=== PATIENT | male | born 1960 | race Caucasian/White ===

== ENCOUNTER 2016-11-22 14:15 | Inpatient (IN) | payer SELFPAY ==
[2016-11-22] VITALS (12 sets, daily range): BP systolic 107–148; BP diastolic 59–78; PULSE 86–105; RESP 18; TEMP 97.5–100.8; O2SAT 98–100
[~2016-11-22] VITALS: Ht 182.9 cm; Wt 70.5 kg
[~2016-11-22 14:15] MED LIST: ALBU8I INH; CEPH500C3 PO; LORTA5 PO; METO50 PO; ST J81CH PO
--- NOTE | 2016-11-22 15:13 | PD ---
HPI Chief Complaint: Respiratory Symptoms Time Seen by Provider: 15:13 Travel History International Travel<30 days: No Contact w/Intl Traveler<30days: No Traveled to known affect area: No History of Present Illness HPI 55 YO M with PMH of CAD, CKD presents to the ED for evaluation of 4 week history of increasing weakness and dyspnea on exertion. Patient endorses history of fevers at the beginning of the illness that have since resolved. He endorses low appetite and multiple episodes of watery diarrhea daily. He endorses mild, frontal headache 4 days which is similar to previous headaches. He denies dizziness, vision changes, abdominal pain, nausea, vomiting, dysuria , hematochezia, melena. 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 He denies recent antibiotic use. PFSH Past Medical History Anxiety: Yes Depression: No Cancer: No Cardiovascular Problems: Yes Chest Pain: Yes Endocrine: No Gastrointestinal Disorders: Yes Genitourinary: No Immune Disorder: No Musculoskeletal: No Neurologic: No Psychiatric: No Reproductive: No Respiratory: Yes Immunizations Current: No Past Surgical History AICD: No Cardiac Surgery: Yes (THREE VESSEL BYPASS) Joint Replacement: No Pacemaker: No Social History Alcohol Use: No Tobacco Use: No (MAY 17, 2013) Substance Use: No Allergies-Medications (Allergen,Severity, Reaction): Coded Allergies: No Known Allergies (Unverified , 09/26/13) Reported Meds & Prescriptions Reported Meds & Active Scripts Active Reported B Complex (B-Complex Vitamins) 1 Cap 1 Cap PO DAILY Folic Acid 400 Mcg Tab 400 Mcg PO DAILY Review of Systems Except as stated in HPI: all other systems reviewed are Neg Physical Exam Narrative GENERAL: Chronically ill-appearing white male in no acute distress. SKIN: Focused skin assessment warm/dry. HEAD: Normocephalic. EYES: No scleral icterus. No injection or drainage. NECK: Supple, trachea midline. No JVD or lymphadenopathy. CARDIOVASCULAR: Regular rate and rhythm without murmurs, gallops, or rubs. RESPIRATORY: Breath sounds clear and equal bilaterally. No accessory muscle use. GASTROINTESTINAL: Abdomen soft, non-tender, nondistended. Active bowel sounds. RECTAL EXAM: No masses or tenderness, stool is brown. Guaiac positive. MUSCULOSKELETAL: No cyanosis, or edema. BACK: Nontender without obvious deformity. No CVA tenderness. Data Data Last Documented VS Vital Signs Date Time Temp Pulse Resp B/P Pulse Ox O2 Delivery O2 Flow Rate FiO2 11/22/16 15:48 100.8 92 18 148/76 100 Nasal Cannula 2 Orders Complete Blood Count With Diff (11/22/16 14:47) Comprehensive Metabolic Panel (11/22/16 14:47) B-Type Natriuretic Peptide (11/22/16 14:47) Act Partial Throm Time (Ptt) (11/22/16 14:47) Prothrombin Time / Inr (Pt) (11/22/16 14:47) Magnesium (Mg) (11/22/16 14:47) Ckmb (Isoenzyme) Profile (11/22/16 14:47) Troponin I (11/22/16 14:47) Urinalysis - C+S If Indicated (11/22/16 14:47) Blood Culture (11/22/16 14:47) Iv Access Insert/Monitor (11/22/16 14:47) Electrocardiogram (11/22/16 14:47) Ecg Monitoring (11/22/16 14:47) Oximetry (11/22/16 14:47) Chest, Single Ap (11/22/16 14:47) Sodium Chloride 0.9% Flush (Ns Flush) (11/22/16 15:00) Enteric Path (Stool) (11/22/16 14:47) Sodium Chlor 0.9% 1000 Ml Inj (Ns 1000 M (11/22/16 15:30) Urine Culture (11/22/16 15:00) Type And Screen (11/22/16 16:11) Red Blood Cells (Rbc) (11/22/16 16:11) Blood Product Administration .UPON TRANSFUSION (11/22/16 16:11) Sodium Chlor 0.9% 250 Ml Inj (Ns 250 Ml (11/22/16 16:15) Pantoprazole Inj (Protonix Inj) (11/22/16 16:15) Pantoprazole Inj (Protonix Inj) (11/22/16 16:15) Lactic Acid Sepsis Protocol (11/22/16 16:15) Ceftriaxone Inj (Rocephin Inj) (11/22/16 16:15) Azithromycin Inj (Zithromax Inj) (11/22/16 16:15) Acetaminophen (Tylenol) (11/22/16 16:30) CKMB (11/22/16 15:10) CKMB% (11/22/16 15:10) Sodium Chlor 0.9% 1000 Ml Inj (Ns 1000 M (11/22/16 16:27) Sodium Chlor 0.9% 1000 Ml Inj (Ns 1000 M (11/22/16 16:27) Sodium Chlor 0.9% 1000 Ml Inj (Ns 1000 M (11/22/16 16:27) Urinary Catheter Management MIKE.Q8H (11/22/16 16:36) Consult Nephrology (11/22/16 ) Consult Gastroenterology (11/22/16 ) Sodium Bicarbonate 8.4% Inj (Sodium Bica (11/22/16 16:45) Admit Order (Ed Use Only) (11/22/16 17:02) Comprehensive Metabolic Panel (11/22/16 17:03) Complement C3 (11/22/16 17:03) Complement C4 (11/22/16 17:03) Parathyroid Hormone Intact (11/22/16 17:03) Phosphorus (Po4) (11/22/16 17:03) Sodium, Random Urine (11/22/16 17:03) Urine For Eosinophils (11/22/16 17:03) Creatinine, Random Urine (11/22/16 17:03) Us Kidney/Renal/Bladder (11/22/16 ) Labs Laboratory Tests Test 11/22/16 11/22/16 15:00 15:10 Urine Color YELLOW Urine Turbidity HAZY Urine pH 6.0 Urine Specific [place] 1.015 Urine Protein 300 mg/dL Urine Glucose (UA) 300 mg/dL Urine Ketones 10 mg/dL Urine Occult Blood MOD Urine Nitrite NEG Urine Bilirubin NEG Urine Urobilinogen LESS THAN 2.0 MG/DL Urine Leukocyte Esterase NEG Urine RBC 1 /hpf Urine WBC 9 /hpf Urine Squamous Epithelial 1 /hpf Cells Urine Amorphous Sediment MOD Microscopic Urinalysis Comment CULTURE INDICATED White Blood Count 19.2 TH/MM3 Red Blood Count 1.85 MIL/MM3 Hemoglobin 6.1 GM/DL Hematocrit 18.4 % Mean Corpuscular Volume 99.4 FL Mean Corpuscular Hemoglobin 32.7 PG Mean Corpuscular Hemoglobin 32.9 % Concent Red Cell Distribution Width 13.4 % Platelet Count 317 TH/MM3 Mean Platelet Volume 8.7 FL Neutrophils (%) (Auto) 92.7 % Lymphocytes (%) (Auto) 3.0 % Monocytes (%) (Auto) 4.0 % Eosinophils (%) (Auto) 0.0 % Basophils (%) (Auto) 0.3 % Neutrophils # (Auto) 17.8 TH/MM3 Lymphocytes # (Auto) 0.6 TH/MM3 Monocytes # (Auto) 0.8 TH/MM3 Eosinophils # (Auto) 0.0 TH/MM3 Basophils # (Auto) 0.1 TH/MM3 CBC Comment AUTO DIFF Differential Comment AUTO DIFF CONFIRMED Prothrombin Time 11.9 SEC Prothromb Time International 1.1 RATIO Ratio Activated Partial 33.4 SEC Thromboplast Time Sodium Level 137 MEQ/L Potassium Level 3.2 MEQ/L Chloride Level 102 MEQ/L Carbon Dioxide Level 13.0 MEQ/L Anion Gap 22 MEQ/L Blood Urea Nitrogen 100 MG/DL Creatinine 16.71 MG/DL Estimat Glomerular Filtration 3 ML/MIN Rate Random Glucose 103 MG/DL Calcium Level 8.0 MG/DL Magnesium Level 2.1 MG/DL Total Bilirubin 0.3 MG/DL Aspartate Amino Transf 23 U/L (AST/SGOT) Alanine Aminotransferase 26 U/L (ALT/SGPT) Alkaline Phosphatase 89 U/L Total Creatine Kinase 157 U/L Creatine Kinase MB 2.4 NG/ML Troponin I 0.03 NG/ML Total Protein 6.6 GM/DL Albumin 1.5 GM/DL MDM Medical Decision Making Medical Screen Exam Complete: Yes Emergency Medical Condition: Yes Differential Diagnosis Metabolic derangement versus infectious diarrhea versus pneumonia versus anemia versus other Narrative Course 55-year-old male with PMH of COPD presents to the ED for evaluation of 4 week history of increased weakness, shortness of breath. Patient endorses multiple episodes of watery stool daily. He endorses exposure to C. 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 No recent antibiotic use. Denies melena, hematochezia. He's never had a colonoscopy. Vitals reviewed. Patient is febrile, tachycardic on presentation. Skull exam reveals a dusky, chronically ill-appearing white male in no acute distress. Chest CTAB. Abdomen soft and nontender. No lower extremity edema. Rectal exam guaiac positive. IV was established. Patient was administered 1 L normal saline, Protonix bolus and Protonix drip initiated. Blood cultures drawn. WBC: 19.2 with left shift. Hemoglobin 6.1. Hematocrit 18.4. INR 1.1. CMP: BUN 100, creatinine 16.71. Lactate: pending UA: 9 WBCs, culture pending. EKG: Rate 93, sinus rhythm. HI interval 154, QRS 98, QTC 426. Normal axis. No acute ST changes. Reviewed by Dr. Archer. Cardiac enzymes: Negative 1 CXR: Dense airspace process RIGHT lung, highly suspicious for pneumonia. 2 units packed red blood cells ordered and will be administered in the ED. Sepsis fluid protocol initiated. IV ceftriaxone and Zithromax , PO Tylenol administered. The patient meets severe sepsis criteria due to PNA, GI bleed, SEJAL. I spoke with Dr. Dallas, nephrology, who recommended Herbert insertion and will consult on the patient. GI consult placed. Will admit the patient to the medicine service. Please see medicine and nephro notes for disposition. HemaPrompt Point of Care Internal Pos. & Neg. Controls: Passed Fecal Specimen Occult Blood: Positive Sepsis Criteria SIRS Criteria (2 or more): Heart rate over 90, WBC > 67710, < 4000 or > 10% bands Sepsis Criteria (SIRS+source): Infect source susp/known Severe Sepsis (+one): Acute Oliguria/Renal Failure Zoe Heard Nov 22, 2016 15:13
[2016-11-22] MEDS ORDERED: SODIUM CHLOR 0.9% 1000 ML INJ 1,000 ML IV ONE ×3 (15:30→16:27)
[2016-11-22] MEDS ORDERED: FOLI400T PO (15:45)
[2016-11-22] MEDS ORDERED: VITACAP7 PO (15:45)
[2016-11-22 15:58] LABS: AUTOMATED NEUTROPHIL # 17.8 TH/MM3 (1.8-7.7); BASOPHIL # 0.1 TH/MM3 (0-0.2); BASOPHIL % 0.3 % (0.0-2.0); LYMPHOCYTE # 0.6 TH/MM3 (1.0-4.8); MEAN CELL VOLUME 99.4 FL (80.0-100.0); MEAN CORPUSCULAR HEMOGLOBIN 32.7 PG (27.0-34.0); MEAN CORPUSCULAR HGB CONC 32.9 % (32.0-36.0); NEUT % 92.7 % (16.0-70.0); PLATELET COUNT 317 TH/MM3 (150-450); RED BLOOD COUNT 1.85 MIL/MM3 (4.50-5.90); RED CELL DISTRIBUTION WIDTH 13.4 % (11.6-17.2); WHITE BLOOD COUNT 19.2 TH/MM3 (4.0-11.0)
[2016-11-22 16:05] LABS: BLOOD, URINE MOD (NEG); GLUCOSE,URINE 300 mg/dL (NEG); KETONE, URINE 10 mg/dL (NEG); NITRITE,URINE NEG (NEG); SQUAMOUS EPITHELIAL CELL URINE 1 /hpf (0-5); URINE COLOR YELLOW (YELLW/STRAW)
--- NOTE | 2016-11-22 16:05 | RADRPT ---
EXAM DATE/TIME: 11/22/2016 15:09 [facility] COMPARISON: CHEST SINGLE AP, August 04, 2013, 16:54. INDICATIONS : Chest pain and shortness of breath. MEDICAL HISTORY : Chronic obstructive pulmonary disease. Myocardial infarction. Hypertension. Flail chest. SURGICAL HISTORY : Triple bypass. ENCOUNTER: Initial ACUITY: 1 month PAIN SCORE: 9/10 LOCATION: Bilateral chest FINDINGS: There is dense airspace consolidation in right mid and upper lung extending to the pleural surfaces l aterally not present previously. Background of extensive COPD is seen. There is evidence for prior me tyra sternotomy. Heart and mediastinum are unremarkable for technique. CONCLUSION: Dense airspace process right lung highly suspicious for pneumonia. Obdulia Garcia MD on November 22, 2016 at 16:03 Board Certified Radiologist. This report was verified electronically.
[2016-11-22 16:06] LABS: COMMENT (UR) CULTURE INDICATED; CULTURE IF INDICATED CULTURE INDICATED
[2016-11-22 16:09] LABS: APTT (PATIENT) 33.4 SEC (24.3-30.1); HEMO FLAGS AUTO DIFF; INTERNATIONAL NORMALIZED RATIO 1.1 RATIO; PROTHROMBIN TIME - PATIENT 11.9 SEC (9.8-11.6)
[2016-11-22 16:11] LABS: HEMATOCRIT 18.4 % (39.0-51.0)
[2016-11-22 16:13] LABS: ANION GAP 22 MEQ/L (5-15); AST (GOT) 23 U/L (15-37); BLOOD UREA NITROGEN 100 MG/DL (7-18); CHLORIDE 102 MEQ/L (98-107); GLOMERULAR FILTRATION RATE 3 ML/MIN (>89); MAGNESIUM 2.1 MG/DL (1.5-2.5); POTASSIUM 3.2 MEQ/L (3.5-5.1); SODIUM (NA) 137 MEQ/L (136-145)
[2016-11-22] MEDS ORDERED: PANTOPRAZOLE INJ 80 MG in SODIUM CHLORIDE 0.9% INJ 35 ML IV ONE (16:15)
[2016-11-22] MEDS ORDERED: cefTRIAXone INJ 2,000 MG in SODIUM CHLORIDE 0.9% INJ 100 ML IV STA (16:15)
[2016-11-22] MEDS ORDERED: SODIUM CHLOR 0.9% 250 ML INJ 250 ML IV ONE ×2 (16:15→18:15)
[2016-11-22] MEDS ORDERED: AZITHROMYCIN INJ 500 MG in SODIUM CHLOR 0.9% 250 ML INJ 250 ML IV STA (16:15)
[2016-11-22 16:16] LABS: ALKALINE PHOSPHATASE 89 U/L (45-117); ALT (GPT) 26 U/L (12-78); CREATINE KINASE 157 U/L (39-308); TOTAL BILIRUBIN ADULT 0.3 MG/DL (0.2-1.0)
[2016-11-22] MEDS ORDERED: SODIUM CHLOR 0.9% 1000 ML INJ 400 ML IV ONE (16:27)
[2016-11-22] MEDS ORDERED: ACETAMINOPHEN 325 MG TAB PO ONE (16:30)
[2016-11-22] MEDS ORDERED: SODIUM BICARBONATE 8.4% INJ 50 MEQ/50 ML SYR IV PUSH ONE (16:45)
[2016-11-22 16:46] LABS: CKMB 2.4 NG/ML (0.5-3.6)
[2016-11-22 17:01] LABS: SCAN/DIFF AUTO DIFF CONFIRMED
[2016-11-22] MEDS: PANTOPRAZOLE INJ 80 MG in SODIUM CHLORIDE 0.9% INJ 100 ML IV SCH (17:13)
--- NOTE | 2016-11-22 17:18 | PD ---
Physical Exam Narrative GENERAL: Well-nourished, well-developed patient. Pale SKIN: Warm and dry. HEAD: Normocephalic EYES: No injection or drainage. ENT: No nasal drainage noted. NECK: Supple, trachea midline. CARDIOVASCULAR: Regular rate and rhythm RESPIRATORY: No increased effort. No accessory muscle use. NEUROLOGICAL: Awake and alert. Moves all extremities. Normal speech. Data Data Last Documented VS Vital Signs Date Time Temp Pulse Resp B/P Pulse Ox O2 Delivery O2 Flow Rate FiO2 11/22/16 15:48 100.8 92 18 148/76 100 Nasal Cannula 2 Orders Complete Blood Count With Diff (11/22/16 14:47) Comprehensive Metabolic Panel (11/22/16 14:47) B-Type Natriuretic Peptide (11/22/16 14:47) Act Partial Throm Time (Ptt) (11/22/16 14:47) Prothrombin Time / Inr (Pt) (11/22/16 14:47) Magnesium (Mg) (11/22/16 14:47) Ckmb (Isoenzyme) Profile (11/22/16 14:47) Troponin I (11/22/16 14:47) Urinalysis - C+S If Indicated (11/22/16 14:47) Blood Culture (11/22/16 14:47) Iv Access Insert/Monitor (11/22/16 14:47) Electrocardiogram (11/22/16 14:47) Ecg Monitoring (11/22/16 14:47) Oximetry (11/22/16 14:47) Chest, Single Ap (11/22/16 14:47) Sodium Chloride 0.9% Flush (Ns Flush) (11/22/16 15:00) Enteric Path (Stool) (11/22/16 14:47) Sodium Chlor 0.9% 1000 Ml Inj (Ns 1000 M (11/22/16 15:30) Urine Culture (11/22/16 15:00) Type And Screen (11/22/16 16:11) Red Blood Cells (Rbc) (11/22/16 16:11) Blood Product Administration .UPON TRANSFUSION (11/22/16 16:11) Sodium Chlor 0.9% 250 Ml Inj (Ns 250 Ml (11/22/16 16:15) Pantoprazole Inj (Protonix Inj) (11/22/16 16:15) Pantoprazole Inj (Protonix Inj) (11/22/16 16:15) Lactic Acid Sepsis Protocol (11/22/16 16:15) Ceftriaxone Inj (Rocephin Inj) (11/22/16 16:15) Azithromycin Inj (Zithromax Inj) (11/22/16 16:15) Acetaminophen (Tylenol) (11/22/16 16:30) CKMB (11/22/16 15:10) CKMB% (11/22/16 15:10) Sodium Chlor 0.9% 1000 Ml Inj (Ns 1000 M (11/22/16 16:27) Sodium Chlor 0.9% 1000 Ml Inj (Ns 1000 M (11/22/16 16:27) Sodium Chlor 0.9% 1000 Ml Inj (Ns 1000 M (11/22/16 16:27) Urinary Catheter Management MIKE.Q8H (11/22/16 16:36) Consult Nephrology (11/22/16 ) Consult Gastroenterology (11/22/16 ) Sodium Bicarbonate 8.4% Inj (Sodium Bica (11/22/16 16:45) Admit Order (Ed Use Only) (11/22/16 17:02) Comprehensive Metabolic Panel (11/22/16 17:03) Complement C3 (11/22/16 17:03) Complement C4 (11/22/16 17:03) Parathyroid Hormone Intact (11/22/16 17:03) Phosphorus (Po4) (11/22/16 17:03) Sodium, Random Urine (11/22/16 17:03) Urine For Eosinophils (11/22/16 17:03) Creatinine, Random Urine (11/22/16 17:03) Us Kidney/Renal/Bladder (11/22/16 ) Labs Laboratory Tests Test 11/22/16 11/22/16 11/22/16 15:00 15:10 16:50 Urine Color YELLOW Urine Turbidity HAZY Urine pH 6.0 Urine Specific [place] 1.015 Urine Protein 300 mg/dL Urine Glucose (UA) 300 mg/dL Urine Ketones 10 mg/dL Urine Occult Blood MOD Urine Nitrite NEG Urine Bilirubin NEG Urine Urobilinogen LESS THAN 2.0 MG/DL Urine Leukocyte Esterase NEG Urine RBC 1 /hpf Urine WBC 9 /hpf Urine Squamous Epithelial 1 /hpf Cells Urine Amorphous Sediment MOD Microscopic Urinalysis Comment CULTURE INDICATED White Blood Count 19.2 TH/MM3 Red Blood Count 1.85 MIL/MM3 Hemoglobin 6.1 GM/DL Hematocrit 18.4 % Mean Corpuscular Volume 99.4 FL Mean Corpuscular Hemoglobin 32.7 PG Mean Corpuscular Hemoglobin 32.9 % Concent Red Cell Distribution Width 13.4 % Platelet Count 317 TH/MM3 Mean Platelet Volume 8.7 FL Neutrophils (%) (Auto) 92.7 % Lymphocytes (%) (Auto) 3.0 % Monocytes (%) (Auto) 4.0 % Eosinophils (%) (Auto) 0.0 % Basophils (%) (Auto) 0.3 % Neutrophils # (Auto) 17.8 TH/MM3 Lymphocytes # (Auto) 0.6 TH/MM3 Monocytes # (Auto) 0.8 TH/MM3 Eosinophils # (Auto) 0.0 TH/MM3 Basophils # (Auto) 0.1 TH/MM3 CBC Comment AUTO DIFF Differential Comment AUTO DIFF CONFIRMED Prothrombin Time 11.9 SEC Prothromb Time International 1.1 RATIO Ratio Activated Partial 33.4 SEC Thromboplast Time Sodium Level 137 MEQ/L Potassium Level 3.2 MEQ/L Chloride Level 102 MEQ/L Carbon Dioxide Level 13.0 MEQ/L Anion Gap 22 MEQ/L Blood Urea Nitrogen 100 MG/DL Creatinine 16.71 MG/DL Estimat Glomerular Filtration 3 ML/MIN Rate Random Glucose 103 MG/DL Calcium Level 8.0 MG/DL Magnesium Level 2.1 MG/DL Total Bilirubin 0.3 MG/DL Aspartate Amino Transf 23 U/L (AST/SGOT) Alanine Aminotransferase 26 U/L (ALT/SGPT) Alkaline Phosphatase 89 U/L Total Creatine Kinase 157 U/L Creatine Kinase MB 2.4 NG/ML Troponin I 0.03 NG/ML Total Protein 6.6 GM/DL Albumin 1.5 GM/DL Lactic Acid Level 1.2 mmol/L [facility] Supervised Visit with ROYA: Yes Interpretation(s) CBC & BMP Diagram 11/22/16 15:10 Last 24 hours Impressions Chest X-Ray 11/22/16 [id number] Signed Impressions: Service Date/Time: Tuesday, November 22, 2016 15:09 - CONCLUSION: Dense airspace process right lung highly suspicious for pneumonia. Obdulia Gacria MD Narrative Course I, Dr. archer, have reviewed the advance practice practitioner's documentation and am in agreement, met with the patient face to face, made the diagnosis, and the medical decision making was done by me. *My assessment and Findings: 55 y/o male presents with weakness and diarrhea with ill feeling this been progressive over the past couple of weeks. Workup reveals leukocytosis, critical anemia, acute renal failure, hypokalemia, chest x -ray with beginning of pneumonia. He was given antibiotics, IV fluids, packed red blood cells and he will be admitted to the hospital with nephrology consultation Critical Care Narrative Aggregate critical care time was 35 minutes. Time to perform other separately billable procedures was not included in the critical care time. My time did not include minutes spent treating any other patients simultaneously or on activities that did not directly contribute to the patient's treatment. The services I provided to this patient were to treat and/or prevent clinically significant deterioration that could result in: Shock, I provided critical care services requiring my management, as noted below: Chart data review, documentation time, medication orders and management, vital sign assessments/reviewing monitor data, ordering and reviewing lab tests, ordering and interpreting/reviewing x-rays and diagnostic studies, care of the patient and discussion of the patient with the admitting physicians. Sepsis Criteria SIRS Criteria (2 or more): Heart rate over 90, WBC > 05080, < 4000 or > 10% bands Sepsis Criteria (SIRS+source): Infect source susp/known Severe Sepsis (+one): Acute Oliguria/Renal Failure Criteria Outcome: Meets severe sepsis criteria Diagnosis Primary Impression: Sepsis Qualified Code: A41.9 - Sepsis, due to unspecified organism Additional Impressions: Pneumonia Qualified Code: J18.9 - Pneumonia of right lung due to infectious organism, unspecified part of lung Acute renal failure Qualified Code: N17.9 - Acute renal failure, unspecified acute renal failure type Hypokalemia Anemia Qualified Code: D64.9 - Anemia, unspecified type GI bleed Qualified Code: K92.2 - Gastrointestinal hemorrhage, unspecified gastrointestinal hemorrhage type Admitting Information Admitting Physician Requests: Admit Cayla Archer MD Nov 22, 2016 17:18
[2016-11-22] MEDS ORDERED: SODIUM BICARBONATE 8.4% INJ 50 MEQ/50 ML SYR ONE (17:23)
--- NOTE | 2016-11-22 17:48 | RADRPT ---
EXAM DATE/TIME: 11/22/2016 17:14 [facility] COMPARISON: US KIDNEY/RENAL/BLADDER, May 18, 2013, 9:00. INDICATIONS : Increased BUN/ Creatnine. MEDICAL HISTORY : Myocardial infarction. Hypertension. COPD. Osteoporosis. Anxiety. SURGICAL HISTORY : Three vessel bypass. ENCOUNTER: Initial ACUITY: 1 day PAIN SCORE: 0/10 LOCATION: Bilateral flank MEASUREMENTS: RIGHT KIDNEY: 11.8 x 4.9 x 5.2 cm LEFT KIDNEY: 11.3 x 5.3 x 5.1 cm FINDINGS: There is no hydronephrosis in the left kidney, however the right kidney demonstrates mild pelvocaliec tasis. No definite solid mass is identified. No definite stone is identified for technique. The tameka dder is grossly intact for technique and not being completely distended during the exam. CONCLUSION: Mild pelvocaliectasis right kidney not present previously. Obdulia Garcia MD on November 22, 2016 at 17:44 Board Certified Radiologist. This report was verified electronically.
[2016-11-22] MEDS ORDERED: SODIUM CHLOR 0.9% 1000 ML INJ 1,000 ML IV SCH (17:49)
--- NOTE | 2016-11-22 17:49 | HHI.HP ---
[facility] Service [facility] Primary Care Physician No Primary Care Physician Admission Diagnosis acute renal failure, anemia, sepsis Diagnoses: (1) Sepsis Diagnosis: Principal (2) Acute renal failure Diagnosis: Principal (3) Pneumonia Diagnosis: Principal (4) Coronary artery disease Diagnosis: Secondary (5) Anemia Diagnosis: Secondary (6) Hematochezia Diagnosis: Principal (7) Hypokalemia Diagnosis: Secondary Chief Complaint: Fevers, dyspnea and fatigue Travel History International Travel<30 Days: No Contact w/Intl Traveler <30 Da: No Traveled to Known Affected Are: No Sepsis Criteria SIRS Criteria (2 or more): Heart rate over 90, WBC > 96387, < 4000 or > 10% bands Sepsis Criteria (SIRS+source): Infect source susp/known Severe Sepsis (+one): Organ Dysfunction, Acute Oliguria/Renal Failure Criteria Outcome: Meets sepsis criteria History of Present Illness Mr. Fonseca is a 55-year-old male patient with a known medical history of CAD, CKD, COPD and history of CABG who presented to the ED with complaints of increasing dyspnea, generalized weakness, fevers and frequent diaphoresis x 2 weeks. Patient states he noticed the fevers and worsening dyspnea begin 2 weeks ago with increasing congestion, associated cough and presence of clear colored phlegm. Denies seeing a PCP on the outpatient basis or any recent antibiotic use. Denies taking anything to relieve his fevers. Does state he has lost over 10-15 pounds within the last 3 weeks due to poor appetite and intake. Denies any associated nausea or vomiting. Patient states that he has also has complaints of diarrhea x 3 weeks. Admits to presence of hemorrhoids with noticeable associated bright, red colored blood in stool x 1 week. Denies any melena. Patient has been taking care of a family member for the past couple weeks with known, active c difficile infection. Denies any recent headache, lightheadedness, or dysuria. It should be noted that patient was here in 2013 with cardiac arrest and underwent a CABG by Dr. Edwards. Does not have a PCP. Denies any previous EGD or colonoscopy. Patient has not seen a physician in an extended period of time probably since his discharge Review of Systems Constitutional: COMPLAINS OF: Diaphoretic episodes, Fever, Chills, Change in appetite, Night Sweats Endocrine: DENIES: Polydipsia, Polyuria, Polyphagia Eyes: DENIES: Eye pain, Vision loss Ears, nose, mouth, throat: DENIES: Throat pain, Ear Pain, Sinus Pain Respiratory: COMPLAINS OF: Cough, Sputum production, Shortness of breath, DENIES: Snoring, Hemoptysis Cardiovascular: COMPLAINS OF: Dyspnea on Exertion, DENIES: Chest pain, Lower Extremity Edema Gastrointestinal: COMPLAINS OF: Bloody stools, Diarrhea, DENIES: Black stools , Nausea Genitourinary: DENIES: Urinary frequency Psychiatric: DENIES: Anxiety Except as stated in HPI: all other systems reviewed are Neg Past Family Social History Past Medical History Anxiety CAD with CABG 2013 COPD Tobacco history Past Surgical History CABG 2013 Reported Medications Active Reported B Complex (B-Complex Vitamins) 1 Cap 1 Cap PO DAILY Folic Acid 400 Mcg Tab 400 Mcg PO DAILY Allergies: Coded Allergies: No Known Allergies (Unverified , 09/26/13) Active Ordered Medications Current Medications Medications (Trade) Dose Ordered Sig/Edwin Route Start Time Stop Time Status Last Admin Sodium Chloride 2 ml 2 ml UNSCH PRN IVF 11/22/16 15:00 Sodium Chloride 250 ml @ 15 mls/hr ONCE ONCE IV 11/22/16 16:15 11/23/16 08:54 Pantoprazole Sodium 80 mg/ Sodium Chloride 100 ml @ 10 mls/hr Q10H IV 11/22/16 16:15 11/22/16 17:13 Sodium Chloride 1,000 ml @ 1,000 mls/hr Q1H ONCE IV 11/22/16 16:27 11/22/16 17:26 (NS 1000 ml Inj) 1,000 ml @ 1,000 mls/hr Q1H ONCE IV 11/22/16 16:27 11/22/16 17:26 Family History Paternal family medical history significant for cardiovascular disease all related to tobacco use. Social History Patient denies any current tobacco use, states he quit in 2013. Denies any alcohol use. Denies any illicit drug use. Physical Exam Vital Signs Vital Signs Date Time Temp Pulse Resp B/P Pulse Ox O2 Delivery O2 Flow Rate FiO2 11/22/16 17:15 98 18 148/76 100 Nasal Cannula 2 11/22/16 15:48 100.8 92 18 148/76 100 Nasal Cannula 2 11/22/16 15:38 98 18 100 Room Air 11/22/16 15:35 18 100 Nasal Cannula 2 11/22/16 14:18 97.6 105 18 128/78 100 Room Air Physical Exam GENERAL: Well-developed, cachexic male patient in apparent discomfort, abdominal breathing. On supplemental O2. SKIN: No rashes. Cool and dry. Pale in color. HEAD: Atraumatic. Normocephalic. Pupils equal round and reactive. Extraocular motions intact. No scleral icterus. No injection or drainage. Nose without bleeding. Airway patent. Tongue is midline NECK: Trachea midline. No JVD. Supple. CARDIOVASCULAR: Tachycardic. No murmurs, gallops, or rubs. S1 and S2 present, no S3 or S4. No thrill RESPIRATORY: Diminished breath sounds throughout, equal bilaterally. No wheezes , rales, or rhonchi. GASTROINTESTINAL: Abdomen soft, non-tender, nondistended. No guarding. Olm[place] catheter in place MUSCULOSKELETAL: Extremities without clubbing, cyanosis, or edema. No joint tenderness, effusion, or edema noted. NEUROLOGICAL: Awake and alert. Cranial nerves II through XII intact. Motor and sensory grossly within normal limits. Five out of 5 muscle strength in all muscle groups. Normal speech. Insight and judgment is poor Mood and behaviors appropriate Laboratory Laboratory Tests Test 11/22/16 11/22/16 15:00 15:10 Urine Color YELLOW Urine Turbidity HAZY Urine pH 6.0 Urine Specific [place]arrass 1.015 Urine Protein 300 Urine Glucose (UA) 300 Urine Ketones 10 Urine Occult Blood MOD Urine Nitrite NEG Urine Bilirubin NEG Urine Urobilinogen LESS THAN 2.0 Urine Leukocyte Esterase NEG Urine RBC 1 Urine WBC 9 Urine Squamous Epithelial 1 Cells Urine Amorphous Sediment MOD Microscopic Urinalysis Comment CULTURE INDICATED White Blood Count 19.2 Red Blood Count 1.85 Hemoglobin 6.1 Hematocrit 18.4 Mean Corpuscular Volume 99.4 Mean Corpuscular Hemoglobin 32.7 Mean Corpuscular Hemoglobin 32.9 Concent Red Cell Distribution Width 13.4 Platelet Count 317 Mean Platelet Volume 8.7 Neutrophils (%) (Auto) 92.7 Lymphocytes (%) (Auto) 3.0 Monocytes (%) (Auto) 4.0 Eosinophils (%) (Auto) 0.0 Basophils (%) (Auto) 0.3 Neutrophils # (Auto) 17.8 Lymphocytes # (Auto) 0.6 Monocytes # (Auto) 0.8 Eosinophils # (Auto) 0.0 Basophils # (Auto) 0.1 CBC Comment AUTO DIFF Differential Comment AUTO DIFF CONFIRMED Prothrombin Time 11.9 Prothromb Time International 1.1 Ratio Activated Partial 33.4 Thromboplast Time Sodium Level 137 Potassium Level 3.2 Chloride Level 102 Carbon Dioxide Level 13.0 Anion Gap 22 Blood Urea Nitrogen 100 Creatinine 16.71 Estimat Glomerular Filtration 3 Rate Random Glucose 103 Calcium Level 8.0 Magnesium Level 2.1 Total Bilirubin 0.3 Aspartate Amino Transf 23 (AST/SGOT) Alanine Aminotransferase 26 (ALT/SGPT) Alkaline Phosphatase 89 Total Creatine Kinase 157 Creatine Kinase MB 2.4 Troponin I 0.03 Total Protein 6.6 Albumin 1.5 Date/Time Procedure Status Source Growth 11/22/16 15:20 Aerobic Blood Culture Received Blood Peripheral Pending 11/22/16 15:20 Anaerobic Blood Culture Received Blood Peripheral Pending 11/22/16 15:00 Urine Culture Received Urine Clean Catch Pending Result Diagram: 11/22/16 1510 11/22/16 1510 Imaging Last Impressions Chest X-Ray 11/22/16 1447 Signed Impressions: Service Date/Time: Tuesday, November 22, 2016 15:09 - CONCLUSION: Dense airspace process right lung highly suspicious for pneumonia. Obdulia Garcia MD Septic Shock Reassessment Lungs: Diminished Skin: Cold Peripheral Pulses: Bounding Right Radial Bounding Left Radial Capillary Refill: Brisk Assessment and Plan Problem List: (1) Sepsis ICD Code: A41.9 Status: Acute (2) Acute renal failure ICD Code: N17.9 Status: Acute (3) GI bleed ICD Code: K92.2 Status: Acute (4) Pneumonia ICD Code: J18.9 Status: Acute (5) Anemia ICD Code: D64.9 Status: Acute (6) Hematochezia ICD Code: K92.1 Status: Acute (7) Hypokalemia ICD Code: E87.6 Status: Acute Assessment and Plan Mr. Fonseca is a 55-year-old male patient with a known medical history of CAD, CKD, COPD and history of CABG who presented to the ED with complaints of increasing dyspnea, weakness, fevers and frequent diaphoresis. Fever 100.8, WBC 19.1, bandemia 92.7, hbg 6.1/hct 18.4, k 3.2, creatinine 16.7, lactic acid 1.2 , c02 13, UA WBC 9. Sepsis suspect secondary to right multilobular pneumonia vs UTI (leukocytosis 19.2, bandemia 92.7, fever 100.8, tachycardia) - Will place in ICU for closer monitoring. - WBC upon presentation 19.2. Febrile 100.8. Lactic acid 1.2. - CXR reviewed showing suspicion for right lung pneumonia. - Blood cultures pending. Follow. UA showing increase in WBCs. Culture pending, await growth, follow. - Status post 4 L NS bolus in ED. - Azithromycin and Ceftriaxone IV x 1 given in ED. - Start on Zosyn 2.25 mg IV q8hr and Vanco 1 g x 1, consult pharmacy to dose. Acute kidney failure suspect secondary to severe dehydration vs UTI - Creatinine on presentation 16.7. Nephrology consulted, appreciate input. - Carbon dioxide 13. Will start bicarb drip 125 ml/hr. Hydrate. - OLMSTEAD CATHETER placed. Close I & O monitoring. - US kidney/renal/bladder ordered and reviewed showing mild pelvocaliectasis right kidney. Hypokalemia suspect secondary to diarrhea: K 3.2 on presentation. Will replace. Normochromic, normocytic anemia suspect secondary to acute blood loss/ hematochezia Diarrhea - Hemoglobin 6.1/[id number] on presentation. Guaiac positive. - Transfuse total of 3 unit PRBC. Trend H&H. Follow. - Place on Protonix drip. - Consult GI, appreciate input. - C. difficile specimen and stool studies ordered suspicion for infection. Follow. Chronic obstructive pulmonary disease - Continue scheduled and PRN duonebs. - Supplemental O2 to keep sats >88%. -Abnormal chest x-ray Hypoalbuminemia suspect secondary to poor PO intake Severe emancipation - States a 15 pound weight loss in the past 3 weeks. - Will order CRP, sed rate, PSA, CEA, and JULIANN to determine presence of any malignancy. Follow. DVT Prophylaxis: SCDs/TEDs. Hold chemical prophylaxis for now due to possibly GI bleed with anemia. The exam, history, and the medical decision-making described in the above note were completed with the assistance of the mid-level provider. I reviewed and agree with the findings presented. I attest that I had a [id number] encounter with the patient on the same day, and personally performed and documented my assessment and findings in the medical record. Code Status Full code Discussed Condition With Patient seen and examined with nurse practitioner as well as emergency room physician and ER physician discussed with all Physician Certification 2 Midnight Certification Type: Admission for Inpatient Services Order for Inpatient Services The services are ordered in accordance with Medicare regulations or non- Medicare payer requirements, as applicable. In the case of services not specified as inpatient-only, they are appropriately provided as inpatient services in accordance with the 2-midnight benchmark. Estimated LOS (days): 4 4 days is the estimated time the patient will need to remain in the hospital, assuming treatment plan goals are met and no additional complications. Post-Hospital Plan: Home Problem Qualifiers (1) Sepsis: Qualified Code: A41.9 - Sepsis, due to unspecified organism (2) Acute renal failure: Qualified Code: N17.9 - Acute renal failure, unspecified acute renal failure type (3) Pneumonia: Qualified Code: J18.9 - Pneumonia of right lung due to infectious organism, unspecified part of lung (4) Anemia: Qualified Code: D64.9 - Anemia, unspecified type (5) GI bleed: Qualified Code: K92.2 - Gastrointestinal hemorrhage, unspecified gastrointestinal hemorrhage type Rafia Logan Nov 22, 2016 17:49 Orlin Lee DO Nov 22, 2016 19:05
[2016-11-22] MEDS ORDERED: MAGNESIUM HYDROXIDE SUSP 30 ML CUP PO PRN (18:00)
[2016-11-22] MEDS ORDERED: ACETAMINOPHEN 325 MG TAB PO PRN (18:00)
[2016-11-22] MEDS ORDERED: ONDANSETRON HCL 4 MG/2 ML VIAL IVP PRN (18:00)
[2016-11-22] MEDS ORDERED: POTASSIUM CHLORIDE 25 MEQ EFFERVESCENT TAB PO ONE (18:15)
[2016-11-22] MEDS ORDERED: Vancomycin Consult Pharmacy 1 EA OTHER SCH (18:30)
[2016-11-22 18:49] LABS: BLOOD GAS BASE EXCESS -15.3 mmol/L (-2-2); BLOOD GAS CARBOXYHEMOGLOBIN 1.1 % (0-4); BLOOD GAS HCO3 10 mmol/L (22-26); BLOOD GAS METHEMOGLOBIN 0.8 % (0-2); BLOOD GAS O2 HGB SATURATION 94 % (90-100); BLOOD GAS OXYGEN CONTENT 10.2 Vol % (12.0-20.0); BLOOD GAS PCO2 22 mmHg (38-42); BLOOD GAS PO2 97 mmHG (61-120); BLOOD GAS TOTAL HGB 7.6 G/DL (12.0-16.0); TEMP CORR TO 98.6
[2016-11-22 18:50] LABS: CRITICAL VALUE YES; LITER FLOW 2 L/M; OXYGEN DEVICE NASAL CANNULA
[2016-11-22 18:51] LABS: DRAW SITE RT RADIAL; NUMBER OF ARTERIAL PUNCTURES 1; STAT YES; ULNAR PULSE PRESENT
[2016-11-22] MEDS ORDERED: SODIUM BICARBONATE 8.4% INJ 50 MEQ in SODIUM CHLOR 0.9% 1000 ML INJ 1,000 ML IV SCH (19:00)
[2016-11-22] MEDS ORDERED: VANCOMYCIN INJ 1,000 MG in SODIUM CHLOR 0.9% 250 ML INJ 250 ML IV ONE (19:00)
[2016-11-22] MEDS: PIPERACIL-TAZO 2.25 GM PREMIX 50 ML IV SCH (20:25)
[2016-11-22] MEDS: DOCUSATE SODIUM 50 MG/SENNA 8.6 MG TAB PO SCH (21:00)
[2016-11-22] MEDS: RESP: ALBUTEROL 2.5 MG/IPRATROPIUM 0.5 MG NEB (SCH) NEB (21:02)
--- NOTE | 2016-11-22 21:15 | MB ---
cc: SHARRI RANDLE MD DATE OF CONSULTATION 11/22/16 REASON FOR CONSULTATION Acute renal failure management. HISTORY OF PRESENT ILLNESS This is a 55-year-old male with a history of CAD as well as chronic kidney disease, chronic obstructive pulmonary disease and previous coronary artery bypass graft. The patient was previously here at [facility] in 2013 when he had a cardiac arrest and coronary artery bypass graft. At that time, his creatinine ranged between 1.8 to 3.7. He was discharged with a creatinine of 2.0 in July of 2013. After that, he reports he has not followed up with any physicians. The patient apparently has been feeling weak at home for several weeks with fever and diaphoresis as well as diarrhea. He apparently has had bright red blood per rectum for one week as well. The patient apparently has had ongoing diarrhea and came to the ER for evaluation. Here the patient was found to have significant anemia with hemoglobin of six. He was found to have significant volume depletion and presented here with a creatinine of 16. At the time of presentation, his blood pressure is actually stable at 128/78. The patient was aggressively started on IV fluids. Imaging here also revealed findings of a questionable pneumonia and the patient has potentially a UTI per the urinalysis as well. He was started on antibiotics with Zosyn as well as vancomycin and has been receiving IV fluids here. He has significant acidosis with a bicarbonate level of 13 and bicarbonate was ordered with IV fluids. His potassium was slightly low at 3.2 and he was given 25 mEq of potassium. At this time, the patient has not had any further bleeding episodes here. However, he is being monitored in the ER and is being planned for transfer to the ICU. He is actually resting in bed comfortably and reports feeling somewhat better since his admission here and nephrology was consulted for further evaluation. REVIEW OF SYSTEMS The patient reports having fevers and chills at home for several weeks with malaise and poor p.o. intake and absolutely minimal fluid intake. He has also had ongoing diarrhea with bright right red blood per rectum. He denies any chest pains or shortness of breath otherwise, no dizziness. However, he has been fatigued. Review of systems otherwise negative. The patient does also report having a 10-15 pound weight loss. PAST MEDICAL HISTORY 1. Anxiety, 2. CAD with coronary artery bypass graft in 2013 3. COPD, 4. Tobacco history 5. Apparent baseline creatinine was near 2 in 2013 PAST SURGICAL HISTORY Coronary artery bypass graft in 2013 MEDICATIONS At home, 1. Vitamins. 2. Folic acid The patient has not followed up with any physicians. ALLERGIES No known allergies. FAMILY HISTORY History of cardiovascular disease, all related to tobacco use. SOCIAL HISTORY No current tobacco use, quit smoking 2013. No alcohol use. No drug use. The patient lives at home with his brother. PHYSICAL EXAMINATION VITAL SIGNS: At time of evaluation, temperature 99, T-max was 100.8, pulse 90, respiratory rate 18, blood pressure 128/76, pulse ox 98% on 2 liters nasal cannula. GENERAL: Awake, alert, oriented, HEENT/NECK: Pale conjunctivae. Neck soft supple. CARDIAC: Regular rate and rhythm. PULMONARY: Lungs clear to auscultation. Decreased breath sounds at bases. ABDOMEN: Soft, mild tenderness. EXTREMITIES: No edema. LABORATORY FINDINGS Sodium 137, potassium 3.2, chloride 102, bicarb 13, BUN 100, creatinine 16.7, glucose of 103, calcium 8.0, magnesium 2.1, albumin 1.5, CK 157, troponin 0.03. White count 19.2, hemoglobin 6.1, hematocrit 18.4, platelet count 317. Urinalysis with recent 300 protein, 300 glucose, 10 ketones, moderate blood, nine WBCs, one epithelial, urine creatinine 94.6. Urine sodium 22. ASSESSMENT/PLAN 1. Acute kidney injury. The patient's last creatinine level of 2.0 in July of 2013. He has not followed up with any physician since that time. He presented here with significant renal failure with a creatinine of 16.7. At this point, I suspect much of his renal injury may be due to volume depletion with an element of potential ATN. He had a renal ultrasound with 11.3 and 11.8 cm kidneys with a relatively normal echogenicity. The ultrasound did show some mild right-sided pelvic calcium, however, no obstructive stones noted. Given the size of his kidneys, I suspect he may have actually relatively normal renal function, however, it is difficult to ascertain without any recent lab work. His FENa was 2.7 which is consistent with possible ATN. However, he is making some urine output at this time. His presentation is with severe volume depletion with poor p.o. intake. At this point, continue with aggressive IV fluids. We will give IV fluids with bicarbonate at 150 cc/hour. The patient is making some urine output at this time. Volume status is otherwise stable and there is no signs of any volume overload. He is actually quite dry and emaciated. We will check serologies as well and repeat a UA. 300 protein were reported on the initial urinalysis. If this is consistently high on a repeat urinalysis, we will further assess protein to creatinine ratio. The patient's CK and troponins and cardiac indices are otherwise normal. Continue with aggressive fluid repletion and monitor for improvement. This is likely volume depletion in the setting of diarrhea with poor p.o. intake with possible development of ATN. 2. Acidosis. Bicarbonate level of 13. Significant acidosis consistent with GI losses from diarrhea as well as renal failure. At this point, continue with D5W with 150 mEq of sodium bicarbonate at 150 cc/hour. Continue to monitor for any improvement. His blood pressure is otherwise stable. 3. Hypokalemia. The patient had potassium 3.2. This is likely due to poor p.o. intake. This was repleted with 25 mEq of potassium. Continue to monitor closely given renal failure. Should he have increase in urine output, he may need further potassium supplementation. However, continue to closely monitor at this time. 4. Sepsis. Patient with low grade fever with apparent pneumonia per chest x-ray and questionable UTI. He has been started on Zosyn as well as vancomycin per the primary team. Caution with vancomycin given renal failure. He was given one dose. Continue to follow closely and follow speciation of blood cultures. 5. GI bleed. The patient presented with history of bright red blood per rectum. He has a hemoglobin of six. Continue to follow up with GI and Protonix drip has been started. The patient has also had recent C. Diff contacts at home as well. Stool cultures are pending at this time. 5. Anemia. The patient has a hemoglobin of six. Transfusion has been ordered. Continue supportive care. Continue with aggressive IV fluids. MD CHARLA Nesbitt/ /8:37 PM /8:49 PM GUN[facility]AR
[2016-11-22] MEDS ORDERED: RESP: ALBUTEROL 2.5 MG/IPRATROPIUM 0.5 MG NEB (SCH) NEB (22:00)
[2016-11-22 22:59] LABS: C. DIFF EPI 027 PRESUMPTIVE NEGATIVE (NEGATIVE)
[2016-11-22] MEDS: SODIUM BICARBONATE 8.4% INJ 150 MEQ in DEXTROSE 5% IN WATE 1000ML INJ 1,000 ML IV SCH ×2 (23:09)
[2016-11-23] VITALS (9 sets, daily range): BP systolic 121–145; BP diastolic 65–82; PULSE 89–100; RESP 16–20; TEMP 97.8–98.2; O2SAT 91–100
[2016-11-23] MEDS: PANTOPRAZOLE INJ 80 MG in SODIUM CHLORIDE 0.9% INJ 100 ML IV SCH ×3 (02:20→21:35)
[2016-11-23] MEDS: PIPERACIL-TAZO 2.25 GM PREMIX 50 ML IV SCH ×2 (04:20→12:30)
[2016-11-23] MEDS: SODIUM BICARBONATE 8.4% INJ 150 MEQ in DEXTROSE 5% IN WATE 1000ML INJ 1,000 ML IV SCH ×6 (05:41→21:29)
[2016-11-23 05:48] LABS: AUTOMATED NEUTROPHIL # 15.6 TH/MM3 (1.8-7.7); BASOPHIL # 0.1 TH/MM3 (0-0.2); BASOPHIL % 0.3 % (0.0-2.0); EOSINOPHIL # 0.1 TH/MM3 (0-0.4); EOSINOPHIL % 0.4 % (0.0-4.0); HEMATOCRIT 23.2 % (39.0-51.0); LYMPH % 2.9 % (9.0-44.0); LYMPHOCYTE # 0.5 TH/MM3 (1.0-4.8); MEAN CORPUSCULAR HEMOGLOBIN 32.5 PG (27.0-34.0); MEAN CORPUSCULAR HGB CONC 34.6 % (32.0-36.0); MONO % 3.5 % (0.0-8.0); NEUT % 92.9 % (16.0-70.0); PLATELET COUNT 298 TH/MM3 (150-450); RED BLOOD COUNT 2.47 MIL/MM3 (4.50-5.90); WHITE BLOOD COUNT 16.9 TH/MM3 (4.0-11.0)
[2016-11-23 05:56] LABS: HEMO FLAGS AUTO DIFF
[2016-11-23 06:44] LABS: ALKALINE PHOSPHATASE 79 U/L (45-117); ALT (GPT) 20 U/L (12-78); ANION GAP 20 MEQ/L (5-15); AST (GOT) 22 U/L (15-37); BICARBONATE 12.4 MEQ/L (21.0-32.0); CALCIUM-PROTEIN CORRECTED 8.1 MG/DL (8.5-10.1); CHLORIDE 110 MEQ/L (98-107); GLOMERULAR FILTRATION RATE 3 ML/MIN (>89); MAGNESIUM 1.9 MG/DL (1.5-2.5); POTASSIUM 3.3 MEQ/L (3.5-5.1); SODIUM (NA) 142 MEQ/L (136-145); TOTAL BILIRUBIN ADULT 0.4 MG/DL (0.2-1.0); TOTAL PROTEIN SPE 5.8 GM/DL (6.0-7.6)
[2016-11-23 06:57] LABS: PLATELET ESTIMATE SMEAR NORMAL (NORMAL); PLATELET MORPHOLOGY NORMAL (NORMAL); SCAN/DIFF AUTO DIFF CONFIRMED
[2016-11-23 07:06] LABS: BLOOD UREA NITROGEN 101 MG/DL (7-18)
[2016-11-23] MEDS ORDERED: POTASSIUM CHLORIDE 10 MEQ CONTROLLED RELEASE TAB PO ONE (07:45)
[2016-11-23] MEDS: RESP: ALBUTEROL 2.5 MG/IPRATROPIUM 0.5 MG NEB (SCH) NEB ×4 (08:00→21:39)
[2016-11-23] MEDS: DOCUSATE SODIUM 50 MG/SENNA 8.6 MG TAB PO SCH ×2 (08:50→21:29)
[2016-11-23 12:47] LABS: HEMOGLOBIN A1a 0.9 %; HEMOGLOBIN A1b 1.1 %; HEMOGLOBIN F 1.1 %; HEMOGLOBIN LA1C 2.2 %; HEMOGLOBIN P3 5.9 %
[2016-11-23 12:48] LABS: HEMOGLOBIN Ao 83.9 %
--- NOTE | 2016-11-23 15:03 | HHI.PR ---
Subjective Remarks Follow-up for acute renal failure and possible GI bleed Patient denies any GI bleed. He is asking if he can drink fluid. He does not understand why cannot eat. Patient stated he is very thirsty. He stated that when he drinks he has good urine output. Otherwise he denies any pain but stated that he just feels awful all over. Has no other acute events. Dealt with patient's nurse. Objective Vitals Vital Signs Date Time Temp Pulse Resp B/P (MAP) Pulse Ox O2 Delivery O2 Flow Rate FiO2 11/23/16 04:00 98.0 89 20 145/82 (103) 100 11/23/16 01:50 97.9 94 18 126/75 (92) 97 11/23/16 00:00 97.9 93 20 135/79 (97) 98 11/22/16 23:08 97.5 86 18 107/59 (75) 99 11/22/16 22:50 97.5 87 18 139/69 (92) 98 11/22/16 22:00 Nasal Cannula 2.00 11/22/16 22:00 97.5 87 18 139/69 (92) 98 11/22/16 21:52 97.9 87 18 139/69 (92) 98 11/22/16 21:28 98.6 86 18 132/72 (92) 98 Nasal Cannula 2 11/22/16 21:04 99 Nasal Cannula 2.00 11/22/16 20:15 98.8 92 18 135/76 (95) 99 Nasal Cannula 2 11/22/16 20:00 99.0 90 18 128/76 (93) 98 Nasal Cannula 2 11/22/16 17:15 98 18 148/76 (100) 100 Nasal Cannula 2 11/22/16 15:48 100.8 92 18 148/76 (100) 100 Nasal Cannula 2 11/22/16 15:38 98 18 100 Room Air 11/22/16 15:35 18 100 Nasal Cannula 2 I/O 11/22/16 11/22/16 11/22/16 11/23/16 11/23/16 11/23/16 07:00 15:00 23:00 07:00 15:00 23:00 Output Total 425 ml Balance -425 ml Output Urine Total 425 ml # Bowel Movements 0 Result Diagram: 11/23/16 0508 11/23/16 0508 Objective Remarks GENERAL: in NAD but is very dry. SKIN: Warm and dry. HEAD: Normocephalic. EYES: No scleral icterus. No injection or drainage. NECK: Supple, trachea midline. No JVD or lymphadenopathy. CARDIOVASCULAR: Regular rate and rhythm without murmurs, gallops, or rubs. RESPIRATORY: Breath sounds equal bilaterally. No accessory muscle use. GASTROINTESTINAL: Abdomen soft, non-tender, nondistended. MUSCULOSKELETAL: No cyanosis, or edema. BACK: Nontender without obvious deformity. No CVA tenderness. Medications and IVs Current Medications Sodium Chloride (NS Flush) 2 ml UNSCH PRN IVF FLUSH AFTER USING IV ACCESS; Start 11/22/16 at 15:00 Sodium Chloride 1,000 ml @ 999 mls/hr BOLUS ONCE IV Last administered on 11/22 15:35; Start 11/22/16 at 15:30; Stop 11/22/16 at 16:30; Status DC Sodium Chloride 250 ml @ 15 mls/hr ONCE ONCE IV Last administered on 20:00; Start 11/22/16 at 16:15; Stop 11/23/16 at 08:54; Status DC Pantoprazole Sodium 80 mg/ Sodium Chloride 35 ml @ 420 mls/hr ONCE ONCE IV Last administered on 11/22/16 17:13; Start 11/22/16 at 16:15; Stop 11/22/16 at 16:19; Status DC Pantoprazole Sodium 80 mg/ Sodium Chloride 100 ml @ 10 mls/hr Q10H IV Last administered on 11/23/16 12:30; Start 11/22/16 at 16:15 Ceftriaxone Sodium 2000 mg/ Sodium Chloride 100 ml @ 200 mls/hr ONCE STAT IV Last administered on 11/22/16 17:14; Start 11/22/16 at 16:15; Stop 11/22/16 at 16:44; Status DC Azithromycin 500 mg/Sodium Chloride 250 ml @ 250 mls/hr ONCE STAT IV Last administered on 11/22/16 17:14; Start 11/22/16 at 16:15; Stop 11/22/16 at 17:14 ; Status DC Acetaminophen (Tylenol) 650 mg ONCE ONCE PO Last administered on 11/22/16 17: 34; Start 11/22/16 at 16:30; Stop 11/22/16 at 16:31; Status DC Sodium Chloride 1,000 ml @ 1,000 mls/hr Q1H ONCE IV Last administered on 17:35; Start 11/22/16 at 16:27; Stop 11/22/16 at 17:26; Status DC Sodium Chloride 1,000 ml @ 1,000 mls/hr Q1H ONCE IV Last administered on 17:35; Start 11/22/16 at 16:27; Stop 11/22/16 at 17:26; Status DC Sodium Chloride 400 ml @ 1,000 mls/hr Q24M ONCE IV Last administered on 17:34; Start 11/22/16 at 16:27; Stop 11/22/16 at 16:50; Status DC Sodium Bicarbonate (Sodium Bicarbonate 8.4% Inj) 50 meq ONCE ONCE IV PUSH Last administered on 11/22/16 17:34; Start 11/22/16 at 16:45; Stop 11/22/16 at 16:46; Status DC Sodium Bicarbonate (Sodium Bicarbonate 8.4% Inj) 50 meq STK-MED ONCE .ROUTE ; Start 11/22/16 at 17:23; Stop 11/22/16 at 17:24; Status DC Sodium Chloride 1,000 ml @ 125 mls/hr Q8H IV ; Start 11/22/16 at 17:49; Stop at 18:00; Status DC Acetaminophen (Tylenol) 650 mg Q4H PRN PO TEMP > 100.4; Start 11/22/16 at 18:00 Ondansetron HCl (Zofran Inj) 4 mg Q6H PRN IVP NAUSEA OR VOMITING; Start at 18:00 Senna/Docusate Sodium (Tiara-Colace) 1 tab BID PO Last administered on 08:50; Start 11/22/16 at 21:00 Magnesium Hydroxide (Milk Of Magnesia Liq) 30 ml Q12H PRN PO MILD - MODERATE CONSTIPATION; Start 11/22/16 at 18:00 Sodium Bicarbonate 50 meq/Sodium Chloride 1,050 ml @ 125 mls/hr Q8H24M IV Last administered on 11/22/16 20:08; Start 11/22/16 at 19:00; Stop 11/22/16 at 20:50; Status DC Potassium Bicarb/ Potassium Chloride (K-Lyte Cl Eff) 25 meq ONCE ONCE PO Last administered on 11/22/16 19:50; Start 11/22/16 at 18:15; Stop 11/22/16 at 18:16; Status DC Albuterol/ Ipratropium (Duoneb Neb) 1 ampule Q6HR NEB NEB ; Start 11/22/16 at 22:00; Stop 11/22/16 at 22:14; Status DC Albuterol/ Ipratropium (Duoneb Neb) 1 ampule Q4HR WHILE AWAKE NEB NEB Last administered on 11/22/16 21:02; Start 11/22/16 at 20:00 Sodium Chloride 250 ml @ 15 mls/hr ONCE ONCE IV Last administered on 23:10; Start 11/22/16 at 18:15; Stop 11/23/16 at 10:54; Status DC Piperacillin Sod/ Tazobactam Sod 50 ml @ 100 mls/hr Q8H IV Last administered on 11/23/16 12:30; Start 11/22/16 at 20:00 Vancomycin HCl 1000 mg/Sodium Chloride 250 ml @ 250 mls/hr ONCE ONCE IV Last administered on 11/22/16 20:59; Start 11/22/16 at 19:00; Stop 11/22/16 at 19:59 ; Status DC Pharmacy Profile Note 0 ml @ 0 mls/hr UNSCH OTHER ; Start 11/22/16 at 18:30 Sodium Bicarbonate 150 meq/Dextrose 1,150 ml @ 125 mls/hr Q9H12M IV Last administered on 11/23/16 05:41; Start 11/22/16 at 21:00 Potassium Chloride (KCl) 10 meq ONCE ONCE PO Last administered on 11/23/16 08 :50; Start 11/23/16 at 07:45; Stop 11/23/16 at 07:47; Status DC A/P Problem List: (1) Sepsis ICD Code: A41.9 - Sepsis, unspecified organism Status: Acute (2) Acute renal failure ICD Code: N17.9 - Acute kidney failure, unspecified Status: Acute (3) Pneumonia ICD Code: J18.9 - Pneumonia, unspecified organism Status: Acute (4) Coronary artery disease ICD Code: I25.10 - Coronary artery disease Status: Acute (5) Anemia ICD Code: D64.9 - Anemia Status: Acute (6) Hematochezia ICD Code: K92.1 - Melena Status: Acute (7) Hypokalemia ICD Code: E87.6 - Hypokalemia Status: Acute Assessment and Plan Mr. Fonseca is a 55-year-old male patient with a known medical history of CAD, CKD, COPD and history of CABG who presented to the ED with complaints of increasing dyspnea, weakness, fevers and frequent diaphoresis. Fever 100.8, WBC 19.1, bandemia 92.7, hbg 6.1/hct 18.4, k 3.2, creatinine 16.7, lactic acid 1.2 , c02 13, UA WBC 9. Sepsis suspect secondary to right multilobular pneumonia (leukocytosis 19.2, bandemia 92.7, fever 100.8, tachycardia) - WBC upon presentation 19.2 and improving. Febrile 100.8. Lactic acid 1.2. - CXR reviewed showing suspicion for right lung pneumonia. Urine culture so far negative. - Blood cultures negative 1 day. -Patient does have acute renal failure and was put on Zosyn and vancomycin. I would be very cautious with both medication due to patient's acute renal failure. We will discontinue Zosyn and start cefepime. -If cultures continue to be negative tomorrow and he continues to improve clinically I would discontinue vancomycin. Acute kidney failure suspect secondary to severe dehydration - Creatinine on presentation 16.7 and is now 14.79. Nephrology consulted, appreciate input. - Carbon dioxide 13. Will start bicarb drip 125 ml/hr. Hydrate. - OLMSTEAD CATHETER placed. Close I & O monitoring. - US kidney/renal/bladder ordered and reviewed showing mild pelvocaliectasis right kidney. Hypokalemia suspect secondary to diarrhea: -Continue to replace as needed. Normochromic, normocytic anemia suspect secondary to acute blood loss/ hematochezia Diarrhea - Hemoglobin 6.1/[id number] on presentation. Guaiac positive. - Transfuse total of 3 unit PRBC and posttransfusion hemoglobin is 8.0 no signs of GI bleed. An. -Patients on Protonix. -GI consulted pending consult report. GI restarted patient on diet. Chronic obstructive pulmonary disease - Continue scheduled and PRN duonebs. - Supplemental O2 to keep sats >88%. -Abnormal chest x-ray Hypoalbuminemia suspect secondary to poor PO intake Severe emancipation - States a 15 pound weight loss in the past 3 weeks. - Tumor markers were ordered reviewed. DVT Prophylaxis: SCDs/TEDs. Hold chemical prophylaxis for now due to possibly GI bleed with anemia. Problem Qualifiers (1) Sepsis: (2) Acute renal failure: (3) Pneumonia: (4) Anemia: Kami Duckworth MD Nov 23, 2016 15:03
--- NOTE | 2016-11-23 15:27 | PD.CONS ---
HPI History of Present Illness Patient was seen at 1024, this is late entry due to down time This is a 55 year old year-old male patient with a known medical history of CAD , CKD, COPD and history of CABG who presented to the ED with complaints of rectal bleeding, increasing dyspnea, generalized weakness, fevers and frequent diaphoresis x 2 weeks. Work up revealed hgb of 6. Acute renal insufficiency, pneumonia and UTI. GI have been consulted for further evaluation of rectal bleeding and the diarrhea. Patient reports rectal bleeding for over a year span , but due to financial issues and lack of insurance, he never followed up on that. Reports spells of sporadic bleeding almost monthly for a week duration at a time, then can have normal BMs for few days, then the cycle repeats. Reports copious amount of bleeding that fills the toilet, he showed me photos on his phone. He reports hx of hemorrhoids, but worsening in severity lately ( a fist full). States the diarrhea, started few days ago. He reports frequent nocturnal urination so he decreased fluid intake to avoid getting up at night so much, then he realized he was dehydrated, so he started adequate hydration during the day time, this fixed the urination problems but resulted in worsening diarrhea. Patient has been taking care of a family member with known, active c difficile infection. However, stools came back (-) for C-diff. States he has lost over 10 -15 pounds within the last 3 weeks due to poor appetite and PO intake. Denies any associated nausea or vomiting or abd pain. Denies GERD, or melena. Patient states he noticed fevers and worsening dyspnea begin 2 weeks ago with increasing congestion, associated cough and presence of clear colored phlegm. Denies any previous EGD or colonoscopy. Denies NSAIDs or blood thinners. He has been taking iron supplement for presumptive anemia due to blood loss as well as potassium supplement , he was self diagnosing and tries to control symptoms at home. (Bonifacio Ibanez) PFSH Past Medical History Anxiety CAD with CABG 2013 COPD Tobacco history Past Surgical History CABG 2013 (Bonifacio Ibanez) Coded Allergies: No Known Allergies (Unverified , 09/26/13) Medications Current Medications Medications (Trade) Dose Ordered Sig/Edwin Route Start Time Stop Time Status Last Admin (NS Flush) 2 ml UNSCH PRN IVF 8/19/17 15:00 Pantoprazole Sodium 80 mg/ Sodium Chloride 100 ml @ 10 mls/hr Q10H IV 11/22/16 16:15 11/23/16 12:30 (Tylenol) 650 mg Q4H PRN PO 11/22/16 18:00 (Zofran Inj) 4 mg Q6H PRN IVP 11/22/16 18:00 (Tiara-Colace) 1 tab BID PO 11/22/16 21:00 11/23/16 08:50 (Milk Of Magnesia Liq) 30 ml Q12H PRN PO 11/22/16 18:00 (Duoneb Neb) 1 ampule Q4HR WHILE AWAKE NEB NEB 11/22/16 20:00 11/22/16 21:02 Piperacillin Sod/ Tazobactam Sod 50 ml @ 100 mls/hr Q8H IV 11/22/16 20:00 11/23/16 12:30 Pharmacy Profile Note 0 ml @ 0 mls/hr UNSCH OTHER 11/22/16 18:30 Sodium Bicarbonate 150 meq/Dextrose 1,150 ml @ 125 mls/hr Q9H12M IV 11/22/16 21:00 11/23/16 05:41 Family History Paternal family medical history significant for cardiovascular disease all related to tobacco use. Denies family hx of colon cancer Social History Patient denies any current tobacco use, states he quit in 2013. Denies any alcohol use. Denies any illicit drug use. (Bonifacio Ibanez) Review of Systems Constitutional: COMPLAINS OF: Fatigue, Fever, Weight loss, Chills, Change in appetite, Night Sweats Endocrine: COMPLAINS OF: Polyuria Eyes: DENIES: Double Vision Ears, nose, mouth, throat: DENIES: Hoarseness Respiratory: COMPLAINS OF: Cough, Sputum production, Shortness of breath Cardiovascular: DENIES: Lower Extremity Edema Gastrointestinal: COMPLAINS OF: Bloody stools, Diarrhea, Anorexia, DENIES: Abdominal pain, Black stools, Constipation, Nausea, Vomiting, Difficulty Swallowing, Odynophagia, Swelling of Abdomen, Heartburn, Hematemesis Genitourinary: DENIES: Hematuria Musculoskeletal: DENIES: Back pain Integumentary: DENIES: Jaundice Hematologic/lymphatic: DENIES: Bruising Immunologic/allergic: DENIES: Eczema Neurologic: DENIES: Abnormal gait Psychiatric: DENIES: Anxiety (Bonifacio Ibanez) GI Exam Vitals I&O Vital Signs Date Time Temp Pulse Resp B/P (MAP) Pulse Ox O2 Delivery O2 Flow Rate FiO2 11/23/16 04:00 98.0 89 20 145/82 (103) 100 11/23/16 01:50 97.9 94 18 126/75 (92) 97 11/23/16 00:00 97.9 93 20 135/79 (97) 98 11/22/16 23:08 97.5 86 18 107/59 (75) 99 11/22/16 22:50 97.5 87 18 139/69 (92) 98 11/22/16 22:00 Nasal Cannula 2.00 11/22/16 22:00 97.5 87 18 139/69 (92) 98 11/22/16 21:52 97.9 87 18 139/69 (92) 98 11/22/16 21:28 98.6 86 18 132/72 (92) 98 Nasal Cannula 2 11/22/16 21:04 99 Nasal Cannula 2.00 11/22/16 20:15 98.8 92 18 135/76 (95) 99 Nasal Cannula 2 11/22/16 20:00 99.0 90 18 128/76 (93) 98 Nasal Cannula 2 11/22/16 17:15 98 18 148/76 (100) 100 Nasal Cannula 2 11/22/16 15:48 100.8 92 18 148/76 (100) 100 Nasal Cannula 2 11/22/16 15:38 98 18 100 Room Air 11/22/16 15:35 18 100 Nasal Cannula 2 I/O 11/22/16 11/22/16 11/22/16 11/23/16 11/23/16 11/23/16 07:00 15:00 23:00 07:00 15:00 23:00 Output Total 425 ml Balance -425 ml Output Urine Total 425 ml # Bowel Movements 0 Imaging Last Impressions Chest X-Ray 11/22/16 1447 Signed Impressions: Service Date/Time: Tuesday, November 22, 2016 15:09 - CONCLUSION: Dense airspace process right lung highly suspicious for pneumonia. Obdulia Garcia MD Renal Ultrasound 11/22/16 0000 Signed Impressions: Service Date/Time: Tuesday, November 22, 2016 17:14 - CONCLUSION: Mild pelvocaliectasis right kidney not present previously. Obdulia Garcia MD Laboratory Test 11/22/16 15:00 11/22/16 15:10 11/22/16 16:50 11/22/16 18:37 Urine Color YELLOW Urine Turbidity HAZY Urine pH 6.0 Urine Specific Hurley 1.015 Urine Protein 300 mg/dL Urine Glucose (UA) 300 mg/dL Urine Ketones 10 mg/dL Urine Occult Blood MOD Urine Nitrite NEG Urine Bilirubin NEG Urine Urobilinogen LESS THAN 2.0 MG/DL Urine Leukocyte Esterase NEG Urine RBC 1 /hpf Urine WBC 9 /hpf Urine Squamous Epithelial Cells 1 /hpf Urine Amorphous Sediment MOD Microscopic Urinalysis Comment CULTURE INDICATED Urine Eosinophils NONE SEEN /HPF Urine Random Creatinine 94.6 MG/DL Urine Random Sodium 22 MEQ/L White Blood Count 19.2 TH/MM3 Red Blood Count 1.85 MIL/MM3 Hemoglobin 6.1 GM/DL Hematocrit 18.4 % Mean Corpuscular Volume 99.4 FL Mean Corpuscular Hemoglobin 32.7 PG Mean Corpuscular Hemoglobin Concent 32.9 % Red Cell Distribution Width 13.4 % Platelet Count 317 TH/MM3 Mean Platelet Volume 8.7 FL Neutrophils (%) (Auto) 92.7 % Lymphocytes (%) (Auto) 3.0 % Monocytes (%) (Auto) 4.0 % Eosinophils (%) (Auto) 0.0 % Basophils (%) (Auto) 0.3 % Neutrophils # (Auto) 17.8 TH/MM3 Lymphocytes # (Auto) 0.6 TH/MM3 Monocytes # (Auto) 0.8 TH/MM3 Eosinophils # (Auto) 0.0 TH/MM3 Basophils # (Auto) 0.1 TH/MM3 CBC Comment AUTO DIFF Differential Comment AUTO DIFF CONFIRMED Erythrocyte Sedimentation Rate GREATER THAN 140 mm/hr Prothrombin Time 11.9 SEC Prothromb Time International Ratio 1.1 RATIO Activated Partial Thromboplast Time 33.4 SEC Blood Urea Nitrogen 100 MG/DL Creatinine 16.71 MG/DL Random Glucose 103 MG/DL Total Protein 6.6 GM/DL Albumin 1.5 GM/DL Calcium Level 8.0 MG/DL Magnesium Level 2.1 MG/DL Alkaline Phosphatase 89 U/L Aspartate Amino Transf (AST/SGOT) 23 U/L Alanine Aminotransferase (ALT/SGPT) 26 U/L Total Bilirubin 0.3 MG/DL Sodium Level 137 MEQ/L Potassium Level 3.2 MEQ/L Chloride Level 102 MEQ/L Carbon Dioxide Level 13.0 MEQ/L Anion Gap 22 MEQ/L Estimat Glomerular Filtration Rate 3 ML/MIN Phosphorus Level 10.9 MG/DL Total Creatine Kinase 157 U/L Creatine Kinase MB 2.4 NG/ML Troponin I 0.03 NG/ML C-Reactive Protein 39.00 MG/DL B-Type Natriuretic Peptide 213 PG/ML Thyroid Stimulating Hormone 3rd Gen 1.870 uIU/ML Complement C3 153 MG/DL Complement C4 29 MG/DL Lactic Acid Level 1.2 mmol/L Blood Gas Puncture Site RT RADIAL Blood Gas Patient Temperature 98.6 Blood Gas HCO3 10 mmol/L Blood Gas Base Excess -15.3 mmol/L Blood Gas Oxygen Saturation 94 % Arterial Blood pH 7.29 Arterial Blood Partial Pressure CO2 22 mmHg Arterial Blood Partial Pressure O2 97 mmHG Arterial Blood Oxygen Content 10.2 Vol % Arterial Blood Carboxyhemoglobin 1.1 % Arterial Blood Methemoglobin 0.8 % Blood Gas Hemoglobin 7.6 G/DL Oxygen Delivery Device NASAL CANNULA Blood Gas Liter Flow 2 L/M Test 11/22/16 20:15 11/22/16 20:30 11/23/16 05:08 Carcinoembryonic Antigen 1.5 NG/ML Prostate Specific Antigen 3.30 NG/ML Parathyroid Hormone (Intact) 398.6 PG/ML Stool C. difficile Toxin (PCR) NEGATIVE Stl C. difficile Toxin Epiderm 027 PRESUMPTIVE NEGATIVE White Blood Count 16.9 TH/MM3 Red Blood Count 2.47 MIL/MM3 Hemoglobin 8.0 GM/DL Hematocrit 23.2 % Mean Corpuscular Volume 94.0 FL Mean Corpuscular Hemoglobin 32.5 PG Mean Corpuscular Hemoglobin Concent 34.6 % Red Cell Distribution Width 15.0 % Platelet Count 298 TH/MM3 Mean Platelet Volume 8.7 FL Neutrophils (%) (Auto) 92.9 % Lymphocytes (%) (Auto) 2.9 % Monocytes (%) (Auto) 3.5 % Eosinophils (%) (Auto) 0.4 % Basophils (%) (Auto) 0.3 % Neutrophils # (Auto) 15.6 TH/MM3 Lymphocytes # (Auto) 0.5 TH/MM3 Monocytes # (Auto) 0.6 TH/MM3 Eosinophils # (Auto) 0.1 TH/MM3 Basophils # (Auto) 0.1 TH/MM3 CBC Comment AUTO DIFF Differential Comment AUTO DIFF CONFIRMED Platelet Estimate NORMAL Platelet Morphology Comment NORMAL Red Cell Morphology Comment NORMAL Blood Urea Nitrogen 101 MG/DL Creatinine 14.79 MG/DL Random Glucose 92 MG/DL Total Protein 5.8 GM/DL Albumin 1.2 GM/DL Calcium Level 7.4 MG/DL Phosphorus Level 10.7 MG/DL Magnesium Level 1.9 MG/DL Alkaline Phosphatase 79 U/L Aspartate Amino Transf (AST/SGOT) 22 U/L Alanine Aminotransferase (ALT/SGPT) 20 U/L Total Bilirubin 0.4 MG/DL Sodium Level 142 MEQ/L Potassium Level 3.3 MEQ/L Chloride Level 110 MEQ/L Carbon Dioxide Level 12.4 MEQ/L Anion Gap 20 MEQ/L Estimat Glomerular Filtration Rate 3 ML/MIN Hemoglobin A1c 5.8 % Protein Corrected Calcium 8.1 MG/DL Free Thyroxine 0.90 NG/DL Thyroid Stimulating Hormone 3rd Gen 2.130 uIU/ML Date/Time Source Procedure Growth Status 11/22/16 15:20 Blood Peripheral Aerobic Blood Culture - Preliminary NO GROWTH IN 1 DAY Resulted 11/22/16 15:20 Blood Peripheral Anaerobic Blood Culture - Preliminary NO GROWTH IN 1 DAY Resulted 11/22/16 20:30 Stool Stool Cryptosporidium Exam Pending Resulted 11/22/16 20:30 Stool Stool Stool Pus (MANOLO) - Final FEW WBC'S Resulted 11/22/16 20:30 Stool Stool Giardia Antigen (MANOLO) Pending Resulted 11/22/16 15:00 Urine Clean Catch Urine Culture - Preliminary NO GROWTH IN 24 HOURS. Resulted Physical Examination HEENT: normocephalic; atraumatic; no jaundice. NECK: Neck is supple, no JVD, no lymphadenopathy. CHEST: Expiratory wheezes CARDIAC: Regular rate and rhythm with no murmur gallop or rubs. ABDOMEN: Soft, nondistended, nontender; no hepatosplenomegaly; bowel sounds are present in all four quadrants. EXTREMITIES: No clubbing, cyanosis, or edema. SKIN: Normal; no rash; no jaundice. WAX PATTERN ASSEMBLER: No focal deficits; alert and oriented times three. (Bonifacio Ibanez) Assessment and Plan Plan - Anemia ( hgb of 6 on admission)/ rectal bleeding for over a year secondary to hemorrhoids per patient - States copious amounts of blood filling the toilet monthly for a week duration at a time, showed me photos at his phone Hgb currently is 8 s/p 2 units of blood, hemodynamically stable, CEA 1.5. Never had EGD/colonoscopy before - Hemorrhoids- progressively getting worse in severity " a fist full" - Loose stools- He has been taking care of family member with active C-diff, however stools are Negative for C-diff, stools cx pending - Acute renal insufficiency- Nephrology on the case, likely secondary to hypovolemia - UTI- urine cx pending - Pneumonia/sepsis/dyspnea- on X-ray, abx, O2 NC - Leukocytosis- WBC 16.9, this is trending down, afebrile, , ESR > 140, blood cx pending - Weight loss- 10-15 ibs in the last 3 weeks due to poor appetite and Po intake - Hypokalemia- Secondary to above, replaced by attending - Hx of CABG, COPD per attending Plan: - Heart healthy diet - Patient will need EGD/colonoscopy once respiratory status improved and medically stable - Cont. ppi - Monitor hh - Transfuse as needed - Await stool cx - Consider CRS consult pending results above - Supportive care - Patient seen and examined by Dr. Burch and myself and this note is written on his behalf. (Bonifacio Ibanez) Physician Comments Seen and examined with Bonifacio, plan as above, will follow up with you. (Marii Burch MD) Bonifacio Ibanez Nov 23, 2016 15:27 Marii Burch MD Nov 23, 2016 16:19
--- NOTE | 2016-11-23 15:59 | EKG ---
Date Performed: 11/22/2016 Time Performed: 15:34:43 PTAGE: 55 years EKG: Sinus rhythm Compared to previous tracing, the T wave changes have improved NORMAL ECG PREVIOUS TRACING : 08/04/2013 16.25 DOCTOR: Dru Ceja Interpretating Date/Time 11/23/2016 15:58:44
[2016-11-23] MEDS: CEFEPIME INJ 1,000 MG in SODIUM CHLORIDE 0.9% INJ 100 ML IV SCH (17:05)
--- NOTE | 2016-11-23 17:43 | HHI.NPPN ---
Subjective Additional Remarks Feels thirsty, tired Objective Data Data Vital Signs Date Time Temp Pulse Resp B/P (MAP) Pulse Ox O2 Delivery O2 Flow Rate FiO2 11/23/16 12:00 98.0 92 18 124/73 (90) 96 11/23/16 08:00 98.2 100 20 121/67 (85) 93 11/23/16 07:15 94 Nasal Cannula 2.00 11/23/16 04:00 98.0 89 20 145/82 (103) 100 11/23/16 01:50 97.9 94 18 126/75 (92) 97 11/23/16 00:00 97.9 93 20 135/79 (97) 98 11/22/16 23:08 97.5 86 18 107/59 (75) 99 11/22/16 22:50 97.5 87 18 139/69 (92) 98 11/22/16 22:00 Nasal Cannula 2.00 11/22/16 22:00 97.5 87 18 139/69 (92) 98 11/22/16 21:52 97.9 87 18 139/69 (92) 98 11/22/16 21:28 98.6 86 18 132/72 (92) 98 Nasal Cannula 2 11/22/16 21:04 99 Nasal Cannula 2.00 11/22/16 20:15 98.8 92 18 135/76 (95) 99 Nasal Cannula 2 11/22/16 20:00 99.0 90 18 128/76 (93) 98 Nasal Cannula 2 -: 11/23/16 0508 11/23/16 0508 Microbiology 11/22/16 Cryptosporidium Exam, Resulted Pending 11/22/16 Stool Pus (MANOLO) - Final, Resulted FEW WBC'S 11/22/16 Giardia Antigen (MANOLO), Resulted Pending 11/22/16 - Final, Complete NO ENTERIC PATHOGENS DETECTED BY PCR... Physical Exam General Appearance: Malnourished Eyes Eye Exam: Pupils Equal Throat Throat Exam: Oral Mucosa [place] & Moist Neck Neck Exam: Neck Supple Pulmonary Resp Exam: Decreased Bases Cardiology CV Exam: Regular, Normal Sinus Rhythm Gastrointestinal/Abdomen GI Exam: Soft, Non-Tender, Bowel Sounds Present Integumentary Skin Exam: Dry, Intact Extremeties Extremities Exam: No Edema Neurologic Neuro Exam: Alert, Awake, Oriented, Speech Clear Psychiatric Psych Exam: Appropriate Responses Assessment/Plan Problem List: (1) Acute renal failure ICD Codes: N17.9 - Acute kidney failure, unspecified Status: Acute Plan: Previous creatinine level of 2.0 in July of 2013. Creatinine 16 ->14 overnight on IVFs. SEJAL due to volume depletion due to diarrhea and poor PO intake, with possible ATN Making some urine with bergman. Continue D5W + 150 meq NaHCO3 at 100cc/hour. Renal ultrasound with 11.3 and 11.8 cm kidneys with a relatively normal echogenicity. The ultrasound did show some mild right-sided pelvic calcium, however, no obstructive stones noted. Given the size of his kidneys, I suspect he may have actually relatively normal renal function, however, it is difficult to ascertain without any recent lab work. His FENa was 2.7 which is consistent with possible ATN. However, he is making some urine output at this time. Serologies pending. Initial UA with 300 protein, blood. Will recheck urine studies. No need for dialysis at this point, continue to monitor renal function and UOP. (2) Acidosis ICD Codes: E87.2 - Acidosis Status: Acute Plan: Significant acidosis consistent with GI losses from diarrhea as well as renal failure. At this point, continue with D5W with 150 mEq of sodium bicarbonate at 100 cc/hour. Lactic acid wnl . (3) Hypokalemia ICD Codes: E87.6 - Hypokalemia Status: Acute Plan: due to poor po intake, diarrhea. Given replacement this morning. Continue to monitor (4) GI bleed ICD Codes: K92.2 - Gastrointestinal hemorrhage, unspecified Status: Acute Plan: Seen with GI, history of hemorroids with initial history of bright red blood per rectum. Transfused yesterday, continue to follow with GI. Plan for eventual EGD/ Colonoscopy. (5) Sepsis ICD Codes: A41.9 - Sepsis, unspecified organism Status: Acute Plan: Apparent pneumonia per chest x-ray and questionable UTI. Currently on Cefepime, given Vancomycin x 1. Caution with vancomycin levels. Continue to follow closely and follow speciation of blood cultures. Problem Qualifiers (1) Acute renal failure: (2) GI bleed: (3) Sepsis: Andrea Dallas MD Nov 23, 2016 17:43
[2016-11-24] VITALS (15 sets, daily range): BP systolic 106–150; BP diastolic 62–79; PULSE 87–115; RESP 16–27; TEMP 97.5–100.2; O2SAT 92–96
[2016-11-24] MEDS: RESP: ALBUTEROL 2.5 MG/IPRATROPIUM 0.5 MG NEB (SCH) NEB ×4 (08:00→19:58)
[2016-11-24 08:59] LABS: BICARBONATE 18.7 MEQ/L (21.0-32.0); CALCIUM-PROTEIN CORRECTED 7.7 MG/DL (8.5-10.1); TOTAL BILIRUBIN ADULT 0.3 MG/DL (0.2-1.0)
[2016-11-24 09:06] LABS: POTASSIUM 2.5 MEQ/L (3.5-5.1)
[2016-11-24] MEDS: SODIUM BICARBONATE 8.4% INJ 150 MEQ in DEXTROSE 5% IN WATE 1000ML INJ 1,000 ML IV SCH ×4 (09:19→18:33)
[2016-11-24] MEDS: PANTOPRAZOLE INJ 80 MG in SODIUM CHLORIDE 0.9% INJ 100 ML IV SCH ×2 (09:20→18:32)
[2016-11-24] MEDS: CEFEPIME INJ 1,000 MG in SODIUM CHLORIDE 0.9% INJ 100 ML IV SCH (09:20)
[2016-11-24] MEDS: DOCUSATE SODIUM 50 MG/SENNA 8.6 MG TAB PO SCH ×3 (09:20→20:54)
[2016-11-24] MEDS ORDERED: POTASSIUM CHLORIDE 10 MEQ CONTROLLED RELEASE TAB PO ONE (10:30)
[2016-11-24 10:35] LABS: AUTOMATED NEUTROPHIL # 12.9 TH/MM3 (1.8-7.7); BASOPHIL # 0.1 TH/MM3 (0-0.2); BASOPHIL % 0.8 % (0.0-2.0); EOSINOPHIL # 0.3 TH/MM3 (0-0.4); EOSINOPHIL % 1.8 % (0.0-4.0); HEMATOCRIT 21.1 % (39.0-51.0); HEMO FLAGS AUTO DIFF; LYMPH % 5.1 % (9.0-44.0); LYMPHOCYTE # 0.7 TH/MM3 (1.0-4.8); MEAN CORPUSCULAR HEMOGLOBIN 31.1 PG (27.0-34.0); MEAN CORPUSCULAR HGB CONC 33.5 % (32.0-36.0); MONO % 3.2 % (0.0-8.0); NEUT % 89.1 % (16.0-70.0); PLATELET COUNT 278 TH/MM3 (150-450); RED BLOOD COUNT 2.25 MIL/MM3 (4.50-5.90); RED CELL DISTRIBUTION WIDTH 15.1 % (11.6-17.2); WHITE BLOOD COUNT 14.4 TH/MM3 (4.0-11.0)
[2016-11-24 11:15] LABS: BANDS 21 % (0-6); NEUTROPHIL # MANUAL DIFF 13.2 TH/MM3 (1.8-7.7); OVALOCYTES 1+ (NORMAL); POLYS (SEG NEUTROPHILS) 71 % (16-70); WBC DIFF SAMPLE 100
[2016-11-24 11:16] LABS: PLATELET ESTIMATE SMEAR NORMAL (NORMAL); PLATELET MORPHOLOGY CLUMPED (NORMAL); SCAN/DIFF FINAL DIFF MANUAL
--- NOTE | 2016-11-24 13:12 | HHI.PR ---
Subjective Remarks Follow-up GI bleed/acute on chronic kidney disease/anemia 11/24/16-patient seen and examined, complains of low back pain as well as insomnia 3 days. Hemoglobin 7.1 but denies any hemoptysis or hematemesis. Objective Vitals Vital Signs Date Time Temp Pulse Resp B/P (MAP) Pulse Ox O2 Delivery O2 Flow Rate FiO2 11/24/16 11:45 98.2 100 18 114/67 (83) 96 11/24/16 09:34 92 Nasal Cannula 3.00 11/24/16 09:31 94 Nasal Cannula 3.00 11/24/16 09:31 88 11/24/16 08:00 97.5 87 18 127/71 (89) 94 11/24/16 04:00 Nasal Cannula 2.00 11/24/16 04:00 97.8 89 16 106/62 (77) 96 11/24/16 00:00 Nasal Cannula 2.00 11/24/16 00:00 98.2 105 18 119/68 (85) 93 11/23/16 21:42 91 Nasal Cannula 2.00 11/23/16 20:26 95 11/23/16 20:00 Nasal Cannula 2.00 11/23/16 20:00 97.9 96 16 135/65 (88) 97 11/23/16 16:00 97.8 93 18 127/73 (91) 97 I/O 11/23/16 11/23/16 11/23/16 11/24/16 11/24/16 11/24/16 07:00 15:00 23:00 07:00 15:00 23:00 Intake Total 2333 ml 2022 ml Output Total 425 ml 700 ml 325 ml Balance -425 ml 1633 ml 1697 ml Intake Oral 360 ml 480 ml IV Total 1973 ml 1542 ml Output Urine Total 425 ml 700 ml 325 ml # Bowel Movements 0 0 1 Result Diagram: 11/24/16 0650 11/24/16 0650 Imaging Last Impressions Chest X-Ray 11/22/16 1447 Signed Impressions: Service Date/Time: Tuesday, November 22, 2016 15:09 - CONCLUSION: Dense airspace process right lung highly suspicious for pneumonia. Obdulia Garcia MD Renal Ultrasound 11/22/16 0000 Signed Impressions: Service Date/Time: Tuesday, November 22, 2016 17:14 - CONCLUSION: Mild pelvocaliectasis right kidney not present previously. Obdulia Garcia MD Objective Remarks GENERAL: NAD SKIN: Warm and dry. HEAD: Normocephalic. EYES: No scleral icterus. No injection or drainage. NECK: Supple, trachea midline. No JVD or lymphadenopathy. CARDIOVASCULAR: Regular rate and rhythm without murmurs, gallops, or rubs. RESPIRATORY: Breath sounds equal bilaterally. No accessory muscle use. GASTROINTESTINAL: Abdomen soft, non-tender, nondistended. MUSCULOSKELETAL: No cyanosis, or edema. BACK: Nontender without obvious deformity. No CVA tenderness. A/P Problem List: (1) Sepsis ICD Code: A41.9 - Sepsis, unspecified organism Status: Acute (2) Acute renal failure ICD Code: N17.9 - Acute kidney failure, unspecified Status: Acute (3) Pneumonia ICD Code: J18.9 - Pneumonia, unspecified organism Status: Acute (4) Coronary artery disease ICD Code: I25.10 - Coronary artery disease Status: Acute (5) Anemia ICD Code: D64.9 - Anemia Status: Acute (6) Hematochezia ICD Code: K92.1 - Melena Status: Acute (7) Hypokalemia ICD Code: E87.6 - Hypokalemia Status: Acute Assessment and Plan 55-year-old man with Sepsis suspect secondary to right multilobular pneumonia (leukocytosis 19.2, bandemia 92.7, fever 100.8, tachycardia) - CXR reviewed showing suspicion for right lung pneumonia. Urine culture so far negative. -Currently on cefepime pending culture report Acute kidney failure suspect secondary to severe dehydration -Management per nephrology - kidney/renal/bladder ordered and reviewed showing mild pelvocaliectasis right kidney. Hypokalemia -Based electrolyte and monitor Normochromic, normocytic anemia suspect secondary to acute blood loss/ hematochezia Diarrhea - Hemoglobin 6.1/Mmjjesxaqm80.4 on presentation. Guaiac positive. -Will transfuse 1 unit packed red blood cell today 11/24/16 40 total of 4 since admission -Continue with PPI drip and appreciate input from GI Chronic obstructive pulmonary disease - Continue scheduled and PRN duonebs. - Supplemental O2 to keep sats >88%. -Abnormal chest x-ray Hypoalbuminemia suspect secondary to poor PO intake Severe emancipation - Tumor markers were ordered reviewed. DVT Prophylaxis: SCDs/TEDs. Hold chemical prophylaxis for now due to possibly GI bleed with anemia. Problem Qualifiers (1) Sepsis: (2) Acute renal failure: (3) Pneumonia: (4) Anemia: Broderick Barajas MD Nov 24, 2016 13:12
[2016-11-24] MEDS ORDERED: ONDANSETRON HCL 4 MG/2 ML VIAL IV PRN (13:15)
[2016-11-24] MEDS ORDERED: SODIUM CHLOR 0.9% 250 ML INJ 250 ML IV ONE (13:15)
[2016-11-24] MEDS ORDERED: ALUMINUM/MAGNESIUM/SIMETH 30 ML CUP PO PRN (13:15)
[2016-11-24] MEDS: POTASSIUM CHLOR 20 MEQ PREMIX 100 ML IV SCH ×2 (13:25→15:52)
[2016-11-24] MEDS ORDERED: VANCOMYCIN 500 MG/NS 100 ML IV ONE ×2 (14:00)
--- NOTE | 2016-11-24 17:19 | HHI.NPPN ---
Subjective Renal Failure: Acute Interval History Renal funciton is worse today. He is hypokalemic at 2.5 today. (Milla Pack) Review of Systems General Constitutional: Fatigue (Milla Pack) Objective Data Data Vital Signs Date Time Temp Pulse Resp B/P (MAP) Pulse Ox O2 Delivery O2 Flow Rate FiO2 11/24/16 16:00 100.2 107 24 125/79 (94) 94 11/24/16 15:41 98.9 104 27 124/71 (88) 92 11/24/16 15:11 100.2 100 24 125/79 (94) 92 11/24/16 11:45 98.2 100 18 114/67 (83) 96 11/24/16 09:34 92 Nasal Cannula 3.00 11/24/16 09:31 94 Nasal Cannula 3.00 11/24/16 09:31 88 11/24/16 08:00 97.5 87 18 127/71 (89) 94 11/24/16 04:00 Nasal Cannula 2.00 11/24/16 04:00 97.8 89 16 106/62 (77) 96 11/24/16 00:00 Nasal Cannula 2.00 11/24/16 00:00 98.2 105 18 119/68 (85) 93 11/23/16 21:42 91 Nasal Cannula 2.00 11/23/16 20:26 95 11/23/16 20:00 Nasal Cannula 2.00 11/23/16 20:00 97.9 96 16 135/65 (88) 97 (Milla Pack) -: 11/24/16 0650 11/24/16 0650 Imaging Last Impressions Chest X-Ray 11/22/16 1447 Signed Impressions: Service Date/Time: Tuesday, November 22, 2016 15:09 - CONCLUSION: Dense airspace process right lung highly suspicious for pneumonia. Obdulia Garcia MD Renal Ultrasound 11/22/16 0000 Signed Impressions: Service Date/Time: Tuesday, November 22, 2016 17:14 - CONCLUSION: Mild pelvocaliectasis right kidney not present previously. Obdulia Garcia MD Tubes & Lines: Bergman Drip Comment bicarb gtt (D5W with 150 mEq ) @ 125 cc/hr (Milla Pack) Physical Exam General Appearance: Well Developed, No Acute Distress, Comfortable, Malnourished (Milla Pack) Eyes Eye Exam: Pupils Equal (Milla Pack) Throat Throat Exam: Oral Mucosa [place] & Moist (Milla PackP) Neck Neck Exam: Neck Supple (Milla Pack) Pulmonary Resp Exam: Decreased Bases (Milla Pack) Cardiology CV Exam: Regular, Normal Sinus Rhythm, Good Perfusion (Milla Pack) Gastrointestinal/Abdomen GI Exam: Soft, Non-Tender, Bowel Sounds Present (Milla Pack) Musculoskeletal MS Exam: Normal Tone, Good Strength (Milla Pack) Integumentary Skin Exam: Dry, Intact (Milla Pack) Extremeties Extremities Exam: No Edema, Pedal Pulses Palpable (Milla Pack) Neurologic Neuro Exam: Alert, Awake, Oriented, Speech Clear (Milla Pack) Psychiatric Psych Exam: Appropriate Responses (Milla Pack) Assessment/Plan Discussed Condition With: Patient Assessment Summary: SEJAL/Acute Renal Failure Electrolyte Assessment: Hyperkalemia, Hypocalcemia, Metabolic Acidosis Problem List: (1) Acute renal failure ICD Codes: N17.9 - Acute kidney failure, unspecified Status: Acute Plan: Baseline creatinine of 2.0 from July of 2013. SEJAL was thought to be due to intravascular volume depletion, however renal function did not improve with IVFs may have progressed to ATN complement levels are not low, JIGNA negative; serum electrophoresis is in process he may require dialysis support soon; we discussed dialysis with the patient, he would like to wait as long as possible at this time he is non oliguric, has bergman on bicarb gtt for acidosis correction, continue he has hyperphosphatemia, start Renvela and monitor response repeat labs in am he has 300 glucose on his UA without hyperglycemia; this may indicate a proximal renal tubule disorder; repeat UA (2) Acidosis ICD Codes: E87.2 - Acidosis Status: Acute Plan: Significant acidosis consistent with GI losses from diarrhea as well as renal failure. he is on bicarb drip, D5W with 150 @ 100cc/hr monitor (3) Hypokalemia ICD Codes: E87.6 - Hypokalemia Status: Acute Plan: severe, due to poor oral intake with diarrhea. IV and po replacement ordered, follow up lab work (4) GI bleed ICD Codes: K92.2 - Gastrointestinal hemorrhage, unspecified Status: Acute Plan: GI following, needs EGD/colonoscopy this admission transfusion ordered, follow Hb GI following on protonix gtt (5) Sepsis ICD Codes: A41.9 - Sepsis, unspecified organism Status: Acute Plan: febrile with leukocytosis, Apparent pneumonia per chest x-ray questionable UTI. On Cefepime, given Vancomycin x 1 (now stopped) cultures have been negative so far (Milla Pack) Plan patient was seen and examined. Renal function is worse. Unclear why he had glucosuria in the presence of normal blood sugar. May need dialysis during this admission. Remains hypokalemic. Replace. May have proximal tubular dysfunction? (Jim Zuluaga MD) Problem Qualifiers (1) Acute renal failure: (2) GI bleed: (3) Sepsis: Milla Pack Nov 24, 2016 17:19 Jim Zuluaga MD Nov 25, 2016 11:32
--- NOTE | 2016-11-24 17:20 | HHI.GIFU ---
Subjective Remarks Pt resting in bed. Says he has occasional spot of blood with BM but it is much improved, as is his rectal pain (Roxy Hawley FILTER OPERATOR) Objective Vitals I&O Vital Signs Date Time Temp Pulse Resp B/P (MAP) Pulse Ox O2 Delivery O2 Flow Rate FiO2 11/24/16 16:00 100.2 107 24 125/79 (94) 94 11/24/16 15:41 98.9 104 27 124/71 (88) 92 11/24/16 15:11 100.2 100 24 125/79 (94) 92 11/24/16 11:45 98.2 100 18 114/67 (83) 96 11/24/16 09:34 92 Nasal Cannula 3.00 11/24/16 09:31 94 Nasal Cannula 3.00 11/24/16 09:31 88 11/24/16 08:00 97.5 87 18 127/71 (89) 94 11/24/16 04:00 Nasal Cannula 2.00 11/24/16 04:00 97.8 89 16 106/62 (77) 96 11/24/16 00:00 Nasal Cannula 2.00 11/24/16 00:00 98.2 105 18 119/68 (85) 93 11/23/16 21:42 91 Nasal Cannula 2.00 11/23/16 20:26 95 11/23/16 20:00 Nasal Cannula 2.00 11/23/16 20:00 97.9 96 16 135/65 (88) 97 I/O 11/23/16 11/23/16 11/23/16 11/24/16 11/24/16 11/24/16 07:00 15:00 23:00 07:00 15:00 23:00 Intake Total 2333 ml 2022 ml Output Total 425 ml 700 ml 325 ml Balance -425 ml 1633 ml 1697 ml Intake Oral 360 ml 480 ml IV Total 1973 ml 1542 ml Output Urine Total 425 ml 700 ml 325 ml # Bowel Movements 0 0 1 Laboratory Laboratory Tests Test 11/24/16 06:50 White Blood Count 14.4 Red Blood Count 2.25 Hemoglobin 7.1 Hematocrit 21.1 Mean Corpuscular Volume 93.0 Mean Corpuscular Hemoglobin 31.1 Mean Corpuscular Hemoglobin Concent 33.5 Red Cell Distribution Width 15.1 Platelet Count 278 Mean Platelet Volume 8.3 Neutrophils (%) (Auto) 89.1 Lymphocytes (%) (Auto) 5.1 Monocytes (%) (Auto) 3.2 Eosinophils (%) (Auto) 1.8 Basophils (%) (Auto) 0.8 Neutrophils # (Auto) 12.9 Lymphocytes # (Auto) 0.7 Monocytes # (Auto) 0.5 Eosinophils # (Auto) 0.3 Basophils # (Auto) 0.1 CBC Comment AUTO DIFF Differential Total Cells Counted 100 Neutrophils % (Manual) 71 Band Neutrophils % 21 Lymphocytes % 5 Monocytes % 3 Neutrophils # (Manual) 13.2 Differential Comment FINAL DIFF MANUAL Platelet Estimate NORMAL Platelet Morphology Comment CLUMPED Ovalocytes 1+ Blood Urea Nitrogen 102 Creatinine 14.83 Random Glucose 112 Total Protein 5.2 Albumin 1.0 Calcium Level 6.7 Alkaline Phosphatase 69 Aspartate Amino Transf (AST/SGOT) 21 Alanine Aminotransferase (ALT/SGPT) 19 Total Bilirubin 0.3 Sodium Level 139 Potassium Level 2.5 Chloride Level 102 Carbon Dioxide Level 18.7 Anion Gap 18 Estimat Glomerular Filtration Rate 3 Protein Corrected Calcium 7.7 Random Vancomycin Level 12.7 Date/Time Source Procedure Growth Status 11/22/16 15:20 Blood Peripheral Aerobic Blood Culture - Preliminary NO GROWTH IN 2 DAYS Resulted 11/22/16 15:20 Blood Peripheral Anaerobic Blood Culture - Preliminary NO GROWTH IN 2 DAYS Resulted 11/22/16 20:30 Stool Stool Cryptosporidium Exam - Final NEGATIVE - NO CRYPTOSPORIDIUM ANTIGEN... Complete 11/22/16 20:30 Stool Stool Stool Pus (MANOLO) - Final FEW WBC'S Complete 11/22/16 20:30 Stool Stool Giardia Antigen (MANOLO) - Final NEGATIVE - NO GIARDIA ANTIGEN DETECTE... Complete 11/22/16 15:00 Urine Clean Catch Urine Culture - Final NO GROWTH IN 48 HOURS. Complete Imaging Last Impressions Chest X-Ray 11/22/16 1447 Signed Impressions: Service Date/Time: Tuesday, November 22, 2016 15:09 - CONCLUSION: Dense airspace process right lung highly suspicious for pneumonia. Obdulia Garcia MD Renal Ultrasound 11/22/16 0000 Signed Impressions: Service Date/Time: Tuesday, November 22, 2016 17:14 - CONCLUSION: Mild pelvocaliectasis right kidney not present previously. Obdulia Garcia MD Physical Exam HEENT: PERRL; normocephalic; atraumatic; no jaundice. CHEST: CTA. SOB to conversation. 3L NC CARDIAC: tachy ABDOMEN: Soft, nondistended, nontender; no hepatosplenomegaly; bowel sounds are present in all four quadrants. EXTREMITIES: No clubbing, cyanosis, or edema. SKIN: Normal; no rash; no jaundice. 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 (Roxy Hawley) Assessment and Plan Plan - Anemia ( hgb of 6 on admission)/ rectal bleeding for over a year secondary to hemorrhoids per patient - States copious amounts of blood filling the toilet monthly for a week duration at a time, showed me photos at his phone Hgb currently is 8 s/p 2 units of blood, hemodynamically stable, CEA 1.5. Never had EGD/colonoscopy before - Hemorrhoids- progressively getting worse in severity " a fist full" some improvement in pain and bleeding today - Loose stools- He has been taking care of family member with active C-diff, however stools are Negative for C-diff, stools neg - Acute renal insufficiency- Nephrology on the case, likely secondary to dehydration, - UTI- urine cx no growth 48h - Pneumonia/sepsis/dyspnea- multilobular PNA , abx, O2 NC - Leukocytosis- trending down, afebrile, , ESR > 140, blood cx no growth 2d - Weight loss- 10-15 ibs in the last 3 weeks due to poor appetite and Po intake - Hypokalemia- Secondary to above, replaced by attending - Hx of CABG, COPD per attending Plan: - Heart healthy diet - Patient will need EGD/colonoscopy once respiratory status improved and medically stable - Cont. ppi - Monitor hh - Transfuse as needed - Consider CRS consult pending results above - Supportive care - Patient seen and examined by Dr. Burch and myself and this note is written on his behalf. (Roxy Hawley) Physician Comments Seen and examined, plan as above, will follow up with you. (Marii Burch MD) Roxy Hawley Nov 24, 2016 17:20 Marii Burch MD Nov 24, 2016 18:47
[2016-11-25] VITALS (10 sets, daily range): BP systolic 127–162; BP diastolic 66–78; PULSE 96–113; RESP 16–24; TEMP 97.6–101; O2SAT 92–96
[2016-11-25] MEDS: TEMAZEPAM 15 MG CAP PO PRN (00:03)
[2016-11-25] MEDS: ACETAMINOPHEN 325 MG TAB PO PRN (01:20)
[2016-11-25] MEDS: SODIUM BICARBONATE 8.4% INJ 150 MEQ in DEXTROSE 5% IN WATE 1000ML INJ 1,000 ML IV SCH ×4 (02:51→15:30)
[2016-11-25] MEDS: PANTOPRAZOLE INJ 80 MG in SODIUM CHLORIDE 0.9% INJ 100 ML IV SCH ×2 (03:37→15:30)
[2016-11-25 06:38] LABS: AUTOMATED NEUTROPHIL # 14.1 TH/MM3 (1.8-7.7); EOSINOPHIL # 0.1 TH/MM3 (0-0.4); EOSINOPHIL % 0.9 % (0.0-4.0); HEMATOCRIT 24.7 % (39.0-51.0); HEMO FLAGS DIFF FINAL; LYMPH % 3.8 % (9.0-44.0); LYMPHOCYTE # 0.6 TH/MM3 (1.0-4.8); MEAN CELL VOLUME 90.7 FL (80.0-100.0); MEAN CORPUSCULAR HEMOGLOBIN 31.2 PG (27.0-34.0); MEAN CORPUSCULAR HGB CONC 34.4 % (32.0-36.0); MONO % 2.8 % (0.0-8.0); NEUT % 92.5 % (16.0-70.0); PLATELET COUNT 229 TH/MM3 (150-450); RED BLOOD COUNT 2.72 MIL/MM3 (4.50-5.90); WHITE BLOOD COUNT 15.3 TH/MM3 (4.0-11.0)
[2016-11-25 07:29] LABS: POTASSIUM 2.8 MEQ/L (3.5-5.1)
[2016-11-25 07:43] LABS: CALCIUM-PROTEIN CORRECTED 7.6 MG/DL (8.5-10.1)
[2016-11-25] MEDS: RESP: ALBUTEROL 2.5 MG/IPRATROPIUM 0.5 MG NEB (SCH) NEB ×4 (09:07→19:32)
[2016-11-25] MEDS: SEVELAMER CARBONATE 800 MG TAB PO SCH ×3 (09:12→18:32)
[2016-11-25] MEDS: DOCUSATE SODIUM 50 MG/SENNA 8.6 MG TAB PO SCH ×2 (09:13→21:00)
[2016-11-25] MEDS: CEFEPIME INJ 1,000 MG in SODIUM CHLORIDE 0.9% INJ 100 ML IV SCH (09:13)
[2016-11-25] MEDS ORDERED: POTASSIUM CHLORIDE 10 MEQ CONTROLLED RELEASE TAB PO ONE ×3 (09:30→19:00)
[2016-11-25] MEDS ORDERED: VANCOMYCIN 1,000 MG/NS 250 ML IV ONE ×2 (10:00)
--- NOTE | 2016-11-25 10:30 | HHI.PR ---
Subjective Remarks Follow-up GI bleed/acute on chronic kidney disease/anemia 11/24/16-patient seen and examined, complains of low back pain as well as insomnia 3 days. Hemoglobin 7.1 but denies any hemoptysis or hematemesis. 11/25/16-patient seen and examined, 3 L nasal cannula with some shortness of breath. Responded to 2 units blood transfusion yesterday. He was somnolent this a.m. and states he feels groggy Objective Vitals Vital Signs Date Time Temp Pulse Resp B/P (MAP) Pulse Ox O2 Delivery O2 Flow Rate FiO2 11/25/16 09:11 92 Nasal Cannula 3.00 11/25/16 08:00 98.6 96 20 146/78 (100) 94 11/25/16 04:00 Nasal Cannula 3.00 11/25/16 04:00 97.6 98 24 135/76 (95) 93 11/25/16 00:00 101.0 109 20 127/71 (89) 92 11/24/16 23:49 Nasal Cannula 3.00 11/24/16 22:43 98.2 101 20 150/74 (99) 94 11/24/16 20:56 98.3 113 21 150/76 (100) 11/24/16 20:37 98.2 115 20 143/73 (96) 92 11/24/16 20:06 104 11/24/16 20:00 98.3 104 24 150/75 (100) 94 11/24/16 20:00 Nasal Cannula 3.00 11/24/16 19:59 93 Nasal Cannula 4.00 11/24/16 16:00 100.2 107 24 125/79 (94) 94 11/24/16 15:41 98.9 104 27 124/71 (88) 92 11/24/16 15:11 100.2 100 24 125/79 (94) 92 11/24/16 11:45 98.2 100 18 114/67 (83) 96 I/O 11/24/16 11/24/16 11/24/16 11/25/16 11/25/16 11/25/16 07:00 15:00 23:00 07:00 15:00 23:00 Intake Total 2022 ml 2242 ml 2000 ml Output Total 325 ml 1000 ml 1300 ml Balance 1697 ml 1242 ml 700 ml Intake Oral 480 ml 480 ml IV Total 1542 ml 1762 ml 1750 ml Packed Cells 250 ml Output Urine Total 325 ml 1000 ml 1300 ml # Bowel Movements 1 0 2 Result Diagram: 11/25/1645711/25/16457 Objective Remarks GENERAL: NAD SKIN: Warm and dry. HEAD: Normocephalic. EYES: No scleral icterus. No injection or drainage. NECK: Supple, trachea midline. No JVD or lymphadenopathy. CARDIOVASCULAR: Regular rate and rhythm without murmurs, gallops, or rubs. RESPIRATORY: Breath sounds equal bilaterally. No accessory muscle use. GASTROINTESTINAL: Abdomen soft, non-tender, nondistended. MUSCULOSKELETAL: No cyanosis, or edema. BACK: Nontender without obvious deformity. No CVA tenderness. A/P Problem List: (1) Sepsis ICD Code: A41.9 - Sepsis, unspecified organism Status: Acute (2) Acute renal failure ICD Code: N17.9 - Acute kidney failure, unspecified Status: Acute (3) Pneumonia ICD Code: J18.9 - Pneumonia, unspecified organism Status: Acute (4) Coronary artery disease ICD Code: I25.10 - Coronary artery disease Status: Acute (5) Anemia ICD Code: D64.9 - Anemia Status: Acute (6) Hematochezia ICD Code: K92.1 - Melena Status: Acute (7) Hypokalemia ICD Code: E87.6 - Hypokalemia Status: Acute Assessment and Plan 55-year-old man with Sepsis suspect secondary to right multilobular pneumonia - CXR reviewed showing suspicion for right lung pneumonia. Urine culture so far negative. -Currently on cefepime pending culture report Acute kidney failure suspect secondary to severe dehydration -Management per nephrology - kidney/renal/bladder ordered and reviewed showing mild pelvocaliectasis right kidney. Hypokalemia -Management per nephrology Normochromic, normocytic anemia suspect secondary to acute blood loss/ hematochezia Diarrhea -Transfused total of 5 RBCs since admission -Continue with PPI drip and appreciate input from GI Chronic obstructive pulmonary disease - Continue scheduled and PRN duonebs. - Supplemental O2 to keep sats >88%. -Abnormal chest x-ray Hypoalbuminemia suspect secondary to poor PO intake Severe emancipation - Tumor markers were ordered and reviewed. DVT Prophylaxis: SCDs/TEDs. Hold chemical prophylaxis for now due to possibly GI bleed with anemia. Problem Qualifiers (1) Sepsis: (2) Acute renal failure: (3) Pneumonia: (4) Anemia: Broderick Barajas MD Nov 25, 2016 10:30
[2016-11-25] MEDS: CHOLECALCIFEROL (VIT D3) 1000 UNIT TAB PO SCH (11:57)
[2016-11-25 12:30] LABS: BACTERIA, URINE OCC /hpf; BLOOD, URINE SMALL (NEG); GLUCOSE,URINE 150 mg/dL (NEG); KETONE, URINE 10 mg/dL (NEG); MUCUS URINE FEW /lpf (OCC); NITRITE,URINE NEG (NEG); SQUAMOUS EPITHELIAL CELL URINE <1 /hpf (0-5); URINE COLOR LIGHT-YELLOW (YELLW/STRAW)
[2016-11-25 12:31] LABS: COMMENT (UR) CATH-CULTURE IND; CULTURE IF INDICATED CATH CULTURE IND
[2016-11-25] MEDS: POTASSIUM CHLOR 20 MEQ PREMIX 100 ML IV SCH ×2 (15:29→18:32)
--- NOTE | 2016-11-25 16:57 | HHI.NPPN ---
Subjective Renal Failure: Acute Interval History Renal function only slightly better. He is reporting fatigue. Adequate urine output. Hypokalemia persists. (Milla Pack) Review of Systems General Constitutional: Fatigue (Milla Pack) Objective Data Data 11/25/16 11/26/16 18:59 06:59 Intake Total 100 ml Balance 100 ml IV Total 100 ml Vital Signs Date Time Temp Pulse Resp B/P (MAP) Pulse Ox O2 Delivery O2 Flow Rate FiO2 11/25/16 16:26 94 Nasal Cannula 3.00 11/25/16 16:00 99.2 108 20 127/66 (86) 94 11/25/16 12:00 98.1 107 20 141/77 (98) 96 11/25/16 09:21 Nasal Cannula 3.00 11/25/16 09:11 92 Nasal Cannula 3.00 11/25/16 08:00 98.6 96 20 146/78 (100) 94 11/25/16 04:00 Nasal Cannula 3.00 11/25/16 04:00 97.6 98 24 135/76 (95) 93 11/25/16 00:00 101.0 109 20 127/71 (89) 92 11/24/16 23:49 Nasal Cannula 3.00 11/24/16 22:43 98.2 101 20 150/74 (99) 94 11/24/16 20:56 98.3 113 21 150/76 (100) 11/24/16 20:37 98.2 115 20 143/73 (96) 92 11/24/16 20:06 104 11/24/16 20:00 98.3 104 24 150/75 (100) 94 11/24/16 20:00 Nasal Cannula 3.00 11/24/16 19:59 93 Nasal Cannula 4.00 (Milla Pack) -: 11/25/16 0458 11/25/16 0458 Microbiology 11/25/16 Urine Culture, Received Pending Tubes & Lines: Bergman Drip Comment bicarb gtt (D5W with 150 mEq ) @ 75 cc/hr (Milla Pack) Physical Exam General Appearance: Well Developed, Well Nourished, No Acute Distress, Comfortable (Milla Pack) Eyes Eye Exam: Pupils Equal (Milla Pack [employer] INS[employer]ANCE BILLER) Throat Throat Exam: Oral Mucosa [place] & Moist (Milla Pack. [employer] INSURANCE BILLER) Neck Neck Exam: Neck Supple (Milla Pack [employer]ANCE BILLER) Pulmonary Resp Exam: Decreased Bases (Milla Pack. [employer] INS[employer]ANCE BILLER) Cardiology CV Exam: Regular, Normal Sinus Rhythm, Good Perfusion (Milla Pack B. [employer] INS[employer]ANCE BILLER) Gastrointestinal/Abdomen GI Exam: Soft, Non-Tender, Bowel Sounds Present (Milla Pack [employer] BILLER) Musculoskeletal MS Exam: Normal Tone, Good Strength (Milla Pack. [employer]ANCE BILLER) Integumentary Skin Exam: Dry, Intact (Milla Pack [employer] BILLER) Extremeties Extremities Exam: No Edema, Pedal Pulses Palpable (Milla Pack. [employer] INS[employer]ANCE BILLER) Neurologic Neuro Exam: Alert, Awake, Oriented, Speech Clear (Milla Pack. [employer] INS[employer]ANCE BILLER) Psychiatric Psych Exam: Appropriate Responses (Milla Pack) Assessment/Plan Discussed Condition With: Patient Assessment Summary: SEJAL/Acute Renal Failure Electrolyte Assessment: Hypocalcemia, Hypokalemia, Metabolic Acidosis Problem List: (1) Acute renal failure ICD Codes: N17.9 - Acute kidney failure, unspecified Status: Acute Plan: Baseline creatinine of 2.0 from July of 2013. SEJAL was thought to be due to intravascular volume depletion, but may have progressed to ATN serum electrophoresis is in process he is non oliguric with a bergman bicarb gtt has been stopped he has hyperphosphatemia, increase Renvela to 1600 mg with meals and monitor response replace potassium as below obtain daily labs he may require dialysis support this admission; we again discussed dialysis with the patient, he would like to wait as long as possible he has glucosuria without hyperglycemia or history of diabetes; this may indicate a proximal renal tubule disorder (2) Acidosis ICD Codes: E87.2 - Acidosis Status: Acute Plan: consistent with GI losses from diarrhea as well as renal failure. improving stop bicarb drip (3) Hypokalemia ICD Codes: E87.6 - Hypokalemia Status: Acute Plan: severe, persistent ordered IV and PO replacement follow labs (4) GI bleed ICD Codes: K92.2 - Gastrointestinal hemorrhage, unspecified Status: Acute Plan: Hb improved GI following, needs EGD/colonoscopy this admission on protonix gtt (5) Sepsis ICD Codes: A41.9 - Sepsis, unspecified organism Status: Acute Plan: febrile with leukocytosis, Apparent pneumonia per chest x-ray questionable UTI. Urine culture is in process On Cefepime, off Vancomycin follow clinically (6) Hypocalcemia ICD Codes: E83.51 - Hypocalcemia Plan: due to vitamin D deficiency, replacement ordered (Milla Pack) Plan patient was seen and examined. Renal function is about the same. May need dialysis. He continues to have hypokalemia, acidosis, and glucosuria in spite of normal blood glucose. Fanconi's syndrome? May need dialysis. (Jim Zuluaga MD) Problem Qualifiers (1) Acute renal failure: (2) GI bleed: (3) Sepsis: Milla Pack Nov 25, 2016 16:57 Jim Zuluaga MD Nov 25, 2016 22:13
[2016-11-25] MEDS ORDERED: CALCIUM CHLORIDE INJ 1 GM in DEXTROSE 5% IN WATER 100ML INJ 100 ML IV ONE ×2 (18:00)
[2016-11-25] MEDS ORDERED: POTASSIUM CHLOR 20 MEQ PREMIX 100 ML IV ONE (18:18)
[2016-11-25 22:49] LABS: HEMOGLOBIN A1a 2.7 %; HEMOGLOBIN A1b 1.3 %; HEMOGLOBIN Ao 80.2 %; HEMOGLOBIN P3 7.4 %
[2016-11-26] VITALS (9 sets, daily range): BP systolic 140–159; BP diastolic 77–86; PULSE 100–110; RESP 20–26; TEMP 97.2–99.4; O2SAT 92–94
[2016-11-26] MEDS: TEMAZEPAM 15 MG CAP PO PRN (02:38)
[2016-11-26] MEDS: PANTOPRAZOLE INJ 80 MG in SODIUM CHLORIDE 0.9% INJ 100 ML IV SCH ×3 (02:39→20:15)
[2016-11-26] MEDS: RESP: ALBUTEROL 2.5 MG/IPRATROPIUM 0.5 MG NEB (SCH) NEB ×4 (08:19→19:36)
[2016-11-26] MEDS ORDERED: POTASSIUM CHLORIDE 20 MEQ CONTROLLED RELEASE TAB PO ONE (09:30)
[2016-11-26] MEDS: DOCUSATE SODIUM 50 MG/SENNA 8.6 MG TAB PO SCH ×2 (09:35→18:34)
[2016-11-26] MEDS: CHOLECALCIFEROL (VIT D3) 1000 UNIT TAB PO SCH (09:35)
[2016-11-26] MEDS: CEFEPIME INJ 1,000 MG in SODIUM CHLORIDE 0.9% INJ 100 ML IV SCH (09:36)
[2016-11-26] MEDS: SEVELAMER CARBONATE 800 MG TAB PO SCH ×3 (09:44→18:09)
--- NOTE | 2016-11-26 09:56 | HHI.PR ---
Subjective Remarks Follow-up GI bleed/acute on chronic kidney disease/anemia 11/24/16-patient seen and examined, complains of low back pain as well as insomnia 3 days. Hemoglobin 7.1 but denies any hemoptysis or hematemesis. 11/25/16-patient seen and examined, 3 L nasal cannula with some shortness of breath. Responded to 2 units blood transfusion yesterday. He was somnolent this a.m. and states he feels groggy 11/26/16-patient seen and examined, much more alert and oriented today still with some shortness of breath however denies any chest pain. No GI bleed. Patient with some rash Objective Vitals Vital Signs Date Time Temp Pulse Resp B/P (MAP) Pulse Ox O2 Delivery O2 Flow Rate FiO2 11/26/16 08:22 94 Nasal Cannula 3.00 11/26/16 08:00 97.7 100 20 159/86 (110) 94 11/26/16 05:10 97.2 109 20 147/85 (105) 93 11/26/16 04:26 Nasal Cannula 3.00 Humidified 11/26/16 00:00 Nasal Cannula 3.00 11/25/16 23:12 99.0 109 20 162/77 (105) 95 11/25/16 20:24 110 11/25/16 20:07 98.4 113 16 151/74 (99) 92 11/25/16 20:00 Nasal Cannula 3.00 11/25/16 16:26 94 Nasal Cannula 3.00 11/25/16 16:00 99.2 108 20 127/66 (86) 94 11/25/16 12:00 98.1 107 20 141/77 (98) 96 I/O 11/25/16 11/25/16 11/25/16 11/26/16 11/26/16 11/26/16 07:00 15:00 23:00 07:00 15:00 23:00 Intake Total 2000 ml 100 ml 2533 ml 868 ml Output Total 1300 ml 1350 ml 900 ml Balance 700 ml 100 ml 1183 ml -32 ml Intake Oral 480 ml 720 ml IV Total 1750 ml 100 ml 2053 ml 148 ml Packed Cells 250 ml Output Urine Total 1300 ml 1350 ml 900 ml # Bowel Movements 2 2 3 Result Diagram: 11/25/1645711/25/16457 Objective Remarks GENERAL: NAD SKIN: Warm and dry.Rash to his abdomen HEAD: Normocephalic. EYES: No scleral icterus. No injection or drainage. NECK: Supple, trachea midline. No JVD or lymphadenopathy. CARDIOVASCULAR: Regular rate and rhythm without murmurs, gallops, or rubs. RESPIRATORY: Breath sounds equal bilaterally. No accessory muscle use. GASTROINTESTINAL: Abdomen soft, non-tender, nondistended. MUSCULOSKELETAL: No cyanosis, or edema. BACK: Nontender without obvious deformity. No CVA tenderness. A/P Problem List: (1) Sepsis ICD Code: A41.9 - Sepsis, unspecified organism Status: Acute (2) Acute renal failure ICD Code: N17.9 - Acute kidney failure, unspecified Status: Acute (3) Pneumonia ICD Code: J18.9 - Pneumonia, unspecified organism Status: Acute (4) Coronary artery disease ICD Code: I25.10 - Coronary artery disease Status: Acute (5) Anemia ICD Code: D64.9 - Anemia Status: Acute (6) Hematochezia ICD Code: K92.1 - Melena Status: Acute (7) Hypokalemia ICD Code: E87.6 - Hypokalemia Status: Acute Assessment and Plan 55-year-old man with Sepsis suspect secondary to right multilobular pneumonia - CXR reviewed showing suspicion for right lung pneumonia. Urine culture so far negative. -Currently on cefepime Acute kidney failure suspect secondary to severe dehydration -Management per nephrology - US kidney/renal/bladder ordered and reviewed showing mild pelvocaliectasis right kidney. Hypokalemia -Management per nephrology Normochromic, normocytic anemia suspect secondary to acute blood loss/ hematochezia Diarrhea -Transfused total of 5 RBCs since admission -Continue with PPI drip and appreciate input from GI Chronic obstructive pulmonary disease - Continue scheduled and PRN duonebs. - Supplemental O2 to keep sats >88%. - Check chest CT 11/26/16 Skin rash reaction to medication? Benadryl PO x 1 now Hypoalbuminemia suspect secondary to poor PO intake Severe emancipation - Tumor markers were ordered and reviewed. DVT Prophylaxis: SCDs/TEDs. Hold chemical prophylaxis for now due to possibly GI bleed with anemia. Problem Qualifiers (1) Sepsis: (2) Acute renal failure: (3) Pneumonia: (4) Anemia: Broderick Barajas MD Nov 26, 2016 09:56
[2016-11-26] MEDS ORDERED: diphenhydrAMINE HCL 25 MG CAP PO ONE (10:00)
[2016-11-26 12:58] LABS: BICARBONATE 19.5 MEQ/L (21.0-32.0)
--- NOTE | 2016-11-26 13:45 | HHI.NPPN ---
Subjective Renal Failure: Acute Interval History Renal function is slightly better. Remains hypokalemic. Non oliguric. (Milla Pack) Review of Systems General Constitutional: Fatigue (Milla Pack) Objective Data Data Vital Signs Date Time Temp Pulse Resp B/P (MAP) Pulse Ox O2 Delivery O2 Flow Rate FiO2 11/26/16 08:22 94 Nasal Cannula 3.00 11/26/16 08:00 97.7 100 20 159/86 (110) 94 11/26/16 05:10 97.2 109 20 147/85 (105) 93 11/26/16 04:26 Nasal Cannula 3.00 Humidified 11/26/16 00:00 Nasal Cannula 3.00 11/25/16 23:12 99.0 109 20 162/77 (105) 95 11/25/16 20:24 110 11/25/16 20:07 98.4 113 16 151/74 (99) 92 11/25/16 20:00 Nasal Cannula 3.00 11/25/16 16:26 94 Nasal Cannula 3.00 11/25/16 16:00 99.2 108 20 127/66 (86) 94 (Milla Pack) -: 11/25/16 0458 11/26/16 1130 Imaging Last Impressions Chest X-Ray 11/22/16 1447 Signed Impressions: Service Date/Time: Tuesday, November 22, 2016 15:09 - CONCLUSION: Dense airspace process right lung highly suspicious for pneumonia. Obdulia Garcia MD Renal Ultrasound 11/22/16 0000 Signed Impressions: Service Date/Time: Tuesday, November 22, 2016 17:14 - CONCLUSION: Mild pelvocaliectasis right kidney not present previously. Obdulia Garcia MD Tubes & Lines: Bergman (Milla Pack) Physical Exam General Appearance: Well Developed, Well Nourished, No Acute Distress, Comfortable (Milla Pack) Eyes Eye Exam: Pupils Equal (Milla Pack) Throat Throat Exam: Oral Mucosa [place] & Moist (Milla Pack) Neck Neck Exam: Neck Supple (Milla Pack) Pulmonary Resp Exam: Clear Bilaterally, Breath Sounds Equal, Decreased Bases (Milla Pack) Cardiology CV Exam: Regular, Normal Sinus Rhythm, Good Perfusion (Milla Pack) Gastrointestinal/Abdomen GI Exam: Soft, Non-Tender, Bowel Sounds Present (Milla Pack) Musculoskeletal MS Exam: Normal Tone, Good Strength (Milla Pack) Integumentary Skin Exam: Dry, Intact (Milla Pack) Extremeties Extremities Exam: No Edema, Pedal Pulses Palpable (Milla Pack) Neurologic Neuro Exam: Alert, Awake, Oriented, Speech Clear (Milla Pack) Psychiatric Psych Exam: Appropriate Responses (Milla Pack) Assessment/Plan Discussed Condition With: Patient Assessment Summary: SEJAL/Acute Renal Failure Electrolyte Assessment: Hypocalcemia, Hypokalemia, Metabolic Acidosis Problem List: (1) Acute renal failure ICD Codes: N17.9 - Acute kidney failure, unspecified Status: Acute Plan: Baseline creatinine of 2.0 from July of 2013. SEJAL was thought to be due to intravascular volume depletion, but may have progressed to ATN serum electrophoresis is in process he is non oliguric with a bergman off IVF renal function improving slowly he has hyperphosphatemia, continue Renvela at 1600 mg with meals and monitor response hypokalemic, see below obtain daily labs he may require dialysis support this admission; we again discussed dialysis with the patient, he would like to wait as long as possible he has glucosuria without hyperglycemia or history of diabetes; this may indicate a proximal renal tubule disorder (Fanconi's syndrome?) (2) Acidosis ICD Codes: E87.2 - Acidosis Status: Acute Plan: consistent with GI losses from diarrhea as well as renal failure. improving, monitor (3) Hypokalemia ICD Codes: E87.6 - Hypokalemia Status: Acute Plan: imrpoved slighlty he may have a proximal tubule disorder ordered IV and PO replacement follow labs 24 hour urine for potassium and protein has been ordered (4) GI bleed ICD Codes: K92.2 - Gastrointestinal hemorrhage, unspecified Status: Acute Plan: Hb improved GI following, needs EGD/colonoscopy this admission on protonix gtt (5) Sepsis ICD Codes: A41.9 - Sepsis, unspecified organism Status: Acute Plan: febrile with leukocytosis, Apparent pneumonia per chest x-ray CT chest ordered questionable UTI. Urine culture is in process On Cefepime, follow clinically (6) Hypocalcemia ICD Codes: E83.51 - Hypocalcemia Plan: with a vitamin D deficiency, worsened by hyperphosphatemia replacement ordered monitor (Milla Pack) Problem List: (1) Acute renal failure ICD Codes: N17.9 - Acute kidney failure, unspecified Status: Acute Plan: Baseline creatinine of 2.0 from July of 2013. SEJAL was thought to be due to intravascular volume depletion, but may have progressed to ATN serum electrophoresis is in process he is non oliguric with a bergman off IVF renal function improving slowly he has hyperphosphatemia, continue Renvela at 1600 mg with meals and monitor response hypokalemic, see below obtain daily labs he may require dialysis support this admission; we again discussed dialysis with the patient, he would like to wait as long as possible he has glucosuria without hyperglycemia or history of diabetes; this may indicate a proximal renal tubule disorder (Fanconi's syndrome?) (2) Acidosis ICD Codes: E87.2 - Acidosis Status: Acute Plan: consistent with GI losses from diarrhea as well as renal failure. improving, monitor (3) Hypokalemia ICD Codes: E87.6 - Hypokalemia Status: Acute Plan: imrpoved slighlty he may have a proximal tubule disorder ordered IV and PO replacement follow labs 24 hour urine for potassium and protein has been ordered (4) GI bleed ICD Codes: K92.2 - Gastrointestinal hemorrhage, unspecified Status: Acute Plan: Hb improved GI following, needs EGD/colonoscopy this admission on protonix gtt (5) Sepsis ICD Codes: A41.9 - Sepsis, unspecified organism Status: Acute Plan: febrile with leukocytosis, Apparent pneumonia per chest x-ray CT chest ordered questionable UTI. Urine culture is in process On Cefepime, follow clinically (6) Hypocalcemia ICD Codes: E83.51 - Hypocalcemia Plan: with a vitamin D deficiency, worsened by hyperphosphatemia replacement ordered monitor Plan patient was seen and examined. We will obtain 24 hour urine collection for potassium and protein. Etiology renal failure not entirely clear. ATN is certainly a possibility. Serologies ordered. I have ordered hepatitis profile and HIV testing. May require dialysis during this admission. (Jim Zuluaga MD) Problem Qualifiers (1) Acute renal failure: (2) GI bleed: (3) Sepsis: Milla Pack Nov 26, 2016 13:45 Jim Zuluaga MD Nov 26, 2016 20:25
--- NOTE | 2016-11-26 14:41 | RADRPT ---
EXAM DATE/TIME: 11/26/2016 13:54 [facility] COMPARISON: CT THORAX W/O CONTRAST, May 25, 2013, 10:00. INDICATIONS : Severe shortness of breath . RADIATION DOSE: 5.38 CTDIvol (mGy) MEDICAL HISTORY : Chronic obstructive pulmonary disease. Hypertension. SURGICAL HISTORY : Carotid stent. Three vessle bypass ENCOUNTER: Initial ACUITY: 1 day PAIN SCALE: 0/10 LOCATION: Bilateral chest TECHNIQUE: Volumetric scanning of the chest was performed. Using automated exposure control and adjustment of t he mA and/or kV according to patient size, radiation dose was kept as low as reasonably achievable to obtain optimal diagnostic quality images. DICOM format image data is available electronically for r eview and comparison. Follow-up recommendations for detected pulmonary nodules are based at a minimum on nodule size and pa tient risk factors according to Fleischner Society Guidelines. FINDINGS: PA identified with a one point centimeter precarinal, 1.2 cm subcarinal node, right hilar adenopathy and right paratracheal adenopathy up to 1.8 cm. There is dense consolidation involving the right uppe r lobe with air bronchogram formation seen as well as extensive air lucencies felt to represent a com bination of cavitation as well as severe emphysematous changes. There is also patchy consolidation in the right lower lobe and a large right effusion. A small left effusion is present with left basilar atelectasis and severe emphysema. There is atherosclerotic calcification of the aorta. Cholelithiasis is suspected. The patient has had previous CABG and median sternotomy wires are noted. CONCLUSION: 1. Dense consolidative right upper lobe pneumonia on a background of severe emphysema with cavitary f oci within the consolidated areas. 2. There is patchy right middle and lower lobe pneumonia as well. 3. Bilateral effusions right greater than left. 4. Associated mediastinal adenopathy. Vasu Barrientos MD on November 26, 2016 at 14:30 Board Certified Radiologist. This report was verified electronically.
--- NOTE | 2016-11-26 16:26 | HHI.GIFU ---
Subjective Remarks Resting in bed. Labored breathing even with speaking. Does not believe he has had any rectal bleeding today. He does have diarrhea- 5 loose stools. No n/v. (April Melgar) Objective Vitals I&O Vital Signs Date Time Temp Pulse Resp B/P (MAP) Pulse Ox O2 Delivery O2 Flow Rate FiO2 11/26/16 12:00 97.9 104 20 141/82 (101) 93 11/26/16 08:22 94 Nasal Cannula 3.00 11/26/16 08:00 97.7 100 20 159/86 (110) 94 11/26/16 05:10 97.2 109 20 147/85 (105) 93 11/26/16 04:26 Nasal Cannula 3.00 Humidified 11/26/16 00:00 Nasal Cannula 3.00 11/25/16 23:12 99.0 109 20 162/77 (105) 95 11/25/16 20:24 110 11/25/16 20:07 98.4 113 16 151/74 (99) 92 11/25/16 20:00 Nasal Cannula 3.00 11/25/16 16:26 94 Nasal Cannula 3.00 I/O 11/25/16 11/25/16 11/25/16 11/26/16 11/26/16 11/26/16 07:00 15:00 23:00 07:00 15:00 23:00 Intake Total 2000 ml 100 ml 2533 ml 868 ml Output Total 1300 ml 1350 ml 900 ml Balance 700 ml 100 ml 1183 ml -32 ml Intake Oral 480 ml 720 ml IV Total 1750 ml 100 ml 2053 ml 148 ml Packed Cells 250 ml Output Urine Total 1300 ml 1350 ml 900 ml # Bowel Movements 2 2 3 Laboratory Laboratory Tests Test 11/26/16 05:54 11/26/16 08:55 11/26/16 11:30 Random Vancomycin Level 27.9 Urine Eosinophils NONE SEEN Urine Random Creatinine 38 Urine Random Total Protein 289 Urine Random Sodium 69 Urine Protein/Creatinine Ratio 7.61 Blood Urea Nitrogen 92 Creatinine 13.46 Random Glucose 121 Albumin 1.0 Calcium Level 7.6 Phosphorus Level 8.7 Sodium Level 142 Potassium Level 3.0 Chloride Level 107 Carbon Dioxide Level 19.5 Anion Gap 16 Estimat Glomerular Filtration Rate 4 Date/Time Source Procedure Growth Status 11/22/16 15:20 Blood Peripheral Aerobic Blood Culture - Preliminary NO GROWTH IN 4 DAYS Resulted 11/22/16 15:20 Blood Peripheral Anaerobic Blood Culture - Preliminary NO GROWTH IN 4 DAYS Resulted 11/22/16 20:30 Stool Stool Cryptosporidium Exam - Final NEGATIVE - NO CRYPTOSPORIDIUM ANTIGEN... Complete 11/22/16 20:30 Stool Stool Stool Pus (MANOLO) - Final FEW WBC'S Complete 11/22/16 20:30 Stool Stool Giardia Antigen (MANOLO) - Final NEGATIVE - NO GIARDIA ANTIGEN DETECTE... Complete 11/25/16 12:00 Urine Catheterized Urine Urine Culture - Preliminary NO GROWTH IN 24 HOURS. Resulted Imaging Last Impressions Chest CT 11/26/16 0000 Signed Impressions: Service Date/Time: Saturday, November 26, 2016 13:54 - CONCLUSION: 1. Dense consolidative right upper lobe pneumonia on a background of severe emphysema with cavitary foci within the consolidated areas. 2. There is patchy right middle and lower lobe pneumonia as well. 3. Bilateral effusions right greater than left. 4. Associated mediastinal adenopathy. Vasu Barrientos MD Chest X-Ray 11/22/16 1447 Signed Impressions: Service Date/Time: Tuesday, November 22, 2016 15:09 - CONCLUSION: Dense airspace process right lung highly suspicious for pneumonia. Obdulia Garcia MD Renal Ultrasound 11/22/16 0000 Signed Impressions: Service Date/Time: Tuesday, November 22, 2016 17:14 - CONCLUSION: Mild pelvocaliectasis right kidney not present previously. Obdulia Garcia MD Physical Exam HEENT: Normocephalic; atraumatic; no jaundice. CHEST: Diminished throughout, SOB to conversation. 3L NC CARDIAC: Regular, tachycardia ABDOMEN: Soft, nondistended, nontender; no hepatosplenomegaly; bowel sounds are present in all four quadrants. EXTREMITIES: No clubbing, cyanosis, or edema. SKIN: Normal; no rash; no jaundice. 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 (April Melgar) Assessment and Plan Plan ASSESSMENT: - Anemia ( hgb of 6 on admission) with rectal bleeding for over a year secondary to hemorrhoids per patient - States copious amounts of blood filling the toilet monthly for a week duration at a time. S/P 4 units of PRBC. HH 8.5/24.7. Would benefit from EGD/Colonoscopy, but patient is still having significant sob/labored breathing even with speaking. Not a candidate for procedure at this time. - Hemorrhoids. Add hydrocortisone suppositories - Diarrhea. CDiff negative. No enteric pathogens, negative for cryptosporidium , negative for giardia. Few wbc. D/W patient trial of imodium- does not want to take. Is open to trying probiotics. - ARF with electrolytes. Creat 13.46. Renal following, discussing dialysis with patient- he is wanting to wait as long as possible to give his kidneys a chance to recover. Defer to renal. - Resp. Insufficiency with multilobular PNA/severe emphysema, per pulmonary - Leukocytosis- trending down, afebrile, , ESR > 140, blood cx no growth 2d - Weight loss- 10-15 ibs in the last 3 weeks due to poor appetite and Po intake - Hypokalemia- Secondary to above, replaced by attending - Hx of CABG, COPD per attending Plan: - Heart healthy diet - Cont. PPI - Hydrocortisone suppositories - Trial of probiotics - Monitor hh - Transfuse as needed - EGD/Colonoscopy once respiratory status optimized unless there is significant active bleeding. - Patient seen and examined by Dr. Burch and myself and this note is written on his behalf. (April Melgar) Physician Comments As above, still not fit for endoscopic evaluation. Will follow up with you periodically. (Marii Burch MD) April Melgar Nov 26, 2016 16:26 Marii Burch MD Nov 26, 2016 22:14
[2016-11-26] MEDS: LACTOBACILLUS ACIDOPHILUS TAB PO SCH (20:37)
[2016-11-26 21:27] LABS: ALBUMIN SPE 1.73 GM/DL (3.50-5.00); ALPHA 1 GLOBULIN 0.72 GM/DL (0.11-0.29); ALPHA 2 GLOBULIN 1.71 GM/DL (0.22-1.00); BETA GLOBULINS (SPE) 0.95 GM/DL (0.53-1.03)
[2016-11-27] VITALS (7 sets, daily range): BP systolic 121–157; BP diastolic 65–93; PULSE 98–108; RESP 18–24; TEMP 97.7–98.1; O2SAT 91–94
[2016-11-27] MEDS: PANTOPRAZOLE INJ 80 MG in SODIUM CHLORIDE 0.9% INJ 100 ML IV SCH ×2 (04:44→13:28)
[2016-11-27] MEDS: RESP: ALBUTEROL 2.5 MG/IPRATROPIUM 0.5 MG NEB (SCH) NEB ×4 (05:50→19:55)
[2016-11-27 08:37] LABS: BASOPHIL # 0.1 TH/MM3 (0-0.2); BASOPHIL % 0.7 % (0.0-2.0); EOSINOPHIL # 0.3 TH/MM3 (0-0.4); EOSINOPHIL % 2.7 % (0.0-4.0); HEMATOCRIT 24.1 % (39.0-51.0); HEMO FLAGS DIFF FINAL; LYMPH % 4.8 % (9.0-44.0); LYMPHOCYTE # 0.6 TH/MM3 (1.0-4.8); MEAN CELL VOLUME 92.1 FL (80.0-100.0); MEAN CORPUSCULAR HEMOGLOBIN 31.3 PG (27.0-34.0); MEAN CORPUSCULAR HGB CONC 33.9 % (32.0-36.0); MONO % 3.7 % (0.0-8.0); NEUT % 88.1 % (16.0-70.0); PLATELET COUNT 185 TH/MM3 (150-450); RED BLOOD COUNT 2.61 MIL/MM3 (4.50-5.90); RED CELL DISTRIBUTION WIDTH 17.5 % (11.6-17.2); WHITE BLOOD COUNT 12.5 TH/MM3 (4.0-11.0)
[2016-11-27 08:55] LABS: BICARBONATE 19.8 MEQ/L (21.0-32.0)
[2016-11-27] MEDS: DOCUSATE SODIUM 50 MG/SENNA 8.6 MG TAB PO SCH ×2 (09:00→20:10)
[2016-11-27] MEDS: LACTOBACILLUS ACIDOPHILUS TAB PO SCH ×2 (09:16→20:10)
[2016-11-27] MEDS: SEVELAMER CARBONATE 800 MG TAB PO SCH ×3 (09:16→17:00)
[2016-11-27] MEDS: CHOLECALCIFEROL (VIT D3) 1000 UNIT TAB PO SCH (09:16)
[2016-11-27] MEDS: CEFEPIME INJ 1,000 MG in SODIUM CHLORIDE 0.9% INJ 100 ML IV SCH (09:17)
[2016-11-27 09:20] LABS: POTASSIUM 2.9 MEQ/L (3.5-5.1)
[2016-11-27] MEDS: HYDROCORTISONE ACETATE 25 MG SUPP RECTAL SCH (09:21)
--- NOTE | 2016-11-27 11:17 | HHI.PR ---
Subjective Remarks Follow-up GI bleed/acute on chronic kidney disease/anemia 11/24/16-patient seen and examined, complains of low back pain as well as insomnia 3 days. Hemoglobin 7.1 but denies any hemoptysis or hematemesis. 11/25/16-patient seen and examined, 3 L nasal cannula with some shortness of breath. Responded to 2 units blood transfusion yesterday. He was somnolent this a.m. and states he feels groggy 11/26/16-patient seen and examined, much more alert and oriented today still with some shortness of breath however denies any chest pain. No GI bleed. Patient with some rash 11/27/16-patient seen and examined, positive for shortness of breath and currently satting 91% on 2 L nasal cannula however accessory muscle. Objective Vitals Vital Signs Date Time Temp Pulse Resp B/P (MAP) Pulse Ox O2 Delivery O2 Flow Rate FiO2 11/27/16 08:00 97.9 98 24 121/65 (83) 92 11/27/16 04:38 97.9 107 22 145/84 (104) 93 11/26/16 23:53 98.3 106 23 145/77 (99) 93 11/26/16 20:00 110 11/26/16 20:00 Room Air 11/26/16 19:44 99.4 107 22 157/84 (108) 93 11/26/16 19:37 92 Nasal Cannula 2.00 11/26/16 16:00 97.6 106 26 140/80 (100) 93 11/26/16 12:00 97.9 104 20 141/82 (101) 93 I/O 11/26/16 11/26/16 11/26/16 11/27/16 11/27/16 11/27/16 06:59 14:59 22:59 06:59 14:59 22:59 Intake Total 868 ml 2400 ml 925 ml 100 ml Output Total 900 ml 3400 ml 1100 ml Balance -32 ml -1000 ml -175 ml 100 ml Intake Oral 720 ml 2400 ml 700 ml IV Total 148 ml 225 ml 100 ml Output Urine Total 900 ml 3400 ml 1100 ml # Bowel Movements 3 6 0 Result Diagram: 11/27/16 0707 11/27/16 0707 Imaging Last Impressions Chest CT 11/26/16 0000 Signed Impressions: Service Date/Time: Saturday, November 26, 2016 13:54 - CONCLUSION: 1. Dense consolidative right upper lobe pneumonia on a background of severe emphysema with cavitary foci within the consolidated areas. 2. There is patchy right middle and lower lobe pneumonia as well. 3. Bilateral effusions right greater than left. 4. Associated mediastinal adenopathy. Vasu Barrientos MD Chest X-Ray 11/22/16 1447 Signed Impressions: Service Date/Time: Tuesday, November 22, 2016 15:09 - CONCLUSION: Dense airspace process right lung highly suspicious for pneumonia. Obdulia Garcia MD Renal Ultrasound 11/22/16 0000 Signed Impressions: Service Date/Time: Tuesday, November 22, 2016 17:14 - CONCLUSION: Mild pelvocaliectasis right kidney not present previously. Obdulia Garcia MD Objective Remarks GENERAL: NAD SKIN: Warm and dry.Rash to his abdomen HEAD: Normocephalic. EYES: No scleral icterus. No injection or drainage. NECK: Supple, trachea midline. No JVD or lymphadenopathy. CARDIOVASCULAR: Regular rate and rhythm without murmurs, gallops, or rubs. RESPIRATORY: Breath sounds equal bilaterally. No accessory muscle use. GASTROINTESTINAL: Abdomen soft, non-tender, nondistended. MUSCULOSKELETAL: No cyanosis, or edema. BACK: Nontender without obvious deformity. No CVA tenderness. A/P Problem List: (1) Sepsis ICD Code: A41.9 - Sepsis, unspecified organism Status: Acute (2) Acute renal failure ICD Code: N17.9 - Acute kidney failure, unspecified Status: Acute (3) Pneumonia ICD Code: J18.9 - Pneumonia, unspecified organism Status: Acute (4) Coronary artery disease ICD Code: I25.10 - Coronary artery disease Status: Acute (5) Anemia ICD Code: D64.9 - Anemia Status: Acute (6) Hematochezia ICD Code: K92.1 - Melena Status: Acute (7) Hypokalemia ICD Code: E87.6 - Hypokalemia Status: Acute Assessment and Plan 55-year-old man with Sepsis suspect secondary to right multilobular pneumonia - Repeat CT chest noted and review by me -Change cefepime to 1 g every 12 hours -Consult pulmonary medicine 11/27/16 Acute kidney failure suspect secondary to severe dehydration -Management per nephrology - US kidney/renal/bladder ordered and reviewed showing mild pelvocaliectasis right kidney. Hypokalemia -Management per nephrology Normochromic, normocytic anemia suspect secondary to acute blood loss/ hematochezia Diarrhea -Transfused total of 5 RBCs since admission -Continue with PPI drip and appreciate input from GI Chronic obstructive pulmonary disease - Continue scheduled and PRN duonebs. - Supplemental O2 to keep sats >88%. - chest CT noted and review by me - Consult pulmonary medicine 11/27/16 Skin rash reaction to medication? Benadryl PO x 1 now Hypoalbuminemia suspect secondary to poor PO intake Severe emancipation - Tumor markers were ordered and reviewed. DVT Prophylaxis: SCDs/TEDs. Hold chemical prophylaxis for now due to possibly GI bleed with anemia. Problem Qualifiers (1) Sepsis: (2) Acute renal failure: (3) Pneumonia: (4) Anemia: Broderick Barajas MD Nov 27, 2016 11:17
[2016-11-27 14:32] LABS: HEPATITIS B SURFACE ANTIBODY 91.9 mIU/mL
[2016-11-27 16:55] LABS: URINE TOTAL PROTEIN TIMED 297.4 MG/DL
[2016-11-27 16:56] LABS: POTASSIUM 24 HOUR URINE 86 MEQ/24HR (40-80); POTASSIUM TIMED URINE 28 MEQ/L
--- NOTE | 2016-11-27 20:23 | HHI.NPPN ---
Subjective Renal Failure: Acute Additional Remarks Patient is alert, no nausea or vomiting, no SOB. Review of Systems General Constitutional: Fatigue Objective Data Data 11/27/16 11/28/16 19:00 07:00 Intake Total 1029 ml Output Total 675 ml Balance 354 ml Intake Oral 720 ml IV Total 309 ml Output Urine Total 675 ml # Bowel Movements 1 Vital Signs Date Time Temp Pulse Resp B/P (MAP) Pulse Ox O2 Delivery O2 Flow Rate FiO2 11/27/16 20:00 97.9 100 22 157/93 (114) 94 11/27/16 19:57 92 Nasal Cannula 2.00 11/27/16 16:00 97.7 99 18 141/78 (99) 91 11/27/16 12:00 98.1 98 20 126/77 (93) 92 11/27/16 08:30 108 11/27/16 08:30 Nasal Cannula 3.00 Humidified 11/27/16 08:00 97.9 98 24 121/65 (83) 92 11/27/16 04:38 97.9 107 22 145/84 (104) 93 11/26/16 23:53 98.3 106 23 145/77 (99) 93 -: 11/27/16 0707 11/27/16 0707 Tubes & Lines: [place] Physical Exam General Appearance: Well Developed, Well Nourished, No Acute Distress, Comfortable Eyes Eye Exam: Pupils Equal Throat Throat Exam: Oral Mucosa [place] & Moist Neck Neck Exam: Neck Supple Pulmonary Resp Exam: Clear Bilaterally, Breath Sounds Equal, Decreased Bases Cardiology CV Exam: Regular, Normal Sinus Rhythm, Good Perfusion Gastrointestinal/Abdomen GI Exam: Soft, Non-Tender, Bowel Sounds Present Musculoskeletal MS Exam: Normal Tone, Good Strength Integumentary Skin Exam: Dry, Intact Extremeties Extremities Exam: Trace Edema Neurologic Neuro Exam: Alert, Awake, Oriented, Speech Clear Psychiatric Psych Exam: Appropriate Responses Assessment/Plan Discussed Condition With: Patient Assessment Summary: SEJAL/Acute Renal Failure Electrolyte Assessment: Hypocalcemia, Hypokalemia, Metabolic Acidosis Problem List: (1) Acute renal failure ICD Codes: N17.9 - Acute kidney failure, unspecified Status: Acute Plan: Baseline creatinine of 2.0 from July of 2013. SEJAL was thought to be due to intravascular volume depletion, but may have progressed to ATN serum electrophoresis is in process he is non oliguric with a bergman off IVF renal function improving slowly he has hyperphosphatemia, continue Renvela at 1600 mg with meals and monitor response hypokalemic he has glucosuria without hyperglycemia or history of diabetes; this may indicate a proximal renal tubule disorder (Fanconi's syndrome?). I did discuss with the patient about possible HD. He agreed, will get PermCath in AM. (2) Acidosis ICD Codes: E87.2 - Acidosis Status: Acute Plan: consistent with GI losses from diarrhea as well as renal failure. improving, monitor (3) Hypokalemia ICD Codes: E87.6 - Hypokalemia Status: Acute Plan: imrpoved slighlty he may have a proximal tubule disorder ordered IV and PO replacement follow labs 24 hour urine for potassium and protein has been ordered (4) GI bleed ICD Codes: K92.2 - Gastrointestinal hemorrhage, unspecified Status: Acute Plan: Hb improved GI following, needs EGD/colonoscopy this admission on protonix gtt (5) Sepsis ICD Codes: A41.9 - Sepsis, unspecified organism Status: Acute Plan: febrile with leukocytosis, Apparent pneumonia per chest x-ray CT chest ordered questionable UTI. Urine culture is in process On Cefepime, follow clinically (6) Hypocalcemia ICD Codes: E83.51 - Hypocalcemia Plan: with a vitamin D deficiency, worsened by hyperphosphatemia replacement ordered monitor Plan patient was seen and examined. We will obtain 24 hour urine collection for potassium and protein. Etiology renal failure not entirely clear. ATN is certainly a possibility. Serologies ordered. I have ordered hepatitis profile and HIV testing. May require dialysis during this admission. Problem Qualifiers (1) Acute renal failure: (2) GI bleed: (3) Sepsis: Ely Coyne MD Nov 27, 2016 20:23
[2016-11-28] VITALS (13 sets, daily range): BP systolic 140–165; BP diastolic 80–97; PULSE 98–106; RESP 18–22; TEMP 97.7–98.8; O2SAT 90–95
[2016-11-28] MEDS: PANTOPRAZOLE INJ 80 MG in SODIUM CHLORIDE 0.9% INJ 100 ML IV SCH ×3 (00:25→22:32)
[2016-11-28] MEDS: RESP: ALBUTEROL 2.5 MG/IPRATROPIUM 0.5 MG NEB (SCH) NEB ×4 (04:06→19:51)
[2016-11-28 08:37] LABS: AUTOMATED NEUTROPHIL # 10.1 TH/MM3 (1.8-7.7); BASOPHIL % 0.4 % (0.0-2.0); EOSINOPHIL # 0.3 TH/MM3 (0-0.4); EOSINOPHIL % 2.6 % (0.0-4.0); HEMATOCRIT 24.1 % (39.0-51.0); LYMPH % 6.6 % (9.0-44.0); LYMPHOCYTE # 0.8 TH/MM3 (1.0-4.8); MEAN CELL VOLUME 92.8 FL (80.0-100.0); MEAN CORPUSCULAR HEMOGLOBIN 30.8 PG (27.0-34.0); MEAN CORPUSCULAR HGB CONC 33.3 % (32.0-36.0); MONO % 4.2 % (0.0-8.0); NEUT % 86.2 % (16.0-70.0); PLATELET COUNT 169 TH/MM3 (150-450); RED CELL DISTRIBUTION WIDTH 17.4 % (11.6-17.2); WHITE BLOOD COUNT 11.7 TH/MM3 (4.0-11.0)
[2016-11-28 08:51] LABS: HEMO FLAGS AUTO DIFF
[2016-11-28 08:54] LABS: BICARBONATE 19.1 MEQ/L (21.0-32.0); TOTAL BILIRUBIN ADULT 0.3 MG/DL (0.2-1.0)
[2016-11-28] MEDS: DOCUSATE SODIUM 50 MG/SENNA 8.6 MG TAB PO SCH ×2 (09:00→20:29)
[2016-11-28 09:07] LABS: POTASSIUM 2.7 MEQ/L (3.5-5.1)
[2016-11-28] MEDS ORDERED: VANCOMYCIN INJ 1,000 MG in SODIUM CHLOR 0.9% 250 ML INJ 250 ML IV SCH (09:45)
[2016-11-28] MEDS: CHOLECALCIFEROL (VIT D3) 1000 UNIT TAB PO SCH (09:45)
[2016-11-28] MEDS: CEFEPIME INJ 1,000 MG in SODIUM CHLORIDE 0.9% INJ 100 ML IV SCH (09:45)
[2016-11-28] MEDS: SEVELAMER CARBONATE 800 MG TAB PO SCH ×3 (09:45→17:00)
[2016-11-28] MEDS: HYDROCORTISONE ACETATE 25 MG SUPP RECTAL SCH (09:45)
[2016-11-28] MEDS ORDERED: ceFAZolin 2 GM PREMIX 50 ML IV SCH (09:45)
[2016-11-28] MEDS: LACTOBACILLUS ACIDOPHILUS TAB PO SCH ×2 (09:45→20:29)
[2016-11-28 10:03] LABS: PLATELET ESTIMATE SMEAR NORMAL (NORMAL); PLATELET MORPHOLOGY NORMAL (NORMAL); SCAN/DIFF AUTO DIFF CONFIRMED
--- NOTE | 2016-11-28 11:15 | HHI.PR ---
Subjective Remarks Follow-up GI bleed/acute on chronic kidney disease/anemia 11/24/16-patient seen and examined, complains of low back pain as well as insomnia 3 days. Hemoglobin 7.1 but denies any hemoptysis or hematemesis. 11/25/16-patient seen and examined, 3 L nasal cannula with some shortness of breath. Responded to 2 units blood transfusion yesterday. He was somnolent this a.m. and states he feels groggy 11/26/16-patient seen and examined, much more alert and oriented today still with some shortness of breath however denies any chest pain. No GI bleed. Patient with some rash 11/27/16-patient seen and examined, positive for shortness of breath and currently satting 91% on 2 L nasal cannula however accessory muscle. 11/28/16-patient seen and examined, and instrument stable and denies any GI bleed. Positive for shortness of breath and currently on 3 L nasal cannula Objective Vitals Vital Signs Date Time Temp Pulse Resp B/P (MAP) Pulse Ox O2 Delivery O2 Flow Rate FiO2 11/28/16 08:37 92 Nasal Cannula 2.00 11/28/16 08:30 Nasal Cannula 3.50 Humidified 11/28/16 08:30 105 11/28/16 08:00 98.8 98 19 153/81 (105) 90 11/28/16 04:11 92 Nasal Cannula 2.00 11/28/16 04:00 98.6 103 22 155/84 (107) 92 11/28/16 04:00 Nasal Cannula 3.00 11/28/16 00:00 98.7 101 20 141/80 (100) 91 11/28/16 00:00 Nasal Cannula 3.00 11/27/16 20:00 107 11/27/16 20:00 97.9 100 22 157/93 (114) 94 11/27/16 20:00 Nasal Cannula 3.00 11/27/16 19:57 92 Nasal Cannula 2.00 11/27/16 16:00 97.7 99 18 141/78 (99) 91 11/27/16 12:00 98.1 98 20 126/77 (93) 92 I/O 11/27/16 11/27/16 11/27/16 11/28/16 11/28/16 11/28/16 07:00 15:00 23:00 07:00 15:00 23:00 Intake Total 925 ml 920 ml 109 ml 642 ml Output Total 1100 ml 675 ml 1350 ml Balance -175 ml 245 ml 109 ml -708 ml Intake Oral 700 ml 720 ml 520 ml IV Total 225 ml 200 ml 109 ml 122 ml Output Urine Total 1100 ml 675 ml 1350 ml # Bowel Movements 0 1 0 Result Diagram: 11/28/1671411/28/16714 Objective Remarks GENERAL: NAD SKIN: Warm and dry.Rash to his abdomen HEAD: Normocephalic. EYES: No scleral icterus. No injection or drainage. NECK: Supple, trachea midline. No JVD or lymphadenopathy. CARDIOVASCULAR: Regular rate and rhythm without murmurs, gallops, or rubs. RESPIRATORY: Breath sounds equal bilaterally. No accessory muscle use. GASTROINTESTINAL: Abdomen soft, non-tender, nondistended. MUSCULOSKELETAL: No cyanosis, or edema. BACK: Nontender without obvious deformity. No CVA tenderness. A/P Problem List: (1) Sepsis ICD Code: A41.9 - Sepsis, unspecified organism Status: Acute (2) Acute renal failure ICD Code: N17.9 - Acute kidney failure, unspecified Status: Acute (3) Pneumonia ICD Code: J18.9 - Pneumonia, unspecified organism Status: Acute (4) Coronary artery disease ICD Code: I25.10 - Coronary artery disease Status: Acute (5) Anemia ICD Code: D64.9 - Anemia Status: Acute (6) Hematochezia ICD Code: K92.1 - Melena Status: Acute (7) Hypokalemia ICD Code: E87.6 - Hypokalemia Status: Acute Assessment and Plan 55-year-old man with Sepsis suspect secondary to right multilobular pneumonia - Repeat CT chest noted and review by ks -Continue cefepime 1 g every 12 hours - pulmonary medicine consultation pending Acute kidney failure suspect secondary to severe dehydration -Management per nephrology - kidney/renal/bladder ordered and reviewed showing mild pelvocaliectasis right kidney. Hypokalemia -Management per nephrology Normochromic, normocytic anemia suspect secondary to acute blood loss/ hematochezia Diarrhea -Transfused total of 5 RBCs since admission -Continue with PPI drip and appreciate input from GI Chronic obstructive pulmonary disease - Continue scheduled and PRN duonebs. - Supplemental O2 to keep sats >88%. - chest CT noted and review by me - pulmonary medicine consultation pending Skin rash Resolved Hypoalbuminemia suspect secondary to poor PO intake Severe emancipation - Tumor markers were ordered and reviewed. DVT Prophylaxis: SCDs/TEDs. Hold chemical prophylaxis for now due to possibly GI bleed with anemia. Problem Qualifiers (1) Sepsis: (2) Acute renal failure: (3) Pneumonia: (4) Anemia: Broderick Barajas MD Nov 28, 2016 11:15
[2016-11-28] MEDS ORDERED: VANCOMYCIN 1,000 MG/NS 250 ML IV ONE ×2 (12:00)
[2016-11-28] MEDS ORDERED: MIDAZOLAM HCL 2 MG/2 ML VIAL ONE (15:25)
[2016-11-28] MEDS ORDERED: fentaNYL CITRATE 250 MCG/5 ML AMP ONE (15:25)
[2016-11-28] MEDS ORDERED: SODIUM CHLOR 0.9% 1000 ML INJ 1,000 ML IV PRN (15:28)
[2016-11-28] MEDS ORDERED: MANNITOL 12.5 GM/50 ML VIAL IV PRN (15:30)
[2016-11-28] MEDS ORDERED: ACETAMINOPHEN 325 MG TAB PO PRN (15:30)
[2016-11-28] MEDS ORDERED: HEPARIN SODIUM - IV 10,000 UNITS/10 ML VIAL IVF PRN (15:30)
[2016-11-28] MEDS ORDERED: NITROGLYCERIN 0.4 MG SL 25 TABS/BTL SL PRN (15:30)
[2016-11-28] MEDS ORDERED: GELATIN 12 MM/7 MM FOAM TOP PRN (15:30)
[2016-11-28] MEDS ORDERED: ONDANSETRON HCL 4 MG/2 ML VIAL IV PRN (15:30)
[2016-11-28] MEDS ORDERED: diphenhydrAMINE HCL 25 MG CAP PO PRN (15:30)
[2016-11-28] MEDS ORDERED: cloNIDine HCL 0.1 MG TAB PO PRN (15:30)
[2016-11-28 15:55] LABS: MYELOPEROXIDASE LESS THAN 1.0 AI (<1.0); PROTEINASE-3 LESS THAN 1.0 AI (<1.0)
[2016-11-28] MEDS ORDERED: LIDOCAINE 1%/EPINEPHrine 1:200,000 PF SOLN 30 ML VIAL ONE (15:57)
--- NOTE | 2016-11-28 16:59 | RADRPT ---
EXAM DATE/TIME: 11/28/2016 15:57 [facility] COMPARISON: No previous studies available for comparison. INDICATIONS : Patient presents with chronic kidney disease in need of dialysis catheter placement. MEDICAL HISTORY : Anxiety CAD with CABG 2013 COPD Tobacco history SURGICAL HISTORY : CABG 2013 ENCOUNTER: Initial ACUITY: 4-6 days PAIN SCORE: 5/10 LOCATION: RUQ FLUORO TIME: 0.5 minutes IMAGE SERIES: 0 SEDATION TIME: 30 minutes ACCESS: Right internal jugular vein SEDATION: 1.) 1.5 mg midazolam (Versed) IV 2.) 75 mcg fentanyl (Sublimaze) IV Prophylactic antibiotics were administered with appropriate pre-procedure timing. Vancomycin within 2 hours of procedure, Ancef (or alternative) within 1 hour of procedure. DEVICE: 1. 15 Belgian dual lumen 23 cm Condon II Plus catheter PROCEDURE : 1. Ultrasound-guided venipuncture. 2. PermaCath placement. 3. Conscious sedation with continuous EKG and oximetry monitoring. The risks, benefits and alternatives to the procedure were explained and verbal and written consent w as obtained. The site was prepped in sterile fashion. Full sterile technique was used, including ca p, mask, sterile gloves and gown and a large sterile sheet. Hand hygiene and 2% chlorhexidine and/or betadine/alcohol prep was utilized per protocol for cutaneous antisepsis. The skin and subcutaneous tissues were infiltrated with local anesthetic solution. Sterile gel and sterile probe cover were u tilized for ultrasound guidance. With ultrasound and fluoroscopic guidance a dermatotomy was created over the prescribed vein. A micr opuncture set was used to access the targeted vein and serial dilatation was performed to accept the prescribed length catheter. A subcutaneous tunnel was created in a retrograde fashion the catheter w as pulled through the tunnel. The catheter was flushed and assembled and locked with heparin. The c atheter was sutured in place. Conscious sedation was performed with the prescribed dosages and duration as above in the presence of an independent trained radiology nurse to assist in the monitoring of the patient. EKG and oximetry remained stable throughout the procedure. The patient tolerated the procedure well and there were n o complications. The patient was sent to post anesthesia recovery in stable condition. CONCLUSION: Uncomplicated PermaCath placement as above. Mustapha Vela Jr., MD on November 28, 2016 at 16:58 Board Certified Radiologist. This report was verified electronically.
--- NOTE | 2016-11-28 18:13 | PD.RAD ---
Post Procedure Progress Note Pre Procedure Diagnosis: (1) Chronic kidney disease Post Procedure Diagnosis: (1) Chronic kidney disease Procedure Date: Nov 28, 2016 Supervising Radiologist: Mustapha Vela JR Proceduralist/Assist: Tj Munoz, RT(R), Chalino Saba RT(R) Anesthesia: Conscious Sedation Plan of Activity Patient to Unit: ROPU Patient Condition: Good See PACS Report for procedural detail/treatment Central Venous Access Device Procedure 1 Right Internal Jugular Hemodialysis Catheter Tunneled Placement dual lumen Arabic: 15 Findings: Permcath in good position and functions well. OK to use. Plan Remove sutures in 2-3 weeks Jr. Dane,Mustapha Moeller MD Nov 28, 2016 18:13
[2016-11-28] MEDS ORDERED: HEPARIN SODIUM - IV 2,000 UNITS/2 ML VIAL IV FLUSH PRN (18:15)
[2016-11-28] MEDS ORDERED: SODIUM CHLORIDE 0.9% FLUSH 10 ML FLUSH IVF PRN (18:15)
--- NOTE | 2016-11-28 19:35 | HHI.NPPN ---
Subjective Renal Failure: Acute Additional Remarks Patient is alert, no nausea or vomiting, no SOB, clinically same. Review of Systems General Constitutional: Fatigue Objective Data Data 11/28/16 11/29/16 19:00 07:00 Intake Total 564 ml Output Total 800 ml Balance -236 ml Intake Oral 120 ml IV Total 444 ml Output Urine Total 800 ml # Bowel Movements 0 Vital Signs Date Time Temp Pulse Resp B/P (MAP) Pulse Ox O2 Delivery O2 Flow Rate FiO2 11/28/16 17:55 101 18 147/83 (104) 93 11/28/16 17:25 103 18 140/93 (109) 95 11/28/16 16:55 106 18 154/93 (113) 95 11/28/16 16:40 98.3 103 18 141/88 (105) 95 11/28/16 12:00 98.0 100 18 155/84 (107) 93 11/28/16 08:37 92 Nasal Cannula 2.00 11/28/16 08:30 Nasal Cannula 3.50 Humidified 11/28/16 08:30 105 11/28/16 08:00 98.8 98 19 153/81 (105) 90 11/28/16 04:11 92 Nasal Cannula 2.00 11/28/16 04:00 98.6 103 22 155/84 (107) 92 11/28/16 04:00 Nasal Cannula 3.00 11/28/16 00:00 98.7 101 20 141/80 (100) 91 11/28/16 00:00 Nasal Cannula 3.00 11/27/16 20:00 107 11/27/16 20:00 97.9 100 22 157/93 (114) 94 11/27/16 20:00 Nasal Cannula 3.00 11/27/16 19:57 92 Nasal Cannula 2.00 -: 11/28/16 0715 11/28/16 0715 Microbiology 11/28/16 Acid Fast Stain, Received Pending 11/28/16 Mycobacterial Culture, Received Pending 11/28/16 Gram Stain, Received Pending 11/28/16 Sputum Culture, Received Pending Tubes & Lines: [place] Physical Exam General Appearance: Well Developed, Well Nourished, No Acute Distress, Comfortable Eyes Eye Exam: Pupils Equal Throat Throat Exam: Oral Mucosa [place] & Moist Neck Neck Exam: Neck Supple Pulmonary Resp Exam: Clear Bilaterally, Breath Sounds Equal, Decreased Bases Cardiology CV Exam: Regular, Normal Sinus Rhythm, Good Perfusion Gastrointestinal/Abdomen GI Exam: Soft, Non-Tender, Bowel Sounds Present Musculoskeletal MS Exam: Normal Tone, Good Strength Integumentary Skin Exam: Dry, Intact Extremeties Extremities Exam: Trace Edema Neurologic Neuro Exam: Alert, Awake, Oriented, Speech Clear Psychiatric Psych Exam: Appropriate Responses Assessment/Plan Discussed Condition With: Patient Assessment Summary: SEJAL/Acute Renal Failure Electrolyte Assessment: Hypocalcemia, Hypokalemia, Metabolic Acidosis Problem List: (1) Acute renal failure ICD Codes: N17.9 - Acute kidney failure, unspecified Status: Acute Plan: Baseline creatinine of 2.0 from July of 2013. SEJAL was thought to be due to intravascular volume depletion, but may have progressed to ATN serum electrophoresis is in process he is non oliguric with a bergman off IVF renal function improving slowly he has hyperphosphatemia, continue Renvela at 1600 mg with meals and monitor response hypokalemic he has glucosuria without hyperglycemia or history of diabetes; this may indicate a proximal renal tubule disorder (Fanconi's syndrome?). I did discuss with the patient about possible HD. To get PermCath and start HD. Will need Kidney Biopsy next week. (2) Acidosis ICD Codes: E87.2 - Acidosis Status: Acute Plan: consistent with GI losses from diarrhea as well as renal failure. improving, monitor (3) Hypokalemia ICD Codes: E87.6 - Hypokalemia Status: Acute Plan: imrpoved slighlty he may have a proximal tubule disorder ordered IV and PO replacement follow labs 24 hour urine for potassium and protein has been ordered (4) GI bleed ICD Codes: K92.2 - Gastrointestinal hemorrhage, unspecified Status: Acute Plan: Hb improved GI following, needs EGD/colonoscopy this admission on protonix gtt (5) Sepsis ICD Codes: A41.9 - Sepsis, unspecified organism Status: Acute Plan: febrile with leukocytosis, Apparent pneumonia per chest x-ray CT chest ordered questionable UTI. Urine culture is in process On Cefepime, follow clinically (6) Hypocalcemia ICD Codes: E83.51 - Hypocalcemia Plan: with a vitamin D deficiency, worsened by hyperphosphatemia replacement ordered monitor Plan patient was seen and examined. We will obtain 24 hour urine collection for potassium and protein. Etiology renal failure not entirely clear. ATN is certainly a possibility. Serologies ordered. I have ordered hepatitis profile and HIV testing. May require dialysis during this admission. Problem Qualifiers (1) Acute renal failure: (2) GI bleed: (3) Sepsis: Ely Coyne MD Nov 28, 2016 19:35
[2016-11-28] MEDS: AZITHROMYCIN INJ 500 MG in SODIUM CHLOR 0.9% 250 ML INJ 250 ML IV SCH (20:29)
--- NOTE | 2016-11-28 21:11 | MB ---
cc: MAE BECKER DATE OF CONSULTATION: 11/28/2016. REASON FOR CONSULTATION: Pneumonia and respiratory distress. HISTORY OF PRESENT ILLNESS: This is a 55-year-old white male with a history of chronic kidney disease and COPD. He has also had previous coronary artery disease with coronary artery bypass grafting. The patient has been having some low grade fevers, weakness, cough, and also had loose stools and rectal bleeding and thus was seen in the emergency room for possible pneumonia. Chest x-ray and a CT scan of the chest were done and the chest x-ray showed a right lung infiltrate. A CT chest showed a dense right upper lobe infiltrate with cavitation as well as infiltrates in the right lower lung. The patient had a low hemoglobin of 6 and his renal functions were markedly abnormal with a creatinine of 16. He was then admitted and started on oxygen via nasal cannula at 2 to 3 liters and has been placed on IV antibiotics including cefepime and also received IV fluids. The CBC also showed an elevated white count. The patient has no hemoptysis. He has lost weight up 10 pounds in the past three weeks. He denies nausea or vomiting. PAST MEDICAL HISTORY: Past history includes: 1. Coronary artery bypass grafting in 2013. 2. History of COPD with emphysema. 3. History of chronic kidney disease. 4. Anxiety disorder. HABITS: The patient smoked one pack per day for over thirty years and apparently quit more than two years ago. No significant alcohol use. ALLERGIES: NO DRUG ALLERGIES LISTED. FAMILY HISTORY: Noncontributory. There is a there is a history of heart disease. REVIEW OF SYSTEMS: The patient has lost weight. He has dizziness and postnasal drip, cough with expectoration, epigastric distress and GI bleed. He has no urinary symptoms. Denies leg or calf pain. He has no skin rash and anxiety. PHYSICAL EXAMINATION: GENERAL: This is a middle-aged averagely built white male who is alert and in no acute distress. VITAL SIGNS: Blood pressure is 130/70, pulse is 90, respirations 24, temperature 99.5. HEAD, EYES, EARS, NOSE, THROAT: Head normocephalic. The pupils are reactive. Tongue is dry. Throat is injected. Nasal mucosa is clear. NECK: The neck is supple. No bruits. No thyroid enlargement. No lymphadenopathy. CHEST: Equal movements. There are scattered coarse wheezes in the upper lung june with crackles in the right mid and lower chest. HEART: Heart sounds are regular. S1 and S2. No murmur. ABDOMEN: Abdomen is soft and protuberant. No masses or tenderness. EXTREMITIES: Varicosities. No edema. No calf tenderness. NEUROLOGIC: Reflexes are normal. No focal deficits. SKIN: Dry and cool. IMPRESSION: 1. Extensive right lung pneumonia with hypoxemia. 2. Chronic kidney disease with acute renal failure. 3. COPD with emphysema and chronic bronchitis. 4. History of coronary artery bypass grafting. PLAN: 1. The patient will be maintained on oxygen at 3 liters. 2. We will continue the cefepime 2 grams IV daily and also Zithromax added at 500 milligrams daily IV for atypicals. 3. Nebulized DuoNeb solution added four times a day. 4. The patient will be dialyzed per the nephrology service. 5. Solu-Medrol 40 milligrams twice a day will be added. 6. Sputum will be sent for gram stain, culture, AFB stain and culture. 7. Pulmonary functions done at the bedside. 8. If the infiltrate does not significantly clear, a bronchoscopy will be scheduled early next week. Thank you Dr. Barajas for this consultation. MD MARJORIE Estrada/ARI /6:50 PM /8:58 PM
[2016-11-29] VITALS (10 sets, daily range): BP systolic 139–151; BP diastolic 72–87; PULSE 82–108; RESP 20–22; TEMP 97.5–99.2; O2SAT 90–93
[2016-11-29] MEDS: RESP: ALBUTEROL 2.5 MG/IPRATROPIUM 0.5 MG NEB (SCH) NEB ×4 (03:51→22:00)
--- NOTE | 2016-11-29 06:12 | RADRPT ---
EXAM DATE/TIME: 11/29/2016 04:50 [facility] COMPARISON: CHEST SINGLE AP, November 22, 2016, 15:09. INDICATIONS : Pneumonia MEDICAL HISTORY : Chronic obstructive pulmonary disease. Myocardial infarction. Hypertension. SURGICAL HISTORY : Triple bypass ENCOUNTER: Subsequent ACUITY: 1 week PAIN SCORE: 0/10 LOCATION: Bilateral chest FINDINGS: A single view of the chest demonstrates significant infiltrate within the right upper lobe. There is more consolidative infiltrate today than on the . Its remaining presumably bleb disease in the ri ght upper lobe. There is persistent interstitial lung disease in the left apex. Right-sided dual-lum en catheter is unchanged. The cardiomediastinal contours are unremarkable. Osseous structures are i ntact. CONCLUSION: Significant infiltrate throughout the right upper lobe and increased than on the . Andre Montemayor MD on November 29, 2016 at 6:09 Board Certified Radiologist. This report was verified electronically.
[2016-11-29] MEDS: SEVELAMER CARBONATE 800 MG TAB PO SCH ×2 (08:00→11:51)
[2016-11-29] MEDS: PANTOPRAZOLE INJ 80 MG in SODIUM CHLORIDE 0.9% INJ 100 ML IV SCH (08:15)
--- NOTE | 2016-11-29 09:42 | HHI.NPPN ---
Subjective Renal Failure: Acute Additional Remarks Patient is alert, no nausea or vomiting, no SOB. Review of Systems General Constitutional: Fatigue Objective Data Data Vital Signs Date Time Temp Pulse Resp B/P (MAP) Pulse Ox O2 Delivery O2 Flow Rate FiO2 11/29/16 08:00 98.1 100 20 151/82 (105) 91 11/29/16 04:00 98.0 108 22 146/72 (96) 93 11/29/16 00:00 98.9 104 22 151/87 (108) 93 11/28/16 20:00 102 11/28/16 20:00 97.7 103 22 165/97 (119) 92 11/28/16 20:00 Nasal Cannula 4.00 11/28/16 19:51 93 Nasal Cannula 4.00 11/28/16 17:55 101 18 147/83 (104) 93 11/28/16 17:25 103 18 140/93 (109) 95 11/28/16 16:55 106 18 154/93 (113) 95 11/28/16 16:40 98.3 103 18 141/88 (105) 95 11/28/16 12:00 98.0 100 18 155/84 (107) 93 -: 11/28/16 0715 11/28/16 0715 Microbiology 11/28/16 Acid Fast Stain, Received Pending 11/28/16 Mycobacterial Culture, Received Pending 11/28/16 Gram Stain - Final, Resulted 11/28/16 Sputum Culture, Resulted Pending Tubes & Lines: Herbert Physical Exam General Appearance: Well Developed, Well Nourished, No Acute Distress, Comfortable Eyes Eye Exam: Pupils Equal Throat Throat Exam: Oral Mucosa [place] & Moist Neck Neck Exam: Neck Supple Pulmonary Resp Exam: Clear Bilaterally, Breath Sounds Equal, Decreased Bases Cardiology CV Exam: Regular, Normal Sinus Rhythm, Good Perfusion Gastrointestinal/Abdomen GI Exam: Soft, Non-Tender, Bowel Sounds Present Musculoskeletal MS Exam: Normal Tone, Good Strength Integumentary Skin Exam: Dry, Intact Extremeties Extremities Exam: Trace Edema Neurologic Neuro Exam: Alert, Awake, Oriented, Speech Clear Psychiatric Psych Exam: Appropriate Responses Assessment/Plan Discussed Condition With: Patient Assessment Summary: SEJAL/Acute Renal Failure Electrolyte Assessment: Hypocalcemia, Hypokalemia, Metabolic Acidosis Problem List: (1) Acute renal failure ICD Codes: N17.9 - Acute kidney failure, unspecified Status: Acute Plan: Baseline creatinine of 2.0 from July of 2013. SEJAL was thought to be due to intravascular volume depletion, but may have progressed to ATN serum electrophoresis neg he is seen during dialysis UF 4 L 4K tolerating it well (2) Acidosis ICD Codes: E87.2 - Acidosis Status: Acute Plan: consistent with GI losses from diarrhea as well as renal failure. improving, monitor (3) GI bleed ICD Codes: K92.2 - Gastrointestinal hemorrhage, unspecified Status: Acute Plan: Hb improved GI following, needs EGD/colonoscopy this admission on protonix gtt (4) Sepsis ICD Codes: A41.9 - Sepsis, unspecified organism Status: Acute Plan: febrile with leukocytosis, Apparent pneumonia per chest x-ray CT chest ordered questionable UTI. Urine culture is in process On Cefepime, follow clinically (5) Hypocalcemia ICD Codes: E83.51 - Hypocalcemia Plan: with a vitamin D deficiency, worsened by hyperphosphatemia replacement ordered monitor Problem Qualifiers (1) Acute renal failure: (2) GI bleed: (3) Sepsis: Cecilio Driver MD Nov 29, 2016 09:42
[2016-11-29] MEDS: SODIUM CHLOR 0.9% 1000 ML INJ 1,000 ML OTHER PRN (09:51)
[2016-11-29] MEDS: GENTAMICIN SULFATE (DIALYSIS USE ONLY) 20 MG/2 ML VIAL IV PRN (09:54)
[2016-11-29] MEDS: HEPARIN SODIUM - IV 10,000 UNITS/10 ML VIAL PRN (09:57)
[2016-11-29] MEDS: HYDROCORTISONE ACETATE 25 MG SUPP RECTAL SCH (11:52)
[2016-11-29] MEDS: DOCUSATE SODIUM 50 MG/SENNA 8.6 MG TAB PO SCH ×2 (11:52→21:00)
[2016-11-29] MEDS: LACTOBACILLUS ACIDOPHILUS TAB PO SCH ×2 (11:52→22:37)
[2016-11-29] MEDS: CHOLECALCIFEROL (VIT D3) 1000 UNIT TAB PO SCH (11:52)
[2016-11-29] MEDS: CEFEPIME INJ 1,000 MG in SODIUM CHLORIDE 0.9% INJ 100 ML IV SCH (11:53)
--- NOTE | 2016-11-29 12:34 | HHI.PR ---
Subjective Remarks Follow-up GI bleed/acute on chronic kidney disease/anemia 11/24/16-patient seen and examined, complains of low back pain as well as insomnia 3 days. Hemoglobin 7.1 but denies any hemoptysis or hematemesis. 11/25/16-patient seen and examined, 3 L nasal cannula with some shortness of breath. Responded to 2 units blood transfusion yesterday. He was somnolent this a.m. and states he feels groggy 11/26/16-patient seen and examined, much more alert and oriented today still with some shortness of breath however denies any chest pain. No GI bleed. Patient with some rash 11/27/16-patient seen and examined, positive for shortness of breath and currently satting 91% on 2 L nasal cannula however accessory muscle. 11/28/16-patient seen and examined, and instrument stable and denies any GI bleed. Positive for shortness of breath and currently on 3 L nasal cannula 11/29/16-patient seen and examined; he had first time HD today Objective Vitals Vital Signs Date Time Temp Pulse Resp B/P (MAP) Pulse Ox O2 Delivery O2 Flow Rate FiO2 11/29/16 12:00 97.5 106 22 139/74 (95) 90 11/29/16 08:00 98.1 100 20 151/82 (105) 91 11/29/16 04:00 98.0 108 22 146/72 (96) 93 11/29/16 00:00 98.9 104 22 151/87 (108) 93 11/28/16 20:00 102 11/28/16 20:00 97.7 103 22 165/97 (119) 92 11/28/16 20:00 Nasal Cannula 4.00 11/28/16 19:51 93 Nasal Cannula 4.00 11/28/16 17:55 101 18 147/83 (104) 93 11/28/16 17:25 103 18 140/93 (109) 95 11/28/16 16:55 106 18 154/93 (113) 95 11/28/16 16:40 98.3 103 18 141/88 (105) 95 I/O 11/28/16 11/28/16 11/28/16 11/29/16 11/29/16 11/29/16 07:00 15:00 23:00 07:00 15:00 23:00 Intake Total 642 ml 470 ml 94 ml 240 ml Output Total 1350 ml 800 ml 1300 ml 3200 ml Balance -708 ml -330 ml 94 ml -1060 ml -3200 ml Intake Oral 520 ml 120 ml 240 ml IV Total 122 ml 350 ml 94 ml Output Urine Total 1350 ml 800 ml 1300 ml Hemodialysis 3200 ml # Bowel Movements 0 0 Result Diagram: 11/28/1671411/28/16714 Objective Remarks GENERAL: NAD SKIN: Warm and dry.Rash to his abdomen HEAD: Normocephalic. EYES: No scleral icterus. No injection or drainage. NECK: Supple, trachea midline. No JVD or lymphadenopathy. CARDIOVASCULAR: Regular rate and rhythm without murmurs, gallops, or rubs. RESPIRATORY: Breath sounds equal bilaterally. No accessory muscle use. GASTROINTESTINAL: Abdomen soft, non-tender, nondistended. MUSCULOSKELETAL: No cyanosis, or edema. BACK: Nontender without obvious deformity. No CVA tenderness. A/P Problem List: (1) Sepsis ICD Code: A41.9 - Sepsis, unspecified organism Status: Acute (2) Acute renal failure ICD Code: N17.9 - Acute kidney failure, unspecified Status: Acute (3) Pneumonia ICD Code: J18.9 - Pneumonia, unspecified organism Status: Acute (4) Coronary artery disease ICD Code: I25.10 - Coronary artery disease Status: Acute (5) Anemia ICD Code: D64.9 - Anemia Status: Acute (6) Hematochezia ICD Code: K92.1 - Melena Status: Acute (7) Hypokalemia ICD Code: E87.6 - Hypokalemia Status: Acute Assessment and Plan 55-year-old man with Sepsis suspect secondary to right multilobular pneumonia -Continue cefepime 1 g every 12 hours - pulmonary medicine consultation appreciated Acute kidney failure ATN? -Management per nephrology - US kidney/renal/bladder ordered and reviewed showing mild pelvocaliectasis right kidney. He had HD today 11/29/16 Hypokalemia -Management per nephrology Normochromic, normocytic anemia suspect secondary to acute blood loss/ hematochezia Diarrhea -Transfused total of 5 RBCs since admission -Continue with PPI drip and appreciate input from GI Chronic obstructive pulmonary disease - Continue scheduled and PRN duonebs. - Supplemental O2 to keep sats >88%. - chest CT noted and review by me - pulmonary medicine consultation appreciated Skin rash Resolved Hypoalbuminemia suspect secondary to poor PO intake Severe emancipation - Tumor markers were ordered and reviewed. DVT Prophylaxis: SCDs/TEDs. Hold chemical prophylaxis for now due to possibly GI bleed with anemia. Problem Qualifiers (1) Sepsis: (2) Acute renal failure: (3) Pneumonia: (4) Anemia: Broderick Barajas MD Nov 29, 2016 12:34
[2016-11-29 13:54] LABS: BLOOD GAS BASE EXCESS 0.6 mmol/L (-2-2); BLOOD GAS CARBOXYHEMOGLOBIN 1.9 % (0-4); BLOOD GAS HCO3 24 mmol/L (22-26); BLOOD GAS METHEMOGLOBIN 0.8 % (0-2); BLOOD GAS O2 HGB SATURATION 90 % (90-100); BLOOD GAS OXYGEN CONTENT 13.8 Vol % (12.0-20.0); BLOOD GAS PCO2 34 mmHg (38-42); BLOOD GAS PO2 66 mmHg (61-120); BLOOD GAS TOTAL HGB 10.9 G/DL (12.0-16.0); CRITICAL VALUE NO; DRAW SITE RT RADIAL; LITER FLOW 4 L/M; NUMBER OF ARTERIAL PUNCTURES 1; OXYGEN DEVICE NASAL CANNULA; STAT YES; TEMP CORR TO 98.6; ULNAR PULSE PRESENT
[2016-11-29] MEDS: AZITHROMYCIN INJ 500 MG in SODIUM CHLOR 0.9% 250 ML INJ 250 ML IV SCH (22:38)
[2016-11-30] VITALS (10 sets, daily range): BP systolic 122–146; BP diastolic 70–83; PULSE 89–108; RESP 20; TEMP 97.6–98.9; O2SAT 92–95
[2016-11-30] MEDS: ACETAMINOPHEN 325 MG TAB PO PRN (00:15)
[2016-11-30] MEDS ORDERED: ACETAMINOPHEN/HYDROcodone 325 MG/5 MG TAB PO ONE (00:45)
--- NOTE | 2016-11-30 03:03 | RADRPT ---
EXAM DATE/TIME: 11/30/2016 01:39 [facility] COMPARISON: No previous studies available for comparison. INDICATIONS : Bilateral arm swelling. MEDICAL HISTORY : Hypertension. Chronic obstructive pulmonary disease. Myocardial infarction. Asthma. Renal failure. Urinary tract infection. Prostate problems. Diarrhea. Ulcer. Osteoporosis. SURGICAL HISTORY : Cardiac bypass. Bone marrow harvest. ENCOUNTER: Initial ACUITY: 4 - 6 days PAIN SCORE: 6/10 LOCATION: Bilateral arms. FINDINGS: RIGHT UPPER EXTREMITY: There is spontaneous flow documented in the brachial, basilic, cephalic, axillary, and subclavian vei ns. The vessels are compressible and augmentation response is documented. No filling defects are se en. The flow is phasic with respiration. Direction of flow in the jugular vein is caudal. LEFT UPPER EXTREMITY: There is spontaneous flow documented in the brachial, basilic, axillary, and subclavian veins. There is a small amount of thrombus in the left cephalic vein The vessels are compressible and augmentati on response is documented. No filling defects are seen. The flow is phasic with respiration. Direc tion of flow in the jugular vein is caudal. CONCLUSION: Unremarkable study except for a small amount of thrombus in the left cephalic vein. Andre Montemayor MD on November 30, 2016 at 3:01 Board Certified Radiologist. This report was verified electronically.
[2016-11-30] MEDS: RESP: ALBUTEROL 2.5 MG/IPRATROPIUM 0.5 MG NEB (SCH) NEB ×4 (03:45→20:01)
[2016-11-30] MEDS: SEVELAMER CARBONATE 800 MG TAB PO SCH ×4 (08:00→18:39)
--- NOTE | 2016-11-30 09:57 | HHI.PR ---
Subjective Remarks Follow-up GI bleed/acute on chronic kidney disease/anemia 11/24/16-patient seen and examined, complains of low back pain as well as insomnia 3 days. Hemoglobin 7.1 but denies any hemoptysis or hematemesis. 11/25/16-patient seen and examined, 3 L nasal cannula with some shortness of breath. Responded to 2 units blood transfusion yesterday. He was somnolent this a.m. and states he feels groggy 11/26/16-patient seen and examined, much more alert and oriented today still with some shortness of breath however denies any chest pain. No GI bleed. Patient with some rash 11/27/16-patient seen and examined, positive for shortness of breath and currently satting 91% on 2 L nasal cannula however accessory muscle. 11/28/16-patient seen and examined, and instrument stable and denies any GI bleed. Positive for shortness of breath and currently on 3 L nasal cannula 11/29/16-patient seen and examined; he had first time HD today 11/30/16-patient seen and examined, complains of itching otherwise stable. Denies any significant shortness of breath Objective Vitals Vital Signs Date Time Temp Pulse Resp B/P (MAP) Pulse Ox O2 Delivery O2 Flow Rate FiO2 11/30/16 08:07 93 Nasal Cannula 4.00 11/30/16 08:00 97.6 95 20 146/83 (104) 93 11/30/16 04:00 97.8 90 20 140/76 (97) 93 11/30/16 00:00 97.8 102 20 134/72 (92) 92 11/30/16 00:00 Nasal Cannula 4.00 11/29/16 22:02 92 Nasal Cannula 4.00 11/29/16 20:00 97.9 82 20 143/79 (100) 92 11/29/16 20:00 Nasal Cannula 4.00 11/29/16 19:55 107 11/29/16 16:00 99.2 99 20 143/76 (98) 92 11/29/16 15:50 90 Nasal Cannula 3.00 11/29/16 12:00 97.5 106 22 139/74 (95) 90 I/O 11/29/16 11/29/16 11/29/16 11/30/16 11/30/16 8/27/17 07:00 15:00 23:00 07:00 15:00 23:00 Intake Total 240 ml 100 ml 720 ml 490 ml Output Total 1300 ml 3200 ml 900 ml 776 ml Balance -1060 ml -3100 ml -180 ml -286 ml Intake Oral 240 ml 720 ml 240 ml IV Total 100 ml 250 ml Output Urine Total 1300 ml 900 ml 775 ml Stool Total 1 ml Hemodialysis 3200 ml # Voids 3 # Bowel Movements 1 Result Diagram: 11/28/1671411/28/16714 Objective Remarks GENERAL: NAD SKIN: Warm and dry.Rash to his abdomen HEAD: Normocephalic. EYES: No scleral icterus. No injection or drainage. NECK: Supple, trachea midline. No JVD or lymphadenopathy. CARDIOVASCULAR: Regular rate and rhythm without murmurs, gallops, or rubs. RESPIRATORY: Breath sounds equal bilaterally. No accessory muscle use. GASTROINTESTINAL: Abdomen soft, non-tender, nondistended. MUSCULOSKELETAL: No cyanosis, or edema. BACK: Nontender without obvious deformity. No CVA tenderness. A/P Problem List: (1) Sepsis ICD Code: A41.9 - Sepsis, unspecified organism Status: Acute (2) Acute renal failure ICD Code: N17.9 - Acute kidney failure, unspecified Status: Acute (3) Pneumonia ICD Code: J18.9 - Pneumonia, unspecified organism Status: Acute (4) Coronary artery disease ICD Code: I25.10 - Coronary artery disease Status: Acute (5) Anemia ICD Code: D64.9 - Anemia Status: Acute (6) Hematochezia ICD Code: K92.1 - Melena Status: Acute (7) Hypokalemia ICD Code: E87.6 - Hypokalemia Status: Acute Assessment and Plan 55-year-old man with Sepsis suspect secondary to right multilobular pneumonia -Continue cefepime 1 g every 12 hours - pulmonary medicine consultation appreciated Acute kidney failure ATN? -Management per nephrology - US kidney/renal/bladder ordered and reviewed showing mild pelvocaliectasis right kidney. He had HD 11/29/16 Hypokalemia -Management per nephrology Normochromic, normocytic anemia suspect secondary to acute blood loss/ hematochezia Diarrhea -Transfused total of 5 RBCs since admission -Continue with PPI drip and appreciate input from GI Chronic obstructive pulmonary disease - Continue scheduled and PRN duonebs. - Supplemental O2 to keep sats >88%. - chest CT noted and review by me - pulmonary medicine consultation appreciated Skin rash and itching Benadryl when necessary Hypoalbuminemia suspect secondary to poor PO intake Severe emancipation - Tumor markers were ordered and reviewed. DVT Prophylaxis: SCDs/TEDs. Hold chemical prophylaxis for now due to possibly GI bleed with anemia. Problem Qualifiers (1) Sepsis: (2) Acute renal failure: (3) Pneumonia: (4) Anemia: Broderick Barajas MD Nov 30, 2016 09:57
[2016-11-30] MEDS ORDERED: VANCOMYCIN 1,000 MG/NS 250 ML IV ONE ×2 (12:00)
[2016-11-30] MEDS: ALBUMIN HUMAN 25% 25 GM/100 ML BAGP IV PRN (12:01)
--- NOTE | 2016-11-30 12:01 | HHI.NPPN ---
Subjective Renal Failure: Acute Additional Remarks Patient is alert, no nausea or vomiting, no SOB. Review of Systems General Constitutional: Fatigue Objective Data Data Vital Signs Date Time Temp Pulse Resp B/P (MAP) Pulse Ox O2 Delivery O2 Flow Rate FiO2 11/30/16 08:07 93 Nasal Cannula 4.00 11/30/16 08:00 97.6 95 20 146/83 (104) 93 11/30/16 04:00 97.8 90 20 140/76 (97) 93 11/30/16 00:00 97.8 102 20 134/72 (92) 92 11/30/16 00:00 Nasal Cannula 4.00 11/29/16 22:02 92 Nasal Cannula 4.00 11/29/16 20:00 97.9 82 20 143/79 (100) 92 11/29/16 20:00 Nasal Cannula 4.00 11/29/16 19:55 107 11/29/16 16:00 99.2 99 20 143/76 (98) 92 11/29/16 15:50 90 Nasal Cannula 3.00 -: 11/28/16 0715 11/30/16 0840 Tubes & Lines: Herbert Physical Exam General Appearance: Well Developed, Well Nourished, No Acute Distress, Comfortable Eyes Eye Exam: Pupils Equal Throat Throat Exam: Oral Mucosa [place] & Moist Neck Neck Exam: Neck Supple Pulmonary Resp Exam: Clear Bilaterally, Breath Sounds Equal, Decreased Bases Cardiology CV Exam: Regular, Normal Sinus Rhythm, Good Perfusion Gastrointestinal/Abdomen GI Exam: Soft, Non-Tender, Bowel Sounds Present Musculoskeletal MS Exam: Normal Tone, Good Strength Integumentary Skin Exam: Dry, Intact Extremeties Extremities Exam: Trace Edema Neurologic Neuro Exam: Alert, Awake, Oriented, Speech Clear Psychiatric Psych Exam: Appropriate Responses Assessment/Plan Discussed Condition With: Patient Assessment Summary: SEJAL/Acute Renal Failure Electrolyte Assessment: Hypocalcemia, Hypokalemia, Metabolic Acidosis Problem List: (1) Acute renal failure ICD Codes: N17.9 - Acute kidney failure, unspecified Status: Acute Plan: Baseline creatinine of 2.0 from July of 2013. SEJAL was thought to be due to intravascular volume depletion, but may have progressed to ATN serum electrophoresis neg he is seen during dialysis UF 3 L 2K tolerating it well follows with Dr. Zuluaga (2) Acidosis ICD Codes: E87.2 - Acidosis Status: Acute Plan: consistent with GI losses from diarrhea as well as renal failure. improving, monitor (3) GI bleed ICD Codes: K92.2 - Gastrointestinal hemorrhage, unspecified Status: Acute Plan: Hb improved GI following, needs EGD/colonoscopy this admission on protonix gtt (4) Sepsis ICD Codes: A41.9 - Sepsis, unspecified organism Status: Acute Plan: febrile with leukocytosis, Apparent pneumonia per chest x-ray CT chest ordered questionable UTI. Urine culture is in process On Cefepime, follow clinically (5) Hypocalcemia ICD Codes: E83.51 - Hypocalcemia Plan: with a vitamin D deficiency, worsened by hyperphosphatemia replacement ordered monitor Problem Qualifiers (1) Acute renal failure: (2) GI bleed: (3) Sepsis: Cecilio Driver MD Nov 30, 2016 12:01
[2016-11-30] MEDS: SODIUM CHLORIDE 0.9% FLUSH 10 ML FLUSH IV FLUSH PRN (12:02)
[2016-11-30] MEDS: GENTAMICIN SULFATE (DIALYSIS USE ONLY) 20 MG/2 ML VIAL IV PRN (12:02)
[2016-11-30] MEDS: SODIUM CHLOR 0.9% 1000 ML INJ 1,000 ML OTHER PRN (12:02)
[2016-11-30] MEDS: EPOETIN ALFA 10,000 UNITS/ML VIAL IV PRN (12:03)
[2016-11-30] MEDS: HEPARIN SODIUM - IV 10,000 UNITS/10 ML VIAL PRN (12:03)
[2016-11-30] MEDS: CEFEPIME INJ 1,000 MG in SODIUM CHLORIDE 0.9% INJ 100 ML IV SCH (13:58)
[2016-11-30] MEDS: CHOLECALCIFEROL (VIT D3) 1000 UNIT TAB PO SCH (13:59)
[2016-11-30] MEDS: DOCUSATE SODIUM 50 MG/SENNA 8.6 MG TAB PO SCH ×2 (13:59→21:00)
[2016-11-30] MEDS: LACTOBACILLUS ACIDOPHILUS TAB PO SCH ×2 (13:59→21:36)
[2016-11-30] MEDS: HYDROCORTISONE ACETATE 25 MG SUPP RECTAL SCH (13:59)
[2016-11-30] MEDS: AZITHROMYCIN INJ 500 MG in SODIUM CHLOR 0.9% 250 ML INJ 250 ML IV SCH (21:37)
[2016-12-01] VITALS (9 sets, daily range): BP systolic 129–138; BP diastolic 61–78; PULSE 94–104; RESP 18–20; TEMP 97.3–99; O2SAT 93–96
[2016-12-01] MEDS: diphenhydrAMINE HCL 25 MG CAP PO PRN (00:26)
[2016-12-01] MEDS: RESP: ALBUTEROL 2.5 MG/IPRATROPIUM 0.5 MG NEB (SCH) NEB (04:18)
[2016-12-01 06:19] LABS: AUTOMATED NEUTROPHIL # 7.2 TH/MM3 (1.8-7.7); BASOPHIL # 0.1 TH/MM3 (0-0.2); BASOPHIL % 0.6 % (0.0-2.0); EOSINOPHIL # 0.4 TH/MM3 (0-0.4); HEMATOCRIT 24.6 % (39.0-51.0); HEMO FLAGS DIFF FINAL; LYMPH % 16.2 % (9.0-44.0); LYMPHOCYTE # 1.5 TH/MM3 (1.0-4.8); MEAN CELL VOLUME 92.8 FL (80.0-100.0); MEAN CORPUSCULAR HGB CONC 34.5 % (32.0-36.0); MONO % 4.3 % (0.0-8.0); NEUT % 74.9 % (16.0-70.0); PLATELET COUNT 103 TH/MM3 (150-450); RED BLOOD COUNT 2.65 MIL/MM3 (4.50-5.90); RED CELL DISTRIBUTION WIDTH 17.4 % (11.6-17.2); WHITE BLOOD COUNT 9.6 TH/MM3 (4.0-11.0)
[2016-12-01 08:06] LABS: BICARBONATE 27.3 MEQ/L (21.0-32.0)
[2016-12-01 08:12] LABS: POTASSIUM 2.4 MEQ/L (3.5-5.1)
[2016-12-01] MEDS ORDERED: POTASSIUM CHLORIDE 20 MEQ CONTROLLED RELEASE TAB PO ONE ×2 (08:30→13:00)
[2016-12-01] MEDS: HYDROCORTISONE ACETATE 25 MG SUPP RECTAL SCH ×2 (09:00→10:11)
[2016-12-01] MEDS: DOCUSATE SODIUM 50 MG/SENNA 8.6 MG TAB PO SCH ×3 (09:00→21:00)
[2016-12-01] MEDS: CHOLECALCIFEROL (VIT D3) 1000 UNIT TAB PO SCH (10:10)
[2016-12-01] MEDS: LACTOBACILLUS ACIDOPHILUS TAB PO SCH ×2 (10:10→21:23)
[2016-12-01] MEDS: CEFEPIME INJ 1,000 MG in SODIUM CHLORIDE 0.9% INJ 100 ML IV SCH (10:11)
[2016-12-01] MEDS ORDERED: POTASSIUM CHLOR 20 MEQ PREMIX 100 ML IV SCH (11:00)
--- NOTE | 2016-12-01 11:08 | HHI.PR ---
Subjective Remarks Follow-up GI bleed/acute on chronic kidney disease/anemia 11/24/16-patient seen and examined, complains of low back pain as well as insomnia 3 days. Hemoglobin 7.1 but denies any hemoptysis or hematemesis. 11/25/16-patient seen and examined, 3 L nasal cannula with some shortness of breath. Responded to 2 units blood transfusion yesterday. He was somnolent this a.m. and states he feels groggy 11/26/16-patient seen and examined, much more alert and oriented today still with some shortness of breath however denies any chest pain. No GI bleed. Patient with some rash 11/27/16-patient seen and examined, positive for shortness of breath and currently satting 91% on 2 L nasal cannula however accessory muscle. 11/28/16-patient seen and examined, and instrument stable and denies any GI bleed. Positive for shortness of breath and currently on 3 L nasal cannula 11/29/16-patient seen and examined; he had first time HD today 11/30/16-patient seen and examined, complains of itching otherwise stable. Denies any significant shortness of breath 12/01/16-patient seen and examined, improving renal indices. Patient denies any significant shortness of breath today. Denies any itching. Afebrile. Potassium 2.4 Objective Vitals Vital Signs Date Time Temp Pulse Resp B/P (MAP) Pulse Ox O2 Delivery O2 Flow Rate FiO2 12/01/16 10:26 93 Nasal Cannula 3.00 12/01/16 04:00 98.9 94 20 137/73 (94) 93 12/01/16 00:00 99.0 96 20 129/70 (89) 94 11/30/16 20:02 95 Nasal Cannula 3.00 11/30/16 20:00 Nasal Cannula 3.00 11/30/16 20:00 98.9 107 20 133/73 (93) 94 11/30/16 19:57 106 11/30/16 16:00 98.4 104 20 138/70 (92) 92 11/30/16 13:20 98.7 108 20 122/73 (89) 95 I/O 11/30/16 11/30/16 11/30/16 12/01/16 12/01/16 12/01/16 07:00 15:00 23:00 07:00 15:00 23:00 Intake Total 490 ml 100 ml 1260 ml 325 ml Output Total 776 ml 3000 ml 350 ml 700 ml Balance -286 ml -2900 ml 910 ml -375 ml Intake Oral 240 ml 760 ml 290 ml IV Total 250 ml 100 ml 500 ml 35 ml Output Urine Total 775 ml 350 ml 700 ml Stool Total 1 ml Hemodialysis 3000 ml # Voids 3 # Bowel Movements 0 Result Diagram: 12/01/1651012/01/16510 Objective Remarks GENERAL: NAD SKIN: Warm and dry.Rash to his abdomen HEAD: Normocephalic. EYES: No scleral icterus. No injection or drainage. NECK: Supple, trachea midline. No JVD or lymphadenopathy. CARDIOVASCULAR: Regular rate and rhythm without murmurs, gallops, or rubs. RESPIRATORY: Breath sounds equal bilaterally. No accessory muscle use. GASTROINTESTINAL: Abdomen soft, non-tender, nondistended. MUSCULOSKELETAL: No cyanosis, or edema. BACK: Nontender without obvious deformity. No CVA tenderness. A/P Problem List: (1) Sepsis ICD Code: A41.9 - Sepsis, unspecified organism Status: Acute (2) Acute renal failure ICD Code: N17.9 - Acute kidney failure, unspecified Status: Acute (3) Pneumonia ICD Code: J18.9 - Pneumonia, unspecified organism Status: Acute (4) Coronary artery disease ICD Code: I25.10 - Coronary artery disease Status: Acute (5) Anemia ICD Code: D64.9 - Anemia Status: Acute (6) Hematochezia ICD Code: K92.1 - Melena Status: Acute (7) Hypokalemia ICD Code: E87.6 - Hypokalemia Status: Acute Assessment and Plan 55-year-old man with Sepsis suspect secondary to right multilobular pneumonia-resolved -Continue cefepime 1 g every 12 hours Leukocytosis Resolved Acute kidney failure ATN? -Renal indices improving -Management per nephrology - US kidney/renal/bladder ordered and reviewed showing mild pelvocaliectasis right kidney. He had HD 11/29/16 Hypokalemia -Management per nephrology Normochromic, normocytic anemia suspect secondary to acute blood loss/ hematochezia -Transfused total of 5 RBCs since admission, H&H stable -Discontinue PPI drip and start Protonix 40 mg twice a day ; appreciate input from GI Chronic obstructive pulmonary disease - Continue scheduled and PRN duonebs. - Supplemental O2 to keep sats >88%. - pulmonary medicine consultation appreciated Skin rash and itching Improving with Benadryl when necessary Hypoalbuminemia suspect secondary to poor PO intake Severe emancipation - Tumor markers were ordered and reviewed. DVT Prophylaxis: SCDs/TEDs. Hold chemical prophylaxis for now due to possibly GI bleed with anemia. Problem Qualifiers (1) Sepsis: (2) Acute renal failure: (3) Pneumonia: (4) Anemia: Broderick Barajas MD Dec 01, 2016 11:08
--- NOTE | 2016-12-01 11:47 | HHI.NPPN ---
Subjective Renal Failure: Acute Interval History He had dialysis Thursday and Thursday. He is making good amount of urine. (Milla Pack) Review of Systems General Constitutional: Fatigue (Milla Pack) Objective Data Data 12/01/16 12/02/16 19:00 07:00 Intake Total 48.3 ml Balance 48.3 ml IV Total 48.3 ml Vital Signs Date Time Temp Pulse Resp B/P (MAP) Pulse Ox O2 Delivery O2 Flow Rate FiO2 12/01/16 10:26 93 Nasal Cannula 3.00 12/01/16 04:00 98.9 94 20 137/73 (94) 93 12/01/16 00:00 99.0 96 20 129/70 (89) 94 11/30/16 20:02 95 Nasal Cannula 3.00 11/30/16 20:00 Nasal Cannula 3.00 11/30/16 20:00 98.9 107 20 133/73 (93) 94 11/30/16 19:57 106 11/30/16 16:00 98.4 104 20 138/70 (92) 92 11/30/16 13:20 98.7 108 20 122/73 (89) 95 (Milla Pack) -: 12/01/16 0511 12/01/16 0511 Imaging Last Impressions Upper Extremity Ultrasound 11/30/16 0000 Signed Impressions: Service Date/Time: Wednesday, November 30, 2016 01:39 - CONCLUSION: Unremarkable study except for a small amount of thrombus in the left cephalic vein. Andre Montemayor MD Chest X-Ray 11/29/16 0600 Signed Impressions: Service Date/Time: Tuesday, November 29, 2016 04:50 - CONCLUSION: Significant infiltrate throughout the right upper lobe and increased than on the . Andre Montemayor MD Catheter Placement X-Ray 11/28/16 0000 Signed Impressions: Service Date/Time: Monday, November 28, 2016 15:57 - CONCLUSION: Uncomplicated PermaCath placement as above. Mustapha Vela Jr., MD Chest CT 11/26/16 0000 Signed Impressions: Service Date/Time: Saturday, November 26, 2016 13:54 - CONCLUSION: 1. Dense consolidative right upper lobe pneumonia on a background of severe emphysema with cavitary foci within the consolidated areas. 2. There is patchy right middle and lower lobe pneumonia as well. 3. Bilateral effusions right greater than left. 4. Associated mediastinal adenopathy. Vasu Barrientos MD Renal Ultrasound 11/22/16 0000 Signed Impressions: Service Date/Time: Tuesday, November 22, 2016 17:14 - CONCLUSION: Mild pelvocaliectasis right kidney not present previously. Obdulia Garcia MD Tubes & Lines: Perma-Cath, Herbert (Sirena,Milla B. HUMAN RESOURCES COMMUNICATIONS MANAGER) Physical Exam General Appearance: Well Developed, Well Nourished, No Acute Distress, Comfortable (Sirena,Milla B. HUMAN RESOURCES COMMUNICATIONS MANAGER) Eyes Eye Exam: Pupils Equal, Pupils Reactive (Sirena,Milla B. HUMAN RESOURCES COMMUNICATIONS MANAGER) Throat Throat Exam: Oral Mucosa Anchor & Moist (Sirena,Milla B. HUMAN RESOURCES COMMUNICATIONS MANAGER) Neck Neck Exam: Neck Supple (Sirena,Milla B. HUMAN RESOURCES COMMUNICATIONS MANAGER) Pulmonary Resp Exam: Clear Bilaterally, Breath Sounds Equal, Decreased Bases (Sirena,Milla B. HUMAN RESOURCES COMMUNICATIONS MANAGER) Cardiology CV Exam: Regular, Normal Sinus Rhythm, Good Perfusion (Sirena,Milla B. HUMAN RESOURCES COMMUNICATIONS MANAGER) Gastrointestinal/Abdomen GI Exam: Soft, Non-Tender, Bowel Sounds Present (Sirena,Milla B. HUMAN RESOURCES COMMUNICATIONS MANAGER) Musculoskeletal MS Exam: Joints Intact, Normal Tone, Good Strength (Sirena,Milla B. HUMAN RESOURCES COMMUNICATIONS MANAGER) Integumentary Skin Exam: Clear, Warm, Dry, Intact (Sirena,Milla B. HUMAN RESOURCES COMMUNICATIONS MANAGER) Extremeties Extremities Exam: No Edema, Pedal Pulses Palpable (Sirena,Milla B. HUMAN RESOURCES COMMUNICATIONS MANAGER) Neurologic Neuro Exam: Alert, Awake, Oriented, Speech Clear (Sirena,Milla B. HUMAN RESOURCES COMMUNICATIONS MANAGER) Psychiatric Psych Exam: Appropriate Responses (Sirena,Milla B. HUMAN RESOURCES COMMUNICATIONS MANAGER) Assessment/Plan Discussed Condition With: Patient Assessment Summary: SEJAL/Acute Renal Failure Electrolyte Assessment: Hypocalcemia, Hypokalemia, Metabolic Acidosis Problem List: (1) Acute renal failure ICD Codes: N17.9 - Acute kidney failure, unspecified Status: Acute Plan: Baseline creatinine of 2.0 from July of 2013. etiology of SEJAL is not clear he required hemodialysis Thursday/Thursday continue HD as needed TTS he would benefit from renal biopsy for unexplained heavy proteinuria, we discussed the risks/benefits and he agrees (order placed for tomorrow AM) repeat labs in am HD if needed not on IVF (2) Acidosis ICD Codes: E87.2 - Acidosis Status: Acute Plan: corrected, monitor (3) GI bleed ICD Codes: K92.2 - Gastrointestinal hemorrhage, unspecified Status: Acute Plan: Hb improved GI following, needs EGD/colonoscopy this admission off protonix gtt (4) Sepsis ICD Codes: A41.9 - Sepsis, unspecified organism Status: Acute Plan: being treated for pneumonia On Cefepime, follow clinically (5) Hypocalcemia ICD Codes: E83.51 - Hypocalcemia Plan: with a vitamin D deficiency, improving monitor (Milla Pack) Plan patient was seen and examined. Long discussion with the patient. He will have renal biopsy. Dialysis as needed. Monitor labs and urine output. (Jim Zuluaga MD) Problem Qualifiers (1) Acute renal failure: (2) GI bleed: (3) Sepsis: Milla Pack Dec 01, 2016 11:47 Jim Zuluaga MD Dec 02, 2016 10:11
[2016-12-01] MEDS: SEVELAMER CARBONATE 800 MG TAB PO SCH ×2 (13:39→17:30)
--- NOTE | 2016-12-01 17:28 | HHI.GIFU ---
Subjective Remarks Pt resting in bed. OT at bedside. Says he feels better, less SOB. He is still having scant bright red blood with BM on wipe, is noticing it more now that he is having more BM. (Roxy Hawley) Objective Vitals I&O Vital Signs Date Time Temp Pulse Resp B/P (MAP) Pulse Ox O2 Delivery O2 Flow Rate FiO2 12/01/16 12:00 98.3 99 20 129/61 (83) 93 12/01/16 10:26 93 Nasal Cannula 3.00 12/01/16 08:00 3.00 12/01/16 08:00 94 12/01/16 08:00 98.8 97 20 137/70 (92) 94 12/01/16 04:00 98.9 94 20 137/73 (94) 93 12/01/16 00:00 99.0 96 20 129/70 (89) 94 11/30/16 20:02 95 Nasal Cannula 3.00 11/30/16 20:00 Nasal Cannula 3.00 11/30/16 20:00 98.9 107 20 133/73 (93) 94 11/30/16 19:57 106 I/O 11/30/16 11/30/16 11/30/16 12/01/16 12/01/16 12/01/16 07:00 15:00 23:00 07:00 15:00 23:00 Intake Total 490 ml 100 ml 1260 ml 325 ml 48.3 ml Output Total 776 ml 3000 ml 350 ml 700 ml Balance -286 ml -2900 ml 910 ml -375 ml 48.3 ml Intake Oral 240 ml 760 ml 290 ml IV Total 250 ml 100 ml 500 ml 35 ml 48.3 ml Output Urine Total 775 ml 350 ml 700 ml Stool Total 1 ml Hemodialysis 3000 ml # Voids 3 # Bowel Movements 0 Laboratory Laboratory Tests Test 12/01/16 05:11 White Blood Count 9.6 Red Blood Count 2.65 Hemoglobin 8.5 Hematocrit 24.6 Mean Corpuscular Volume 92.8 Mean Corpuscular Hemoglobin 32.0 Mean Corpuscular Hemoglobin Concent 34.5 Red Cell Distribution Width 17.4 Platelet Count 103 Mean Platelet Volume 10.0 Neutrophils (%) (Auto) 74.9 Lymphocytes (%) (Auto) 16.2 Monocytes (%) (Auto) 4.3 Eosinophils (%) (Auto) 4.0 Basophils (%) (Auto) 0.6 Neutrophils # (Auto) 7.2 Lymphocytes # (Auto) 1.5 Monocytes # (Auto) 0.4 Eosinophils # (Auto) 0.4 Basophils # (Auto) 0.1 CBC Comment DIFF FINAL Differential Comment Blood Urea Nitrogen 36 Creatinine 6.16 Random Glucose 128 Calcium Level 7.5 Phosphorus Level 4.6 Sodium Level 143 Potassium Level 2.4 Chloride Level 106 Carbon Dioxide Level 27.3 Anion Gap 10 Estimat Glomerular Filtration Rate 10 Date/Time Source Procedure Growth Status 11/22/16 15:20 Blood Peripheral Aerobic Blood Culture - Final NO GROWTH IN 5 DAYS Complete 11/22/16 15:20 Blood Peripheral Anaerobic Blood Culture - Final NO GROWTH IN 5 DAYS Complete 11/22/16 20:30 Stool Stool Cryptosporidium Exam - Final NEGATIVE - NO CRYPTOSPORIDIUM ANTIGEN... Complete 11/22/16 20:30 Stool Stool Stool Pus (MANOLO) - Final FEW WBC'S Complete 11/22/16 20:30 Stool Stool Giardia Antigen (MANOLO) - Final NEGATIVE - NO GIARDIA ANTIGEN DETECTE... Complete 11/28/16 18:00 Sputum Expectorated Sputum Acid Fast Stain - Final NO ACID FAST BACILLI SEEN Resulted 11/28/16 18:00 Sputum Expectorated Sputum Mycobacterial Culture Pending Resulted 11/25/16 12:00 Urine Catheterized Urine Urine Culture - Final NO GROWTH IN 48 HOURS. Complete Physical Exam HEENT: Normocephalic; atraumatic; no jaundice. CHEST: Diminished throughout, 3L NC CARDIAC: Regular, tachycardia ABDOMEN: Soft, nondistended, nontender; no hepatosplenomegaly; bowel sounds are present in all four quadrants. EXTREMITIES: No clubbing, cyanosis, or edema. SKIN: Normal; no rash; no jaundice. PERSONAL TRAINER: No focal deficits; alert and oriented times three. (Roxy Hawley [facility]) Assessment and Plan Plan ASSESSMENT: - Anemia ( hgb of 6 on admission) with rectal bleeding for over a year secondary to hemorrhoids per patient - States copious amounts of blood filling the toilet monthly for a week duration at a time. S/P 4 units of PRBC. HH stable Would benefit from EGD/Colonoscopy, tentatively this week now that respiratory status seems to have improved, will away pulmonary consult. - Hemorrhoids. Add hydrocortisone suppositories - Diarrhea. CDiff negative. No enteric pathogens, negative for cryptosporidium , negative for giardia. Few wbc. D/W patient trial of imodium- does not want to take. Is open to trying probiotics. - ARF with electrolytes. improving. Renal following,started HD Defer to renal. biopsy tomorrow. - Resp. Insufficiency with multilobular PNA/severe emphysema, per pulmonary - Leukocytosis- trending down, afebrile, , ESR > 140, blood cx no growth 2d - Weight loss- 10-15 ibs in the last 3 weeks due to poor appetite and Po intake - Hypokalemia- Secondary to above, replaced by attending - Hx of CABG, COPD per attending Plan: - Heart healthy diet - Cont. PPI - Hydrocortisone suppositories - Monitor hh - Transfuse as needed - EGD/Colonoscopy possibly this week - await pulmonary medicine consult - Patient seen and examined by Dr. Burch and myself and this note is written on his behalf. (Roxy Hawley) Physician Comments Plan as above, will follow up with you periodically pending medical clearance for endoscopic evaluation. (Marii Burch MD) Roxy Hawley Dec 01, 2016 17:28 Marii Burch MD Dec 01, 2016 22:05
--- NOTE | 2016-12-01 18:08 | HHI.PR ---
Subjective Remarks Alert and breathing easier. No fever.Will have dialysis Sputum is clear. CXR still shows a Large right infiltrate Objective Vital Signs Date Time Temp Pulse Resp B/P (MAP) Pulse Ox O2 Delivery O2 Flow Rate FiO2 12/01/16 16:00 97.7 103 20 138/78 (98) 96 12/01/16 12:00 98.3 99 20 129/61 (83) 93 12/01/16 10:26 93 Nasal Cannula 3.00 12/01/16 08:00 3.00 12/01/16 08:00 94 12/01/16 08:00 98.8 97 20 137/70 (92) 94 12/01/16 04:00 98.9 94 20 137/73 (94) 93 12/01/16 00:00 99.0 96 20 129/70 (89) 94 11/30/16 20:02 95 Nasal Cannula 3.00 11/30/16 20:00 Nasal Cannula 3.00 11/30/16 20:00 98.9 107 20 133/73 (93) 94 11/30/16 19:57 106 I/O 11/30/16 11/30/16 11/30/16 12/01/16 12/01/16 12/01/16 06:59 14:59 22:59 06:59 14:59 22:59 Intake Total 490 ml 1360 ml 325 ml 1008.3 ml Output Total 776 ml 3000 ml 350 ml 700 ml 525 ml Balance -286 ml -3000 ml 1010 ml -375 ml 483.3 ml Intake Oral 240 ml 760 ml 290 ml 960 ml IV Total 250 ml 600 ml 35 ml 48.3 ml Output Urine Total 775 ml 350 ml 700 ml 525 ml Stool Total 1 ml Hemodialysis 3000 ml # Voids 3 # Bowel Movements 0 1 Result Diagram: 12/01/16 0511 12/01/16 0511 Objective Remarks GENERAL: This is a middle-aged averagely built white male who is alert and in no acute distress. HEAD, EYES, EARS, NOSE, THROAT: Head normocephalic. The pupils are reactive. Tongue is dry. Throat is injected. Nasal mucosa is clear. NECK: The neck is supple. No bruits. No thyroid enlargement. No lymphadenopathy. CHEST: Equal movements. There are scattered coarse wheezes in the upper lung june with crackles in the right mid and lower chest. HEART: Heart sounds are regular. S1 and S2. No murmur. ABDOMEN: Abdomen is soft and protuberant. No masses or tenderness. EXTREMITIES: Varicosities. mild edema. No calf tenderness. NEUROLOGIC: Reflexes are normal. No focal deficits. SKIN: Dry and cool. Assessment and Plan Assessment and Plan IMPRESSION: 1. Extensive right lung pneumonia with hypoxemia. 2. Chronic kidney disease with acute renal failure. 3. COPD with emphysema and chronic bronchitis. 4. History of coronary artery bypass grafting. Plan : 1. Dialysis as planned. 2. O2 at 3L. 3. Will continue antibiotics as ordered. 4. CXR ,CBC in am. 5. Will need Bronchoscopy after kidney biopsy 6. PFT when stable. Alison Wilson MD Dec 01, 2016 18:08
[2016-12-01] MEDS: RESP: ALBUTEROL 2.5 MG/IPRATROPIUM 0.5 MG NEB (PRN) NEB (20:00)
[2016-12-01] MEDS: PANTOPRAZOLE SOD 40 MG DELAYED RELEASE TAB PO SCH (21:23)
[2016-12-01] MEDS: AZITHROMYCIN INJ 500 MG in SODIUM CHLOR 0.9% 250 ML INJ 250 ML IV SCH (21:24)
[2016-12-02] VITALS (15 sets, daily range): BP systolic 116–153; BP diastolic 58–88; PULSE 90–107; RESP 16–22; TEMP 97.7–99; O2SAT 91–97
[2016-12-02] MEDS: CEFEPIME INJ 1,000 MG in SODIUM CHLORIDE 0.9% INJ 100 ML IV SCH (07:45)
[2016-12-02] MEDS: SEVELAMER CARBONATE 800 MG TAB PO SCH ×3 (08:00→18:29)
[2016-12-02] MEDS ORDERED: MIDAZOLAM HCL 2 MG/2 ML VIAL ONE ×2 (08:22→08:43)
[2016-12-02] MEDS ORDERED: LIDOCAINE HCL 1% 30 ML VIAL ONE (08:22)
[2016-12-02] MEDS ORDERED: THROMBIN (TOPICAL) 5,000 UNIT VIAL ONE (08:51)
[2016-12-02] MEDS: DOCUSATE SODIUM 50 MG/SENNA 8.6 MG TAB PO SCH ×3 (09:00→20:26)
[2016-12-02] MEDS: HYDROCORTISONE ACETATE 25 MG SUPP RECTAL SCH (09:00)
--- NOTE | 2016-12-02 09:21 | PD.RAD ---
Post CT Procedure Prog Note Pre Procedure Diagnosis: (1) Acute renal failure (2) Chronic kidney disease Post Procedure Diagnosis: (1) Acute renal failure (2) Chronic kidney disease Procedure Date: Dec 02, 2016 Supervising Radiologist: Mustapha Vela JR Anesthesia: Conscious Sedation Plan of Activity Patient to Unit: ROPU Patient Condition: Good See PACS Report for procedural detail/treatment Biopsy Imaging Guidance: CT Side: Right Biopsy Procedure: Kidney Specimen: Core Biopsy Findings: Successful right renal biopsy for function. Gelfoam and thrombin utilized. No bleeding on post CT Jr. Vela Thomas Justin MD Dec 02, 2016 09:21
--- NOTE | 2016-12-02 10:32 | RADRPT ---
EXAM DATE/TIME: 12/02/2016 08:33 [facility] COMPARISON: No previous studies available for comparison. INDICATIONS : Right renal biopsy-ARF SEDATION TIME: 20 minutes BIOPSY SITE: Right kidney MEDICATION(S): 1.) 2.5 mg midazolam (Versed) IV 2.) 125 mcg fentanyl (Sublimaze) IV DEVICE(S): 1.) 15 gauge Temno core biopsy needle 2.) 18 gauge BioPince MEDICAL HISTORY : Renal failure. SURGICAL HISTORY : None. ENCOUNTER: Initial ACUITY: 1 day PAIN SCORE: 0/10 LOCATION: Right flank A total of three core specimen(s) were obtained and sent to the laboratory for pathologic evaluation. PROCEDURE: 1. CT guided renal biopsy. 2. Conscious sedation with continuous EKG and oximetry monitoring. 3. EKG and oximetry remained stable throughout the procedure. Prior to the procedure informed consent was obtained. Any appropriate prior imaging studies were rev iewed. Using automated exposure control and adjustment of the mA and/or kV according to patient size, radiat ion dose was kept as low as reasonably achievable to obtain optimal diagnostic quality images. DICOM format image data is available electronically for review and comparison. The site was prepped in a sterile fashion. Full sterile technique was used, including cap, mask, pamela rile gloves and gown and a large sterile sheet. Hand hygiene and 2% chlorhexidine and/or betadine/al cohol prep was utilized per protocol for cutaneous antisepsis. The skin and subcutaneous tissues wer e infiltrated with local anesthetic solution. With CT guidance the previously identified target was localized. Biopsy was performed using the presc ribed needle as above. Gelfoam and thrombin was utilized. Adequate hemostasis was obtained with compr ession at the puncture site. Follow-up CT scan reveals no hemorrhage. The patient tolerated the procedure well and there were no complications. The patient was returned to the Radiology Outpatient Unit in stable condition. Incidental note is made of layering gallstones within the gallbladder. CONCLUSION: Uncomplicated CT guided biopsy of the right kidney for function. Mustapha Vela Jr., MD on December 02, 2016 at 10:26 Board Certified Radiologist. This report was verified electronically.
[2016-12-02 10:45] LABS: AUTOMATED NEUTROPHIL # 7.5 TH/MM3 (1.8-7.7); BASOPHIL # 0.1 TH/MM3 (0-0.2); EOSINOPHIL # 0.5 TH/MM3 (0-0.4); EOSINOPHIL % 4.8 % (0.0-4.0); HEMATOCRIT 24.2 % (39.0-51.0); HEMO FLAGS DIFF FINAL; LYMPHOCYTE # 1.2 TH/MM3 (1.0-4.8); MEAN CELL VOLUME 96.6 FL (80.0-100.0); MEAN CORPUSCULAR HEMOGLOBIN 31.8 PG (27.0-34.0); MEAN CORPUSCULAR HGB CONC 32.9 % (32.0-36.0); MONO % 5.7 % (0.0-8.0); NEUT % 76.5 % (16.0-70.0); PLATELET COUNT 104 TH/MM3 (150-450); RED CELL DISTRIBUTION WIDTH 17.5 % (11.6-17.2); WHITE BLOOD COUNT 9.9 TH/MM3 (4.0-11.0)
[2016-12-02 11:54] LABS: AUTOMATED NEUTROPHIL # 6.8 TH/MM3 (1.8-7.7); BASOPHIL # 0.1 TH/MM3 (0-0.2); BASOPHIL % 0.6 % (0.0-2.0); EOSINOPHIL # 0.4 TH/MM3 (0-0.4); EOSINOPHIL % 4.2 % (0.0-4.0); HEMO FLAGS DIFF FINAL; LYMPH % 13.5 % (9.0-44.0); LYMPHOCYTE # 1.2 TH/MM3 (1.0-4.8); MEAN CELL VOLUME 93.9 FL (80.0-100.0); MEAN CORPUSCULAR HEMOGLOBIN 30.5 PG (27.0-34.0); MEAN CORPUSCULAR HGB CONC 32.5 % (32.0-36.0); MONO % 4.3 % (0.0-8.0); NEUT % 77.4 % (16.0-70.0); PLATELET COUNT 112 TH/MM3 (150-450); RED BLOOD COUNT 2.55 MIL/MM3 (4.50-5.90); RED CELL DISTRIBUTION WIDTH 17.4 % (11.6-17.2); WHITE BLOOD COUNT 8.8 TH/MM3 (4.0-11.0)
[2016-12-02] MEDS: PANTOPRAZOLE SOD 40 MG DELAYED RELEASE TAB PO SCH ×2 (12:54→20:25)
[2016-12-02] MEDS: CHOLECALCIFEROL (VIT D3) 1000 UNIT TAB PO SCH (12:54)
[2016-12-02] MEDS: LACTOBACILLUS ACIDOPHILUS TAB PO SCH ×2 (12:54→20:25)
--- NOTE | 2016-12-02 13:43 | HHI.PR ---
Subjective Remarks Follow-up GI bleed/acute on chronic kidney disease/anemia 11/24/16-patient seen and examined, complains of low back pain as well as insomnia 3 days. Hemoglobin 7.1 but denies any hemoptysis or hematemesis. 11/25/16-patient seen and examined, 3 L nasal cannula with some shortness of breath. Responded to 2 units blood transfusion yesterday. He was somnolent this a.m. and states he feels groggy 11/26/16-patient seen and examined, much more alert and oriented today still with some shortness of breath however denies any chest pain. No GI bleed. Patient with some rash 11/27/16-patient seen and examined, positive for shortness of breath and currently satting 91% on 2 L nasal cannula however accessory muscle. 11/28/16-patient seen and examined, and instrument stable and denies any GI bleed. Positive for shortness of breath and currently on 3 L nasal cannula 11/29/16-patient seen and examined; he had first time HD today 11/30/16-patient seen and examined, complains of itching otherwise stable. Denies any significant shortness of breath 12/01/16-patient seen and examined, improving renal indices. Patient denies any significant shortness of breath today. Denies any itching. Afebrile. Potassium 2.4 12/02/16-patient seen and examined, had kidney biopsy today. No other issues unstable. Objective Vitals Vital Signs Date Time Temp Pulse Resp B/P (MAP) Pulse Ox O2 Delivery O2 Flow Rate FiO2 12/02/16 12:00 98.6 99 18 146/80 (102) 96 12/02/16 11:40 103 16 139/88 (105) 97 12/02/16 11:10 100 18 140/79 (99) 94 12/02/16 10:40 103 18 142/81 (101) 91 12/02/16 10:10 90 18 138/83 (101) 95 12/02/16 09:40 97 18 117/79 (92) 91 12/02/16 09:25 97.8 95 16 135/77 (96) 91 12/02/16 08:00 Nasal Cannula 3.00 12/02/16 08:00 100 12/02/16 07:58 98.3 99 18 153/74 (100) 97 12/02/16 04:00 97.7 97 18 147/68 (94) 94 12/02/16 04:00 Nasal Cannula 3.00 Humidified 12/02/16 00:00 99.0 101 16 133/64 (87) 92 12/02/16 00:00 Nasal Cannula 3.00 Humidified 12/01/16 21:25 Nasal Cannula 3.00 Humidified 12/01/16 20:12 104 12/01/16 20:03 96 Nasal Cannula 3.00 12/01/16 20:00 97.3 101 18 138/74 (95) 96 12/01/16 16:00 3.00 12/01/16 16:00 97.7 103 20 138/78 (98) 96 I/O 12/01/16 12/01/16 12/01/16 12/02/16 12/02/16 12/02/16 07:00 15:00 23:00 07:00 15:00 23:00 Intake Total 325 ml 1108.3 ml 250 ml 600 ml Output Total 700 ml 525 ml 1000 ml Balance -375 ml 583.3 ml 250 ml -400 ml Intake Oral 290 ml 960 ml 600 ml IV Total 35 ml 148.3 ml 250 ml Output Urine Total 700 ml 525 ml 1000 ml # Bowel Movements 1 0 Result Diagram: 12/02/16 1140 12/01/16 0511 Objective Remarks GENERAL: NAD SKIN: Warm and dry.Rash to his abdomen HEAD: Normocephalic. EYES: No scleral icterus. No injection or drainage. NECK: Supple, trachea midline. No JVD or lymphadenopathy. CARDIOVASCULAR: Regular rate and rhythm without murmurs, gallops, or rubs. RESPIRATORY: Breath sounds equal bilaterally. No accessory muscle use. GASTROINTESTINAL: Abdomen soft, non-tender, nondistended. MUSCULOSKELETAL: No cyanosis, or edema. BACK: Nontender without obvious deformity. No CVA tenderness. A/P Problem List: (1) Sepsis ICD Code: A41.9 - Sepsis, unspecified organism Status: Acute (2) Acute renal failure ICD Code: N17.9 - Acute kidney failure, unspecified Status: Acute (3) Pneumonia ICD Code: J18.9 - Pneumonia, unspecified organism Status: Acute (4) Coronary artery disease ICD Code: I25.10 - Coronary artery disease Status: Acute (5) Anemia ICD Code: D64.9 - Anemia Status: Acute (6) Hematochezia ICD Code: K92.1 - Melena Status: Acute (7) Hypokalemia ICD Code: E87.6 - Hypokalemia Status: Acute Assessment and Plan 55-year-old man with Sepsis suspect secondary to right multilobular pneumonia-resolved -Continue cefepime 1 g every 12 hours Leukocytosis Resolved Acute kidney failure ATN? -Renal indices improving -Management per nephrology - US kidney/renal/bladder ordered and reviewed showing mild pelvocaliectasis right kidney. -Status post right kidney biopsy today 12/02/16 pending report Hypokalemia -Management per nephrology Normochromic, normocytic anemia suspect secondary to acute blood loss/ hematochezia -Transfused total of 5 RBCs since admission, H&H stable -Continue Protonix 40 mg twice a day ; appreciate input from GI Chronic obstructive pulmonary disease - Continue scheduled and PRN duonebs. - Supplemental O2 to keep sats >88%. - pulmonary medicine consultation appreciated Skin rash and itching Improved with Benadryl when necessary Hypoalbuminemia suspect secondary to poor PO intake Severe emancipation - Tumor markers were ordered and reviewed. DVT Prophylaxis: SCDs/TEDs. Problem Qualifiers (1) Sepsis: (2) Acute renal failure: (3) Pneumonia: (4) Anemia: Broderick Barajas MD Dec 02, 2016 13:43
[2016-12-02 15:04] LABS: BICARBONATE 21.7 MEQ/L (21.0-32.0); POTASSIUM 3.3 MEQ/L (3.5-5.1)
--- NOTE | 2016-12-02 17:35 | HHI.PR ---
Subjective Remarks Alert and breathing easier. No fever.Will have dialysis. went for a kidney biopsy Sputum is clear. CXR shows a Large right lung infiltrate Objective Vital Signs Date Time Temp Pulse Resp B/P (MAP) Pulse Ox O2 Delivery O2 Flow Rate FiO2 12/02/16 17:30 97 Nasal Cannula 3.00 12/02/16 16:00 98.4 100 18 142/80 (100) 97 12/02/16 12:00 98.6 99 18 146/80 (102) 96 12/02/16 11:40 103 16 139/88 (105) 97 12/02/16 11:10 100 18 140/79 (99) 94 12/02/16 10:40 103 18 142/81 (101) 91 12/02/16 10:10 90 18 138/83 (101) 95 12/02/16 09:40 97 18 117/79 (92) 91 12/02/16 09:25 97.8 95 16 135/77 (96) 91 12/02/16 08:00 Nasal Cannula 3.00 12/02/16 08:00 100 12/02/16 07:58 98.3 99 18 153/74 (100) 97 12/02/16 04:00 97.7 97 18 147/68 (94) 94 12/02/16 04:00 Nasal Cannula 3.00 Humidified 12/02/16 00:00 99.0 101 16 133/64 (87) 92 12/02/16 00:00 Nasal Cannula 3.00 Humidified 12/01/16 21:25 Nasal Cannula 3.00 Humidified 12/01/16 20:12 104 12/01/16 20:03 96 Nasal Cannula 3.00 12/01/16 20:00 97.3 101 18 138/74 (95) 96 I/O 12/01/16 12/01/16 12/01/16 12/02/16 12/02/16 12/02/16 07:00 15:00 23:00 07:00 15:00 23:00 Intake Total 325 ml 1108.3 ml 250 ml 600 ml Output Total 700 ml 525 ml 1000 ml Balance -375 ml 583.3 ml 250 ml -400 ml Intake Oral 290 ml 960 ml 600 ml IV Total 35 ml 148.3 ml 250 ml Output Urine Total 700 ml 525 ml 1000 ml # Bowel Movements 1 0 Result Diagram: 12/02/16 1140 12/02/16 1320 Objective Remarks GENERAL: This is a middle-aged averagely built white male who is alert and in no acute distress. HEAD, EYES, EARS, NOSE, THROAT: Head normocephalic. The pupils are reactive. Tongue is dry. Throat is clear. Nasal mucosa is clear. NECK: The neck is supple. No bruits. No thyroid enlargement. No lymphadenopathy. CHEST: Equal movements. There are scattered coarse wheezes in the upper lung june with crackles in the Right lower chest. HEART: Heart sounds are regular. S1 and S2. No murmur. ABDOMEN: Abdomen is soft and protuberant. No masses or tenderness. EXTREMITIES: Varicosities. mild edema. No calf tenderness. NEUROLOGIC: Reflexes are normal. No focal deficits. SKIN: Dry and cool. Assessment and Plan Assessment and Plan IMPRESSION: 1. Extensive right lung pneumonia with hypoxemia. 2. Chronic kidney disease with acute renal failure. 3. COPD with emphysema and chronic bronchitis. 4. History of coronary artery bypass grafting. Plan : 1. IS q3h at bedside 2. O2 at 2L. 3. Will continue antibiotics as ordered. 4. CXR ,CBC in am. 5. Will need Bronchoscopy if Chest Xray does not clear. 6. PFT when stable. Alison Wilson MD Dec 02, 2016 17:35
[2016-12-02] MEDS ORDERED: POTASSIUM CHLORIDE 10 MEQ CONTROLLED RELEASE TAB PO ONE (18:15)
[2016-12-02] MEDS: AZITHROMYCIN INJ 500 MG in SODIUM CHLOR 0.9% 250 ML INJ 250 ML IV SCH (20:26)
[2016-12-03] VITALS (8 sets, daily range): BP systolic 119–151; BP diastolic 66–80; PULSE 102–110; RESP 19–21; TEMP 97.2–98.9; O2SAT 92–97
[2016-12-03] MEDS: TEMAZEPAM 15 MG CAP PO PRN (01:55)
--- NOTE | 2016-12-03 07:11 | RADRPT ---
EXAM DATE/TIME: 12/03/2016 06:18 [facility] COMPARISON: CHEST SINGLE AP, November 29, 2016, 4:50. INDICATIONS : Pneumonia. Short of breath. Chest discomfort. MEDICAL HISTORY : Chronic obstructive pulmonary disease. Hypertension SURGICAL HISTORY : Carotid stent. CABG. ENCOUNTER: Subsequent ACUITY: 1 week PAIN SCORE: 2/10 LOCATION: Bilateral chest FINDINGS: There is a dialysis catheter from a right subclavian approach. Sternotomy wires are present. Left floyd g is clear. Abnormal consolidation and cavitary changes in the right upper lobe and patchy consolidat ion right mid lung again seen. CONCLUSION: Stable appearance of the chest. Vasu Barrientos MD on December 03, 2016 at 7:08 Board Certified Radiologist. This report was verified electronically.
[2016-12-03 09:16] LABS: BICARBONATE 22.3 MEQ/L (21.0-32.0)
[2016-12-03] MEDS: SEVELAMER CARBONATE 800 MG TAB PO SCH ×2 (09:35→17:18)
[2016-12-03] MEDS: CEFEPIME INJ 1,000 MG in SODIUM CHLORIDE 0.9% INJ 100 ML IV SCH (09:35)
[2016-12-03] MEDS: CHOLECALCIFEROL (VIT D3) 1000 UNIT TAB PO SCH (09:36)
[2016-12-03] MEDS: DOCUSATE SODIUM 50 MG/SENNA 8.6 MG TAB PO SCH ×2 (09:36→20:38)
[2016-12-03] MEDS: PANTOPRAZOLE SOD 40 MG DELAYED RELEASE TAB PO SCH ×2 (09:36→20:39)
[2016-12-03] MEDS: LACTOBACILLUS ACIDOPHILUS TAB PO SCH ×2 (09:36→20:37)
[2016-12-03] MEDS: HYDROCORTISONE ACETATE 25 MG SUPP RECTAL SCH (09:36)
--- NOTE | 2016-12-03 10:15 | HHI.PR ---
Subjective Remarks Follow-up GI bleed/acute on chronic kidney disease/anemia 11/24/16-patient seen and examined, complains of low back pain as well as insomnia 3 days. Hemoglobin 7.1 but denies any hemoptysis or hematemesis. 11/25/16-patient seen and examined, 3 L nasal cannula with some shortness of breath. Responded to 2 units blood transfusion yesterday. He was somnolent this a.m. and states he feels groggy 11/26/16-patient seen and examined, much more alert and oriented today still with some shortness of breath however denies any chest pain. No GI bleed. Patient with some rash 11/27/16-patient seen and examined, positive for shortness of breath and currently satting 91% on 2 L nasal cannula however accessory muscle. 11/28/16-patient seen and examined, and instrument stable and denies any GI bleed. Positive for shortness of breath and currently on 3 L nasal cannula 11/29/16-patient seen and examined; he had first time HD today 11/30/16-patient seen and examined, complains of itching otherwise stable. Denies any significant shortness of breath 12/01/16-patient seen and examined, improving renal indices. Patient denies any significant shortness of breath today. Denies any itching. Afebrile. Potassium 2.4 12/02/16-patient seen and examined, had kidney biopsy today. No other issues unstable. 12/03/16-patient seen and examined; still with some black stools; breathing better Objective Vitals Vital Signs Date Time Temp Pulse Resp B/P (MAP) Pulse Ox O2 Delivery O2 Flow Rate FiO2 12/03/16 08:12 98.9 103 20 144/79 (100) 97 12/03/16 04:00 Nasal Cannula 3.00 Humidified 12/03/16 04:00 97.2 107 19 128/66 (86) 95 12/03/16 00:00 Nasal Cannula 3.00 Humidified 12/03/16 00:00 98.2 102 19 151/80 (103) 96 12/02/16 20:25 Nasal Cannula 3.00 Humidified 12/02/16 20:23 107 12/02/16 20:00 98.0 107 22 116/58 (77) 94 12/02/16 17:30 97 Nasal Cannula 3.00 12/02/16 16:00 98.4 100 18 142/80 (100) 97 12/02/16 16:00 3.00 12/02/16 12:00 98.6 99 18 146/80 (102) 96 12/02/16 12:00 3.00 12/02/16 11:40 103 16 139/88 (105) 97 12/02/16 11:10 100 18 140/79 (99) 94 12/02/16 10:40 103 18 142/81 (101) 91 I/O 12/02/16 12/02/16 12/02/16 12/03/16 12/03/16 12/03/16 07:00 15:00 23:00 07:00 15:00 23:00 Intake Total 600 ml 730 ml 480 ml Output Total 1000 ml 1200 ml 850 ml Balance -400 ml -470 ml -370 ml Intake Oral 600 ml 480 ml 480 ml IV Total 250 ml Output Urine Total 1000 ml 1200 ml 850 ml # Bowel Movements 0 1 0 Result Diagram: 12/02/16 1140 12/03/16 0747 Objective Remarks GENERAL: NAD SKIN: Warm and dry.Rash to his abdomen HEAD: Normocephalic. EYES: No scleral icterus. No injection or drainage. NECK: Supple, trachea midline. No JVD or lymphadenopathy. CARDIOVASCULAR: Regular rate and rhythm without murmurs, gallops, or rubs. RESPIRATORY: Breath sounds equal bilaterally. No accessory muscle use. GASTROINTESTINAL: Abdomen soft, non-tender, nondistended. MUSCULOSKELETAL: No cyanosis, or edema. BACK: Nontender without obvious deformity. No CVA tenderness. A/P Problem List: (1) Sepsis ICD Code: A41.9 - Sepsis, unspecified organism Status: Acute (2) Acute renal failure ICD Code: N17.9 - Acute kidney failure, unspecified Status: Acute (3) Pneumonia ICD Code: J18.9 - Pneumonia, unspecified organism Status: Acute (4) Coronary artery disease ICD Code: I25.10 - Coronary artery disease Status: Acute (5) Anemia ICD Code: D64.9 - Anemia Status: Acute (6) Hematochezia ICD Code: K92.1 - Melena Status: Acute (7) Hypokalemia ICD Code: E87.6 - Hypokalemia Status: Acute Assessment and Plan 55-year-old man with Sepsis suspect secondary to right multilobular pneumonia-resolved -Continue cefepime 1 g every 12 hours Leukocytosis Resolved Acute kidney failure ATN? -Renal indices improving -Management per nephrology - US kidney/renal/bladder ordered and reviewed showing mild pelvocaliectasis right kidney. -Status post right kidney biopsy 12/02/16 pending report -Possible HD today Hypokalemia -Management per nephrology Normochromic, normocytic anemia suspect secondary to acute blood loss/ hematochezia -Transfused total of 5 RBCs since admission, and transfuse for HgB<7.0 -Continue Protonix 40 mg twice a day ; appreciate input from GI -Plan for EGD/Colonoscopy possible this week Chronic obstructive pulmonary disease - Continue scheduled and PRN duonebs. - Supplemental O2 to keep sats >88%. - pulmonary medicine consultation appreciated Skin rash and itching Improved with Benadryl when necessary Hypoalbuminemia suspect secondary to poor PO intake Severe emancipation - Tumor markers were ordered and reviewed. DVT Prophylaxis: SCDs/TEDs. Problem Qualifiers (1) Sepsis: (2) Acute renal failure: (3) Pneumonia: (4) Anemia: Broderick Barajas MD Dec 03, 2016 10:15
--- NOTE | 2016-12-03 12:01 | HHI.NPPN ---
Subjective Renal Failure: Acute Interval History Tolerated biopsy well. Creatinine is higher today. Good urine output. (Milla Pack) Review of Systems General Constitutional: Fatigue (Milla Pack) Objective Data Data Vital Signs Date Time Temp Pulse Resp B/P (MAP) Pulse Ox O2 Delivery O2 Flow Rate FiO2 12/03/16 11:09 Nasal Cannula 3.00 Humidified 12/03/16 08:12 98.9 103 20 144/79 (100) 97 12/03/16 04:00 Nasal Cannula 3.00 Humidified 12/03/16 04:00 97.2 107 19 128/66 (86) 95 12/03/16 00:00 Nasal Cannula 3.00 Humidified 12/03/16 00:00 98.2 102 19 151/80 (103) 96 12/02/16 20:25 Nasal Cannula 3.00 Humidified 12/02/16 20:23 107 12/02/16 20:00 98.0 107 22 116/58 (77) 94 12/02/16 17:30 97 Nasal Cannula 3.00 12/02/16 16:00 98.4 100 18 142/80 (100) 97 12/02/16 16:00 3.00 12/02/16 12:00 98.6 99 18 146/80 (102) 96 12/02/16 12:00 3.00 (Milla Pack) -: 12/02/16 1140 12/03/16 0747 Imaging Last 72 hours Impressions Chest X-Ray 12/03/16 0600 Signed Impressions: Service Date/Time: Saturday, December 03, 2016 06:18 - CONCLUSION: Stable appearance of the chest. Vasu Barrientos MD Renal Biopsy CT 12/02/16 1350 Signed Impressions: Service Date/Time: Friday, December 02, 2016 08:33 - CONCLUSION: Uncomplicated CT guided biopsy of the right kidney for function. Mustapha Vela Jr., MD Tubes & Lines: Perma-Cath, Herbert (Milla Pack) Physical Exam General Appearance: Well Developed, Well Nourished, No Acute Distress, Comfortable (Milla Pack) Eyes Eye Exam: Pupils Equal, Pupils Reactive (Milla Pack) Throat Throat Exam: Oral Mucosa Sherman & Moist (Milla Pack) Neck Neck Exam: Neck Supple (Milla Pack) Pulmonary Resp Exam: Clear Bilaterally, Breath Sounds Equal, Decreased Bases (Milla Pack SUBMERSIBLE PILOT) Cardiology CV Exam: Regular, Normal Sinus Rhythm, Good Perfusion (Milla PackP) Gastrointestinal/Abdomen GI Exam: Soft, Non-Tender, Bowel Sounds Present (Milla Pack) Musculoskeletal MS Exam: Joints Intact, Normal Tone, Good Strength (Milla Pack) Integumentary Skin Exam: Clear, Warm, Dry, Intact (Milla Pack) Extremeties Extremities Exam: No Edema, Pedal Pulses Palpable (Milla Pack) Neurologic Neuro Exam: Alert, Awake, Oriented, Speech Clear (Milla Pack) Psychiatric Psych Exam: Appropriate Responses (Milla Pack) Assessment/Plan Discussed Condition With: Patient Assessment Summary: SEJAL/Acute Renal Failure Electrolyte Assessment: Hypocalcemia, Hypokalemia, Metabolic Acidosis Problem List: (1) Acute renal failure ICD Codes: N17.9 - Acute kidney failure, unspecified Status: Acute Plan: Baseline creatinine of 2.0 from July of 2013. etiology of SEJAL is not clear, awaiting biopsy report from 12/02 HD started 11/30, 12/01 we will dialyze today on a 4K monitor potassium level has heavy proteinuria, and persistent hypokalemia; possibly has proximal RTA repeat labs in am, also follow hemoglobin s/p biopsy not on IVF no dietary protein restriction (2) Acidosis ICD Codes: E87.2 - Acidosis Status: Acute Plan: corrected, monitor (3) GI bleed ICD Codes: K92.2 - Gastrointestinal hemorrhage, unspecified Status: Acute Plan: Hb improved GI following, needs EGD/colonoscopy this admission off protonix gtt (4) Sepsis ICD Codes: A41.9 - Sepsis, unspecified organism Status: Acute Plan: being treated for pneumonia On Cefepime, follow clinically (5) Hypocalcemia ICD Codes: E83.51 - Hypocalcemia Plan: with a vitamin D deficiency, improving with vitamin D supplementation continue to treat hyperphosphatemia, renvela dosage increased monitor (Milla Pack) Plan patient was seen and examined. Agree with above assessment and plan. Dialysis today on 4K. I did get preliminary report of the biopsy: patient has advanced renal disease. 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 Given the fact that he is Hepatitis C positive , it is possible that it is Hepatitis C related. Patient has significant global glomerulosclerosis, tubular atrophy and interstitial fibrosis. Most likely he is going to require nursing home dialysis. (Jim Zuluaga MD) Problem Qualifiers (1) Acute renal failure: (2) GI bleed: (3) Sepsis: Milla Pack Dec 03, 2016 12:01 Jim Zuluaga MD Dec 03, 2016 17:28
[2016-12-03] MEDS ORDERED: POTASSIUM CHLORIDE 10 MEQ CONTROLLED RELEASE TAB PO ONE (12:15)
--- NOTE | 2016-12-03 16:31 | HHI.GIFU ---
Subjective Remarks Pt resting in bed, tired from HD. he seems SOB to conversation again but said that happens after dialysis. still with scant red blood on wipe after BM. (Roxy Hawley) Objective Vitals I&O Vital Signs Date Time Temp Pulse Resp B/P (MAP) Pulse Ox O2 Delivery O2 Flow Rate FiO2 12/03/16 12:03 98.0 109 20 133/70 (91) 95 12/03/16 11:09 Nasal Cannula 3.00 Humidified 12/03/16 08:12 98.9 103 20 144/79 (100) 97 12/03/16 04:00 Nasal Cannula 3.00 Humidified 12/03/16 04:00 97.2 107 19 128/66 (86) 95 12/03/16 00:00 Nasal Cannula 3.00 Humidified 12/03/16 00:00 98.2 102 19 151/80 (103) 96 12/02/16 20:25 Nasal Cannula 3.00 Humidified 12/02/16 20:23 107 12/02/16 20:00 98.0 107 22 116/58 (77) 94 12/02/16 17:30 97 Nasal Cannula 3.00 I/O 12/02/16 12/02/16 12/02/16 12/03/16 12/03/16 12/03/16 06:59 14:59 22:59 06:59 14:59 22:59 Intake Total 600 ml 730 ml 480 ml Output Total 1000 ml 1200 ml 850 ml 1000 ml Balance -400 ml -470 ml -370 ml -1000 ml Intake Oral 600 ml 480 ml 480 ml IV Total 250 ml Output Urine Total 1000 ml 1200 ml 850 ml Hemodialysis 1000 ml # Bowel Movements 0 1 0 Laboratory Laboratory Tests Test 12/03/16 07:47 Blood Urea Nitrogen 47 Creatinine 7.00 Random Glucose 89 Calcium Level 7.7 Phosphorus Level 6.5 Sodium Level 142 Potassium Level 3.0 Chloride Level 107 Carbon Dioxide Level 22.3 Anion Gap 13 Estimat Glomerular Filtration Rate 8 Date/Time Source Procedure Growth Status 11/22/16 15:20 Blood Peripheral Aerobic Blood Culture - Final NO GROWTH IN 5 DAYS Complete 11/22/16 15:20 Blood Peripheral Anaerobic Blood Culture - Final NO GROWTH IN 5 DAYS Complete 11/22/16 20:30 Stool Stool Cryptosporidium Exam - Final NEGATIVE - NO CRYPTOSPORIDIUM ANTIGEN... Complete 11/22/16 20:30 Stool Stool Stool Pus (MANOLO) - Final FEW WBC'S Complete 11/22/16 20:30 Stool Stool Giardia Antigen (MANOLO) - Final NEGATIVE - NO GIARDIA ANTIGEN DETECTE... Complete 11/28/16 18:00 Sputum Expectorated Sputum Acid Fast Stain - Final NO ACID FAST BACILLI SEEN Resulted 11/28/16 18:00 Sputum Expectorated Sputum Mycobacterial Culture Pending Resulted 11/25/16 12:00 Urine Catheterized Urine Urine Culture - Final NO GROWTH IN 48 HOURS. Complete Imaging Last Impressions Chest X-Ray 12/03/16 0600 Signed Impressions: Service Date/Time: Saturday, December 03, 2016 06:18 - CONCLUSION: Stable appearance of the chest. Vasu Barrientos MD Renal Biopsy CT 12/02/16 1350 Signed Impressions: Service Date/Time: Friday, December 02, 2016 08:33 - CONCLUSION: Uncomplicated CT guided biopsy of the right kidney for function. Mustapha Vela Jr., MD Upper Extremity Ultrasound 11/30/16 0000 Signed Impressions: Service Date/Time: Wednesday, November 30, 2016 01:39 - CONCLUSION: Unremarkable study except for a small amount of thrombus in the left cephalic vein. Andre Montemayor MD Catheter Placement X-Ray 11/28/16 0000 Signed Impressions: Service Date/Time: Monday, November 28, 2016 15:57 - CONCLUSION: Uncomplicated PermaCath placement as above. Mustapha Vela Jr., MD Chest CT 11/26/16 0000 Signed Impressions: Service Date/Time: Saturday, November 26, 2016 13:54 - CONCLUSION: 1. Dense consolidative right upper lobe pneumonia on a background of severe emphysema with cavitary foci within the consolidated areas. 2. There is patchy right middle and lower lobe pneumonia as well. 3. Bilateral effusions right greater than left. 4. Associated mediastinal adenopathy. Vasu Barrientos MD Renal Ultrasound 11/22/16 0000 Signed Impressions: Service Date/Time: Tuesday, November 22, 2016 17:14 - CONCLUSION: Mild pelvocaliectasis right kidney not present previously. Obdulia Garcia MD Physical Exam HEENT: Normocephalic; atraumatic; no jaundice. CHEST: Diminished throughout, 3L NC SOB to conversation at this time CARDIAC: Regular, tachycardia ABDOMEN: Soft, nondistended, nontender; no hepatosplenomegaly; bowel sounds are present in all four quadrants. EXTREMITIES: No clubbing, cyanosis, or edema. SKIN: Normal; no rash; no jaundice. SCAFFOLD ERECTOR: No focal deficits; alert and oriented times three. (Roxy Hawley) Assessment and Plan Plan ASSESSMENT: - Anemia ( hgb of 6 on admission) with rectal bleeding for over a year secondary to hemorrhoids per patient - States copious amounts of blood filling the toilet monthly for a week duration at a time. S/P 4 units of PRBC. HH stable Would benefit from EGD/Colonoscopy when medically cleared - Hemorrhoids. Add hydrocortisone suppositories - Diarrhea. CDiff negative. No enteric pathogens, negative for cryptosporidium , negative for giardia. Few wbc. D/W patient trial of imodium- does not want to take. Is open to trying probiotics. - ARF with electrolytes. improving. Renal following,started HD Defer to renal. biopsy tomorrow. - Resp. Insufficiency with multilobular PNA/severe emphysema, per pulmonary - Leukocytosis- trending down, afebrile, , ESR > 140, blood cx no growth 2d - Weight loss- 10-15 ibs in the last 3 weeks due to poor appetite and Po intake - Hypokalemia- Secondary to above, replaced by attending - Hx of CABG, COPD per attending Plan: - Heart healthy diet - Cont. PPI - Hydrocortisone suppositories - Monitor hh - Transfuse as needed - EGD/Colonoscopy TBD, after medically cleared for endoscopy - await pulmonary medicine w/u - Patient seen and examined by Dr. Burch and myself and this note is written on his behalf. (Roxy Hawley) Physician Comments Plan as above, will follow up with you periodically,will need endoscopic evaluation once stable. (Marii Burch MD) Roxy Hawley Dec 03, 2016 16:31 Marii Burch MD Dec 03, 2016 22:47
--- NOTE | 2016-12-03 18:31 | HHI.PR ---
Subjective Remarks Alert and feels tired . No fever.Had dialysis. went for a kidney biopsy and Path pending Sputum is clear. CXR is stable with Right Pneumonia Objective Vital Signs Date Time Temp Pulse Resp B/P (MAP) Pulse Ox O2 Delivery O2 Flow Rate FiO2 12/03/16 16:35 97.6 107 21 119/73 (88) 94 12/03/16 12:03 98.0 109 20 133/70 (91) 95 12/03/16 11:09 Nasal Cannula 3.00 Humidified 12/03/16 08:12 98.9 103 20 144/79 (100) 97 12/03/16 04:00 Nasal Cannula 3.00 Humidified 12/03/16 04:00 97.2 107 19 128/66 (86) 95 12/03/16 00:00 Nasal Cannula 3.00 Humidified 12/03/16 00:00 98.2 102 19 151/80 (103) 96 12/02/16 20:25 Nasal Cannula 3.00 Humidified 12/02/16 20:23 107 12/02/16 20:00 98.0 107 22 116/58 (77) 94 I/O 12/02/16 12/02/16 12/02/16 12/03/16 12/03/16 12/03/16 07:00 15:00 23:00 07:00 15:00 23:00 Intake Total 600 ml 730 ml 480 ml 360 ml Output Total 1000 ml 1200 ml 850 ml 1300 ml Balance -400 ml -470 ml -370 ml -940 ml Intake Oral 600 ml 480 ml 480 ml 360 ml IV Total 250 ml Output Urine Total 1000 ml 1200 ml 850 ml 300 ml Hemodialysis 1000 ml # Bowel Movements 0 1 0 Result Diagram: 12/02/16 1140 12/03/16 0747 Objective Remarks GENERAL: This is a middle-aged averagely built white male who is alert and in no acute distress. HEAD, EYES, EARS, NOSE, THROAT: Head normocephalic. The pupils are reactive. Tongue is dry. Throat is clear. Nasal mucosa is clear. NECK: The neck is supple. No bruits. No thyroid enlargement. No lymphadenopathy. CHEST: Equal movements. There are scattered coarse wheezes in the upper lung june with Occ crackles in the Right lower chest. HEART: Heart sounds are regular. S1 and S2. No murmur. ABDOMEN: Abdomen is soft and protuberant. No masses or tenderness. EXTREMITIES: Varicosities.No edema. No calf tenderness. NEUROLOGIC: Reflexes are normal. No focal deficits. SKIN: Dry and cool. Assessment and Plan Assessment and Plan IMPRESSION: 1. Extensive right lung pneumonia with hypoxemia. 2. Chronic kidney disease with acute renal failure. 3. COPD with emphysema and chronic bronchitis. 4. History of coronary artery bypass grafting. Plan : 1. IS q3h at bedside 2. O2 at 2L. 3. Will continue antibiotics as ordered. 4. BMP,CBC in am. 5. Will need Bronchoscopy if Chest X ray does not clear. 6. Dialysis as planned. 7. Add Solumedrol 40 mg bid for 2 days Alison Wilson MD Dec 03, 2016 18:31
[2016-12-03] MEDS ORDERED: methylPREDNISolone SOD SUCC 40 MG/1 ML VIAL IV SCH (18:45)
[2016-12-03] MEDS: SODIUM CHLORIDE 0.9% FLUSH 10 ML FLUSH IV FLUSH PRN (20:37)
[2016-12-03] MEDS: AZITHROMYCIN INJ 500 MG in SODIUM CHLOR 0.9% 250 ML INJ 250 ML IV SCH (20:38)
[2016-12-03] MEDS: methylPREDNISolone SOD SUCC 40 MG/1 ML VIAL IV SCH (20:46)
[2016-12-04] VITALS (9 sets, daily range): BP systolic 109–160; BP diastolic 63–87; PULSE 86–98; RESP 16–20; TEMP 97.2–97.8; O2SAT 88–97
[2016-12-04] MEDS: TEMAZEPAM 15 MG CAP PO PRN ×2 (01:11→23:42)
[2016-12-04 08:04] LABS: AUTOMATED NEUTROPHIL # 7.4 TH/MM3 (1.8-7.7); BASOPHIL # 0.1 TH/MM3 (0-0.2); BASOPHIL % 0.6 % (0.0-2.0); HEMATOCRIT 23.5 % (39.0-51.0); HEMO FLAGS DIFF FINAL; LYMPH % 12.6 % (9.0-44.0); LYMPHOCYTE # 1.1 TH/MM3 (1.0-4.8); MEAN CELL VOLUME 93.1 FL (80.0-100.0); MEAN CORPUSCULAR HGB CONC 33.4 % (32.0-36.0); MONO % 3.3 % (0.0-8.0); NEUT % 83.5 % (16.0-70.0); PLATELET COUNT 117 TH/MM3 (150-450); RED BLOOD COUNT 2.53 MIL/MM3 (4.50-5.90); RED CELL DISTRIBUTION WIDTH 16.8 % (11.6-17.2); WHITE BLOOD COUNT 8.9 TH/MM3 (4.0-11.0)
[2016-12-04 08:40] LABS: BICARBONATE 27.7 MEQ/L (21.0-32.0); POTASSIUM 3.5 MEQ/L (3.5-5.1)
[2016-12-04] MEDS: HYDROCORTISONE ACETATE 25 MG SUPP RECTAL SCH (09:00)
[2016-12-04] MEDS: DOCUSATE SODIUM 50 MG/SENNA 8.6 MG TAB PO SCH ×2 (09:00→21:00)
[2016-12-04] MEDS: methylPREDNISolone SOD SUCC 40 MG/1 ML VIAL IV SCH (09:48)
[2016-12-04] MEDS: LACTOBACILLUS ACIDOPHILUS TAB PO SCH ×2 (09:48→21:41)
[2016-12-04] MEDS: SEVELAMER CARBONATE 800 MG TAB PO SCH ×3 (09:48→17:31)
[2016-12-04] MEDS: CEFEPIME INJ 1,000 MG in SODIUM CHLORIDE 0.9% INJ 100 ML IV SCH (09:49)
[2016-12-04] MEDS: POTASSIUM CHLORIDE 20 MEQ CONTROLLED RELEASE TAB PO SCH (09:49)
[2016-12-04] MEDS: CHOLECALCIFEROL (VIT D3) 1000 UNIT TAB PO SCH (09:50)
[2016-12-04] MEDS: PANTOPRAZOLE SOD 40 MG DELAYED RELEASE TAB PO SCH ×2 (09:50→21:41)
--- NOTE | 2016-12-04 12:23 | HHI.PR ---
Subjective Remarks Follow-up GI bleed/acute on chronic kidney disease/anemia 11/24/16-patient seen and examined, complains of low back pain as well as insomnia 3 days. Hemoglobin 7.1 but denies any hemoptysis or hematemesis. 11/25/16-patient seen and examined, 3 L nasal cannula with some shortness of breath. Responded to 2 units blood transfusion yesterday. He was somnolent this a.m. and states he feels groggy 11/26/16-patient seen and examined, much more alert and oriented today still with some shortness of breath however denies any chest pain. No GI bleed. Patient with some rash 11/27/16-patient seen and examined, positive for shortness of breath and currently satting 91% on 2 L nasal cannula however accessory muscle. 11/28/16-patient seen and examined, and instrument stable and denies any GI bleed. Positive for shortness of breath and currently on 3 L nasal cannula 11/29/16-patient seen and examined; he had first time HD today 11/30/16-patient seen and examined, complains of itching otherwise stable. Denies any significant shortness of breath 12/01/16-patient seen and examined, improving renal indices. Patient denies any significant shortness of breath today. Denies any itching. Afebrile. Potassium 2.4 12/02/16-patient seen and examined, had kidney biopsy today. No other issues unstable. 12/03/16-patient seen and examined; still with some black stools; breathing better 12/04/16-patient seen and examined, patient stated he is feeling much better and breathing better Objective Vitals Vital Signs Date Time Temp Pulse Resp B/P (MAP) Pulse Ox O2 Delivery O2 Flow Rate FiO2 12/04/16 07:15 Nasal Cannula 3.00 Humidified 12/04/16 04:00 Nasal Cannula 3.00 Humidified 12/04/16 04:00 97.8 86 20 109/66 (80) 94 12/04/16 00:00 97.6 94 20 112/63 (79) 96 12/04/16 00:00 Humidified 3.00 12/03/16 20:00 98.1 105 20 120/67 (84) 93 12/03/16 20:00 Nasal Cannula 3.00 12/03/16 19:39 92 Nasal Cannula 3.00 12/03/16 16:35 97.6 107 21 119/73 (37) 94 I/O 12/03/16 12/03/16 12/03/16 12/04/16 12/04/16 12/04/16 07:00 15:00 23:00 07:00 15:00 23:00 Intake Total 480 ml 610 ml Output Total 850 ml 1300 ml Balance -370 ml -690 ml Intake Oral 480 ml 360 ml IV Total 250 ml Output Urine Total 850 ml 300 ml Hemodialysis 1000 ml # Bowel Movements 0 Result Diagram: 12/04/16 0711 12/04/16 0711 Imaging Last Impressions Chest X-Ray 12/03/16 0600 Signed Impressions: Service Date/Time: Saturday, December 03, 2016 06:18 - CONCLUSION: Stable appearance of the chest. Vasu Barrientos MD Renal Biopsy CT 12/02/16 1350 Signed Impressions: Service Date/Time: Friday, December 02, 2016 08:33 - CONCLUSION: Uncomplicated CT guided biopsy of the right kidney for function. Mustapha Vela Jr., MD Upper Extremity Ultrasound 11/30/16 0000 Signed Impressions: Service Date/Time: Wednesday, November 30, 2016 01:39 - CONCLUSION: Unremarkable study except for a small amount of thrombus in the left cephalic vein. Andre Montemayor MD Catheter Placement X-Ray 11/28/16 0000 Signed Impressions: Service Date/Time: Monday, November 28, 2016 15:57 - CONCLUSION: Uncomplicated PermaCath placement as above. Mustapha Vela Jr., MD Chest CT 11/26/16 0000 Signed Impressions: Service Date/Time: Saturday, November 26, 2016 13:54 - CONCLUSION: 1. Dense consolidative right upper lobe pneumonia on a background of severe emphysema with cavitary foci within the consolidated areas. 2. There is patchy right middle and lower lobe pneumonia as well. 3. Bilateral effusions right greater than left. 4. Associated mediastinal adenopathy. Vasu Barrientos MD Renal Ultrasound 11/22/16 0000 Signed Impressions: Service Date/Time: Tuesday, November 22, 2016 17:14 - CONCLUSION: Mild pelvocaliectasis right kidney not present previously. Obdulia Garcia MD Objective Remarks GENERAL: NAD SKIN: Warm and dry.Rash to his abdomen HEAD: Normocephalic. EYES: No scleral icterus. No injection or drainage. NECK: Supple, trachea midline. No JVD or lymphadenopathy. CARDIOVASCULAR: Regular rate and rhythm without murmurs, gallops, or rubs. RESPIRATORY: Breath sounds equal bilaterally. No accessory muscle use. GASTROINTESTINAL: Abdomen soft, non-tender, nondistended. MUSCULOSKELETAL: No cyanosis, or edema. BACK: Nontender without obvious deformity. No CVA tenderness. A/P Problem List: (1) Sepsis ICD Code: A41.9 - Sepsis, unspecified organism Status: Acute (2) Acute renal failure ICD Code: N17.9 - Acute kidney failure, unspecified Status: Acute (3) Pneumonia ICD Code: J18.9 - Pneumonia, unspecified organism Status: Acute (4) Coronary artery disease ICD Code: I25.10 - Coronary artery disease Status: Acute (5) Anemia ICD Code: D64.9 - Anemia Status: Acute (6) Hematochezia ICD Code: K92.1 - Melena Status: Acute (7) Hypokalemia ICD Code: E87.6 - Hypokalemia Status: Acute Assessment and Plan 55-year-old man with Sepsis suspect secondary to right multilobular pneumonia-resolved -Continue cefepime 1 g every 12 hours Leukocytosis Resolved Acute kidney failure ATN? -Renal indices improving -Management per nephrology - US kidney/renal/bladder ordered and reviewed showing mild pelvocaliectasis right kidney. -Status post right kidney biopsy 12/02/16 pending report Hypokalemia -Management per nephrology -Resolved Normochromic, normocytic anemia suspect secondary to acute blood loss/ hematochezia -Transfused total of 5 RBCs since admission, and transfuse for HgB<7.0 -Continue Protonix 40 mg twice a day ; appreciate input from GI -Plan for EGD/Colonoscopy possible next few days Chronic obstructive pulmonary disease - Continue scheduled and PRN duonebs. - Supplemental O2 to keep sats >88%. - pulmonary medicine consultation appreciated Skin rash and itching Resolved with Benadryl when necessary Hypoalbuminemia suspect secondary to poor PO intake Severe emancipation - Tumor markers were ordered and reviewed. DVT Prophylaxis: SCDs/TEDs. Problem Qualifiers (1) Sepsis: (2) Acute renal failure: (3) Pneumonia: (4) Anemia: Broderick Barajas MD Dec 04, 2016 12:23
--- NOTE | 2016-12-04 13:05 | PD.VS.CON ---
History of Present Illness Chief Complaint: ESRD, need for HD access Consult Requested by: Nephrology History of Present Illness 55 yo male with likely acute on chronic renal failure, of unclear etiology. Never on HD before but has had HD this hospitalization x 3. He notes that he has severe CAD and suffered NV in 2013 with a prolonged hospitalization and was ultimately d/c after several months with a creatinine of 2. He was at home and worked at a [employer] in [id number] Until 5-6 weeks ago, he had exertional SOB associated with a diagnosis of COPD but didn't wear oxygen. He denied CP and was able to perform ADLs and lived at home with his . He then started developing SOB, global weakness and fatigue. He was admitted several days ago, started on HD, is getting treated for pneumonia, and is being investigated for hematoschezia. He is RIGHT handed. No prior access attempts and currently has a tunneled R IJ line. Past/Family/Social History Past Medical History CAD w/ CABG ?PAD with claudication COPD - doesn't wear oxygen CRI Past Surgical History CABG (2013) Social History former smoker Family History No renal troubles +CAD Home Medications Reported Medications B-Complex Vitamins (B Complex) 1 Cap, 1 CAP PO DAILY for Nutritional Supplement , #30 CAP 0 Refills 11/22/16 Folic Acid (Folic Acid) 400 Mcg Tab, 400 MCG PO DAILY for Nutritional Supplement , TAB 0 Refills 11/22/16 Coded Allergies: No Known Allergies (Unverified , 09/26/13) Review of Systems Constitutional: COMPLAINS OF: Fatigue, Chills Respiratory: COMPLAINS OF: Shortness of breath Cardiovascular: COMPLAINS OF: Dyspnea on Exertion Gastrointestinal: COMPLAINS OF: Bloody stools Physical Exam Vitals/I&O Date Time Temp Pulse Resp B/P (MAP) Pulse Ox O2 Delivery O2 Flow Rate FiO2 12/04/16 07:15 Nasal Cannula 3.00 Humidified 12/04/16 04:00 Nasal Cannula 3.00 Humidified 12/04/16 04:00 97.8 86 20 109/66 (80) 94 12/04/16 00:00 97.6 94 20 112/63 (79) 96 12/04/16 00:00 Humidified 3.00 12/03/16 20:00 98.1 105 20 120/67 (84) 93 12/03/16 20:00 Nasal Cannula 3.00 12/03/16 19:39 92 Nasal Cannula 3.00 12/03/16 16:35 97.6 107 21 119/73 (88) 94 Neuro: resting, no distress HEENT: anicteric sclera; EOMI Neck: EJ distension but no JVD Heart: reg rate Lungs: nonlabored breathing Vascular: palpable UE pulses, no edema UE Laboratory Tests Test 12/04/16 07:11 White Blood Count 8.9 Red Blood Count 2.53 Hemoglobin 7.8 Hematocrit 23.5 Mean Corpuscular Volume 93.1 Mean Corpuscular Hemoglobin 31.0 Mean Corpuscular Hemoglobin Concent 33.4 Red Cell Distribution Width 16.8 Platelet Count 117 Mean Platelet Volume 10.3 Neutrophils (%) (Auto) 83.5 Lymphocytes (%) (Auto) 12.6 Monocytes (%) (Auto) 3.3 Eosinophils (%) (Auto) 0.0 Basophils (%) (Auto) 0.6 Neutrophils # (Auto) 7.4 Lymphocytes # (Auto) 1.1 Monocytes # (Auto) 0.3 Eosinophils # (Auto) 0.0 Basophils # (Auto) 0.1 CBC Comment DIFF FINAL Differential Comment Blood Urea Nitrogen 39 Creatinine 5.06 Random Glucose 138 Calcium Level 8.2 Sodium Level 142 Potassium Level 3.5 Chloride Level 105 Carbon Dioxide Level 27.7 Anion Gap 9 Estimat Glomerular Filtration Rate 12 Date/Time Source Procedure Growth Status 11/22/16 15:20 Blood Peripheral Aerobic Blood Culture - Final NO GROWTH IN 5 DAYS Complete 11/22/16 15:20 Blood Peripheral Anaerobic Blood Culture - Final NO GROWTH IN 5 DAYS Complete 11/22/16 20:30 Stool Stool Cryptosporidium Exam - Final NEGATIVE - NO CRYPTOSPORIDIUM ANTIGEN... Complete 11/22/16 20:30 Stool Stool Stool Pus (MANOLO) - Final FEW WBC'S Complete 11/22/16 20:30 Stool Stool Giardia Antigen (MANOLO) - Final NEGATIVE - NO GIARDIA ANTIGEN DETECTE... Complete 11/28/16 18:00 Sputum Expectorated Sputum Acid Fast Stain - Final NO ACID FAST BACILLI SEEN Resulted 11/28/16 18:00 Sputum Expectorated Sputum Mycobacterial Culture Pending Resulted 11/25/16 12:00 Urine Catheterized Urine Urine Culture - Final NO GROWTH IN 48 HOURS. Complete Last 48 hours Impressions Chest X-Ray 12/03/16 0600 Signed Impressions: Service Date/Time: Saturday, December 03, 2016 06:18 - CONCLUSION: Stable appearance of the chest. Vasu Barrientos MD Renal Biopsy CT 12/02/16 1350 Signed Impressions: Service Date/Time: Friday, December 02, 2016 08:33 - CONCLUSION: Uncomplicated CT guided biopsy of the right kidney for function. Mustapha Vela Jr., MD Assessment and Plan Plan new onset ESRD, likely chronic. 1. UE vein mapping - ordered; Will determine side based on vein mapping 2. Discussed at some length the nature of AVF creation with the patient and although he does not want to be on HD, he seems to understand the process. 3. Await biopsy results and defer to nephrology re: permanence of HD needs 4. Await GI decision about need for GI work up for bleeding. 5. If above issues settle out, will be happy to perform AVF creation while inpatient. Will follow closely. Thank you for the consult. Clarence Pyle MD FACS [employer] logistics coordinator [facility] - [facility] V[facility] at [facility] [phone] Clarence Pyle MD Dec 04, 2016 13:05
--- NOTE | 2016-12-04 14:49 | HHI.NPPN ---
Subjective General Problems: Anemia Renal Failure: Acute Interval History Dialyzed yesterday. He states he feels better. Appetite has improved. Potassium has corrected. (Milla Pack) Review of Systems General Constitutional: Fatigue (Milla Pack) Objective Data Data Vital Signs Date Time Temp Pulse Resp B/P (MAP) Pulse Ox O2 Delivery O2 Flow Rate FiO2 12/04/16 07:15 Nasal Cannula 3.00 Humidified 12/04/16 04:00 Nasal Cannula 3.00 Humidified 12/04/16 04:00 97.8 86 20 109/66 (80) 94 12/04/16 00:00 97.6 94 20 112/63 (79) 96 12/04/16 00:00 Humidified 3.00 12/03/16 20:00 98.1 105 20 120/67 (84) 93 12/03/16 20:00 Nasal Cannula 3.00 12/03/16 19:39 92 Nasal Cannula 3.00 12/03/16 16:35 97.6 107 21 119/73 (88) 94 (Milla Pack) -: 12/04/16 0711 12/04/16 0711 Imaging Last Impressions Chest X-Ray 12/03/16 0600 Signed Impressions: Service Date/Time: Saturday, December 03, 2016 06:18 - CONCLUSION: Stable appearance of the chest. Vasu Barrientos MD Renal Biopsy CT 12/02/16 1350 Signed Impressions: Service Date/Time: Friday, December 02, 2016 08:33 - CONCLUSION: Uncomplicated CT guided biopsy of the right kidney for function. Mustapha Vela Jr., MD Upper Extremity Ultrasound 11/30/16 0000 Signed Impressions: Service Date/Time: Wednesday, November 30, 2016 01:39 - CONCLUSION: Unremarkable study except for a small amount of thrombus in the left cephalic vein. Andre Montemayor MD Catheter Placement X-Ray 11/28/16 0000 Signed Impressions: Service Date/Time: Monday, November 28, 2016 15:57 - CONCLUSION: Uncomplicated PermaCath placement as above. Mustapha Vela Jr., MD Chest CT 11/26/16 0000 Signed Impressions: Service Date/Time: Saturday, November 26, 2016 13:54 - CONCLUSION: 1. Dense consolidative right upper lobe pneumonia on a background of severe emphysema with cavitary foci within the consolidated areas. 2. There is patchy right middle and lower lobe pneumonia as well. 3. Bilateral effusions right greater than left. 4. Associated mediastinal adenopathy. Vasu Barrientos MD Renal Ultrasound 11/22/16 0000 Signed Impressions: Service Date/Time: Thursday, November 22, 2016 17:14 - CONCLUSION: Mild pelvocaliectasis right kidney not present previously. Obdulia Garcia MD Tubes & Lines: Perma-Cath, Herbert (Sirena,Milla B. CSR TECHNICIAN) Physical Exam General Appearance: Well Developed, Well Nourished, No Acute Distress, Comfortable (Sirena,Milla B. CSR TECHNICIAN) Eyes Eye Exam: Pupils Equal, Pupils Reactive (Sirena,Milla B. CSR TECHNICIAN) Throat Throat Exam: Oral Mucosa Mulford & Moist (Sirena,Milla B. CSR TECHNICIAN) Neck Neck Exam: Neck Supple (Sirena,Milla B. CSR TECHNICIAN) Pulmonary Resp Exam: Clear Bilaterally, Breath Sounds Equal, Decreased Bases (Sirena,Milla B. CSR TECHNICIAN) Cardiology CV Exam: Regular, Normal Sinus Rhythm, Good Perfusion (Sirena,Milla B. CSR TECHNICIAN) Gastrointestinal/Abdomen GI Exam: Soft, Non-Tender, Bowel Sounds Present (Sirena,Milla B. CSR TECHNICIAN) Musculoskeletal MS Exam: Joints Intact, Normal Tone, Good Strength (Sirena,Milla B. CSR TECHNICIAN) Integumentary Skin Exam: Clear, Warm, Dry, Intact (Sirena,Milla B. CSR TECHNICIAN) Extremeties Extremities Exam: No Edema, Pedal Pulses Palpable (Sirena,Milla B. CSR TECHNICIAN) Neurologic Neuro Exam: Alert, Awake, Oriented, Speech Clear (Sirena,Milla B. CSR TECHNICIAN) Psychiatric Psych Exam: Appropriate Responses (Sirena,Milla B. CSR TECHNICIAN) Assessment/Plan Discussed Condition With: Patient Assessment Summary: SEJAL/Acute Renal Failure, Anemia of CKD Electrolyte Assessment: Hypocalcemia, Hypokalemia, Metabolic Acidosis Problem List: (1) Acute renal failure ICD Codes: N17.9 - Acute kidney failure, unspecified Status: Acute Plan: Baseline creatinine of 2.0 from July of 2013. S/P renal biopsy: preliminary report showing this is not an acute process; he has scarring and features of MPGN. Given the fact that he is Hepatitis C positive, it is possible that it is Hepatitis C related. Patient has significant global glomerulosclerosis, tubular atrophy and interstitial fibrosis. 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, D/W patient in the meantime vascular has been consulted for AVF placement; vein mapping has been ordered we will have case management begin to apply for medicaid, most likely will need to undergo the transitional HD program In the meantime continue HD MWF, due tomorrow repeat labs daily monitor potassium, it is now in normal range not on IVF no dietary protein restriction (2) Acidosis ICD Codes: E87.2 - Acidosis Status: Acute Plan: corrected, monitor (3) GI bleed ICD Codes: K92.2 - Gastrointestinal hemorrhage, unspecified Status: Acute Plan: Hb improved GI following, needs EGD/colonoscopy this admission off protonix gtt (4) Sepsis ICD Codes: A41.9 - Sepsis, unspecified organism Status: Acute Plan: being treated for pneumonia On Cefepime, follow clinically (5) Hypocalcemia ICD Codes: E83.51 - Hypocalcemia Plan: with a vitamin D deficiency, improving with vitamin D supplementation continue to treat hyperphosphatemia, renvela dosage increased monitor check PTH as he may have secondary hyperparathyroidism (6) Anemia ICD Codes: D64.9 - Anemia Status: Acute Plan: continue epogen with dialysis iron profile ordered transfuse if necessary (Milla Pack) Plan patient was seen and examined. Renal biopsy findings were discussed. There is significant amount of chronicity. It is quite possible that he has reached ESRD. 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 (Jim Zuluaga MD) Problem Qualifiers (1) Acute renal failure: (2) GI bleed: (3) Sepsis: (4) Anemia: Milla Pack Dec 04, 2016 14:49 Jim Zuluaga MD Dec 04, 2016 16:24
[2016-12-04] MEDS ORDERED: DEXT 5%-NACL 0.45% 1000 ML INJ 1,000 ML IV SCH (17:40)
[2016-12-04] MEDS ORDERED: RESP: ALBUTEROL CONC 2.5 MG/0.5 ML NEB NEB SCH (17:45)
--- NOTE | 2016-12-04 17:52 | HHI.PR ---
Subjective Remarks Alert and breathing better.No fever.For dialysis in am. went for a kidney biopsy and Path pending CXR is stable with a dense Right Pneumonia. No fever. Objective Vital Signs Date Time Temp Pulse Resp B/P (MAP) Pulse Ox O2 Delivery O2 Flow Rate FiO2 12/04/16 16:00 97.3 98 16 142/87 (105) 95 12/04/16 12:00 97.2 93 16 144/77 (99) 88 12/04/16 08:00 97.4 93 18 150/86 (107) 92 12/04/16 07:15 Nasal Cannula 3.00 Humidified 12/04/16 04:00 Nasal Cannula 3.00 Humidified 12/04/16 04:00 97.8 86 20 109/66 (80) 94 12/04/16 00:00 97.6 94 20 112/63 (79) 96 12/04/16 00:00 Humidified 3.00 12/03/16 20:00 98.1 105 20 120/67 (84) 93 12/03/16 20:00 Nasal Cannula 3.00 12/03/16 19:39 92 Nasal Cannula 3.00 I/O 12/03/16 12/03/16 12/03/16 12/04/16 12/04/16 12/04/16 07:00 15:00 23:00 07:00 15:00 23:00 Intake Total 480 ml 610 ml Output Total 850 ml 1300 ml Balance -370 ml -690 ml Intake Oral 480 ml 360 ml IV Total 250 ml Output Urine Total 850 ml 300 ml Hemodialysis 1000 ml # Bowel Movements 0 Result Diagram: 12/04/16 0711 12/04/16 0711 Objective Remarks GENERAL: This is a middle-aged averagely built white male who is alert and in no acute distress. HEAD, EYES, EARS, NOSE, THROAT: Head normocephalic. The pupils are reactive. Tongue is dry. Throat is clear. Nasal mucosa is clear. NECK: The neck is supple. No bruits. No thyroid enlargement. No lymphadenopathy. CHEST: Equal movements. There are scattered coarse wheezes in the upper lung june with Occ crackles in the Right chest. HEART: Heart sounds are regular. S1 and S2. No murmur. ABDOMEN: Abdomen is soft and protuberant. No masses or tenderness. EXTREMITIES: Varicosities.No edema. No calf tenderness. NEUROLOGIC: Reflexes are normal. No focal deficits. SKIN: Dry and cool. Assessment and Plan Assessment and Plan IMPRESSION: 1. Extensive right lung pneumonia with hypoxemia. 2. Chronic kidney disease with acute renal failure. 3. COPD with emphysema and chronic bronchitis. 4. History of coronary artery bypass grafting. Plan : 1. IS q3h at bedside 2. O2 at 2L. 3. Will D/C Zithromax 4. BMP,CBC in am. 5. Will schedule Bronchoscopy in am.Procedure and risks Including Bleeding and Pneumothorax , Resp failure were discussed 6. Dialysis as planned. 7. Coag Profile and CBC in am Alison Wilson MD Dec 04, 2016 17:52
[2016-12-04 19:38] LABS: AUTOMATED NEUTROPHIL # 9.6 TH/MM3 (1.8-7.7); BASOPHIL % 0.2 % (0.0-2.0); EOSINOPHIL % 0.1 % (0.0-4.0); HEMATOCRIT 24.5 % (39.0-51.0); HEMO FLAGS DIFF FINAL; LYMPH % 14.5 % (9.0-44.0); LYMPHOCYTE # 1.7 TH/MM3 (1.0-4.8); MEAN CELL VOLUME 93.3 FL (80.0-100.0); MEAN CORPUSCULAR HEMOGLOBIN 30.7 PG (27.0-34.0); MEAN CORPUSCULAR HGB CONC 32.9 % (32.0-36.0); NEUT % 82.2 % (16.0-70.0); PLATELET COUNT 141 TH/MM3 (150-450); RED BLOOD COUNT 2.63 MIL/MM3 (4.50-5.90); RED CELL DISTRIBUTION WIDTH 16.9 % (11.6-17.2); WHITE BLOOD COUNT 11.6 TH/MM3 (4.0-11.0)
[2016-12-04 19:43] LABS: PROTHROMBIN TIME - PATIENT 11.3 SEC (9.8-11.6)
--- NOTE | 2016-12-04 20:26 | RADRPT ---
EXAM DATE/TIME: 12/04/2016 18:26 [facility] COMPARISON: No previous studies available for comparison. INDICATIONS : Arterio-venous fistula placement evaluation. MEDICAL HISTORY : Myocardial infarction. Hypertension. Osteoporosis. Neck pain. Dizziness. Chest pain. COPD. Asthma. Dy spnea. Ulcer. Renal failure. Urinary tract infection. Polyuria. SURGICAL HISTORY : Three vessel bypass. Bone marrow harvest. ENCOUNTER: Initial ACUITY: 2 weeks PAIN SCORE: 0/10 LOCATION: Bilateral arms. CEPHALIC: ORIGIN: Right Non-visualized Left Thrombosed MID-ARM: Right Non-visualized Left Thrombosed ELBOW: Right Non-visualized Left Thrombosed FOREARM: Right 1 mm Left Thrombosed WRIST: Right Thrombosed Left Thrombosed BASILIC: ORIGIN: Right 4 mm Left 4 mm MID-ARM: Right 4 mm Left 4 mm ELBOW: Right 4 mm Left 4 mm ARTERIES: BRACHIAL: Right 5 mm Left 5 mm ULNAR: Right 2 mm Left 2 mm RADIAL: Right 2 mm Left 1 mm VEINS: RADIAL: Right 1 mm Left 1 mm ULNAR: Right 1 mm Left 1 mm FINDINGS: The venous system of the upper extremities are patent by color Doppler imaging. Measurements of the arm veins (in mm) are listed above. There is thrombus of the entire left cephalic vein. There is thrombus of the right cephalic vein at the wrist. The right cephalic vein is small in the forearm and not visualized at the elbow or in the upper arm. CONCLUSION: Venous mapping as delineated above. The cephalic veins are abnormal bilaterally. Caio Villalpando MD on December 04, 2016 at 20:22 Board Certified Radiologist. This report was verified electronically.
[2016-12-05] VITALS: BP 155/72; PULSE 90; RESP 20; TEMP 97.8; O2SAT 97
[2016-12-05 04:00] VITALS: BP 138/75; PULSE 77; RESP 20; TEMP 97.4; O2SAT 94
[2016-12-05 08:00] VITALS: BP 144/88; PULSE 91; RESP 20; TEMP 97.6; O2SAT 95
[2016-12-05] MEDS: DOCUSATE SODIUM 50 MG/SENNA 8.6 MG TAB PO SCH (08:24)
[2016-12-05] MEDS: POTASSIUM CHLORIDE 20 MEQ CONTROLLED RELEASE TAB PO SCH (08:24)
[2016-12-05] MEDS: CHOLECALCIFEROL (VIT D3) 1000 UNIT TAB PO SCH (08:24)
[2016-12-05] MEDS: CEFEPIME INJ 1,000 MG in SODIUM CHLORIDE 0.9% INJ 100 ML IV SCH (08:24)
[2016-12-05] MEDS: PANTOPRAZOLE SOD 40 MG DELAYED RELEASE TAB PO SCH ×2 (08:24→21:16)
[2016-12-05] MEDS: SEVELAMER CARBONATE 800 MG TAB PO SCH ×3 (08:24→21:16)
[2016-12-05] MEDS: LACTOBACILLUS ACIDOPHILUS TAB PO SCH ×2 (08:24→21:16)
[2016-12-05] MEDS: HYDROCORTISONE ACETATE 25 MG SUPP RECTAL SCH (08:25)
--- NOTE | 2016-12-05 09:48 | HHI.PR ---
Subjective Remarks Follow-up GI bleed/acute on chronic kidney disease/anemia 11/24/16-patient seen and examined, complains of low back pain as well as insomnia 3 days. Hemoglobin 7.1 but denies any hemoptysis or hematemesis. 11/25/16-patient seen and examined, 3 L nasal cannula with some shortness of breath. Responded to 2 units blood transfusion yesterday. He was somnolent this a.m. and states he feels groggy 11/26/16-patient seen and examined, much more alert and oriented today still with some shortness of breath however denies any chest pain. No GI bleed. Patient with some rash 11/27/16-patient seen and examined, positive for shortness of breath and currently satting 91% on 2 L nasal cannula however accessory muscle. 11/28/16-patient seen and examined, and instrument stable and denies any GI bleed. Positive for shortness of breath and currently on 3 L nasal cannula 11/29/16-patient seen and examined; he had first time HD today 11/30/16-patient seen and examined, complains of itching otherwise stable. Denies any significant shortness of breath 12/01/16-patient seen and examined, improving renal indices. Patient denies any significant shortness of breath today. Denies any itching. Afebrile. Potassium 2.4 12/02/16-patient seen and examined, had kidney biopsy today. No other issues unstable. 12/03/16-patient seen and examined; still with some black stools; breathing better 12/04/16-patient seen and examined, patient stated he is feeling much better and breathing better 12/05/16-patient seen and examined, currently nothing by mouth pending bronchoscopy today. 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 Otherwise stable Objective Vitals Vital Signs Date Time Temp Pulse Resp B/P (MAP) Pulse Ox O2 Delivery O2 Flow Rate FiO2 12/05/16 07:53 Nasal Cannula 3.00 Humidified 12/05/16 04:00 97.4 77 20 138/75 (96) 94 12/05/16 00:00 97.8 90 20 155/72 (99) 97 12/04/16 22:09 97 Nasal Cannula 3.00 12/04/16 20:09 Nasal Cannula Humidified 12/04/16 20:05 97 12/04/16 20:00 97.5 97 20 160/78 (105) 97 12/04/16 18:19 95 Nasal Cannula 3.00 12/04/16 16:00 97.3 98 16 142/87 (105) 95 12/04/16 12:00 97.2 93 16 144/77 (99) 88 I/O 12/04/16 12/04/16 12/04/16 12/05/16 12/05/16 12/05/16 07:00 15:00 23:00 07:00 15:00 23:00 Intake Total 600 ml Output Total 465 ml 625 ml Balance 135 ml -625 ml Intake Oral 600 ml Output Urine Total 465 ml 625 ml # Voids 1 # Bowel Movements 1 Result Diagram: 12/04/16 1905 12/04/16 0711 Imaging Last Impressions Upper Extremity Ultrasound 12/04/16 0000 Signed Impressions: Service Date/Time: November 18:26 - CONCLUSION: Venous mapping as delineated above. The cephalic veins are abnormal bilaterally. Caio Villalpando MD Chest X-Ray 12/03/16 0600 Signed Impressions: Service Date/Time: Saturday, December 03, 2016 06:18 - CONCLUSION: Stable appearance of the chest. Vasu Barrientos MD Renal Biopsy CT 12/02/16 1350 Signed Impressions: Service Date/Time: Friday, December 02, 2016 08:33 - CONCLUSION: Uncomplicated CT guided biopsy of the right kidney for function. Mustapha Vela Jr., MD Catheter Placement X-Ray 11/28/16 0000 Signed Impressions: Service Date/Time: Monday, November 28, 2016 15:57 - CONCLUSION: Uncomplicated PermaCath placement as above. Mustapha Vela Jr., MD Chest CT 11/26/16 0000 Signed Impressions: Service Date/Time: Saturday, November 26, 2016 13:54 - CONCLUSION: 1. Dense consolidative right upper lobe pneumonia on a background of severe emphysema with cavitary foci within the consolidated areas. 2. There is patchy right middle and lower lobe pneumonia as well. 3. Bilateral effusions right greater than left. 4. Associated mediastinal adenopathy. Vasu Barrientos MD Renal Ultrasound 11/22/16 0000 Signed Impressions: Service Date/Time: Tuesday, November 22, 2016 17:14 - CONCLUSION: Mild pelvocaliectasis right kidney not present previously. Obdulia Garcia MD Objective Remarks GENERAL: NAD SKIN: Warm and dry.Rash to his abdomen HEAD: Normocephalic. EYES: No scleral icterus. No injection or drainage. NECK: Supple, trachea midline. No JVD or lymphadenopathy. CARDIOVASCULAR: Regular rate and rhythm without murmurs, gallops, or rubs. RESPIRATORY: Breath sounds equal bilaterally. No accessory muscle use. GASTROINTESTINAL: Abdomen soft, non-tender, nondistended. MUSCULOSKELETAL: No cyanosis, or edema. BACK: Nontender without obvious deformity. No CVA tenderness. A/P Problem List: (1) Sepsis ICD Code: A41.9 - Sepsis, unspecified organism Status: Acute (2) Acute renal failure ICD Code: N17.9 - Acute kidney failure, unspecified Status: Acute (3) Pneumonia ICD Code: J18.9 - Pneumonia, unspecified organism Status: Acute (4) Coronary artery disease ICD Code: I25.10 - Coronary artery disease Status: Acute (5) Anemia ICD Code: D64.9 - Anemia Status: Acute (6) Hematochezia ICD Code: K92.1 - Melena Status: Acute (7) Hypokalemia ICD Code: E87.6 - Hypokalemia Status: Acute Assessment and Plan 55-year-old man with Sepsis suspect secondary to right multilobular pneumonia-resolved -Continue cefepime 1 g every 12 hours (end date 12/06/16) Acute kidney failure ATN? -Renal indices improving -Management per nephrology - US kidney/renal/bladder ordered and reviewed showing mild pelvocaliectasis right kidney. -Status post right kidney biopsy 12/02/16 with report of finding membranoproliferative glomerulonephritis -Hemodialysis per nephrology Hypokalemia -Management per nephrology -Resolved Normochromic, normocytic anemia suspect secondary to acute blood loss/ hematochezia -Transfused total of 5 RBCs since admission, and transfuse for HgB<7.0 -Continue Protonix 40 mg twice a day ; appreciate input from GI -Plan for EGD/Colonoscopy possible next next week when medically stable Chronic obstructive pulmonary disease respiratory failure - Continue scheduled and PRN duonebs. - Supplemental O2 to keep sats >88%. - pulmonary medicine consultation appreciated -Plan for bronchoscopy 12/05/16 today Skin rash and itching Resolved with Benadryl when necessary Hypoalbuminemia suspect secondary to poor PO intake Severe emancipation - Tumor markers were ordered and reviewed. DVT Prophylaxis: SCDs/TEDs. Discharge Planning Discharge home when medically stable and cleared by nephrology, GI, pulmonary medicine Problem Qualifiers (1) Sepsis: (2) Acute renal failure: (3) Pneumonia: (4) Anemia: Broderick Barajas MD Dec 05, 2016 09:48
[2016-12-05] MEDS ORDERED: LIDOCAINE HCL 4% PF 5 ML AMP ONE ×2 (10:48→11:06)
[2016-12-05] MEDS ORDERED: LIDOCAINE VISCOUS 2% SOLN 15 ML UDC ONE (10:48)
[2016-12-05] MEDS ORDERED: LIDOCAINE HCL 2% 50 ML VIAL ONE (10:48)
[2016-12-05] MEDS ORDERED: EPINEPHrine HCL (1:1000) 1 MG/ML VIAL ONE (10:48)
[2016-12-05 11:04] LABS: ANION GAP 15 MEQ/L (5-15); BICARBONATE 24.6 MEQ/L (21.0-32.0); BLOOD UREA NITROGEN 55 MG/DL (7-18); CHLORIDE 104 MEQ/L (98-107); GLOMERULAR FILTRATION RATE 10 ML/MIN (>89); SODIUM (NA) 144 MEQ/L (136-145); TRANSFERRIN IRON PROFILE 101 MG/DL (200-360)
[2016-12-05] MEDS ORDERED: FAMOTIDINE 20 MG/2 ML VIAL ONE (11:12)
[2016-12-05] MEDS ORDERED: DO NOT ADM ANY ANTICOAGULANT DRUGS PRN (11:55)
[2016-12-05] MEDS ORDERED: *RESP: ALBUTEROL 2.5 MG/3 ML NEB (PRN) PERIprocedural Use ONLY NEB ONE (11:59)
[2016-12-05] MEDS ORDERED: RESP: ALBUTEROL 2.5 MG/3 ML NEB (PRN) NEB (12:00)
--- NOTE | 2016-12-05 12:43 | RADRPT ---
EXAM DATE/TIME: 12/05/2016 11:54 [facility] COMPARISON: CHEST SINGLE AP, December 03, 2016, 6:18. INDICATIONS : Patient short of brath post bronchoscopy. MEDICAL HISTORY : renal failure SURGICAL HISTORY : None. ENCOUNTER: Initial ACUITY: 2 weeks PAIN SCORE: 2/10 LOCATION: Bilateral upper chest FINDINGS: \Decreasing consolidation is right upper lobe with dialysis catheter in good position. Left lung is clear. Sternal wires are noted. CONCLUSION: Persistent is unchanged as are upper lobe without pneumothorax following bronchoscopy.. Orlin Willingham MD FACR on December 05, 2016 at 12:40 Board Certified Radiologist. This report was verified electronically.
--- NOTE | 2016-12-05 14:40 | HHI.NPPN ---
Subjective General Problems: Anemia Renal Failure: Acute Interval History He had bronchoscopy today, tolerated well. Due for HD today. (Milla Pack) Review of Systems General Constitutional: Fatigue (Milla Pack) Objective Data Data 12/05/16 12/06/16 18:59 06:59 Intake Total 1000 ml Output Total 0 ml Balance 1000 ml IV Total 150 ml Other 850 ml Estimated Blood Loss 0 ml Vital Signs Date Time Temp Pulse Resp B/P (MAP) Pulse Ox O2 Delivery O2 Flow Rate FiO2 12/05/16 12:45 97.7 96 22 114/63 (80) 94 Nasal Cannula 4 12/05/16 12:30 97 23 112/63 (79) 94 Nasal Cannula 4 12/05/16 12:15 105 23 95/57 (70) 94 Nasal Cannula 4 12/05/16 12:00 104 23 105/66 (79) 92 Nasal Cannula 4 12/05/16 11:55 97.6 102 20 99/57 (71) 90 Nasal Cannula 4 12/05/16 08:00 97.6 91 20 144/88 (106) 95 12/05/16 07:53 Nasal Cannula 3.00 Humidified 12/05/16 04:00 97.4 77 20 138/75 (96) 94 12/05/16 00:00 97.8 90 20 155/72 (99) 97 12/04/16 22:09 97 Nasal Cannula 3.00 12/04/16 20:09 Nasal Cannula Humidified 12/04/16 20:05 97 12/04/16 20:00 97.5 97 20 160/78 (105) 97 12/04/16 18:19 95 Nasal Cannula 3.00 12/04/16 16:00 97.3 98 16 142/87 (105) 95 (Milla Pack) -: 12/04/16 1905 12/05/16 0659 Microbiology 12/05/16 Fungal Smear, Received Pending 12/05/16 Fungal Culture, Received Pending 12/05/16 Acid Fast Stain, Received Pending 12/05/16 Mycobacterial Culture, Received Pending 12/05/16 Gram Stain, Received Pending 12/05/16 Bronchial Culture, Received Pending 12/05/16 Fungal Smear - Final, Resulted 12/05/16 Fungal Culture, Resulted Pending 12/05/16 Acid Fast Stain, Received Pending 12/05/16 Mycobacterial Culture, Received Pending 12/05/16 Bronchial Aspirate Culture, Received Pending Imaging Last 72 hours Impressions Chest X-Ray 12/05/16 0000 Signed Impressions: Service Date/Time: Monday, December 05, 2016 11:54 - CONCLUSION: Persistent is unchanged as are upper lobe without pneumothorax following bronchoscopy.. Orlin Willingham MD FACR Upper Extremity Ultrasound 12/04/16 0000 Signed Impressions: Service Date/Time: November 18:26 - CONCLUSION: Venous mapping as delineated above. The cephalic veins are abnormal bilaterally. Caio Villalpando MD Chest X-Ray 12/03/16 0600 Signed Impressions: Service Date/Time: Saturday, December 03, 2016 06:18 - CONCLUSION: Stable appearance of the chest. Vasu Barrientos MD Tubes & Lines: Perma-Cath, Herbert (Milla Pack B. MANAGER [employer]) Physical Exam General Appearance: Well Developed, Well Nourished, No Acute Distress, Comfortable (Milla Pack B. MANAGER [employer]) Eyes Eye Exam: Pupils Equal, Pupils Reactive (Milla Pack B. MANAGER [employer]) Throat Throat Exam: Oral Mucosa [place] [facility] [employer] (Milla Pack B. MANAGER [employer]) Neck Neck Exam: Neck Supple (SirenaMilla B. MANAGER [employer]DR[employer]) Pulmonary Resp Exam: Clear Bilaterally, Breath Sounds Equal, Decreased Bases (Philip Packon B. MANAGER [employer]DR[employer]) Cardiology CV Exam: Regular, Normal Sinus Rhythm, Good Perfusion (Milla Pack B. MANAGER [employer]) Gastrointestinal/Abdomen GI Exam: Soft, Non-Tender, Bowel Sounds Present (Milla Pack B. MANAGER [employer]) Musculoskeletal MS Exam: Joints Intact, Normal Tone, Good Strength (Milla Pack B. MANAGER [employer]) Integumentary Skin Exam: Clear, Warm, Dry, Intact (Milla Pack B. MANAGER [employer]) Extremeties Extremities Exam: No Edema, Pedal Pulses Palpable (Milla Pack B. MANAGER [employer]) Neurologic Neuro Exam: Alert, Awake, Oriented, Speech Clear (Milla Pack B. MANAGER [employer]DR[employer]) Psychiatric Psych Exam: Appropriate Responses (Sirena,Milla B. MANAGER [employer]) Assessment/Plan Discussed Condition With: Patient Assessment Summary: SEJAL/Acute Renal Failure, Anemia of CKD Electrolyte Assessment: Hypocalcemia, Hypokalemia, Metabolic Acidosis Problem List: (1) Acute renal failure ICD Codes: N17.9 - Acute kidney failure, unspecified Status: Acute Plan: Baseline creatinine of 2.0 from July of 2013. S/P renal biopsy: preliminary report showing this is not an acute process; he has scarring and features of MPGN. Given the fact that he is Hepatitis C positive, it is possible that it is Hepatitis C related. Patient has significant global glomerulosclerosis, tubular atrophy and interstitial fibrosis. 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, the patient is aware vascular has evaluated for AVF placement; vein mapping done; may be this admission In the meantime continue HD MWF, he is due today repeat labs daily hypokalemic today, will dialyze on 4K bath not on IVF no dietary protein restriction case management has begin to apply for medicaid, most likely will need to undergo the transitional HD program (2) Acidosis ICD Codes: E87.2 - Acidosis Status: Acute Plan: corrected, monitor (3) GI bleed ICD Codes: K92.2 - Gastrointestinal hemorrhage, unspecified Status: Acute Plan: Hb improved GI following, needs EGD/colonoscopy this admission; he is medically stable for procedure off protonix gtt (4) Sepsis ICD Codes: A41.9 - Sepsis, unspecified organism Status: Acute Plan: being treated for pneumonia On Cefepime, follow clinically (5) Hypocalcemia ICD Codes: E83.51 - Hypocalcemia Plan: with a vitamin D deficiency, on oral vitamin D also secondary hyperparathyroidism, calcitriol started continue to treat hyperphosphatemia, renvela dosage increased (6) Anemia ICD Codes: D64.9 - Anemia Status: Acute Plan: continue epogen with dialysis no evidence of iron deficiency transfuse if necessary (Milla Pack) Plan patient was seen and examined. Dialysis today on 4K. Bronchoscopy is planned. Needs prison dialysis most likely. Recommend AVF placement during this admission. (Jim Zuluaga MD) Problem Qualifiers (1) Acute renal failure: (2) GI bleed: (3) Sepsis: (4) Anemia: Milla Pack Dec 05, 2016 14:40 Jim Zuluaga MD Dec 05, 2016 15:40
[2016-12-05] MEDS: CALCITRIOL 0.25 MCG CAP PO SCH (15:41)
[2016-12-05] MEDS: EPOETIN ALFA 10,000 UNITS/ML VIAL IV PRN ×2 (17:43→19:08)
[2016-12-05] MEDS: HEPARIN SODIUM - IV 10,000 UNITS/10 ML VIAL PRN (17:44)
[2016-12-05] MEDS: GENTAMICIN SULFATE (DIALYSIS USE ONLY) 20 MG/2 ML VIAL IV PRN (17:45)
[2016-12-05 20:00] VITALS: BP 90/57; PULSE 106; RESP 20; TEMP 97.1; O2SAT 99
--- NOTE | 2016-12-05 20:00 | HHI.GIFU ---
Subjective Remarks Pt just returned from dialysis. He had bronchoscopy today in the morning. Waiting for results. His Hb is stable. No abdominal pain. Objective Vitals I&O Vital Signs Date Time Temp Pulse Resp B/P (MAP) Pulse Ox O2 Delivery O2 Flow Rate FiO2 12/05/16 17:54 Nasal Cannula 3.00 12/05/16 12:45 97.7 96 22 114/63 (80) 94 Nasal Cannula 4 12/05/16 12:30 97 23 112/63 (79) 94 Nasal Cannula 4 12/05/16 12:15 105 23 95/57 (70) 94 Nasal Cannula 4 12/05/16 12:00 104 23 105/66 (79) 92 Nasal Cannula 4 12/05/16 11:55 97.6 102 20 99/57 (71) 90 Nasal Cannula 4 12/05/16 08:00 97.6 91 20 144/88 (106) 95 12/05/16 07:53 Nasal Cannula 3.00 Humidified 12/05/16 04:00 97.4 77 20 138/75 (96) 94 12/05/16 00:00 97.8 90 20 155/72 (99) 97 12/04/16 22:09 97 Nasal Cannula 3.00 12/04/16 20:09 Nasal Cannula Humidified 12/04/16 20:05 97 12/04/16 20:00 97.5 97 20 160/78 (105) 97 I/O 12/04/16 12/04/16 12/04/16 12/05/16 12/05/16 12/05/16 06:59 14:59 22:59 06:59 14:59 22:59 Intake Total 600 ml 1000 ml Output Total 465 ml 625 ml 0 ml 3300 ml Balance 135 ml -625 ml 1000 ml -3300 ml Intake Oral 600 ml IV Total 150 ml Other 850 ml Output Urine Total 465 ml 625 ml 300 ml Hemodialysis 3000 ml Estimated Blood Loss 0 ml # Voids 1 1 # Bowel Movements 1 Laboratory Laboratory Tests Test 12/05/16 06:59 Blood Urea Nitrogen 55 Creatinine 6.19 Random Glucose 73 Albumin 1.6 Calcium Level 8.1 Phosphorus Level 8.4 Sodium Level 144 Potassium Level 3.0 Chloride Level 104 Carbon Dioxide Level 24.6 Anion Gap 15 Estimat Glomerular Filtration Rate 10 Iron Level 86 Total Iron Binding Capacity 141 Percent Iron Saturation 60.8 Date/Time Source Procedure Growth Status 11/22/16 15:20 Blood Peripheral Aerobic Blood Culture - Final NO GROWTH IN 5 DAYS Complete 11/22/16 15:20 Blood Peripheral Anaerobic Blood Culture - Final NO GROWTH IN 5 DAYS Complete 11/22/16 20:30 Stool Stool Cryptosporidium Exam - Final NEGATIVE - NO CRYPTOSPORIDIUM ANTIGEN... Complete 11/22/16 20:30 Stool Stool Stool Pus (MANOLO) - Final FEW WBC'S Complete 11/22/16 20:30 Stool Stool Giardia Antigen (MANOLO) - Final NEGATIVE - NO GIARDIA ANTIGEN DETECTE... Complete 12/05/16 11:41 Bronchial Washings Right Upper Lobe Fungal Smear Pending Received 12/05/16 11:41 Bronchial Washings Right Upper Lobe Fungal Culture Pending Received 11/25/16 12:00 Urine Catheterized Urine Urine Culture - Final NO GROWTH IN 48 HOURS. Complete Physical Exam HEENT: Normocephalic; atraumatic; no jaundice. CHEST: Diminished throughout, 3L NC SOB to conversation at this time CARDIAC: Regular, tachycardia ABDOMEN: Soft, nondistended, nontender; no hepatosplenomegaly; bowel sounds are present in all four quadrants. EXTREMITIES: No clubbing, cyanosis, or edema. SKIN: Normal; no rash; no jaundice. CLERK: No focal deficits; alert and oriented times three. Assessment and Plan Plan ASSESSMENT: - Anemia ( hgb of 6 on admission) with rectal bleeding for over a year secondary to hemorrhoids per patient - States copious amounts of blood filling the toilet monthly for a week duration at a time. S/P 4 units of PRBC. HH stable Would benefit from EGD/Colonoscopy when medically cleared - Hemorrhoids. Add hydrocortisone suppositories - Diarrhea. CDiff negative. No enteric pathogens, negative for cryptosporidium , negative for giardia. Few wbc. D/W patient trial of imodium- does not want to take. Is open to trying probiotics. - ARF with electrolytes. improving. Renal following,started HD Defer to renal. biopsy tomorrow. - Resp. Insufficiency with multilobular PNA/severe emphysema, per pulmonary - Leukocytosis- trending down, afebrile, , ESR > 140, blood cx no growth 2d - Weight loss- 10-15 ibs in the last 3 weeks due to poor appetite and Po intake - Hypokalemia- Secondary to above, replaced by attending - Hx of CABG, COPD per attending Plan: - Heart healthy diet - Cont. PPI - Hydrocortisone suppositories - Monitor hh - Transfuse as needed - EGD/Colonoscopy TBD, after medically cleared for endoscopy - await results of bronchoscopy - Pt is willing to have EGD/colonoscopy when appropriate. Abhay Craft MD Dec 05, 2016 20:00
[2016-12-05 20:58] VITALS: PULSE 106
[2016-12-05 23:45] VITALS: BP 98/63; PULSE 102
[2016-12-05] MEDS: TEMAZEPAM 15 MG CAP PO PRN (23:46)
[2016-12-06] VITALS (9 sets, daily range): BP systolic 93–125; BP diastolic 56–87; PULSE 98–107; RESP 18–20; TEMP 97.6–98.4; O2SAT 96–100
[2016-12-06 08:07] LABS: AUTOMATED NEUTROPHIL # 5.5 TH/MM3 (1.8-7.7); BASOPHIL # 0.1 TH/MM3 (0-0.2); BASOPHIL % 0.9 % (0.0-2.0); EOSINOPHIL # 0.4 TH/MM3 (0-0.4); EOSINOPHIL % 4.7 % (0.0-4.0); HEMO FLAGS DIFF FINAL; LYMPH % 24.3 % (9.0-44.0); LYMPHOCYTE # 2.1 TH/MM3 (1.0-4.8); MEAN CELL VOLUME 92.5 FL (80.0-100.0); MEAN CORPUSCULAR HEMOGLOBIN 30.7 PG (27.0-34.0); MEAN CORPUSCULAR HGB CONC 33.2 % (32.0-36.0); MONO % 7.4 % (0.0-8.0); NEUT % 62.7 % (16.0-70.0); PLATELET COUNT 150 TH/MM3 (150-450); RED BLOOD COUNT 2.49 MIL/MM3 (4.50-5.90); RED CELL DISTRIBUTION WIDTH 16.4 % (11.6-17.2); WHITE BLOOD COUNT 8.7 TH/MM3 (4.0-11.0)
[2016-12-06] MEDS: SEVELAMER CARBONATE 800 MG TAB PO SCH ×3 (08:42→17:01)
[2016-12-06] MEDS: CHOLECALCIFEROL (VIT D3) 1000 UNIT TAB PO SCH (08:42)
[2016-12-06] MEDS: PANTOPRAZOLE SOD 40 MG DELAYED RELEASE TAB PO SCH ×2 (08:42→21:17)
[2016-12-06] MEDS: CEFEPIME INJ 1,000 MG in SODIUM CHLORIDE 0.9% INJ 100 ML IV SCH (08:42)
[2016-12-06] MEDS: POTASSIUM CHLORIDE 20 MEQ CONTROLLED RELEASE TAB PO SCH (08:42)
[2016-12-06] MEDS: LACTOBACILLUS ACIDOPHILUS TAB PO SCH ×2 (08:42→21:17)
[2016-12-06] MEDS: HYDROCORTISONE ACETATE 25 MG SUPP RECTAL SCH (08:43)
[2016-12-06] MEDS: CALCITRIOL 0.25 MCG CAP PO SCH (08:43)
[2016-12-06 08:50] LABS: BICARBONATE 29.4 MEQ/L (21.0-32.0); POTASSIUM 3.3 MEQ/L (3.5-5.1)
--- NOTE | 2016-12-06 09:27 | PD.VS.PN ---
Subjective Subjective/Hospital Course Pt with new onset HD and needs permanent access HD settling in to [facility] routine Mapping suggested adequate L basilic vein RIGHT handed Objective Vitals/I&O Date Time Temp Pulse Resp B/P (MAP) Pulse Ox O2 Delivery O2 Flow Rate FiO2 12/06/16 08:00 97.6 107 19 93/56 (68) 97 12/06/16 04:00 97.6 100 20 125/87 (100) 100 12/06/16 04:00 Nasal Cannula 3.00 Humidified 12/06/16 00:21 98.4 100 20 95/63 (74) 96 12/06/16 00:00 Nasal Cannula 3.00 Humidified 12/05/16 23:45 102 98/63 (75) 12/05/16 20:58 106 12/05/16 20:00 97.1 106 20 90/57 (68) 99 12/05/16 20:00 Nasal Cannula 3.00 Humidified 12/05/16 17:54 Nasal Cannula 3.00 12/05/16 12:45 97.7 96 22 114/63 (80) 94 Nasal Cannula 4 12/05/16 12:30 97 23 112/63 (79) 94 Nasal Cannula 4 12/05/16 12:15 105 23 95/57 (70) 94 Nasal Cannula 4 12/05/16 12:00 104 23 105/66 (79) 92 Nasal Cannula 4 12/05/16 11:55 97.6 102 20 99/57 (71) 90 Nasal Cannula 4 12/06/16 12/06/16 12/06/16 07:00 15:00 23:00 Intake Total 600 ml Output Total 225 ml Balance 375 ml Physical Exam L UE without incisions palpable brachial and radial pulses No edema Laboratory Laboratory Tests Test 12/06/16 07:12 White Blood Count 8.7 Red Blood Count 2.49 Hemoglobin 7.7 Hematocrit 23.0 Mean Corpuscular Volume 92.5 Mean Corpuscular Hemoglobin 30.7 Mean Corpuscular Hemoglobin Concent 33.2 Red Cell Distribution Width 16.4 Platelet Count 150 Mean Platelet Volume 9.3 Neutrophils (%) (Auto) 62.7 Lymphocytes (%) (Auto) 24.3 Monocytes (%) (Auto) 7.4 Eosinophils (%) (Auto) 4.7 Basophils (%) (Auto) 0.9 Neutrophils # (Auto) 5.5 Lymphocytes # (Auto) 2.1 Monocytes # (Auto) 0.6 Eosinophils # (Auto) 0.4 Basophils # (Auto) 0.1 CBC Comment DIFF FINAL Differential Comment Blood Urea Nitrogen 37 Creatinine 4.82 Random Glucose 82 Calcium Level 7.6 Sodium Level 141 Potassium Level 3.3 Chloride Level 103 Carbon Dioxide Level 29.4 Anion Gap 9 Estimat Glomerular Filtration Rate 13 Date/Time Source Procedure Growth Status 11/22/16 15:20 Blood Peripheral Aerobic Blood Culture - Final NO GROWTH IN 5 DAYS Complete 11/22/16 15:20 Blood Peripheral Anaerobic Blood Culture - Final NO GROWTH IN 5 DAYS Complete 11/22/16 20:30 Stool Stool Cryptosporidium Exam - Final NEGATIVE - NO CRYPTOSPORIDIUM ANTIGEN... Complete 11/22/16 20:30 Stool Stool Stool Pus (MANOLO) - Final FEW WBC'S Complete 11/22/16 20:30 Stool Stool Giardia Antigen (MANOLO) - Final NEGATIVE - NO GIARDIA ANTIGEN DETECTE... Complete 12/05/16 11:41 Bronchial Washings Right Upper Lobe Fungal Smear Pending Received 12/05/16 11:41 Bronchial Washings Right Upper Lobe Fungal Culture Pending Received 11/25/16 12:00 Urine Catheterized Urine Urine Culture - Final NO GROWTH IN 48 HOURS. Complete Imaging Last 48 hours Impressions Chest X-Ray 12/05/16 0000 Signed Impressions: Service Date/Time: Monday, December 05, 2016 11:54 - CONCLUSION: Persistent is unchanged as are upper lobe without pneumothorax following bronchoscopy.. Orlin Willingham MD FACR Assessment and Plan Plan new onset ESRD, likely chronic. 1. plan for L UE AVF: brachiobasilic configuration. Tentatively on for Wed after HD (please HD first shift) 2. LEFT ARM precautions. Clarence Pyle MD Dec 06, 2016 09:27
--- NOTE | 2016-12-06 11:12 | HHI.PR ---
Subjective Remarks Patient seen and examined this morning. His vitals are stable he's afebrile. Continues to be tachycardic. He feels lightheaded. States he feels his Hb is low. States he has been feeling this way for the past 3 days. Reports he had to end his HD early. Reports saw educational program assistant earlier, but did not tell him how he was feeling. Objective Vital Signs Date Time Temp Pulse Resp B/P (MAP) Pulse Ox O2 Delivery O2 Flow Rate FiO2 12/06/16 09:35 96 3.00 12/06/16 09:34 Nasal Cannula 3.00 Humidified 12/06/16 08:00 97.6 107 19 93/56 (68) 97 12/06/16 04:00 97.6 100 20 125/87 (100) 100 12/06/16 04:00 Nasal Cannula 3.00 Humidified 12/06/16 00:21 98.4 100 20 95/63 (74) 96 12/06/16 00:00 Nasal Cannula 3.00 Humidified 12/05/16 23:45 102 98/63 (75) 12/05/16 20:58 106 12/05/16 20:00 97.1 106 20 90/57 (68) 99 12/05/16 20:00 Nasal Cannula 3.00 Humidified 12/05/16 17:54 Nasal Cannula 3.00 12/05/16 12:45 97.7 96 22 114/63 (80) 94 Nasal Cannula 4 12/05/16 12:30 97 23 112/63 (79) 94 Nasal Cannula 4 12/05/16 12:15 105 23 95/57 (70) 94 Nasal Cannula 4 12/05/16 12:00 104 23 105/66 (79) 92 Nasal Cannula 4 12/05/16 11:55 97.6 102 20 99/57 (71) 90 Nasal Cannula 4 I/O 12/05/16 12/05/16 12/05/16 12/06/16 12/06/16 12/06/16 07:00 15:00 23:00 07:00 15:00 23:00 Intake Total 1000 ml 600 ml Output Total 625 ml 0 ml 3300 ml 225 ml Balance -625 ml 1000 ml -3300 ml 375 ml Intake Oral 600 ml IV Total 150 ml Other 850 ml Output Urine Total 625 ml 300 ml 225 ml Hemodialysis 3000 ml Estimated Blood Loss 0 ml # Voids 1 1 2 # Bowel Movements 1 Result Diagram: 12/06/16 0712 12/06/16 0712 Imaging Last Impressions Chest X-Ray 12/05/16 0000 Signed Impressions: Service Date/Time: Monday, December 05, 2016 11:54 - CONCLUSION: Persistent is unchanged as are upper lobe without pneumothorax following bronchoscopy.. Orlin Willingham MD FACR Upper Extremity Ultrasound 12/04/16 0000 Signed Impressions: Service Date/Time: November 18:26 - CONCLUSION: Venous mapping as delineated above. The cephalic veins are abnormal bilaterally. Caio Villalpando MD Renal Biopsy CT 12/02/16 1350 Signed Impressions: Service Date/Time: Friday, December 02, 2016 08:33 - CONCLUSION: Uncomplicated CT guided biopsy of the right kidney for function. Mustapha Vela Jr., MD Catheter Placement X-Ray 11/28/16 0000 Signed Impressions: Service Date/Time: Monday, November 28, 2016 15:57 - CONCLUSION: Uncomplicated PermaCath placement as above. Mustapha Vela Jr., MD Chest CT 11/26/16 0000 Signed Impressions: Service Date/Time: Saturday, November 26, 2016 13:54 - CONCLUSION: 1. Dense consolidative right upper lobe pneumonia on a background of severe emphysema with cavitary foci within the consolidated areas. 2. There is patchy right middle and lower lobe pneumonia as well. 3. Bilateral effusions right greater than left. 4. Associated mediastinal adenopathy. Vasu Barrientos MD Renal Ultrasound 11/22/16 0000 Signed Impressions: Service Date/Time: Tuesday, November 22, 2016 17:14 - CONCLUSION: Mild pelvocaliectasis right kidney not present previously. Obdulia Garcia MD Objective Remarks GENERAL: tired appearing, laying in bed SKIN: Warm and dry. Rash on abdomen. HEAD: Normocephalic. EYES: No scleral icterus. No injection or drainage. NECK: Supple, trachea midline. No JVD or lymphadenopathy. CARDIOVASCULAR: Regular rate and tachycardic rhythm without murmurs, gallops, or rubs. RESPIRATORY: Breath sounds equal bilaterally. No accessory muscle use. GASTROINTESTINAL: Abdomen soft, non-tender, nondistended. MUSCULOSKELETAL: No cyanosis, or edema. BACK: Nontender without obvious deformity. No CVA tenderness. A/P Problem List: (1) Chronic kidney disease ICD Code: N18.9 - Chronic kidney disease Status: Acute (2) GI bleed ICD Code: K92.2 - Gastrointestinal hemorrhage, unspecified Status: Acute (3) Pneumonia ICD Code: J18.9 - Pneumonia, unspecified organism Status: Acute (4) Sepsis ICD Code: A41.9 - Sepsis, unspecified organism Status: Acute Discharge Planning 55-year-old man with Sepsis on admission suspect secondary to right multilobular pneumonia-resolved -Completed cefepime 1 g every 12 hours on 12/06/16 ESRD - Per nephrology will need skilled nursing dialysis, AV fistula recommend - Vascular Surgery consulted: plan for L UE AVF Wed after HD - US kidney/renal/bladder ordered and reviewed showing mild pelvocaliectasis right kidney. 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 Coyne, may give 250 cc bolus NS and watch for response. If needed may give an additional bolus, total fluids not to exceed 500cc. Hypokalemia -Management per nephrology Normochromic, normocytic anemia suspect secondary to acute blood loss/ hematochezia -Transfused total of 4 RBCs since admission, and transfuse for HgB<7.0, currently stable -Continue Protonix 40 mg twice a day ; appreciate input from GI -Plan for EGD/Colonoscopy possible next next week when medically stable Chronic obstructive pulmonary disease respiratory failure - Continue scheduled and PRN duonebs. - Supplemental O2 to keep sats >88%. - pulmonary medicine consultation appreciated -S/P bronchoscopy 12/05/16 Skin rash and itching Resolved with Benadryl when necessary Hypoalbuminemia suspect secondary to poor PO intake Severe emancipation - Tumor markers were ordered and reviewed. DVT Prophylaxis: SCDs/TEDs. Attending Attestation D/C pending clearance by neuro and GI, further workup is still underway. Problem Qualifiers (1) GI bleed: (2) Pneumonia: (3) Sepsis: Elva Dawson MD Dec 06, 2016 11:12
--- NOTE | 2016-12-06 11:49 | HHI.GIFU ---
Subjective Remarks Patient is resting in bed still with shortness of breath, feeling weak today, he is still with rectal bleeding on the wipe, but denies any copious amount of blood. Denies abd pain, nausea or vomiting Objective Vitals I&O Vital Signs Date Time Temp Pulse Resp B/P (MAP) Pulse Ox O2 Delivery O2 Flow Rate FiO2 12/06/16 09:35 96 3.00 12/06/16 09:34 Nasal Cannula 3.00 Humidified 12/06/16 08:00 97.6 107 19 93/56 (68) 97 12/06/16 04:00 97.6 100 20 125/87 (100) 100 12/06/16 04:00 Nasal Cannula 3.00 Humidified 12/06/16 00:21 98.4 100 20 95/63 (74) 96 12/06/16 00:00 Nasal Cannula 3.00 Humidified 12/05/16 23:45 102 98/63 (75) 12/05/16 20:58 106 12/05/16 20:00 97.1 106 20 90/57 (68) 99 12/05/16 20:00 Nasal Cannula 3.00 Humidified 12/05/16 17:54 Nasal Cannula 3.00 12/05/16 12:45 97.7 96 22 114/63 (80) 94 Nasal Cannula 4 12/05/16 12:30 97 23 112/63 (79) 94 Nasal Cannula 4 12/05/16 12:15 105 23 95/57 (70) 94 Nasal Cannula 4 12/05/16 12:00 104 23 105/66 (79) 92 Nasal Cannula 4 12/05/16 11:55 97.6 102 20 99/57 (71) 90 Nasal Cannula 4 I/O 12/05/16 12/05/16 12/05/16 12/06/16 12/06/16 12/06/16 07:00 15:00 23:00 07:00 15:00 23:00 Intake Total 1000 ml 600 ml Output Total 625 ml 0 ml 3300 ml 225 ml Balance -625 ml 1000 ml -3300 ml 375 ml Intake Oral 600 ml IV Total 150 ml Other 850 ml Output Urine Total 625 ml 300 ml 225 ml Hemodialysis 3000 ml Estimated Blood Loss 0 ml # Voids 1 1 2 # Bowel Movements 1 Laboratory Laboratory Tests Test 12/06/16 07:12 White Blood Count 8.7 Red Blood Count 2.49 Hemoglobin 7.7 Hematocrit 23.0 Mean Corpuscular Volume 92.5 Mean Corpuscular Hemoglobin 30.7 Mean Corpuscular Hemoglobin Concent 33.2 Red Cell Distribution Width 16.4 Platelet Count 150 Mean Platelet Volume 9.3 Neutrophils (%) (Auto) 62.7 Lymphocytes (%) (Auto) 24.3 Monocytes (%) (Auto) 7.4 Eosinophils (%) (Auto) 4.7 Basophils (%) (Auto) 0.9 Neutrophils # (Auto) 5.5 Lymphocytes # (Auto) 2.1 Monocytes # (Auto) 0.6 Eosinophils # (Auto) 0.4 Basophils # (Auto) 0.1 CBC Comment DIFF FINAL Differential Comment Blood Urea Nitrogen 37 Creatinine 4.82 Random Glucose 82 Calcium Level 7.6 Sodium Level 141 Potassium Level 3.3 Chloride Level 103 Carbon Dioxide Level 29.4 Anion Gap 9 Estimat Glomerular Filtration Rate 13 Date/Time Source Procedure Growth Status 11/22/16 15:20 Blood Peripheral Aerobic Blood Culture - Final NO GROWTH IN 5 DAYS Complete 11/22/16 15:20 Blood Peripheral Anaerobic Blood Culture - Final NO GROWTH IN 5 DAYS Complete 11/22/16 20:30 Stool Stool Cryptosporidium Exam - Final NEGATIVE - NO CRYPTOSPORIDIUM ANTIGEN... Complete 11/22/16 20:30 Stool Stool Stool Pus (MANOLO) - Final FEW WBC'S Complete 11/22/16 20:30 Stool Stool Giardia Antigen (MANOLO) - Final NEGATIVE - NO GIARDIA ANTIGEN DETECTE... Complete 12/05/16 11:41 Bronchial Washings Right Upper Lobe Fungal Smear Pending Received 12/05/16 11:41 Bronchial Washings Right Upper Lobe Fungal Culture Pending Received 11/25/16 12:00 Urine Catheterized Urine Urine Culture - Final NO GROWTH IN 48 HOURS. Complete Imaging Last Impressions Chest X-Ray 12/05/16 0000 Signed Impressions: Service Date/Time: Monday, December 05, 2016 11:54 - CONCLUSION: Persistent is unchanged as are upper lobe without pneumothorax following bronchoscopy.. Orlin Willingham MD FACR Upper Extremity Ultrasound 12/04/16 0000 Signed Impressions: Service Date/Time: November 18:26 - CONCLUSION: Venous mapping as delineated above. The cephalic veins are abnormal bilaterally. Caio Villalpando MD Renal Biopsy CT 12/02/16 1350 Signed Impressions: Service Date/Time: Friday, December 02, 2016 08:33 - CONCLUSION: Uncomplicated CT guided biopsy of the right kidney for function. Mustapha Vela Jr., MD Catheter Placement X-Ray 11/28/16 0000 Signed Impressions: Service Date/Time: Monday, November 28, 2016 15:57 - CONCLUSION: Uncomplicated PermaCath placement as above. Mustapha Vela Jr., MD Chest CT 11/26/16 0000 Signed Impressions: Service Date/Time: Saturday, November 26, 2016 13:54 - CONCLUSION: 1. Dense consolidative right upper lobe pneumonia on a background of severe emphysema with cavitary foci within the consolidated areas. 2. There is patchy right middle and lower lobe pneumonia as well. 3. Bilateral effusions right greater than left. 4. Associated mediastinal adenopathy. Vaus Barrientos MD Renal Ultrasound 11/22/16 0000 Signed Impressions: Service Date/Time: Tuesday, November 22, 2016 17:14 - CONCLUSION: Mild pelvocaliectasis right kidney not present previously. Obdulia Garcia MD Physical Exam HEENT: Normocephalic; atraumatic; no jaundice. CHEST: Diminished throughout, 3L NC SOB to conversation at this time CARDIAC: Regular, tachycardia ABDOMEN: Soft, nondistended, nontender; no hepatosplenomegaly; bowel sounds are present in all four quadrants. EXTREMITIES: No clubbing, cyanosis, or edema. SKIN: Normal; no rash; no jaundice. CONFERENCE INTERPRETER: No focal deficits; alert and oriented times three. Assessment and Plan Plan ASSESSMENT: - Anemia ( hgb of 6 on admission) with rectal bleeding for over a year secondary to hemorrhoids per patient - States copious amounts of blood filling the toilet monthly for a week duration at a time. S/P 4 units of PRBC. HH stable Would benefit from EGD/Colonoscopy when medically cleared - Hemorrhoids. hydrocortisone suppositories - Diarrhea. CDiff negative. No enteric pathogens, negative for cryptosporidium , negative for giardia. Few wbc. probiotics, doesn't want Imodium - ARF Renal following, HD - Resp. Insufficiency with multilobular PNA/severe emphysema, per pulmonary S/P Bronchoscopy (12/05/16) - Leukocytosis- trending down, afebrile, , ESR > 140, blood cx no growth 2d - Weight loss- 10-15 ibs in the last 3 weeks due to poor appetite and Po intake - Hypokalemia- Secondary to above, replaced by attending - Hx of CABG, COPD per attending Plan: - Heart healthy diet - Cont. PPI - Monitor hh - Transfuse as needed - EGD/Colonoscopy TBD, after medically cleared for endoscopy - await results of bronchoscopy - Pt is willing to have EGD/colonoscopy when appropriate. Bonifacio Ibanez Dec 06, 2016 11:49
--- NOTE | 2016-12-06 11:53 | HHI.NPPN ---
Subjective General Problems: Anemia Renal Failure: Acute Additional Remarks Patient is alert, feeling better, no nausea, no SOB. Review of Systems General Constitutional: Fatigue Objective Data Data Vital Signs Date Time Temp Pulse Resp B/P (MAP) Pulse Ox O2 Delivery O2 Flow Rate FiO2 12/06/16 09:35 96 3.00 12/06/16 09:34 Nasal Cannula 3.00 Humidified 12/06/16 08:00 97.6 107 19 93/56 (68) 97 12/06/16 04:00 97.6 100 20 125/87 (100) 100 12/06/16 04:00 Nasal Cannula 3.00 Humidified 12/06/16 00:21 98.4 100 20 95/63 (74) 96 12/06/16 00:00 Nasal Cannula 3.00 Humidified 12/05/16 23:45 102 98/63 (75) 12/05/16 20:58 106 12/05/16 20:00 97.1 106 20 90/57 (68) 99 12/05/16 20:00 Nasal Cannula 3.00 Humidified 12/05/16 17:54 Nasal Cannula 3.00 12/05/16 12:45 97.7 96 22 114/63 (80) 94 Nasal Cannula 4 12/05/16 12:30 97 23 112/63 (79) 94 Nasal Cannula 4 12/05/16 12:15 105 23 95/57 (70) 94 Nasal Cannula 4 12/05/16 12:00 104 23 105/66 (79) 92 Nasal Cannula 4 12/05/16 11:55 97.6 102 20 99/57 (71) 90 Nasal Cannula 4 -: 12/06/16 0712 12/06/16 0712 Tubes & Lines: Perma-Cath, Bergman Physical Exam General Appearance: Well Developed, Well Nourished, No Acute Distress, Comfortable Eyes Eye Exam: Pupils Equal, Pupils Reactive Throat Throat Exam: Oral Mucosa [place] & Moist Neck Neck Exam: Neck Supple Pulmonary Resp Exam: Clear Bilaterally, Breath Sounds Equal, Decreased Bases Cardiology CV Exam: Regular, Normal Sinus Rhythm, Good Perfusion Gastrointestinal/Abdomen GI Exam: Soft, Non-Tender, Bowel Sounds Present Musculoskeletal MS Exam: Joints Intact, Normal Tone, Good Strength Integumentary Skin Exam: Clear, Warm, Dry, Intact Extremeties Extremities Exam: No Edema, Pedal Pulses Palpable Neurologic Neuro Exam: Alert, Awake, Oriented, Speech Clear Psychiatric Psych Exam: Appropriate Responses Assessment/Plan Discussed Condition With: Patient Assessment Summary: SEJAL/Acute Renal Failure, Anemia of CKD Electrolyte Assessment: Hypocalcemia, Hypokalemia, Metabolic Acidosis Problem List: (1) Acute renal failure ICD Codes: N17.9 - Acute kidney failure, unspecified Status: Acute Plan: Baseline creatinine of 2.0 from July of 2013. SEJAL was thought to be due to intravascular volume depletion, but may have progressed to ATN serum electrophoresis is in process he is non oliguric with a bergman off IVF renal function improving slowly he has hyperphosphatemia, continue Renvela at 1600 mg with meals and monitor response hypokalemic he has glucosuria without hyperglycemia or history of diabetes; this may indicate a proximal renal tubule disorder (Fanconi's syndrome?). On HD now, renal Biopsy noted. (2) Acidosis ICD Codes: E87.2 - Acidosis Status: Acute Plan: consistent with GI losses from diarrhea as well as renal failure. improving, monitor (3) Hypokalemia ICD Codes: E87.6 - Hypokalemia Status: Acute Plan: imrpoved slighlty he may have a proximal tubule disorder ordered IV and PO replacement follow labs 24 hour urine for potassium and protein has been ordered (4) GI bleed ICD Codes: K92.2 - Gastrointestinal hemorrhage, unspecified Status: Acute Plan: Hb improved GI following, needs EGD/colonoscopy this admission on protonix gtt (5) Sepsis ICD Codes: A41.9 - Sepsis, unspecified organism Status: Acute Plan: febrile with leukocytosis, Apparent pneumonia per chest x-ray CT chest ordered questionable UTI. Urine culture is in process On Cefepime, follow clinically (6) Hypocalcemia ICD Codes: E83.51 - Hypocalcemia Plan: with a vitamin D deficiency, worsened by hyperphosphatemia replacement ordered monitor Problem Qualifiers (1) Acute renal failure: (2) GI bleed: (3) Sepsis: Ely Coyne MD Dec 06, 2016 11:53
[2016-12-06] MEDS ORDERED: SODIUM CHLOR 0.9% 250 ML INJ 250 ML IV ONE (12:30)
--- NOTE | 2016-12-06 20:06 | HHI.PR ---
Subjective Remarks States that he is breathing better.No fever.. went for a kidney biopsy and Path pending CXR: improved Right Pneumonia.O2 at 2 L Objective Vital Signs Date Time Temp Pulse Resp B/P (MAP) Pulse Ox O2 Delivery O2 Flow Rate FiO2 12/06/16 16:00 98.0 98 19 111/74 (86) 97 12/06/16 12:00 98.4 107 19 109/65 (80) 96 12/06/16 09:35 96 3.00 12/06/16 09:34 Nasal Cannula 3.00 Humidified 12/06/16 08:10 105 12/06/16 08:00 97.6 107 19 93/56 (68) 97 12/06/16 04:00 97.6 100 20 125/87 (100) 100 12/06/16 04:00 Nasal Cannula 3.00 Humidified 12/06/16 00:21 98.4 100 20 95/63 (74) 96 12/06/16 00:00 Nasal Cannula 3.00 Humidified 12/05/16 23:45 102 98/63 (75) 12/05/16 20:58 106 I/O 12/05/16 12/05/16 12/05/16 12/06/16 12/06/16 12/06/16 07:00 15:00 23:00 07:00 15:00 23:00 Intake Total 1000 ml 600 ml 480 ml Output Total 625 ml 0 ml 3300 ml 225 ml Balance -625 ml 1000 ml -3300 ml 375 ml 480 ml Intake Oral 600 ml 480 ml IV Total 150 ml Other 850 ml Output Urine Total 625 ml 300 ml 225 ml Hemodialysis 3000 ml Estimated Blood Loss 0 ml # Voids 1 1 2 3 # Bowel Movements 1 1 Result Diagram: 12/06/1612 12/06/16 0712 Objective Remarks GENERAL: This is a middle-aged averagely built white male who is alert and in no acute distress. HEAD, EYES, EARS, NOSE, THROAT: Head normocephalic. The pupils are reactive. Tongue is moist. Throat is clear. Nasal mucosa is clear. NECK: The neck is supple. No bruits. No thyroid enlargement. No lymphadenopathy. CHEST: Equal movements. There are scattered coarse wheezes in the upper lung june with Occ crackles , Right chest. HEART: Heart sounds are regular. S1 and S2. No murmur. ABDOMEN: Abdomen is soft and protuberant. No masses or tenderness. EXTREMITIES: Varicosities.No edema. No calf tenderness. NEUROLOGIC: Reflexes are normal. No focal deficits. SKIN: Dry and cool. Assessment and Plan Assessment and Plan IMPRESSION: 1. Extensive right lung pneumonia with hypoxemia. 2. Chronic kidney disease with acute renal failure. 3. COPD with emphysema and chronic bronchitis. 4. History of coronary artery bypass grafting. Plan : 1. IS q3h at bedside 2. O2 at 2L.and wean 3. CXR on Thursday 4. BMP,CBC in am. 5. Solumedrol 20 mg bid and taper 6. Dialysis as planned. Alison Wilson MD Dec 06, 2016 20:06
[2016-12-06] MEDS: methylPREDNISolone SOD SUCC 40 MG/1 ML VIAL IV SCH (21:17)
[2016-12-06] MEDS: SODIUM CHLORIDE 0.9% FLUSH 10 ML FLUSH IV FLUSH PRN (21:18)
[2016-12-07] VITALS (10 sets, daily range): BP systolic 123–131; BP diastolic 73–86; PULSE 92–104; RESP 16–20; TEMP 97.6–98.5; O2SAT 85–96
[2016-12-07] MEDS: SEVELAMER CARBONATE 800 MG TAB PO SCH ×3 (08:33→17:18)
[2016-12-07] MEDS: CHOLECALCIFEROL (VIT D3) 1000 UNIT TAB PO SCH (08:33)
[2016-12-07] MEDS: PANTOPRAZOLE SOD 40 MG DELAYED RELEASE TAB PO SCH ×2 (08:34→21:41)
[2016-12-07] MEDS: LACTOBACILLUS ACIDOPHILUS TAB PO SCH ×2 (08:34→21:41)
[2016-12-07] MEDS: POTASSIUM CHLORIDE 20 MEQ CONTROLLED RELEASE TAB PO SCH (08:34)
[2016-12-07] MEDS: CALCITRIOL 0.25 MCG CAP PO SCH (08:34)
[2016-12-07] MEDS: methylPREDNISolone SOD SUCC 40 MG/1 ML VIAL IV SCH ×2 (08:35→21:41)
[2016-12-07] MEDS: HYDROCORTISONE ACETATE 25 MG SUPP RECTAL SCH (08:35)
[2016-12-07 10:08] LABS: BICARBONATE 25.2 MEQ/L (21.0-32.0); POTASSIUM 3.8 MEQ/L (3.5-5.1)
--- NOTE | 2016-12-07 12:25 | MP ---
cc: MAE WILSON DATE OF SURGERY: 12/05/2016 OPERATION: Fiberoptic bronchoscopy with brushings, washings and lavage. PREOPERATIVE DIAGNOSIS: Persistent right lung infiltrate. POSTOPERATIVE DIAGNOSIS: Persistent right lung infiltrate. ANESTHESIA: General with intubation. SURGEON: Dr. Raquel Wilson. PROCEDURE AND FINDINGS: The patient was intubated under general anesthesia following which the Olympus IT-180 bronchoscope was used to visualize the bronchi. The scope was advanced via the endotracheal tube into the trachea. The trachea and alec were normal. The scope was then advanced to the right main stem and right upper lobe segmental bronchi. These bronchi demonstrated few moderate endobronchitis, mucosal edema and mucosal ridging with slight narrowing of the bronchus. Thick secretions were noted which was suctioned out. Saline washings were done. Brushings were done for micro and cytology. The scope was also advanced into the right middle lobe segmental bronchi. This demonstrated mild endobronchitis with mucoid secretions but no endobronchial lesions were seen. Saline washings were done. Next the right lower lobe segmental bronchi were visualized which demonstrated mild endobronchitis with mucosal edema and mucoid secretions. These were suctioned out. No endobronchial lesions were seen. Saline washings were done. Next the scope was advanced into the left mainstem and left upper lobe segmental bronchi. These bronchi demonstrated mild endobronchitis with mucoid secretions. These were suctioned out. No endobronchial lesions seen. Next the left lower lobe segmental bronchi were visualized. These bronchi demonstrated mucoid secretions with no endobronchial lesions. Saline washings were done and the procedure was then terminated. The patient tolerated the procedure well. MD MARJORIE Estrada/RUFINO /11:48 AM /12:15 PM
--- NOTE | 2016-12-07 12:33 | HHI.PR ---
Subjective Remarks Patient seen and examined this morning. His vitals are stable he's afebrile. Continues to be tachycardic. BP stable. Saturating well on 1 L. States he doesn't need oxygen. Denies any blood in stool, but repors at home was having large amount of blood in stool. Is upset about the renal diet he is being served and not getting condiments with his food. Objective Vital Signs Date Time Temp Pulse Resp B/P (MAP) Pulse Ox O2 Delivery O2 Flow Rate FiO2 12/07/16 08:06 98.0 92 18 128/79 (95) 93 12/07/16 08:00 93 Room Air 12/07/16 07:58 92 12/07/16 07:34 93 Nasal Cannula 1.00 12/07/16 04:00 98.2 97 16 128/86 (100) 96 12/07/16 00:00 Nasal Cannula 1.00 12/07/16 00:00 97.6 104 16 131/73 (92) 92 12/06/16 20:01 101 12/06/16 20:00 Nasal Cannula 2.00 12/06/16 20:00 98.4 99 18 107/74 (85) 97 12/06/16 16:00 98.0 98 19 111/74 (86) 97 I/O 12/06/16 12/06/16 12/06/16 12/07/16 12/07/16 12/07/16 07:00 15:00 23:00 07:00 15:00 23:00 Intake Total 600 ml 480 ml 480 ml Output Total 225 ml 600 ml 325 ml Balance 375 ml 480 ml -120 ml -325 ml Intake Oral 600 ml 480 ml 480 ml Output Urine Total 225 ml 600 ml 325 ml # Voids 2 3 # Bowel Movements 1 1 0 Result Diagram: 12/06/16 0712 12/07/16 0820 Imaging Last Impressions Chest X-Ray 12/05/16 0000 Signed Impressions: Service Date/Time: Monday, December 05, 2016 11:54 - CONCLUSION: Persistent is unchanged as are upper lobe without pneumothorax following bronchoscopy.. Orlin Willingham MD FACR Upper Extremity Ultrasound 12/04/16 0000 Signed Impressions: Service Date/Time: November 18:26 - CONCLUSION: Venous mapping as delineated above. The cephalic veins are abnormal bilaterally. Caio Villalpando MD Renal Biopsy CT 12/02/16 1350 Signed Impressions: Service Date/Time: Friday, December 02, 2016 08:33 - CONCLUSION: Uncomplicated CT guided biopsy of the right kidney for function. Mustapha Vela Jr., MD Catheter Placement X-Ray 11/28/16 0000 Signed Impressions: Service Date/Time: Monday, November 28, 2016 15:57 - CONCLUSION: Uncomplicated PermaCath placement as above. Mustapha Vela Jr., MD Chest CT 11/26/16 0000 Signed Impressions: Service Date/Time: Saturday, November 26, 2016 13:54 - CONCLUSION: 1. Dense consolidative right upper lobe pneumonia on a background of severe emphysema with cavitary foci within the consolidated areas. 2. There is patchy right middle and lower lobe pneumonia as well. 3. Bilateral effusions right greater than left. 4. Associated mediastinal adenopathy. Vasu Barrientos MD Renal Ultrasound 11/22/16 0000 Signed Impressions: Service Date/Time: Tuesday, November 22, 2016 17:14 - CONCLUSION: Mild pelvocaliectasis right kidney not present previously. Obdulia Garcia MD Objective Remarks GENERAL:well appearing, sitting up in bed, nad SKIN: Warm and dry. Rash on abdomen. HEAD: Normocephalic. EYES: No scleral icterus. No injection or drainage. NECK: Supple, trachea midline. No JVD or lymphadenopathy. CARDIOVASCULAR: Regular rate and tachycardic rhythm without murmurs, gallops, or rubs. RESPIRATORY: Breath sounds equal bilaterally. No accessory muscle use. GASTROINTESTINAL: Abdomen soft, non-tender, nondistended. MUSCULOSKELETAL: No cyanosis, or edema. BACK: Nontender without obvious deformity. No CVA tenderness. A/P Problem List: (1) Chronic kidney disease ICD Code: N18.9 - Chronic kidney disease Status: Acute (2) GI bleed ICD Code: K92.2 - Gastrointestinal hemorrhage, unspecified Status: Acute (3) Pneumonia ICD Code: J18.9 - Pneumonia, unspecified organism Status: Acute (4) Sepsis ICD Code: A41.9 - Sepsis, unspecified organism Status: Acute Discharge Planning 55-year-old man with Sepsis on admission suspect secondary to right multilobular pneumonia-resolved -Completed cefepime 1 g every 12 hours on 12/06/16 ESRD - Per nephrology will need ferry terminal supervisor dialysis, AV fistula recommend - Vascular Surgery consulted: plan for L UE AVF Wed after HD - US kidney/renal/bladder ordered and reviewed showing mild pelvocaliectasis right kidney. 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 - Supplemental O2 to keep sats >88%. - pulmonary medicine following: CXR on thursday, solumedrol 40 mg BID -S/P bronchoscopy 12/05/16, biopsy pending Hypoalbuminemia suspect secondary to poor PO intake Severe emancipation - Tumor markers were ordered and reviewed. DVT Prophylaxis: SCDs/TEDs. Problem Qualifiers (1) GI bleed: (2) Pneumonia: (3) Sepsis: Elva Dawson MD Dec 07, 2016 12:33
--- NOTE | 2016-12-07 12:46 | HHI.NPPN ---
Subjective General Problems: Anemia Renal Failure: Acute Additional Remarks Patient is alert, no SOB, eating better. Review of Systems General Constitutional: Fatigue Objective Data Data 12/07/16 12/08/16 19:00 07:00 Output Total 325 ml Balance -325 ml Output Urine Total 325 ml Vital Signs Date Time Temp Pulse Resp B/P (MAP) Pulse Ox O2 Delivery O2 Flow Rate FiO2 12/07/16 12:29 98.4 99 20 123/80 (94) 85 12/07/16 08:06 98.0 92 18 128/79 (95) 93 12/07/16 08:00 93 Room Air 12/07/16 07:58 92 12/07/16 07:34 93 Nasal Cannula 1.00 12/07/16 04:00 98.2 97 16 128/86 (100) 96 12/07/16 00:00 Nasal Cannula 1.00 12/07/16 00:00 97.6 104 16 131/73 (92) 92 12/06/16 20:01 101 12/06/16 20:00 Nasal Cannula 2.00 12/06/16 20:00 98.4 99 18 107/74 (85) 97 12/06/16 16:00 98.0 98 19 111/74 (86) 97 -: 12/06/16 0712 12/07/16 0820 Tubes & Lines: Perma-Cath, Bergman Physical Exam General Appearance: Well Developed, Well Nourished, No Acute Distress, Comfortable Eyes Eye Exam: Pupils Equal, Pupils Reactive Throat Throat Exam: Oral Mucosa [place] & Moist Neck Neck Exam: Neck Supple Pulmonary Resp Exam: Clear Bilaterally, Breath Sounds Equal, Decreased Bases Cardiology CV Exam: Regular, Normal Sinus Rhythm, Good Perfusion Gastrointestinal/Abdomen GI Exam: Soft, Non-Tender, Bowel Sounds Present Musculoskeletal MS Exam: Joints Intact, Normal Tone, Good Strength Integumentary Skin Exam: Clear, Warm, Dry, Intact Extremeties Extremities Exam: No Edema, Pedal Pulses Palpable Neurologic Neuro Exam: Alert, Awake, Oriented, Speech Clear Psychiatric Psych Exam: Appropriate Responses Assessment/Plan Discussed Condition With: Patient Assessment Summary: SEJAL/Acute Renal Failure, Anemia of CKD Electrolyte Assessment: Hypocalcemia, Hypokalemia, Metabolic Acidosis Problem List: (1) Acute renal failure ICD Codes: N17.9 - Acute kidney failure, unspecified Status: Acute Plan: Baseline creatinine of 2.0 from July of 2013. SEJAL was thought to be due to intravascular volume depletion, but may have progressed to ATN serum electrophoresis is in process he is non oliguric with a bergman off IVF renal function improving slowly he has hyperphosphatemia, continue Renvela at 1600 mg with meals and monitor response hypokalemic he has glucosuria without hyperglycemia or history of diabetes; this may indicate a proximal renal tubule disorder (Fanconi's syndrome?). renal Biopsy noted, HD was done yesterday. (2) Acidosis ICD Codes: E87.2 - Acidosis Status: Acute Plan: consistent with GI losses from diarrhea as well as renal failure. improving, monitor (3) Hypokalemia ICD Codes: E87.6 - Hypokalemia Status: Acute Plan: imrpoved slighlty he may have a proximal tubule disorder ordered IV and PO replacement follow labs 24 hour urine for potassium and protein has been ordered (4) GI bleed ICD Codes: K92.2 - Gastrointestinal hemorrhage, unspecified Status: Acute Plan: Hb improved GI following, needs EGD/colonoscopy this admission on protonix gtt (5) Sepsis ICD Codes: A41.9 - Sepsis, unspecified organism Status: Acute Plan: febrile with leukocytosis, Apparent pneumonia per chest x-ray CT chest ordered questionable UTI. Urine culture is in process On Cefepime, follow clinically (6) Hypocalcemia ICD Codes: E83.51 - Hypocalcemia Plan: with a vitamin D deficiency, worsened by hyperphosphatemia replacement ordered monitor Problem Qualifiers (1) Acute renal failure: (2) GI bleed: (3) Sepsis: Ely Coyne MD Dec 07, 2016 12:46
--- NOTE | 2016-12-07 13:45 | HHI.GIFU ---
Subjective Remarks Resting in bed. Reports his breathing is improving. Denies shortness of breath. He states he does not feel like he needs oxygen supplementation, but when he is on room air his O2 sats are at 89%. Currently he is on 2L O2 with O2 sats at 91- 92%. Reports he continues to have rectal bleeding on wipe, which he last noted yesterday. Has not had BM today. Denies abdominal pain. No N/V. Tolerating diet. Objective Vitals I&O Vital Signs Date Time Temp Pulse Resp B/P (MAP) Pulse Ox O2 Delivery O2 Flow Rate FiO2 12/07/16 12:53 92 Nasal Cannula 1.00 12/07/16 12:29 98.4 99 20 123/80 (94) 85 12/07/16 08:06 98.0 92 18 128/79 (95) 93 12/07/16 08:00 93 Room Air 12/07/16 07:58 92 12/07/16 07:34 93 Nasal Cannula 1.00 12/07/16 04:00 98.2 97 16 128/86 (100) 96 12/07/16 00:00 Nasal Cannula 1.00 12/07/16 00:00 97.6 104 16 131/73 (92) 92 12/06/16 20:01 101 12/06/16 20:00 Nasal Cannula 2.00 12/06/16 20:00 98.4 99 18 107/74 (85) 97 12/06/16 16:00 98.0 98 19 111/74 (86) 97 I/O 12/06/16 12/06/16 12/06/16 12/07/16 12/07/16 12/07/16 07:00 15:00 23:00 07:00 15:00 23:00 Intake Total 600 ml 480 ml 480 ml Output Total 225 ml 600 ml 325 ml Balance 375 ml 480 ml -120 ml -325 ml Intake Oral 600 ml 480 ml 480 ml Output Urine Total 225 ml 600 ml 325 ml # Voids 2 3 # Bowel Movements 1 1 0 Laboratory Laboratory Tests Test 12/07/16 08:20 Blood Urea Nitrogen 51 Creatinine 6.57 Random Glucose 93 Calcium Level 7.9 Sodium Level 140 Potassium Level 3.8 Chloride Level 104 Carbon Dioxide Level 25.2 Anion Gap 11 Estimat Glomerular Filtration Rate 9 Date/Time Source Procedure Growth Status 11/22/16 15:20 Blood Peripheral Aerobic Blood Culture - Final NO GROWTH IN 5 DAYS Complete 11/22/16 15:20 Blood Peripheral Anaerobic Blood Culture - Final NO GROWTH IN 5 DAYS Complete 11/22/16 20:30 Stool Stool Cryptosporidium Exam - Final NEGATIVE - NO CRYPTOSPORIDIUM ANTIGEN... Complete 11/22/16 20:30 Stool Stool Stool Pus (MANOLO) - Final FEW WBC'S Complete 11/22/16 20:30 Stool Stool Giardia Antigen (MANOLO) - Final NEGATIVE - NO GIARDIA ANTIGEN DETECTE... Complete 12/05/16 11:41 Bronchial Washings Right Upper Lobe Fungal Smear Pending Received 12/05/16 11:41 Bronchial Washings Right Upper Lobe Fungal Culture Pending Received 11/25/16 12:00 Urine Catheterized Urine Urine Culture - Final NO GROWTH IN 48 HOURS. Complete Imaging Last Impressions Chest X-Ray 12/05/16 0000 Signed Impressions: Service Date/Time: Monday, December 05, 2016 11:54 - CONCLUSION: Persistent is unchanged as are upper lobe without pneumothorax following bronchoscopy.. Orlin Willingham MD FACR Upper Extremity Ultrasound 12/04/16 0000 Signed Impressions: Service Date/Time: November 18:26 - CONCLUSION: Venous mapping as delineated above. The cephalic veins are abnormal bilaterally. Caio Villalpando MD Renal Biopsy CT 12/02/16 1350 Signed Impressions: Service Date/Time: Friday, December 02, 2016 08:33 - CONCLUSION: Uncomplicated CT guided biopsy of the right kidney for function. Mustapha Vela Jr., MD Catheter Placement X-Ray 11/28/16 0000 Signed Impressions: Service Date/Time: Monday, November 28, 2016 15:57 - CONCLUSION: Uncomplicated PermaCath placement as above. Mustapha Vela Jr., MD Chest CT 11/26/16 0000 Signed Impressions: Service Date/Time: Saturday, November 26, 2016 13:54 - CONCLUSION: 1. Dense consolidative right upper lobe pneumonia on a background of severe emphysema with cavitary foci within the consolidated areas. 2. There is patchy right middle and lower lobe pneumonia as well. 3. Bilateral effusions right greater than left. 4. Associated mediastinal adenopathy. Vasu Barrientos MD Renal Ultrasound 11/22/16 0000 Signed Impressions: Service Date/Time: Tuesday, November 22, 2016 17:14 - CONCLUSION: Mild pelvocaliectasis right kidney not present previously. Obdulia Garcia MD Physical Exam HEENT: Normocephalic; atraumatic; no jaundice. CHEST: Diminished throughout, 1L NC. CARDIAC: Regular, tachycardic rhythm ABDOMEN: Soft, nondistended, nontender; no hepatosplenomegaly; bowel sounds are present in all four quadrants. EXTREMITIES: No clubbing, cyanosis, or edema. SKIN: Normal; no rash; no jaundice. CAFE ASSOCIATE: No focal deficits; alert and oriented x 3 Assessment and Plan Plan ASSESSMENT: - Anemia ( hgb of 6 on admission) with rectal bleeding for over a year secondary to hemorrhoids per patient - States copious amounts of blood filling the toilet monthly for a week duration at a time. S/P 4 units of PRBC. HH stable Would benefit from EGD/Colonoscopy when medically cleared - Hemorrhoids. hydrocortisone suppositories - Diarrhea. CDiff negative. No enteric pathogens, negative for cryptosporidium , negative for giardia. Few wbc. probiotics, doesn't want Imodium - ARF Renal following, HD - Resp. Insufficiency with multilobular PNA/severe emphysema, per pulmonary S/P Bronchoscopy (12/05/16) - Leukocytosis- trending down, afebrile, , ESR > 140, blood cx no growth 2d - Weight loss- 10-15 ibs in the last 3 weeks due to poor appetite and Po intake - Hypokalemia- Secondary to above, replaced by attending - Hx of CABG, COPD per attending 12/07/16--HH 7.7 (12/06). Patient reports he did note blood on wipe with BM yesterday. He has not had BM today. Tolerating diet. Breathing appears to be improving. Has CXR scheduled for Thursday. PLAN: - Heart healthy diet - Cont. PPI - Monitor HH, transfuse as necessary - EGD/Colonoscopy TBD, after medically cleared for endoscopy - Await results of bronchoscopy - Patient is willing to have EGD/colonoscopy when appropriate - Supportive care - Further recommendations to follow based on results of above Patient seen and examined by Dr. Craft and myself and this note is written on his behalf. Tamia Castellanos Dec 07, 2016 13:45
--- NOTE | 2016-12-07 15:18 | HHI.PR ---
Subjective Remarks States that he is breathing better.No fever. Less cough and no fever. went for a kidney biopsy and Path pending CXR is better..O2 at 2 L Objective Vital Signs Date Time Temp Pulse Resp B/P (MAP) Pulse Ox O2 Delivery O2 Flow Rate FiO2 12/07/16 12:53 92 Nasal Cannula 1.00 12/07/16 12:29 98.4 99 20 123/80 (94) 85 12/07/16 08:06 98.0 92 18 128/79 (95) 93 12/07/16 08:00 93 Room Air 12/07/16 07:58 92 12/07/16 07:34 93 Nasal Cannula 1.00 12/07/16 04:00 98.2 97 16 128/86 (100) 96 12/07/16 00:00 Nasal Cannula 1.00 12/07/16 00:00 97.6 104 16 131/73 (92) 92 12/06/16 20:01 101 12/06/16 20:00 Nasal Cannula 2.00 12/06/16 20:00 98.4 99 18 107/74 (85) 97 12/06/16 16:00 98.0 98 19 111/74 (86) 97 I/O 12/06/16 12/06/16 12/06/16 12/07/16 12/07/16 12/07/16 07:00 15:00 23:00 07:00 15:00 23:00 Intake Total 600 ml 480 ml 480 ml Output Total 225 ml 600 ml 700 ml Balance 375 ml 480 ml -120 ml -700 ml Intake Oral 600 ml 480 ml 480 ml Output Urine Total 225 ml 600 ml 700 ml # Voids 2 3 # Bowel Movements 1 1 0 Result Diagram: 12/06/16 0712 12/07/16 0820 Objective Remarks GENERAL: This is a middle-aged averagely built white male who is alert and in no acute distress. HEAD, EYES, EARS, NOSE, THROAT: Head normocephalic. The pupils are reactive. Tongue is moist. Throat is clear. Nasal mucosa is clear. NECK: The neck is supple. No bruits. No thyroid enlargement. No lymphadenopathy. CHEST: Equal movements. There are Occ crackles in the Right chest. HEART: Heart sounds are regular. S1 and S2. No murmur. ABDOMEN: Abdomen is soft and protuberant. No masses or tenderness. EXTREMITIES: Varicosities.No edema. No calf tenderness. NEUROLOGIC: Reflexes are normal. No focal deficits. SKIN: Dry and cool. Assessment and Plan Assessment and Plan IMPRESSION: 1. Extensive right lung pneumonia with hypoxemia. 2. Chronic kidney disease with acute renal failure. 3. COPD with emphysema and chronic bronchitis. 4. History of coronary artery bypass grafting. Plan : 1. IS q3h at bedside 2. O2 at 2L.and wean to RA 3. CXR on Thursday 4. BMP,CBC in am. 5. Solumedrol 20 mg bid X 2 days 6. Dialysis as planned. Alison Wilsno MD Dec 07, 2016 15:18
[2016-12-07] MEDS: SODIUM CHLORIDE 0.9% FLUSH 10 ML FLUSH IV FLUSH PRN (21:42)
[2016-12-08] VITALS (8 sets, daily range): BP systolic 119–141; BP diastolic 72–90; PULSE 91–114; RESP 18–20; TEMP 97.6–98.4; O2SAT 90–96
[2016-12-08] MEDS: HYDROCORTISONE ACETATE 25 MG SUPP RECTAL SCH (09:00)
[2016-12-08] MEDS: SEVELAMER CARBONATE 800 MG TAB PO SCH ×3 (09:05→21:19)
[2016-12-08 09:37] LABS: BASOPHIL # 0.1 TH/MM3 (0-0.2); BASOPHIL % 0.6 % (0.0-2.0); EOSINOPHIL # 0.1 TH/MM3 (0-0.4); EOSINOPHIL % 0.5 % (0.0-4.0); HEMATOCRIT 23.9 % (39.0-51.0); HEMO FLAGS DIFF FINAL; LYMPH % 23.2 % (9.0-44.0); LYMPHOCYTE # 2.6 TH/MM3 (1.0-4.8); MEAN CELL VOLUME 93.2 FL (80.0-100.0); MEAN CORPUSCULAR HEMOGLOBIN 30.3 PG (27.0-34.0); MEAN CORPUSCULAR HGB CONC 32.6 % (32.0-36.0); NEUT % 70.7 % (16.0-70.0); PLATELET COUNT 175 TH/MM3 (150-450); RED BLOOD COUNT 2.56 MIL/MM3 (4.50-5.90); RED CELL DISTRIBUTION WIDTH 16.2 % (11.6-17.2); WHITE BLOOD COUNT 11.3 TH/MM3 (4.0-11.0)
--- NOTE | 2016-12-08 09:38 | HHI.PR ---
Subjective Remarks Patient seen and examined this morning. His vitals are stable he's afebrile. Continues to be tachycardic. BP stable. Saturating well on 1 L. States breathing is fine. Dialysis this afternoon. BM yesterday and today, denies bright red blood but unable to tell if dark stools. Objective Vital Signs Date Time Temp Pulse Resp B/P (MAP) Pulse Ox O2 Delivery O2 Flow Rate FiO2 12/08/16 08:00 97.7 100 18 139/90 (106) 90 12/08/16 04:00 98.1 91 18 141/89 (106) 93 12/08/16 04:00 Nasal Cannula 1.00 12/08/16 00:00 98.2 103 20 136/90 (105) 92 12/08/16 00:00 98.2 103 20 136/90 (105) 92 12/07/16 23:59 Nasal Cannula 1.00 Humidified 12/07/16 20:04 Nasal Cannula 1.00 12/07/16 20:01 99 12/07/16 20:00 98.2 96 20 131/76 (94) 92 12/07/16 20:00 98.2 96 20 131/76 (94) 92 12/07/16 17:54 92 Nasal Cannula 1.00 12/07/16 16:34 98.5 95 18 123/80 (94) 95 12/07/16 12:53 92 Nasal Cannula 1.00 12/07/16 12:29 98.4 99 20 123/80 (94) 85 I/O 12/07/16 12/07/16 12/07/16 12/08/16 12/08/16 12/08/16 07:00 15:00 23:00 07:00 15:00 23:00 Intake Total 480 ml 800 ml 240 ml Output Total 600 ml 700 ml 500 ml Balance -120 ml -700 ml 300 ml 240 ml Intake Oral 480 ml 800 ml 240 ml Output Urine Total 600 ml 700 ml 500 ml # Voids 2 # Bowel Movements 0 0 2 Result Diagram: 12/06/16 0712 12/07/16 0820 Imaging Last Impressions Chest X-Ray 12/05/16 0000 Signed Impressions: Service Date/Time: Monday, December 05, 2016 11:54 - CONCLUSION: Persistent is unchanged as are upper lobe without pneumothorax following bronchoscopy.. Orlin Willingham MD FACR Upper Extremity Ultrasound 12/04/16 0000 Signed Impressions: Service Date/Time: November 18:26 - CONCLUSION: Venous mapping as delineated above. The cephalic veins are abnormal bilaterally. Caio Villalpando MD Renal Biopsy CT 12/02/16 1350 Signed Impressions: Service Date/Time: Friday, December 02, 2016 08:33 - CONCLUSION: Uncomplicated CT guided biopsy of the right kidney for function. Mustapha Vela Jr., MD Catheter Placement X-Ray 11/28/16 0000 Signed Impressions: Service Date/Time: Monday, November 28, 2016 15:57 - CONCLUSION: Uncomplicated PermaCath placement as above. Mustapha Vela Jr., MD Chest CT 11/26/16 0000 Signed Impressions: Service Date/Time: Saturday, November 26, 2016 13:54 - CONCLUSION: 1. Dense consolidative right upper lobe pneumonia on a background of severe emphysema with cavitary foci within the consolidated areas. 2. There is patchy right middle and lower lobe pneumonia as well. 3. Bilateral effusions right greater than left. 4. Associated mediastinal adenopathy. Vasu Barrientos MD Renal Ultrasound 11/22/16 0000 Signed Impressions: Service Date/Time: Tuesday, November 22, 2016 17:14 - CONCLUSION: Mild pelvocaliectasis right kidney not present previously. Obdulia Garcia MD Objective Remarks GENERAL:well appearing, sitting up in bed, nad SKIN: Warm and dry. Rash on abdomen. HEAD: Normocephalic. EYES: No scleral icterus. No injection or drainage. NECK: Supple, trachea midline. No JVD or lymphadenopathy. CARDIOVASCULAR: Regular rate and tachycardic rhythm without murmurs, gallops, or rubs. RESPIRATORY: Breath sounds equal bilaterally. No accessory muscle use. GASTROINTESTINAL: Abdomen soft, non-tender, nondistended. MUSCULOSKELETAL: No cyanosis, or edema. BACK: Nontender without obvious deformity. No CVA tenderness. A/P Problem List: (1) Chronic kidney disease ICD Code: N18.9 - Chronic kidney disease Status: Acute (2) GI bleed ICD Code: K92.2 - Gastrointestinal hemorrhage, unspecified Status: Acute (3) Pneumonia ICD Code: J18.9 - Pneumonia, unspecified organism Status: Acute (4) Sepsis ICD Code: A41.9 - Sepsis, unspecified organism Status: Acute Assessment and Plan 55-year-old man with Sepsis on admission suspect secondary to right multilobular pneumonia-resolved -Completed cefepime 1 g every 12 hours on 12/06/16 ESRD - Per nephrology will need usp dialysis(MWF), AV fistula recommend - Vascular Surgery consulted: plan for L UE AVF Wed after HD - US kidney/renal/bladder ordered and reviewed showing mild pelvocaliectasis right kidney. 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 - Supplemental O2 to keep sats >88%. - pulmonary medicine following: solumedrol 20 mg BID x 2 days (12/07-12/09), CXR for 12/08 ordered and pending -S/P bronchoscopy 12/05/16, biopsy pending Hypoalbuminemia suspect secondary to poor PO intake Severe emancipation - Tumor markers were ordered and reviewed. DVT Prophylaxis: SCDs/TEDs. Discharge Planning In summary this is a 55-year-old male patient who presented to [facility] meeting sepsis criteria, source right multilobular pneumonia. He completed a course of cefepime. Patient's creatinine on admission was significantly elevated. An ultrasound of the kidney renal bladder showed mild pelvocaliectasis of the right kidney. He underwent a kidney biopsy which showed findings of membranoproliferative glomerulonephritis. The patient was started on dialysis. It was recommended that the patient would need long-term dialysis and AV fistula needed to be placed. Vascular surgery was consulted, the plan is for the patient to have left upper extremity AV fistula this coming Thursday after hemodialysis. On admission patient was also noted to have significant hematochezia and blood in his stool. The patient received a total of 4 units of packed red blood cells. Due to his unstable clinical condition and plan was for the patient to stabilize and then an EGD colonoscopy be performed. This is anticipated for sometime this week. GI is following. The patient also has significant lung disease and experienced respiratory failure. The patient underwent a bronchoscopy, the biopsies are pending. He is being followed by pulmonology as well. No current discharge plan in place. Problem Qualifiers (1) GI bleed: (2) Pneumonia: (3) Sepsis: Elva Dawson MD Dec 08, 2016 09:38
[2016-12-08 09:47] LABS: BICARBONATE 22.3 MEQ/L (21.0-32.0); POTASSIUM 3.6 MEQ/L (3.5-5.1)
--- NOTE | 2016-12-08 09:56 | RADRPT ---
EXAM DATE/TIME: 12/08/2016 09:27 [facility] COMPARISON: CHEST SINGLE AP, December 05, 2016, 11:54. INDICATIONS : Shortness of breath, chest pain, cough, congestion. MEDICAL HISTORY : Hypertension. Chronic obstructive pulmonary disease. SURGICAL HISTORY : CABG. Perm Cath. ENCOUNTER: Subsequent ACUITY: 3 weeks PAIN SCORE: 6/10 LOCATION: Right lower chest FINDINGS: There is persistent abnormal consolidative opacity in the right upper lobe with streaky right basilar opacity seen. A Vas-Cath is again seen on the right. Sternotomy wires and CABG markers are noted. Hy perinflation is noted on the left with bullous emphysematous changes present. CONCLUSION: No significant change has occurred. Vsau Barrientos MD on December 08, 2016 at 9:54 Board Certified Radiologist. This report was verified electronically.
[2016-12-08] MEDS: LACTOBACILLUS ACIDOPHILUS TAB PO SCH ×2 (10:29→21:20)
[2016-12-08] MEDS: PANTOPRAZOLE SOD 40 MG DELAYED RELEASE TAB PO SCH ×2 (10:30→21:18)
[2016-12-08] MEDS: POTASSIUM CHLORIDE 20 MEQ CONTROLLED RELEASE TAB PO SCH (10:30)
[2016-12-08] MEDS: methylPREDNISolone SOD SUCC 40 MG/1 ML VIAL IV SCH ×2 (10:30→21:20)
[2016-12-08] MEDS: CHOLECALCIFEROL (VIT D3) 1000 UNIT TAB PO SCH (10:30)
--- NOTE | 2016-12-08 11:50 | HHI.NPPN ---
Subjective General Problems: Anemia Renal Failure: Acute Interval History Feels better. Good appetite. In better spirits. Review of Systems General Constitutional: Fatigue Respiratory Lungs: Cough, Sputum Objective Data Data Vital Signs Date Time Temp Pulse Resp B/P (MAP) Pulse Ox O2 Delivery O2 Flow Rate FiO2 12/08/16 11:25 95 Nasal Cannula 1.00 12/08/16 08:00 95 12/08/16 08:00 97.7 100 18 139/90 (106) 90 12/08/16 04:00 98.1 91 18 141/89 (106) 93 12/08/16 04:00 Nasal Cannula 1.00 12/08/16 00:00 98.2 103 20 136/90 (105) 92 12/08/16 00:00 98.2 103 20 136/90 (105) 92 12/07/16 23:59 Nasal Cannula 1.00 Humidified 12/07/16 20:04 Nasal Cannula 1.00 12/07/16 20:01 99 12/07/16 20:00 98.2 96 20 131/76 (94) 92 12/07/16 20:00 98.2 96 20 131/76 (94) 92 12/07/16 17:54 92 Nasal Cannula 1.00 12/07/16 16:34 98.5 95 18 123/80 (94) 95 12/07/16 12:53 92 Nasal Cannula 1.00 12/07/16 12:29 98.4 99 20 123/80 (94) 85 -: 12/08/16 0805 12/08/16 0805 Tubes & Lines: Perma-Cath, Herbert Physical Exam General Appearance: Well Developed, Well Nourished, No Acute Distress, Comfortable Eyes Eye Exam: Pupils Equal, Pupils Reactive Throat Throat Exam: Oral Mucosa [place] & Moist Neck Neck Exam: Neck Supple Pulmonary Resp Exam: Clear Bilaterally, Breath Sounds Equal, Decreased Bases Cardiology CV Exam: Regular, Normal Sinus Rhythm, Good Perfusion Gastrointestinal/Abdomen GI Exam: Soft, Non-Tender, Bowel Sounds Present Musculoskeletal MS Exam: Joints Intact, Normal Tone, Good Strength Integumentary Skin Exam: Clear, Warm, Dry, Intact Extremeties Extremities Exam: No Edema, Pedal Pulses Palpable Neurologic Neuro Exam: Alert, Awake, Oriented, Speech Clear Psychiatric Psych Exam: Appropriate Responses Assessment/Plan Discussed Condition With: Patient Assessment Summary: SEJAL/Acute Renal Failure, Anemia of CKD Electrolyte Assessment: Hypocalcemia, Hypokalemia, Metabolic Acidosis Problem List: (1) Chronic kidney disease, stage 5 ICD Codes: N18.5 - Chronic kidney disease, stage 5 Plan: patient likely has reached ESRD. Continue dialysis support. Vascular surgery has been consulted for AVF placement, hopefully this week. Monitor urine output and renal function. Renal biopsy revealed severe interstitial fibrosis, tubular atrophy and findings suggestive MPGN, with significant global glomerular sclerosis. (2) Acidosis ICD Codes: E87.2 - Acidosis Status: Acute Plan: Improved. (3) Hypokalemia ICD Codes: E87.6 - Hypokalemia Status: Acute Plan: imrpoved slighlty he may have a proximal tubule disorder ordered IV and PO replacement follow labs 24 hour urine for potassium and protein has been ordered (4) GI bleed ICD Codes: K92.2 - Gastrointestinal hemorrhage, unspecified Status: Acute Plan: Hb improved GI following, needs EGD/colonoscopy this admission on protonix gtt (5) Hypocalcemia ICD Codes: E83.51 - Hypocalcemia Plan: Treat hyperphosphatemia, on Sevelamer. PTH around 130, slightly lower than the range desired for stage V CkD, no need for Calcitriol. (6) Pneumonia ICD Codes: J18.9 - Pneumonia, unspecified organism Status: Acute Plan: seen by pulmonary. Underwent bronchoscopy. All the antibiotics appear to have been stopped. Problem Qualifiers (1) GI bleed: (2) Pneumonia: Jim Zuluaga MD Dec 08, 2016 11:50
--- NOTE | 2016-12-08 13:52 | HHI.GIFU ---
Subjective Remarks Lying in bed. Reports his breathing is good today. O2 sats continue to be at 87- 89% on room air. Currently he is on 1L O2 with O2 sats at 95%. Denies abdominal pain. Had BM today, denies bright red blood. Objective Vitals I&O Vital Signs Date Time Temp Pulse Resp B/P (MAP) Pulse Ox O2 Delivery O2 Flow Rate FiO2 12/08/16 12:00 97.6 93 18 124/72 (89) 96 12/08/16 11:25 95 Nasal Cannula 1.00 12/08/16 08:00 95 12/08/16 08:00 97.7 100 18 139/90 (106) 90 12/08/16 04:00 98.1 91 18 141/89 (106) 93 12/08/16 04:00 Nasal Cannula 1.00 12/08/16 00:00 98.2 103 20 136/90 (105) 92 12/08/16 00:00 98.2 103 20 136/90 (105) 92 12/07/16 23:59 Nasal Cannula 1.00 Humidified 12/07/16 20:04 Nasal Cannula 1.00 12/07/16 20:01 99 12/07/16 20:00 98.2 96 20 131/76 (94) 92 12/07/16 20:00 98.2 96 20 131/76 (94) 92 12/07/16 17:54 92 Nasal Cannula 1.00 12/07/16 16:34 98.5 95 18 123/80 (94) 95 I/O 12/07/16 12/07/16 12/07/16 12/08/16 12/08/16 12/08/16 06:59 14:59 22:59 06:59 14:59 22:59 Intake Total 480 ml 800 ml 240 ml Output Total 600 ml 700 ml 500 ml Balance -120 ml -700 ml 300 ml 240 ml Intake Oral 480 ml 800 ml 240 ml Output Urine Total 600 ml 700 ml 500 ml # Voids 2 # Bowel Movements 0 0 2 Laboratory Laboratory Tests Test 12/08/16 08:05 White Blood Count 11.3 Red Blood Count 2.56 Hemoglobin 7.8 Hematocrit 23.9 Mean Corpuscular Volume 93.2 Mean Corpuscular Hemoglobin 30.3 Mean Corpuscular Hemoglobin Concent 32.6 Red Cell Distribution Width 16.2 Platelet Count 175 Mean Platelet Volume 9.3 Neutrophils (%) (Auto) 70.7 Lymphocytes (%) (Auto) 23.2 Monocytes (%) (Auto) 5.0 Eosinophils (%) (Auto) 0.5 Basophils (%) (Auto) 0.6 Neutrophils # (Auto) 8.0 Lymphocytes # (Auto) 2.6 Monocytes # (Auto) 0.6 Eosinophils # (Auto) 0.1 Basophils # (Auto) 0.1 CBC Comment DIFF FINAL Differential Comment Blood Urea Nitrogen 64 Creatinine 6.77 Random Glucose 81 Calcium Level 8.5 Sodium Level 139 Potassium Level 3.6 Chloride Level 103 Carbon Dioxide Level 22.3 Anion Gap 14 Estimat Glomerular Filtration Rate 9 Date/Time Source Procedure Growth Status 11/22/16 15:20 Blood Peripheral Aerobic Blood Culture - Final NO GROWTH IN 5 DAYS Complete 11/22/16 15:20 Blood Peripheral Anaerobic Blood Culture - Final NO GROWTH IN 5 DAYS Complete 11/22/16 20:30 Stool Stool Cryptosporidium Exam - Final NEGATIVE - NO CRYPTOSPORIDIUM ANTIGEN... Complete 11/22/16 20:30 Stool Stool Stool Pus (MANOLO) - Final FEW WBC'S Complete 11/22/16 20:30 Stool Stool Giardia Antigen (MANOLO) - Final NEGATIVE - NO GIARDIA ANTIGEN DETECTE... Complete 12/05/16 11:41 Bronchial Washings Right Upper Lobe Fungal Smear - Final NO FUNGAL ELEMENTS SEEN. Resulted 12/05/16 11:41 Bronchial Washings Right Upper Lobe Fungal Culture Pending Resulted 11/25/16 12:00 Urine Catheterized Urine Urine Culture - Final NO GROWTH IN 48 HOURS. Complete Imaging Last Impressions Chest X-Ray 12/08/16 0000 Signed Impressions: Service Date/Time: Thursday, December 08, 2016 09:27 - CONCLUSION: No significant change has occurred. Vasu Barrientos MD Upper Extremity Ultrasound 12/04/16 0000 Signed Impressions: Service Date/Time: November 18:26 - CONCLUSION: Venous mapping as delineated above. The cephalic veins are abnormal bilaterally. Caio Villalpando MD Renal Biopsy CT 12/02/16 1350 Signed Impressions: Service Date/Time: Friday, December 02, 2016 08:33 - CONCLUSION: Uncomplicated CT guided biopsy of the right kidney for function. Mustapha Vela Jr., MD Catheter Placement X-Ray 11/28/16 0000 Signed Impressions: Service Date/Time: Monday, November 28, 2016 15:57 - CONCLUSION: Uncomplicated PermaCath placement as above. Mustapha Vela Jr., MD Chest CT 11/26/16 0000 Signed Impressions: Service Date/Time: Saturday, November 26, 2016 13:54 - CONCLUSION: 1. Dense consolidative right upper lobe pneumonia on a background of severe emphysema with cavitary foci within the consolidated areas. 2. There is patchy right middle and lower lobe pneumonia as well. 3. Bilateral effusions right greater than left. 4. Associated mediastinal adenopathy. Vasu Barrientos MD Renal Ultrasound 11/22/16 0000 Signed Impressions: Service Date/Time: Tuesday, November 22, 2016 17:14 - CONCLUSION: Mild pelvocaliectasis right kidney not present previously. Obdulia Garcia MD Physical Exam HEENT: Normocephalic. CHEST: Diminished throughout, 1L NC. CARDIAC: Regular, tachycardic rhythm ABDOMEN: Soft, nondistended, nontender; no hepatosplenomegaly; bowel sounds are present. EXTREMITIES: No clubbing, cyanosis, or edema. SKIN: Normal; no rash; no jaundice. APPLICATION SUPPORT ANALYST: No focal deficits; alert and oriented x 3 Assessment and Plan Plan ASSESSMENT: - Anemia ( hgb of 6 on admission) with rectal bleeding for over a year secondary to hemorrhoids per patient - States copious amounts of blood filling the toilet monthly for a week duration at a time. S/P 4 units of PRBC. HH stable Would benefit from EGD/Colonoscopy when medically cleared - Hemorrhoids. hydrocortisone suppositories - Diarrhea. CDiff negative. No enteric pathogens, negative for cryptosporidium , negative for giardia. Few wbc. probiotics, doesn't want Imodium - ARF Renal following, HD - Resp. Insufficiency with multilobular PNA/severe emphysema, per pulmonary S/P Bronchoscopy (12/05/16) - Leukocytosis- trending down, afebrile, , ESR > 140, blood cx no growth 2d - Weight loss- 10-15 ibs in the last 3 weeks due to poor appetite and Po intake - Hypokalemia- Secondary to above, replaced by attending - Hx of CABG, COPD per attending 12/07/16--HH 7.7 (12/06). Patient reports he did note blood on wipe with BM yesterday. He has not had BM today. Tolerating diet. Breathing appears to be improving. Has CXR scheduled for Thursday. 12/08/16--HH 7.8/23.9 today. Had BM, no bright red blood noted today. Unable to keep O2 sats normal on room air. On 1L NC with O2 sats at 95%. CXR today showed no significant change. PLAN: - Heart healthy diet - Cont. PPI - Monitor HH, transfuse as necessary - EGD/Colonoscopy TBD, after medically cleared for endoscopy - Await results of bronchoscopy - Patient is willing to have EGD/colonoscopy when appropriate - Supportive care - Further recommendations to follow based on results of above Patient seen and examined by Dr. Craft and myself and this note is written on his behalf. Tamia Castellanos Dec 08, 2016 13:52
--- NOTE | 2016-12-08 16:36 | HHI.PR ---
Subjective Remarks States that he is breathing better.on Dialysis today CXR: improved Right Pneumonia. O2 at 2 L Objective Vital Signs Date Time Temp Pulse Resp B/P (MAP) Pulse Ox O2 Delivery O2 Flow Rate FiO2 12/08/16 12:00 97.6 93 18 124/72 (89) 96 12/08/16 11:25 95 Nasal Cannula 1.00 12/08/16 08:00 95 12/08/16 08:00 97.7 100 18 139/90 (106) 90 12/08/16 07:15 Nasal Cannula 1.00 12/08/16 04:00 98.1 91 18 141/89 (106) 93 12/08/16 04:00 Nasal Cannula 1.00 12/08/16 00:00 98.2 103 20 136/90 (105) 92 12/08/16 00:00 98.2 103 20 136/90 (105) 92 12/07/16 23:59 Nasal Cannula 1.00 Humidified 12/07/16 20:04 Nasal Cannula 1.00 12/07/16 20:01 99 12/07/16 20:00 98.2 96 20 131/76 (94) 92 12/07/16 20:00 98.2 96 20 131/76 (94) 92 12/07/16 17:54 92 Nasal Cannula 1.00 I/O 12/07/16 12/07/16 12/07/16 12/08/16 12/08/16 12/08/16 07:00 15:00 23:00 07:00 15:00 23:00 Intake Total 480 ml 800 ml 240 ml Output Total 600 ml 700 ml 500 ml Balance -120 ml -700 ml 300 ml 240 ml Intake Oral 480 ml 800 ml 240 ml Output Urine Total 600 ml 700 ml 500 ml # Voids 2 # Bowel Movements 0 0 2 Result Diagram: 12/08/1680412/08/16804 Objective Remarks GENERAL: This is a middle-aged averagely built white male who is alert and in no acute distress. HEAD, EYES, EARS, NOSE, THROAT: Head normocephalic. The pupils are reactive. Tongue is moist. Throat is clear. Nasal mucosa is clear. NECK: The neck is supple. No bruits. No thyroid enlargement. No lymphadenopathy. CHEST: Equal movements. There are Occ wheezes in the Right chest. HEART: Heart sounds are regular. S1 and S2. No murmur. ABDOMEN: Abdomen is soft and protuberant. No masses or tenderness. EXTREMITIES: .No edema. No calf tenderness. NEUROLOGIC: Reflexes are normal. No focal deficits. SKIN: Dry and cool. Assessment and Plan Assessment and Plan IMPRESSION: 1. Extensive right lung pneumonia with hypoxemia. 2. Chronic kidney disease with acute renal failure. 3. COPD with emphysema and chronic bronchitis. 4. History of coronary artery bypass grafting. Plan : 1. IS q3h at bedside 2. O2 at 1 L.and wean 3. Nebs qid , duoneb 4. BMP,CBC in am. 5. D/C Solumedrol and add Prednisone 10 mg bid 6. Dialysis as planned. Alison Wilson MD Dec 08, 2016 16:36
[2016-12-08] MEDS: EPOETIN ALFA 10,000 UNITS/ML VIAL IV PRN (17:13)
[2016-12-08] MEDS: HEPARIN SODIUM - IV 10,000 UNITS/10 ML VIAL PRN (17:13)
[2016-12-08] MEDS: GENTAMICIN SULFATE (DIALYSIS USE ONLY) 20 MG/2 ML VIAL IV PRN (17:13)
[2016-12-08] MEDS: SODIUM CHLORIDE 0.9% FLUSH 10 ML FLUSH IV FLUSH PRN (21:19)
[2016-12-09] VITALS (9 sets, daily range): BP systolic 103–116; BP diastolic 73–95; PULSE 97–102; RESP 16–20; TEMP 97.5–98.9; O2SAT 90–97
[2016-12-09] MEDS: HYDROCORTISONE ACETATE 25 MG SUPP RECTAL SCH (09:00)
[2016-12-09 09:13] LABS: BASOPHIL # 0.1 TH/MM3 (0-0.2); BASOPHIL % 0.6 % (0.0-2.0); EOSINOPHIL # 0.1 TH/MM3 (0-0.4); EOSINOPHIL % 0.4 % (0.0-4.0); HEMATOCRIT 26.4 % (39.0-51.0); LYMPH % 22.9 % (9.0-44.0); MEAN CELL VOLUME 93.9 FL (80.0-100.0); MEAN CORPUSCULAR HEMOGLOBIN 30.4 PG (27.0-34.0); MEAN CORPUSCULAR HGB CONC 32.3 % (32.0-36.0); MONO % 7.5 % (0.0-8.0); NEUT % 68.6 % (16.0-70.0); PLATELET COUNT 188 TH/MM3 (150-450); RED BLOOD COUNT 2.82 MIL/MM3 (4.50-5.90); RED CELL DISTRIBUTION WIDTH 16.3 % (11.6-17.2); WHITE BLOOD COUNT 13.1 TH/MM3 (4.0-11.0)
[2016-12-09 09:15] LABS: HEMO FLAGS AUTO DIFF
[2016-12-09] MEDS: SEVELAMER CARBONATE 800 MG TAB PO SCH ×3 (09:25→17:55)
[2016-12-09] MEDS: POTASSIUM CHLORIDE 20 MEQ CONTROLLED RELEASE TAB PO SCH (09:25)
[2016-12-09] MEDS: CHOLECALCIFEROL (VIT D3) 1000 UNIT TAB PO SCH (09:25)
[2016-12-09] MEDS: LACTOBACILLUS ACIDOPHILUS TAB PO SCH ×2 (09:25→20:20)
[2016-12-09] MEDS: methylPREDNISolone SOD SUCC 40 MG/1 ML VIAL IV SCH (09:26)
[2016-12-09] MEDS: PANTOPRAZOLE SOD 40 MG DELAYED RELEASE TAB PO SCH ×2 (09:26→20:20)
--- NOTE | 2016-12-09 09:44 | HHI.NPPN ---
Subjective General Problems: Anemia Renal Failure: Acute Interval History underwent dialysis yesterday. He is clinically stable. Discussed with case monitor regarding discharge process. Review of Systems General Constitutional: Fatigue Respiratory Lungs: Cough, Sputum Objective Data Data Vital Signs Date Time Temp Pulse Resp B/P (MAP) Pulse Ox O2 Delivery O2 Flow Rate FiO2 12/09/16 08:00 98.9 97 18 115/74 (88) 97 12/09/16 04:01 98.8 100 20 111/80 (90) 97 12/09/16 04:00 98.8 100 20 111/80 (90) 97 12/09/16 04:00 Nasal Cannula 1.00 12/09/16 00:00 Room Air 12/09/16 00:00 98.7 102 20 103/95 (98) 94 12/08/16 19:57 Nasal Cannula 1.00 Humidified 12/08/16 19:56 98.4 94 18 119/76 (90) 95 12/08/16 19:56 114 12/08/16 19:47 94 Nasal Cannula 1.00 12/08/16 18:30 98.2 97 18 121/75 (90) 95 12/08/16 12:00 97.6 93 18 124/72 (89) 96 12/08/16 11:25 95 Nasal Cannula 1.00 -: 12/09/16 0700 12/08/16 0805 Tubes & Lines: Perma-Cath, Herbert Physical Exam General Appearance: Well Developed, Well Nourished, No Acute Distress, Comfortable Eyes Eye Exam: Pupils Equal, Pupils Reactive Throat Throat Exam: Oral Mucosa [place] & Moist Neck Neck Exam: Neck Supple Pulmonary Resp Exam: Clear Bilaterally, Breath Sounds Equal, Decreased Bases Cardiology CV Exam: Regular, Normal Sinus Rhythm, Good Perfusion Gastrointestinal/Abdomen GI Exam: Soft, Non-Tender, Bowel Sounds Present Musculoskeletal MS Exam: Joints Intact, Normal Tone, Good Strength Integumentary Skin Exam: Clear, Warm, Dry, Intact Extremeties Extremities Exam: No Edema, Pedal Pulses Palpable Neurologic Neuro Exam: Alert, Awake, Oriented, Speech Clear Psychiatric Psych Exam: Appropriate Responses Assessment/Plan Discussed Condition With: Patient Assessment Summary: SEJAL/Acute Renal Failure, Anemia of CKD Electrolyte Assessment: Hypocalcemia, Hypokalemia, Metabolic Acidosis Problem List: (1) Chronic kidney disease, stage 5 ICD Codes: N18.5 - Chronic kidney disease, stage 5 Plan: patient likely has reached ESRD. Continue dialysis support. Vascular surgery has been consulted for AVF placement, hopefully this week. Monitor urine output and renal function. Renal biopsy revealed severe interstitial fibrosis, tubular atrophy and findings suggestive MPGN, with significant global glomerular sclerosis. (2) Acidosis ICD Codes: E87.2 - Acidosis Status: Acute Plan: Improved. (3) Hypokalemia ICD Codes: E87.6 - Hypokalemia Status: Acute Plan: imrpoved slighlty he may have a proximal tubule disorder ordered IV and PO replacement follow labs 24 hour urine for potassium and protein has been ordered (4) GI bleed ICD Codes: K92.2 - Gastrointestinal hemorrhage, unspecified Status: Acute Plan: Hb improved GI following, endoscopy is planned. On Protonix. (5) Hypocalcemia ICD Codes: E83.51 - Hypocalcemia Plan: Treat hyperphosphatemia, on Sevelamer. PTH around 130, slightly lower than the range desired for stage V CkD, no need for Calcitriol. (6) Pneumonia ICD Codes: J18.9 - Pneumonia, unspecified organism Status: Acute Plan: seen by pulmonary. Underwent bronchoscopy. All the antibiotics appear to have been stopped. Problem Qualifiers (1) GI bleed: (2) Pneumonia: Jim Zuluaga MD Dec 09, 2016 09:44
[2016-12-09 09:47] LABS: BANDS 5 % (0-6); NEUTROPHIL # MANUAL DIFF 10.5 TH/MM3 (1.8-7.7); POLYS (SEG NEUTROPHILS) 75 % (16-70); WBC DIFF SAMPLE 100
[2016-12-09 09:48] LABS: OVALOCYTES 1+ (NORMAL); PLATELET ESTIMATE SMEAR NORMAL (NORMAL); PLATELET MORPHOLOGY NORMAL (NORMAL); SCAN/DIFF FINAL DIFF MANUAL
[2016-12-09 10:19] LABS: BICARBONATE 27.8 MEQ/L (21.0-32.0); POTASSIUM 3.6 MEQ/L (3.5-5.1)
--- NOTE | 2016-12-09 10:47 | PD.VS.PN ---
Subjective Subjective/Hospital Course Pt in bed w/o complaints Objective Vitals/I&O Date Time Temp Pulse Resp B/P (MAP) Pulse Ox O2 Delivery O2 Flow Rate FiO2 12/09/16 08:00 98.9 97 18 115/74 (88) 97 12/09/16 04:01 98.8 100 20 111/80 (90) 97 12/09/16 04:00 98.8 100 20 111/80 (90) 97 12/09/16 04:00 Nasal Cannula 1.00 12/09/16 00:00 Room Air 12/09/16 00:00 98.7 102 20 103/95 (98) 94 12/08/16 19:57 Nasal Cannula 1.00 Humidified 12/08/16 19:56 98.4 94 18 119/76 (90) 95 12/08/16 19:56 114 12/08/16 19:47 94 Nasal Cannula 1.00 12/08/16 18:30 98.2 97 18 121/75 (90) 95 12/08/16 12:00 97.6 93 18 124/72 (89) 96 12/08/16 11:25 95 Nasal Cannula 1.00 12/09/16 12/09/16 12/09/16 07:00 15:00 23:00 Intake Total 360 ml Output Total 650 ml Balance -290 ml Physical Exam GENERAL: A&OX3, NAD,GCS15 SKIN: Warm and dry Pt with equal antenna installer strength Pt denies hand pain/weakness L/R radial pulses palpable Laboratory Laboratory Tests Test 12/09/16 07:00 White Blood Count 13.1 Red Blood Count 2.82 Hemoglobin 8.6 Hematocrit 26.4 Mean Corpuscular Volume 93.9 Mean Corpuscular Hemoglobin 30.4 Mean Corpuscular Hemoglobin Concent 32.3 Red Cell Distribution Width 16.3 Platelet Count 188 Mean Platelet Volume 9.1 Neutrophils (%) (Auto) 68.6 Lymphocytes (%) (Auto) 22.9 Monocytes (%) (Auto) 7.5 Eosinophils (%) (Auto) 0.4 Basophils (%) (Auto) 0.6 Neutrophils # (Auto) 9.0 Lymphocytes # (Auto) 3.0 Monocytes # (Auto) 1.0 Eosinophils # (Auto) 0.1 Basophils # (Auto) 0.1 CBC Comment AUTO DIFF Differential Total Cells Counted 100 Neutrophils % (Manual) 75 Band Neutrophils % 5 Lymphocytes % 13 Monocytes % 7 Neutrophils # (Manual) 10.5 Differential Comment FINAL DIFF MANUAL Platelet Estimate NORMAL Platelet Morphology Comment NORMAL Ovalocytes 1+ Blood Urea Nitrogen 45 Creatinine 5.24 Random Glucose 73 Calcium Level 7.9 Sodium Level 139 Potassium Level 3.6 Chloride Level 100 Carbon Dioxide Level 27.8 Anion Gap 11 Estimat Glomerular Filtration Rate 12 Date/Time Source Procedure Growth Status 11/22/16 15:20 Blood Peripheral Aerobic Blood Culture - Final NO GROWTH IN 5 DAYS Complete 11/22/16 15:20 Blood Peripheral Anaerobic Blood Culture - Final NO GROWTH IN 5 DAYS Complete 11/22/16 20:30 Stool Stool Cryptosporidium Exam - Final NEGATIVE - NO CRYPTOSPORIDIUM ANTIGEN... Complete 11/22/16 20:30 Stool Stool Stool Pus (MANOLO) - Final FEW WBC'S Complete 11/22/16 20:30 Stool Stool Giardia Antigen (MANOLO) - Final NEGATIVE - NO GIARDIA ANTIGEN DETECTE... Complete 12/05/16 11:41 Bronchial Washings Right Upper Lobe Fungal Smear - Final NO FUNGAL ELEMENTS SEEN. Resulted 12/05/16 11:41 Bronchial Washings Right Upper Lobe Fungal Culture Pending Resulted 11/25/16 12:00 Urine Catheterized Urine Urine Culture - Final NO GROWTH IN 48 HOURS. Complete Imaging Last 48 hours Impressions Chest X-Ray 12/08/16 0000 Signed Impressions: Service Date/Time: Thursday, December 08, 2016 09:27 - CONCLUSION: No significant change has occurred. Vasu Barrientos MD Assessment and Plan Assessment: (1) Chronic kidney disease, stage 5 (2) Chronic kidney disease Status: Acute Plan ESRD Pt w/ new onset HD and needs permanent access HD -MWF routine Plan Pt scheduled for a L UE AVF (brachiobasilic) for tomorrow after HD Continue LEFT ARM precautions Consent signed and placed in the chart NPO after midnight Lissette MORA [facility] [phone] Lissette Fernando Dec 09, 2016 10:47
--- NOTE | 2016-12-09 12:29 | HHI.PR ---
Subjective Remarks Follow up for ESRD. Patient is doing well. No acute concerns. AV fistula tomorrow. Objective Vitals Vital Signs Date Time Temp Pulse Resp B/P (MAP) Pulse Ox O2 Delivery O2 Flow Rate FiO2 12/09/16 12:00 98.5 98 18 113/73 (86) 90 12/09/16 08:00 98.9 97 18 115/74 (88) 97 12/09/16 07:15 Nasal Cannula 1.00 12/09/16 04:01 98.8 100 20 111/80 (90) 97 12/09/16 04:00 98.8 100 20 111/80 (90) 97 12/09/16 04:00 Nasal Cannula 1.00 12/09/16 00:00 Room Air 12/09/16 00:00 98.7 102 20 103/95 (98) 94 12/08/16 19:57 Nasal Cannula 1.00 Humidified 12/08/16 19:56 98.4 94 18 119/76 (90) 95 12/08/16 19:56 114 12/08/16 19:47 94 Nasal Cannula 1.00 12/08/16 18:30 98.2 97 18 121/75 (90) 95 I/O 12/08/16 12/08/16 12/08/16 12/09/16 12/09/16 12/09/16 07:00 15:00 23:00 07:00 15:00 23:00 Intake Total 240 ml 240 ml 360 ml Output Total 3700 ml 650 ml Balance 240 ml -3460 ml -290 ml Intake Oral 240 ml 240 ml 360 ml Output Urine Total 700 ml 650 ml Hemodialysis 3000 ml # Voids 2 1 # Bowel Movements 2 0 Result Diagram: 12/09/16 0700 12/09/16 0700 Imaging Last Impressions Chest X-Ray 12/08/16 0000 Signed Impressions: Service Date/Time: Thursday, December 08, 2016 09:27 - CONCLUSION: No significant change has occurred. Vasu Barrientos MD Upper Extremity Ultrasound 12/04/16 0000 Signed Impressions: Service Date/Time: November 18:26 - CONCLUSION: Venous mapping as delineated above. The cephalic veins are abnormal bilaterally. Caio Villalpando MD Renal Biopsy CT 12/02/16 1350 Signed Impressions: Service Date/Time: Friday, December 02, 2016 08:33 - CONCLUSION: Uncomplicated CT guided biopsy of the right kidney for function. Mustapha Vela Jr., MD Catheter Placement X-Ray 11/28/16 0000 Signed Impressions: Service Date/Time: Monday, November 28, 2016 15:57 - CONCLUSION: Uncomplicated PermaCath placement as above. Mustapha Vela Jr., MD Chest CT 11/26/16 0000 Signed Impressions: Service Date/Time: Saturday, November 26, 2016 13:54 - CONCLUSION: 1. Dense consolidative right upper lobe pneumonia on a background of severe emphysema with cavitary foci within the consolidated areas. 2. There is patchy right middle and lower lobe pneumonia as well. 3. Bilateral effusions right greater than left. 4. Associated mediastinal adenopathy. Vasu Barrientos MD Renal Ultrasound 11/22/16 0000 Signed Impressions: Service Date/Time: Tuesday, November 22, 2016 17:14 - CONCLUSION: Mild pelvocaliectasis right kidney not present previously. Obdulia Garcia MD Objective Remarks GENERAL: AOX3, NAD. SKIN: Warm and dry. HEAD: Normocephalic. EYES: No scleral icterus. No injection or drainage. NECK: Supple, trachea midline. No JVD or lymphadenopathy. CARDIOVASCULAR: Regular rate and rhythm without murmurs, gallops, or rubs. RESPIRATORY: Breath sounds equal bilaterally. No accessory muscle use. GASTROINTESTINAL: Abdomen soft, non-tender, nondistended. MUSCULOSKELETAL: No cyanosis, or edema. BACK: Nontender without obvious deformity. No CVA tenderness. Procedures 11/28/2016 Right Internal Jugular Hemodialysis Catheter Tunneled Placement dual lumen 12/02/2016 Successful right renal biopsy for function. Gelfoam and thrombin utilized. No bleeding on post CT A/P Problem List: (1) Sepsis ICD Code: A41.9 - Sepsis, unspecified organism Status: Acute (2) Acute renal failure ICD Code: N17.9 - Acute kidney failure, unspecified Status: Acute (3) Pneumonia ICD Code: J18.9 - Pneumonia, unspecified organism Status: Acute (4) Coronary artery disease ICD Code: I25.10 - Coronary artery disease Status: Acute (5) Anemia ICD Code: D64.9 - Anemia Status: Acute (6) Hematochezia ICD Code: K92.1 - Melena Status: Acute (7) Hypokalemia ICD Code: E87.6 - Hypokalemia Status: Acute Assessment and Plan 55-year-old man with Sepsis on admission suspect secondary to right multilobular pneumonia-resolved -Completed cefepime 1 g every 12 hours on 12/06/16 ESRD - Per nephrology will need fpc dialysis(MWF), AV fistula on 12/10/2016. - Vascular Surgery consulted: plan for L UE AVF Wed (12/10/2016) after HD - US kidney/renal/bladder ordered and reviewed showing mild pelvocaliectasis right kidney. 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 - Supplemental O2 to keep sats >88%. - pulmonary medicine following: solumedrol 20 mg BID x 2 days (12/07-12/09), CXR for 12/08 ordered and pending -S/P bronchoscopy 12/05/16, biopsy pending DVT Prophylaxis: SCDs/TEDs. Problem Qualifiers (1) Sepsis: (2) Acute renal failure: (3) Pneumonia: (4) Anemia: Hever Xavier DO Dec 09, 2016 12:29
--- NOTE | 2016-12-09 19:22 | HHI.PR ---
Subjective Remarks Feeling better.Was on Dialysis today CXR: improved Right Pneumonia. On O2 at 2 L Objective Vital Signs Date Time Temp Pulse Resp B/P (MAP) Pulse Ox O2 Delivery O2 Flow Rate FiO2 12/09/16 16:00 98.4 100 18 116/74 (88) 96 12/09/16 13:40 96 Nasal Cannula 1.00 12/09/16 12:00 98.5 98 18 113/73 (86) 90 12/09/16 08:00 100 12/09/16 08:00 98.9 97 18 115/74 (88) 97 12/09/16 07:15 Nasal Cannula 1.00 12/09/16 04:01 98.8 100 20 111/80 (90) 97 12/09/16 04:00 98.8 100 20 111/80 (90) 97 12/09/16 04:00 Nasal Cannula 1.00 12/09/16 00:00 Room Air 12/09/16 00:00 98.7 102 20 103/95 (98) 94 12/08/16 19:57 Nasal Cannula 1.00 Humidified 12/08/16 19:56 98.4 94 18 119/76 (90) 95 12/08/16 19:56 114 12/08/16 19:47 94 Nasal Cannula 1.00 I/O 12/08/16 12/08/16 12/08/16 12/09/16 12/09/16 12/09/16 07:00 15:00 23:00 07:00 15:00 23:00 Intake Total 240 ml 240 ml 360 ml 720 ml Output Total 3700 ml 650 ml 400 ml Balance 240 ml -3460 ml -290 ml 320 ml Intake Oral 240 ml 240 ml 360 ml 720 ml Output Urine Total 700 ml 650 ml 400 ml Hemodialysis 3000 ml # Voids 2 1 # Bowel Movements 2 0 1 Result Diagram: 12/09/16 0700 12/09/16 0700 Objective Remarks GENERAL: This is a middle-aged averagely built white male who is alert and in no acute distress. HEAD, EYES, EARS, NOSE, THROAT: Head normocephalic. The pupils are reactive. Tongue is moist. Throat is clear. Nasal mucosa is clear. NECK: The neck is supple. No bruits. No thyroid enlargement. No lymphadenopathy. CHEST: Equal movements. Clear lungs HEART: Heart sounds are regular. S1 and S2. No murmur. ABDOMEN: Abdomen is soft and protuberant. No masses or tenderness. EXTREMITIES: No edema. No calf tenderness. NEUROLOGIC: Reflexes are normal. No focal deficits. SKIN: Dry and cool. Assessment and Plan Assessment and Plan IMPRESSION: 1. Extensive right lung pneumonia with hypoxemia. 2. Chronic kidney disease with acute renal failure. 3. COPD with emphysema and chronic bronchitis. 4. History of coronary artery bypass grafting. Plan : 1. IS q3h at bedside 2. O2 at 1 L.and wean 3. Nebs qid , duoneb 4. BMP,CBC in am. 5. Prednisone 10 mg bid 6. Dialysis as planned. 7. PT and OT. Alison Wilson MD Dec 09, 2016 19:22
[2016-12-09] MEDS: predniSONE 10 MG TAB PO SCH (20:20)
[2016-12-10] VITALS (8 sets, daily range): BP systolic 90–128; BP diastolic 54–85; PULSE 95–116; RESP 12–24; TEMP 98.2–100.3; O2SAT 94–96
[2016-12-10] MEDS ORDERED: SODIUM CHLORID 0.9% 500 ML IV PRN (05:00)
[2016-12-10] MEDS ORDERED: METOPROLOL TARTRATE 25 MG TAB PO PRN (05:00)
[2016-12-10] MEDS ORDERED: LACTATED RINGER'S 1000 ML IV PRN (05:00)
[2016-12-10] MEDS ORDERED: INSULIN HUMAN REGULAR 1,000 UNITS/10 ML VIAL SQ PRN (05:00)
[2016-12-10] MEDS ORDERED: CHLORHEXIDINE GLUCONATE 2 % 1 PACK (2 CLOTHS) TOPICAL PRN (05:00)
[2016-12-10] MEDS ORDERED: POVIDONE IODINE 5% (ANTISEPSIS KIT) 4 APPLICATIONS EACH NARE PRN (05:00)
[2016-12-10] MEDS: SEVELAMER CARBONATE 800 MG TAB PO SCH ×3 (08:00→17:00)
[2016-12-10] MEDS: HYDROCORTISONE ACETATE 25 MG SUPP RECTAL SCH (09:00)
[2016-12-10] MEDS: HEPARIN SODIUM - IV 10,000 UNITS/10 ML VIAL PRN (10:23)
[2016-12-10] MEDS: EPOETIN ALFA 10,000 UNITS/ML VIAL IV PRN (10:23)
[2016-12-10] MEDS: GENTAMICIN SULFATE (DIALYSIS USE ONLY) 20 MG/2 ML VIAL IV PRN (10:24)
[2016-12-10] MEDS: PANTOPRAZOLE SOD 40 MG DELAYED RELEASE TAB PO SCH ×2 (12:13→20:38)
[2016-12-10] MEDS: LACTOBACILLUS ACIDOPHILUS TAB PO SCH ×2 (12:13→20:39)
[2016-12-10] MEDS: predniSONE 10 MG TAB PO SCH ×2 (12:13→20:38)
[2016-12-10] MEDS: POTASSIUM CHLORIDE 20 MEQ CONTROLLED RELEASE TAB PO SCH (12:13)
[2016-12-10] MEDS: CHOLECALCIFEROL (VIT D3) 1000 UNIT TAB PO SCH (12:14)
[2016-12-10] MEDS ORDERED: VANCOMYCIN HCL 1000 MG VIAL ONE (13:32)
[2016-12-10] MEDS ORDERED: SODIUM CHLOR 0.9% 250 ML INJ 250 ML ONE (13:32)
[2016-12-10] MEDS ORDERED: BUPIVACAINE/EPINEPHRINE 0.5% PF 30 ML VIAL ONE (13:32)
[2016-12-10] MEDS ORDERED: HEPARIN-NS/PF INJ 500 ML ONE (13:39)
[2016-12-10] MEDS ORDERED: HEPARIN SODIUM - IV 10,000 UNITS/10 ML VIAL ONE (13:53)
--- NOTE | 2016-12-10 14:23 | HHI.PR ---
Immediate Post Op Note Procedure Date: Dec 10, 2016 Pre Op Diagnosis: ESRD, need for HD access Post Op Diagnosis: ESRD, need for HD access Surgeon: Clarence Pyle General Manager Road Production(s): Heather Wren Procedure: L brachiobasilic AVF (1st stage) Findings: small vein, good artery Additional Information: palpable radial pulse after case Complications: none apparent Specimen(s) removed: none Estimated blood loss: 20mL Anesthesia: General Drains: None Fluids: 650mL IVF Patient to: PACU Date/Time of Procedure: SEE SURGICAL CARE RECORD Clarence Pyle MD Dec 10, 2016 14:23
[2016-12-10] MEDS ORDERED: DO NOT ADM ANY ANTICOAGULANT DRUGS PRN (14:30)
[2016-12-10] MEDS ORDERED: SODIUM CHLORID 0.9% 500 ML INJ 500 ML IV ONE ×2 (16:30→16:45)
--- NOTE | 2016-12-10 19:56 | HHI.PR ---
Subjective Remarks Feeling better.Had AV fistula done today. No chest pain. CXR: improved Right Pneumonia. On O2 at 2 L Objective Vital Signs Date Time Temp Pulse Resp B/P (MAP) Pulse Ox O2 Delivery O2 Flow Rate FiO2 12/10/16 17:30 96 Nasal Cannula 1.00 12/10/16 16:15 105 16 90/56 (67) 96 Nasal Cannula 2 12/10/16 16:00 98.8 107 16 96/62 (73) 96 Nasal Cannula 2 12/10/16 16:00 99.5 116 24 90/54 (66) 95 12/10/16 15:45 103 15 88/58 (68) 96 Nasal Cannula 2 12/10/16 15:30 105 15 85/57 (66) 96 Nasal Cannula 2 12/10/16 15:15 104 15 77/52 (60) 95 Nasal Cannula 2 12/10/16 15:00 105 15 83/51 (62) 95 Nasal Cannula 2 12/10/16 14:45 98.4 107 16 83/48 (60) 98 Nasal Cannula 3 12/10/16 12:00 98.3 116 22 96/55 (69) 94 12/10/16 09:00 95 12/10/16 08:00 Nasal Cannula 1.00 12/10/16 08:00 98.5 99 24 111/74 (86) 94 12/10/16 04:00 98.3 100 12 128/85 (99) 95 12/10/16 00:00 98.2 96 12 116/78 (91) 94 12/09/16 20:27 101 12/09/16 20:24 Nasal Cannula 1.00 12/09/16 20:00 97.5 99 16 95 I/O 12/09/16 12/09/16 12/09/16 12/10/16 12/10/16 12/10/16 06:59 14:59 22:59 06:59 14:59 22:59 Intake Total 360 ml 720 ml 240 ml 650 ml 1180 ml Output Total 650 ml 400 ml 1320 ml Balance -290 ml 320 ml 240 ml -670 ml 1180 ml Intake Oral 360 ml 720 ml 240 ml 680 ml IV Total 500 ml Other 650 ml Output Urine Total 650 ml 400 ml Hemodialysis 1300 ml Estimated Blood Loss 20 ml # Voids 2 1 # Bowel Movements 0 1 0 Result Diagram: 12/09/16 0712/09/16 07 Objective Remarks GENERAL: This is a middle-aged averagely built white male who is alert and in no acute distress. HEAD, EYES, EARS, NOSE, THROAT: Head normocephalic. The pupils are reactive. Tongue is moist. Throat is clear. Nasal mucosa is clear. NECK: The neck is supple. No bruits. No thyroid enlargement. No lymphadenopathy. CHEST: Equal movements. Occ wheeze upper chest. HEART: Heart sounds are regular. S1 and S2. No murmur. ABDOMEN: Abdomen is soft and protuberant. No masses or tenderness. EXTREMITIES: No edema. No calf tenderness. NEUROLOGIC: Reflexes are normal. No focal deficits. SKIN: Dry and cool. Assessment and Plan Assessment and Plan IMPRESSION: 1. Extensive right lung pneumonia with hypoxemia. 2. Chronic kidney disease with acute renal failure. 3. COPD with emphysema and chronic bronchitis. 4. History of coronary artery bypass grafting. Plan : 1. IS q3h at bedside 2. O2 at 1 L.and wean 3. Nebs qid , duoneb 4. BMP,CXR CBC in am. 5.Cont Prednisone 10 mg bid 6. Dialysis as planned. 7. PT and OT. Alison Wilson MD Dec 10, 2016 19:56
--- NOTE | 2016-12-10 22:01 | HHI.PR ---
Addendum to Inpatient Note Additional Information I attempted to see patient twice. He was in surgery. Discussed with RN. Patient apparently had transient hypotension but resolved after fluid bolus. Will see patient on 12/11/2016. Hever Xavier DO Dec 10, 2016 22:01
[2016-12-11] VITALS (10 sets, daily range): BP systolic 96–119; BP diastolic 60–71; PULSE 92–121; RESP 16–20; TEMP 98–100; O2SAT 92–96
[2016-12-11] MEDS: ACETAMINOPHEN 325 MG TAB PO PRN (00:37)
[2016-12-11] MEDS: PANTOPRAZOLE SOD 40 MG DELAYED RELEASE TAB PO SCH ×2 (08:51→21:53)
[2016-12-11] MEDS: predniSONE 10 MG TAB PO SCH (08:51)
[2016-12-11] MEDS: HYDROCORTISONE ACETATE 25 MG SUPP RECTAL SCH (08:51)
[2016-12-11] MEDS: LACTOBACILLUS ACIDOPHILUS TAB PO SCH ×2 (08:51→21:53)
[2016-12-11] MEDS: CHOLECALCIFEROL (VIT D3) 1000 UNIT TAB PO SCH (08:51)
[2016-12-11] MEDS: SEVELAMER CARBONATE 800 MG TAB PO SCH ×3 (08:51→16:40)
[2016-12-11] MEDS: POTASSIUM CHLORIDE 20 MEQ CONTROLLED RELEASE TAB PO SCH (08:51)
--- NOTE | 2016-12-11 09:08 | HHI.NPPN ---
Subjective General Problems: Anemia Renal Failure: Acute Interval History Had AVF placed yesterday, I am unable to hear a bruit over it. Communicated with Dr. Pyle. Review of Systems General Constitutional: Fatigue Respiratory Lungs: Cough, Sputum Objective Data Data Vital Signs Date Time Temp Pulse Resp B/P (MAP) Pulse Ox O2 Delivery O2 Flow Rate FiO2 12/11/16 08:06 98.3 96 18 96/60 (72) 93 12/11/16 04:36 100 12/11/16 04:00 98.0 92 18 106/63 (77) 95 12/11/16 02:10 99.6 12/11/16 00:40 100.0 121 16 102/60 (74) 92 12/10/16 20:41 Nasal Cannula 1.00 12/10/16 20:00 100.3 114 18 100/62 (75) 94 12/10/16 17:30 96 Nasal Cannula 1.00 12/10/16 16:15 105 16 90/56 (67) 96 Nasal Cannula 2 12/10/16 16:00 98.8 107 16 96/62 (73) 96 Nasal Cannula 2 12/10/16 16:00 99.5 116 24 90/54 (66) 95 12/10/16 15:45 103 15 88/58 (68) 96 Nasal Cannula 2 12/10/16 15:30 105 15 85/57 (66) 96 Nasal Cannula 2 12/10/16 15:15 104 15 77/52 (60) 95 Nasal Cannula 2 12/10/16 15:00 105 15 83/51 (62) 95 Nasal Cannula 2 12/10/16 14:45 98.4 107 16 83/48 (60) 98 Nasal Cannula 3 12/10/16 12:00 98.3 116 22 96/55 (69) 94 -: 12/09/16 0700 12/09/16 0700 Tubes & Lines: Perma-Cath, Herbert Physical Exam General Appearance: Well Developed, Well Nourished, No Acute Distress, Comfortable Eyes Eye Exam: Pupils Equal, Pupils Reactive Throat Throat Exam: Oral Mucosa Valentine & Moist Neck Neck Exam: Neck Supple Pulmonary Resp Exam: Clear Bilaterally, Breath Sounds Equal, Decreased Bases Cardiology CV Exam: Regular, Normal Sinus Rhythm, Good Perfusion Gastrointestinal/Abdomen GI Exam: Soft, Non-Tender, Bowel Sounds Present Musculoskeletal MS Exam: Joints Intact, Normal Tone, Good Strength Integumentary Skin Exam: Clear, Warm, Dry, Intact Extremeties Extremities Exam: No Edema, Pedal Pulses Palpable Neurologic Neuro Exam: Alert, Awake, Oriented, Speech Clear Psychiatric Psych Exam: Appropriate Responses Assessment/Plan Discussed Condition With: Patient Assessment Summary: SEJAL/Acute Renal Failure, Anemia of CKD Electrolyte Assessment: Hypocalcemia, Hypokalemia, Metabolic Acidosis Problem List: (1) Chronic kidney disease, stage 5 ICD Codes: N18.5 - Chronic kidney disease, stage 5 Plan: patient likely has reached ESRD. Continue dialysis support. s/p AVF surgery, unfortunately may not have been successful, may need AVG. Monitor urine output and renal function. Renal biopsy revealed severe interstitial fibrosis, tubular atrophy and findings suggestive MPGN, with significant global glomerular sclerosis. (2) Acidosis ICD Codes: E87.2 - Acidosis Status: Acute Plan: Improved. (3) Hypokalemia ICD Codes: E87.6 - Hypokalemia Status: Acute Plan: imrpoved slighlty he may have a proximal tubule disorder ordered IV and PO replacement follow labs 24 hour urine for potassium and protein has been ordered (4) GI bleed ICD Codes: K92.2 - Gastrointestinal hemorrhage, unspecified Status: Acute Plan: Hb improved GI following, endoscopy is planned. On Protonix. (5) Hypocalcemia ICD Codes: E83.51 - Hypocalcemia Plan: Treat hyperphosphatemia, on Sevelamer. PTH around 130, slightly lower than the range desired for stage V CkD, no need for Calcitriol. (6) Pneumonia ICD Codes: J18.9 - Pneumonia, unspecified organism Status: Acute Plan: seen by pulmonary. Underwent bronchoscopy. All the antibiotics appear to have been stopped. Had a repeat CXR today. Problem Qualifiers (1) GI bleed: (2) Pneumonia: Jim Zuluaga MD Dec 11, 2016 09:08
--- NOTE | 2016-12-11 09:13 | MP ---
cc: BUFFY PYLE MD DATE OF SURGERY 12/10/2016 PREOPERATIVE DIAGNOSIS End-stage renal disease. Needs dialysis access. POSTOPERATIVE DIAGNOSIS End-stage renal disease. Needs dialysis access. PROCEDURE Left brachiobasilic arteriovenous fistula (first stage). ATTENDING SURGEON Buffy Pyle MD ANESTHESIA General. INDICATIONS Mr. Fonseca is a 55-year-old gentleman who has new onset dialysis dependence. He needs dialysis access as he is currently dialyzing through a catheter. Preoperative imaging suggests he had an adequate left basilic vein. DESCRIPTION OF PROCEDURE Informed consent obtained from the patient. He was taken to the operating room and placed supine on the operating room table. An appropriate time-out was taken to ensure the patient's identy, the operative site and planned procedure. 1 gram of vancomycin was initiated prior to the skin incision and will be discontinued after a single preoperative dose. Vancomycin was chosen because of the patient's end-stage renal disease and dialysis dependence. Everyone in the room agreed with the time-out and we proceeded. His left arm was prepped and draped. Incision was made over the distal aspect of the upper arm, carried down to the subcutaneous tissue with electrocautery. The basilic vein was identified and dissected free. Side branches were ligated with 3-0 silk. The brachial artery was identified on the medial aspect of the incision and dissected free for several cm. The distal aspect of the basilic vein was divided and the distal end was oversewn with 2-0 silk suture. A Miguel Angel bulldog was placed on the proximal end after it had been marked for orientation. The patient was systemically heparinized with 3000 units of IV heparin. Proximal and distal control of the brachial artery were obtained with profunda clamps and a longitudinal arteriotomy was made with an 11 blade and extended with Sandro scissors. The vein was spatulated and sewn end-to-side with running 6-0 Prolene suture. The wound was flushed and hemostatic. There is a thrill on the fistula, albeit somewhat weak and a nice Doppler palpable to the wrist. The wound was made hemostatic and infiltrated with Marcaine and closed with 2-0 Polysorb and 4-0 Monocryl. The sponge and needle counts were correct at the end of the case. I was present, scrubbed and performed the entire procedure. Buffy Pyle MD RJDanielle/SSB /4:16 PM /8:57 AM
--- NOTE | 2016-12-11 09:18 | HHI.GIFU ---
Subjective Remarks Resting in bed. States he is breathing much better. He did have a fever overnight, but states she is doing better this morning. Still having small amount of bright red blood per rectum when he wipes after bowel movements. Would like to proceed with colonoscopy. (April Melgar) Objective Vitals I&O Vital Signs Date Time Temp Pulse Resp B/P (MAP) Pulse Ox O2 Delivery O2 Flow Rate FiO2 12/11/16 08:06 98.3 96 18 96/60 (72) 93 12/11/16 04:36 100 12/11/16 04:00 98.0 92 18 106/63 (77) 95 12/11/16 02:10 99.6 12/11/16 00:40 100.0 121 16 102/60 (74) 92 12/10/16 20:41 Nasal Cannula 1.00 12/10/16 20:00 100.3 114 18 100/62 (75) 94 12/10/16 17:30 96 Nasal Cannula 1.00 12/10/16 16:15 105 16 90/56 (67) 96 Nasal Cannula 2 12/10/16 16:00 98.8 107 16 96/62 (73) 96 Nasal Cannula 2 12/10/16 16:00 99.5 116 24 90/54 (66) 95 12/10/16 15:45 103 15 88/58 (68) 96 Nasal Cannula 2 12/10/16 15:30 105 15 85/57 (66) 96 Nasal Cannula 2 12/10/16 15:15 104 15 77/52 (60) 95 Nasal Cannula 2 12/10/16 15:00 105 15 83/51 (62) 95 Nasal Cannula 2 12/10/16 14:45 98.4 107 16 83/48 (60) 98 Nasal Cannula 3 12/10/16 12:00 98.3 116 22 96/55 (69) 94 I/O 12/10/16 12/10/16 12/10/16 12/11/16 12/11/16 12/11/16 07:00 15:00 23:00 07:00 15:00 23:00 Intake Total 240 ml 650 ml 1180 ml 240 ml Output Total 1320 ml 300 ml Balance 240 ml -670 ml 1180 ml -60 ml Intake Oral 240 ml 680 ml 240 ml IV Total 500 ml Other 650 ml Output Urine Total 300 ml Hemodialysis 1300 ml Estimated Blood Loss 20 ml # Voids 2 1 # Bowel Movements 0 0 Laboratory Date/Time Source Procedure Growth Status 11/22/16 15:20 Blood Peripheral Aerobic Blood Culture - Final NO GROWTH IN 5 DAYS Complete 11/22/16 15:20 Blood Peripheral Anaerobic Blood Culture - Final NO GROWTH IN 5 DAYS Complete 11/22/16 20:30 Stool Stool Cryptosporidium Exam - Final NEGATIVE - NO CRYPTOSPORIDIUM ANTIGEN... Complete 11/22/16 20:30 Stool Stool Stool Pus (MANOLO) - Final FEW WBC'S Complete 11/22/16 20:30 Stool Stool Giardia Antigen (MANOLO) - Final NEGATIVE - NO GIARDIA ANTIGEN DETECTE... Complete 12/05/16 11:41 Bronchial Washings Right Upper Lobe Fungal Smear - Final NO FUNGAL ELEMENTS SEEN. Resulted 12/05/16 11:41 Bronchial Washings Right Upper Lobe Fungal Culture Pending Resulted 11/25/16 12:00 Urine Catheterized Urine Urine Culture - Final NO GROWTH IN 48 HOURS. Complete Imaging Last Impressions Chest X-Ray 12/08/16 0000 Signed Impressions: Service Date/Time: Thursday, December 08, 2016 09:27 - CONCLUSION: No significant change has occurred. Vasu Barrientos MD Upper Extremity Ultrasound 12/04/16 0000 Signed Impressions: Service Date/Time: November 18:26 - CONCLUSION: Venous mapping as delineated above. The cephalic veins are abnormal bilaterally. Caio Villalpando MD Renal Biopsy CT 12/02/16 1350 Signed Impressions: Service Date/Time: Friday, December 02, 2016 08:33 - CONCLUSION: Uncomplicated CT guided biopsy of the right kidney for function. Mustapha Vela Jr., MD Catheter Placement X-Ray 11/28/16 0000 Signed Impressions: Service Date/Time: Monday, November 28, 2016 15:57 - CONCLUSION: Uncomplicated PermaCath placement as above. Mustapha Vela Jr., MD Chest CT 11/26/16 0000 Signed Impressions: Service Date/Time: Saturday, November 26, 2016 13:54 - CONCLUSION: 1. Dense consolidative right upper lobe pneumonia on a background of severe emphysema with cavitary foci within the consolidated areas. 2. There is patchy right middle and lower lobe pneumonia as well. 3. Bilateral effusions right greater than left. 4. Associated mediastinal adenopathy. Vasu Barrientos MD Renal Ultrasound 11/22/16 0000 Signed Impressions: Service Date/Time: Tuesday, November 22, 2016 17:14 - CONCLUSION: Mild pelvocaliectasis right kidney not present previously. Obdulia Garcia MD Physical Exam HEENT: Normocephalic. CHEST: Diminished throughout, 1L NC. CARDIAC: Regular, tachycardic- HR 100 ABDOMEN: Soft, nondistended, nontender; no hepatosplenomegaly; bowel sounds are present. EXTREMITIES: No clubbing, cyanosis, or edema. SKIN: Normal; no rash; no jaundice. ABSTRACT WRITER: No focal deficits; alert and oriented x 3 (April Melgar) Assessment and Plan Plan ASSESSMENT: - Anemia, likely multifactorial. Rectal bleeding, ARF. S/P 4 units PRBC. HH 8.6 /26.4. PP - Rectal bleeding. Still having BRBPR, small amount, when he wipes after bowel movements. Sometimes, this is a copious amount of blood filling the toilet. Plan is for egd/colonoscopy when stable. - Hemorrhoids. hydrocortisone suppositories - Diarrhea. CDiff negative. No enteric pathogens, negative for cryptosporidium , negative for giardia. Few wbc. Probiotics. IMPROVED. - ARF Renal following, HD. S/P AV fistula placement - Resp. Insufficiency with multilobular PNA/severe emphysema, per pulmonary S/P Bronchoscopy (12/05/16) - Leukocytosis, Fever. Had low grade fever over night. WBC 13.1. Rpt CXR this am pending. - Weight loss- 10-15 ibs in the last 3 weeks due to poor appetite and Po intake - Hypokalemia- Secondary to above, replaced by attending - Hx of CABG, COPD per attending PLAN: - ? EGD/Colonoscopy in am if medically cleared- Pt's breathing is much improved and he would like to proceed, as he is still having rectal bleeding. If possible, it would be better to do this as inpatient prior to discharge if medically stable, as he has severe emphysema and is a high risk for anesthesia. Will d/w Dr. Xavier - Heart healthy diet - Cont. PPI - Cont. Hydrocortisone supp. - Monitor HH - Transfuse as necessary - Supportive care - Further recommendations to follow based on results of above - Patient seen and examined by Dr. Garcia and myself and this note is written on his behalf. (April Melgar) Plan Patient was seen and examined, agree with the above notes, patient feel that he is still 2 weeks to have the procedure done and he was told by Dr. Shankar to wait until there is more optimize of his respiratory status, we will wait until we have clearance from pulmonary to proceed with the colonoscopy and endoscopy meanwhile we'll continue current supportive care (Duncan Garcia MD) April Melgar Dec 11, 2016 09:18 Duncan Garcia MD Dec 11, 2016 21:54
--- NOTE | 2016-12-11 10:06 | RADRPT ---
EXAM DATE/TIME: 12/11/2016 07:56 [facility] COMPARISON: CHEST SINGLE AP, December 05, 2016, 11:54. CHEST PA & LAT, December 08, 2016, 9:27. INDICATIONS : Pneumonia. Fever last night. MEDICAL HISTORY : Myocardial infarction. Hypertension. Osteoporosis. Neck pain. Dizziness. Chest pain. COPD. Asthma. Dy spnea. Ulcer. Renal failure. Urinary tract infection. Polyuria SURGICAL HISTORY : Three vessel bypass. Bone marrow harvest. ENCOUNTER: Initial ACUITY: 1 month PAIN SCORE: 0/10 LOCATION: chest FINDINGS: Extensive consolidation involving the right upper lung field is again noted and unchanged. A right i nternal jugular tunnel dialysis catheter has its tips in the superior vena cava and right atrium and is unchanged. Underlying emphysematous changes are noted bilaterally. No pulmonary edema is noted. The heart is stable. Median sternotomy wires are noted status post cardiac surgery. CONCLUSION: 1. Persistent extensive consolidation involving the right upper lung field. 2. Underlying emphysematous changes bilaterally. Clarence Santos MD on December 11, 2016 at 9:50 Board Certified Radiologist. This report was verified electronically.
--- NOTE | 2016-12-11 11:17 | HHI.PR ---
Subjective Remarks Follow up for ESRD, Anemia, COPD. Patient is currently doing well. He underwent AV fistula placement on 12/10/2016. He was hypotensive yesterday. Currently patient is doing well. We discussed about possible EGD/colonoscopy tomorrow. However patient does not feel he can undergo EGD colonoscopy at this point. Objective Vitals Vital Signs Date Time Temp Pulse Resp B/P (MAP) Pulse Ox O2 Delivery O2 Flow Rate FiO2 12/11/16 09:46 94 Nasal Cannula 1.50 12/11/16 08:06 98.3 96 18 96/60 (72) 93 12/11/16 04:36 100 12/11/16 04:00 98.0 92 18 106/63 (77) 95 12/11/16 02:10 99.6 12/11/16 00:40 100.0 121 16 102/60 (74) 92 12/10/16 20:41 Nasal Cannula 1.00 12/10/16 20:00 100.3 114 18 100/62 (75) 94 12/10/16 17:30 96 Nasal Cannula 1.00 12/10/16 16:15 105 16 90/56 (67) 96 Nasal Cannula 2 12/10/16 16:00 98.8 107 16 96/62 (73) 96 Nasal Cannula 2 12/10/16 16:00 99.5 116 24 90/54 (66) 95 12/10/16 15:45 103 15 88/58 (68) 96 Nasal Cannula 2 12/10/16 15:30 105 15 85/57 (66) 96 Nasal Cannula 2 12/10/16 15:15 104 15 77/52 (60) 95 Nasal Cannula 2 12/10/16 15:00 105 15 83/51 (62) 95 Nasal Cannula 2 12/10/16 14:45 98.4 107 16 83/48 (60) 98 Nasal Cannula 3 12/10/16 12:00 98.3 116 22 96/55 (69) 94 I/O 12/10/16 12/10/16 12/10/16 12/11/16 12/11/16 12/11/16 06:59 14:59 22:59 06:59 14:59 22:59 Intake Total 240 ml 650 ml 1180 ml 240 ml Output Total 1320 ml 300 ml Balance 240 ml -670 ml 1180 ml -60 ml Intake Oral 240 ml 680 ml 240 ml IV Total 500 ml Other 650 ml Output Urine Total 300 ml Hemodialysis 1300 ml Estimated Blood Loss 20 ml # Voids 2 1 # Bowel Movements 0 0 Result Diagram: 12/09/16 0700 12/09/16 0700 Imaging Last Impressions Chest X-Ray 12/08/16 0000 Signed Impressions: Service Date/Time: Thursday, December 08, 2016 09:27 - CONCLUSION: No significant change has occurred. Vasu Barrientos MD Upper Extremity Ultrasound 12/04/16 0000 Signed Impressions: Service Date/Time: November 18:26 - CONCLUSION: Venous mapping as delineated above. The cephalic veins are abnormal bilaterally. Caio Villalpando MD Renal Biopsy CT 12/02/16 1350 Signed Impressions: Service Date/Time: Friday, December 02, 2016 08:33 - CONCLUSION: Uncomplicated CT guided biopsy of the right kidney for function. Mustapha Vela Jr., MD Catheter Placement X-Ray 11/28/16 0000 Signed Impressions: Service Date/Time: Monday, November 28, 2016 15:57 - CONCLUSION: Uncomplicated PermaCath placement as above. Mustapha Vela Jr., MD Chest CT 11/26/16 0000 Signed Impressions: Service Date/Time: Saturday, November 26, 2016 13:54 - CONCLUSION: 1. Dense consolidative right upper lobe pneumonia on a background of severe emphysema with cavitary foci within the consolidated areas. 2. There is patchy right middle and lower lobe pneumonia as well. 3. Bilateral effusions right greater than left. 4. Associated mediastinal adenopathy. Vasu Barrientos MD Renal Ultrasound 11/22/16 0000 Signed Impressions: Service Date/Time: Tuesday, November 22, 2016 17:14 - CONCLUSION: Mild pelvocaliectasis right kidney not present previously. Obdulia Garcia MD Objective Remarks GENERAL: AOX3, NAD. SKIN: Warm and dry. HEAD: Normocephalic. EYES: No scleral icterus. No injection or drainage. NECK: Supple, trachea midline. No JVD or lymphadenopathy. CARDIOVASCULAR: Regular rate and rhythm without murmurs, gallops, or rubs. RESPIRATORY: Breath sounds equal bilaterally. No accessory muscle use. GASTROINTESTINAL: Abdomen soft, non-tender, nondistended. MUSCULOSKELETAL: No cyanosis, or edema. BACK: Nontender without obvious deformity. No CVA tenderness. Procedures 11/28/2016 Right Internal Jugular Hemodialysis Catheter Tunneled Placement dual lumen 12/02/2016 Successful right renal biopsy for function. Gelfoam and thrombin utilized. No bleeding on post CT A/P Problem List: (1) Sepsis ICD Code: A41.9 - Sepsis, unspecified organism Status: Acute (2) Acute renal failure ICD Code: N17.9 - Acute kidney failure, unspecified Status: Acute (3) Pneumonia ICD Code: J18.9 - Pneumonia, unspecified organism Status: Acute (4) Coronary artery disease ICD Code: I25.10 - Coronary artery disease Status: Acute (5) Anemia ICD Code: D64.9 - Anemia Status: Acute (6) Hematochezia ICD Code: K92.1 - Melena Status: Acute (7) Hypokalemia ICD Code: E87.6 - Hypokalemia Status: Acute Assessment and Plan 55-year-old man with Sepsis on admission suspect secondary to right multilobular pneumonia-resolved -Completed cefepime 1 g every 12 hours on 12/06/16 ESRD - Per nephrology will need [facility] dialysis(MWF), - Patient underwent AV fistula surgery on 12/10/2016. However, patient may need AV graft. - US kidney/renal/bladder ordered and reviewed showing mild pelvocaliectasis right kidney. 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 Chronic obstructive pulmonary disease respiratory failure - Continue scheduled and PRN duonebs. - Supplemental O2 to keep sats >88%. - pulmonary medicine following: solumedrol 20 mg BID x 2 days (12/07-12/09), CXR for 12/08 ordered and pending -S/P bronchoscopy 12/05/16 - cytology pathology report shows no malignancy. DVT Prophylaxis: SCDs/TEDs. Problem Qualifiers (1) Sepsis: (2) Acute renal failure: (3) Pneumonia: (4) Anemia: Hever Xavier DO Dec 11, 2016 11:17
--- NOTE | 2016-12-11 12:48 | PD.VS.PN ---
Subjective POD #: 1 Procedure(s): L brachiobasilic AVF (1st stage) Subjective/Hospital Course Pt c/o fever last night Pt c/o mild discomfort to his L UE (incision) Incision I/C/D (Lissette Fernando) Objective Vitals/I&O Date Time Temp Pulse Resp B/P (MAP) Pulse Ox O2 Delivery O2 Flow Rate FiO2 12/11/16 12:23 98.2 109 19 103/65 (78) 96 12/11/16 09:46 94 Nasal Cannula 1.50 12/11/16 08:06 98.3 96 18 96/60 (72) 93 12/11/16 04:36 100 12/11/16 04:00 98.0 92 18 106/63 (77) 95 12/11/16 02:10 99.6 12/11/16 00:40 100.0 121 16 102/60 (74) 92 12/10/16 20:41 Nasal Cannula 1.00 12/10/16 20:00 100.3 114 18 100/62 (75) 94 12/10/16 17:30 96 Nasal Cannula 1.00 12/10/16 16:15 105 16 90/56 (67) 96 Nasal Cannula 2 12/10/16 16:00 98.8 107 16 96/62 (73) 96 Nasal Cannula 2 12/10/16 16:00 99.5 116 24 90/54 (66) 95 12/10/16 15:45 103 15 88/58 (68) 96 Nasal Cannula 2 12/10/16 15:30 105 15 85/57 (66) 96 Nasal Cannula 2 12/10/16 15:15 104 15 77/52 (60) 95 Nasal Cannula 2 12/10/16 15:00 105 15 83/51 (62) 95 Nasal Cannula 2 12/10/16 14:45 98.4 107 16 83/48 (60) 98 Nasal Cannula 3 12/11/16 12/11/16 12/11/16 07:00 15:00 23:00 Intake Total 240 ml Output Total 300 ml Balance -60 ml Exam: GENERAL: A&OX3,NAD,GCS15 SKIN: Warm and Dry/ Incision to L UE I/C/D Upper extremities warm w/ motor intact Pt denies hand pain/numbness Bilateral Radial pulses palpable Non palpable thrill near AVF noted Laboratory Date/Time Source Procedure Growth Status 11/22/16 15:20 Blood Peripheral Aerobic Blood Culture - Final NO GROWTH IN 5 DAYS Complete 11/22/16 15:20 Blood Peripheral Anaerobic Blood Culture - Final NO GROWTH IN 5 DAYS Complete 11/22/16 20:30 Stool Stool Cryptosporidium Exam - Final NEGATIVE - NO CRYPTOSPORIDIUM ANTIGEN... Complete 11/22/16 20:30 Stool Stool Stool Pus (MANOLO) - Final FEW WBC'S Complete 11/22/16 20:30 Stool Stool Giardia Antigen (MANOLO) - Final NEGATIVE - NO GIARDIA ANTIGEN DETECTE... Complete 12/05/16 11:41 Bronchial Washings Right Upper Lobe Fungal Smear - Final NO FUNGAL ELEMENTS SEEN. Resulted 12/05/16 11:41 Bronchial Washings Right Upper Lobe Fungal Culture Pending Resulted 11/25/16 12:00 Urine Catheterized Urine Urine Culture - Final NO GROWTH IN 48 HOURS. Complete (Lissette Fernando) Assessment and Plan Assessment: (1) Chronic kidney disease, stage 5 (2) Chronic kidney disease Status: Acute Plan ESRD Pt w/ new onset HD and needs permanent access HD -MWF routine Pt S/P L brachiobasilic AVF (1st stage)- POD 1 Plan Pt w/ non palpable thrill near L UE AVF Will have patient f/u in 3 weeks (out patient) to allow for maturation of access Will obtain an out patient AVF duplex in 3W- pending results will determine next plan of action Discussed with patient Arranged out patient follow up Lissette [facility]OR[facility] [phone] Discharge Planning Pt clear for d/c from a vascular standpoint Arranged for OP F/U (Lissette Fernando) Plan Small vein - may require prosthetic access ultimately but will wait until infectious issues resolved. Can f/u as outpatient. (Clarence Pyle MD) Lissette Fernando Dec 11, 2016 12:48 Clarence Pyle MD Dec 11, 2016 13:00
--- NOTE | 2016-12-11 18:27 | HHI.PR ---
Subjective Remarks Feeling better.Had AV fistula done . No chest pain. CXR: improved Right Pneumonia. On O2 at 1 L . Seems stable Objective Vital Signs Date Time Temp Pulse Resp B/P (MAP) Pulse Ox O2 Delivery O2 Flow Rate FiO2 12/11/16 17:44 93 Nasal Cannula 1.50 12/11/16 16:28 98.6 117 19 119/71 (87) 93 12/11/16 12:23 98.2 109 19 103/65 (78) 96 12/11/16 09:46 94 Nasal Cannula 1.50 12/11/16 08:06 98.3 96 18 96/60 (72) 93 12/11/16 08:00 Nasal Cannula 1.00 12/11/16 04:36 100 12/11/16 04:00 98.0 92 18 106/63 (77) 95 12/11/16 02:10 99.6 12/11/16 00:40 100.0 121 16 102/60 (74) 92 12/10/16 20:41 Nasal Cannula 1.00 12/10/16 20:00 100.3 114 18 100/62 (75) 94 I/O 12/10/16 12/10/16 12/10/16 12/11/16 12/11/16 12/11/16 07:00 15:00 23:00 07:00 15:00 23:00 Intake Total 240 ml 650 ml 1180 ml 240 ml Output Total 1320 ml 300 ml Balance 240 ml -670 ml 1180 ml -60 ml Intake Oral 240 ml 680 ml 240 ml IV Total 500 ml Other 650 ml Output Urine Total 300 ml Hemodialysis 1300 ml Estimated Blood Loss 20 ml # Voids 2 1 # Bowel Movements 0 0 Result Diagram: 12/09/16 0712/09/16 07 Objective Remarks GENERAL: This is a middle-aged averagely built white male who is alert and in no acute distress. HEAD, EYES, EARS, NOSE, THROAT: Head normocephalic. The pupils are reactive. Tongue is moist. Throat is clear. Nasal mucosa is clear. NECK: The neck is supple. No bruits. No thyroid enlargement. No lymphadenopathy. CHEST: Equal movements. Occ crackles lower chest. HEART: Heart sounds are regular. S1 and S2. No murmur. ABDOMEN: Abdomen is soft and protuberant. No masses or tenderness. EXTREMITIES: No edema. No calf tenderness. NEUROLOGIC: Reflexes are normal. No focal deficits. SKIN: Dry and cool. Assessment and Plan Assessment and Plan IMPRESSION: 1. Extensive right lung pneumonia with hypoxemia. 2. Chronic kidney disease with acute renal failure. 3. COPD with emphysema and chronic bronchitis. 4. History of coronary artery bypass grafting. Plan : 1. IS q3h at bedside 2. O2 at 1 L.and wean to RA 3. Nebs qid , duoneb 4. BMP,CXR CBC in am. 5.Cont Prednisone 10 mg daily 6. Dialysis as planned. 7. PT and OT. Alison Wilson MD Dec 11, 2016 18:27
[2016-12-12] VITALS (8 sets, daily range): BP systolic 98–122; BP diastolic 61–77; PULSE 79–107; RESP 16–20; TEMP 98–99; O2SAT 94–100
[2016-12-12] MEDS: HYDROCORTISONE ACETATE 25 MG SUPP RECTAL SCH (09:00)
--- NOTE | 2016-12-12 09:28 | HHI.NPPN ---
Subjective General Problems: Anemia Renal Failure: Acute Interval History Seen during dialysis. No new concerns. He has vascular follow up appointment for AVF revision vs AV graft placement. (Milla Pack) Review of Systems General Constitutional: Fatigue (Milla Pack) Respiratory Lungs: Cough, Sputum (Milla Pack) Objective Data Data Vital Signs Date Time Temp Pulse Resp B/P (MAP) Pulse Ox O2 Delivery O2 Flow Rate FiO2 12/12/16 04:00 98.7 106 20 122/77 (92) 94 12/12/16 00:00 98.2 107 20 102/67 (79) 95 12/11/16 20:00 98.4 109 20 110/61 (77) 93 12/11/16 20:00 116 12/11/16 19:00 Nasal Cannula 1.50 12/11/16 17:44 93 Nasal Cannula 1.50 12/11/16 16:28 98.6 117 19 119/71 (87) 93 12/11/16 12:23 98.2 109 19 103/65 (78) 96 12/11/16 09:46 94 Nasal Cannula 1.50 (Milla Pack) -: 12/09/16 0700 12/09/16 0700 Imaging Last 72 hours Impressions Chest X-Ray 12/11/16 0600 Signed Impressions: Service Date/Time: December 07:56 - CONCLUSION: 1. Persistent extensive consolidation involving the right upper lung field. 2. Underlying emphysematous changes bilaterally. Clarence Santos MD Tubes & Lines: Perma-Cath, Herbert (Milla Pack) Physical Exam General Appearance: Well Developed, Well Nourished, No Acute Distress, Comfortable (Milla Pack) Eyes Eye Exam: Pupils Equal, Pupils Reactive (Milla Pack) Throat Throat Exam: Oral Mucosa [place] & Moist (Milla Pack) Neck Neck Exam: Neck Supple (Milla Pack) Pulmonary Resp Exam: Clear Bilaterally, Breath Sounds Equal, No Distress, Decreased Bases (Milla Pack) Cardiology CV Exam: Regular, Normal Sinus Rhythm, Good Perfusion (Milla Pack) Gastrointestinal/Abdomen GI Exam: Soft, Non-Tender, Bowel Sounds Present (Milla Pack) Musculoskeletal MS Exam: Joints Intact, Normal Gait, Normal Tone, Good Strength (Milla PackP) Integumentary Skin Exam: Clear, Warm, Dry, Intact (Milla PackP) Extremeties Extremities Exam: No Edema, Pedal Pulses Palpable (Milla Pack SAWMILLING OPERATOR) Neurologic Neuro Exam: Alert, Awake, Oriented, Speech Clear, Moving All Extremities (Milla PackP) Psychiatric Psych Exam: Appropriate Responses (Milla Pack) Assessment/Plan Discussed Condition With: Patient Assessment Summary: SEJAL/Acute Renal Failure, Anemia of CKD Electrolyte Assessment: Hypocalcemia, Hypokalemia, Metabolic Acidosis Problem List: (1) Chronic kidney disease, stage 5 ICD Codes: N18.5 - Chronic kidney disease, stage 5 Plan: patient likely has reached ESRD. Renal biopsy revealed severe interstitial fibrosis, tubular atrophy and findings suggestive MPGN, with significant global glomerular sclerosis. Continue dialysis support MWF Seen during dialysis today on a 3K, 300 BFR, goal 1500 ml s/p AVF surgery, no palpable thrill; vascular aware; he has appointment on 01/02 to discuss possible AVG placement monitor renal function, replace electrolytes as needed he is currently non oliguric plan is for him to enter transitional HD program at [place]. When he is approved he can be discharged, may take several weeks. Will keep in touch with case management regarding insurance (medicaid) status. (2) Hypokalemia ICD Codes: E87.6 - Hypokalemia Status: Acute Plan: potassium has corrected he may have a proximal tubule disorder follow labs, he requires frequent replacement 24 hour urine for potassium shows he has renal wasting (3) GI bleed ICD Codes: K92.2 - Gastrointestinal hemorrhage, unspecified Status: Acute Plan: Hb improved GI following, endoscopy is planned, possibly next week On Protonix. (4) Hypocalcemia ICD Codes: E83.51 - Hypocalcemia Plan: Continue to reat hyperphosphatemia, on Sevelamer. PTH around 130, less than the range desired for stage V CKD, Calcitriol was stopped (5) Pneumonia ICD Codes: J18.9 - Pneumonia, unspecified organism Status: Acute Plan: seen by pulmonary. Underwent bronchoscopy. he is off antibiotics at this time (6) Anemia ICD Codes: D64.9 - Anemia Status: Acute Plan: continue epogen with dialysis no evidence of iron deficiency transfuse if necessary (7) Acidosis ICD Codes: E87.2 - Acidosis Status: Acute Plan: corrected, monitor (Milla Pack) Plan patient was seen and examined. Agree with above assessment and plan. (Jim Zuluaga MD) Problem Qualifiers (1) GI bleed: (2) Pneumonia: (3) Anemia: Milla Pack Dec 12, 2016 09:28 Jim Zuluaga MD Dec 12, 2016 13:54
[2016-12-12] MEDS: SODIUM CHLOR 0.9% 1000 ML INJ 1,000 ML OTHER PRN (12:00)
[2016-12-12] MEDS: SEVELAMER CARBONATE 800 MG TAB PO SCH ×3 (12:00→18:43)
[2016-12-12] MEDS: HEPARIN SODIUM - IV 10,000 UNITS/10 ML VIAL PRN (12:00)
[2016-12-12] MEDS: GENTAMICIN SULFATE (DIALYSIS USE ONLY) 20 MG/2 ML VIAL IV PRN (12:00)
[2016-12-12] MEDS: POTASSIUM CHLORIDE 20 MEQ CONTROLLED RELEASE TAB PO SCH (13:24)
[2016-12-12] MEDS: CHOLECALCIFEROL (VIT D3) 1000 UNIT TAB PO SCH (13:24)
[2016-12-12] MEDS: predniSONE 10 MG TAB PO SCH (13:24)
[2016-12-12] MEDS: PANTOPRAZOLE SOD 40 MG DELAYED RELEASE TAB PO SCH ×2 (13:24→22:41)
[2016-12-12] MEDS: LACTOBACILLUS ACIDOPHILUS TAB PO SCH ×2 (13:24→22:41)
--- NOTE | 2016-12-12 15:06 | HHI.PR ---
Subjective Remarks Feeling better.Had AV fistula done . Has a cough and copious secretions. CXR: improved Right Pneumonia. On O2 at 1 L . Seems stable Objective Vital Signs Date Time Temp Pulse Resp B/P (MAP) Pulse Ox O2 Delivery O2 Flow Rate FiO2 12/12/16 13:43 99.0 103 17 99/65 (76) 98 12/12/16 09:26 98.1 97 18 116/71 (86) 96 12/12/16 04:00 98.7 106 20 122/77 (92) 94 12/12/16 00:00 98.2 107 20 102/67 (79) 95 12/11/16 20:00 98.4 109 20 110/61 (77) 93 12/11/16 20:00 116 12/11/16 19:00 Nasal Cannula 1.50 12/11/16 17:44 93 Nasal Cannula 1.50 12/11/16 16:28 98.6 117 19 119/71 (87) 93 I/O 12/11/16 12/11/16 12/11/16 12/12/16 12/12/16 12/12/16 07:00 15:00 23:00 07:00 15:00 23:00 Intake Total 240 ml 720 ml Output Total 300 ml 350 ml 375 ml 2600 ml Balance -60 ml 370 ml -375 ml -2600 ml Intake Oral 240 ml 720 ml Output Urine Total 300 ml 350 ml 375 ml 600 ml Hemodialysis 2000 ml # Voids 2 # Bowel Movements 0 0 Result Diagram: 12/09/16 0700 12/09/16 0700 Objective Remarks GENERAL: This is a middle-aged averagely built white male who is alert and in no acute distress. HEAD, EYES, EARS, NOSE, THROAT: Head normocephalic. The pupils are reactive. Tongue is moist. Throat is clear. Nasal mucosa is clear. NECK: The neck is supple. No bruits. No thyroid enlargement. No lymphadenopathy. CHEST: Equal movements. Occ crackles lower chest.Wheeze scattered. HEART: Heart sounds are regular. S1 and S2. No murmur. ABDOMEN: Abdomen is soft and protuberant. No masses or tenderness. EXTREMITIES: No edema. No calf tenderness. NEUROLOGIC: Reflexes are normal. No focal deficits. SKIN: Dry and cool. Assessment and Plan Assessment and Plan IMPRESSION: 1. Extensive right lung pneumonia with hypoxemia. 2. Chronic kidney disease with acute renal failure. 3. COPD with emphysema and chronic bronchitis. 4. History of coronary artery bypass grafting. Plan : 1. IS q3h at bedside 2. O2 at 1 L.and wean to RA 3. Nebs qid , duoneb 4. BMP, CBC in am. 5. Prednisone 10 mg daily 6. Dialysis as planned. 7. PT and OT. Alison Wilson MD Dec 12, 2016 15:06
[2016-12-12 19:22] LABS: BICARBONATE 30.3 MEQ/L (21.0-32.0); POTASSIUM 3.9 MEQ/L (3.5-5.1)
--- NOTE | 2016-12-12 20:04 | HHI.PR ---
Subjective Remarks Follow up for ESRD, Anemia, COPD. Patient is feeling much better today. He tolerated dialysis well today. Denies any acute concerns. No fever, chills. Objective Vitals Vital Signs Date Time Temp Pulse Resp B/P (MAP) Pulse Ox O2 Delivery O2 Flow Rate FiO2 12/12/16 17:41 97 Nasal Cannula 2.00 12/12/16 16:16 98.6 79 16 98/61 (73) 97 12/12/16 13:43 99.0 103 17 99/65 (76) 98 12/12/16 13:24 95 Nasal Cannula 2.00 12/12/16 09:26 98.1 97 18 116/71 (86) 96 12/12/16 09:00 Nasal Cannula 2.00 12/12/16 04:00 98.7 106 20 122/77 (92) 94 12/12/16 00:00 98.2 107 20 102/67 (79) 95 I/O 12/11/16 12/11/16 12/11/16 12/12/16 12/12/16 12/12/16 07:00 15:00 23:00 07:00 15:00 23:00 Intake Total 240 ml 720 ml Output Total 300 ml 350 ml 375 ml 2600 ml 250 ml Balance -60 ml 370 ml -375 ml -2600 ml -250 ml Intake Oral 240 ml 720 ml Output Urine Total 300 ml 350 ml 375 ml 600 ml 250 ml Hemodialysis 2000 ml # Voids 2 # Bowel Movements 0 0 1 Result Diagram: 12/09/16 0700 12/12/16 1836 Objective Remarks GENERAL: AOX3, NAD. SKIN: Warm and dry. HEAD: Normocephalic. EYES: No scleral icterus. No injection or drainage. NECK: Supple, trachea midline. No JVD or lymphadenopathy. CARDIOVASCULAR: Regular rate and rhythm without murmurs, gallops, or rubs. RESPIRATORY: Breath sounds equal bilaterally. No accessory muscle use. GASTROINTESTINAL: Abdomen soft, non-tender, nondistended. MUSCULOSKELETAL: No cyanosis, or edema. BACK: Nontender without obvious deformity. No CVA tenderness. Procedures 11/28/2016 Right Internal Jugular Hemodialysis Catheter Tunneled Placement dual lumen 12/02/2016 Successful right renal biopsy for function. Gelfoam and thrombin utilized. No bleeding on post CT A/P Problem List: (1) Sepsis ICD Code: A41.9 - Sepsis, unspecified organism Status: Acute (2) Acute renal failure ICD Code: N17.9 - Acute kidney failure, unspecified Status: Acute (3) Pneumonia ICD Code: J18.9 - Pneumonia, unspecified organism Status: Acute (4) Coronary artery disease ICD Code: I25.10 - Coronary artery disease Status: Acute (5) Anemia ICD Code: D64.9 - Anemia Status: Acute (6) Hematochezia ICD Code: K92.1 - Melena Status: Acute (7) Hypokalemia ICD Code: E87.6 - Hypokalemia Status: Acute Assessment and Plan 55-year-old man with Sepsis on admission suspect secondary to right multilobular pneumonia-resolved -Completed cefepime 1 g every 12 hours on 12/06/16 ESRD - Per nephrology will need penitentiary dialysis(MWF), - Patient underwent AV fistula surgery on 12/10/2016. However, patient may need AV graft. - US kidney/renal/bladder ordered and reviewed showing mild pelvocaliectasis right kidney. 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 Insurance arrangement may takes weeks. Hypokalemia -resolved Normochromic, normocytic anemia suspect secondary to acute blood loss/ hematochezia -Transfused total of 4 RBCs since admission, and transfuse for HgB<7.0, currently stable -Continue Protonix 40 mg twice a day ; appreciate input from GI -Plan for EGD/Colonoscopy possible next week when medically stable May be 03/2017. Chronic obstructive pulmonary disease respiratory failure - Continue scheduled and PRN duonebs. - Supplemental O2 to keep sats >88%. - pulmonary medicine following: solumedrol 20 mg BID x 2 days (12/07-12/09), CXR for 12/08 ordered and pending -S/P bronchoscopy 12/05/16 - cytology pathology report shows no malignancy. DVT Prophylaxis: SCDs/TEDs. Problem Qualifiers (1) Sepsis: (2) Acute renal failure: (3) Pneumonia: (4) Anemia: Hever Xavier DO Dec 12, 2016 20:04
--- NOTE | 2016-12-12 22:14 | HHI.GIFU ---
Objective Vitals I&O Vital Signs Date Time Temp Pulse Resp B/P (MAP) Pulse Ox O2 Delivery O2 Flow Rate FiO2 12/12/16 17:41 97 Nasal Cannula 2.00 12/12/16 16:16 98.6 79 16 98/61 (73) 97 12/12/16 13:43 99.0 103 17 99/65 (76) 98 12/12/16 13:24 95 Nasal Cannula 2.00 12/12/16 09:26 98.1 97 18 116/71 (86) 96 12/12/16 09:00 Nasal Cannula 2.00 12/12/16 04:00 98.7 106 20 122/77 (92) 94 12/12/16 00:00 98.2 107 20 102/67 (79) 95 I/O 12/11/16 12/11/16 12/11/16 12/12/16 12/12/16 12/12/16 07:00 15:00 23:00 07:00 15:00 23:00 Intake Total 240 ml 720 ml Output Total 300 ml 350 ml 375 ml 2600 ml 250 ml Balance -60 ml 370 ml -375 ml -2600 ml -250 ml Intake Oral 240 ml 720 ml Output Urine Total 300 ml 350 ml 375 ml 600 ml 250 ml Hemodialysis 2000 ml # Voids 2 # Bowel Movements 0 0 1 Laboratory Laboratory Tests Test 12/12/16 18:36 Blood Urea Nitrogen 31 Creatinine 4.09 Random Glucose 114 Albumin 1.8 Calcium Level 7.8 Phosphorus Level 5.0 Sodium Level 136 Potassium Level 3.9 Chloride Level 97 Carbon Dioxide Level 30.3 Anion Gap 9 Estimat Glomerular Filtration Rate 15 Date/Time Source Procedure Growth Status 11/22/16 15:20 Blood Peripheral Aerobic Blood Culture - Final NO GROWTH IN 5 DAYS Complete 11/22/16 15:20 Blood Peripheral Anaerobic Blood Culture - Final NO GROWTH IN 5 DAYS Complete 11/22/16 20:30 Stool Stool Cryptosporidium Exam - Final NEGATIVE - NO CRYPTOSPORIDIUM ANTIGEN... Complete 11/22/16 20:30 Stool Stool Stool Pus (MANOLO) - Final FEW WBC'S Complete 11/22/16 20:30 Stool Stool Giardia Antigen (MANOLO) - Final NEGATIVE - NO GIARDIA ANTIGEN DETECTE... Complete 12/05/16 11:41 Bronchial Washings Right Upper Lobe Fungal Smear - Final NO FUNGAL ELEMENTS SEEN. Resulted 12/05/16 11:41 Bronchial Washings Right Upper Lobe Fungal Culture - Preliminary NO GROWTH IN 1 WEEK Resulted 11/25/16 12:00 Urine Catheterized Urine Urine Culture - Final NO GROWTH IN 48 HOURS. Complete Physical Exam HEENT: Normocephalic. CHEST: Diminished throughout, 1L NC. CARDIAC: Regular, tachycardic- HR 100 ABDOMEN: Soft, nondistended, nontender; no hepatosplenomegaly; bowel sounds are present. EXTREMITIES: No clubbing, cyanosis, or edema. SKIN: Normal; no rash; no jaundice. 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
[2016-12-13] VITALS (8 sets, daily range): BP systolic 94–123; BP diastolic 61–80; PULSE 88–98; RESP 18–20; TEMP 97.3–98.4; O2SAT 92–96
[2016-12-13] MEDS: HYDROCORTISONE ACETATE 25 MG SUPP RECTAL SCH (09:00)
[2016-12-13] MEDS: predniSONE 10 MG TAB PO SCH (09:37)
[2016-12-13] MEDS: SEVELAMER CARBONATE 800 MG TAB PO SCH ×3 (09:37→16:55)
[2016-12-13] MEDS: CHOLECALCIFEROL (VIT D3) 1000 UNIT TAB PO SCH (09:37)
[2016-12-13] MEDS: LACTOBACILLUS ACIDOPHILUS TAB PO SCH ×2 (09:37→21:54)
[2016-12-13] MEDS: PANTOPRAZOLE SOD 40 MG DELAYED RELEASE TAB PO SCH ×2 (09:38→21:54)
[2016-12-13] MEDS: POTASSIUM CHLORIDE 20 MEQ CONTROLLED RELEASE TAB PO SCH (09:38)
--- NOTE | 2016-12-13 13:22 | HHI.NPPN ---
Subjective General Problems: Anemia Renal Failure: Acute Review of Systems General Constitutional: Fatigue Respiratory Lungs: Cough, Sputum Objective Data Data Vital Signs Date Time Temp Pulse Resp B/P (MAP) Pulse Ox O2 Delivery O2 Flow Rate FiO2 12/13/16 08:00 Nasal Cannula 1.50 12/13/16 04:00 98.0 88 20 116/72 (87) 92 12/13/16 00:00 98.2 90 18 94/61 (72) 95 12/12/16 20:00 98.0 95 20 113/72 (86) 100 12/12/16 20:00 98 12/12/16 19:00 Nasal Cannula 1.00 12/12/16 17:41 97 Nasal Cannula 2.00 12/12/16 16:16 98.6 79 16 98/61 (73) 97 12/12/16 13:43 99.0 103 17 99/65 (76) 98 12/12/16 13:24 95 Nasal Cannula 2.00 -: 12/09/16 0700 12/12/16 1836 Tubes & Lines: Perma-Cath, Herbert Physical Exam General Appearance: Well Developed, Well Nourished, No Acute Distress, Comfortable Eyes Eye Exam: Pupils Equal, Pupils Reactive Throat Throat Exam: Oral Mucosa [place] & Moist Neck Neck Exam: Neck Supple Pulmonary Resp Exam: Clear Bilaterally, Breath Sounds Equal, No Distress, Decreased Bases Cardiology CV Exam: Regular, Normal Sinus Rhythm, Good Perfusion Gastrointestinal/Abdomen GI Exam: Soft, Non-Tender, Bowel Sounds Present Musculoskeletal MS Exam: Joints Intact, Normal Gait, Normal Tone, Good Strength Integumentary Skin Exam: Clear, Warm, Dry, Intact Extremeties Extremities Exam: No Edema, Pedal Pulses Palpable Neurologic Neuro Exam: Alert, Awake, Oriented, Speech Clear, Moving All Extremities Psychiatric Psych Exam: Appropriate Responses Assessment/Plan Discussed Condition With: Patient Assessment Summary: SEJAL/Acute Renal Failure, Anemia of CKD Electrolyte Assessment: Hypocalcemia, Hypokalemia, Metabolic Acidosis Problem List: (1) Chronic kidney disease, stage 5 ICD Codes: N18.5 - Chronic kidney disease, stage 5 Plan: patient likely has reached ESRD. Renal biopsy revealed severe interstitial fibrosis, tubular atrophy and findings suggestive MPGN, with significant global glomerular sclerosis. Continue dialysis support MWF next dialysis Thursday s/p AVF surgery, no palpable thrill; vascular aware; he has appointment on 01/02 to discuss possible AVG placement monitor renal function, replace electrolytes as needed he is currently non oliguric plan is for him to enter transitional HD program at [place]. When he is approved he can be discharged, may take several weeks. Will keep in touch with case management regarding insurance (medicaid) status. (2) Hypokalemia ICD Codes: E87.6 - Hypokalemia Status: Acute Plan: potassium has corrected he may have a proximal tubule disorder follow labs, he requires frequent replacement 24 hour urine for potassium shows he has renal wasting (3) GI bleed ICD Codes: K92.2 - Gastrointestinal hemorrhage, unspecified Status: Acute Plan: Hb improved GI following, endoscopy is planned, possibly next week On Protonix. (4) Hypocalcemia ICD Codes: E83.51 - Hypocalcemia Plan: Continue to reat hyperphosphatemia, on Sevelamer. PTH around 130, less than the range desired for stage V CKD, Calcitriol was stopped (5) Pneumonia ICD Codes: J18.9 - Pneumonia, unspecified organism Status: Acute Plan: seen by pulmonary. Underwent bronchoscopy. he is off antibiotics at this time (6) Anemia ICD Codes: D64.9 - Anemia Status: Acute Plan: continue epogen with dialysis no evidence of iron deficiency transfuse if necessary (7) Acidosis ICD Codes: E87.2 - Acidosis Status: Acute Plan: corrected, monitor Problem Qualifiers (1) GI bleed: (2) Pneumonia: (3) Anemia: Cecilio Driver MD Dec 13, 2016 13:22
--- NOTE | 2016-12-13 15:09 | HHI.PR ---
Subjective Remarks Follow up for ESRD, Anemia, COPD. patient is doing much better today. Denies any chest pain, shortness of breath, fever or chills. He does request when necessary breathing treatments. He also requests regular diet. Objective Vitals Vital Signs Date Time Temp Pulse Resp B/P (MAP) Pulse Ox O2 Delivery O2 Flow Rate FiO2 12/13/16 12:00 Nasal Cannula 1.50 12/13/16 09:00 88 12/13/16 08:00 Nasal Cannula 1.50 12/13/16 08:00 98.2 97 20 123/80 (94) 94 12/13/16 04:00 98.0 88 20 116/72 (87) 92 12/13/16 00:00 98.2 90 18 94/61 (72) 95 12/12/16 20:00 98.0 95 20 113/72 (86) 100 12/12/16 20:00 98 12/12/16 19:00 Nasal Cannula 1.00 12/12/16 17:41 97 Nasal Cannula 2.00 12/12/16 16:16 98.6 79 16 98/61 (73) 97 I/O 12/12/16 12/12/16 12/12/16 12/13/16 12/13/16 12/13/16 07:00 15:00 23:00 07:00 15:00 23:00 Intake Total 600 ml Output Total 375 ml 2600 ml 250 ml Balance -375 ml -2600 ml -250 ml 600 ml Intake Oral 600 ml Output Urine Total 375 ml 600 ml 250 ml Hemodialysis 2000 ml # Voids 2 # Bowel Movements 1 1 Result Diagram: 12/09/16 0700 12/12/16 1836 Imaging Last Impressions Chest X-Ray 12/11/16 0600 Signed Impressions: Service Date/Time: December 07:56 - CONCLUSION: 1. Persistent extensive consolidation involving the right upper lung field. 2. Underlying emphysematous changes bilaterally. Clarence Santos MD Upper Extremity Ultrasound 12/04/16 0000 Signed Impressions: Service Date/Time: November 18:26 - CONCLUSION: Venous mapping as delineated above. The cephalic veins are abnormal bilaterally. Caio Villalpando MD Renal Biopsy CT 12/02/16 1350 Signed Impressions: Service Date/Time: Friday, December 02, 2016 08:33 - CONCLUSION: Uncomplicated CT guided biopsy of the right kidney for function. Mustapha Vela Jr., MD Catheter Placement X-Ray 11/28/16 0000 Signed Impressions: Service Date/Time: Monday, November 28, 2016 15:57 - CONCLUSION: Uncomplicated PermaCath placement as above. Mustapha Vela Jr., MD Chest CT 11/26/16 0000 Signed Impressions: Service Date/Time: Saturday, November 26, 2016 13:54 - CONCLUSION: 1. Dense consolidative right upper lobe pneumonia on a background of severe emphysema with cavitary foci within the consolidated areas. 2. There is patchy right middle and lower lobe pneumonia as well. 3. Bilateral effusions right greater than left. 4. Associated mediastinal adenopathy. Vasu Barrientos MD Renal Ultrasound 11/22/16 0000 Signed Impressions: Service Date/Time: Tuesday, November 22, 2016 17:14 - CONCLUSION: Mild pelvocaliectasis right kidney not present previously. Obdulia Garcia MD Objective Remarks GENERAL: AOX3, NAD. SKIN: Warm and dry. HEAD: Normocephalic. EYES: No scleral icterus. No injection or drainage. NECK: Supple, trachea midline. No JVD or lymphadenopathy. CARDIOVASCULAR: Regular rate and rhythm without murmurs, gallops, or rubs. RESPIRATORY: Breath sounds equal bilaterally. No accessory muscle use. GASTROINTESTINAL: Abdomen soft, non-tender, nondistended. MUSCULOSKELETAL: No cyanosis, or edema. BACK: Nontender without obvious deformity. No CVA tenderness. Procedures 11/28/2016 Right Internal Jugular Hemodialysis Catheter Tunneled Placement dual lumen 12/02/2016 Successful right renal biopsy for function. Gelfoam and thrombin utilized. No bleeding on post CT A/P Problem List: (1) Sepsis ICD Code: A41.9 - Sepsis, unspecified organism Status: Acute (2) Acute renal failure ICD Code: N17.9 - Acute kidney failure, unspecified Status: Acute (3) Pneumonia ICD Code: J18.9 - Pneumonia, unspecified organism Status: Acute (4) Coronary artery disease ICD Code: I25.10 - Coronary artery disease Status: Acute (5) Anemia ICD Code: D64.9 - Anemia Status: Acute (6) Hematochezia ICD Code: K92.1 - Melena Status: Acute (7) Hypokalemia ICD Code: E87.6 - Hypokalemia Status: Acute Assessment and Plan 55-year-old man with Sepsis on admission suspect secondary to right multilobular pneumonia-resolved -Completed cefepime 1 g every 12 hours on 12/06/16 ESRD - Per nephrology will need senior care dialysis(MWF), - Patient underwent AV fistula surgery on 12/10/2016. However, patient may need AV graft. - US kidney/renal/bladder ordered and reviewed showing mild pelvocaliectasis right kidney. 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 Insurance arrangement may takes weeks. Hypokalemia -resolved Normochromic, normocytic anemia suspect secondary to acute blood loss/ hematochezia -Transfused total of 4 RBCs since admission, and transfuse for HgB<7.0, currently stable -Continue Protonix 40 mg twice a day ; appreciate input from GI -Plan for EGD/Colonoscopy possible next week when medically stable May be 03/2017. Chronic obstructive pulmonary disease respiratory failure - Continue scheduled and PRN duonebs. - Supplemental O2 to keep sats >88%. - pulmonary medicine following: solumedrol 20 mg BID x 2 days (12/07-12/09), CXR for 12/08 ordered and pending -S/P bronchoscopy 12/05/16 - cytology pathology report shows no malignancy. - Change diet to regular. Patient is advised to choose low salt diet. - DuoNeb breathing treatments already in place, PRN. DVT Prophylaxis: SCDs/TEDs. Problem Qualifiers (1) Sepsis: (2) Acute renal failure: (3) Pneumonia: (4) Anemia: Hever Xavier DO Dec 13, 2016 15:09
[2016-12-14] VITALS (8 sets, daily range): BP systolic 106–130; BP diastolic 59–85; PULSE 78–98; RESP 16–20; TEMP 97.7–98.1; O2SAT 93–99
--- NOTE | 2016-12-14 08:15 | HHI.PR ---
Subjective Remarks Follow up for ESRD, Anemia, COPD. patient is currently doing well. Denies any chest pain, shortness of breath, fever or chills. He is currently on 2 L of oxygen via nasal cannula. Without oxygen his oxygen saturation drops down to 87 %. Objective Vitals Vital Signs Date Time Temp Pulse Resp B/P (MAP) Pulse Ox O2 Delivery O2 Flow Rate FiO2 12/14/16 04:00 98.1 94 20 119/68 (85) 96 12/14/16 00:00 98.1 98 20 128/85 (99) 97 12/13/16 20:00 Room Air 12/13/16 20:00 98.4 88 20 119/80 (93) 92 12/13/16 20:00 96 12/13/16 16:00 97.3 93 20 120/75 (90) 96 12/13/16 14:00 96 Nasal Cannula 2.00 12/13/16 12:00 98.2 98 20 120/78 (92) 96 12/13/16 12:00 Nasal Cannula 1.50 12/13/16 09:00 88 I/O 12/13/16 12/13/16 12/13/16 12/14/16 12/14/16 12/14/16 07:00 15:00 23:00 07:00 15:00 23:00 Intake Total 600 ml 720 ml Output Total 1200 ml Balance 600 ml -480 ml Intake Oral 600 ml 720 ml Output Urine Total 1200 ml # Voids 2 # Bowel Movements 1 1 Result Diagram: 12/12/16 1836 Imaging Last Impressions Chest X-Ray 12/11/16 0600 Signed Impressions: Service Date/Time: December 07:56 - CONCLUSION: 1. Persistent extensive consolidation involving the right upper lung field. 2. Underlying emphysematous changes bilaterally. Clarence Santos MD Upper Extremity Ultrasound 12/04/16 0000 Signed Impressions: Service Date/Time: November 18:26 - CONCLUSION: Venous mapping as delineated above. The cephalic veins are abnormal bilaterally. Caio Villalpando MD Renal Biopsy CT 12/02/16 1350 Signed Impressions: Service Date/Time: Friday, December 02, 2016 08:33 - CONCLUSION: Uncomplicated CT guided biopsy of the right kidney for function. Mustapha Vela Jr., MD Catheter Placement X-Ray 11/28/16 0000 Signed Impressions: Service Date/Time: Monday, November 28, 2016 15:57 - CONCLUSION: Uncomplicated PermaCath placement as above. Mustapha Vela Jr., MD Chest CT 11/26/16 0000 Signed Impressions: Service Date/Time: Saturday, November 26, 2016 13:54 - CONCLUSION: 1. Dense consolidative right upper lobe pneumonia on a background of severe emphysema with cavitary foci within the consolidated areas. 2. There is patchy right middle and lower lobe pneumonia as well. 3. Bilateral effusions right greater than left. 4. Associated mediastinal adenopathy. Vasu Barrientos MD Renal Ultrasound 11/22/16 0000 Signed Impressions: Service Date/Time: Tuesday, November 22, 2016 17:14 - CONCLUSION: Mild pelvocaliectasis right kidney not present previously. Obdulia Garcia MD Objective Remarks GENERAL: AOX3, NAD. SKIN: Warm and dry. HEAD: Normocephalic. EYES: No scleral icterus. No injection or drainage. NECK: Supple, trachea midline. No JVD or lymphadenopathy. CARDIOVASCULAR: Regular rate and rhythm without murmurs, gallops, or rubs. RESPIRATORY: Breath sounds equal bilaterally. No accessory muscle use. GASTROINTESTINAL: Abdomen soft, non-tender, nondistended. MUSCULOSKELETAL: No cyanosis, or edema. BACK: Nontender without obvious deformity. No CVA tenderness. Procedures 11/28/2016 Right Internal Jugular Hemodialysis Catheter Tunneled Placement dual lumen 12/02/2016 Successful right renal biopsy for function. Gelfoam and thrombin utilized. No bleeding on post CT A/P Problem List: (1) Sepsis ICD Code: A41.9 - Sepsis, unspecified organism Status: Acute (2) Acute renal failure ICD Code: N17.9 - Acute kidney failure, unspecified Status: Acute (3) Pneumonia ICD Code: J18.9 - Pneumonia, unspecified organism Status: Acute (4) Coronary artery disease ICD Code: I25.10 - Coronary artery disease Status: Acute (5) Anemia ICD Code: D64.9 - Anemia Status: Acute (6) Hematochezia ICD Code: K92.1 - Melena Status: Acute (7) Hypokalemia ICD Code: E87.6 - Hypokalemia Status: Acute Assessment and Plan 55-year-old man with Sepsis on admission suspect secondary to right multilobular pneumonia-resolved -Completed cefepime 1 g every 12 hours on 12/06/16 ESRD - Per nephrology will need retirement dialysis(MWF), - Patient underwent AV fistula surgery on 12/10/2016. However, patient may need AV graft. - US kidney/renal/bladder ordered and reviewed showing mild pelvocaliectasis right kidney. 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 Insurance arrangement may takes weeks. Hypokalemia -resolved. K+ 3.9 on 12/12/2016. Normochromic, normocytic anemia suspect secondary to acute blood loss/ hematochezia -Transfused total of 4 RBCs since admission, and transfuse for HgB<7.0, currently stable 8.6 on 12/09/2016. -Continue Protonix 40 mg twice a day ; appreciate input from GI -Plan for EGD/Colonoscopy possible next week when medically stable May be 03/2017. Chronic obstructive pulmonary disease respiratory failure - Continue scheduled and PRN duonebs. - Benzoate PRN for cough. - Supplemental O2 to keep sats >88%. - pulmonary medicine following: solumedrol 20 mg BID x 2 days (12/07-12/09), CXR for 12/08 ordered and pending -S/P bronchoscopy 12/05/16 - cytology pathology report shows no malignancy. Full code. DVT Prophylaxis: SCDs/TEDs., Ambulation. Problem Qualifiers (1) Sepsis: (2) Acute renal failure: (3) Pneumonia: (4) Anemia: Hever Xavier DO Dec 14, 2016 08:15
[2016-12-14] MEDS: HYDROCORTISONE ACETATE 25 MG SUPP RECTAL SCH (09:00)
[2016-12-14] MEDS: POTASSIUM CHLORIDE 20 MEQ CONTROLLED RELEASE TAB PO SCH (09:00)
[2016-12-14] MEDS ORDERED: BENZONATATE 100 MG CAP PO PRN (09:30)
[2016-12-14] MEDS: SEVELAMER CARBONATE 800 MG TAB PO SCH ×3 (09:40→16:55)
[2016-12-14] MEDS: CHOLECALCIFEROL (VIT D3) 1000 UNIT TAB PO SCH (09:40)
[2016-12-14] MEDS: LACTOBACILLUS ACIDOPHILUS TAB PO SCH ×2 (09:40→20:31)
[2016-12-14] MEDS: PANTOPRAZOLE SOD 40 MG DELAYED RELEASE TAB PO SCH ×2 (09:40→20:31)
[2016-12-14] MEDS: predniSONE 10 MG TAB PO SCH (09:40)
[2016-12-15] VITALS (9 sets, daily range): BP systolic 104–133; BP diastolic 64–84; PULSE 92–116; RESP 16–20; TEMP 98.3–98.9; O2SAT 92–98
[2016-12-15] MEDS: diphenhydrAMINE HCL 25 MG CAP PO PRN (02:51)
[2016-12-15] MEDS: SEVELAMER CARBONATE 800 MG TAB PO SCH ×3 (08:00→17:00)
[2016-12-15] MEDS: HYDROCORTISONE ACETATE 25 MG SUPP RECTAL SCH (08:54)
[2016-12-15] MEDS: HEPARIN SODIUM - IV 10,000 UNITS/10 ML VIAL PRN (10:59)
[2016-12-15] MEDS: GENTAMICIN SULFATE (DIALYSIS USE ONLY) 20 MG/2 ML VIAL IV PRN (11:00)
[2016-12-15] MEDS: EPOETIN ALFA 10,000 UNITS/ML VIAL IV PRN (11:00)
[2016-12-15] MEDS: predniSONE 10 MG TAB PO SCH (11:40)
[2016-12-15] MEDS: CHOLECALCIFEROL (VIT D3) 1000 UNIT TAB PO SCH (11:40)
[2016-12-15] MEDS: LACTOBACILLUS ACIDOPHILUS TAB PO SCH ×2 (11:40→20:31)
[2016-12-15] MEDS: POTASSIUM CHLORIDE 20 MEQ CONTROLLED RELEASE TAB PO SCH (11:40)
[2016-12-15] MEDS: PANTOPRAZOLE SOD 40 MG DELAYED RELEASE TAB PO SCH ×2 (11:40→20:31)
--- NOTE | 2016-12-15 13:47 | HHI.PR ---
Subjective Remarks Follow up for ESRD, Anemia, COPD. Patient is doing well. Complains of persistent cough. No fever, chills. Objective Vitals Vital Signs Date Time Temp Pulse Resp B/P (MAP) Pulse Ox O2 Delivery O2 Flow Rate FiO2 12/15/16 13:15 93 Nasal Cannula 2.00 12/15/16 08:00 Nasal Cannula 1.50 12/15/16 04:00 98.3 94 20 133/68 (89) 93 12/15/16 00:49 98.7 92 20 122/76 (91) 96 12/14/16 20:31 97.9 90 18 106/59 (75) 99 12/14/16 20:30 Nasal Cannula 1.50 12/14/16 20:09 Nasal Cannula 2.00 12/14/16 20:00 92 12/14/16 17:26 Nasal Cannula 2.00 12/14/16 16:00 Nasal Cannula 1.50 12/14/16 16:00 97.7 95 16 112/73 (86) 93 I/O 12/14/16 12/14/16 12/14/16 12/15/16 12/15/16 12/15/16 06:59 14:59 22:59 06:59 14:59 22:59 Intake Total 720 ml Output Total 200 ml 1100 ml 2000 ml Balance 520 ml -1100 ml -2000 ml Intake Oral 720 ml Output Urine Total 200 ml 1100 ml Hemodialysis 2000 ml # Bowel Movements 0 Result Diagram: 12/12/161835 Objective Remarks GENERAL: AOX3, NAD. SKIN: Warm and dry. HEAD: Normocephalic. EYES: No scleral icterus. No injection or drainage. NECK: Supple, trachea midline. No JVD or lymphadenopathy. CARDIOVASCULAR: Regular rate and rhythm without murmurs, gallops, or rubs. RESPIRATORY: Breath sounds equal bilaterally. No accessory muscle use. GASTROINTESTINAL: Abdomen soft, non-tender, nondistended. MUSCULOSKELETAL: No cyanosis, or edema. BACK: Nontender without obvious deformity. No CVA tenderness. Procedures 11/28/2016 Right Internal Jugular Hemodialysis Catheter Tunneled Placement dual lumen 12/02/2016 Successful right renal biopsy for function. Gelfoam and thrombin utilized. No bleeding on post CT A/P Problem List: (1) Sepsis ICD Code: A41.9 - Sepsis, unspecified organism Status: Acute (2) Acute renal failure ICD Code: N17.9 - Acute kidney failure, unspecified Status: Acute (3) Pneumonia ICD Code: J18.9 - Pneumonia, unspecified organism Status: Acute (4) Coronary artery disease ICD Code: I25.10 - Coronary artery disease Status: Acute (5) Anemia ICD Code: D64.9 - Anemia Status: Acute (6) Hematochezia ICD Code: K92.1 - Melena Status: Acute (7) Hypokalemia ICD Code: E87.6 - Hypokalemia Status: Acute Assessment and Plan 55-year-old man with Sepsis on admission suspect secondary to right multilobular pneumonia-resolved -Completed cefepime 1 g every 12 hours on 12/06/16 ESRD - Per nephrology will need alf dialysis(MWF), - Patient underwent AV fistula surgery on 12/10/2016. However, patient may need AV graft. - US kidney/renal/bladder ordered and reviewed showing mild pelvocaliectasis right kidney. 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 Insurance arrangement may takes weeks. Hypokalemia -resolved. K+ 3.9 on 12/12/2016. Normochromic, normocytic anemia suspect secondary to acute blood loss/ hematochezia -Transfused total of 4 RBCs since admission, and transfuse for HgB<7.0, currently stable 8.6 on 12/09/2016. -Continue Protonix 40 mg twice a day ; appreciate input from GI -Plan for EGD/Colonoscopy possible next week when medically stable May be 03/2017. Chronic obstructive pulmonary disease respiratory failure - Continue scheduled and PRN duonebs. - Benzoate PRN for cough. - Supplemental O2 to keep sats >88%. - pulmonary medicine following: solumedrol 20 mg BID x 2 days (12/07-12/09), CXR for 12/08 ordered and pending -S/P bronchoscopy 12/05/16 - cytology pathology report shows no malignancy. - Will start Robitussin AC for cough. D/C Benzoate. Full code. DVT Prophylaxis: SCDs/TEDs., Ambulation. Problem Qualifiers (1) Sepsis: (2) Acute renal failure: (3) Pneumonia: (4) Anemia: Ahmed,Shahabuddin DO Dec 15, 2016 1:47 pm
--- NOTE | 2016-12-15 15:16 | HHI.NPPN ---
Subjective General Problems: Anemia Renal Failure: Acute Interval History possible EGD/colonscopy tomorrow. Had dialysis today, with removal of 2 liters. Review of Systems General Constitutional: Fatigue Respiratory Lungs: Cough, Sputum Objective Data Data 12/15/16 12/16/16 19:00 07:00 Output Total 2000 ml Balance -2000 ml Hemodialysis 2000 ml Vital Signs Date Time Temp Pulse Resp B/P (MAP) Pulse Ox O2 Delivery O2 Flow Rate FiO2 12/15/16 13:15 93 Nasal Cannula 2.00 12/15/16 12:00 98.9 113 16 104/64 (77) 98 12/15/16 08:00 98.4 105 16 130/84 (99) 92 12/15/16 08:00 Nasal Cannula 1.50 12/15/16 04:00 98.3 94 20 133/68 (89) 93 12/15/16 00:49 98.7 92 20 122/76 (91) 96 12/14/16 20:31 97.9 90 18 106/59 (75) 99 12/14/16 20:30 Nasal Cannula 1.50 12/14/16 20:09 Nasal Cannula 2.00 12/14/16 20:00 92 12/14/16 17:26 Nasal Cannula 2.00 12/14/16 16:00 Nasal Cannula 1.50 12/14/16 16:00 97.7 95 16 112/73 (86) 93 -: 12/12/16 1836 Tubes & Lines: Perma-Cath, Herbert Physical Exam General Appearance: Well Developed, Well Nourished, No Acute Distress, Comfortable Eyes Eye Exam: Pupils Equal, Pupils Reactive Throat Throat Exam: Oral Mucosa Stephen & Moist Neck Neck Exam: Neck Supple Pulmonary Resp Exam: Clear Bilaterally, Breath Sounds Equal, No Distress, Decreased Bases Cardiology CV Exam: Regular, Normal Sinus Rhythm, Good Perfusion Gastrointestinal/Abdomen GI Exam: Soft, Non-Tender, Bowel Sounds Present Musculoskeletal MS Exam: Joints Intact, Normal Gait, Normal Tone, Good Strength Integumentary Skin Exam: Clear, Warm, Dry, Intact Extremeties Extremities Exam: No Edema, Pedal Pulses Palpable Neurologic Neuro Exam: Alert, Awake, Oriented, Speech Clear, Moving All Extremities Psychiatric Psych Exam: Appropriate Responses Assessment/Plan Discussed Condition With: Patient Assessment Summary: SEJAL/Acute Renal Failure, Anemia of CKD Electrolyte Assessment: Hypocalcemia, Hypokalemia, Metabolic Acidosis Problem List: (1) Chronic kidney disease, stage 5 ICD Codes: N18.5 - Chronic kidney disease, stage 5 Plan: patient likely has reached ESRD. Renal biopsy revealed severe interstitial fibrosis, tubular atrophy and findings suggestive MPGN, with significant global glomerular sclerosis. Continue dialysis support MWF next dialysis Thursday s/p AVF surgery, no palpable thrill; vascular aware; he has appointment on 01/02 to discuss possible AVG placement monitor renal function, replace electrolytes as needed he is currently non oliguric plan is for him to enter transitional HD program at [facility]. When he is approved he can be discharged, may take several weeks. Will keep in touch with case management regarding insurance (medicaid) status. (2) Hypokalemia ICD Codes: E87.6 - Hypokalemia Status: Acute Plan: potassium has corrected he may have a proximal tubule disorder follow labs, he requires frequent replacement 24 hour urine for potassium shows he has renal wasting (3) GI bleed ICD Codes: K92.2 - Gastrointestinal hemorrhage, unspecified Status: Acute Plan: Hb improved GI following, endoscopy is planned, possibly next week On Protonix. (4) Hypocalcemia ICD Codes: E83.51 - Hypocalcemia Plan: Continue to reat hyperphosphatemia, on Sevelamer. PTH around 130, less than the range desired for stage V CKD, Calcitriol was stopped (5) Pneumonia ICD Codes: J18.9 - Pneumonia, unspecified organism Status: Acute Plan: seen by pulmonary. Underwent bronchoscopy. he is off antibiotics at this time (6) Anemia ICD Codes: D64.9 - Anemia Status: Acute Plan: continue epogen with dialysis no evidence of iron deficiency transfuse if necessary (7) Acidosis ICD Codes: E87.2 - Acidosis Status: Acute Plan: corrected, monitor Problem Qualifiers (1) GI bleed: (2) Pneumonia: (3) Anemia: Jim Zuluaga MD Dec 15, 2016 15:16
--- NOTE | 2016-12-15 16:06 | HHI.PR ---
Subjective Remarks Feeling poorly . Had Dialysis.. Has a cough and brings up copious secretions. On O2 at 1 L . Seems stable Will Go for EGD and colonoscopy Objective Vital Signs Date Time Temp Pulse Resp B/P (MAP) Pulse Ox O2 Delivery O2 Flow Rate FiO2 12/15/16 13:15 93 Nasal Cannula 2.00 12/15/16 12:00 Nasal Cannula 1.50 12/15/16 12:00 98.9 113 16 104/64 (77) 98 12/15/16 09:00 116 12/15/16 08:00 98.4 105 16 130/84 (99) 92 12/15/16 08:00 Nasal Cannula 1.50 12/15/16 04:00 98.3 94 20 133/68 (89) 93 12/15/16 00:49 98.7 92 20 122/76 (91) 96 12/14/16 20:31 97.9 90 18 106/59 (75) 99 12/14/16 20:30 Nasal Cannula 1.50 12/14/16 20:09 Nasal Cannula 2.00 12/14/16 20:00 92 12/14/16 17:26 Nasal Cannula 2.00 I/O 12/14/16 12/14/16 12/14/16 12/15/16 12/15/16 12/15/16 07:00 15:00 23:00 07:00 15:00 23:00 Intake Total 720 ml Output Total 200 ml 1100 ml 2000 ml Balance 520 ml -1100 ml -2000 ml Intake Oral 720 ml Output Urine Total 200 ml 1100 ml Hemodialysis 2000 ml # Bowel Movements 0 Result Diagram: 12/12/16 6859 Objective Remarks GENERAL: This is a middle-aged averagely built white male who is alert and in no acute distress. HEAD, EYES, EARS, NOSE, THROAT: Head normocephalic. The pupils are reactive. Tongue is moist. Throat is clear. Nasal mucosa is clear. NECK: The neck is supple. No bruits. No thyroid enlargement. No lymphadenopathy. CHEST: Equal movements. Occ crackles right chest. Wheeze scattered. HEART: Heart sounds are regular. S1 and S2. No murmur. ABDOMEN: Abdomen is soft and protuberant. No masses or tenderness. EXTREMITIES: No edema. No calf tenderness. NEUROLOGIC: Reflexes are normal. No focal deficits. SKIN: Dry and cool. Assessment and Plan Assessment and Plan IMPRESSION: 1. Extensive right lung pneumonia with hypoxemia. 2. Chronic kidney disease with acute renal failure. 3. COPD with emphysema and chronic bronchitis. 4. History of coronary artery bypass grafting. Plan : 1. Get CXR in am 2. O2 at 1 L.and wean to RA 3. Nebs qid , duoneb 4. EGD/ Colonoscopy 5. Prednisone 10 mg daily 6. Dialysis as planned. 7. PT and OT. 8. Home soon Alison Wilson MD Dec 15, 2016 16:06
[2016-12-15] MEDS: guaiFENesin/CODEINE SYRUP 200 MG/20 MG/10 ML CUP PO PRN (22:52)
[2016-12-16] VITALS (7 sets, daily range): BP systolic 94–114; BP diastolic 56–73; PULSE 96–109; RESP 16–20; TEMP 97.9–99.8; O2SAT 93–97
--- NOTE | 2016-12-16 06:41 | RADRPT ---
EXAM DATE/TIME: 12/16/2016 05:48 [facility] COMPARISON: CHEST SINGLE AP, December 05, 2016, 11:54. INDICATIONS : Short of breath. MEDICAL HISTORY : Myocardial infarction. Hypertension. Osteoporosis. Neck pain. Dizziness. Chest pain. COPD. Asthma. Dy spnea. Ulcer. Renal failure. SURGICAL HISTORY : Three vessel bypass. Bone marrow harvest. ENCOUNTER: Subsequent ACUITY: 2 weeks PAIN SCORE: 0/10 LOCATION: Bilateral chest FINDINGS: A single view of the chest demonstrates dense cavitary pneumonia upper right hemithorax with pleural thickening. Previous sternotomy. Underlying emphysema. No new consolidation on the left. CONCLUSION: 1. Stable appearance of dense cavitary pneumonia on the right with pleural thickening and fluid. Righ t central line unchanged with tip in right atrium. Rios Lai MD on December 16, 2016 at 6:38 Board Certified Radiologist. This report was verified electronically.
--- NOTE | 2016-12-16 08:40 | HHI.GIFU ---
Subjective Remarks Resting in bed. Breathing better. No n/v. No abdominal pain. Tolerating diet. Continues to have small amount of BRBPR with bowel movements- last yesterday- small amount. (April Melgar) Objective Vitals I&O Vital Signs Date Time Temp Pulse Resp B/P (MAP) Pulse Ox O2 Delivery O2 Flow Rate FiO2 12/16/16 08:00 98.9 102 18 102/68 (79) 94 12/16/16 04:00 98.1 106 18 96/60 (72) 95 12/16/16 00:00 98.8 100 18 94/58 (70) 95 12/15/16 20:30 Nasal Cannula 2.00 12/15/16 20:03 Nasal Cannula 2.00 12/15/16 20:01 112 12/15/16 20:00 98.4 102 20 106/66 (79) 96 12/15/16 16:00 98.8 103 16 107/68 (81) 95 12/15/16 16:00 Nasal Cannula 2.00 12/15/16 13:15 93 Nasal Cannula 2.00 12/15/16 12:00 Nasal Cannula 1.50 12/15/16 12:00 98.9 113 16 104/64 (77) 98 12/15/16 09:00 116 I/O 12/15/16 12/15/16 12/15/16 12/16/16 12/16/16 12/16/16 07:00 15:00 23:00 07:00 15:00 23:00 Output Total 1100 ml 2000 ml 700 ml Balance -1100 ml -2000 ml -700 ml Output Urine Total 1100 ml 700 ml Hemodialysis 2000 ml Laboratory Date/Time Source Procedure Growth Status 11/22/16 15:20 Blood Peripheral Aerobic Blood Culture - Final NO GROWTH IN 5 DAYS Complete 11/22/16 15:20 Blood Peripheral Anaerobic Blood Culture - Final NO GROWTH IN 5 DAYS Complete 11/22/16 20:30 Stool Stool Cryptosporidium Exam - Final NEGATIVE - NO CRYPTOSPORIDIUM ANTIGEN... Complete 11/22/16 20:30 Stool Stool Stool Pus (MANOLO) - Final FEW WBC'S Complete 11/22/16 20:30 Stool Stool Giardia Antigen (MANOLO) - Final NEGATIVE - NO GIARDIA ANTIGEN DETECTE... Complete 12/05/16 11:41 Bronchial Washings Right Upper Lobe Fungal Smear - Final NO FUNGAL ELEMENTS SEEN. Resulted 12/05/16 11:41 Bronchial Washings Right Upper Lobe Fungal Culture - Preliminary NO GROWTH IN 1 WEEK Resulted 11/25/16 12:00 Urine Catheterized Urine Urine Culture - Final NO GROWTH IN 48 HOURS. Complete Imaging Last Impressions Chest X-Ray 12/16/16 0600 Signed Impressions: Service Date/Time: Friday, December 16, 2016 05:48 - CONCLUSION: 1. Stable appearance of dense cavitary pneumonia on the right with pleural thickening and fluid. Right central line unchanged with tip in right atrium. Rios Lai MD Upper Extremity Ultrasound 12/04/16 0000 Signed Impressions: Service Date/Time: November 18:26 - CONCLUSION: Venous mapping as delineated above. The cephalic veins are abnormal bilaterally. Caio Villalpando MD Renal Biopsy CT 12/02/16 1350 Signed Impressions: Service Date/Time: Friday, December 02, 2016 08:33 - CONCLUSION: Uncomplicated CT guided biopsy of the right kidney for function. Mustapha Vela Jr., MD Catheter Placement X-Ray 11/28/16 0000 Signed Impressions: Service Date/Time: Monday, November 28, 2016 15:57 - CONCLUSION: Uncomplicated PermaCath placement as above. Mustapha Vela Jr., MD Chest CT 11/26/16 0000 Signed Impressions: Service Date/Time: Saturday, November 26, 2016 13:54 - CONCLUSION: 1. Dense consolidative right upper lobe pneumonia on a background of severe emphysema with cavitary foci within the consolidated areas. 2. There is patchy right middle and lower lobe pneumonia as well. 3. Bilateral effusions right greater than left. 4. Associated mediastinal adenopathy. Vasu Barrientos MD Renal Ultrasound 11/22/16 0000 Signed Impressions: Service Date/Time: Tuesday, November 22, 2016 17:14 - CONCLUSION: Mild pelvocaliectasis right kidney not present previously. Obdulia Garcia MD Physical Exam HEENT: Normocephalic. CHEST: Diminished throughout, 1L NC. CARDIAC: Regular, tachycardic- HR 100 ABDOMEN: Soft, nondistended, nontender; no hepatosplenomegaly; bowel sounds are present. EXTREMITIES: No clubbing, cyanosis, or edema. SKIN: Normal; no rash; no jaundice. STEAM CRANE OPERATOR: No focal deficits; alert and oriented x 3 (April Melgar) Assessment and Plan Plan ASSESSMENT: - Anemia, likely multifactorial. Rectal bleeding, ARF. S/P 4 units PRBC. HH 8.6 /26.4 on 12/09. Today's CBC pending. Cleared by pulmonology for egd/colonoscopy. Timing d/w attending (HD tomorrow), okay to proceed with procedure tomorrow. Will prep and schedule for egd/colonoscopy in am. - Rectal bleeding. Still having BRBPR, small amount, when he wipes after bowel movements. Sometimes, this is a copious amount of blood filling the toilet. EGD/Colonoscopy in am. Rpt. CBC pending. - Hemorrhoids. hydrocortisone suppositories - Diarrhea. CDiff negative. No enteric pathogens, negative for cryptosporidium , negative for giardia. Few wbc. Probiotics. IMPROVED. - ARF Renal following, HD. S/P AV fistula placement - Resp. Insufficiency with multilobular PNA/severe emphysema, per pulmonary S/P Bronchoscopy (12/05/16). Improved. - Leukocytosis, Fever. Afebrile. - Weight loss- 10-15 ibs in the last 3 weeks due to poor appetite and Po intake - Hypokalemia- Secondary to above, replaced by attending - Hx of CABG, COPD per attending PLAN: - EGD/Colonoscopy in am (D/W Dr. Xavier) - Clear liquids - NPO after MN - Golytely prep - Cont. PPI - Cont. Hydrocortisone supp. - Monitor HH - Transfuse as necessary - CBC, BMP in am - Supportive care - Further recommendations to follow based on results of above - Patient seen and examined by Dr. Worthington and myself and this note is written on her behalf. (April Melgar) Physician Comments agree with above (Thi Worthington MD) April Melgar Dec 16, 2016 08:40 Thi Worthington MD Dec 16, 2016 20:30
[2016-12-16] MEDS: HYDROCORTISONE ACETATE 25 MG SUPP RECTAL SCH (09:00)
[2016-12-16] MEDS: PANTOPRAZOLE SOD 40 MG DELAYED RELEASE TAB PO SCH ×2 (09:12→21:11)
[2016-12-16] MEDS: SEVELAMER CARBONATE 800 MG TAB PO SCH ×3 (09:12→16:53)
[2016-12-16] MEDS: predniSONE 5 MG TAB PO SCH (09:12)
[2016-12-16] MEDS: LACTOBACILLUS ACIDOPHILUS TAB PO SCH ×2 (09:12→21:11)
[2016-12-16] MEDS: POTASSIUM CHLORIDE 20 MEQ CONTROLLED RELEASE TAB PO SCH (09:12)
[2016-12-16] MEDS: CHOLECALCIFEROL (VIT D3) 1000 UNIT TAB PO SCH (09:12)
--- NOTE | 2016-12-16 11:01 | HHI.NPPN ---
Subjective General Problems: Anemia Renal Failure: Acute Interval History Actively coughing, some shortness of breath. Dialyzed yesterday. (Milla Pack) Review of Systems General Constitutional: Fatigue (Milla Pack) Respiratory Lungs: Cough, Sputum (Milla Pack) Objective Data Data Vital Signs Date Time Temp Pulse Resp B/P (MAP) Pulse Ox O2 Delivery O2 Flow Rate FiO2 12/16/16 09:07 95 Nasal Cannula 2.00 12/16/16 08:00 98.9 102 18 102/68 (79) 94 12/16/16 08:00 101 12/16/16 08:00 Nasal Cannula 2.00 12/16/16 07:15 Nasal Cannula 2.00 12/16/16 04:00 98.1 106 18 96/60 (72) 95 12/16/16 00:00 98.8 100 18 94/58 (70) 95 12/15/16 20:30 Nasal Cannula 2.00 12/15/16 20:03 Nasal Cannula 2.00 12/15/16 20:01 112 12/15/16 20:00 98.4 102 20 106/66 (79) 96 12/15/16 16:00 98.8 103 16 107/68 (81) 95 12/15/16 16:00 Nasal Cannula 2.00 12/15/16 13:15 93 Nasal Cannula 2.00 12/15/16 12:00 Nasal Cannula 1.50 12/15/16 12:00 98.9 113 16 104/64 (77) 98 (Milla Pack) -: 12/12/16 1836 Imaging Last Impressions Chest X-Ray 12/16/16 0600 Signed Impressions: Service Date/Time: Friday, December 16, 2016 05:48 - CONCLUSION: 1. Stable appearance of dense cavitary pneumonia on the right with pleural thickening and fluid. Right central line unchanged with tip in right atrium. Rios Lai MD Upper Extremity Ultrasound 12/04/16 0000 Signed Impressions: Service Date/Time: November 18:26 - CONCLUSION: Venous mapping as delineated above. The cephalic veins are abnormal bilaterally. Caio Villalpando MD Renal Biopsy CT 12/02/16 1350 Signed Impressions: Service Date/Time: Friday, December 02, 2016 08:33 - CONCLUSION: Uncomplicated CT guided biopsy of the right kidney for function. Mustapha Vela Jr., MD Catheter Placement X-Ray 11/28/16 0000 Signed Impressions: Service Date/Time: Monday, November 28, 2016 15:57 - CONCLUSION: Uncomplicated PermaCath placement as above. Mustapha Vela Jr., MD Chest CT 11/26/16 0000 Signed Impressions: Service Date/Time: Saturday, November 26, 2016 13:54 - CONCLUSION: 1. Dense consolidative right upper lobe pneumonia on a background of severe emphysema with cavitary foci within the consolidated areas. 2. There is patchy right middle and lower lobe pneumonia as well. 3. Bilateral effusions right greater than left. 4. Associated mediastinal adenopathy. Vasu Barrientos MD Renal Ultrasound 11/22/16 0000 Signed Impressions: Service Date/Time: Tuesday, November 22, 2016 17:14 - CONCLUSION: Mild pelvocaliectasis right kidney not present previously. Obdulia Garcia MD Tubes & Lines: Perma-Cath, Herbert (Sirena,Milla B. ELEMENTARY SCHOOL SOCIAL WORKER) Physical Exam General Appearance: Well Developed, Well Nourished, No Acute Distress, Comfortable (Sirena,Milla B. ELEMENTARY SCHOOL SOCIAL WORKER) Eyes Eye Exam: Pupils Equal, Pupils Reactive (Sirena,Milla B. ELEMENTARY SCHOOL SOCIAL WORKER) Throat Throat Exam: Oral Mucosa [place] & Moist (Sirena,Milla B. ELEMENTARY SCHOOL SOCIAL WORKER) Neck Neck Exam: Neck Supple (Sirena,Milla B. ELEMENTARY SCHOOL SOCIAL WORKER) Pulmonary Resp Exam: Clear Bilaterally, Breath Sounds Equal, No Distress, Crackles, Decreased Bases Resp Remarks crackles mostly on right upper lung field (Sirena,Milla B. ELEMENTARY SCHOOL SOCIAL WORKER) Cardiology CV Exam: Regular, Normal Sinus Rhythm, Good Perfusion (Sirena,Milla B. ELEMENTARY SCHOOL SOCIAL WORKER) Gastrointestinal/Abdomen GI Exam: Soft, Non-Tender, Bowel Sounds Present (Sirena,Milla B. ELEMENTARY SCHOOL SOCIAL WORKER) Musculoskeletal MS Exam: Joints Intact, Normal Gait, Normal Tone, Good Strength (Sirena,Milla B. ELEMENTARY SCHOOL SOCIAL WORKER) Integumentary Skin Exam: Clear, Warm, Dry, Intact (Sirena,Milla B. ELEMENTARY SCHOOL SOCIAL WORKER) Extremeties Extremities Exam: No Edema, Pedal Pulses Palpable (Sirena,Milla B. ELEMENTARY SCHOOL SOCIAL WORKER) Neurologic Neuro Exam: Alert, Awake, Oriented, Speech Clear, Moving All Extremities (Milla Pack) Psychiatric Psych Exam: Appropriate Responses (Milla Pack) Assessment/Plan Discussed Condition With: Patient Assessment Summary: SEJAL/Acute Renal Failure, Anemia of CKD Electrolyte Assessment: Hypocalcemia, Hypokalemia, Metabolic Acidosis Problem List: (1) Chronic kidney disease, stage 5 ICD Codes: N18.5 - Chronic kidney disease, stage 5 Plan: Patient likely has reached ESRD. Renal biopsy results reviewed. Continue dialysis support MWF. 2L UF yesterday. s/p AVF surgery, no palpable thrill; vascular aware; he has appointment on 01/02 to discuss possible AVG placement monitor renal function, replace electrolytes as needed he is currently non oliguric The plan is for him to enter transitional HD program at [place]. When he is approved he can be discharged, may take several weeks. Will keep in touch with case management regarding insurance (medicaid) status. (2) Hypokalemia ICD Codes: E87.6 - Hypokalemia Status: Acute Plan: Potassium has corrected,he may have a proximal tubule disorder Follow labs, he requires frequent replacement 24 hour urine for potassium shows he has renal wasting (3) GI bleed ICD Codes: K92.2 - Gastrointestinal hemorrhage, unspecified Status: Acute Plan: Hb improved GI following, EGD/colonoscopy planned this week. The patient would like to begin GI prep tomorrow evening, with procedure Thurs AM. On Protonix. (4) Hypocalcemia ICD Codes: E83.51 - Hypocalcemia Plan: Continue to reat hyperphosphatemia, on Sevelamer with meals. PTH around 130, less than the range desired for stage V CKD, Calcitriol was stopped (5) Pneumonia ICD Codes: J18.9 - Pneumonia, unspecified organism Status: Acute Plan: Pulmonary following, s/p bronchoscopy. No malignancies identified. He is not on antibiotics at this time (6) Anemia ICD Codes: D64.9 - Anemia Status: Acute Plan: continue epogen with dialysis no evidence of iron deficiency transfuse if necessary (7) Acidosis ICD Codes: E87.2 - Acidosis Status: Acute Plan: corrected, monitor (Milla Pack) Plan patient was seen and examined. Agree with above assessment and plan. (Jim Zuluaga MD) Problem Qualifiers (1) GI bleed: (2) Pneumonia: (3) Anemia: Milla Pack Dec 16, 2016 11:01 Jim Zuluaga MD Dec 17, 2016 09:17
[2016-12-16 11:18] LABS: AUTOMATED NEUTROPHIL # 11.9 TH/MM3 (1.8-7.7); BASOPHIL # 0.1 TH/MM3 (0-0.2); BASOPHIL % 0.7 % (0.0-2.0); EOSINOPHIL # 0.1 TH/MM3 (0-0.4); HEMATOCRIT 21.6 % (39.0-51.0); HEMO FLAGS DIFF FINAL; LYMPH % 9.5 % (9.0-44.0); LYMPHOCYTE # 1.3 TH/MM3 (1.0-4.8); MEAN CORPUSCULAR HEMOGLOBIN 30.5 PG (27.0-34.0); MEAN CORPUSCULAR HGB CONC 32.8 % (32.0-36.0); MONO % 5.5 % (0.0-8.0); NEUT % 83.3 % (16.0-70.0); PLATELET COUNT 149 TH/MM3 (150-450); RED BLOOD COUNT 2.32 MIL/MM3 (4.50-5.90); RED CELL DISTRIBUTION WIDTH 16.8 % (11.6-17.2); WHITE BLOOD COUNT 14.3 TH/MM3 (4.0-11.0)
[2016-12-16 11:42] LABS: BICARBONATE 27.7 MEQ/L (21.0-32.0); POTASSIUM 3.5 MEQ/L (3.5-5.1)
--- NOTE | 2016-12-16 12:50 | HHI.PR ---
Subjective Remarks Follow up for ESRD, Anemia, COPD. patient is currently doing well. He does complain of persistent cough. No fever or chills. Objective Vitals Vital Signs Date Time Temp Pulse Resp B/P (MAP) Pulse Ox O2 Delivery O2 Flow Rate FiO2 12/16/16 09:07 95 Nasal Cannula 2.00 12/16/16 08:00 98.9 102 18 102/68 (79) 94 12/16/16 08:00 101 12/16/16 08:00 Nasal Cannula 2.00 12/16/16 07:15 Nasal Cannula 2.00 12/16/16 04:00 98.1 106 18 96/60 (72) 95 12/16/16 00:00 98.8 100 18 94/58 (70) 95 12/15/16 20:30 Nasal Cannula 2.00 12/15/16 20:03 Nasal Cannula 2.00 12/15/16 20:01 112 12/15/16 20:00 98.4 102 20 106/66 (79) 96 12/15/16 16:00 98.8 103 16 107/68 (81) 95 12/15/16 16:00 Nasal Cannula 2.00 12/15/16 13:15 93 Nasal Cannula 2.00 I/O 12/15/16 12/15/16 12/15/16 12/16/16 12/16/16 12/16/16 07:00 15:00 23:00 07:00 15:00 23:00 Output Total 1100 ml 2000 ml 700 ml Balance -1100 ml -2000 ml -700 ml Output Urine Total 1100 ml 700 ml Hemodialysis 2000 ml Result Diagram: 12/16/16 1050 12/16/16 1050 Imaging Last Impressions Chest X-Ray 12/16/16 0600 Signed Impressions: Service Date/Time: Friday, December 16, 2016 05:48 - CONCLUSION: 1. Stable appearance of dense cavitary pneumonia on the right with pleural thickening and fluid. Right central line unchanged with tip in right atrium. Rios Lai MD Upper Extremity Ultrasound 12/04/16 0000 Signed Impressions: Service Date/Time: November 18:26 - CONCLUSION: Venous mapping as delineated above. The cephalic veins are abnormal bilaterally. Caio Villalpando MD Renal Biopsy CT 12/02/16 1350 Signed Impressions: Service Date/Time: Friday, December 02, 2016 08:33 - CONCLUSION: Uncomplicated CT guided biopsy of the right kidney for function. Mustapha Vela Jr., MD Catheter Placement X-Ray 11/28/16 0000 Signed Impressions: Service Date/Time: Monday, November 28, 2016 15:57 - CONCLUSION: Uncomplicated PermaCath placement as above. Mustapha Vela Jr., MD Chest CT 11/26/16 0000 Signed Impressions: Service Date/Time: Saturday, November 26, 2016 13:54 - CONCLUSION: 1. Dense consolidative right upper lobe pneumonia on a background of severe emphysema with cavitary foci within the consolidated areas. 2. There is patchy right middle and lower lobe pneumonia as well. 3. Bilateral effusions right greater than left. 4. Associated mediastinal adenopathy. Vasu Barrientos MD Renal Ultrasound 11/22/16 0000 Signed Impressions: Service Date/Time: Tuesday, November 22, 2016 17:14 - CONCLUSION: Mild pelvocaliectasis right kidney not present previously. Obdulia Garcia MD Objective Remarks GENERAL: AOX3, NAD. SKIN: Warm and dry. HEAD: Normocephalic. EYES: No scleral icterus. No injection or drainage. NECK: Supple, trachea midline. No JVD or lymphadenopathy. CARDIOVASCULAR: Regular rate and rhythm without murmurs, gallops, or rubs. RESPIRATORY: Breath sounds equal bilaterally. No accessory muscle use. GASTROINTESTINAL: Abdomen soft, non-tender, nondistended. MUSCULOSKELETAL: No cyanosis, or edema. BACK: Nontender without obvious deformity. No CVA tenderness. Procedures 11/28/2016 Right Internal Jugular Hemodialysis Catheter Tunneled Placement dual lumen 12/02/2016 Successful right renal biopsy for function. Gelfoam and thrombin utilized. No bleeding on post CT A/P Problem List: (1) Sepsis ICD Code: A41.9 - Sepsis, unspecified organism Status: Acute (2) Acute renal failure ICD Code: N17.9 - Acute kidney failure, unspecified Status: Acute (3) Pneumonia ICD Code: J18.9 - Pneumonia, unspecified organism Status: Acute (4) Coronary artery disease ICD Code: I25.10 - Coronary artery disease Status: Acute (5) Anemia ICD Code: D64.9 - Anemia Status: Acute (6) Hematochezia ICD Code: K92.1 - Melena Status: Acute (7) Hypokalemia ICD Code: E87.6 - Hypokalemia Status: Acute Assessment and Plan 55-year-old man with Sepsis on admission suspect secondary to right multilobular pneumonia-resolved Dense cavitary pneumonia of the right lung -Pulmonary following. -Completed cefepime 1 g every 12 hours on 12/06/16 ESRD - Per nephrology will need searchlight operator dialysis(MWF), - Patient underwent AV fistula surgery on 12/10/2016. However, patient may need AV graft. - US kidney/renal/bladder ordered and reviewed showing mild pelvocaliectasis right kidney. 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 Insurance arrangement may takes weeks. Hypokalemia -resolved. K+ 3.9 on 12/12/2016. Normochromic, normocytic anemia suspect secondary to acute blood loss/ hematochezia -Transfused total of 4 RBCs since admission, and transfuse for HgB<7.0, currently stable 8.6 on 12/09/2016. -Continue Protonix 40 mg twice a day ; appreciate input from GI -Plan for EGD/Colonoscopy on 12/18/2016. Chronic obstructive pulmonary disease respiratory failure - Continue scheduled and PRN duonebs. - Benzoate PRN for cough. - Supplemental O2 to keep sats >88%. - pulmonary medicine following: solumedrol 20 mg BID x 2 days (12/07-12/09), CXR for 12/08 ordered and pending -S/P bronchoscopy 12/05/16 - cytology pathology report shows no malignancy. - Will start Robitussin AC for cough. D/C Benzoate. Full code. DVT Prophylaxis: SCDs/TEDs., Ambulation. Discussed with GI. Problem Qualifiers (1) Sepsis: (2) Acute renal failure: (3) Pneumonia: (4) Anemia: Hever Xavier DO Dec 16, 2016 12:50
[2016-12-16] MEDS ORDERED: PEG (High)/E-LYTE SOLN 4000 ML BTL PO ONE (16:00)
--- NOTE | 2016-12-16 17:06 | HHI.PR ---
Subjective Remarks Feeling tired. Had Dialysis.. Has a cough and brings up copious secretions. On O2 at 1 L . Seems stable Will Go for EGD and colonoscopy Objective Vital Signs Date Time Temp Pulse Resp B/P (MAP) Pulse Ox O2 Delivery O2 Flow Rate FiO2 12/16/16 16:57 Nasal Cannula 2.00 12/16/16 16:00 97.9 103 20 104/70 (81) 93 12/16/16 12:00 Nasal Cannula 2.00 12/16/16 12:00 99.8 109 18 100/56 (71) 94 12/16/16 09:07 95 Nasal Cannula 2.00 12/16/16 08:00 98.9 102 18 102/68 (79) 94 12/16/16 08:00 101 12/16/16 08:00 Nasal Cannula 2.00 12/16/16 07:15 Nasal Cannula 2.00 12/16/16 04:00 98.1 106 18 96/60 (72) 95 12/16/16 00:00 98.8 100 18 94/58 (70) 95 12/15/16 20:30 Nasal Cannula 2.00 12/15/16 20:03 Nasal Cannula 2.00 12/15/16 20:01 112 12/15/16 20:00 98.4 102 20 106/66 (79) 96 I/O 12/15/16 12/15/16 12/15/16 12/16/16 12/16/16 12/16/16 07:00 15:00 23:00 07:00 15:00 23:00 Output Total 1100 ml 2000 ml 700 ml Balance -1100 ml -2000 ml -700 ml Output Urine Total 1100 ml 700 ml Hemodialysis 2000 ml Result Diagram: 12/16/16 1050 12/16/16 1050 Objective Remarks GENERAL: This is a middle-aged averagely built white male who is alert and in no acute distress. HEAD, EYES, EARS, NOSE, THROAT: Head normocephalic. The pupils are reactive. Tongue is moist. Throat is clear. Nasal mucosa is clear. NECK: The neck is supple. No bruits. No thyroid enlargement. No lymphadenopathy. CHEST: Equal movements. Occ crackles right chest. Occ Wheeze scattered. HEART: Heart sounds are regular. S1 and S2. No murmur. ABDOMEN: Abdomen is soft and protuberant. No masses or tenderness. EXTREMITIES: No edema. No calf tenderness. NEUROLOGIC: Reflexes are normal. No focal deficits. SKIN: Dry and cool. Assessment and Plan Assessment and Plan IMPRESSION: 1. Extensive right lung pneumonia with hypoxemia. 2. Chronic kidney disease with acute renal failure. 3. COPD with emphysema and chronic bronchitis. 4. History of coronary artery bypass grafting. Plan : 1. Get CT chest W/O Contrast 2. O2 at 1 L.a 3. Nebs qid , duoneb 4. EGD/ Colonoscopy 5. Prednisone 10 mg daily 6. Dialysis as planned. 7. Will add PO levaquin. 8. May need Vats lung biopsy if infiltrate is persistent Alison Wilson MD Dec 16, 2016 17:06
[2016-12-16] MEDS ORDERED: LEVOFLOXACIN 500 MG TAB PO SCH (18:00)
[2016-12-16] MEDS: SODIUM CHLORIDE 0.9% FLUSH 10 ML FLUSH IV FLUSH PRN (21:11)
[2016-12-17] VITALS: BP 101/65; PULSE 115; RESP 16; TEMP 98.2; O2SAT 92
[2016-12-17 04:00] VITALS: BP 106/74; PULSE 104; RESP 18; TEMP 100; O2SAT 94
[2016-12-17 08:00] VITALS: BP 107/65; PULSE 97; RESP 16; TEMP 98.4; O2SAT 96
[2016-12-17] MEDS: SEVELAMER CARBONATE 800 MG TAB PO SCH ×3 (08:00→17:00)
[2016-12-17] MEDS: HYDROCORTISONE ACETATE 25 MG SUPP RECTAL SCH (09:00)
[2016-12-17] MEDS: ALBUMIN HUMAN 25% 25 GM/100 ML BAGP IV PRN ×2 (09:02→09:03)
[2016-12-17 10:11] LABS: AUTOMATED NEUTROPHIL # 11.2 TH/MM3 (1.8-7.7); BASOPHIL # 0.1 TH/MM3 (0-0.2); BASOPHIL % 0.5 % (0.0-2.0); EOSINOPHIL # 0.2 TH/MM3 (0-0.4); EOSINOPHIL % 1.7 % (0.0-4.0); HEMATOCRIT 21.6 % (39.0-51.0); HEMO FLAGS DIFF FINAL; LYMPH % 12.1 % (9.0-44.0); LYMPHOCYTE # 1.7 TH/MM3 (1.0-4.8); MEAN CELL VOLUME 93.7 FL (80.0-100.0); MEAN CORPUSCULAR HEMOGLOBIN 30.8 PG (27.0-34.0); MEAN CORPUSCULAR HGB CONC 32.9 % (32.0-36.0); MONO % 4.6 % (0.0-8.0); NEUT % 81.1 % (16.0-70.0); PLATELET COUNT 165 TH/MM3 (150-450); RED BLOOD COUNT 2.31 MIL/MM3 (4.50-5.90); WHITE BLOOD COUNT 13.8 TH/MM3 (4.0-11.0)
[2016-12-17 10:37] LABS: BICARBONATE 24.5 MEQ/L (21.0-32.0); POTASSIUM 3.7 MEQ/L (3.5-5.1)
[2016-12-17] MEDS: EPOETIN ALFA 10,000 UNITS/ML VIAL IV PRN (11:29)
[2016-12-17] MEDS: GENTAMICIN SULFATE (DIALYSIS USE ONLY) 20 MG/2 ML VIAL IV PRN (11:30)
[2016-12-17] MEDS: HEPARIN SODIUM - IV 10,000 UNITS/10 ML VIAL PRN (11:30)
--- NOTE | 2016-12-17 11:33 | HHI.NPPN ---
Subjective General Problems: Anemia Renal Failure: Acute Interval History Seen during dialysis. To start GI prep this evening for EGD/colonoscopy in the AM tomorrow. No issues reported. (Milla Pack) Review of Systems General Constitutional: Fatigue (Milla Pack) Respiratory Lungs: Cough, Sputum (Milla Pack) Objective Data Data Vital Signs Date Time Temp Pulse Resp B/P (MAP) Pulse Ox O2 Delivery O2 Flow Rate FiO2 12/17/16 08:00 98.4 97 16 107/65 (79) 96 12/17/16 04:00 Nasal Cannula 2.00 12/17/16 04:00 100.0 104 18 106/74 (85) 94 12/17/16 00:00 98.2 115 16 101/65 (77) 92 12/17/16 00:00 Nasal Cannula 2.00 12/16/16 20:00 Nasal Cannula 2.00 12/16/16 20:00 98.4 102 16 114/73 (87) 97 12/16/16 20:00 96 12/16/16 16:57 Nasal Cannula 2.00 12/16/16 16:00 97.9 103 20 104/70 (81) 93 12/16/16 12:00 Nasal Cannula 2.00 12/16/16 12:00 99.8 109 18 100/56 (71) 94 (Milla Pack) -: 12/17/16 0831 12/17/16 0831 Imaging Last 72 hours Impressions Chest X-Ray 12/16/16 0600 Signed Impressions: Service Date/Time: Friday, December 16, 2016 05:48 - CONCLUSION: 1. Stable appearance of dense cavitary pneumonia on the right with pleural thickening and fluid. Right central line unchanged with tip in right atrium. Rios Lai MD Tubes & Lines: Perma-Cath, Herbert (Milla Pack) Physical Exam General Appearance: Well Developed, Well Nourished, No Acute Distress, Comfortable (Milla Pack) Eyes Eye Exam: Pupils Equal, Pupils Reactive (Milla Pack) Throat Throat Exam: Oral Mucosa [place] & Moist (Milla Pack) Neck Neck Exam: Neck Supple (Milla Pack) Pulmonary Resp Exam: Clear Bilaterally, Breath Sounds Equal, No Distress, Crackles, Decreased Bases Resp Remarks crackles mostly on right upper lung field (Milla Pack) Cardiology CV Exam: Regular, Normal Sinus Rhythm, Good Perfusion (Milla Pack) Gastrointestinal/Abdomen GI Exam: Soft, Non-Tender, Bowel Sounds Present (Milla Pack) Musculoskeletal MS Exam: Joints Intact, Normal Gait, Normal Tone, Good Strength (Milla Pack) Integumentary Skin Exam: Clear, Warm, Dry, Intact (Milla Pack) Extremeties Extremities Exam: No Edema, Pedal Pulses Palpable (Milla Pack) Neurologic Neuro Exam: Alert, Awake, Oriented, Speech Clear, Moving All Extremities (Milla Pack) Psychiatric Psych Exam: Appropriate Responses (Milla Pack) Assessment/Plan Discussed Condition With: Patient Assessment Summary: SEJAL/Acute Renal Failure, Anemia of CKD Electrolyte Assessment: Hypocalcemia, Hypokalemia, Metabolic Acidosis Problem List: (1) Chronic kidney disease, stage 5 ICD Codes: N18.5 - Chronic kidney disease, stage 5 Plan: Patient likely has reached ESRD. Renal biopsy results reviewed. Seen during dialysis today on a 2K, 350 BFR, goal 2L Continue dialysis support MWF. He is non oliguric. s/p AVF surgery, no palpable thrill; vascular aware; he has appointment on 01/02 to discuss possible AVG placement monitor renal function, replace electrolytes as needed he is currently non oliguric The plan is for him to enter transitional HD program at [place]. When he is approved he can be discharged, may take several weeks. Will keep in touch with case management regarding insurance (medicaid) status. (2) Hypokalemia ICD Codes: E87.6 - Hypokalemia Status: Acute Plan: Potassium has corrected,he may have a proximal tubule disorder Follow labs, he requires frequent replacement 24 hour urine for potassium shows he has renal wasting (3) GI bleed ICD Codes: K92.2 - Gastrointestinal hemorrhage, unspecified Status: Acute Plan: Hb improved; reporting continued episodes of bloody BMs GI following, EGD/colonoscopy planned tomorrow. He does have a hx of hemorrhoids On Protonix. (4) Hypocalcemia ICD Codes: E83.51 - Hypocalcemia Plan: Continue to reat hyperphosphatemia, on Sevelamer with meals. PTH around 130, less than the range desired for stage V CKD, Calcitriol was stopped (5) Pneumonia ICD Codes: J18.9 - Pneumonia, unspecified organism Status: Acute Plan: Pulmonary following, s/p bronchoscopy. CT chest recommended No malignancies identified. On Levaquin, prednisone, and Robitussin (6) Anemia ICD Codes: D64.9 - Anemia Status: Acute Plan: continue epogen with dialysis, dosage increased no evidence of iron deficiency transfuse if necessary (7) Acidosis ICD Codes: E87.2 - Acidosis Status: Acute Plan: corrected, monitor (Milla Pack) Plan patient was seen and examined. Agree with above assessment and plan. He needs nutritional support once colonoscopy and EGD are performed. (Jim Zuluaga MD) Problem Qualifiers (1) GI bleed: (2) Pneumonia: (3) Anemia: Milla Pack Dec 17, 2016 11:32 Jim Zuluaga MD Dec 17, 2016 18:48
[2016-12-17 12:00] VITALS: BP 96/56; PULSE 111; RESP 20; TEMP 98.3; O2SAT 95
[2016-12-17] MEDS: PANTOPRAZOLE SOD 40 MG DELAYED RELEASE TAB PO SCH ×2 (12:48→20:57)
[2016-12-17] MEDS: LACTOBACILLUS ACIDOPHILUS TAB PO SCH ×2 (12:48→23:13)
[2016-12-17] MEDS: predniSONE 5 MG TAB PO SCH (12:48)
[2016-12-17] MEDS: POTASSIUM CHLORIDE 20 MEQ CONTROLLED RELEASE TAB PO SCH (12:48)
[2016-12-17] MEDS: CHOLECALCIFEROL (VIT D3) 1000 UNIT TAB PO SCH (12:48)
--- NOTE | 2016-12-17 15:53 | HHI.PR ---
Subjective Remarks Follow up for ESRD, Anemia, COPD. Patient is doing well. No chest pain, shortness of breath, fever or chills. He continues to have cough. Tolerated dialysis well today. His is scheduled for EGD colonoscopy tomorrow. Objective Vitals Vital Signs Date Time Temp Pulse Resp B/P (MAP) Pulse Ox O2 Delivery O2 Flow Rate FiO2 12/17/16 13:01 Nasal Cannula 2.00 12/17/16 12:00 98.3 111 20 96/56 (69) 95 12/17/16 08:00 98.4 97 16 107/65 (79) 96 12/17/16 08:00 Nasal Cannula 2.00 12/17/16 04:00 Nasal Cannula 2.00 12/17/16 04:00 100.0 104 18 106/74 (85) 94 12/17/16 00:00 98.2 115 16 101/65 (77) 92 12/17/16 00:00 Nasal Cannula 2.00 12/16/16 20:00 Nasal Cannula 2.00 12/16/16 20:00 98.4 102 16 114/73 (87) 97 12/16/16 20:00 96 12/16/16 16:57 Nasal Cannula 2.00 12/16/16 16:00 97.9 103 20 104/70 (81) 93 I/O 12/16/16 12/16/16 12/16/16 12/17/16 12/17/16 12/17/16 07:00 15:00 23:00 07:00 15:00 23:00 Intake Total 480 ml Output Total 700 ml 950 ml 300 ml 1500 ml Balance -700 ml -470 ml -300 ml -1500 ml Intake Oral 480 ml Output Urine Total 700 ml 950 ml 300 ml Hemodialysis 1500 ml # Bowel Movements 0 Result Diagram: 12/17/1683012/17/1631 Objective Remarks GENERAL: AOX3, NAD. SKIN: Warm and dry. HEAD: Normocephalic. EYES: No scleral icterus. No injection or drainage. NECK: Supple, trachea midline. No JVD or lymphadenopathy. CARDIOVASCULAR: Regular rate and rhythm without murmurs, gallops, or rubs. RESPIRATORY: Breath sounds equal bilaterally. No accessory muscle use. GASTROINTESTINAL: Abdomen soft, non-tender, nondistended. MUSCULOSKELETAL: No cyanosis, or edema. BACK: Nontender without obvious deformity. No CVA tenderness. Procedures 11/28/2016 Right Internal Jugular Hemodialysis Catheter Tunneled Placement dual lumen 12/02/2016 Successful right renal biopsy for function. Gelfoam and thrombin utilized. No bleeding on post CT A/P Problem List: (1) Sepsis ICD Code: A41.9 - Sepsis, unspecified organism Status: Acute (2) Acute renal failure ICD Code: N17.9 - Acute kidney failure, unspecified Status: Acute (3) Pneumonia ICD Code: J18.9 - Pneumonia, unspecified organism Status: Acute (4) Coronary artery disease ICD Code: I25.10 - Coronary artery disease Status: Acute (5) Anemia ICD Code: D64.9 - Anemia Status: Acute (6) Hematochezia ICD Code: K92.1 - Melena Status: Acute (7) Hypokalemia ICD Code: E87.6 - Hypokalemia Status: Acute Assessment and Plan 55-year-old man with Sepsis on admission suspect secondary to right multilobular pneumonia-resolved Dense cavitary pneumonia of the right lung -Pulmonary following. 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 However, patient may need AV graft. - US kidney/renal/bladder ordered and reviewed showing mild pelvocaliectasis right kidney. 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 Insurance arrangement may takes weeks. Hypokalemia -resolved. K+ 3.9 on 12/12/2016. Normochromic, normocytic anemia suspect secondary to acute blood loss/ hematochezia -Transfused total of 4 RBCs since admission, and transfuse for HgB<7.0, currently stable 8.6 on 12/09/2016. -Continue Protonix 40 mg twice a day ; appreciate input from GI -Plan for EGD/Colonoscopy on 12/18/2016. Chronic obstructive pulmonary disease respiratory failure - Continue scheduled and PRN duonebs. - Benzoate PRN for cough. - Supplemental O2 to keep sats >88%. - pulmonary medicine following: solumedrol 20 mg BID x 2 days (12/07-12/09), CXR for 12/08 ordered and pending -S/P bronchoscopy 12/05/16 - cytology pathology report shows no malignancy. - Will start Robitussin AC for cough. D/C Benzoate. - Chronic cough - Continue Robitussin before meals. If patient desires we can try Tessalon Perles. Full code. DVT Prophylaxis: SCDs/TEDs., Ambulation. Discharge plan : Patient cannot be discharged home without outpatient dialysis arrangements. Problem Qualifiers (1) Sepsis: (2) Acute renal failure: (3) Pneumonia: (4) Anemia: Hever Xavier DO Dec 17, 2016 3:53 pm
[2016-12-17 16:00] VITALS: BP 105/63; PULSE 101; RESP 20; TEMP 100; O2SAT 95
[2016-12-17] MEDS ORDERED: PEG (High)/E-LYTE SOLN 4000 ML BTL PO ONE (16:00)
--- NOTE | 2016-12-17 16:45 | HHI.GIFU ---
Subjective Remarks Pt resting in bed, no new complaints. EGD/colonoscopy tomorrow, was today but pt requested to wait b/c he had dialysis today. (Roxy Hawley) Objective Vitals I&O Vital Signs Date Time Temp Pulse Resp B/P (MAP) Pulse Ox O2 Delivery O2 Flow Rate FiO2 12/17/16 13:01 Nasal Cannula 2.00 12/17/16 12:00 98.3 111 20 96/56 (69) 95 12/17/16 08:00 98.4 97 16 107/65 (79) 96 12/17/16 08:00 Nasal Cannula 2.00 12/17/16 04:00 Nasal Cannula 2.00 12/17/16 04:00 100.0 104 18 106/74 (85) 94 12/17/16 00:00 98.2 115 16 101/65 (77) 92 12/17/16 00:00 Nasal Cannula 2.00 12/16/16 20:00 Nasal Cannula 2.00 12/16/16 20:00 98.4 102 16 114/73 (87) 97 12/16/16 20:00 96 12/16/16 16:57 Nasal Cannula 2.00 I/O 12/16/16 12/16/16 12/16/16 12/17/16 12/17/16 12/17/16 07:00 15:00 23:00 07:00 15:00 23:00 Intake Total 480 ml Output Total 700 ml 950 ml 300 ml 1500 ml Balance -700 ml -470 ml -300 ml -1500 ml Intake Oral 480 ml Output Urine Total 700 ml 950 ml 300 ml Hemodialysis 1500 ml # Bowel Movements 0 Laboratory Laboratory Tests Test 12/17/16 08:31 White Blood Count 13.8 Red Blood Count 2.31 Hemoglobin 7.1 Hematocrit 21.6 Mean Corpuscular Volume 93.7 Mean Corpuscular Hemoglobin 30.8 Mean Corpuscular Hemoglobin Concent 32.9 Red Cell Distribution Width 17.0 Platelet Count 165 Mean Platelet Volume 8.9 Neutrophils (%) (Auto) 81.1 Lymphocytes (%) (Auto) 12.1 Monocytes (%) (Auto) 4.6 Eosinophils (%) (Auto) 1.7 Basophils (%) (Auto) 0.5 Neutrophils # (Auto) 11.2 Lymphocytes # (Auto) 1.7 Monocytes # (Auto) 0.6 Eosinophils # (Auto) 0.2 Basophils # (Auto) 0.1 CBC Comment DIFF FINAL Differential Comment Blood Urea Nitrogen 51 Creatinine 5.88 Random Glucose 82 Calcium Level 8.0 Sodium Level 138 Potassium Level 3.7 Chloride Level 100 Carbon Dioxide Level 24.5 Anion Gap 14 Estimat Glomerular Filtration Rate 10 Date/Time Source Procedure Growth Status 11/22/16 15:20 Blood Peripheral Aerobic Blood Culture - Final NO GROWTH IN 5 DAYS Complete 11/22/16 15:20 Blood Peripheral Anaerobic Blood Culture - Final NO GROWTH IN 5 DAYS Complete 11/22/16 20:30 Stool Stool Cryptosporidium Exam - Final NEGATIVE - NO CRYPTOSPORIDIUM ANTIGEN... Complete 11/22/16 20:30 Stool Stool Stool Pus (MANOLO) - Final FEW WBC'S Complete 11/22/16 20:30 Stool Stool Giardia Antigen (MANOLO) - Final NEGATIVE - NO GIARDIA ANTIGEN DETECTE... Complete 12/05/16 11:41 Bronchial Washings Right Upper Lobe Fungal Smear - Final NO FUNGAL ELEMENTS SEEN. Resulted 12/05/16 11:41 Bronchial Washings Right Upper Lobe Fungal Culture - Preliminary NO GROWTH IN 1 WEEK Resulted 11/25/16 12:00 Urine Catheterized Urine Urine Culture - Final NO GROWTH IN 48 HOURS. Complete Physical Exam HEENT: Normocephalic. CHEST: Diminished throughout, 1L NC. CARDIAC: RRR ABDOMEN: Soft, nondistended, nontender; no hepatosplenomegaly; bowel sounds are present. EXTREMITIES: No clubbing, cyanosis, or edema. SKIN: Normal; no rash; no jaundice. ONLINE CONTENT EDITOR: No focal deficits; alert and oriented x 3 (Roxy Hawley [facility]) Assessment and Plan Plan ASSESSMENT: - Anemia, likely multifactorial. Rectal bleeding, ARF. S/P 4 units PRBC.Hgb 7.1 today, gradual decrease. Cleared by pulmonology for egd/colonoscopy. EGD colonoscopy tomorrow; postponed from today per pt request d/t HD - Rectal bleeding. Still having BRBPR, small amount, when he wipes after bowel movements. Sometimes, this is a copious amount of blood filling the toilet. EGD/Colonoscopy in am. - Hemorrhoids. hydrocortisone suppositories - Diarrhea. CDiff negative. No enteric pathogens, negative for cryptosporidium , negative for giardia. Few wbc. Probiotics. IMPROVED. - ARF Renal following, HD. S/P AV fistula placement - Resp. Insufficiency with multilobular PNA/severe emphysema, per pulmonary S/P Bronchoscopy (12/05/16). Improved. - Leukocytosis, Fever. Afebrile. - Weight loss- 10-15 ibs in the last 3 weeks due to poor appetite and Po intake - Hypokalemia- Secondary to above, replaced by attending - Hx of CABG, COPD per attending PLAN: - EGD/Colonoscopy in am - Clear liquids - NPO after MN - Golytely prep - Cont. PPI - Cont. Hydrocortisone supp. - Monitor HH - Transfuse as necessary - CBC, BMP in am - Supportive care - Further recommendations to follow based on results of above - Patient seen and examined by Dr. Worthington and myself and this note is written on her behalf. (Roxy Hawley) Roxy Hawley Dec 17, 2016 16:45 Thi Worthington MD Dec 17, 2016 17:57
--- NOTE | 2016-12-17 17:15 | HHI.PR ---
Subjective Remarks Feeling tired. Had Dialysis.. Has a cough and brings up copious secretions. On O2 at 1 L . Seems stable. CXR shows a dense Right lung infiltrate Will Go for EGD and colonoscopy Objective Vital Signs Date Time Temp Pulse Resp B/P (MAP) Pulse Ox O2 Delivery O2 Flow Rate FiO2 12/17/16 13:01 Nasal Cannula 2.00 12/17/16 12:00 98.3 111 20 96/56 (69) 95 12/17/16 08:00 98.4 97 16 107/65 (79) 96 12/17/16 08:00 Nasal Cannula 2.00 12/17/16 04:00 Nasal Cannula 2.00 12/17/16 04:00 100.0 104 18 106/74 (85) 94 12/17/16 00:00 98.2 115 16 101/65 (77) 92 12/17/16 00:00 Nasal Cannula 2.00 12/16/16 20:00 Nasal Cannula 2.00 12/16/16 20:00 98.4 102 16 114/73 (87) 97 12/16/16 20:00 96 I/O 12/16/16 12/16/16 12/16/16 12/17/16 12/17/16 12/17/16 07:00 15:00 23:00 07:00 15:00 23:00 Intake Total 480 ml Output Total 700 ml 950 ml 300 ml 1500 ml Balance -700 ml -470 ml -300 ml -1500 ml Intake Oral 480 ml Output Urine Total 700 ml 950 ml 300 ml Hemodialysis 1500 ml # Bowel Movements 0 Result Diagram: 12/17/1683012/17/1631 Objective Remarks GENERAL: This is a middle-aged averagely built white male who is alert and in no acute distress. HEAD, EYES, EARS, NOSE, THROAT: Head normocephalic. The pupils are reactive. Tongue is moist. Throat is clear. Nasal mucosa is clear. NECK: The neck is supple. No bruits. No thyroid enlargement. No lymphadenopathy. CHEST: Equal movements. Occ crackles right chest. HEART: Heart sounds are regular. S1 and S2. No murmur. ABDOMEN: Abdomen is soft and protuberant. No masses or tenderness. EXTREMITIES: No edema. No calf tenderness. NEUROLOGIC: Reflexes are normal. No focal deficits. SKIN: Dry and cool. Assessment and Plan Assessment and Plan IMPRESSION: 1. Extensive right lung pneumonia with hypoxemia. 2. Chronic kidney disease with acute renal failure. 3. COPD with emphysema and chronic bronchitis. 4. History of coronary artery bypass grafting. Plan : 1. Get Thoracic surgical consult for Vats Lung biopsy 2. O2 at 1 L. 3. Nebs qid , duoneb 4. EGD/ Colonoscopy 5. Prednisone 10 mg daily 6. Dialysis as planned. 7. Cont PO levaquin. Alison Wilson MD Dec 17, 2016 17:15
--- NOTE | 2016-12-17 18:19 | RADRPT ---
EXAM DATE/TIME: 12/17/2016 17:51 [place] COMPARISON: CT THORAX W/O CONTRAST, November 26, 2016, 13:54. INDICATIONS : Evaluate infiltrate, sepsis. RADIATION DOSE: 7.59 CTDIvol (mGy) MEDICAL HISTORY : Hypertension. Chronic obstructive pulmonary disease. Cardiovascular disease renal failure SURGICAL HISTORY : CABG ENCOUNTER: Subsequent ACUITY: 2 weeks PAIN SCALE: 0/10 LOCATION: Right chest TECHNIQUE: Volumetric scanning of the chest was performed. Using automated exposure control and adjustment of t he mA and/or kV according to patient size, radiation dose was kept as low as reasonably achievable to obtain optimal diagnostic quality images. DICOM format image data is available electronically for r eview and comparison. Follow-up recommendations for detected pulmonary nodules are based at a minimum on nodule size and pa tient risk factors according to Fleischner Society Guidelines. FINDINGS: Densely consolidated right upper lobe with air-filled cystic spaces and volume loss again noted. Ther e is an approximately 2.2 cm soft tissue density within one of the cystic spaces near the apex, serie s 2 image 20. This may be some debris. Fungus ball would also be in the differential. Non-consolidati ve infiltrate again seen are the right middle and lower lobes. Previously seen right pleural effusion is smaller, now trace. Emphysema and mild basilar interstitial prominence again seen on the left. Previously seen tiny left pleural effusion has resolved. Subcarinal lymph node measuring about 21 mm in greater short axis dimension again noted and not signi ficantly changed. Normal heart size. Coronary artery calcification again noted. Patient has had previous median sternot luis. CONCLUSION: 1. Dense consolidation persists in the right upper lobe with air bronchograms and air filled cystic s paces. Debris versus possible fungus ball in one of the cystic spaces at the apex which is new. Multi -organism pneumonia suspected. 2. Non-consolidative patchy infiltrate of the right middle and lower lobes not significantly changed. 3. Decreased pleural effusion on the right, now trace. Completely resolved pleural effusion on the le ft. 4. Previous median sternotomy. Caio Wray MD on December 17, 2016 at 18:11 Board Certified Radiologist. This report was verified electronically.
[2016-12-17 20:00] VITALS: BP 99/65; PULSE 93; PULSE 97; RESP 18; TEMP 97.9; O2SAT 95
[2016-12-17] MEDS: SODIUM CHLORIDE 0.9% FLUSH 10 ML FLUSH IV FLUSH PRN (20:58)
[2016-12-18] VITALS (8 sets, daily range): BP systolic 105–130; BP diastolic 59–81; PULSE 86–97; RESP 16–20; TEMP 97.3–99; O2SAT 92–98
[2016-12-18] MEDS ORDERED: LACTATED RINGER'S 1000 ML IV PRN (04:00)
[2016-12-18] MEDS ORDERED: POVIDONE IODINE 5% (ANTISEPSIS KIT) 4 APPLICATIONS EACH NARE PRN (04:00)
[2016-12-18] MEDS ORDERED: SODIUM CHLORID 0.9% 500 ML IV PRN (04:00)
[2016-12-18] MEDS ORDERED: METOPROLOL TARTRATE 25 MG TAB PO PRN (04:00)
[2016-12-18] MEDS ORDERED: CHLORHEXIDINE GLUCONATE 2 % 1 PACK (2 CLOTHS) TOPICAL PRN (04:00)
[2016-12-18] MEDS ORDERED: INSULIN HUMAN REGULAR 1,000 UNITS/10 ML VIAL SQ PRN (04:00)
[2016-12-18] MEDS: SEVELAMER CARBONATE 800 MG TAB PO SCH ×3 (08:00→17:36)
[2016-12-18] MEDS: HYDROCORTISONE ACETATE 25 MG SUPP RECTAL SCH ×2 (09:00→20:07)
[2016-12-18] MEDS ORDERED: PROPOFOL 200 MG/20 ML AMP IV PUSH ONE (12:03)
[2016-12-18] MEDS ORDERED: DO NOT ADM ANY ANTICOAGULANT DRUGS PRN ×2 (12:08)
--- NOTE | 2016-12-18 12:11 | GIPROC ---
[facility] [address] [facility]. [facility], [address] COLONOSCOPY PROCEDURE REPORT EXAM DATE: 12/18/2016 PATIENT NAME: Broderick Fonseca MR #: [id number] BIRTHDATE: 1960 ENDOSCOPIST: Thi Worthington MD ORDER #: [id number] POLYMER TESTER: Meghann Lo and Yoko Benítez STATUS: inpatient INDICATIONS: The patient is a 55 yr old male here for a colonoscopy due to rectal bleeding PROCEDURE PERFORMED: Colonoscopy with biopsy MEDICATIONS: None and Per Anesthesia. PREP QUALITY: good PREP TYPE:GoLytely ESTIMATED BLOOD LOSS: None CONSENT: The patient understands the risks and benefits of the procedure and understands that these risks include, but are not limited to: sedation, allergic reaction, infection, perforation and/or bleeding. Alternative means of evaluation and treatment include, among others: physical exam, x-rays, and/or surgical intervention. The patient elects to proceed with this endoscopic procedure. medical equipment was checked for proper function. Hand hygiene and appropriate measures for infection prevention was taken. After the risks, benefits and alternatives of the procedure were thoroughly explained, Informed consent was verified, confirmed and timeout was successfully executed by the treatment team. A digital exam revealed external hemorrhoids The Pentax EC-[id number] endoscope was introduced through the anus and advanced to the cecum, which was identified by both the appendix and ileocecal valve. The instrument was then slowly withdrawn as the colon was fully examined. COLON FINDINGS: Diverticulosis sigmoid internal hemorrhoids grade 2. Diminutive polyp ascending colon-5 mm-cold biopsy. Retroflexed views revealed internal hemorrhoids and Retroflexed views revealed medium internal hemorrhoids The scope was then completely withdrawn from the patient and the procedure terminated. PROCEDURE WITHDRAWAL TIME:6minutes ADVERSE EVENTS: There were no complications. IMPRESSIONS: 1. Diverticulosis sigmoid internal hemorrhoids grade 2 2. Retroflexed views revealed internal hemorrhoids 3. Retroflexed views revealed medium internal hemorrhoids 4. Revealed external hemorrhoids RECOMMENDATIONS: 1. Await biopsy results. Biopsy results will not be ready for 7-10 days. If you don't hear from us in two weeks, call our office for results. 2. Benefiber 2 tsp daily 3. High fiber diet 4. Probiotics from any [facility] or health food store RECALL: Colonoscopy, pending biopsy results Thi Worthington MD eSigned: Thi Worthington MD 12/18/2016 12:11 PM cc:
--- NOTE | 2016-12-18 12:13 | GIPROC ---
[facility] [address] [facility]. [facility], [address] EGD PROCEDURE REPORT EXAM DATE: 12/18/2016 PATIENT NAME: Broderick Fonseca MR #: [id number] BIRTHDATE: 1960 ATTENDING: Thi Worthington MD ORDER #: [id number] FIELD ACCOUNT DIRECTOR: Meghann Lo and Yoko Benítez STATUS: inpatient INDICATIONS: The patient is a 55 yr old male here for an EGD due to anemia , gi bleeding PROCEDURE PERFORMED: EGD w/ biopsy MEDICATIONS: None and Per Anesthesia. TOPICAL ANESTHETIC: none CONSENT: The patient understands the risks and benefits of the procedure and understands that these risks include, but are not limited to: sedation, allergic reaction, infection, perforation and/or bleeding. Alternative means of evaluation and treatment include, among others: physical exam, x-rays, and/or surgical intervention. The patient elects to proceed with this endoscopic procedure. medical equipment was checked for proper function. Hand hygiene and appropriate measures for infection prevention was taken. After the risks, benefits and alternatives of the procedure were thoroughly explained, Informed consent was verified, confirmed and timeout was successfully executed by the treatment team. The patient was anesthetized with topical anesthesia and the EC-[id number] (Pedi C) endoscope was introduced through the mouth and advanced to the second portion of the duodenum. Retroflexed views revealed a hiatal hernia The gastroscope was then slowly withdrawn and removed. Gastritis antrum-biopsy esophagitis dital esophagus -biopsy normal duodenum-biopsy. ADVERSE EVENTS: There were no complications. IMPRESSIONS: 1. Gastritis antrum-biopsy esophagitis dital esophagus -biopsy normal duodenum-biopsy 2. Retroflexed views revealed a hiatal hernia RECOMMENDATIONS: 1. Anti-reflux regimen 2. Continue PPI 3. Avoid NSAIDS PATIENT CONDITION: stable DISPOSITION: Inpatient REPEAT EXAM: EGD pending biopsy results Thi Worthington MD eSigned: Thi Worthington MD 12/18/2016 12:13 PM cc: PATIENT NAME: Broderick Fonseca MR#: [id number]
--- NOTE | 2016-12-18 12:34 | HHI.PR ---
Subjective Remarks For EGD today. Had Dialysis.. Has a cough and brings up copious secretions. On O2 at [address] chest shows a Cavity with a poss Fungus Ball. Bronchial wash so far Negative Objective Vital Signs Date Time Temp Pulse Resp B/P (MAP) Pulse Ox O2 Delivery O2 Flow Rate FiO2 12/18/16 08:06 95 Nasal Cannula 2.00 12/18/16 08:00 Nasal Cannula 2.00 12/18/16 08:00 99.0 91 18 112/59 (76) 94 12/18/16 04:00 98.1 97 20 111/67 (82) 98 12/18/16 00:00 97.9 88 18 105/63 (77) 92 12/18/16 00:00 Nasal Cannula 2.00 12/17/16 22:37 Nasal Cannula 2.00 12/17/16 20:00 93 12/17/16 20:00 97.9 97 18 99/65 (76) 95 12/17/16 20:00 Nasal Cannula 2.00 12/17/16 17:21 Room Air 12/17/16 16:00 100.0 101 20 105/63 (77) 95 12/17/16 13:01 Nasal Cannula 2.00 I/O 12/17/16 12/17/16 12/17/16 12/18/16 12/18/16 12/18/16 07:00 15:00 23:00 07:00 15:00 23:00 Intake Total 0 ml 500 ml Output Total 300 ml 1500 ml 550 ml Balance -300 ml -1500 ml -550 ml 500 ml Intake Oral 0 ml Other 500 ml Output Urine Total 300 ml 550 ml Hemodialysis 1500 ml # Bowel Movements 6 Result Diagram: 12/17/1631 12/17/16 0831 Objective Remarks GENERAL: This is a middle-aged averagely built white male who is alert and in no acute distress. HEAD, EYES, EARS, NOSE, THROAT: Head normocephalic. The pupils are reactive. Tongue is moist. Throat is clear. Nasal mucosa is clear. NECK: The neck is supple. No bruits. No thyroid enlargement. No lymphadenopathy. CHEST: Equal movements. Occ crackles right chest. Wheeze heard HEART: Heart sounds are regular. S1 and S2. No murmur. ABDOMEN: Abdomen is soft and protuberant. No masses or tenderness. EXTREMITIES: No edema. No calf tenderness. NEUROLOGIC: Reflexes are normal. No focal deficits. SKIN: Dry and cool. Assessment and Plan Assessment and Plan IMPRESSION: 1. Extensive right lung pneumonia with Cavitation and Poss Fungal Infection 2. Chronic kidney disease with acute renal failure. 3. COPD with emphysema and chronic bronchitis. 4. History of coronary artery bypass grafting. Plan : 1. Get Thoracic surgical consult for Vats Lung biopsy 2. O2 at 1 L. 3. Nebs qid , duoneb 4. ID consult for Eval of Fungal Infection 5. Prednisone 5 mg daily 6. Dialysis as planned. 7. D/C areli. Alison Wilson MD Dec 18, 2016 12:34
[2016-12-18] MEDS: PANTOPRAZOLE SOD 40 MG DELAYED RELEASE TAB PO SCH ×2 (13:47→20:06)
[2016-12-18] MEDS: predniSONE 5 MG TAB PO SCH (13:48)
[2016-12-18] MEDS: POTASSIUM CHLORIDE 20 MEQ CONTROLLED RELEASE TAB PO SCH (13:48)
[2016-12-18] MEDS: LACTOBACILLUS ACIDOPHILUS TAB PO SCH ×2 (13:48→20:06)
[2016-12-18] MEDS: CHOLECALCIFEROL (VIT D3) 1000 UNIT TAB PO SCH (13:48)
--- NOTE | 2016-12-18 19:32 | PD.ID.CON ---
History of Present Illness Service ID Consult Requested By Dr Leonides Roth Reason for Consult ? pulmonatry aspegrgillosis Primary Care Physician No Primary Care Physician Diagnoses: History of Present Illness Chart reviewed 55 yo male with 6 weeks of fever, SOB, worsening cough On presentation pt was found to have ARF on CKD His renal biopsy revealed severe interstitial fibrosis, tubular atrophy and findings suggestive MPGN, with significant global glomerular sclerosis. He was start on dialysis support MWF AVF attenmpted, but failed, he has Permacath Reports worsning expectoration with increasing phlegm produciton On presentation he was found tro have dense RUL PNA on CT His expectoration sputuma and BAL were unreveealing Though he feels better he endorses worsening sputum production His repeat CT from yday showed again dense consolidation persists in the right upper lobe with air bronchograms and air filled cystic spaces. Debris versus possible fungus ball in one of the cystic spaces at the apex which is new. Multi-organism pneumonia suspected. CT surgery consulted for bx Review of Systems Except as stated in HPI: all other systems reviewed are Neg Past Family Social History Allergies: Coded Allergies: No Known Allergies (Unverified , 09/26/13) Past Medical History CAD with CABG 2013 COPD Tobacco history Recently diagnosed with HEp C ARF in 2013 Past Surgical History CABG 2014 x 3 vessels Active Ordered Medications Medications where reviewed in EMR Antibiotics Include: none Family History Paternal family medical history significant for cardiovascular disease all related to tobacco use. Social History Patient denies any current tobacco use, quit in 2013. Denies any alcohol use. Denies any illicit drug us Physical Exam Vital Signs Vital Signs Date Time Temp Pulse Resp B/P (MAP) Pulse Ox O2 Delivery O2 Flow Rate FiO2 12/18/16 17:38 Nasal Cannula 2.00 12/18/16 16:00 97.9 86 16 130/72 (91) 98 12/18/16 13:53 Nasal Cannula 2.00 12/18/16 13:00 80 13 91/54 (66) 100 Nasal Cannula 2 12/18/16 12:45 83 18 103/65 (78) 98 Nasal Cannula 2 12/18/16 12:30 93 22 106/62 (77) 93 Nasal Cannula 2 12/18/16 12:15 79 12 78/49 (59) 99 Nasal Cannula 2 12/18/16 12:10 97.5 87 12 71/41 (51) 98 Nasal Cannula 2 12/18/16 08:06 95 Nasal Cannula 2.00 12/18/16 08:05 89 12/18/16 08:05 96 12/18/16 08:00 Nasal Cannula 2.00 12/18/16 08:00 99.0 91 18 112/59 (76) 94 12/18/16 04:00 98.1 97 20 111/67 (82) 98 12/18/16 00:00 97.9 88 18 105/63 (77) 92 12/18/16 00:00 Nasal Cannula 2.00 12/17/16 22:37 Nasal Cannula 2.00 12/17/16 20:00 93 12/17/16 20:00 97.9 97 18 99/65 (76) 95 12/17/16 20:00 Nasal Cannula 2.00 Physical Exam CONSTITUTIONAL/GENERAL: This is an adequately nourished patient, in no apparent distress. TUBES/LINES/DRAINS: Permcath in place R IJ - OK SKIN: No jaundice, rashes, or lesions. Ecchymoses on upper extremities. No wounds seen anteriorly. Skin temperature appropriate. Not diaphoretic. HEAD: Atraumatic. Normocephalic. EYES: Pupils equal and round and reactive. Extraocular motions intact. No scleral icterus. No injection or drainage. Fundi not examined. ENT: Hearing grossly normal. Nose without bleeding or purulent drainage. Throat without visible erythema, exudates, masses, or lesions. NECK: Trachea midline. Supple, nontender. No palpable thyroid enlargement or nodularity. CARDIOVASCULAR: Regular rate and rhythm without murmurs, gallops, or rubs. No JVD. Peripheral pulses symmetric. RESPIRATORY/CHEST: Symmetric, unlabored respirations. Clear to auscultation. Breath sounds equal bilaterally. No wheezes, rales, or rhonchi. GASTROINTESTINAL: Abdomen soft, non-tender, nondistended. No hepato-splenomegaly , or palpable masses. No guarding. Bowel sounds present. GENITOURINARY: Without palpable bladder distension MUSCULOSKELETAL: Extremities without clubbing, cyanosis, or edema. No joint tenderness or effusion noted. No calf tenderness. No mottling or clubbing. LYMPHATICS: No palpable cervical or supraclavicular adenopathy. NEUROLOGICAL: Awake and alert. Motor and sensory grossly within normal limits. Follows commands. Clear speech Moves all extremities. PSYCHIATRIC: No obvious anxiety/depression. no apparent hallucinations or other psychotic thought process. Laboratory Date/Time Source Procedure Growth Status 11/22/16 15:20 Blood Peripheral Aerobic Blood Culture - Final NO GROWTH IN 5 DAYS Complete 11/22/16 15:20 Blood Peripheral Anaerobic Blood Culture - Final NO GROWTH IN 5 DAYS Complete 11/22/16 20:30 Stool Stool Cryptosporidium Exam - Final NEGATIVE - NO CRYPTOSPORIDIUM ANTIGEN... Complete 11/22/16 20:30 Stool Stool Stool Pus (MANOLO) - Final FEW WBC'S Complete 11/22/16 20:30 Stool Stool Giardia Antigen (MANOLO) - Final NEGATIVE - NO GIARDIA ANTIGEN DETECTE... Complete 12/05/16 11:41 Bronchial Washings Right Upper Lobe Fungal Smear - Final NO FUNGAL ELEMENTS SEEN. Resulted 12/05/16 11:41 Bronchial Washings Right Upper Lobe Fungal Culture - Preliminary NO GROWTH IN 1 WEEK Resulted 11/25/16 12:00 Urine Catheterized Urine Urine Culture - Final NO GROWTH IN 48 HOURS. Complete Result Diagram: 12/17/1631 12/17/16 0831 Imaging Last Impressions Chest CT 12/17/16 1715 Signed Impressions: Service Date/Time: Saturday, December 17, 2016 17:51 - CONCLUSION: 1. Dense consolidation persists in the right upper lobe with air bronchograms and air filled cystic spaces. Debris versus possible fungus ball in one of the cystic spaces at the apex which is new. Multi-organism pneumonia suspected. 2. Non-consolidative patchy infiltrate of the right middle and lower lobes not significantly changed. 3. Decreased pleural effusion on the right, now trace. Completely resolved pleural effusion on the left. 4. Previous median sternotomy. Caio Wray MD Chest X-Ray 12/16/16 0600 Signed Impressions: Service Date/Time: Friday, December 16, 2016 05:48 - CONCLUSION: 1. Stable appearance of dense cavitary pneumonia on the right with pleural thickening and fluid. Right central line unchanged with tip in right atrium. Rios Lai MD Upper Extremity Ultrasound 12/04/16 0000 Signed Impressions: Service Date/Time: November 18:26 - CONCLUSION: Venous mapping as delineated above. The cephalic veins are abnormal bilaterally. Caio Villalpando MD Renal Biopsy CT 12/02/16 1350 Signed Impressions: Service Date/Time: Friday, December 02, 2016 08:33 - CONCLUSION: Uncomplicated CT guided biopsy of the right kidney for function. Mustapha Vela Jr., MD Catheter Placement X-Ray 11/28/16 0000 Signed Impressions: Service Date/Time: Monday, November 28, 2016 15:57 - CONCLUSION: Uncomplicated PermaCath placement as above. Mustapha Vela Jr., MD Renal Ultrasound 11/22/16 0000 Signed Impressions: Service Date/Time: Tuesday, November 22, 2016 17:14 - CONCLUSION: Mild pelvocaliectasis right kidney not present previously. Obdulia Garcia MD Assessment and Plan Assessment and Plan Unresolving culture negative cavitary PNA, RUL with probable fungus ball Aspergiall suspected radiographically, however Aspergilla is usually readily growing in the sputum. Im unable to to establish microbiological diagnosis with out positive culture or path in this case ESRD HEp C Pt is clincially stable and afebrile Rec's: agree with open lung bx plan further rec's per path and surgical cultures result no abx at this point Discussed Condition With Dr Ira Fontanez,Paz Hansen MD Dec 18, 2016 19:32
[2016-12-19] VITALS (8 sets, daily range): BP systolic 114–130; BP diastolic 61–77; PULSE 85–100; RESP 18–20; TEMP 97.6–98.3; O2SAT 97–100
[2016-12-19] MEDS: SEVELAMER CARBONATE 800 MG TAB PO SCH ×3 (08:00→16:57)
--- NOTE | 2016-12-19 08:02 | HHI.PR ---
Addendum to Inpatient Note Additional Information Late entry for 12/18/2016. Patient was in procedure. Chart reviewed. Will see patient on 12/19/2016. Hever Xavier DO Dec 19, 2016 08:02
[2016-12-19] MEDS: ALBUMIN HUMAN 25% 25 GM/100 ML BAGP IV PRN (08:36)
[2016-12-19] MEDS: HYDROCORTISONE ACETATE 25 MG SUPP RECTAL SCH ×3 (09:00→20:43)
--- NOTE | 2016-12-19 09:00 | HHI.NPPN ---
Subjective General Problems: Anemia Renal Failure: Acute Interval History Tolerated EGD yesterday. To have open lung biopsy in upcoming days. No new complaints. (Milla Pack) Review of Systems General Constitutional: Fatigue (Milla Pack) Respiratory Lungs: Cough, Sputum (Milla Pack) Objective Data Data Vital Signs Date Time Temp Pulse Resp B/P (MAP) Pulse Ox O2 Delivery O2 Flow Rate FiO2 12/19/16 04:00 98.0 85 20 130/67 (88) 99 12/19/16 00:00 98.3 88 20 126/77 (93) 97 12/18/16 20:56 98 Nasal Cannula 2.00 12/18/16 20:00 97.3 90 20 113/81 (92) 97 12/18/16 20:00 Nasal Cannula 2.00 12/18/16 20:00 89 12/18/16 17:38 Nasal Cannula 2.00 12/18/16 16:00 97.9 86 16 130/72 (91) 98 12/18/16 13:53 Nasal Cannula 2.00 12/18/16 13:00 80 13 91/54 (66) 100 Nasal Cannula 2 12/18/16 12:45 83 18 103/65 (78) 98 Nasal Cannula 2 12/18/16 12:30 93 22 106/62 (77) 93 Nasal Cannula 2 12/18/16 12:15 79 12 78/49 (59) 99 Nasal Cannula 2 12/18/16 12:10 97.5 87 12 71/41 (51) 98 Nasal Cannula 2 (Milla Pack) -: 12/17/16 0831 12/17/16 0831 Imaging Last [address] 12/17/16 9085 Signed Impressions: Service Date/Time: Saturday, December 17, 2016 17:51 - CONCLUSION: 1. Dense consolidation persists in the right upper lobe with air bronchograms and air filled cystic spaces. Debris versus possible fungus ball in one of the cystic spaces at the apex which is new. Multi-organism pneumonia suspected. 2. Non-consolidative patchy infiltrate of the right middle and lower lobes not significantly changed. 3. Decreased pleural effusion on the right, now trace. Completely resolved pleural effusion on the left. 4. Previous median sternotomy. Caio Wray MD Tubes & Lines: Perma-Cath, Herbert (Milla Pack) Physical Exam General Appearance: Well Developed, Well Nourished, No Acute Distress, Comfortable (Milla PackP) Eyes Eye Exam: Pupils Equal, Pupils Reactive (Milla Pack [employer]EMAKING [employer]PERVISOR) Throat Throat Exam: Oral Mucosa Raymond & Moist (Milla Pack [employer]EMAK[employer] SUPERVIS[employer]) Neck Neck Exam: Neck Supple (Milla Pack [employer]EMAK[employer] SUPERVISOR) Pulmonary Resp Exam: Clear Bilaterally, Breath Sounds Equal, No Distress, Crackles, Decreased Bases Resp Remarks crackles mostly on right upper lung field (Milla PackP) Cardiology CV Exam: Regular, Normal Sinus Rhythm, Good Perfusion (Milla Pack [employer]EMAKING SUPERVISOR) Gastrointestinal/Abdomen GI Exam: Soft, Non-Tender, Bowel Sounds Present (Milla Pack) Musculoskeletal MS Exam: Joints Intact, Normal Gait, Normal Tone, Good Strength (Milla Pack) Integumentary Skin Exam: Clear, Warm, Dry, Intact (Milla Pack) Extremeties Extremities Exam: No Edema, Pedal Pulses Palpable (Milla Pack) Neurologic Neuro Exam: Alert, Awake, Oriented, Speech Clear, Moving All Extremities (Milla Pack [employer]EMAKING SUPERVISOR) Psychiatric Psych Exam: Appropriate Responses (Milla Pack) Assessment/Plan Discussed Condition With: Patient Assessment Summary: SEJAL/Acute Renal Failure, Anemia of CKD Electrolyte Assessment: Hypocalcemia, Hypokalemia, Metabolic Acidosis Problem List: (1) Chronic kidney disease, stage 5 ICD Codes: N18.5 - Chronic kidney disease, stage 5 Plan: Patient likely has reached ESRD. Renal biopsy results reviewed. Seen during dialysis today on a 3K, 350 BFR, ogal 1700 mo Continue dialysis support MWF. He is non oliguric. s/p AVF surgery, no palpable thrill; vascular aware; he has appointment on 01/02 to discuss possible AVG placement; May need to see him inpatient if he is not discharged by then. monitor renal function, replace electrolytes as needed he is currently non oliguric Start nutritional support with meals; on high protein diet The plan is for him to enter transitional HD program at [place]. When he is approved he can be discharged, may take several weeks. Will keep in touch with case management regarding insurance (medicaid) status. (2) Hypokalemia ICD Codes: E87.6 - Hypokalemia Status: Acute Plan: Potassium has corrected,he may have a proximal tubule disorder Follow labs, he requires frequent replacement 24 hour urine for potassium shows he has renal wasting On daily oral KCL replacement (3) GI bleed ICD Codes: K92.2 - Gastrointestinal hemorrhage, unspecified Status: Acute Plan: Hb improved; reporting continued episodes of bloody BMs GI following, s/p EGD/colonoscopy yesterday; results showing esophagitis He does have a hx of hemorrhoids On Protonix. (4) Hypocalcemia ICD Codes: E83.51 - Hypocalcemia Plan: Continue to reat hyperphosphatemia, on Sevelamer with meals. PTH around 130, less than the range desired for stage V CKD, Calcitriol was stopped (5) Pneumonia ICD Codes: J18.9 - Pneumonia, unspecified organism Status: Acute Plan: Pulmonary following, s/p bronchoscopy. CT chest taken No malignancies identified. On prednisone, and Robitussin; Antibiotics were stopped Concern for aspergillus fungal ball in right lung, will need VATS biopsy ID has evaluated (6) Anemia ICD Codes: D64.9 - Anemia Status: Acute Plan: continue epogen with dialysis, dosage increased no evidence of iron deficiency transfuse if necessary (7) Acidosis ICD Codes: E87.2 - Acidosis Status: Acute Plan: corrected, monitor (Milla Pack) Plan patient was seen and examined. Agree with above assessment and plan. (Jim Zuluaga MD) Problem Qualifiers (1) GI bleed: (2) Pneumonia: (3) Anemia: Milla Pack Dec 19, 2016 09:00 Jim Zuluaga MD Dec 19, 2016 13:53
[2016-12-19 09:11] LABS: AUTOMATED NEUTROPHIL # 4.1 TH/MM3 (1.8-7.7); BASOPHIL % 0.7 % (0.0-2.0); EOSINOPHIL # 0.2 TH/MM3 (0-0.4); EOSINOPHIL % 2.5 % (0.0-4.0); LYMPHOCYTE # 1.9 TH/MM3 (1.0-4.8); MEAN CELL VOLUME 93.7 FL (80.0-100.0); MEAN CORPUSCULAR HEMOGLOBIN 30.9 PG (27.0-34.0); MEAN CORPUSCULAR HGB CONC 32.9 % (32.0-36.0); MONO % 5.2 % (0.0-8.0); NEUT % 62.6 % (16.0-70.0); PLATELET COUNT 169 TH/MM3 (150-450); RED BLOOD COUNT 2.19 MIL/MM3 (4.50-5.90); RED CELL DISTRIBUTION WIDTH 17.1 % (11.6-17.2); WHITE BLOOD COUNT 6.6 TH/MM3 (4.0-11.0)
[2016-12-19 09:40] LABS: BICARBONATE 27.5 MEQ/L (21.0-32.0); POTASSIUM 3.4 MEQ/L (3.5-5.1)
[2016-12-19 09:54] LABS: HEMO FLAGS DIFF FINAL
[2016-12-19 09:55] LABS: HEMATOCRIT 20.5 % (39.0-51.0)
[2016-12-19] MEDS ORDERED: SODIUM CHLOR 0.9% 250 ML INJ 250 ML IV ONE (10:00)
[2016-12-19] MEDS ORDERED: ACETAMINOPHEN 325 MG TAB PO PRN (10:00)
[2016-12-19] MEDS ORDERED: diphenhydrAMINE HCL 25 MG CAP PO PRN (10:00)
[2016-12-19] MEDS: HEPARIN SODIUM - IV 10,000 UNITS/10 ML VIAL PRN (10:47)
[2016-12-19] MEDS: EPOETIN ALFA 10,000 UNITS/ML VIAL IV PRN (10:47)
[2016-12-19] MEDS: GENTAMICIN SULFATE (DIALYSIS USE ONLY) 20 MG/2 ML VIAL IV PRN (10:47)
--- NOTE | 2016-12-19 11:27 | PD.CAR.PN ---
CVT Progress Note Subjective/Hospital Course: We have been asked to see this patient for possible lung biopsy. Unfortunately , he has been in procedures both yesterday and today which precluded me from discussing surgical planning. Objective: Vital Signs Date Time Temp Pulse Resp B/P (MAP) Pulse Ox O2 Delivery O2 Flow Rate FiO2 12/19/16 08:10 Nasal Cannula 2.00 12/19/16 08:10 92 12/19/16 08:10 92 12/19/16 04:00 98.0 85 20 130/67 (88) 99 12/19/16 00:00 98.3 88 20 126/77 (93) 97 12/18/16 20:56 98 Nasal Cannula 2.00 12/18/16 20:00 97.3 90 20 113/81 (92) 97 12/18/16 20:00 Nasal Cannula 2.00 12/18/16 20:00 89 12/18/16 17:38 Nasal Cannula 2.00 12/18/16 16:00 97.9 86 16 130/72 (91) 98 12/18/16 13:53 Nasal Cannula 2.00 12/18/16 13:00 80 13 91/54 (66) 100 Nasal Cannula 2 12/18/16 12:45 83 18 103/65 (78) 98 Nasal Cannula 2 12/18/16 12:30 93 22 106/62 (77) 93 Nasal Cannula 2 12/18/16 12:15 79 12 78/49 (59) 99 Nasal Cannula 2 12/18/16 12:10 97.5 87 12 71/41 (51) 98 Nasal Cannula 2 Labs: Laboratory Tests Test 12/19/16 07:55 White Blood Count 6.6 TH/MM3 (4.0-11.0) Red Blood Count 2.19 MIL/MM3 (4.50-5.90) Hemoglobin 6.8 GM/DL (13.0-17.0) Hematocrit 20.5 % (39.0-51.0) Mean Corpuscular Volume 93.7 FL (80.0-100.0) Mean Corpuscular Hemoglobin 30.9 PG (27.0-34.0) Mean Corpuscular Hemoglobin Concent 32.9 % (32.0-36.0) Red Cell Distribution Width 17.1 % (11.6-17.2) Platelet Count 169 TH/MM3 (150-450) Mean Platelet Volume 8.7 FL (7.0-11.0) Neutrophils (%) (Auto) 62.6 % (16.0-70.0) Lymphocytes (%) (Auto) 29.0 % (9.0-44.0) Monocytes (%) (Auto) 5.2 % (0.0-8.0) Eosinophils (%) (Auto) 2.5 % (0.0-4.0) Basophils (%) (Auto) 0.7 % (0.0-2.0) Neutrophils # (Auto) 4.1 TH/MM3 (1.8-7.7) Lymphocytes # (Auto) 1.9 TH/MM3 (1.0-4.8) Monocytes # (Auto) 0.3 TH/MM3 (0-0.9) Eosinophils # (Auto) 0.2 TH/MM3 (0-0.4) Basophils # (Auto) 0.0 TH/MM3 (0-0.2) CBC Comment DIFF FINAL Differential Comment Blood Urea Nitrogen 35 MG/DL (7-18) Creatinine 5.72 MG/DL (0.60-1.30) Random Glucose 83 MG/DL (74-106) Albumin 1.8 GM/DL (3.4-5.0) Calcium Level 8.7 MG/DL (8.5-10.1) Phosphorus Level 7.0 MG/DL (2.5-4.9) Sodium Level 139 MEQ/L (136-145) Potassium Level 3.4 MEQ/L (3.5-5.1) Chloride Level 101 MEQ/L (98-107) Carbon Dioxide Level 27.5 MEQ/L (21.0-32.0) Anion Gap 11 MEQ/L (5-15) Estimat Glomerular Filtration Rate 10 ML/MIN (>89) Result Diagram: 12/19/16 0755 12/19/16 0755 Plan: I juan josé complete his consult and surgical planning when the patient is available. Carmelita Roth MD Dec 19, 2016 11:27
[2016-12-19] MEDS: LACTOBACILLUS ACIDOPHILUS TAB PO SCH ×2 (13:05→20:42)
[2016-12-19] MEDS: CHOLECALCIFEROL (VIT D3) 1000 UNIT TAB PO SCH (13:06)
[2016-12-19] MEDS: PANTOPRAZOLE SOD 40 MG DELAYED RELEASE TAB PO SCH ×2 (13:06→20:42)
[2016-12-19] MEDS: POTASSIUM CHLORIDE 20 MEQ CONTROLLED RELEASE TAB PO SCH (13:06)
[2016-12-19] MEDS: predniSONE 5 MG TAB PO SCH (13:06)
--- NOTE | 2016-12-19 15:48 | HHI.PR ---
Subjective Remarks Follow up for ESRD, Anemia, COPD. patient is currently doing well. Denies any chest pain, fever or chills. He is currently on supplemental oxygen via nasal cannula. Objective Vitals Vital Signs Date Time Temp Pulse Resp B/P (MAP) Pulse Ox O2 Delivery O2 Flow Rate FiO2 12/19/16 14:26 98.0 87 18 114/61 100 12/19/16 14:10 98.3 85 18 115/74 99 12/19/16 08:10 Nasal Cannula 2.00 12/19/16 08:10 92 12/19/16 08:10 92 12/19/16 04:00 98.0 85 20 130/67 (88) 99 12/19/16 00:00 98.3 88 20 126/77 (93) 97 12/18/16 20:56 98 Nasal Cannula 2.00 12/18/16 20:00 97.3 90 20 113/81 (92) 97 12/18/16 20:00 Nasal Cannula 2.00 12/18/16 20:00 89 12/18/16 17:38 Nasal Cannula 2.00 12/18/16 16:00 97.9 86 16 130/72 (91) 98 I/O 12/18/16 12/18/16 12/18/16 12/19/16 12/19/16 12/19/16 07:00 15:00 23:00 07:00 15:00 23:00 Intake Total 0 ml 1360 ml 600 ml 260 ml Output Total 550 ml 675 ml 1850 ml Balance -550 ml 1360 ml -75 ml -1590 ml Intake Oral 0 ml 360 ml 600 ml IV Total 500 ml Blood Product IV Normal Saline Flush 260 ml Other 500 ml Output Urine Total 550 ml 675 ml 450 ml Hemodialysis 1400 ml # Voids 1 # Bowel Movements 6 0 Result Diagram: 12/19/16 0755 12/19/16 0755 Imaging Last Impressions Chest CT 12/17/16 1715 Signed Impressions: Service Date/Time: Saturday, December 17, 2016 17:51 - CONCLUSION: 1. Dense consolidation persists in the right upper lobe with air bronchograms and air filled cystic spaces. Debris versus possible fungus ball in one of the cystic spaces at the apex which is new. Multi-organism pneumonia suspected. 2. Non-consolidative patchy infiltrate of the right middle and lower lobes not significantly changed. 3. Decreased pleural effusion on the right, now trace. Completely resolved pleural effusion on the left. 4. Previous median sternotomy. Caio Wray MD Chest X-Ray 12/16/16 0600 Signed Impressions: Service Date/Time: Friday, December 16, 2016 05:48 - CONCLUSION: 1. Stable appearance of dense cavitary pneumonia on the right with pleural thickening and fluid. Right central line unchanged with tip in right atrium. Rios Lai MD Upper Extremity Ultrasound 12/04/16 0000 Signed Impressions: Service Date/Time: November 18:26 - CONCLUSION: Venous mapping as delineated above. The cephalic veins are abnormal bilaterally. Caio Villalpando MD Renal Biopsy CT 12/02/16 1350 Signed Impressions: Service Date/Time: Friday, December 02, 2016 08:33 - CONCLUSION: Uncomplicated CT guided biopsy of the right kidney for function. Mustapha Vela Jr., MD Catheter Placement X-Ray 11/28/16 0000 Signed Impressions: Service Date/Time: Monday, November 28, 2016 15:57 - CONCLUSION: Uncomplicated PermaCath placement as above. Mustapha Vela Jr., MD Renal Ultrasound 11/22/16 0000 Signed Impressions: Service Date/Time: Tuesday, November 22, 2016 17:14 - CONCLUSION: Mild pelvocaliectasis right kidney not present previously. Obdulia Garcia MD Objective Remarks GENERAL: AOX3, NAD. SKIN: Warm and dry. HEAD: Normocephalic. EYES: No scleral icterus. No injection or drainage. NECK: Supple, trachea midline. No JVD or lymphadenopathy. CARDIOVASCULAR: Regular rate and rhythm without murmurs, gallops, or rubs. RESPIRATORY: Moderate air entry, diminished sound on the right side. No accessory muscle use. GASTROINTESTINAL: Abdomen soft, non-tender, nondistended. MUSCULOSKELETAL: No cyanosis, or edema. BACK: Nontender without obvious deformity. No CVA tenderness. Procedures 11/28/2016 Right Internal Jugular Hemodialysis Catheter Tunneled Placement dual lumen 12/02/2016 Successful right renal biopsy for function. Gelfoam and thrombin utilized. No bleeding on post CT A/P Problem List: (1) Sepsis ICD Code: A41.9 - Sepsis, unspecified organism Status: Acute (2) Acute renal failure ICD Code: N17.9 - Acute kidney failure, unspecified Status: Acute (3) Pneumonia ICD Code: J18.9 - Pneumonia, unspecified organism Status: Acute (4) Coronary artery disease ICD Code: I25.10 - Coronary artery disease Status: Acute (5) Anemia ICD Code: D64.9 - Anemia Status: Acute (6) Hematochezia ICD Code: K92.1 - Melena Status: Acute (7) Hypokalemia ICD Code: E87.6 - Hypokalemia Status: Acute Assessment and Plan Mr. Fonseca is a 55-year-old male patient with a known medical history of CAD, CKD, COPD and history of CABG who presented to the ED with complaints of increasing dyspnea, generalized weakness, fevers and frequent diaphoresis x 2 weeks. Sepsis on admission suspect secondary to right multilobular pneumonia-resolved Dense cavitary pneumonia of the right lung -Pulmonary following. -Completed cefepime 1 g every 12 hours on 12/06/16 - CT Surgery and ID consulted. Patient will likely need bx. - Further tx based on biopsy results. ESRD - Per nephrology will need residential dialysis(MWF), - Patient underwent AV fistula surgery on 12/10/2016. However, patient may need AV graft. - US kidney/renal/bladder ordered and reviewed showing mild pelvocaliectasis right kidney. 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 Insurance arrangement may takes weeks. Hypokalemia -resolved. K+ 3.9 on 12/12/2016. Normochromic, normocytic anemia suspect secondary to acute blood loss/ hematochezia -Transfused total of 4 RBCs since admission, and transfuse for HgB<7.0, currently stable 8.6 on 12/09/2016. -Continue Protonix 40 mg twice a day ; appreciate input from GI -EGD/Colonoscopy on 12/18/2016 - No major findings, no bleeding source. - Hgb was 6.8 today, we will transfuse 1 unit of PRBCs. Chronic obstructive pulmonary disease respiratory failure Probable multi-organism pneumonia - Continue scheduled and PRN duonebs. - Benzoate PRN for cough. - Supplemental O2 to keep sats >88%. - pulmonary medicine following: solumedrol 20 mg BID x 2 days (12/07-12/09), CXR for 12/08 ordered and pending -S/P bronchoscopy 12/05/16 - cytology pathology report shows no malignancy. - CT chest on 12/17/2016, images reviewed by me shows diffuse dense consolidations. Radiologist also raise the possibly due to fungal ball. - CT surgery consulted. Patient will require a bx. ID consulted - no abx started, probably will wait until bx is done. - Chronic cough - Continue Robitussin before meals. If patient desires we can try Tessalon Perles. Full code. DVT Prophylaxis: SCDs/TEDs., Ambulation. Discharge plan : Patient cannot be discharged home without outpatient dialysis arrangements. Problem Qualifiers (1) Sepsis: (2) Acute renal failure: (3) Pneumonia: (4) Anemia: Hever Xavier DO Dec 19, 2016 3:48 pm
--- NOTE | 2016-12-19 18:57 | HHI.PR ---
Subjective Remarks Had Dialysis.. Has cough and brings up copious secretions. On O2 at [address] chest shows a Cavity with a poss Fungus Ball. Bronchial wash so far Negative. No fever. Objective Vital Signs Date Time Temp Pulse Resp B/P (MAP) Pulse Ox O2 Delivery O2 Flow Rate FiO2 12/19/16 14:26 98.0 87 18 114/61 100 12/19/16 14:10 98.3 85 18 115/74 99 12/19/16 08:10 Nasal Cannula 2.00 12/19/16 08:10 92 12/19/16 08:10 92 12/19/16 04:00 98.0 85 20 130/67 (88) 99 12/19/16 00:00 98.3 88 20 126/77 (93) 97 12/18/16 20:56 98 Nasal Cannula 2.00 12/18/16 20:00 97.3 90 20 113/81 (92) 97 12/18/16 20:00 Nasal Cannula 2.00 12/18/16 20:00 89 I/O 12/18/16 12/18/16 12/18/16 12/19/16 12/19/16 12/19/16 07:00 15:00 23:00 07:00 15:00 23:00 Intake Total 0 ml 1360 ml 600 ml 260 ml 800 ml Output Total 550 ml 675 ml 1850 ml Balance -550 ml 1360 ml -75 ml -1590 ml 800 ml Intake Oral 0 ml 360 ml 600 ml IV Total 500 ml Packed Cells 400 ml Blood Product IV Normal Saline Flush 260 ml 400 ml Other 500 ml Output Urine Total 550 ml 675 ml 450 ml Hemodialysis 1400 ml # Voids 1 # Bowel Movements 6 0 Result Diagram: 12/19/16 0755 12/19/16 0755 Objective Remarks GENERAL: This is a middle-aged averagely built white male who is alert and in no acute distress. HEAD, EYES, EARS, NOSE, THROAT: Head normocephalic. The pupils are reactive. Tongue is moist. Throat is clear. Nasal mucosa is clear. NECK: The neck is supple. No bruits. No thyroid enlargement. No lymphadenopathy. CHEST: Equal movements. Occ crackles right chest. Wheeze heard HEART: Heart sounds are regular. S1 and S2. No murmur. ABDOMEN: Abdomen is soft and protuberant. No masses or tenderness. EXTREMITIES: No edema. No calf tenderness. NEUROLOGIC: Reflexes are normal. No focal deficits. SKIN: Dry and cool. Assessment and Plan Assessment and Plan IMPRESSION: 1. Extensive right lung pneumonia with Cavitation and Poss Fungal Infection 2. Chronic kidney disease with acute renal failure. 3. COPD with emphysema and chronic bronchitis. 4. History of coronary artery bypass grafting. Plan : 1. Thoracic surgical consult for Vats Lung biopsy 2. O2 at 1 L. 3. Nebs qid , duoneb 4. ID consult for Eval of Fungal Infection 5. Prednisone 5 mg daily 6. Dialysis as planned. 7. CXR on Thursday. Alison Wilson MD Dec 19, 2016 18:57
[2016-12-20] VITALS (7 sets, daily range): BP systolic 99–139; BP diastolic 63–85; PULSE 80–105; RESP 16–20; TEMP 97.8–98.5; O2SAT 93–98
[2016-12-20] MEDS: HYDROCORTISONE ACETATE 25 MG SUPP RECTAL SCH ×3 (09:00→20:33)
[2016-12-20] MEDS: SEVELAMER CARBONATE 800 MG TAB PO SCH ×3 (09:01→17:31)
[2016-12-20] MEDS: SODIUM CHLORIDE 0.9% FLUSH 10 ML FLUSH IV FLUSH PRN (09:01)
[2016-12-20] MEDS: PANTOPRAZOLE SOD 40 MG DELAYED RELEASE TAB PO SCH ×2 (09:01→20:33)
[2016-12-20] MEDS: LACTOBACILLUS ACIDOPHILUS TAB PO SCH ×2 (09:01→20:33)
[2016-12-20] MEDS: predniSONE 5 MG TAB PO SCH (09:01)
[2016-12-20] MEDS: POTASSIUM CHLORIDE 20 MEQ CONTROLLED RELEASE TAB PO SCH (09:01)
[2016-12-20] MEDS: CHOLECALCIFEROL (VIT D3) 1000 UNIT TAB PO SCH (09:01)
--- NOTE | 2016-12-20 10:05 | HHI.NPPN ---
Subjective General Problems: Anemia Renal Failure: Acute Interval History All the notes were reviewed. Possible fungal ball in the lung cavity. ID and CTS consulted. Review of Systems General Constitutional: Fatigue Respiratory Lungs: Cough, Sputum Objective Data Data Vital Signs Date Time Temp Pulse Resp B/P (MAP) Pulse Ox O2 Delivery O2 Flow Rate FiO2 12/20/16 08:54 Nasal Cannula 2.00 12/20/16 04:00 97.8 80 16 123/79 (94) 98 12/20/16 00:00 98.5 87 18 139/85 (103) 98 12/19/16 20:00 99 12/19/16 20:00 98.3 100 18 115/71 (86) 99 12/19/16 20:00 Nasal Cannula 2.00 12/19/16 16:00 97.6 97 20 116/74 (88) 100 12/19/16 14:26 98.0 87 18 114/61 100 12/19/16 14:10 98.3 85 18 115/74 99 12/19/16 12:00 97.7 92 20 121/76 (91) 99 -: 12/19/16 0755 12/19/16 0755 Tubes & Lines: Perma-Cath, Herbert Physical Exam General Appearance: Well Developed, Well Nourished, No Acute Distress, Comfortable Eyes Eye Exam: Pupils Equal, Pupils Reactive Throat Throat Exam: Oral Mucosa [place] & Moist Neck Neck Exam: Neck Supple Pulmonary Resp Exam: Clear Bilaterally, Breath Sounds Equal, No Distress, Crackles, Decreased Bases Cardiology CV Exam: Regular, Normal Sinus Rhythm, Good Perfusion Gastrointestinal/Abdomen GI Exam: Soft, Non-Tender, Bowel Sounds Present Musculoskeletal MS Exam: Joints Intact, Normal Gait, Normal Tone, Good Strength Integumentary Skin Exam: Clear, Warm, Dry, Intact Extremeties Extremities Exam: No Edema, Pedal Pulses Palpable Neurologic Neuro Exam: Alert, Awake, Oriented, Speech Clear, Moving All Extremities Psychiatric Psych Exam: Appropriate Responses Assessment/Plan Discussed Condition With: Patient Assessment Summary: SEJAL/Acute Renal Failure, Anemia of CKD Electrolyte Assessment: Hypocalcemia, Hypokalemia, Metabolic Acidosis Problem List: (1) Chronic kidney disease, stage 5 ICD Codes: N18.5 - Chronic kidney disease, stage 5 Plan: Patient likely has reached ESRD. Continue dialysis support MWF. He is non oliguric. s/p AVF surgery, no palpable thrill; vascular aware; he has appointment on 01/02 to discuss possible AVG placement; May need to see him inpatient if he is not discharged by then. monitor renal function, replace electrolytes as needed he is currently non oliguric Start nutritional support with meals; on high protein diet The plan is for him to enter transitional HD program at [facility]. When he is approved he can be discharged, may take several weeks. Will keep in touch with case management regarding insurance (medicaid) status. (2) Hypokalemia ICD Codes: E87.6 - Hypokalemia Status: Acute Plan: He may have a proximal tubule disorder Follow labs, he requires frequent replacement 24 hour urine for potassium shows he has renal wasting On daily oral KCL replacement (3) GI bleed ICD Codes: K92.2 - Gastrointestinal hemorrhage, unspecified Status: Acute Plan: Received blood transfusion. Epogen with dialysis. (4) Hypocalcemia ICD Codes: E83.51 - Hypocalcemia Plan: Continue to reat hyperphosphatemia, on Sevelamer with meals. PTH around 130, less than the range desired for stage V CKD, Calcitriol was stopped (5) Pneumonia ICD Codes: J18.9 - Pneumonia, unspecified organism Status: Acute Plan: Pulmonary following, s/p bronchoscopy. CT chest taken No malignancies identified. On prednisone, and Robitussin; Antibiotics were stopped Concern for aspergillus fungal ball in right lung, VATS and lung biopsy being considered. ID note reviewed. (6) Anemia ICD Codes: D64.9 - Anemia Status: Acute Plan: continue epogen with dialysis, dosage increased no evidence of iron deficiency transfuse if necessary (7) Acidosis ICD Codes: E87.2 - Acidosis Status: Acute Plan: corrected, monitor Problem Qualifiers (1) GI bleed: (2) Pneumonia: (3) Anemia: Jim Zuluaga MD Dec 20, 2016 10:05
[2016-12-20 10:32] LABS: HEMATOCRIT 25.3 % (39.0-51.0)
--- NOTE | 2016-12-20 11:05 | HHI.PR ---
Subjective Remarks Follow up for ESRD, Anemia, COPD. Patient is doing well. However, he requests regular diet. Later I discussed with Dr. Zuluaga (Nephrology) who agrees with regular diet. Objective Vitals Vital Signs Date Time Temp Pulse Resp B/P (MAP) Pulse Ox O2 Delivery O2 Flow Rate FiO2 12/20/16 08:54 Nasal Cannula 2.00 12/20/16 08:00 97.9 99 20 121/63 (82) 98 12/20/16 04:00 97.8 80 16 123/79 (94) 98 12/20/16 00:00 98.5 87 18 139/85 (103) 98 12/19/16 20:00 99 12/19/16 20:00 98.3 100 18 115/71 (86) 99 12/19/16 20:00 Nasal Cannula 2.00 12/19/16 16:00 97.6 97 20 116/74 (88) 100 12/19/16 14:26 98.0 87 18 114/61 100 12/19/16 14:10 98.3 85 18 115/74 99 12/19/16 12:00 97.7 92 20 121/76 (91) 99 I/O 12/19/16 12/19/16 12/19/16 12/20/16 12/20/16 12/20/16 07:00 15:00 23:00 07:00 15:00 23:00 Intake Total 600 ml 260 ml 1410 ml 120 ml Output Total 675 ml 1850 ml 675 ml 400 ml Balance -75 ml -1590 ml 735 ml -280 ml Intake Oral 600 ml 360 ml 120 ml IV Total 250 ml Packed Cells 400 ml Blood Product IV Normal Saline Flush 260 ml 400 ml Output Urine Total 675 ml 450 ml 675 ml 400 ml Hemodialysis 1400 ml # Bowel Movements 0 Result Diagram: 12/20/16 0832 12/19/16 0755 Objective Remarks GENERAL: AOX3, NAD. SKIN: Warm and dry. HEAD: Normocephalic. EYES: No scleral icterus. No injection or drainage. NECK: Supple, trachea midline. No JVD or lymphadenopathy. CARDIOVASCULAR: Regular rate and rhythm without murmurs, gallops, or rubs. RESPIRATORY: Moderate air entry, diminished sound on the right side. No accessory muscle use. GASTROINTESTINAL: Abdomen soft, non-tender, nondistended. MUSCULOSKELETAL: No cyanosis, or edema. BACK: Nontender without obvious deformity. No CVA tenderness. Procedures 11/28/2016 Right Internal Jugular Hemodialysis Catheter Tunneled Placement dual lumen 12/02/2016 Successful right renal biopsy for function. Gelfoam and thrombin utilized. No bleeding on post CT A/P Problem List: (1) Sepsis ICD Code: A41.9 - Sepsis, unspecified organism Status: Acute (2) Acute renal failure ICD Code: N17.9 - Acute kidney failure, unspecified Status: Acute (3) Pneumonia ICD Code: J18.9 - Pneumonia, unspecified organism Status: Acute (4) Coronary artery disease ICD Code: I25.10 - Coronary artery disease Status: Acute (5) Anemia ICD Code: D64.9 - Anemia Status: Acute (6) Hematochezia ICD Code: K92.1 - Melena Status: Acute (7) Hypokalemia ICD Code: E87.6 - Hypokalemia Status: Acute Assessment and Plan Mr. Fonseca is a 55-year-old male patient with a known medical history of CAD, CKD, COPD and history of CABG who presented to the ED with complaints of increasing dyspnea, generalized weakness, fevers and frequent diaphoresis x 2 weeks. Sepsis on admission suspect secondary to right multilobular pneumonia-resolved Dense cavitary pneumonia of the right lung - Pulmonary following. - Completed cefepime 1 g every 12 hours on 12/06/16 - Cardiothoracic Surgery and ID consulted. Patient will likely need bx. - Further tx based on biopsy results. ESRD - Per nephrology will need [employer] operator dialysis(MWF), - Patient underwent AV fistula surgery on 12/10/2016. However, patient may need AV graft. - US kidney/renal/bladder ordered and reviewed showing mild pelvocaliectasis right kidney. 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 Insurance arrangement may takes weeks. - Will change diet to regular. Hypokalemia -resolved. K+ 3.9 on 12/12/2016. Normochromic, normocytic anemia suspect secondary to acute blood loss/ hematochezia -Transfused total of 4 RBCs since admission, and transfuse for HgB<7.0, currently stable 8.6 on 12/09/2016. -Continue Protonix 40 mg twice a day ; appreciate input from GI -EGD/Colonoscopy on 12/18/2016 - No major findings, no bleeding source. - Hgb was 6.8 today, we will transfuse 1 unit of PRBCs. Chronic obstructive pulmonary disease respiratory failure Probable multi-organism pneumonia - Continue scheduled and PRN duonebs. - Benzoate PRN for cough. - Supplemental O2 to keep sats >88%. - pulmonary medicine following: solumedrol 20 mg BID x 2 days (12/07-12/09), CXR for 12/08 ordered and pending -S/P bronchoscopy 12/05/16 - cytology pathology report shows no malignancy. - CT chest on 12/17/2016, images reviewed by me shows diffuse dense consolidations. Radiologist also raise the possibly due to fungal ball. - CT surgery consulted. Patient will require a bx. ID consulted - no abx started, probably will wait until bx is done. - Chronic cough - Continue Robitussin before meals. If patient desires we can try Tessalon Perlbernden. Full code. DVT Prophylaxis: SCDs/TEDs., Ambulation. Discharge plan : Patient cannot be discharged home without outpatient dialysis arrangements. Problem Qualifiers (1) Sepsis: (2) Acute renal failure: (3) Pneumonia: (4) Anemia: Hever Xavier DO Dec 20, 2016 11:05
--- NOTE | 2016-12-20 12:00 | HHI.GIFU ---
Subjective Remarks Resting in bed. No obvious blood loss. No n/v. No abdominal pain. (April Melgar) Objective Vitals I&O Vital Signs Date Time Temp Pulse Resp B/P (MAP) Pulse Ox O2 Delivery O2 Flow Rate FiO2 12/20/16 11:35 92 12/20/16 08:54 Nasal Cannula 2.00 12/20/16 08:00 97.9 99 20 121/63 (82) 98 12/20/16 04:00 97.8 80 16 123/79 (94) 98 12/20/16 00:00 98.5 87 18 139/85 (103) 98 12/19/16 20:00 99 12/19/16 20:00 98.3 100 18 115/71 (86) 99 12/19/16 20:00 Nasal Cannula 2.00 12/19/16 16:00 97.6 97 20 116/74 (88) 100 12/19/16 14:26 98.0 87 18 114/61 100 12/19/16 14:10 98.3 85 18 115/74 99 12/19/16 12:00 97.7 92 20 121/76 (91) 99 I/O 12/19/16 12/19/16 12/19/16 12/20/16 12/20/16 12/20/16 07:00 15:00 23:00 07:00 15:00 23:00 Intake Total 600 ml 260 ml 1410 ml 120 ml Output Total 675 ml 1850 ml 675 ml 400 ml Balance -75 ml -1590 ml 735 ml -280 ml Intake Oral 600 ml 360 ml 120 ml IV Total 250 ml Packed Cells 400 ml Blood Product IV Normal Saline Flush 260 ml 400 ml Output Urine Total 675 ml 450 ml 675 ml 400 ml Hemodialysis 1400 ml # Bowel Movements 0 Laboratory Laboratory Tests Test 12/20/16 08:32 Hemoglobin 8.3 Hematocrit 25.3 Date/Time Source Procedure Growth Status 11/22/16 15:20 Blood Peripheral Aerobic Blood Culture - Final NO GROWTH IN 5 DAYS Complete 11/22/16 15:20 Blood Peripheral Anaerobic Blood Culture - Final NO GROWTH IN 5 DAYS Complete 11/22/16 20:30 Stool Stool Cryptosporidium Exam - Final NEGATIVE - NO CRYPTOSPORIDIUM ANTIGEN... Complete 11/22/16 20:30 Stool Stool Stool Pus (MANOLO) - Final FEW WBC'S Complete 11/22/16 20:30 Stool Stool Giardia Antigen (MANOLO) - Final NEGATIVE - NO GIARDIA ANTIGEN DETECTE... Complete 12/05/16 11:41 Bronchial Washings Right Upper Lobe Fungal Smear - Final NO FUNGAL ELEMENTS SEEN. Resulted 12/05/16 11:41 Bronchial Washings Right Upper Lobe Fungal Culture - Preliminary NO GROWTH IN 2 WEEKS Resulted 11/25/16 12:00 Urine Catheterized Urine Urine Culture - Final NO GROWTH IN 48 HOURS. Complete Imaging Last Impressions Chest CT 12/17/16 1715 Signed Impressions: Service Date/Time: Saturday, December 17, 2016 17:51 - CONCLUSION: 1. Dense consolidation persists in the right upper lobe with air bronchograms and air filled cystic spaces. Debris versus possible fungus ball in one of the cystic spaces at the apex which is new. Multi-organism pneumonia suspected. 2. Non-consolidative patchy infiltrate of the right middle and lower lobes not significantly changed. 3. Decreased pleural effusion on the right, now trace. Completely resolved pleural effusion on the left. 4. Previous median sternotomy. Caio Wray MD Chest X-Ray 12/16/16 0600 Signed Impressions: Service Date/Time: Friday, December 16, 2016 05:48 - CONCLUSION: 1. Stable appearance of dense cavitary pneumonia on the right with pleural thickening and fluid. Right central line unchanged with tip in right atrium. Rios Lai MD Upper Extremity Ultrasound 12/04/16 0000 Signed Impressions: Service Date/Time: November 18:26 - CONCLUSION: Venous mapping as delineated above. The cephalic veins are abnormal bilaterally. Caio Villlapando MD Renal Biopsy CT 12/02/16 1350 Signed Impressions: Service Date/Time: Friday, December 02, 2016 08:33 - CONCLUSION: Uncomplicated CT guided biopsy of the right kidney for function. Mustapha Vela Jr., MD Catheter Placement X-Ray 11/28/16 0000 Signed Impressions: Service Date/Time: Monday, November 28, 2016 15:57 - CONCLUSION: Uncomplicated PermaCath placement as above. Mustapha Vela Jr., MD Renal Ultrasound 11/22/16 0000 Signed Impressions: Service Date/Time: Tuesday, November 22, 2016 17:14 - CONCLUSION: Mild pelvocaliectasis right kidney not present previously. Obdulia Garcia MD Physical Exam HEENT: Normocephalic. CHEST: Diminished throughout, respirations even/unlabored CARDIAC: RRR ABDOMEN: Soft, nondistended, nontender; no hepatosplenomegaly; bowel sounds are present. EXTREMITIES: No clubbing, cyanosis, or edema. SKIN: Normal; no rash; no jaundice. GUIDE CRUISE: No focal deficits; alert and oriented x 3 (April Melgar TUBE WINDER) Assessment and Plan Plan ASSESSMENT: - Anemia, likely multifactorial. Rectal bleeding, ARF. S/P EGD/Colonoscopy ()---> 1. Gastritis antrum-biopsy esophagitis dital esophagus -biopsy normal duodenum-biopsy 2. Retroflexed views revealed a hiatal hernia 1. Diverticulosis sigmoid internal hemorrhoids grade 2 2. Retroflexed views revealed internal hemorrhoids 3. Retroflexed views revealed medium internal hemorrhoids 4. Revealed external hemorrhoids. Ascending colon polyp. Pathology with duodenal mucosa without significant histopathologic abnormality negative for duodenitis, villus atrophy and parasitic infestation, gastric antral mucosal biopsy with mild chronic non-specific gastritis negative for intestinal metasplasia and dysplasia, deandre stain negative for helicobacter, esophageal mucosal biopsy with mild chronic non-specific gastritis negative for intestinal metaplasia and dysplasia, deandre stain negative for helicobacter, esophageal mucosal biopsy with mild acute non- specific esophagitis (viral inclusions are not observed, fungi are not seen with routine stains), colonic mucosal biopsies with adenomatous polyp. HH dropped from 7.1/21.6---> 6.8/20.5 in two days. S/P 5 units of PRBC total. HH 8.3/25.3. No active bleeding. PPI. - Gastritis, esophagitis. HH. PPI - Rectal bleeding. Still having BRBPR, small amount, when he wipes after bowel movements. Sometimes, this is a copious amount of blood filling the toilet. Likely related to hemorrhoidal. Improved - Hemorrhoids. hydrocortisone suppositories, Tucks - Diarrhea. Resolved. CDiff negative. No enteric pathogens, negative for cryptosporidium, negative for giardia. Few wbc. Probiotics. IMPROVED. - ARF Renal following, HD. S/P AV fistula placement - Resp. Insufficiency with multilobular PNA/severe emphysema, per pulmonary S/P Bronchoscopy (12/05/16). Lung bx next week. Improved. - Leukocytosis, Fever. Improved. - Weight loss- 10-15 lbs in the last 3 weeks due to poor appetite and Po intake EGD/Colonoscopy as above. - Hypokalemia- Secondary to above, replaced by attending - Hx of CABG, COPD per attending PLAN: - High fiber diet - Benefiber 2 tsp daily - Cont. PPI - Cont. Hydrocortisone supp. - Monitor HH - Transfuse as necessary - HH dropped from 7.1 to 6.8 but this was over 2 days and he is not having any obvious bleeding. - If anemia persists or worsens, consider Capsule endoscopy as outpatient - GI will sign off, please reconsult as needed - Patient seen and examined by Dr. Schneider and myself and this note is written on his behalf. (April Melgar) Physician Comments Seen and examined with ABBY, no active bleeding reported today. Monitor labs, if further bleeding consider sbft vs. pill cam. DIscussed with pt. Will sign off. Thank you (Johann Schneider MD) April Melgar Dec 20, 2016 12:00 Johann Schneider MD Dec 20, 2016 12:53
[2016-12-21] VITALS (8 sets, daily range): BP systolic 111–126; BP diastolic 63–83; PULSE 84–103; RESP 16–18; TEMP 97.4–98.5; O2SAT 94–100
[2016-12-21] MEDS: LACTOBACILLUS ACIDOPHILUS TAB PO SCH ×2 (08:50→20:55)
[2016-12-21] MEDS: POTASSIUM CHLORIDE 20 MEQ CONTROLLED RELEASE TAB PO SCH (08:50)
[2016-12-21] MEDS: SEVELAMER CARBONATE 800 MG TAB PO SCH ×3 (08:50→17:00)
[2016-12-21] MEDS: PANTOPRAZOLE SOD 40 MG DELAYED RELEASE TAB PO SCH ×2 (08:51→20:55)
[2016-12-21] MEDS: CHOLECALCIFEROL (VIT D3) 1000 UNIT TAB PO SCH (08:51)
[2016-12-21] MEDS: HYDROCORTISONE ACETATE 25 MG SUPP RECTAL SCH ×3 (08:51→20:55)
[2016-12-21] MEDS: SODIUM CHLORIDE 0.9% FLUSH 10 ML FLUSH IVF PRN (08:51)
--- NOTE | 2016-12-21 13:40 | HHI.PR ---
Subjective Remarks Follow up for ESRD, Anemia, COPD. Patient is currently doing well. Denies any chest pain, shortness of breath, fever or chills. Objective Vitals Vital Signs Date Time Temp Pulse Resp B/P (MAP) Pulse Ox O2 Delivery O2 Flow Rate FiO2 12/21/16 12:00 97.4 103 17 126/83 (97) 95 12/21/16 11:25 84 12/21/16 09:52 95 Nasal Cannula 2.00 12/21/16 08:52 Nasal Cannula 2.00 12/21/16 08:00 98.0 85 17 122/76 (91) 96 12/21/16 04:00 98.2 84 16 119/63 (81) 100 12/21/16 00:00 Nasal Cannula 2.00 12/21/16 00:00 98.0 89 18 119/78 (92) 94 12/20/16 20:00 Nasal Cannula 2.00 12/20/16 20:00 98.0 105 18 108/70 (83) 93 12/20/16 20:00 Nasal Cannula 2.00 12/20/16 20:00 100 12/20/16 15:43 97.9 100 20 99/68 (78) 96 I/O 12/20/16 12/20/16 12/20/16 12/21/16 12/21/16 12/21/16 07:00 15:00 23:00 07:00 15:00 23:00 Intake Total 120 ml 1060 ml Output Total 400 ml 300 ml 650 ml Balance -280 ml 760 ml -650 ml Intake Oral 120 ml 1060 ml Output Urine Total 400 ml 300 ml 650 ml # Voids 1 # Bowel Movements 1 Result Diagram: 12/20/16 0832 12/19/16 0755 Imaging Last Impressions Chest CT 12/17/16 9615 Signed Impressions: Service Date/Time: Saturday, December 17, 2016 17:51 - CONCLUSION: 1. Dense consolidation persists in the right upper lobe with air bronchograms and air filled cystic spaces. Debris versus possible fungus ball in one of the cystic spaces at the apex which is new. Multi-organism pneumonia suspected. 2. Non-consolidative patchy infiltrate of the right middle and lower lobes not significantly changed. 3. Decreased pleural effusion on the right, now trace. Completely resolved pleural effusion on the left. 4. Previous median sternotomy. Caio Wray MD Chest X-Ray 12/16/16 0600 Signed Impressions: Service Date/Time: Friday, December 16, 2016 05:48 - CONCLUSION: 1. Stable appearance of dense cavitary pneumonia on the right with pleural thickening and fluid. Right central line unchanged with tip in right atrium. Rios Lai MD Upper Extremity Ultrasound 12/04/16 0000 Signed Impressions: Service Date/Time: November 18:26 - CONCLUSION: Venous mapping as delineated above. The cephalic veins are abnormal bilaterally. Caio Villalpando MD Renal Biopsy CT 12/02/16 1350 Signed Impressions: Service Date/Time: Friday, December 02, 2016 08:33 - CONCLUSION: Uncomplicated CT guided biopsy of the right kidney for function. Mustapha Vela Jr., MD Catheter Placement X-Ray 11/28/16 0000 Signed Impressions: Service Date/Time: Monday, November 28, 2016 15:57 - CONCLUSION: Uncomplicated PermaCath placement as above. Mustapha Vela Jr., MD Renal Ultrasound 11/22/16 0000 Signed Impressions: Service Date/Time: Tuesday, November 22, 2016 17:14 - CONCLUSION: Mild pelvocaliectasis right kidney not present previously. Obdulia Garcia MD Objective Remarks GENERAL: AOX3, NAD. SKIN: Warm and dry. HEAD: Normocephalic. EYES: No scleral icterus. No injection or drainage. NECK: Supple, trachea midline. No JVD or lymphadenopathy. CARDIOVASCULAR: Regular rate and rhythm without murmurs, gallops, or rubs. RESPIRATORY: Moderate air entry, diminished sound on the right side. No accessory muscle use. GASTROINTESTINAL: Abdomen soft, non-tender, nondistended. MUSCULOSKELETAL: No cyanosis, or edema. BACK: Nontender without obvious deformity. No CVA tenderness. Procedures 11/28/2016 Right Internal Jugular Hemodialysis Catheter Tunneled Placement dual lumen 12/02/2016 Successful right renal biopsy for function. Gelfoam and thrombin utilized. No bleeding on post CT A/P Problem List: (1) Sepsis ICD Code: A41.9 - Sepsis, unspecified organism Status: Acute (2) Acute renal failure ICD Code: N17.9 - Acute kidney failure, unspecified Status: Acute (3) Pneumonia ICD Code: J18.9 - Pneumonia, unspecified organism Status: Acute (4) Coronary artery disease ICD Code: I25.10 - Coronary artery disease Status: Acute (5) Anemia ICD Code: D64.9 - Anemia Status: Acute (6) Hematochezia ICD Code: K92.1 - Melena Status: Acute (7) Hypokalemia ICD Code: E87.6 - Hypokalemia Status: Acute Assessment and Plan Mr. Fonseca is a 55-year-old male patient with a known medical history of CAD, CKD, COPD and history of CABG who presented to the ED with complaints of increasing dyspnea, generalized weakness, fevers and frequent diaphoresis x 2 weeks. Sepsis on admission suspect secondary to right multilobular pneumonia-resolved Dense cavitary pneumonia of the right lung - Pulmonary following. - Completed cefepime 1 g every 12 hours on 12/06/16 - Cardiothoracic Surgery and ID consulted. Patient will likely need bx. - Further tx based on biopsy results. ESRD - Per nephrology will need terminal operator dialysis(MWF), - Patient underwent AV fistula surgery on 12/10/2016. However, patient may need AV graft. - US kidney/renal/bladder ordered and reviewed showing mild pelvocaliectasis right kidney. 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 Insurance arrangement may takes weeks. - Will change diet to regular. Hypokalemia -resolved. K+ 3.9 on 12/12/2016. Normochromic, normocytic anemia suspect secondary to acute blood loss/ hematochezia -Transfused total of 4 RBCs since admission, and transfuse for HgB<7.0, currently stable 8.6 on 12/09/2016. -Continue Protonix 40 mg twice a day ; appreciate input from GI -EGD/Colonoscopy on 12/18/2016 - No major findings, no bleeding source. - Hgb was 6.8 today, we will transfuse 1 unit of PRBCs. Chronic obstructive pulmonary disease respiratory failure Probable multi-organism pneumonia - Continue scheduled and PRN duonebs. - Benzoate PRN for cough. - Supplemental O2 to keep sats >88%. - pulmonary medicine following: solumedrol 20 mg BID x 2 days (12/07-12/09), CXR for 12/08 ordered and pending -S/P bronchoscopy 12/05/16 - cytology pathology report shows no malignancy. - CT chest on 12/17/2016, images reviewed by me shows diffuse dense consolidations. Radiologist also raise the possibly due to fungal ball. - CT surgery consulted. Patient will require a bx. ID consulted - no abx started, probably will wait until bx is done. - Will discuss with Dr. Roth or CT surgery [employer] tomorrow 12/22/2016. - Chronic cough - Continue Robitussin before meals. If patient desires we can try Tessalon Perles. Full code. DVT Prophylaxis: SCDs/TEDs., Ambulation. Discharge plan : Patient cannot be discharged home without outpatient dialysis arrangements. Problem Qualifiers (1) Sepsis: (2) Acute renal failure: (3) Pneumonia: (4) Anemia: Hever Xavier DO Dec 21, 2016 1:40 pm
[2016-12-21] MEDS: guaiFENesin/CODEINE SYRUP 200 MG/20 MG/10 ML CUP PO PRN (21:01)
[2016-12-22] VITALS: BP 117/61; PULSE 99; RESP 18; TEMP 99.4; O2SAT 92
[2016-12-22 04:00] VITALS: BP 118/90; PULSE 99; RESP 18; TEMP 98.7; O2SAT 97
[2016-12-22 08:05] VITALS: BP 120/74; PULSE 85; RESP 16; TEMP 98.5; O2SAT 97
[2016-12-22] MEDS: SEVELAMER CARBONATE 800 MG TAB PO SCH ×4 (08:10→21:09)
[2016-12-22] MEDS: PANTOPRAZOLE SOD 40 MG DELAYED RELEASE TAB PO SCH ×2 (08:10→21:15)
[2016-12-22] MEDS: CHOLECALCIFEROL (VIT D3) 1000 UNIT TAB PO SCH (08:10)
[2016-12-22] MEDS: POTASSIUM CHLORIDE 20 MEQ CONTROLLED RELEASE TAB PO SCH (08:12)
[2016-12-22] MEDS: LACTOBACILLUS ACIDOPHILUS TAB PO SCH ×2 (08:12→21:14)
[2016-12-22] MEDS: HYDROCORTISONE ACETATE 25 MG SUPP RECTAL SCH ×3 (08:13→21:00)
[2016-12-22 08:19] VITALS: PULSE 87
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
--- NOTE | 2016-12-22 12:08 | HHI.NPPN ---
Subjective General Problems: Anemia Renal Failure: Acute Interval History patient was seen and examined during dialysis. He is comfortable. Lung biopsy is planned, presumably tomorrow. He has excellent urine output. Review of Systems General Constitutional: Fatigue Respiratory Lungs: Cough, Sputum Objective Data Data Vital Signs Date Time Temp Pulse Resp B/P (MAP) Pulse Ox O2 Delivery O2 Flow Rate FiO2 12/22/16 08:19 87 12/22/16 04:00 98.7 99 18 118/90 (99) 97 12/22/16 00:00 99.4 99 18 117/61 (79) 92 12/22/16 00:00 Room Air 12/21/16 20:00 98.3 94 18 111/67 (82) 98 12/21/16 20:00 99 12/21/16 20:00 Nasal Cannula 2.00 12/21/16 16:00 98.5 90 17 122/80 (94) 99 12/21/16 12:00 97.4 103 17 126/83 (97) 95 -: 12/20/16 0832 12/19/16 0755 Tubes & Lines: Perma-Cath, Herbert Physical Exam General Appearance: Well Developed, Well Nourished, No Acute Distress, Comfortable Eyes Eye Exam: Pupils Equal, Pupils Reactive Throat Throat Exam: Oral Mucosa [place] & Moist Neck Neck Exam: Neck Supple Pulmonary Resp Exam: Clear Bilaterally, Breath Sounds Equal, No Distress, Crackles, Decreased Bases Cardiology CV Exam: Regular, Normal Sinus Rhythm, Good Perfusion Gastrointestinal/Abdomen GI Exam: Soft, Non-Tender, Bowel Sounds Present Musculoskeletal MS Exam: Joints Intact, Normal Gait, Normal Tone, Good Strength Integumentary Skin Exam: Clear, Warm, Dry, Intact Extremeties Extremities Exam: No Edema, Pedal Pulses Palpable Neurologic Neuro Exam: Alert, Awake, Oriented, Speech Clear, Moving All Extremities Psychiatric Psych Exam: Appropriate Responses Assessment/Plan Discussed Condition With: Patient Assessment Summary: SEJAL/Acute Renal Failure, Anemia of CKD Electrolyte Assessment: Hypocalcemia, Hypokalemia, Metabolic Acidosis Problem List: (1) Chronic kidney disease, stage 5 ICD Codes: N18.5 - Chronic kidney disease, stage 5 Plan: Patient likely has reached ESRD. Continue dialysis support MWF. He is non oliguric. s/p AVF surgery, no palpable thrill; vascular aware; he has appointment on 01/02 to discuss possible AVG placement; May need to see him inpatient if he is not discharged by then. monitor renal function, replace electrolytes as needed he is currently non oliguric Start nutritional support with meals; on high protein diet The plan is for him to enter transitional HD program at [place]. When he is approved he can be discharged, may take several weeks. Will keep in touch with case management regarding insurance (medicaid) status. (2) Hypokalemia ICD Codes: E87.6 - Hypokalemia Status: Acute Plan: He may have a proximal tubule disorder Follow labs, he requires frequent replacement 24 hour urine for potassium shows he has renal wasting On daily oral KCL replacement (3) GI bleed ICD Codes: K92.2 - Gastrointestinal hemorrhage, unspecified Status: Acute Plan: Received blood transfusion. Epogen with dialysis. (4) Hypocalcemia ICD Codes: E83.51 - Hypocalcemia Plan: Continue to reat hyperphosphatemia, on Sevelamer with meals. PTH around 130, less than the range desired for stage V CKD, Calcitriol was stopped (5) Pneumonia ICD Codes: J18.9 - Pneumonia, unspecified organism Status: Acute Plan: Pulmonary following, s/p bronchoscopy. CT chest taken No malignancies identified. On prednisone, and Robitussin; Antibiotics were stopped Concern for aspergillus fungal ball in right lung, VATS and lung biopsy being considered. ID note reviewed. (6) Anemia ICD Codes: D64.9 - Anemia Status: Acute Plan: continue epogen with dialysis, dosage increased no evidence of iron deficiency transfuse if necessary (7) Acidosis ICD Codes: E87.2 - Acidosis Status: Acute Plan: corrected, monitor Problem Qualifiers (1) GI bleed: (2) Pneumonia: (3) Anemia: Jim Zuluaga MD Dec 22, 2016 11:27
[2016-12-22] MEDS: HEPARIN SODIUM - IV 10,000 UNITS/10 ML VIAL PRN (12:15)
--- NOTE | 2016-12-22 13:02 | HHI.PR ---
Subjective Remarks Had Dialysis.. Has cough and some phlegm On O2 at [address] chest shows a Cavity with a poss Fungus Ball. Bronchial wash so far Negative. For lung Biopsy in am Objective Vital Signs Date Time Temp Pulse Resp B/P (MAP) Pulse Ox O2 Delivery O2 Flow Rate FiO2 12/22/16 08:19 87 12/22/16 08:17 97 Nasal Cannula 2.00 12/22/16 04:00 98.7 99 18 118/90 (99) 97 12/22/16 00:00 99.4 99 18 117/61 (79) 92 12/22/16 00:00 Room Air 12/21/16 20:00 98.3 94 18 111/67 (82) 98 12/21/16 20:00 99 12/21/16 20:00 Nasal Cannula 2.00 12/21/16 16:00 98.5 90 17 122/80 (94) 99 I/O 12/21/16 12/21/16 12/21/16 12/22/16 12/22/16 12/22/16 07:00 15:00 23:00 07:00 15:00 23:00 Intake Total 1600 ml Output Total 650 ml 1125 ml 1800 ml Balance -650 ml 475 ml -1800 ml Intake Oral 1600 ml Output Urine Total 650 ml 1125 ml 1800 ml # Bowel Movements 0 Result Diagram: 12/20/16 0832 12/19/16 0755 Objective Remarks GENERAL: This is a middle-aged averagely built white male who is alert and in no acute distress. HEAD, EYES, EARS, NOSE, THROAT: Head normocephalic. The pupils are reactive. Tongue is moist. Throat is clear. Nasal mucosa is clear. NECK: The neck is supple. No bruits. No thyroid enlargement. No lymphadenopathy. CHEST: Equal movements. Occ crackles right chest. HEART: Heart sounds are regular. S1 and S2. No murmur. ABDOMEN: Abdomen is soft and protuberant. No masses or tenderness. EXTREMITIES: No edema. No calf tenderness. NEUROLOGIC: Reflexes are normal. No focal deficits. SKIN: Dry and cool. Assessment and Plan Assessment and Plan IMPRESSION: 1. Extensive right lung pneumonia with Cavitation and Poss Fungal Infection 2. Chronic kidney disease with acute renal failure. 3. COPD with emphysema and chronic bronchitis. 4. History of coronary artery bypass grafting. Plan : 1. Thoracic surgery for Vats Lung biopsy in am 2. O2 at 1 L. 3. Nebs qid , duoneb 4. ID consult for Eval of Fungal Infection 5. Prednisone 5 mg daily 6. Dialysis as planned today 7. CXR in am Alison Wilson MD Dec 22, 2016 13:02
[2016-12-22] MEDS: EPOETIN ALFA 10,000 UNITS/ML VIAL IV PRN (13:21)
[2016-12-22] MEDS: EPOETIN ALFA 4,000 UNITS/ML VIAL IV PRN (13:21)
[2016-12-22] MEDS: GENTAMICIN SULFATE (DIALYSIS USE ONLY) 20 MG/2 ML VIAL IV PRN (13:21)
--- NOTE | 2016-12-22 15:06 | HHI.PR ---
Subjective Remarks Follow up for ESRD, Anemia, COPD. Patient underwent dialysis today. Doing well. No acute concerns. No fever, chills. CT guided bx of the right lung tomorrow. Objective Vitals Vital Signs Date Time Temp Pulse Resp B/P (MAP) Pulse Ox O2 Delivery O2 Flow Rate FiO2 12/22/16 08:19 87 12/22/16 08:17 97 Nasal Cannula 2.00 12/22/16 08:05 98.5 85 16 120/74 (89) 97 12/22/16 04:00 98.7 99 18 118/90 (99) 97 12/22/16 00:00 99.4 99 18 117/61 (79) 92 12/22/16 00:00 Room Air 12/21/16 20:00 98.3 94 18 111/67 (82) 98 12/21/16 20:00 99 12/21/16 20:00 Nasal Cannula 2.00 12/21/16 16:00 98.5 90 17 122/80 (94) 99 I/O 12/21/16 12/21/16 12/21/16 12/22/16 12/22/16 12/22/16 07:00 15:00 23:00 07:00 15:00 23:00 Intake Total 1600 ml Output Total 650 ml 1125 ml 1800 ml 1250 ml Balance -650 ml 475 ml -1800 ml -1250 ml Intake Oral 1600 ml Output Urine Total 650 ml 1125 ml 1800 ml 450 ml Hemodialysis 800 ml # Bowel Movements 0 Result Diagram: 12/20/16 0832 12/19/16 0755 Imaging Last Impressions Chest CT 12/17/16 1715 Signed Impressions: Service Date/Time: Saturday, December 17, 2016 17:51 - CONCLUSION: 1. Dense consolidation persists in the right upper lobe with air bronchograms and air filled cystic spaces. Debris versus possible fungus ball in one of the cystic spaces at the apex which is new. Multi-organism pneumonia suspected. 2. Non-consolidative patchy infiltrate of the right middle and lower lobes not significantly changed. 3. Decreased pleural effusion on the right, now trace. Completely resolved pleural effusion on the left. 4. Previous median sternotomy. Caio Wray MD Chest X-Ray 12/16/16 0600 Signed Impressions: Service Date/Time: Friday, December 16, 2016 05:48 - CONCLUSION: 1. Stable appearance of dense cavitary pneumonia on the right with pleural thickening and fluid. Right central line unchanged with tip in right atrium. Rios Lai MD Upper Extremity Ultrasound 12/04/16 0000 Signed Impressions: Service Date/Time: November 18:26 - CONCLUSION: Venous mapping as delineated above. The cephalic veins are abnormal bilaterally. Caio Villalpando MD Renal Biopsy CT 12/02/16 1350 Signed Impressions: Service Date/Time: Friday, December 02, 2016 08:33 - CONCLUSION: Uncomplicated CT guided biopsy of the right kidney for function. Mustapha Vela Jr., MD Catheter Placement X-Ray 11/28/16 0000 Signed Impressions: Service Date/Time: Monday, November 28, 2016 15:57 - CONCLUSION: Uncomplicated PermaCath placement as above. Mustapha Vela Jr., MD Renal Ultrasound 11/22/16 0000 Signed Impressions: Service Date/Time: Tuesday, November 22, 2016 17:14 - CONCLUSION: Mild pelvocaliectasis right kidney not present previously. Obdulia Garcia MD Objective Remarks GENERAL: AOX3, NAD. SKIN: Warm and dry. HEAD: Normocephalic. EYES: No scleral icterus. No injection or drainage. NECK: Supple, trachea midline. No JVD or lymphadenopathy. CARDIOVASCULAR: Regular rate and rhythm without murmurs, gallops, or rubs. RESPIRATORY: Moderate air entry, diminished sound on the right side. No accessory muscle use. GASTROINTESTINAL: Abdomen soft, non-tender, nondistended. MUSCULOSKELETAL: No cyanosis, or edema. BACK: Nontender without obvious deformity. No CVA tenderness. Procedures 11/28/2016 Right Internal Jugular Hemodialysis Catheter Tunneled Placement dual lumen 12/02/2016 Successful right renal biopsy for function. Gelfoam and thrombin utilized. No bleeding on post CT A/P Problem List: (1) Sepsis ICD Code: A41.9 - Sepsis, unspecified organism Status: Acute (2) Acute renal failure ICD Code: N17.9 - Acute kidney failure, unspecified Status: Acute (3) Pneumonia ICD Code: J18.9 - Pneumonia, unspecified organism Status: Acute (4) Coronary artery disease ICD Code: I25.10 - Coronary artery disease Status: Acute (5) Anemia ICD Code: D64.9 - Anemia Status: Acute (6) Hematochezia ICD Code: K92.1 - Melena Status: Acute (7) Hypokalemia ICD Code: E87.6 - Hypokalemia Status: Acute Assessment and Plan Mr. Fonseca is a 55-year-old male patient with a known medical history of CAD, CKD, COPD and history of CABG who presented to the ED with complaints of increasing dyspnea, generalized weakness, fevers and frequent diaphoresis x 2 weeks. Sepsis on admission suspect secondary to right multilobular pneumonia-resolved Dense cavitary pneumonia of the right lung - Pulmonary following. - Completed cefepime 1 g every 12 hours on 12/06/16 - Cardiothoracic Surgery and ID consulted. Patient will likely need bx. - Further tx based on biopsy results. ESRD - [facility] nephrology [facility]), - Patient underwent AV fistula surgery on 12/10/2016. However, patient may need AV graft. - US kidney/renal/bladder ordered and reviewed showing mild pelvocaliectasis right kidney. 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 Insurance arrangement may takes weeks. - Will change diet to regular. Hypokalemia -resolved. K+ 3.9 on 12/12/2016. Normochromic, normocytic anemia suspect secondary to acute blood loss/ hematochezia -Transfused total of 4 RBCs since admission, and transfuse for HgB<7.0, currently stable 8.6 on 12/09/2016. -Continue Protonix 40 mg twice a day ; appreciate input from GI -EGD/Colonoscopy on 12/18/2016 - No major findings, no bleeding source. - Hgb was 6.8 today, we will transfuse 1 unit of PRBCs. Chronic obstructive pulmonary disease respiratory failure Probable multi-organism pneumonia - Continue scheduled and PRN duonebs. - Benzoate PRN for cough. - Supplemental O2 to keep sats >88%. - pulmonary medicine following: solumedrol 20 mg BID x 2 days (12/07-12/09), CXR for 12/08 ordered and pending -S/P bronchoscopy 12/05/16 - cytology pathology report shows no malignancy. - CT chest on 12/17/2016, images reviewed by me shows diffuse dense consolidations. Radiologist also raise the possibly due to fungal ball. - Cardiothoracic surgery evaluated patient, recommended CT guided biopsy scheduled for 12/23/2016. - Chronic cough - Continue Robitussin before meals. If patient desires we can try Tessalon Perles. Full code. DVT Prophylaxis: SCDs/TEDs., Ambulation. Discharge plan : Patient cannot be discharged home without outpatient dialysis arrangements. Problem Qualifiers (1) Sepsis: (2) Acute renal failure: (3) Pneumonia: (4) Anemia: Hever Xavier DO Dec 22, 2016 3:06 pm
[2016-12-22 15:36] LABS: AUTOMATED NEUTROPHIL # 6.6 TH/MM3 (1.8-7.7); BASOPHIL # 0.1 TH/MM3 (0-0.2); BASOPHIL % 0.7 % (0.0-2.0); EOSINOPHIL # 0.1 TH/MM3 (0-0.4); EOSINOPHIL % 1.7 % (0.0-4.0); HEMATOCRIT 23.5 % (39.0-51.0); HEMO FLAGS DIFF FINAL; LYMPH % 12.1 % (9.0-44.0); MEAN CELL VOLUME 93.4 FL (80.0-100.0); MEAN CORPUSCULAR HEMOGLOBIN 31.3 PG (27.0-34.0); MEAN CORPUSCULAR HGB CONC 33.5 % (32.0-36.0); MONO % 4.5 % (0.0-8.0); PLATELET COUNT 153 TH/MM3 (150-450); RED BLOOD COUNT 2.51 MIL/MM3 (4.50-5.90); RED CELL DISTRIBUTION WIDTH 16.6 % (11.6-17.2); WHITE BLOOD COUNT 8.2 TH/MM3 (4.0-11.0)
[2016-12-22 15:50] LABS: APTT (PATIENT) 25.2 SEC (24.3-30.1); PROTHROMBIN TIME - PATIENT 10.7 SEC (9.8-11.6)
[2016-12-22 16:05] VITALS: BP 122/72; PULSE 99; RESP 16; TEMP 98.8; O2SAT 97
[2016-12-22 20:00] VITALS: BP 110/78; PULSE 90; PULSE 97; RESP 18; TEMP 98; O2SAT 98
[2016-12-23] VITALS (13 sets, daily range): BP systolic 98–129; BP diastolic 63–79; PULSE 88–110; RESP 16–20; TEMP 97.8–99.7; O2SAT 95–98
[2016-12-23] MEDS: TEMAZEPAM 15 MG CAP PO PRN (00:09)
[2016-12-23] MEDS: POTASSIUM CHLORIDE 20 MEQ CONTROLLED RELEASE TAB PO SCH (09:00)
[2016-12-23] MEDS: HYDROCORTISONE ACETATE 25 MG SUPP RECTAL SCH ×3 (09:00→20:48)
[2016-12-23] MEDS ORDERED: BENZOCAINE-MENTHOL (SUGAR FREE) 15 MG-3.6 MG LOZENGE BUCCAL PRN (09:00)
[2016-12-23] MEDS ORDERED: MIDAZOLAM HCL 5 MG/5 ML VIAL IV ONE (09:35)
--- NOTE | 2016-12-23 10:16 | PD.RAD ---
Post CT Procedure Prog Note Pre Procedure Diagnosis: (1) Aspergillosis Post Procedure Diagnosis: Procedure Date: Dec 23, 2016 Supervising Radiologist: Broderick Ndiaye Proceduralist/Assist: Keerthi Clemente Plan of Activity Patient to Unit: [facility] Patient Condition: Good See PACS Report for procedural detail/treatment Broderick Ndiaye MD Dec 23, 2016 10:16
--- NOTE | 2016-12-23 11:52 | RADRPT ---
EXAM DATE/TIME: 12/23/2016 11:27 [facility] COMPARISON: CHEST SINGLE AP, December 16, 2016, 5:48. INDICATIONS : Post right lung biopsy. MEDICAL HISTORY : Myocardial infarction. Hypertension. Osteoporosis. Neck pain. Dizziness. SURGICAL HISTORY : Three vessel bypass. Bone marrow harvest. ENCOUNTER: Initial ACUITY: 1 day PAIN SCORE: 0/10 LOCATION: Bilateral chest FINDINGS: A single frontal expiratory view of the chest was performed. Stable dense consolidation in the right upper lung with findings of cavitation/bronchiectasis in the apex. No pneumothorax. Interstitial prom inence in the right base. Left lung is clear. Right IJ perm catheter catheters stable in position wit h the tip projecting of the central venous system. Median sternotomy wires and side plates are intact . CONCLUSION: 1. No pneumothorax post biopsy. 2. Stable airspace disease in the right upper lung with cavitation/bronchiectasis in the apex. Vernon Sanchez MD on December 23, 2016 at 11:48 Board Certified Radiologist. This report was verified electronically.
[2016-12-23] MEDS: SEVELAMER CARBONATE 800 MG TAB PO SCH (13:19)
[2016-12-23] MEDS: PANTOPRAZOLE SOD 40 MG DELAYED RELEASE TAB PO SCH ×2 (13:19→20:49)
[2016-12-23] MEDS: CHOLECALCIFEROL (VIT D3) 1000 UNIT TAB PO SCH (13:19)
[2016-12-23] MEDS: LACTOBACILLUS ACIDOPHILUS TAB PO SCH ×2 (13:19→20:49)
--- NOTE | 2016-12-23 14:06 | HHI.PR ---
Subjective Remarks Follow up for ESRD, Anemia, COPD. Patient underwent dialysis yesterday and reported no ill effects. Pt laying in gurney awaiting transport for lung biopsy. Pt denied anxiety or apprehension regarding biopsy. Cough continues with occasional "pain from coughing so much." Pt stated he has a productive cough not feeling ill at present time. Pt reported Robitussin with codeine is effective as cough suppressant, does not want to use Tessalon Perles. No acute concerns. No fever, chills, NVD, abdominal/chest pain, dysuria. Per RN (Denise) no acute issues noted overnight or since start of shift. Objective Vitals Vital Signs Date Time Temp Pulse Resp B/P (MAP) Pulse Ox O2 Delivery O2 Flow Rate FiO2 12/23/16 11:40 93 18 105/72 (83) 97 12/23/16 11:37 98 Nasal Cannula 2.00 12/23/16 11:10 90 18 105/72 (83) 97 12/23/16 10:40 88 18 98/67 (77) 98 12/23/16 10:25 97.8 89 16 105/79 (88) 96 12/23/16 08:00 98.3 103 20 98 12/23/16 04:53 98.3 90 18 122/77 (92) 98 12/23/16 00:05 Nasal Cannula 2.00 12/23/16 00:05 99.1 99 18 106/68 (81) 95 12/22/16 20:12 Nasal Cannula 2.00 12/22/16 20:00 98.0 97 18 110/78 (89) 98 12/22/16 20:00 90 12/22/16 16:05 98.8 99 16 122/72 (89) 97 12/22/16 16:00 97 Nasal Cannula 2.00 12/22/16 16:00 97 Nasal Cannula 2.00 I/O 12/22/16 12/22/16 12/22/16 12/23/16 12/23/16 12/23/16 07:00 15:00 23:00 07:00 15:00 23:00 Intake Total 420 ml 240 ml Output Total 1800 ml 1250 ml 1000 ml 600 ml Balance -1800 ml -1250 ml -580 ml -360 ml Intake Oral 420 ml 240 ml Output Urine Total 1800 ml 450 ml 1000 ml 600 ml Hemodialysis 800 ml # Bowel Movements 0 0 Result Diagram: 12/22/16 1511 12/19/16 0755 Imaging Last Impressions Chest X-Ray 12/23/16 1100 Signed Impressions: Service Date/Time: Friday, December 23, 2016 11:27 - CONCLUSION: 1. No pneumothorax post biopsy. 2. Stable airspace disease in the right upper lung with cavitation/bronchiectasis in the apex. Vernon Sanchez MD Chest CT 12/17/16 1715 Signed Impressions: Service Date/Time: Saturday, December 17, 2016 17:51 - CONCLUSION: 1. Dense consolidation persists in the right upper lobe with air bronchograms and air filled cystic spaces. Debris versus possible fungus ball in one of the cystic spaces at the apex which is new. Multi-organism pneumonia suspected. 2. Non-consolidative patchy infiltrate of the right middle and lower lobes not significantly changed. 3. Decreased pleural effusion on the right, now trace. Completely resolved pleural effusion on the left. 4. Previous median sternotomy. Caio Wray MD Upper Extremity Ultrasound 12/04/16 0000 Signed Impressions: Service Date/Time: November 18:26 - CONCLUSION: Venous mapping as delineated above. The cephalic veins are abnormal bilaterally. Caio Villalpando MD Renal Biopsy CT 12/02/16 1350 Signed Impressions: Service Date/Time: Friday, December 02, 2016 08:33 - CONCLUSION: Uncomplicated CT guided biopsy of the right kidney for function. Mustapha Vela Jr., MD Catheter Placement X-Ray 11/28/16 0000 Signed Impressions: Service Date/Time: Monday, November 28, 2016 15:57 - CONCLUSION: Uncomplicated PermaCath placement as above. Mustapha Vela Jr., MD Renal Ultrasound 11/22/16 0000 Signed Impressions: Service Date/Time: Tuesday, November 22, 2016 17:14 - CONCLUSION: Mild pelvocaliectasis right kidney not present previously. Obdulia Garcia MD Objective Remarks GENERAL: Pt encountered laying in [facility] awaiting transport to CT guided lung biopsy. NAD. SKIN: Warm and dry. HEAD: Normocephalic. EYES: No scleral icterus. No injection or drainage. NECK: Supple, trachea midline. No lymphadenopathy. CARDIOVASCULAR: Regular rate and rhythm without murmurs, gallops, or rubs. RESPIRATORY: Diminished breath sounds noted on right. No accessory muscle use. GASTROINTESTINAL: Abdomen soft, non-tender, nondistended. MUSCULOSKELETAL: No cyanosis, or edema. PSYCHIATRIC: Mood and affect normal, insight and judgment appropriate. Pt was pleasant and cooperative. Procedures 11/28/2016 Right Internal Jugular Hemodialysis Catheter Tunneled Placement dual lumen 12/02/2016 Successful right renal biopsy for function. Gelfoam and thrombin utilized. No bleeding on post CT Medications and IVs Current Medications Medications (Trade) Dose Ordered Sig/Edwin Route Start Time Stop Time Status Last Admin (NS Flush) 2 ml UNSCH PRN IVF 11/22/16 15:00 12/21/16 08:51 (Milk Of Magnesia Liq) 30 ml Q12H PRN PO 11/22/16 18:00 (Tylenol) 650 mg Q4H PRN PO 11/24/16 13:15 12/11/16 00:37 (Zofran Inj) 4 mg Q6H PRN IV 11/24/16 13:15 (Mag-Al Plus Susp Liq) 30 ml Q6H PRN PO 11/24/16 13:15 (Restoril) 15 mg HS PRN PO 11/24/16 13:15 12/23/16 00:09 (Vitamin D3) 2,000 units DAILY PO 11/25/16 09:15 12/23/16 13:19 (Lactinex) 1 tab Q12HR PO 11/26/16 21:00 12/23/16 13:19 (Hemorrhoidal Hc Supp) 25 mg DAILY RECTAL 11/27/16 09:00 12/12/16 09:00 Sodium Chloride 1,000 ml @ 0 mls/hr Q0M PRN OTHER 11/28/16 15:28 12/12/16 12:00 (Heparin Inj) 8,000 units UNSCH PRN IVF 11/28/16 15:30 Future Hold Sodium Chloride 1,000 ml @ 200 mls/hr Q5H PRN IV 11/28/16 15:28 Sodium Chloride 1,000 ml @ 0 mls/hr Q0M PRN OTHER 11/28/16 15:28 11/30/16 12:02 (Mannitol Inj) 12.5 gm UNSCH PRN IV 11/28/16 15:30 (Albumin 25% Inj) 25 gm UNSCH PRN IV 11/28/16 15:30 12/19/16 08:36 (NS Flush) 5 ml UNSCH PRN IV FLUSH 11/28/16 15:30 12/20/16 09:01 (Heparin Inj) UNSCH PRN .XX 11/28/16 15:30 12/22/16 12:15 (Gentamicin (Dialysis) Inj) 20 mg UNSCH PRN IV 11/28/16 15:30 12/22/16 13:21 (Zofran Inj) 4 mg UNSCH PRN IV 11/28/16 15:30 (Tylenol) 650 mg UNSCH PRN PO 11/28/16 15:30 12/19/16 13:06 (Benadryl) 25 mg UNSCH PRN PO 11/28/16 15:30 12/19/16 13:06 (Nitrostat Sl) 0.4 mg UNSCH PRN SL 11/28/16 15:30 (Catapres) 0.1 mg UNSCH PRN PO 11/28/16 15:30 (Gelfoam 12 Mm/7 Mm Top) 1 foam UNSCH PRN TOP 11/28/16 15:30 (NS Flush) UNSCH PRN IVF 11/28/16 18:15 (Heparin Inj) UNSCH PRN IV FLUSH 11/28/16 18:15 Future Hold (Duoneb Neb) 1 ampule Q4HR NEB PRN NEB 11/29/16 12:30 12/01/16 20:00 (Benadryl) 25 mg Q8H PRN PO 11/30/16 10:00 12/15/16 02:51 (Protonix) 40 mg Q12HR PO 12/01/16 21:00 12/23/16 13:19 (Renvela) 1,600 mg TIDAC PO 12/03/16 17:00 12/23/16 13:19 (KCl) 20 meq DAILY PO 12/04/16 09:00 12/23/16 09:00 (Robitussin Ac 200-20 Mg/10 ml Liq) 10 ml Q6H PRN PO 12/15/16 14:00 12/21/16 21:01 (Epogen Inj) 10,000 units UNSCH PRN IV 12/17/16 09:30 12/22/16 13:21 (Epogen Inj) 4,000 units UNSCH PRN IV 12/17/16 09:45 12/22/16 13:21 (Hemorrhoidal Hc Supp) 25 mg BID RECTAL 12/18/16 21:00 (Tylenol) 650 mg Q4H PRN PO 12/19/16 10:00 (Benadryl) 25 mg Q4H PRN PO 12/19/16 10:00 (Cepacol Extra Elenita (Sugar Free)) 1 lozenge Q2HR PRN BUCCAL 12/23/16 09:00 Urinary Catheter: No A/P Problem List: (1) Sepsis ICD Code: A41.9 - Sepsis, unspecified organism Status: Acute (2) Acute renal failure ICD Code: N17.9 - Acute kidney failure, unspecified Status: Acute (3) Pneumonia ICD Code: J18.9 - Pneumonia, unspecified organism Status: Acute (4) Coronary artery disease ICD Code: I25.10 - Coronary artery disease Status: Acute (5) Anemia ICD Code: D64.9 - Anemia Status: Acute (6) Hematochezia ICD Code: K92.1 - Melena Status: Acute (7) Hypokalemia ICD Code: E87.6 - Hypokalemia Status: Acute Assessment and Plan Mr. Fonseca is a 55-year-old male patient with a known medical history of CAD, CKD, COPD and history of CABG who presented to the ED with complaints of increasing dyspnea, generalized weakness, fevers and frequent diaphoresis x 2 weeks. Dense cavitary pneumonia of the right lung: Lung biopsy completed on 12/23/16. Awaiting report. Aspergillus titers pending. ESRD: Dialysis planned for . Chronic cough: Continue Robitussin with codeine. Will not order Tessalon Perles. Anemia: Hgb and Hct decrease noted. Am labs ordered. Transfuse if Hgb less than 7. Sepsis on admission suspect secondary to right multilobular pneumonia-resolved Dense cavitary pneumonia of the right lung - Pulmonary following. - Completed cefepime 1 g every 12 hours on 12/06/16 - Cardiothoracic Surgery and ID consulted. Patient will likely need bx. - Further tx based on biopsy results. ESRD - Per nephrology will need alf dialysis(MWF), - Patient underwent AV fistula surgery on 12/10/2016. However, patient may need AV graft. - US kidney/renal/bladder ordered and reviewed showing mild pelvocaliectasis right kidney. 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 Insurance arrangement may takes weeks. - Will change diet to regular. Hypokalemia -resolved. K+ 3.9 on 12/12/2016. Normochromic, normocytic anemia suspect secondary to acute blood loss/ hematochezia -Transfused total of 4 RBCs since admission, and transfuse for HgB<7.0, currently stable 8.6 on 12/09/2016. -Continue Protonix 40 mg twice a day ; appreciate input from GI -EGD/Colonoscopy on 12/18/2016 - No major findings, no bleeding source. - Hgb was 6.8 today, we will transfuse 1 unit of PRBCs. Chronic obstructive pulmonary disease respiratory failure Probable multi-organism pneumonia - Continue scheduled and PRN duonebs. - Benzoate PRN for cough. - Supplemental O2 to keep sats >88%. - pulmonary medicine following: solumedrol 20 mg BID x 2 days (12/07-12/09), CXR for 12/08 ordered and pending -S/P bronchoscopy 12/05/16 - cytology pathology report shows no malignancy. - CT chest on 12/17/2016, images reviewed by me shows diffuse dense consolidations. Radiologist also raise the possibly due to fungal ball. - Cardiothoracic surgery evaluated patient, recommended CT guided biopsy scheduled for 12/23/2016. - Chronic cough - Continue Robitussin before meals. If patient desires we can try Tessalon Perles. Full code. DVT Prophylaxis: SCDs/TEDs., Ambulation. Case discussed with Pt, RN, and Dr. Xavier. Discharge Planning Discharge plan : Patient cannot be discharged home without outpatient dialysis arrangements. Problem Qualifiers (1) Sepsis: (2) Acute renal failure: Qualified Codes: N17.8 - Other acute kidney failure (3) Pneumonia: Qualified Codes: J18.1 - Lobar pneumonia, unspecified organism (4) Coronary artery disease: Qualified Codes: I25.119 - Atherosclerotic heart disease of [place] coronary artery with unspecified angina pectoris (5) Anemia: Qualified Codes: N18.5 - Chronic kidney disease, stage 5; D63.1 - Anemia in chronic kidney disease Chavo Mcdaniel Jr. Dec 23, 2016 14:06
--- NOTE | 2016-12-23 15:10 | RADRPT ---
EXAM DATE/TIME: 12/23/2016 09:37 [facility] COMPARISON: No previous studies available for comparison. INDICATIONS : Right lung mass/infiltrate. SEDATION TIME: 30 minutes BIOPSY SITE: Right MEDICATION(S): 1.) 3 mg midazolam (Versed) IV 2.) 100 mcg fentanyl (Sublimaze) IV DEVICE(S): 1.) 20 gauge Temno core biopsy needle MEDICAL HISTORY : Cardiovascular disease. Hypertension. Renal failure, chronic. SURGICAL HISTORY : None. ENCOUNTER: Initial ACUITY: 1 day PAIN SCORE: 0/10 LOCATION: Right chest A total of two core specimen(s) were obtained and sent to the laboratory for pathologic evaluation. PROCEDURE: 1. CT guided lung biopsy. 2. Conscious sedation with continuous EKG and oximetry monitoring. 3. EKG and oximetry remained stable throughout the procedure. Prior to the procedure informed consent was obtained. Any appropriate prior imaging studies were rev iewed. Using automated exposure control and adjustment of the mA and/or kV according to patient size, radiation dose was kept as low as reasonably achievable to obtain optimal diagnostic quality images. DICOM format image data is available electronically for review and comparison. The site was prepped in a sterile fashion. Full sterile technique was used, including cap, mask, pamela rile gloves and gown and a large sterile sheet. Hand hygiene and 2% chlorhexidine and/or betadine/al cohol prep was utilized per protocol for cutaneous antisepsis. The skin and subcutaneous tissues wer e infiltrated with local anesthetic solution. With CT guidance the previously identified target was localized. Biopsy was performed using the presc ribed needle as above. Adequate hemostasis was obtained with compression at the puncture site. Follow-up CT scan reveals no pneumothorax. Conscious sedation was performed with the prescribed dosages and duration as above in the presence of an independent trained radiology nurse to assist in the monitoring of the patient. EKG and oximetry remained stable throughout the procedure. The patient tolerated the procedure well and there were no complications. The patient was sent to Radiology Outpatient Unit in stable condition. CONCLUSION: Uncomplicated CT guided biopsy/aspiration. Broderick Ndiaye MD on December 23, 2016 at 15:08 Board Certified Radiologist. This report was verified electronically.
--- NOTE | 2016-12-23 16:23 | HHI.NPPN ---
Subjective General Problems: Anemia Renal Failure: Acute Interval History patient underwent lung biopsy today. Discussed with Dr. Wilson. No evidence of TB. Possible Aspergillus. ID on the case. Had dialysis yesterday. Review of Systems General Constitutional: Fatigue Respiratory Lungs: Cough, Sputum Objective Data Data Vital Signs Date Time Temp Pulse Resp B/P (MAP) Pulse Ox O2 Delivery O2 Flow Rate FiO2 12/23/16 13:00 Nasal Cannula 2.00 12/23/16 12:00 97.9 89 20 129/63 (85) 98 12/23/16 11:40 93 18 105/72 (83) 97 12/23/16 11:37 98 Nasal Cannula 2.00 12/23/16 11:10 90 18 105/72 (83) 97 12/23/16 10:40 88 18 98/67 (77) 98 12/23/16 10:25 97.8 89 16 105/79 (88) 96 12/23/16 08:00 96 12/23/16 08:00 98.3 103 20 98 12/23/16 04:53 98.3 90 18 122/77 (92) 98 12/23/16 00:05 Nasal Cannula 2.00 12/23/16 00:05 99.1 99 18 106/68 (81) 95 12/22/16 20:12 Nasal Cannula 2.00 12/22/16 20:00 98.0 97 18 110/78 (89) 98 12/22/16 20:00 90 -: 12/22/16 1511 12/19/16 0755 Microbiology 12/23/16 Fungal Smear, Received Pending 12/23/16 Fungal Culture, Received Pending 12/23/16 Acid Fast Stain, Received Pending 12/23/16 Mycobacterial Culture, Received Pending 12/23/16 Gram Stain, Received Pending 12/23/16 Wound Culture, Received Pending Tubes & Lines: Perma-Cath, Herbert Physical Exam General Appearance: Well Developed, Well Nourished, No Acute Distress, Comfortable Eyes Eye Exam: Pupils Equal, Pupils Reactive Throat Throat Exam: Oral Mucosa [place] & Moist Neck Neck Exam: Neck Supple Pulmonary Resp Exam: Clear Bilaterally, Breath Sounds Equal, No Distress, Crackles, Decreased Bases Cardiology CV Exam: Regular, Normal Sinus Rhythm, Good Perfusion Gastrointestinal/Abdomen GI Exam: Soft, Non-Tender, Bowel Sounds Present Musculoskeletal MS Exam: Joints Intact, Normal Gait, Normal Tone, Good Strength Integumentary Skin Exam: Clear, Warm, Dry, Intact Extremeties Extremities Exam: No Edema, Pedal Pulses Palpable Neurologic Neuro Exam: Alert, Awake, Oriented, Speech Clear, Moving All Extremities Psychiatric Psych Exam: Appropriate Responses Assessment/Plan Discussed Condition With: Patient Assessment Summary: SEJAL/Acute Renal Failure, Anemia of CKD Electrolyte Assessment: Hypocalcemia, Hypokalemia, Metabolic Acidosis Problem List: (1) Chronic kidney disease, stage 5 ICD Codes: N18.5 - Chronic kidney disease, stage 5 Plan: Patient likely has reached ESRD. Continue dialysis support MWF. He is non oliguric. He has appointment on 01/02 to discuss possible AVG placement; May need to see him inpatient if he is not discharged by then. monitor renal function, replace electrolytes as needed he is currently non oliguric Start nutritional support with meals; on high protein diet The plan is for him to enter transitional HD program at [place]. When he is approved he can be discharged, may take several weeks. Will keep in touch with case management regarding insurance (medicaid) status. (2) Hypokalemia ICD Codes: E87.6 - Hypokalemia Status: Acute Plan: He may have a proximal tubule disorder Follow labs, he requires frequent replacement 24 hour urine for potassium shows he has renal wasting On daily oral KCL replacement (3) GI bleed ICD Codes: K92.2 - Gastrointestinal hemorrhage, unspecified Status: Acute Plan: Received blood transfusion. Epogen with dialysis. (4) Hypocalcemia ICD Codes: E83.51 - Hypocalcemia Plan: Continue to reat hyperphosphatemia, on Sevelamer with meals. PTH around 130, less than the range desired for stage V CKD, Calcitriol was stopped (5) Pneumonia ICD Codes: J18.9 - Pneumonia, unspecified organism Status: Acute Plan: Pulmonary following, s/p bronchoscopy. CT chest taken No malignancies identified. On prednisone, and Robitussin; Antibiotics were stopped Concern for aspergillus fungal ball in right lung, VATS and lung biopsy being considered. ID note reviewed. (6) Anemia ICD Codes: D64.9 - Anemia Status: Acute Plan: continue epogen with dialysis, dosage increased no evidence of iron deficiency transfuse if necessary (7) Acidosis ICD Codes: E87.2 - Acidosis Status: Acute Plan: corrected, monitor Problem Qualifiers (1) GI bleed: (2) Pneumonia: Qualified Codes: J18.1 - Lobar pneumonia, unspecified organism (3) Anemia: Qualified Codes: N18.5 - Chronic kidney disease, stage 5; D63.1 - Anemia in chronic kidney disease Jim Zuluaga MD Dec 23, 2016 16:23
--- NOTE | 2016-12-23 16:57 | HHI.IDPN ---
Subjective Subjective Remarks doing well afebrile SP needle aspiration bx today co some intermittent hemoptysis Antibiotics no ne Allergies: Coded Allergies: No Known Allergies (Unverified , 09/26/13) Objective . Vital Signs Date Time Temp Pulse Resp B/P (MAP) Pulse Ox O2 Delivery O2 Flow Rate FiO2 12/23/16 13:00 Nasal Cannula 2.00 12/23/16 12:00 97.9 89 20 129/63 (85) 98 12/23/16 11:40 93 18 105/72 (83) 97 12/23/16 11:37 98 Nasal Cannula 2.00 12/23/16 11:10 90 18 105/72 (83) 97 12/23/16 10:40 88 18 98/67 (77) 98 12/23/16 10:25 97.8 89 16 105/79 (88) 96 12/23/16 08:00 96 12/23/16 08:00 98.3 103 20 98 12/23/16 04:53 98.3 90 18 122/77 (92) 98 12/23/16 00:05 Nasal Cannula 2.00 12/23/16 00:05 99.1 99 18 106/68 (81) 95 12/22/16 20:12 Nasal Cannula 2.00 12/22/16 20:00 98.0 97 18 110/78 (89) 98 12/22/16 20:00 90 . Laboratory Tests Test 12/22/16 15:11 White Blood Count 8.2 TH/MM3 Red Blood Count 2.51 MIL/MM3 Hemoglobin 7.9 GM/DL Hematocrit 23.5 % Mean Corpuscular Volume 93.4 FL Mean Corpuscular Hemoglobin 31.3 PG Mean Corpuscular Hemoglobin Concent 33.5 % Red Cell Distribution Width 16.6 % Platelet Count 153 TH/MM3 Mean Platelet Volume 8.6 FL Neutrophils (%) (Auto) 81.0 % Lymphocytes (%) (Auto) 12.1 % Monocytes (%) (Auto) 4.5 % Eosinophils (%) (Auto) 1.7 % Basophils (%) (Auto) 0.7 % Neutrophils # (Auto) 6.6 TH/MM3 Lymphocytes # (Auto) 1.0 TH/MM3 Monocytes # (Auto) 0.4 TH/MM3 Eosinophils # (Auto) 0.1 TH/MM3 Basophils # (Auto) 0.1 TH/MM3 CBC Comment DIFF FINAL Differential Comment Microbiology Date/Time Source Procedure Growth Status 12/23/16 09:20 Wound Lung Fungal Smear Pending Received 12/23/16 09:20 Wound Lung Fungal Culture Pending Received 12/23/16 09:20 Wound Lung Acid Fast Stain Pending Received 12/23/16 09:20 Wound Lung Mycobacterial Culture Pending Received 12/23/16 09:20 Wound Lung Gram Stain Pending Received 12/23/16 09:20 Wound Lung Wound Culture Pending Received Imaging Last Impressions Chest X-Ray 12/23/16 1100 Signed Impressions: Service Date/Time: Friday, December 23, 2016 11:27 - CONCLUSION: 1. No pneumothorax post biopsy. 2. Stable airspace disease in the right upper lung with cavitation/bronchiectasis in the apex. Vernon Sanchez MD Lung Biopsy CT 12/23/16 0000 Signed Impressions: Service Date/Time: Friday, December 23, 2016 09:37 - CONCLUSION: Uncomplicated CT guided biopsy/aspiration. Broderick Ndiaye MD Chest CT 12/17/16 1715 Signed Impressions: Service Date/Time: Saturday, December 17, 2016 17:51 - CONCLUSION: 1. Dense consolidation persists in the right upper lobe with air bronchograms and air filled cystic spaces. Debris versus possible fungus ball in one of the cystic spaces at the apex which is new. Multi-organism pneumonia suspected. 2. Non-consolidative patchy infiltrate of the right middle and lower lobes not significantly changed. 3. Decreased pleural effusion on the right, now trace. Completely resolved pleural effusion on the left. 4. Previous median sternotomy. Caio Wray MD Upper Extremity Ultrasound 12/04/16 0000 Signed Impressions: Service Date/Time: November 18:26 - CONCLUSION: Venous mapping as delineated above. The cephalic veins are abnormal bilaterally. Caio Villalpando MD Renal Biopsy CT 12/02/16 1350 Signed Impressions: Service Date/Time: Friday, December 02, 2016 08:33 - CONCLUSION: Uncomplicated CT guided biopsy of the right kidney for function. Mustapha Vela Jr., MD Catheter Placement X-Ray 11/28/16 0000 Signed Impressions: Service Date/Time: Monday, November 28, 2016 15:57 - CONCLUSION: Uncomplicated PermaCath placement as above. Mustapha Vela Jr., MD Renal Ultrasound 11/22/16 0000 Signed Impressions: Service Date/Time: Tuesday, November 22, 2016 17:14 - CONCLUSION: Mild pelvocaliectasis right kidney not present previously. Obdulia Garcia MD Physical Exam CONSTITUTIONAL/GENERAL: This is an adequately nourished patient, in no apparent distress. SKIN: No jaundice, rashes, or lesions. . RESPIRATORY/CHEST: unlabored respirations. NEUROLOGICAL: Awake and alert. Clear speech Moves all extremities. PSYCHIATRIC: No obvious anxiety/depression. no apparent hallucinations or other psychotic thought process. Assessment & Plan Remarks Unresolving culture negative cavitary PNA, RUL with probable fungus ball sp fine needle aspration Aspergiall suspected radiographically, however Aspergilla is usually readily growing in the sputum. Im unable to to establish microbiological diagnosis with out positive culture or path in this case ESRD HEp C Pt is clincially asymptomatic afebrile Rec's: fu clx from bx further rec's per cultures result no abx at this point Paz Fontanez MD Dec 23, 2016 16:57
[2016-12-23] MEDS ORDERED: SEVELAMER CARBONATE 800 MG TAB PO ONE (18:00)
--- NOTE | 2016-12-23 19:21 | HHI.PR ---
Subjective Remarks Went for a CT guided biopsy of the RUL lesion. Has cough and wheezing .Mild hemoptysis CT chest shows a Cavity with a poss Fungus Ball. Bronchial wash so far Negative. Objective Vital Signs Date Time Temp Pulse Resp B/P (MAP) Pulse Ox O2 Delivery O2 Flow Rate FiO2 12/23/16 17:35 98 Nasal Cannula 2.00 12/23/16 16:00 98.3 106 20 116/78 (91) 95 12/23/16 13:00 Nasal Cannula 2.00 12/23/16 12:00 97.9 89 20 129/63 (85) 98 12/23/16 11:40 93 18 105/72 (83) 97 12/23/16 11:37 98 Nasal Cannula 2.00 12/23/16 11:10 90 18 105/72 (83) 97 12/23/16 10:40 88 18 98/67 (77) 98 12/23/16 10:25 97.8 89 16 105/79 (88) 96 12/23/16 08:00 96 12/23/16 08:00 98.3 103 20 98 12/23/16 04:53 98.3 90 18 122/77 (92) 98 12/23/16 00:05 Nasal Cannula 2.00 12/23/16 00:05 99.1 99 18 106/68 (81) 95 12/22/16 20:12 Nasal Cannula 2.00 12/22/16 20:00 98.0 97 18 110/78 (89) 98 12/22/16 20:00 90 I/O 12/22/16 12/22/16 12/22/16 12/23/16 12/23/16 12/23/16 07:00 15:00 23:00 07:00 15:00 23:00 Intake Total 420 ml 240 ml 480 ml Output Total 1800 ml 1250 ml 1000 ml 600 ml 825 ml Balance -1800 ml -1250 ml -580 ml -360 ml -345 ml Intake Oral 420 ml 240 ml 480 ml Output Urine Total 1800 ml 450 ml 1000 ml 600 ml 825 ml Hemodialysis 800 ml # Bowel Movements 0 0 1 Result Diagram: 12/22/16 9101 12/19/16 9893 Objective Remarks GENERAL: This is a middle-aged averagely built white male who is alert and in no acute distress. HEAD, EYES, EARS, NOSE, THROAT: Head normocephalic. The pupils are reactive. Tongue is moist. Throat is clear. Nasal mucosa is clear. NECK: The neck is supple. No bruits. No thyroid enlargement. No lymphadenopathy. CHEST: Equal movements. Occ wheeze heard HEART: Heart sounds are regular. S1 and S2. No murmur. ABDOMEN: Abdomen is soft and protuberant. No masses or tenderness. EXTREMITIES: No edema. No calf tenderness. NEUROLOGIC: Reflexes are normal. No focal deficits. SKIN: Dry and cool. Assessment and Plan Assessment and Plan IMPRESSION: 1. Extensive right lung pneumonia with Cavitation and Poss Fungal Infection 2. Chronic kidney disease with acute renal failure. 3. COPD with emphysema and chronic bronchitis. 4. History of coronary artery bypass grafting. Plan : 1. Await path reports from Needle biopsy 2. O2 at 2 L. 3. Nebs qid , duoneb 4. CBC,BMP in am 5. IS at bedside q3h. 6. Dialysis as planned today 7. CXR in am Alison Wilson MD Dec 23, 2016 19:21
[2016-12-24] VITALS (12 sets, daily range): BP systolic 112–131; BP diastolic 70–77; PULSE 86–107; RESP 18–20; TEMP 98–99.1; O2SAT 94–98
[2016-12-24] MEDS: SEVELAMER CARBONATE 800 MG TAB PO SCH ×3 (08:00→18:23)
[2016-12-24] MEDS: ALBUMIN HUMAN 25% 25 GM/100 ML BAGP IV PRN (08:52)
[2016-12-24] MEDS: GENTAMICIN SULFATE (DIALYSIS USE ONLY) 20 MG/2 ML VIAL IV PRN (08:52)
[2016-12-24] MEDS: HEPARIN SODIUM - IV 10,000 UNITS/10 ML VIAL PRN (08:53)
[2016-12-24] MEDS: HYDROCORTISONE ACETATE 25 MG SUPP RECTAL SCH ×3 (09:00→21:00)
--- NOTE | 2016-12-24 09:08 | HHI.NPPN ---
Subjective General Problems: Anemia Renal Failure: Acute Interval History Seen during dialysis this morning. Still reporting some hemoptysis post lung biopsy. (Milla Pack) Review of Systems General Constitutional: Fatigue (Milla Pack) Respiratory Lungs: Cough, Sputum Respiratory Remarks slightly hemoptysis (Milla Pack) Objective Data Data Vital Signs Date Time Temp Pulse Resp B/P (MAP) Pulse Ox O2 Delivery O2 Flow Rate FiO2 12/24/16 08:59 98 2.00 12/24/16 04:00 98.6 106 18 126/72 (90) 94 12/24/16 00:00 Nasal Cannula 2.00 12/24/16 00:00 99.1 107 18 115/72 (86) 97 12/23/16 20:51 Room Air 12/23/16 20:16 110 12/23/16 20:00 99.7 109 17 124/64 (84) 98 12/23/16 17:35 98 Nasal Cannula 2.00 12/23/16 16:00 98.3 106 20 116/78 (91) 95 12/23/16 13:00 Nasal Cannula 2.00 12/23/16 12:00 97.9 89 20 129/63 (85) 98 12/23/16 11:40 93 18 105/72 (83) 97 12/23/16 11:37 98 Nasal Cannula 2.00 12/23/16 11:10 90 18 105/72 (83) 97 12/23/16 10:40 88 18 98/67 (77) 98 12/23/16 10:25 97.8 89 16 105/79 (88) 96 (Milla Pack) -: 12/22/16 1511 Microbiology 12/23/16 Fungal Smear, Received Pending 12/23/16 Fungal Culture, Received Pending 12/23/16 Acid Fast Stain, Received Pending 12/23/16 Mycobacterial Culture, Received Pending 12/23/16 Gram Stain, Received Pending 12/23/16 Wound Culture, Received Pending Tubes & Lines: Perma-Cath (Milla Pack) Physical Exam General Appearance: Well Developed, Well Nourished, No Acute Distress, Comfortable (Sirena,Milla B. [employer]) Eyes Eye Exam: Pupils Equal, Pupils Reactive (Milla Pack [employer]) Throat Throat Exam: Oral Mucosa [place] & Moist (Milla Pack [employer]) Neck Neck Exam: Neck Supple (Milla Pack [employer]) Pulmonary Resp Exam: Clear Bilaterally, Breath Sounds Equal, No Distress, Crackles, Decreased Bases Resp Remarks crackles mostly on right upper lung field (Milla Pack [employer]) Cardiology CV Exam: Regular, Normal Sinus Rhythm, Good Perfusion (Milla Pack [employer]) Gastrointestinal/Abdomen GI Exam: Soft, Non-Tender, Bowel Sounds Present (Milla Pack [employer]) Musculoskeletal MS Exam: Joints Intact, Normal Gait, Normal Tone, Good Strength (Milla PackP) Integumentary Skin Exam: Clear, Warm, Dry, Intact (Milla Pack [employer]) Extremeties Extremities Exam: No Edema, Pedal Pulses Palpable (Milla Pack [employer]) Neurologic Neuro Exam: Alert, Awake, Oriented, Speech Clear, Moving All Extremities (Milla Pack [employer]) Psychiatric Psych Exam: Appropriate Responses (Milla Pack) Assessment/Plan Discussed Condition With: Patient Assessment Summary: SEJAL/Acute Renal Failure, Anemia of CKD Electrolyte Assessment: Hypocalcemia, Hypokalemia, Metabolic Acidosis Problem List: (1) Chronic kidney disease, stage 5 ICD Codes: N18.5 - Chronic kidney disease, stage 5 Plan: Patient likely has reached ESRD. Continue dialysis support MWF. He is non oliguric. Seen during dialysis today on a 4K, 350 BFR, with a goal of 1800 ml UF. He has appointment on 01/02 to discuss possible AVG placement; May need to see him inpatient if he is not discharged by then. replace electrolytes as needed Start nutritional support with meals; on high protein diet The plan is for him to enter transitional HD program at [place]. When he is approved he can be discharged, may take several weeks. Will keep in touch with case management regarding insurance (medicaid) status. (2) Hypokalemia ICD Codes: E87.6 - Hypokalemia Status: Acute Plan: He may have a proximal tubule disorder Follow labs, he requires daily replacement in addition to high K bath with HD 24 hour urine for potassium shows he has renal wasting (3) GI bleed ICD Codes: K92.2 - Gastrointestinal hemorrhage, unspecified Status: Acute Plan: Received blood transfusion. GI has signed off; s/p EGD/colonoscopy may need capsule endoscopy outpatient (4) Hypocalcemia ICD Codes: E83.51 - Hypocalcemia Plan: Continue to reat hyperphosphatemia, on Sevelamer with meals. PTH around 130, less than the range desired for stage V CKD, Calcitriol was stopped (5) Pneumonia ICD Codes: J18.9 - Pneumonia, unspecified organism Status: Acute Plan: Pulmonary following, s/p bronchoscopy. CT chest taken No malignancies identified. On prednisone, and Robitussin; Off antibiotics Concern for aspergillus fungal ball in right lung, s/p lung biopsy , results not available Continue supportive care (6) Anemia ICD Codes: D64.9 - Anemia Status: Acute Plan: Transfuse as needed, Most recent 12/19 Continue high dose of Epogen with dialysis. (7) Acidosis ICD Codes: E87.2 - Acidosis Status: Acute Plan: corrected, monitor (Milla Pack) Plan patient was seen and examined. Seen during dialysis. Repeat his labs. Needs nutritional support. (Jim Zuluaga MD) Problem Qualifiers (1) GI bleed: (2) Pneumonia: Qualified Codes: J18.1 - Lobar pneumonia, unspecified organism (3) Anemia: Qualified Codes: N18.5 - Chronic kidney disease, stage 5; D63.1 - Anemia in chronic kidney disease Milla Pack Dec 24, 2016 09:08 Jim Zuluaga MD Dec 24, 2016 09:19
[2016-12-24 09:31] LABS: BASOPHIL # 0.1 TH/MM3 (0-0.2); BASOPHIL % 1.1 % (0.0-2.0); EOSINOPHIL # 0.3 TH/MM3 (0-0.4); EOSINOPHIL % 4.2 % (0.0-4.0); HEMATOCRIT 21.1 % (39.0-51.0); HEMO FLAGS DIFF FINAL; LYMPH % 23.8 % (9.0-44.0); LYMPHOCYTE # 1.9 TH/MM3 (1.0-4.8); MEAN CELL VOLUME 94.4 FL (80.0-100.0); MEAN CORPUSCULAR HEMOGLOBIN 31.3 PG (27.0-34.0); MEAN CORPUSCULAR HGB CONC 33.2 % (32.0-36.0); MONO % 6.6 % (0.0-8.0); NEUT % 64.3 % (16.0-70.0); PLATELET COUNT 159 TH/MM3 (150-450); RED BLOOD COUNT 2.24 MIL/MM3 (4.50-5.90); RED CELL DISTRIBUTION WIDTH 16.8 % (11.6-17.2); WHITE BLOOD COUNT 7.8 TH/MM3 (4.0-11.0)
[2016-12-24 09:55] LABS: BICARBONATE 29.7 MEQ/L (21.0-32.0)
[2016-12-24] MEDS: PANTOPRAZOLE SOD 40 MG DELAYED RELEASE TAB PO SCH ×2 (12:22→22:15)
[2016-12-24] MEDS: LACTOBACILLUS ACIDOPHILUS TAB PO SCH ×2 (12:22→22:15)
[2016-12-24] MEDS: POTASSIUM CHLORIDE 20 MEQ CONTROLLED RELEASE TAB PO SCH (12:22)
[2016-12-24] MEDS: CHOLECALCIFEROL (VIT D3) 1000 UNIT TAB PO SCH (12:22)
--- NOTE | 2016-12-24 15:17 | HHI.PR ---
Subjective Remarks Follow up for ESRD, Anemia, COPD. Patient underwent dialysis this morning and reported no ill effects except he felt "tired." Pt reported "coughing up blood" as a result of his biopsy. He stated this was "normal" and "expected". Pt reported back pain at site where biopsy needed was introduced. Cough continues and is less productive and more of a "dry cough". No acute concerns. No fever, chills, NVD, abdominal/chest pain, dysuria. Per RN (Melanie) no acute issues noted overnight or since start of shift. Objective Vitals Vital Signs Date Time Temp Pulse Resp B/P (MAP) Pulse Ox O2 Delivery O2 Flow Rate FiO2 12/24/16 12:00 98.2 92 18 127/70 (89) 95 12/24/16 08:59 98 2.00 12/24/16 08:00 86 12/24/16 08:00 Room Air 12/24/16 04:00 98.6 106 18 126/72 (90) 94 12/24/16 00:00 Nasal Cannula 2.00 12/24/16 00:00 99.1 107 18 115/72 (86) 97 12/23/16 20:51 Room Air 12/23/16 20:16 110 12/23/16 20:00 99.7 109 17 124/64 (84) 98 12/23/16 17:35 98 Nasal Cannula 2.00 12/23/16 16:00 98.3 106 20 116/78 (91) 95 I/O 12/23/16 12/23/16 12/23/16 12/24/16 12/24/16 12/24/16 07:00 15:00 23:00 07:00 15:00 23:00 Intake Total 240 ml 960 ml 480 ml Output Total 600 ml 825 ml 800 ml 1500 ml Balance -360 ml 135 ml -320 ml -1500 ml Intake Oral 240 ml 960 ml 480 ml Output Urine Total 600 ml 825 ml 800 ml Hemodialysis 1500 ml # Bowel Movements 0 1 Result Diagram: 12/24/16 0700 12/24/16 0700 Objective Remarks GENERAL: Pt encountered laying a bed. NAD. SKIN: Warm and dry. Small bandage noted on his back approximately T-7. HEAD: Normocephalic. EYES: No scleral icterus. No injection or drainage. NECK: Supple, trachea midline. No lymphadenopathy. CARDIOVASCULAR: Regular rate and rhythm without murmurs, gallops, or rubs. RESPIRATORY: Diminished breath sounds noted on right. No accessory muscle use. GASTROINTESTINAL: Abdomen soft, non-tender, nondistended. MUSCULOSKELETAL: No cyanosis, or edema. PSYCHIATRIC: Mood and affect normal, insight and judgment appropriate. Pt was pleasant and cooperative. Procedures 11/28/2016 Right Internal Jugular Hemodialysis Catheter Tunneled Placement dual lumen 12/02/2016 Successful right renal biopsy for function. Gelfoam and thrombin utilized. No bleeding on post CT Lung Biopsy 12/23/16. Dialysis 12/24/16. Medications and IVs Current Medications Medications (Trade) Dose Ordered Sig/Edwin Route Start Time Stop Time Status Last Admin (NS Flush) 2 ml UNSCH PRN IVF 11/22/16 15:00 12/21/16 08:51 (Milk Of Magnesia Liq) 30 ml Q12H PRN PO 11/22/16 18:00 (Tylenol) 650 mg Q4H PRN PO 11/24/16 13:15 12/11/16 00:37 (Zofran Inj) 4 mg Q6H PRN IV 11/24/16 13:15 (Mag-Al Plus Susp Liq) 30 ml Q6H PRN PO 11/24/16 13:15 (Restoril) 15 mg HS PRN PO 11/24/16 13:15 12/23/16 00:09 (Vitamin D3) 2,000 units DAILY PO 11/25/16 09:15 12/24/16 12:22 (Lactinex) 1 tab Q12HR PO 11/26/16 21:00 12/24/16 12:22 (Hemorrhoidal Hc Supp) 25 mg DAILY RECTAL 11/27/16 09:00 12/12/16 09:00 Sodium Chloride 1,000 ml @ 0 mls/hr Q0M PRN OTHER 11/28/16 15:28 12/12/16 12:00 (Heparin Inj) 8,000 units UNSCH PRN IVF 11/28/16 15:30 Future Hold Sodium Chloride 1,000 ml @ 200 mls/hr Q5H PRN IV 11/28/16 15:28 Sodium Chloride 1,000 ml @ 0 mls/hr Q0M PRN OTHER 11/28/16 15:28 11/30/16 12:02 (Mannitol Inj) 12.5 gm UNSCH PRN IV 11/28/16 15:30 (Albumin 25% Inj) 25 gm UNSCH PRN IV 11/28/16 15:30 12/24/16 08:52 (NS Flush) 5 ml UNSCH PRN IV FLUSH 11/28/16 15:30 12/20/16 09:01 (Heparin Inj) UNSCH PRN .XX 11/28/16 15:30 12/24/16 08:53 (Gentamicin (Dialysis) Inj) 20 mg UNSCH PRN IV 11/28/16 15:30 12/24/16 08:52 (Zofran Inj) 4 mg UNSCH PRN IV 11/28/16 15:30 (Tylenol) 650 mg UNSCH PRN PO 11/28/16 15:30 12/19/16 13:06 (Benadryl) 25 mg UNSCH PRN PO 11/28/16 15:30 12/19/16 13:06 (Nitrostat Sl) 0.4 mg UNSCH PRN SL 11/28/16 15:30 (Catapres) 0.1 mg UNSCH PRN PO 11/28/16 15:30 (Gelfoam 12 Mm/7 Mm Top) 1 foam UNSCH PRN TOP 11/28/16 15:30 (NS Flush) UNSCH PRN IVF 11/28/16 18:15 (Heparin Inj) UNSCH PRN IV FLUSH 11/28/16 18:15 Future Hold (Duoneb Neb) 1 ampule Q4HR NEB PRN NEB 11/29/16 12:30 12/01/16 20:00 (Benadryl) 25 mg Q8H PRN PO 11/30/16 10:00 12/15/16 02:51 (Protonix) 40 mg Q12HR PO 12/01/16 21:00 12/24/16 12:22 (Renvela) 1,600 mg TIDAC PO 12/03/16 17:00 12/24/16 13:39 (KCl) 20 meq DAILY PO 12/04/16 09:00 12/24/16 12:22 (Robitussin Ac 200-20 Mg/10 ml Liq) 10 ml Q6H PRN PO 12/15/16 14:00 12/21/16 21:01 (Epogen Inj) 10,000 units UNSCH PRN IV 12/17/16 09:30 12/22/16 13:21 (Epogen Inj) 4,000 units UNSCH PRN IV 12/17/16 09:45 12/22/16 13:21 (Hemorrhoidal Hc Supp) 25 mg BID RECTAL 12/18/16 21:00 (Tylenol) 650 mg Q4H PRN PO 12/19/16 10:00 (Benadryl) 25 mg Q4H PRN PO 12/19/16 10:00 (Cepacol Extra Elenita (Sugar Free)) 1 lozenge Q2HR PRN BUCCAL 12/23/16 09:00 Urinary Catheter: No A/P Problem List: (1) Sepsis ICD Code: A41.9 - Sepsis, unspecified organism Status: Acute (2) Acute renal failure ICD Code: N17.9 - Acute kidney failure, unspecified Status: Acute (3) Pneumonia ICD Code: J18.9 - Pneumonia, unspecified organism Status: Acute (4) Coronary artery disease ICD Code: I25.10 - Coronary artery disease Status: Acute (5) Anemia ICD Code: D64.9 - Anemia Status: Acute (6) Hematochezia ICD Code: K92.1 - Melena Status: Acute (7) Hypokalemia ICD Code: E87.6 - Hypokalemia Status: Acute Assessment and Plan Mr. Fonseca is a 55-year-old male patient with a known medical history of CAD, CKD, COPD and history of CABG who presented to the ED with complaints of increasing dyspnea, generalized weakness, fevers and frequent diaphoresis x 2 weeks. Dense cavitary pneumonia of the right lung: Lung biopsy completed on 12/23/16. Awaiting report. Aspergillus titers pending. ESRD: Dialysis 12/24/16. Chronic cough: Continues. Anemia: Hgb and Hct decrease noted. Hgb 7.0. Repeat H&H ordered. Transfuse if Hgb 7 or less.AM labs Sepsis on admission suspect secondary to right multilobular pneumonia-resolved Dense cavitary pneumonia of the right lung - Pulmonary following. - Completed cefepime 1 g every 12 hours on 12/06/16 - Cardiothoracic Surgery and ID consulted. Patient will likely need bx. - Further tx based on biopsy results. ESRD - Per nephrology will need extermination inspector dialysis(MWF), - Patient underwent AV fistula surgery on 12/10/2016. However, patient may need AV graft. - US kidney/renal/bladder ordered and reviewed showing mild pelvocaliectasis right kidney. 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 Insurance arrangement may takes weeks. - Will change diet to regular. Hypokalemia -resolved. K+ 3.9 on 12/12/2016. Normochromic, normocytic anemia suspect secondary to acute blood loss/ hematochezia -Transfused total of 4 RBCs since admission, and transfuse for HgB<7.0, currently stable 8.6 on 12/09/2016. -Continue Protonix 40 mg twice a day ; appreciate input from GI -EGD/Colonoscopy on 12/18/2016 - No major findings, no bleeding source. - Hgb was 6.8 today, we will transfuse 1 unit of PRBCs. -Hgn 7.0 on 12/24, repeat H&H. Transfuse is 7.0 or less. Am labs. Chronic obstructive pulmonary disease respiratory failure Probable multi-organism pneumonia - Continue scheduled and PRN duonebs. - Benzoate PRN for cough. - Supplemental O2 to keep sats >88%. - pulmonary medicine following: solumedrol 20 mg BID x 2 days (12/07-12/09), CXR for 12/08 ordered and pending -S/P bronchoscopy 12/05/16 - cytology pathology report shows no malignancy. - CT chest on 12/17/2016, images reviewed by me shows diffuse dense consolidations. Radiologist also raise the possibly due to fungal ball. - Cardiothoracic surgery evaluated patient, recommended CT guided biopsy scheduled for 12/23/2016. -Results pending. - Chronic cough - Continue Robitussin before meals. Full code. DVT Prophylaxis: SCDs/TEDs., Ambulation. Case discussed with Pt, RN, and Dr. Xavier. Discharge Planning Discharge plan : Patient cannot be discharged home without outpatient dialysis arrangements. Problem Qualifiers (1) Sepsis: (2) Acute renal failure: Qualified Codes: N17.8 - Other acute kidney failure (3) Pneumonia: Qualified Codes: J18.1 - Lobar pneumonia, unspecified organism (4) Coronary artery disease: Qualified Codes: I25.119 - Atherosclerotic heart disease of [place] coronary artery with unspecified angina pectoris (5) Anemia: Qualified Codes: N18.5 - Chronic kidney disease, stage 5; D63.1 - Anemia in chronic kidney disease Chavo Mcdaniel Jr. Dec 24, 2016 15:17
[2016-12-24 17:40] LABS: REVIEW FLAG FINAL
--- NOTE | 2016-12-24 18:36 | HHI.PR ---
Subjective Remarks Went for a CT guided biopsy of the RUL lesion. Has cough and wheezing .Mild hemoptysis CT chest shows a RUL Cavity with a poss Fungus Ball. Objective Vital Signs Date Time Temp Pulse Resp B/P (MAP) Pulse Ox O2 Delivery O2 Flow Rate FiO2 12/24/16 17:33 95 Nasal Cannula 2.00 12/24/16 16:30 98.3 103 18 112/74 (87) 95 12/24/16 16:00 98.3 106 18 117/73 (88) 96 12/24/16 12:00 98.2 92 18 127/70 (89) 95 12/24/16 08:59 98 2.00 12/24/16 08:00 86 12/24/16 08:00 Room Air 12/24/16 04:00 98.6 106 18 126/72 (90) 94 12/24/16 00:00 Nasal Cannula 2.00 12/24/16 00:00 99.1 107 18 115/72 (86) 97 12/23/16 20:51 Room Air 12/23/16 20:16 110 12/23/16 20:00 99.7 109 17 124/64 (84) 98 I/O 12/23/16 12/23/16 12/23/16 12/24/16 12/24/16 12/24/16 07:00 15:00 23:00 07:00 15:00 23:00 Intake Total 240 ml 960 ml 480 ml 960 ml Output Total 600 ml 825 ml 800 ml 1500 ml 1200 ml Balance -360 ml 135 ml -320 ml -1500 ml -240 ml Intake Oral 240 ml 960 ml 480 ml 960 ml Output Urine Total 600 ml 825 ml 800 ml 1200 ml Hemodialysis 1500 ml # Bowel Movements 0 1 1 Result Diagram: 12/24/16 1700 12/24/16 0700 Objective Remarks GENERAL: This is a middle-aged averagely built white male who is alert and in no acute distress. HEAD, EYES, EARS, NOSE, THROAT: Head normocephalic. The pupils are reactive. Tongue is moist. Throat is clear. NECK: The neck is supple. No bruits. No thyroid enlargement. No lymphadenopathy. CHEST: Equal movements. Occ wheeze heard over Right chest. HEART: Heart sounds are regular. S1 and S2. No murmur. ABDOMEN: Abdomen is soft and protuberant. No masses or tenderness. EXTREMITIES: No edema. No calf tenderness. NEUROLOGIC: Reflexes are normal. No focal deficits. SKIN: Dry and cool. Assessment and Plan Assessment and Plan IMPRESSION: 1. Extensive right lung pneumonia with Cavitation and Poss Fungal Infection 2. Chronic kidney disease with acute renal failure. 3. COPD with emphysema and chronic bronchitis. 4. History of coronary artery bypass grafting. Plan : 1. Await path reports from Needle biopsy 2. O2 at 2 L. 3. Nebs qid , duoneb 4. CBC,BMP in am 5. IS at bedside q3h. 6. Dialysis as planned Alison Wilson MD Dec 24, 2016 18:36
[2016-12-24] MEDS ORDERED: SODIUM CHLOR 0.9% 250 ML INJ 250 ML IV ONE (19:15)
[2016-12-24] MEDS ORDERED: ACETAMINOPHEN 325 MG TAB PO PRN (19:15)
[2016-12-24] MEDS ORDERED: diphenhydrAMINE HCL 25 MG CAP PO PRN (19:15)
[2016-12-24] MEDS: SODIUM CHLORIDE 0.9% FLUSH 10 ML FLUSH IVF PRN (20:55)
[2016-12-24] MEDS: TEMAZEPAM 15 MG CAP PO PRN (23:09)
[2016-12-25] VITALS (8 sets, daily range): BP systolic 117–150; BP diastolic 61–91; PULSE 87–102; RESP 18–20; TEMP 98–98.6; O2SAT 95–99
[2016-12-25 08:40] LABS: HEMATOCRIT 25.4 % (39.0-51.0); MEAN CORPUSCULAR HGB CONC 31.9 % (32.0-36.0); PLATELET COUNT 176 TH/MM3 (150-450); RED CELL DISTRIBUTION WIDTH 16.6 % (11.6-17.2); REVIEW FLAG FINAL
[2016-12-25] MEDS: HYDROCORTISONE ACETATE 25 MG SUPP RECTAL SCH ×3 (09:00→21:00)
[2016-12-25] MEDS: CHOLECALCIFEROL (VIT D3) 1000 UNIT TAB PO SCH (09:23)
[2016-12-25] MEDS: PANTOPRAZOLE SOD 40 MG DELAYED RELEASE TAB PO SCH ×2 (09:23→21:38)
[2016-12-25] MEDS: LACTOBACILLUS ACIDOPHILUS TAB PO SCH ×2 (09:23→21:38)
[2016-12-25] MEDS: SEVELAMER CARBONATE 800 MG TAB PO SCH ×3 (09:23→18:30)
[2016-12-25] MEDS: POTASSIUM CHLORIDE 20 MEQ CONTROLLED RELEASE TAB PO SCH (09:23)
[2016-12-25 09:31] LABS: BICARBONATE 31.3 MEQ/L (21.0-32.0)
--- NOTE | 2016-12-25 13:53 | HHI.NPPN ---
Subjective General Problems: Anemia Renal Failure: Acute Interval History He received blood transfusion yesterday. Still with hemoptysis. Dialyzed yesterday. (Milla Pack) Review of Systems General Constitutional: Fatigue (Milla Pack) Respiratory Lungs: Cough, Sputum Respiratory Remarks slightly hemoptysis (Milla Pack) Objective Data Data Vital Signs Date Time Temp Pulse Resp B/P (MAP) Pulse Ox O2 Delivery O2 Flow Rate FiO2 12/25/16 09:45 96 Nasal Cannula 2.00 12/25/16 08:00 87 12/25/16 08:00 98.3 98 18 117/78 (91) 99 12/25/16 08:00 Room Air 12/25/16 04:00 98.0 88 20 141/72 (95) 97 12/25/16 00:03 128/61 12/25/16 00:01 98.6 101 20 12/24/16 23:42 98.0 100 20 131/77 (95) 95 12/24/16 23:35 98.0 100 20 131/77 95 12/24/16 21:00 105 12/24/16 21:00 Room Air 12/24/16 19:55 98.8 100 18 113/74 (87) 94 12/24/16 17:33 95 Nasal Cannula 2.00 12/24/16 16:30 98.3 103 18 112/74 (87) 95 12/24/16 16:00 98.3 106 18 117/73 (88) 96 (Milla Pack) -: 12/25/16 0531 12/25/16 0531 Imaging Last 72 hours Impressions Chest X-Ray 12/23/16 1100 Signed Impressions: Service Date/Time: Friday, December 23, 2016 11:27 - CONCLUSION: 1. No pneumothorax post biopsy. 2. Stable airspace disease in the right upper lung with cavitation/bronchiectasis in the apex. Vernon Sanchez MD Lung Biopsy CT 12/23/16 0000 Signed Impressions: Service Date/Time: Friday, December 23, 2016 09:37 - CONCLUSION: Uncomplicated CT guided biopsy/aspiration. Broderick Ndiaye MD Tubes & Lines: Perma-Cath (Milla Pack) Physical Exam General Appearance: Well Developed, Well Nourished, No Acute Distress, Comfortable (Milla Pack) Eyes Eye Exam: Pupils Equal, Pupils Reactive (Milla Pack) Throat Throat Exam: Oral Mucosa [place] & Moist (Milla Pack) Neck Neck Exam: Neck Supple (Milla Pack) Pulmonary Resp Exam: Clear Bilaterally, Breath Sounds Equal, No Distress, Crackles, Decreased Bases Resp Remarks crackles mostly on right upper lung field (Milla Pack) Cardiology CV Exam: Regular, Normal Sinus Rhythm, Good Perfusion (Milla Pack) Gastrointestinal/Abdomen GI Exam: Soft, Non-Tender, Bowel Sounds Present (Milla Pack) Musculoskeletal MS Exam: Joints Intact, Normal Gait, Normal Tone, Good Strength (Milla Pack) Integumentary Skin Exam: Clear, Warm, Dry, Intact (Milla Pack) Extremeties Extremities Exam: No Edema, Pedal Pulses Palpable (Milla Pack) Neurologic Neuro Exam: Alert, Awake, Oriented, Speech Clear, Moving All Extremities (Milla Pack) Psychiatric Psych Exam: Appropriate Responses (Milla Pack) Assessment/Plan Discussed Condition With: Patient Assessment Summary: SEJAL/Acute Renal Failure, Anemia of CKD Electrolyte Assessment: Hypocalcemia, Hypokalemia, Metabolic Acidosis Problem List: (1) Chronic kidney disease, stage 5 ICD Codes: N18.5 - Chronic kidney disease, stage 5 Plan: Patient likely has reached ESRD. Although he is non oliguric. Continue dialysis support MWF. 1500 ml UF yesterday. He has appointment on 01/02 to discuss possible AVG placement; May need to see him inpatient if he is not discharged by then. replace electrolytes as needed Start nutritional support with meals; on high protein diet The plan is for him to enter transitional HD program at [place]. When he is approved he can be discharged, may take several weeks. Will keep in touch with case management regarding insurance; now he is being applied for medicare. (2) Hypokalemia ICD Codes: E87.6 - Hypokalemia Status: Acute Plan: He may have a proximal tubule disorder Follow labs, he requires daily replacement in addition to high K bath with HD 24 hour urine for potassium shows he has renal wasting (3) GI bleed ICD Codes: K92.2 - Gastrointestinal hemorrhage, unspecified Status: Acute Plan: GI has signed off; s/p EGD/colonoscopy may need capsule endoscopy outpatient (4) Hypocalcemia ICD Codes: E83.51 - Hypocalcemia Plan: Continue to reat hyperphosphatemia, on Sevelamer with meals. PTH around 130, less than the range desired for stage V CKD, Calcitriol was stopped (5) Pneumonia ICD Codes: J18.9 - Pneumonia, unspecified organism Status: Acute Plan: Pulmonary following, s/p bronchoscopy. CT chest taken No malignancies identified. On prednisone, and Robitussin Concern for aspergillus fungal ball in right lung, s/p lung biopsy , results not available Continue supportive care (6) Anemia ICD Codes: D64.9 - Anemia Status: Acute Plan: Transfuse as needed, Most recent 12/24 Continue high dose of Epogen with dialysis. (7) Acidosis ICD Codes: E87.2 - Acidosis Status: Acute Plan: corrected, monitor (Milla Pack) Plan patient was seen and examined. Agree with above assessment and plan. Monitor urine output and renal function as well as electrolytes. (Jim Zuluaga MD) Problem Qualifiers (1) GI bleed: (2) Pneumonia: Qualified Codes: J18.1 - Lobar pneumonia, unspecified organism (3) Anemia: Qualified Codes: N18.5 - Chronic kidney disease, stage 5; D63.1 - Anemia in chronic kidney disease Milla Pack Dec 25, 2016 13:53 Jim Zuluaga MD Dec 26, 2016 14:44
--- NOTE | 2016-12-25 16:21 | HHI.PR ---
Subjective Remarks Follow up for ESRD, Anemia, COPD. Pt reported feeling better since receiving blood transfusion over night. Pt reported continuing to "cough up blood" as a result of his biopsy. He reported production is lessening. Pt reported back pain at site where biopsy needed was introduced continues. "Dry cough" continues and patient voiced concern that "crud in my lungs is staying in there". Pt stated he felt "they are going to take my lung". No acute concerns. No fever, chills, NVD, abdominal/chest pain, dysuria. Per RN (Melanie) no acute issues noted overnight or since start of shift. Objective Vitals Vital Signs Date Time Temp Pulse Resp B/P (MAP) Pulse Ox O2 Delivery O2 Flow Rate FiO2 12/25/16 09:45 96 Nasal Cannula 2.00 12/25/16 08:00 87 12/25/16 08:00 98.3 98 18 117/78 (91) 99 12/25/16 08:00 Room Air 12/25/16 04:00 98.0 88 20 141/72 (95) 97 12/25/16 00:03 128/61 12/25/16 00:01 98.6 101 20 12/24/16 23:42 98.0 100 20 131/77 (95) 95 12/24/16 23:35 98.0 100 20 131/77 95 12/24/16 21:00 105 12/24/16 21:00 Room Air 12/24/16 19:55 98.8 100 18 113/74 (87) 94 12/24/16 17:33 95 Nasal Cannula 2.00 12/24/16 16:30 98.3 103 18 112/74 (87) 95 I/O 12/24/16 12/24/16 12/24/16 12/25/16 12/25/16 12/25/16 07:00 15:00 23:00 07:00 15:00 23:00 Intake Total 480 ml 960 ml 890 ml Output Total 800 ml 1500 ml 1200 ml 450 ml Balance -320 ml -1500 ml -240 ml 440 ml Intake Oral 480 ml 960 ml 480 ml Packed Cells 400 ml Blood Product IV Normal Saline Flush 10 ml Output Urine Total 800 ml 1200 ml 450 ml Hemodialysis 1500 ml # Bowel Movements 1 0 Result Diagram: 12/25/1631 9/21/17 0531 Imaging Last Impressions Chest X-Ray 12/23/16 1100 Signed Impressions: Service Date/Time: Friday, December 23, 2016 11:27 - CONCLUSION: 1. No pneumothorax post biopsy. 2. Stable airspace disease in the right upper lung with cavitation/bronchiectasis in the apex. Vernon Sanchez MD Lung Biopsy CT 12/23/16 0000 Signed Impressions: Service Date/Time: Friday, December 23, 2016 09:37 - CONCLUSION: Uncomplicated CT guided biopsy/aspiration. Broderick Ndiaye MD Chest CT 12/17/16 1715 Signed Impressions: Service Date/Time: Saturday, December 17, 2016 17:51 - CONCLUSION: 1. Dense consolidation persists in the right upper lobe with air bronchograms and air filled cystic spaces. Debris versus possible fungus ball in one of the cystic spaces at the apex which is new. Multi-organism pneumonia suspected. 2. Non-consolidative patchy infiltrate of the right middle and lower lobes not significantly changed. 3. Decreased pleural effusion on the right, now trace. Completely resolved pleural effusion on the left. 4. Previous median sternotomy. Caio Wray MD Upper Extremity Ultrasound 12/04/16 0000 Signed Impressions: Service Date/Time: November 18:26 - CONCLUSION: Venous mapping as delineated above. The cephalic veins are abnormal bilaterally. Caio Villalpando MD Renal Biopsy CT 12/02/16 1350 Signed Impressions: Service Date/Time: Friday, December 02, 2016 08:33 - CONCLUSION: Uncomplicated CT guided biopsy of the right kidney for function. Mustapha Vela Jr., MD Catheter Placement X-Ray 11/28/16 0000 Signed Impressions: Service Date/Time: Monday, November 28, 2016 15:57 - CONCLUSION: Uncomplicated PermaCath placement as above. Mustapha Vela Jr., MD Renal Ultrasound 11/22/16 0000 Signed Impressions: Service Date/Time: Tuesday, November 22, 2016 17:14 - CONCLUSION: Mild pelvocaliectasis right kidney not present previously. Obdulia Garcia MD Objective Remarks GENERAL: Pt encountered laying a bed, sleeping, easily awakened. NAD. SKIN: Warm and dry. HEAD: Normocephalic. EYES: No scleral icterus. No injection or drainage. NECK: Supple, trachea midline. No lymphadenopathy. CARDIOVASCULAR: Regular rate and rhythm without murmurs, gallops, or rubs. RESPIRATORY: Diminished breath sounds noted on right. No accessory muscle use. GASTROINTESTINAL: Abdomen soft, non-tender, nondistended. MUSCULOSKELETAL: No cyanosis, or edema. PSYCHIATRIC: Mood and affect normal, insight and judgment appropriate. Pt was pleasant and cooperative. Procedures 11/28/2016 Right Internal Jugular Hemodialysis Catheter Tunneled Placement dual lumen 12/02/2016 Successful right renal biopsy for function. Gelfoam and thrombin utilized. No bleeding on post CT Lung Biopsy 12/23/16. Dialysis 12/24/16. Medications and IVs Current Medications Medications (Trade) Dose Ordered Sig/[place] Route Start Time Stop Time Status Last Admin (NS Flush) 2 ml UNSCH PRN IVF 11/22/16 15:00 12/24/16 20:55 (Milk Of Magnesia Liq) 30 ml Q12H PRN PO 11/22/16 18:00 (Tylenol) 650 mg Q4H PRN PO 11/24/16 13:15 12/11/16 00:37 (Zofran Inj) 4 mg Q6H PRN IV 11/24/16 13:15 (Mag-Al Plus Susp Liq) 30 ml Q6H PRN PO 11/24/16 13:15 (Restoril) 15 mg HS PRN PO 11/24/16 13:15 12/24/16 23:09 (Vitamin D3) 2,000 units DAILY PO 11/25/16 09:15 12/25/16 09:23 (Lactinex) 1 tab Q12HR PO 11/26/16 21:00 12/25/16 09:23 (Hemorrhoidal Hc Supp) 25 mg DAILY RECTAL 11/27/16 09:00 12/12/16 09:00 Sodium Chloride 1,000 ml @ 0 mls/hr Q0M PRN OTHER 11/28/16 15:28 12/12/16 12:00 (Heparin Inj) 8,000 units UNSCH PRN IVF 11/28/16 15:30 Future Hold Sodium Chloride 1,000 ml @ 200 mls/hr Q5H PRN IV 11/28/16 15:28 Sodium Chloride 1,000 ml @ 0 mls/hr Q0M PRN OTHER 11/28/16 15:28 11/30/16 12:02 (Mannitol Inj) 12.5 gm UNSCH PRN IV 11/28/16 15:30 (Albumin 25% Inj) 25 gm UNSCH PRN IV 11/28/16 15:30 12/24/16 08:52 (NS Flush) 5 ml UNSCH PRN IV FLUSH 11/28/16 15:30 12/20/16 09:01 (Heparin Inj) UNSCH PRN .XX 11/28/16 15:30 12/24/16 08:53 (Gentamicin (Dialysis) Inj) 20 mg UNSCH PRN IV 11/28/16 15:30 12/24/16 08:52 (Zofran Inj) 4 mg UNSCH PRN IV 11/28/16 15:30 (Tylenol) 650 mg UNSCH PRN PO 11/28/16 15:30 12/19/16 13:06 (Benadryl) 25 mg UNSCH PRN PO 11/28/16 15:30 12/19/16 13:06 (Nitrostat Sl) 0.4 mg UNSCH PRN SL 11/28/16 15:30 (Catapres) 0.1 mg UNSCH PRN PO 11/28/16 15:30 (Gelfoam 12 Mm/7 Mm Top) 1 foam UNSCH PRN TOP 11/28/16 15:30 (NS Flush) UNSCH PRN IVF 11/28/16 18:15 (Heparin Inj) UNSCH PRN IV FLUSH 11/28/16 18:15 Future Hold (Duoneb Neb) 1 ampule Q4HR NEB PRN NEB 11/29/16 12:30 12/01/16 20:00 (Benadryl) 25 mg Q8H PRN PO 11/30/16 10:00 12/15/16 02:51 (Protonix) 40 mg Q12HR PO 12/01/16 21:00 12/25/16 09:23 (Renvela) 1,600 mg TIDAC PO 12/03/16 17:00 12/25/16 12:37 (KCl) 20 meq DAILY PO 12/04/16 09:00 12/25/16 09:23 (Robitussin Ac 200-20 Mg/10 ml Liq) 10 ml Q6H PRN PO 12/15/16 14:00 12/21/16 21:01 (Epogen Inj) 10,000 units UNSCH PRN IV 12/17/16 09:30 12/22/16 13:21 (Epogen Inj) 4,000 units UNSCH PRN IV 12/17/16 09:45 12/22/16 13:21 (Hemorrhoidal Hc Supp) 25 mg BID RECTAL 12/18/16 21:00 (Cepacol Extra [place]en[place] (Sugar Free)) 1 lozenge Q2HR PRN BUCCAL 12/23/16 09:00 (Tylenol) 650 mg Q4H PRN PO 12/24/16 19:15 12/25/16 19:14 (Benadryl) 25 mg Q4H PRN PO 12/24/16 19:15 12/25/16 19:14 12/24/16 23:27 ([place] 5-325 Mg) 1 tab Q4H PRN PO 12/25/16 09:15 Urinary Catheter: No A/P Problem List: (1) Sepsis ICD Code: A41.9 - Sepsis, unspecified organism Status: Acute (2) Acute renal failure ICD Code: N17.9 - Acute kidney failure, unspecified Status: Acute (3) Pneumonia ICD Code: J18.9 - Pneumonia, unspecified organism Status: Acute (4) Coronary artery disease ICD Code: I25.10 - Coronary artery disease Status: Acute (5) Anemia ICD Code: D64.9 - Anemia Status: Acute (6) Hematochezia ICD Code: K92.1 - Melena Status: Acute (7) Hypokalemia ICD Code: E87.6 - Hypokalemia Status: Acute Assessment and Plan Mr. Fonseca is a 55-year-old male patient with a known medical history of CAD, CKD, COPD and history of CABG who presented to the ED with complaints of increasing dyspnea, generalized weakness, fevers and frequent diaphoresis x 2 weeks. Dense cavitary pneumonia of the right lung: Lung biopsy completed on 12/23/16. Awaiting report. Aspergillus titers continue to be pending. ESRD: Dialysis 12/26. Chronic cough: Continues. Anemia: 1 unit of blood transfused over night. Hgb 8.1. Labs AM (12/26/16). Back pain: Lortab 5/325 q 4 hrs as needed pain 1-10. Evaluate in am. Sepsis on admission suspect secondary to right multilobular pneumonia-resolved Dense cavitary pneumonia of the right lung - Pulmonary following. - Completed cefepime 1 g every 12 hours on 12/06/16 - Cardiothoracic Surgery and ID consulted. Patient will likely need bx. - Further tx based on biopsy results. ESRD - Per nephrology will need [facility](MWF), - Patient underwent AV fistula surgery on 12/10/2016. However, patient may need AV graft. - US kidney/renal/bladder ordered and reviewed showing mild pelvocaliectasis right kidney. 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 Insurance arrangement may takes weeks. - Will change diet to regular. Hypokalemia -resolved. K+ 3.9 on 12/12/2016. Normochromic, normocytic anemia suspect secondary to acute blood loss/ hematochezia -Transfused total of 4 RBCs since admission, and transfuse for HgB<7.0, currently stable 8.6 on 12/09/2016. -Continue Protonix 40 mg twice a day ; appreciate input from GI -EGD/Colonoscopy on 12/18/2016 - No major findings, no bleeding source. - Hgb was 6.8 today, we will transfuse 1 unit of PRBCs. -Hgn 7.0 on 12/24, repeat H&H. Transfuse is 7.0 or less. Am labs. Chronic obstructive pulmonary disease respiratory failure Probable multi-organism pneumonia - Continue scheduled and PRN duonebs. - Benzoate PRN for cough. - Supplemental O2 to keep sats >88%. - pulmonary medicine following: solumedrol 20 mg BID x 2 days (12/07-12/09), CXR for 12/08 ordered and pending -S/P bronchoscopy 12/05/16 - cytology pathology report shows no malignancy. - CT chest on 12/17/2016, images reviewed by me shows diffuse dense consolidations. Radiologist also raise the possibly due to fungal ball. - Cardiothoracic surgery evaluated patient, recommended CT guided biopsy scheduled for 12/23/2016. -Results pending. - Chronic cough - Continue Robitussin before meals. Full code. DVT Prophylaxis: SCDs/TEDs., Ambulation. Case discussed with Pt, RN (at bedside), and Dr. Xavier. Discharge Planning Discharge plan : Patient cannot be discharged home without outpatient dialysis arrangements. Problem Qualifiers (1) Sepsis: (2) Acute renal failure: Qualified Codes: N17.8 - Other acute kidney failure (3) Pneumonia: Qualified Codes: J18.1 - Lobar pneumonia, unspecified organism (4) Coronary artery disease: Qualified Codes: I25.119 - Atherosclerotic heart disease of [place] coronary artery with unspecified angina pectoris (5) Anemia: Qualified Codes: N18.5 - Chronic kidney disease, stage 5; D63.1 - Anemia in chronic kidney disease Chavo Mcdaniel Jr. Dec 25, 2016 16:21
--- NOTE | 2016-12-25 19:07 | HHI.PR ---
Subjective Remarks Went for a CT guided biopsy of the RUL lesion. Has cough and no wheezing .Mild hemoptysis CT chest shows a RUL Cavity with a poss Fungus Ball. Biopsy of RUL lesion was Negative for Fungus ,AFB or malignancy. Showed Fibrotic Lung. Objective Vital Signs Date Time Temp Pulse Resp B/P (MAP) Pulse Ox O2 Delivery O2 Flow Rate FiO2 12/25/16 17:31 96 Nasal Cannula 2.00 12/25/16 16:00 98.5 93 18 119/70 (86) 96 12/25/16 09:45 96 Nasal Cannula 2.00 12/25/16 08:00 87 12/25/16 08:00 98.3 98 18 117/78 (91) 99 12/25/16 08:00 Room Air 12/25/16 04:00 98.0 88 20 141/72 (95) 97 12/25/16 00:03 128/61 12/25/16 00:01 98.6 101 20 12/24/16 23:42 98.0 100 20 131/77 (95) 95 12/24/16 23:35 98.0 100 20 131/77 95 12/24/16 21:00 105 12/24/16 21:00 Room Air 12/24/16 19:55 98.8 100 18 113/74 (87) 94 I/O 12/24/16 12/24/16 12/24/16 12/25/16 12/25/16 12/25/16 07:00 15:00 23:00 07:00 15:00 23:00 Intake Total 480 ml 960 ml 890 ml 960 ml Output Total 800 ml 1500 ml 1200 ml 450 ml 1400 ml Balance -320 ml -1500 ml -240 ml 440 ml -440 ml Intake Oral 480 ml 960 ml 480 ml 960 ml Packed Cells 400 ml Blood Product IV Normal Saline Flush 10 ml Output Urine Total 800 ml 1200 ml 450 ml 1400 ml Hemodialysis 1500 ml # Bowel Movements 1 0 0 Result Diagram: 12/25/1653012/25/16530 Objective Remarks GENERAL: This is a middle-aged averagely built white male who is alert and in no acute distress. HEAD, EYES, EARS, NOSE, THROAT: Head normocephalic. The pupils are reactive. Tongue is moist. Throat is clear. NECK: The neck is supple. No bruits. No thyroid enlargement. No lymphadenopathy. CHEST: Equal movements. Occ wheeze heard over Right chest. HEART: Heart sounds are regular. S1 and S2. No murmur. ABDOMEN: Abdomen is soft and protuberant. No masses or tenderness. EXTREMITIES: No edema. No calf tenderness. NEUROLOGIC: Reflexes are normal. No focal deficits. SKIN: Warm. Assessment and Plan Assessment and Plan IMPRESSION: 1. Extensive right lung pneumonia with Cavitation and Poss Fungal Infection 2. Chronic kidney disease with acute renal failure. 3. COPD with emphysema and chronic bronchitis. 4. History of coronary artery bypass grafting. Plan : 1. Chest X ray in am 2. O2 at 2 L. 3. Nebs qid , duoneb 4. Await Culture results from CT guided biopsy 5. IS at bedside q3h. 6. Dialysis as planned Alison Wilson MD Dec 25, 2016 19:07
[2016-12-25] MEDS: RESP: ALBUTEROL 2.5 MG/IPRATROPIUM 0.5 MG NEB (PRN) NEB (21:03)
[2016-12-25] MEDS: ACETAMINOPHEN/HYDROcodone 325 MG/5 MG TAB PO PRN (21:39)
[2016-12-26] VITALS (7 sets, daily range): BP systolic 106–132; BP diastolic 58–82; PULSE 85–100; RESP 16–20; TEMP 98–98.6; O2SAT 90–97
[2016-12-26] MEDS: SEVELAMER CARBONATE 800 MG TAB PO SCH ×3 (08:00→18:15)
--- NOTE | 2016-12-26 08:01 | RADRPT ---
EXAM DATE/TIME: 12/26/2016 06:47 [facility] COMPARISON: CHEST SINGLE AP, December 16, 2016, 5:48. INDICATIONS : Short of breath, productive cough, evaluate infiltrate MEDICAL HISTORY : Myocardial infarction. Hypertension. Osteoporosis. Neck pain. Dizziness. Chest pain. COPD. Asthma. Dy spnea. Ulcer. Renal failure. Urinary tract infection. Polyuria. SURGICAL HISTORY : Three vessel bypass. Bone marrow harvest. ENCOUNTER: Subsequent ACUITY: 2 days PAIN SCORE: 0/10 LOCATION: Bilateral chest FINDINGS: A single view of the chest demonstrates persistent cavitary consolidation right upper lobe. Right-boom ed vascular catheter unchanged. Left lung clear. Previous median sternotomy. Osseous structures are intact. CONCLUSION: Unchanged cavitary consolidation right upper lobe. Broderick Ndiaye MD on December 26, 2016 at 7:56 Board Certified Radiologist. This report was verified electronically.
[2016-12-26] MEDS: HYDROCORTISONE ACETATE 25 MG SUPP RECTAL SCH ×3 (09:00→21:00)
[2016-12-26] MEDS: GENTAMICIN SULFATE (DIALYSIS USE ONLY) 20 MG/2 ML VIAL IV PRN (11:40)
[2016-12-26] MEDS: HEPARIN SODIUM - IV 10,000 UNITS/10 ML VIAL PRN (11:40)
[2016-12-26] MEDS: SODIUM CHLOR 0.9% 1000 ML INJ 1,000 ML OTHER PRN (11:40)
[2016-12-26] MEDS: ACETAMINOPHEN/HYDROcodone 325 MG/5 MG TAB PO PRN (13:13)
[2016-12-26] MEDS: LACTOBACILLUS ACIDOPHILUS TAB PO SCH ×2 (13:13→22:20)
[2016-12-26] MEDS: POTASSIUM CHLORIDE 20 MEQ CONTROLLED RELEASE TAB PO SCH (13:14)
[2016-12-26] MEDS: CHOLECALCIFEROL (VIT D3) 1000 UNIT TAB PO SCH (13:14)
[2016-12-26] MEDS: PANTOPRAZOLE SOD 40 MG DELAYED RELEASE TAB PO SCH ×2 (13:14→22:20)
[2016-12-26] MEDS ORDERED: ceFAZolin 2 GM PREMIX 50 ML IV SCH (13:45)
[2016-12-26] MEDS ORDERED: CHLORHEXIDINE GLUCONATE 4% SOLN 120 ML BTL TOPICAL SCH (13:45)
[2016-12-26] MEDS ORDERED: CEFAZOLIN INJ 500 MG in SODIUM CHLORIDE 0.9% IRR BTL 500 ML IRRIGATION SCH (14:00)
--- NOTE | 2016-12-26 14:54 | HHI.PR ---
Subjective Remarks Follow up for ESRD, Anemia, COPD. Pt went to dialysis this morning and reported significant back pain "from laying in one position for so long (4 hours). Pt reported being "hot down there" when he usuall "needs to be bundled in blankets." Pt noted feeling nauseated from the pain. He said he was using oxygen (2 l by nasal cannula) to help control nausea. Pt reported continuing to "cough up blood" as a result of his biopsy. He reported production is "just a teensy amount this morning." back pain reported last night successfully treated with Crane. He also requested one this afternoon related to back pain that developed while in dialysis. Pt stated pulmonary physician has seen him and "told me I don't have aspergillus ". No acute concerns reported except as noted above. No fever, chills, NVD, abdominal/chest pain, dysuria. Per RN (Zabrina) no acute issues noted overnight or since start of shift. Objective Vitals Vital Signs Date Time Temp Pulse Resp B/P (MAP) Pulse Ox O2 Delivery O2 Flow Rate FiO2 12/26/16 08:05 92 Nasal Cannula 2.00 12/26/16 08:01 98.5 94 18 132/82 (99) 90 12/26/16 04:00 Room Air 12/26/16 04:00 98.2 93 20 109/58 (75) 96 12/26/16 00:00 98.1 90 20 131/79 (96) 97 12/26/16 00:00 Room Air 12/25/16 20:00 101 12/25/16 20:00 98.3 102 20 150/91 (110) 95 12/25/16 20:00 Room Air 12/25/16 17:31 96 Nasal Cannula 2.00 12/25/16 16:00 98.5 93 18 119/70 (86) 96 I/O 12/25/16 12/25/16 12/25/16 12/26/16 12/26/16 12/26/16 06:59 14:59 22:59 06:59 14:59 22:59 Intake Total 890 ml 1210 ml 240 ml Output Total 450 ml 1400 ml 600 ml 1500 ml Balance 440 ml -190 ml -360 ml -1500 ml Intake Oral 480 ml 960 ml 240 ml IV Total 250 ml Packed Cells 400 ml Blood Product IV Normal Saline Flush 10 ml Output Urine Total 450 ml 1400 ml 600 ml Hemodialysis 1500 ml # Bowel Movements 0 0 Result Diagram: 12/25/1653012/25/16530 Imaging Current Medications Medications (Trade) Dose Ordered Sig/Edwin Route Start Time Stop Time Status Last Admin (NS Flush) 2 ml UNSCH PRN IVF 11/22/16 15:00 12/24/16 20:55 (Milk Of Magnesia Liq) 30 ml Q12H PRN PO 11/22/16 18:00 (Tylenol) 650 mg Q4H PRN PO 11/24/16 13:15 12/11/16 00:37 (Zofran Inj) 4 mg Q6H PRN IV 11/24/16 13:15 (Mag-Al Plus Susp Liq) 30 ml Q6H PRN PO 11/24/16 13:15 (Restoril) 15 mg HS PRN PO 11/24/16 13:15 12/24/16 23:09 (Vitamin D3) 2,000 units DAILY PO 11/25/16 09:15 12/26/16 13:14 (Lactinex) 1 tab Q12HR PO 11/26/16 21:00 12/26/16 13:13 (Hemorrhoidal Hc Supp) 25 mg DAILY RECTAL 11/27/16 09:00 12/12/16 09:00 Sodium Chloride 1,000 ml @ 0 mls/hr Q0M PRN OTHER 11/28/16 15:28 12/26/16 11:40 (Heparin Inj) 8,000 units UNSCH PRN IVF 11/28/16 15:30 Future Hold Sodium Chloride 1,000 ml @ 200 mls/hr Q5H PRN IV 11/28/16 15:28 Sodium Chloride 1,000 ml @ 0 mls/hr Q0M PRN OTHER 11/28/16 15:28 11/30/16 12:02 (Mannitol Inj) 12.5 gm UNSCH PRN IV 11/28/16 15:30 (Albumin 25% Inj) 25 gm UNSCH PRN IV 11/28/16 15:30 12/24/16 08:52 (NS Flush) 5 ml UNSCH PRN IV FLUSH 11/28/16 15:30 12/20/16 09:01 (Heparin Inj) UNSCH PRN .XX 11/28/16 15:30 12/26/16 11:40 (Gentamicin (Dialysis) Inj) 20 mg UNSCH PRN IV 11/28/16 15:30 12/26/16 11:40 (Zofran Inj) 4 mg UNSCH PRN IV 11/28/16 15:30 (Tylenol) 650 mg UNSCH PRN PO 11/28/16 15:30 12/19/16 13:06 (Benadryl) 25 mg UNSCH PRN PO 11/28/16 15:30 12/19/16 13:06 (Nitrostat Sl) 0.4 mg UNSCH PRN SL 11/28/16 15:30 (Catapres) 0.1 mg UNSCH PRN PO 11/28/16 15:30 (Gelfoam 12 Mm/7 Mm Top) 1 foam UNSCH PRN TOP 11/28/16 15:30 (NS Flush) UNSCH PRN IVF 11/28/16 18:15 (Heparin Inj) UNSCH PRN IV FLUSH 11/28/16 18:15 Future Hold (Duoneb Neb) 1 ampule Q4HR NEB PRN NEB 11/29/16 12:30 12/25/16 21:03 (Benadryl) 25 mg Q8H PRN PO 11/30/16 10:00 12/15/16 02:51 (Protonix) 40 mg Q12HR PO 12/01/16 21:00 12/26/16 13:14 (Renvela) 1,600 mg TIDAC PO 12/03/16 17:00 12/26/16 13:14 (KCl) 20 meq DAILY PO 12/04/16 09:00 12/26/16 13:14 (Robitussin Ac 200-20 Mg/10 ml Liq) 10 ml Q6H PRN PO 12/15/16 14:00 12/21/16 21:01 (Epogen Inj) 10,000 units UNSCH PRN IV 12/17/16 09:30 12/22/16 13:21 (Epogen Inj) 4,000 units UNSCH PRN IV 12/17/16 09:45 12/22/16 13:21 (Hemorrhoidal Hc Supp) 25 mg BID RECTAL 12/18/16 21:00 (Cepacol Extra Elenita (Sugar Free)) 1 lozenge Q2HR PRN BUCCAL 12/23/16 09:00 (Crane 5-325 Mg) 1 tab Q4H PRN PO 12/25/16 09:15 12/26/16 13:13 Cefazolin Sodium 500 mg/Sodium Chloride 505 ml @ 0 mls/hr MACHINE PACKER IRRIGATION 12/26/16 14:00 01/02/17 13:59 Cefazolin Sodium/ Dextrose 50 ml @ 150 mls/hr MACHINE PACKER IV 12/26/16 13:45 01/02/17 13:44 (Hibiclens 4% Top Soln) 1 applic MACHINE PACKER TOPICAL 12/26/16 13:45 01/02/17 13:44 Objective Remarks GENERAL: Pt encountered laying a bed, visiting with friend. smiling. NAD. SKIN: Warm and dry. Port noted in upper right chest. HEAD: Normocephalic. EYES: No scleral icterus. No injection or drainage. NECK: Supple, trachea midline. No lymphadenopathy. CARDIOVASCULAR: Regular rate and rhythm without murmurs, gallops, or rubs. RESPIRATORY: Diminished breath sounds noted on right. No accessory muscle use. GASTROINTESTINAL: Abdomen soft, non-tender, nondistended. MUSCULOSKELETAL: No cyanosis, or edema. PSYCHIATRIC: Mood and affect normal, insight and judgment appropriate. Pt was pleasant and cooperative. Procedures 11/28/2016 Right Internal Jugular Hemodialysis Catheter Tunneled Placement dual lumen 12/02/2016 Successful right renal biopsy for function. Gelfoam and thrombin utilized. No bleeding on post CT Lung Biopsy 12/23/16. Dialysis 12/24/16. Medications and IVs Current Medications Medications (Trade) Dose Ordered Sig/Edwin Route Start Time Stop Time Status Last Admin (NS Flush) 2 ml UNSCH PRN IVF 11/22/16 15:00 12/24/16 20:55 (Milk Of Magnesia Liq) 30 ml Q12H PRN PO 11/22/16 18:00 (Tylenol) 650 mg Q4H PRN PO 11/24/16 13:15 12/11/16 00:37 (Zofran Inj) 4 mg Q6H PRN IV 11/24/16 13:15 (Mag-Al Plus Susp Liq) 30 ml Q6H PRN PO 11/24/16 13:15 (Restoril) 15 mg HS PRN PO 11/24/16 13:15 12/24/16 23:09 (Vitamin D3) 2,000 units DAILY PO 11/25/16 09:15 12/26/16 13:14 (Lactinex) 1 tab Q12HR PO 11/26/16 21:00 12/26/16 13:13 (Hemorrhoidal Hc Supp) 25 mg DAILY RECTAL 11/27/16 09:00 12/12/16 09:00 Sodium Chloride 1,000 ml @ 0 mls/hr Q0M PRN OTHER 11/28/16 15:28 12/26/16 11:40 (Heparin Inj) 8,000 units UNSCH PRN IVF 11/28/16 15:30 Future Hold Sodium Chloride 1,000 ml @ 200 mls/hr Q5H PRN IV 11/28/16 15:28 Sodium Chloride 1,000 ml @ 0 mls/hr Q0M PRN OTHER 11/28/16 15:28 11/30/16 12:02 (Mannitol Inj) 12.5 gm UNSCH PRN IV 11/28/16 15:30 (Albumin 25% Inj) 25 gm UNSCH PRN IV 11/28/16 15:30 12/24/16 08:52 (NS Flush) 5 ml UNSCH PRN IV FLUSH 11/28/16 15:30 12/20/16 09:01 (Heparin Inj) UNSCH PRN .XX 11/28/16 15:30 12/26/16 11:40 (Gentamicin (Dialysis) Inj) 20 mg UNSCH PRN IV 11/28/16 15:30 12/26/16 11:40 (Zofran Inj) 4 mg UNSCH PRN IV 11/28/16 15:30 (Tylenol) 650 mg UNSCH PRN PO 11/28/16 15:30 12/19/16 13:06 (Benadryl) 25 mg UNSCH PRN PO 11/28/16 15:30 12/19/16 13:06 (Nitrostat Sl) 0.4 mg UNSCH PRN SL 11/28/16 15:30 (Catapres) 0.1 mg UNSCH PRN PO 11/28/16 15:30 (Gelfoam 12 Mm/7 Mm Top) 1 foam UNSCH PRN TOP 11/28/16 15:30 (NS Flush) UNSCH PRN IVF 11/28/16 18:15 (Heparin Inj) UNSCH PRN IV FLUSH 11/28/16 18:15 Future Hold (Duoneb Neb) 1 ampule Q4HR NEB PRN NEB 11/29/16 12:30 12/25/16 21:03 (Benadryl) 25 mg Q8H PRN PO 11/30/16 10:00 12/15/16 02:51 (Protonix) 40 mg Q12HR PO 12/01/16 21:00 12/26/16 13:14 (Renvela) 1,600 mg TIDAC PO 12/03/16 17:00 12/26/16 13:14 (KCl) 20 meq DAILY PO 12/04/16 09:00 12/26/16 13:14 (Robitussin Ac 200-20 Mg/10 ml Liq) 10 ml Q6H PRN PO 12/15/16 14:00 12/21/16 21:01 (Epogen Inj) 10,000 units UNSCH PRN IV 12/17/16 09:30 12/22/16 13:21 (Epogen Inj) 4,000 units UNSCH PRN IV 12/17/16 09:45 12/22/16 13:21 (Hemorrhoidal Hc Supp) 25 mg BID RECTAL 12/18/16 21:00 (Cepacol Extra Elenita (Sugar Free)) 1 lozenge Q2HR PRN BUCCAL 12/23/16 09:00 (Crane 5-325 Mg) 1 tab Q4H PRN PO 12/25/16 09:15 12/26/16 13:13 Cefazolin Sodium 500 mg/Sodium Chloride 505 ml @ 0 mls/hr MACHINE PACKER IRRIGATION 12/26/16 14:00 01/02/17 13:59 Cefazolin Sodium/ Dextrose 50 ml @ 150 mls/hr MACHINE PACKER IV 12/26/16 13:45 01/02/17 13:44 (Hibiclens 4% Top Soln) 1 applic MACHINE PACKER TOPICAL 12/26/16 13:45 01/02/17 13:44 Urinary Catheter: No A/P Problem List: (1) Sepsis ICD Code: A41.9 - Sepsis, unspecified organism Status: Acute (2) Acute renal failure ICD Code: N17.9 - Acute kidney failure, unspecified Status: Acute (3) Pneumonia ICD Code: J18.9 - Pneumonia, unspecified organism Status: Acute (4) Coronary artery disease ICD Code: I25.10 - Coronary artery disease Status: Acute (5) Anemia ICD Code: D64.9 - Anemia Status: Acute (6) Hematochezia ICD Code: K92.1 - Melena Status: Acute (7) Hypokalemia ICD Code: E87.6 - Hypokalemia Status: Acute Assessment and Plan Mr. Fonseca is a 55-year-old male patient with a known medical history of CAD, CKD, COPD and history of CABG who presented to the ED with complaints of increasing dyspnea, generalized weakness, fevers and frequent diaphoresis x 2 weeks. Dense cavitary pneumonia of the right lung: Lung biopsy completed on 12/23/16. Negative Aspergillus titers. Chest x-ray of 12/26/16 no significant change. ESRD : Dialysis 12/26/16. Chronic cough: Continues. Anemia: Check labs in AM (). Back pain: Lortab 5/325 q 6 hrs as needed pain 1-10. Hypokalemia: 4.0 for past two checks. Sepsis on admission suspect secondary to right multilobular pneumonia-resolved Dense cavitary pneumonia of the right lung - Pulmonary following. - Completed cefepime 1 g every 12 hours on 12/06/16 - Cardiothoracic Surgery and ID consulted. Patient will likely need bx. - Further tx based on biopsy results. -Negative Aspergillus titers/ ESRD - Per nephrology will need senior architect/design manager dialysis(MWF), - Patient underwent AV fistula surgery on 12/10/2016. However, patient may need AV graft. - US kidney/renal/bladder ordered and reviewed showing mild pelvocaliectasis right kidney. 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 Insurance arrangement may takes weeks. - Will change diet to regular. Hypokalemia -resolved. K+ 3.9 on 12/12/2016. Normochromic, normocytic anemia suspect secondary to acute blood loss/ hematochezia -Transfused total of 4 RBCs since admission, and transfuse for HgB<7.0, currently stable 8.6 on 12/09/2016. -Continue Protonix 40 mg twice a day ; appreciate input from GI -EGD/Colonoscopy on 12/18/2016 - No major findings, no bleeding source. - Hgb was 6.8 today, we will transfuse 1 unit of PRBCs. -Hgn 7.0 on 12/24, repeat H&H. Transfuse is 7.0 or less. Am labs. Chronic obstructive pulmonary disease respiratory failure Probable multi-organism pneumonia - Continue scheduled and PRN duonebs. - Benzoate PRN for cough. - Supplemental O2 to keep sats >88%. - pulmonary medicine following: solumedrol 20 mg BID x 2 days (12/07-12/09), CXR for 12/08 ordered and pending -S/P bronchoscopy 12/05/16 - cytology pathology report shows no malignancy. - CT chest on 12/17/2016, images reviewed by me shows diffuse dense consolidations. Radiologist also raise the possibly due to fungal ball. - Cardiothoracic surgery evaluated patient, recommended CT guided biopsy scheduled for 12/23/2016. -Results pending. -Negative for Aspergillus. - Chronic cough - Continue Robitussin before meals. Full code. DVT Prophylaxis: SCDs/TEDs., Ambulation. Case discussed with Pt, RN, and Dr. Xavier. Discharge Planning Discharge plan : Patient cannot be discharged home without outpatient dialysis arrangements. Problem Qualifiers (1) Sepsis: (2) Acute renal failure: Qualified Codes: N17.8 - Other acute kidney failure (3) Pneumonia: Qualified Codes: J18.1 - Lobar pneumonia, unspecified organism (4) Coronary artery disease: Qualified Codes: I25.119 - Atherosclerotic heart disease of [place] coronary artery with unspecified angina pectoris (5) Anemia: Qualified Codes: N18.5 - Chronic kidney disease, stage 5; D63.1 - Anemia in chronic kidney disease Chavo Mcdaniel Jr. Dec 26, 2016 14:54
--- NOTE | 2016-12-26 15:00 | HHI.PR ---
Addendum to Inpatient Note Additional Information no e/o fungal infx on path and clx will sign off dw Claire Grullon Alexandra A. MD Dec 26, 2016 15:00
--- NOTE | 2016-12-26 15:49 | HHI.NPPN ---
Subjective General Problems: Anemia Renal Failure: Acute Interval History Dialyzed today. The biopsy report resulted. (Milla Pack) Review of Systems General Constitutional: Fatigue (Milla Pack) Respiratory Lungs: Cough, Sputum Respiratory Remarks slightly hemoptysis (Milla Pack) Objective Data Data 12/26/16 12/27/16 19:00 07:00 Output Total 1500 ml Balance -1500 ml Hemodialysis 1500 ml Vital Signs Date Time Temp Pulse Resp B/P (MAP) Pulse Ox O2 Delivery O2 Flow Rate FiO2 12/26/16 08:05 92 Nasal Cannula 2.00 12/26/16 08:01 98.5 94 18 132/82 (99) 90 12/26/16 04:00 Room Air 12/26/16 04:00 98.2 93 20 109/58 (75) 96 12/26/16 00:00 98.1 90 20 131/79 (96) 97 12/26/16 00:00 Room Air 12/25/16 20:00 101 12/25/16 20:00 98.3 102 20 150/91 (110) 95 12/25/16 20:00 Room Air 12/25/16 17:31 96 Nasal Cannula 2.00 12/25/16 16:00 98.5 93 18 119/70 (86) 96 (Milla Pack) -: 12/25/16 0531 12/25/16 0531 Tubes & Lines: Perma-Cath (Milla Pack) Physical Exam General Appearance: Well Developed, Well Nourished, No Acute Distress, Comfortable (Milla Pack) Eyes Eye Exam: Pupils Equal, Pupils Reactive (Milla Pack) Throat Throat Exam: Oral Mucosa [place] & Moist (Milla Pack) Neck Neck Exam: Neck Supple (Milla Pack) Pulmonary Resp Exam: Clear Bilaterally, Breath Sounds Equal, No Distress, Crackles, Decreased Bases Resp Remarks crackles mostly on right upper lung field (Milla Pack) Cardiology CV Exam: Regular, Normal Sinus Rhythm, Good Perfusion (Milla Pack) Gastrointestinal/Abdomen GI Exam: Soft, Non-Tender, Bowel Sounds Present (Milla Pack) Musculoskeletal MS Exam: Joints Intact, Normal Gait, Normal Tone, Good Strength (Milla Pack) Integumentary Skin Exam: Clear, Warm, Dry, Intact (Milla Pack) Extremeties Extremities Exam: No Edema, Pedal Pulses Palpable (Milla Pack) Neurologic Neuro Exam: Alert, Awake, Oriented, Speech Clear, Moving All Extremities (Milla Pack) Psychiatric Psych Exam: Appropriate Responses (Milla Pack) Assessment/Plan Discussed Condition With: Patient Assessment Summary: SEJAL/Acute Renal Failure, Anemia of CKD Electrolyte Assessment: Hypocalcemia, Hypokalemia, Metabolic Acidosis Problem List: (1) Chronic kidney disease, stage 5 ICD Codes: N18.5 - Chronic kidney disease, stage 5 Plan: Patient likely has reached ESRD. Although he is non oliguric. Continue dialysis support MWF. 1.5L UF today. He has appointment on 01/02 to discuss possible AVG placement; May need to see him inpatient if he is not discharged by then. replace electrolytes as needed Continue nutritional support with meals; on high protein diet The plan is for him to enter transitional HD program at [facility]. When he is approved he can be discharged, may take several weeks. Will keep in touch with case management regarding insurance; now he is being applied for medicare. (2) Hypokalemia ICD Codes: E87.6 - Hypokalemia Status: Acute Plan: He may have a proximal tubule disorder Follow labs, he requires daily replacement in addition to high K bath with HD 24 hour urine for potassium shows he has renal wasting (3) GI bleed ICD Codes: K92.2 - Gastrointestinal hemorrhage, unspecified Status: Acute Plan: GI has signed off; s/p EGD/colonoscopy may need capsule endoscopy outpatient (4) Hypocalcemia ICD Codes: E83.51 - Hypocalcemia Plan: Continue to reat hyperphosphatemia, on Sevelamer with meals. PTH around 130, less than the range desired for stage V CKD, Calcitriol was stopped (5) Pneumonia ICD Codes: J18.9 - Pneumonia, unspecified organism Status: Acute Plan: Pulmonary following, s/p bronchoscopy. CT chest taken No malignancies identified. On prednisone, and Robitussin Biopsy negative for pulmonary aspergillus fungal ball in right lung Continue supportive care (6) Anemia ICD Codes: D64.9 - Anemia Status: Acute Plan: Transfuse as needed, Most recent 12/24 Continue high dose of Epogen with dialysis. (7) Acidosis ICD Codes: E87.2 - Acidosis Status: Acute Plan: corrected, monitor (Milla Pack) Plan patient was seen and examined. Agree with above assessment and plan. (Jim Zuluaga MD) Problem Qualifiers (1) GI bleed: (2) Pneumonia: Qualified Codes: J18.1 - Lobar pneumonia, unspecified organism (3) Anemia: Qualified Codes: N18.5 - Chronic kidney disease, stage 5; D63.1 - Anemia in chronic kidney disease Milla Pack Dec 26, 2016 15:49 Jim Zuluaga MD Dec 28, 2016 15:35
--- NOTE | 2016-12-26 16:06 | PD.CAR.PN ---
CVT Progress Note Subjective/Hospital Course: ct guided lung bx / no fungal elements Dr Claire Lott requesting re-eval for possible thoractomy discussed with pt right thoracotomy for pulmonary resection Dr Roth will dissucc further with pt on Thursday tentatively scheduled for case Objective: Vital Signs Date Time Temp Pulse Resp B/P (MAP) Pulse Ox O2 Delivery O2 Flow Rate FiO2 12/26/16 08:05 92 Nasal Cannula 2.00 12/26/16 08:01 98.5 94 18 132/82 (99) 90 12/26/16 04:00 Room Air 12/26/16 04:00 98.2 93 20 109/58 (75) 96 12/26/16 00:00 98.1 90 20 131/79 (96) 97 12/26/16 00:00 Room Air 12/25/16 20:00 101 12/25/16 20:00 98.3 102 20 150/91 (110) 95 12/25/16 20:00 Room Air 12/25/16 17:31 96 Nasal Cannula 2.00 Result Diagram: 12/25/16 0531 12/25/16 0531 Marly Heart Dec 26, 2016 16:06
--- NOTE | 2016-12-26 17:59 | HHI.PR ---
Subjective Remarks Went for a CT guided biopsy of the RUL lesion. Has cough and .Mild hemoptysis.No fever . Rpt CXR shows chronic RUL cavitary disease. CT chest shows a RUL Cavity with a poss Fungus Ball. Biopsy of RUL lesion was Negative for Fungus ,AFB or malignancy. Showed Fibrotic Lung. Objective Vital Signs Date Time Temp Pulse Resp B/P (MAP) Pulse Ox O2 Delivery O2 Flow Rate FiO2 12/26/16 16:38 Room Air 12/26/16 16:01 98.0 85 18 106/66 (79) 90 12/26/16 08:05 92 Nasal Cannula 2.00 12/26/16 08:01 98.5 94 18 132/82 (99) 90 12/26/16 04:00 Room Air 12/26/16 04:00 98.2 93 20 109/58 (75) 96 12/26/16 00:00 98.1 90 20 131/79 (96) 97 12/26/16 00:00 Room Air 12/25/16 20:00 101 12/25/16 20:00 98.3 102 20 150/91 (110) 95 12/25/16 20:00 Room Air I/O 12/25/16 12/25/16 12/25/16 12/26/16 12/26/16 12/26/16 07:00 15:00 23:00 07:00 15:00 23:00 Intake Total 890 ml 1210 ml 240 ml Output Total 450 ml 1400 ml 600 ml 1500 ml Balance 440 ml -190 ml -360 ml -1500 ml Intake Oral 480 ml 960 ml 240 ml IV Total 250 ml Packed Cells 400 ml Blood Product IV Normal Saline Flush 10 ml Output Urine Total 450 ml 1400 ml 600 ml Hemodialysis 1500 ml # Bowel Movements 0 0 Result Diagram: 12/25/1653012/25/1631 Objective Remarks GENERAL: This is a middle-aged averagely built white male who is alert and in no acute distress. HEAD, EYES, EARS, NOSE, THROAT: Head normocephalic. The pupils are reactive. Tongue is moist. Throat is clear. NECK: The neck is supple. No bruits. No thyroid enlargement. No lymphadenopathy. CHEST: Equal movements. Occ wheeze heard over Right chest.Occ Crackles. HEART: Heart sounds are regular. S1 and S2. No murmur. ABDOMEN: Abdomen is soft and protuberant. No masses or tenderness. EXTREMITIES: No edema. No calf tenderness. NEUROLOGIC: Reflexes are normal. No focal deficits. SKIN: Warm. Assessment and Plan Assessment and Plan IMPRESSION: 1. Extensive right lung pneumonia with Cavitation and Poss Fungal Infection 2. Chronic kidney disease with acute renal failure. 3. COPD with emphysema and chronic bronchitis. 4. History of coronary artery bypass grafting. Plan : 1. D/W Thoracic surgery about Vats Thoracotomy and RUL resection 2. Cont O2 at 2 L. 3. Nebs qid , duoneb 4. Await Culture results from CT guided biopsy 5. IS at bedside q3h. 6. Dialysis as planned 7. CBC,Coags on Thursday Alison Wilson MD Dec 26, 2016 17:59
[2016-12-27] VITALS (9 sets, daily range): BP systolic 96–134; BP diastolic 63–78; PULSE 81–100; RESP 16–20; TEMP 98–98.7; O2SAT 92–98
[2016-12-27 08:06] LABS: HEMATOCRIT 28.1 % (39.0-51.0); MEAN CELL VOLUME 93.5 FL (80.0-100.0); MEAN CORPUSCULAR HEMOGLOBIN 30.2 PG (27.0-34.0); MEAN CORPUSCULAR HGB CONC 32.3 % (32.0-36.0); PLATELET COUNT 186 TH/MM3 (150-450); RED CELL DISTRIBUTION WIDTH 16.5 % (11.6-17.2); REVIEW FLAG FINAL; WHITE BLOOD COUNT 6.1 TH/MM3 (4.0-11.0)
[2016-12-27 08:17] LABS: POTASSIUM 4.1 MEQ/L (3.5-5.1)
[2016-12-27] MEDS: CHOLECALCIFEROL (VIT D3) 1000 UNIT TAB PO SCH (08:25)
[2016-12-27] MEDS: POTASSIUM CHLORIDE 20 MEQ CONTROLLED RELEASE TAB PO SCH (08:25)
[2016-12-27] MEDS: PANTOPRAZOLE SOD 40 MG DELAYED RELEASE TAB PO SCH ×2 (08:25→20:16)
[2016-12-27] MEDS: HYDROCORTISONE ACETATE 25 MG SUPP RECTAL SCH ×3 (08:25→20:17)
[2016-12-27] MEDS: SEVELAMER CARBONATE 800 MG TAB PO SCH ×3 (08:25→16:53)
[2016-12-27] MEDS: LACTOBACILLUS ACIDOPHILUS TAB PO SCH ×2 (08:25→20:17)
--- NOTE | 2016-12-27 13:28 | HHI.PR ---
Subjective Remarks Follow up for ESRD, Anemia, COPD. Patient reported taking one [place] last evening for back pain; medication reported to be helpful. Patient reported having "coughing spells" this morning and was using nasal cannula to "get my wind back". Patient reported little to no "coughing up blood since yesterday. Patient stated that he will undergo partial lobectomy (apex) of his right lung on Thursday. Patient stated that he is continuing to "urinate copious amounts" and has been doing so since admission. No acute concerns reported except as noted above. No fever, chills, NVD, abdominal/chest pain, dysuria. Pt denied fever, cough, nausea, vomiting, diarrhea, abdominal/chest pain Per RN (Zabrina) no acute issues noted overnight or since start of shift. Objective Vitals Vital Signs Date Time Temp Pulse Resp B/P (MAP) Pulse Ox O2 Delivery O2 Flow Rate FiO2 12/27/16 09:34 Room Air 12/27/16 09:10 92 21 12/27/16 08:00 98.1 99 16 96/74 (81) 95 12/27/16 04:00 98.3 95 18 118/78 (91) 98 12/27/16 00:00 Room Air 12/27/16 00:00 98.7 98 16 113/69 (84) 97 12/26/16 20:00 85 12/26/16 20:00 98.6 100 16 106/74 (85) 95 12/26/16 20:00 Room Air 12/26/16 16:38 Room Air 12/26/16 16:01 98.0 85 18 106/66 (79) 90 I/O 12/26/16 12/26/16 12/26/16 12/27/16 12/27/16 12/27/16 07:00 15:00 23:00 07:00 15:00 23:00 Intake Total 240 ml 360 ml 480 ml Output Total 600 ml 1500 ml 500 ml Balance -360 ml -1500 ml -140 ml 480 ml Intake Oral 240 ml 360 ml 480 ml Output Urine Total 600 ml 500 ml Hemodialysis 1500 ml # Voids 2 # Bowel Movements 0 1 Result Diagram: 12/27/16 0535 12/27/16 0535 Imaging Last Impressions Chest X-Ray 12/26/16 06 Signed Impressions: Service Date/Time: Monday, December 26, 2016 06:47 - CONCLUSION: Unchanged cavitary consolidation right upper lobe. Broderick Ndiaye MD Lung Biopsy CT 12/23/16 0000 Signed Impressions: Service Date/Time: Friday, December 23, 2016 09:37 - CONCLUSION: Uncomplicated CT guided biopsy/aspiration. Broderick Ndiaye MD Chest CT 12/17/16 1715 Signed Impressions: Service Date/Time: Saturday, December 17, 2016 17:51 - CONCLUSION: 1. Dense consolidation persists in the right upper lobe with air bronchograms and air filled cystic spaces. Debris versus possible fungus ball in one of the cystic spaces at the apex which is new. Multi-organism pneumonia suspected. 2. Non-consolidative patchy infiltrate of the right middle and lower lobes not significantly changed. 3. Decreased pleural effusion on the right, now trace. Completely resolved pleural effusion on the left. 4. Previous median sternotomy. Caio Wray MD Upper Extremity Ultrasound 12/04/16 0000 Signed Impressions: Service Date/Time: November 18:26 - CONCLUSION: Venous mapping as delineated above. The cephalic veins are abnormal bilaterally. Caio Villalpando MD Renal Biopsy CT 12/02/16 1350 Signed Impressions: Service Date/Time: Friday, December 02, 2016 08:33 - CONCLUSION: Uncomplicated CT guided biopsy of the right kidney for function. Mustapha Vela Jr., MD Catheter Placement X-Ray 11/28/16 0000 Signed Impressions: Service Date/Time: Monday, November 28, 2016 15:57 - CONCLUSION: Uncomplicated PermaCath placement as above. Mustapha Vela Jr., MD Renal Ultrasound 11/22/16 0000 Signed Impressions: Service Date/Time: Tuesday, November 22, 2016 17:14 - CONCLUSION: Mild pelvocaliectasis right kidney not present previously. Obdulia Garcia MD Objective Remarks GENERAL: Pt encountered laying a bed, smiling. NAD. SKIN: Warm and dry. Port noted in upper right chest. HEAD: Normocephalic. EYES: No scleral icterus. No injection or drainage. NECK: Supple, trachea midline. No lymphadenopathy. CARDIOVASCULAR: Regular rate and rhythm without murmurs, gallops, or rubs. RESPIRATORY: Diminished breath sounds noted on right. No accessory muscle use. GASTROINTESTINAL: Abdomen soft, non-tender, nondistended. MUSCULOSKELETAL: No cyanosis, or edema. PSYCHIATRIC: Mood and affect normal, insight and judgment appropriate. Pt was pleasant and cooperative. Procedures 11/28/2016 Right Internal Jugular Hemodialysis Catheter Tunneled Placement dual lumen 12/02/2016 Successful right renal biopsy for function. Gelfoam and thrombin utilized. No bleeding on post CT Lung Biopsy 12/23/16. Dialysis 12/24/16. Medications and IVs Current Medications Medications (Trade) Dose Ordered Sig/Edwin Route Start Time Stop Time Status Last Admin (NS Flush) 2 ml UNSCH PRN IVF 11/22/16 15:00 12/24/16 20:55 (Milk Of Magnesia Liq) 30 ml Q12H PRN PO 11/22/16 18:00 (Tylenol) 650 mg Q4H PRN PO 11/24/16 13:15 12/11/16 00:37 (Zofran Inj) 4 mg Q6H PRN IV 11/24/16 13:15 (Mag-Al Plus Susp Liq) 30 ml Q6H PRN PO 11/24/16 13:15 (Restoril) 15 mg HS PRN PO 11/24/16 13:15 12/24/16 23:09 (Vitamin D3) 2,000 units DAILY PO 11/25/16 09:15 12/27/16 08:25 (Lactinex) 1 tab Q12HR PO 11/26/16 21:00 12/27/16 08:25 (Hemorrhoidal Hc Supp) 25 mg DAILY RECTAL 11/27/16 09:00 12/12/16 09:00 Sodium Chloride 1,000 ml @ 0 mls/hr Q0M PRN OTHER 11/28/16 15:28 12/26/16 11:40 (Heparin Inj) 8,000 units UNSCH PRN IVF 11/28/16 15:30 Future Hold Sodium Chloride 1,000 ml @ 200 mls/hr Q5H PRN IV 11/28/16 15:28 Sodium Chloride 1,000 ml @ 0 mls/hr Q0M PRN OTHER 11/28/16 15:28 11/30/16 12:02 (Mannitol Inj) 12.5 gm UNSCH PRN IV 11/28/16 15:30 (Albumin 25% Inj) 25 gm UNSCH PRN IV 11/28/16 15:30 12/24/16 08:52 (NS Flush) 5 ml UNSCH PRN IV FLUSH 11/28/16 15:30 12/20/16 09:01 (Heparin Inj) UNSCH PRN .XX 11/28/16 15:30 12/26/16 11:40 (Gentamicin (Dialysis) Inj) 20 mg UNSCH PRN IV 11/28/16 15:30 12/26/16 11:40 (Zofran Inj) 4 mg UNSCH PRN IV 11/28/16 15:30 (Tylenol) 650 mg UNSCH PRN PO 11/28/16 15:30 12/19/16 13:06 (Benadryl) 25 mg UNSCH PRN PO 11/28/16 15:30 12/19/16 13:06 (Nitrostat Sl) 0.4 mg UNSCH PRN SL 11/28/16 15:30 (Catapres) 0.1 mg UNSCH PRN PO 11/28/16 15:30 (Gelfoam 12 Mm/7 Mm Top) 1 foam UNSCH PRN TOP 11/28/16 15:30 (NS Flush) UNSCH PRN IVF 11/28/16 18:15 (Heparin Inj) UNSCH PRN IV FLUSH 11/28/16 18:15 Future Hold (Duoneb Neb) 1 ampule Q4HR NEB PRN NEB 11/29/16 12:30 12/25/16 21:03 (Benadryl) 25 mg Q8H PRN PO 11/30/16 10:00 12/15/16 02:51 (Protonix) 40 mg Q12HR PO 12/01/16 21:00 12/27/16 08:25 (Renvela) 1,600 mg TIDAC PO 12/03/16 17:00 12/27/16 12:42 (KCl) 20 meq DAILY PO 12/04/16 09:00 12/27/16 08:25 (Robitussin Ac 200-20 Mg/10 ml Liq) 10 ml Q6H PRN PO 12/15/16 14:00 12/21/16 21:01 (Epogen Inj) 10,000 units UNSCH PRN IV 12/17/16 09:30 12/22/16 13:21 (Epogen Inj) 4,000 units UNSCH PRN IV 12/17/16 09:45 12/22/16 13:21 (Hemorrhoidal Hc Supp) 25 mg BID RECTAL 12/18/16 21:00 (Cepacol Extra Elenita (Sugar Free)) 1 lozenge Q2HR PRN BUCCAL 12/23/16 09:00 ([place] 5-325 Mg) 1 tab Q4H PRN PO 12/25/16 09:15 12/26/16 13:13 Cefazolin Sodium 500 mg/Sodium Chloride 505 ml @ 0 mls/hr [employer] IRR[employer]ATION 12/26/16 14:00 01/02/17 13:59 Cefazolin Sodium/ Dextrose 50 ml @ 150 mls/hr [employer]OR IV 12/26/16 13:45 01/02/17 13:44 (Hibiclens 4% Top Soln) 1 applic [employer] DRILLING [employer]OR TOPICAL 12/26/16 13:45 01/02/17 13:44 Urinary Catheter: No A/P Problem List: (1) Sepsis ICD Code: A41.9 - Sepsis, unspecified organism Status: Acute (2) Acute renal failure ICD Code: N17.9 - Acute kidney failure, unspecified Status: Acute (3) Pneumonia ICD Code: J18.9 - Pneumonia, unspecified organism Status: Acute (4) Coronary artery disease ICD Code: I25.10 - Coronary artery disease Status: Acute (5) Anemia ICD Code: D64.9 - Anemia Status: Acute (6) Hematochezia ICD Code: K92.1 - Melena Status: Acute (7) Hypokalemia ICD Code: E87.6 - Hypokalemia Status: Acute Assessment and Plan Mr. Fonseca is a 55-year-old male patient with a known medical history of CAD, CKD, COPD and history of CABG who presented to the ED with complaints of increasing dyspnea, generalized weakness, fevers and frequent diaphoresis x 2 weeks. Dense cavitary pneumonia of the right lung: Patient undergo partial right lobectomy on 12/30/16. ESRD: Dialysis 12/29/16. Chronic cough: Continues. Hemoptysis from lung biopsy resolved Anemia: Anemia evidencing mild improvement. Back pain: Lortab 5/325 q 6 hrs as needed pain 1-10. Add ice pack. Consider baclofen if renal function improves. Hypokalemia: 4.1 on . Resolved. Sepsis on admission suspect secondary to right multilobular pneumonia-resolved Dense cavitary pneumonia of the right lung - Pulmonary following. - Completed cefepime 1 g every 12 hours on 12/06/16 - Cardiothoracic Surgery and ID consulted. Patient will likely need bx. - Further tx based on biopsy results. -Negative Aspergillus titers/ ESRD - Per nephrology will need skilled nursing dialysis(MWF), - Patient underwent AV fistula surgery on 12/10/2016. However, patient may need AV graft. - US kidney/renal/bladder ordered and reviewed showing mild pelvocaliectasis right kidney. 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 Insurance arrangement may takes weeks. - Will change diet to regular. Hypokalemia -resolved. K+ 3.9 on 12/12/2016. Normochromic, normocytic anemia suspect secondary to acute blood loss/ hematochezia -Transfused total of 4 RBCs since admission, and transfuse for HgB<7.0, currently stable 8.6 on 12/09/2016. -Continue Protonix 40 mg twice a day ; appreciate input from GI -EGD/Colonoscopy on 12/18/2016 - No major findings, no bleeding source. - Hgb was 6.8 today, we will transfuse 1 unit of PRBCs. -Hgn 7.0 on 12/24, repeat H&H. Transfuse is 7.0 or less. Am labs. Chronic obstructive pulmonary disease respiratory failure Probable multi-organism pneumonia - Continue scheduled and PRN duonebs. - Benzoate PRN for cough. - Supplemental O2 to keep sats >88%. - pulmonary medicine following: solumedrol 20 mg BID x 2 days (12/07-12/09), CXR for 12/08 ordered and pending -S/P bronchoscopy 12/05/16 - cytology pathology report shows no malignancy. - CT chest on 12/17/2016, images reviewed by me shows diffuse dense consolidations. Radiologist also raise the possibly due to fungal ball. - Cardiothoracic surgery evaluated patient, recommended CT guided biopsy scheduled for 12/23/2016. -Results pending. -Negative for Aspergillus. - Chronic cough - Continue Robitussin before meals. Full code. DVT Prophylaxis: SCDs/TEDs., Ambulation. Case discussed with Pt, RN, and Dr. Xavier. Discharge Planning Discharge plan : Patient cannot be discharged home without outpatient dialysis arrangements. Problem Qualifiers (1) Sepsis: (2) Acute renal failure: Qualified Codes: N17.8 - Other acute kidney failure (3) Pneumonia: Qualified Codes: J18.1 - Lobar pneumonia, unspecified organism (4) Coronary artery disease: Qualified Codes: I25.119 - Atherosclerotic heart disease of [place] coronary artery with unspecified angina pectoris (5) Anemia: Qualified Codes: N18.5 - Chronic kidney disease, stage 5; D63.1 - Anemia in chronic kidney disease Chavo Mcdaniel Jr. ESTEFANY Dec 27, 2016 13:28
[2016-12-27] MEDS: ACETAMINOPHEN/HYDROcodone 325 MG/5 MG TAB PO PRN ×2 (14:50→23:30)
--- NOTE | 2016-12-27 16:39 | HHI.NPPN ---
Subjective General Problems: Anemia Renal Failure: Acute Additional Remarks Patient is alert, no SOB, no nausea, eating well. Review of Systems General Constitutional: Fatigue Respiratory Lungs: Cough, Sputum Respiratory Remarks slightly hemoptysis Objective Data Data Vital Signs Date Time Temp Pulse Resp B/P (MAP) Pulse Ox O2 Delivery O2 Flow Rate FiO2 12/27/16 12:00 98.1 100 16 103/68 (80) 94 12/27/16 09:34 Room Air 12/27/16 09:10 92 21 12/27/16 08:00 98.1 99 16 96/74 (81) 95 12/27/16 04:00 98.3 95 18 118/78 (91) 98 12/27/16 00:00 Room Air 12/27/16 00:00 98.7 98 16 113/69 (84) 97 12/26/16 20:00 85 12/26/16 20:00 98.6 100 16 106/74 (85) 95 12/26/16 20:00 Room Air -: 12/27/16 0535 12/27/16 0535 Tubes & Lines: Perma-Cath Physical Exam General Appearance: No Acute Distress, Comfortable Eyes Eye Exam: Pupils Equal, Pupils Reactive Throat Throat Exam: Oral Mucosa [place] & Moist Neck Neck Exam: Neck Supple Pulmonary Resp Exam: Breath Sounds Equal, No Distress, Rhonchi, Decreased Bases Cardiology CV Exam: Regular, Normal Sinus Rhythm, Good Perfusion Gastrointestinal/Abdomen GI Exam: Soft, Non-Tender, Bowel Sounds Present Musculoskeletal MS Exam: Joints Intact, Normal Gait, Normal Tone, Good Strength Integumentary Skin Exam: Clear, Warm, Dry, Intact Extremeties Extremities Exam: Trace Edema Neurologic Neuro Exam: Alert, Awake, Oriented Psychiatric Psych Exam: Appropriate Responses Assessment/Plan Discussed Condition With: Patient Assessment Summary: SEJAL/Acute Renal Failure, Anemia of CKD Electrolyte Assessment: Hypocalcemia, Hypokalemia, Metabolic Acidosis Problem List: (1) Chronic kidney disease, stage 5 ICD Codes: N18.5 - Chronic kidney disease, stage 5 Plan: Patient likely has reached ESRD. Although he is non oliguric. Continue dialysis support MWF. He has appointment on 01/02 to discuss possible AVG placement; May need to see him inpatient if he is not discharged by then. replace electrolytes as needed Continue nutritional support with meals; on high protein diet The plan is for him to enter transitional HD program at [facility]. When he is approved he can be discharged, may take several weeks. Will keep in touch with case management regarding insurance; now he is being applied for medicare. HD to continue MWF. (2) Hypokalemia ICD Codes: E87.6 - Hypokalemia Status: Acute Plan: He may have a proximal tubule disorder Follow labs, he requires daily replacement in addition to high K bath with HD 24 hour urine for potassium shows he has renal wasting (3) GI bleed ICD Codes: K92.2 - Gastrointestinal hemorrhage, unspecified Status: Acute Plan: GI has signed off; s/p EGD/colonoscopy may need capsule endoscopy outpatient (4) Hypocalcemia ICD Codes: E83.51 - Hypocalcemia Plan: Continue to reat hyperphosphatemia, on Sevelamer with meals. PTH around 130, less than the range desired for stage V CKD, Calcitriol was stopped (5) Pneumonia ICD Codes: J18.9 - Pneumonia, unspecified organism Status: Acute Plan: Pulmonary following, s/p bronchoscopy. CT chest taken No malignancies identified. On prednisone, and Robitussin Biopsy negative for pulmonary aspergillus fungal ball in right lung Continue supportive care (6) Anemia ICD Codes: D64.9 - Anemia Status: Acute Plan: Transfuse as needed, Most recent 12/24 Continue high dose of Epogen with dialysis. (7) Acidosis ICD Codes: E87.2 - Acidosis Status: Acute Plan: corrected, monitor Problem Qualifiers (1) GI bleed: (2) Pneumonia: Qualified Codes: J18.1 - Lobar pneumonia, unspecified organism (3) Anemia: Qualified Codes: N18.5 - Chronic kidney disease, stage 5; D63.1 - Anemia in chronic kidney disease Ely Coyne MD Dec 27, 2016 16:39
[2016-12-27] MEDS: TEMAZEPAM 15 MG CAP PO PRN (23:30)
[2016-12-28] VITALS (9 sets, daily range): BP systolic 103–142; BP diastolic 66–85; PULSE 88–103; RESP 20; TEMP 97.8–98.2; O2SAT 91–97
[2016-12-28] MEDS: HYDROCORTISONE ACETATE 25 MG SUPP RECTAL SCH ×3 (09:00→21:00)
[2016-12-28] MEDS: CHOLECALCIFEROL (VIT D3) 1000 UNIT TAB PO SCH (09:47)
[2016-12-28] MEDS: POTASSIUM CHLORIDE 20 MEQ CONTROLLED RELEASE TAB PO SCH (09:47)
[2016-12-28] MEDS: LACTOBACILLUS ACIDOPHILUS TAB PO SCH ×2 (09:47→21:19)
[2016-12-28] MEDS: PANTOPRAZOLE SOD 40 MG DELAYED RELEASE TAB PO SCH ×2 (09:47→21:19)
[2016-12-28] MEDS: SEVELAMER CARBONATE 800 MG TAB PO SCH ×3 (09:48→17:00)
--- NOTE | 2016-12-28 13:38 | HHI.NPPN ---
Subjective General Problems: Anemia Renal Failure: Acute Additional Remarks Patient is alert, no SOB, no nausea, feeling well. Review of Systems General Constitutional: Fatigue Respiratory Lungs: Cough, Sputum Respiratory Remarks slightly hemoptysis Objective Data Data 12/28/16 12/29/16 19:00 07:00 Output Total 800 ml Balance -800 ml Output Urine Total 800 ml Vital Signs Date Time Temp Pulse Resp B/P (MAP) Pulse Ox O2 Delivery O2 Flow Rate FiO2 12/28/16 11:37 88 12/28/16 08:00 98.2 91 20 113/68 (83) 91 12/28/16 07:52 92 21 12/28/16 04:00 98.2 90 20 103/66 (78) 97 12/28/16 00:00 Nasal Cannula 2.00 12/28/16 00:00 98.2 95 20 120/84 (96) 95 12/27/16 20:00 Room Air 12/27/16 20:00 98.0 91 20 134/76 (95) 98 12/27/16 20:00 90 12/27/16 16:00 98.4 95 16 103/63 (76) 93 -: 12/27/16 0535 12/27/16 0535 Tubes & Lines: Perma-Cath Physical Exam General Appearance: No Acute Distress, Comfortable Eyes Eye Exam: Pupils Equal, Pupils Reactive Throat Throat Exam: Oral Mucosa [place] & Moist Neck Neck Exam: Neck Supple Pulmonary Resp Exam: Breath Sounds Equal, No Distress, Rhonchi, Decreased Bases Cardiology CV Exam: Regular, Normal Sinus Rhythm, Good Perfusion Gastrointestinal/Abdomen GI Exam: Soft, Non-Tender, Bowel Sounds Present Musculoskeletal MS Exam: Joints Intact, Normal Gait, Normal Tone, Good Strength Integumentary Skin Exam: Clear, Warm, Dry, Intact Extremeties Extremities Exam: Trace Edema Neurologic Neuro Exam: Alert, Awake, Oriented Psychiatric Psych Exam: Appropriate Responses Assessment/Plan Discussed Condition With: Patient Assessment Summary: SEJAL/Acute Renal Failure, Anemia of CKD Electrolyte Assessment: Hypocalcemia, Hypokalemia, Metabolic Acidosis Problem List: (1) Chronic kidney disease, stage 5 ICD Codes: N18.5 - Chronic kidney disease, stage 5 Plan: Patient likely has reached ESRD. Although he is non oliguric. Continue dialysis support MWF. He has appointment on 01/02 to discuss possible AVG placement; May need to see him inpatient if he is not discharged by then. replace electrolytes as needed Continue nutritional support with meals; on high protein diet The plan is for him to enter transitional HD program at [facility]. When he is approved he can be discharged, may take several weeks. Will keep in touch with case management regarding insurance; now he is being applied for medicare. HD to continue MWF. HD will be in AM, Dr. Zuluaga will follow from AM. (2) Hypokalemia ICD Codes: E87.6 - Hypokalemia Status: Acute Plan: He may have a proximal tubule disorder Follow labs, he requires daily replacement in addition to high K bath with HD 24 hour urine for potassium shows he has renal wasting (3) GI bleed ICD Codes: K92.2 - Gastrointestinal hemorrhage, unspecified Status: Acute Plan: GI has signed off; s/p EGD/colonoscopy may need capsule endoscopy outpatient (4) Hypocalcemia ICD Codes: E83.51 - Hypocalcemia Plan: Continue to reat hyperphosphatemia, on Sevelamer with meals. PTH around 130, less than the range desired for stage V CKD, Calcitriol was stopped (5) Pneumonia ICD Codes: J18.9 - Pneumonia, unspecified organism Status: Acute Plan: Pulmonary following, s/p bronchoscopy. CT chest taken No malignancies identified. On prednisone, and Robitussin Biopsy negative for pulmonary aspergillus fungal ball in right lung Continue supportive care (6) Anemia ICD Codes: D64.9 - Anemia Status: Acute Plan: Transfuse as needed, Most recent 12/24 Continue high dose of Epogen with dialysis. (7) Acidosis ICD Codes: E87.2 - Acidosis Status: Acute Plan: corrected, monitor Problem Qualifiers (1) GI bleed: (2) Pneumonia: Qualified Codes: J18.1 - Lobar pneumonia, unspecified organism (3) Anemia: Qualified Codes: N18.5 - Chronic kidney disease, stage 5; D63.1 - Anemia in chronic kidney disease Ely Coyne MD Dec 28, 2016 13:37
--- NOTE | 2016-12-28 15:22 | HHI.PR ---
Subjective Remarks Follow up for ESRD, Anemia, COPD. Patient reported taking one Biddle last evening for back pain; medication reported to be helpful. Patient reported having less"coughing spells" as compared to yesterday. Patient noted that when he is hydrated has a much more productive cough. As he becomes "dryer" his cough becomes dryer and more painful. Hemoptysis was denied today. Patient stated "my nipples are swollen and hurt". No acute concerns reported except as noted above. Pt denied fever, chills, cough, nausea, vomiting, diarrhea, dysuria, abdominal/ chest pain and shortness of breath. Per RN (Kim) no acute issues noted overnight or since start of shift. Objective Vitals Vital Signs Date Time Temp Pulse Resp B/P (MAP) Pulse Ox O2 Delivery O2 Flow Rate FiO2 12/28/16 11:37 88 12/28/16 08:00 98.2 91 20 113/68 (83) 91 12/28/16 07:52 92 21 12/28/16 04:00 98.2 90 20 103/66 (78) 97 12/28/16 00:00 Nasal Cannula 2.00 12/28/16 00:00 98.2 95 20 120/84 (96) 95 12/27/16 20:00 Room Air 12/27/16 20:00 98.0 91 20 134/76 (95) 98 12/27/16 20:00 90 12/27/16 16:00 98.4 95 16 103/63 (76) 93 I/O 12/27/16 12/27/16 12/27/16 12/28/16 12/28/16 12/28/16 07:00 15:00 23:00 07:00 15:00 23:00 Intake Total 480 ml 720 ml 3400 ml Output Total 250 ml 500 ml 800 ml Balance 480 ml 470 ml 2900 ml -800 ml Intake Oral 480 ml 720 ml 3400 ml Output Urine Total 250 ml 500 ml 800 ml # Voids 2 3 # Bowel Movements 1 1 0 Result Diagram: 12/27/16 0535 12/27/16 0535 Imaging Last Impressions Chest X-Ray 12/26/16 0600 Signed Impressions: Service Date/Time: Monday, December 26, 2016 06:47 - CONCLUSION: Unchanged cavitary consolidation right upper lobe. Broderick Ndiaye MD Lung Biopsy CT 12/23/16 0000 Signed Impressions: Service Date/Time: Friday, December 23, 2016 09:37 - CONCLUSION: Uncomplicated CT guided biopsy/aspiration. Broderick Ndiaye MD Chest CT 12/17/16 1715 Signed Impressions: Service Date/Time: Saturday, December 17, 2016 17:51 - CONCLUSION: 1. Dense consolidation persists in the right upper lobe with air bronchograms and air filled cystic spaces. Debris versus possible fungus ball in one of the cystic spaces at the apex which is new. Multi-organism pneumonia suspected. 2. Non-consolidative patchy infiltrate of the right middle and lower lobes not significantly changed. 3. Decreased pleural effusion on the right, now trace. Completely resolved pleural effusion on the left. 4. Previous median sternotomy. Caio Wray MD Upper Extremity Ultrasound 12/04/16 0000 Signed Impressions: Service Date/Time: November 18:26 - CONCLUSION: Venous mapping as delineated above. The cephalic veins are abnormal bilaterally. Caio Villalpando MD Renal Biopsy CT 12/02/16 1350 Signed Impressions: Service Date/Time: Friday, December 02, 2016 08:33 - CONCLUSION: Uncomplicated CT guided biopsy of the right kidney for function. Mustapha Vela Jr., MD Catheter Placement X-Ray 11/28/16 0000 Signed Impressions: Service Date/Time: Monday, November 28, 2016 15:57 - CONCLUSION: Uncomplicated PermaCath placement as above. Mustapha Vela Jr., MD Renal Ultrasound 11/22/16 0000 Signed Impressions: Service Date/Time: Tuesday, November 22, 2016 17:14 - CONCLUSION: Mild pelvocaliectasis right kidney not present previously. Obdulia Garcia MD Objective Remarks GENERAL: Pt encountered laying a bed, smiling. NAD. SKIN: Warm and dry. Port noted in upper right chest. Nipples noted to be erect without swelling/edema or erythema. HEAD: Normocephalic. EYES: No scleral icterus. No injection or drainage. NECK: Supple, trachea midline. No lymphadenopathy. CARDIOVASCULAR: Regular rate and rhythm without murmurs, gallops, or rubs. RESPIRATORY: Diminished breath sounds noted on right. No accessory muscle use. GASTROINTESTINAL: Abdomen soft, non-tender, nondistended. MUSCULOSKELETAL: No cyanosis, or edema. PSYCHIATRIC: Mood and affect normal, insight and judgment appropriate. Pt was pleasant and cooperative. Procedures 11/28/2016 Right Internal Jugular Hemodialysis Catheter Tunneled Placement dual lumen 12/02/2016 Successful right renal biopsy for function. Gelfoam and thrombin utilized. No bleeding on post CT Lung Biopsy 12/23/16. Dialysis 12/24/16. Medications and IVs Current Medications Medications (Trade) Dose Ordered Sig/Edwin Route Start Time Stop Time Status Last Admin (NS Flush) 2 ml UNSCH PRN IVF 11/22/16 15:00 12/24/16 20:55 (Milk Of Magnesia Liq) 30 ml Q12H PRN PO 11/22/16 18:00 (Tylenol) 650 mg Q4H PRN PO 11/24/16 13:15 12/11/16 00:37 (Zofran Inj) 4 mg Q6H PRN IV 11/24/16 13:15 (Mag-Al Plus Susp Liq) 30 ml Q6H PRN PO 11/24/16 13:15 (Restoril) 15 mg HS PRN PO 11/24/16 13:15 12/27/16 23:30 (Vitamin D3) 2,000 units DAILY PO 11/25/16 09:15 12/28/16 09:47 (Lactinex) 1 tab Q12HR PO 11/26/16 21:00 12/28/16 09:47 (Hemorrhoidal Hc Supp) 25 mg DAILY RECTAL 11/27/16 09:00 12/28/16 09:47 Sodium Chloride 1,000 ml @ 0 mls/hr Q0M PRN OTHER 11/28/16 15:28 12/26/16 11:40 (Heparin Inj) 8,000 units UNSCH PRN IVF 11/28/16 15:30 Future Hold Sodium Chloride 1,000 ml @ 200 mls/hr Q5H PRN IV 11/28/16 15:28 Sodium Chloride 1,000 ml @ 0 mls/hr Q0M PRN OTHER 11/28/16 15:28 11/30/16 12:02 (Mannitol Inj) 12.5 gm UNSCH PRN IV 11/28/16 15:30 (Albumin 25% Inj) 25 gm UNSCH PRN IV 11/28/16 15:30 12/24/16 08:52 (NS Flush) 5 ml UNSCH PRN IV FLUSH 11/28/16 15:30 12/20/16 09:01 (Heparin Inj) UNSCH PRN .XX 11/28/16 15:30 12/26/16 11:40 (Gentamicin (Dialysis) Inj) 20 mg UNSCH PRN IV 11/28/16 15:30 12/26/16 11:40 (Zofran Inj) 4 mg UNSCH PRN IV 11/28/16 15:30 (Tylenol) 650 mg UNSCH PRN PO 11/28/16 15:30 12/19/16 13:06 (Benadryl) 25 mg UNSCH PRN PO 11/28/16 15:30 12/19/16 13:06 (Nitrostat Sl) 0.4 mg UNSCH PRN SL 11/28/16 15:30 (Catapres) 0.1 mg UNSCH PRN PO 11/28/16 15:30 (Gelfoam 12 Mm/7 Mm Top) 1 foam UNSCH PRN TOP 11/28/16 15:30 (NS Flush) UNSCH PRN IVF 11/28/16 18:15 (Heparin Inj) UNSCH PRN IV FLUSH 11/28/16 18:15 Future Hold (Duoneb Neb) 1 ampule Q4HR NEB PRN NEB 11/29/16 12:30 12/25/16 21:03 (Benadryl) 25 mg Q8H PRN PO 11/30/16 10:00 12/15/16 02:51 (Protonix) 40 mg Q12HR PO 12/01/16 21:00 12/28/16 09:47 (Renvela) 1,600 mg TIDAC PO 12/03/16 17:00 12/28/16 12:17 (KCl) 20 meq DAILY PO 12/04/16 09:00 12/28/16 09:47 (Robitussin Ac 200-20 Mg/10 ml Liq) 10 ml Q6H PRN PO 12/15/16 14:00 12/21/16 21:01 (Epogen Inj) 10,000 units UNSCH PRN IV 12/17/16 09:30 12/22/16 13:21 (Epogen Inj) 4,000 units UNSCH PRN IV 12/17/16 09:45 12/22/16 13:21 (Hemorrhoidal Hc Supp) 25 mg BID RECTAL 12/18/16 21:00 (Cepacol Extra Elenita (Sugar Free)) 1 lozenge Q2HR PRN BUCCAL 12/23/16 09:00 (Biddle 5-325 Mg) 1 tab Q4H PRN PO 12/25/16 09:15 12/27/16 23:30 Cefazolin Sodium 500 mg/Sodium Chloride 505 ml @ 0 mls/hr BRANCH RENTAL MANAGER IRRIGATION 12/26/16 14:00 01/02/17 13:59 Cefazolin Sodium/ Dextrose 50 ml @ 150 mls/hr BRANCH RENTAL MANAGER IV 12/26/16 13:45 01/02/17 13:44 (Hibiclens 4% Top Soln) 1 applic BRANCH RENTAL MANAGER TOPICAL 12/26/16 13:45 01/02/17 13:44 Urinary Catheter: No A/P Problem List: (1) Sepsis ICD Code: A41.9 - Sepsis, unspecified organism Status: Acute (2) Acute renal failure ICD Code: N17.9 - Acute kidney failure, unspecified Status: Acute (3) Pneumonia ICD Code: J18.9 - Pneumonia, unspecified organism Status: Acute (4) Coronary artery disease ICD Code: I25.10 - Coronary artery disease Status: Acute (5) Anemia ICD Code: D64.9 - Anemia Status: Acute (6) Hematochezia ICD Code: K92.1 - Melena Status: Acute (7) Hypokalemia ICD Code: E87.6 - Hypokalemia Status: Acute Assessment and Plan Mr. Fonseca is a 55-year-old male patient with a known medical history of CAD, CKD, COPD and history of CABG who presented to the ED with complaints of increasing dyspnea, generalized weakness, fevers and frequent diaphoresis x 2 weeks. Dense cavitary pneumonia of the right lung: Patient undergo partial right lobectomy on 12/30/16. Labs ordered for a.m. Patient to be nothing by mouth after midnight Thursday. ESRD: Dialysis 12/29/16. Chronic cough: Continues; lessened today. Hemoptysis from lung biopsy resolved Anemia: Anemia evidencing mild improvement. Back pain: Lortab 5/325 q 6 hrs as needed pain 1- 10. Add ice pack. Sepsis on admission suspect secondary to right multilobular pneumonia-resolved Dense cavitary pneumonia of the right lung - Pulmonary following. - Completed cefepime 1 g every 12 hours on 12/06/16 - Cardiothoracic Surgery and ID consulted. Patient will likely need bx. - Further tx based on biopsy results. -Negative Aspergillus titers/ ESRD - Per nephrology will need technician terminal and repeater dialysis(MWF), - Patient underwent AV fistula surgery on 12/10/2016. However, patient may need AV graft. - US kidney/renal/bladder ordered and reviewed showing mild pelvocaliectasis right kidney. 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 Insurance arrangement may takes weeks. - Will change diet to regular. Hypokalemia -resolved. K+ 3.9 on 12/12/2016. Normochromic, normocytic anemia suspect secondary to acute blood loss/ hematochezia -Transfused total of 4 RBCs since admission, and transfuse for HgB<7.0, currently stable 8.6 on 12/09/2016. -Continue Protonix 40 mg twice a day ; appreciate input from GI -EGD/Colonoscopy on 12/18/2016 - No major findings, no bleeding source. - Hgb was 6.8 today, we will transfuse 1 unit of PRBCs. -Hgb 7.0 on 12/24, repeat H&H. Transfuse is 7.0 or less. Am labs. Chronic obstructive pulmonary disease respiratory failure Probable multi-organism pneumonia - Continue scheduled and PRN duonebs. - Benzoate PRN for cough. - Supplemental O2 to keep sats >88%. - pulmonary medicine following: solumedrol 20 mg BID x 2 days (12/07-12/09), CXR for 12/08 ordered and pending -S/P bronchoscopy 12/05/16 - cytology pathology report shows no malignancy. - CT chest on 12/17/2016, images reviewed by me shows diffuse dense consolidations. Radiologist also raise the possibly due to fungal ball. - Cardiothoracic surgery evaluated patient, recommended CT guided biopsy scheduled for 12/23/2016. -Results pending. -Negative for Aspergillus. - Chronic cough - Continue Robitussin before meals. Full code. DVT Prophylaxis: SCDs/TEDs., Ambulation. Case discussed with Pt, RN, and Dr. Xavier. Discharge Planning Discharge plan : Patient cannot be discharged home without outpatient dialysis arrangements. Problem Qualifiers (1) Sepsis: (2) Acute renal failure: Qualified Codes: N17.8 - Other acute kidney failure (3) Pneumonia: Qualified Codes: J18.1 - Lobar pneumonia, unspecified organism (4) Coronary artery disease: Qualified Codes: I25.119 - Atherosclerotic heart disease of [place] coronary artery with unspecified angina pectoris (5) Anemia: Qualified Codes: N18.5 - Chronic kidney disease, stage 5; D63.1 - Anemia in chronic kidney disease Chavo Mcdaniel Jr. Dec 28, 2016 15:22
[2016-12-28] MEDS: ACETAMINOPHEN/HYDROcodone 325 MG/5 MG TAB PO PRN (21:19)
[2016-12-28 21:48] LABS: TRANSFERRIN IRON PROFILE 129 MG/DL (200-360)
[2016-12-28] MEDS: TEMAZEPAM 15 MG CAP PO PRN (23:30)
[2016-12-29] VITALS (7 sets, daily range): BP systolic 110–139; BP diastolic 65–86; PULSE 94–104; RESP 20–21; TEMP 97.7–98.1; O2SAT 94–98
[2016-12-29] MEDS: ACETAMINOPHEN/HYDROcodone 325 MG/5 MG TAB PO PRN ×3 (06:28→23:33)
[2016-12-29 07:26] LABS: AUTOMATED NEUTROPHIL # 4.2 TH/MM3 (1.8-7.7); BASOPHIL # 0.1 TH/MM3 (0-0.2); BASOPHIL % 0.8 % (0.0-2.0); EOSINOPHIL # 0.5 TH/MM3 (0-0.4); EOSINOPHIL % 6.3 % (0.0-4.0); HEMATOCRIT 24.4 % (39.0-51.0); HEMO FLAGS DIFF FINAL; LYMPH % 25.6 % (9.0-44.0); LYMPHOCYTE # 1.8 TH/MM3 (1.0-4.8); MEAN CELL VOLUME 93.2 FL (80.0-100.0); MEAN CORPUSCULAR HEMOGLOBIN 30.8 PG (27.0-34.0); MONO % 8.4 % (0.0-8.0); NEUT % 58.9 % (16.0-70.0); PLATELET COUNT 191 TH/MM3 (150-450); RED BLOOD COUNT 2.62 MIL/MM3 (4.50-5.90); RED CELL DISTRIBUTION WIDTH 16.4 % (11.6-17.2); WHITE BLOOD COUNT 7.2 TH/MM3 (4.0-11.0)
[2016-12-29 07:54] LABS: ALKALINE PHOSPHATASE 65 U/L (45-117); ALT (GPT) 12 U/L (12-78); ANION GAP 8 MEQ/L (5-15); AST (GOT) 8 U/L (15-37); BICARBONATE 28.2 MEQ/L (21.0-32.0); BLOOD UREA NITROGEN 63 MG/DL (7-18); CHLORIDE 103 MEQ/L (98-107); GLOMERULAR FILTRATION RATE 8 ML/MIN (>89); POTASSIUM 4.5 MEQ/L (3.5-5.1); SODIUM (NA) 139 MEQ/L (136-145); TOTAL BILIRUBIN ADULT 0.3 MG/DL (0.2-1.0)
[2016-12-29] MEDS: HYDROCORTISONE ACETATE 25 MG SUPP RECTAL SCH ×3 (09:00→20:30)
[2016-12-29] MEDS: POTASSIUM CHLORIDE 20 MEQ CONTROLLED RELEASE TAB PO SCH (10:20)
[2016-12-29] MEDS: SEVELAMER CARBONATE 800 MG TAB PO SCH ×3 (10:20→17:44)
[2016-12-29] MEDS: CHOLECALCIFEROL (VIT D3) 1000 UNIT TAB PO SCH (10:20)
[2016-12-29] MEDS: LACTOBACILLUS ACIDOPHILUS TAB PO SCH ×2 (10:20→20:35)
[2016-12-29] MEDS: PANTOPRAZOLE SOD 40 MG DELAYED RELEASE TAB PO SCH ×2 (10:20→20:30)
--- NOTE | 2016-12-29 10:25 | HHI.NPPN ---
Subjective General Problems: Anemia Renal Failure: Acute Interval History No acute overnight events. To have thoracotomy with pulmonary resection tomorrow AM. (Milla Pack) Review of Systems General Constitutional: Fatigue (Milla Pack) Respiratory Lungs: Cough, Sputum Respiratory Remarks slightly hemoptysis (Milla Pack) Objective Data Data Vital Signs Date Time Temp Pulse Resp B/P (MAP) Pulse Ox O2 Delivery O2 Flow Rate FiO2 12/29/16 08:00 97.7 94 20 129/86 (100) 94 12/29/16 04:58 Room Air 12/29/16 04:00 98.1 97 20 121/65 (83) 94 12/29/16 00:20 Room Air 12/29/16 00:00 97.8 95 20 139/86 (103) 96 12/28/16 21:58 97 Nasal Cannula 2.00 12/28/16 20:00 97.8 98 20 132/85 (101) 94 12/28/16 20:00 102 12/28/16 20:00 Room Air 12/28/16 16:00 98.1 103 20 142/84 (103) 92 12/28/16 12:00 98.0 97 20 118/76 (90) 91 12/28/16 11:37 88 (Milla Pack) -: 12/29/16 0607 12/29/16 0607 Imaging Last Impressions Chest X-Ray 12/26/16 0600 Signed Impressions: Service Date/Time: Monday, December 26, 2016 06:47 - CONCLUSION: Unchanged cavitary consolidation right upper lobe. Broderick Ndiaey MD Lung Biopsy CT 12/23/16 0000 Signed Impressions: Service Date/Time: Friday, December 23, 2016 09:37 - CONCLUSION: Uncomplicated CT guided biopsy/aspiration. Broderick Ndiaye MD Chest CT 12/17/16 1715 Signed Impressions: Service Date/Time: Saturday, December 17, 2016 17:51 - CONCLUSION: 1. Dense consolidation persists in the right upper lobe with air bronchograms and air filled cystic spaces. Debris versus possible fungus ball in one of the cystic spaces at the apex which is new. Multi-organism pneumonia suspected. 2. Non-consolidative patchy infiltrate of the right middle and lower lobes not significantly changed. 3. Decreased pleural effusion on the right, now trace. Completely resolved pleural effusion on the left. 4. Previous median sternotomy. Caio Wray MD Upper Extremity Ultrasound 12/04/16 0000 Signed Impressions: Service Date/Time: November 18:26 - CONCLUSION: Venous mapping as delineated above. The cephalic veins are abnormal bilaterally. Caio Villalpando MD Renal Biopsy CT 12/02/16 1350 Signed Impressions: Service Date/Time: Friday, December 02, 2016 08:33 - CONCLUSION: Uncomplicated CT guided biopsy of the right kidney for function. Mustapha Vela Jr., MD Catheter Placement X-Ray 11/28/16 0000 Signed Impressions: Service Date/Time: Monday, November 28, 2016 15:57 - CONCLUSION: Uncomplicated PermaCath placement as above. Mustapha Vela Jr., MD Renal Ultrasound 11/22/16 0000 Signed Impressions: Service Date/Time: Tuesday, November 22, 2016 17:14 - CONCLUSION: Mild pelvocaliectasis right kidney not present previously. Obdulia Garcia MD Tubes & Lines: Perma-Cath (SirenaMilla B. INWARD TOLL OPERATOR) Physical Exam General Appearance: No Acute Distress, Comfortable (SirenaMilla B. INWARD TOLL OPERATOR) Eyes Eye Exam: Pupils Equal, Pupils Reactive (Sirena,Milla B. INWARD TOLL OPERATOR) Throat Throat Exam: Oral Mucosa [place] & Moist (Sirena,Milla B. INWARD TOLL OPERATOR) Neck Neck Exam: Neck Supple (Sirena,Milla B. INWARD TOLL OPERATOR) Pulmonary Resp Exam: Breath Sounds Equal, No Distress, Rhonchi, Decreased Bases Resp Remarks crackles mostly on right upper lung field (Sirena,Milla B. INWARD TOLL OPERATOR) Cardiology CV Exam: Regular, Normal Sinus Rhythm, Good Perfusion (Sirena,Milla B. INWARD TOLL OPERATOR) Gastrointestinal/Abdomen GI Exam: Soft, Non-Tender, Bowel Sounds Present, Positive Bowel Movement (Sirena,Milla B. INWARD TOLL OPERATOR) Musculoskeletal MS Exam: Joints Intact, Normal Gait, Normal Tone, Good Strength (Sirena,Milla B. INWARD TOLL OPERATOR) Integumentary Skin Exam: Clear, Warm, Dry, Intact (Sirena,Milla B. INWARD TOLL OPERATOR) Extremeties Extremities Exam: No Edema, Pedal Pulses Palpable (Milla Pack) Neurologic Neuro Exam: Alert, Awake, Oriented, Speech Clear, Moving All Extremities (Milla Pack) Psychiatric Psych Exam: Appropriate Responses (Milla Pack) Assessment/Plan Discussed Condition With: Patient Assessment Summary: SEJAL/Acute Renal Failure, Anemia of CKD Electrolyte Assessment: Hypocalcemia, Hypokalemia, Metabolic Acidosis Problem List: (1) Chronic kidney disease, stage 5 ICD Codes: N18.5 - Chronic kidney disease, stage 5 Plan: Patient likely has reached ESRD. s/p renal biopsy this admission. Of note he is non oliguric. Continue dialysis support MWF. He is due today. He has appointment on 01/02 to discuss possible AVG placement; May need to see him inpatient if he is not discharged by then. replace electrolytes as needed Continue nutritional support with meals; on high protein diet The plan is for him to enter transitional HD program at [place]. When he is approved he can be discharged, may take several weeks. Will keep in touch with case management regarding insurance; now he is being applied for medicare. (2) Hypokalemia ICD Codes: E87.6 - Hypokalemia Status: Acute Plan: He may have a proximal tubule disorder Follow labs, he requires daily replacement in addition to high K bath with HD 24 hour urine for potassium shows he has renal wasting (3) GI bleed ICD Codes: K92.2 - Gastrointestinal hemorrhage, unspecified Status: Acute Plan: GI has signed off; s/p EGD/colonoscopy may need capsule endoscopy outpatient (4) Pneumonia ICD Codes: J18.9 - Pneumonia, unspecified organism Status: Acute Plan: Pulmonary following, s/p bronchoscopy. CT chest and biopsy were taken No malignancies identified. Biopsy negative for pulmonary aspergillus fungal ball in right lung On prednisone, and Robitussin To have right thoracotomy tomorrow morning. Continue supportive care (5) Hypocalcemia ICD Codes: E83.51 - Hypocalcemia Plan: Continue to reat hyperphosphatemia, on Sevelamer with meals. (6) Anemia ICD Codes: D64.9 - Anemia Status: Acute Plan: Transfuse as needed, Most recent 12/24 Continue high dose of Epogen with dialysis. (7) Acidosis ICD Codes: E87.2 - Acidosis Status: Acute Plan: corrected, monitor (Milla Pack) Plan patient was seen and examined. Agree with above assessment and plan. Thoracotomy is planned. Stop potassium supplement. (Jim Zuluaga MD) Problem Qualifiers (1) GI bleed: (2) Pneumonia: Qualified Codes: J18.1 - Lobar pneumonia, unspecified organism (3) Anemia: Qualified Codes: N18.5 - Chronic kidney disease, stage 5; D63.1 - Anemia in chronic kidney disease Milla Pack Dec 29, 2016 10:24 Jim Zuluaga MD Dec 29, 2016 11:22
[2016-12-29] MEDS ORDERED: DOCUSATE SODIUM 50 MG/SENNA 8.6 MG TAB PO PRN (12:00)
[2016-12-29] MEDS: ASCORBIC ACID 500 MG TAB PO SCH ×2 (12:17→17:44)
[2016-12-29] MEDS: FERROUS SULFATE 325 MG (65 MG ELEMENTAL IRON) TAB PO SCH ×2 (12:17→17:44)
--- NOTE | 2016-12-29 13:19 | HHI.PR ---
Subjective Remarks Follow up for ESRD, Anemia, COPD. Patient reported again taking one Dell last evening for back pain. Pt stated he is to undergo partial lung resection tomorrow. Pt noted he was "anxious" as well as "expectant to get a sample of my lung so they can test it and find out what's going on with me." Occasional hemoptysis was today. Pt stated he had "bad coughing spell last night." Pt using cough drops and Robitussin to control his cough. Pt requested resumption of PRN stool softener. No acute concerns reported except as noted above. Pt denied fever, chills, cough, nausea, vomiting, diarrhea, dysuria, abdominal/ chest pain and shortness of breath. Per RN (Irwin) no acute issues noted overnight or since start of shift. Objective Vitals Vital Signs Date Time Temp Pulse Resp B/P (MAP) Pulse Ox O2 Delivery O2 Flow Rate FiO2 12/29/16 08:00 97.7 94 20 129/86 (100) 94 12/29/16 04:58 Room Air 12/29/16 04:00 98.1 97 20 121/65 (83) 94 12/29/16 00:20 Room Air 12/29/16 00:00 97.8 95 20 139/86 (103) 96 12/28/16 21:58 97 Nasal Cannula 2.00 12/28/16 20:00 97.8 98 20 132/85 (101) 94 12/28/16 20:00 102 12/28/16 20:00 Room Air 12/28/16 16:00 98.1 103 20 142/84 (103) 92 I/O 12/28/16 12/28/16 12/28/16 12/29/16 12/29/16 12/29/16 07:00 15:00 23:00 07:00 15:00 23:00 Intake Total 3400 ml 1320 ml 320 ml Output Total 500 ml 800 ml 550 ml 1000 ml Balance 2900 ml -800 ml 770 ml -680 ml Intake Oral 3400 ml 1320 ml 320 ml Output Urine Total 500 ml 800 ml 550 ml 1000 ml # Bowel Movements 0 0 Result Diagram: 12/29/1660612/29/16606 Objective Remarks GENERAL: Pt encountered laying a bed, smiling. NAD. SKIN: Warm and dry. Port noted in upper right chest. HEAD: Normocephalic. EYES: No scleral icterus. No injection or drainage. NECK: Supple, trachea midline. No lymphadenopathy. CARDIOVASCULAR: Regular rate and rhythm without murmurs, gallops, or rubs. RESPIRATORY: Diminished breath sounds noted on right. No accessory muscle use. GASTROINTESTINAL: Abdomen soft, non-tender, nondistended. MUSCULOSKELETAL: No cyanosis, or edema. PSYCHIATRIC: Mood and affect normal, insight and judgment appropriate. Pt was pleasant and cooperative. Procedures 11/28/2016 Right Internal Jugular Hemodialysis Catheter Tunneled Placement dual lumen 12/02/2016 Successful right renal biopsy for function. Gelfoam and thrombin utilized. No bleeding on post CT Lung Biopsy 12/23/16. Dialysis 12/24/16. Medications and IVs Current Medications Medications (Trade) Dose Ordered Sig/Edwin Route Start Time Stop Time Status Last Admin (NS Flush) 2 ml UNSCH PRN IVF 11/22/16 15:00 12/24/16 20:55 (Milk Of Magnesia Liq) 30 ml Q12H PRN PO 11/22/16 18:00 (Tylenol) 650 mg Q4H PRN PO 11/24/16 13:15 12/11/16 00:37 (Zofran Inj) 4 mg Q6H PRN IV 11/24/16 13:15 (Mag-Al Plus Susp Liq) 30 ml Q6H PRN PO 11/24/16 13:15 (Restoril) 15 mg HS PRN PO 11/24/16 13:15 12/28/16 23:30 (Vitamin D3) 2,000 units DAILY PO 11/25/16 09:15 12/29/16 10:20 (Lactinex) 1 tab Q12HR PO 11/26/16 21:00 12/29/16 10:20 (Hemorrhoidal Hc Supp) 25 mg DAILY RECTAL 11/27/16 09:00 12/28/16 09:47 Sodium Chloride 1,000 ml @ 0 mls/hr Q0M PRN OTHER 11/28/16 15:28 12/26/16 11:40 (Heparin Inj) 8,000 units UNSCH PRN IVF 11/28/16 15:30 Future Hold Sodium Chloride 1,000 ml @ 200 mls/hr Q5H PRN IV 11/28/16 15:28 Sodium Chloride 1,000 ml @ 0 mls/hr Q0M PRN OTHER 11/28/16 15:28 11/30/16 12:02 (Mannitol Inj) 12.5 gm UNSCH PRN IV 11/28/16 15:30 (Albumin 25% Inj) 25 gm UNSCH PRN IV 11/28/16 15:30 12/24/16 08:52 (NS Flush) 5 ml UNSCH PRN IV FLUSH 11/28/16 15:30 12/20/16 09:01 (Heparin Inj) UNSCH PRN .XX 11/28/16 15:30 12/26/16 11:40 (Gentamicin (Dialysis) Inj) 20 mg UNSCH PRN IV 11/28/16 15:30 12/26/16 11:40 (Zofran Inj) 4 mg UNSCH PRN IV 11/28/16 15:30 (Tylenol) 650 mg UNSCH PRN PO 11/28/16 15:30 12/19/16 13:06 (Benadryl) 25 mg UNSCH PRN PO 11/28/16 15:30 12/19/16 13:06 (Nitrostat Sl) 0.4 mg UNSCH PRN SL 11/28/16 15:30 (Catapres) 0.1 mg UNSCH PRN PO 11/28/16 15:30 (Gelfoam 12 Mm/7 Mm Top) 1 foam UNSCH PRN TOP 11/28/16 15:30 (NS Flush) UNSCH PRN IVF 11/28/16 18:15 (Heparin Inj) UNSCH PRN IV FLUSH 11/28/16 18:15 Future Hold (Duoneb Neb) 1 ampule Q4HR NEB PRN NEB 11/29/16 12:30 12/25/16 21:03 (Benadryl) 25 mg Q8H PRN PO 11/30/16 10:00 12/15/16 02:51 (Protonix) 40 mg Q12HR PO 12/01/16 21:00 12/29/16 10:20 (Renvela) 1,600 mg TIDAC PO 12/03/16 17:00 12/29/16 10:20 (Robitussin Ac 200-20 Mg/10 ml Liq) 10 ml Q6H PRN PO 12/15/16 14:00 12/21/16 21:01 (Epogen Inj) 10,000 units UNSCH PRN IV 12/17/16 09:30 12/22/16 13:21 (Epogen Inj) 4,000 units UNSCH PRN IV 12/17/16 09:45 12/22/16 13:21 (Hemorrhoidal Hc Supp) 25 mg BID RECTAL 12/18/16 21:00 (Cepacol Extra Elenita (Sugar Free)) 1 lozenge Q2HR PRN BUCCAL 12/23/16 09:00 (Dell 5-325 Mg) 1 tab Q4H PRN PO 12/25/16 09:15 12/29/16 06:28 Cefazolin Sodium 500 mg/Sodium Chloride 505 ml @ 0 mls/hr [employer] IRRIGATION 12/26/16 14:00 01/02/17 13:59 Cefazolin Sodium/ Dextrose 50 ml @ 150 mls/hr [employer]RIAL [employer]ATIONS OFFICER IV 12/26/16 13:45 01/02/17 13:44 (Hibiclens 4% Top Soln) 1 applic [employer]RIAL [employer]ATIONS OFFICER TOPICAL 12/26/16 13:45 01/02/17 13:44 (Ferrous Sulfate) 325 mg BID@12,17 PO 12/29/16 12:00 12/29/16 12:17 (Vitamin C) 500 mg BID@1200,1700 PO 12/29/16 12:00 12/29/16 12:17 (Tiara-Colace) 1 tab DAILY PRN PO 12/29/16 12:00 12/29/16 12:17 Urinary Catheter: No A/P Problem List: (1) Sepsis ICD Code: A41.9 - Sepsis, unspecified organism Status: Acute (2) Acute renal failure ICD Code: N17.9 - Acute kidney failure, unspecified Status: Acute (3) Pneumonia ICD Code: J18.9 - Pneumonia, unspecified organism Status: Acute (4) Coronary artery disease ICD Code: I25.10 - Coronary artery disease Status: Acute (5) Anemia ICD Code: D64.9 - Anemia Status: Acute (6) Hematochezia ICD Code: K92.1 - Melena Status: Acute (7) Hypokalemia ICD Code: E87.6 - Hypokalemia Status: Acute Assessment and Plan Mr. Fonseca is a 55-year-old male patient with a known medical history of CAD, CKD, COPD and history of CABG who presented to the ED with complaints of increasing dyspnea, generalized weakness, fevers and frequent diaphoresis x 2 weeks. Dense cavitary pneumonia of the right lung: Patient undergo partial right lobectomy on 12/30/16. Labs ordered for a.m. Patient to be nothing by mouth after midnight Thursday. ESRD: Dialysis afternoon of 12/29/16. Chronic cough: Continues; reported to have worsened overnight. Robitussin and cough drops ordered. Slight resumption of hemoptysis. Anemia: Iron deficit anemia noted. Initiated treatment of ferrous sulfate and vitamin c. Back pain: Lortab 5/325 q 6 hrs as needed pain 1-10. Sepsis on admission suspect secondary to right multilobular pneumonia-resolved Dense cavitary pneumonia of the right lung - Pulmonary following. - Completed cefepime 1 g every 12 hours on 12/06/16 - Cardiothoracic Surgery and ID consulted. Patient will likely need bx. - Further tx based on biopsy results. -Negative Aspergillus titers. ESRD - Per nephrology will need salvage determiner dialysis(MWF), - Patient underwent AV fistula surgery on 12/10/2016. However, patient may need AV graft. - US kidney/renal/bladder ordered and reviewed showing mild pelvocaliectasis right kidney. 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 Insurance arrangement may takes weeks. - Will change diet to regular. Hypokalemia -resolved. K+ 3.9 on 12/12/2016. Normochromic, normocytic anemia suspect secondary to acute blood loss/ hematochezia -Transfused total of 4 RBCs since admission, and transfuse for HgB<7.0, currently stable 8.6 on 12/09/2016. -Continue Protonix 40 mg twice a day ; appreciate input from GI -EGD/Colonoscopy on 12/18/2016 - No major findings, no bleeding source. - Hgb was 6.8 today, we will transfuse 1 unit of PRBCs. -Hgb 7.0 on 12/24, repeat H&H. Transfuse is 7.0 or less. Am labs. Chronic obstructive pulmonary disease respiratory failure Probable multi-organism pneumonia - Continue scheduled and PRN duonebs. - Benzoate PRN for cough. - Supplemental O2 to keep sats >88%. - pulmonary medicine following: solumedrol 20 mg BID x 2 days (12/07-12/09), CXR for 12/08 ordered and pending -S/P bronchoscopy 12/05/16 - cytology pathology report shows no malignancy. - CT chest on 12/17/2016, images reviewed by me shows diffuse dense consolidations. Radiologist also raise the possibly due to fungal ball. - Cardiothoracic surgery evaluated patient, recommended CT guided biopsy scheduled for 12/23/2016. -Results pending. -Negative for Aspergillus. - Chronic cough - Continue Robitussin before meals. Full code. DVT Prophylaxis: SCDs/TEDs., Ambulation. Case discussed with Pt, RN, and Dr. Xavier. Discharge Planning Discharge plan : Patient cannot be discharged home without outpatient dialysis arrangements. Problem Qualifiers (1) Sepsis: (2) Acute renal failure: Qualified Codes: N17.8 - Other acute kidney failure (3) Pneumonia: Qualified Codes: J18.1 - Lobar pneumonia, unspecified organism (4) Coronary artery disease: Qualified Codes: I25.119 - Atherosclerotic heart disease of [place] coronary artery with unspecified angina pectoris (5) Anemia: Qualified Codes: N18.5 - Chronic kidney disease, stage 5; D63.1 - Anemia in chronic kidney disease Chavo Mcdaniel Jr. Dec 29, 2016 13:19
--- NOTE | 2016-12-29 13:21 | PD.CAR.PN ---
CVT Progress Note Subjective/Hospital Course: ct guided lung bx / no fungal elements Dr Claire Lott requesting re-eval for possible thoractomy discussed with pt right thoracotomy for pulmonary resection Dr Roth will discuss further with pt on Thursday tentatively scheduled for case 12/29 Dr Roth discussed surgery / risks / procedure with pt / he ia agreeable to proceed for surgery in am Objective: GENERAL: on room air SKIN: Warm and dry. HEAD: Normocephalic. EYES: No scleral icterus. No injection or drainage. NECK: Supple, trachea midline. No JVD or lymphadenopathy. CARDIOVASCULAR: Regular rate and rhythm without murmurs, gallops, or rubs. RESPIRATORY: Breath sounds equal bilaterally. No accessory muscle use. diminished right upper lobe GASTROINTESTINAL: Abdomen soft, non-tender, nondistended. MUSCULOSKELETAL: No cyanosis, or edema. BACK: Nontender without obvious deformity. No CVA tenderness. Vital Signs Date Time Temp Pulse Resp B/P (MAP) Pulse Ox O2 Delivery O2 Flow Rate FiO2 12/29/16 08:00 97.7 94 20 129/86 (100) 94 12/29/16 04:58 Room Air 12/29/16 04:00 98.1 97 20 121/65 (83) 94 12/29/16 00:20 Room Air 12/29/16 00:00 97.8 95 20 139/86 (103) 96 12/28/16 21:58 97 Nasal Cannula 2.00 12/28/16 20:00 97.8 98 20 132/85 (101) 94 12/28/16 20:00 102 12/28/16 20:00 Room Air 12/28/16 16:00 98.1 103 20 142/84 (103) 92 Labs: Laboratory Tests Test 12/29/16 06:07 White Blood Count 7.2 TH/MM3 (4.0-11.0) Red Blood Count 2.62 MIL/MM3 (4.50-5.90) Hemoglobin 8.1 GM/DL (13.0-17.0) Hematocrit 24.4 % (39.0-51.0) Mean Corpuscular Volume 93.2 FL (80.0-100.0) Mean Corpuscular Hemoglobin 30.8 PG (27.0-34.0) Mean Corpuscular Hemoglobin Concent 33.0 % (32.0-36.0) Red Cell Distribution Width 16.4 % (11.6-17.2) Platelet Count 191 TH/MM3 (150-450) Mean Platelet Volume 8.5 FL (7.0-11.0) Neutrophils (%) (Auto) 58.9 % (16.0-70.0) Lymphocytes (%) (Auto) 25.6 % (9.0-44.0) Monocytes (%) (Auto) 8.4 % (0.0-8.0) Eosinophils (%) (Auto) 6.3 % (0.0-4.0) Basophils (%) (Auto) 0.8 % (0.0-2.0) Neutrophils # (Auto) 4.2 TH/MM3 (1.8-7.7) Lymphocytes # (Auto) 1.8 TH/MM3 (1.0-4.8) Monocytes # (Auto) 0.6 TH/MM3 (0-0.9) Eosinophils # (Auto) 0.5 TH/MM3 (0-0.4) Basophils # (Auto) 0.1 TH/MM3 (0-0.2) CBC Comment DIFF FINAL Differential Comment Blood Urea Nitrogen 63 MG/DL (7-18) Creatinine 7.04 MG/DL (0.60-1.30) Random Glucose 81 MG/DL (74-106) Total Protein 7.0 GM/DL (6.4-8.2) Albumin 2.4 GM/DL (3.4-5.0) Calcium Level 9.0 MG/DL (8.5-10.1) Alkaline Phosphatase 65 U/L (45-117) Aspartate Amino Transf (AST/SGOT) 8 U/L (15-37) Alanine Aminotransferase (ALT/SGPT) 12 U/L (12-78) Total Bilirubin 0.3 MG/DL (0.2-1.0) Sodium Level 139 MEQ/L (136-145) Potassium Level 4.5 MEQ/L (3.5-5.1) Chloride Level 103 MEQ/L (98-107) Carbon Dioxide Level 28.2 MEQ/L (21.0-32.0) Anion Gap 8 MEQ/L (5-15) Estimat Glomerular Filtration Rate 8 ML/MIN (>89) Result Diagram: 12/29/1660612/29/16606 Telemetry: NSR (1) Pulmonary infiltrate in right lung on chest x-ray Plan: for right thoracotomy / pulmonary resection in am (2) Pneumonia Problem Qualifiers (1) Pneumonia: Qualified Codes: J18.1 - Lobar pneumonia, unspecified organism Marly Heart Dec 29, 2016 13:21
[2016-12-29] MEDS: HEPARIN SODIUM - IV 10,000 UNITS/10 ML VIAL PRN (16:10)
[2016-12-29] MEDS: GENTAMICIN SULFATE (DIALYSIS USE ONLY) 20 MG/2 ML VIAL IV PRN (16:10)
[2016-12-29] MEDS: EPOETIN ALFA 4,000 UNITS/ML VIAL IV PRN (16:10)
[2016-12-29] MEDS: SODIUM CHLOR 0.9% 1000 ML INJ 1,000 ML OTHER PRN (16:10)
[2016-12-29] MEDS: EPOETIN ALFA 10,000 UNITS/ML VIAL IV PRN (16:10)
--- NOTE | 2016-12-29 19:44 | HHI.PR ---
Subjective Remarks Went for a CT guided biopsy of the RUL lesion. Has cough and no hemoptysis.No fever . Rpt CXR shows chronic RUL cavitary disease. CT chest shows a RUL Cavity with a poss Fungus Ball. Biopsy of RUL lesion was Negative for Fungus ,AFB or malignancy. Showed Fibrotic Lung. Objective Vital Signs Date Time Temp Pulse Resp B/P (MAP) Pulse Ox O2 Delivery O2 Flow Rate FiO2 12/29/16 18:06 Room Air 12/29/16 16:00 97.7 99 20 110/81 (91) 94 12/29/16 13:00 Room Air 12/29/16 12:00 97.9 98 20 125/79 (94) 98 12/29/16 09:00 Room Air 12/29/16 08:24 97 12/29/16 08:00 97.7 94 20 129/86 (100) 94 12/29/16 04:58 Room Air 12/29/16 04:00 98.1 97 20 121/65 (83) 94 12/29/16 00:20 Room Air 12/29/16 00:00 97.8 95 20 139/86 (103) 96 12/28/16 21:58 97 Nasal Cannula 2.00 12/28/16 20:00 97.8 98 20 132/85 (101) 94 12/28/16 20:00 102 12/28/16 20:00 Room Air I/O 12/28/16 12/28/16 12/28/16 12/29/16 12/29/16 12/29/16 07:00 15:00 23:00 07:00 15:00 23:00 Intake Total 3400 ml 1320 ml 320 ml 480 ml Output Total 500 ml 800 ml 550 ml 1000 ml 2050 ml Balance 2900 ml -800 ml 770 ml -680 ml -1570 ml Intake Oral 3400 ml 1320 ml 320 ml 480 ml Output Urine Total 500 ml 800 ml 550 ml 1000 ml 550 ml Hemodialysis 1500 ml # Bowel Movements 0 0 0 Result Diagram: 12/29/1660612/29/16606 Objective Remarks GENERAL: This is a middle-aged averagely built white male who is alert and in no acute distress. HEAD, EYES, EARS, NOSE, THROAT: Head normocephalic. The pupils are reactive. Throat is clear. NECK: The neck is supple. No bruits. No thyroid enlargement. No lymphadenopathy. CHEST: Equal movements. Occ wheeze heard over Right chest and Occ Crackles. HEART: Heart sounds are regular. S1 and S2. No murmur. ABDOMEN: Abdomen is soft and protuberant. No masses or tenderness. EXTREMITIES: No edema. No calf tenderness. NEUROLOGIC: Reflexes are normal. No focal deficits. SKIN: Warm. Assessment and Plan Assessment and Plan IMPRESSION: 1. Extensive right lung pneumonia with Cavitation and Poss Fungal Infection 2. Chronic kidney disease with acute renal failure. 3. COPD with emphysema and chronic bronchitis. 4. History of coronary artery bypass grafting. Plan : 1. D/W Thoracic surgery about Vats Thoracotomy and RUL resection 2. Cont O2 at 2 L. 3. Nebs qid , duoneb 4. Labs in am 5. IS at bedside q3h. 6. Dialysis as planned Alison Wilson MD Dec 29, 2016 19:44
[2016-12-29] MEDS: TEMAZEPAM 15 MG CAP PO PRN (23:33)
[2016-12-30] VITALS (11 sets, daily range): BP systolic 100–122; BP diastolic 52–74; PULSE 71–110; RESP 17–20; TEMP 97.8–98.8; O2SAT 94–98
[2016-12-30] MEDS: SEVELAMER CARBONATE 800 MG TAB PO SCH ×3 (08:00→20:41)
[2016-12-30] MEDS ORDERED: ESMOLOL HCL 100 MG/10 ML VIAL IV ONE (08:20)
[2016-12-30] MEDS ORDERED: PHENYLEPH/NS 1000 MCG/10 ML SYR IV ONE (08:20)
[2016-12-30] MEDS ORDERED: ROCURONIUM INJ 50 MG/5 ML SYRINGE IV PUSH ONE (08:20)
[2016-12-30] MEDS ORDERED: PHENYLEPHRINE HCL 10 MG/ML VIAL IV ONE (08:20)
[2016-12-30] MEDS ORDERED: ONDANSETRON HCL 4 MG/2 ML VIAL IV PUSH ONE (08:20)
[2016-12-30] MEDS ORDERED: SODIUM CHLOR 0.9% 1000 ML INJ 1,000 ML IV ONE (08:20)
[2016-12-30] MEDS ORDERED: PROPOFOL 200 MG/20 ML AMP IV ONE (08:20)
[2016-12-30] MEDS ORDERED: LIDOCAINE HCL 1% PF 5 ML AMPULE OTHER ONE (08:20)
[2016-12-30] MEDS ORDERED: SODIUM CHLORID 0.9% 500 ML INJ 1,000 ML IV ONE (08:20)
[2016-12-30] MEDS ORDERED: METOPROLOL TARTRATE 5 MG/5 ML VIAL IV PUSH ONE (08:20)
[2016-12-30] MEDS ORDERED: DEXAMETHASONE SOD PHOS 4 MG/ML VIAL IV ONE (08:20)
[2016-12-30] MEDS: PANTOPRAZOLE SOD 40 MG DELAYED RELEASE TAB PO SCH ×2 (09:00→20:27)
[2016-12-30] MEDS: LACTOBACILLUS ACIDOPHILUS TAB PO SCH ×2 (09:00→20:27)
[2016-12-30] MEDS: HYDROCORTISONE ACETATE 25 MG SUPP RECTAL SCH ×2 (09:00→20:30)
[2016-12-30] MEDS: CHOLECALCIFEROL (VIT D3) 1000 UNIT TAB PO SCH (09:00)
[2016-12-30] MEDS ORDERED: POVIDONE IODINE 5% (ANTISEPSIS KIT) 4 APPLICATIONS EACH NARE PRN (09:15)
[2016-12-30] MEDS ORDERED: SODIUM CHLORID 0.9% 500 ML IV PRN (09:15)
[2016-12-30] MEDS ORDERED: INSULIN HUMAN REGULAR 1,000 UNITS/10 ML VIAL SQ PRN (09:15)
[2016-12-30] MEDS ORDERED: LACTATED RINGER'S 1000 ML IV PRN (09:15)
[2016-12-30] MEDS ORDERED: CHLORHEXIDINE GLUCONATE 2 % 1 PACK (2 CLOTHS) TOPICAL PRN (09:15)
[2016-12-30] MEDS ORDERED: METOPROLOL TARTRATE 25 MG TAB PO PRN (09:15)
--- NOTE | 2016-12-30 10:14 | HHI.NPPN ---
Subjective General Problems: Anemia Renal Failure: Acute Interval History Dialyzed yesterday. Awaiting surgery this AM. (Milla Pack) Review of Systems General Constitutional: Fatigue (Milla Pack) Respiratory Lungs: Cough, Sputum Respiratory Remarks slightly hemoptysis (Milla Pcak) Objective Data Data Vital Signs Date Time Temp Pulse Resp B/P (MAP) Pulse Ox O2 Delivery O2 Flow Rate FiO2 12/30/16 08:00 98.1 71 18 115/74 (88) 94 12/30/16 04:00 98.0 98 17 112/66 (81) 98 12/30/16 00:00 98.2 96 19 122/74 (90) 96 12/29/16 20:00 Nasal Cannula 2.00 12/29/16 20:00 103 12/29/16 20:00 98.0 104 21 116/69 (85) 98 12/29/16 18:06 Room Air 12/29/16 16:00 97.7 99 20 110/81 (91) 94 12/29/16 13:00 Room Air 12/29/16 12:00 97.9 98 20 125/79 (94) 98 (Milla Pack) -: 12/29/16 0607 12/29/16 0607 Tubes & Lines: Perma-Cath (Milla Pack) Physical Exam General Appearance: No Acute Distress, Comfortable (Milla Pack) Eyes Eye Exam: Pupils Equal, Pupils Reactive (Milla Pack) Throat Throat Exam: Oral Mucosa [place] & Moist (Milla Pack) Neck Neck Exam: Neck Supple (Milla Pack) Pulmonary Resp Exam: Breath Sounds Equal, No Distress, Rhonchi, Decreased Bases Resp Remarks crackles mostly on right upper lung field (Milla Pack) Cardiology CV Exam: Regular, Normal Sinus Rhythm, Good Perfusion (Milla Pack) Gastrointestinal/Abdomen GI Exam: Soft, Non-Tender, Bowel Sounds Present, Positive Bowel Movement (Milla Pack) Musculoskeletal MS Exam: Joints Intact, Normal Gait, Normal Tone, Good Strength (Milla Pack) Integumentary Skin Exam: Clear, Warm, Dry, Intact (Milla Pack) Extremeties Extremities Exam: No Edema, Pedal Pulses Palpable (Milla Pack) Neurologic Neuro Exam: Alert, Awake, Oriented, Speech Clear, Moving All Extremities (Milla Pack) Psychiatric Psych Exam: Appropriate Responses (Milla Pack) Assessment/Plan Discussed Condition With: Patient Assessment Summary: SEJAL/Acute Renal Failure, Anemia of CKD Electrolyte Assessment: Hypocalcemia, Hypokalemia, Metabolic Acidosis Problem List: (1) Chronic kidney disease, stage 5 ICD Codes: N18.5 - Chronic kidney disease, stage 5 Plan: Patient likely has reached ESRD. s/p renal biopsy this admission. Of note he is non oliguric. Continue dialysis support MWF. He had 1500 ml UF yesterday. He has appointment on 01/02 to discuss possible AVG placement; we will have vascular reconsult this week to discuss. replace electrolytes as needed Continue nutritional support with meals; on high protein diet The plan is for him to enter transitional HD program at [place]. When he is approved he can be discharged, may take several weeks. Will keep in touch with case management regarding insurance; now he is being applied for medicare. (2) Hypokalemia ICD Codes: E87.6 - Hypokalemia Status: Acute Plan: He may have a proximal tubule disorder Follow labs, he is off daily replacement 24 hour urine for potassium shows he has renal wasting (3) GI bleed ICD Codes: K92.2 - Gastrointestinal hemorrhage, unspecified Status: Acute Plan: GI has signed off; s/p EGD/colonoscopy may need capsule endoscopy outpatient (4) Pneumonia ICD Codes: J18.9 - Pneumonia, unspecified organism Status: Acute Plan: Pulmonary following, s/p bronchoscopy. CT chest and biopsy were taken No malignancies identified. Biopsy negative for pulmonary aspergillus fungal ball in right lung On prednisone, and Robitussin To have right thoracotomy today Continue supportive care (5) Hypocalcemia ICD Codes: E83.51 - Hypocalcemia Plan: Continue to reat hyperphosphatemia, on Sevelamer with meals. (6) Anemia ICD Codes: D64.9 - Anemia Status: Acute Plan: Transfuse as needed, Most recent 12/24 Continue high dose of Epogen with dialysis. (7) Acidosis ICD Codes: E87.2 - Acidosis Status: Acute Plan: corrected, monitor (Milla Pack) Plan patient was seen and examined. Thoracotomy today. Agree with above assessment and plan. (Jim Zuluaga MD) Problem Qualifiers (1) GI bleed: (2) Pneumonia: Qualified Codes: J18.1 - Lobar pneumonia, unspecified organism (3) Anemia: Qualified Codes: N18.5 - Chronic kidney disease, stage 5; D63.1 - Anemia in chronic kidney disease Milla Pack Dec 30, 2016 10:14 Jim Zuluaga MD Dec 30, 2016 10:42
--- NOTE | 2016-12-30 11:08 | HHI.PR ---
Subjective Remarks Follow-up on patient with ESRD, anemia, COPD, cavitary PNA. patient seen and examined. Patient scheduled for partial lobectomy later today. Patient denies any complaints at present. He denies any fever or chills. Denies any chest pain or shortness of breath. Denies any nausea, vomiting or abdominal pain. Objective Vitals Vital Signs Date Time Temp Pulse Resp B/P (MAP) Pulse Ox O2 Delivery O2 Flow Rate FiO2 12/30/16 08:00 98.1 71 18 115/74 (88) 94 12/30/16 04:00 98.0 98 17 112/66 (81) 98 12/30/16 00:00 98.2 96 19 122/74 (90) 96 12/29/16 20:00 Nasal Cannula 2.00 12/29/16 20:00 103 12/29/16 20:00 98.0 104 21 116/69 (85) 98 12/29/16 18:06 Room Air 12/29/16 16:00 97.7 99 20 110/81 (91) 94 12/29/16 13:00 Room Air 12/29/16 12:00 97.9 98 20 125/79 (94) 98 I/O 12/29/16 12/29/16 12/29/16 12/30/16 12/30/16 12/30/16 07:00 15:00 23:00 07:00 15:00 23:00 Intake Total 320 ml 480 ml 680 ml Output Total 1000 ml 2050 ml 600 ml Balance -680 ml -1570 ml 80 ml Intake Oral 320 ml 480 ml 680 ml Output Urine Total 1000 ml 550 ml 600 ml Hemodialysis 1500 ml # Bowel Movements 0 100 Result Diagram: 12/29/16 0607 12/29/16 0607 Imaging Last Impressions Chest X-Ray 12/26/16 0600 Signed Impressions: Service Date/Time: Monday, December 26, 2016 06:47 - CONCLUSION: Unchanged cavitary consolidation right upper lobe. Broderick Ndiaye MD Lung Biopsy CT 12/23/16 0000 Signed Impressions: Service Date/Time: Friday, December 23, 2016 09:37 - CONCLUSION: Uncomplicated CT guided biopsy/aspiration. Broderick Ndiaye MD Chest CT 12/17/16 1715 Signed Impressions: Service Date/Time: Saturday, December 17, 2016 17:51 - CONCLUSION: 1. Dense consolidation persists in the right upper lobe with air bronchograms and air filled cystic spaces. Debris versus possible fungus ball in one of the cystic spaces at the apex which is new. Multi-organism pneumonia suspected. 2. Non-consolidative patchy infiltrate of the right middle and lower lobes not significantly changed. 3. Decreased pleural effusion on the right, now trace. Completely resolved pleural effusion on the left. 4. Previous median sternotomy. Caio Wray MD Upper Extremity Ultrasound 12/04/16 0000 Signed Impressions: Service Date/Time: November 18:26 - CONCLUSION: Venous mapping as delineated above. The cephalic veins are abnormal bilaterally. Caio Villalpando MD Renal Biopsy CT 12/02/16 1350 Signed Impressions: Service Date/Time: Friday, December 02, 2016 08:33 - CONCLUSION: Uncomplicated CT guided biopsy of the right kidney for function. Mustapha Vela Jr., MD Catheter Placement X-Ray 11/28/16 0000 Signed Impressions: Service Date/Time: Monday, November 28, 2016 15:57 - CONCLUSION: Uncomplicated PermaCath placement as above. Mustapha Vela Jr., MD Renal Ultrasound 11/22/16 0000 Signed Impressions: Service Date/Time: Tuesday, November 22, 2016 17:14 - CONCLUSION: Mild pelvocaliectasis right kidney not present previously. Obdulia Garcia MD Objective Remarks GENERAL: Well-nourished, well-developed patient in NAD. Lying in hospital bed. Awake and alert. SKIN: Warm and dry. HEAD: Normocephalic. Atraumatic. EYES: EOMI. No scleral icterus. No injection or drainage. ENT: No nasal bleeding or discharge. Mucous membranes pink and moist. NECK: Supple. Trachea midline. CARDIOVASCULAR: Regular rate and rhythm. S1, S2 noted. No murmur appreciated. RESPIRATORY: No accessory muscle use. Clear to auscultation. Breath sounds equal bilaterally. GASTROINTESTINAL: Abdomen soft, non-tender, nondistended. Normoactive bowel sounds x4. MUSCULOSKELETAL: No obvious deformities. Extremities without clubbing, cyanosis , or edema. NEUROLOGICAL: Awake and alert. Able to move all extremities. Normal speech. PSYCHIATRIC: Appropriate mood and affect; insight and judgment normal. Procedures 11/28/2016 Right Internal Jugular Hemodialysis Catheter Tunneled Placement dual lumen 12/02/2016 Successful right renal biopsy for function. Gelfoam and thrombin utilized. No bleeding on post CT Lung Biopsy 12/23/16. Dialysis 12/24/16. Medications and IVs Current Medications Medications (Trade) Dose Ordered Sig/Edwin Route Start Time Stop Time Status Last Admin (NS Flush) 2 ml UNSCH PRN IVF 11/22/16 15:00 12/24/16 20:55 (Milk Of Magnesia Liq) 30 ml Q12H PRN PO 11/22/16 18:00 (Tylenol) 650 mg Q4H PRN PO 11/24/16 13:15 12/11/16 00:37 (Zofran Inj) 4 mg Q6H PRN IV 11/24/16 13:15 (Mag-Al Plus Susp Liq) 30 ml Q6H PRN PO 11/24/16 13:15 (Restoril) 15 mg HS PRN PO 11/24/16 13:15 12/29/16 23:33 (Vitamin D3) 2,000 units DAILY PO 11/25/16 09:15 12/29/16 10:20 (Lactinex) 1 tab Q12HR PO 11/26/16 21:00 12/29/16 20:35 (Hemorrhoidal Hc Supp) 25 mg DAILY RECTAL 11/27/16 09:00 12/28/16 09:47 Sodium Chloride 1,000 ml @ 0 mls/hr Q0M PRN OTHER 11/28/16 15:28 12/29/16 16:10 (Heparin Inj) 8,000 units UNSCH PRN IVF 11/28/16 15:30 Future Hold Sodium Chloride 1,000 ml @ 200 mls/hr Q5H PRN IV 11/28/16 15:28 Sodium Chloride 1,000 ml @ 0 mls/hr Q0M PRN OTHER 11/28/16 15:28 11/30/16 12:02 (Mannitol Inj) 12.5 gm UNSCH PRN IV 11/28/16 15:30 (Albumin 25% Inj) 25 gm UNSCH PRN IV 11/28/16 15:30 12/24/16 08:52 (NS Flush) 5 ml UNSCH PRN IV FLUSH 11/28/16 15:30 12/20/16 09:01 (Heparin Inj) UNSCH PRN .XX 11/28/16 15:30 12/29/16 16:10 (Gentamicin (Dialysis) Inj) 20 mg UNSCH PRN IV 11/28/16 15:30 12/29/16 16:10 (Zofran Inj) 4 mg UNSCH PRN IV 11/28/16 15:30 (Tylenol) 650 mg UNSCH PRN PO 11/28/16 15:30 12/19/16 13:06 (Benadryl) 25 mg UNSCH PRN PO 11/28/16 15:30 12/19/16 13:06 (Nitrostat Sl) 0.4 mg UNSCH PRN SL 11/28/16 15:30 (Catapres) 0.1 mg UNSCH PRN PO 11/28/16 15:30 (Gelfoam 12 Mm/7 Mm Top) 1 foam UNSCH PRN TOP 11/28/16 15:30 (NS Flush) UNSCH PRN IVF 11/28/16 18:15 (Heparin Inj) UNSCH PRN IV FLUSH 11/28/16 18:15 Future Hold (Duoneb Neb) 1 ampule Q4HR NEB PRN NEB 11/29/16 12:30 12/25/16 21:03 (Benadryl) 25 mg Q8H PRN PO 11/30/16 10:00 12/15/16 02:51 (Protonix) 40 mg Q12HR PO 12/01/16 21:00 12/29/16 20:30 (Renvela) 1,600 mg TIDAC PO 12/03/16 17:00 12/29/16 17:44 (Robitussin Ac 200-20 Mg/10 ml Liq) 10 ml Q6H PRN PO 12/15/16 14:00 12/21/16 21:01 (Epogen Inj) 10,000 units UNSCH PRN IV 12/17/16 09:30 12/29/16 16:10 (Epogen Inj) 4,000 units UNSCH PRN IV 12/17/16 09:45 12/29/16 16:10 (Hemorrhoidal Hc Supp) 25 mg BID RECTAL 12/18/16 21:00 (Cepacol Extra Elenita (Sugar Free)) 1 lozenge Q2HR PRN BUCCAL 12/23/16 09:00 (Bradley 5-325 Mg) 1 tab Q4H PRN PO 12/25/16 09:15 12/29/16 23:33 Cefazolin Sodium 500 mg/Sodium Chloride 505 ml @ 0 mls/hr MORTGAGE LOAN ORIGINATOR IRRIGATION 12/26/16 14:00 01/02/17 13:59 Cefazolin Sodium/ Dextrose 50 ml @ 150 mls/hr MORTGAGE LOAN ORIGINATOR IV 12/26/16 13:45 01/02/17 13:44 (Hibiclens 4% Top Soln) 1 applic MORTGAGE LOAN ORIGINATOR TOPICAL 12/26/16 13:45 01/02/17 13:44 (Ferrous Sulfate) 325 mg BID@12,17 PO 12/29/16 12:00 12/29/16 17:44 (Vitamin C) 500 mg BID@1200,1700 PO 12/29/16 12:00 12/29/16 17:44 (Tiara-Colace) 1 tab DAILY PRN PO 12/29/16 12:00 12/29/16 12:17 Lactated Ringer's 1,000 ml @ 30 mls/hr Q24H PRN IV 12/30/16 09:15 01/02/17 09:14 Sodium Chloride 500 ml @ 30 mls/hr [id number] PRN IV 12/30/16 09:15 01/02/17 09:14 (Lopressor) 25 mg MORTGAGE LOAN ORIGINATOR PRN PO 12/30/16 09:15 01/02/17 09:14 (Betadine 5% Antisepsis Kit) 1 applic MORTGAGE LOAN ORIGINATOR PRN EACH NARE 12/30/16 09:15 01/02/17 09:14 (Chlorhexidine 2% Cloth) 3 pack MORTGAGE LOAN ORIGINATOR PRN TOPICAL 12/30/16 09:15 01/02/17 09:14 (NovoLIN R INJ) See Protocol Table ... MORTGAGE LOAN ORIGINATOR PRN SQ 12/30/16 09:15 01/02/17 09:14 A/P Problem List: (1) Sepsis ICD Code: A41.9 - Sepsis, unspecified organism Status: Acute (2) Acute renal failure ICD Code: N17.9 - Acute kidney failure, unspecified Status: Acute (3) Pneumonia ICD Code: J18.9 - Pneumonia, unspecified organism Status: Acute (4) Coronary artery disease ICD Code: I25.10 - Coronary artery disease Status: Acute (5) Anemia ICD Code: D64.9 - Anemia Status: Acute (6) Hematochezia ICD Code: K92.1 - Melena Status: Acute (7) Hypokalemia ICD Code: E87.6 - Hypokalemia Status: Acute Assessment and Plan Mr. Fonseca is a 55-year-old male patient with a known medical history of CAD s/ p CABG and CKD who presented to the ED with complaints of increasing dyspnea, generalized weakness, fevers and frequent diaphoresis x 2 weeks. Sepsis on admission suspect secondary to right multilobular pneumonia-resolved Dense cavitary pneumonia of the right lung - Pulmonary following - Completed cefepime 1 g every 12 hours on 12/06/16 - Cardiothoracic Surgery and ID consulted. - Negative Aspergillus titers. Chronic obstructive pulmonary disease Respiratory failure Extensive right lung pneumonia with cavitation - CT chest 11/26 dense consolidative right upper lobe pneumonia with severe emphysema with cavitary foci within the consolidated areas, patchy right middle and lower lobe pneumonia - Pulmonary following - RUL BAL 12/05 negative for malignant cells - CT guided bx 12/23 negative for fungus, AFB or malignancy. Substantial fibrosis noted. - Sputum culture negative. Bronchial cultures negative. Negative Aspergillus titers. - Patient for VATS thoracotomy and right upper lobe resection today - Continue scheduled and PRN duonebs. - Continue Robitussin Ac prn cough - Supplemental O2 to keep sats >88%. ESRD - Per nephrology will need moth exterminator dialysis (MWF) - dialyzed yesterday - Patient underwent AV fistula surgery on 12/10/2016. However, patient may need AV graft. - US kidney/renal/bladder ordered and reviewed showing mild pelvocaliectasis right kidney. 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 May need capsule endoscopy as outpt. GI has signed off. - Hgb 7.0 on 12/24, repeat H&H. Transfuse is 7.0 or less. - Epogen per Nephrology - monitor CBC Full code. DVT Prophylaxis: SCDs/TEDs., Ambulation. Case discussed with patient and Dr. Xavier. Problem Qualifiers (1) Sepsis: (2) Acute renal failure: Qualified Codes: N17.8 - Other acute kidney failure (3) Pneumonia: Qualified Codes: J18.1 - Lobar pneumonia, unspecified organism (4) Coronary artery disease: Qualified Codes: I25.119 - Atherosclerotic heart disease of curyung coronary artery with unspecified angina pectoris (5) Anemia: Qualified Codes: N18.5 - Chronic kidney disease, stage 5; D63.1 - Anemia in chronic kidney disease Barb Madrigal Dec 30, 2016 11:08
[2016-12-30] MEDS: FERROUS SULFATE 325 MG (65 MG ELEMENTAL IRON) TAB PO SCH ×2 (12:00→20:41)
[2016-12-30] MEDS: ASCORBIC ACID 500 MG TAB PO SCH ×2 (12:00→20:41)
--- NOTE | 2016-12-30 12:44 | HHI.PR ---
Subjective Remarks Went for a CT guided biopsy of the RUL lesion. .No fever . Rpt CXR shows chronic RUL cavitary disease. CT chest shows a RUL Cavity with a poss Fungus Ball. Biopsy of RUL lesion was Negative for Fungus ,AFB or malignancy. Showed Fibrotic Lung. Will go for thoracotomy and resection Objective Vital Signs Date Time Temp Pulse Resp B/P (MAP) Pulse Ox O2 Delivery O2 Flow Rate FiO2 12/30/16 11:47 98.8 95 18 100/60 (73) 98 12/30/16 08:00 94 Nasal Cannula 2.00 21 12/30/16 08:00 93 12/30/16 08:00 98.1 71 18 115/74 (88) 94 12/30/16 04:00 98.0 98 17 112/66 (81) 98 12/30/16 00:00 98.2 96 19 122/74 (90) 96 12/29/16 20:00 Nasal Cannula 2.00 12/29/16 20:00 103 12/29/16 20:00 98.0 104 21 116/69 (85) 98 12/29/16 18:06 Room Air 12/29/16 16:00 97.7 99 20 110/81 (91) 94 12/29/16 13:00 Room Air I/O 12/29/16 12/29/16 12/29/16 12/30/16 12/30/16 12/30/16 07:00 15:00 23:00 07:00 15:00 23:00 Intake Total 320 ml 480 ml 680 ml Output Total 1000 ml 2050 ml 600 ml 100 ml Balance -680 ml -1570 ml 80 ml -100 ml Intake Oral 320 ml 480 ml 680 ml Output Urine Total 1000 ml 550 ml 600 ml 100 ml Hemodialysis 1500 ml # Bowel Movements 0 100 Result Diagram: 12/29/16 0607 12/29/16 0607 Objective Remarks GENERAL: This is a middle-aged averagely built white male who is alert and in no acute distress. HEAD, EYES, EARS, NOSE, THROAT: Head normocephalic. The pupils are reactive. Throat is clear. NECK: The neck is supple. No bruits. No thyroid enlargement. No lymphadenopathy. CHEST: Equal movements. Occ wheeze heard over Right chest and Crackles. HEART: Heart sounds are regular. S1 and S2. No murmur. ABDOMEN: Abdomen is soft and protuberant. No masses or tenderness. EXTREMITIES: No edema. No calf tenderness. NEUROLOGIC: Reflexes are normal. No focal deficits. SKIN: Warm. Assessment and Plan Assessment and Plan IMPRESSION: 1. Extensive right lung pneumonia with Cavitation and Poss Fungal Infection 2. Chronic kidney disease with acute renal failure. 3. COPD with emphysema and chronic bronchitis. 4. History of coronary artery bypass grafting. Plan : 1.Thoracic surgery for Vats Thoracotomy and Biopsy 2. Cont O2 at 2 L. 3. Nebs qid , duoneb 4. Chest Xray in am 5. IS at bedside q3h. 6. Dialysis as planned 7. Symbicort 160/4.5 mcg , 2 puffs bid Alison Wilson MD Dec 30, 2016 12:44
[2016-12-30] MEDS ORDERED: FAMOTIDINE 20 MG/2 ML VIAL ONE (12:47)
[2016-12-30] MEDS ORDERED: MIDAZOLAM HCL 2 MG/2 ML VIAL ONE (12:47)
[2016-12-30] MEDS ORDERED: BUPIVACAINE HCL PF 0.5% 30 ML VIAL ONE ×2 (13:35→14:03)
[2016-12-30] MEDS ORDERED: SUGAMMADEX SODIUM 200 MG/2 ML VIAL IV PUSH ONE ×2 (14:55)
[2016-12-30] MEDS ORDERED: HYDROmorphone HCL PF 2 MG/ML VIAL ONE (14:55)
[2016-12-30] MEDS ORDERED: NALOXONE HCL 0.4 MG/ML AMP IV PUSH PRN (16:45)
[2016-12-30] MEDS ORDERED: ACETAMINOPHEN 325 MG TAB PO PRN (16:45)
[2016-12-30] MEDS ORDERED: Post-op Orders (for Pharmacy) MISC OTHER ONE (16:45)
[2016-12-30] MEDS ORDERED: KETOROLAC TROMETHAMINE 30 MG/ML (IVP) VIAL IV PUSH SCH (16:45)
[2016-12-30] MEDS ORDERED: ONDANSETRON HCL 4 MG/2 ML VIAL IV PUSH PRN (16:45)
[2016-12-30] MEDS ORDERED: MAGNESIUM HYDROXIDE SUSP 30 ML CUP PO PRN (16:45)
--- NOTE | 2016-12-30 16:52 | PD.OP ---
cc: Alison Wilson MD; Carmelita Roth MD Operative Report Date of Surgery: Dec 30, 2016 Preoperative Diagnosis: (1) Pulmonary infiltrate in right lung on chest x-ray (2) COPD (chronic obstructive pulmonary disease) Postoperative Diagnosis: same Procedure: Right thoracotomy with VATS assist, lysis of adhesions, decortication, pleural biopsies and cultures, right upper lobe biopsies and cultures Anesthesia: Dr. Antunez Surgeon: Carmelita Roth Machine Tank Operator(s): PETE Malave Operation and Findings: After adequate general anesthesia the patient was placed in the left lateral decubitus position and the right chest was prepped and draped in usual manner. Initially, an anterior camera port incision was placed at ~7th intercostal space as adhesions were anticipated related to the patients right upper lobe consolidation. A small lateral thoracotomy incision was performed under direct vision and electrocautery was used to obtain hemostasis and carry the dissection down through the latissimus dorsi. The serratus anterior was retracted anteriorly and the 5th intercostal space was entered under direct vision and selective single lung ventilation. Dense adhesions and a localized pleural reaction was found involving the entire right upper lobe and minor fissure. Adhesions were lysed from both a second small port incision laterally as well as through the thoracotomy incision. Mobilization of adhesions was associated with fairly heavy raw surface bleeding. The parietal pleura was approximately 4 mm thick. A limited decortication of the anterior and lateral right upper lobe was performed. A pleural biopsy was obtained and submitted for cultures as well as pathology. A retractor was placed after shingling the 5th rib posteriorly. Exploration of the right hemithorax was significant for dense consolidation of the right upper lobe with no visible signs of ventilation. Right upper lobe resection was considered, but not technically feasible due to the dense consolidation, inflammation, and frozen hilum associated. Therefore, 3 right upper lobe biopsies were performed and each submitted for culture and pathologic examination. Hemostasis was controlled with cautery and surgicel. A 32F chest tube was then placed through the camera port anteriorly and secured with 0 silk suture. An On Q pump was placed for postoperative analgesia. The lung was ventilated and a right middle lobe air leak was controlled with closure using a 4-0 Prolene suture. The wound was closed in layers approximately in the ribs initially with a 2. Vicryl figure-of- eight suture. The latissimus dorsi was reapproximated using a running 0 Vicryl suture. The subcutaneous tissues approximated running 2-0 Vicryl suture and the skin was approximated using running 4-0 Monocryl subcuticular stitch. All sponges history counts were correct at the close the procedure and the patient was transferred to the PACU for recovery purposes. Carmelita Roth MD Dec 30, 2016 16:52
[2016-12-30] MEDS ORDERED: DO NOT ADM ANY ANTICOAGULANT DRUGS PRN (17:20)
[2016-12-30 17:30] LABS: BLOOD GAS CARBOXYHEMOGLOBIN 3.1 % (0-4); BLOOD GAS HCO3 23 mmol/L (22-26); BLOOD GAS METHEMOGLOBIN 1.3 % (0-2); BLOOD GAS O2 HGB SATURATION 95 % (90-100); BLOOD GAS OXYGEN CONTENT 11.5 Vol % (12.0-20.0); BLOOD GAS PCO2 47 mmHg (38-42); BLOOD GAS PO2 146 mmHg (61-120); BLOOD GAS TOTAL HGB 8.4 G/DL (12.0-16.0); CRITICAL VALUE NO; DRAW SITE ART LINE; LITER FLOW 5 L/M; OXYGEN DEVICE SM; STAT YES; TEMP CORR TO 98.6
[2016-12-30 17:35] LABS: AUTOMATED NEUTROPHIL # 7.7 TH/MM3 (1.8-7.7); BASOPHIL # 0.1 TH/MM3 (0-0.2); BASOPHIL % 0.7 % (0.0-2.0); EOSINOPHIL % 0.4 % (0.0-4.0); HEMATOCRIT 25.3 % (39.0-51.0); HEMO FLAGS DIFF FINAL; LYMPHOCYTE # 0.6 TH/MM3 (1.0-4.8); MEAN CELL VOLUME 93.4 FL (80.0-100.0); MEAN CORPUSCULAR HEMOGLOBIN 31.1 PG (27.0-34.0); MEAN CORPUSCULAR HGB CONC 33.3 % (32.0-36.0); MONO % 2.3 % (0.0-8.0); NEUT % 89.6 % (16.0-70.0); PLATELET COUNT 199 TH/MM3 (150-450); RED BLOOD COUNT 2.71 MIL/MM3 (4.50-5.90); RED CELL DISTRIBUTION WIDTH 15.8 % (11.6-17.2); WHITE BLOOD COUNT 8.6 TH/MM3 (4.0-11.0)
--- NOTE | 2016-12-30 17:44 | RADRPT ---
EXAM DATE/TIME: 12/30/2016 17:17 [facility] COMPARISON: CHEST SINGLE AP, December 26, 2016, 6:47. INDICATIONS : Post Thoracotomy. MEDICAL HISTORY : Hypertension. Chronic obstructive pulmonary disease. Cardiovascular disease renal failure SURGICAL HISTORY : CABG. ENCOUNTER: Subsequent ACUITY: 3 weeks PAIN SCORE: 8/10 LOCATION: Bilateral chest FINDINGS: Dialysis catheter and right-sided chest tube identified. Subcutaneous emphysema along the right hemit horax noted with dense consolidative opacity in the right mid to upper lungs. I do not see a large pn eumothorax on the right tiny right basilar pneumothorax is suspected. Left lung is clear. CONCLUSION: Post thoracotomy changes on the right are noted with a tiny right basilar pneumothorax suspected at t he right lateral costophrenic angle. Vasu Barrientos MD on December 30, 2016 at 17:41 Board Certified Radiologist. This report was verified electronically.
[2016-12-30] MEDS ORDERED: *morphine SULFATE 8 MG/ML PERIprocedure ONLY ONE (18:00)
[2016-12-30] MEDS ORDERED: *RESP: ALBUTEROL 2.5 MG/3 ML NEB (PRN) PERIprocedural Use ONLY NEB ONE (18:22)
[2016-12-30] MEDS: SODIUM CHLOR 0.9% 1000 ML INJ 1,000 ML IV SCH (19:00)
[2016-12-30] MEDS: SODIUM CHLORIDE 0.9% FLUSH 5 ML FLUSH IV FLUSH SCH (20:27)
[2016-12-30] MEDS: MORPHINE SULFATE 30 MG/30 ML PCA IV SCH (20:28)
[2016-12-30] MEDS ORDERED: BUDESONIDE-FORMOTEROL 160/4.5 MCG INHALER INH SCH (21:00)
[2016-12-30] MEDS ORDERED: DOCUSATE CALCIUM 240 MG CAP PO SCH (21:00)
[2016-12-30] MEDS: PCA - TOTAL MG MORPHINE DELIVERED PER SHIFT SCH (22:00)
[2016-12-31] VITALS (23 sets, daily range): BP systolic 107–121; BP diastolic 56–70; PULSE 97–121; RESP 18–20; TEMP 98–98.9; O2SAT 92–95
[2016-12-31] MEDS: MORPHINE SULFATE 30 MG/30 ML PCA IV SCH ×2 (05:40→14:39)
[2016-12-31] MEDS: PCA - TOTAL MG MORPHINE DELIVERED PER SHIFT SCH ×3 (05:41→21:26)
--- NOTE | 2016-12-31 05:43 | RADRPT ---
EXAM DATE/TIME: 12/31/2016 05:21 [facility] COMPARISON: CHEST SINGLE AP, December 30, 2016, 17:17. INDICATIONS : Post thoracotomy. MEDICAL HISTORY : Hypertension. Chronic obstructive pulmonary disease. Cardiovascular disease. Renal failure. SURGICAL HISTORY : CABG. ENCOUNTER: Subsequent ACUITY: 3 weeks PAIN SCORE: 8/10 LOCATION: Right chest FINDINGS: A single view of the chest demonstrates right chest tube with a small right pneumothorax and loculate d in the upper right hemithorax. Also dense consolidation in the upper right lung persists. Left lung remains clear. Postop CABG. Increase in air in right chest wall. A dual-lumen right central line tip in right atrium. CONCLUSION: 1. Increase in air in right chest wall with small right pneumothorax visible presumably related to an air leak. Right chest tube remains in place. Dense consolidation in right lung relatively stable. Rios Lai MD on December 31, 2016 at 5:40 Board Certified Radiologist. This report was verified electronically.
[2016-12-31 06:04] LABS: AUTOMATED NEUTROPHIL # 5.7 TH/MM3 (1.8-7.7); BASOPHIL % 0.6 % (0.0-2.0); EOSINOPHIL % 0.2 % (0.0-4.0); HEMATOCRIT 24.6 % (39.0-51.0); HEMO FLAGS DIFF FINAL; LYMPH % 21.5 % (9.0-44.0); LYMPHOCYTE # 1.8 TH/MM3 (1.0-4.8); MEAN CELL VOLUME 93.2 FL (80.0-100.0); MEAN CORPUSCULAR HEMOGLOBIN 31.1 PG (27.0-34.0); MEAN CORPUSCULAR HGB CONC 33.3 % (32.0-36.0); MONO % 10.4 % (0.0-8.0); NEUT % 67.3 % (16.0-70.0); PLATELET COUNT 203 TH/MM3 (150-450); RED BLOOD COUNT 2.64 MIL/MM3 (4.50-5.90); RED CELL DISTRIBUTION WIDTH 16.1 % (11.6-17.2); WHITE BLOOD COUNT 8.5 TH/MM3 (4.0-11.0)
[2016-12-31 06:34] LABS: BICARBONATE 24.9 MEQ/L (21.0-32.0); POTASSIUM 5.9 MEQ/L (3.5-5.1)
[2016-12-31] MEDS ORDERED: DEXTROSE 50% IN WATER 50 ML VIAL(D50) IV PUSH ONE (07:00)
[2016-12-31] MEDS ORDERED: CALCIUM GLUCONATE 10% 1 GM/10 ML VIAL IV PUSH ONE (07:00)
[2016-12-31] MEDS ORDERED: SODIUM POLYSTYRENE SULFONATE SUSP 15 GM/60 ML CUP PO ONE (07:00)
[2016-12-31] MEDS ORDERED: INSULIN HUMAN REGULAR 1,000 UNITS/10 ML VIAL IV PUSH ONE (07:00)
[2016-12-31] MEDS ORDERED: CALCIUM GLUCONATE INJ 1 GM in DEXTROSE 5% IN WATER 100ML INJ 100 ML IV ONE ×2 (07:15)
[2016-12-31] MEDS ORDERED: DEXTROSE 50% IN WATER 50 ML SYRINGE IV PUSH ONE (08:00)
[2016-12-31] MEDS: SEVELAMER CARBONATE 800 MG TAB PO SCH ×4 (08:00→19:46)
[2016-12-31] MEDS: SODIUM CHLORIDE 0.9% FLUSH 5 ML FLUSH IV FLUSH SCH ×2 (09:00→20:08)
[2016-12-31] MEDS: HYDROCORTISONE ACETATE 25 MG SUPP RECTAL SCH ×3 (09:00→20:03)
[2016-12-31] MEDS: RESP: BUDESONIDE 0.5 MG/2 ML NEB NEB SCH ×2 (09:06→19:15)
[2016-12-31] MEDS: CHOLECALCIFEROL (VIT D3) 1000 UNIT TAB PO SCH (09:06)
[2016-12-31] MEDS: LACTOBACILLUS ACIDOPHILUS TAB PO SCH ×2 (09:06→20:08)
--- NOTE | 2016-12-31 09:45 | HHI.NPPN ---
Subjective General Problems: Anemia Renal Failure: Acute Interval History Seen in preparation for dialysis. He had right thoracotomy yesterday. Chest tube is in place. Has been NPO. He is hyperkalemic, weak. Had blood transfusion yesterday. (Milla Pack) Review of Systems General Constitutional: Fatigue (Milla Pack) Respiratory Lungs: Cough, Sputum Respiratory Remarks slightly hemoptysis (Milla Pack) Musculoskeletal MS: Pain/Stiffness (Milla Pack) Objective Data Data Vital Signs Date Time Temp Pulse Resp B/P (MAP) Pulse Ox O2 Delivery O2 Flow Rate FiO2 12/31/16 09:10 92 Nasal Cannula 4.00 12/31/16 06:00 105 12/31/16 05:41 18 12/31/16 05:40 18 12/31/16 05:00 108 12/31/16 04:00 107 12/31/16 03:23 94 Nasal Cannula 4.00 12/31/16 03:23 98.1 107 20 120/59 (79) 94 12/31/16 03:00 101 12/31/16 02:00 101 12/31/16 01:00 103 12/31/16 00:00 97 12/30/16 23:36 101 18 119/54 (75) 97 12/30/16 23:36 97 Nasal Cannula 4.00 12/30/16 23:00 98 12/30/16 22:00 96 12/30/16 22:00 18 12/30/16 21:00 100 12/30/16 20:45 96 Room Air 12/30/16 20:45 96 21 12/30/16 20:45 97.8 96 20 108/52 (70) 96 Arterial Line 12/30/16 20:28 20 12/30/16 20:00 96 12/30/16 19:00 90 12/30/16 18:30 97.6 92 23 94/50 (65) 99 Nasal Cannula 3 12/30/16 18:15 94 18 95/47 (63) 97 Nasal Cannula 3 12/30/16 18:00 96 16 99/65 (76) 97 Nasal Cannula 3 94/51 (65) 12/30/16 17:45 93 22 96/60 (72) 97 Nasal Cannula 3 104/57 (73) 12/30/16 17:40 Nasal Cannula 3 12/30/16 17:30 96 32 96/63 (74) 96 Simple Mask 5 98/55 (69) 12/30/16 17:15 100 30 118/64 (82) 99 Simple Mask 5 12/30/16 17:14 97.2 101 30 117/74 (88) 100 Simple Mask 5 12/30/16 11:47 98.8 95 18 100/60 (73) 98 (Milla PackP) -: 12/31/16 0519 12/31/16 0519 Microbiology 12/30/16 Fungal Smear, Received Pending 12/30/16 Fungal Culture, Received Pending 12/30/16 Acid Fast Stain, Received Pending 12/30/16 Mycobacterial Culture, Received Pending 12/30/16 Gram Stain, Received Pending 12/30/16 Wound Culture, Received Pending 12/30/16 Fungal Smear, Received Pending 12/30/16 Fungal Culture, Received Pending 12/30/16 Acid Fast Stain, Received Pending 12/30/16 Mycobacterial Culture, Received Pending 12/30/16 Gram Stain, Received Pending 12/30/16 Wound Culture, Received Pending Imaging Last Impressions Chest X-Ray 12/31/16 0500 Signed Impressions: Service Date/Time: Saturday, December 31, 2016 05:21 - CONCLUSION: 1. Increase in air in right chest wall with small right pneumothorax visible presumably related to an air leak. Right chest tube remains in place. Dense consolidation in right lung relatively stable. Rios Lai MD Lung Biopsy CT 12/23/16 0000 Signed Impressions: Service Date/Time: Friday, December 23, 2016 09:37 - CONCLUSION: Uncomplicated CT guided biopsy/aspiration. Broderick Ndiaye MD Chest CT 12/17/16 1715 Signed Impressions: Service Date/Time: Saturday, December 17, 2016 17:51 - CONCLUSION: 1. Dense consolidation persists in the right upper lobe with air bronchograms and air filled cystic spaces. Debris versus possible fungus ball in one of the cystic spaces at the apex which is new. Multi-organism pneumonia suspected. 2. Non-consolidative patchy infiltrate of the right middle and lower lobes not significantly changed. 3. Decreased pleural effusion on the right, now trace. Completely resolved pleural effusion on the left. 4. Previous median sternotomy. Caio Wray MD Upper Extremity Ultrasound 12/04/16 0000 Signed Impressions: Service Date/Time: November 18:26 - CONCLUSION: Venous mapping as delineated above. The cephalic veins are abnormal bilaterally. Caio Villalpando MD Renal Biopsy CT 12/02/16 1350 Signed Impressions: Service Date/Time: Friday, December 02, 2016 08:33 - CONCLUSION: Uncomplicated CT guided biopsy of the right kidney for function. Mustapha Vela Jr., MD Catheter Placement X-Ray 11/28/16 0000 Signed Impressions: Service Date/Time: Monday, November 28, 2016 15:57 - CONCLUSION: Uncomplicated PermaCath placement as above. Mustapha Vela Jr., MD Renal Ultrasound 11/22/16 0000 Signed Impressions: Service Date/Time: Tuesday, November 22, 2016 17:14 - CONCLUSION: Mild pelvocaliectasis right kidney not present previously. Obdulia Garcia MD Tubes & Lines: Perma-Cath Tubes & Lines Comment chest tube right. (SirenaMilla B. STAFF THERAPIST) Physical Exam General Appearance: No Acute Distress, Comfortable, Pale (SirenaMilla B. STAFF THERAPIST) Eyes Eye Exam: Pupils Equal, Pupils Reactive (SirenaMilla B. STAFF THERAPIST) Throat Throat Exam: Oral Mucosa [place] & Moist (SirenaMilla B. STAFF THERAPIST) Neck Neck Exam: Neck Supple (SirenaMilla B. STAFF THERAPIST) Pulmonary Resp Exam: No Distress, Crackles, Rhonchi, Decreased Bases Resp Remarks right side crackles; chest tube right (SirenaMilla B. STAFF THERAPIST) Cardiology CV Exam: Regular, Normal Sinus Rhythm, Good Perfusion (SirenaMilla B. STAFF THERAPIST) Gastrointestinal/Abdomen GI Exam: Soft, Non-Tender, Bowel Sounds Present, Positive Bowel Movement (SirenaMilla B. STAFF THERAPIST) Musculoskeletal MS Exam: Joints Intact, Normal Gait, Normal Tone, Good Strength (Philip Packon B. STAFF THERAPIST) Integumentary Skin Exam: Clear, Warm, Dry, Intact (SirenaMilla B. STAFF THERAPIST) Extremeties Extremities Exam: No Edema, Pedal Pulses Palpable (Milla Pack) Neurologic Neuro Exam: Alert, Awake, Oriented, Speech Clear, Moving All Extremities (Milla Pack) Psychiatric Psych Exam: Appropriate Responses (Milla Pack) Assessment/Plan Discussed Condition With: Patient Assessment Summary: SEJAL/Acute Renal Failure, Anemia of CKD Electrolyte Assessment: Hyperkalemia, Metabolic Acidosis Problem List: (1) Chronic kidney disease, stage 5 ICD Codes: N18.5 - Chronic kidney disease, stage 5 Plan: Patient likely has reached ESRD. s/p renal biopsy this admission. Of note he is non oliguric. Continue dialysis support MWF. Seen today during dialysis; dialyze on a 1K, 350 BFR; goal 500 ml He had appointment on 01/02 to discuss possible AVG placement outpatient; we will have vascular reconsult next week to discuss. replace electrolytes if needed Continue nutritional support with meals; on high protein diet The plan is for him to enter transitional HD program at [facility]. When he is approved he can be discharged, may take several weeks. Will keep in touch with case management regarding insurance; now he is being applied for medicare. (2) Hypokalemia ICD Codes: E87.6 - Hypokalemia Status: Acute Plan: He may have a proximal tubule disorder Follow labs, he is off daily replacement 24 hour urine for potassium shows he has renal wasting Of note he is hyperkalemic today (3) GI bleed ICD Codes: K92.2 - Gastrointestinal hemorrhage, unspecified Status: Acute Plan: GI has signed off; s/p EGD/colonoscopy may need capsule endoscopy outpatient (4) Pneumonia ICD Codes: J18.9 - Pneumonia, unspecified organism Status: Acute Plan: Pulmonary and CTS surgery are following, s/p bronchoscopy. No malignancies identified. Biopsy negative for pulmonary aspergillus fungal ball in right lung On prednisone, and Robitussin s/p right thoracotomy 12/30 with chest tube placement Continue supportive care (5) Hypocalcemia ICD Codes: E83.51 - Hypocalcemia Plan: Continue to reat hyperphosphatemia, on Sevelamer with meals. (6) Anemia ICD Codes: D64.9 - Anemia Status: Acute Plan: Transfuse as needed, Most recent 12/30 Continue high dose of Epogen with dialysis. (7) Acidosis ICD Codes: E87.2 - Acidosis Status: Acute Plan: corrected, monitor (Milla Pack) Plan patient was seen and examined during dialysis. Agree with above assessment and plan. He is s/p thoracotomy, lysis of adhesions, and decortication. Had biopsy of lung lesion. (Jim Zuluaga MD) Problem Qualifiers (1) GI bleed: (2) Pneumonia: Qualified Codes: J18.1 - Lobar pneumonia, unspecified organism (3) Anemia: Qualified Codes: N18.5 - Chronic kidney disease, stage 5; D63.1 - Anemia in chronic kidney disease Milla Pack Dec 31, 2016 09:45 Jim Zuluaga MD Dec 31, 2016 10:54
[2016-12-31] MEDS: EPOETIN ALFA 4,000 UNITS/ML VIAL IV PRN (10:41)
[2016-12-31] MEDS: EPOETIN ALFA 10,000 UNITS/ML VIAL IV PRN (10:41)
[2016-12-31] MEDS: HEPARIN SODIUM - IV 10,000 UNITS/10 ML VIAL PRN (10:42)
[2016-12-31] MEDS: GENTAMICIN SULFATE (DIALYSIS USE ONLY) 20 MG/2 ML VIAL IV PRN (10:42)
--- NOTE | 2016-12-31 11:57 | PD.CAR.PN ---
CVT Progress Note Subjective/Hospital Course: ct guided lung bx / no fungal elements Dr Claire Lott requesting re-eval for possible thoractomy discussed with pt right thoracotomy for pulmonary resection Dr Roth will discuss further with pt on Thursday tentatively scheduled for case 12/29 Dr Roth discussed surgery / risks / procedure with pt / he ia agreeable to proceed for surgery in am 12/30 Right thoracotomy with VATS assist, lysis of adhesions, decortication, pleural biopsies and cultures, right upper lobe biopsies and cultures Right upper lobe resection was considered, but not technically feasible due to the dense consolidation, inflammation, and frozen hilum associated. 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, GRAPHIC COORDINATOR dosing increase with breakthrough fentanly IV will need PT/ OOB ambulate pulm toileting path cultures pending 12/31 path and cultures pending Objective: GENERAL: A&O x 3 SKIN: Warm and dry. dressing D&I right postero lateral chest wall HEAD: Normocephalic. EYES: No scleral icterus. No injection or drainage. NECK: Supple, trachea midline. No JVD or lymphadenopathy. CARDIOVASCULAR: Regular rate and rhythm without murmurs, gallops, or rubs. RESPIRATORY: Breath sounds equal bilaterally. No accessory muscle use. chest tube to pleuravac/ wall suction , +1 air leak / drained 180cc sero sang drainage GASTROINTESTINAL: Abdomen soft, non-tender, nondistended. MUSCULOSKELETAL: No cyanosis, or edema. BACK: Nontender without obvious deformity. No CVA tenderness. Vital Signs Date Time Temp Pulse Resp B/P (MAP) Pulse Ox O2 Delivery O2 Flow Rate FiO2 12/31/16 09:10 92 Nasal Cannula 4.00 12/31/16 08:00 98.3 109 20 116/58 (77) 92 12/31/16 08:00 92 Nasal Cannula 4.00 12/31/16 06:00 105 12/31/16 05:41 18 12/31/16 05:40 18 12/31/16 05:00 108 12/31/16 04:00 107 12/31/16 03:23 94 Nasal Cannula 4.00 12/31/16 03:23 98.1 107 20 120/59 (79) 94 12/31/16 03:00 101 12/31/16 02:00 101 12/31/16 01:00 103 12/31/16 00:00 97 12/30/16 23:36 101 18 119/54 (75) 97 12/30/16 23:36 97 Nasal Cannula 4.00 12/30/16 23:00 98 12/30/16 22:00 96 12/30/16 22:00 18 12/30/16 21:00 100 12/30/16 20:45 96 Room Air 12/30/16 20:45 96 21 12/30/16 20:45 97.8 96 20 108/52 (70) 96 Arterial Line 12/30/16 20:28 20 12/30/16 20:00 96 12/30/16 19:00 90 12/30/16 18:30 97.6 92 23 94/50 (65) 99 Nasal Cannula 3 12/30/16 18:15 94 18 95/47 (63) 97 Nasal Cannula 3 12/30/16 18:00 96 16 99/65 (76) 97 Nasal Cannula 3 94/51 (65) 12/30/16 17:45 93 22 96/60 (72) 97 Nasal Cannula 3 104/57 (73) 12/30/16 17:40 Nasal Cannula 3 12/30/16 17:30 96 32 96/63 (74) 96 Simple Mask 5 98/55 (69) 12/30/16 17:15 100 30 118/64 (82) 99 Simple Mask 5 12/30/16 17:14 97.2 101 30 117/74 (88) 100 Simple Mask 5 Labs: Laboratory Tests Test 12/31/16 05:19 White Blood Count 8.5 TH/MM3 (4.0-11.0) Red Blood Count 2.64 MIL/MM3 (4.50-5.90) Hemoglobin 8.2 GM/DL (13.0-17.0) Hematocrit 24.6 % (39.0-51.0) Mean Corpuscular Volume 93.2 FL (80.0-100.0) Mean Corpuscular Hemoglobin 31.1 PG (27.0-34.0) Mean Corpuscular Hemoglobin Concent 33.3 % (32.0-36.0) Red Cell Distribution Width 16.1 % (11.6-17.2) Platelet Count 203 TH/MM3 (150-450) Mean Platelet Volume 8.5 FL (7.0-11.0) Neutrophils (%) (Auto) 67.3 % (16.0-70.0) Lymphocytes (%) (Auto) 21.5 % (9.0-44.0) Monocytes (%) (Auto) 10.4 % (0.0-8.0) Eosinophils (%) (Auto) 0.2 % (0.0-4.0) Basophils (%) (Auto) 0.6 % (0.0-2.0) Neutrophils # (Auto) 5.7 TH/MM3 (1.8-7.7) Lymphocytes # (Auto) 1.8 TH/MM3 (1.0-4.8) Monocytes # (Auto) 0.9 TH/MM3 (0-0.9) Eosinophils # (Auto) 0.0 TH/MM3 (0-0.4) Basophils # (Auto) 0.0 TH/MM3 (0-0.2) CBC Comment DIFF FINAL Differential Comment Blood Urea Nitrogen 58 MG/DL (7-18) Creatinine 6.58 MG/DL (0.60-1.30) Random Glucose 104 MG/DL (74-106) Calcium Level 8.2 MG/DL (8.5-10.1) Sodium Level 137 MEQ/L (136-145) Potassium Level 5.9 MEQ/L (3.5-5.1) Chloride Level 104 MEQ/L (98-107) Carbon Dioxide Level 24.9 MEQ/L (21.0-32.0) Anion Gap 8 MEQ/L (5-15) Estimat Glomerular Filtration Rate 9 ML/MIN (>89) Result Diagram: 12/31/1651812/31/16518 Telemetry: NSR (1) Pulmonary infiltrate in right lung on chest x-ray Plan: pulm toileting nebs, ezpap OOB ambulate consult PT pain control path cultures pending (2) Pneumonia Plan: post ABX/ ID signed off Problem Qualifiers (1) Pneumonia: Qualified Codes: J18.1 - Lobar pneumonia, unspecified organism Marly Heart Dec 31, 2016 11:57
[2016-12-31] MEDS: ASCORBIC ACID 500 MG TAB PO SCH ×2 (12:00→16:16)
[2016-12-31] MEDS: FERROUS SULFATE 325 MG (65 MG ELEMENTAL IRON) TAB PO SCH ×2 (12:00→16:16)
--- NOTE | 2016-12-31 14:28 | HHI.PR ---
Subjective Remarks patient feels short of breath c/o severe chest pain on right chest where chest tube is denies fevers/chills c/o of some cough denies diarrhea Objective Vitals Vital Signs Date Time Temp Pulse Resp B/P (MAP) Pulse Ox O2 Delivery O2 Flow Rate FiO2 12/31/16 14:00 113 20 111/56 (74) 92 12/31/16 09:10 92 Nasal Cannula 4.00 12/31/16 08:00 98.3 109 20 116/58 (77) 92 12/31/16 08:00 92 Nasal Cannula 4.00 12/31/16 06:00 105 12/31/16 05:41 18 12/31/16 05:40 18 12/31/16 05:00 108 12/31/16 04:00 107 12/31/16 03:23 94 Nasal Cannula 4.00 12/31/16 03:23 98.1 107 20 120/59 (79) 94 12/31/16 03:00 101 12/31/16 02:00 101 12/31/16 01:00 103 12/31/16 00:00 97 12/30/16 23:36 101 18 119/54 (75) 97 12/30/16 23:36 97 Nasal Cannula 4.00 12/30/16 23:00 98 12/30/16 22:00 96 12/30/16 22:00 18 12/30/16 21:00 100 12/30/16 20:45 96 Room Air 12/30/16 20:45 96 21 12/30/16 20:45 97.8 96 20 108/52 (70) 96 Arterial Line 12/30/16 20:28 20 12/30/16 20:00 96 12/30/16 19:00 90 12/30/16 18:30 97.6 92 23 94/50 (65) 99 Nasal Cannula 3 12/30/16 18:15 94 18 95/47 (63) 97 Nasal Cannula 3 12/30/16 18:00 96 16 99/65 (76) 97 Nasal Cannula 3 94/51 (65) 12/30/16 17:45 93 22 96/60 (72) 97 Nasal Cannula 3 104/57 (73) 12/30/16 17:40 Nasal Cannula 3 12/30/16 17:30 96 32 96/63 (74) 96 Simple Mask 5 98/55 (69) 12/30/16 17:15 100 30 118/64 (82) 99 Simple Mask 5 12/30/16 17:14 97.2 101 30 117/74 (88) 100 Simple Mask 5 I/O 12/30/16 12/30/16 12/30/16 12/31/16 12/31/16 12/31/16 07:00 15:00 23:00 07:00 15:00 23:00 Intake Total 680 ml 1700 ml 791 ml 102 ml Output Total 600 ml 100 ml 1250 ml 280 ml 600 ml Balance 80 ml -100 ml 450 ml 511 ml -498 ml Intake Oral 680 ml 0 ml 480 ml IV Total 0 ml 311 ml 102 ml Packed Cells 300 ml Other 1400 ml Output Urine Total 600 ml 100 ml 50 ml 100 ml Chest Tube Drainage Total 300 ml 180 ml Hemodialysis 600 ml Estimated Blood Loss 900 ml # Voids 0 # Bowel Movements 100 0 Result Diagram: 12/31/1651812/31/16518 Objective Remarks GENERAL: Awake and alert, thin, well-developed patient in moderate distress due to pain. SKIN: Warm and dry. HEAD: Normocephalic. Atraumatic. EYES: EOMI. No scleral icterus. No injection or drainage. ENT: No nasal bleeding or discharge. Mucous membranes pink and moist. NECK: Supple. Trachea midline. CARDIOVASCULAR: Regular rate and rhythm. S1, S2 noted. No murmur appreciated. RESPIRATORY: Decreased breath sounds on the left lung field with expiratory wheezing, expiratory wheezing on right lung field with some rhonchi, no crackles auscultated. GASTROINTESTINAL: Abdomen soft, non-tender, nondistended. Normoactive bowel sounds x4. MUSCULOSKELETAL: No obvious deformities. Extremities without clubbing, cyanosis , or edema. NEUROLOGICAL: Awake and alert. Able to move all extremities. Normal speech. PSYCHIATRIC: Appropriate mood and affect; insight and judgment normal. Procedures 11/28/2016 Right Internal Jugular Hemodialysis Catheter Tunneled Placement dual lumen 12/02/2016 Successful right renal biopsy for function. Gelfoam and thrombin utilized. No bleeding on post CT Lung Biopsy 12/23/16. Dialysis 12/24/16. Urinary Catheter: No Vascular Central Line Catheter: No A/P Problem List: (1) Sepsis ICD Code: A41.9 - Sepsis, unspecified organism Status: Resolved (2) Acute renal failure ICD Code: N17.9 - Acute kidney failure, unspecified Status: Acute (3) Pneumonia ICD Code: J18.9 - Pneumonia, unspecified organism Status: Acute (4) Coronary artery disease ICD Code: I25.10 - Coronary artery disease Status: Chronic (5) Anemia ICD Code: D64.9 - Anemia Status: Chronic (6) Hematochezia ICD Code: K92.1 - Melena Status: Resolved (7) Hypokalemia ICD Code: E87.6 - Hypokalemia Status: Resolved (8) Chronic kidney disease, stage 5 ICD Code: N18.5 - Chronic kidney disease, stage 5 Status: Chronic (9) AVF (arteriovenous fistula) ICD Code: I77.0 - Arteriovenous fistula, acquired Assessment and Plan Mr. Fonseca is a 55-year-old male patient with a known medical history of CAD s/ p CABG and CKD who presented to the ED with complaints of increasing dyspnea, generalized weakness, fevers and frequent diaphoresis x 2 weeks. Sepsis on admission suspect secondary to right multilobular pneumonia-resolved Dense cavitary pneumonia of the right lung - Pulmonary consulted and following. - Completed cefepime 1 g every 12 hours on 12/06/16 - Cardiothoracic Surgery and ID consulted. - Negative Aspergillus titers. Chronic obstructive pulmonary disease Respiratory failure Extensive right lung pneumonia with cavitation - CT chest 11/26 dense consolidative right upper lobe pneumonia with severe emphysema with cavitary foci within the consolidated areas, patchy right middle and lower lobe pneumonia - Pulmonary following - RUL BAL 12/05 negative for malignant cells - CT guided bx 12/23 negative for fungus, AFB or malignancy. Substantial fibrosis noted. - Sputum culture negative. Bronchial cultures negative. Negative Aspergillus titers. - Continue scheduled and PRN duonebs. - Continue Robitussin Ac prn cough - Supplemental O2 to keep sats >88%. - 12/31 Patient sp right thoracotomy, lysis of adhesions, decortication, pleural biopsy on 12/30. Patient with uncontrolled pain. Continue pain control with morphine OCCUPATIONAL NURSE pump and fentanyl 25 g IV push for breakthrough pain as prescribed by cardiac thoracic surgery. ESRD - Per nephrology will need usp dialysis (MWF). - Patient underwent AV fistula surgery on 12/10/2016. However, patient may need AV graft. - US kidney/renal/bladder ordered and reviewed showing mild pelvocaliectasis right kidney. 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 May need capsule endoscopy as outpt. GI has signed off. - Hgb 7.0 on 12/24, repeat H&H. Transfuse is 7.0 or less. - Epogen per Nephrology - 12/31 hemoglobin stable at 8.2 Hyperkalemia - 12/31 sp IV insulin + D50 and Kayexalate. Repeat BMP. COPD Exacerbation - Patient has BL wheezing on exam. Will start the patient on IV Solumedrol and oral Levaquin. Continue Duoneb inhaler treatments. Full code. DVT Prophylaxis: SCDs/TEDs., Ambulation. discussed with RN. Discharge Planning Patient still has chest tube, COPD exacerbation and uncontrolled pain. Problem Qualifiers (1) Sepsis: (2) Acute renal failure: Qualified Codes: N17.8 - Other acute kidney failure (3) Pneumonia: Qualified Codes: J18.1 - Lobar pneumonia, unspecified organism (4) Coronary artery disease: Qualified Codes: I25.119 - Atherosclerotic heart disease of [place] coronary artery with unspecified angina pectoris (5) Anemia: Qualified Codes: N18.5 - Chronic kidney disease, stage 5; D63.1 - Anemia in chronic kidney disease Juanjo Rush MD Dec 31, 2016 14:28
[2016-12-31] MEDS: POLYETHYLENE GLYCOL 17 GM PKG PO SCH (14:30)
[2016-12-31] MEDS: DOCUSATE SODIUM 100 MG CAP PO SCH ×2 (14:30→20:08)
[2016-12-31] MEDS: ACETAMINOPHEN/HYDROcodone 325 MG/5 MG TAB PO PRN (14:30)
[2016-12-31] MEDS: RESP: ALBUTEROL 2.5 MG/IPRATROPIUM 0.5 MG NEB (PRN) NEB (15:54)
[2016-12-31] MEDS ORDERED: LEVOFLOXACIN 500 MG TAB PO SCH (16:00)
[2016-12-31] MEDS: methylPREDNISolone SOD SUCC 40 MG/1 ML VIAL IV PUSH SCH ×2 (16:16→21:25)
[2016-12-31 17:20] LABS: BICARBONATE 29.6 MEQ/L (21.0-32.0); POTASSIUM 4.2 MEQ/L (3.5-5.1)
--- NOTE | 2016-12-31 18:24 | HHI.PR ---
Subjective Remarks Went for a Right Thoracotomy and right Upper lobe biopsies and Decortication..No fever . C/O pain along chest wall. CT chest shows a RUL Cavity with a poss Fungus Ball. Objective Vital Signs Date Time Temp Pulse Resp B/P (MAP) Pulse Ox O2 Delivery O2 Flow Rate FiO2 12/31/16 18:02 121 12/31/16 17:00 120 12/31/16 16:25 98.0 111 20 107/59 (75) 92 12/31/16 16:25 92 Nasal Cannula 4.00 12/31/16 16:00 108 12/31/16 15:54 95 Nasal Cannula 4.00 12/31/16 15:00 115 12/31/16 14:39 16 12/31/16 14:33 18 12/31/16 14:00 114 12/31/16 14:00 113 20 111/56 (74) 92 12/31/16 09:10 92 Nasal Cannula 4.00 12/31/16 08:00 98.3 109 20 116/58 (77) 92 12/31/16 08:00 92 Nasal Cannula 4.00 12/31/16 06:00 105 12/31/16 05:41 18 12/31/16 05:40 18 12/31/16 05:00 108 12/31/16 04:00 107 12/31/16 03:23 94 Nasal Cannula 4.00 12/31/16 03:23 98.1 107 20 120/59 (79) 94 12/31/16 03:00 101 12/31/16 02:00 101 12/31/16 01:00 103 12/31/16 00:00 97 12/30/16 23:36 101 18 119/54 (75) 97 12/30/16 23:36 97 Nasal Cannula 4.00 12/30/16 23:00 98 12/30/16 22:00 96 12/30/16 22:00 18 12/30/16 21:00 100 12/30/16 20:45 96 Room Air 12/30/16 20:45 96 21 12/30/16 20:45 97.8 96 20 108/52 (70) 96 Arterial Line 12/30/16 20:28 20 12/30/16 20:00 96 12/30/16 19:00 90 12/30/16 18:30 97.6 92 23 94/50 (03) 99 Nasal Cannula 3 I/O 12/30/16 12/30/16 12/30/16 12/31/16 12/31/16 12/31/16 07:00 15:00 23:00 07:00 15:00 23:00 Intake Total 680 ml 1700 ml 791 ml 102 ml Output Total 600 ml 100 ml 1250 ml 280 ml 600 ml Balance 80 ml -100 ml 450 ml 511 ml -498 ml Intake Oral 680 ml 0 ml 480 ml IV Total 0 ml 311 ml 102 ml Packed Cells 300 ml Other 1400 ml Output Urine Total 600 ml 100 ml 50 ml 100 ml Chest Tube Drainage Total 300 ml 180 ml Hemodialysis 600 ml Estimated Blood Loss 900 ml # Voids 0 # Bowel Movements 100 0 Result Diagram: 12/31/16 0519 12/31/16 1635 Objective Remarks GENERAL: This is a middle-aged averagely built white male who is alert and in some distress . HEAD, EYES, EARS, NOSE, THROAT: Head normocephalic. The pupils are reactive. Throat is clear. NECK: The neck is supple. No bruits. No thyroid enlargement. No lymphadenopathy. CHEST: Equal movements. Coarse wheeze heard over Right chest and Crackles. HEART: Heart sounds are regular. S1 and S2. No murmur. ABDOMEN: Abdomen is soft and protuberant. No masses or tenderness. EXTREMITIES: No edema. No calf tenderness. NEUROLOGIC: Reflexes are normal. No focal deficits. SKIN: Warm. Assessment and Plan Assessment and Plan IMPRESSION: 1. Extensive right lung pneumonia with Cavitation and Poss Fungal Infection 2. Chronic kidney disease with acute renal failure. 3. COPD with emphysema and chronic bronchitis. 4. History of coronary artery bypass grafting. 5. Right thoracotomy and Biopsy and decortication Plan : 1.Chest Xray, CBC,BMP in am 2. Cont O2 at 4 L. 3. Nebs qid , duoneb 4. ASSISTED LIVING COORDINATOR for pain control 5. IS at bedside q3h. 6. Dialysis as planned 7. Symbicort 160/4.5 mcg , 2 puffs bid Alison Wilson MD Dec 31, 2016 18:24
[2016-12-31] MEDS: PANTOPRAZOLE SOD 40 MG DELAYED RELEASE TAB PO SCH (20:08)
[2016-12-31] MEDS ORDERED: LACTOBACILLUS ACIDOPHILUS TAB PO SCH (21:00)
[2016-12-31] MEDS: SODIUM CHLOR 0.9% 1000 ML INJ 1,000 ML IV SCH (21:25)
[2016-12-31] MEDS: TEMAZEPAM 15 MG CAP PO PRN (23:22)
[2016-12-31] MEDS: diphenhydrAMINE HCL 25 MG CAP PO PRN (23:23)
[2017-01-01] VITALS (28 sets, daily range): BP systolic 107–134; BP diastolic 67–83; PULSE 84–114; RESP 18–20; TEMP 97.5–99.2; O2SAT 91–97
[2017-01-01] MEDS: MORPHINE SULFATE 30 MG/30 ML PCA IV SCH ×2 (00:25→06:16)
[2017-01-01] MEDS: PCA - TOTAL MG MORPHINE DELIVERED PER SHIFT SCH ×3 (05:53→21:06)
[2017-01-01] MEDS: methylPREDNISolone SOD SUCC 40 MG/1 ML VIAL IV PUSH SCH ×2 (05:53→14:02)
[2017-01-01] MEDS: RESP: BUDESONIDE 0.5 MG/2 ML NEB NEB SCH ×2 (07:35→20:10)
[2017-01-01] MEDS: POLYETHYLENE GLYCOL 17 GM PKG PO SCH (09:00)
[2017-01-01] MEDS: SODIUM CHLORIDE 0.9% FLUSH 5 ML FLUSH IV FLUSH SCH ×2 (09:00→21:00)
[2017-01-01] MEDS: HYDROCORTISONE ACETATE 25 MG SUPP RECTAL SCH ×3 (09:00→21:00)
[2017-01-01] MEDS: DOCUSATE SODIUM 100 MG CAP PO SCH ×2 (09:08→21:00)
[2017-01-01] MEDS: SEVELAMER CARBONATE 800 MG TAB PO SCH ×3 (09:08→17:28)
[2017-01-01] MEDS: LACTOBACILLUS ACIDOPHILUS TAB PO SCH ×2 (09:09→21:05)
[2017-01-01] MEDS: CHOLECALCIFEROL (VIT D3) 1000 UNIT TAB PO SCH (09:09)
--- NOTE | 2017-01-01 10:19 | RADRPT ---
EXAM DATE/TIME: 01/01/2017 09:19 [facility] COMPARISON: CHEST SINGLE AP, December 31, 2016, 5:21. INDICATIONS : Chest tube r/o pneumothorax, short of breath. MEDICAL HISTORY : Hypertension. Chronic obstructive pulmonary disease. Cardiovascular disease. renal failure SURGICAL HISTORY : CABG. chest tube ENCOUNTER: Initial ACUITY: 1 month PAIN SCORE: 2/10 LOCATION: Bilateral chest FINDINGS: Single AP view of the chest. Right-sided dual-lumen subclavian central venous catheter remains in marci ce. Prominent right mid to upper lung zone opacity unchanged. Right-sided pneumothorax is again seen at lung base with no significant interval change. Subcutaneous emphysema also again seen on the right . Left lung is clear. CONCLUSION: No significant interval change with persistent basilar right pneumothorax. Right-sided chest tube rem ains in place. Prominent right lung opacity again seen. Juvencio Lo MD on January 01, 2017 at 10:16 Board Certified Radiologist. This report was verified electronically.
[2017-01-01] MEDS: FERROUS SULFATE 325 MG (65 MG ELEMENTAL IRON) TAB PO SCH ×2 (12:18→17:28)
[2017-01-01] MEDS: ASCORBIC ACID 500 MG TAB PO SCH ×2 (12:18→17:27)
--- NOTE | 2017-01-01 13:00 | HHI.NPPN ---
Subjective General Problems: Anemia Renal Failure: Acute Interval History Sitting up in a chair. Feels better today. However lung sounds very course on right, became hypoxic earlier. (Milla Pack) Review of Systems General Constitutional: Fatigue (Milla Pack) Respiratory Lungs: Cough, Sputum Respiratory Remarks slightly hemoptysis (Milla Pack) Musculoskeletal MS: Pain/Stiffness (Milla Pack) Objective Data Data Vital Signs Date Time Temp Pulse Resp B/P (MAP) Pulse Ox O2 Delivery O2 Flow Rate FiO2 01/01/17 12:02 114 01/01/17 11:00 95 Nasal Cannula 5.00 Humidified 01/01/17 11:00 97.7 99 19 113/73 (86) 95 01/01/17 11:00 90 01/01/17 10:00 98 01/01/17 09:00 110 01/01/17 08:00 114 01/01/17 07:39 95 Simple Mask 6.00 01/01/17 07:15 108 01/01/17 07:15 91 Nasal Cannula 5.00 Humidified 01/01/17 07:15 99.2 103 20 111/75 (87) 91 01/01/17 06:16 97 Simple Mask 6.00 01/01/17 06:16 18 01/01/17 06:00 96 Simple Mask 9.00 01/01/17 06:00 106 01/01/17 05:53 18 01/01/17 05:51 89 Nasal Cannula 6.00 01/01/17 05:50 70 Room Air 01/01/17 05:00 104 01/01/17 04:00 98 01/01/17 03:45 98.0 99 18 107/67 (80) 93 01/01/17 03:45 93 Nasal Cannula 5.00 01/01/17 03:00 101 01/01/17 02:00 104 01/01/17 01:00 104 01/01/17 00:25 16 01/01/17 00:00 105 12/31/16 23:15 93 Nasal Cannula 5.00 12/31/16 23:00 88 Nasal Cannula 4.00 12/31/16 23:00 103 12/31/16 23:00 98.4 104 18 117/70 (86) 93 12/31/16 22:00 104 12/31/16 21:26 18 12/31/16 21:00 104 12/31/16 20:00 110 12/31/16 19:45 93 Nasal Cannula 4.00 12/31/16 19:45 98.9 110 18 121/56 (77) 93 12/31/16 19:00 114 12/31/16 18:02 121 12/31/16 17:00 120 12/31/16 16:25 98.0 111 20 107/59 (75) 92 12/31/16 16:25 92 Nasal Cannula 4.00 12/31/16 16:00 108 12/31/16 15:54 95 Nasal Cannula 4.00 12/31/16 15:00 115 12/31/16 14:39 16 12/31/16 14:33 18 12/31/16 14:00 114 12/31/16 14:00 113 20 111/56 (74) 92 (Milla Pack) -: 12/31/16 0519 12/31/16 1635 Imaging Last Impressions Chest X-Ray 01/01/17 0000 Signed Impressions: Service Date/Time: December 09:19 - CONCLUSION: No significant interval change with persistent basilar right pneumothorax. Right-sided chest tube remains in place. Prominent right lung opacity again seen. Juvencio Lo MD Lung Biopsy CT 12/23/16 0000 Signed Impressions: Service Date/Time: Friday, December 23, 2016 09:37 - CONCLUSION: Uncomplicated CT guided biopsy/aspiration. Broderick Ndiaye MD Chest CT 12/17/16 1715 Signed Impressions: Service Date/Time: Saturday, December 17, 2016 17:51 - CONCLUSION: 1. Dense consolidation persists in the right upper lobe with air bronchograms and air filled cystic spaces. Debris versus possible fungus ball in one of the cystic spaces at the apex which is new. Multi-organism pneumonia suspected. 2. Non-consolidative patchy infiltrate of the right middle and lower lobes not significantly changed. 3. Decreased pleural effusion on the right, now trace. Completely resolved pleural effusion on the left. 4. Previous median sternotomy. Caio Wray MD Upper Extremity Ultrasound 12/04/16 0000 Signed Impressions: Service Date/Time: November 18:26 - CONCLUSION: Venous mapping as delineated above. The cephalic veins are abnormal bilaterally. Caio Villalpando MD Renal Biopsy CT 12/02/16 1350 Signed Impressions: Service Date/Time: Friday, December 02, 2016 08:33 - CONCLUSION: Uncomplicated CT guided biopsy of the right kidney for function. Mustapha Vela Jr., MD Catheter Placement X-Ray 11/28/16 0000 Signed Impressions: Service Date/Time: Monday, November 28, 2016 15:57 - CONCLUSION: Uncomplicated PermaCath placement as above. Mustapha Vela Jr., MD Renal Ultrasound 11/22/16 0000 Signed Impressions: Service Date/Time: Tuesday, November 22, 2016 17:14 - CONCLUSION: Mild pelvocaliectasis right kidney not present previously. Obdulia Garcia MD Tubes & Lines: Perma-Cath Tubes & Lines Comment chest tube right. (Milla Pack B. ABBY) Physical Exam General Appearance: No Acute Distress, Comfortable (Milla Pack. CONSULTING SALES MANAGER) Eyes Eye Exam: Pupils Equal, Pupils Reactive (Milla Pack B. CONSULTING SALES MANAGER) Throat Throat Exam: Oral Mucosa [place] & Moist (Milla Pack B. CONSULTING SALES MANAGER) Neck Neck Exam: Neck Supple (Milla Pack B. CONSULTING SALES MANAGER) Pulmonary Resp Exam: No Distress, Crackles, Rhonchi, Decreased Bases Resp Remarks course right side lung sounds; chest tube right (Milla Pack B. CONSULTING SALES MANAGER) Cardiology CV Exam: Regular, Normal Sinus Rhythm, Good Perfusion (Milla Pack B. CONSULTING SALES MANAGER) Gastrointestinal/Abdomen GI Exam: Soft, Non-Tender, Bowel Sounds Present, Positive Bowel Movement (Milla Pack B. CONSULTING SALES MANAGER) Musculoskeletal MS Exam: Joints Intact, Normal Gait, Normal Tone, Good Strength (Milla Pack B. CONSULTING SALES MANAGER) Integumentary Skin Exam: Clear, Warm, Dry, Intact (Milla Pack B. CONSULTING SALES MANAGER) Extremeties Extremities Exam: No Edema, Pedal Pulses Palpable (Milla Pack B. CONSULTING SALES MANAGER) Neurologic Neuro Exam: Alert, Awake, Oriented, Speech Clear, Moving All Extremities (Milla Pack B. CONSULTING SALES MANAGER) Psychiatric Psych Exam: Appropriate Responses (Milla Pack) Assessment/Plan Discussed Condition With: Patient Assessment Summary: SEJAL/Acute Renal Failure, Anemia of CKD Electrolyte Assessment: Hyperkalemia, Metabolic Acidosis Problem List: (1) Chronic kidney disease, stage 5 ICD Codes: N18.5 - Chronic kidney disease, stage 5 Status: Chronic Plan: Patient likely has reached ESRD. s/p renal biopsy this admission. Of note he is non oliguric. Continue dialysis support MWF. 600 ml UF yesterday He had appointment on 01/02 to discuss possible AVG placement outpatient; we will have vascular reconsult next week to discuss. replace electrolytes if needed Continue nutritional support with meals; on high protein diet Stop IVF, he is tolerating oral fluids and becomes short of breath The plan is for him to enter transitional HD program at [place]. When he is approved he can be discharged, may take several weeks. Will keep in touch with case management regarding insurance; now he is being applied for medicare. (2) Hypokalemia ICD Codes: E87.6 - Hypokalemia Status: Resolved Plan: corrected; thought to have a proximal tubule disorder Follow labs, he is off daily replacement 24 hour urine for potassium shows he has renal wasting (3) GI bleed ICD Codes: K92.2 - Gastrointestinal hemorrhage, unspecified Status: Acute Plan: GI has signed off; s/p EGD/colonoscopy may need capsule endoscopy outpatient (4) Pneumonia ICD Codes: J18.9 - Pneumonia, unspecified organism Status: Acute Plan: Pulmonary and CTS surgery are following, s/p bronchoscopy. No malignancies identified. Biopsy negative for pulmonary aspergillus fungal ball in right lung s/p right thoracotomy 12/30 with chest tube placement Continue supportive care (5) Hypocalcemia ICD Codes: E83.51 - Hypocalcemia Plan: Continue to reat hyperphosphatemia, on Sevelamer with meals. (6) Anemia ICD Codes: D64.9 - Anemia Status: Chronic Plan: Transfuse as needed, Most recent 12/30 Continue high dose of Epogen with dialysis. (7) Acidosis ICD Codes: E87.2 - Acidosis Status: Acute Plan: corrected, monitor (Milla Pack) Plan patient was seen and examined. Agree with above assessment and plan. (Jim Zuluaga MD) Problem Qualifiers (1) GI bleed: (2) Pneumonia: Qualified Codes: J18.1 - Lobar pneumonia, unspecified organism (3) Anemia: Qualified Codes: N18.5 - Chronic kidney disease, stage 5; D63.1 - Anemia in chronic kidney disease Milla Pack Jan 01, 2017 13:00 Jim Zuluaga MD Jan 01, 2017 16:47
--- NOTE | 2017-01-01 14:43 | PD.CAR.PN ---
CVT Progress Note Subjective/Hospital Course: ct guided lung bx / no fungal elements Dr Claire Lott requesting re-eval for possible thoractomy discussed with pt right thoracotomy for pulmonary resection Dr Roth will discuss further with pt on Thursday tentatively scheduled for case 12/29 Dr Roth discussed surgery / risks / procedure with pt / he ia agreeable to proceed for surgery in am 12/30 Right thoracotomy with VATS assist, lysis of adhesions, decortication, pleural biopsies and cultures, right upper lobe biopsies and cultures Right upper lobe resection was considered, but not technically feasible due to the dense consolidation, inflammation, and frozen hilum associated. 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, REGISTERED NURSE MATERNAL CHILD dosing increase with breakthrough fentanly IV will need PT/ OOB ambulate pulm toileting path cultures pending 12/31 path and cultures pending 01/01 path pending no growth in cultures to date pain control improved, has ONQ pump and morphine REGISTERED NURSE MATERNAL CHILD on GI motility meds ambulate/ OOB + 1 air leak in chest tube Objective: GENERAL: SKIN: Warm and dry. incision intact and well approximated to right postero lateral chest wall HEAD: Normocephalic. EYES: No scleral icterus. No injection or drainage. NECK: Supple, trachea midline. No JVD or lymphadenopathy. CARDIOVASCULAR: Regular rate and rhythm without murmurs, gallops, or rubs. RESPIRATORY: Breath sounds equal bilaterally. No accessory muscle use. diminished in bases, chest tube to wall suction +1 air leak drained 150cc/ 12 hrs GASTROINTESTINAL: Abdomen soft, non-tender, nondistended. MUSCULOSKELETAL: No cyanosis, or edema. BACK: Nontender without obvious deformity. No CVA tenderness. Vital Signs Date Time Temp Pulse Resp B/P (MAP) Pulse Ox O2 Delivery O2 Flow Rate FiO2 01/01/17 14:00 103 01/01/17 14:00 20 01/01/17 13:00 88 01/01/17 12:02 114 01/01/17 11:00 95 Nasal Cannula 5.00 Humidified 01/01/17 11:00 97.7 99 19 113/73 (86) 95 01/01/17 11:00 90 01/01/17 10:00 98 01/01/17 09:00 110 01/01/17 08:00 114 01/01/17 07:39 95 Simple Mask 6.00 01/01/17 07:15 108 01/01/17 07:15 91 Nasal Cannula 5.00 Humidified 01/01/17 07:15 99.2 103 20 111/75 (87) 91 01/01/17 06:16 97 Simple Mask 6.00 01/01/17 06:16 18 01/01/17 06:00 96 Simple Mask 9.00 01/01/17 06:00 106 01/01/17 05:53 18 01/01/17 05:51 89 Nasal Cannula 6.00 01/01/17 05:50 70 Room Air 01/01/17 05:00 104 01/01/17 04:00 98 01/01/17 03:45 98.0 99 18 107/67 (80) 93 01/01/17 03:45 93 Nasal Cannula 5.00 01/01/17 03:00 101 01/01/17 02:00 104 01/01/17 01:00 104 01/01/17 00:25 16 01/01/17 00:00 105 12/31/16 23:15 93 Nasal Cannula 5.00 12/31/16 23:00 88 Nasal Cannula 4.00 12/31/16 23:00 103 12/31/16 23:00 98.4 104 18 117/70 (86) 93 12/31/16 22:00 104 12/31/16 21:26 18 12/31/16 21:00 104 12/31/16 20:00 110 12/31/16 19:45 93 Nasal Cannula 4.00 12/31/16 19:45 98.9 110 18 121/56 (77) 93 12/31/16 19:00 114 12/31/16 18:02 121 12/31/16 17:00 120 12/31/16 16:25 98.0 111 20 107/59 (75) 92 12/31/16 16:25 92 Nasal Cannula 4.00 12/31/16 16:00 108 12/31/16 15:54 95 Nasal Cannula 4.00 12/31/16 15:00 115 12/31/16 14:39 16 Result Diagram: 12/31/16 0519 12/31/16 1635 (1) Pulmonary infiltrate in right lung on chest x-ray Plan: pulm toileting nebs, ezpap OOB ambulate consult PT pain control cultures neg to date path pending (2) Pneumonia Plan: post ABX/ ID signed off Problem Qualifiers (1) Pneumonia: Qualified Codes: J18.1 - Lobar pneumonia, unspecified organism Marly Heart Jan 01, 2017 14:43
--- NOTE | 2017-01-01 15:23 | HHI.PR ---
Subjective Remarks No acute events reported per nursing overnight. Patient himself says he is breathing better since the steroids were started Objective Vital Signs Date Time Temp Pulse Resp B/P (MAP) Pulse Ox O2 Delivery O2 Flow Rate FiO2 01/01/17 14:00 103 01/01/17 14:00 20 01/01/17 13:00 88 01/01/17 12:02 114 01/01/17 11:00 95 Nasal Cannula 5.00 Humidified 01/01/17 11:00 97.7 99 19 113/73 (86) 95 01/01/17 11:00 90 01/01/17 10:00 98 01/01/17 09:00 110 01/01/17 08:00 114 01/01/17 07:39 95 Simple Mask 6.00 01/01/17 07:15 108 01/01/17 07:15 91 Nasal Cannula 5.00 Humidified 01/01/17 07:15 99.2 103 20 111/75 (87) 91 01/01/17 06:16 97 Simple Mask 6.00 01/01/17 06:16 18 01/01/17 06:00 96 Simple Mask 9.00 01/01/17 06:00 106 01/01/17 05:53 18 01/01/17 05:51 89 Nasal Cannula 6.00 01/01/17 05:50 70 Room Air 01/01/17 05:00 104 01/01/17 04:00 98 01/01/17 03:45 98.0 99 18 107/67 (80) 93 01/01/17 03:45 93 Nasal Cannula 5.00 01/01/17 03:00 101 01/01/17 02:00 104 01/01/17 01:00 104 01/01/17 00:25 16 01/01/17 00:00 105 12/31/16 23:15 93 Nasal Cannula 5.00 12/31/16 23:00 88 Nasal Cannula 4.00 12/31/16 23:00 103 12/31/16 23:00 98.4 104 18 117/70 (86) 93 12/31/16 22:00 104 12/31/16 21:26 18 12/31/16 21:00 104 12/31/16 20:00 110 12/31/16 19:45 93 Nasal Cannula 4.00 12/31/16 19:45 98.9 110 18 121/56 (77) 93 12/31/16 19:00 114 12/31/16 18:02 121 12/31/16 17:00 120 12/31/16 16:25 98.0 111 20 107/59 (75) 92 12/31/16 16:25 92 Nasal Cannula 4.00 12/31/16 16:00 108 12/31/16 15:54 95 Nasal Cannula 4.00 I/O 12/31/16 12/31/16 12/31/16 01/01/17 01/01/17 01/01/17 07:00 15:00 23:00 07:00 15:00 23:00 Intake Total 791 ml 102 ml 1836 ml 789 ml Output Total 280 ml 600 ml 647 ml 350 ml Balance 511 ml -498 ml 1189 ml 439 ml Intake Oral 480 ml 1060 ml 480 ml IV Total 311 ml 102 ml 776 ml 309 ml Output Urine Total 100 ml 388 ml 200 ml Chest Tube Drainage Total 180 ml 259 ml 150 ml Hemodialysis 600 ml # Bowel Movements 0 0 0 Result Diagram: 12/31/16 0519 12/31/16 1635 Objective Remarks Chest tube in place over right chest wall, draining well Unlabored breathing Has very junky breath sounds on the right, scattered rhonchi on the left On nasal cannula, no cyanosis no clubbing A/P Assessment and Plan Mr. Fonseca is a 55-year-old male patient with a known medical history of CAD s/ p CABG and CKD who presented to the ED with complaints of increasing dyspnea, generalized weakness, fevers and frequent diaphoresis x 2 weeks. Dense cavitary pneumonia of the right lung - Pulmonary following. - Completed cefepime 1 g every 12 hours on 12/06/16 - Cardiothoracic Surgery and ID consulted. - Negative Aspergillus titers. Chronic obstructive pulmonary disease Extensive right lung pneumonia with cavitation - CT chest 11/26 dense consolidative right upper lobe pneumonia with severe emphysema with cavitary foci within the consolidated areas, patchy right middle and lower lobe pneumonia - Pulmonary following - RUL BAL 12/05 negative for malignant cells - CT guided bx 12/23 negative for fungus, AFB or malignancy. Substantial fibrosis noted. - Sputum culture negative. Bronchial cultures negative. Negative Aspergillus titers. - 12/31 Patient sp right thoracotomy, lysis of adhesions, decortication, pleural biopsy on 12/30. Patient with uncontrolled pain. Continue pain control with morphine SENIOR WAREHOUSE CLERK pump and fentanyl 25 g IV push for breakthrough pain as prescribed by cardiac thoracic surgery. ESRD - Per nephrology will need aquatics lifeguard dialysis (MWF). - Patient underwent AV fistula surgery on 12/10/2016. However, patient may need AV graft. - US kidney/renal/bladder ordered and reviewed showing mild pelvocaliectasis right kidney. 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 - Epogen per Nephrology - 12/31 hemoglobin stable at 8.2 Hyperkalemia - 12/31 sp IV insulin + D50 and Kayexalate. Repeat BMP. COPD Exacerbation - IV Solumedrol and oral Levaquin. Continue Duoneb inhaler treatments. Full code. DVT Prophylaxis: SCDs/TEDs., Ambulation. Joselito Nava MD Jan 01, 2017 15:23
[2017-01-01] MEDS: PANTOPRAZOLE SOD 40 MG DELAYED RELEASE TAB PO SCH (21:05)
[2017-01-02] VITALS (28 sets, daily range): BP systolic 130–151; BP diastolic 77–91; PULSE 84–106; RESP 18–21; TEMP 97.8–98.5; O2SAT 92–98
[2017-01-02] MEDS: methylPREDNISolone SOD SUCC 40 MG/1 ML VIAL IV PUSH SCH ×2 (01:41→05:52)
[2017-01-02] MEDS: PCA - TOTAL MG MORPHINE DELIVERED PER SHIFT SCH ×2 (05:53→16:57)
[2017-01-02] MEDS: RESP: BUDESONIDE 0.5 MG/2 ML NEB NEB SCH ×2 (07:49→20:22)
[2017-01-02] MEDS: SEVELAMER CARBONATE 800 MG TAB PO SCH ×3 (08:00→18:39)
[2017-01-02] MEDS: SODIUM CHLORIDE 0.9% FLUSH 5 ML FLUSH IV FLUSH SCH ×2 (09:00→23:23)
[2017-01-02] MEDS: HYDROCORTISONE ACETATE 25 MG SUPP RECTAL SCH ×3 (09:00→21:00)
[2017-01-02] MEDS: GENTAMICIN SULFATE (DIALYSIS USE ONLY) 20 MG/2 ML VIAL IV PRN (10:35)
[2017-01-02] MEDS: EPOETIN ALFA 10,000 UNITS/ML VIAL IV PRN (10:35)
--- NOTE | 2017-01-02 12:44 | RADRPT ---
EXAM DATE/TIME: 01/02/2017 12:15 [facility] COMPARISON: CHEST SINGLE AP, January 01, 2017, 9:19. INDICATIONS : Follow up pneumothorax. MEDICAL HISTORY : Hypertension. Chronic obstructive pulmonary disease. Cardiovascular disease. Renal failure. SURGICAL HISTORY : CABG. Chest tube ENCOUNTER: Initial ACUITY: 1 month PAIN SCORE: 6/10 LOCATION: Bilateral chest FINDINGS: Consolidation is present in the right lung with right chest tube present. Dialysis catheter is in go od position. Minimal pneumothorax persists. Increasing right subcutaneous emphysema is present. Le ft lung is clear. CONCLUSION: Pneumothorax is stable. There is increasing subcutaneous emphysema. Dense consolidative changes in the right lung. Orlin Willingham MD FACR on January 02, 2017 at 12:39 Board Certified Radiologist. This report was verified electronically.
--- NOTE | 2017-01-02 12:46 | HHI.PR ---
Subjective Remarks Went for a Right Thoracotomy and right Upper lobe biopsies and Decortication.Has a leak from chest tube. C/O pain along chest wall. CT chest shows a RUL Cavity with a poss Fungus Ball.Has some subcutaneous emphysema Objective Vital Signs Date Time Temp Pulse Resp B/P (MAP) Pulse Ox O2 Delivery O2 Flow Rate FiO2 01/02/17 08:10 97.9 95 21 151/81 (104) 94 01/02/17 08:10 95 01/02/17 08:10 94 Nasal Cannula 5.00 Humidified 01/02/17 07:53 98 Nasal Cannula 5.00 01/02/17 06:47 98.4 95 18 137/85 (102) 95 01/02/17 06:00 90 01/02/17 05:53 16 01/02/17 05:00 95 01/02/17 04:00 90 01/02/17 03:24 94 Nasal Cannula 4.00 Humidified 01/02/17 03:00 97 01/02/17 02:00 86 01/02/17 01:00 106 01/02/17 00:30 98.1 93 19 139/89 (106) 96 01/02/17 00:00 86 01/01/17 23:00 97 01/01/17 23:00 91 Nasal Cannula 4.00 Humidified 01/01/17 22:00 98 01/01/17 21:06 16 01/01/17 21:00 98 01/01/17 20:30 91 Nasal Cannula 4.00 Humidified 01/01/17 20:30 97.5 105 19 134/83 (100) 91 01/01/17 20:10 97 Nasal Cannula 4.00 01/01/17 20:00 96 01/01/17 19:00 101 01/01/17 18:00 107 01/01/17 17:00 84 01/01/17 16:00 110 01/01/17 15:00 92 Nasal Cannula 4.00 Humidified 01/01/17 15:00 98.0 105 19 111/67 (82) 92 01/01/17 15:00 113 01/01/17 14:00 103 01/01/17 14:00 20 01/01/17 13:00 88 I/O 01/01/17 01/01/17 01/01/17 01/02/17 01/02/17 01/02/17 07:00 15:00 23:00 07:00 15:00 23:00 Intake Total 789 ml 1650 ml 720 ml Output Total 350 ml 790 ml 890 ml 1800 ml Balance 439 ml 860 ml -170 ml -1800 ml Intake Oral 480 ml 960 ml 720 ml IV Total 309 ml 690 ml Output Urine Total 200 ml 600 ml 700 ml Chest Tube Drainage Total 150 ml 190 ml 190 ml Hemodialysis 1800 ml # Bowel Movements 0 0 Result Diagram: 12/31/16 0519 12/31/16 1635 Objective Remarks GENERAL: This is a middle-aged averagely built white male who is alert and in some distress . HEAD, EYES, EARS, NOSE, THROAT: Head normocephalic. The pupils are reactive. Throat is clear. NECK: The neck is supple. No bruits. No thyroid enlargement. No lymphadenopathy. CHEST: Equal movements. Coarse wheeze heard over Right chest and occ Crackles. HEART: Heart sounds are regular. S1 and S2. No murmur. ABDOMEN: Abdomen is soft and protuberant. No masses or tenderness. EXTREMITIES: No edema. No calf tenderness. NEUROLOGIC: Reflexes are normal. No focal deficits. SKIN: Warm. Assessment and Plan Assessment and Plan IMPRESSION: 1. Extensive right lung pneumonia with Cavitation and Poss Fungal Infection 2. Chronic kidney disease with acute renal failure. 3. COPD with emphysema and chronic bronchitis. 4. History of coronary artery bypass grafting. 5. Right thoracotomy and Biopsy and decortication Plan : 1.Chest X ray, CBC,BMP in am 2. Cont O2 at 5 L. 3. Nebs qid , duoneb 4.Chest tube to wall suction. 5. IS at bedside q3h. 6. Dialysis as planned 7. Symbicort 160/4.5 mcg , 2 puffs bid Alison Wilson MD Jan 02, 2017 12:46
--- NOTE | 2017-01-02 13:07 | HHI.PR ---
Subjective Remarks RN reports. 6 beat V. tach noted last night. No changes in symptoms, patient says that his shortness of breath is about the same as yesterday, he says that he is desaturating more today. No echo in chart. In dialysis currently. Denies any chest pain or nausea/vomiting. Objective Vital Signs Date Time Temp Pulse Resp B/P (MAP) Pulse Ox O2 Delivery O2 Flow Rate FiO2 01/02/17 08:10 97.9 95 21 151/81 (104) 94 01/02/17 08:10 95 01/02/17 08:10 94 Nasal Cannula 5.00 Humidified 01/02/17 07:53 98 Nasal Cannula 5.00 01/02/17 06:47 98.4 95 18 137/85 (102) 95 01/02/17 06:00 90 01/02/17 05:53 16 01/02/17 05:00 95 01/02/17 04:00 90 01/02/17 03:24 94 Nasal Cannula 4.00 Humidified 01/02/17 03:00 97 01/02/17 02:00 86 01/02/17 01:00 106 01/02/17 00:30 98.1 93 19 139/89 (106) 96 01/02/17 00:00 86 01/01/17 23:00 97 01/01/17 23:00 91 Nasal Cannula 4.00 Humidified 01/01/17 22:00 98 01/01/17 21:06 16 01/01/17 21:00 98 01/01/17 20:30 91 Nasal Cannula 4.00 Humidified 01/01/17 20:30 97.5 105 19 134/83 (100) 91 01/01/17 20:10 97 Nasal Cannula 4.00 01/01/17 20:00 96 01/01/17 19:00 101 01/01/17 18:00 107 01/01/17 17:00 84 01/01/17 16:00 110 01/01/17 15:00 92 Nasal Cannula 4.00 Humidified 01/01/17 15:00 98.0 105 19 111/67 (82) 92 01/01/17 15:00 113 01/01/17 14:00 103 01/01/17 14:00 20 I/O 01/01/17 01/01/17 01/01/17 01/02/1717 9/29/17 07:00 15:00 23:00 07:00 15:00 23:00 Intake Total 789 ml 1650 ml 720 ml Output Total 350 ml 790 ml 890 ml 1800 ml Balance 439 ml 860 ml -170 ml -1800 ml Intake Oral 480 ml 960 ml 720 ml IV Total 309 ml 690 ml Output Urine Total 200 ml 600 ml 700 ml Chest Tube Drainage Total 150 ml 190 ml 190 ml Hemodialysis 1800 ml # Bowel Movements 0 0 Result Diagram: 12/31/16 0519 12/31/16 1635 Objective Remarks Chest tube in place over right chest wall, draining well mildly labored breathing today, wheezing heard diffusely On nasal cannula, no cyanosis no clubbing A/P Assessment and Plan Mr. Fonseca is a 55-year-old male patient with a known medical history of CAD s/ p CABG and CKD who presented to the ED with complaints of increasing dyspnea, generalized weakness, fevers and frequent diaphoresis x 2 weeks. Extensive right lung pneumonia with cavitation - CT chest 11/26 dense consolidative right upper lobe pneumonia with severe emphysema with cavitary foci within the consolidated areas, patchy right middle and lower lobe pneumonia - Pulmonary following, completed cefepime regimen. - RUL BAL 12/05 negative for malignant cells - CT guided bx 12/23 negative for fungus, AFB or malignancy. Substantial fibrosis noted. - Sputum culture negative. Bronchial cultures negative. Negative Aspergillus titers. - 12/31 Patient sp right thoracotomy, lysis of adhesions, decortication, pleural biopsy on 12/30. Patient with uncontrolled pain. Continue pain control with morphine MEDICAL MICROBIOLOGIST pump and fentanyl 25 g IV push for breakthrough pain as prescribed by cardiac thoracic surgery. Nonsustained asymptomatic Vtach - awaiting STAT BMP and Mg, ordering echo. stable rhythm currently. May need ischemic workup if labs are negative and arrhythmia recurs and/or if echo is abnormal. COPD Exacerbation - will increase steroid dose to 125 mg every 8 hours, we will discontinue Levaquin and restarted only pro-calcitonin is elevated (pro-calcitonin has been ordered as well). Patient has had significant antibiotic course recently and does not need anymore antibiotics unless absolutely necessary. Hyperkalemia - resolved ESRD - Per nephrology will need care home dialysis (MWF). - Patient underwent AV fistula surgery on 12/10/2016. However, patient may need AV graft. - US kidney/renal/bladder ordered and reviewed showing mild pelvocaliectasis right kidney. 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 - Epogen per Nephrology - 12/31 hemoglobin stable at 8.2 Full code. DVT Prophylaxis: SCDs/TEDs., Ambulation. Joselito Nava MD Jan 02, 2017 13:07
--- NOTE | 2017-01-02 13:50 | HHI.NPPN ---
Subjective General Problems: Anemia Renal Failure: Acute Interval History Dialzyed earlier today. He is very fatigued. Some shortness of breath. Chest tube persists. (Milla Pack) Review of Systems General Constitutional: Fatigue (Milla Pack) Respiratory Lungs: Cough, Sputum Respiratory Remarks slightly hemoptysis (Milla Pack) Musculoskeletal MS: Pain/Stiffness (Milla Pack) Objective Data Data 01/02/17 01/03/17 19:00 07:00 Output Total 1800 ml Balance -1800 ml Hemodialysis 1800 ml Vital Signs Date Time Temp Pulse Resp B/P (MAP) Pulse Ox O2 Delivery O2 Flow Rate FiO2 01/02/17 08:10 97.9 95 21 151/81 (104) 94 01/02/17 08:10 95 01/02/17 08:10 94 Nasal Cannula 5.00 Humidified 01/02/17 07:53 98 Nasal Cannula 5.00 01/02/17 06:47 98.4 95 18 137/85 (102) 95 01/02/17 06:00 90 01/02/17 05:53 16 01/02/17 05:00 95 01/02/17 04:00 90 01/02/17 03:24 94 Nasal Cannula 4.00 Humidified 01/02/17 03:00 97 01/02/17 02:00 86 01/02/17 01:00 106 01/02/17 00:30 98.1 93 19 139/89 (106) 96 01/02/17 00:00 86 01/01/17 23:00 97 01/01/17 23:00 91 Nasal Cannula 4.00 Humidified 01/01/17 22:00 98 01/01/17 21:06 16 01/01/17 21:00 98 01/01/17 20:30 91 Nasal Cannula 4.00 Humidified 01/01/17 20:30 97.5 105 19 134/83 (100) 91 01/01/17 20:10 97 Nasal Cannula 4.00 01/01/17 20:00 96 01/01/17 19:00 101 01/01/17 18:00 107 01/01/17 17:00 84 01/01/17 16:00 110 01/01/17 15:00 92 Nasal Cannula 4.00 Humidified 01/01/17 15:00 98.0 105 19 111/67 (82) 92 01/01/17 15:00 113 01/01/17 14:00 103 01/01/17 14:00 20 (Milla Pack) -: 12/31/16 0519 12/31/16 1635 Imaging Last 72 hours Impressions Chest X-Ray 01/01/17 0000 Signed Impressions: Service Date/Time: December 09:19 - CONCLUSION: No significant interval change with persistent basilar right pneumothorax. Right-sided chest tube remains in place. Prominent right lung opacity again seen. Juvencio Lo MD Chest X-Ray 12/31/16 0500 Signed Impressions: Service Date/Time: Saturday, December 31, 2016 05:21 - CONCLUSION: 1. Increase in air in right chest wall with small right pneumothorax visible presumably related to an air leak. Right chest tube remains in place. Dense consolidation in right lung relatively stable. Rios Lai MD Tubes & Lines: Perma-Cath Tubes & Lines Comment chest tube right. (Milla Pack) Physical Exam General Appearance: No Acute Distress, Comfortable (Milla Pack) Eyes Eye Exam: Pupils Equal, Pupils Reactive (Milla Pack) Throat Throat Exam: Oral Mucosa Hutchins & Moist (Milla Pakc) Neck Neck Exam: Neck Supple (Milla Pack) Pulmonary Resp Exam: No Distress, Crackles, Rhonchi, Decreased Bases Resp Remarks course right side lung sounds; chest tube right (Milla Pack) Cardiology CV Exam: Regular, Normal Sinus Rhythm, Good Perfusion (Milla Pack) Gastrointestinal/Abdomen GI Exam: Soft, Non-Tender, Bowel Sounds Present, Positive Bowel Movement (Milla Pack) Musculoskeletal MS Exam: Joints Intact, Normal Gait, Normal Tone, Good Strength (Milla Pack) Integumentary Skin Exam: Clear, Warm, Dry, Intact (Milla Pack) Extremeties Extremities Exam: No Edema, Pedal Pulses Palpable (Milla Pack) Neurologic Neuro Exam: Alert, Awake, Oriented, Speech Clear, Moving All Extremities (Milla Pack) Psychiatric Psych Exam: Appropriate Responses (Milla Pack) Assessment/Plan Discussed Condition With: Patient Assessment Summary: SEJAL/Acute Renal Failure, Anemia of CKD Electrolyte Assessment: Hyperkalemia, Metabolic Acidosis Problem List: (1) Chronic kidney disease, stage 5 ICD Codes: N18.5 - Chronic kidney disease, stage 5 Status: Chronic Plan: Patient likely has reached ESRD. s/p renal biopsy this admission. Of note he is non oliguric. Continue dialysis support MWF. He had 1800 ml UF today Stop IVF, tolerating oral fluids replace electrolytes if needed Continue nutritional support with meals; on high protein diet He had appointment on 01/02 to discuss possible AVG placement outpatient; we will have vascular reconsult next week to discuss. The plan is for him to enter transitional HD program at [place]. When he is approved he can be discharged, may take several weeks. Will keep in touch with case management regarding insurance; now he is being applied for medicare. (2) Hypokalemia ICD Codes: E87.6 - Hypokalemia Status: Resolved Plan: corrected; thought to have a proximal tubule disorder Follow labs, he is off daily replacement 24 hour urine for potassium shows he has renal wasting (3) Pneumonia ICD Codes: J18.9 - Pneumonia, unspecified organism Status: Acute Plan: Pulmonary and CTS surgery are following, s/p bronchoscopy. No malignancies identified. Biopsy negative for pulmonary aspergillus fungal ball in right lung s/p right thoracotomy 12/30 with chest tube placement Continue supportive care (4) Hypocalcemia ICD Codes: E83.51 - Hypocalcemia Plan: Continue to reat hyperphosphatemia, on Sevelamer with meals. (5) Anemia ICD Codes: D64.9 - Anemia Status: Chronic Plan: Transfuse as needed, Most recent 12/30 Continue high dose of Epogen with dialysis. (6) Acidosis ICD Codes: E87.2 - Acidosis Status: Acute Plan: corrected, monitor (7) GI bleed ICD Codes: K92.2 - Gastrointestinal hemorrhage, unspecified Status: Acute Plan: GI has signed off; s/p EGD/colonoscopy may need capsule endoscopy outpatient (Milla Pack) Problem List: (1) Chronic kidney disease, stage 5 ICD Codes: N18.5 - Chronic kidney disease, stage 5 Status: Chronic Plan: Patient likely has reached ESRD. s/p renal biopsy this admission. Of note he is non oliguric. Continue dialysis support MWF. He had 1800 ml UF today Stop IVF, tolerating oral fluids replace electrolytes if needed Continue nutritional support with meals; on high protein diet He had appointment on 01/02 to discuss possible AVG placement outpatient; we will have vascular reconsult next week to discuss. The plan is for him to enter transitional HD program at [place]. When he is approved he can be discharged, may take several weeks. Will keep in touch with case management regarding insurance; now he is being applied for medicare. (2) Hypokalemia ICD Codes: E87.6 - Hypokalemia Status: Resolved Plan: corrected; thought to have a proximal tubule disorder Follow labs, he is off daily replacement 24 hour urine for potassium shows he has renal wasting (3) Pneumonia ICD Codes: J18.9 - Pneumonia, unspecified organism Status: Acute Plan: Pulmonary and CTS surgery are following, s/p bronchoscopy. No malignancies identified. Biopsy negative for pulmonary aspergillus fungal ball in right lung s/p right thoracotomy 12/30 with chest tube placement Continue supportive care (4) Hypocalcemia ICD Codes: E83.51 - Hypocalcemia Plan: Continue to reat hyperphosphatemia, on Sevelamer with meals. (5) Anemia ICD Codes: D64.9 - Anemia Status: Chronic Plan: Transfuse as needed, Most recent 12/30 Continue high dose of Epogen with dialysis. (6) Acidosis ICD Codes: E87.2 - Acidosis Status: Acute Plan: corrected, monitor (7) GI bleed ICD Codes: K92.2 - Gastrointestinal hemorrhage, unspecified Status: Acute Plan: GI has signed off; s/p EGD/colonoscopy may need capsule endoscopy outpatient Plan patient was seen and examined. Agree with above assessment and plan. (Jim Zuluaga MD) Problem Qualifiers (1) Pneumonia: Qualified Codes: J18.1 - Lobar pneumonia, unspecified organism (2) Anemia: Qualified Codes: N18.5 - Chronic kidney disease, stage 5; D63.1 - Anemia in chronic kidney disease (3) GI bleed: Milla Pack PAN OPERATOR Jan 02, 2017 13:50 Jim Zuluaga MD Jan 02, 2017 14:38
[2017-01-02] MEDS: ASCORBIC ACID 500 MG TAB PO SCH ×2 (14:22→18:39)
[2017-01-02] MEDS: CHOLECALCIFEROL (VIT D3) 1000 UNIT TAB PO SCH (14:22)
[2017-01-02] MEDS: methylPREDNISolone SOD SUCC 125 MG/2 ML VIAL IV PUSH SCH ×2 (14:22→23:22)
[2017-01-02] MEDS: FERROUS SULFATE 325 MG (65 MG ELEMENTAL IRON) TAB PO SCH ×2 (14:23→18:39)
[2017-01-02] MEDS: POLYETHYLENE GLYCOL 17 GM PKG PO SCH (14:23)
[2017-01-02] MEDS: DOCUSATE SODIUM 100 MG CAP PO SCH ×2 (14:23→23:22)
[2017-01-02] MEDS: LACTOBACILLUS ACIDOPHILUS TAB PO SCH ×2 (14:23→23:22)
--- NOTE | 2017-01-02 14:55 | PD.CAR.PN ---
CVT Progress Note Subjective/Hospital Course: ct guided lung bx / no fungal elements Dr Claire Lott requesting re-eval for possible thoractomy discussed with pt right thoracotomy for pulmonary resection Dr Roth will discuss further with pt on Thursday tentatively scheduled for case 12/29 Dr Roth discussed surgery / risks / procedure with pt / he ia agreeable to proceed for surgery in am 12/30 Right thoracotomy with VATS assist, lysis of adhesions, decortication, pleural biopsies and cultures, right upper lobe biopsies and cultures Right upper lobe resection was considered, but not technically feasible due to the dense consolidation, inflammation, and frozen hilum associated. 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 right anterior chest tube in place +4 air leak HEAD: Normocephalic. EYES: No scleral icterus. No injection or drainage. NECK: Supple, trachea midline. No JVD or lymphadenopathy. CARDIOVASCULAR: Regular rate and rhythm without murmurs, gallops, or rubs. RESPIRATORY: Breath sounds equal bilaterally. No accessory muscle use. subq emphysema right chest / chest tube to wall suction 20cm GASTROINTESTINAL: Abdomen soft, non-tender, nondistended. MUSCULOSKELETAL: No cyanosis, or edema. BACK: Nontender without obvious deformity. No CVA tenderness. Vital Signs Date Time Temp Pulse Resp B/P (MAP) Pulse Ox O2 Delivery O2 Flow Rate FiO2 01/02/17 08:10 97.9 95 21 151/81 (104) 94 01/02/17 08:10 95 01/02/17 08:10 94 Nasal Cannula 5.00 Humidified 01/02/17 07:53 98 Nasal Cannula 5.00 01/02/17 06:47 98.4 95 18 137/85 (102) 95 01/02/17 06:00 90 01/02/17 05:53 16 01/02/17 05:00 95 01/02/17 04:00 90 01/02/17 03:24 94 Nasal Cannula 4.00 Humidified 01/02/17 03:00 97 01/02/17 02:00 86 01/02/17 01:00 106 01/02/17 00:30 98.1 93 19 139/89 (106) 96 01/02/17 00:00 86 01/01/17 23:00 97 01/01/17 23:00 91 Nasal Cannula 4.00 Humidified 01/01/17 22:00 98 01/01/17 21:06 16 01/01/17 21:00 98 01/01/17 20:30 91 Nasal Cannula 4.00 Humidified 01/01/17 20:30 97.5 105 19 134/83 (100) 91 01/01/17 20:10 97 Nasal Cannula 4.00 01/01/17 20:00 96 01/01/17 19:00 101 01/01/17 18:00 107 01/01/17 17:00 84 01/01/17 16:00 110 01/01/17 15:00 92 Nasal Cannula 4.00 Humidified 01/01/17 15:00 98.0 105 19 111/67 (82) 92 01/01/17 15:00 113 Result Diagram: 12/31/16 0519 12/31/16 1635 (1) Pulmonary infiltrate in right lung on chest x-ray Plan: pulm toileting nebs, ezpap OOB ambulate consult PT pain control cultures neg to date path pending f/u cxr in am keep chest tube to wall suction (2) Pneumonia Plan: post ABX/ ID signed off Problem Qualifiers (1) Pneumonia: Qualified Codes: J18.1 - Lobar pneumonia, unspecified organism Marly Heart Jan 02, 2017 14:55
[2017-01-02 15:46] LABS: BICARBONATE 31.8 MEQ/L (21.0-32.0); MAGNESIUM 2.1 MG/DL (1.5-2.5); POTASSIUM 3.6 MEQ/L (3.5-5.1)
[2017-01-02] MEDS: MORPHINE SULFATE 30 MG/30 ML PCA IV SCH (17:47)
--- NOTE | 2017-01-02 18:38 | ECHRPT ---
Indication: VTACH CONCLUSIONS Normal left ventricular size. Wall thickness is measured at the upper limits of normal. The left ventricular systolic function is normal with an estimated ejection fraction in the range of 60-65%. No definite wall motion abnormalities. Trace mitral valve regurgitation. Mild mitral annular calcification. BP: 151 / 81 HR: Rhythm: Sinus MEASUREMENTS (Male / Female) Normal Values Technical Quality:Very technically difficult study 2D ECHO LV Diastolic Diameter PLAX 5.7 cm 4.2 - 5.9 / 3.9 - 5.3 cm LV Systolic Diameter PLAX 4.5 cm IVS Diastolic Thickness 0.9 cm 0.6 - 1.0 / 0.6 - 0.9 cm LVPW Diastolic Thickness 0.9 cm 0.6 - 1.0 / 0.6 - 0.9 cm LV Relative Wall Thickness 0.3 LVOT Diameter 2.2 cm Aortic Root Diameter 3.3 cm LA Systolic Diameter LX 2.9 cm 3.0 - 4.0 / 2.7 - 3.8 cm M-MODE LV Diastolic Diameter MM 6.1 cm 4.2 - 5.9 / 3.9 - 5.3 cm LV Systolic Diameter MM 4.4 cm LV Ejection Fraction MM Teich 54.8 % IVS Diastolic Thickness MM 1.1 cm 0.6 - 1.0 / 0.6 - 0.9 cm LVPW Diastolic Thickness MM 1.1 cm 0.6 - 1.0 / 0.6 - 0.9 cm LV Relative Wall Thickness MM 0.4 0.24 - 0.42 / 0.22 - 0.42 LV Mass Index MM 151.1 g/m 49 - 115 / 43 - 95 g/m FINDINGS LEFT VENTRICLE Normal left ventricular size. Wall thickness is measured at the upper limits of normal. The left ventricular systolic function is normal with an estimated ejection fraction in the range of 60-65%. No definite wall motion abnormalities. RIGHT VENTRICLE Normal right ventricular size and systolic function. LEFT ATRIUM The left atrial size is normal. RIGHT ATRIUM The right atrial size is normal. ATRIAL SEPTUM Normal atrial septal thickness without atrial level shunting by limited color doppler interrogation. AORTA The aortic root and proximal ascending aorta are normal in size on limited imaging. MITRAL VALVE Trace mitral valve regurgitation. Mild mitral annular calcification. AORTIC VALVE Trileaflet aortic valve. No aortic valve stenosis or regurgitation. TRICUSPID VALVE Structurally normal tricuspid valve. No tricuspid valve stenosis or regurgitation. PULMONARY VALVE The pulmonary valve is not well visualized. VESSELS The inferior vena cava is normal in size. PERICARDIUM No pericardial effusion. Yusuf Doshi MD (Electronically Signed) Final Date:02 January 2017 18:37
[2017-01-02] MEDS: PANTOPRAZOLE SOD 40 MG DELAYED RELEASE TAB PO SCH (23:22)
[2017-01-03] VITALS (26 sets, daily range): BP systolic 119–158; BP diastolic 72–93; PULSE 82–104; RESP 18–22; TEMP 97.2–98.9; O2SAT 93–98
[2017-01-03] MEDS: methylPREDNISolone SOD SUCC 125 MG/2 ML VIAL IV PUSH SCH ×3 (04:25→21:41)
[2017-01-03] MEDS: PCA - TOTAL MG MORPHINE DELIVERED PER SHIFT SCH ×2 (04:26→14:00)
--- NOTE | 2017-01-03 06:19 | RADRPT ---
EXAM DATE/TIME: 01/03/2017 05:06 [facility] COMPARISON: CHEST SINGLE AP, January 02, 2017, 12:15. INDICATIONS : Evaluate pneumothorax and right side chest tube MEDICAL HISTORY : Hypertension. Chronic obstructive pulmonary disease. Cardiovascular disease. Renal failure SURGICAL HISTORY : CABG. Right chest tube ENCOUNTER: Subsequent ACUITY: 1 month PAIN SCORE: 7/10 LOCATION: Bilateral chest FINDINGS: A single view of the chest demonstrates right chest tube present with a predominately right basilar p neumothorax that appears slightly increased in size from January 02. Extensive consolidation and ca vitation in the upper right lung. Subcutaneous air in the right chest wall. Minimal left basilar dens ity is stable.. CONCLUSION: 1. Right chest tube with slight increase in size of right basilar pneumothorax since January 02. Rios Lai MD on January 03, 2017 at 6:15 Board Certified Radiologist. This report was verified electronically.
[2017-01-03] MEDS: RESP: BUDESONIDE 0.5 MG/2 ML NEB NEB SCH ×2 (08:44→21:16)
[2017-01-03] MEDS: SODIUM CHLORIDE 0.9% FLUSH 5 ML FLUSH IV FLUSH SCH ×2 (09:00→21:00)
[2017-01-03] MEDS: HYDROCORTISONE ACETATE 25 MG SUPP RECTAL SCH ×3 (09:00→21:00)
[2017-01-03] MEDS: POLYETHYLENE GLYCOL 17 GM PKG PO SCH (09:00)
[2017-01-03] MEDS: SODIUM CHLORIDE 0.9% FLUSH 10 ML FLUSH IV FLUSH PRN ×2 (09:07→21:41)
[2017-01-03] MEDS: LACTOBACILLUS ACIDOPHILUS TAB PO SCH ×2 (09:08→21:41)
[2017-01-03] MEDS: DOCUSATE SODIUM 100 MG CAP PO SCH ×2 (09:08→21:00)
[2017-01-03] MEDS: SEVELAMER CARBONATE 800 MG TAB PO SCH ×3 (09:08→17:11)
[2017-01-03] MEDS: CHOLECALCIFEROL (VIT D3) 1000 UNIT TAB PO SCH (09:08)
--- NOTE | 2017-01-03 09:45 | PD.CAR.PN ---
CVT Progress Note Subjective/Hospital Course: ct guided lung bx / no fungal elements Dr Claire Lott requesting re-eval for possible thoractomy discussed with pt right thoracotomy for pulmonary resection Dr Roth will discuss further with pt on Thursday tentatively scheduled for case 12/29 Dr Roth discussed surgery / risks / procedure with pt / he ia agreeable to proceed for surgery in am 12/30 Right thoracotomy with VATS assist, lysis of adhesions, decortication, pleural biopsies and cultures, right upper lobe biopsies and cultures Right upper lobe resection was considered, but not technically feasible due to the dense consolidation, inflammation, and frozen hilum associated. 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 Denies dyspnea and comfortable Objective: Vital Signs Date Time Temp Pulse Resp B/P (MAP) Pulse Ox O2 Delivery O2 Flow Rate FiO2 01/03/17 09:21 96 Nasal Cannula 4.50 01/03/17 07:00 97 Nasal Cannula 4.00 Humidified 01/03/17 05:39 98.9 104 18 133/87 (102) 95 01/03/17 04:26 18 01/03/17 04:00 104 01/03/17 03:29 98 Nasal Cannula 3.00 Humidified 01/03/17 03:00 95 01/03/17 02:00 92 01/03/17 01:00 88 01/03/17 00:00 102 01/03/17 00:00 98 Nasal Cannula 3.00 Humidified 01/02/17 23:00 98.5 95 18 131/81 (98) 93 01/02/17 23:00 100 01/02/17 22:00 94 01/02/17 21:00 92 01/02/17 20:23 92 Nasal Cannula 5.00 01/02/17 20:00 92 01/02/17 20:00 95 Nasal Cannula 3.00 Humidified 01/02/17 20:00 98.5 95 18 132/84 (100) 93 01/02/17 19:00 91 01/02/17 18:00 84 01/02/17 17:52 18 01/02/17 17:47 16 01/02/17 17:00 86 01/02/17 16:57 20 01/02/17 16:00 92 01/02/17 15:00 97.8 96 20 131/91 (104) 94 01/02/17 15:00 96 01/02/17 15:00 94 Nasal Cannula 5.00 Humidified 01/02/17 14:00 106 01/02/17 13:00 84 01/02/17 12:15 93 Nasal Cannula 5.00 Humidified 01/02/17 12:09 97.9 94 20 130/77 (94) 93 01/02/17 12:00 92 01/02/17 11:00 84 01/02/17 10:00 92 Result Diagram: 12/31/16 0519 01/02/17 1501 Imaging: Last 24 hours Impressions Chest X-Ray 01/02/17 1200 Signed Impressions: Service Date/Time: Monday, January 02, 2017 12:15 - CONCLUSION: Pneumothorax is stable. There is increasing subcutaneous emphysema. Dense consolidative changes in the right lung. Orlin Willingham MD FACR Cardiovascular: RRR Pulmonary: Decreased BS on right with audible air leak GI/: NABS Incision: dry and intact CT: ~150/24hrs, large air leak Plan: Increase chest tube suction to 40. I discussed this air leak issue with him and potential bronchoscopy or return to the OR if this air leak does not improve PATH still pending. Micro no growth CXR in AM (1) Pulmonary infiltrate in right lung on chest x-ray Plan: pulm toileting nebs, ezpap OOB ambulate consult PT pain control cultures neg to date path pending f/u cxr in am keep chest tube to wall suction (2) Pneumonia Plan: post ABX/ ID signed off Problem Qualifiers (1) Pneumonia: Qualified Codes: J18.1 - Lobar pneumonia, unspecified organism Carmelita Roth MD Jan 03, 2017 09:45
[2017-01-03] MEDS: FERROUS SULFATE 325 MG (65 MG ELEMENTAL IRON) TAB PO SCH ×2 (12:40→17:11)
[2017-01-03] MEDS: ASCORBIC ACID 500 MG TAB PO SCH ×2 (12:40→17:11)
--- NOTE | 2017-01-03 13:08 | HHI.PR ---
Subjective Remarks RN denies any further vtach episodes last night. B She does report however patient has become far more crepitus today over his right thorax and including his right arm and forearm. Cardiothoracic surgery is aware, suction has been increased. Pt says his SOB is unchanged. Denies any chest pain Objective Vital Signs Date Time Temp Pulse Resp B/P (MAP) Pulse Ox O2 Delivery O2 Flow Rate FiO2 01/03/17 12:00 89 01/03/17 11:00 98 01/03/17 11:00 98 Nasal Cannula 4.00 Humidified 01/03/17 11:00 97.2 95 20 119/72 (88) 98 01/03/17 10:00 100 01/03/17 09:21 96 Nasal Cannula 4.50 01/03/17 09:00 86 01/03/17 08:00 98 01/03/17 07:00 97 Nasal Cannula 4.00 Humidified 01/03/17 07:00 103 01/03/17 07:00 97.3 96 20 140/78 (98) 97 01/03/17 05:39 98.9 104 18 133/87 (102) 95 01/03/17 04:26 18 01/03/17 04:00 104 01/03/17 03:29 98 Nasal Cannula 3.00 Humidified 01/03/17 03:00 95 01/03/17 02:00 92 01/03/17 01:00 88 01/03/17 00:00 102 01/03/17 00:00 98 Nasal Cannula 3.00 Humidified 01/02/17 23:00 98.5 95 18 131/81 (98) 93 01/02/17 23:00 100 01/02/17 22:00 94 01/02/17 21:00 92 01/02/17 20:23 92 Nasal Cannula 5.00 01/02/17 20:00 92 01/02/17 20:00 95 Nasal Cannula 3.00 Humidified 01/02/17 20:00 98.5 95 18 132/84 (100) 93 01/02/17 19:00 91 01/02/17 18:00 84 01/02/17 17:52 18 01/02/17 17:47 16 01/02/17 17:00 86 01/02/17 16:57 20 01/02/17 16:00 92 01/02/17 15:00 97.8 96 20 131/91 (104) 94 01/02/17 15:00 96 01/02/17 15:00 94 Nasal Cannula 5.00 Humidified 01/02/17 14:00 106 I/O 01/02/17 01/02/17 01/02/17 01/03/17 01/03/17 01/03/17 07:00 15:00 23:00 07:00 15:00 23:00 Intake Total 720 ml 856 ml 470 ml Output Total 890 ml 1800 ml 700 ml 760 ml Balance -170 ml -1800 ml 156 ml -290 ml Intake Oral 720 ml 840 ml 470 ml IV Total 16 ml Output Urine Total 700 ml 700 ml 600 ml Chest Tube Drainage Total 190 ml 160 ml Hemodialysis 1800 ml # Bowel Movements 0 0 0 Result Diagram: 12/31/16 0519 01/02/17 1501 Objective Remarks Chest tube in place over right chest wall, draining well unlabored breathing today, no wheezing today, obvious crepitus over left hemithorax, shoulder and forearm On nasal cannula, no cyanosis no clubbing A/P Assessment and Plan Mr. Fonseca is a 55-year-old male patient with a known medical history of CAD s/ p CABG and CKD who presented to the ED with complaints of increasing dyspnea, generalized weakness, fevers and frequent diaphoresis x 2 weeks. Hypoxia - 2/2 pneumonia w/ cavitation + chest wall leak + COPD, see tx below Extensive right lung pneumonia with cavitation - CT chest 11/26 dense consolidative right upper lobe pneumonia with severe emphysema with cavitary foci within the consolidated areas, patchy right middle and lower lobe pneumonia - Pulmonary following, completed cefepime regimen. - RUL BAL 12/05 negative for malignant cells - CT guided bx 12/23 negative for fungus, AFB or malignancy. Substantial fibrosis noted. - Sputum culture negative. Bronchial cultures negative. Negative Aspergillus titers. - 12/31 Patient sp right thoracotomy, lysis of adhesions, decortication, pleural biopsy on 12/30. Patient with uncontrolled pain. Continue pain control with morphine DIRECTOR OF ACQUISITIONS pump and fentanyl 25 g IV push for breakthrough pain as prescribed by cardiac thoracic surgery. Nonsustained asymptomatic Vtach - No recurrence, electroltes and Mg wnl. Stable rhythm currently. EF 60-65 %. COPD Exacerbation - will decrease steroids since no wheezing today Hyperkalemia - resolved ESRD - Per nephrology will need long term care phlebotomist dialysis (MWF). - Patient underwent AV fistula surgery on 12/10/2016. However, patient may need AV graft. - US kidney/renal/bladder ordered and reviewed showing mild pelvocaliectasis right kidney. 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 - Epogen per Nephrology - 12/31 hemoglobin stable at 8.2 Full code. DVT Prophylaxis: SCDs/TEDs., Ambulation. Joselito Nava MD Jan 03, 2017 13:08
--- NOTE | 2017-01-03 14:28 | HHI.NPPN ---
Subjective General Problems: Anemia Renal Failure: Acute Additional Remarks No acute complaints today Review of Systems General Constitutional: Fatigue Respiratory Lungs: Cough, Sputum Respiratory Remarks slightly hemoptysis Musculoskeletal MS: Pain/Stiffness Objective Data Data Vital Signs Date Time Temp Pulse Resp B/P (MAP) Pulse Ox O2 Delivery O2 Flow Rate FiO2 01/03/17 14:00 20 01/03/17 14:00 102 01/03/17 13:00 95 01/03/17 12:00 89 01/03/17 11:00 98 01/03/17 11:00 98 Nasal Cannula 4.00 Humidified 01/03/17 11:00 97.2 95 20 119/72 (88) 98 01/03/17 10:00 100 01/03/17 09:21 96 Nasal Cannula 4.50 01/03/17 09:00 86 01/03/17 08:00 98 01/03/17 07:00 97 Nasal Cannula 4.00 Humidified 01/03/17 07:00 103 01/03/17 07:00 97.3 96 20 140/78 (98) 97 01/03/17 05:39 98.9 104 18 133/87 (102) 95 01/03/17 04:26 18 01/03/17 04:00 104 01/03/17 03:29 98 Nasal Cannula 3.00 Humidified 01/03/17 03:00 95 01/03/17 02:00 92 01/03/17 01:00 88 01/03/17 00:00 102 01/03/17 00:00 98 Nasal Cannula 3.00 Humidified 01/02/17 23:00 98.5 95 18 131/81 (98) 93 01/02/17 23:00 100 01/02/17 22:00 94 01/02/17 21:00 92 01/02/17 20:23 92 Nasal Cannula 5.00 01/02/17 20:00 92 01/02/17 20:00 95 Nasal Cannula 3.00 Humidified 01/02/17 20:00 98.5 95 18 132/84 (100) 93 01/02/17 19:00 91 01/02/17 18:00 84 01/02/17 17:52 18 01/02/17 17:47 16 01/02/17 17:00 86 01/02/17 16:57 20 9/29/17 16:00 92 01/02/17 15:00 97.8 96 20 131/91 (104) 94 01/02/17 15:00 96 01/02/17 15:00 94 Nasal Cannula 5.00 Humidified -: 12/31/16 0519 01/02/17 1501 Tubes & Lines: Perma-Cath Tubes & Lines Comment chest tube right. Physical Exam General Appearance: No Acute Distress, Comfortable Eyes Eye Exam: Pupils Equal, Pupils Reactive Throat Throat Exam: Oral Mucosa Chemult & Moist Neck Neck Exam: Neck Supple Pulmonary Resp Exam: No Distress, Crackles, Rhonchi, Decreased Bases Cardiology CV Exam: Regular, Normal Sinus Rhythm, Good Perfusion Gastrointestinal/Abdomen GI Exam: Soft, Non-Tender, Bowel Sounds Present, Positive Bowel Movement Musculoskeletal MS Exam: Joints Intact, Normal Gait, Normal Tone, Good Strength Integumentary Skin Exam: Clear, Warm, Dry, Intact Extremeties Extremities Exam: No Edema, Pedal Pulses Palpable Neurologic Neuro Exam: Alert, Awake, Oriented, Speech Clear, Moving All Extremities Psychiatric Psych Exam: Appropriate Responses Assessment/Plan Discussed Condition With: Patient Assessment Summary: SEJAL/Acute Renal Failure, Anemia of CKD Electrolyte Assessment: Hyperkalemia, Metabolic Acidosis Problem List: (1) Chronic kidney disease, stage 5 ICD Codes: N18.5 - Chronic kidney disease, stage 5 Status: Chronic Plan: Patient likely has reached ESRD. s/p renal biopsy this admission. Of note he is non oliguric. Continue dialysis support MWF. HD last done Thursday, next HD Thursday. Continue nutritional support with meals; on high protein diet Follow up with Dr. Pyle for AV access - planned outpatient evaluation. The plan is for him to enter transitional HD program at [place]. When he is approved he can be discharged, may take several weeks. Will keep in touch with case management regarding insurance; now he is being applied for medicare. (2) Hypokalemia ICD Codes: E87.6 - Hypokalemia Status: Resolved Plan: corrected; thought to have a proximal tubule disorder Follow labs, he is off daily replacement 24 hour urine for potassium shows he has renal wasting (3) Pneumonia ICD Codes: J18.9 - Pneumonia, unspecified organism Status: Acute Plan: Pulmonary and CTS surgery are following, s/p bronchoscopy. No malignancies identified. Biopsy negative for pulmonary aspergillus fungal ball in right lung s/p right thoracotomy 12/30 with chest tube placement Continue supportive care (4) Hypocalcemia ICD Codes: E83.51 - Hypocalcemia Plan: Continue to treat hyperphosphatemia, on Sevelamer with meals. (5) Anemia ICD Codes: D64.9 - Anemia Status: Chronic Plan: Transfuse as needed, Most recent 12/30 Continue high dose of Epogen with dialysis. (6) Acidosis ICD Codes: E87.2 - Acidosis Status: Acute Plan: corrected, monitor (7) GI bleed ICD Codes: K92.2 - Gastrointestinal hemorrhage, unspecified Status: Acute Plan: GI has signed off; s/p EGD/colonoscopy may need capsule endoscopy outpatient Plan Problem Qualifiers (1) Pneumonia: Qualified Codes: J18.1 - Lobar pneumonia, unspecified organism (2) Anemia: Qualified Codes: N18.5 - Chronic kidney disease, stage 5; D63.1 - Anemia in chronic kidney disease (3) GI bleed: Andrea Dallas MD Jan 03, 2017 14:28
--- NOTE | 2017-01-03 20:11 | HHI.PR ---
Subjective Remarks Went for a Right Thoracotomy and right Upper lobe biopsies and Decortication.Has a leak from chest tube.Less pain Has some subcutaneous emphysema. No fever Objective Vital Signs Date Time Temp Pulse Resp B/P (MAP) Pulse Ox O2 Delivery O2 Flow Rate FiO2 01/03/17 18:03 94 01/03/17 17:00 92 01/03/17 16:04 89 01/03/17 15:00 95 01/03/17 15:00 98.7 92 20 137/86 (103) 93 01/03/17 15:00 93 Nasal Cannula 4.00 Humidified 01/03/17 14:00 20 01/03/17 14:00 102 01/03/17 13:00 95 01/03/17 12:00 89 01/03/17 11:00 98 01/03/17 11:00 98 Nasal Cannula 4.00 Humidified 01/03/17 11:00 97.2 95 20 119/72 (88) 98 01/03/17 10:00 100 01/03/17 09:21 96 Nasal Cannula 4.50 01/03/17 09:00 86 01/03/17 08:00 98 01/03/17 07:00 97 Nasal Cannula 4.00 Humidified 01/03/17 07:00 103 01/03/17 07:00 97.3 96 20 140/78 (98) 97 01/03/17 05:39 98.9 104 18 133/87 (102) 95 01/03/17 04:26 18 01/03/17 04:00 104 01/03/17 03:29 98 Nasal Cannula 3.00 Humidified 01/03/17 03:00 95 01/03/17 02:00 92 01/03/17 01:00 88 01/03/17 00:00 102 01/03/17 00:00 98 Nasal Cannula 3.00 Humidified 01/02/17 23:00 98.5 95 18 131/81 (98) 93 01/02/17 23:00 100 01/02/17 22:00 94 01/02/17 21:00 92 01/02/17 20:23 92 Nasal Cannula 5.00 I/O 01/02/17 01/02/17 01/02/17 01/03/17 01/03/17 01/03/17 07:00 15:00 23:00 07:00 15:00 23:00 Intake Total 720 ml 856 ml 470 ml 1185 ml Output Total 890 ml 1800 ml 700 ml 760 ml 470 ml Balance -170 ml -1800 ml 156 ml -290 ml 715 ml Intake Oral 720 ml 840 ml 470 ml 960 ml IV Total 16 ml 225 ml Output Urine Total 700 ml 700 ml 600 ml 350 ml Chest Tube Drainage Total 190 ml 160 ml 120 ml Hemodialysis 1800 ml # Bowel Movements 0 0 0 1 Result Diagram: 12/31/16 0519 01/02/17 1501 Objective Remarks GENERAL: This is a middle-aged averagely built white male who is alert and in some distress . HEAD, EYES, EARS, NOSE, THROAT: Head normocephalic. The pupils are reactive. Throat is clear. NECK: The neck is supple. No bruits. No thyroid enlargement. No lymphadenopathy.Subcutaneous emphysema of chest wall on right and over neck CHEST: Equal movements. Occ wheeze heard over Right chest and occ Crackles. HEART: Heart sounds are regular. S1 and S2. No murmur. ABDOMEN: Abdomen is soft and protuberant. No masses or tenderness. EXTREMITIES: No edema. No calf tenderness. NEUROLOGIC: Reflexes are normal. No focal deficits. SKIN: Warm. Assessment and Plan Assessment and Plan IMPRESSION: 1. Extensive right lung pneumonia with hypoxemia. 2. Chronic kidney disease with acute renal failure. 3. COPD with emphysema and chronic bronchitis. 4. History of coronary artery bypass grafting. Plan : 1. Chest tube to wall suction 2. O2 3 L. N/C 3. Nebs qid , duoneb 4. IS at bedside qid. 5. Pain control. Alison Wilson MD Jan 03, 2017 20:11
[2017-01-03] MEDS: MORPHINE SULFATE 30 MG/30 ML PCA IV SCH (21:34)
[2017-01-03] MEDS: PANTOPRAZOLE SOD 40 MG DELAYED RELEASE TAB PO SCH (21:41)
[2017-01-04] VITALS (26 sets, daily range): BP systolic 118–167; BP diastolic 77–106; PULSE 70–101; RESP 20–22; TEMP 97.7–98; O2SAT 92–98
[2017-01-04 04:25] LABS: AUTOMATED NEUTROPHIL # 9.8 TH/MM3 (1.8-7.7); BASOPHIL % 0.1 % (0.0-2.0); HEMATOCRIT 23.9 % (39.0-51.0); HEMO FLAGS DIFF FINAL; LYMPH % 9.9 % (9.0-44.0); LYMPHOCYTE # 1.1 TH/MM3 (1.0-4.8); MEAN CELL VOLUME 93.3 FL (80.0-100.0); MEAN CORPUSCULAR HEMOGLOBIN 30.6 PG (27.0-34.0); MEAN CORPUSCULAR HGB CONC 32.8 % (32.0-36.0); MONO % 3.8 % (0.0-8.0); NEUT % 86.2 % (16.0-70.0); PLATELET COUNT 267 TH/MM3 (150-450); RED BLOOD COUNT 2.56 MIL/MM3 (4.50-5.90); RED CELL DISTRIBUTION WIDTH 15.9 % (11.6-17.2); WHITE BLOOD COUNT 11.4 TH/MM3 (4.0-11.0)
[2017-01-04 04:50] LABS: BICARBONATE 25.9 MEQ/L (21.0-32.0); POTASSIUM 4.1 MEQ/L (3.5-5.1)
--- NOTE | 2017-01-04 05:58 | RADRPT ---
EXAM DATE/TIME: 01/04/2017 05:16 [facility] COMPARISON: CHEST SINGLE AP, January 03, 2017, 5:06. INDICATIONS : Shortness of breath, possible pulmonary disease. MEDICAL HISTORY : Hypertension. Chronic obstructive pulmonary disease. Cardiovascular disease. Renal failure SURGICAL HISTORY : CABG. ENCOUNTER: Subsequent ACUITY: 1 month PAIN SCORE: 0/10 LOCATION: Bilateral chest FINDINGS: A single view of the chest demonstrates a right-sided chest tube with predominantly right basilar pne umothorax similar to prior study. Extensive airspace disease and cavitation upper right hemithorax re latively stable. Airleak in right chest wall relatively stable. There is new subcutaneous air on the left side since prior exam. No new left lung infiltrate. Previous median sternotomy and CABG. CONCLUSION: 1. Right chest tube with relatively stable right pneumothorax predominantly at the right lung base wi th consolidation and cavitation also stable. Air leak on the right with some new subcutaneous air in the left chest wall since January 03. Rios Lai MD on January 04, 2017 at 5:54 Board Certified Radiologist. This report was verified electronically.
[2017-01-04] MEDS: PCA - TOTAL MG MORPHINE DELIVERED PER SHIFT SCH ×3 (06:00→22:00)
[2017-01-04] MEDS: methylPREDNISolone SOD SUCC 125 MG/2 ML VIAL IV PUSH SCH ×2 (06:07→20:54)
[2017-01-04] MEDS: HYDROCORTISONE ACETATE 25 MG SUPP RECTAL SCH ×3 (09:00→21:00)
[2017-01-04] MEDS: POLYETHYLENE GLYCOL 17 GM PKG PO SCH (09:00)
[2017-01-04] MEDS: SODIUM CHLORIDE 0.9% FLUSH 5 ML FLUSH IV FLUSH SCH ×2 (09:00→21:00)
[2017-01-04] MEDS: LACTOBACILLUS ACIDOPHILUS TAB PO SCH ×2 (09:09→20:54)
[2017-01-04] MEDS: CHOLECALCIFEROL (VIT D3) 1000 UNIT TAB PO SCH (09:09)
[2017-01-04] MEDS: SEVELAMER CARBONATE 800 MG TAB PO SCH ×3 (09:10→17:05)
[2017-01-04] MEDS: DOCUSATE SODIUM 100 MG CAP PO SCH ×2 (09:10→20:54)
--- NOTE | 2017-01-04 10:10 | PD.CAR.PN ---
CVT Progress Note CVT: POD #: 5 Subjective/Hospital Course: ct guided lung bx / no fungal elements Dr Claire Lott requesting re-eval for possible thoractomy discussed with pt right thoracotomy for pulmonary resection Dr Roth will discuss further with pt on Thursday tentatively scheduled for 2nd case 12/29 Dr Roth discussed surgery / risks / procedure with pt / he ia agreeable to proceed for surgery in am 12/30 Right thoracotomy with VATS assist, lysis of adhesions, decortication, pleural biopsies and cultures, right upper lobe biopsies and cultures Right upper lobe resection was considered, but not technically feasible due to the dense consolidation, inflammation, and frozen hilum associated. 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 Denies dyspnea and comfortable 01/04/17 Persistent large air leak. No complaints otherwise Objective: Vital Signs Date Time Temp Pulse Resp B/P (MAP) Pulse Ox O2 Delivery O2 Flow Rate FiO2 01/04/17 09:00 78 01/04/17 08:00 90 01/04/17 07:00 70 01/04/17 07:00 98 Nasal Cannula 3.00 Humidified 01/04/17 07:00 97.9 71 20 167/106 (126) 98 01/04/17 06:00 74 01/04/17 06:00 4 01/04/17 05:00 72 01/04/17 04:00 70 01/04/17 04:00 97.9 92 20 118/77 (91) 92 01/04/17 04:00 96 Nasal Cannula 4.00 Humidified 01/04/17 03:00 70 01/04/17 02:00 82 01/04/17 01:00 84 01/04/17 00:00 84 01/04/17 00:00 96 Nasal Cannula 4.00 Humidified 01/03/17 23:58 98.0 83 20 150/91 (110) 95 01/03/17 23:00 82 01/03/17 22:00 82 01/03/17 21:34 20 01/03/17 21:17 95 Nasal Cannula 4.50 01/03/17 21:00 92 01/03/17 20:00 96 Nasal Cannula 4.00 Humidified 01/03/17 20:00 88 01/03/17 20:00 98.2 91 22 158/93 (114) 96 01/03/17 19:00 98 01/03/17 18:03 94 01/03/17 17:00 92 01/03/17 16:04 89 01/03/17 15:00 95 01/03/17 15:00 98.7 92 20 137/86 (103) 93 01/03/17 15:00 93 Nasal Cannula 4.00 Humidified 01/03/17 14:00 20 01/03/17 14:00 102 01/03/17 13:00 95 01/03/17 12:00 89 01/03/17 11:00 98 01/03/17 11:00 98 Nasal Cannula 4.00 Humidified 01/03/17 11:00 97.2 95 20 119/72 (88) 98 Labs: Laboratory Tests Test 01/04/17 04:06 White Blood Count 11.4 TH/MM3 (4.0-11.0) Red Blood Count 2.56 MIL/MM3 (4.50-5.90) Hemoglobin 7.8 GM/DL (13.0-17.0) Hematocrit 23.9 % (39.0-51.0) Mean Corpuscular Volume 93.3 FL (80.0-100.0) Mean Corpuscular Hemoglobin 30.6 PG (27.0-34.0) Mean Corpuscular Hemoglobin Concent 32.8 % (32.0-36.0) Red Cell Distribution Width 15.9 % (11.6-17.2) Platelet Count 267 TH/MM3 (150-450) Mean Platelet Volume 8.0 FL (7.0-11.0) Neutrophils (%) (Auto) 86.2 % (16.0-70.0) Lymphocytes (%) (Auto) 9.9 % (9.0-44.0) Monocytes (%) (Auto) 3.8 % (0.0-8.0) Eosinophils (%) (Auto) 0.0 % (0.0-4.0) Basophils (%) (Auto) 0.1 % (0.0-2.0) Neutrophils # (Auto) 9.8 TH/MM3 (1.8-7.7) Lymphocytes # (Auto) 1.1 TH/MM3 (1.0-4.8) Monocytes # (Auto) 0.4 TH/MM3 (0-0.9) Eosinophils # (Auto) 0.0 TH/MM3 (0-0.4) Basophils # (Auto) 0.0 TH/MM3 (0-0.2) CBC Comment DIFF FINAL Differential Comment Blood Urea Nitrogen 58 MG/DL (7-18) Creatinine 4.68 MG/DL (0.60-1.30) Random Glucose 121 MG/DL (74-106) Calcium Level 8.6 MG/DL (8.5-10.1) Phosphorus Level 4.2 MG/DL (2.5-4.9) Sodium Level 138 MEQ/L (136-145) Potassium Level 4.1 MEQ/L (3.5-5.1) Chloride Level 101 MEQ/L (98-107) Carbon Dioxide Level 25.9 MEQ/L (21.0-32.0) Anion Gap 11 MEQ/L (5-15) Estimat Glomerular Filtration Rate 13 ML/MIN (>89) Result Diagram: 01/04/1740501/04/17405 Cardiovascular: RRR Telemetry: NSR Pulmonary: Decreased BS on right with audible leak GI/: NABS Incision: dry and intact CT: 120ml/24 hrs, large air leak Plan: PATH pending Large BPF - I doubt this will resolve with conservative management. PATH should be back tomorrow and he has dialysis. Plan to re-explore Thursday if there is no improvement. I discussed this with the patient and he agrees with plan. (1) Pulmonary infiltrate in right lung on chest x-ray Plan: pulm toileting nebs, ezpap OOB ambulate consult PT pain control cultures neg to date path pending f/u cxr in am keep chest tube to wall suction (2) Pneumonia Plan: post ABX/ ID signed off Problem Qualifiers (1) Pneumonia: Qualified Codes: J18.1 - Lobar pneumonia, unspecified organism Carmelita Roth MD Jan 04, 2017 10:10
[2017-01-04] MEDS: ASCORBIC ACID 500 MG TAB PO SCH ×2 (12:15→17:05)
[2017-01-04] MEDS: FERROUS SULFATE 325 MG (65 MG ELEMENTAL IRON) TAB PO SCH ×2 (12:15→17:05)
[2017-01-04] MEDS: RESP: BUDESONIDE 0.5 MG/2 ML NEB NEB SCH ×2 (12:46→20:51)
--- NOTE | 2017-01-04 13:50 | HHI.PR ---
Subjective Remarks RN denies any setbacks since last night. Patient himself says that he has had significant difficulty with shortness of breath, still largely unchanged, but did note that he had conversive dyspnea just speaking to a relative over the phone Objective Vital Signs Date Time Temp Pulse Resp B/P (MAP) Pulse Ox O2 Delivery O2 Flow Rate FiO2 01/04/17 12:47 92 Nasal Cannula 3.00 01/04/17 12:00 88 01/04/17 11:00 94 Nasal Cannula 3.00 Humidified 01/04/17 11:00 90 01/04/17 11:00 97.7 81 22 136/80 (98) 94 01/04/17 10:00 76 01/04/17 09:00 78 01/04/17 08:00 90 01/04/17 07:00 70 01/04/17 07:00 98 Nasal Cannula 3.00 Humidified 01/04/17 07:00 97.9 71 20 167/106 (126) 98 01/04/17 06:00 74 01/04/17 06:00 4 01/04/17 05:00 72 01/04/17 04:00 70 01/04/17 04:00 97.9 92 20 118/77 (91) 92 01/04/17 04:00 96 Nasal Cannula 4.00 Humidified 01/04/17 03:00 70 01/04/17 02:00 82 01/04/17 01:00 84 01/04/17 00:00 84 01/04/17 00:00 96 Nasal Cannula 4.00 Humidified 01/03/17 23:58 98.0 83 20 150/91 (110) 95 01/03/17 23:00 82 01/03/17 22:00 82 01/03/17 21:34 20 01/03/17 21:17 95 Nasal Cannula 4.50 01/03/17 21:00 92 01/03/17 20:00 96 Nasal Cannula 4.00 Humidified 01/03/17 20:00 88 01/03/17 20:00 98.2 91 22 158/93 (114) 96 01/03/17 19:00 98 01/03/17 18:03 94 01/03/17 17:00 92 01/03/17 16:04 89 01/03/17 15:00 95 01/03/17 15:00 98.7 92 20 137/86 (103) 93 01/03/17 15:00 93 Nasal Cannula 4.00 Humidified 01/03/17 14:00 20 01/03/17 14:00 102 I/O 01/03/17 01/03/17 01/03/17 01/04/17 01/04/17 01/04/17 07:00 15:00 23:00 07:00 15:00 23:00 Intake Total 470 ml 1185 ml Output Total 760 ml 470 ml Balance -290 ml 715 ml Intake Oral 470 ml 960 ml IV Total 225 ml Output Urine Total 600 ml 350 ml Chest Tube Drainage Total 160 ml 120 ml # Bowel Movements 0 1 Result Diagram: 01/04/17 0406 01/04/17 0406 Imaging Last Impressions Chest X-Ray 01/03/17 0600 Signed Impressions: Service Date/Time: Tuesday, January 03, 2017 05:06 - CONCLUSION: 1. Right chest tube with slight increase in size of right basilar pneumothorax since January 02. Rios Lai MD Lung Biopsy CT 12/23/16 0000 Signed Impressions: Service Date/Time: Friday, December 23, 2016 09:37 - CONCLUSION: Uncomplicated CT guided biopsy/aspiration. Broderick Ndiaye MD Chest CT 12/17/16 1715 Signed Impressions: Service Date/Time: Saturday, December 17, 2016 17:51 - CONCLUSION: 1. Dense consolidation persists in the right upper lobe with air bronchograms and air filled cystic spaces. Debris versus possible fungus ball in one of the cystic spaces at the apex which is new. Multi-organism pneumonia suspected. 2. Non-consolidative patchy infiltrate of the right middle and lower lobes not significantly changed. 3. Decreased pleural effusion on the right, now trace. Completely resolved pleural effusion on the left. 4. Previous median sternotomy. Caio Wray MD Upper Extremity Ultrasound 12/04/16 0000 Signed Impressions: Service Date/Time: November 18:26 - CONCLUSION: Venous mapping as delineated above. The cephalic veins are abnormal bilaterally. Caio Villalpando MD Renal Biopsy CT 12/02/16 1350 Signed Impressions: Service Date/Time: Friday, December 02, 2016 08:33 - CONCLUSION: Uncomplicated CT guided biopsy of the right kidney for function. Mustapha Vela Jr., MD Catheter Placement X-Ray 11/28/16 0000 Signed Impressions: Service Date/Time: Monday, November 28, 2016 15:57 - CONCLUSION: Uncomplicated PermaCath placement as above. Mustapha Vela Jr., MD Renal Ultrasound 11/22/16 0000 Signed Impressions: Service Date/Time: Tuesday, November 22, 2016 17:14 - CONCLUSION: Mild pelvocaliectasis right kidney not present previously. Obdulia Garcia MD Objective Remarks Chest tube in place over right chest wall, draining well unlabored breathing today, no wheezing, obvious crepitus over right hemithorax, shoulder and forearm On nasal cannula, no cyanosis no clubbing A/P Assessment and Plan Mr. Fonseca is a 55-year-old male patient with a known medical history of CAD s/ p CABG and CKD who presented to the ED with complaints of increasing dyspnea, generalized weakness, fevers and frequent diaphoresis x 2 weeks. Hypoxia - pneumothorax, chest wall leak , see tx below Extensive right lung pneumonia with cavitation - CT chest 11/26 dense consolidative right upper lobe pneumonia with severe emphysema with cavitary foci within the consolidated areas, patchy right middle and lower lobe pneumonia - Pulmonary following, completed cefepime regimen. - RUL BAL 12/05 negative for malignant cells - CT guided bx 12/23 negative for fungus, AFB or malignancy. Substantial fibrosis noted. - Sputum culture negative. Bronchial cultures negative. Negative Aspergillus titers. - 12/31 Patient sp right thoracotomy, lysis of adhesions, decortication, pleural biopsy on 12/30. Patient with uncontrolled pain. Continue pain control with morphine PUNCH [employer]ISH[employer] pump and fentanyl 25 g IV push for breakthrough pain as prescribed by cardiac thoracic surgery. Anticipate OR intervention again per CTS in 2 days. Nonsustained asymptomatic Vtach - No recurrence, electroltes and Mg wnl. Stable rhythm currently. EF 60-65 %. COPD Exacerbation - steroids, transition to orals tomorrow Hyperkalemia - resolved ESRD - Per nephrology will need custodial dialysis (MWF). - Patient underwent AV fistula surgery on 12/10/2016. However, patient may need AV graft. - US kidney/renal/bladder ordered and reviewed showing mild pelvocaliectasis right kidney. - per path, membranoproliferative glomerulonephritis - CM and nephrology are working together to arrange outpatient dialysis - plan is for him to enter transitional HD program at [place] Normochromic, normocytic anemia suspect secondary to acute blood loss/ hematochezia - Transfused total of 6 PRBCs since admission, and transfuse for HgB<7.0 - Continue Protonix 40 mg twice a day - EGD/Colonoscopy on 12/18/2016 - neg. - Epogen per Nephrology - 12/31 hemoglobin stable at 8.2 Full code. DVT Prophylaxis: SCDs/TEDs., Ambulation. Joselito Nava MD Jan 04, 2017 13:50
--- NOTE | 2017-01-04 16:32 | HHI.NPPN ---
Subjective General Problems: Anemia Renal Failure: Acute Additional Remarks No acute complaints today, some ongoing dyspnea Review of Systems General Constitutional: Fatigue Respiratory Lungs: Cough, Sputum Respiratory Remarks slightly hemoptysis Musculoskeletal MS: Pain/Stiffness Objective Data Data Vital Signs Date Time Temp Pulse Resp B/P (MAP) Pulse Ox O2 Delivery O2 Flow Rate FiO2 01/04/17 16:00 78 01/04/17 15:00 95 Nasal Cannula 3.00 Humidified 01/04/17 15:00 97.9 84 20 127/77 (94) 95 01/04/17 15:00 81 01/04/17 14:00 79 01/04/17 14:00 20 01/04/17 13:00 83 01/04/17 12:47 92 Nasal Cannula 3.00 01/04/17 12:00 88 01/04/17 11:00 94 Nasal Cannula 3.00 Humidified 01/04/17 11:00 90 01/04/17 11:00 97.7 81 22 136/80 (98) 94 01/04/17 10:00 76 01/04/17 09:00 78 01/04/17 08:00 90 01/04/17 07:00 70 01/04/17 07:00 98 Nasal Cannula 3.00 Humidified 01/04/17 07:00 97.9 71 20 167/106 (126) 98 01/04/17 06:00 74 01/04/17 06:00 4 01/04/17 05:00 72 01/04/17 04:00 70 01/04/17 04:00 97.9 92 20 118/77 (91) 92 01/04/17 04:00 96 Nasal Cannula 4.00 Humidified 01/04/17 03:00 70 01/04/17 02:00 82 01/04/17 01:00 84 01/04/17 00:00 84 01/04/17 00:00 96 Nasal Cannula 4.00 Humidified 01/03/17 23:58 98.0 83 20 150/91 (110) 95 01/03/17 23:00 82 01/03/17 22:00 82 01/03/17 21:34 20 01/03/17 21:17 95 Nasal Cannula 4.50 01/03/17 21:00 92 01/03/17 20:00 96 Nasal Cannula 4.00 Humidified 01/03/17 20:00 88 01/03/17 20:00 98.2 91 22 158/93 (114) 96 01/03/17 19:00 98 01/03/17 18:03 94 01/03/17 17:00 92 -: 01/04/17 0406 01/04/17 0406 Tubes & Lines: Perma-Cath Tubes & Lines Comment chest tube right. Physical Exam General Appearance: No Acute Distress, Comfortable Eyes Eye Exam: Pupils Equal, Pupils Reactive Throat Throat Exam: Oral Mucosa [place] & Moist Neck Neck Exam: Neck Supple Pulmonary Resp Exam: No Distress, Crackles, Rhonchi, Decreased Bases Cardiology CV Exam: Regular, Normal Sinus Rhythm, Good Perfusion Gastrointestinal/Abdomen GI Exam: Soft, Non-Tender, Bowel Sounds Present, Positive Bowel Movement Musculoskeletal MS Exam: Joints Intact, Normal Gait, Normal Tone, Good Strength Integumentary Skin Exam: Clear, Warm, Dry, Intact Extremeties Extremities Exam: No Edema, Pedal Pulses Palpable Neurologic Neuro Exam: Alert, Awake, Oriented, Speech Clear, Moving All Extremities Psychiatric Psych Exam: Appropriate Responses Assessment/Plan Discussed Condition With: Patient Assessment Summary: SEJAL/Acute Renal Failure, Anemia of CKD Electrolyte Assessment: Hyperkalemia, Metabolic Acidosis Problem List: (1) Chronic kidney disease, stage 5 ICD Codes: N18.5 - Chronic kidney disease, stage 5 Status: Chronic Plan: Patient likely has reached ESRD. s/p renal biopsy this admission. Of note he is non oliguric. Continue dialysis support MWF. HD last done Thursday, next HD Thursday. Continue nutritional support with meals; on high protein diet Follow up with Dr. Pyle for AV access - planned outpatient evaluation. The plan is for him to enter transitional HD program at [place]. When he is approved he can be discharged, may take several weeks. Will keep in touch with case management regarding insurance; now he is being applied for medicare. (2) Hypokalemia ICD Codes: E87.6 - Hypokalemia Status: Resolved Plan: corrected; thought to have a proximal tubule disorder Follow labs, he is off daily replacement 24 hour urine for potassium shows he has renal wasting (3) Pneumonia ICD Codes: J18.9 - Pneumonia, unspecified organism Status: Acute Plan: Pulmonary and CTS surgery are following, s/p bronchoscopy. No malignancies identified. Biopsy negative for pulmonary aspergillus fungal ball in right lung s/p right thoracotomy 12/30 with chest tube placement Continue supportive care (4) Hypocalcemia ICD Codes: E83.51 - Hypocalcemia Plan: Continue to treat hyperphosphatemia, on Sevelamer with meals. (5) Anemia ICD Codes: D64.9 - Anemia Status: Chronic Plan: Transfuse as needed, Most recent 12/30 Continue high dose of Epogen with dialysis. Hgb 8.2-> 7.8 today (6) Acidosis ICD Codes: E87.2 - Acidosis Status: Acute Plan: corrected, monitor (7) GI bleed ICD Codes: K92.2 - Gastrointestinal hemorrhage, unspecified Status: Acute Plan: GI has signed off; s/p EGD/colonoscopy may need capsule endoscopy outpatient Plan Problem Qualifiers (1) Pneumonia: Qualified Codes: J18.1 - Lobar pneumonia, unspecified organism (2) Anemia: Qualified Codes: N18.5 - Chronic kidney disease, stage 5; D63.1 - Anemia in chronic kidney disease (3) GI bleed: Andrea Dallas MD Jan 04, 2017 16:32
--- NOTE | 2017-01-04 17:18 | HHI.PR ---
Subjective Remarks Went for a Right Thoracotomy and right Upper lobe biopsies and Decortication.Has a leak from chest tube. No SOB at Rest Has some subcutaneous emphysema. No fever Objective Vital Signs Date Time Temp Pulse Resp B/P (MAP) Pulse Ox O2 Delivery O2 Flow Rate FiO2 01/04/17 16:00 78 01/04/17 15:00 95 Nasal Cannula 3.00 Humidified 01/04/17 15:00 97.9 84 20 127/77 (94) 95 01/04/17 15:00 81 01/04/17 14:00 79 01/04/17 14:00 20 01/04/17 13:00 83 01/04/17 12:47 92 Nasal Cannula 3.00 01/04/17 12:00 88 01/04/17 11:00 94 Nasal Cannula 3.00 Humidified 01/04/17 11:00 90 01/04/17 11:00 97.7 81 22 136/80 (98) 94 01/04/17 10:00 76 01/04/17 09:00 78 01/04/17 08:00 90 01/04/17 07:00 70 01/04/17 07:00 98 Nasal Cannula 3.00 Humidified 01/04/17 07:00 97.9 71 20 167/106 (126) 98 01/04/17 06:00 74 01/04/17 06:00 4 01/04/17 05:00 72 01/04/17 04:00 70 01/04/17 04:00 97.9 92 20 118/77 (91) 92 01/04/17 04:00 96 Nasal Cannula 4.00 Humidified 01/04/17 03:00 70 01/04/17 02:00 82 01/04/17 01:00 84 01/04/17 00:00 84 01/04/17 00:00 96 Nasal Cannula 4.00 Humidified 01/03/17 23:58 98.0 83 20 150/91 (110) 95 01/03/17 23:00 82 01/03/17 22:00 82 01/03/17 21:34 20 01/03/17 21:17 95 Nasal Cannula 4.50 01/03/17 21:00 92 01/03/17 20:00 96 Nasal Cannula 4.00 Humidified 01/03/17 20:00 88 01/03/17 20:00 98.2 91 22 158/93 (114) 96 01/03/17 19:00 98 01/03/17 18:03 94 I/O 01/03/17 01/03/17 01/03/17 01/04/17 01/04/17 01/04/17 07:00 15:00 23:00 07:00 15:00 23:00 Intake Total 470 ml 1185 ml Output Total 760 ml 470 ml Balance -290 ml 715 ml Intake Oral 470 ml 960 ml IV Total 225 ml Output Urine Total 600 ml 350 ml Chest Tube Drainage Total 160 ml 120 ml # Bowel Movements 0 1 Result Diagram: 01/04/1740501/04/17405 Objective Remarks GENERAL: This is a middle-aged averagely built white male who is alert and in no distress . HEAD, EYES, EARS, NOSE, THROAT: Head normocephalic. The pupils are reactive. Throat is clear. NECK: The neck is supple. No bruits. No thyroid enlargement. No lymphadenopathy.Subcutaneous emphysema of chest wall on right and over neck CHEST: Equal movements. Occ wheeze heard over Right chest and no Crackles. HEART: Heart sounds are regular. S1 and S2. No murmur. ABDOMEN: Abdomen is soft and nontender. No masses EXTREMITIES: No edema. No calf tenderness. NEUROLOGIC: Reflexes are normal. No focal deficits. SKIN: Warm. Assessment and Plan Assessment and Plan IMPRESSION: 1. Extensive right lung pneumonia with hypoxemia. 2. Chronic kidney disease with acute renal failure. 3. COPD with emphysema and chronic bronchitis. 4. History of coronary artery bypass grafting. Plan : 1. Chest tube to wall suction 2. O2 3 L. N/C 3. Nebs qid , duoneb 4. IS at bedside qid. 5. Possible re exploration of right chest and pleurodesis 6. CXR in am and CBC Alison Wilson MD Jan 04, 2017 17:18
[2017-01-04] MEDS: RESP: ALBUTEROL 2.5 MG/3 ML NEB (PRN) NEB (20:46)
[2017-01-04] MEDS: PANTOPRAZOLE SOD 40 MG DELAYED RELEASE TAB PO SCH (20:54)
[2017-01-05] VITALS (26 sets, daily range): BP systolic 95–149; BP diastolic 55–88; PULSE 16–112; RESP 16–20; TEMP 97.6–99.5; O2SAT 92–97
[2017-01-05] MEDS: MORPHINE SULFATE 30 MG/30 ML PCA IV SCH ×2 (00:39→18:04)
[2017-01-05] MEDS: guaiFENesin/CODEINE SYRUP 200 MG/20 MG/10 ML CUP PO PRN (02:24)
[2017-01-05] MEDS: SEVELAMER CARBONATE 800 MG TAB PO SCH ×4 (08:00→20:52)
[2017-01-05] MEDS: RESP: BUDESONIDE 0.5 MG/2 ML NEB NEB SCH ×2 (08:41→21:27)
[2017-01-05] MEDS: HYDROCORTISONE ACETATE 25 MG SUPP RECTAL SCH ×3 (09:00→20:52)
[2017-01-05] MEDS: SODIUM CHLORIDE 0.9% FLUSH 5 ML FLUSH IV FLUSH SCH ×2 (09:00→20:53)
--- NOTE | 2017-01-05 10:12 | HHI.NPPN ---
Subjective General Problems: Anemia Renal Failure: Acute Interval History He is visibly dyspneic, reporting pain. Has subcutaneous emphysema on right side. To have reexploration tomorrow with pleurodesis placement. (Milla Pack) Review of Systems General Constitutional: Fatigue (Milla Pack) Respiratory Lungs: Cough, Sputum Respiratory Remarks slightly hemoptysis (Milla Pack) Musculoskeletal MS: Pain/Stiffness (Milla Pack) Objective Data Data Vital Signs Date Time Temp Pulse Resp B/P (MAP) Pulse Ox O2 Delivery O2 Flow Rate FiO2 01/05/17 08:41 96 Nasal Cannula 2.00 01/05/17 07:00 98.1 16 16 95/55 (68) 97 01/05/17 07:00 97.6 93 18 137/88 (104) 92 01/05/17 06:00 82 01/05/17 05:34 97.8 82 20 149/84 (105) 94 01/05/17 05:00 82 01/05/17 04:00 91 01/05/17 03:33 96 Nasal Cannula 3.00 Humidified 01/05/17 03:00 92 01/05/17 02:00 90 01/05/17 01:00 105 01/05/17 00:39 20 01/05/17 00:00 98 01/05/17 00:00 91 01/05/17 00:00 97.8 98 20 140/85 (103) 94 01/04/17 23:01 91 01/04/17 23:01 96 Nasal Cannula 3.00 Humidified 01/04/17 22:00 101 01/04/17 22:00 20 01/04/17 21:00 87 01/04/17 20:46 93 Nasal Cannula 2.00 01/04/17 20:00 87 01/04/17 20:00 96 Nasal Cannula 3.00 Humidified 01/04/17 20:00 98.0 92 20 152/94 (113) 96 01/04/17 19:00 74 01/04/17 18:00 78 01/04/17 17:00 89 01/04/17 16:00 78 01/04/17 15:00 95 Nasal Cannula 3.00 Humidified 01/04/17 15:00 97.9 84 20 127/77 (94) 95 01/04/17 15:00 81 01/04/17 14:00 79 01/04/17 14:00 20 01/04/17 13:00 83 01/04/17 12:47 92 Nasal Cannula 3.00 01/04/17 12:00 88 01/04/17 11:00 94 Nasal Cannula 3.00 Humidified 01/04/17 11:00 90 01/04/17 11:00 97.7 81 22 136/80 (98) 94 (Milla Pack) -: 01/04/17 0406 01/04/17 0406 Imaging Last Impressions Chest X-Ray 01/04/17 0600 Signed Impressions: Service Date/Time: Wednesday, January 04, 2017 05:16 - CONCLUSION: 1. Right chest tube with relatively stable right pneumothorax predominantly at the right lung base with consolidation and cavitation also stable. Air leak on the right with some new subcutaneous air in the left chest wall since January 03. Rios Lai MD Lung Biopsy CT 12/23/16 0000 Signed Impressions: Service Date/Time: Friday, December 23, 2016 09:37 - CONCLUSION: Uncomplicated CT guided biopsy/aspiration. Broderick Ndiaye MD Chest CT 12/17/16 1715 Signed Impressions: Service Date/Time: Saturday, December 17, 2016 17:51 - CONCLUSION: 1. Dense consolidation persists in the right upper lobe with air bronchograms and air filled cystic spaces. Debris versus possible fungus ball in one of the cystic spaces at the apex which is new. Multi-organism pneumonia suspected. 2. Non-consolidative patchy infiltrate of the right middle and lower lobes not significantly changed. 3. Decreased pleural effusion on the right, now trace. Completely resolved pleural effusion on the left. 4. Previous median sternotomy. Caio Wray MD Upper Extremity Ultrasound 12/04/16 0000 Signed Impressions: Service Date/Time: November 18:26 - CONCLUSION: Venous mapping as delineated above. The cephalic veins are abnormal bilaterally. Caio Villalpando MD Renal Biopsy CT 12/02/16 1350 Signed Impressions: Service Date/Time: Friday, December 02, 2016 08:33 - CONCLUSION: Uncomplicated CT guided biopsy of the right kidney for function. Mustapha Vela Jr., MD Catheter Placement X-Ray 11/28/16 0000 Signed Impressions: Service Date/Time: Monday, November 28, 2016 15:57 - CONCLUSION: Uncomplicated PermaCath placement as above. Mustapha Vela Jr., MD Renal Ultrasound 11/22/16 0000 Signed Impressions: Service Date/Time: Tuesday, November 22, 2016 17:14 - CONCLUSION: Mild pelvocaliectasis right kidney not present previously. Obdulia Garcia MD Tubes & Lines: Perma-Cath Tubes & Lines Comment chest tube right. (Milla Pack B. STATISTICAL REPORTING ANALYST) Physical Exam General Appearance: No Acute Distress, Comfortable, Pale, Malnourished (Milla Pack B. STATISTICAL REPORTING ANALYST) Eyes Eye Exam: Pupils Equal, Pupils Reactive (Milla Pack B. STATISTICAL REPORTING ANALYST) Throat Throat Exam: Oral Mucosa [place] & Moist (Philip Packon B. STATISTICAL REPORTING ANALYST) Neck Neck Exam: Neck Supple (Milla Pack B. STATISTICAL REPORTING ANALYST) Pulmonary Resp Exam: No Distress, Crackles, Rhonchi, Decreased Bases Resp Remarks course right side lung sounds; chest tube right subcutaneous air right arm, right lower abdomen, upper chest wall (Philip Packon B. STATISTICAL REPORTING ANALYST) Cardiology CV Exam: Regular, Normal Sinus Rhythm, Good Perfusion (Philip Packon B. STATISTICAL REPORTING ANALYST) Gastrointestinal/Abdomen GI Exam: Soft, Non-Tender, Bowel Sounds Present, Positive Bowel Movement (Milla Pack B. STATISTICAL REPORTING ANALYST) Musculoskeletal MS Exam: Joints Intact, Normal Gait, Normal Tone, Atrophy (Milla Pack B. STATISTICAL REPORTING ANALYST) Integumentary Skin Exam: Clear, Warm, Dry, Intact (Milla Pack B. STATISTICAL REPORTING ANALYST) Extremeties Extremities Exam: No Edema, Pedal Pulses Palpable (Milla Pack B. STATISTICAL REPORTING ANALYST) Neurologic Neuro Exam: Alert, Awake, Oriented, Speech Clear, Moving All Extremities (Milla Pack B. STATISTICAL REPORTING ANALYST) Psychiatric Psych Exam: Appropriate Responses (Milla Pack BCee STATISTICAL REPORTING ANALYST) Assessment/Plan Discussed Condition With: Patient Assessment Summary: SEJAL/Acute Renal Failure, Anemia of CKD Electrolyte Assessment: Hyperkalemia, Metabolic Acidosis Problem List: (1) Chronic kidney disease, stage 5 ICD Codes: N18.5 - Chronic kidney disease, stage 5 Status: Chronic Plan: Patient likely has reached ESRD. s/p renal biopsy this admission. Of note he is non oliguric. Continue dialysis support MWF. He is due today Continue nutritional support with meals; on high protein diet Follow up with Dr. Pyle for AV access - will have him evaluate this week or next. The plan is for him to enter transitional HD program at [place]. When he is approved he can be discharged, may take several weeks. Will keep in touch with case management regarding insurance; now he is being applied for medicare. (2) Pneumonia ICD Codes: J18.9 - Pneumonia, unspecified organism Status: Acute Plan: Pulmonary and CTS surgery are following, s/p bronchoscopy. No malignancies identified. Biopsy negative for pulmonary aspergillus fungal ball in right lung s/p right thoracotomy 12/30 with chest tube placement Continue supportive care (3) Hypokalemia ICD Codes: E87.6 - Hypokalemia Status: Resolved Plan: corrected; thought to have a proximal tubule disorder Follow labs, he is off daily replacement 24 hour urine for potassium shows he has renal wasting (4) Hypocalcemia ICD Codes: E83.51 - Hypocalcemia Plan: Continue to treat hyperphosphatemia, on Sevelamer with meals. (5) Anemia ICD Codes: D64.9 - Anemia Status: Chronic Plan: Transfuse as needed, Most recent 12/30 Continue high dose of Epogen with dialysis. transfuse if needed (6) Acidosis ICD Codes: E87.2 - Acidosis Status: Acute Plan: corrected, monitor (7) GI bleed ICD Codes: K92.2 - Gastrointestinal hemorrhage, unspecified Status: Acute Plan: GI has signed off; s/p EGD/colonoscopy may need capsule endoscopy outpatient Plan (Milla Pack) Plan patient was seen and examined. Agree with above assessment and plan. (Jim Zuluaga MD) Problem Qualifiers (1) Pneumonia: Qualified Codes: J18.1 - Lobar pneumonia, unspecified organism (2) Anemia: Qualified Codes: N18.5 - Chronic kidney disease, stage 5; D63.1 - Anemia in chronic kidney disease (3) GI bleed: Milla Pack Jan 05, 2017 10:12 Jim Zuluaga MD Jan 05, 2017 21:22
[2017-01-05] MEDS: LACTOBACILLUS ACIDOPHILUS TAB PO SCH ×2 (10:16→20:50)
[2017-01-05] MEDS: DOCUSATE SODIUM 100 MG CAP PO SCH ×2 (10:16→20:50)
[2017-01-05] MEDS: CHOLECALCIFEROL (VIT D3) 1000 UNIT TAB PO SCH (10:16)
[2017-01-05] MEDS: POLYETHYLENE GLYCOL 17 GM PKG PO SCH (10:16)
[2017-01-05] MEDS: methylPREDNISolone SOD SUCC 125 MG/2 ML VIAL IV PUSH SCH ×2 (10:17→20:51)
--- NOTE | 2017-01-05 10:38 | PD.CAR.PN ---
CVT Progress Note CVT: POD #: 6 Subjective/Hospital Course: ct guided lung bx / no fungal elements Dr Claire Lott requesting re-eval for possible thoractomy discussed with pt right thoracotomy for pulmonary resection Dr Roth will discuss further with pt on Thursday tentatively scheduled for 2nd case 12/29 Dr Roth discussed surgery / risks / procedure with pt / he ia agreeable to proceed for surgery in am 12/30 Right thoracotomy with VATS assist, lysis of adhesions, decortication, pleural biopsies and cultures, right upper lobe biopsies and cultures Right upper lobe resection was considered, but not technically feasible due to the dense consolidation, inflammation, and frozen hilum associated. 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 Denies dyspnea and comfortable 01/04/17 Persistent large air leak. No complaints otherwise 01/05/17 c/o pain related to chest tube site and pleuritic irritation. air leak a little better this morning. PATH still pending from biopsies submitted at the time of surgery last week. Objective: Vital Signs Date Time Temp Pulse Resp B/P (MAP) Pulse Ox O2 Delivery O2 Flow Rate FiO2 01/05/17 08:41 96 Nasal Cannula 2.00 01/05/17 07:00 98.1 16 16 95/55 (68) 97 01/05/17 07:00 97.6 93 18 137/88 (104) 92 01/05/17 06:00 82 01/05/17 05:34 97.8 82 20 149/84 (105) 94 01/05/17 05:00 82 01/05/17 04:00 91 01/05/17 03:33 96 Nasal Cannula 3.00 Humidified 01/05/17 03:00 92 01/05/17 02:00 90 01/05/17 01:00 105 01/05/17 00:39 20 01/05/17 00:00 98 01/05/17 00:00 91 01/05/17 00:00 97.8 98 20 140/85 (103) 94 01/04/17 23:01 91 01/04/17 23:01 96 Nasal Cannula 3.00 Humidified 01/04/17 22:00 101 01/04/17 22:00 20 01/04/17 21:00 87 01/04/17 20:46 93 Nasal Cannula 2.00 01/04/17 20:00 87 01/04/17 20:00 96 Nasal Cannula 3.00 Humidified 01/04/17 20:00 98.0 92 20 152/94 (113) 96 01/04/17 19:00 74 01/04/17 18:00 78 01/04/17 17:00 89 01/04/17 16:00 78 01/04/17 15:00 95 Nasal Cannula 3.00 Humidified 01/04/17 15:00 97.9 84 20 127/77 (94) 95 01/04/17 15:00 81 01/04/17 14:00 79 01/04/17 14:00 20 01/04/17 13:00 83 01/04/17 12:47 92 Nasal Cannula 3.00 01/04/17 12:00 88 01/04/17 11:00 94 Nasal Cannula 3.00 Humidified 01/04/17 11:00 90 01/04/17 11:00 97.7 81 22 136/80 (98) 94 Result Diagram: 01/04/1740501/04/17405 Cardiovascular: RRR Telemetry: NSR Pulmonary: Decreased BS on right GI/: NABS, NT Incision: dry and intact CT: moderate air leak Plan: Modest improvement in air leak this morning and the PATH is not resulted from the time of surgery. Patient has dialysis today. Will contact Pathology for status of report and continue to monitor chest tube/air leak. I will also contact Dr. Hernandez today. CXR in AM (1) Pulmonary infiltrate in right lung on chest x-ray Plan: pulm toileting nebs, ezpap OOB ambulate consult PT pain control cultures neg to date path pending f/u cxr in am keep chest tube to wall suction (2) Pneumonia Plan: post ABX/ ID signed off Problem Qualifiers (1) Pneumonia: Qualified Codes: J18.1 - Lobar pneumonia, unspecified organism Carmelita Roth MD Jan 05, 2017 10:38
[2017-01-05] MEDS: FERROUS SULFATE 325 MG (65 MG ELEMENTAL IRON) TAB PO SCH ×2 (12:12→20:51)
[2017-01-05] MEDS: ASCORBIC ACID 500 MG TAB PO SCH ×2 (12:14→20:55)
--- NOTE | 2017-01-05 12:23 | HHI.PR ---
Subjective Remarks S/P Right Thoracotomy and right Upper lobe biopsies and Decortication. Has a leak from chest tube. No SOB at Rest . On o2 3 L. Has some subcutaneous emphysema. C/O pain in chest. 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 Objective Vital Signs Date Time Temp Pulse Resp B/P (MAP) Pulse Ox O2 Delivery O2 Flow Rate FiO2 01/05/17 12:00 90 01/05/17 11:00 96 Nasal Cannula 2.00 01/05/17 11:00 98.3 93 16 140/88 (105) 96 01/05/17 11:00 93 01/05/17 10:00 95 01/05/17 09:00 98 01/05/17 08:41 96 Nasal Cannula 2.00 01/05/17 08:00 93 01/05/17 08:00 97 Nasal Cannula 2.00 01/05/17 07:00 98.1 16 16 95/55 (68) 97 01/05/17 07:00 97.6 93 18 137/88 (104) 92 01/05/17 06:00 82 01/05/17 05:34 97.8 82 20 149/84 (105) 94 01/05/17 05:00 82 01/05/17 04:00 91 01/05/17 03:33 96 Nasal Cannula 3.00 Humidified 01/05/17 03:00 92 01/05/17 02:00 90 01/05/17 01:00 105 01/05/17 00:39 20 01/05/17 00:00 98 01/05/17 00:00 91 01/05/17 00:00 97.8 98 20 140/85 (103) 94 01/04/17 23:01 91 01/04/17 23:01 96 Nasal Cannula 3.00 Humidified 01/04/17 22:00 101 01/04/17 22:00 20 01/04/17 21:00 87 01/04/17 20:46 93 Nasal Cannula 2.00 01/04/17 20:00 87 01/04/17 20:00 96 Nasal Cannula 3.00 Humidified 01/04/17 20:00 98.0 92 20 152/94 (113) 96 01/04/17 19:00 74 01/04/17 18:00 78 01/04/17 17:00 89 01/04/17 16:00 78 01/04/17 15:00 95 Nasal Cannula 3.00 Humidified 01/04/17 15:00 97.9 84 20 127/77 (94) 95 01/04/17 15:00 81 01/04/17 14:00 79 01/04/17 14:00 20 01/04/17 13:00 83 01/04/17 12:47 92 Nasal Cannula 3.00 I/O 01/04/17 01/04/17 01/04/17 01/05/17 01/05/17 01/05/17 06:59 14:59 22:59 06:59 14:59 22:59 Intake Total 420 ml 720 ml 420 ml Output Total 1600 ml 830 ml 1410 ml Balance -1180 ml -110 ml -990 ml Intake Oral 420 ml 720 ml 420 ml Output Urine Total 1400 ml 700 ml 1200 ml Chest Tube Drainage Total 200 ml 130 ml 210 ml # Bowel Movements 0 Result Diagram: 01/04/1740501/04/17405 Objective Remarks GENERAL: This is a middle-aged averagely built white male who is alert and in no distress . HEAD, EYES, EARS, NOSE, THROAT: Head normocephalic. The pupils are reactive. Throat is clear. NECK: The neck is supple. No bruits. No thyroid enlargement. No lymphadenopathy.Subcutaneous emphysema of chest wall on right . CHEST: Equal movements. Occ wheeze heard over Right chest and Crackles. HEART: Heart sounds are regular. S1 and S2. No murmur. ABDOMEN: Abdomen is soft and nontender. No masses EXTREMITIES: No edema. No calf tenderness. NEUROLOGIC: Reflexes are normal. No focal deficits. SKIN: Warm. Assessment and Plan Assessment and Plan IMPRESSION: 1. Extensive right lung pneumonia with hypoxemia. 2. Chronic kidney disease with acute renal failure. 3. COPD with emphysema and chronic bronchitis. 4. History of coronary artery bypass grafting. Plan : 1. Chest tube to wall suction 2. O2 2 L. N/C 3. Nebs qid , duoneb 4. IS at bedside qid. 5. Possible re exploration of right chest and pleurodesis 6. Morphine 3 mg IV q3h 7. CXR in Alison Lizama MD Jan 05, 2017 12:23
[2017-01-05] MEDS: PCA - TOTAL MG MORPHINE DELIVERED PER SHIFT SCH ×2 (14:00→22:00)
--- NOTE | 2017-01-05 14:55 | HHI.PR ---
Subjective Remarks RN denies any setbacks since last night, air leak improved. Patient states that he still has difficulty with shortness of breath, still largely unchanged. Decreasing O2 requirement. Objective Vital Signs Date Time Temp Pulse Resp B/P (MAP) Pulse Ox O2 Delivery O2 Flow Rate FiO2 01/05/17 13:00 90 01/05/17 12:00 90 01/05/17 11:00 96 Nasal Cannula 2.00 01/05/17 11:00 98.3 93 16 140/88 (105) 96 01/05/17 11:00 93 01/05/17 10:00 95 01/05/17 09:00 98 01/05/17 08:41 96 Nasal Cannula 2.00 01/05/17 08:00 93 01/05/17 08:00 97 Nasal Cannula 2.00 01/05/17 07:00 98.1 16 16 95/55 (68) 97 01/05/17 07:00 97.6 93 18 137/88 (104) 92 01/05/17 06:00 82 01/05/17 05:34 97.8 82 20 149/84 (105) 94 01/05/17 05:00 82 01/05/17 04:00 91 01/05/17 03:33 96 Nasal Cannula 3.00 Humidified 01/05/17 03:00 92 01/05/17 02:00 90 01/05/17 01:00 105 01/05/17 00:39 20 01/05/17 00:00 98 01/05/17 00:00 91 01/05/17 00:00 97.8 98 20 140/85 (103) 94 01/04/17 23:01 91 01/04/17 23:01 96 Nasal Cannula 3.00 Humidified 01/04/17 22:00 101 01/04/17 22:00 20 01/04/17 21:00 87 01/04/17 20:46 93 Nasal Cannula 2.00 01/04/17 20:00 87 01/04/17 20:00 96 Nasal Cannula 3.00 Humidified 01/04/17 20:00 98.0 92 20 152/94 (113) 96 01/04/17 19:00 74 01/04/17 18:00 78 01/04/17 17:00 89 01/04/17 16:00 78 01/04/17 15:00 95 Nasal Cannula 3.00 Humidified 01/04/17 15:00 97.9 84 20 127/77 (94) 95 01/04/17 15:00 81 I/O 01/04/17 01/04/17 01/04/17 01/05/17 01/05/17 01/05/17 07:00 15:00 23:00 07:00 15:00 23:00 Intake Total 420 ml 720 ml 420 ml Output Total 1600 ml 830 ml 1410 ml Balance -1180 ml -110 ml -990 ml Intake Oral 420 ml 720 ml 420 ml Output Urine Total 1400 ml 700 ml 1200 ml Chest Tube Drainage Total 200 ml 130 ml 210 ml # Bowel Movements 0 Result Diagram: 01/04/17 0406 01/04/17405 Objective Remarks Chest tube in place over right chest wall, draining well mildly labored breathing today, no wheezing, obvious crepitus over right hemithorax, shoulder and forearm, now has crepitus over left shoulder as well ( less than right side), crepitus BS BL On nasal cannula, no cyanosis no clubbing A/P Assessment and Plan Mr. Fonseca is a 55-year-old male patient with a known medical history of CAD s/ p CABG and CKD who presented to the ED with complaints of increasing dyspnea, generalized weakness, fevers and frequent diaphoresis x 2 weeks. Hypoxia - pneumothorax, chest wall leak improving , see tx below, decreasing O2 requirement Extensive right lung pneumonia with cavitation - CT chest 11/26 dense consolidative right upper lobe pneumonia with severe emphysema with cavitary foci within the consolidated areas, patchy right middle and lower lobe pneumonia - Pulmonary following, completed cefepime regimen. - RUL BAL 12/05 negative for malignant cells - CT guided bx 12/23 negative for fungus, AFB or malignancy. Substantial fibrosis noted. - Sputum culture negative. Bronchial cultures negative. Negative Aspergillus titers. - 12/31 Patient sp right thoracotomy, lysis of adhesions, decortication, pleural biopsy on 12/30. Patient with uncontrolled pain. 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 D/w Dr. Roth, no plan for intervention jae, air leak improving. Nonsustained asymptomatic Vtach - No recurrence, electroltes and Mg wnl. Stable rhythm currently. EF 60-65 %. COPD Exacerbation - oral steroids ESRD - Per nephrology will need hrbp dialysis (MWF). - Patient underwent AV fistula surgery on 12/10/2016. However, patient may need AV graft. - US kidney/renal/bladder ordered and reviewed showing mild pelvocaliectasis right kidney. - per path, membranoproliferative glomerulonephritis - CM and nephrology are working together to arrange outpatient dialysis - plan is for him to enter transitional HD program at [place] [facility] Normochromic, normocytic anemia suspect secondary to acute blood loss/ hematochezia - Transfused total of 6 PRBCs since admission, and transfuse for HgB<7.0 - Continue Protonix 40 mg twice a day - EGD/Colonoscopy on 12/18/2016 - neg. - Epogen per Nephrology - 12/31 hemoglobin stable at 8.2 Full code.Clear for resuming lovenox per CTS. Joselito Nava MD Jan 05, 2017 14:55
[2017-01-05] MEDS: EPOETIN ALFA 4,000 UNITS/ML VIAL IV PRN (17:35)
[2017-01-05] MEDS: GENTAMICIN SULFATE (DIALYSIS USE ONLY) 20 MG/2 ML VIAL IV PRN (17:35)
[2017-01-05] MEDS: HEPARIN SODIUM - IV 10,000 UNITS/10 ML VIAL PRN (17:35)
[2017-01-05] MEDS: EPOETIN ALFA 10,000 UNITS/ML VIAL IV PRN (17:36)
[2017-01-05] MEDS: PANTOPRAZOLE SOD 40 MG DELAYED RELEASE TAB PO SCH (20:50)
[2017-01-05] MEDS: ENOXAPARIN SODIUM 30 MG/0.3 ML SYRINGE SQ SCH (20:55)
[2017-01-06] VITALS (29 sets, daily range): BP systolic 104–158; BP diastolic 67–87; PULSE 62–104; RESP 16–20; TEMP 96.7–98.1; O2SAT 94–98
--- NOTE | 2017-01-06 05:42 | RADRPT ---
EXAM DATE/TIME: 01/06/2017 04:48 [facility] COMPARISON: CHEST SINGLE AP, January 04, 2017, 5:16. INDICATIONS : Short of breath. MEDICAL HISTORY : Cardiovascular disease. Hypertension. Chronic obstructive pulmonary disease. Renal failure. SURGICAL HISTORY : CABG. ENCOUNTER: Subsequent ACUITY: 1 month PAIN SCORE: 0/10 LOCATION: Bilateral chest FINDINGS: Consolidation with volume loss again noted on the right. Right chest tube remains in place. The basil ar pneumothorax is much smaller. No infiltrate or pneumothorax on the left but left chest wall emphysema persists. CONCLUSION: Decreased right base pneumothorax, now very small. Right chest tube remains in place. Chronic consoli dation with volume loss on the right again noted. Caio Wray MD on January 06, 2017 at 5:39 Board Certified Radiologist. This report was verified electronically.
[2017-01-06] MEDS: PCA - TOTAL MG MORPHINE DELIVERED PER SHIFT SCH ×2 (06:00→14:00)
[2017-01-06] MEDS: SODIUM CHLORIDE 0.9% FLUSH 5 ML FLUSH IV FLUSH SCH ×2 (09:00→20:02)
[2017-01-06] MEDS: HYDROCORTISONE ACETATE 25 MG SUPP RECTAL SCH ×3 (09:00→20:01)
[2017-01-06] MEDS: POLYETHYLENE GLYCOL 17 GM PKG PO SCH (09:00)
--- NOTE | 2017-01-06 09:19 | HHI.NPPN ---
Subjective General Problems: Anemia Renal Failure: Acute Interval History Still reporting shortness of breath. Crepitus present, chest tube remains. Dialyzed yesterday. (Milla Pack) Review of Systems General Constitutional: Fatigue (Milla Pack) Respiratory Lungs: Cough, Sputum Respiratory Remarks slightly hemoptysis (Milla Pack) Musculoskeletal MS: Pain/Stiffness (Milla Pack) Objective Data Data Vital Signs Date Time Temp Pulse Resp B/P (MAP) Pulse Ox O2 Delivery O2 Flow Rate FiO2 01/06/17 08:00 97 01/06/17 07:00 95 Nasal Cannula 5.00 01/06/17 07:00 98 01/06/17 07:00 96.7 98 16 120/80 (93) 98 01/06/17 06:14 77 01/06/17 06:00 18 01/06/17 05:00 79 01/06/17 04:01 88 01/06/17 03:49 94 Nasal Cannula 5.00 01/06/17 03:49 98.1 99 20 109/75 (86) 94 01/06/17 03:00 87 01/06/17 02:00 90 01/06/17 01:00 96 01/06/17 00:00 104 01/05/17 23:45 98.5 104 18 110/70 (83) 94 01/05/17 23:45 94 Nasal Cannula 5.00 01/05/17 23:00 110 01/05/17 22:00 104 01/05/17 22:00 18 01/05/17 21:30 95 Nasal Cannula 5.00 01/05/17 21:00 108 01/05/17 20:30 95 Nasal Cannula 5.00 01/05/17 20:30 99.5 112 20 109/63 (78) 95 01/05/17 20:00 102 01/05/17 19:00 105 01/05/17 18:09 15 01/05/17 18:04 16 01/05/17 15:00 93 Nasal Cannula 2.00 01/05/17 15:00 97.7 100 18 131/75 (93) 93 01/05/17 15:00 100 01/05/17 14:00 16 01/05/17 14:00 90 01/05/17 13:00 90 01/05/17 12:00 90 01/05/17 11:00 96 Nasal Cannula 2.00 01/05/17 11:00 98.3 93 16 140/88 (105) 96 01/05/17 11:00 93 01/05/17 10:00 95 (Milla Pack) -: 01/04/17 0406 01/04/17 0406 Imaging Last Impressions Chest X-Ray 01/06/17 0600 Signed Impressions: Service Date/Time: Friday, January 06, 2017 04:48 - CONCLUSION: Decreased right base pneumothorax, now very small. Right chest tube remains in place. Chronic consolidation with volume loss on the right again noted. Caio Wray MD Lung Biopsy CT 12/23/16 0000 Signed Impressions: Service Date/Time: Friday, December 23, 2016 09:37 - CONCLUSION: Uncomplicated CT guided biopsy/aspiration. Broderick Ndiaye MD Chest CT 12/17/16 1715 Signed Impressions: Service Date/Time: Saturday, December 17, 2016 17:51 - CONCLUSION: 1. Dense consolidation persists in the right upper lobe with air bronchograms and air filled cystic spaces. Debris versus possible fungus ball in one of the cystic spaces at the apex which is new. Multi-organism pneumonia suspected. 2. Non-consolidative patchy infiltrate of the right middle and lower lobes not significantly changed. 3. Decreased pleural effusion on the right, now trace. Completely resolved pleural effusion on the left. 4. Previous median sternotomy. Caio Wray MD Upper Extremity Ultrasound 12/04/16 0000 Signed Impressions: Service Date/Time: November 18:26 - CONCLUSION: Venous mapping as delineated above. The cephalic veins are abnormal bilaterally. Caio Villalpando MD Renal Biopsy CT 12/02/16 1350 Signed Impressions: Service Date/Time: Friday, December 02, 2016 08:33 - CONCLUSION: Uncomplicated CT guided biopsy of the right kidney for function. Mustapha Vela Jr., MD Catheter Placement X-Ray 11/28/16 0000 Signed Impressions: Service Date/Time: Monday, November 28, 2016 15:57 - CONCLUSION: Uncomplicated PermaCath placement as above. Mustapha Vela Jr., MD Renal Ultrasound 11/22/16 0000 Signed Impressions: Service Date/Time: Tuesday, November 22, 2016 17:14 - CONCLUSION: Mild pelvocaliectasis right kidney not present previously. Obdulia Garcia MD Tubes & Lines: Perma-Cath Tubes & Lines Comment chest tube right. (Milla Pack MATRIX WORKER) Physical Exam General Appearance: No Acute Distress, Comfortable, Pale, Malnourished (Milla Pack MATRIX WORKER) Eyes Eye Exam: Pupils Equal, Pupils Reactive (Milla Pack B. MATRIX WORKER) Throat Throat Exam: Oral Mucosa Axis & Moist (Milla Pack B. MATRIX WORKER) Neck Neck Exam: Neck Supple (Milla Pack MATRIX WORKER) Pulmonary Resp Exam: No Distress, Crackles, Rhonchi, Decreased Bases Resp Remarks course right side lung sounds; chest tube right subcutaneous air right arm, right lower abdomen, upper chest wall (Milla Pack B. MATRIX WORKER) Cardiology CV Exam: Regular, Normal Sinus Rhythm, Good Perfusion (Milla Pack MATRIX WORKER) Gastrointestinal/Abdomen GI Exam: Soft, Non-Tender, Bowel Sounds Present, Positive Bowel Movement (Milla Pack B. MATRIX WORKER) Musculoskeletal MS Exam: Joints Intact, Normal Gait, Normal Tone, Atrophy (Milla Pack B. MATRIX WORKER) Integumentary Skin Exam: Clear, Warm, Dry, Intact (Milla Pack B. MATRIX WORKER) Extremeties Extremities Exam: No Edema, Pedal Pulses Palpable (Milla Pack BCee MATRIX WORKER) Neurologic Neuro Exam: Alert, Awake, Oriented, Speech Clear, Moving All Extremities (Milla Pack B. MATRIX WORKER) Psychiatric Psych Exam: Appropriate Responses (Milla PackP) Assessment/Plan Discussed Condition With: Patient Assessment Summary: SEJAL/Acute Renal Failure, Anemia of CKD Electrolyte Assessment: Metabolic Acidosis Problem List: (1) Chronic kidney disease, stage 5 ICD Codes: N18.5 - Chronic kidney disease, stage 5 Status: Chronic Plan: Patient likely has reached ESRD. s/p renal biopsy this admission. Of note he is non oliguric. Continue dialysis support MWF. 700 ml UF yesterday Continue nutritional support with meals; on high protein diet Follow up with Dr. Pyle for AV access - will have him evaluate this week or next. The plan is for him to enter transitional HD program at [place]. When he is approved he can be discharged, may take several weeks. Will keep in touch with case management regarding insurance; now he is being applied for medicare. (2) Pneumonia ICD Codes: J18.9 - Pneumonia, unspecified organism Status: Acute Plan: Pulmonary and CTS surgery are following, s/p bronchoscopy and thoracotomy with decortication Biopsy negative for pulmonary aspergillus fungal ball in right lung s/p right thoracotomy 12/30 with chest tube placement; had air leak that CTS is managing with pulmonary Continue supportive care (3) Hypokalemia ICD Codes: E87.6 - Hypokalemia Status: Resolved Plan: corrected; thought to have a proximal tubule disorder Follow labs, he is off daily replacement 24 hour urine for potassium shows he has renal wasting (4) Hypocalcemia ICD Codes: E83.51 - Hypocalcemia Plan: Continue to treat hyperphosphatemia, on Sevelamer with meals. (5) Anemia ICD Codes: D64.9 - Anemia Status: Chronic Plan: Transfuse as needed, Most recent 12/30 Continue high dose of Epogen with dialysis. transfuse if needed (6) Acidosis ICD Codes: E87.2 - Acidosis Status: Acute Plan: corrected, monitor (7) GI bleed ICD Codes: K92.2 - Gastrointestinal hemorrhage, unspecified Status: Acute Plan: GI has signed off; s/p EGD/colonoscopy may need capsule endoscopy outpatient (Milla Pack) Plan patient was seen and examined. Agree with above assessment and plan. (Jim Zuluaga MD) Problem Qualifiers (1) Pneumonia: Qualified Codes: J18.1 - Lobar pneumonia, unspecified organism (2) Anemia: Qualified Codes: N18.5 - Chronic kidney disease, stage 5; D63.1 - Anemia in chronic kidney disease (3) GI bleed: Milla Pack Jan 06, 2017 09:19 Jim Zuluaga MD Jan 06, 2017 20:47
[2017-01-06] MEDS: LACTOBACILLUS ACIDOPHILUS TAB PO SCH ×2 (09:24→20:01)
[2017-01-06] MEDS: DOCUSATE SODIUM 100 MG CAP PO SCH ×2 (09:24→20:01)
[2017-01-06] MEDS: SEVELAMER CARBONATE 800 MG TAB PO SCH ×3 (09:24→17:17)
[2017-01-06] MEDS: CHOLECALCIFEROL (VIT D3) 1000 UNIT TAB PO SCH (09:27)
[2017-01-06] MEDS: methylPREDNISolone SOD SUCC 125 MG/2 ML VIAL IV PUSH SCH (09:28)
[2017-01-06] MEDS: RESP: BUDESONIDE 0.5 MG/2 ML NEB NEB SCH ×2 (09:33→21:05)
[2017-01-06] MEDS: FERROUS SULFATE 325 MG (65 MG ELEMENTAL IRON) TAB PO SCH ×2 (13:28→17:17)
[2017-01-06] MEDS: ASCORBIC ACID 500 MG TAB PO SCH ×2 (14:00→17:19)
--- NOTE | 2017-01-06 14:43 | HHI.PR ---
Subjective Remarks RN denies any setbacks since last night, air leak steady. Pt on the other hand says he feels better today with his breathing. Objective Vital Signs Date Time Temp Pulse Resp B/P (MAP) Pulse Ox O2 Delivery O2 Flow Rate FiO2 01/06/17 14:00 93 01/06/17 13:00 89 01/06/17 12:00 94 01/06/17 11:00 95 Nasal Cannula 5.00 01/06/17 11:00 96 01/06/17 11:00 98.1 96 16 104/67 (79) 95 01/06/17 10:00 89 01/06/17 09:35 96 Nasal Cannula 5.00 01/06/17 09:00 86 01/06/17 08:00 97 01/06/17 07:00 95 Nasal Cannula 5.00 01/06/17 07:00 98 01/06/17 07:00 96.7 98 16 120/80 (93) 98 01/06/17 06:14 77 01/06/17 06:00 18 01/06/17 05:00 79 01/06/17 04:01 88 01/06/17 03:49 94 Nasal Cannula 5.00 01/06/17 03:49 98.1 99 20 109/75 (86) 94 01/06/17 03:00 87 01/06/17 02:00 90 01/06/17 01:00 96 01/06/17 00:00 104 01/05/17 23:45 98.5 104 18 110/70 (83) 94 01/05/17 23:45 94 Nasal Cannula 5.00 01/05/17 23:00 110 01/05/17 22:00 104 01/05/17 22:00 18 01/05/17 21:30 95 Nasal Cannula 5.00 01/05/17 21:00 108 01/05/17 20:30 95 Nasal Cannula 5.00 01/05/17 20:30 99.5 112 20 109/63 (78) 95 01/05/17 20:00 102 01/05/17 19:00 105 01/05/17 18:09 15 01/05/17 18:04 16 01/05/17 15:00 93 Nasal Cannula 2.00 01/05/17 15:00 97.7 100 18 131/75 (93) 93 01/05/17 15:00 100 I/O 01/05/17 01/05/17 01/05/17 01/06/17 01/06/17 01/06/17 07:00 15:00 23:00 07:00 15:00 23:00 Intake Total 420 ml 890 ml 702 ml Output Total 1410 ml 2170 ml 515 ml Balance -990 ml -1280 ml 187 ml Intake Oral 420 ml 350 ml 480 ml IV Total 540 ml 222 ml Output Urine Total 1200 ml 1350 ml 275 ml Chest Tube Drainage Total 210 ml 120 ml 240 ml Hemodialysis 700 ml # Bowel Movements 0 Result Diagram: 01/04/176 01/04/17405 Objective Remarks Chest tube in place over right chest wall, draining well mildly labored breathing today, no wheezing, unchanged crackles auscultated over bilateral lung june with right greater than left, palpable crepitus over bilateral shoulders and arms with right greater than left On nasal cannula, no cyanosis no clubbing A/P Assessment and Plan Mr. Fnoseca is a 55-year-old male patient with a known medical history of CAD s/ p CABG and CKD who presented to the ED with complaints of increasing dyspnea, generalized weakness, fevers and frequent diaphoresis x 2 weeks. Hypoxia - pneumothorax, chest wall leak improving , see tx below, decreasing O2 requirement Extensive right lung pneumonia with cavitation - CT chest 11/26 dense consolidative right upper lobe pneumonia with severe emphysema with cavitary foci within the consolidated areas, patchy right middle and lower lobe pneumonia - Pulmonary following, completed cefepime regimen. - RUL BAL 12/05 negative for malignant cells - CT guided bx 12/23 negative for fungus, AFB or malignancy. Substantial fibrosis noted. - Sputum culture negative. Bronchial cultures negative. Negative Aspergillus titers. - 12/31 Patient sp right thoracotomy, lysis of adhesions, decortication, pleural biopsy on 12/30. Patient with uncontrolled pain. Continue pain control with morphine ACCOUNTANT AUDITOR pump and fentanyl 25 g IV push for breakthrough pain as prescribed by cardiac thoracic surgery. 12/31 pleural and lung bx results pending. COPD - transitioning to oral steroids, wean accordingly ESRD - Per nephrology will need [facility] dialysis (MWF). - Patient underwent AV fistula surgery on 12/10/2016. However, patient may need AV graft. - US kidney/renal/bladder ordered and reviewed showing mild pelvocaliectasis right kidney. - per path, membranoproliferative glomerulonephritis - CM and nephrology are working together to arrange outpatient dialysis - plan is for him to enter transitional HD program at [facility] Normochromic, normocytic anemia suspect secondary to acute blood loss/ hematochezia - Transfused total of 6 PRBCs since admission, and transfuse for HgB<7.0 - Continue Protonix 40 mg twice a day - EGD/Colonoscopy on 12/18/2016 - neg. - Epogen per Nephrology - monitor hb. Full code, lovenox.. Joselito Nava MD Jan 06, 2017 14:43
[2017-01-06] MEDS ORDERED: predniSONE 50 MG TAB PO SCH (14:45)
--- NOTE | 2017-01-06 14:45 | PD.CAR.PN ---
CVT Progress Note Subjective/Hospital Course: ct guided lung bx / no fungal elements Dr Claire Lott requesting re-eval for possible thoractomy discussed with pt right thoracotomy for pulmonary resection Dr Roth will discuss further with pt on Thursday tentatively scheduled for case 12/29 Dr Roth discussed surgery / risks / procedure with pt / he ia agreeable to proceed for surgery in am 12/30 Right thoracotomy with VATS assist, lysis of adhesions, decortication, pleural biopsies and cultures, right upper lobe biopsies and cultures Right upper lobe resection was considered, but not technically feasible due to the dense consolidation, inflammation, and frozen hilum associated. 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, CLIENT FINANCE ANALYST dosing increase with breakthrough fentanly IV will need PT/ OOB ambulate pulm toileting path cultures pending 12/31 path and cultures pending 01/01 path pending no growth in cultures to date pain control improved, has ONQ pump and morphine CLIENT FINANCE ANALYST on GI motility meds ambulate/ OOB + 1 air leak in chest tube 01/02 now with +4 air leak + subq emphysema to right chest ONQ pump dc dressing removed / right chest tube site eval, no air air out of skin, reinforced with vaseline gauze no change in air leak remains on 01/03/17 Continues with impressive air leak and SQ emphysema. Denies dyspnea and comfortable 01/04/17 Persistent large air leak. No complaints otherwise 01/05/17 c/o pain related to chest tube site and pleuritic irritation. air leak a little better this morning. PATH still pending from biopsies submitted at the time of surgery last week. 01/06/17 still has extensive air leak ct to 20cm suction + sub q emphysema bilateral anterior chest wall and shoulders path pending will dc resolution analyst MS, prn norco for pain / breakthrough fentanly Objective: GENERAL: SKIN: Warm and dry. chest tube right chest wall + air leak + sub q emphysema HEAD: Normocephalic. EYES: No scleral icterus. No injection or drainage. NECK: Supple, trachea midline. No JVD or lymphadenopathy. CARDIOVASCULAR: Regular rate and rhythm without murmurs, gallops, or rubs. RESPIRATORY: Breath sounds equal bilaterally. No accessory muscle use. diminished right lung base GASTROINTESTINAL: Abdomen soft, non-tender, nondistended. MUSCULOSKELETAL: No cyanosis, or edema. BACK: Nontender without obvious deformity. No CVA tenderness. Vital Signs Date Time Temp Pulse Resp B/P (MAP) Pulse Ox O2 Delivery O2 Flow Rate FiO2 01/06/17 14:00 93 01/06/17 13:00 89 01/06/17 12:00 94 01/06/17 11:00 95 Nasal Cannula 5.00 01/06/17 11:00 96 01/06/17 11:00 98.1 96 16 104/67 (79) 95 01/06/17 10:00 89 01/06/17 09:35 96 Nasal Cannula 5.00 01/06/17 09:00 86 01/06/17 08:00 97 01/06/17 07:00 95 Nasal Cannula 5.00 01/06/17 07:00 98 01/06/17 07:00 96.7 98 16 120/80 (93) 98 01/06/17 06:14 77 01/06/17 06:00 18 01/06/17 05:00 79 01/06/17 04:01 88 01/06/17 03:49 94 Nasal Cannula 5.00 01/06/17 03:49 98.1 99 20 109/75 (86) 94 01/06/17 03:00 87 01/06/17 02:00 90 01/06/17 01:00 96 01/06/17 00:00 104 01/05/17 23:45 98.5 104 18 110/70 (83) 94 01/05/17 23:45 94 Nasal Cannula 5.00 01/05/17 23:00 110 01/05/17 22:00 104 01/05/17 22:00 18 01/05/17 21:30 95 Nasal Cannula 5.00 01/05/17 21:00 108 01/05/17 20:30 95 Nasal Cannula 5.00 01/05/17 20:30 99.5 112 20 109/63 (78) 95 01/05/17 20:00 102 01/05/17 19:00 105 01/05/17 18:09 15 01/05/17 18:04 16 01/05/17 15:00 93 Nasal Cannula 2.00 01/05/17 15:00 97.7 100 18 131/75 (93) 93 01/05/17 15:00 100 Result Diagram: 01/04/17 0406 01/04/17 0406 (1) Pulmonary infiltrate in right lung on chest x-ray Plan: pulm toileting nebs, ezpap OOB ambulate consult PT pain control / DC CLIENT FINANCE ANALYST/po norco prn cultures neg to date path pending keep chest tube to wall suction ( 20cm) (2) Pneumonia Plan: post ABX/ ID signed off Problem Qualifiers (1) Pneumonia: Qualified Codes: J18.1 - Lobar pneumonia, unspecified organism Marly Heart Jan 06, 2017 14:45
--- NOTE | 2017-01-06 18:44 | HHI.PR ---
Subjective Remarks S/P Right Thoracotomy and right Upper lobe biopsies and Decortication. Has a leak from chest tube. No SOB at Rest . On o2 3 L. Has some subcutaneous emphysema. C/O pain in chest. but better. Objective Vital Signs Date Time Temp Pulse Resp B/P (MAP) Pulse Ox O2 Delivery O2 Flow Rate FiO2 01/06/17 18:00 86 01/06/17 17:00 94 01/06/17 16:00 90 01/06/17 15:00 88 01/06/17 15:00 95 Nasal Cannula 5.00 01/06/17 15:00 97.3 88 16 128/72 (90) 95 01/06/17 14:00 93 01/06/17 13:00 89 01/06/17 12:00 94 01/06/17 11:00 95 Nasal Cannula 5.00 01/06/17 11:00 96 01/06/17 11:00 98.1 96 16 104/67 (79) 95 01/06/17 10:00 89 01/06/17 09:35 96 Nasal Cannula 5.00 01/06/17 09:00 86 01/06/17 08:00 97 01/06/17 07:00 95 Nasal Cannula 5.00 01/06/17 07:00 98 01/06/17 07:00 96.7 98 16 120/80 (93) 98 01/06/17 06:14 77 01/06/17 06:00 18 01/06/17 05:00 79 01/06/17 04:01 88 01/06/17 03:49 94 Nasal Cannula 5.00 01/06/17 03:49 98.1 99 20 109/75 (86) 94 01/06/17 03:00 87 01/06/17 02:00 90 01/06/17 01:00 96 01/06/17 00:00 104 01/05/17 23:45 98.5 104 18 110/70 (83) 94 01/05/17 23:45 94 Nasal Cannula 5.00 01/05/17 23:00 110 01/05/17 22:00 104 01/05/17 22:00 18 01/05/17 21:30 95 Nasal Cannula 5.00 01/05/17 21:00 108 01/05/17 20:30 95 Nasal Cannula 5.00 01/05/17 20:30 99.5 112 20 109/63 (78) 95 01/05/17 20:00 102 01/05/17 19:00 105 I/O 01/05/17 01/05/17 01/05/17 01/06/17 01/06/17 01/06/17 07:00 15:00 23:00 07:00 15:00 23:00 Intake Total 420 ml 890 ml 702 ml 946 ml Output Total 1410 ml 2170 ml 515 ml 940 ml Balance -990 ml -1280 ml 187 ml 6 ml Intake Oral 420 ml 350 ml 480 ml 400 ml IV Total 540 ml 222 ml 546 ml Output Urine Total 1200 ml 1350 ml 275 ml 750 ml Stool Total 0 ml Chest Tube Drainage Total 210 ml 120 ml 240 ml 190 ml Hemodialysis 700 ml # Bowel Movements 0 Result Diagram: 01/04/1740501/04/17405 Objective Remarks GENERAL: This is a middle-aged averagely built white male who is alert and in no distress . HEAD, EYES, EARS, NOSE, THROAT: Head normocephalic. The pupils are reactive. Throat is clear. NECK: The neck is supple. No bruits. No thyroid enlargement. No lymphadenopathy.Subcutaneous emphysema of chest wall on right . CHEST: Equal movements. Occ wheeze heard over Right chest and Occ Crackles. HEART: Heart sounds are regular. S1 and S2. No murmur. ABDOMEN: Abdomen is soft and nontender. No masses EXTREMITIES: No edema. No calf tenderness. NEUROLOGIC: Reflexes are normal. No focal deficits. SKIN: Warm. Assessment and Plan Assessment and Plan IMPRESSION: 1. Extensive right lung pneumonia with hypoxemia. 2. Chronic kidney disease with acute renal failure. 3. COPD with emphysema and chronic bronchitis. 4. History of coronary artery bypass grafting. Plan : 1. Chest tube to wall 20 CM suction 2. O2 2 L. N/C 3. Nebs qid , duoneb 4. IS at bedside qid. 5. CBC,BMP 6. Morphine 3 mg IV q3h 7. Prednisone 20 mg BID Alison Wilson MD Jan 06, 2017 18:44
[2017-01-06] MEDS: predniSONE 20 MG TAB PO SCH (20:01)
[2017-01-06] MEDS: PANTOPRAZOLE SOD 40 MG DELAYED RELEASE TAB PO SCH (20:01)
[2017-01-06] MEDS: ACETAMINOPHEN/HYDROcodone 325 MG/5 MG TAB PO PRN (20:01)
[2017-01-07] VITALS (23 sets, daily range): BP systolic 97–145; BP diastolic 70–93; PULSE 76–124; RESP 18–28; TEMP 97.7–98.4; O2SAT 92–98
[2017-01-07] MEDS: ACETAMINOPHEN/HYDROcodone 325 MG/5 MG TAB PO PRN ×2 (03:51→08:34)
[2017-01-07] MEDS: SEVELAMER CARBONATE 800 MG TAB PO SCH ×3 (08:00→17:00)
[2017-01-07] MEDS: RESP: BUDESONIDE 0.5 MG/2 ML NEB NEB SCH ×2 (08:46→21:18)
[2017-01-07] MEDS: DOCUSATE SODIUM 100 MG CAP PO SCH ×2 (09:00→21:31)
[2017-01-07] MEDS: predniSONE 20 MG TAB PO SCH ×2 (09:00→21:00)
[2017-01-07] MEDS: POLYETHYLENE GLYCOL 17 GM PKG PO SCH (09:00)
[2017-01-07] MEDS: ENOXAPARIN SODIUM 30 MG/0.3 ML SYRINGE SQ SCH (09:00)
[2017-01-07] MEDS: LACTOBACILLUS ACIDOPHILUS TAB PO SCH ×2 (09:00→21:31)
[2017-01-07] MEDS: SODIUM CHLORIDE 0.9% FLUSH 5 ML FLUSH IV FLUSH SCH ×2 (09:00→21:00)
[2017-01-07] MEDS: HYDROCORTISONE ACETATE 25 MG SUPP RECTAL SCH ×4 (09:00→21:32)
[2017-01-07] MEDS: CHOLECALCIFEROL (VIT D3) 1000 UNIT TAB PO SCH (09:00)
--- NOTE | 2017-01-07 09:52 | HHI.NPPN ---
Subjective General Problems: Anemia Renal Failure: Acute Interval History Seen in dialysis. His COOK SHORT ORDER was stopped. Breathing comfortably. (Milla Pack) Review of Systems General Constitutional: Fatigue (Milla Pack) Respiratory Lungs: Cough, Sputum Respiratory Remarks slightly hemoptysis (Milla Pack) Musculoskeletal MS: Pain/Stiffness (Milla Pack) Objective Data Data Vital Signs Date Time Temp Pulse Resp B/P (MAP) Pulse Ox O2 Delivery O2 Flow Rate FiO2 01/07/17 09:00 84 01/07/17 08:46 93 Nasal Cannula 3.00 01/07/17 08:00 76 01/07/17 07:00 96 Nasal Cannula 3.00 01/07/17 07:00 98.0 82 18 145/84 (104) 96 01/07/17 07:00 82 01/07/17 06:00 96 01/07/17 05:00 79 01/07/17 04:00 86 01/07/17 03:15 96 Nasal Cannula 3.00 01/07/17 03:15 97.7 95 18 137/93 (108) 96 01/07/17 03:00 87 01/07/17 02:00 90 01/07/17 01:00 90 01/07/17 00:03 101 01/06/17 23:36 97.6 87 20 158/87 (110) 96 01/06/17 23:36 96 Nasal Cannula 3.00 01/06/17 23:00 82 01/06/17 22:00 82 01/06/17 21:07 96 Nasal Cannula 5.00 01/06/17 21:00 88 01/06/17 20:33 97.6 84 18 141/83 (102) 96 01/06/17 20:33 96 Nasal Cannula 5.00 01/06/17 20:00 95 01/06/17 19:00 104 01/06/17 18:00 86 01/06/17 17:00 94 01/06/17 16:00 90 01/06/17 15:00 88 01/06/17 15:00 95 Nasal Cannula 5.00 01/06/17 15:00 97.3 88 16 128/72 (90) 95 01/06/17 14:00 93 01/06/17 13:00 89 01/06/17 12:00 94 01/06/17 11:00 95 Nasal Cannula 5.00 01/06/17 11:00 96 01/06/17 11:00 98.1 96 16 104/67 (79) 95 01/06/17 10:00 89 (Milla Pack) -: 01/04/17 0406 01/04/17 0406 Imaging Last Impressions Chest X-Ray 01/06/17 0600 Signed Impressions: Service Date/Time: Friday, January 06, 2017 04:48 - CONCLUSION: Decreased right base pneumothorax, now very small. Right chest tube remains in place. Chronic consolidation with volume loss on the right again noted. Caio Wray MD Lung Biopsy CT 12/23/16 0000 Signed Impressions: Service Date/Time: Friday, December 23, 2016 09:37 - CONCLUSION: Uncomplicated CT guided biopsy/aspiration. Broderick Ndiaye MD Chest CT 12/17/16 1715 Signed Impressions: Service Date/Time: Saturday, December 17, 2016 17:51 - CONCLUSION: 1. Dense consolidation persists in the right upper lobe with air bronchograms and air filled cystic spaces. Debris versus possible fungus ball in one of the cystic spaces at the apex which is new. Multi-organism pneumonia suspected. 2. Non-consolidative patchy infiltrate of the right middle and lower lobes not significantly changed. 3. Decreased pleural effusion on the right, now trace. Completely resolved pleural effusion on the left. 4. Previous median sternotomy. Caio Wray MD Upper Extremity Ultrasound 12/04/16 0000 Signed Impressions: Service Date/Time: November 18:26 - CONCLUSION: Venous mapping as delineated above. The cephalic veins are abnormal bilaterally. Caio Villalpando MD Renal Biopsy CT 12/02/16 1350 Signed Impressions: Service Date/Time: Friday, December 02, 2016 08:33 - CONCLUSION: Uncomplicated CT guided biopsy of the right kidney for function. Mustapha Vela Jr., MD Catheter Placement X-Ray 11/28/16 0000 Signed Impressions: Service Date/Time: Monday, November 28, 2016 15:57 - CONCLUSION: Uncomplicated PermaCath placement as above. Mustapha Vela Jr., MD Renal Ultrasound 11/22/16 0000 Signed Impressions: Service Date/Time: Tuesday, November 22, 2016 17:14 - CONCLUSION: Mild pelvocaliectasis right kidney not present previously. Obdulia Garcia MD Tubes & Lines: Perma-Cath Tubes & Lines Comment chest tube right. (Milla Pack B. CHARGE LPN) Physical Exam General Appearance: No Acute Distress, Comfortable, Pale, Malnourished (Milla Pack B. CHARGE LPN) Eyes Eye Exam: Pupils Equal, Pupils Reactive (Philip Packon B. CHARGE LPN) Throat Throat Exam: Oral Mucosa [place] & Moist (Milla Pack B. CHARGE LPN) Neck Neck Exam: Neck Supple (Milla Pack B. CHARGE LPN) Pulmonary Resp Exam: No Distress, Crackles, Rhonchi, Decreased Bases Resp Remarks course right side lung sounds; chest tube right subcutaneous air right arm, right lower abdomen, upper chest wall (Philip Packon B. CHARGE LPN) Cardiology CV Exam: Regular, Normal Sinus Rhythm, Good Perfusion (Milla Pack B. CHARGE LPN) Gastrointestinal/Abdomen GI Exam: Soft, Non-Tender, Bowel Sounds Present, Positive Bowel Movement (Milla Pack B. CHARGE LPN) Musculoskeletal MS Exam: Joints Intact, Normal Gait, Normal Tone, Atrophy (Milla Pack B. CHARGE LPN) Integumentary Skin Exam: Clear, Warm, Dry, Intact (Milla Pack B. CHARGE LPN) Extremeties Extremities Exam: No Edema, Pedal Pulses Palpable (Milla Pack B. CHARGE LPN) Neurologic Neuro Exam: Alert, Awake, Oriented, Speech Clear, Moving All Extremities (Milla Pack B. CHARGE LPN) Psychiatric Psych Exam: Appropriate Responses (Milla Pack BCee CHARGE LPN) Assessment/Plan Discussed Condition With: Patient Assessment Summary: SEJAL/Acute Renal Failure, Anemia of CKD Electrolyte Assessment: Metabolic Acidosis Problem List: (1) Chronic kidney disease, stage 5 ICD Codes: N18.5 - Chronic kidney disease, stage 5 Status: Chronic Plan: Patient likely has reached ESRD. s/p renal biopsy this admission. H does make quite a bit of urine. Continue dialysis support MWF. Seen during dialysis today on a 3K, 350 BFR, goal 1L UF Continue nutritional support with meals; on high protein diet Follow up with Dr. Pyle for AV access - will have him evaluate next week. The plan is for him to enter transitional HD program at [facility]. When he is approved he can be discharged, may take several weeks. Will keep in touch with case management regarding insurance; now he is being applied for medicare. (2) Pneumonia ICD Codes: J18.9 - Pneumonia, unspecified organism Status: Acute Plan: Pulmonary and CTS surgery are following, s/p bronchoscopy and thoracotomy with decortication Biopsy negative for pulmonary aspergillus fungal ball in right lung s/p right thoracotomy 12/30 with chest tube placement; had air leak that CTS is managing with pulmonary Continue supportive care (3) Hypokalemia ICD Codes: E87.6 - Hypokalemia Status: Resolved Plan: corrected; thought to have a proximal tubule disorder Follow labs, he is off daily replacement 24 hour urine for potassium shows he has renal wasting (4) Hypocalcemia ICD Codes: E83.51 - Hypocalcemia Plan: Continue to treat hyperphosphatemia, on Sevelamer with meals. (5) Anemia ICD Codes: D64.9 - Anemia Status: Chronic Plan: Transfuse as needed, Most recent 12/30 Continue high dose of Epogen with dialysis. Check CBC today (6) Acidosis ICD Codes: E87.2 - Acidosis Status: Acute Plan: corrected with dialysis , monitor (7) GI bleed ICD Codes: K92.2 - Gastrointestinal hemorrhage, unspecified Status: Acute Plan: GI has signed off; s/p EGD/colonoscopy may need capsule endoscopy outpatient (Milla Pack) Plan patient was seen and examined. Agree with above assessment and plan. Notes were reviewed. (Jim Zuluaga MD) Problem Qualifiers (1) Pneumonia: Qualified Codes: J18.1 - Lobar pneumonia, unspecified organism (2) Anemia: Qualified Codes: N18.5 - Chronic kidney disease, stage 5; D63.1 - Anemia in chronic kidney disease (3) GI bleed: Milla Pack Jan 07, 2017 09:52 Jim Zuluaga MD Jan 08, 2017 07:55
[2017-01-07] MEDS: EPOETIN ALFA 10,000 UNITS/ML VIAL IV PRN (10:55)
[2017-01-07] MEDS: EPOETIN ALFA 4,000 UNITS/ML VIAL IV PRN (10:56)
[2017-01-07] MEDS: HEPARIN SODIUM - IV 10,000 UNITS/10 ML VIAL PRN (10:58)
[2017-01-07] MEDS: GENTAMICIN SULFATE (DIALYSIS USE ONLY) 20 MG/2 ML VIAL IV PRN (10:58)
[2017-01-07 11:11] LABS: AUTOMATED NEUTROPHIL # 12.7 TH/MM3 (1.8-7.7); BASOPHIL % 0.2 % (0.0-2.0); EOSINOPHIL % 0.2 % (0.0-4.0); HEMATOCRIT 24.7 % (39.0-51.0); HEMO FLAGS DIFF FINAL; LYMPH % 8.9 % (9.0-44.0); LYMPHOCYTE # 1.3 TH/MM3 (1.0-4.8); MEAN CELL VOLUME 92.8 FL (80.0-100.0); MEAN CORPUSCULAR HEMOGLOBIN 30.1 PG (27.0-34.0); MEAN CORPUSCULAR HGB CONC 32.5 % (32.0-36.0); MONO % 4.7 % (0.0-8.0); PLATELET COUNT 253 TH/MM3 (150-450); RED BLOOD COUNT 2.66 MIL/MM3 (4.50-5.90); RED CELL DISTRIBUTION WIDTH 16.4 % (11.6-17.2); WHITE BLOOD COUNT 14.8 TH/MM3 (4.0-11.0)
--- NOTE | 2017-01-07 11:45 | PD.CAR.PN ---
CVT Progress Note Subjective/Hospital Course: ct guided lung bx / no fungal elements Dr Claire Lott requesting re-eval for possible thoractomy discussed with pt right thoracotomy for pulmonary resection Dr Roth will discuss further with pt on Thursday tentatively scheduled for case 12/29 Dr Roth discussed surgery / risks / procedure with pt / he ia agreeable to proceed for surgery in am 12/30 Right thoracotomy with VATS assist, lysis of adhesions, decortication, pleural biopsies and cultures, right upper lobe biopsies and cultures Right upper lobe resection was considered, but not technically feasible due to the dense consolidation, inflammation, and frozen hilum associated. 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, [employer] dosing increase with breakthrough fentanly IV will need PT/ OOB ambulate pulm toileting path cultures pending 12/31 path and cultures pending 01/01 path pending no growth in cultures to date pain control improved, has ONQ pump and morphine [employer] on GI motility meds ambulate/ OOB + 1 air leak in chest tube 01/02 now with +4 air leak + subq emphysema to right chest ONQ pump dc dressing removed / right chest tube site eval, no air air out of skin, reinforced with vaseline gauze no change in air leak remains on 01/03/17 Continues with impressive air leak and SQ emphysema. Denies dyspnea and comfortable 01/04/17 Persistent large air leak. No complaints otherwise 01/05/17 c/o pain related to chest tube site and pleuritic irritation. air leak a little better this morning. PATH still pending from biopsies submitted at the time of surgery last week. 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 EYES: No scleral icterus. No injection or drainage. NECK: Supple, trachea midline. No JVD or lymphadenopathy. CARDIOVASCULAR: Regular rate and rhythm without murmurs, gallops, or rubs. RESPIRATORY: Breath sounds equal bilaterally. No accessory muscle use. diminished on right / chest tube now to 10cm suction + air leak GASTROINTESTINAL: Abdomen soft, non-tender, nondistended. MUSCULOSKELETAL: No cyanosis, or edema. BACK: Nontender without obvious deformity. No CVA tenderness. Vital Signs Date Time Temp Pulse Resp B/P (MAP) Pulse Ox O2 Delivery O2 Flow Rate FiO2 01/07/17 09:00 84 01/07/17 08:46 93 Nasal Cannula 3.00 01/07/17 08:00 76 01/07/17 07:00 96 Nasal Cannula 3.00 01/07/17 07:00 98.0 82 18 145/84 (104) 96 01/07/17 07:00 82 01/07/17 06:00 96 01/07/17 05:00 79 01/07/17 04:00 86 01/07/17 03:15 96 Nasal Cannula 3.00 01/07/17 03:15 97.7 95 18 137/93 (108) 96 01/07/17 03:00 87 01/07/17 02:00 90 01/07/17 01:00 90 01/07/17 00:03 101 01/06/17 23:36 97.6 87 20 158/87 (110) 96 01/06/17 23:36 96 Nasal Cannula 3.00 01/06/17 23:00 82 01/06/17 22:00 82 01/06/17 21:07 96 Nasal Cannula 5.00 01/06/17 21:00 88 01/06/17 20:33 97.6 84 18 141/83 (102) 96 01/06/17 20:33 96 Nasal Cannula 5.00 01/06/17 20:00 95 01/06/17 19:00 104 01/06/17 18:00 86 01/06/17 17:00 94 01/06/17 16:00 90 01/06/17 15:00 88 01/06/17 15:00 95 Nasal Cannula 5.00 01/06/17 15:00 97.3 88 16 128/72 (90) 95 01/06/17 14:00 93 01/06/17 13:00 89 01/06/17 12:00 94 Labs: Laboratory Tests Test 01/07/17 10:25 White Blood Count 14.8 TH/MM3 (4.0-11.0) Red Blood Count 2.66 MIL/MM3 (4.50-5.90) Hemoglobin 8.0 GM/DL (13.0-17.0) Hematocrit 24.7 % (39.0-51.0) Mean Corpuscular Volume 92.8 FL (80.0-100.0) Mean Corpuscular Hemoglobin 30.1 PG (27.0-34.0) Mean Corpuscular Hemoglobin Concent 32.5 % (32.0-36.0) Red Cell Distribution Width 16.4 % (11.6-17.2) Platelet Count 253 TH/MM3 (150-450) Mean Platelet Volume 8.3 FL (7.0-11.0) Neutrophils (%) (Auto) 86.0 % (16.0-70.0) Lymphocytes (%) (Auto) 8.9 % (9.0-44.0) Monocytes (%) (Auto) 4.7 % (0.0-8.0) Eosinophils (%) (Auto) 0.2 % (0.0-4.0) Basophils (%) (Auto) 0.2 % (0.0-2.0) Neutrophils # (Auto) 12.7 TH/MM3 (1.8-7.7) Lymphocytes # (Auto) 1.3 TH/MM3 (1.0-4.8) Monocytes # (Auto) 0.7 TH/MM3 (0-0.9) Eosinophils # (Auto) 0.0 TH/MM3 (0-0.4) Basophils # (Auto) 0.0 TH/MM3 (0-0.2) CBC Comment DIFF FINAL Differential Comment Result Diagram: 01/07/17 1025 01/04/17 0406 (1) Pulmonary infiltrate in right lung on chest x-ray Plan: pulm toileting nebs, ezpap OOB ambulate consult PT pain control / DC [employer]/po norco prn cultures neg to date path pending keep chest tube to wall suction ( 10cm) (2) Pneumonia Plan: post ABX/ ID signed off Problem Qualifiers (1) Pneumonia: Qualified Codes: J18.1 - Lobar pneumonia, unspecified organism Marly Heart Jan 07, 2017 11:45
[2017-01-07] MEDS: FERROUS SULFATE 325 MG (65 MG ELEMENTAL IRON) TAB PO SCH ×2 (12:00→17:55)
[2017-01-07] MEDS: ASCORBIC ACID 500 MG TAB PO SCH ×2 (12:00→17:00)
[2017-01-07] MEDS ORDERED: MORPHINE SULFATE 8 MG/ML INJ ONE (13:02)
[2017-01-07 13:08] LABS: BLOOD GAS CARBOXYHEMOGLOBIN 1.8 % (0-4); BLOOD GAS HCO3 26 mmol/L (22-26); BLOOD GAS O2 HGB SATURATION 97 % (90-100); BLOOD GAS OXYGEN CONTENT 12.8 Vol % (12.0-20.0); BLOOD GAS PCO2 49 mmHg (38-42); BLOOD GAS PO2 204 mmHg (61-120); BLOOD GAS TOTAL HGB 9.1 G/DL (12.0-16.0); CRITICAL VALUE NO; DRAW SITE LT RADIAL; FIO2 100 %; LITER FLOW 15 L/M; NUMBER OF ARTERIAL PUNCTURES 1; STAT YES; TEMP CORR TO 98.6; ULNAR PULSE PRESENT
[2017-01-07 13:36] LABS: ALKALINE PHOSPHATASE 76 U/L (45-117); ALT (GPT) 8 U/L (12-78); ANION GAP 9 MEQ/L (5-15); AST (GOT) 9 U/L (15-37); BICARBONATE 28.7 MEQ/L (21.0-32.0); BLOOD UREA NITROGEN 19 MG/DL (7-18); CHLORIDE 98 MEQ/L (98-107); GLOMERULAR FILTRATION RATE 37 ML/MIN (>89); MAGNESIUM 1.9 MG/DL (1.5-2.5); SODIUM (NA) 136 MEQ/L (136-145); TOTAL BILIRUBIN ADULT 0.4 MG/DL (0.2-1.0)
--- NOTE | 2017-01-07 13:37 | RADRPT ---
EXAM DATE/TIME: 01/07/2017 12:59 [facility] COMPARISON: CT NEEDLE BIOPSY LUNG, RIGHT, December 23, 2016, 9:37. CT THORAX W/O CONTRAST, December 17, 2016, 17:51. CHEST SINGLE AP, January 04, 2017, 5:16. CHEST SINGLE AP, January 06, 2017, 4:48. INDICATIONS : Short of breath. MEDICAL HISTORY : Chronic obstructive pulmonary disease. Cardiovascular disease. Hypertension. SURGICAL HISTORY : CABG. ENCOUNTER: Initial ACUITY: 1 day PAIN SCORE: 10/10 LOCATION: Right chest FINDINGS: There is a stable right IJ dialysis catheter in place. There is a stable large bore right-sided chest tube in place. Interval mild enlargement of the right basilar pneumothorax in comparison to 01/06 exa m but improved in comparison to 01/04 exam. Continued extensive cavitary airspace consolidation in the right upper and mid lung zones. Stable extensive soft tissue emphysema. Left lung is clear in its vi sualized portions. Cardiomediastinal contours are stable. CONCLUSION: 1. Stable large bore right-sided chest tube with mild interval enlargement of right basilar pneumotho rax in comparison to 01/06 exam but improved in comparison to 01/04 exam. 2. Stable extensive subcutaneous emphysema. 3. Stable extensive cavitary airspace consolidation throughout the right upper and midlung zones. 1. Edenilson Villarreal MD on January 07, 2017 at 13:29 Board Certified Radiologist. This report was verified electronically.
[2017-01-07 13:40] LABS: POTASSIUM 2.9 MEQ/L (3.5-5.1)
[2017-01-07] MEDS ORDERED: MORPHINE SULFATE 8 MG/ML INJ IV PUSH ONE (13:45)
--- NOTE | 2017-01-07 17:21 | HHI.PR ---
Subjective Remarks Patient apparently had a deterioration today, alert was called sometime after the patient had his suction reduced from 30-10, had desaturations into the 80s. His suction was increased back up to 30 and is now saturating okay. Patient seems to be more short of breath today Objective Vital Signs Date Time Temp Pulse Resp B/P (MAP) Pulse Ox O2 Delivery O2 Flow Rate FiO2 01/07/17 16:41 108 01/07/17 15:45 119 01/07/17 15:31 94 Nasal Cannula 20.00 50 01/07/17 15:31 115 01/07/17 15:30 98.2 119 24 116/70 (85) 94 01/07/17 14:13 93 Nasal Cannula 20.00 50 01/07/17 14:12 124 01/07/17 14:10 98.0 124 28 102/75 (84) 92 01/07/17 14:05 98 High Flow Nasal Cannula 20.00 50 01/07/17 13:52 18 01/07/17 13:52 18 01/07/17 12:45 98 15.00 01/07/17 09:00 84 01/07/17 08:46 93 Nasal Cannula 3.00 01/07/17 08:00 76 01/07/17 07:00 96 Nasal Cannula 3.00 01/07/17 07:00 98.0 82 18 145/84 (104) 96 01/07/17 07:00 82 01/07/17 06:00 96 01/07/17 05:00 79 01/07/17 04:00 86 01/07/17 03:15 96 Nasal Cannula 3.00 01/07/17 03:15 97.7 95 18 137/93 (108) 96 01/07/17 03:00 87 01/07/17 02:00 90 01/07/17 01:00 90 01/07/17 00:03 101 01/06/17 23:36 97.6 87 20 158/87 (110) 96 01/06/17 23:36 96 Nasal Cannula 3.00 01/06/17 23:00 82 01/06/17 22:00 82 01/06/17 21:07 96 Nasal Cannula 5.00 01/06/17 21:00 88 01/06/17 20:33 97.6 84 18 141/83 (102) 96 01/06/17 20:33 96 Nasal Cannula 5.00 01/06/17 20:00 95 01/06/17 19:00 104 01/06/17 18:00 86 I/O 01/06/17 01/06/17 01/06/17 01/07/17 01/07/17 01/07/17 07:00 15:00 23:00 07:00 15:00 23:00 Intake Total 702 ml 946 ml 480 ml Output Total 515 ml 940 ml 650 ml Balance 187 ml 6 ml -170 ml Intake Oral 480 ml 400 ml 480 ml IV Total 222 ml 546 ml Output Urine Total 275 ml 750 ml 650 ml Stool Total 0 ml Chest Tube Drainage Total 240 ml 190 ml # Bowel Movements 1 Result Diagram: 01/07/17 1025 01/07/17 1300 Objective Remarks Chest tube in place over right chest wall, draining well mildly labored breathing today, no wheezing, unchanged crackles auscultated over bilateral lung june with right greater than left, palpable crepitus over bilateral shoulders and arms with right greater than left ; significant conversive dyspnea On nasal cannula, no cyanosis no clubbing A/P Assessment and Plan Mr. Fonseca is a 55-year-old male patient with a known medical history of CAD s/ p CABG and CKD who presented to the ED with complaints of increasing dyspnea, generalized weakness, fevers and frequent diaphoresis x 2 weeks. Hypoxia - worsening today likely 2/2 decreased suction pressure, worsened PTX since yesterday per CXR, improved sats with increased suction Extensive right lung pneumonia with cavitation - CT chest 11/26 dense consolidative right upper lobe pneumonia with severe emphysema with cavitary foci within the consolidated areas, patchy right middle and lower lobe pneumonia - Pulmonary following, completed cefepime regimen. - RUL BAL 12/05 negative for malignant cells - CT guided bx 12/23 negative for fungus, AFB or malignancy. Substantial fibrosis noted. - Sputum culture negative. Bronchial cultures negative. Negative Aspergillus titers. - 12/31 Patient sp right thoracotomy, lysis of adhesions, decortication, pleural biopsy on 12/30. Patient with uncontrolled pain. 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 12/31 pleural and lung bx results pending. COPD - transitioning to oral steroids, wean accordingly ESRD - Per nephrology will need intermediate project manager dialysis (MWF). - Patient underwent AV fistula surgery on 12/10/2016. However, patient may need AV graft. - US kidney/renal/bladder ordered and reviewed showing mild pelvocaliectasis right kidney. - per path, membranoproliferative glomerulonephritis - CM and nephrology are working together to arrange outpatient dialysis - plan is for him to enter transitional HD program at [facility] Normochromic, normocytic anemia suspect secondary to acute blood loss/ hematochezia - Transfused total of 6 PRBCs since admission, and transfuse for HgB<7.0 - Continue Protonix 40 mg twice a day - EGD/Colonoscopy on 12/18/2016 - neg. - Epogen per Nephrology - monitor hb. Full code, lovenox.. Joselito Nava MD Jan 07, 2017 17:21
--- NOTE | 2017-01-07 17:42 | PD.CONS ---
[facility] Service Critical Care Medicine Consult Requested By Dr. Roth Reason for Consult Worsening respiratory failure/respiratory distress Primary Care Physician No Primary Care Physician History of Present Illness 55 yo male with 6 weeks of fever, SOB, worsening cough On presentation in late November pt was found to have ARF on CKD His renal biopsy revealed severe interstitial fibrosis, tubular atrophy and findings suggestive MPGN, with significant global glomerular sclerosis. He was start on dialysis support MWF. AVF attempted, but failed, he has Permacath On presentation he was found tro have dense RUL PNA on CT His expectoration sputum and BAL were unrevealing His repeat CT showed again dense consolidation persists in the right upper lobe with air bronchograms and air filled cystic spaces. Debris versus possible fungus ball in one of the cystic spaces at the apex which is new. Multi-organism pneumonia suspected. Patient was evaluated by ID and CT surgery consulted for bx. On 12/30 patient underwent right thoracotomy with VATS, lysis of adhesions, decortication, pleural biopsy with cultures and right upper lobe biopsy with cultures under general anesthesia. He did have a chest tube placed during that procedure. He was noted to have a 1+ air leak on 01/01. Over the course of next few days his air leak has worsened. Patient was placed on -10 cm of water pressure today and subsequently underwent hemodialysis. Towards the end of hemodialysis patient developed worsening shortness of breath with O2 sats dropping to the 80s. Patient was placed on 100% nonrebreather facemask and stat chest x-ray revealed small basilar right pneumothorax with chest tube in place and chronic right sided infiltrates with loss of lung volume. Chest tube was placed to -30 cm water pressure with underwater seal and patient was subsequently rapid responded and transferred to CV ICU. Critical care consult was requested by Dr. Walton. I evaluated the patient immediately on his arrival to the ICU at that time he was on 100% nonrebreather facemask with O2 sats in the mid 90s. He appeared to have improved since increasing negative pressure on chest tube. I discussed the case with Dr. Roth at bedside. 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 He was maintaining his blood pressure and oxygen saturation at this time. He has been evaluated by pulmonary medicine and ID during this hospitalization as well. Past Family Social History Allergies: Coded Allergies: No Known Allergies (Unverified , 09/26/13) Past Medical History Anxiety CAD with CABG 2013 COPD Tobacco history Past Surgical History CABG 2013 Reported Medications Active Reported B Complex (B-Complex Vitamins) 1 Cap 1 Cap PO DAILY Folic Acid 400 Mcg Tab 400 Mcg PO DAILY Active Ordered Medications Administered Medications Medications (Trade) Dose Ordered Sig/Edwin Route PRN Reason Start Time Stop Time Status Last Admin Dose Admin Temazepam (Restoril) 15 mg HS PRN PO INSOMNIA 11/24/16 13:15 12/31/16 23:22 Cholecalciferol (Vitamin D3) 2,000 units DAILY PO 11/25/16 09:15 01/06/17 09:27 Lactobacillus Acidophilus (Lactinex) 1 tab Q12HR PO 11/26/16 21:00 01/06/17 20:01 Sodium Chloride 1,000 ml @ 0 mls/hr Q0M PRN OTHER For Prime & Rinse Back 11/28/16 15:28 12/29/16 16:10 Sodium Chloride 1,000 ml @ 0 mls/hr Q0M PRN OTHER WITH DIALYSIS 11/28/16 15:28 11/30/16 12:02 Albumin Human (Albumin 25% Inj) 25 gm UNSCH PRN IV WITH DIALYSIS 11/28/16 15:30 12/24/16 08:52 Sodium Chloride (NS Flush) 5 ml UNSCH PRN IV FLUSH WITH DIALYSIS 11/28/16 15:30 01/03/17 21:41 Heparin Sodium (Porcine) (Heparin Inj) UNSCH PRN .XX WITH DIALYSIS 11/28/16 15:30 01/07/17 10:58 Gentamicin Sulfate (Gentamicin (Dialysis) Inj) 20 mg UNSCH PRN IV WITH DIALYSIS 11/28/16 15:30 01/07/17 10:58 Acetaminophen (Tylenol) 650 mg UNSCH PRN PO for headach,temp > 101F 11/28/16 15:30 12/19/16 13:06 Diphenhydramine HCl (Benadryl) 25 mg UNSCH PRN PO for hives/itching/anaphylaxis 11/28/16 15:30 12/19/16 13:06 Albuterol/ Ipratropium (Duoneb Neb) 1 ampule Q4HR NEB PRN NEB SHORTNESS OF BREATH 11/29/16 12:30 12/31/16 15:54 Diphenhydramine HCl (Benadryl) 25 mg Q8H PRN PO itching 11/30/16 10:00 12/31/16 23:23 Sevelamer Carbonate (Renvela) 1,600 mg TIDAC PO 12/03/16 17:00 01/06/17 17:17 Guaifenesin/ Codeine Phosphate (Robitussin Ac 200-20 Mg/10 ml Liq) 10 ml Q6H PRN PO cough 12/15/16 14:00 01/05/17 02:24 Epoetin Joe (Epogen Inj) 10,000 units UNSCH PRN IV WITH DIALYSIS 12/17/16 09:30 01/07/17 10:55 Epoetin Joe (Epogen Inj) 4,000 units UNSCH PRN IV WITH DIALYSIS 12/17/16 09:45 01/07/17 10:56 Acetaminophen/ Hydrocodone Bitart ([place] 5-325 Mg) 1 tab Q4H PRN PO PAIN SCALE 1 TO 5 12/25/16 09:15 01/07/17 08:34 Ferrous Sulfate (Ferrous Sulfate) 325 mg BID@12,17 PO 12/29/16 12:00 01/06/17 17:17 Ascorbic Acid (Vitamin C) 500 mg BID@1200,1700 PO 12/29/16 12:00 01/06/17 17:19 Albuterol Sulfate (Albuterol Neb) 2.5 mg Q2HR NEB PRN NEB WHEEZING 12/30/16 16:45 01/04/17 20:46 Budesonide (Pulmicort Respule Neb) 0.5 mg BID NEB NEB 12/30/16 20:00 01/07/17 08:46 IV Flush (NS Flush) 2 ml BID IV FLUSH 12/30/16 21:00 01/07/17 09:00 Pantoprazole Sodium (Protonix) 40 mg HS PO 12/30/16 21:00 01/06/17 20:01 Docusate Sodium (Colace) 100 mg BID PO 12/31/16 10:00 01/06/17 09:24 Polyethylene Glycol (Miralax) 17 gm DAILY PO 12/31/16 10:00 01/05/17 10:16 Enoxaparin Sodium (Lovenox Inj) 30 mg EVERY OTHER DAY SQ 01/05/17 15:00 01/05/17 20:55 Fentanyl Citrate (fentaNYL INJ) 25 mcg Q4H PRN IV PUSH BREAKTHROUGH PAIN 01/06/17 14:45 01/07/17 13:00 Acetaminophen/ Hydrocodone Bitart ([place] 5-325 Mg) 2 tab Q4H PRN PO PAIN SCALE 6 TO 10 01/06/17 14:45 01/06/17 20:01 Prednisone (Deltasone) 20 mg BID PO 01/06/17 21:00 01/06/17 20:01 Family History h/o CAD/cardiac disease in family Social History Tobacco abuse Denies ETOH/drug use Review of Systems ROS Limitations: Clinical Condition Physical Exam Vital Signs Vital Signs Date Time Temp Pulse Resp B/P (MAP) Pulse Ox O2 Delivery O2 Flow Rate FiO2 01/07/17 16:41 108 01/07/17 15:45 119 01/07/17 15:31 94 Nasal Cannula 20.00 50 01/07/17 15:31 115 01/07/17 15:30 98.2 119 24 116/70 (85) 94 01/07/17 14:13 93 Nasal Cannula 20.00 50 01/07/17 14:12 124 01/07/17 14:10 98.0 124 28 102/75 (84) 92 01/07/17 14:05 98 High Flow Nasal Cannula 20.00 50 01/07/17 13:52 18 01/07/17 13:52 18 01/07/17 12:45 98 15.00 01/07/17 09:00 84 01/07/17 08:46 93 Nasal Cannula 3.00 01/07/17 08:00 76 01/07/17 07:00 96 Nasal Cannula 3.00 01/07/17 07:00 98.0 82 18 145/84 (104) 96 01/07/17 07:00 82 01/07/17 06:00 96 01/07/17 05:00 79 01/07/17 04:00 86 01/07/17 03:15 96 Nasal Cannula 3.00 01/07/17 03:15 97.7 95 18 137/93 (108) 96 01/07/17 03:00 87 01/07/17 02:00 90 01/07/17 01:00 90 01/07/17 00:03 101 01/06/17 23:36 97.6 87 20 158/87 (110) 96 01/06/17 23:36 96 Nasal Cannula 3.00 01/06/17 23:00 82 01/06/17 22:00 82 01/06/17 21:07 96 Nasal Cannula 5.00 01/06/17 21:00 88 01/06/17 20:33 97.6 84 18 141/83 (102) 96 01/06/17 20:33 96 Nasal Cannula 5.00 01/06/17 20:00 95 01/06/17 19:00 104 01/06/17 18:00 86 01/06/17 17:00 94 Physical Exam Physical Exam GENERAL: This is a well-nourished, well-developed patient laying in bed, in significant respiratory distress using accessory muscles of respiration and tachypneic. On 100% nonrebreather facemask. SKIN: No rashes, ecchymoses or lesions. Cool and dry. HEAD: Atraumatic. Normocephalic. No temporal or scalp tenderness. EYES: Pupils equal round and reactive. Pallor present Extraocular motions intact. No scleral icterus. No injection or drainage. ENT: Nose without bleeding, purulent drainage or septal hematoma. Throat without erythema, tonsillar hypertrophy or exudate. Uvula midline. Airway patent. NECK: Trachea midline. No JVD or lymphadenopathy. CARDIOVASCULAR: Regular rate and rhythm without murmurs, gallops, or rubs. Well- healed sternotomy incision. Dressing over right thoracotomy site, chest tube in place with 6+ air leak noted RESPIRATORY: Decreased BS on right. Subcutaneous emphysema over chest wall near chest tube insertion site. Rhonchi over right lung field, left lung field appears clear with no wheezing or crackles. GASTROINTESTINAL: Abdomen soft, non-tender, nondistended. No hepato-splenomegaly , or palpable masses. No guarding. MUSCULOSKELETAL: Extremities without clubbing, cyanosis, or edema. No joint tenderness, effusion, or edema noted. No calf tenderness. NEUROLOGICAL: Awake alert oriented 3, moves all 4 extremities, grossly nonfocal Laboratory Laboratory Tests Test 01/07/17 10:25 01/07/17 12:55 01/07/17 13:00 White Blood Count 14.8 TH/MM3 Red Blood Count 2.66 MIL/MM3 Hemoglobin 8.0 GM/DL Hematocrit 24.7 % Mean Corpuscular Volume 92.8 FL Mean Corpuscular Hemoglobin 30.1 PG Mean Corpuscular Hemoglobin Concent 32.5 % Red Cell Distribution Width 16.4 % Platelet Count 253 TH/MM3 Mean Platelet Volume 8.3 FL Neutrophils (%) (Auto) 86.0 % Lymphocytes (%) (Auto) 8.9 % Monocytes (%) (Auto) 4.7 % Eosinophils (%) (Auto) 0.2 % Basophils (%) (Auto) 0.2 % Neutrophils # (Auto) 12.7 TH/MM3 Lymphocytes # (Auto) 1.3 TH/MM3 Monocytes # (Auto) 0.7 TH/MM3 Eosinophils # (Auto) 0.0 TH/MM3 Basophils # (Auto) 0.0 TH/MM3 CBC Comment DIFF FINAL Differential Comment Blood Gas Puncture Site LT RADIAL Blood Gas Patient Temperature 98.6 Blood Gas HCO3 26 mmol/L Blood Gas Base Excess 1.0 mmol/L Blood Gas Oxygen Saturation 97 % Arterial Blood pH 7.35 Arterial Blood Partial Pressure CO2 49 mmHg Arterial Blood Partial Pressure O2 204 mmHg Arterial Blood Oxygen Content 12.8 Vol % Arterial Blood Carboxyhemoglobin 1.8 % Arterial Blood Methemoglobin 1.0 % Blood Gas Hemoglobin 9.1 G/DL Oxygen Delivery Device Non-Rebreathing Mask Blood Gas Liter Flow 15 L/M Blood Gas Inspired Oxygen 100 % Blood Urea Nitrogen 19 MG/DL Creatinine 1.91 MG/DL Random Glucose 155 MG/DL Total Protein 6.6 GM/DL Albumin 2.2 GM/DL Calcium Level 8.3 MG/DL Magnesium Level 1.9 MG/DL Alkaline Phosphatase 76 U/L Aspartate Amino Transf (AST/SGOT) 9 U/L Alanine Aminotransferase (ALT/SGPT) 8 U/L Total Bilirubin 0.4 MG/DL Sodium Level 136 MEQ/L Potassium Level 2.9 MEQ/L Chloride Level 98 MEQ/L Carbon Dioxide Level 28.7 MEQ/L Anion Gap 9 MEQ/L Estimat Glomerular Filtration Rate 37 ML/MIN Troponin I LESS THAN 0.02 NG/ML Result Diagram: 01/07/17 1025 01/07/17 1300 Imaging Last Impressions Chest X-Ray 01/07/17 0000 Signed Impressions: Service Date/Time: Saturday, January 07, 2017 12:59 - CONCLUSION: 1. Stable large bore right-sided chest tube with mild interval enlargement of right basilar pneumothorax in comparison to 01/06 exam but improved in comparison to 01/04 exam. 2. Stable extensive subcutaneous emphysema. 3. Stable extensive cavitary airspace consolidation throughout the right upper and midlung zones. 1. Edenilson Villarreal MD Lung Biopsy CT 12/23/16 0000 Signed Impressions: Service Date/Time: Friday, December 23, 2016 09:37 - CONCLUSION: Uncomplicated CT guided biopsy/aspiration. Broderick Ndiaye MD Chest CT 12/17/16 1715 Signed Impressions: Service Date/Time: Saturday, December 17, 2016 17:51 - CONCLUSION: 1. Dense consolidation persists in the right upper lobe with air bronchograms and air filled cystic spaces. Debris versus possible fungus ball in one of the cystic spaces at the apex which is new. Multi-organism pneumonia suspected. 2. Non-consolidative patchy infiltrate of the right middle and lower lobes not significantly changed. 3. Decreased pleural effusion on the right, now trace. Completely resolved pleural effusion on the left. 4. Previous median sternotomy. Caio Wray MD Upper Extremity Ultrasound 12/04/16 0000 Signed Impressions: Service Date/Time: November 18:26 - CONCLUSION: Venous mapping as delineated above. The cephalic veins are abnormal bilaterally. Caio Villalpando MD Renal Biopsy CT 12/02/16 1350 Signed Impressions: Service Date/Time: Friday, December 02, 2016 08:33 - CONCLUSION: Uncomplicated CT guided biopsy of the right kidney for function. Mustapha Vela Jr., MD Catheter Placement X-Ray 11/28/16 0000 Signed Impressions: Service Date/Time: Monday, November 28, 2016 15:57 - CONCLUSION: Uncomplicated PermaCath placement as above. Mustapha Vela Jr., MD Renal Ultrasound 11/22/16 0000 Signed Impressions: Service Date/Time: Tuesday, November 22, 2016 17:14 - CONCLUSION: Mild pelvocaliectasis right kidney not present previously. 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 Follow neuro status. Cardiovascular: Watch for hypotension. 2-D echo with normal LV function. Pulmonary: Continue nonrebreather facemask. Will attempt high flow nasal cannula. 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 His chest x-ray today shows small basilar pneumothorax which is actually better than his chest x-ray on 01/04. Discussed with Dr. Roth. Patient may require surgery for bronchopleural fistula if respiratory status does not improve it and let leak persists. Prednisone being tapered by Dr. Cheung. GI/liver: By mouth diet if as per status improves. Renal/: Does completed hemodialysis. Nephrology following. Strict intake output, monitor and replete electrolytes, follow BUN creatinine. ID: Has completed course of antibiotics. No evidence of fungus on pathology so far from lung biopsy. Awaiting final results per Dr. Roth. Heme: Has been transfused multiple times during this admission. Transfuse to keep hemoglobin above 7 g percent. Epogen with hemodialysis. Has not had EGD or colonoscopy due to poor respiratory status and has been evaluated by GI. Endocrine: Watch for hyperglycemia, SSI for glycemic control if needed. Prophylaxis: SCDs, Lovenox Discussed with Dr. Roth, discussed with Dr. Sellers, discussed with LAB PACK CHEMIST. Condition remains critical. If patient's respiratory status declines may require surgery for right bronchopleural fistula. Time spent on critical care excluding procedures 60 minutes. Mehrdad Mackay MD Jan 07, 2017 17:42
--- NOTE | 2017-01-07 18:09 | HHI.PR ---
Subjective Remarks S/P Right Thoracotomy and right Upper lobe biopsies and Decortication. Has a leak from chest tube. No SOB at Rest . On o2 at 100 % NRB mask..Was in distress today in dialysis . Now in ICU. Has some subcutaneous emphysema. C/O pain in chest. Objective Vital Signs Date Time Temp Pulse Resp B/P (MAP) Pulse Ox O2 Delivery O2 Flow Rate FiO2 01/07/17 16:41 108 01/07/17 15:45 119 01/07/17 15:31 94 Nasal Cannula 20.00 50 01/07/17 15:31 115 01/07/17 15:30 98.2 119 24 116/70 (85) 94 01/07/17 14:13 93 Nasal Cannula 20.00 50 01/07/17 14:12 124 01/07/17 14:10 98.0 124 28 102/75 (84) 92 01/07/17 14:05 98 High Flow Nasal Cannula 20.00 50 01/07/17 13:52 18 01/07/17 13:52 18 01/07/17 12:45 98 15.00 01/07/17 09:00 84 01/07/17 08:46 93 Nasal Cannula 3.00 01/07/17 08:00 76 01/07/17 07:00 96 Nasal Cannula 3.00 01/07/17 07:00 98.0 82 18 145/84 (104) 96 01/07/17 07:00 82 01/07/17 06:00 96 01/07/17 05:00 79 01/07/17 04:00 86 01/07/17 03:15 96 Nasal Cannula 3.00 01/07/17 03:15 97.7 95 18 137/93 (108) 96 01/07/17 03:00 87 01/07/17 02:00 90 01/07/17 01:00 90 01/07/17 00:03 101 01/06/17 23:36 97.6 87 20 158/87 (110) 96 01/06/17 23:36 96 Nasal Cannula 3.00 01/06/17 23:00 82 01/06/17 22:00 82 01/06/17 21:07 96 Nasal Cannula 5.00 01/06/17 21:00 88 01/06/17 20:33 97.6 84 18 141/83 (102) 96 01/06/17 20:33 96 Nasal Cannula 5.00 01/06/17 20:00 95 01/06/17 19:00 104 I/O 01/06/17 01/06/17 01/06/17 01/07/17 01/07/17 01/07/17 07:00 15:00 23:00 07:00 15:00 23:00 Intake Total 702 ml 946 ml 480 ml 360 ml Output Total 515 ml 940 ml 650 ml Balance 187 ml 6 ml -170 ml 360 ml Intake Oral 480 ml 400 ml 480 ml 360 ml IV Total 222 ml 546 ml Output Urine Total 275 ml 750 ml 650 ml Stool Total 0 ml Chest Tube Drainage Total 240 ml 190 ml # Bowel Movements 1 Result Diagram: 01/07/17 1025 01/07/17 1300 Objective Remarks GENERAL: This is a middle-aged averagely built white male who is alert and in no distress . HEAD, EYES, EARS, NOSE, THROAT: Head normocephalic. The pupils are reactive. Throat is clear. NECK: The neck is supple. No bruits. No thyroid enlargement. No lymphadenopathy.Subcutaneous emphysema of chest wall on right . CHEST: Equal movements. wheeze heard over Right chest and Crackles. HEART: Heart sounds are regular. S1 and S2. No murmur. ABDOMEN: Abdomen is soft and nontender. No masses EXTREMITIES: Mild edema. No calf tenderness. NEUROLOGIC: Reflexes are normal. No focal deficits. SKIN: Warm. Assessment and Plan Assessment and Plan IMPRESSION: 1. Extensive right lung pneumonia with hypoxemia. 2. Chronic kidney disease with acute renal failure. 3. COPD with emphysema and chronic bronchitis. 4. History of coronary artery bypass grafting. Plan : 1. Chest tube to wall 20 CM suction 2. O2 2 L. N/C 3. Nebs qid , duoneb 4. IS at bedside qid. 5. CBC,BMP 6. Continue Prednisone 20 mg bid and taper 7. BiPAP 12/5 cm if he desats. Alison Wilson MD Jan 07, 2017 18:09
[2017-01-07] MEDS: RESP: ALBUTEROL 2.5 MG/3 ML NEB (PRN) NEB ×2 (21:18→23:47)
[2017-01-07] MEDS: PANTOPRAZOLE SOD 40 MG DELAYED RELEASE TAB PO SCH (21:31)
[2017-01-07] MEDS: SODIUM CHLORIDE 0.9% FLUSH 10 ML FLUSH IV FLUSH PRN (21:33)
[2017-01-07] MEDS ORDERED: POTASSIUM PHOSPHATE INJ 30 MMOL in SODIUM CHLOR 0.9% 250 ML INJ 250 ML IV PRN (23:15)
[2017-01-07] MEDS ORDERED: MAGNESIUM OXIDE 400 MG TAB PO PRN (23:15)
[2017-01-07] MEDS ORDERED: POTASSIUM PHOSPHATE MONOBASIC 500 MG TAB PO PRN (23:15)
[2017-01-07] MEDS ORDERED: MAGNESIUM SULFATE INJ 4 GM in SODIUM CHLORIDE 0.9% INJ 92 ML IV PRN (23:15)
[2017-01-07] MEDS ORDERED: POTASSIUM PHOSPHATE MONOBASIC 500 MG TAB PO/TUBE PRN (23:15)
[2017-01-07] MEDS ORDERED: POTASSIUM CHLOR 20 MEQ PREMIX 100 ML IV PRN ×2 (23:15)
[2017-01-07] MEDS ORDERED: POTASSIUM CHLOR 40 MEQ PREMIX 100 ML IV PRN ×2 (23:15)
[2017-01-07] MEDS ORDERED: MAGNESIUM SULFATE INJ 2 GM in SODIUM CHLORIDE 0.9% INJ 96 ML IV PRN (23:15)
[2017-01-07] MEDS ORDERED: SODIUM PHOSPHATE INJ 30 MMOL in SODIUM CHLOR 0.9% 250 ML INJ 240 ML IV PRN (23:15)
[2017-01-07] MEDS ORDERED: POTASSIUM CHLORIDE 25 MEQ EFFERVESCENT TAB PO PRN (23:15)
[2017-01-08] VITALS (10 sets, daily range): BP systolic 94–123; BP diastolic 56–82; PULSE 83–104; RESP 20–22; TEMP 98.3–98.9; O2SAT 93–96
[2017-01-08 04:37] LABS: BICARBONATE 28.6 MEQ/L (21.0-32.0)
--- NOTE | 2017-01-08 05:29 | RADRPT ---
EXAM DATE/TIME: 01/08/2017 04:22 [place] COMPARISON: CHEST SINGLE AP, January 07, 2017, 12:59. INDICATIONS : Shortness of breath, possible pulmonary disease. MEDICAL HISTORY : Chronic obstructive pulmonary disease. Cardiovascular disease. Hypertension. SURGICAL HISTORY : CABG. ENCOUNTER: Subsequent ACUITY: 2 days PAIN SCORE: 10/10 LOCATION: Bilateral chest FINDINGS: Irregular consolidation of the right upper lobe with right-sided volume loss again noted. Right chest tube remains in place. Previously seen basilar pneumothorax is no longer appreciated. Left lung remains clear. Some left chest wall emphysema is again noted. CONCLUSION: No perceptible pneumothorax. Right chest tube remains in place. Otherwise no change right upper lobe chronic consolidation and volume loss on the right. Caio Wray MD on January 08, 2017 at 5:27 Board Certified Radiologist. This report was verified electronically.
[2017-01-08] MEDS: RESP: BUDESONIDE 0.5 MG/2 ML NEB NEB SCH ×2 (07:45→20:43)
--- NOTE | 2017-01-08 08:35 | HHI.NPPN ---
Subjective General Problems: Anemia Renal Failure: Acute Interval History patient has been transferred to CVICU because of increased shortness of breath and tachycardia after dialysis yesterday. This morning he is more stable. Looks pale. Review of Systems General Constitutional: Fatigue Respiratory Lungs: Cough, Sputum Respiratory Remarks slightly hemoptysis Musculoskeletal MS: Pain/Stiffness Objective Data Data Vital Signs Date Time Temp Pulse Resp B/P (MAP) Pulse Ox O2 Delivery O2 Flow Rate FiO2 01/08/17 07:45 95 High Flow Nasal Cannula 25.00 45 01/08/17 03:00 95 Nasal Cannula 25.00 50 Humidified 01/08/17 03:00 98.3 86 21 94/64 (74) 95 01/08/17 03:00 86 01/07/17 23:00 98.4 99 22 99/71 (80) 94 01/07/17 23:00 91 Nasal Cannula 25.00 50 Humidified 01/07/17 23:00 99 01/07/17 21:18 92 High Flow Nasal Cannula 25.00 50 01/07/17 19:00 111 01/07/17 19:00 94 Nasal Cannula 20.00 50 Humidified 01/07/17 19:00 98.2 111 24 97/72 (80) 94 01/07/17 16:41 108 01/07/17 15:45 119 01/07/17 15:31 94 Nasal Cannula 20.00 50 01/07/17 15:31 115 01/07/17 15:30 98.2 119 24 116/70 (85) 94 01/07/17 14:13 93 Nasal Cannula 20.00 50 01/07/17 14:12 124 01/07/17 14:10 98.0 124 28 102/75 (84) 92 01/07/17 14:05 98 High Flow Nasal Cannula 20.00 50 01/07/17 13:52 18 01/07/17 13:52 18 01/07/17 12:45 98 15.00 01/07/17 09:00 84 01/07/17 08:46 93 Nasal Cannula 3.00 -: 01/07/17 1025 01/08/17 0340 Tubes & Lines: Perma-Cath Tubes & Lines Comment chest tube right. Physical Exam General Appearance: No Acute Distress, Comfortable, Pale, Malnourished Eyes Eye Exam: Pupils Equal, Pupils Reactive Throat Throat Exam: Oral Mucosa [place] & Moist Neck Neck Exam: Neck Supple Pulmonary Resp Exam: No Distress, Crackles, Rhonchi, Decreased Bases Cardiology CV Exam: Regular, Normal Sinus Rhythm, Good Perfusion Gastrointestinal/Abdomen GI Exam: Soft, Non-Tender, Bowel Sounds Present, Positive Bowel Movement Musculoskeletal MS Exam: Joints Intact, Normal Gait, Normal Tone, Atrophy Integumentary Skin Exam: Clear, Warm, Dry, Intact Extremeties Extremities Exam: No Edema, Pedal Pulses Palpable Neurologic Neuro Exam: Alert, Awake, Oriented, Speech Clear, Moving All Extremities Psychiatric Psych Exam: Appropriate Responses Assessment/Plan Discussed Condition With: Patient Assessment Summary: SEJAL/Acute Renal Failure, Anemia of CKD Electrolyte Assessment: Metabolic Acidosis Problem List: (1) Chronic kidney disease, stage 5 ICD Codes: N18.5 - Chronic kidney disease, stage 5 Status: Chronic Plan: Patient likely has reached ESRD. s/p renal biopsy this admission. H does make quite a bit of urine. Continue dialysis support MWF. Continue nutritional support with meals; on high protein diet AVF created failed. Needs new permanent access. Currently unstable for surgery. (2) Pneumonia ICD Codes: J18.9 - Pneumonia, unspecified organism Status: Acute Plan: Pulmonary and CTS surgery are following, s/p bronchoscopy and thoracotomy with decortication Biopsy negative for pulmonary aspergillus fungal ball in right lung s/p right thoracotomy 12/30 with chest tube placement; had air leak that CTS is managing with pulmonary Concerns for bronchopleural fistula noted. (3) Hypokalemia ICD Codes: E87.6 - Hypokalemia Status: Resolved Plan: corrected; thought to have a proximal renal tubular disorder Follow labs, he is off daily replacement (4) Hypocalcemia ICD Codes: E83.51 - Hypocalcemia Plan: Continue to treat hyperphosphatemia, on Sevelamer with meals. (5) Anemia ICD Codes: D64.9 - Anemia Status: Chronic Plan: Transfuse as needed, Most recent 12/30 Continue high dose of Epogen with dialysis. Check CBC today (6) Acidosis ICD Codes: E87.2 - Acidosis Status: Acute Plan: corrected with dialysis , monitor (7) GI bleed ICD Codes: K92.2 - Gastrointestinal hemorrhage, unspecified Status: Acute Plan: GI has signed off; s/p EGD/colonoscopy may need capsule endoscopy outpatient Problem Qualifiers (1) Pneumonia: Qualified Codes: J18.1 - Lobar pneumonia, unspecified organism (2) Anemia: Qualified Codes: N18.5 - Chronic kidney disease, stage 5; D63.1 - Anemia in chronic kidney disease (3) GI bleed: Jim Zuluaga MD Jan 08, 2017 08:35
[2017-01-08] MEDS: predniSONE 20 MG TAB PO SCH ×2 (09:00→21:28)
[2017-01-08] MEDS: HYDROCORTISONE ACETATE 25 MG SUPP RECTAL SCH ×2 (09:00→21:00)
[2017-01-08] MEDS: SODIUM CHLORIDE 0.9% FLUSH 5 ML FLUSH IV FLUSH SCH ×2 (09:00→21:00)
[2017-01-08] MEDS: SODIUM CHLORIDE 0.9% FLUSH 10 ML FLUSH IV FLUSH PRN ×2 (09:25→21:29)
[2017-01-08] MEDS: SODIUM CHLORIDE 0.9% FLUSH 5 ML FLUSH IV FLUSH PRN (09:25)
[2017-01-08] MEDS: SEVELAMER CARBONATE 800 MG TAB PO SCH ×3 (09:25→17:14)
[2017-01-08] MEDS: LACTOBACILLUS ACIDOPHILUS TAB PO SCH ×2 (09:26→21:28)
[2017-01-08] MEDS: CHOLECALCIFEROL (VIT D3) 1000 UNIT TAB PO SCH (09:26)
[2017-01-08] MEDS: DOCUSATE SODIUM 100 MG CAP PO SCH ×2 (09:26→21:29)
[2017-01-08] MEDS: POLYETHYLENE GLYCOL 17 GM PKG PO SCH (09:27)
[2017-01-08] MEDS: ACETAMINOPHEN/HYDROcodone 325 MG/5 MG TAB PO PRN ×4 (09:27→22:14)
[2017-01-08] MEDS: ASCORBIC ACID 500 MG TAB PO SCH ×2 (12:00→17:33)
[2017-01-08] MEDS: FERROUS SULFATE 325 MG (65 MG ELEMENTAL IRON) TAB PO SCH ×2 (12:28→17:28)
--- NOTE | 2017-01-08 14:44 | EKG ---
Date Performed: 01/07/2017 Time Performed: 15:41:28 PTAGE: 56 years EKG: Sinus tachycardia Rightward axis rSr'(V1) - probable normal variant Anterior T wave changes are nonspecific Borderline ECG PREVIOUS TRACING : 01/07/2017 13.07 Since prior tracing, baseline artifact has resolved and is more clearly sinus tachycardia. DOCTOR: Stanley Rosas Interpretating Date/Time 01/08/2017 14:40:45
--- NOTE | 2017-01-08 14:44 | EKG ---
Date Performed: 01/07/2017 Time Performed: 13:07:44 PTAGE: 56 years EKG: Sinus tachycardia with PAC(s). Inferior/lateral T wave changes are nonspecific Borderline E CG NO PREVIOUS TRACING Since prior tracing, sinus rate with PACs has increased. There is hea vy baseline artifact and is likely sinus, but would repeat EKG with better baseline to exclude atrial fibrillation. DOCTOR: Stanley Rosas Interpretating Date/Time 01/08/2017 14:39:09
--- NOTE | 2017-01-08 14:49 | HHI.CCPN ---
Subjective Remarks/Hospital Course 01/07: 55 yo male with 6 weeks of fever, SOB, worsening cough On presentation in late November pt was found to have ARF on CKD His renal biopsy revealed severe interstitial fibrosis, tubular atrophy and findings suggestive MPGN, with significant global glomerular sclerosis. He was start on dialysis support MWF. AVF attempted, but failed, he has Permacath On presentation he was found tro have dense RUL PNA on CT His expectoration sputum and BAL were unrevealing His repeat CT showed again dense consolidation persists in the right upper lobe with air bronchograms and air filled cystic spaces. Debris versus possible fungus ball in one of the cystic spaces at the apex which is new. Multi-organism pneumonia suspected. Patient was evaluated by ID and CT surgery consulted for bx. On 12/30 patient underwent right thoracotomy with VATS, lysis of adhesions, decortication, pleural biopsy with cultures and right upper lobe biopsy with cultures under general anesthesia. He did have a chest tube placed during that procedure. He was noted to have a 1+ air leak on 01/01. Over the course of next few days his air leak has worsened. Patient was placed on -10 cm of water pressure today and subsequently underwent hemodialysis. Towards the end of hemodialysis patient developed worsening shortness of breath with O2 sats dropping to the 80s. Patient was placed on 100% nonrebreather facemask and stat chest x-ray revealed small basilar right pneumothorax with chest tube in place and chronic right sided infiltrates with loss of lung volume. Chest tube was placed to -30 cm water pressure with underwater seal and patient was subsequently rapid responded and transferred to CV ICU. Critical care consult was requested by Dr. Walton. I evaluated the patient immediately on his arrival to the ICU at that time he was on 100% nonrebreather facemask with O2 sats in the mid 90s. He appeared to have improved since increasing negative pressure on chest tube. I discussed the case with Dr. Roth at bedside. 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 He was maintaining his blood pressure and oxygen saturation at this time. He has been evaluated by pulmonary medicine and ID during this hospitalization as well. 01/08: Resting in bed this morning breathing appears to be better than yesterday. Remains on high flow nasal cannula this morning at the time of my evaluation however air leak from right chest tube seems to have stopped. Objective Vital Signs Date Time Temp Pulse Resp B/P (MAP) Pulse Ox O2 Delivery O2 Flow Rate FiO2 01/08/17 13:50 20 01/08/17 13:22 102 01/08/17 13:14 98.3 110/78 (89) 93 01/08/17 11:42 Nasal Cannula 20.00 45 Intake and Output 01/08/17 01/08/17 01/09/17 08:00 16:00 00:00 Intake Total 340 ml Output Total 410 ml Balance -70 ml Result Diagram: 01/07/17 1025 01/08/17 0340 Imaging Last Impressions Chest X-Ray 01/07/17 0000 Signed Impressions: Service Date/Time: Saturday, January 07, 2017 12:59 - CONCLUSION: 1. Stable large bore right-sided chest tube with mild interval enlargement of right basilar pneumothorax in comparison to 01/06 exam but improved in comparison to 01/04 exam. 2. Stable extensive subcutaneous emphysema. 3. Stable extensive cavitary airspace consolidation throughout the right upper and midlung zones. 1. Edenilson Villarreal MD Lung Biopsy CT 12/23/16 0000 Signed Impressions: Service Date/Time: Friday, December 23, 2016 09:37 - CONCLUSION: Uncomplicated CT guided biopsy/aspiration. Broderick Ndiaye MD Chest CT 12/17/16 1715 Signed Impressions: Service Date/Time: Saturday, December 17, 2016 17:51 - CONCLUSION: 1. Dense consolidation persists in the right upper lobe with air bronchograms and air filled cystic spaces. Debris versus possible fungus ball in one of the cystic spaces at the apex which is new. Multi-organism pneumonia suspected. 2. Non-consolidative patchy infiltrate of the right middle and lower lobes not significantly changed. 3. Decreased pleural effusion on the right, now trace. Completely resolved pleural effusion on the left. 4. Previous median sternotomy. Caio Wray MD Upper Extremity Ultrasound 12/04/16 0000 Signed Impressions: Service Date/Time: November 18:26 - CONCLUSION: Venous mapping as delineated above. The cephalic veins are abnormal bilaterally. Caio Villalpando MD Renal Biopsy CT 12/02/16 1350 Signed Impressions: Service Date/Time: Friday, December 02, 2016 08:33 - CONCLUSION: Uncomplicated CT guided biopsy of the right kidney for function. Mustapha Vela Jr., MD Catheter Placement X-Ray 11/28/16 0000 Signed Impressions: Service Date/Time: Monday, November 28, 2016 15:57 - CONCLUSION: Uncomplicated PermaCath placement as above. Mustapha Vela Jr., MD Renal Ultrasound 11/22/16 0000 Signed Impressions: Service Date/Time: Tuesday, November 22, 2016 17:14 - CONCLUSION: Mild pelvocaliectasis right kidney not present previously. Obdulia Garcia MD Objective Remarks Physical Exam GENERAL: This is a well-nourished, well-developed patient laying in bed, not in any acute distress on high flow nasal cannula SKIN: No rashes, ecchymoses or lesions. Cool and dry. HEAD: Atraumatic. Normocephalic. No temporal or scalp tenderness. EYES: Pupils equal round and reactive. Pallor present Extraocular motions intact. No scleral icterus. No injection or drainage. ENT: Nose without bleeding, purulent drainage or septal hematoma. Throat without erythema, tonsillar hypertrophy or exudate. Uvula midline. Airway patent. NECK: Trachea midline. No JVD or lymphadenopathy. CARDIOVASCULAR: Regular rate and rhythm without murmurs, gallops, or rubs. Well- healed sternotomy incision. Dressing over right thoracotomy site, chest tube in place with no air leak noted at the time of my evaluation RESPIRATORY: Decreased BS on right. Subcutaneous emphysema over chest wall near chest tube insertion site. Rhonchi over right lung field, left lung field appears clear with no wheezing or crackles. GASTROINTESTINAL: Abdomen soft, non-tender, nondistended. No hepato-splenomegaly , or palpable masses. No guarding. MUSCULOSKELETAL: Extremities without clubbing, cyanosis, or edema. No joint tenderness, effusion, or edema noted. No calf tenderness. NEUROLOGICAL: Awake alert oriented 3, moves all 4 extremities, grossly nonfocal Procedures 11/28/2016 Right Internal Jugular Hemodialysis Catheter Tunneled Placement dual lumen 12/02/2016 Successful right renal biopsy for function. Gelfoam and thrombin utilized. No bleeding on post CT Lung Biopsy 12/23/16. Dialysis 12/24/16. 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 Follow neuro status. Cardiovascular: Watch for hypotension. 2-D echo with normal LV function. Pulmonary: On high flow nasal cannula. His air leak seems to have stopped currently. Patient may require surgery for bronchopleural fistula if respiratory status does not improve or if he keeps having recurrent air leak. Prednisone being tapered by Dr. Cheung. GI/liver: By mouth diet if respiratory status improves. Renal/: On hemodialysis. Nephrology following. Strict intake output, monitor and replete electrolytes, follow BUN creatinine. ID: Has completed course of antibiotics. No evidence of fungus on pathology so far from lung biopsy. Awaiting final results per Dr. Roth. Heme: Has been transfused multiple times during this admission. Transfuse to keep hemoglobin above 7 g percent. Epogen with hemodialysis. Has not had EGD or colonoscopy due to poor respiratory status and has been evaluated by GI. Endocrine: Watch for hyperglycemia, SSI for glycemic control if needed. Prophylaxis: SCDs, Lovenox Discussed with Dr. Roth, discussed with Dr. Cheung, discussed with MINERAL SURVEYOR. Condition remains critical. If patient's respiratory status declines may require surgery for right bronchopleural fistula. Discuss with CTS KILN TRANSFER OPERATOR, discussed with MINERAL SURVEYOR. Mehrdad Mackay MD Jan 08, 2017 14:49
--- NOTE | 2017-01-08 17:15 | PD.CAR.PN ---
CVT Progress Note Subjective/Hospital Course: ct guided lung bx / no fungal elements Dr Claire Lott requesting re-eval for possible thoractomy discussed with pt right thoracotomy for pulmonary resection Dr Roth will discuss further with pt on Thursday tentatively scheduled for case 12/29 Dr Roth discussed surgery / risks / procedure with pt / he ia agreeable to proceed for surgery in am 12/30 Right thoracotomy with VATS assist, lysis of adhesions, decortication, pleural biopsies and cultures, right upper lobe biopsies and cultures Right upper lobe resection was considered, but not technically feasible due to the dense consolidation, inflammation, and frozen hilum associated. 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 Denies dyspnea and comfortable 01/04/17 Persistent large air leak. No complaints otherwise 01/05/17 c/o pain related to chest tube site and pleuritic irritation. air leak a little better this morning. PATH still pending from biopsies submitted at the time of surgery last week. 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 incision intact right posterior lateral chest wall HEAD: Normocephalic. EYES: No scleral icterus. No injection or drainage. NECK: Supple, trachea midline. No JVD or lymphadenopathy. CARDIOVASCULAR: Regular rate and rhythm without murmurs, gallops, or rubs. RESPIRATORY: Breath sounds equal bilaterally. No accessory muscle use. sub q emphysema improving, chest tube to 30cm suction no further air leak noted GASTROINTESTINAL: Abdomen soft, non-tender, nondistended. MUSCULOSKELETAL: No cyanosis, or edema. BACK: Nontender without obvious deformity. No CVA tenderness. Vital Signs Date Time Temp Pulse Resp B/P (MAP) Pulse Ox O2 Delivery O2 Flow Rate FiO2 01/08/17 16:00 103 01/08/17 15:03 95 Nasal Cannula 20.00 45 01/08/17 15:02 98.3 104 20 114/82 (93) 95 01/08/17 13:50 20 01/08/17 13:22 102 01/08/17 13:14 98.3 104 20 110/78 (89) 93 01/08/17 11:42 94 Nasal Cannula 20.00 45 01/08/17 07:45 95 High Flow Nasal Cannula 25.00 45 01/08/17 07:15 88 01/08/17 07:15 93 Nasal Cannula 20.00 45 01/08/17 07:15 98.9 83 20 117/56 (76) 95 01/08/17 03:00 95 Nasal Cannula 25.00 50 Humidified 01/08/17 03:00 98.3 86 21 94/64 (74) 95 01/08/17 03:00 86 01/07/17 23:00 98.4 99 22 99/71 (80) 94 01/07/17 23:00 91 Nasal Cannula 25.00 50 Humidified 01/07/17 23:00 99 01/07/17 21:18 92 High Flow Nasal Cannula 25.00 50 01/07/17 19:00 111 01/07/17 19:00 94 Nasal Cannula 20.00 50 Humidified 01/07/17 19:00 98.2 111 24 97/72 (80) 94 Result Diagram: 01/07/17 1025 01/08/17 0340 Telemetry: NSR (1) Pulmonary infiltrate in right lung on chest x-ray Plan: pulm toileting nebs, ezpap OOB ambulate consult PT pain control / DC OCCUPATIONAL HEALTH PHYSICIAN/po norco prn cultures neg to date path pending (2) Pneumonia Plan: post ABX/ ID signed off (3) Right thoracotomy with VATS assist, lysis of adhesions, decortication, pleural biopsies Plan: leave chest tube suction at 30cm wean off high flow 02 per resp pulm toileting nebs ezpap , acapella OOB as tolerated path pending Problem Qualifiers (1) Pneumonia: Qualified Codes: J18.1 - Lobar pneumonia, unspecified organism Marly Heart Jan 08, 2017 17:15
--- NOTE | 2017-01-08 18:54 | HHI.PR ---
Subjective Remarks S/P Right Thoracotomy and right Upper lobe biopsies and Decortication. Has a leak from chest tube. Has SOB at Rest . On o2 at 5 L N/C Better today and Now in ICU. Has some subcutaneous emphysema. C/O pain in chest. Objective Vital Signs Date Time Temp Pulse Resp B/P (MAP) Pulse Ox O2 Delivery O2 Flow Rate FiO2 01/08/17 18:24 20 01/08/17 16:00 103 01/08/17 15:03 95 Nasal Cannula 20.00 45 01/08/17 15:02 98.3 104 20 114/82 (93) 95 01/08/17 13:22 102 01/08/17 13:14 98.3 104 20 110/78 (89) 93 01/08/17 11:42 94 Nasal Cannula 20.00 45 01/08/17 07:45 95 High Flow Nasal Cannula 25.00 45 01/08/17 07:15 88 01/08/17 07:15 93 Nasal Cannula 20.00 45 01/08/17 07:15 98.9 83 20 117/56 (76) 95 01/08/17 03:00 95 Nasal Cannula 25.00 50 Humidified 01/08/17 03:00 98.3 86 21 94/64 (74) 95 01/08/17 03:00 86 01/07/17 23:00 98.4 99 22 99/71 (80) 94 01/07/17 23:00 91 Nasal Cannula 25.00 50 Humidified 01/07/17 23:00 99 01/07/17 21:18 92 High Flow Nasal Cannula 25.00 50 01/07/17 19:00 111 01/07/17 19:00 94 Nasal Cannula 20.00 50 Humidified 01/07/17 19:00 98.2 111 24 97/72 (80) 94 I/O 01/07/17 01/07/17 01/07/17 01/08/17 01/08/17 01/08/17 07:00 15:00 23:00 07:00 15:00 23:00 Intake Total 480 ml 360 ml 340 ml 1080 ml Output Total 650 ml 230 ml 410 ml 250 ml Balance -170 ml 130 ml -70 ml 830 ml Intake Oral 480 ml 360 ml 340 ml 840 ml Oral Supplement 240 ml Output Urine Total 650 ml 240 ml 250 ml Chest Tube Drainage Total 230 ml 170 ml # Bowel Movements 1 0 Result Diagram: 01/07/17 1025 01/08/17 0340 Objective Remarks GENERAL: This is a middle-aged averagely built white male who is alert and in mild distress . HEAD, EYES, EARS, NOSE, THROAT: Head normocephalic. The pupils are reactive. Throat is clear. NECK: The neck is supple. No bruits. No thyroid enlargement. No lymphadenopathy.Subcutaneous emphysema of chest wall on right . CHEST: Equal movements. wheeze heard over Right chest and occ Crackles. HEART: Heart sounds are regular. S1 and S2. No murmur. ABDOMEN: Abdomen is soft and nontender. No masses EXTREMITIES:No edema. No calf tenderness. NEUROLOGIC: Reflexes are normal. No focal deficits. SKIN: Warm. Assessment and Plan Assessment and Plan IMPRESSION: 1. Extensive right lung pneumonia with hypoxemia. 2. Chronic kidney disease with acute renal failure. 3. COPD with emphysema and chronic bronchitis. 4. History of coronary artery bypass grafting. Plan : 1. Chest tube to wall 20 CM suction 2. O2 2 L. N/C 3. Nebs qid , duoneb 4. IS at bedside qid. 5. CBC,CXR in am 6. Continue Prednisone 10 mg bid . 7. BiPAP 12/5 cm if he desats. Alison Wilson MD Jan 08, 2017 18:54
[2017-01-08] MEDS ORDERED: PILL SPLITTER OTHER PRN (19:15)
[2017-01-08] MEDS: PANTOPRAZOLE SOD 40 MG DELAYED RELEASE TAB PO SCH (21:29)
[2017-01-09] VITALS (10 sets, daily range): BP systolic 114–130; BP diastolic 75–82; PULSE 74–100; RESP 16–20; TEMP 97.8–98.7; O2SAT 88–98
[2017-01-09] MEDS: ACETAMINOPHEN/HYDROcodone 325 MG/5 MG TAB PO PRN ×5 (02:49→21:26)
[2017-01-09 05:57] LABS: AUTOMATED NEUTROPHIL # 13.1 TH/MM3 (1.8-7.7); BASOPHIL % 0.1 % (0.0-2.0); EOSINOPHIL # 0.1 TH/MM3 (0-0.4); EOSINOPHIL % 0.6 % (0.0-4.0); HEMATOCRIT 24.3 % (39.0-51.0); HEMO FLAGS DIFF FINAL; LYMPH % 5.4 % (9.0-44.0); LYMPHOCYTE # 0.8 TH/MM3 (1.0-4.8); MEAN CORPUSCULAR HEMOGLOBIN 30.4 PG (27.0-34.0); MEAN CORPUSCULAR HGB CONC 32.7 % (32.0-36.0); MONO % 4.8 % (0.0-8.0); NEUT % 89.1 % (16.0-70.0); PLATELET COUNT 243 TH/MM3 (150-450); RED BLOOD COUNT 2.62 MIL/MM3 (4.50-5.90); RED CELL DISTRIBUTION WIDTH 16.6 % (11.6-17.2); WHITE BLOOD COUNT 14.8 TH/MM3 (4.0-11.0)
[2017-01-09 06:17] LABS: BICARBONATE 29.8 MEQ/L (21.0-32.0); POTASSIUM 3.5 MEQ/L (3.5-5.1)
[2017-01-09] MEDS: POLYETHYLENE GLYCOL 17 GM PKG PO SCH ×2 (09:00→12:51)
[2017-01-09] MEDS: SODIUM CHLORIDE 0.9% FLUSH 5 ML FLUSH IV FLUSH SCH ×2 (09:00→21:00)
[2017-01-09] MEDS: HYDROCORTISONE ACETATE 25 MG SUPP RECTAL SCH ×3 (09:00→21:00)
[2017-01-09] MEDS: ALBUMIN HUMAN 25% 25 GM/100 ML BAGP IV PRN (09:12)
[2017-01-09] MEDS: GENTAMICIN SULFATE (DIALYSIS USE ONLY) 20 MG/2 ML VIAL IV PRN (09:13)
[2017-01-09] MEDS: HEPARIN SODIUM - IV 10,000 UNITS/10 ML VIAL PRN (09:15)
--- NOTE | 2017-01-09 09:34 | HHI.NPPN ---
Subjective General Problems: Anemia Renal Failure: Acute Interval History Seen during bedside dialysis. He feels his breathing has improved. (Milla Pack) Review of Systems General Constitutional: Fatigue (Milla Pack) Respiratory Lungs: Cough, Sputum (Milla Pack) Musculoskeletal MS: Pain/Stiffness (Milla Pack) Objective Data Data Vital Signs Date Time Temp Pulse Resp B/P (MAP) Pulse Ox O2 Delivery O2 Flow Rate FiO2 01/09/17 08:00 90 High Flow Nasal Cannula 20.00 100 01/09/17 06:45 88 High Flow Nasal Cannula 25.00 60 01/09/17 03:00 74 01/09/17 03:00 98.4 74 20 123/81 (95) 96 01/09/17 03:00 96 Nasal Cannula 20.00 45 Humidified 01/08/17 23:00 98.9 88 21 123/80 (94) 95 01/08/17 23:00 88 01/08/17 23:00 95 Nasal Cannula 20.00 45 Humidified 01/08/17 20:45 95 High Flow Nasal Cannula 20.00 45 01/08/17 19:00 98.6 94 22 111/70 (84) 96 01/08/17 19:00 94 01/08/17 19:00 96 Nasal Cannula 20.00 45 Humidified 01/08/17 18:24 20 01/08/17 16:00 103 01/08/17 15:03 95 Nasal Cannula 20.00 45 01/08/17 15:02 98.3 104 20 114/82 (93) 95 01/08/17 13:22 102 01/08/17 13:14 98.3 104 20 110/78 (89) 93 01/08/17 11:42 94 Nasal Cannula 20.00 45 (Milla Pack) -: 01/09/17 0504 01/09/17 0504 Imaging Last 72 hours Impressions Chest X-Ray 01/08/17 0600 Signed Impressions: Service Date/Time: January 04:22 - CONCLUSION: No perceptible pneumothorax. Right chest tube remains in place. Otherwise no change right upper lobe chronic consolidation and volume loss on the right. Caio Wray MD Chest X-Ray 01/07/17 0000 Signed Impressions: Service Date/Time: Saturday, January 07, 2017 12:59 - CONCLUSION: 1. Stable large bore right-sided chest tube with mild interval enlargement of right basilar pneumothorax in comparison to 01/06 exam but improved in comparison to 01/04 exam. 2. Stable extensive subcutaneous emphysema. 3. Stable extensive cavitary airspace consolidation throughout the right upper and midlung zones. 1. Edenilson Villarreal MD Tubes & Lines: Perma-Cath Tubes & Lines Comment chest tube right. (Milla Pack) Physical Exam General Appearance: No Acute Distress, Comfortable, Pale, Malnourished (Milla Pack TUBE WINDER HAND) Eyes Eye Exam: Pupils Equal, Pupils Reactive (Milla Pack TUBE WINDER HAND) Throat Throat Exam: Oral Mucosa Griffith & Moist (Milla Pack BCee TUBE WINDER HAND) Neck Neck Exam: Neck Supple (Milla PackP) Pulmonary Resp Exam: No Distress, Crackles, Rhonchi, Decreased Bases Resp Remarks course right side lung sounds; chest tube right subcutaneous air right arm, right lower abdomen, upper chest wall (Milla Pack B. TUBE WINDER HAND) Cardiology CV Exam: Regular, Normal Sinus Rhythm, Good Perfusion (Milla Pack BCee TUBE WINDER HAND) Gastrointestinal/Abdomen GI Exam: Soft, Non-Tender, Bowel Sounds Present, Positive Bowel Movement (Milla Pack BCee TUBE WINDER HAND) Musculoskeletal MS Exam: Joints Intact, Normal Gait, Normal Tone, Atrophy (Milla PackP) Integumentary Skin Exam: Clear, Warm, Dry, Intact (Milla Pack TUBE WINDER HAND) Extremeties Extremities Exam: No Edema, Pedal Pulses Palpable (Milla Pack B. TUBE WINDER HAND) Neurologic Neuro Exam: Alert, Awake, Oriented, Speech Clear, Moving All Extremities (Milla Pack TUBE WINDER HAND) Psychiatric Psych Exam: Appropriate Responses (Milla Pack) Assessment/Plan Discussed Condition With: Patient Assessment Summary: SEJAL/Acute Renal Failure, Anemia of CKD Electrolyte Assessment: Metabolic Acidosis Problem List: (1) Chronic kidney disease, stage 5 ICD Codes: N18.5 - Chronic kidney disease, stage 5 Status: Chronic Plan: Patient likely has reached ESRD. s/p renal biopsy this admission. He does make quite a bit of urine. Continue dialysis support MWF. Seen during dialysis today on a 3K, 350 BFR, goal 1L or as tolerated. Continue nutritional support with meals; on high protein diet AVF creation failed. He will need permanent HD access placed. Currently unstable for surgery. Will consult vascular when he is more stable. (2) Pneumonia ICD Codes: J18.9 - Pneumonia, unspecified organism Status: Acute Plan: Pulmonary and CTS surgery are following, s/p bronchoscopy and thoracotomy with decortication Biopsy negative for pulmonary aspergillus fungal ball in right lung s/p right thoracotomy 12/30 with chest tube placement; had air leak that CTS is managing with pulmonary Concerns for bronchopleural fistula noted. May need additional surgery. Serial chest xrays have been taken. (3) Hypokalemia ICD Codes: E87.6 - Hypokalemia Status: Resolved Plan: corrected; thought to have a proximal renal tubular disorder Follow labs, he is off daily replacement (4) Hypocalcemia ICD Codes: E83.51 - Hypocalcemia Plan: Continue to treat hyperphosphatemia, on Sevelamer with meals. (5) Anemia ICD Codes: D64.9 - Anemia Status: Chronic Plan: Transfuse as needed, Most recent 12/30 Continue high dose of Epogen with dialysis. Check CBC intermittently; goal Hb > 7 (6) Acidosis ICD Codes: E87.2 - Acidosis Status: Acute Plan: corrected with dialysis , monitor (7) GI bleed ICD Codes: K92.2 - Gastrointestinal hemorrhage, unspecified Status: Acute Plan: GI has signed off; s/p EGD/colonoscopy may need capsule endoscopy outpatient (Milla Pack) Plan patient was seen and examined. Agree with above assessment and plan. (Jim Zuluaga MD) Problem Qualifiers (1) Pneumonia: Qualified Codes: J18.1 - Lobar pneumonia, unspecified organism (2) Anemia: Qualified Codes: N18.5 - Chronic kidney disease, stage 5; D63.1 - Anemia in chronic kidney disease (3) GI bleed: Milla Pack Jan 09, 2017 09:34 Jim Zuluaga MD Jan 09, 2017 16:50
--- NOTE | 2017-01-09 09:36 | RADRPT ---
EXAM DATE/TIME: 01/09/2017 09:06 [facility] COMPARISON: CHEST SINGLE AP, January 08, 2017, 4:22. INDICATIONS : Evaluate for pneumothorax. MEDICAL HISTORY : Chronic obstructive pulmonary disease. Cardiovascular disease. Hypertension. Kidney failure. SURGICAL HISTORY : CABG. ENCOUNTER: Subsequent ACUITY: 3 weeks PAIN SCORE: 0/10 LOCATION: Bilateral chest FINDINGS: Right thoracostomy tube remains in place. Right chest dialysis catheter is stable in position. Consol idative pleural-parenchymal disease in the right perihilar region and mid to upper lung zone is basic ally stable. Left lung remains grossly clear. Cardiac contours are unchanged. Subcutaneous emphysema is again noted bilaterally. CONCLUSION: Stable chest appearance Caio Yang MD on January 09, 2017 at 9:31 Board Certified Radiologist. This report was verified electronically.
[2017-01-09] MEDS: RESP: BUDESONIDE 0.5 MG/2 ML NEB NEB SCH ×2 (11:53→21:02)
[2017-01-09] MEDS: predniSONE 20 MG TAB PO SCH ×2 (12:52→21:25)
[2017-01-09] MEDS: DOCUSATE SODIUM 100 MG CAP PO SCH ×2 (12:52→21:25)
[2017-01-09] MEDS: CHOLECALCIFEROL (VIT D3) 1000 UNIT TAB PO SCH (12:53)
[2017-01-09] MEDS: SEVELAMER CARBONATE 800 MG TAB PO SCH ×2 (12:53→17:53)
[2017-01-09] MEDS: LACTOBACILLUS ACIDOPHILUS TAB PO SCH ×2 (12:54→21:25)
[2017-01-09] MEDS: FERROUS SULFATE 325 MG (65 MG ELEMENTAL IRON) TAB PO SCH ×2 (12:54→17:53)
[2017-01-09] MEDS: SODIUM CHLORIDE 0.9% FLUSH 10 ML FLUSH IV FLUSH PRN (12:54)
[2017-01-09] MEDS: ASCORBIC ACID 500 MG TAB PO SCH ×2 (12:54→17:53)
--- NOTE | 2017-01-09 14:52 | PD.CAR.PN ---
CVT Progress Note Subjective/Hospital Course: ct guided lung bx / no fungal elements Dr Claire Lott requesting re-eval for possible thoractomy discussed with pt right thoracotomy for pulmonary resection Dr Roth will discuss further with pt on Thursday tentatively scheduled for case 12/29 Dr Roth discussed surgery / risks / procedure with pt / he ia agreeable to proceed for surgery in am 12/30 Right thoracotomy with VATS assist, lysis of adhesions, decortication, pleural biopsies and cultures, right upper lobe biopsies and cultures Right upper lobe resection was considered, but not technically feasible due to the dense consolidation, inflammation, and frozen hilum associated. 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, RADIOGRAPHER CARDIAC CATHETERIZATION dosing increase with breakthrough fentanly IV will need PT/ OOB ambulate pulm toileting path cultures pending 12/31 path and cultures pending 01/01 path pending no growth in cultures to date pain control improved, has ONQ pump and morphine RADIOGRAPHER CARDIAC CATHETERIZATION on GI motility meds ambulate/ OOB + 1 air leak in chest tube 01/02 now with +4 air leak + subq emphysema to right chest ONQ pump dc dressing removed / right chest tube site eval, no air air out of skin, reinforced with vaseline gauze no change in air leak remains on 01/03/17 Continues with impressive air leak and SQ emphysema. Denies dyspnea and comfortable 01/04/17 Persistent large air leak. No complaints otherwise 01/05/17 c/o pain related to chest tube site and pleuritic irritation. air leak a little better this morning. PATH still pending from biopsies submitted at the time of surgery last week. 01/06/17 still has extensive air leak ct to 20cm suction + sub q emphysema bilateral anterior chest wall and shoulders path pending will dc director information security MS, prn norco for pain / breakthrough fentanly 10/ persistent air leak +4 subq emphysema improving to chest still get very SOB with any exertion receiving dialysis at this time pain controlled 10/5 pt remains in CVICU was on high flow last pm 25liters no further air leak noted in chest tube chamber, less subq emphysema noted pt encouraged to ask for pain meds to improve pulm toileting chest xray, no PTX path pending , will get pt OOB to chair appreciate CCM 10/6 pt now with recurrent air leak + 4-5, remains at 30cm suction cxr noted, + subq emphysema , some consolidation right perihilar region wean high flow 02 slowly , now at 20 liters / 60% fi02 OOB to chair as tolerated pain control, s/p dialysis today Objective: GENERAL: SKIN: Warm and dry. incision intact and well approximated right postero lateral chest wall HEAD: Normocephalic. EYES: No scleral icterus. No injection or drainage. NECK: Supple, trachea midline. No JVD or lymphadenopathy. CARDIOVASCULAR: Regular rate and rhythm without murmurs, gallops, or rubs. RESPIRATORY: Breath sounds equal bilaterally. No accessory muscle use. + subq emphysema R&l chest wall both shoulders and arms / unchanged + air leak +4, 120cc drainage in 12 hrs GASTROINTESTINAL: Abdomen soft, non-tender, nondistended. MUSCULOSKELETAL: No cyanosis, or edema. BACK: Nontender without obvious deformity. No CVA tenderness. Vital Signs Date Time Temp Pulse Resp B/P (MAP) Pulse Ox O2 Delivery O2 Flow Rate FiO2 01/09/17 11:00 95 Nasal Cannula 20.00 60 Humidified 01/09/17 11:00 86 01/09/17 11:00 98.0 86 16 119/78 (92) 95 01/09/17 08:00 90 High Flow Nasal Cannula 20.00 100 01/09/17 07:00 93 Nasal Cannula 20.00 60 Humidified 01/09/17 07:00 100 01/09/17 07:00 97.8 100 18 130/78 (95) 93 01/09/17 06:45 88 High Flow Nasal Cannula 25.00 60 01/09/17 03:00 74 01/09/17 03:00 98.4 74 20 123/81 (95) 96 01/09/17 03:00 96 Nasal Cannula 20.00 45 Humidified 01/08/17 23:00 98.9 88 21 123/80 (94) 95 01/08/17 23:00 88 01/08/17 23:00 95 Nasal Cannula 20.00 45 Humidified 01/08/17 20:45 95 High Flow Nasal Cannula 20.00 45 01/08/17 19:00 98.6 94 22 111/70 (84) 96 01/08/17 19:00 94 01/08/17 19:00 96 Nasal Cannula 20.00 45 Humidified 01/08/17 18:24 20 01/08/17 16:00 103 01/08/17 15:03 95 Nasal Cannula 20.00 45 01/08/17 15:02 98.3 104 20 114/82 (93) 95 Labs: Laboratory Tests Test 01/09/17 05:04 White Blood Count 14.8 TH/MM3 (4.0-11.0) Red Blood Count 2.62 MIL/MM3 (4.50-5.90) Hemoglobin 8.0 GM/DL (13.0-17.0) Hematocrit 24.3 % (39.0-51.0) Mean Corpuscular Volume 93.0 FL (80.0-100.0) Mean Corpuscular Hemoglobin 30.4 PG (27.0-34.0) Mean Corpuscular Hemoglobin Concent 32.7 % (32.0-36.0) Red Cell Distribution Width 16.6 % (11.6-17.2) Platelet Count 243 TH/MM3 (150-450) Mean Platelet Volume 8.7 FL (7.0-11.0) Neutrophils (%) (Auto) 89.1 % (16.0-70.0) Lymphocytes (%) (Auto) 5.4 % (9.0-44.0) Monocytes (%) (Auto) 4.8 % (0.0-8.0) Eosinophils (%) (Auto) 0.6 % (0.0-4.0) Basophils (%) (Auto) 0.1 % (0.0-2.0) Neutrophils # (Auto) 13.1 TH/MM3 (1.8-7.7) Lymphocytes # (Auto) 0.8 TH/MM3 (1.0-4.8) Monocytes # (Auto) 0.7 TH/MM3 (0-0.9) Eosinophils # (Auto) 0.1 TH/MM3 (0-0.4) Basophils # (Auto) 0.0 TH/MM3 (0-0.2) CBC Comment DIFF FINAL Differential Comment Blood Urea Nitrogen 48 MG/DL (7-18) Creatinine 3.78 MG/DL (0.60-1.30) Random Glucose 120 MG/DL (74-106) Calcium Level 8.4 MG/DL (8.5-10.1) Sodium Level 137 MEQ/L (136-145) Potassium Level 3.5 MEQ/L (3.5-5.1) Chloride Level 97 MEQ/L (98-107) Carbon Dioxide Level 29.8 MEQ/L (21.0-32.0) Anion Gap 10 MEQ/L (5-15) Estimat Glomerular Filtration Rate 17 ML/MIN (>89) Result Diagram: 01/09/17 0504 01/09/17 0504 Telemetry: NSR (1) Pulmonary infiltrate in right lung on chest x-ray Plan: pulm toileting nebs, ezpap OOB ambulate consult PT pain control / DC RADIOGRAPHER CARDIAC CATHETERIZATION/po norco prn path pending keep chest tube to 30cm suction wean high flow as tolerated (2) Pneumonia Plan: post ABX/ ID signed off (3) Right thoracotomy with VATS assist, lysis of adhesions, decortication, pleural biopsies Plan: leave chest tube suction at 30cm wean off high flow 02 per resp pulm toileting nebs ezpap , acapella OOB as tolerated path pending Problem Qualifiers (1) Pneumonia: Qualified Codes: J18.1 - Lobar pneumonia, unspecified organism Marly Heart Jan 09, 2017 14:52
--- NOTE | 2017-01-09 15:02 | HHI.CCPN ---
Subjective Remarks/Hospital Course 01/07: 55 yo male with 6 weeks of fever, SOB, worsening cough On presentation in late November pt was found to have ARF on CKD His renal biopsy revealed severe interstitial fibrosis, tubular atrophy and findings suggestive MPGN, with significant global glomerular sclerosis. He was start on dialysis support MWF. AVF attempted, but failed, he has Permacath On presentation he was found tro have dense RUL PNA on CT His expectoration sputum and BAL were unrevealing His repeat CT showed again dense consolidation persists in the right upper lobe with air bronchograms and air filled cystic spaces. Debris versus possible fungus ball in one of the cystic spaces at the apex which is new. Multi-organism pneumonia suspected. Patient was evaluated by ID and CT surgery consulted for bx. On 12/30 patient underwent right thoracotomy with VATS, lysis of adhesions, decortication, pleural biopsy with cultures and right upper lobe biopsy with cultures under general anesthesia. He did have a chest tube placed during that procedure. He was noted to have a 1+ air leak on 01/01. Over the course of next few days his air leak has worsened. Patient was placed on -10 cm of water pressure today and subsequently underwent hemodialysis. Towards the end of hemodialysis patient developed worsening shortness of breath with O2 sats dropping to the 80s. Patient was placed on 100% nonrebreather facemask and stat chest x-ray revealed small basilar right pneumothorax with chest tube in place and chronic right sided infiltrates with loss of lung volume. Chest tube was placed to -30 cm water pressure with underwater seal and patient was subsequently rapid responded and transferred to CV ICU. Critical care consult was requested by Dr. Walton. I evaluated the patient immediately on his arrival to the ICU at that time he was on 100% nonrebreather facemask with O2 sats in the mid 90s. He appeared to have improved since increasing negative pressure on chest tube. I discussed the case with Dr. Roth at bedside. 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 He was maintaining his blood pressure and oxygen saturation at this time. He has been evaluated by pulmonary medicine and ID during this hospitalization as well. 01/08: Resting in bed this morning breathing appears to be better than yesterday. Remains on high flow nasal cannula this morning at the time of my evaluation however air leak from right chest tube seems to have stopped. 01/09: Resting in bed. Air leak from right chest tube resumed overnight. Remains on high flow O2 FiO2 increased from 40 to 50%, 20 L/m Objective Vital Signs Date Time Temp Pulse Resp B/P (MAP) Pulse Ox O2 Delivery O2 Flow Rate FiO2 01/09/17 11:00 95 Nasal Cannula 20.00 60 Humidified 01/09/17 11:00 86 01/09/17 11:00 98.0 16 119/78 (92) Intake and Output 01/09/17 01/09/17 01/10/17 08:00 16:00 00:00 Intake Total 300 ml Output Total 870 ml 1000 ml Balance -570 ml -1000 ml Result Diagram: 01/09/17 0504 01/09/17 0504 Imaging Last Impressions Chest X-Ray 01/07/17 0000 Signed Impressions: Service Date/Time: Saturday, January 07, 2017 12:59 - CONCLUSION: 1. Stable large bore right-sided chest tube with mild interval enlargement of right basilar pneumothorax in comparison to 01/06 exam but improved in comparison to 01/04 exam. 2. Stable extensive subcutaneous emphysema. 3. Stable extensive cavitary airspace consolidation throughout the right upper and midlung zones. 1. Edenilson Villarreal MD Lung Biopsy CT 12/23/16 0000 Signed Impressions: Service Date/Time: Friday, December 23, 2016 09:37 - CONCLUSION: Uncomplicated CT guided biopsy/aspiration. Broderick Ndiaye MD Chest CT 12/17/16 1715 Signed Impressions: Service Date/Time: Saturday, December 17, 2016 17:51 - CONCLUSION: 1. Dense consolidation persists in the right upper lobe with air bronchograms and air filled cystic spaces. Debris versus possible fungus ball in one of the cystic spaces at the apex which is new. Multi-organism pneumonia suspected. 2. Non-consolidative patchy infiltrate of the right middle and lower lobes not significantly changed. 3. Decreased pleural effusion on the right, now trace. Completely resolved pleural effusion on the left. 4. Previous median sternotomy. Caio Wray MD Upper Extremity Ultrasound 12/04/16 0000 Signed Impressions: Service Date/Time: November 18:26 - CONCLUSION: Venous mapping as delineated above. The cephalic veins are abnormal bilaterally. Caio Villalpando MD Renal Biopsy CT 12/02/16 1350 Signed Impressions: Service Date/Time: Friday, December 02, 2016 08:33 - CONCLUSION: Uncomplicated CT guided biopsy of the right kidney for function. Mustapha Vela Jr., MD Catheter Placement X-Ray 11/28/16 0000 Signed Impressions: Service Date/Time: Monday, November 28, 2016 15:57 - CONCLUSION: Uncomplicated PermaCath placement as above. Mustapha Vela Jr., MD Renal Ultrasound 11/22/16 0000 Signed Impressions: Service Date/Time: Tuesday, November 22, 2016 17:14 - CONCLUSION: Mild pelvocaliectasis right kidney not present previously. Obdulia Garcia MD Objective Remarks Physical Exam GENERAL: This is a well-nourished, well-developed patient laying in bed, not in any acute distress on high flow nasal cannula SKIN: No rashes, ecchymoses or lesions. Cool and dry. HEAD: Atraumatic. Normocephalic. No temporal or scalp tenderness. EYES: Pupils equal round and reactive. Pallor present Extraocular motions intact. No scleral icterus. No injection or drainage. ENT: Nose without bleeding, purulent drainage or septal hematoma. Throat without erythema, tonsillar hypertrophy or exudate. Uvula midline. Airway patent. NECK: Trachea midline. No JVD or lymphadenopathy. CARDIOVASCULAR: Regular rate and rhythm without murmurs, gallops, or rubs. Well- healed sternotomy incision. Dressing over right thoracotomy site, chest tube in place with +ve air leak noted at the time of my evaluation RESPIRATORY: Decreased BS on right. Subcutaneous emphysema over chest wall. Rhonchi over right lung field, left lung field appears clear with no wheezing or crackles. GASTROINTESTINAL: Abdomen soft, non-tender, nondistended. No hepato-splenomegaly , or palpable masses. No guarding. MUSCULOSKELETAL: Extremities without clubbing, cyanosis, or edema. No joint tenderness, effusion, or edema noted. No calf tenderness. NEUROLOGICAL: Awake alert oriented 3, moves all 4 extremities, grossly nonfocal Procedures 11/28/2016 Right Internal Jugular Hemodialysis Catheter Tunneled Placement dual lumen 12/02/2016 Successful right renal biopsy for function. Gelfoam and thrombin utilized. No bleeding on post CT Lung Biopsy 12/23/16. Dialysis 12/24/16. 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 Follow neuro status. Cardiovascular: Watch for hypotension. 2-D echo with normal LV function. Pulmonary: On high flow nasal cannula. Patient may require surgery for possible bronchopleural fistula if respiratory status does not improve or if he keeps having recurrent air leak. Prednisone being tapered by Dr. Cheung. GI/liver: By mouth diet if respiratory status allows. Renal/: On hemodialysis. Nephrology following. Strict intake output, monitor and replete electrolytes, follow BUN creatinine. ID: Has completed course of antibiotics. No evidence of fungus on pathology so far from lung biopsy. Awaiting final results per Dr. Roth. Heme: Has been transfused multiple times during this admission. Transfuse to keep hemoglobin above 7 g percent. Epogen with hemodialysis. Has not had EGD due to poor respiratory status and has been evaluated by GI. Colonoscopy done on 12/18 revealed diverticulosis and internal hemorrhoids with no active bleeding. Endocrine: Watch for hyperglycemia, SSI for glycemic control if needed. Prophylaxis: SCDs, Lovenox Discussed with Dr. Roth, discussed with GRAIN ELEVATOR CLERK. If patient's respiratory status declines may require surgery for right bronchopleural fistula. Mehrdad Mackay MD Jan 09, 2017 15:02
[2017-01-09] MEDS: ENOXAPARIN SODIUM 30 MG/0.3 ML SYRINGE SQ SCH (17:54)
[2017-01-09] MEDS: PANTOPRAZOLE SOD 40 MG DELAYED RELEASE TAB PO SCH (21:25)
[2017-01-10] VITALS (11 sets, daily range): BP systolic 111–125; BP diastolic 74–92; PULSE 80–98; RESP 18–20; TEMP 97.8–98.5; O2SAT 95–99
--- NOTE | 2017-01-10 05:17 | RADRPT ---
EXAM DATE/TIME: 01/10/2017 04:23 [facility] COMPARISON: CHEST SINGLE AP, January 09, 2017, 9:06. INDICATIONS : Shortness of breath, possible pulmonary disease. MEDICAL HISTORY : Chronic obstructive pulmonary disease. Cardiovascular disease. Hypertension. SURGICAL HISTORY : CABG. ENCOUNTER: Subsequent ACUITY: 4 - 6 days PAIN SCORE: 5/10 LOCATION: Bilateral chest FINDINGS: Single portable frontal view of the chest shows no interval change. Consolidation is seen throughout the right lung most pronounced within the upper lobe. A right thoracostomy tube is seen. No pneumotho rax. Subcutaneous emphysema overlies the right shoulder and chest. Left lung is clear. Heart is nette l in size. No effusions. Median sternotomy wires. Right-sided dialysis catheter. CONCLUSION: Unchanged consolidation involving the right lung. No pneumothorax. Mustapha Vela Jr., MD on January 10, 2017 at 5:15 Board Certified Radiologist. This report was verified electronically.
--- NOTE | 2017-01-10 07:31 | HHI.CCPN ---
Subjective Remarks/Hospital Course 01/07: 55 yo male with 6 weeks of fever, SOB, worsening cough On presentation in late November pt was found to have ARF on CKD His renal biopsy revealed severe interstitial fibrosis, tubular atrophy and findings suggestive MPGN, with significant global glomerular sclerosis. He was start on dialysis support MWF. AVF attempted, but failed, he has Permacath On presentation he was found tro have dense RUL PNA on CT His expectoration sputum and BAL were unrevealing His repeat CT showed again dense consolidation persists in the right upper lobe with air bronchograms and air filled cystic spaces. Debris versus possible fungus ball in one of the cystic spaces at the apex which is new. Multi-organism pneumonia suspected. Patient was evaluated by ID and CT surgery consulted for bx. On 12/30 patient underwent right thoracotomy with VATS, lysis of adhesions, decortication, pleural biopsy with cultures and right upper lobe biopsy with cultures under general anesthesia. He did have a chest tube placed during that procedure. He was noted to have a 1+ air leak on 01/01. Over the course of next few days his air leak has worsened. Patient was placed on -10 cm of water pressure today and subsequently underwent hemodialysis. Towards the end of hemodialysis patient developed worsening shortness of breath with O2 sats dropping to the 80s. Patient was placed on 100% nonrebreather facemask and stat chest x-ray revealed small basilar right pneumothorax with chest tube in place and chronic right sided infiltrates with loss of lung volume. Chest tube was placed to -30 cm water pressure with underwater seal and patient was subsequently rapid responded and transferred to CV ICU. Critical care consult was requested by Dr. Walton. I evaluated the patient immediately on his arrival to the ICU at that time he was on 100% nonrebreather facemask with O2 sats in the mid 90s. He appeared to have improved since increasing negative pressure on chest tube. I discussed the case with Dr. Roth at bedside. 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 He was maintaining his blood pressure and oxygen saturation at this time. He has been evaluated by pulmonary medicine and ID during this hospitalization as well. 01/08: Resting in bed this morning breathing appears to be better than yesterday. Remains on high flow nasal cannula this morning at the time of my evaluation however air leak from right chest tube seems to have stopped. 01/09: Resting in bed. Air leak from right chest tube resumed overnight. Remains on high flow O2 FiO2 increased from 40 to 50%, 20 L/m 01/10: 5+ air leak today. subq air persists. patient resting comfortably on 30 LPM 50% fio2 high flow NC. Objective Vital Signs Date Time Temp Pulse Resp B/P (MAP) Pulse Ox O2 Delivery O2 Flow Rate FiO2 01/10/17 03:00 98.1 88 20 123/80 (94) 98 01/10/17 03:00 Nasal Cannula 20.00 60 Intake and Output 01/10/17 01/10/17 01/11/17 08:00 16:00 00:00 Intake Total 240 ml Output Total 914 ml Balance -674 ml Result Diagram: 01/09/17 0504 01/09/17 0504 Imaging Last Impressions Chest X-Ray 01/07/17 0000 Signed Impressions: Service Date/Time: Saturday, January 07, 2017 12:59 - CONCLUSION: 1. Stable large bore right-sided chest tube with mild interval enlargement of right basilar pneumothorax in comparison to 01/06 exam but improved in comparison to 01/04 exam. 2. Stable extensive subcutaneous emphysema. 3. Stable extensive cavitary airspace consolidation throughout the right upper and midlung zones. 1. Edenilson Villarreal MD Lung Biopsy CT 12/23/16 0000 Signed Impressions: Service Date/Time: Friday, December 23, 2016 09:37 - CONCLUSION: Uncomplicated CT guided biopsy/aspiration. Broderick Ndiaye MD Chest CT 12/17/16 1715 Signed Impressions: Service Date/Time: Saturday, December 17, 2016 17:51 - CONCLUSION: 1. Dense consolidation persists in the right upper lobe with air bronchograms and air filled cystic spaces. Debris versus possible fungus ball in one of the cystic spaces at the apex which is new. Multi-organism pneumonia suspected. 2. Non-consolidative patchy infiltrate of the right middle and lower lobes not significantly changed. 3. Decreased pleural effusion on the right, now trace. Completely resolved pleural effusion on the left. 4. Previous median sternotomy. Caio Wray MD Upper Extremity Ultrasound 12/04/16 0000 Signed Impressions: Service Date/Time: November 18:26 - CONCLUSION: Venous mapping as delineated above. The cephalic veins are abnormal bilaterally. Caio Villalpando MD Renal Biopsy CT 12/02/16 1350 Signed Impressions: Service Date/Time: Friday, December 02, 2016 08:33 - CONCLUSION: Uncomplicated CT guided biopsy of the right kidney for function. Mustapha Vela Jr., MD Catheter Placement X-Ray 11/28/16 0000 Signed Impressions: Service Date/Time: Monday, November 28, 2016 15:57 - CONCLUSION: Uncomplicated PermaCath placement as above. Mustapha Vela Jr., MD Renal Ultrasound 11/22/16 0000 Signed Impressions: Service Date/Time: Tuesday, November 22, 2016 17:14 - CONCLUSION: Mild pelvocaliectasis right kidney not present previously. Obdulia Garcia MD Objective Remarks Physical Exam GENERAL: cachectic appearing middle-aged male, lying in bed, resting. on high flow nasal cannula SKIN: No rashes, ecchymoses or lesions. Cool and dry. HEAD: Atraumatic. Normocephalic. No temporal or scalp tenderness. EYES: Pupils equal round and reactive. Pallor present. No scleral icterus. No injection or drainage. ENT: Nose without bleeding, purulent drainage or septal hematoma. Airway patent. NECK: Trachea midline. No JVD CARDIOVASCULAR: Regular rate and rhythm. Well-healed sternotomy incision. Dressing over right thoracotomy site, chest tube in place with 5+ air leak RESPIRATORY: Decreased BS on right. Subcutaneous emphysema over chest wall. Rhonchi over right lung field, left lung field appears clear with no wheezing or crackles. GASTROINTESTINAL: Abdomen soft, non-tender, nondistended. No guarding. MUSCULOSKELETAL: Extremities without clubbing, cyanosis, or edema. NEUROLOGICAL: resting comfortably but arousable. no focal deficits. Procedures 11/28/2016 Right Internal Jugular Hemodialysis Catheter Tunneled Placement dual lumen 12/02/2016 Successful right renal biopsy for function. Gelfoam and thrombin utilized. No bleeding on post CT Lung Biopsy 12/23/16. Dialysis 12/24/16. 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 Follow neuro status. Cardiovascular: Watch for hypotension. 2-D echo with normal LV function. Pulmonary: On high flow nasal cannula. Patient may require surgery for possible bronchopleural fistula if respiratory status does not improve. Prednisone being tapered by Dr. Cheung. GI/liver: By mouth diet if respiratory status allows. Renal/: On hemodialysis. Nephrology following. Strict intake output, monitor and replete electrolytes, follow BUN creatinine. ID: Has completed course of antibiotics. No evidence of fungus on pathology so far from lung biopsy. Awaiting final results per Dr. Roth. Heme: Has been transfused multiple times during this admission. Transfuse to keep hemoglobin above 7 g percent. Epogen with hemodialysis. Has not had EGD due to poor respiratory status and has been evaluated by GI. Colonoscopy done on 12/18 revealed diverticulosis and internal hemorrhoids with no active bleeding. Endocrine: Watch for hyperglycemia, SSI for glycemic control if needed. Prophylaxis: SCDs, Lovenox Discussed with Dr. Roth, discussed with SPECIAL EVENT ASSISTANT. If patient's respiratory status declines may require surgery for right bronchopleural fistula. Bassam Hogan MD Jan 10, 2017 07:31
[2017-01-10] MEDS: SEVELAMER CARBONATE 800 MG TAB PO SCH ×3 (08:12→17:25)
[2017-01-10] MEDS: RESP: BUDESONIDE 0.5 MG/2 ML NEB NEB SCH ×2 (08:38→20:26)
[2017-01-10] MEDS: LACTOBACILLUS ACIDOPHILUS TAB PO SCH ×2 (08:51→22:06)
[2017-01-10] MEDS: ENOXAPARIN SODIUM 30 MG/0.3 ML SYRINGE SQ SCH (08:51)
[2017-01-10] MEDS: DOCUSATE SODIUM 100 MG CAP PO SCH ×2 (08:51→21:00)
[2017-01-10] MEDS: CHOLECALCIFEROL (VIT D3) 1000 UNIT TAB PO SCH (08:51)
[2017-01-10] MEDS: predniSONE 20 MG TAB PO SCH ×2 (08:51→22:06)
[2017-01-10] MEDS: SODIUM CHLORIDE 0.9% FLUSH 5 ML FLUSH IV FLUSH SCH ×2 (08:52→21:00)
[2017-01-10] MEDS: SODIUM CHLORIDE 0.9% FLUSH 5 ML FLUSH IV FLUSH PRN (08:52)
[2017-01-10] MEDS: SODIUM CHLORIDE 0.9% FLUSH 10 ML FLUSH IV FLUSH PRN ×2 (08:52→22:07)
[2017-01-10] MEDS: HYDROCORTISONE ACETATE 25 MG SUPP RECTAL SCH ×2 (08:53→21:00)
[2017-01-10] MEDS: POLYETHYLENE GLYCOL 17 GM PKG PO SCH (08:53)
[2017-01-10] MEDS: ACETAMINOPHEN/HYDROcodone 325 MG/5 MG TAB PO PRN ×2 (08:57→19:25)
[2017-01-10 09:30] LABS: HEMATOCRIT 27.6 % (39.0-51.0); MEAN CELL VOLUME 93.3 FL (80.0-100.0); MEAN CORPUSCULAR HGB CONC 32.2 % (32.0-36.0); PLATELET COUNT 285 TH/MM3 (150-450); RED BLOOD COUNT 2.95 MIL/MM3 (4.50-5.90); RED CELL DISTRIBUTION WIDTH 16.5 % (11.6-17.2); REVIEW FLAG FINAL; WHITE BLOOD COUNT 16.8 TH/MM3 (4.0-11.0)
[2017-01-10 10:00] LABS: BICARBONATE 29.6 MEQ/L (21.0-32.0)
--- NOTE | 2017-01-10 10:35 | HHI.NPPN ---
Subjective General Problems: Anemia Renal Failure: Acute Additional Remarks Patient is alert, no SOB, feeling better. Review of Systems General Constitutional: Fatigue Respiratory Lungs: Cough, Sputum Musculoskeletal MS: Pain/Stiffness Objective Data Data Vital Signs Date Time Temp Pulse Resp B/P (MAP) Pulse Ox O2 Delivery O2 Flow Rate FiO2 01/10/17 09:59 20 01/10/17 08:38 95 High Flow Nasal Cannula 20.00 50 01/10/17 07:50 98.1 82 18 125/92 (103) 99 01/10/17 07:46 82 01/10/17 07:44 99 Nasal Cannula 20.00 60 01/10/17 03:00 98.1 88 20 123/80 (94) 98 01/10/17 03:00 80 01/10/17 03:00 97 Nasal Cannula 20.00 60 01/09/17 23:00 80 01/09/17 23:00 97 Nasal Cannula 20.00 60 01/09/17 23:00 98.7 91 20 119/76 (90) 97 01/09/17 21:03 97 High Flow Nasal Cannula 20.00 55 01/09/17 19:00 80 01/09/17 19:00 98.6 91 20 116/75 (89) 94 01/09/17 19:00 94 Nasal Cannula 20.00 60 01/09/17 15:00 86 01/09/17 15:00 98.2 96 18 114/82 (93) 98 01/09/17 15:00 98 Nasal Cannula 20.00 60 Humidified 01/09/17 13:53 18 01/09/17 12:03 98 High Flow Nasal Cannula 20.00 55 01/09/17 11:00 95 Nasal Cannula 20.00 60 Humidified 01/09/17 11:00 86 01/09/17 11:00 98.0 86 16 119/78 (92) 95 -: 01/10/17 0825 01/10/17 0825 Tubes & Lines: Perma-Cath Tubes & Lines Comment chest tube right. Physical Exam General Appearance: No Acute Distress, Comfortable, Pale, Malnourished Eyes Eye Exam: Pupils Equal, Pupils Reactive Throat Throat Exam: Oral Mucosa Calypso & Moist Neck Neck Exam: Neck Supple Pulmonary Resp Exam: No Distress, Crackles, Rhonchi, Decreased Bases Cardiology CV Exam: Regular, Normal Sinus Rhythm, Good Perfusion Gastrointestinal/Abdomen GI Exam: Soft, Non-Tender, Bowel Sounds Present, Positive Bowel Movement Musculoskeletal MS Exam: Joints Intact, Normal Gait, Normal Tone, Atrophy Integumentary Skin Exam: Clear, Warm, Dry, Intact Extremeties Extremities Exam: No Edema Neurologic Neuro Exam: Alert, Awake, Oriented Psychiatric Psych Exam: Appropriate Responses Assessment/Plan Discussed Condition With: Patient Assessment Summary: SEJAL/Acute Renal Failure, Anemia of CKD Electrolyte Assessment: Metabolic Acidosis Problem List: (1) Chronic kidney disease, stage 5 ICD Codes: N18.5 - Chronic kidney disease, stage 5 Status: Chronic Plan: Patient likely has reached ESRD. s/p renal biopsy this admission. He does make quite a bit of urine. Continue dialysis support MWF. Continue nutritional support with meals; on high protein diet AVF creation failed. He will need permanent HD access placed. Currently unstable for surgery. Will consult vascular when he is more stable. HD will be on Thursday. (2) Pneumonia ICD Codes: J18.9 - Pneumonia, unspecified organism Status: Acute Plan: Pulmonary and CTS surgery are following, s/p bronchoscopy and thoracotomy with decortication Biopsy negative for pulmonary aspergillus fungal ball in right lung s/p right thoracotomy 12/30 with chest tube placement; had air leak that CTS is managing with pulmonary Concerns for bronchopleural fistula noted. May need additional surgery. Serial chest xrays have been taken. (3) Hypokalemia ICD Codes: E87.6 - Hypokalemia Status: Resolved Plan: corrected; thought to have a proximal renal tubular disorder Follow labs, he is off daily replacement (4) Hypocalcemia ICD Codes: E83.51 - Hypocalcemia Plan: Continue to treat hyperphosphatemia, on Sevelamer with meals. (5) Anemia ICD Codes: D64.9 - Anemia Status: Chronic Plan: Transfuse as needed, Most recent 12/30 Continue high dose of Epogen with dialysis. Check CBC intermittently; goal Hb > 7 (6) Acidosis ICD Codes: E87.2 - Acidosis Status: Acute Plan: corrected with dialysis , monitor (7) GI bleed ICD Codes: K92.2 - Gastrointestinal hemorrhage, unspecified Status: Acute Plan: GI has signed off; s/p EGD/colonoscopy may need capsule endoscopy outpatient Problem Qualifiers (1) Pneumonia: Qualified Codes: J18.1 - Lobar pneumonia, unspecified organism (2) Anemia: Qualified Codes: N18.5 - Chronic kidney disease, stage 5; D63.1 - Anemia in chronic kidney disease (3) GI bleed: Ely Coyne MD Jan 10, 2017 10:35
[2017-01-10] MEDS: FERROUS SULFATE 325 MG (65 MG ELEMENTAL IRON) TAB PO SCH ×2 (12:09→17:25)
[2017-01-10] MEDS: ASCORBIC ACID 500 MG TAB PO SCH ×2 (12:09→17:25)
--- NOTE | 2017-01-10 20:06 | HHI.PR ---
Subjective Remarks ALERT UP IN CHAIR NO DISTRESS Objective Vital Signs Date Time Temp Pulse Resp B/P (MAP) Pulse Ox O2 Delivery O2 Flow Rate FiO2 01/10/17 15:09 99 Nasal Cannula 20.00 60 01/10/17 15:08 93 01/10/17 15:07 97.8 93 20 114/78 (90) 96 01/10/17 11:09 98.2 91 20 117/79 (92) 99 01/10/17 11:08 91 01/10/17 11:07 99 Nasal Cannula 20.00 60 01/10/17 09:59 20 01/10/17 08:38 95 High Flow Nasal Cannula 20.00 50 01/10/17 07:50 98.1 82 18 125/92 (103) 99 01/10/17 07:46 82 01/10/17 07:44 99 Nasal Cannula 20.00 60 01/10/17 03:00 98.1 88 20 123/80 (94) 98 01/10/17 03:00 80 01/10/17 03:00 97 Nasal Cannula 20.00 60 01/09/17 23:00 80 01/09/17 23:00 97 Nasal Cannula 20.00 60 01/09/17 23:00 98.7 91 20 119/76 (90) 97 01/09/17 21:03 97 High Flow Nasal Cannula 20.00 55 I/O 01/09/17 01/09/17 01/09/17 01/10/17 01/10/17 01/10/17 06:59 14:59 22:59 06:59 14:59 22:59 Intake Total 300 ml 320 ml 240 ml 2000 ml Output Total 870 ml 1000 ml 440 ml 914 ml 690 ml Balance -570 ml -1000 ml -120 ml -674 ml 1310 ml Intake Oral 300 ml 320 ml 240 ml 1400 ml Oral Supplement 600 ml IV Total 0 ml 0 ml Output Urine Total 750 ml 320 ml 800 ml 560 ml Chest Tube Drainage Total 120 ml 120 ml 114 ml 130 ml Hemodialysis 1000 ml # Bowel Movements 0 0 1 Result Diagram: 01/10/1782401/10/17824 Objective Remarks GENERAL: SKIN: Warm and dry. HEAD: Atraumatic. Normocephalic. EYES: Pupils equal and round. No scleral icterus. No injection or drainage. ENT: No nasal bleeding or discharge. Mucous membranes pink and moist. NECK: Trachea midline. No JVD. CARDIOVASCULAR: Regular rate and rhythm. RESPIRATORY: No accessory muscle use. Clear to auscultation. Breath sounds equal bilaterally. GASTROINTESTINAL: Abdomen soft, non-tender, nondistended. Hepatic and splenic margins not palpable. MUSCULOSKELETAL: Extremities without clubbing, cyanosis, or edema. No obvious deformities. NEUROLOGICAL: Awake and alert. No obvious cranial nerve deficits. Motor grossly within normal limits. Five out of 5 muscle strength in the arms and legs. Normal speech. PSYCHIATRIC: Appropriate mood and affect; insight and judgment normal. Assessment and Plan Assessment and Plan PNA S/P CT PLACEMENT PLAN O2 ANTIBX REMOVE CT WHEN POSSIBLE Zoey Greer MD Jan 10, 2017 20:06
[2017-01-10] MEDS: PANTOPRAZOLE SOD 40 MG DELAYED RELEASE TAB PO SCH (22:06)
[2017-01-11] VITALS (10 sets, daily range): BP systolic 106–130; BP diastolic 73–82; PULSE 86–98; RESP 20–21; TEMP 98.2–99.2; O2SAT 95–98
[2017-01-11 06:09] LABS: HEMATOCRIT 26.7 % (39.0-51.0); MEAN CELL VOLUME 92.4 FL (80.0-100.0); MEAN CORPUSCULAR HEMOGLOBIN 29.6 PG (27.0-34.0); PLATELET COUNT 288 TH/MM3 (150-450); RED BLOOD COUNT 2.89 MIL/MM3 (4.50-5.90); RED CELL DISTRIBUTION WIDTH 16.5 % (11.6-17.2); REVIEW FLAG FINAL; WHITE BLOOD COUNT 16.6 TH/MM3 (4.0-11.0)
[2017-01-11 06:31] LABS: BICARBONATE 28.4 MEQ/L (21.0-32.0)
[2017-01-11] MEDS: SEVELAMER CARBONATE 800 MG TAB PO SCH ×3 (08:13→16:19)
[2017-01-11] MEDS: RESP: BUDESONIDE 0.5 MG/2 ML NEB NEB SCH ×2 (08:14→20:29)
[2017-01-11] MEDS: CHOLECALCIFEROL (VIT D3) 1000 UNIT TAB PO SCH (08:35)
[2017-01-11] MEDS: predniSONE 20 MG TAB PO SCH ×2 (08:35→20:47)
[2017-01-11] MEDS: SODIUM CHLORIDE 0.9% FLUSH 10 ML FLUSH IV FLUSH PRN (08:35)
[2017-01-11] MEDS: DOCUSATE SODIUM 100 MG CAP PO SCH ×2 (08:35→20:49)
[2017-01-11] MEDS: LACTOBACILLUS ACIDOPHILUS TAB PO SCH ×2 (08:35→20:47)
[2017-01-11] MEDS: HYDROCORTISONE ACETATE 25 MG SUPP RECTAL SCH ×2 (09:00→20:49)
[2017-01-11] MEDS: POLYETHYLENE GLYCOL 17 GM PKG PO SCH (09:00)
[2017-01-11] MEDS: SODIUM CHLORIDE 0.9% FLUSH 5 ML FLUSH IV FLUSH SCH ×2 (09:00→20:47)
[2017-01-11] MEDS: ENOXAPARIN SODIUM 30 MG/0.3 ML SYRINGE SQ SCH (09:00)
--- NOTE | 2017-01-11 10:52 | PD.CAR.PN ---
CVT Progress Note Subjective/Hospital Course: ct guided lung bx / no fungal elements Dr Claire Ltot requesting re-eval for possible thoractomy discussed with pt right thoracotomy for pulmonary resection Dr Roth will discuss further with pt on Thursday tentatively scheduled for case 12/29 Dr Roth discussed surgery / risks / procedure with pt / he ia agreeable to proceed for surgery in am 12/30 Right thoracotomy with VATS assist, lysis of adhesions, decortication, pleural biopsies and cultures, right upper lobe biopsies and cultures Right upper lobe resection was considered, but not technically feasible due to the dense consolidation, inflammation, and frozen hilum associated. 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, CLINICAL INFORMATICS SPECIALIST dosing increase with breakthrough fentanly IV will need PT/ OOB ambulate pulm toileting path cultures pending 12/31 path and cultures pending 01/01 path pending no growth in cultures to date pain control improved, has ONQ pump and morphine CLINICAL INFORMATICS SPECIALIST on GI motility meds ambulate/ OOB + 1 air leak in chest tube 01/02 now with +4 air leak + subq emphysema to right chest ONQ pump dc dressing removed / right chest tube site eval, no air air out of skin, reinforced with vaseline gauze no change in air leak remains on 01/03/17 Continues with impressive air leak and SQ emphysema. Denies dyspnea and comfortable 01/04/17 Persistent large air leak. No complaints otherwise 01/05/17 c/o pain related to chest tube site and pleuritic irritation. air leak a little better this morning. PATH still pending from biopsies submitted at the time of surgery last week. 01/06/17 still has extensive air leak ct to 20cm suction + sub q emphysema bilateral anterior chest wall and shoulders path pending will dc flatbed stitcher MS, prn norco for pain / breakthrough fentanly 10/ persistent air leak +4 subq emphysema improving to chest still get very SOB with any exertion receiving dialysis at this time pain controlled 10/5 pt remains in CVICU was on high flow last pm 25liters no further air leak noted in chest tube chamber, less subq emphysema noted pt encouraged to ask for pain meds to improve pulm toileting chest xray, no PTX path pending , will get pt OOB to chair appreciate CCM 10/6 pt now with recurrent air leak + 4-5, remains at 30cm suction cxr noted, + subq emphysema , some consolidation right perihilar region wean high flow 02 slowly , now at 20 liters / 60% fi02 OOB to chair as tolerated pain control, s/p dialysis today 01/11 Persistent air-leak Vitals stable Continue CT. Dr. Roth to determine further therapy Objective: Vital Signs Date Time Temp Pulse Resp B/P (MAP) Pulse Ox O2 Delivery O2 Flow Rate FiO2 01/11/17 08:15 98 High Flow Nasal Cannula 20.00 45 01/11/17 07:38 98.5 87 21 126/80 (95) 97 01/11/17 07:38 87 01/11/17 07:36 97 Nasal Cannula 20.00 50 01/11/17 03:00 98.5 87 20 106/73 (84) 97 01/11/17 03:00 97 Nasal Cannula 20.00 50 01/11/17 03:00 90 01/10/17 23:00 97 Nasal Cannula 20.00 60 01/10/17 23:00 98.5 94 20 111/74 (86) 98 01/10/17 23:00 92 01/10/17 21:46 18 01/10/17 20:27 98 High Flow Nasal Cannula 20.00 50 01/10/17 19:00 97 Nasal Cannula 20.00 60 01/10/17 19:00 93 01/10/17 19:00 98.0 98 20 112/87 (95) 98 01/10/17 15:09 99 Nasal Cannula 20.00 60 01/10/17 15:08 93 01/10/17 15:07 97.8 93 20 114/78 (90) 96 01/10/17 11:09 98.2 91 20 117/79 (92) 99 01/10/17 11:08 91 01/10/17 11:07 99 Nasal Cannula 20.00 60 Labs: Laboratory Tests Test 01/11/17 05:03 White Blood Count 16.6 TH/MM3 (4.0-11.0) Red Blood Count 2.89 MIL/MM3 (4.50-5.90) Hemoglobin 8.5 GM/DL (13.0-17.0) Hematocrit 26.7 % (39.0-51.0) Mean Corpuscular Volume 92.4 FL (80.0-100.0) Mean Corpuscular Hemoglobin 29.6 PG (27.0-34.0) Mean Corpuscular Hemoglobin Concent 32.0 % (32.0-36.0) Red Cell Distribution Width 16.5 % (11.6-17.2) Platelet Count 288 TH/MM3 (150-450) Mean Platelet Volume 8.6 FL (7.0-11.0) Blood Urea Nitrogen 49 MG/DL (7-18) Creatinine 3.88 MG/DL (0.60-1.30) Random Glucose 101 MG/DL (74-106) Calcium Level 8.8 MG/DL (8.5-10.1) Sodium Level 138 MEQ/L (136-145) Potassium Level 4.0 MEQ/L (3.5-5.1) Chloride Level 100 MEQ/L (98-107) Carbon Dioxide Level 28.4 MEQ/L (21.0-32.0) Anion Gap 10 MEQ/L (5-15) Estimat Glomerular Filtration Rate 16 ML/MIN (>89) Result Diagram: 01/11/17 0503 01/11/17 0503 (1) Pulmonary infiltrate in right lung on chest x-ray Plan: pulm toileting nebs, ezpap OOB ambulate consult PT pain control / DC CLINICAL INFORMATICS SPECIALIST/po norco prn path pending keep chest tube to 30cm suction wean high flow as tolerated (2) Pneumonia Plan: post ABX/ ID signed off (3) Right thoracotomy with VATS assist, lysis of adhesions, decortication, pleural biopsies Plan: leave chest tube suction at 30cm wean off high flow 02 per resp pulm toileting nebs ezpap , acapella OOB as tolerated path pending Problem Qualifiers (1) Pneumonia: Qualified Codes: J18.1 - Lobar pneumonia, unspecified organism Darling Chambers MD Jan 11, 2017 10:52
--- NOTE | 2017-01-11 10:54 | HHI.CCPN ---
Subjective Remarks/Hospital Course 01/07: 55 yo male with 6 weeks of fever, SOB, worsening cough On presentation in late November pt was found to have ARF on CKD His renal biopsy revealed severe interstitial fibrosis, tubular atrophy and findings suggestive MPGN, with significant global glomerular sclerosis. He was start on dialysis support MWF. AVF attempted, but failed, he has Permacath On presentation he was found tro have dense RUL PNA on CT His expectoration sputum and BAL were unrevealing His repeat CT showed again dense consolidation persists in the right upper lobe with air bronchograms and air filled cystic spaces. Debris versus possible fungus ball in one of the cystic spaces at the apex which is new. Multi-organism pneumonia suspected. Patient was evaluated by ID and CT surgery consulted for bx. On 12/30 patient underwent right thoracotomy with VATS, lysis of adhesions, decortication, pleural biopsy with cultures and right upper lobe biopsy with cultures under general anesthesia. He did have a chest tube placed during that procedure. He was noted to have a 1+ air leak on 01/01. Over the course of next few days his air leak has worsened. Patient was placed on -10 cm of water pressure today and subsequently underwent hemodialysis. Towards the end of hemodialysis patient developed worsening shortness of breath with O2 sats dropping to the 80s. Patient was placed on 100% nonrebreather facemask and stat chest x-ray revealed small basilar right pneumothorax with chest tube in place and chronic right sided infiltrates with loss of lung volume. Chest tube was placed to -30 cm water pressure with underwater seal and patient was subsequently rapid responded and transferred to CV ICU. Critical care consult was requested by Dr. Walton. I evaluated the patient immediately on his arrival to the ICU at that time he was on 100% nonrebreather facemask with O2 sats in the mid 90s. He appeared to have improved since increasing negative pressure on chest tube. I discussed the case with Dr. Roth at bedside. 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 He was maintaining his blood pressure and oxygen saturation at this time. He has been evaluated by pulmonary medicine and ID during this hospitalization as well. 01/08: Resting in bed this morning breathing appears to be better than yesterday. Remains on high flow nasal cannula this morning at the time of my evaluation however air leak from right chest tube seems to have stopped. 01/09: Resting in bed. Air leak from right chest tube resumed overnight. Remains on high flow O2 FiO2 increased from 40 to 50%, 20 L/m 01/10: 5+ air leak today. subq air persists. patient resting comfortably on 30 LPM 50% fio2 high flow NC. 01/11: no changes. 3+ air leak today. cxr without additional ptx. discussed with ct surgery yesterday, will again talk with surgery about options. down to 45% high flow NC. Objective Vital Signs Date Time Temp Pulse Resp B/P (MAP) Pulse Ox O2 Delivery O2 Flow Rate FiO2 01/11/17 08:15 98 High Flow Nasal Cannula 20.00 45 01/11/17 07:38 98.5 87 21 126/80 (95) Intake and Output 01/11/17 01/11/17 01/12/17 08:00 16:00 00:00 Intake Total 240 ml Output Total 660 ml Balance -420 ml Result Diagram: 01/11/17 0503 01/11/17 0503 Imaging Last Impressions Chest X-Ray 01/07/17 0000 Signed Impressions: Service Date/Time: Saturday, January 07, 2017 12:59 - CONCLUSION: 1. Stable large bore right-sided chest tube with mild interval enlargement of right basilar pneumothorax in comparison to 01/06 exam but improved in comparison to 01/04 exam. 2. Stable extensive subcutaneous emphysema. 3. Stable extensive cavitary airspace consolidation throughout the right upper and midlung zones. 1. Edenilson Villarreal MD Lung Biopsy CT 12/23/16 0000 Signed Impressions: Service Date/Time: Friday, December 23, 2016 09:37 - CONCLUSION: Uncomplicated CT guided biopsy/aspiration. Broderick Ndiaye MD Chest CT 12/17/16 1715 Signed Impressions: Service Date/Time: Saturday, December 17, 2016 17:51 - CONCLUSION: 1. Dense consolidation persists in the right upper lobe with air bronchograms and air filled cystic spaces. Debris versus possible fungus ball in one of the cystic spaces at the apex which is new. Multi-organism pneumonia suspected. 2. Non-consolidative patchy infiltrate of the right middle and lower lobes not significantly changed. 3. Decreased pleural effusion on the right, now trace. Completely resolved pleural effusion on the left. 4. Previous median sternotomy. Caio Wray MD Upper Extremity Ultrasound 12/04/16 0000 Signed Impressions: Service Date/Time: November 18:26 - CONCLUSION: Venous mapping as delineated above. The cephalic veins are abnormal bilaterally. Caio Villalpando MD Renal Biopsy CT 12/02/16 1350 Signed Impressions: Service Date/Time: Friday, December 02, 2016 08:33 - CONCLUSION: Uncomplicated CT guided biopsy of the right kidney for function. Mustapha Vela Jr., MD Catheter Placement X-Ray 11/28/16 0000 Signed Impressions: Service Date/Time: Monday, November 28, 2016 15:57 - CONCLUSION: Uncomplicated PermaCath placement as above. Mustapha Vela Jr., MD Renal Ultrasound 11/22/16 0000 Signed Impressions: Service Date/Time: Tuesday, November 22, 2016 17:14 - CONCLUSION: Mild pelvocaliectasis right kidney not present previously. Obdulia Garcia MD Objective Remarks Physical Exam GENERAL: cachectic appearing middle-aged male, lying in bed, resting. on high flow nasal cannula SKIN: No rashes, ecchymoses or lesions. Cool and dry. HEAD: Atraumatic. Normocephalic. No temporal or scalp tenderness. EYES: Pupils equal round and reactive. Pallor present. No scleral icterus. No injection or drainage. ENT: Nose without bleeding, purulent drainage or septal hematoma. Airway patent. NECK: Trachea midline. No JVD CARDIOVASCULAR: Regular rate and rhythm. Well-healed sternotomy incision. Dressing over right thoracotomy site, chest tube in place with 3+ air leak RESPIRATORY: Decreased BS on right. Subcutaneous emphysema over chest wall. Rhonchi over right lung field, left lung field appears clear with no wheezing or crackles. GASTROINTESTINAL: Abdomen soft, non-tender, nondistended. No guarding. MUSCULOSKELETAL: Extremities without clubbing, cyanosis, or edema. NEUROLOGICAL: resting comfortably but arousable. no focal deficits. Procedures 11/28/2016 Right Internal Jugular Hemodialysis Catheter Tunneled Placement dual lumen 12/02/2016 Successful right renal biopsy for function. Gelfoam and thrombin utilized. No bleeding on post CT Lung Biopsy 12/23/16. Dialysis 12/24/16. 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 Follow neuro status. Cardiovascular: Watch for hypotension. 2-D echo with normal LV function. Pulmonary: On high flow nasal cannula. Patient may require surgery for bronchopleural fistula if respiratory status does not improve. Prednisone being tapered by Dr. Cheung. GI/liver: By mouth diet if respiratory status allows. Renal/: On hemodialysis. Nephrology following. Strict intake output, monitor and replete electrolytes, follow BUN creatinine. ID: Has completed course of antibiotics. No evidence of fungus on pathology so far from lung biopsy. Awaiting final results per Dr. Roth. Heme: Has been transfused multiple times during this admission. Transfuse to keep hemoglobin above 7 g percent. Epogen with hemodialysis. Has not had EGD due to poor respiratory status and has been evaluated by GI. Colonoscopy done on 12/18 revealed diverticulosis and internal hemorrhoids with no active bleeding. Endocrine: Watch for hyperglycemia, SSI for glycemic control if needed. Prophylaxis: SCDs, Lovenox Discussed with Dr. Roth, discussed with [employer]. If patient's respiratory status declines may require surgery for right bronchopleural fistula. Bassam Hogan MD Jan 11, 2017 10:54
[2017-01-11] MEDS: ACETAMINOPHEN/HYDROcodone 325 MG/5 MG TAB PO PRN ×2 (12:05→20:49)
[2017-01-11] MEDS: ASCORBIC ACID 500 MG TAB PO SCH ×2 (12:05→16:19)
[2017-01-11] MEDS: FERROUS SULFATE 325 MG (65 MG ELEMENTAL IRON) TAB PO SCH ×2 (12:05→16:19)
--- NOTE | 2017-01-11 16:08 | HHI.PR ---
Subjective Remarks ALERT UP IN CHAIR NO DISTRESS CT , +LEAK Objective Vital Signs Date Time Temp Pulse Resp B/P (MAP) Pulse Ox O2 Delivery O2 Flow Rate FiO2 01/11/17 15:09 97 Nasal Cannula 30.00 45 01/11/17 15:08 86 01/11/17 15:07 98.2 86 21 130/82 (98) 97 01/11/17 13:01 21 01/11/17 11:03 98 01/11/17 11:03 97 Nasal Cannula 30.00 45 01/11/17 11:02 98.6 98 21 112/77 (89) 97 01/11/17 08:15 98 High Flow Nasal Cannula 20.00 45 01/11/17 07:38 98.5 87 21 126/80 (95) 97 01/11/17 07:38 87 01/11/17 07:36 97 Nasal Cannula 20.00 50 01/11/17 03:00 98.5 87 20 106/73 (84) 97 01/11/17 03:00 97 Nasal Cannula 20.00 50 01/11/17 03:00 90 01/10/17 23:00 97 Nasal Cannula 20.00 60 01/10/17 23:00 98.5 94 20 111/74 (86) 98 01/10/17 23:00 92 01/10/17 21:46 18 01/10/17 20:27 98 High Flow Nasal Cannula 20.00 50 01/10/17 19:00 97 Nasal Cannula 20.00 60 01/10/17 19:00 93 01/10/17 19:00 98.0 98 20 112/87 (95) 98 I/O 01/10/17 01/10/17 01/10/17 01/11/17 01/11/17 01/11/17 07:00 15:00 23:00 07:00 15:00 23:00 Intake Total 240 ml 2000 ml 240 ml Output Total 914 ml 690 ml 660 ml Balance -674 ml 1310 ml -420 ml Intake Oral 240 ml 1400 ml 240 ml Oral Supplement 600 ml IV Total 0 ml 0 ml Output Urine Total 800 ml 560 ml 500 ml Chest Tube Drainage Total 114 ml 130 ml 160 ml # Bowel Movements 0 1 0 Result Diagram: 01/11/1750201/11/17 050 Objective Remarks GENERAL: SKIN: Warm and dry. HEAD: Atraumatic. Normocephalic. EYES: Pupils equal and round. No scleral icterus. No injection or drainage. ENT: No nasal bleeding or discharge. Mucous membranes pink and moist. NECK: Trachea midline. No JVD. CARDIOVASCULAR: Regular rate and rhythm. RESPIRATORY: No accessory muscle use. Clear to auscultation. Breath sounds equal bilaterally. GASTROINTESTINAL: Abdomen soft, non-tender, nondistended. Hepatic and splenic margins not palpable. MUSCULOSKELETAL: Extremities without clubbing, cyanosis, or edema. No obvious deformities. NEUROLOGICAL: Awake and alert. No obvious cranial nerve deficits. Motor grossly within normal limits. Five out of 5 muscle strength in the arms and legs. Normal speech. PSYCHIATRIC: Appropriate mood and affect; insight and judgment normal. Assessment and Plan Assessment and Plan PNA S/P CT PLACEMENT STILL WITH LEAK PLAN O2 ANTIBX REMOVE CT WHEN POSSIBLE Zoey Greer MD Jan 11, 2017 16:08
[2017-01-11] MEDS: PANTOPRAZOLE SOD 40 MG DELAYED RELEASE TAB PO SCH (20:47)
[2017-01-12] VITALS (8 sets, daily range): BP systolic 101–133; BP diastolic 73–97; PULSE 80–101; RESP 16–20; TEMP 97.1–99; O2SAT 94–97
[2017-01-12 06:00] LABS: HEMATOCRIT 26.6 % (39.0-51.0); MEAN CELL VOLUME 93.5 FL (80.0-100.0); MEAN CORPUSCULAR HEMOGLOBIN 30.1 PG (27.0-34.0); MEAN CORPUSCULAR HGB CONC 32.2 % (32.0-36.0); PLATELET COUNT 286 TH/MM3 (150-450); RED BLOOD COUNT 2.85 MIL/MM3 (4.50-5.90); REVIEW FLAG FINAL; WHITE BLOOD COUNT 20.2 TH/MM3 (4.0-11.0)
[2017-01-12 06:27] LABS: BICARBONATE 27.1 MEQ/L (21.0-32.0); POTASSIUM 4.4 MEQ/L (3.5-5.1)
[2017-01-12] MEDS: SEVELAMER CARBONATE 800 MG TAB PO SCH ×3 (08:00→12:57)
[2017-01-12] MEDS: RESP: BUDESONIDE 0.5 MG/2 ML NEB NEB SCH ×2 (08:36→20:52)
[2017-01-12] MEDS: ALBUMIN HUMAN 25% 25 GM/100 ML BAGP IV PRN (08:39)
--- NOTE | 2017-01-12 08:39 | HHI.NPPN ---
Subjective General Problems: Anemia Renal Failure: Acute Interval History patient was seen during dialysis. He is doing well. Has chest tube. Pain is controlled. On 3K, UF goal is 2 liters, tolerating it well. Review of Systems General Constitutional: Fatigue Respiratory Lungs: Cough, Sputum Musculoskeletal MS: Pain/Stiffness Objective Data Data Vital Signs Date Time Temp Pulse Resp B/P (MAP) Pulse Ox O2 Delivery O2 Flow Rate FiO2 01/12/17 08:00 95 01/12/17 08:00 97 Nasal Cannula 30.00 45 01/12/17 08:00 97.1 95 18 133/81 (98) 97 01/12/17 03:00 99.0 83 20 121/78 (92) 94 01/12/17 03:00 80 01/12/17 03:00 94 Nasal Cannula 30.00 45 01/11/17 23:00 99.2 95 20 118/81 (93) 95 01/11/17 23:00 95 Nasal Cannula 30.00 45 01/11/17 23:00 91 01/11/17 22:53 20 01/11/17 20:31 98 Aerosol Mask 20.00 45 01/11/17 19:00 98.3 96 20 122/80 (94) 97 01/11/17 19:00 90 01/11/17 19:00 97 Nasal Cannula 30.00 45 01/11/17 15:09 97 Nasal Cannula 30.00 45 01/11/17 15:08 86 01/11/17 15:07 98.2 86 21 130/82 (98) 97 01/11/17 11:03 98 01/11/17 11:03 97 Nasal Cannula 30.00 45 01/11/17 11:02 98.6 98 21 112/77 (89) 97 -: 01/12/17 0518 01/12/17 0518 Tubes & Lines: Perma-Cath Tubes & Lines Comment chest tube right. Physical Exam General Appearance: No Acute Distress, Comfortable, Pale, Malnourished Eyes Eye Exam: Pupils Equal, Pupils Reactive Throat Throat Exam: Oral Mucosa New Home & Moist Neck Neck Exam: Neck Supple Pulmonary Resp Exam: No Distress, Crackles, Rhonchi, Decreased Bases Cardiology CV Exam: Regular, Normal Sinus Rhythm, Good Perfusion Gastrointestinal/Abdomen GI Exam: Soft, Non-Tender, Bowel Sounds Present, Positive Bowel Movement Musculoskeletal MS Exam: Joints Intact, Normal Gait, Normal Tone, Atrophy Integumentary Skin Exam: Clear, Warm, Dry, Intact Extremeties Extremities Exam: No Edema Neurologic Neuro Exam: Alert, Awake, Oriented Psychiatric Psych Exam: Appropriate Responses Assessment/Plan Discussed Condition With: Patient Assessment Summary: SEJAL/Acute Renal Failure, Anemia of CKD Electrolyte Assessment: Metabolic Acidosis Problem List: (1) Chronic kidney disease, stage 5 ICD Codes: N18.5 - Chronic kidney disease, stage 5 Status: Chronic Plan: Patient likely has reached ESRD. s/p renal biopsy this admission. He does make quite a bit of urine. Continue dialysis support MWF. Continue nutritional support with meals; on high protein diet AVF creation failed. He will need permanent HD access placed. Currently unstable for surgery. Will consult vascular when he is more stable. HD today as above. (2) Pneumonia ICD Codes: J18.9 - Pneumonia, unspecified organism Status: Acute Plan: Pulmonary and CTS surgery are following, s/p bronchoscopy and thoracotomy with decortication Biopsy negative for pulmonary aspergillus fungal ball in right lung s/p right thoracotomy 12/30 with chest tube placement; had air leak that CTS is managing with pulmonary Concerns for bronchopleural fistula noted. Serial chest xrays have been taken. (3) Hypokalemia ICD Codes: E87.6 - Hypokalemia Status: Resolved Plan: corrected; thought to have a proximal renal tubular disorder Follow labs, he is off daily replacement (4) Hypocalcemia ICD Codes: E83.51 - Hypocalcemia Plan: Continue to treat hyperphosphatemia, on Sevelamer with meals. (5) Anemia ICD Codes: D64.9 - Anemia Status: Chronic Plan: Transfuse as needed, Most recent 12/30 Continue high dose of Epogen with dialysis. Check CBC intermittently; goal Hb > 7 (6) Acidosis ICD Codes: E87.2 - Acidosis Status: Acute Plan: corrected with dialysis , monitor (7) GI bleed ICD Codes: K92.2 - Gastrointestinal hemorrhage, unspecified Status: Acute Plan: GI has signed off; s/p EGD/colonoscopy may need capsule endoscopy outpatient Problem Qualifiers (1) Pneumonia: Qualified Codes: J18.1 - Lobar pneumonia, unspecified organism (2) Anemia: Qualified Codes: N18.5 - Chronic kidney disease, stage 5; D63.1 - Anemia in chronic kidney disease (3) GI bleed: Jim Zuluaga MD Jan 12, 2017 08:39
[2017-01-12] MEDS: EPOETIN ALFA 10,000 UNITS/ML VIAL IV PRN (08:40)
[2017-01-12] MEDS: HEPARIN SODIUM - IV 10,000 UNITS/10 ML VIAL PRN (08:42)
[2017-01-12] MEDS: GENTAMICIN SULFATE (DIALYSIS USE ONLY) 20 MG/2 ML VIAL IV PRN (08:42)
[2017-01-12] MEDS: LACTOBACILLUS ACIDOPHILUS TAB PO SCH ×2 (08:59→21:37)
[2017-01-12] MEDS: CHOLECALCIFEROL (VIT D3) 1000 UNIT TAB PO SCH (08:59)
[2017-01-12] MEDS: POLYETHYLENE GLYCOL 17 GM PKG PO SCH (09:00)
[2017-01-12] MEDS: HYDROCORTISONE ACETATE 25 MG SUPP RECTAL SCH ×2 (09:00→21:00)
[2017-01-12] MEDS: ENOXAPARIN SODIUM 30 MG/0.3 ML SYRINGE SQ SCH (09:00)
[2017-01-12] MEDS: predniSONE 20 MG TAB PO SCH (09:00)
[2017-01-12] MEDS: DOCUSATE SODIUM 100 MG CAP PO SCH ×2 (09:00→21:00)
[2017-01-12] MEDS: SODIUM CHLORIDE 0.9% FLUSH 5 ML FLUSH IV FLUSH SCH ×2 (09:00→21:00)
[2017-01-12] MEDS: FERROUS SULFATE 325 MG (65 MG ELEMENTAL IRON) TAB PO SCH ×2 (12:21→17:00)
[2017-01-12] MEDS: ACETAMINOPHEN/HYDROcodone 325 MG/5 MG TAB PO PRN ×2 (12:21→21:39)
[2017-01-12] MEDS: ASCORBIC ACID 500 MG TAB PO SCH ×2 (12:57→17:00)
--- NOTE | 2017-01-12 13:14 | HHI.PR ---
Subjective Remarks S/P Right Thoracotomy and right Upper lobe biopsies and Decortication. Has a leak from chest tube. Has SOB at Rest . On o2 at 4 L N/C Better today . Has some subcutaneous emphysema. Will go to [facility] for Endo Bronchial valve placement Objective Vital Signs Date Time Temp Pulse Resp B/P (MAP) Pulse Ox O2 Delivery O2 Flow Rate FiO2 01/12/17 11:00 96 Nasal Cannula 30.00 45 01/12/17 11:00 98.4 99 16 129/97 (108) 96 01/12/17 11:00 99 01/12/17 08:37 97 High Flow Nasal Cannula 20.00 45 01/12/17 08:00 95 01/12/17 08:00 97 Nasal Cannula 30.00 45 01/12/17 08:00 97.1 95 18 133/81 (98) 97 01/12/17 03:00 99.0 83 20 121/78 (92) 94 01/12/17 03:00 80 01/12/17 03:00 94 Nasal Cannula 30.00 45 01/11/17 23:00 99.2 95 20 118/81 (93) 95 01/11/17 23:00 95 Nasal Cannula 30.00 45 01/11/17 23:00 91 01/11/17 22:53 20 01/11/17 20:31 98 Aerosol Mask 20.00 45 01/11/17 19:00 98.3 96 20 122/80 (94) 97 01/11/17 19:00 90 01/11/17 19:00 97 Nasal Cannula 30.00 45 01/11/17 15:09 97 Nasal Cannula 30.00 45 01/11/17 15:08 86 01/11/17 15:07 98.2 86 21 130/82 (98) 97 I/O 01/11/17 01/11/17 01/11/17 01/12/17 01/12/17 01/12/17 07:00 15:00 23:00 07:00 15:00 23:00 Intake Total 240 ml 1400 ml 240 ml Output Total 660 ml 700 ml 800 ml 2000 ml Balance -420 ml 700 ml -560 ml -2000 ml Intake Oral 240 ml 1000 ml 240 ml Oral Supplement 400 ml IV Total 0 ml Output Urine Total 500 ml 540 ml 650 ml Chest Tube Drainage Total 160 ml 160 ml 150 ml Hemodialysis 2000 ml # Voids 2 2 # Bowel Movements 0 0 0 Result Diagram: 01/12/1751701/12/17517 Objective Remarks GENERAL: This is a middle-aged averagely built white male who is alert and in No distress . HEAD, EYES, EARS, NOSE, THROAT: Head normocephalic. The pupils are reactive. Throat is clear. NECK: The neck is supple. No bruits. No thyroid enlargement. No lymphadenopathy.Subcutaneous emphysema of chest wall on right . CHEST: Equal movements. wheeze heard over Right chest and occ Crackles. HEART: Heart sounds are regular. S1 and S2. No murmur. ABDOMEN: Abdomen is soft and nontender. No masses EXTREMITIES:No edema. No calf tenderness. NEUROLOGIC: Reflexes are normal. No focal deficits. SKIN: Warm. Assessment and Plan Assessment and Plan IMPRESSION: 1. Extensive right lung pneumonia with hypoxemia. 2. Chronic kidney disease with acute renal failure. 3. COPD with emphysema and chronic bronchitis. 4. History of coronary artery bypass grafting. Plan : 1. Chest tube to wall 20 CM suction 2. O2 4 L. N/C 3. Nebs qid , duoneb 4. IS at bedside qid. 5. CBC,CXR in am 6. Taper Prednisone 15 mg daily. 7. Transfer to [facility] . Alison Wilson MD Jan 12, 2017 13:14
--- NOTE | 2017-01-12 13:16 | HHI.CCPN ---
Subjective Remarks/Hospital Course 01/07: 55 yo male with 6 weeks of fever, SOB, worsening cough On presentation in late November pt was found to have ARF on CKD His renal biopsy revealed severe interstitial fibrosis, tubular atrophy and findings suggestive MPGN, with significant global glomerular sclerosis. He was start on dialysis support MWF. AVF attempted, but failed, he has Permacath On presentation he was found tro have dense RUL PNA on CT His expectoration sputum and BAL were unrevealing His repeat CT showed again dense consolidation persists in the right upper lobe with air bronchograms and air filled cystic spaces. Debris versus possible fungus ball in one of the cystic spaces at the apex which is new. Multi-organism pneumonia suspected. Patient was evaluated by ID and CT surgery consulted for bx. On 12/30 patient underwent right thoracotomy with VATS, lysis of adhesions, decortication, pleural biopsy with cultures and right upper lobe biopsy with cultures under general anesthesia. He did have a chest tube placed during that procedure. He was noted to have a 1+ air leak on 01/01. Over the course of next few days his air leak has worsened. Patient was placed on -10 cm of water pressure today and subsequently underwent hemodialysis. Towards the end of hemodialysis patient developed worsening shortness of breath with O2 sats dropping to the 80s. Patient was placed on 100% nonrebreather facemask and stat chest x-ray revealed small basilar right pneumothorax with chest tube in place and chronic right sided infiltrates with loss of lung volume. Chest tube was placed to -30 cm water pressure with underwater seal and patient was subsequently rapid responded and transferred to CV ICU. Critical care consult was requested by Dr. Walton. I evaluated the patient immediately on his arrival to the ICU at that time he was on 100% nonrebreather facemask with O2 sats in the mid 90s. He appeared to have improved since increasing negative pressure on chest tube. I discussed the case with Dr. Roth at bedside. 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 He was maintaining his blood pressure and oxygen saturation at this time. He has been evaluated by pulmonary medicine and ID during this hospitalization as well. 01/08: Resting in bed this morning breathing appears to be better than yesterday. Remains on high flow nasal cannula this morning at the time of my evaluation however air leak from right chest tube seems to have stopped. 01/09: Resting in bed. Air leak from right chest tube resumed overnight. Remains on high flow O2 FiO2 increased from 40 to 50%, 20 L/m 01/10: 5+ air leak today. subq air persists. patient resting comfortably on 30 LPM 50% fio2 high flow NC. 01/11: no changes. 3+ air leak today. cxr without additional ptx. discussed with ct surgery yesterday, will again talk with surgery about options. down to 45% high flow NC. 01/12: Resting comfortably in bed. On high flow nasal cannula 45% FiO2. 1+ air leak and right chest tube noted. Objective Vital Signs Date Time Temp Pulse Resp B/P (MAP) Pulse Ox O2 Delivery O2 Flow Rate FiO2 01/12/17 11:00 96 Nasal Cannula 30.00 45 01/12/17 11:00 98.4 99 16 129/97 (108) Intake and Output 01/12/17 01/12/17 01/13/17 08:00 16:00 00:00 Intake Total 240 ml Output Total 800 ml 2000 ml Balance -560 ml -2000 ml Result Diagram: 01/12/17 0518 01/12/17 0518 Imaging Last Impressions Chest X-Ray 01/07/17 0000 Signed Impressions: Service Date/Time: Saturday, January 07, 2017 12:59 - CONCLUSION: 1. Stable large bore right-sided chest tube with mild interval enlargement of right basilar pneumothorax in comparison to 01/06 exam but improved in comparison to 01/04 exam. 2. Stable extensive subcutaneous emphysema. 3. Stable extensive cavitary airspace consolidation throughout the right upper and midlung zones. 1. Edenilson Villarreal MD Lung Biopsy CT 12/23/16 0000 Signed Impressions: Service Date/Time: Friday, December 23, 2016 09:37 - CONCLUSION: Uncomplicated CT guided biopsy/aspiration. Broderick Ndiaye MD Chest CT 12/17/16 1715 Signed Impressions: Service Date/Time: Saturday, December 17, 2016 17:51 - CONCLUSION: 1. Dense consolidation persists in the right upper lobe with air bronchograms and air filled cystic spaces. Debris versus possible fungus ball in one of the cystic spaces at the apex which is new. Multi-organism pneumonia suspected. 2. Non-consolidative patchy infiltrate of the right middle and lower lobes not significantly changed. 3. Decreased pleural effusion on the right, now trace. Completely resolved pleural effusion on the left. 4. Previous median sternotomy. Caio Wray MD Upper Extremity Ultrasound 12/04/16 0000 Signed Impressions: Service Date/Time: November 18:26 - CONCLUSION: Venous mapping as delineated above. The cephalic veins are abnormal bilaterally. Caio Villalpando MD Renal Biopsy CT 12/02/16 1350 Signed Impressions: Service Date/Time: Friday, December 02, 2016 08:33 - CONCLUSION: Uncomplicated CT guided biopsy of the right kidney for function. Mustapha Vela Jr., MD Catheter Placement X-Ray 11/28/16 0000 Signed Impressions: Service Date/Time: Monday, November 28, 2016 15:57 - CONCLUSION: Uncomplicated PermaCath placement as above. Mustapha Vela Jr., MD Renal Ultrasound 11/22/16 0000 Signed Impressions: Service Date/Time: Tuesday, November 22, 2016 17:14 - CONCLUSION: Mild pelvocaliectasis right kidney not present previously. Obdulia Garcia MD Objective Remarks Physical Exam GENERAL: cachectic appearing middle-aged male, lying in bed, resting. on high flow nasal cannula SKIN: No rashes, ecchymoses or lesions. Cool and dry. HEAD: Atraumatic. Normocephalic. No temporal or scalp tenderness. EYES: Pupils equal round and reactive. Pallor present. No scleral icterus. No injection or drainage. ENT: Nose without bleeding, purulent drainage or septal hematoma. Airway patent. NECK: Trachea midline. No JVD CARDIOVASCULAR: Regular rate and rhythm. Well-healed sternotomy incision. Dressing over right thoracotomy site, chest tube in place with 1+ air leak RESPIRATORY: Decreased BS on right. Subcutaneous emphysema over chest wall. Rhonchi over right lung field, left lung field appears clear with no wheezing or crackles. GASTROINTESTINAL: Abdomen soft, non-tender, nondistended. No guarding. MUSCULOSKELETAL: Extremities without clubbing, cyanosis, or edema. NEUROLOGICAL: resting comfortably but arousable. no focal deficits. Procedures 11/28/2016 Right Internal Jugular Hemodialysis Catheter Tunneled Placement dual lumen 12/02/2016 Successful right renal biopsy for function. Gelfoam and thrombin utilized. No bleeding on post CT Lung Biopsy 12/23/16. Dialysis 12/24/16. 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 Follow neuro status. Cardiovascular: Watch for hypotension. 2-D echo with normal LV function. Pulmonary: On high flow nasal cannula. Patient may require surgery for bronchopleural fistula if respiratory status does not improve. Prednisone being tapered by Dr. Cheung. GI/liver: By mouth diet if respiratory status allows. Renal/: On hemodialysis. Nephrology following. Strict intake output, monitor and replete electrolytes, follow BUN creatinine. ID: Has completed course of antibiotics. No evidence of fungus on pathology so far from lung biopsy. Awaiting final results per Dr. Roth. Heme: Has been transfused multiple times during this admission. Transfuse to keep hemoglobin above 7 g percent. Epogen with hemodialysis. Has not had EGD due to poor respiratory status and has been evaluated by GI. Colonoscopy done on 12/18 revealed diverticulosis and internal hemorrhoids with no active bleeding. Endocrine: Watch for hyperglycemia, SSI for glycemic control if needed. Prophylaxis: SCDs, Lovenox discussed with RECRUITER SPECIALIST. If patient's respiratory status declines may require surgery for right bronchopleural fistula. Mehrdad Mackay MD Jan 12, 2017 13:16
--- NOTE | 2017-01-12 15:13 | PD.CAR.PN ---
CVT Progress Note Subjective/Hospital Course: ct guided lung bx / no fungal elements Dr Claire Lott requesting re-eval for possible thoractomy discussed with pt right thoracotomy for pulmonary resection Dr Roth will discuss further with pt on Thursday tentatively scheduled for case 12/29 Dr Roth discussed surgery / risks / procedure with pt / he ia agreeable to proceed for surgery in am 12/30 Right thoracotomy with VATS assist, lysis of adhesions, decortication, pleural biopsies and cultures, right upper lobe biopsies and cultures Right upper lobe resection was considered, but not technically feasible due to the dense consolidation, inflammation, and frozen hilum associated. 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 Denies dyspnea and comfortable 01/04/17 Persistent large air leak. No complaints otherwise 01/05/17 c/o pain related to chest tube site and pleuritic irritation. air leak a little better this morning. PATH still pending from biopsies submitted at the time of surgery last week. 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, prn norco for pain / breakthrough fentanly 10/ persistent air leak +4 subq emphysema improving to chest still get very SOB with any exertion receiving dialysis at this time pain controlled 10/5 pt remains in CVICU was on high flow last pm 25liters no further air leak noted in chest tube chamber, less subq emphysema noted pt encouraged to ask for pain meds to improve pulm toileting chest xray, no PTX path pending , will get pt OOB to chair appreciate CCM 10/6 pt now with recurrent air leak + 4-5, remains at 30cm suction cxr noted, + subq emphysema , some consolidation right perihilar region wean high flow 02 slowly , now at 20 liters / 60% fi02 OOB to chair as tolerated pain control, s/p dialysis today 01/11 Persistent air-leak Vitals stable Continue CT. Dr. Roth to determine further therapy 01/12 was still on 45% F102, 30 liters high flow [address] Roth and Dr Mackay recommend transferring pt to tertiary center for broncho fistula closure Pulm accepting Dr Cody Lopez, Hospitalist Dr Palmer await accepting bed at this time will try to wean to 100% NRB to see if pt tolerates OOB today after dialysis Objective: GENERAL: A&O SKIN: Warm and dry. HEAD: Normocephalic. EYES: No scleral icterus. No injection or drainage. NECK: Supple, trachea midline. No JVD or lymphadenopathy. CARDIOVASCULAR: Regular rate and rhythm without murmurs, gallops, or rubs. RESPIRATORY: Breath sounds equal bilaterally. No accessory muscle use. still has 3-5+ air leak at 20cm suction , vaseline gauze dressing to chest GASTROINTESTINAL: Abdomen soft, non-tender, nondistended. MUSCULOSKELETAL: No cyanosis, or edema. BACK: Nontender without obvious deformity. No CVA tenderness. Vital Signs Date Time Temp Pulse Resp B/P (MAP) Pulse Ox O2 Delivery O2 Flow Rate FiO2 01/12/17 13:40 16 01/12/17 11:00 96 Nasal Cannula 30.00 45 01/12/17 11:00 98.4 99 16 129/97 (108) 96 01/12/17 11:00 99 01/12/17 08:37 97 High Flow Nasal Cannula 20.00 45 01/12/17 08:00 95 01/12/17 08:00 97 Nasal Cannula 30.00 45 01/12/17 08:00 97.1 95 18 133/81 (98) 97 01/12/17 03:00 99.0 83 20 121/78 (92) 94 01/12/17 03:00 80 01/12/17 03:00 94 Nasal Cannula 30.00 45 01/11/17 23:00 99.2 95 20 118/81 (93) 95 01/11/17 23:00 95 Nasal Cannula 30.00 45 01/11/17 23:00 91 01/11/17 22:53 20 01/11/17 20:31 98 Aerosol Mask 20.00 45 01/11/17 19:00 98.3 96 20 122/80 (94) 97 01/11/17 19:00 90 01/11/17 19:00 97 Nasal Cannula 30.00 45 01/11/17 15:09 97 Nasal Cannula 30.00 45 01/11/17 15:08 86 Labs: Laboratory Tests Test 01/12/17 05:18 White Blood Count 20.2 TH/MM3 (4.0-11.0) Red Blood Count 2.85 MIL/MM3 (4.50-5.90) Hemoglobin 8.6 GM/DL (13.0-17.0) Hematocrit 26.6 % (39.0-51.0) Mean Corpuscular Volume 93.5 FL (80.0-100.0) Mean Corpuscular Hemoglobin 30.1 PG (27.0-34.0) Mean Corpuscular Hemoglobin Concent 32.2 % (32.0-36.0) Red Cell Distribution Width 17.0 % (11.6-17.2) Platelet Count 286 TH/MM3 (150-450) Mean Platelet Volume 8.9 FL (7.0-11.0) Blood Urea Nitrogen 63 MG/DL (7-18) Creatinine 4.17 MG/DL (0.60-1.30) Random Glucose 112 MG/DL (74-106) Calcium Level 8.9 MG/DL (8.5-10.1) Sodium Level 138 MEQ/L (136-145) Potassium Level 4.4 MEQ/L (3.5-5.1) Chloride Level 102 MEQ/L (98-107) Carbon Dioxide Level 27.1 MEQ/L (21.0-32.0) Anion Gap 9 MEQ/L (5-15) Estimat Glomerular Filtration Rate 15 ML/MIN (>89) Result Diagram: 01/12/1751701/12/1718 Telemetry: NSR (1) Pulmonary infiltrate in right lung on chest x-ray Plan: pulm toileting nebs, ezpap OOB ambulate consult PT path pending keep chest tube to 20cm suction wean high flow as tolerated / to NRB eval to transfer to [facility] (2) Pneumonia Plan: post ABX/ ID signed off (3) Right thoracotomy with VATS assist, lysis of adhesions, decortication, pleural biopsies Plan: path organizing PNA, BOOP bronchiolitis obliterans organizing pneumonia , parenchymal fibrosis Problem Qualifiers (1) Pneumonia: Qualified Codes: J18.1 - Lobar pneumonia, unspecified organism Marly Heart Jan 12, 2017 15:13
[2017-01-12] MEDS: PANTOPRAZOLE SOD 40 MG DELAYED RELEASE TAB PO SCH (21:37)
[2017-01-13] VITALS (21 sets, daily range): BP systolic 103–110; BP diastolic 67–74; PULSE 91–114; RESP 16–20; TEMP 98–98.6; O2SAT 17–100
[2017-01-13 05:20] LABS: HEMATOCRIT 25.7 % (39.0-51.0); MEAN CELL VOLUME 91.9 FL (80.0-100.0); MEAN CORPUSCULAR HEMOGLOBIN 29.7 PG (27.0-34.0); MEAN CORPUSCULAR HGB CONC 32.3 % (32.0-36.0); PLATELET COUNT 301 TH/MM3 (150-450); RED CELL DISTRIBUTION WIDTH 16.3 % (11.6-17.2); REVIEW FLAG FINAL; WHITE BLOOD COUNT 15.4 TH/MM3 (4.0-11.0)
[2017-01-13 05:45] LABS: BICARBONATE 31.4 MEQ/L (21.0-32.0); POTASSIUM 3.8 MEQ/L (3.5-5.1)
[2017-01-13] MEDS: predniSONE 10 MG TAB PO SCH (08:36)
[2017-01-13] MEDS: LACTOBACILLUS ACIDOPHILUS TAB PO SCH ×2 (08:36→21:24)
[2017-01-13] MEDS: SODIUM CHLORIDE 0.9% FLUSH 5 ML FLUSH IV FLUSH SCH ×2 (08:37→21:00)
[2017-01-13] MEDS: CHOLECALCIFEROL (VIT D3) 1000 UNIT TAB PO SCH (08:37)
[2017-01-13] MEDS: SEVELAMER CARBONATE 800 MG TAB PO SCH ×3 (08:37→17:18)
[2017-01-13] MEDS: DOCUSATE SODIUM 100 MG CAP PO SCH ×2 (08:37→21:00)
[2017-01-13] MEDS: HYDROCORTISONE ACETATE 25 MG SUPP RECTAL SCH ×2 (08:38→21:00)
[2017-01-13] MEDS: POLYETHYLENE GLYCOL 17 GM PKG PO SCH (08:38)
[2017-01-13] MEDS: RESP: BUDESONIDE 0.5 MG/2 ML NEB NEB SCH ×2 (08:57→20:44)
[2017-01-13] MEDS: ENOXAPARIN SODIUM 30 MG/0.3 ML SYRINGE SQ SCH (09:00)
--- NOTE | 2017-01-13 10:40 | HHI.NPPN ---
Subjective General Problems: Anemia Renal Failure: Acute Interval History He is to be transferred to [facility] for bronchial fistula repair. He is on high flow O2. Tolerated dialysis yesterday. (Milla Pack) Review of Systems General Constitutional: Fatigue (Milla Pack) Respiratory Lungs: SOB, Cough, Sputum (Milla Pack) Musculoskeletal MS: Pain/Stiffness (Milla Pack) Objective Data Data Vital Signs Date Time Temp Pulse Resp B/P (MAP) Pulse Ox O2 Delivery O2 Flow Rate FiO2 01/13/17 09:00 99 Non-Rebreather 15.00 01/13/17 08:58 94 High Flow Nasal Cannula 20.00 45 01/13/17 07:00 94 01/13/17 07:00 95 Nasal Cannula 30.00 45 01/13/17 07:00 98.6 94 20 107/72 (84) 95 01/13/17 03:00 95 Nasal Cannula 30.00 45 01/13/17 03:00 91 01/13/17 03:00 98.3 91 20 110/74 (86) 95 01/12/17 23:38 18 01/12/17 23:00 98.1 101 20 101/74 (83) 97 01/12/17 23:00 97 Nasal Cannula 30.00 45 01/12/17 23:00 97 01/12/17 20:52 97 High Flow Nasal Cannula 20.00 45 01/12/17 19:00 97 Nasal Cannula 30.00 45 01/12/17 19:00 95 01/12/17 19:00 98.9 96 20 114/77 (89) 97 01/12/17 15:00 98.3 95 16 107/73 (84) 96 01/12/17 15:00 95 01/12/17 15:00 96 Nasal Cannula 30.00 45 01/12/17 11:00 96 Nasal Cannula 30.00 45 01/12/17 11:00 98.4 99 16 129/97 (108) 96 01/12/17 11:00 99 (Milla Pack) -: 01/13/17 0505 01/13/17 0505 Tubes & Lines: Perma-Cath Tubes & Lines Comment chest tube right. (Milla Pack) Physical Exam General Appearance: No Acute Distress, Comfortable, Pale, Malnourished (Milla Pack) Eyes Eye Exam: Pupils Equal, Pupils Reactive (Milla Pack) Throat Throat Exam: Oral Mucosa Marcy & Moist (Milla Pack) Neck Neck Exam: Neck Supple (Milla Pack) Pulmonary Resp Exam: No Distress, Crackles, Rhonchi, Decreased Bases Resp Remarks course right side lung sounds; chest tube right subcutaneous air right arm, right lower abdomen, upper chest wall (Milla PackP) Cardiology CV Exam: Regular, Normal Sinus Rhythm, Good Perfusion (Milla Pack) Gastrointestinal/Abdomen GI Exam: Soft, Non-Tender, Bowel Sounds Present, Positive Bowel Movement (Milla Pack) Musculoskeletal MS Exam: Joints Intact, Normal Gait, Normal Tone, Atrophy (Milla Pack) Integumentary Skin Exam: Clear, Warm, Dry, Intact (Milla Pack) Extremeties Extremities Exam: No Edema (Milla Pack) Neurologic Neuro Exam: Alert, Awake, Oriented (Milla Pack) Psychiatric Psych Exam: Appropriate Responses (Milla Pack) Assessment/Plan Discussed Condition With: Patient Assessment Summary: SEJAL/Acute Renal Failure, Anemia of CKD Electrolyte Assessment: Metabolic Acidosis Problem List: (1) Chronic kidney disease, stage 5 ICD Codes: N18.5 - Chronic kidney disease, stage 5 Status: Chronic Plan: Patient likely has reached ESRD. s/p renal biopsy this admission. He does make quite a bit of urine. Continue dialysis support MWF. 2L UF yesterday. Continue nutritional support with meals; on high protein diet AVF creation failed. He will need permanent HD access placed but too unstable at thist ie. Intermittently obtain metabolic profile (2) Pneumonia ICD Codes: J18.9 - Pneumonia, unspecified organism Status: Resolved Plan: Pulmonary and CTS surgery are following, s/p bronchoscopy and thoracotomy with decortication Biopsy negative for pulmonary aspergillus fungal ball in right lung s/p right thoracotomy 12/30 with chest tube placement; had air leak that CTS is managing with pulmonary Concerns for bronchopleural fistula noted. To be transferred to [facility] for surgery. Serial chest xrays have been taken. He is on high flow oxygen (3) Hypokalemia ICD Codes: E87.6 - Hypokalemia Status: Resolved Plan: corrected; thought to have a proximal renal tubular disorder Follow labs, he is off daily replacement (4) Hypocalcemia ICD Codes: E83.51 - Hypocalcemia Plan: Continue to treat hyperphosphatemia, on Sevelamer with meals. (5) Anemia ICD Codes: D64.9 - Anemia Status: Chronic Plan: Transfuse as needed, Most recent 12/30 Continue high dose of Epogen with dialysis. Check CBC intermittently; goal Hb > 7 (6) Acidosis ICD Codes: E87.2 - Acidosis Status: Acute Plan: corrected with dialysis , monitor (7) GI bleed ICD Codes: K92.2 - Gastrointestinal hemorrhage, unspecified Status: Acute Plan: GI has signed off; s/p EGD/colonoscopy may need capsule endoscopy outpatient (Milla Pack) Plan patient was seen and examined. Agree with above assessment and plan. He may be transferred to [facility] for management of bronchopleural fistula. (Jim Zuluaga MD) Problem Qualifiers (1) Pneumonia: Qualified Codes: J18.1 - Lobar pneumonia, unspecified organism (2) Anemia: Qualified Codes: N18.5 - Chronic kidney disease, stage 5; D63.1 - Anemia in chronic kidney disease (3) GI bleed: Milla Pack Jan 13, 2017 10:40 Jim Zuluaga MD Jan 13, 2017 17:03
--- NOTE | 2017-01-13 11:01 | HHI.CCPN ---
Subjective Remarks/Hospital Course 01/07: 55 yo male with 6 weeks of fever, SOB, worsening cough On presentation in late November pt was found to have ARF on CKD His renal biopsy revealed severe interstitial fibrosis, tubular atrophy and findings suggestive MPGN, with significant global glomerular sclerosis. He was start on dialysis support MWF. AVF attempted, but failed, he has Permacath On presentation he was found tro have dense RUL PNA on CT His expectoration sputum and BAL were unrevealing His repeat CT showed again dense consolidation persists in the right upper lobe with air bronchograms and air filled cystic spaces. Debris versus possible fungus ball in one of the cystic spaces at the apex which is new. Multi-organism pneumonia suspected. Patient was evaluated by ID and CT surgery consulted for bx. On 12/30 patient underwent right thoracotomy with VATS, lysis of adhesions, decortication, pleural biopsy with cultures and right upper lobe biopsy with cultures under general anesthesia. He did have a chest tube placed during that procedure. He was noted to have a 1+ air leak on 01/01. Over the course of next few days his air leak has worsened. Patient was placed on -10 cm of water pressure today and subsequently underwent hemodialysis. Towards the end of hemodialysis patient developed worsening shortness of breath with O2 sats dropping to the 80s. Patient was placed on 100% nonrebreather facemask and stat chest x-ray revealed small basilar right pneumothorax with chest tube in place and chronic right sided infiltrates with loss of lung volume. Chest tube was placed to -30 cm water pressure with underwater seal and patient was subsequently rapid responded and transferred to [facility] ICU. Critical care consult was requested by Dr. Walton. I evaluated the patient immediately on his arrival to the ICU at that time he was on 100% nonrebreather facemask with O2 sats in the mid 90s. He appeared to have improved since increasing negative pressure on chest tube. I discussed the case with Dr. Roth at bedside. 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 He was maintaining his blood pressure and oxygen saturation at this time. He has been evaluated by pulmonary medicine and ID during this hospitalization as well. 01/08: Resting in bed this morning breathing appears to be better than yesterday. Remains on high flow nasal cannula this morning at the time of my evaluation however air leak from right chest tube seems to have stopped. 01/09: Resting in bed. Air leak from right chest tube resumed overnight. Remains on high flow O2 FiO2 increased from 40 to 50%, 20 L/m 01/10: 5+ air leak today. subq air persists. patient resting comfortably on 30 LPM 50% fio2 high flow NC. 01/11: no changes. 3+ air leak today. cxr without additional ptx. discussed with ct surgery yesterday, will again talk with surgery about options. down to 45% high flow NC. 01/12: Resting comfortably in bed. On high flow nasal cannula 45% FiO2. 1+ air leak and right chest tube noted. 01/13: Resting comfortably in bed. Comfortable on nonrebreather facemask. Airleak persists and right chest tube. Can carry on a conversation comfortably. Objective Vital Signs Date Time Temp Pulse Resp B/P (MAP) Pulse Ox O2 Delivery O2 Flow Rate FiO2 01/13/17 09:00 99 Non-Rebreather 15.00 01/13/17 08:58 45 01/13/17 07:00 94 01/13/17 07:00 98.6 20 107/72 (84) Intake and Output 01/13/17 01/13/17 01/14/17 08:00 16:00 00:00 Intake Total 240 ml Output Total 410 ml Balance -170 ml Result Diagram: 01/13/17 0505 01/13/17 0505 Imaging Last Impressions Chest X-Ray 01/07/17 0000 Signed Impressions: Service Date/Time: Saturday, January 07, 2017 12:59 - CONCLUSION: 1. Stable large bore right-sided chest tube with mild interval enlargement of right basilar pneumothorax in comparison to 01/06 exam but improved in comparison to 01/04 exam. 2. Stable extensive subcutaneous emphysema. 3. Stable extensive cavitary airspace consolidation throughout the right upper and midlung zones. 1. Edenilson Villarreal MD Lung Biopsy CT 12/23/16 0000 Signed Impressions: Service Date/Time: Friday, December 23, 2016 09:37 - CONCLUSION: Uncomplicated CT guided biopsy/aspiration. Broderick Ndiaye MD Chest CT 12/17/16 1715 Signed Impressions: Service Date/Time: Saturday, December 17, 2016 17:51 - CONCLUSION: 1. Dense consolidation persists in the right upper lobe with air bronchograms and air filled cystic spaces. Debris versus possible fungus ball in one of the cystic spaces at the apex which is new. Multi-organism pneumonia suspected. 2. Non-consolidative patchy infiltrate of the right middle and lower lobes not significantly changed. 3. Decreased pleural effusion on the right, now trace. Completely resolved pleural effusion on the left. 4. Previous median sternotomy. Caio Wray MD Upper Extremity Ultrasound 12/04/16 0000 Signed Impressions: Service Date/Time: November 18:26 - CONCLUSION: Venous mapping as delineated above. The cephalic veins are abnormal bilaterally. Caio Villalpando MD Renal Biopsy CT 12/02/16 1350 Signed Impressions: Service Date/Time: Friday, December 02, 2016 08:33 - CONCLUSION: Uncomplicated CT guided biopsy of the right kidney for function. Mustapha Vela Jr., MD Catheter Placement X-Ray 11/28/16 0000 Signed Impressions: Service Date/Time: Monday, November 28, 2016 15:57 - CONCLUSION: Uncomplicated PermaCath placement as above. Mustapha Vela Jr., MD Renal Ultrasound 11/22/16 0000 Signed Impressions: Service Date/Time: Tuesday, November 22, 2016 17:14 - CONCLUSION: Mild pelvocaliectasis right kidney not present previously. Obdulia Garcia MD Objective Remarks Physical Exam GENERAL: cachectic appearing middle-aged male, lying in bed, resting. on nonrebreather facemask SKIN: No rashes, ecchymoses or lesions. Cool and dry. HEAD: Atraumatic. Normocephalic. No temporal or scalp tenderness. EYES: Pupils equal round and reactive. Pallor present. No scleral icterus. No injection or drainage. ENT: Nose without bleeding, purulent drainage or septal hematoma. Airway patent. NECK: Trachea midline. No JVD CARDIOVASCULAR: Regular rate and rhythm. Well-healed sternotomy incision. Dressing over right thoracotomy site, chest tube in place with 1+ air leak RESPIRATORY: Decreased BS on right. Subcutaneous emphysema over chest wall. Rhonchi over right lung field, left lung field appears clear with no wheezing or crackles. Right sided chest tube in place with positive air leak GASTROINTESTINAL: Abdomen soft, non-tender, nondistended. No guarding. MUSCULOSKELETAL: Extremities without clubbing, cyanosis, or edema. NEUROLOGICAL: resting comfortably but arousable. no focal deficits. Procedures 11/28/2016 Right Internal Jugular Hemodialysis Catheter Tunneled Placement dual lumen 12/02/2016 Successful right renal biopsy for function. Gelfoam and thrombin utilized. No bleeding on post CT Lung Biopsy 12/23/16. Dialysis 12/24/16. 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 Follow neuro status. Cardiovascular: Watch for hypotension. 2-D echo with normal LV function. Pulmonary: On high flow nasal cannula-transitioned to nonrebreather facemask. Patient may require surgery for bronchopleural fistula if respiratory status does not improve. Prednisone being tapered by Dr. Cheung. Awaiting transfer to [facility] for evaluation by interventional pulmonary for management of persistent air leak. GI/liver: By mouth diet if respiratory status allows. Renal/: On hemodialysis. Nephrology following. Strict intake output, monitor and replete electrolytes, follow BUN creatinine. ID: Has completed course of antibiotics. No evidence of fungus on pathology so far from lung biopsy. Awaiting final results per Dr. Roth. Heme: Has been transfused multiple times during this admission. Transfuse to keep hemoglobin above 7 g percent. Epogen with hemodialysis. Has not had EGD due to poor respiratory status and has been evaluated by GI. Colonoscopy done on 12/18 revealed diverticulosis and internal hemorrhoids with no active bleeding. Endocrine: Watch for hyperglycemia, SSI for glycemic control if needed. Prophylaxis: SCDs, Lovenox discussed with [employer]. If patient's respiratory status declines may require surgery for right bronchopleural fistula. Mehrdad Mackay MD Jan 13, 2017 11:01
--- NOTE | 2017-01-13 12:27 | RADRPT ---
EXAM DATE/TIME: 01/13/2017 12:12 [place] COMPARISON: CHEST SINGLE AP, January 10, 2017, 4:23. INDICATIONS : Pneumothorax. Short of breath. MEDICAL HISTORY : Chronic obstructive pulmonary disease. Cardiovascular disease. Hypertension. SURGICAL HISTORY : CABG. ENCOUNTER: Subsequent ACUITY: 4 - 6 days PAIN SCORE: 5/10 LOCATION: Right chest FINDINGS: There is a dialysis catheter in good position. There chest tube on the right. There are extensive pleural-parenchymal changes. There is subcutaneous emphysema. No definite pneumothorax is seen. The subcutaneous emphysema is decreasing when compared to previous. The left lung is clear. There is mild hyperinflation on the left. The patient is post median sternotomy. CONCLUSION: 1. Extensive pleural-parenchymal changes on the right. These are stable compared to previous. No pneu mothorax is seen. 2. Chest tube and dialysis catheter are in satisfactory position. Andrea Willingham MD on January 13, 2017 at 12:24 Board Certified Radiologist. This report was verified electronically.
[2017-01-13] MEDS: FERROUS SULFATE 325 MG (65 MG ELEMENTAL IRON) TAB PO SCH ×2 (12:38→17:18)
[2017-01-13] MEDS: ASCORBIC ACID 500 MG TAB PO SCH ×2 (12:39→17:18)
[2017-01-13] MEDS ORDERED: BUDE.5I NEB (16:26)
[2017-01-13] MEDS ORDERED: PANT40TA3 PO (16:26)
[2017-01-13] MEDS ORDERED: EPOG4000 IV (16:26)
[2017-01-13] MEDS ORDERED: IPRASOL NEB (16:26)
[2017-01-13] MEDS ORDERED: SEVEL800 PO (16:26)
[2017-01-13] MEDS ORDERED: VITA500T2 PO (16:26)
[2017-01-13] MEDS ORDERED: GENT20P IV (16:26)
[2017-01-13] MEDS ORDERED: ENOX30P SQ (16:26)
[2017-01-13] MEDS ORDERED: DOCU1CAP39 PO (16:26)
[2017-01-13] MEDS ORDERED: PRED10 PO (16:26)
[2017-01-13] MEDS ORDERED: ALBU12.5P IV (16:26)
[2017-01-13] MEDS ORDERED: HEPAR10KP (16:26)
[2017-01-13] MEDS ORDERED: BENA25CA4 PO (16:26)
[2017-01-13] MEDS ORDERED: POLY17S PO (16:26)
[2017-01-13] MEDS ORDERED: FERR325T20 PO (16:26)
[2017-01-13] MEDS ORDERED: HYDR-3516 PO (16:26)
[2017-01-13] MEDS ORDERED: VITA1000 PO (16:26)
--- NOTE | 2017-01-13 16:35 | HHI.DS ---
Discharge Summary Admission Date Nov 22, 2016 at 17:05 Discharge Date: Jan 13, 2017 Admitting Diagnosis acute renal failure, anemia, sepsis (1) Sepsis ICD Codes: A41.9 - Sepsis, unspecified organism Status: Resolved (2) Acute renal failure Diagnosis: Principal ICD Codes: N17.9 - Acute kidney failure, unspecified Status: Resolved (3) Pneumonia ICD Codes: J18.9 - Pneumonia, unspecified organism Status: Resolved (4) Coronary artery disease Diagnosis: Principal ICD Codes: I25.10 - Coronary artery disease Status: Chronic (5) Anemia Diagnosis: Principal ICD Codes: D64.9 - Anemia Status: Chronic (6) Hematochezia ICD Codes: K92.1 - Melena Status: Resolved (7) Hypokalemia ICD Codes: E87.6 - Hypokalemia Status: Resolved (8) Chronic kidney disease, stage 5 Diagnosis: Principal ICD Codes: N18.5 - Chronic kidney disease, stage 5 Status: Chronic (9) AVF (arteriovenous fistula) Diagnosis: Principal ICD Codes: I77.0 - Arteriovenous fistula, acquired Procedures Right thoracotomy with VATS assist, lysis of adhesions, decortication, pleural biopsies and cultures, right upper lobe biopsies and cultures 12/30 Brief History 01/07: 55 yo male with 6 weeks of fever, SOB, worsening cough On presentation in late November pt was found to have ARF on CKD His renal biopsy revealed severe interstitial fibrosis, tubular atrophy and findings suggestive MPGN, with significant global glomerular sclerosis. He was start on dialysis support MWF. AVF attempted, but failed, he has Permacath On presentation he was found tro have dense RUL PNA on CT His expectoration sputum and BAL were unrevealing His repeat CT showed again dense consolidation persists in the right upper lobe with air bronchograms and air filled cystic spaces. Debris versus possible fungus ball in one of the cystic spaces at the apex which is new. Multi-organism pneumonia suspected. Patient was evaluated by ID and CT surgery consulted for bx. On 12/30 patient underwent right thoracotomy with VATS, lysis of adhesions, decortication, pleural biopsy with cultures and right upper lobe biopsy with cultures under general anesthesia. He did have a chest tube placed during that procedure. He was noted to have a 1+ air leak on 01/01. Over the course of next few days his air leak has worsened. Patient was placed on -10 cm of water pressure today and subsequently underwent hemodialysis. Towards the end of hemodialysis patient developed worsening shortness of breath with O2 sats dropping to the 80s. Patient was placed on 100% nonrebreather facemask and stat chest x-ray revealed small basilar right pneumothorax with chest tube in place and chronic right sided infiltrates with loss of lung volume. Chest tube was placed to -30 cm water pressure with underwater seal and patient was subsequently rapid responded and transferred to CV ICU. Critical care consult was requested by Dr. Walton. I evaluated the patient immediately on his arrival to the ICU at that time he was on 100% nonrebreather facemask with O2 sats in the mid 90s. He appeared to have improved since increasing negative pressure on chest tube. I discussed the case with Dr. Roth at bedside. 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 He was maintaining his blood pressure and oxygen saturation at this time. He has been evaluated by pulmonary medicine and ID during this hospitalization as well. CBC/BMP: 01/13/17 0505 01/13/17 0505 Significant Findings Laboratory Tests Test 01/11/17 05:03 01/12/17 05:18 01/13/17 05:05 White Blood Count 16.6 TH/MM3 (4.0-11.0) 20.2 TH/MM3 (4.0-11.0) 15.4 TH/MM3 (4.0-11.0) Red Blood Count 2.89 MIL/MM3 (4.50-5.90) 2.85 MIL/MM3 (4.50-5.90) 2.80 MIL/MM3 (4.50-5.90) Hemoglobin 8.5 GM/DL (13.0-17.0) 8.6 GM/DL (13.0-17.0) 8.3 GM/DL (13.0-17.0) Hematocrit 26.7 % (39.0-51.0) 26.6 % (39.0-51.0) 25.7 % (39.0-51.0) Blood Urea Nitrogen 49 MG/DL (7-18) 63 MG/DL (7-18) 49 MG/DL (7-18) Creatinine 3.88 MG/DL (0.60-1.30) 4.17 MG/DL (0.60-1.30) 3.87 MG/DL (0.60-1.30) Estimat Glomerular Filtration Rate 16 ML/MIN (>89) 15 ML/MIN (>89) 16 ML/MIN (>89) Random Glucose 112 MG/DL (74-106) Chloride Level 97 MEQ/L (98-107) Imaging Last Impressions Chest X-Ray 01/13/17 0000 Signed Impressions: Service Date/Time: Friday, January 13, 2017 12:12 - CONCLUSION: 1. Extensive pleural-parenchymal changes on the right. These are stable compared to previous. No pneumothorax is seen. 2. Chest tube and dialysis catheter are in satisfactory position. Andrea Willingham MD Lung Biopsy CT 12/23/16 0000 Signed Impressions: Service Date/Time: Friday, December 23, 2016 09:37 - CONCLUSION: Uncomplicated CT guided biopsy/aspiration. Broderick Ndiaye MD Chest CT 12/17/16 1715 Signed Impressions: Service Date/Time: Saturday, December 17, 2016 17:51 - CONCLUSION: 1. Dense consolidation persists in the right upper lobe with air bronchograms and air filled cystic spaces. Debris versus possible fungus ball in one of the cystic spaces at the apex which is new. Multi-organism pneumonia suspected. 2. Non-consolidative patchy infiltrate of the right middle and lower lobes not significantly changed. 3. Decreased pleural effusion on the right, now trace. Completely resolved pleural effusion on the left. 4. Previous median sternotomy. Caio Wray MD Upper Extremity Ultrasound 12/04/16 0000 Signed Impressions: Service Date/Time: November 18:26 - CONCLUSION: Venous mapping as delineated above. The cephalic veins are abnormal bilaterally. Caio Villalpando MD Renal Biopsy CT 12/02/16 1350 Signed Impressions: Service Date/Time: Friday, December 02, 2016 08:33 - CONCLUSION: Uncomplicated CT guided biopsy of the right kidney for function. Mustapha Vela Jr., MD Catheter Placement X-Ray 11/28/16 0000 Signed Impressions: Service Date/Time: Monday, November 28, 2016 15:57 - CONCLUSION: Uncomplicated PermaCath placement as above. Mustapha Vela Jr., MD Renal Ultrasound 11/22/16 0000 Signed Impressions: Service Date/Time: Tuesday, November 22, 2016 17:14 - CONCLUSION: Mild pelvocaliectasis right kidney not present previously. Obdulia Garcia MD PE at Discharge GENERAL: SKIN: Warm and dry. dialysis cath right subclavian HEAD: Normocephalic. EYES: No scleral icterus. No injection or drainage. NECK: Supple, trachea midline. No JVD or lymphadenopathy. CARDIOVASCULAR: Regular rate and rhythm without murmurs, gallops, or rubs. RESPIRATORY: Breath sounds equal bilaterally. + sub q emphysema improving No accessory muscle use. right chest tube + 4-5 air leak GASTROINTESTINAL: Abdomen soft, non-tender, nondistended. MUSCULOSKELETAL: No cyanosis, or edema. BACK: Nontender without obvious deformity. No CVA tenderness. Hospital Course 12/29 Dr Roth discussed surgery / risks / procedure with pt / he ia agreeable to proceed for surgery in am 12/30 Right thoracotomy with VATS assist, lysis of adhesions, decortication, pleural biopsies and cultures, right upper lobe biopsies and cultures Right upper lobe resection was considered, but not technically feasible due to the dense consolidation, inflammation, and frozen hilum associated. 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 Denies dyspnea and comfortable 01/04/17 Persistent large air leak. No complaints otherwise 01/05/17 c/o pain related to chest tube site and pleuritic irritation. air leak a little better this morning. PATH still pending from biopsies submitted at the time of surgery last week. 01/06/17 still has extensive air leak ct to 20cm suction + sub q emphysema bilateral anterior chest wall and shoulders path pending will dc silver cleaner MS, prn norco for pain / breakthrough fentanly 01/07 persistent air leak +4 subq emphysema improving to chest still get very SOB with any exertion receiving dialysis at this time pain controlled 10 pt remains in CVICU was on high flow 02 last pm 25liters no further air leak noted in chest tube chamber, less subq emphysema noted pt encouraged to ask for pain meds to improve pulm toileting chest xray, no PTX path pending , will get pt OOB to chair appreciate CCM 01/09 pt now with recurrent air leak + 4-5, remains at 30cm suction cxr noted, + subq emphysema , some consolidation right perihilar region wean high flow 02 slowly , now at 20 liters / 60% fi02 OOB to chair as tolerated pain control, s/p dialysis today 01/11 Persistent air-leak Vitals stable Continue CT. Dr. Roth to determine further therapy 01/12 was still on 45% F102, 30 liters high flow [address] Roth and Dr Mackay recommend transferring pt to tertiary center for broncho fistula closure Pulm accepting Dr Cody Lopez, Hospitalist Dr Palmer await accepting bed at this time will try to wean to 100% NRB to see if pt tolerates OOB today after dialysis 01/13 now on 6 liter nasal cannula stil has +4-5 air leak subq emphysema improving await bed at [facility] in [place] Pt Condition on Discharge: Fair Discharge Disposition: Disch to Another Hospital Discharge Instructions DIET: Follow Instructions for: Heart Healthy Diet Activities you can perform: Regular-No Restrictions Activities to avoid: Strenuous Activity, Driving Additional Activity Instructio: no lifting > 8 lbs or gallon of milk Follow up Referrals: Pulmonology with Alison Wilson MD Surgical with Carmelita Roth MD Vascular Surgery @ Vascular Surgery with Clarence Pyle MD New Medications: Albumin Human Inj (Flexbumin Inj) 0.25 Gm/Ml Soln 25 GM IV UNSCH PRN for WITH DIALYSIS, #1 INJECTION Ascorbic Acid (C 500/Justine Hips) 500 Mg Tab 500 MG PO BID@1200,1700 for vitamin, #30 TAB Budesonide Neb (Pulmicort Respules) 0.5 Mg/2 Ml Neb 0.5 MG NEB BID NEB for COPD, #30 NEBULE 0 Refills Cholecalciferol (D 1000) 1,000 Unit Tab 2000 UNITS PO DAILY for vitamin, #30 TAB Diphenhydramine HCl (Benadryl Allergy) 25 Mg Cap 25 MG PO Q8H PRN for itching, #30 CAP dialysis Docusate Sodium (Dok) 100 Mg Cap 100 MG PO BID for Constipation, #60 CAP Enoxaparin Inj (Lovenox Inj) 30 Mg/0.3 Ml Syr 30 MG SQ EVERY OTHER DAY for Blood Clot Prevention, #1 INJECTION Epoetin Inj (Epogen Inj) 4,000 Unit/Ml Inj 4000 UNITS IV UNSCH PRN for WITH DIALYSIS, #1 INJECTION Ferrous Sulfate (Ferosul) 325 Mg (65 Mg Iron) Tablet 325 MG PO BID@12,17 for anemia, #60 TAB Gentamicin Inj (Gentamicin Inj) 20 Mg/2 Ml Inj 20 MG IV UNSCH PRN for WITH DIALYSIS, #1 INJECTION Heparin Inj (Heparin Inj) 10,000 Units/10 Ml Inj 0 UNITS .XX UNSCH PRN for WITH DIALYSIS, #1 INJECTION Hydrocodone-Acetaminophen (Hydrocodone-Acetaminophen) 5-325 mg Tab 1 TAB PO Q4H PRN for PAIN SCALE 1 TO 5, #10 TAB 0 Refills Ipratropium-Albuterol Neb (Duoneb) 0.5-2.5 Mg/3 Ml Neb 1 AMPULE NEB Q4HR NEB PRN for SHORTNESS OF BREATH, #1 ML Pantoprazole (Pantoprazole) 40 Mg Tab 40 MG PO HS for GERD, #30 TAB Polyethylene Glycol 3350 Powder (Polyethylene Glycol 3350 Powder) 17 Gram Pow 17 GM PO DAILY for Constipation, #30 PACK Prednisone (Prednisone) 10 Mg Tab 10 MG PO DAILY for steroid, #10 TAB Sevelamer Carbonate (Renvela) 800 Mg Tab 1600 MG PO TIDAC for renal pt , #30 TAB Continued Medications: B-Complex Vitamins (B Complex) 1 Cap 1 CAP PO DAILY for Nutritional Supplement, #30 CAP 0 Refills Folic Acid (Folic Acid) 400 Mcg Tab 400 MCG PO DAILY for Nutritional Supplement, TAB 0 Refills Marly Heart Jan 13, 2017 16:34
[2017-01-13] MEDS: PANTOPRAZOLE SOD 40 MG DELAYED RELEASE TAB PO SCH (21:24)
[2017-01-14] VITALS (26 sets, daily range): BP systolic 90–111; BP diastolic 63–78; PULSE 83–106; RESP 17–18; TEMP 97.8–98.7; O2SAT 94–100
[2017-01-14 05:27] LABS: HEMATOCRIT 24.7 % (39.0-51.0); MEAN CELL VOLUME 92.1 FL (80.0-100.0); MEAN CORPUSCULAR HEMOGLOBIN 29.9 PG (27.0-34.0); MEAN CORPUSCULAR HGB CONC 32.4 % (32.0-36.0); PLATELET COUNT 295 TH/MM3 (150-450); RED BLOOD COUNT 2.68 MIL/MM3 (4.50-5.90); RED CELL DISTRIBUTION WIDTH 16.7 % (11.6-17.2); REVIEW FLAG FINAL; WHITE BLOOD COUNT 12.8 TH/MM3 (4.0-11.0)
[2017-01-14 05:52] LABS: POTASSIUM 3.9 MEQ/L (3.5-5.1)
[2017-01-14 05:53] LABS: BICARBONATE 27.4 MEQ/L (21.0-32.0)
[2017-01-14] MEDS: DOCUSATE SODIUM 100 MG CAP PO SCH ×2 (07:24→21:00)
[2017-01-14] MEDS: SODIUM CHLORIDE 0.9% FLUSH 5 ML FLUSH IV FLUSH SCH ×2 (07:24→21:00)
[2017-01-14] MEDS: CHOLECALCIFEROL (VIT D3) 1000 UNIT TAB PO SCH (07:25)
[2017-01-14] MEDS: POLYETHYLENE GLYCOL 17 GM PKG PO SCH (07:25)
[2017-01-14] MEDS: predniSONE 10 MG TAB PO SCH (07:26)
[2017-01-14] MEDS: HYDROCORTISONE ACETATE 25 MG SUPP RECTAL SCH (07:26)
[2017-01-14] MEDS: SEVELAMER CARBONATE 800 MG TAB PO SCH ×3 (07:26→17:48)
[2017-01-14] MEDS: LACTOBACILLUS ACIDOPHILUS TAB PO SCH ×2 (07:26→21:08)
[2017-01-14] MEDS: RESP: BUDESONIDE 0.5 MG/2 ML NEB NEB SCH ×2 (07:44→19:48)
--- NOTE | 2017-01-14 10:55 | HHI.NPPN ---
Subjective General Problems: Anemia Renal Failure: Acute Interval History Seen during dialysis. Awaiting transfer to [facility]. No new issues. (Milla Pack) Review of Systems General Constitutional: Fatigue (Milla Pack) Respiratory Lungs: SOB, Cough, Sputum (Milla Pack) Musculoskeletal MS: Pain/Stiffness (Milla Pack) Objective Data Data Vital Signs Date Time Temp Pulse Resp B/P (MAP) Pulse Ox O2 Delivery O2 Flow Rate FiO2 01/14/17 10:47 100 01/14/17 09:06 95 01/14/17 08:35 97.9 94 18 111/67 (82) 94 01/14/17 08:35 83 01/14/17 08:35 94 Nasal Cannula 5.00 01/14/17 07:46 95 Nasal Cannula 5.00 01/14/17 06:30 93 01/14/17 05:12 85 01/14/17 04:28 87 01/14/17 03:44 88 01/14/17 03:44 97.8 90 17 108/78 (88) 96 01/14/17 03:44 96 Nasal Cannula 7.00 01/14/17 02:28 87 01/14/17 01:22 90 01/14/17 00:21 89 01/13/17 23:15 97 01/13/17 23:15 96 Nasal Cannula 7.00 01/13/17 23:15 98.1 101 16 110/73 (85) 96 01/13/17 22:14 99 01/13/17 21:00 97 01/13/17 20:50 100 Non-Rebreather 15.00 01/13/17 20:33 101 01/13/17 19:20 98.0 96 16 107/70 (82) 100 01/13/17 19:20 100 Nasal Cannula 7.00 01/13/17 19:20 97 01/13/17 18:00 99 01/13/17 17:00 98 01/13/17 16:00 114 01/13/17 15:32 98.2 94 20 108/68 (81) 95 01/13/17 15:07 93 Nasal Cannula 7.00 01/13/17 15:00 96 01/13/17 14:00 100 01/13/17 13:00 98 01/13/17 12:00 94 Nasal Cannula 7.00 Humidified 01/13/17 12:00 101 01/13/17 11:45 94 Nasal Cannula 7.00 01/13/17 11:32 99 Non-Rebreather 15.00 01/13/17 11:28 98.4 94 20 103/67 (79) 95 01/13/17 11:00 104 (Milla Pack) -: 01/14/17 0427 01/14/177 Imaging Last Impressions Chest X-Ray 01/13/17 0000 Signed Impressions: Service Date/Time: Friday, January 13, 2017 12:12 - CONCLUSION: 1. Extensive pleural-parenchymal changes on the right. These are stable compared to previous. No pneumothorax is seen. 2. Chest tube and dialysis catheter are in satisfactory position. Andrea Willingham MD Lung Biopsy CT 12/23/16 0000 Signed Impressions: Service Date/Time: Friday, December 23, 2016 09:37 - CONCLUSION: Uncomplicated CT guided biopsy/aspiration. Broderick Ndiaye MD Chest CT 12/17/16 1715 Signed Impressions: Service Date/Time: Saturday, December 17, 2016 17:51 - CONCLUSION: 1. Dense consolidation persists in the right upper lobe with air bronchograms and air filled cystic spaces. Debris versus possible fungus ball in one of the cystic spaces at the apex which is new. Multi-organism pneumonia suspected. 2. Non-consolidative patchy infiltrate of the right middle and lower lobes not significantly changed. 3. Decreased pleural effusion on the right, now trace. Completely resolved pleural effusion on the left. 4. Previous median sternotomy. Caio Wray MD Upper Extremity Ultrasound 12/04/16 0000 Signed Impressions: Service Date/Time: November 18:26 - CONCLUSION: Venous mapping as delineated above. The cephalic veins are abnormal bilaterally. Caio Villalpando MD Renal Biopsy CT 12/02/16 1350 Signed Impressions: Service Date/Time: Friday, December 02, 2016 08:33 - CONCLUSION: Uncomplicated CT guided biopsy of the right kidney for function. Mustapha Vela Jr., MD Catheter Placement X-Ray 11/28/16 0000 Signed Impressions: Service Date/Time: Monday, November 28, 2016 15:57 - CONCLUSION: Uncomplicated PermaCath placement as above. Mustapha Vela Jr., MD Renal Ultrasound 11/22/16 0000 Signed Impressions: Service Date/Time: Tuesday, November 22, 2016 17:14 - CONCLUSION: Mild pelvocaliectasis right kidney not present previously. Obdulai Garcia MD Tubes & Lines: Perma-Cath Tubes & Lines Comment chest tube right. (Milla Pack B. QUALITY PROCESS AUDITOR) Physical Exam General Appearance: No Acute Distress, Comfortable, Pale, Malnourished (Sirena,Milla B. QUALITY PROCESS AUDITOR) Eyes Eye Exam: Pupils Equal, Pupils Reactive (Sirena,Milla B. QUALITY PROCESS AUDITOR) Throat Throat Exam: Oral Mucosa [place] [facility] & Moist (Sirena,Milla B. QUALITY PROCESS AUDITOR) Neck Neck Exam: Neck Supple (Sirena,Milla B. QUALITY PROCESS AUDITOR) Pulmonary Resp Exam: No Distress, Crackles, Rhonchi, Decreased Bases Resp Remarks course right side lung sounds; chest tube right subcutaneous air right arm, other areas of truck and abdomen mostly resolved (SirenaMilla patel B. QUALITY PROCESS AUDITOR) Cardiology CV Exam: Regular, Normal Sinus Rhythm, Good Perfusion (Philip Packon B. QUALITY PROCESS AUDITOR) Gastrointestinal/Abdomen GI Exam: Soft, Non-Tender, Bowel Sounds Present, Positive Bowel Movement (Philip Packon B. QUALITY PROCESS AUDITOR) Musculoskeletal MS Exam: Joints Intact, Normal Gait, Normal Tone, Atrophy (SirenaMilla B. QUALITY PROCESS AUDITOR) Integumentary Skin Exam: Clear, Warm, Dry, Intact (Milla Pack B. QUALITY PROCESS AUDITOR) Extremeties Extremities Exam: No Edema (Philip Packon B. QUALITY PROCESS AUDITOR) Neurologic Neuro Exam: Alert, Awake, Oriented (Philip Packon B. QUALITY PROCESS AUDITOR) Psychiatric Psych Exam: Appropriate Responses (Milla Pack B. QUALITY PROCESS AUDITOR) Assessment/Plan Discussed Condition With: Patient Assessment Summary: SEJAL/Acute Renal Failure, Anemia of CKD Electrolyte Assessment: Metabolic Acidosis Problem List: (1) Chronic kidney disease, stage 5 ICD Codes: N18.5 - Chronic kidney disease, stage 5 Status: Chronic Plan: Patient likely has reached ESRD. s/p renal biopsy this admission. He does make quite a bit of urine. Continue dialysis support MWF. Seen during dialysis today on a 3K, 350 BFR, goal 500 ml Continue nutritional support with meals; on high protein diet AVF creation failed. He will need permanent HD access placed but too unstable currently. To be addressed at a later date. Intermittently obtain metabolic profile (2) Pneumonia ICD Codes: J18.9 - Pneumonia, unspecified organism Status: Resolved Plan: Pulmonary and CTS surgery are following, s/p bronchoscopy and thoracotomy with decortication Biopsy negative for pulmonary aspergillus fungal ball in right lung s/p right thoracotomy 12/30 with chest tube placement; had air leak that CTS is managing with pulmonary Concerns for bronchopleural fistula noted. To be transferred to [facility] for surgery. Awaiting bed placement Serial chest xrays have been taken. (3) Hypokalemia ICD Codes: E87.6 - Hypokalemia Status: Resolved Plan: corrected; thought to have a proximal renal tubular disorder Follow labs, he is off daily replacement (4) Hypocalcemia ICD Codes: E83.51 - Hypocalcemia Plan: Continue to treat hyperphosphatemia, on Sevelamer with meals. (5) Anemia ICD Codes: D64.9 - Anemia Status: Chronic Plan: Transfuse as needed, Most recent 12/30 Continue high dose of Epogen with dialysis. Check CBC intermittently; goal Hb > 7 (6) Acidosis ICD Codes: E87.2 - Acidosis Status: Acute Plan: corrected with dialysis , monitor (7) GI bleed ICD Codes: K92.2 - Gastrointestinal hemorrhage, unspecified Status: Acute Plan: GI has signed off; s/p EGD/colonoscopy may need capsule endoscopy outpatient (Milla Pack) Plan patient was seen and examined. Seen during dialysis today. He is to be transferred to [facility] for repair of bronchopleural fistula. (Jim Zuluaga MD) Problem Qualifiers (1) Pneumonia: Qualified Codes: J18.1 - Lobar pneumonia, unspecified organism (2) Anemia: Qualified Codes: N18.5 - Chronic kidney disease, stage 5; D63.1 - Anemia in chronic kidney disease (3) GI bleed: Milla Pack Jan 14, 2017 10:55 Jim Zuluaga MD Jan 14, 2017 17:42
[2017-01-14] MEDS: ASCORBIC ACID 500 MG TAB PO SCH ×2 (11:49→17:48)
[2017-01-14] MEDS: FERROUS SULFATE 325 MG (65 MG ELEMENTAL IRON) TAB PO SCH ×2 (11:49→17:48)
[2017-01-14] MEDS: ACETAMINOPHEN/HYDROcodone 325 MG/5 MG TAB PO PRN ×3 (13:33→22:39)
--- NOTE | 2017-01-14 16:05 | PD.CAR.PN ---
CVT Progress Note Subjective/Hospital Course: ct guided lung bx / no fungal elements Dr Claire Lott requesting re-eval for possible thoractomy discussed with pt right thoracotomy for pulmonary resection Dr Roth will discuss further with pt on Thursday tentatively scheduled for case 12/29 Dr Roth discussed surgery / risks / procedure with pt / he ia agreeable to proceed for surgery in am 12/30 Right thoracotomy with VATS assist, lysis of adhesions, decortication, pleural biopsies and cultures, right upper lobe biopsies and cultures Right upper lobe resection was considered, but not technically feasible due to the dense consolidation, inflammation, and frozen hilum associated. 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 Denies dyspnea and comfortable 01/04/17 Persistent large air leak. No complaints otherwise 01/05/17 c/o pain related to chest tube site and pleuritic irritation. air leak a little better this morning. PATH still pending from biopsies submitted at the time of surgery last week. 01/06/17 still has extensive air leak ct to 20cm suction + sub q emphysema bilateral anterior chest wall and shoulders path pending will dc fitter welder MS, prn norco for pain / breakthrough fentanly 10/ persistent air leak +4 subq emphysema improving to chest still get very SOB with any exertion receiving dialysis at this time pain controlled 10/5 pt remains in CVICU was on high flow last pm 25liters no further air leak noted in chest tube chamber, less subq emphysema noted pt encouraged to ask for pain meds to improve pulm toileting chest xray, no PTX path pending , will get pt OOB to chair appreciate CCM 10/6 pt now with recurrent air leak + 4-5, remains at 30cm suction cxr noted, + subq emphysema , some consolidation right perihilar region wean high flow 02 slowly , now at 20 liters / 60% fi02 OOB to chair as tolerated pain control, s/p dialysis today 01/11 Persistent air-leak Vitals stable Continue CT. Dr. Roth to determine further therapy 01/12 was still on 45% F102, 30 liters high flow [address] Roth and Dr Mackay recommend transferring pt to tertiary center for broncho fistula closure Pulm accepting Dr Cody Lopez, Hospitalist Dr Palmer await accepting bed at this time will try to wean to 100% NRB to see if pt tolerates OOB today after dialysis 01/13 discharge summary done , see dictation 01/14 still waiting on bed at [facility] still has + 5 air leak now on 4 liter nasal cannula dialysis today Objective: GENERAL: SKIN: Warm and dry. HEAD: Normocephalic. EYES: No scleral icterus. No injection or drainage. NECK: Supple, trachea midline. No JVD or lymphadenopathy. CARDIOVASCULAR: Regular rate and rhythm without murmurs, gallops, or rubs. RESPIRATORY: Breath sounds equal bilaterally. No accessory muscle use. right lateral chest tube in place + 5 air leak GASTROINTESTINAL: Abdomen soft, non-tender, nondistended. MUSCULOSKELETAL: No cyanosis, or edema. BACK: Nontender without obvious deformity. No CVA tenderness. Vital Signs Date Time Temp Pulse Resp B/P (MAP) Pulse Ox O2 Delivery O2 Flow Rate FiO2 01/14/17 16:00 104 01/14/17 15:21 104 01/14/17 15:21 97.8 103 18 90/64 (73) 95 01/14/17 15:21 95 Nasal Cannula 5.00 01/14/17 14:58 18 01/14/17 14:01 106 01/14/17 13:02 106 01/14/17 12:01 96 01/14/17 11:33 101 01/14/17 10:47 100 01/14/17 09:06 95 01/14/17 08:35 97.9 94 18 111/67 (82) 94 01/14/17 08:35 83 01/14/17 08:35 94 Nasal Cannula 5.00 01/14/17 07:46 95 Nasal Cannula 5.00 01/14/17 06:30 93 01/14/17 05:12 85 01/14/17 04:28 87 01/14/17 03:44 88 01/14/17 03:44 97.8 90 17 108/78 (88) 96 01/14/17 03:44 96 Nasal Cannula 7.00 01/14/17 02:28 87 01/14/17 01:22 90 01/14/17 00:21 89 01/13/17 23:15 97 01/13/17 23:15 96 Nasal Cannula 7.00 01/13/17 23:15 98.1 101 16 110/73 (85) 96 01/13/17 22:14 99 01/13/17 21:00 97 01/13/17 20:50 100 Non-Rebreather 15.00 01/13/17 20:33 101 01/13/17 19:20 98.0 96 16 107/70 (82) 100 01/13/17 19:20 100 Nasal Cannula 7.00 01/13/17 19:20 97 01/13/17 18:00 99 01/13/17 17:00 98 Labs: Laboratory Tests Test 01/14/17 04:27 White Blood Count 12.8 TH/MM3 (4.0-11.0) Red Blood Count 2.68 MIL/MM3 (4.50-5.90) Hemoglobin 8.0 GM/DL (13.0-17.0) Hematocrit 24.7 % (39.0-51.0) Mean Corpuscular Volume 92.1 FL (80.0-100.0) Mean Corpuscular Hemoglobin 29.9 PG (27.0-34.0) Mean Corpuscular Hemoglobin Concent 32.4 % (32.0-36.0) Red Cell Distribution Width 16.7 % (11.6-17.2) Platelet Count 295 TH/MM3 (150-450) Mean Platelet Volume 8.6 FL (7.0-11.0) Blood Urea Nitrogen 67 MG/DL (7-18) Creatinine 4.71 MG/DL (0.60-1.30) Random Glucose 89 MG/DL (74-106) Calcium Level 8.9 MG/DL (8.5-10.1) Sodium Level 134 MEQ/L (136-145) Potassium Level 3.9 MEQ/L (3.5-5.1) Chloride Level 94 MEQ/L (98-107) Carbon Dioxide Level 27.4 MEQ/L (21.0-32.0) Anion Gap 13 MEQ/L (5-15) Estimat Glomerular Filtration Rate 13 ML/MIN (>89) Phosphorus Level 5.8 MG/DL (2.5-4.9) Result Diagram: 01/14/1742601/14/17426 Telemetry: NSR (1) Pulmonary infiltrate in right lung on chest x-ray Plan: pulm toileting nebs, ezpap OOB ambulate consult PT path pending keep chest tube to 20cm suction now on 4 liters [address] [facility] Dr Lopez, pulmonary medicine , when bed available (2) Pneumonia Plan: post ABX/ ID signed off (3) Right thoracotomy with VATS assist, lysis of adhesions, decortication, pleural biopsies Plan: path organizing PNA, BOOP bronchiolitis obliterans organizing pneumonia , parenchymal fibrosis low dose steroids Problem Qualifiers (1) Pneumonia: Qualified Codes: J18.1 - Lobar pneumonia, unspecified organism Marly Heart Jan 14, 2017 16:05
--- NOTE | 2017-01-14 18:42 | HHI.PR ---
Subjective Remarks Patient denies cp/sob There is still a leak present no fevers or chills reported on 5 liters nasal canula Objective Vitals Vital Signs Date Time Temp Pulse Resp B/P (MAP) Pulse Ox O2 Delivery O2 Flow Rate FiO2 01/14/17 18:31 18 01/14/17 18:11 105 01/14/17 17:02 95 01/14/17 16:00 104 01/14/17 15:21 104 01/14/17 15:21 97.8 103 18 90/64 (73) 95 01/14/17 15:21 95 Nasal Cannula 5.00 01/14/17 14:58 18 01/14/17 14:01 106 01/14/17 13:02 106 01/14/17 12:01 96 01/14/17 11:33 101 01/14/17 10:47 100 01/14/17 09:06 95 01/14/17 08:35 97.9 94 18 111/67 (82) 94 01/14/17 08:35 83 01/14/17 08:35 94 Nasal Cannula 5.00 01/14/17 07:46 95 Nasal Cannula 5.00 01/14/17 06:30 93 01/14/17 05:12 85 01/14/17 04:28 87 01/14/17 03:44 88 01/14/17 03:44 97.8 90 17 108/78 (88) 96 01/14/17 03:44 96 Nasal Cannula 7.00 01/14/17 02:28 87 01/14/17 01:22 90 01/14/17 00:21 89 01/13/17 23:15 97 01/13/17 23:15 96 Nasal Cannula 7.00 01/13/17 23:15 98.1 101 16 110/73 (85) 96 01/13/17 22:14 99 01/13/17 21:00 97 01/13/17 20:50 100 Non-Rebreather 15.00 01/13/17 20:33 101 01/13/17 19:20 98.0 96 16 107/70 (82) 100 01/13/17 19:20 100 Nasal Cannula 7.00 01/13/17 19:20 97 I/O 01/13/17 01/13/17 01/13/17 01/14/17 01/14/17/11/17 06:59 14:59 22:59 06:59 14:59 22:59 Intake Total 240 ml 675 ml 520 ml 357 ml Output Total 410 ml 540 ml 720 ml 300 ml 705 ml Balance -170 ml 135 ml -200 ml -300 ml -348 ml Intake Oral 240 ml 675 ml 520 ml 357 ml Output Urine Total 250 ml 420 ml 550 ml 525 ml Chest Tube Drainage Total 160 ml 170 ml 180 ml Drainage Total 120 ml Hemodialysis 300 ml # Voids 1 # Bowel Movements 0 1 Result Diagram: 01/14/1742601/14/17426 Objective Remarks GENERAL: cachectic appearing middle-aged male, lying in bed, resting. on nonrebreather facemask SKIN: No rashes, ecchymoses or lesions. Cool and dry. HEAD: Atraumatic. Normocephalic. No temporal or scalp tenderness. EYES: Pupils equal round and reactive. Pallor present. No scleral icterus. No injection or drainage. ENT: Nose without bleeding, purulent drainage or septal hematoma. Airway patent. NECK: Trachea midline. No JVD CARDIOVASCULAR: Regular rate and rhythm. Well-healed sternotomy incision. Dressing over right thoracotomy site, chest tube in place with 1+ air leak RESPIRATORY: Decreased BS on right. Subcutaneous emphysema over chest wall. Rhonchi over right lung field, left lung field appears clear with no wheezing or crackles. Right sided chest tube in place with positive air leak GASTROINTESTINAL: Abdomen soft, non-tender, nondistended. No guarding. MUSCULOSKELETAL: Extremities without clubbing, cyanosis, or edema. NEUROLOGICAL: resting comfortably but arousable. no focal deficits. Procedures 11/28/2016 Right Internal Jugular Hemodialysis Catheter Tunneled Placement dual lumen 12/02/2016 Successful right renal biopsy for function. Gelfoam and thrombin utilized. No bleeding on post CT Lung Biopsy 12/23/16. Dialysis 12/24/16. Urinary Catheter: No Vascular Central Line Catheter: No A/P Problem List: (1) Sepsis ICD Code: A41.9 - Sepsis, unspecified organism Status: Resolved (2) Acute renal failure ICD Code: N17.9 - Acute kidney failure, unspecified Status: Resolved (3) Pneumonia ICD Code: J18.9 - Pneumonia, unspecified organism Status: Resolved (4) Coronary artery disease ICD Code: I25.10 - Coronary artery disease Status: Chronic (5) Anemia ICD Code: D64.9 - Anemia Status: Chronic (6) Hematochezia ICD Code: K92.1 - Melena Status: Resolved (7) Hypokalemia ICD Code: E87.6 - Hypokalemia Status: Resolved (8) Chronic kidney disease, stage 5 ICD Code: N18.5 - Chronic kidney disease, stage 5 Status: Chronic (9) AVF (arteriovenous fistula) ICD Code: I77.0 - Arteriovenous fistula, acquired Assessment and Plan Mr. Fonseca is a 55-year-old male patient with a known medical history of CAD s/ p CABG and CKD who presented to the ED with complaints of increasing dyspnea, generalized weakness, fevers and frequent diaphoresis x 2 weeks. Sepsis on admission suspect secondary to right multilobular pneumonia-resolved Dense cavitary pneumonia of the right lung - Pulmonary consulted and following. - Completed cefepime 1 g every 12 hours on 12/06/16 - Cardiothoracic Surgery and ID consulted. - Negative Aspergillus titers. Chronic obstructive pulmonary disease Acute Respiratory failure Extensive right lung pneumonia with cavitation - CT chest 11/26 dense consolidative right upper lobe pneumonia with severe emphysema with cavitary foci within the consolidated areas, patchy right middle and lower lobe pneumonia - Pulmonary following - RUL BAL 12/05 negative for malignant cells - CT guided bx 12/23 negative for fungus, AFB or malignancy. Substantial fibrosis noted. - Sputum culture negative. Bronchial cultures negative. Negative Aspergillus titers. - Continue scheduled and PRN duonebs. - Continue Robitussin Ac prn cough - Supplemental O2 to keep sats >88%. - Patient sp right thoracotomy, lysis of adhesions, decortication, pleural biopsy on 12/30. - 01/14 Patient on high flow nasal cannula. Patient was transitioned from February with a mask. 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 Pulmonary following. Awaiting transfer to [facility] for evaluation by interventional pulmonary for management of persistent air leak. 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 ESRD on Hemodyalisis - Per nephrology will need care home dialysis (MWF). - Patient underwent AV fistula surgery on 12/10/2016. However, patient may need AV graft. - US kidney/renal/bladder ordered and reviewed showing mild pelvocaliectasis right kidney. 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 Continue to monitor BUN/ creatinine, strict I's and O's and avoid nephrotoxins. Normochromic, normocytic anemia suspect secondary to acute blood loss/ hematochezia - Transfused total of 6 PRBCs since admission, and transfuse for HgB<7.0 - Continue Protonix 40 mg twice a day - EGD/Colonoscopy on 12/18/2016 - No major findings, no bleeding source. May need capsule endoscopy as outpt. GI has signed off. - Hgb 7.0 on 12/24, repeat H&H. Transfuse is 7.0 or less. - Epogen per Nephrology - 01/14 Hemoglobin stable at 8.0. Continue to monitor CBC Hyperkalemia - 12/31 sp IV insulin + D50 and Kayexalate. Repeat BMP. - Resolved. COPD Exacerbation - Sp treatment with IV steroids an po Levaquin, now on prednisone taper as per pulmonology. Full code. DVT Prophylaxis: SCDs/TEDs., Ambulation. discussed with RN. Discharge Planning Patient awaiting transfer to [facility] [place]. Problem Qualifiers (1) Sepsis: (2) Acute renal failure: Qualified Codes: N17.8 - Other acute kidney failure (3) Pneumonia: Qualified Codes: J18.1 - Lobar pneumonia, unspecified organism (4) Coronary artery disease: Qualified Codes: I25.119 - Atherosclerotic heart disease of [place] coronary artery with unspecified angina pectoris (5) Anemia: Qualified Codes: N18.5 - Chronic kidney disease, stage 5; D63.1 - Anemia in chronic kidney disease Juanjo Rush MD Jan 14, 2017 18:42
--- NOTE | 2017-01-14 19:03 | HHI.PR ---
Subjective Remarks ALERT UP IN CHAIR NO DISTRESS CT , +LEAK Objective Vital Signs Date Time Temp Pulse Resp B/P (MAP) Pulse Ox O2 Delivery O2 Flow Rate FiO2 01/14/17 18:31 18 01/14/17 18:11 105 01/14/17 17:02 95 01/14/17 16:00 104 01/14/17 15:21 104 01/14/17 15:21 97.8 103 18 90/64 (73) 95 01/14/17 15:21 95 Nasal Cannula 5.00 01/14/17 14:58 18 01/14/17 14:01 106 01/14/17 13:02 106 01/14/17 12:01 96 01/14/17 11:33 101 01/14/17 10:47 100 01/14/17 09:06 95 01/14/17 08:35 97.9 94 18 111/67 (82) 94 01/14/17 08:35 83 01/14/17 08:35 94 Nasal Cannula 5.00 01/14/17 07:46 95 Nasal Cannula 5.00 01/14/17 06:30 93 01/14/17 05:12 85 01/14/17 04:28 87 01/14/17 03:44 88 01/14/17 03:44 97.8 90 17 108/78 (88) 96 01/14/17 03:44 96 Nasal Cannula 7.00 01/14/17 02:28 87 01/14/17 01:22 90 01/14/17 00:21 89 01/13/17 23:15 97 01/13/17 23:15 96 Nasal Cannula 7.00 01/13/17 23:15 98.1 101 16 110/73 (85) 96 01/13/17 22:14 99 01/13/17 21:00 97 01/13/17 20:50 100 Non-Rebreather 15.00 01/13/17 20:33 101 01/13/17 19:20 98.0 96 16 107/70 (82) 100 01/13/17 19:20 100 Nasal Cannula 7.00 01/13/17 19:20 97 I/O 01/13/17 01/13/17 01/13/17 01/14/17 01/14/17 01/14/17 06:59 14:59 22:59 06:59 14:59 22:59 Intake Total 240 ml 675 ml 520 ml 357 ml Output Total 410 ml 540 ml 720 ml 300 ml 705 ml Balance -170 ml 135 ml -200 ml -300 ml -348 ml Intake Oral 240 ml 675 ml 520 ml 357 ml Output Urine Total 250 ml 420 ml 550 ml 525 ml Chest Tube Drainage Total 160 ml 170 ml 180 ml Drainage Total 120 ml Hemodialysis 300 ml # Voids 1 # Bowel Movements 0 1 Result Diagram: 01/14/1742601/14/17426 Procedures Right thoracotomy with VATS assist, lysis of adhesions, decortication, pleural biopsies and cultures, right upper lobe biopsies and cultures 12/30 Objective Remarks GENERAL: SKIN: Warm and dry. HEAD: Atraumatic. Normocephalic. EYES: Pupils equal and round. No scleral icterus. No injection or drainage. ENT: No nasal bleeding or discharge. Mucous membranes pink and moist. NECK: Trachea midline. No JVD. CARDIOVASCULAR: Regular rate and rhythm. RESPIRATORY: No accessory muscle use. Clear to auscultation. Breath sounds equal bilaterally. GASTROINTESTINAL: Abdomen soft, non-tender, nondistended. Hepatic and splenic margins not palpable. MUSCULOSKELETAL: Extremities without clubbing, cyanosis, or edema. No obvious deformities. NEUROLOGICAL: Awake and alert. No obvious cranial nerve deficits. Motor grossly within normal limits. Five out of 5 muscle strength in the arms and legs. Normal speech. PSYCHIATRIC: Appropriate mood and affect; insight and judgment normal. Assessment and Plan Assessment and Plan PNA S/P CT PLACEMENT STILL WITH LEAK PLAN O2 ANTIBX REMOVE CT WHEN POSSIBLE Zoey Greer MD Jan 14, 2017 19:03
[2017-01-14] MEDS: PANTOPRAZOLE SOD 40 MG DELAYED RELEASE TAB PO SCH (21:08)
[2017-01-15] VITALS (26 sets, daily range): BP systolic 92–124; BP diastolic 59–79; PULSE 16–103; RESP 16–18; TEMP 97.3–98.5; O2SAT 93–100
[2017-01-15 05:45] LABS: HEMATOCRIT 25.2 % (39.0-51.0); MEAN CELL VOLUME 92.3 FL (80.0-100.0); MEAN CORPUSCULAR HEMOGLOBIN 29.7 PG (27.0-34.0); MEAN CORPUSCULAR HGB CONC 32.1 % (32.0-36.0); PLATELET COUNT 298 TH/MM3 (150-450); RED BLOOD COUNT 2.73 MIL/MM3 (4.50-5.90); RED CELL DISTRIBUTION WIDTH 16.5 % (11.6-17.2); REVIEW FLAG FINAL; WHITE BLOOD COUNT 9.7 TH/MM3 (4.0-11.0)
[2017-01-15 06:08] LABS: BICARBONATE 31.7 MEQ/L (21.0-32.0); POTASSIUM 3.7 MEQ/L (3.5-5.1)
[2017-01-15] MEDS: SEVELAMER CARBONATE 800 MG TAB PO SCH ×3 (08:47→16:22)
[2017-01-15] MEDS: CHOLECALCIFEROL (VIT D3) 1000 UNIT TAB PO SCH (08:53)
[2017-01-15] MEDS: LACTOBACILLUS ACIDOPHILUS TAB PO SCH ×2 (08:53→20:28)
[2017-01-15] MEDS: SODIUM CHLORIDE 0.9% FLUSH 5 ML FLUSH IV FLUSH SCH ×2 (08:53→20:29)
[2017-01-15] MEDS: DOCUSATE SODIUM 100 MG CAP PO SCH ×2 (08:53→20:29)
[2017-01-15] MEDS: predniSONE 10 MG TAB PO SCH (08:53)
[2017-01-15] MEDS: ENOXAPARIN SODIUM 30 MG/0.3 ML SYRINGE SQ SCH (08:55)
[2017-01-15] MEDS: POLYETHYLENE GLYCOL 17 GM PKG PO SCH (08:58)
[2017-01-15] MEDS: ACETAMINOPHEN/HYDROcodone 325 MG/5 MG TAB PO PRN ×3 (09:01→23:15)
[2017-01-15] MEDS: RESP: BUDESONIDE 0.5 MG/2 ML NEB NEB SCH ×2 (09:35→20:16)
--- NOTE | 2017-01-15 11:54 | HHI.PR ---
Subjective Remarks Patient states breathing is stable denies chest pain denies fevers/chills no diarrhea Objective Vitals Vital Signs Date Time Temp Pulse Resp B/P (MAP) Pulse Ox O2 Delivery O2 Flow Rate FiO2 01/15/17 10:10 16 01/15/17 10:00 98 01/15/17 09:35 93 Nasal Cannula 6.00 01/15/17 09:00 90 01/15/17 07:00 97.3 16 16 110/71 (84) 01/15/17 07:00 95 Nasal Cannula 5.00 01/15/17 07:00 96 01/15/17 06:10 90 01/15/17 05:07 87 01/15/17 04:01 88 01/15/17 03:46 98.5 101 17 93/59 (70) 94 01/15/17 03:46 95 Nasal Cannula 5.00 01/15/17 03:46 85 01/15/17 02:15 83 01/15/17 01:20 84 01/15/17 00:10 90 01/14/17 23:44 98 Nasal Cannula 5.00 01/14/17 23:44 98.7 94 18 101/65 (77) 95 01/14/17 23:15 96 01/14/17 22:30 89 01/14/17 21:10 96 01/14/17 20:30 98 01/14/17 19:50 100 Nasal Cannula 5.00 01/14/17 19:50 98.6 101 18 98/63 (75) 100 01/14/17 19:50 103 01/14/17 19:48 95 Nasal Cannula 5.00 01/14/17 18:31 18 01/14/17 18:11 105 01/14/17 17:02 95 01/14/17 16:00 104 01/14/17 15:21 104 01/14/17 15:21 97.8 103 18 90/64 (73) 95 01/14/17 15:21 95 Nasal Cannula 5.00 01/14/17 14:01 106 01/14/17 13:02 106 01/14/17 12:01 96 I/O 01/14/17 01/14/17 01/14/17 01/15/17 01/15/17 01/15/17 06:59 14:59 22:59 06:59 14:59 22:59 Intake Total 520 ml 359 ml 360 ml Output Total 720 ml 300 ml 705 ml 365 ml Balance -200 ml -300 ml -346 ml -5 ml Intake Oral 520 ml 357 ml 360 ml IV Total 2 ml Output Urine Total 550 ml 525 ml 225 ml Chest Tube Drainage Total 170 ml 180 ml 140 ml Hemodialysis 300 ml Result Diagram: 01/15/17 0444 01/15/17 0444 Imaging Last 72 hours Impressions Chest X-Ray 01/13/17 0000 Signed Impressions: Service Date/Time: Friday, January 13, 2017 12:12 - CONCLUSION: 1. Extensive pleural-parenchymal changes on the right. These are stable compared to previous. No pneumothorax is seen. 2. Chest tube and dialysis catheter are in satisfactory position. Andrea Willingham MD Objective Remarks GENERAL: cachectic appearing middle-aged male, lying in bed, resting. on nonrebreather facemask SKIN: No rashes, ecchymoses or lesions. Cool and dry. HEAD: Atraumatic. Normocephalic. No temporal or scalp tenderness. EYES: Pupils equal round and reactive. Pallor present. No scleral icterus. No injection or drainage. ENT: Nose without bleeding, purulent drainage or septal hematoma. Airway patent. NECK: Trachea midline. No JVD CARDIOVASCULAR: Regular rate and rhythm. Well-healed sternotomy incision. Dressing over right thoracotomy site, chest tube in place with 1+ air leak RESPIRATORY: Decreased BS on right. Subcutaneous emphysema over chest wall. Rhonchi over right lung field, left lung field appears clear with no wheezing or crackles. Right sided chest tube in place with positive air leak GASTROINTESTINAL: Abdomen soft, non-tender, nondistended. No guarding. MUSCULOSKELETAL: Extremities without clubbing, cyanosis, or edema. NEUROLOGICAL: resting comfortably but arousable. no focal deficits. Procedures 11/28/2016 Right Internal Jugular Hemodialysis Catheter Tunneled Placement dual lumen 12/02/2016 Successful right renal biopsy for function. Gelfoam and thrombin utilized. No bleeding on post CT Lung Biopsy 12/23/16. Dialysis 12/24/16. Medications and IVs Current Medications Medications (Trade) Dose Ordered Sig/Edwin Route Start Time Stop Time Status Last Admin (Mag-Al Plus Susp Liq) 30 ml Q6H PRN PO 11/24/16 13:15 (Restoril) 15 mg HS PRN PO 11/24/16 13:15 12/31/16 23:22 (Vitamin D3) 2,000 units DAILY PO 11/25/16 09:15 01/15/17 08:53 (Lactinex) 1 tab Q12HR PO 11/26/16 21:00 01/15/17 08:53 Sodium Chloride 1,000 ml @ 0 mls/hr Q0M PRN OTHER 11/28/16 15:28 12/29/16 16:10 (Heparin Inj) 8,000 units UNSCH PRN IVF 11/28/16 15:30 Future Hold 01/12/17 08:39 Sodium Chloride 1,000 ml @ 200 mls/hr Q5H PRN IV 11/28/16 15:28 Sodium Chloride 1,000 ml @ 0 mls/hr Q0M PRN OTHER 11/28/16 15:28 11/30/16 12:02 (Mannitol Inj) 12.5 gm UNSCH PRN IV 11/28/16 15:30 (Albumin 25% Inj) 25 gm UNSCH PRN IV 11/28/16 15:30 01/12/17 08:39 (NS Flush) 5 ml UNSCH PRN IV FLUSH 11/28/16 15:30 01/11/17 08:35 (Heparin Inj) UNSCH PRN .XX 11/28/16 15:30 01/12/17 08:42 (Gentamicin (Dialysis) Inj) 20 mg UNSCH PRN IV 11/28/16 15:30 01/12/17 08:42 (Zofran Inj) 4 mg UNSCH PRN IV 11/28/16 15:30 (Tylenol) 650 mg UNSCH PRN PO 11/28/16 15:30 12/19/16 13:06 (Benadryl) 25 mg UNSCH PRN PO 11/28/16 15:30 12/19/16 13:06 (Nitrostat Sl) 0.4 mg UNSCH PRN SL 11/28/16 15:30 (Gelfoam 12 Mm/7 Mm Top) 1 foam UNSCH PRN TOP 11/28/16 15:30 (NS Flush) UNSCH PRN IVF 11/28/16 18:15 (Heparin Inj) UNSCH PRN IV FLUSH 11/28/16 18:15 Future Hold (Duoneb Neb) 1 ampule Q4HR NEB PRN NEB 11/29/16 12:30 12/31/16 15:54 (Benadryl) 25 mg Q8H PRN PO 11/30/16 10:00 12/31/16 23:23 (Renvela) 1,600 mg TIDAC PO 12/03/16 17:00 01/15/17 08:47 (Robitussin Ac 200-20 Mg/10 ml Liq) 10 ml Q6H PRN PO 12/15/16 14:00 01/05/17 02:24 (Epogen Inj) 10,000 units UNSCH PRN IV 12/17/16 09:30 01/12/17 08:40 (Epogen Inj) 4,000 units UNSCH PRN IV 12/17/16 09:45 01/07/17 10:56 (Cepacol Extra Elenita (Sugar Free)) 1 lozenge Q2HR PRN BUCCAL 12/23/16 09:00 (Alpine 5-325 Mg) 1 tab Q4H PRN PO 12/25/16 09:15 01/14/17 17:49 (Ferrous Sulfate) 325 mg BID@12,17 PO 12/29/16 12:00 01/14/17 17:48 (Vitamin C) 500 mg BID@1200,1700 PO 12/29/16 12:00 01/14/17 17:48 (Symbicort 160-4.5 Inh) 1 puff Q12HR INH 12/30/16 21:00 Future Hold (Albuterol Neb) 2.5 mg Q2HR NEB PRN NEB 12/30/16 16:45 01/07/17 23:47 (Pulmicort Respule Neb) 0.5 mg BID NEB NEB 12/30/16 20:00 01/15/17 09:35 (NS Flush) 2 ml BID IV FLUSH 12/30/16 21:00 01/15/17 08:53 (NS Flush) 2 ml UNSCH PRN IV FLUSH 12/30/16 16:45 (Protonix) 40 mg HS PO 12/30/16 21:00 01/14/17 21:08 (Zofran Inj) 4 mg Q6H PRN IV PUSH 12/30/16 16:45 (Milk Of Magnesia Liq) 30 ml DAILY PRN PO 12/30/16 16:45 (Tylenol) 650 mg Q4H PRN PO 12/30/16 16:45 (Colace) 100 mg BID PO 12/31/16 10:00 01/15/17 08:53 (Miralax) 17 gm DAILY PO 12/31/16 10:00 01/08/17 09:27 (Lovenox Inj) 30 mg EVERY OTHER DAY SQ 01/05/17 15:00 01/15/17 08:55 (fentaNYL INJ) 25 mcg Q4H PRN IV PUSH 01/06/17 14:45 01/07/17 13:00 (Alpine 5-325 Mg) 2 tab Q4H PRN PO 01/06/17 14:45 01/15/17 09:01 (Pill Splitter) 1 ea UNSCH PRN OTHER 01/08/17 19:15 (Deltasone) 10 mg DAILY PO 01/13/17 09:00 01/15/17 08:53 A/P Problem List: (1) Sepsis ICD Code: A41.9 - Sepsis, unspecified organism Status: Resolved (2) Acute renal failure ICD Code: N17.9 - Acute kidney failure, unspecified Status: Resolved (3) Pneumonia ICD Code: J18.9 - Pneumonia, unspecified organism Status: Resolved (4) Coronary artery disease ICD Code: I25.10 - Coronary artery disease Status: Chronic (5) Anemia ICD Code: D64.9 - Anemia Status: Chronic (6) Hematochezia ICD Code: K92.1 - Melena Status: Resolved (7) Hypokalemia ICD Code: E87.6 - Hypokalemia Status: Resolved (8) Chronic kidney disease, stage 5 ICD Code: N18.5 - Chronic kidney disease, stage 5 Status: Chronic (9) AVF (arteriovenous fistula) ICD Code: I77.0 - Arteriovenous fistula, acquired Assessment and Plan Mr. Fonseca is a 55-year-old male patient with a known medical history of CAD s/ p CABG and CKD who presented to the ED with complaints of increasing dyspnea, generalized weakness, fevers and frequent diaphoresis x 2 weeks. Sepsis on admission suspect secondary to right multilobular pneumonia-resolved Dense cavitary pneumonia of the right lung - Pulmonary consulted and following. - Completed cefepime 1 g every 12 hours on 12/06/16 - Cardiothoracic Surgery and ID consulted. - Negative Aspergillus titers. Chronic obstructive pulmonary disease Acute Respiratory failure Extensive right lung pneumonia with cavitation - CT chest 11/26 dense consolidative right upper lobe pneumonia with severe emphysema with cavitary foci within the consolidated areas, patchy right middle and lower lobe pneumonia - Pulmonary following - RUL BAL 12/05 negative for malignant cells - CT guided bx 12/23 negative for fungus, AFB or malignancy. Substantial fibrosis noted. - Sputum culture negative. Bronchial cultures negative. Negative Aspergillus titers. - Continue scheduled and PRN duonebs. - Continue Robitussin Ac prn cough - Supplemental O2 to keep sats >88%. - Patient sp right thoracotomy, lysis of adhesions, decortication, pleural biopsy on 12/30. - 01/15 Patient on high flow nasal cannula. Patient was transitioned from February with a mask. 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 Pulmonary following. Awaiting transfer to [facility] for evaluation by interventional pulmonary for management of persistent air leak. 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 ESRD on Hemodyalisis - Per nephrology will need half-way dialysis (MWF). - Patient underwent AV fistula surgery on 12/10/2016. However, patient may need AV graft. - US kidney/renal/bladder ordered and reviewed showing mild pelvocaliectasis right kidney. 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 Continue to monitor BUN/ creatinine, strict I's and O's and avoid nephrotoxins. Normochromic, normocytic anemia suspect secondary to acute blood loss/ hematochezia - Transfused total of 6 PRBCs since admission, and transfuse for HgB<7.0 - Continue Protonix 40 mg twice a day - EGD/Colonoscopy on 12/18/2016 - No major findings, no bleeding source. May need capsule endoscopy as outpt. GI has signed off. - Hgb 7.0 on 12/24, repeat H&H. Transfuse is 7.0 or less. - Epogen per Nephrology - 01/15 Hemoglobin stable at 8.1. Continue to monitor CBC Hyperkalemia - 12/31 sp IV insulin + D50 and Kayexalate. Repeat BMP. - Resolved. COPD Exacerbation - Sp treatment with IV steroids an po Levaquin, now on prednisone taper as per pulmonology. Full code. DVT Prophylaxis: SCDs/TEDs., Ambulation. discussed with RN. Discharge Planning Patient awaiting transfer to [facility]. Problem Qualifiers (1) Sepsis: (2) Acute renal failure: Qualified Codes: N17.8 - Other acute kidney failure (3) Pneumonia: Qualified Codes: J18.1 - Lobar pneumonia, unspecified organism (4) Coronary artery disease: Qualified Codes: I25.119 - Atherosclerotic heart disease of [place] coronary artery with unspecified angina pectoris (5) Anemia: Qualified Codes: N18.5 - Chronic kidney disease, stage 5; D63.1 - Anemia in chronic kidney disease Juanjo Rush MD Jan 15, 2017 11:54
[2017-01-15] MEDS: ASCORBIC ACID 500 MG TAB PO SCH ×2 (12:14→16:21)
[2017-01-15] MEDS: FERROUS SULFATE 325 MG (65 MG ELEMENTAL IRON) TAB PO SCH ×2 (12:14→16:21)
--- NOTE | 2017-01-15 15:26 | PD.CAR.PN ---
CVT Progress Note Subjective/Hospital Course: ct guided lung bx / no fungal elements Dr Claire Lott requesting re-eval for possible thoractomy discussed with pt right thoracotomy for pulmonary resection Dr Roth will discuss further with pt on Thursday tentatively scheduled for case 12/29 Dr Roth discussed surgery / risks / procedure with pt / he ia agreeable to proceed for surgery in am 12/30 Right thoracotomy with VATS assist, lysis of adhesions, decortication, pleural biopsies and cultures, right upper lobe biopsies and cultures Right upper lobe resection was considered, but not technically feasible due to the dense consolidation, inflammation, and frozen hilum associated. 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, [employer] dosing increase with breakthrough fentanly IV will need PT/ OOB ambulate pulm toileting path cultures pending 12/31 path and cultures pending 01/01 path pending no growth in cultures to date pain control improved, has ONQ pump and morphine [employer] on GI motility meds ambulate/ OOB + 1 air leak in chest tube 01/02 now with +4 air leak + subq emphysema to right chest ONQ pump dc dressing removed / right chest tube site eval, no air air out of skin, reinforced with vaseline gauze no change in air leak remains on 01/03/17 Continues with impressive air leak and SQ emphysema. Denies dyspnea and comfortable 01/04/17 Persistent large air leak. No complaints otherwise 01/05/17 c/o pain related to chest tube site and pleuritic irritation. air leak a little better this morning. PATH still pending from biopsies submitted at the time of surgery last week. 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, prn norco for pain / breakthrough fentanly 10/ persistent air leak +4 subq emphysema improving to chest still get very SOB with any exertion receiving dialysis at this time pain controlled 10/5 pt remains in CVICU was on high flow last pm 25liters no further air leak noted in chest tube chamber, less subq emphysema noted pt encouraged to ask for pain meds to improve pulm toileting chest xray, no PTX path pending , will get pt OOB to chair appreciate CCM 10/6 pt now with recurrent air leak + 4-5, remains at 30cm suction cxr noted, + subq emphysema , some consolidation right perihilar region wean high flow 02 slowly , now at 20 liters / 60% fi02 OOB to chair as tolerated pain control, s/p dialysis today 01/11 Persistent air-leak Vitals stable Continue CT. Dr. Roth to determine further therapy 01/12 was still on 45% F102, 30 liters high flow [address] Roth and Dr Mackay recommend transferring pt to tertiary center for broncho fistula closure Pulm accepting Dr Cody Lopez, Hospitalist Dr Palmer await accepting bed at this time will try to wean to 100% NRB to see if pt tolerates OOB today after dialysis 01/13 discharge summary done , see dictation 01/14 still waiting on bed at [facility] still has + 5 air leak now on 4 liter nasal cannula dialysis today 01/15 still waiting on bed at [facility] + 5 air leak, some chest soreness tolerating 02 at 5 liters Objective: GENERAL: SKIN: Warm and dry. HEAD: Normocephalic. EYES: No scleral icterus. No injection or drainage. NECK: Supple, trachea midline. No JVD or lymphadenopathy. CARDIOVASCULAR: Regular rate and rhythm without murmurs, gallops, or rubs. RESPIRATORY: Breath sounds equal bilaterally. No accessory muscle use. chest tube right lateral chest , + 5 air leak GASTROINTESTINAL: Abdomen soft, non-tender, nondistended. MUSCULOSKELETAL: No cyanosis, or edema. BACK: Nontender without obvious deformity. No CVA tenderness. Vital Signs Date Time Temp Pulse Resp B/P (MAP) Pulse Ox O2 Delivery O2 Flow Rate FiO2 01/15/17 15:00 100 Nasal Cannula 5.00 01/15/17 15:00 90 01/15/17 15:00 98.3 18 16 102/66 (78) 100 01/15/17 14:00 100 01/15/17 13:00 95 01/15/17 12:00 98 01/15/17 11:00 101 01/15/17 11:00 97.8 16 16 92/61 (71) 96 01/15/17 11:00 96 Nasal Cannula 5.00 01/15/17 10:10 16 01/15/17 10:00 98 01/15/17 09:35 93 Nasal Cannula 6.00 01/15/17 09:00 90 01/15/17 07:00 97.3 16 16 110/71 (84) 01/15/17 07:00 95 Nasal Cannula 5.00 01/15/17 07:00 96 01/15/17 06:10 90 01/15/17 05:07 87 01/15/17 04:01 88 01/15/17 03:46 98.5 101 17 93/59 (70) 94 01/15/17 03:46 95 Nasal Cannula 5.00 01/15/17 03:46 85 01/15/17 02:15 83 01/15/17 01:20 84 01/15/17 00:10 90 01/14/17 23:44 98 Nasal Cannula 5.00 01/14/17 23:44 98.7 94 18 101/65 (77) 95 01/14/17 23:15 96 01/14/17 22:30 89 01/14/17 21:10 96 01/14/17 20:30 98 01/14/17 19:50 100 Nasal Cannula 5.00 01/14/17 19:50 98.6 101 18 98/63 (75) 100 01/14/17 19:50 103 01/14/17 19:48 95 Nasal Cannula 5.00 01/14/17 18:31 18 01/14/17 18:11 105 01/14/17 17:02 95 01/14/17 16:00 104 Labs: Laboratory Tests Test 01/15/17 04:44 White Blood Count 9.7 TH/MM3 (4.0-11.0) Red Blood Count 2.73 MIL/MM3 (4.50-5.90) Hemoglobin 8.1 GM/DL (13.0-17.0) Hematocrit 25.2 % (39.0-51.0) Mean Corpuscular Volume 92.3 FL (80.0-100.0) Mean Corpuscular Hemoglobin 29.7 PG (27.0-34.0) Mean Corpuscular Hemoglobin Concent 32.1 % (32.0-36.0) Red Cell Distribution Width 16.5 % (11.6-17.2) Platelet Count 298 TH/MM3 (150-450) Mean Platelet Volume 8.5 FL (7.0-11.0) Blood Urea Nitrogen 41 MG/DL (7-18) Creatinine 3.80 MG/DL (0.60-1.30) Random Glucose 83 MG/DL (74-106) Calcium Level 8.9 MG/DL (8.5-10.1) Sodium Level 138 MEQ/L (136-145) Potassium Level 3.7 MEQ/L (3.5-5.1) Chloride Level 97 MEQ/L (98-107) Carbon Dioxide Level 31.7 MEQ/L (21.0-32.0) Anion Gap 9 MEQ/L (5-15) Estimat Glomerular Filtration Rate 17 ML/MIN (>89) Result Diagram: 01/15/1744301/15/17443 (1) Pulmonary infiltrate in right lung on chest x-ray Plan: pulm toileting nebs, ezpap OOB ambulate consult PT path pending keep chest tube to 20cm suction now on 4 liters 02 transfer to [facility] Dr Lopez, pulmonary medicine , when bed available (2) Pneumonia Plan: post ABX/ ID signed off (3) Right thoracotomy with VATS assist, lysis of adhesions, decortication, pleural biopsies Plan: path organizing PNA, BOOP bronchiolitis obliterans organizing pneumonia , parenchymal fibrosis low dose steroids Problem Qualifiers (1) Pneumonia: Qualified Codes: J18.1 - Lobar pneumonia, unspecified organism Marly Heart Jan 15, 2017 15:26
[2017-01-15] MEDS: PANTOPRAZOLE SOD 40 MG DELAYED RELEASE TAB PO SCH (20:28)
[2017-01-16] VITALS (26 sets, daily range): BP systolic 108–135; BP diastolic 71–80; PULSE 5–108; RESP 16–18; TEMP 98–98.6; O2SAT 94–97
[2017-01-16 04:51] LABS: HEMATOCRIT 21.7 % (39.0-51.0); MEAN CORPUSCULAR HEMOGLOBIN 30.4 PG (27.0-34.0); PLATELET COUNT 260 TH/MM3 (150-450); RED BLOOD COUNT 2.36 MIL/MM3 (4.50-5.90); RED CELL DISTRIBUTION WIDTH 16.4 % (11.6-17.2); REVIEW FLAG FINAL
[2017-01-16 05:28] LABS: BICARBONATE 30.3 MEQ/L (21.0-32.0); POTASSIUM 3.4 MEQ/L (3.5-5.1)
[2017-01-16] MEDS: SEVELAMER CARBONATE 800 MG TAB PO SCH ×3 (08:00→16:10)
[2017-01-16] MEDS: ALBUMIN HUMAN 25% 25 GM/100 ML BAGP IV PRN (08:38)
[2017-01-16] MEDS: GENTAMICIN SULFATE (DIALYSIS USE ONLY) 20 MG/2 ML VIAL IV PRN (08:39)
[2017-01-16] MEDS: CHOLECALCIFEROL (VIT D3) 1000 UNIT TAB PO SCH (09:00)
[2017-01-16] MEDS: SODIUM CHLORIDE 0.9% FLUSH 5 ML FLUSH IV FLUSH SCH ×2 (09:00→21:00)
[2017-01-16] MEDS: POLYETHYLENE GLYCOL 17 GM PKG PO SCH (09:00)
[2017-01-16] MEDS: LACTOBACILLUS ACIDOPHILUS TAB PO SCH ×2 (09:00→21:45)
[2017-01-16] MEDS: DOCUSATE SODIUM 100 MG CAP PO SCH ×2 (09:00→21:45)
--- NOTE | 2017-01-16 09:02 | HHI.NPPN ---
Subjective General Problems: Anemia Renal Failure: Acute Interval History Seen during dialysis. Hypokalemic with worsening anemia, due for blood transfusion today. No bed available at [facility] as of yet. (Milla Pack) Review of Systems General Constitutional: Fatigue (Milla Pack) Respiratory Lungs: SOB, Cough, Sputum (Milla Pack) Musculoskeletal MS: Pain/Stiffness (Milla Pack) Objective Data Data Vital Signs Date Time Temp Pulse Resp B/P (MAP) Pulse Ox O2 Delivery O2 Flow Rate FiO2 01/16/17 08:24 95 Nasal Cannula 5.00 01/16/17 08:00 87 01/16/17 07:00 96 Nasal Cannula 4.00 01/16/17 07:00 98.6 89 16 117/76 (90) 96 01/16/17 07:00 89 01/16/17 06:00 91 01/16/17 05:00 94 01/16/17 04:00 102 01/16/17 03:00 95 01/16/17 03:00 95 Nasal Cannula 4.50 01/16/17 03:00 98.3 102 18 114/73 (87) 95 01/16/17 02:00 100 01/16/17 01:00 95 01/16/17 00:00 95 01/15/17 23:05 Nasal Cannula 4.50 01/15/17 23:00 97.7 94 18 92/59 (70) 98 01/15/17 23:00 98 Nasal Cannula 5.00 01/15/17 23:00 100 01/15/17 22:00 103 01/15/17 21:00 98 01/15/17 20:25 Nasal Cannula 5.00 01/15/17 20:20 98 Nasal Cannula 6.00 01/15/17 20:20 91 18 124/79 (94) 98 01/15/17 20:00 96 01/15/17 19:00 91 01/15/17 18:00 96 01/15/17 17:00 93 01/15/17 16:00 94 01/15/17 15:00 100 Nasal Cannula 5.00 01/15/17 15:00 90 01/15/17 15:00 98.3 18 16 102/66 (78) 100 01/15/17 14:00 100 01/15/17 13:00 95 01/15/17 12:00 98 01/15/17 11:00 101 01/15/17 11:00 97.8 16 16 92/61 (71) 96 01/15/17 11:00 96 Nasal Cannula 5.00 01/15/17 10:10 16 01/15/17 10:00 98 01/15/17 09:35 93 Nasal Cannula 6.00 01/15/17 09:00 90 (Milla Pack) -: 01/16/17 0422 01/16/17 0422 Tubes & Lines: Perma-Cath Tubes & Lines Comment chest tube right. (Milla Pack) Physical Exam General Appearance: No Acute Distress, Comfortable, Pale, Malnourished (Milla Pakc) Eyes Eye Exam: Pupils Equal, Pupils Reactive (Milla Pack) Throat Throat Exam: Oral Mucosa [place] & Moist (Milla Pack) Neck Neck Exam: Neck Supple (Milla Pack) Pulmonary Resp Exam: No Distress, Crackles, Rhonchi, Decreased Bases Resp Remarks course right side lung sounds; chest tube right subcutaneous air right arm, other areas of truck and abdomen mostly resolved (Milla Pack) Cardiology CV Exam: Regular, Normal Sinus Rhythm, Good Perfusion (Milla Pack) Gastrointestinal/Abdomen GI Exam: Soft, Non-Tender, Bowel Sounds Present, Positive Bowel Movement (Milla Pack) Musculoskeletal MS Exam: Joints Intact, Normal Gait, Normal Tone, Atrophy (Milla Pack) Integumentary Skin Exam: Clear, Warm, Dry, Intact (Milla Pack) Extremeties Extremities Exam: No Edema (Milla Pack) Neurologic Neuro Exam: Alert, Awake, Oriented (Milla Pack) Psychiatric Psych Exam: Appropriate Responses (Milla Pack) Assessment/Plan Discussed Condition With: Patient Assessment Summary: SEJAL/Acute Renal Failure, Anemia of CKD Electrolyte Assessment: Metabolic Acidosis Problem List: (1) Chronic kidney disease, stage 5 ICD Codes: N18.5 - Chronic kidney disease, stage 5 Status: Chronic Plan: Patient likely has reached ESRD. s/p renal biopsy this admission. Seen during dialysis today on a 4K, 350 BFR, goal 2L Continue dialysis support MWF. He is non oliguric Continue nutritional support with meals; on high protein diet AVF creation failed. He will need permanent HD access placed but too unstable currently. To be addressed at a later date. Intermittently obtain metabolic profile (2) Pneumonia ICD Codes: J18.9 - Pneumonia, unspecified organism Status: Resolved Plan: Pulmonary and CTS surgery are following, s/p bronchoscopy and thoracotomy with decortication Biopsy negative for pulmonary aspergillus fungal ball in right lung s/p right thoracotomy 12/30 with chest tube placement; had air leak that CTS is managing with pulmonary Concerns for bronchopleural fistula, needs surgical correction; To be transferred to [facility]. Awaiting bed placement Serial chest xrays have been taken. (3) Hypokalemia ICD Codes: E87.6 - Hypokalemia Status: Resolved Plan: previously thought to have a proximal renal tubular disorder off daily replacement Adjust dialysate as needed Follow BMP (4) Hypocalcemia ICD Codes: E83.51 - Hypocalcemia Plan: Continue to treat hyperphosphatemia, on Sevelamer with meals. (5) Anemia ICD Codes: D64.9 - Anemia Status: Chronic Plan: Transfuse as needed, one unit ordered for transfusion 01/16 Continue high dose of Epogen with dialysis. Check CBC intermittently; goal Hb > 7 (6) Acidosis ICD Codes: E87.2 - Acidosis Status: Acute Plan: corrected with dialysis , monitor (7) GI bleed ICD Codes: K92.2 - Gastrointestinal hemorrhage, unspecified Status: Acute Plan: GI has signed off; s/p EGD/colonoscopy may need capsule endoscopy outpatient (Milla Pack) Plan patient was seen and examined. Agree with above assessment and plan. Apparently there is a plan to transfer him to [facility] for repair of bronchopleural fistula, but he is waiting for bed availability. (Jim Zuluaga MD) Problem Qualifiers (1) Pneumonia: Qualified Codes: J18.1 - Lobar pneumonia, unspecified organism (2) Anemia: Qualified Codes: N18.5 - Chronic kidney disease, stage 5; D63.1 - Anemia in chronic kidney disease (3) GI bleed: Milla Pack Jan 16, 2017 09:02 Jim Zuluaga MD Jan 16, 2017 16:22
[2017-01-16 10:24] LABS: MAGNESIUM 2.9 MG/DL (1.5-2.5)
[2017-01-16] MEDS ORDERED: POTASSIUM CHLORIDE 20 MEQ CONTROLLED RELEASE TAB PO ONE (10:45)
[2017-01-16] MEDS: ACETAMINOPHEN/HYDROcodone 325 MG/5 MG TAB PO PRN ×2 (11:24→16:11)
--- NOTE | 2017-01-16 11:54 | HHI.PR ---
Subjective Remarks Patient seen during hemodialysis. Next and the patient complains of right- sided neck pain and right-sided shoulder pain. Denies chest pain or shortness of breath This and still has a leak of +5 Denies cough, denies fevers or chills Objective Vitals Vital Signs Date Time Temp Pulse Resp B/P (MAP) Pulse Ox O2 Delivery O2 Flow Rate FiO2 01/16/17 08:24 95 Nasal Cannula 5.00 01/16/17 08:00 87 01/16/17 07:00 96 Nasal Cannula 4.00 01/16/17 07:00 98.6 89 16 117/76 (90) 96 01/16/17 07:00 89 01/16/17 06:00 91 01/16/17 05:00 94 01/16/17 04:00 102 01/16/17 03:00 95 01/16/17 03:00 95 Nasal Cannula 4.50 01/16/17 03:00 98.3 102 18 114/73 (87) 95 01/16/17 02:00 100 01/16/17 01:00 95 01/16/17 00:00 95 01/15/17 23:05 Nasal Cannula 4.50 01/15/17 23:00 97.7 94 18 92/59 (70) 98 01/15/17 23:00 98 Nasal Cannula 5.00 01/15/17 23:00 100 01/15/17 22:00 103 01/15/17 21:00 98 01/15/17 20:25 Nasal Cannula 5.00 01/15/17 20:20 98 Nasal Cannula 6.00 01/15/17 20:20 91 18 124/79 (94) 98 01/15/17 20:00 96 01/15/17 19:00 91 01/15/17 18:00 96 01/15/17 17:00 93 01/15/17 16:00 94 01/15/17 15:00 100 Nasal Cannula 5.00 01/15/17 15:00 90 01/15/17 15:00 98.3 18 16 102/66 (78) 100 01/15/17 14:00 100 01/15/17 13:00 95 01/15/17 12:00 98 I/O 01/15/17 01/15/17 01/15/17 01/16/17 01/16/1717 07:00 15:00 23:00 07:00 15:00 23:00 Intake Total 360 ml 550 ml 500 ml 5050 ml Output Total 365 ml 590 ml 831 ml 1300 ml Balance -5 ml -40 ml -331 ml 3750 ml Intake Oral 360 ml 550 ml 500 ml IV Total 0 ml Packed Cells 800 ml Blood Product IV Normal Saline Flush 4250 ml Output Urine Total 225 ml 500 ml 625 ml Chest Tube Drainage Total 140 ml 90 ml 206 ml Hemodialysis 1300 ml # Bowel Movements 0 0 Result Diagram: 01/16/1742101/16/17421 Objective Remarks GENERAL: cachectic appearing middle-aged male, lying in bed, resting. on nonrebreather facemask SKIN: No rashes, ecchymoses or lesions. Cool and dry. HEAD: Atraumatic. Normocephalic. No temporal or scalp tenderness. EYES: Pupils equal round and reactive. Pallor present. No scleral icterus. No injection or drainage. ENT: Nose without bleeding, purulent drainage or septal hematoma. Airway patent. NECK: Trachea midline. No JVD CARDIOVASCULAR: Regular rate and rhythm. Well-healed sternotomy incision. Dressing over right thoracotomy site, chest tube in place with 1+ air leak RESPIRATORY: Decreased BS on right. Subcutaneous emphysema over chest wall. Rhonchi over right lung field, left lung field appears clear with no wheezing or crackles. Right sided chest tube in place with positive air leak GASTROINTESTINAL: Abdomen soft, non-tender, nondistended. No guarding. MUSCULOSKELETAL: Extremities without clubbing, cyanosis, or edema. There is tenderness to palpation over the right trapezius muscle. NEUROLOGICAL: Awake alert and oriented 3. Muscle strength 5/5 in all extremities. Speech normal. Procedures 11/28/2016 Right Internal Jugular Hemodialysis Catheter Tunneled Placement dual lumen 12/02/2016 Successful right renal biopsy for function. Gelfoam and thrombin utilized. No bleeding on post CT Lung Biopsy 12/23/16. Dialysis 12/24/16. Medications and IVs Current Medications Medications (Trade) Dose Ordered Sig/Edwin Route Start Time Stop Time Status Last Admin (Mag-Al Plus Susp Liq) 30 ml Q6H PRN PO 11/24/16 13:15 (Restoril) 15 mg HS PRN PO 11/24/16 13:15 12/31/16 23:22 (Vitamin D3) 2,000 units DAILY PO 11/25/16 09:15 01/15/17 08:53 (Lactinex) 1 tab Q12HR PO 11/26/16 21:00 01/15/17 20:28 Sodium Chloride 1,000 ml @ 0 mls/hr Q0M PRN OTHER 11/28/16 15:28 12/29/16 16:10 (Heparin Inj) 8,000 units UNSCH PRN IVF 11/28/16 15:30 Future Hold 01/12/17 08:39 Sodium Chloride 1,000 ml @ 200 mls/hr Q5H PRN IV 11/28/16 15:28 Sodium Chloride 1,000 ml @ 0 mls/hr Q0M PRN OTHER 11/28/16 15:28 11/30/16 12:02 (Mannitol Inj) 12.5 gm UNSCH PRN IV 11/28/16 15:30 (Albumin 25% Inj) 25 gm UNSCH PRN IV 11/28/16 15:30 01/16/17 08:38 (NS Flush) 5 ml UNSCH PRN IV FLUSH 11/28/16 15:30 01/11/17 08:35 (Heparin Inj) UNSCH PRN .XX 11/28/16 15:30 01/12/17 08:42 (Gentamicin (Dialysis) Inj) 20 mg UNSCH PRN IV 11/28/16 15:30 01/16/17 08:39 (Zofran Inj) 4 mg UNSCH PRN IV 11/28/16 15:30 (Tylenol) 650 mg UNSCH PRN PO 11/28/16 15:30 12/19/16 13:06 (Benadryl) 25 mg UNSCH PRN PO 11/28/16 15:30 12/19/16 13:06 (Nitrostat Sl) 0.4 mg UNSCH PRN SL 11/28/16 15:30 (Gelfoam 12 Mm/7 Mm Top) 1 foam UNSCH PRN TOP 11/28/16 15:30 (NS Flush) UNSCH PRN IVF 11/28/16 18:15 (Heparin Inj) UNSCH PRN IV FLUSH 11/28/16 18:15 Future Hold (Duoneb Neb) 1 ampule Q4HR NEB PRN NEB 11/29/16 12:30 12/31/16 15:54 (Benadryl) 25 mg Q8H PRN PO 11/30/16 10:00 12/31/16 23:23 (Renvela) 1,600 mg TIDAC PO 12/03/16 17:00 01/15/17 16:22 (Robitussin Ac 200-20 Mg/10 ml Liq) 10 ml Q6H PRN PO 12/15/16 14:00 01/05/17 02:24 (Epogen Inj) 10,000 units UNSCH PRN IV 12/17/16 09:30 01/12/17 08:40 (Epogen Inj) 4,000 units UNSCH PRN IV 12/17/16 09:45 01/07/17 10:56 (Cepacol Extra Elenita (Sugar Free)) 1 lozenge Q2HR PRN BUCCAL 12/23/16 09:00 ([place] 5-325 Mg) 1 tab Q4H PRN PO 12/25/16 09:15 01/15/17 23:15 (Ferrous Sulfate) 325 mg BID@,17 PO 12/29/16 12:00 01/15/17 16:21 (Vitamin C) 500 mg BID@1200,1700 PO 12/29/16 12:00 01/15/17 16:21 (Symbicort 160-4.5 Inh) 1 puff Q12HR INH 12/30/16 21:00 Future Hold (Albuterol Neb) 2.5 mg Q2HR NEB PRN NEB 12/30/16 16:45 01/07/17 23:47 (Pulmicort Respule Neb) 0.5 mg BID NEB NEB 12/30/16 20:00 01/15/17 20:16 (NS Flush) 2 ml BID IV FLUSH 12/30/16 21:00 01/15/17 20:29 (NS Flush) 2 ml UNSCH PRN IV FLUSH 12/30/16 16:45 (Protonix) 40 mg HS PO 12/30/16 21:00 01/15/17 20:28 (Zofran Inj) 4 mg Q6H PRN IV PUSH 12/30/16 16:45 (Milk Of Magnesia Liq) 30 ml DAILY PRN PO 12/30/16 16:45 (Tylenol) 650 mg Q4H PRN PO 12/30/16 16:45 (Colace) 100 mg BID PO 12/31/16 10:00 01/15/17 08:53 (Miralax) 17 gm DAILY PO 12/31/16 10:00 01/08/17 09:27 (Lovenox Inj) 30 mg EVERY OTHER DAY SQ 01/05/17 15:00 01/15/17 08:55 (fentaNYL INJ) 25 mcg Q4H PRN IV PUSH 01/06/17 14:45 01/07/17 13:00 ([place] 5-325 Mg) 2 tab Q4H PRN PO 01/06/17 14:45 01/16/17 11:24 (Pill Splitter) 1 ea UNSCH PRN OTHER 01/08/17 19:15 (Deltasone) 10 mg DAILY PO 01/13/17 09:00 01/15/17 08:53 A/P Problem List: (1) Sepsis ICD Code: A41.9 - Sepsis, unspecified organism Status: Resolved (2) Acute renal failure ICD Code: N17.9 - Acute kidney failure, unspecified Status: Resolved (3) Pneumonia ICD Code: J18.9 - Pneumonia, unspecified organism Status: Resolved (4) Coronary artery disease ICD Code: I25.10 - Coronary artery disease Status: Chronic (5) Anemia ICD Code: D64.9 - Anemia Status: Chronic (6) Hematochezia ICD Code: K92.1 - Melena Status: Resolved (7) Hypokalemia ICD Code: E87.6 - Hypokalemia Status: Resolved (8) Chronic kidney disease, stage 5 ICD Code: N18.5 - Chronic kidney disease, stage 5 Status: Chronic (9) AVF (arteriovenous fistula) ICD Code: I77.0 - Arteriovenous fistula, acquired Status: Chronic (10) Right thoracotomy with VATS assist, lysis of adhesions, decortication, pleural biopsies Status: Acute (11) Neck pain on right side ICD Code: M54.2 - Cervicalgia Plan: Neck pain likely musculoskeletal. The patient is tender to palpation of the trapezius muscle on the right side. I will order a muscle relaxant. Continue [place] for pain control. Assessment and Plan Mr. Fonseca is a 55-year-old male patient with a known medical history of CAD s/ p CABG and CKD who presented to the ED with complaints of increasing dyspnea, generalized weakness, fevers and frequent diaphoresis x 2 weeks. Sepsis on admission suspect secondary to right multilobular pneumonia-resolved Dense cavitary pneumonia of the right lung - Pulmonary consulted and following. - Completed cefepime 1 g every 12 hours on 12/06/16 - Cardiothoracic Surgery and ID consulted. - Negative Aspergillus titers. Chronic obstructive pulmonary disease Acute Respiratory failure Extensive right lung pneumonia with cavitation - CT chest 11/26 dense consolidative right upper lobe pneumonia with severe emphysema with cavitary foci within the consolidated areas, patchy right middle and lower lobe pneumonia - Pulmonary following - RUL BAL 12/05 negative for malignant cells - CT guided bx 12/23 negative for fungus, AFB or malignancy. Substantial fibrosis noted. - Sputum culture negative. Bronchial cultures negative. Negative Aspergillus titers. - Continue scheduled and PRN duonebs. - Continue Robitussin Ac prn cough - Supplemental O2 to keep sats >88%. - Patient sp right thoracotomy, lysis of adhesions, decortication, pleural biopsy on 12/30. -Patient on high flow nasal cannula. Patient was transitioned from February with a mask. 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 Pulmonary following. Awaiting transfer to [facility] for evaluation by interventional pulmonary for management of persistent air leak. 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 ESRD on Hemodyalisis - Per nephrology will need custodial dialysis (MWF). - Patient underwent AV fistula surgery on 12/10/2016. However, patient may need AV graft. - US kidney/renal/bladder ordered and reviewed showing mild pelvocaliectasis right kidney. 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 Continue to monitor BUN/ creatinine, strict I's and O's and avoid nephrotoxins. Normochromic, normocytic anemia suspect secondary to acute blood loss/ hematochezia - Transfused total of 6 PRBCs since admission, and transfuse for HgB<7.0 - Continue Protonix 40 mg twice a day - EGD/Colonoscopy on 12/18/2016 - No major findings, no bleeding source. May need capsule endoscopy as outpt. GI has signed off. - Hgb 7.0 on 12/24, repeat H&H. Transfuse is 7.0 or less. - Epogen per Nephrology - 01/15 Hemoglobin stable at 8.1. Continue to monitor CBC - 01/16 11 dropped down to 7.2. No obvious signs of bleeding. Transfuse 1 unit of packed blood cells. Continue to monitor CBC. The case was discussed with the cardiothoracic PA. Hyperkalemia - 12/31 sp IV insulin + D50 and Kayexalate. Repeat BMP. - Resolved. COPD Exacerbation - Sp treatment with IV steroids an po Levaquin, now on prednisone taper as per pulmonology. Full code. DVT Prophylaxis: SCDs/TEDs., Ambulation. discussed with RN. Discharge Planning Patient awaiting transfer to [facility]. Problem Qualifiers (1) Sepsis: (2) Acute renal failure: Qualified Codes: N17.8 - Other acute kidney failure (3) Pneumonia: Qualified Codes: J18.1 - Lobar pneumonia, unspecified organism (4) Coronary artery disease: Qualified Codes: I25.119 - Atherosclerotic heart disease of [place] coronary artery with unspecified angina pectoris (5) Anemia: Qualified Codes: N18.5 - Chronic kidney disease, stage 5; D63.1 - Anemia in chronic kidney disease Juanjo Rush MD Jan 16, 2017 11:54
[2017-01-16] MEDS: predniSONE 10 MG TAB PO SCH (12:50)
[2017-01-16] MEDS: ASCORBIC ACID 500 MG TAB PO SCH ×2 (12:50→16:12)
[2017-01-16] MEDS: FERROUS SULFATE 325 MG (65 MG ELEMENTAL IRON) TAB PO SCH ×2 (12:50→16:11)
--- NOTE | 2017-01-16 14:13 | PD.CAR.PN ---
CVT Progress Note Subjective/Hospital Course: ct guided lung bx / no fungal elements Dr Claire Lott requesting re-eval for possible thoractomy discussed with pt right thoracotomy for pulmonary resection Dr Roth will discuss further with pt on Thursday tentatively scheduled for case 12/29 Dr Roth discussed surgery / risks / procedure with pt / he ia agreeable to proceed for surgery in am 12/30 Right thoracotomy with VATS assist, lysis of adhesions, decortication, pleural biopsies and cultures, right upper lobe biopsies and cultures Right upper lobe resection was considered, but not technically feasible due to the dense consolidation, inflammation, and frozen hilum associated. 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 Denies dyspnea and comfortable 01/04/17 Persistent large air leak. No complaints otherwise 01/05/17 c/o pain related to chest tube site and pleuritic irritation. air leak a little better this morning. PATH still pending from biopsies submitted at the time of surgery last week. 01/06/17 still has extensive air leak ct to 20cm suction + sub q emphysema bilateral anterior chest wall and shoulders path pending will dc lung splitter MS, prn norco for pain / breakthrough fentanly 10/ persistent air leak +4 subq emphysema improving to chest still get very SOB with any exertion receiving dialysis at this time pain controlled 10/5 pt remains in CVICU was on high flow last pm 25liters no further air leak noted in chest tube chamber, less subq emphysema noted pt encouraged to ask for pain meds to improve pulm toileting chest xray, no PTX path pending , will get pt OOB to chair appreciate CCM 10/6 pt now with recurrent air leak + 4-5, remains at 30cm suction cxr noted, + subq emphysema , some consolidation right perihilar region wean high flow 02 slowly , now at 20 liters / 60% fi02 OOB to chair as tolerated pain control, s/p dialysis today 01/11 Persistent air-leak Vitals stable Continue CT. Dr. Roth to determine further therapy 01/12 was still on 45% F102, 30 liters high flow [address] Roth and Dr Mackay recommend transferring pt to tertiary center for broncho fistula closure Pulm accepting Dr Cody Lopez, Hospitalist Dr Palmer await accepting bed at this time will try to wean to 100% NRB to see if pt tolerates OOB today after dialysis 01/13 discharge summary done , see dictation 01/14 still waiting on bed at [facility] UF still has + 5 air leak now on 4 liter nasal cannula dialysis today 01/15 still waiting on bed at [facility] + 5 air leak, some chest soreness tolerating 02 at 5 liters 01/16 now on 4.5liters, still with + 5 air leak c/o of right sided chest discomfort still waiting on bed at [facility] in [place] sub q emphysema improved Objective: GENERAL: SKIN: Warm and dry. incision intact right lateral chest wall / chest tube in place to wall suction HEAD: Normocephalic. EYES: No scleral icterus. No injection or drainage. NECK: Supple, trachea midline. No JVD or lymphadenopathy. CARDIOVASCULAR: Regular rate and rhythm without murmurs, gallops, or rubs. RESPIRATORY: Breath sounds equal bilaterally. No accessory muscle use. diminished right lung field GASTROINTESTINAL: Abdomen soft, non-tender, nondistended. MUSCULOSKELETAL: No cyanosis, or edema. BACK: Nontender without obvious deformity. No CVA tenderness. Vital Signs Date Time Temp Pulse Resp B/P (MAP) Pulse Ox O2 Delivery O2 Flow Rate FiO2 01/16/17 14:00 97 01/16/17 13:00 89 01/16/17 12:51 16 01/16/17 12:00 94 01/16/17 11:46 94 Nasal Cannula 4.00 01/16/17 11:46 95 01/16/17 11:46 98.5 5 16 114/71 (85) 94 01/16/17 08:24 95 Nasal Cannula 5.00 01/16/17 08:00 87 01/16/17 07:00 96 Nasal Cannula 4.00 01/16/17 07:00 98.6 89 16 117/76 (90) 96 01/16/17 07:00 89 01/16/17 06:00 91 01/16/17 05:00 94 01/16/17 04:00 102 01/16/17 03:00 95 01/16/17 03:00 95 Nasal Cannula 4.50 01/16/17 03:00 98.3 102 18 114/73 (87) 95 01/16/17 02:00 100 01/16/17 01:00 95 01/16/17 00:00 95 01/15/17 23:05 Nasal Cannula 4.50 01/15/17 23:00 97.7 94 18 92/59 (70) 98 01/15/17 23:00 98 Nasal Cannula 5.00 01/15/17 23:00 100 01/15/17 22:00 103 01/15/17 21:00 98 01/15/17 20:25 Nasal Cannula 5.00 01/15/17 20:20 98 Nasal Cannula 6.00 01/15/17 20:20 91 18 124/79 (94) 98 01/15/17 20:00 96 01/15/17 19:00 91 01/15/17 18:00 96 01/15/17 17:00 93 01/15/17 16:00 94 01/15/17 15:00 100 Nasal Cannula 5.00 01/15/17 15:00 90 01/15/17 15:00 98.3 18 16 102/66 (78) 100 Labs: Laboratory Tests Test 01/16/17 04:22 White Blood Count 10.0 TH/MM3 (4.0-11.0) Red Blood Count 2.36 MIL/MM3 (4.50-5.90) Hemoglobin 7.2 GM/DL (13.0-17.0) Hematocrit 21.7 % (39.0-51.0) Mean Corpuscular Volume 92.0 FL (80.0-100.0) Mean Corpuscular Hemoglobin 30.4 PG (27.0-34.0) Mean Corpuscular Hemoglobin Concent 33.0 % (32.0-36.0) Red Cell Distribution Width 16.4 % (11.6-17.2) Platelet Count 260 TH/MM3 (150-450) Mean Platelet Volume 8.7 FL (7.0-11.0) Blood Urea Nitrogen 65 MG/DL (7-18) Creatinine 5.09 MG/DL (0.60-1.30) Random Glucose 112 MG/DL (74-106) Calcium Level 8.5 MG/DL (8.5-10.1) Sodium Level 139 MEQ/L (136-145) Potassium Level 3.4 MEQ/L (3.5-5.1) Chloride Level 99 MEQ/L (98-107) Carbon Dioxide Level 30.3 MEQ/L (21.0-32.0) Anion Gap 10 MEQ/L (5-15) Estimat Glomerular Filtration Rate 12 ML/MIN (>89) Phosphorus Level 5.2 MG/DL (2.5-4.9) Magnesium Level 2.9 MG/DL (1.5-2.5) Result Diagram: 01/16/1742101/16/17421 (1) Pulmonary infiltrate in right lung on chest x-ray Plan: pulm toileting nebs, ezpap OOB ambulate consult PT keep chest tube to 20cm suction now on 4 liters [address] [facility] Dr Lopez, pulmonary medicine , when bed available (2) Pneumonia Plan: post ABX/ ID signed off (3) Right thoracotomy with VATS assist, lysis of adhesions, decortication, pleural biopsies Plan: path organizing PNA, BOOP bronchiolitis obliterans organizing pneumonia , parenchymal fibrosis low dose steroids Problem Qualifiers (1) Pneumonia: Qualified Codes: J18.1 - Lobar pneumonia, unspecified organism Marly Heart Jan 16, 2017 14:13
--- NOTE | 2017-01-16 17:28 | HHI.PR ---
Subjective Remarks S/P Right Thoracotomy and right Upper lobe biopsies and Decortication. Has a leak from chest tube. Has SOB at Rest . On o2 at 4 L N/C. C/O Chest pain Has some subcutaneous emphysema. Dialysis done Will go to [facility] for Endo Bronchial valve placement Objective Vital Signs Date Time Temp Pulse Resp B/P (MAP) Pulse Ox O2 Delivery O2 Flow Rate FiO2 01/16/17 17:24 17 01/16/17 17:00 88 01/16/17 16:00 90 01/16/17 15:00 98.0 108 16 118/77 (91) 95 01/16/17 15:00 95 Nasal Cannula 4.00 01/16/17 15:00 108 01/16/17 14:00 97 01/16/17 13:00 89 01/16/17 12:00 94 01/16/17 11:46 94 Nasal Cannula 4.00 01/16/17 11:46 95 01/16/17 11:46 98.5 5 16 114/71 (85) 94 01/16/17 08:24 95 Nasal Cannula 5.00 01/16/17 08:00 87 01/16/17 07:00 96 Nasal Cannula 4.00 01/16/17 07:00 98.6 89 16 117/76 (90) 96 01/16/17 07:00 89 01/16/17 06:00 91 01/16/17 05:00 94 01/16/17 04:00 102 01/16/17 03:00 95 01/16/17 03:00 95 Nasal Cannula 4.50 01/16/17 03:00 98.3 102 18 114/73 (87) 95 01/16/17 02:00 100 01/16/17 01:00 95 01/16/17 00:00 95 01/15/17 23:05 Nasal Cannula 4.50 01/15/17 23:00 97.7 94 18 92/59 (70) 98 01/15/17 23:00 98 Nasal Cannula 5.00 01/15/17 23:00 100 01/15/17 22:00 103 01/15/17 21:00 98 01/15/17 20:25 Nasal Cannula 5.00 01/15/17 20:20 98 Nasal Cannula 6.00 01/15/17 20:20 91 18 124/79 (94) 98 01/15/17 20:00 96 01/15/17 19:00 91 01/15/17 18:00 96 I/O 01/15/17 01/15/17 01/15/17 01/16/17 01/16/17 01/16/17 06:59 14:59 22:59 06:59 14:59 22:59 Intake Total 360 ml 550 ml 500 ml 5050 ml 240 ml Output Total 365 ml 590 ml 831 ml 1300 ml 570 ml Balance -5 ml -40 ml -331 ml 3750 ml -330 ml Intake Oral 360 ml 550 ml 500 ml 240 ml IV Total 0 ml 0 ml Packed Cells 800 ml Blood Product IV Normal Saline Flush 4250 ml Output Urine Total 225 ml 500 ml 625 ml 400 ml Chest Tube Drainage Total 140 ml 90 ml 206 ml 170 ml Hemodialysis 1300 ml # Bowel Movements 0 0 0 Result Diagram: 01/16/1742101/16/17421 Procedures Right thoracotomy with VATS assist, lysis of adhesions, decortication, pleural biopsies and cultures, right upper lobe biopsies and cultures 12/30 Objective Remarks GENERAL: This is a middle-aged averagely built white male who is alert and in No distress . HEAD, EYES, EARS, NOSE, THROAT: Head normocephalic. The pupils are reactive. Throat is clear. NECK: The neck is supple. No bruits. No thyroid enlargement. No lymphadenopathy.Subcutaneous emphysema of chest wall on right .Has yellow drainage from chest tube CHEST: Equal movements. wheeze heard over Right chest and occ Crackles. HEART: Heart sounds are regular. S1 and S2. No murmur. ABDOMEN: Abdomen is soft and nontender. No masses EXTREMITIES:No edema. No calf tenderness. NEUROLOGIC: Reflexes are normal. No focal deficits. SKIN: Warm. Assessment and Plan Assessment and Plan IMPRESSION: 1. Extensive right lung pneumonia with hypoxemia. 2. Chronic kidney disease with acute renal failure. 3. COPD with emphysema and chronic bronchitis. 4. History of coronary artery bypass grafting. Plan : 1. Chest tube to wall 20 CM suction 2. O2 4 L. N/C 3. Nebs qid , duoneb 4. IS at bedside qid. 5. CBC,BMP in am 6. Taper Prednisone 10 mg daily. 7. Transfer to [facility] . 8. ID to check on Antibiotics Alison Wilson MD Jan 16, 2017 17:28
[2017-01-16] MEDS: RESP: BUDESONIDE 0.5 MG/2 ML NEB NEB SCH (19:33)
[2017-01-16] MEDS: PANTOPRAZOLE SOD 40 MG DELAYED RELEASE TAB PO SCH (21:45)
[2017-01-17] VITALS (27 sets, daily range): BP systolic 114–139; BP diastolic 67–81; PULSE 77–104; RESP 17–22; TEMP 97.8–98.4; O2SAT 95–99
[2017-01-17] MEDS: ACETAMINOPHEN/HYDROcodone 325 MG/5 MG TAB PO PRN ×2 (00:08→12:02)
[2017-01-17 04:50] LABS: MEAN CELL VOLUME 91.9 FL (80.0-100.0); MEAN CORPUSCULAR HGB CONC 33.8 % (32.0-36.0); PLATELET COUNT 270 TH/MM3 (150-450); RED BLOOD COUNT 2.61 MIL/MM3 (4.50-5.90); RED CELL DISTRIBUTION WIDTH 16.1 % (11.6-17.2); REVIEW FLAG FINAL
[2017-01-17 05:24] LABS: BICARBONATE 27.3 MEQ/L (21.0-32.0); POTASSIUM 4.4 MEQ/L (3.5-5.1)
[2017-01-17] MEDS: RESP: BUDESONIDE 0.5 MG/2 ML NEB NEB SCH ×2 (07:53→19:33)
[2017-01-17] MEDS: SODIUM CHLORIDE 0.9% FLUSH 5 ML FLUSH IV FLUSH SCH ×2 (09:00→20:54)
[2017-01-17] MEDS: predniSONE 10 MG TAB PO SCH (09:01)
[2017-01-17] MEDS: SEVELAMER CARBONATE 800 MG TAB PO SCH ×3 (09:01→17:20)
[2017-01-17] MEDS: DOCUSATE SODIUM 100 MG CAP PO SCH ×2 (09:01→20:52)
[2017-01-17] MEDS: LACTOBACILLUS ACIDOPHILUS TAB PO SCH ×2 (09:01→20:53)
[2017-01-17] MEDS: CHOLECALCIFEROL (VIT D3) 1000 UNIT TAB PO SCH (09:01)
[2017-01-17] MEDS: POLYETHYLENE GLYCOL 17 GM PKG PO SCH (09:03)
[2017-01-17] MEDS: ENOXAPARIN SODIUM 30 MG/0.3 ML SYRINGE SQ SCH (09:05)
--- NOTE | 2017-01-17 11:41 | HHI.NPPN ---
Subjective General Problems: Anemia Renal Failure: Acute Additional Remarks No acute complaints Review of Systems General Constitutional: Fatigue Respiratory Lungs: SOB, Cough, Sputum Musculoskeletal MS: Pain/Stiffness Objective Data Data Vital Signs Date Time Temp Pulse Resp B/P (MAP) Pulse Ox O2 Delivery O2 Flow Rate FiO2 01/17/17 11:00 102 01/17/17 11:00 100 19 114/68 (83) 97 01/17/17 11:00 97 Nasal Cannula 5.00 Humidified 01/17/17 10:00 96 01/17/17 09:00 90 01/17/17 08:00 84 01/17/17 07:55 97 Nasal Cannula 4.00 01/17/17 07:00 98 Nasal Cannula 5.00 Humidified 01/17/17 07:00 80 01/17/17 07:00 98.0 89 20 123/78 (93) 98 01/17/17 06:00 83 01/17/17 05:00 77 01/17/17 04:00 80 01/17/17 03:30 98.4 81 18 123/78 (93) 97 01/17/17 03:30 97 Nasal Cannula 5.00 01/17/17 03:00 85 01/17/17 02:00 86 01/17/17 01:00 90 01/17/17 00:00 97 01/16/17 23:45 98.5 99 18 108/72 (84) 97 01/16/17 23:45 97 Nasal Cannula 5.00 01/16/17 23:00 101 01/16/17 22:00 104 01/16/17 21:00 102 01/16/17 20:45 96 Nasal Cannula 5.00 01/16/17 20:45 98.1 87 18 135/80 (98) 96 01/16/17 20:00 100 01/16/17 19:34 96 Nasal Cannula 5.00 01/16/17 19:00 101 01/16/17 18:00 85 01/16/17 17:24 17 01/16/17 17:00 88 01/16/17 16:00 90 01/16/17 15:00 98.0 108 16 118/77 (91) 95 01/16/17 15:00 95 Nasal Cannula 4.00 01/16/17 15:00 108 01/16/17 14:00 97 01/16/17 13:00 89 01/16/17 12:00 94 01/16/17 11:46 94 Nasal Cannula 4.00 01/16/17 11:46 95 01/16/17 11:46 98.5 5 16 114/71 85) 94 -: 01/17/17 0410 01/17/170 Tubes & Lines: Perma-Cath Tubes & Lines Comment chest tube right. Physical Exam General Appearance: No Acute Distress, Comfortable, Pale, Malnourished Eyes Eye Exam: Pupils Equal, Pupils Reactive Throat Throat Exam: Oral Mucosa [place] & Moist Neck Neck Exam: Neck Supple Pulmonary Resp Exam: No Distress, Crackles, Rhonchi, Decreased Bases Cardiology CV Exam: Regular, Normal Sinus Rhythm, Good Perfusion Gastrointestinal/Abdomen GI Exam: Soft, Non-Tender, Bowel Sounds Present, Positive Bowel Movement Musculoskeletal MS Exam: Joints Intact, Normal Gait, Normal Tone, Atrophy Integumentary Skin Exam: Clear, Warm, Dry, Intact Extremeties Extremities Exam: No Edema Neurologic Neuro Exam: Alert, Awake, Oriented Psychiatric Psych Exam: Appropriate Responses Assessment/Plan Discussed Condition With: Patient Assessment Summary: SEJAL/Acute Renal Failure, Anemia of CKD Electrolyte Assessment: Metabolic Acidosis Problem List: (1) Chronic kidney disease, stage 5 ICD Codes: N18.5 - Chronic kidney disease, stage 5 Status: Chronic Plan: Patient likely has reached ESRD. s/p renal biopsy this admission. Tolerated HD yesterday, plan next HD Thursday. Continue dialysis support MWF. He is non oliguric - 900cc UOP / 24 hours Continue nutritional support with meals; on high protein diet AVF creation failed. He will need permanent HD access placed but too unstable currently. To be addressed at a later date. Intermittently obtain metabolic profile (2) Pneumonia ICD Codes: J18.9 - Pneumonia, unspecified organism Status: Resolved Plan: Pulmonary and CTS surgery are following, s/p bronchoscopy and thoracotomy with decortication Biopsy negative for pulmonary aspergillus fungal ball in right lung s/p right thoracotomy 12/30 with chest tube placement; had air leak that CTS is managing with pulmonary Concerns for bronchopleural fistula, needs surgical correction; To be transferred to [facility]. Awaiting bed placement (3) Hypokalemia ICD Codes: E87.6 - Hypokalemia Status: Resolved Plan: previously thought to have a proximal renal tubular disorder off daily replacement Adjust dialysate as needed Follow BMP (4) Hypocalcemia ICD Codes: E83.51 - Hypocalcemia Plan: Continue to treat hyperphosphatemia, on Sevelamer with meals. (5) Anemia ICD Codes: D64.9 - Anemia Status: Chronic Plan: Transfuse as needed, one unit ordered for transfusion 01/16 Continue high dose of Epogen with dialysis. Check CBC intermittently; goal Hb > 7 (6) Acidosis ICD Codes: E87.2 - Acidosis Status: Acute Plan: corrected with dialysis , monitor (7) GI bleed ICD Codes: K92.2 - Gastrointestinal hemorrhage, unspecified Status: Acute Plan: GI has signed off; s/p EGD/colonoscopy may need capsule endoscopy outpatient Problem Qualifiers (1) Pneumonia: Qualified Codes: J18.1 - Lobar pneumonia, unspecified organism (2) Anemia: Qualified Codes: N18.5 - Chronic kidney disease, stage 5; D63.1 - Anemia in chronic kidney disease (3) GI bleed: Andrea Dallas MD Jan 17, 2017 11:41
[2017-01-17] MEDS: FERROUS SULFATE 325 MG (65 MG ELEMENTAL IRON) TAB PO SCH ×2 (12:02→17:20)
[2017-01-17] MEDS: ASCORBIC ACID 500 MG TAB PO SCH ×2 (12:02→17:20)
--- NOTE | 2017-01-17 16:11 | HHI.PR ---
Subjective Remarks c/o erythema and purulent discharge on chest tube entry site states also had some right shoulder pain which has subsided. Denies fevers/chills still presents a leak Patient is sating well on 5 liters nasal canula Objective Vitals Vital Signs Date Time Temp Pulse Resp B/P (MAP) Pulse Ox O2 Delivery O2 Flow Rate FiO2 01/17/17 16:00 96 01/17/17 15:00 97 22 121/81 (94) 95 01/17/17 15:00 95 Nasal Cannula 5.00 Humidified 01/17/17 15:00 97 01/17/17 14:06 96 01/17/17 13:00 94 01/17/17 12:00 97 01/17/17 11:00 102 01/17/17 11:00 100 19 114/68 (83) 97 01/17/17 11:00 97 Nasal Cannula 5.00 Humidified 01/17/17 10:00 96 01/17/17 09:00 90 01/17/17 08:00 84 01/17/17 07:55 97 Nasal Cannula 4.00 01/17/17 07:00 98 Nasal Cannula 5.00 Humidified 01/17/17 07:00 80 01/17/17 07:00 98.0 89 20 123/78 (93) 98 01/17/17 06:00 83 01/17/17 05:00 77 01/17/17 04:00 80 01/17/17 03:30 98.4 81 18 123/78 (93) 97 01/17/17 03:30 97 Nasal Cannula 5.00 01/17/17 03:00 85 01/17/17 02:00 86 01/17/17 01:00 90 01/17/17 00:00 97 01/16/17 23:45 98.5 99 18 108/72 (84) 97 01/16/17 23:45 97 Nasal Cannula 5.00 01/16/17 23:00 101 01/16/17 22:00 104 01/16/17 21:00 102 01/16/17 20:45 96 Nasal Cannula 5.00 01/16/17 20:45 98.1 87 18 135/80 (98) 96 01/16/17 20:00 100 01/16/17 19:34 96 Nasal Cannula 5.00 01/16/17 19:00 101 01/16/17 18:00 85 01/16/17 17:24 17 01/16/17 17:00 88 I/O 01/16/17 01/16/17 01/16/17 01/17/17 01/17/17 01/17/17 07:00 15:00 23:00 07:00 15:00 23:00 Intake Total 500 ml 5050 ml 240 ml 480 ml Output Total 831 ml 1300 ml 570 ml 620 ml Balance -331 ml 3750 ml -330 ml -140 ml Intake Oral 500 ml 240 ml 480 ml IV Total 0 ml Packed Cells 800 ml Blood Product IV Normal Saline Flush 4250 ml Output Urine Total 625 ml 400 ml 500 ml Chest Tube Drainage Total 206 ml 170 ml 120 ml Hemodialysis 1300 ml # Bowel Movements 0 0 0 Result Diagram: 01/17/1740901/17/17 0410 Imaging Last Impressions Chest X-Ray 01/13/17 0000 Signed Impressions: Service Date/Time: Friday, January 13, 2017 12:12 - CONCLUSION: 1. Extensive pleural-parenchymal changes on the right. These are stable compared to previous. No pneumothorax is seen. 2. Chest tube and dialysis catheter are in satisfactory position. Andrea Willingham MD Lung Biopsy CT 12/23/16 0000 Signed Impressions: Service Date/Time: Friday, December 23, 2016 09:37 - CONCLUSION: Uncomplicated CT guided biopsy/aspiration. Broderick Ndiaye MD Chest CT 12/17/16 1715 Signed Impressions: Service Date/Time: Saturday, December 17, 2016 17:51 - CONCLUSION: 1. Dense consolidation persists in the right upper lobe with air bronchograms and air filled cystic spaces. Debris versus possible fungus ball in one of the cystic spaces at the apex which is new. Multi-organism pneumonia suspected. 2. Non-consolidative patchy infiltrate of the right middle and lower lobes not significantly changed. 3. Decreased pleural effusion on the right, now trace. Completely resolved pleural effusion on the left. 4. Previous median sternotomy. Caio Wray MD Upper Extremity Ultrasound 12/04/16 0000 Signed Impressions: Service Date/Time: November 18:26 - CONCLUSION: Venous mapping as delineated above. The cephalic veins are abnormal bilaterally. Caio Villalpando MD Renal Biopsy CT 12/02/16 1350 Signed Impressions: Service Date/Time: Friday, December 02, 2016 08:33 - CONCLUSION: Uncomplicated CT guided biopsy of the right kidney for function. Mustapha Vela Jr., MD Catheter Placement X-Ray 11/28/16 0000 Signed Impressions: Service Date/Time: Monday, November 28, 2016 15:57 - CONCLUSION: Uncomplicated PermaCath placement as above. Mustapha Vela Jr., MD Renal Ultrasound 11/22/16 0000 Signed Impressions: Service Date/Time: Tuesday, November 22, 2016 17:14 - CONCLUSION: Mild pelvocaliectasis right kidney not present previously. Obdulia Garcia MD Objective Remarks GENERAL: cachectic appearing middle-aged male, lying in bed, resting. on nonrebreather facemask SKIN: No rashes, ecchymoses or lesions. Cool and dry. HEAD: Atraumatic. Normocephalic. No temporal or scalp tenderness. EYES: Pupils equal round and reactive. Pallor present. No scleral icterus. No injection or drainage. ENT: Nose without bleeding, purulent drainage or septal hematoma. Airway patent. NECK: Trachea midline. No JVD CARDIOVASCULAR: Regular rate and rhythm. Well-healed sternotomy incision. Dressing over right thoracotomy site, chest tube in place with 1+ air leak RESPIRATORY: Decreased BS on right. Subcutaneous emphysema over chest wall. Rhonchi over right lung field, left lung field appears clear with no wheezing or crackles. Right sided chest tube in place with positive air leak - erythema around chest tube with minimal yellowish discharge. GASTROINTESTINAL: Abdomen soft, non-tender, nondistended. No guarding. MUSCULOSKELETAL: Extremities without clubbing, cyanosis, or edema. There is tenderness to palpation over the right trapezius muscle. NEUROLOGICAL: Awake alert and oriented 3. Muscle strength 5/5 in all extremities. Speech normal. Procedures 11/28/2016 Right Internal Jugular Hemodialysis Catheter Tunneled Placement dual lumen 12/02/2016 Successful right renal biopsy for function. Gelfoam and thrombin utilized. No bleeding on post CT Lung Biopsy 12/23/16. Dialysis 12/24/16. Medications and IVs Current Medications Medications (Trade) Dose Ordered Sig/Edwin Route Start Time Stop Time Status Last Admin (Mag-Al Plus Susp Liq) 30 ml Q6H PRN PO 11/24/16 13:15 (Restoril) 15 mg HS PRN PO 11/24/16 13:15 12/31/16 23:22 (Vitamin D3) 2,000 units DAILY PO 11/25/16 09:15 01/17/17 09:01 (Lactinex) 1 tab Q12HR PO 11/26/16 21:00 01/17/17 09:01 Sodium Chloride 1,000 ml @ 0 mls/hr Q0M PRN OTHER 11/28/16 15:28 12/29/16 16:10 (Heparin Inj) 8,000 units UNSCH PRN IVF 11/28/16 15:30 Future Hold 01/12/17 08:39 Sodium Chloride 1,000 ml @ 200 mls/hr Q5H PRN IV 11/28/16 15:28 Sodium Chloride 1,000 ml @ 0 mls/hr Q0M PRN OTHER 11/28/16 15:28 11/30/16 12:02 (Mannitol Inj) 12.5 gm UNSCH PRN IV 11/28/16 15:30 (Albumin 25% Inj) 25 gm UNSCH PRN IV 11/28/16 15:30 01/16/17 08:38 (NS Flush) 5 ml UNSCH PRN IV FLUSH 11/28/16 15:30 01/11/17 08:35 (Heparin Inj) UNSCH PRN .XX 11/28/16 15:30 01/12/17 08:42 (Gentamicin (Dialysis) Inj) 20 mg UNSCH PRN IV 11/28/16 15:30 01/16/17 08:39 (Zofran Inj) 4 mg UNSCH PRN IV 11/28/16 15:30 (Tylenol) 650 mg UNSCH PRN PO 11/28/16 15:30 12/19/16 13:06 (Benadryl) 25 mg UNSCH PRN PO 11/28/16 15:30 12/19/16 13:06 (Nitrostat Sl) 0.4 mg UNSCH PRN SL 11/28/16 15:30 (Gelfoam 12 Mm/7 Mm Top) 1 foam UNSCH PRN TOP 11/28/16 15:30 (NS Flush) UNSCH PRN IVF 11/28/16 18:15 (Heparin Inj) UNSCH PRN IV FLUSH 11/28/16 18:15 Future Hold (Duoneb Neb) 1 ampule Q4HR NEB PRN NEB 11/29/16 12:30 12/31/16 15:54 (Benadryl) 25 mg Q8H PRN PO 11/30/16 10:00 12/31/16 23:23 (Renvela) 1,600 mg TIDAC PO 12/03/16 17:00 01/17/17 17:20 (Robitussin Ac 200-20 Mg/10 ml Liq) 10 ml Q6H PRN PO 12/15/16 14:00 01/05/17 02:24 (Epogen Inj) 10,000 units UNSCH PRN IV 12/17/16 09:30 01/12/17 08:40 (Epogen Inj) 4,000 units UNSCH PRN IV 12/17/16 09:45 01/07/17 10:56 (Cepacol Extra Elenita (Sugar Free)) 1 lozenge Q2HR PRN BUCCAL 12/23/16 09:00 (Davilla 5-325 Mg) 1 tab Q4H PRN PO 12/25/16 09:15 01/15/17 23:15 (Ferrous Sulfate) 325 mg BID@12,17 PO 12/29/16 12:00 01/17/17 17:20 (Vitamin C) 500 mg BID@1200,1700 PO 12/29/16 12:00 01/17/17 17:20 (Symbicort 160-4.5 Inh) 1 puff Q12HR INH 12/30/16 21:00 Future Hold (Albuterol Neb) 2.5 mg Q2HR NEB PRN NEB 12/30/16 16:45 01/07/17 23:47 (Pulmicort Respule Neb) 0.5 mg BID NEB NEB 12/30/16 20:00 01/17/17 07:53 (NS Flush) 2 ml BID IV FLUSH 12/30/16 21:00 01/17/17 09:00 (NS Flush) 2 ml UNSCH PRN IV FLUSH 12/30/16 16:45 (Protonix) 40 mg HS PO 12/30/16 21:00 01/16/17 21:45 (Zofran Inj) 4 mg Q6H PRN IV PUSH 12/30/16 16:45 (Milk Of Magnesia Liq) 30 ml DAILY PRN PO 12/30/16 16:45 (Tylenol) 650 mg Q4H PRN PO 12/30/16 16:45 (Colace) 100 mg BID PO 12/31/16 10:00 01/17/17 09:01 (Miralax) 17 gm DAILY PO 12/31/16 10:00 01/17/17 09:03 (Lovenox Inj) 30 mg EVERY OTHER DAY SQ 01/05/17 15:00 01/17/17 09:05 (fentaNYL INJ) 25 mcg Q4H PRN IV PUSH 01/06/17 14:45 01/07/17 13:00 (Davilla 5-325 Mg) 2 tab Q4H PRN PO 01/06/17 14:45 01/17/17 12:02 (Pill Splitter) 1 ea UNSCH PRN OTHER 01/08/17 19:15 (Deltasone) 10 mg DAILY PO 01/13/17 09:00 01/17/17 09:01 A/P Problem List: (1) Sepsis ICD Code: A41.9 - Sepsis, unspecified organism Status: Resolved (2) Acute renal failure ICD Code: N17.9 - Acute kidney failure, unspecified Status: Resolved (3) Pneumonia ICD Code: J18.9 - Pneumonia, unspecified organism Status: Resolved (4) Coronary artery disease ICD Code: I25.10 - Coronary artery disease Status: Chronic (5) Anemia ICD Code: D64.9 - Anemia Status: Chronic (6) Hematochezia ICD Code: K92.1 - Melena Status: Resolved (7) Hypokalemia ICD Code: E87.6 - Hypokalemia Status: Resolved (8) Chronic kidney disease, stage 5 ICD Code: N18.5 - Chronic kidney disease, stage 5 Status: Chronic (9) AVF (arteriovenous fistula) ICD Code: I77.0 - Arteriovenous fistula, acquired Status: Chronic (10) Right thoracotomy with VATS assist, lysis of adhesions, decortication, pleural biopsies Status: Acute (11) Neck pain on right side ICD Code: M54.2 - Cervicalgia Assessment and Plan Mr. Fonseca is a 55-year-old male patient with a known medical history of CAD s/ p CABG and CKD who presented to the ED with complaints of increasing dyspnea, generalized weakness, fevers and frequent diaphoresis x 2 weeks. Sepsis on admission suspect secondary to right multilobular pneumonia-resolved Dense cavitary pneumonia of the right lung - Pulmonary consulted and following. - Completed cefepime 1 g every 12 hours on 12/06/16 - Cardiothoracic Surgery and ID consulted. - Negative Aspergillus titers. Chronic obstructive pulmonary disease Acute Respiratory failure Extensive right lung pneumonia with cavitation - CT chest 11/26 dense consolidative right upper lobe pneumonia with severe emphysema with cavitary foci within the consolidated areas, patchy right middle and lower lobe pneumonia - Pulmonary following - RUL BAL 12/05 negative for malignant cells - CT guided bx 12/23 negative for fungus, AFB or malignancy. Substantial fibrosis noted. - Sputum culture negative. Bronchial cultures negative. Negative Aspergillus titers. - Continue scheduled and PRN duonebs. - Continue Robitussin Ac prn cough - Supplemental O2 to keep sats >88%. - Patient sp right thoracotomy, lysis of adhesions, decortication, pleural biopsy on 12/30. -Patient on high flow nasal cannula at 45%. Patient was transitioned from February with a mask. 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 Pulmonary following. Awaiting transfer to [facility] for evaluation by interventional pulmonary for management of persistent air leak. 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 ESRD on Hemodyalisis - Per nephrology will need keno terminal operator dialysis (MWF). - Patient underwent AV fistula surgery on 12/10/2016. However, patient may need AV graft. - US kidney/renal/bladder ordered and reviewed showing mild pelvocaliectasis right kidney. 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 Continue to monitor BUN/ creatinine, strict I's and O's and avoid nephrotoxins. Normochromic, normocytic anemia suspect secondary to acute blood loss/ hematochezia - Transfused total of 6 PRBCs since admission, and transfuse for HgB<7.0 - Continue Protonix 40 mg twice a day - EGD/Colonoscopy on 12/18/2016 - No major findings, no bleeding source. May need capsule endoscopy as outpt. GI has signed off. - Hgb 7.0 on 12/24, repeat H&H. Transfuse is 7.0 or less. - Epogen per Nephrology - 01/15 Hemoglobin stable at 8.1. Continue to monitor CBC - 01/16 11 dropped down to 7.2. No obvious signs of bleeding. Transfuse 1 unit of packed blood cells. Continue to monitor CBC. The case was discussed with the cardiothoracic PA. - 01/17 sp transfusion of 1 unit PRBC on 01/16 with appropriate response of the hemoglobin. Continue to monitor CBC. Hyperkalemia - 12/31 sp IV insulin + D50 and Kayexalate. Repeat BMP. - Resolved. COPD Exacerbation - Sp treatment with IV steroids an po Levaquin, now on prednisone taper as per pulmonology. Cellulitis - Chest tube entrance site is erythematous and there is purulent discharge observed. as per RN CT surgeon states looks better. Continue wound care. Will reconsult ID for advice on further management. I will also obtain a wound culture. Monitor for fevers or any other signs of infection. Full code. DVT Prophylaxis: SCDs/TEDs., Ambulation. discussed with RN. Discharge Planning Patient awaiting transfer to [facility]. Problem Qualifiers (1) Sepsis: (2) Acute renal failure: Qualified Codes: N17.8 - Other acute kidney failure (3) Pneumonia: Qualified Codes: J18.1 - Lobar pneumonia, unspecified organism (4) Coronary artery disease: Qualified Codes: I25.119 - Atherosclerotic heart disease of [place] coronary artery with unspecified angina pectoris (5) Anemia: Qualified Codes: N18.5 - Chronic kidney disease, stage 5; D63.1 - Anemia in chronic kidney disease Juanjo Rush MD Jan 17, 2017 16:11
[2017-01-17] MEDS: PANTOPRAZOLE SOD 40 MG DELAYED RELEASE TAB PO SCH (20:53)
[2017-01-18] VITALS (26 sets, daily range): BP systolic 127–139; BP diastolic 76–88; PULSE 78–107; RESP 18–21; TEMP 97.9–98.1; O2SAT 93–100
[2017-01-18] MEDS: ACETAMINOPHEN/HYDROcodone 325 MG/5 MG TAB PO PRN ×3 (01:05→23:10)
[2017-01-18] MEDS: RESP: BUDESONIDE 0.5 MG/2 ML NEB NEB SCH ×2 (07:29→19:12)
[2017-01-18] MEDS: predniSONE 10 MG TAB PO SCH (08:50)
[2017-01-18] MEDS: CHOLECALCIFEROL (VIT D3) 1000 UNIT TAB PO SCH (08:50)
[2017-01-18] MEDS: SEVELAMER CARBONATE 800 MG TAB PO SCH ×3 (08:50→17:00)
[2017-01-18] MEDS: DOCUSATE SODIUM 100 MG CAP PO SCH ×2 (08:50→21:00)
[2017-01-18] MEDS: LACTOBACILLUS ACIDOPHILUS TAB PO SCH ×2 (08:50→21:35)
[2017-01-18] MEDS: POLYETHYLENE GLYCOL 17 GM PKG PO SCH (08:51)
[2017-01-18] MEDS: SODIUM CHLORIDE 0.9% FLUSH 5 ML FLUSH IV FLUSH SCH ×2 (08:51→21:00)
--- NOTE | 2017-01-18 13:17 | HHI.PR ---
Subjective Remarks no new complaints sc/o some pain around chest tube but improved when compared to yesterda Denies fevers/chills. Denies diarrhea. Objective Vitals Vital Signs Date Time Temp Pulse Resp B/P (MAP) Pulse Ox O2 Delivery O2 Flow Rate FiO2 01/18/17 12:00 100 01/18/17 11:15 20 01/18/17 11:00 96 Nasal Cannula 4.00 Humidified 01/18/17 11:00 98 20 127/80 (96) 96 01/18/17 11:00 107 01/18/17 10:00 97 01/18/17 09:00 104 01/18/17 08:00 87 01/18/17 07:31 97 Nasal Cannula 4.00 01/18/17 07:00 100 Nasal Cannula 4.00 Humidified 01/18/17 07:00 98.0 89 20 139/88 (105) 100 01/18/17 07:00 84 01/18/17 06:16 83 01/18/17 05:03 88 01/18/17 04:36 83 01/18/17 03:40 85 01/18/17 03:40 98 Nasal Cannula 4.00 01/18/17 03:40 98.0 85 18 136/79 (98) 98 01/18/17 02:03 87 01/18/17 01:40 90 01/18/17 00:24 97 01/17/17 23:37 98.2 100 17 125/74 (91) 96 01/17/17 23:37 96 Nasal Cannula 4.00 01/17/17 23:37 104 01/17/17 22:00 96 01/17/17 21:00 100 01/17/17 20:00 92 01/17/17 19:40 100 Nasal Cannula 4.00 01/17/17 19:33 99 Nasal Cannula 4.00 01/17/17 19:30 88 01/17/17 19:30 97.8 95 18 139/67 (91) 96 01/17/17 18:00 94 01/17/17 17:00 85 01/17/17 16:00 96 01/17/17 15:00 97 22 121/81 (94) 95 01/17/17 15:00 95 Nasal Cannula 5.00 Humidified 01/17/17 15:00 97 10/14/17 14:06 96 I/O 01/17/17 01/17/17 01/17/17 01/18/17 01/18/17 01/18/17 07:00 15:00 23:00 07:00 15:00 23:00 Intake Total 480 ml 480 ml 480 ml Output Total 620 ml 520 ml 265 ml Balance -140 ml -40 ml 215 ml Intake Oral 480 ml 480 ml IV Total 480 ml Output Urine Total 500 ml 400 ml 175 ml Chest Tube Drainage Total 120 ml 120 ml 90 ml # Bowel Movements 0 1 Result Diagram: 01/17/17 0410 01/17/17 0410 Imaging Last Impressions Chest X-Ray 01/13/17 0000 Signed Impressions: Service Date/Time: Friday, January 13, 2017 12:12 - CONCLUSION: 1. Extensive pleural-parenchymal changes on the right. These are stable compared to previous. No pneumothorax is seen. 2. Chest tube and dialysis catheter are in satisfactory position. Andrea Willingham MD Lung Biopsy CT 12/23/16 0000 Signed Impressions: Service Date/Time: Friday, December 23, 2016 09:37 - CONCLUSION: Uncomplicated CT guided biopsy/aspiration. Broderick Ndiaye MD Chest CT 12/17/16 1715 Signed Impressions: Service Date/Time: Saturday, December 17, 2016 17:51 - CONCLUSION: 1. Dense consolidation persists in the right upper lobe with air bronchograms and air filled cystic spaces. Debris versus possible fungus ball in one of the cystic spaces at the apex which is new. Multi-organism pneumonia suspected. 2. Non-consolidative patchy infiltrate of the right middle and lower lobes not significantly changed. 3. Decreased pleural effusion on the right, now trace. Completely resolved pleural effusion on the left. 4. Previous median sternotomy. Caio Wray MD Upper Extremity Ultrasound 12/04/16 0000 Signed Impressions: Service Date/Time: November 18:26 - CONCLUSION: Venous mapping as delineated above. The cephalic veins are abnormal bilaterally. Caio Villalpando MD Renal Biopsy CT 12/02/16 1350 Signed Impressions: Service Date/Time: Friday, December 02, 2016 08:33 - CONCLUSION: Uncomplicated CT guided biopsy of the right kidney for function. Mustapha Vela Jr., MD Catheter Placement X-Ray 11/28/16 0000 Signed Impressions: Service Date/Time: Monday, November 28, 2016 15:57 - CONCLUSION: Uncomplicated PermaCath placement as above. Mustapha Vela Jr., MD Renal Ultrasound 11/22/16 0000 Signed Impressions: Service Date/Time: Tuesday, November 22, 2016 17:14 - CONCLUSION: Mild pelvocaliectasis right kidney not present previously. Obdulia Garcia MD Objective Remarks GENERAL: cachectic appearing middle-aged male, lying in bed, resting. on nonrebreather facemask SKIN: No rashes, ecchymoses or lesions. Cool and dry. HEAD: Atraumatic. Normocephalic. No temporal or scalp tenderness. EYES: Pupils equal round and reactive. Pallor present. No scleral icterus. No injection or drainage. ENT: Nose without bleeding, purulent drainage or septal hematoma. Airway patent. NECK: Trachea midline. No JVD CARDIOVASCULAR: Regular rate and rhythm. Well-healed sternotomy incision. Dressing over right thoracotomy site, chest tube in place with 1+ air leak RESPIRATORY: Decreased BS on right. Subcutaneous emphysema over chest wall. Rhonchi over right lung field, left lung field appears clear with no wheezing or crackles. Right sided chest tube in place with positive air leak - erythema around chest tube with minimal yellowish discharge. GASTROINTESTINAL: Abdomen soft, non-tender, nondistended. No guarding. MUSCULOSKELETAL: Extremities without clubbing, cyanosis, or edema. There is tenderness to palpation over the right trapezius muscle. NEUROLOGICAL: Awake alert and oriented 3. Muscle strength 5/5 in all extremities. Speech normal. Procedures 11/28/2016 Right Internal Jugular Hemodialysis Catheter Tunneled Placement dual lumen 12/02/2016 Successful right renal biopsy for function. Gelfoam and thrombin utilized. No bleeding on post CT Lung Biopsy 12/23/16. Dialysis 12/24/16. Medications and IVs Current Medications Medications (Trade) Dose Ordered Sig/Edwin Route Start Time Stop Time Status Last Admin (Mag-Al Plus Susp Liq) 30 ml Q6H PRN PO 11/24/16 13:15 (Restoril) 15 mg HS PRN PO 11/24/16 13:15 12/31/16 23:22 (Vitamin D3) 2,000 units DAILY PO 11/25/16 09:15 01/18/17 08:50 (Lactinex) 1 tab Q12HR PO 11/26/16 21:00 01/18/17 08:50 Sodium Chloride 1,000 ml @ 0 mls/hr Q0M PRN OTHER 11/28/16 15:28 12/29/16 16:10 (Heparin Inj) 8,000 units UNSCH PRN IVF 11/28/16 15:30 Future Hold 01/12/17 08:39 Sodium Chloride 1,000 ml @ 200 mls/hr Q5H PRN IV 11/28/16 15:28 Sodium Chloride 1,000 ml @ 0 mls/hr Q0M PRN OTHER 11/28/16 15:28 11/30/16 12:02 (Mannitol Inj) 12.5 gm UNSCH PRN IV 11/28/16 15:30 (Albumin 25% Inj) 25 gm UNSCH PRN IV 11/28/16 15:30 01/16/17 08:38 (NS Flush) 5 ml UNSCH PRN IV FLUSH 11/28/16 15:30 01/11/17 08:35 (Heparin Inj) UNSCH PRN .XX 11/28/16 15:30 01/12/17 08:42 (Gentamicin (Dialysis) Inj) 20 mg UNSCH PRN IV 11/28/16 15:30 01/16/17 08:39 (Zofran Inj) 4 mg UNSCH PRN IV 11/28/16 15:30 (Tylenol) 650 mg UNSCH PRN PO 11/28/16 15:30 12/19/16 13:06 (Benadryl) 25 mg UNSCH PRN PO 11/28/16 15:30 12/19/16 13:06 (Nitrostat Sl) 0.4 mg UNSCH PRN SL 11/28/16 15:30 (Gelfoam 12 Mm/7 Mm Top) 1 foam UNSCH PRN TOP 11/28/16 15:30 (NS Flush) UNSCH PRN IVF 11/28/16 18:15 (Heparin Inj) UNSCH PRN IV FLUSH 11/28/16 18:15 Future Hold (Duoneb Neb) 1 ampule Q4HR NEB PRN NEB 11/29/16 12:30 12/31/16 15:54 (Benadryl) 25 mg Q8H PRN PO 11/30/16 10:00 12/31/16 23:23 (Renvela) 1,600 mg TIDAC PO 12/03/16 17:00 01/18/17 08:50 (Robitussin Ac 200-20 Mg/10 ml Liq) 10 ml Q6H PRN PO 12/15/16 14:00 01/05/17 02:24 (Epogen Inj) 10,000 units UNSCH PRN IV 12/17/16 09:30 01/12/17 08:40 (Epogen Inj) 4,000 units UNSCH PRN IV 12/17/16 09:45 01/07/17 10:56 (Cepacol Extra Elenita (Sugar Free)) 1 lozenge Q2HR PRN BUCCAL 12/23/16 09:00 ([place] 5-325 Mg) 1 tab Q4H PRN PO 12/25/16 09:15 01/15/17 23:15 (Ferrous Sulfate) 325 mg BID@12,17 PO 12/29/16 12:00 01/17/17 17:20 (Vitamin C) 500 mg BID@1200,1700 PO 12/29/16 12:00 01/17/17 17:20 (Symbicort 160-4.5 Inh) 1 puff Q12HR INH 12/30/16 21:00 Future Hold (Albuterol Neb) 2.5 mg Q2HR NEB PRN NEB 12/30/16 16:45 01/07/17 23:47 (Pulmicort Respule Neb) 0.5 mg BID NEB NEB 12/30/16 20:00 01/18/17 07:29 (NS Flush) 2 ml BID IV FLUSH 12/30/16 21:00 01/18/17 08:51 (NS Flush) 2 ml UNSCH PRN IV FLUSH 12/30/16 16:45 (Protonix) 40 mg HS PO 12/30/16 21:00 01/17/17 20:53 (Zofran Inj) 4 mg Q6H PRN IV PUSH 12/30/16 16:45 (Milk Of Magnesia Liq) 30 ml DAILY PRN PO 12/30/16 16:45 (Tylenol) 650 mg Q4H PRN PO 12/30/16 16:45 (Colace) 100 mg BID PO 12/31/16 10:00 01/18/17 08:50 (Miralax) 17 gm DAILY PO 12/31/16 10:00 01/17/17 09:03 (Lovenox Inj) 30 mg EVERY OTHER DAY SQ 01/05/17 15:00 01/17/17 09:05 (fentaNYL INJ) 25 mcg Q4H PRN IV PUSH 01/06/17 14:45 01/07/17 13:00 ([place] 5-325 Mg) 2 tab Q4H PRN PO 01/06/17 14:45 01/18/17 10:09 (Pill Splitter) 1 ea UNSCH PRN OTHER 01/08/17 19:15 (Deltasone) 10 mg DAILY PO 01/13/17 09:00 01/18/17 08:50 Urinary Catheter: No Vascular Central Line Catheter: No A/P Problem List: (1) Sepsis ICD Code: A41.9 - Sepsis, unspecified organism Status: Resolved (2) Acute renal failure ICD Code: N17.9 - Acute kidney failure, unspecified Status: Resolved (3) Pneumonia ICD Code: J18.9 - Pneumonia, unspecified organism Status: Resolved (4) Coronary artery disease ICD Code: I25.10 - Coronary artery disease Status: Chronic (5) Anemia ICD Code: D64.9 - Anemia Status: Chronic (6) Hematochezia ICD Code: K92.1 - Melena Status: Resolved (7) Hypokalemia ICD Code: E87.6 - Hypokalemia Status: Resolved (8) Chronic kidney disease, stage 5 ICD Code: N18.5 - Chronic kidney disease, stage 5 Status: Chronic (9) AVF (arteriovenous fistula) ICD Code: I77.0 - Arteriovenous fistula, acquired Status: Chronic (10) Right thoracotomy with VATS assist, lysis of adhesions, decortication, pleural biopsies Status: Acute (11) Neck pain on right side ICD Code: M54.2 - Cervicalgia Plan: Neck pain likely musculoskeletal. The patient is tender to palpation of the trapezius muscle on the right side. I will order a muscle relaxant. Continue [place] for pain control. 01/18 Neck pain much improved. Continue [place] for pain. Add Flexeril as needed. Assessment and Plan Mr. Fonseca is a 55-year-old male patient with a known medical history of CAD s/ p CABG and CKD who presented to the ED with complaints of increasing dyspnea, generalized weakness, fevers and frequent diaphoresis x 2 weeks. Sepsis on admission suspect secondary to right multilobular pneumonia-resolved Dense cavitary pneumonia of the right lung - Pulmonary consulted and following. - Completed cefepime 1 g every 12 hours on 12/06/16 - Cardiothoracic Surgery and ID consulted. - Negative Aspergillus titers. Chronic obstructive pulmonary disease Acute Respiratory failure Extensive right lung pneumonia with cavitation - CT chest 11/26 dense consolidative right upper lobe pneumonia with severe emphysema with cavitary foci within the consolidated areas, patchy right middle and lower lobe pneumonia - Pulmonary following - RUL BAL 12/05 negative for malignant cells - CT guided bx 12/23 negative for fungus, AFB or malignancy. Substantial fibrosis noted. - Sputum culture negative. Bronchial cultures negative. Negative Aspergillus titers. - Continue scheduled and PRN duonebs. - Continue Robitussin Ac prn cough - Supplemental O2 to keep sats >88%. - Patient sp right thoracotomy, lysis of adhesions, decortication, pleural biopsy on 12/30. -Patient on high flow nasal cannula at 45%. Patient was transitioned from February with a mask. 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 Pulmonary following. Awaiting transfer to [facility] for evaluation by interventional pulmonary for management of persistent air leak. 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 ESRD on Hemodyalisis - Per nephrology will need intermediate frame tender dialysis (MWF). - Patient underwent AV fistula surgery on 12/10/2016. However, patient may need AV graft. - US kidney/renal/bladder ordered and reviewed showing mild pelvocaliectasis right kidney. 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 Continue to monitor BUN/ creatinine, strict I's and O's and avoid nephrotoxins. Normochromic, normocytic anemia suspect secondary to acute blood loss/ hematochezia - Transfused total of 6 PRBCs since admission, and transfuse for HgB<7.0 - Continue Protonix 40 mg twice a day - EGD/Colonoscopy on 12/18/2016 - No major findings, no bleeding source. May need capsule endoscopy as outpt. GI has signed off. - Hgb 7.0 on 12/24, repeat H&H. Transfuse is 7.0 or less. - Epogen per Nephrology - 01/15 Hemoglobin stable at 8.1. Continue to monitor CBC - 01/16 11 dropped down to 7.2. No obvious signs of bleeding. Transfuse 1 unit of packed blood cells. Continue to monitor CBC. The case was discussed with the cardiothoracic PA. - 01/17 sp transfusion of 1 unit PRBC on 01/16 with appropriate response of the hemoglobin. Continue to monitor CBC. Hyperkalemia - 12/31 sp IV insulin + D50 and Kayexalate. Repeat BMP. - Resolved. COPD Exacerbation - Sp treatment with IV steroids an po Levaquin, now on prednisone taper as per pulmonology. Cellulitis - Chest tube entrance site is erythematous and there is purulent discharge observed. as per RN CT surgeon states looks better. Continue wound care. Will reconsult ID for advice on further management. I will also obtain a wound culture. Monitor for fevers or any other signs of infection. - ID reconsulted - recommendations pending. Full code. DVT Prophylaxis: SCDs/TEDs., Ambulation. discussed with RN. Discharge Planning Patient awaiting transfer to [facility]. Problem Qualifiers (1) Sepsis: (2) Acute renal failure: Qualified Codes: N17.8 - Other acute kidney failure (3) Pneumonia: Qualified Codes: J18.1 - Lobar pneumonia, unspecified organism (4) Coronary artery disease: Qualified Codes: I25.119 - Atherosclerotic heart disease of [place] coronary artery with unspecified angina pectoris (5) Anemia: Qualified Codes: N18.5 - Chronic kidney disease, stage 5; D63.1 - Anemia in chronic kidney disease Juanjo Rush MD Jan 18, 2017 13:17
[2017-01-18] MEDS: FERROUS SULFATE 325 MG (65 MG ELEMENTAL IRON) TAB PO SCH ×2 (13:29→17:56)
[2017-01-18] MEDS: ASCORBIC ACID 500 MG TAB PO SCH ×2 (13:30→17:56)
--- NOTE | 2017-01-18 13:46 | HHI.IDPN ---
Subjective Subjective Remarks reconsulted 2/[address] still putting pout around 60 cc/shift into CT and heavy drainage around oit - that started in the last few days: dressigns with 6-8 4x4s changed 2-3 times a day and are completely saturated with dc Also pt co worsening pain in the R chest NO fever + midl productive cough, yellowish sputum Antibiotics none Allergies: Coded Allergies: No Known Allergies (Unverified , 09/26/13) Objective . Vital Signs Date Time Temp Pulse Resp B/P (MAP) Pulse Ox O2 Delivery O2 Flow Rate FiO2 01/18/17 13:00 88 01/18/17 12:00 100 01/18/17 11:15 20 01/18/17 11:00 96 Nasal Cannula 4.00 Humidified 01/18/17 11:00 98 20 127/80 (96) 96 01/18/17 11:00 107 01/18/17 10:00 97 01/18/17 09:00 104 01/18/17 08:00 87 01/18/17 07:31 97 Nasal Cannula 4.00 01/18/17 07:00 100 Nasal Cannula 4.00 Humidified 01/18/17 07:00 98.0 89 20 139/88 (105) 100 01/18/17 07:00 84 01/18/17 06:16 83 01/18/17 05:03 88 01/18/17 04:36 83 01/18/17 03:40 85 01/18/17 03:40 98 Nasal Cannula 4.00 01/18/17 03:40 98.0 85 18 136/79 (98) 98 01/18/17 02:03 87 01/18/17 01:40 90 01/18/17 00:24 97 01/17/17 23:37 98.2 100 17 125/74 (91) 96 01/17/17 23:37 96 Nasal Cannula 4.00 01/17/17 23:37 104 01/17/17 22:00 96 01/17/17 21:00 100 01/17/17 20:00 92 01/17/17 19:40 100 Nasal Cannula 4.00 01/17/17 19:33 99 Nasal Cannula 4.00 01/17/17 19:30 88 01/17/17 19:30 97.8 95 18 139/67 (91) 96 01/17/17 18:00 94 01/17/17 17:00 85 01/17/17 16:00 96 01/17/17 15:00 97 22 121/81 (94) 95 01/17/17 15:00 95 Nasal Cannula 5.00 Humidified 01/17/17 15:00 97 01/17/17 14:06 96 . Laboratory Tests Test 01/17/17 04:10 White Blood Count 10.0 TH/MM3 Red Blood Count 2.61 MIL/MM3 Hemoglobin 8.1 GM/DL Hematocrit 24.0 % Mean Corpuscular Volume 91.9 FL Mean Corpuscular Hemoglobin 31.0 PG Mean Corpuscular Hemoglobin Concent 33.8 % Red Cell Distribution Width 16.1 % Platelet Count 270 TH/MM3 Mean Platelet Volume 8.3 FL Laboratory Tests Test 01/17/17 04:10 Blood Urea Nitrogen 42 MG/DL Creatinine 3.68 MG/DL Random Glucose 76 MG/DL Calcium Level 8.5 MG/DL Sodium Level 138 MEQ/L Potassium Level 4.4 MEQ/L Chloride Level 102 MEQ/L Carbon Dioxide Level 27.3 MEQ/L Anion Gap 9 MEQ/L Estimat Glomerular Filtration Rate 17 ML/MIN Microbiology Date/Time Source Procedure Growth Status 01/17/17 16:30 Wound Chest Gram Stain - Final Resulted 01/17/17 16:30 Wound Chest Wound Culture Pending Resulted Imaging Last Impressions Chest X-Ray 01/13/17 0000 Signed Impressions: Service Date/Time: Friday, January 13, 2017 12:12 - CONCLUSION: 1. Extensive pleural-parenchymal changes on the right. These are stable compared to previous. No pneumothorax is seen. 2. Chest tube and dialysis catheter are in satisfactory position. Andrea Willingham MD Lung Biopsy CT 12/23/16 0000 Signed Impressions: Service Date/Time: Friday, December 23, 2016 09:37 - CONCLUSION: Uncomplicated CT guided biopsy/aspiration. Broderick Ndiaye MD Chest CT 12/17/16 1715 Signed Impressions: Service Date/Time: Saturday, December 17, 2016 17:51 - CONCLUSION: 1. Dense consolidation persists in the right upper lobe with air bronchograms and air filled cystic spaces. Debris versus possible fungus ball in one of the cystic spaces at the apex which is new. Multi-organism pneumonia suspected. 2. Non-consolidative patchy infiltrate of the right middle and lower lobes not significantly changed. 3. Decreased pleural effusion on the right, now trace. Completely resolved pleural effusion on the left. 4. Previous median sternotomy. Caio Wray MD Upper Extremity Ultrasound 12/04/16 0000 Signed Impressions: Service Date/Time: November 18:26 - CONCLUSION: Venous mapping as delineated above. The cephalic veins are abnormal bilaterally. Caio Villalpando MD Renal Biopsy CT 12/02/16 1350 Signed Impressions: Service Date/Time: Friday, December 02, 2016 08:33 - CONCLUSION: Uncomplicated CT guided biopsy of the right kidney for function. Mustapha Vela Jr., MD Catheter Placement X-Ray 11/28/16 0000 Signed Impressions: Service Date/Time: Monday, November 28, 2016 15:57 - CONCLUSION: Uncomplicated PermaCath placement as above. Mustapha Vela Jr., MD Renal Ultrasound 11/22/16 0000 Signed Impressions: Service Date/Time: Tuesday, November 22, 2016 17:14 - CONCLUSION: Mild pelvocaliectasis right kidney not present previously. Obdulia Garcia MD Physical Exam CONSTITUTIONAL/GENERAL: This is an adequately nourished patient, in no apparent distress. SKIN: No jaundice, rashes, or lesions. Skin temperature appropriate. Not diaphoretic. EYES: Pupils equal and round and reactive. No scleral icterus. No injection or drainage. Fundi not examined. ENT: Hearing grossly normal. Nose without bleeding or purulent drainage. Throat without visible erythema, exudates, masses, or lesions. NECK: Trachea midline. Supple, nontender. CARDIOVASCULAR: Regular rate and rhythm without murmurs, gallops, or rubs. No JVD. Peripheral pulses symmetric. RESPIRATORY/CHEST: Symmetric, unlabored respirations. Clear to auscultation L. Extensive rhonchi/ amphoric BS on TH R R CT in place with serosang d/c the entry site with a thin rim of white necrotic tissue surrounded by < 5 mm area of erythema, no edema, no purulence dressing enforced with multiple layers of 4x4 s allm saturated with odorless serous fluid GASTROINTESTINAL: Abdomen soft, non-tender, nondistended. No hepato-splenomegaly , or palpable masses. No guarding. Bowel sounds present. GENITOURINARY: Without palpable bladder distension MUSCULOSKELETAL: Extremities without clubbing, cyanosis, or edema. . No mottling or clubbing. NEUROLOGICAL: Awake and alert. Motor and sensory grossly within normal limits. Follows commands. Clear speech Moves all extremities. PSYCHIATRIC: calm, cooperative Assessment & Plan Remarks ? BP fistula CT site ? infection - MANY GRAM POSITIVE COCCI IN PAIRS AND CLUSTERS, no WBC - completely asymptomatic as far as infection(no fever, no leukocytosis Culture negative cavitary PNA, RUL with no e/o fungal infx on path sp lung bx ESRD, on HD HEp C Pt is clincially asymptomatic afebrile Rec's: fu CT site clx repeat CXR awaiting transfer to [facility] for his BPF surgery will decide on abx per clx results and clinical progress dw Paz Bennett MD Jan 18, 2017 13:46
--- NOTE | 2017-01-18 16:10 | HHI.PR ---
Subjective Remarks S/P Right Thoracotomy and right Upper lobe biopsies and Decortication. Still Has a leak from chest tube. Has SOB at Rest . On o2 at 4 L N/C. C/O Chest pain and back pain Has some subcutaneous emphysema. Dialysis done. Has some redness at chest tube site Will go to [facility] for Endo Bronchial valve placement Objective Vital Signs Date Time Temp Pulse Resp B/P (MAP) Pulse Ox O2 Delivery O2 Flow Rate FiO2 01/18/17 15:00 97.9 89 21 135/76 (95) 97 01/18/17 15:00 97 Nasal Cannula 3.00 Humidified 01/18/17 15:00 93 01/18/17 14:00 96 01/18/17 13:00 88 01/18/17 12:00 100 01/18/17 11:15 20 01/18/17 11:00 96 Nasal Cannula 4.00 Humidified 01/18/17 11:00 98 20 127/80 (96) 96 01/18/17 11:00 107 01/18/17 10:00 97 01/18/17 09:00 104 01/18/17 08:00 87 01/18/17 07:31 97 Nasal Cannula 4.00 01/18/17 07:00 100 Nasal Cannula 4.00 Humidified 01/18/17 07:00 98.0 89 20 139/88 (105) 100 01/18/17 07:00 84 01/18/17 06:16 83 01/18/17 05:03 88 01/18/17 04:36 83 01/18/17 03:40 85 01/18/17 03:40 98 Nasal Cannula 4.00 01/18/17 03:40 98.0 85 18 136/79 (98) 98 01/18/17 02:03 87 01/18/17 01:40 90 01/18/17 00:24 97 01/17/17 23:37 98.2 100 17 125/74 (91) 96 01/17/17 23:37 96 Nasal Cannula 4.00 01/17/17 23:37 104 01/17/17 22:00 96 01/17/17 21:00 100 01/17/17 20:00 92 01/17/17 19:40 100 Nasal Cannula 4.00 01/17/17 19:33 99 Nasal Cannula 4.00 01/17/17 19:30 88 01/17/17 19:30 97.8 95 18 139/67 (91) 96 01/17/17 18:00 94 01/17/17 17:00 85 I/O 01/17/17 01/17/17 01/17/17 01/18/17 01/18/17 01/18/17 07:00 15:00 23:00 07:00 15:00 23:00 Intake Total 480 ml 480 ml 480 ml Output Total 620 ml 520 ml 265 ml Balance -140 ml -40 ml 215 ml Intake Oral 480 ml 480 ml IV Total 480 ml Output Urine Total 500 ml 400 ml 175 ml Chest Tube Drainage Total 120 ml 120 ml 90 ml # Bowel Movements 0 1 Result Diagram: 01/17/1740901/17/17409 Procedures Right thoracotomy with VATS assist, lysis of adhesions, decortication, pleural biopsies and cultures, right upper lobe biopsies and cultures 12/30 Objective Remarks GENERAL: This is a middle-aged averagely built white male who is alert and in No distress . HEAD, EYES, EARS, NOSE, THROAT: Head normocephalic. The pupils are reactive. Throat is clear. NECK: The neck is supple. No bruits. No thyroid enlargement. No lymphadenopathy.Subcutaneous emphysema of chest wall on right .Has yellow drainage from around chest tube. CHEST: Equal movements. wheeze heard over Right chest and occ Crackles. HEART: Heart sounds are regular. S1 and S2. No murmur. ABDOMEN: Abdomen is soft and nontender. No masses EXTREMITIES:No edema. No calf tenderness. NEUROLOGIC: Reflexes are normal. No focal deficits. SKIN: Warm. Assessment and Plan Assessment and Plan IMPRESSION: 1. Extensive right lung pneumonia with hypoxemia. 2. Chronic kidney disease with acute renal failure. 3. COPD with emphysema and chronic bronchitis. 4. History of coronary artery bypass grafting. Plan : 1. Chest tube to drain. 2. O2 34 L. N/C 3. Nebs qid , duoneb 4. IS at bedside qid. 5. CXR in am 6. Cont Prednisone 10 mg daily. 7. Transfer to [facility] . Alison Wilson MD Jan 18, 2017 16:10
[2017-01-18] MEDS: PANTOPRAZOLE SOD 40 MG DELAYED RELEASE TAB PO SCH (21:36)
[2017-01-19] VITALS (23 sets, daily range): BP systolic 122–138; BP diastolic 78–82; PULSE 85–120; RESP 16–18; TEMP 98–98.7; O2SAT 95–99
[2017-01-19 04:29] LABS: HEMATOCRIT 26.9 % (39.0-51.0); MEAN CELL VOLUME 91.7 FL (80.0-100.0); MEAN CORPUSCULAR HEMOGLOBIN 30.1 PG (27.0-34.0); MEAN CORPUSCULAR HGB CONC 32.8 % (32.0-36.0); PLATELET COUNT 326 TH/MM3 (150-450); RED BLOOD COUNT 2.94 MIL/MM3 (4.50-5.90); RED CELL DISTRIBUTION WIDTH 16.1 % (11.6-17.2); REVIEW FLAG FINAL; WHITE BLOOD COUNT 8.7 TH/MM3 (4.0-11.0)
[2017-01-19 05:01] LABS: BICARBONATE 27.6 MEQ/L (21.0-32.0); POTASSIUM 4.5 MEQ/L (3.5-5.1)
--- NOTE | 2017-01-19 05:52 | RADRPT ---
EXAM DATE/TIME: 01/19/2017 05:25 [place] COMPARISON: CHEST SINGLE AP, January 13, 2017, 12:12. INDICATIONS : Shortness of breath, possible pulmonary disease. MEDICAL HISTORY : Chronic obstructive pulmonary disease. Cardiovascular disease. Hypertension. SURGICAL HISTORY : CABG. ENCOUNTER: Subsequent ACUITY: 2 weeks PAIN SCORE: 0/10 LOCATION: Bilateral chest FINDINGS: The cardiac silhouette is normal in transverse diameter. Median sternotomy wires are present. A perma cath is in place via right internal jugular approach with its tip in the superior vena cava. There is no evidence of pneumothorax. There is continued diffuse right sided pneumonia CONCLUSION: 1. Diffuse right-sided pneumonia. There has been no significant change when compared to the prior exa m. There is no evidence of pneumothorax. Rikki Austin MD on January 19, 2017 at 5:49 Board Certified Radiologist. This report was verified electronically.
[2017-01-19] MEDS: RESP: BUDESONIDE 0.5 MG/2 ML NEB NEB SCH ×2 (07:29→20:13)
[2017-01-19] MEDS: SEVELAMER CARBONATE 800 MG TAB PO SCH ×3 (08:00→17:00)
[2017-01-19] MEDS: LACTOBACILLUS ACIDOPHILUS TAB PO SCH ×2 (08:26→20:51)
[2017-01-19] MEDS: CHOLECALCIFEROL (VIT D3) 1000 UNIT TAB PO SCH (08:28)
[2017-01-19] MEDS: CYCLOBENZAPRINE HCL 10 MG TAB PO PRN (08:28)
[2017-01-19] MEDS: predniSONE 10 MG TAB PO SCH (08:28)
[2017-01-19] MEDS: DOCUSATE SODIUM 100 MG CAP PO SCH ×2 (08:28→20:51)
[2017-01-19] MEDS: SODIUM CHLORIDE 0.9% FLUSH 5 ML FLUSH IV FLUSH SCH ×2 (08:29→20:51)
[2017-01-19] MEDS: SODIUM CHLORIDE 0.9% FLUSH 10 ML FLUSH IV FLUSH PRN (08:29)
[2017-01-19] MEDS: POLYETHYLENE GLYCOL 17 GM PKG PO SCH (08:29)
[2017-01-19] MEDS: ENOXAPARIN SODIUM 30 MG/0.3 ML SYRINGE SQ SCH (09:43)
[2017-01-19] MEDS: CEFEPIME INJ 1,000 MG in SODIUM CHLORIDE 0.9% INJ 100 ML IV SCH ×2 (11:00→21:50)
--- NOTE | 2017-01-19 11:01 | HHI.NPPN ---
Subjective General Problems: Anemia Renal Failure: Acute Interval History Resting in bed. Chest tube remains. No bed available at [facility]. Due today for dialysis. (Milla Pack) Review of Systems General Constitutional: Fatigue (Milla Pack) Respiratory Lungs: SOB, Cough, Sputum (Milla Pack) Musculoskeletal MS: Pain/Stiffness (Milla Pack) Objective Data Data Vital Signs Date Time Temp Pulse Resp B/P (MAP) Pulse Ox O2 Delivery O2 Flow Rate FiO2 01/19/17 07:29 96 Nasal Cannula 3.00 01/19/17 06:01 87 01/19/17 04:26 86 01/19/17 03:38 95 Nasal Cannula 3.00 01/19/17 03:38 98.0 93 17 135/81 (99) 95 01/19/17 03:38 102 01/19/17 02:11 89 01/19/17 01:22 85 01/19/17 00:04 95 01/18/17 23:50 98.1 92 19 136/81 (99) 95 01/18/17 23:50 96 Nasal Cannula 4.00 01/18/17 23:50 90 01/18/17 22:40 78 01/18/17 21:00 82 01/18/17 20:00 80 01/18/17 19:40 99 01/18/17 19:40 97.9 91 18 133/84 (100) 100 01/18/17 19:40 100 Nasal Cannula 4.00 01/18/17 19:13 93 Nasal Cannula 2.00 01/18/17 18:00 92 01/18/17 17:00 91 01/18/17 16:00 92 01/18/17 15:00 97.9 89 21 135/76 (95) 97 01/18/17 15:00 97 Nasal Cannula 3.00 Humidified 01/18/17 15:00 93 01/18/17 14:00 96 01/18/17 13:00 88 01/18/17 12:00 100 01/18/17 11:15 20 01/18/17 11:00 96 Nasal Cannula 4.00 Humidified 01/18/17 11:00 98 20 127/80 (96) 96 01/18/17 11:00 107 (Milla Pack) -: 01/19/17 0347 01/19/17 0347 Imaging Last 72 hours Impressions Chest X-Ray 01/19/17 0600 Signed Impressions: Service Date/Time: Thursday, January 19, 2017 05:25 - CONCLUSION: 1. Diffuse right-sided pneumonia. There has been no significant change when compared to the prior exam. There is no evidence of pneumothorax. Rikki Austin MD Tubes & Lines: Perma-Cath Tubes & Lines Comment chest tube right. (Milla Pack) Physical Exam General Appearance: No Acute Distress, Comfortable, Pale, Sleeping, Malnourished (Milla Pack) Eyes Eye Exam: Pupils Equal, Pupils Reactive (Milla Pack) Throat Throat Exam: Oral Mucosa [place] & Moist (Milla Pack) Neck Neck Exam: Neck Supple (Milla Pack) Pulmonary Resp Exam: No Distress, Crackles, Rhonchi, Decreased Bases Resp Remarks course right side lung sounds; chest tube right subcutaneous air mostly resolved (Milla Pack) Cardiology CV Exam: Regular, Normal Sinus Rhythm, Good Perfusion (Milla Pack) Gastrointestinal/Abdomen GI Exam: Soft, Non-Tender, Bowel Sounds Present, Positive Bowel Movement (Milla Pack) Musculoskeletal MS Exam: Joints Intact, Normal Gait, Normal Tone, Atrophy (Milla Pack) Integumentary Skin Exam: Clear, Warm, Dry, Intact (Milla Pack) Extremeties Extremities Exam: No Edema (Milla Pack) Neurologic Neuro Exam: Alert, Awake, Oriented (Milla Pack) Psychiatric Psych Exam: Appropriate Responses (Milla Pack) Assessment/Plan Discussed Condition With: Patient Assessment Summary: SEJAL/Acute Renal Failure, Anemia of CKD Electrolyte Assessment: Metabolic Acidosis Problem List: (1) Chronic kidney disease, stage 5 ICD Codes: N18.5 - Chronic kidney disease, stage 5 Status: Chronic Plan: Patient likely has reached ESRD. s/p renal biopsy this admission. Continue dialysis support MWF.He is due today. He is non oliguric, makes quite a bit of urine Intermittently obtain metabolic profile Continue nutritional support with meals; on high protein diet AVF creation failed. He will need permanent HD access placed but too unstable currently. To be addressed at a later date. (2) Pneumonia ICD Codes: J18.9 - Pneumonia, unspecified organism Status: Resolved Plan: Pulmonary and CTS surgery are following, s/p bronchoscopy and thoracotomy with decortication Biopsy negative for pulmonary aspergillus fungal ball in right lung s/p right thoracotomy 12/30 with chest tube placement; had air leak that CTS is managing with pulmonary Concerns for bronchopleural fistula, needs surgical correction; To be transferred to [facility]. Awaiting bed placement (3) Hypokalemia ICD Codes: E87.6 - Hypokalemia Status: Resolved Plan: previously thought to have a proximal renal tubular disorder off daily replacement Adjust dialysate as needed Follow BMP (4) Hypocalcemia ICD Codes: E83.51 - Hypocalcemia Plan: Continue to treat hyperphosphatemia, on Sevelamer with meals. (5) Anemia ICD Codes: D64.9 - Anemia Status: Chronic Plan: Transfuse as needed, one unit ordered for transfusion 01/16 Continue high dose of Epogen with dialysis. Check CBC intermittently; goal Hb > 7 (6) Acidosis ICD Codes: E87.2 - Acidosis Status: Acute Plan: corrected with dialysis , monitor (7) GI bleed ICD Codes: K92.2 - Gastrointestinal hemorrhage, unspecified Status: Acute Plan: GI has signed off; s/p EGD/colonoscopy may need capsule endoscopy outpatient (Milla Pack) Plan patient was seen and examined. Agree with above assessment and plan. (Jim Zuluaga MD) Problem Qualifiers (1) Pneumonia: Qualified Codes: J18.1 - Lobar pneumonia, unspecified organism (2) Anemia: Qualified Codes: N18.5 - Chronic kidney disease, stage 5; D63.1 - Anemia in chronic kidney disease (3) GI bleed: Milla Pack Jan 19, 2017 11:01 Jim Zuluaga MD Jan 19, 2017 11:16
[2017-01-19] MEDS: ASCORBIC ACID 500 MG TAB PO SCH ×2 (12:00→17:00)
[2017-01-19] MEDS: FERROUS SULFATE 325 MG (65 MG ELEMENTAL IRON) TAB PO SCH ×2 (12:00→17:00)
--- NOTE | 2017-01-19 13:15 | HHI.PR ---
Subjective Remarks no major overnight events afebrile denies cp/sob states had some neck pain relieved by flexeril, however feels sleepy Objective Vitals Vital Signs Date Time Temp Pulse Resp B/P (MAP) Pulse Ox O2 Delivery O2 Flow Rate FiO2 01/19/17 12:35 99 01/19/17 11:54 98.6 96 18 138/82 (100) 97 01/19/17 11:54 96 01/19/17 11:54 97 Nasal Cannula 3.00 01/19/17 10:00 92 01/19/17 09:00 98 01/19/17 08:00 89 01/19/17 07:29 96 Nasal Cannula 3.00 01/19/17 07:00 97 01/19/17 07:00 95 Nasal Cannula 3.00 01/19/17 07:00 98.7 95 18 125/78 (94) 95 01/19/17 06:01 87 01/19/17 04:26 86 01/19/17 03:38 95 Nasal Cannula 3.00 01/19/17 03:38 98.0 93 17 135/81 (99) 95 01/19/17 03:38 102 01/19/17 02:11 89 01/19/17 01:22 85 01/19/17 00:04 95 01/18/17 23:50 98.1 92 19 136/81 (99) 95 01/18/17 23:50 96 Nasal Cannula 4.00 01/18/17 23:50 90 01/18/17 22:40 78 01/18/17 21:00 82 01/18/17 20:00 80 01/18/17 19:40 99 01/18/17 19:40 97.9 91 18 133/84 (100) 100 01/18/17 19:40 100 Nasal Cannula 4.00 01/18/17 19:13 93 Nasal Cannula 2.00 01/18/17 18:00 92 01/18/17 17:00 91 01/18/17 16:00 92 01/18/17 15:00 97.9 89 21 135/76 (95) 97 01/18/17 15:00 97 Nasal Cannula 3.00 Humidified 01/18/17 15:00 93 01/18/17 14:00 96 I/O 10/15/17 10/15/01/18/17 01/19/17 01/19/17 01/19/17 07:00 15:00 23:00 07:00 15:00 23:00 Intake Total 480 ml 720 ml 240 ml Output Total 265 ml 980 ml 480 ml Balance 215 ml -260 ml -240 ml Intake Oral 720 ml 240 ml IV Total 480 ml Output Urine Total 175 ml 850 ml 400 ml Chest Tube Drainage Total 90 ml 130 ml 80 ml Result Diagram: 01/19/17 0347 01/19/17 0347 Imaging Last Impressions Chest X-Ray 01/19/17 0600 Signed Impressions: Service Date/Time: Thursday, January 19, 2017 05:25 - CONCLUSION: 1. Diffuse right-sided pneumonia. There has been no significant change when compared to the prior exam. There is no evidence of pneumothorax. Rikki Austin MD Lung Biopsy CT 12/23/16 0000 Signed Impressions: Service Date/Time: Friday, December 23, 2016 09:37 - CONCLUSION: Uncomplicated CT guided biopsy/aspiration. Broderick Ndiaye MD Chest CT 12/17/16 1715 Signed Impressions: Service Date/Time: Saturday, December 17, 2016 17:51 - CONCLUSION: 1. Dense consolidation persists in the right upper lobe with air bronchograms and air filled cystic spaces. Debris versus possible fungus ball in one of the cystic spaces at the apex which is new. Multi-organism pneumonia suspected. 2. Non-consolidative patchy infiltrate of the right middle and lower lobes not significantly changed. 3. Decreased pleural effusion on the right, now trace. Completely resolved pleural effusion on the left. 4. Previous median sternotomy. Caio Wray MD Upper Extremity Ultrasound 12/04/16 0000 Signed Impressions: Service Date/Time: November 18:26 - CONCLUSION: Venous mapping as delineated above. The cephalic veins are abnormal bilaterally. Caio Villalpando MD Renal Biopsy CT 12/02/16 1350 Signed Impressions: Service Date/Time: Friday, December 02, 2016 08:33 - CONCLUSION: Uncomplicated CT guided biopsy of the right kidney for function. Mustapha Vela Jr., MD Catheter Placement X-Ray 11/28/16 0000 Signed Impressions: Service Date/Time: Monday, November 28, 2016 15:57 - CONCLUSION: Uncomplicated PermaCath placement as above. Mustapha Vela Jr., MD Renal Ultrasound 11/22/16 0000 Signed Impressions: Service Date/Time: Tuesday, November 22, 2016 17:14 - CONCLUSION: Mild pelvocaliectasis right kidney not present previously. Obdulia Garcia MD Objective Remarks GENERAL: cachectic appearing middle-aged male, lying in bed, resting. on nonrebreather facemask SKIN: No rashes, ecchymoses or lesions. Cool and dry. HEAD: Atraumatic. Normocephalic. No temporal or scalp tenderness. EYES: Pupils equal round and reactive. Pallor present. No scleral icterus. No injection or drainage. ENT: Nose without bleeding, purulent drainage or septal hematoma. Airway patent. NECK: Trachea midline. No JVD CARDIOVASCULAR: Regular rate and rhythm. Well-healed sternotomy incision. Dressing over right thoracotomy site, chest tube in place with 1+ air leak RESPIRATORY: Decreased BS on right. Subcutaneous emphysema over chest wall. Rhonchi over right lung field, left lung field appears clear with no wheezing or crackles. Right sided chest tube in place with positive air leak - erythema around chest tube with minimal yellowish discharge. GASTROINTESTINAL: Abdomen soft, non-tender, nondistended. No guarding. MUSCULOSKELETAL: Extremities without clubbing, cyanosis, or edema. There is tenderness to palpation over the right trapezius muscle. NEUROLOGICAL: Awake alert and oriented 3. Muscle strength 5/5 in all extremities. Speech normal. Procedures 11/28/2016 Right Internal Jugular Hemodialysis Catheter Tunneled Placement dual lumen 12/02/2016 Successful right renal biopsy for function. Gelfoam and thrombin utilized. No bleeding on post CT Lung Biopsy 12/23/16. Dialysis 12/24/16. Medications and IVs Current Medications Medications (Trade) Dose Ordered Sig/Edwin Route Start Time Stop Time Status Last Admin (Mag-Al Plus Susp Liq) 30 ml Q6H PRN PO 11/24/16 13:15 (Restoril) 15 mg HS PRN PO 11/24/16 13:15 12/31/16 23:22 (Vitamin D3) 2,000 units DAILY PO 11/25/16 09:15 01/19/17 08:28 (Lactinex) 1 tab Q12HR PO 11/26/16 21:00 01/19/17 08:26 Sodium Chloride 1,000 ml @ 0 mls/hr Q0M PRN OTHER 11/28/16 15:28 12/29/16 16:10 (Heparin Inj) 8,000 units UNSCH PRN IVF 11/28/16 15:30 Future Hold 01/12/17 08:39 Sodium Chloride 1,000 ml @ 200 mls/hr Q5H PRN IV 11/28/16 15:28 Sodium Chloride 1,000 ml @ 0 mls/hr Q0M PRN OTHER 11/28/16 15:28 11/30/16 12:02 (Mannitol Inj) 12.5 gm UNSCH PRN IV 11/28/16 15:30 (Albumin 25% Inj) 25 gm UNSCH PRN IV 11/28/16 15:30 01/16/17 08:38 (NS Flush) 5 ml UNSCH PRN IV FLUSH 11/28/16 15:30 01/19/17 08:29 (Heparin Inj) UNSCH PRN .XX 11/28/16 15:30 01/12/17 08:42 (Gentamicin (Dialysis) Inj) 20 mg UNSCH PRN IV 11/28/16 15:30 01/16/17 08:39 (Zofran Inj) 4 mg UNSCH PRN IV 11/28/16 15:30 (Tylenol) 650 mg UNSCH PRN PO 11/28/16 15:30 12/19/16 13:06 (Benadryl) 25 mg UNSCH PRN PO 11/28/16 15:30 12/19/16 13:06 (Nitrostat Sl) 0.4 mg UNSCH PRN SL 11/28/16 15:30 (Gelfoam 12 Mm/7 Mm Top) 1 foam UNSCH PRN TOP 11/28/16 15:30 (NS Flush) UNSCH PRN IVF 11/28/16 18:15 (Heparin Inj) UNSCH PRN IV FLUSH 11/28/16 18:15 Future Hold (Duoneb Neb) 1 ampule Q4HR NEB PRN NEB 11/29/16 12:30 12/31/16 15:54 (Benadryl) 25 mg Q8H PRN PO 11/30/16 10:00 12/31/16 23:23 (Renvela) 1,600 mg TIDAC PO 12/03/16 17:00 01/18/17 13:30 (Robitussin Ac 200-20 Mg/10 ml Liq) 10 ml Q6H PRN PO 12/15/16 14:00 01/05/17 02:24 (Epogen Inj) 10,000 units UNSCH PRN IV 12/17/16 09:30 01/12/17 08:40 (Epogen Inj) 4,000 units UNSCH PRN IV 12/17/16 09:45 01/07/17 10:56 (Cepacol Extra Elenita (Sugar Free)) 1 lozenge Q2HR PRN BUCCAL 12/23/16 09:00 ([place] 5-325 Mg) 1 tab Q4H PRN PO 12/25/16 09:15 01/15/17 23:15 (Ferrous Sulfate) 325 mg BID@,17 PO 12/29/16 12:00 01/18/17 17:56 (Vitamin C) 500 mg BID@1200,1700 PO 12/29/16 12:00 01/18/17 17:56 (Symbicort 160-4.5 Inh) 1 puff Q12HR INH 12/30/16 21:00 Future Hold (Albuterol Neb) 2.5 mg Q2HR NEB PRN NEB 12/30/16 16:45 01/07/17 23:47 (Pulmicort Respule Neb) 0.5 mg BID NEB NEB 12/30/16 20:00 01/19/17 07:29 (NS Flush) 2 ml BID IV FLUSH 12/30/16 21:00 01/19/17 08:29 (NS Flush) 2 ml UNSCH PRN IV FLUSH 12/30/16 16:45 (Protonix) 40 mg HS PO 12/30/16 21:00 01/18/17 21:36 (Zofran Inj) 4 mg Q6H PRN IV PUSH 12/30/16 16:45 (Milk Of Magnesia Liq) 30 ml DAILY PRN PO 12/30/16 16:45 (Tylenol) 650 mg Q4H PRN PO 12/30/16 16:45 (Colace) 100 mg BID PO 12/31/16 10:00 01/19/17 08:28 (Miralax) 17 gm DAILY PO 12/31/16 10:00 01/17/17 09:03 (Lovenox Inj) 30 mg EVERY OTHER DAY SQ 01/05/17 15:00 01/19/17 09:43 (fentaNYL INJ) 25 mcg Q4H PRN IV PUSH 01/06/17 14:45 01/07/17 13:00 ([place] 5-325 Mg) 2 tab Q4H PRN PO 01/06/17 14:45 01/18/17 23:10 (Pill Splitter) 1 ea UNSCH PRN OTHER 01/08/17 19:15 (Deltasone) 10 mg DAILY PO 01/13/17 09:00 01/19/17 08:28 (Flexeril) 5 mg Q8H PRN PO 01/18/17 13:15 01/19/17 08:28 Cefepime HCl 1000 mg/Sodium Chloride 100 ml @ 200 mls/hr Q24H IV 01/19/17 11:00 Urinary Catheter: No A/P Problem List: (1) Sepsis ICD Code: A41.9 - Sepsis, unspecified organism Status: Resolved (2) Acute renal failure ICD Code: N17.9 - Acute kidney failure, unspecified Status: Resolved (3) Pneumonia ICD Code: J18.9 - Pneumonia, unspecified organism Status: Resolved (4) Coronary artery disease ICD Code: I25.10 - Coronary artery disease Status: Chronic (5) Anemia ICD Code: D64.9 - Anemia Status: Chronic (6) Hematochezia ICD Code: K92.1 - Melena Status: Resolved (7) Hypokalemia ICD Code: E87.6 - Hypokalemia Status: Resolved (8) Chronic kidney disease, stage 5 ICD Code: N18.5 - Chronic kidney disease, stage 5 Status: Chronic (9) AVF (arteriovenous fistula) ICD Code: I77.0 - Arteriovenous fistula, acquired Status: Chronic (10) Right thoracotomy with VATS assist, lysis of adhesions, decortication, pleural biopsies Status: Acute (11) Neck pain on right side ICD Code: M54.2 - Cervicalgia Assessment and Plan Mr. Fonseca is a 55-year-old male patient with a known medical history of CAD s/ p CABG and CKD who presented to the ED with complaints of increasing dyspnea, generalized weakness, fevers and frequent diaphoresis x 2 weeks. Sepsis on admission suspect secondary to right multilobular pneumonia-resolved Dense cavitary pneumonia of the right lung - Pulmonary consulted and following. - Completed cefepime 1 g every 12 hours on 12/06/16 - Cardiothoracic Surgery and ID consulted. - Negative Aspergillus titers. - fu ID recommendations. Chronic obstructive pulmonary disease Acute Respiratory failure Extensive right lung pneumonia with cavitation - CT chest 11/26 dense consolidative right upper lobe pneumonia with severe emphysema with cavitary foci within the consolidated areas, patchy right middle and lower lobe pneumonia - Pulmonary following - RUL BAL 12/05 negative for malignant cells - CT guided bx 12/23 negative for fungus, AFB or malignancy. Substantial fibrosis noted. - Sputum culture negative. Bronchial cultures negative. Negative Aspergillus titers. - Continue scheduled and PRN duonebs. - Continue Robitussin Ac prn cough - Supplemental O2 to keep sats >88%. - Patient sp right thoracotomy, lysis of adhesions, decortication, pleural biopsy on 12/30. -Patient on high flow nasal cannula at 45%. Patient was transitioned from February with a mask. 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 Pulmonary following. Awaiting transfer to [facility] for evaluation by interventional pulmonary for management of persistent air leak. 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 ESRD on Hemodyalisis - Per nephrology will need terminal system operator dialysis (MWF). - Patient underwent AV fistula surgery on 12/10/2016. However, patient may need AV graft. - US kidney/renal/bladder ordered and reviewed showing mild pelvocaliectasis right kidney. 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 Continue to monitor BUN/ creatinine, strict I's and O's and avoid nephrotoxins. Normochromic, normocytic anemia suspect secondary to acute blood loss/ hematochezia - Transfused total of 6 PRBCs since admission, and transfuse for HgB<7.0 - Continue Protonix 40 mg twice a day - EGD/Colonoscopy on 12/18/2016 - No major findings, no bleeding source. May need capsule endoscopy as outpt. GI has signed off. - Hgb 7.0 on 12/24, repeat H&H. Transfuse is 7.0 or less. - Epogen per Nephrology - 01/15 Hemoglobin stable at 8.1. Continue to monitor CBC - 01/16 11 dropped down to 7.2. No obvious signs of bleeding. Transfuse 1 unit of packed blood cells. Continue to monitor CBC. The case was discussed with the cardiothoracic PA. - 01/17 sp transfusion of 1 unit PRBC on 01/16 with appropriate response of the hemoglobin. Continue to monitor CBC. - 04/21 hemoglobin stable at 8.8. Continue. Hyperkalemia - 12/31 sp IV insulin + D50 and Kayexalate. Repeat BMP. - Resolved. COPD Exacerbation - Sp treatment with IV steroids an po Levaquin, now on prednisone taper as per pulmonology. Cellulitis - Chest tube entrance site is erythematous and there is purulent discharge observed. as per RN CT surgeon states looks better. Continue wound care. Will reconsult ID for advice on further management. I will also obtain a wound culture. Monitor for fevers or any other signs of infection. - ID reconsulted - Discussed case with Dr Fontanez - monitor iff antibiotics for now. Full code. DVT Prophylaxis: SCDs/TEDs., Ambulation. discussed with RN. Discharge Planning Patient awaiting transfer to [facility]. Problem Qualifiers (1) Sepsis: (2) Acute renal failure: Qualified Codes: N17.8 - Other acute kidney failure (3) Pneumonia: Qualified Codes: J18.1 - Lobar pneumonia, unspecified organism (4) Coronary artery disease: Qualified Codes: I25.119 - Atherosclerotic heart disease of [place] coronary artery with unspecified angina pectoris (5) Anemia: Qualified Codes: N18.5 - Chronic kidney disease, stage 5; D63.1 - Anemia in chronic kidney disease Juanjo Rush MD Jan 19, 2017 13:15
[2017-01-19] MEDS: EPOETIN ALFA 10,000 UNITS/ML VIAL IV PRN (15:25)
[2017-01-19] MEDS: EPOETIN ALFA 4,000 UNITS/ML VIAL IV PRN (15:26)
[2017-01-19] MEDS: HEPARIN SODIUM - IV 10,000 UNITS/10 ML VIAL PRN (15:26)
[2017-01-19] MEDS: GENTAMICIN SULFATE (DIALYSIS USE ONLY) 20 MG/2 ML VIAL IV PRN (15:27)
[2017-01-19] MEDS: ACETAMINOPHEN/HYDROcodone 325 MG/5 MG TAB PO PRN ×2 (17:01→22:49)
--- NOTE | 2017-01-19 17:45 | PD.CAR.PN ---
CVT Progress Note Subjective/Hospital Course: ct guided lung bx / no fungal elements Dr Claire Lott requesting re-eval for possible thoractomy discussed with pt right thoracotomy for pulmonary resection Dr Roth will discuss further with pt on Thursday tentatively scheduled for case 12/29 Dr Roth discussed surgery / risks / procedure with pt / he ia agreeable to proceed for surgery in am 12/30 Right thoracotomy with VATS assist, lysis of adhesions, decortication, pleural biopsies and cultures, right upper lobe biopsies and cultures Right upper lobe resection was considered, but not technically feasible due to the dense consolidation, inflammation, and frozen hilum associated. 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 Denies dyspnea and comfortable 01/04/17 Persistent large air leak. No complaints otherwise 01/05/17 c/o pain related to chest tube site and pleuritic irritation. air leak a little better this morning. PATH still pending from biopsies submitted at the time of surgery last week. 01/06/17 still has extensive air leak ct to 20cm suction + sub q emphysema bilateral anterior chest wall and shoulders path pending will dc door captain MS, prn norco for pain / breakthrough fentanly 10/ persistent air leak +4 subq emphysema improving to chest still get very SOB with any exertion receiving dialysis at this time pain controlled 10/5 pt remains in CVICU was on high flow last pm 25liters no further air leak noted in chest tube chamber, less subq emphysema noted pt encouraged to ask for pain meds to improve pulm toileting chest xray, no PTX path pending , will get pt OOB to chair appreciate CCM 10/6 pt now with recurrent air leak + 4-5, remains at 30cm suction cxr noted, + subq emphysema , some consolidation right perihilar region wean high flow 02 slowly , now at 20 liters / 60% fi02 OOB to chair as tolerated pain control, s/p dialysis today 01/11 Persistent air-leak Vitals stable Continue CT. Dr. Roth to determine further therapy 01/12 was still on 45% F102, 30 liters high flow [address] Roth and Dr Mackay recommend transferring pt to tertiary center for broncho fistula closure Pulm accepting Dr Cody Lopez, Hospitalist Dr Palmer await accepting bed at this time will try to wean to 100% NRB to see if pt tolerates OOB today after dialysis 01/13 discharge summary done , see dictation 01/14 still waiting on bed at [facility] still has + 5 air leak now on 4 liter nasal cannula dialysis today 01/15 still waiting on bed at [facility] + 5 air leak, some chest soreness tolerating 02 at 5 liters 01/16 now on 4.5liters, still with + 5 air leak c/o of right sided chest discomfort still waiting on bed at [facility] in [place] sub q emphysema improved 01/19 +1 air leak in chest tube / drained 110cc/ 12 hrs still waiting on transfer be at [facility] GNR to right chest tube site, ID following Objective: Vital Signs Date Time Temp Pulse Resp B/P (MAP) Pulse Ox O2 Delivery O2 Flow Rate FiO2 01/19/17 17:06 108 01/19/17 12:35 99 01/19/17 11:54 98.6 96 18 138/82 (100) 97 01/19/17 11:54 96 01/19/17 11:54 97 Nasal Cannula 3.00 01/19/17 10:00 92 01/19/17 09:00 98 01/19/17 08:00 89 01/19/17 07:29 96 Nasal Cannula 3.00 01/19/17 07:00 97 01/19/17 07:00 95 Nasal Cannula 3.00 01/19/17 07:00 98.7 95 18 125/78 (94) 95 01/19/17 06:01 87 01/19/17 04:26 86 01/19/17 03:38 95 Nasal Cannula 3.00 01/19/17 03:38 98.0 93 17 135/81 (99) 95 01/19/17 03:38 102 01/19/17 02:11 89 01/19/17 01:22 85 01/19/17 00:04 95 01/18/17 23:50 98.1 92 19 136/81 (99) 95 01/18/17 23:50 96 Nasal Cannula 4.00 01/18/17 23:50 90 01/18/17 22:40 78 01/18/17 21:00 82 01/18/17 20:00 80 01/18/17 19:40 99 01/18/17 19:40 97.9 91 18 133/84 (100) 100 01/18/17 19:40 100 Nasal Cannula 4.00 01/18/17 19:13 93 Nasal Cannula 2.00 01/18/17 18:00 92 Result Diagram: 01/19/1734601/19/17346 (1) Pulmonary infiltrate in right lung on chest x-ray Plan: pulm toileting nebs, ezpap OOB ambulate consult PT keep chest tube to 20cm suction now on 3 liters 02 transfer to [facility] Dr Lopez, pulmonary medicine , when bed available (2) Pneumonia Plan: post ABX/ ID signed off (3) Right thoracotomy with VATS assist, lysis of adhesions, decortication, pleural biopsies Plan: path organizing PNA, BOOP bronchiolitis obliterans organizing pneumonia , parenchymal fibrosis low dose steroids Problem Qualifiers (1) Pneumonia: Qualified Codes: J18.1 - Lobar pneumonia, unspecified organism Marly Heart Jan 19, 2017 17:45
--- NOTE | 2017-01-19 19:23 | HHI.PR ---
Subjective Remarks S/P Right Thoracotomy and right Upper lobe biopsies and Decortication. Still Has a leak from chest tube. Has SOB at Rest . On o2 at 4 L N/C. C/O Chest pain and CXR shows a Right infiltrate Dialysis done. Will go to [facility] for Endo Bronchial valve placement Objective Vital Signs Date Time Temp Pulse Resp B/P (MAP) Pulse Ox O2 Delivery O2 Flow Rate FiO2 01/19/17 18:16 101 01/19/17 18:15 18 01/19/17 17:06 108 01/19/17 12:35 99 01/19/17 11:54 98.6 96 18 138/82 (100) 97 01/19/17 11:54 96 01/19/17 11:54 97 Nasal Cannula 3.00 01/19/17 10:00 92 01/19/17 09:00 98 01/19/17 08:00 89 01/19/17 07:29 96 Nasal Cannula 3.00 01/19/17 07:00 97 01/19/17 07:00 95 Nasal Cannula 3.00 01/19/17 07:00 98.7 95 18 125/78 (94) 95 01/19/17 06:01 87 01/19/17 04:26 86 01/19/17 03:38 95 Nasal Cannula 3.00 01/19/17 03:38 98.0 93 17 135/81 (99) 95 01/19/17 03:38 102 01/19/17 02:11 89 01/19/17 01:22 85 01/19/17 00:04 95 01/18/17 23:50 98.1 92 19 136/81 (99) 95 01/18/17 23:50 96 Nasal Cannula 4.00 01/18/17 23:50 90 01/18/17 22:40 78 01/18/17 21:00 82 01/18/17 20:00 80 01/18/17 19:40 99 01/18/17 19:40 97.9 91 18 133/84 (100) 100 01/18/17 19:40 100 Nasal Cannula 4.00 I/O 01/18/17 01/18/17 01/18/17 01/19/17 01/19/17 01/19/17 07:00 15:00 23:00 07:00 15:00 23:00 Intake Total 480 ml 720 ml 240 ml 480 ml Output Total 265 ml 980 ml 480 ml 1360 ml Balance 215 ml -260 ml -240 ml -880 ml Intake Oral 720 ml 240 ml 480 ml IV Total 480 ml Output Urine Total 175 ml 850 ml 400 ml 350 ml Chest Tube Drainage Total 90 ml 130 ml 80 ml 110 ml Hemodialysis 900 ml # Bowel Movements 0 Result Diagram: 01/19/17 0347 01/19/17 0347 Procedures Right thoracotomy with VATS assist, lysis of adhesions, decortication, pleural biopsies and cultures, right upper lobe biopsies and cultures 12/30 Objective Remarks GENERAL: This is a middle-aged averagely built white male who is alert and in No distress . HEAD, EYES, EARS, NOSE, THROAT: Head normocephalic. The pupils are reactive. Throat is clear. NECK: The neck is supple. No bruits. No thyroid enlargement. No lymphadenopathy. CHEST: Equal movements. wheeze heard over Right chest and occ Crackles. HEART: Heart sounds are regular. S1 and S2. No murmur. ABDOMEN: Abdomen is soft and nontender. No masses EXTREMITIES:No edema. No calf tenderness. NEUROLOGIC: Reflexes are normal. No focal deficits. SKIN: Warm. Assessment and Plan Assessment and Plan IMPRESSION: 1. Extensive right lung pneumonia with hypoxemia. 2. Chronic kidney disease with acute renal failure. 3. COPD with emphysema and chronic bronchitis. 4. History of coronary artery bypass grafting. Plan : 1. Chest tube to drain. 2. O2 34 L. N/C 3. Nebs qid , duoneb 4. IS at bedside qid. 5. CXR in am 6. Taper Prednisone 5 mg daily. 7. Antibiotics per ID ,cefipime 2 G IV daily Alison Wilson MD Jan 19, 2017 19:23
[2017-01-19] MEDS: PANTOPRAZOLE SOD 40 MG DELAYED RELEASE TAB PO SCH (20:52)
--- NOTE | 2017-01-19 22:39 | RADRPT ---
EXAM DATE/TIME: 01/19/2017 22:21 [place] COMPARISON: CT THORAX W/O CONTRAST, December 17, 2016, 17:51. CHEST SINGLE AP, January 10, 2017, 4:23. CHEST S ANGI AP, January 19, 2017, 5:25. INDICATIONS : Pneumonia. RADIATION DOSE: 3.71 CTDIvol (mGy) MEDICAL HISTORY : Hypertension. Chronic obstructive pulmonary disease. Cardiovascular disease Renal failure. SURGICAL HISTORY : CABG ENCOUNTER: Initial ACUITY: 1 day PAIN SCALE: 0/10 LOCATION: chest TECHNIQUE: Volumetric scanning of the chest was performed. Using automated exposure control and adjustment of t he mA and/or kV according to patient size, radiation dose was kept as low as reasonably achievable to obtain optimal diagnostic quality images. DICOM format image data is available electronically for r eview and comparison. Follow-up recommendations for detected pulmonary nodules are based at a minimum on nodule size and pa tient risk factors according to Fleischner Society Guidelines. FINDINGS: The left lung reveals evidence of emphysematous change. There is evidence of prior median sternotomy cardiac surgery and a right venous catheter seou type catheter in place. The right upper lobe consoli dation with air bronchograms and cystic spaces as well as volume loss persists. There is a right ches t tube in place entering in the anterior lateral lower chest and progressing posteriorly into the ple ural space post in the region of the upper lobe. Associated with this is a pneumothorax which posteri robert is up to 3.7 cm in diameter. There is a lobular contour of the pleura. CONCLUSION: Right chest tube in place terminating in the upper lobe region posteriorly in the ple ural space where there is a pneumothorax associated with consolidation in the right upper lobe and ri ght lung and there is lobular pleural thickening. The right upper lobe consolidation with air broncho grams and cystic spaces persists. Emphysematous changes are noted of the left lung. Ranjan Neville MD on January 19, 2017 at 22:32 Board Certified Radiologist. This report was verified electronically.
[2017-01-20] VITALS (30 sets, daily range): BP systolic 109–138; BP diastolic 74–84; PULSE 9–111; RESP 6–18; TEMP 97.8–98.4; O2SAT 93–96
[2017-01-20] MEDS: RESP: BUDESONIDE 0.5 MG/2 ML NEB NEB SCH ×2 (07:44→19:56)
[2017-01-20] MEDS: SEVELAMER CARBONATE 800 MG TAB PO SCH ×3 (08:05→18:32)
[2017-01-20] MEDS: CHOLECALCIFEROL (VIT D3) 1000 UNIT TAB PO SCH (08:06)
[2017-01-20] MEDS: ACETAMINOPHEN/HYDROcodone 325 MG/5 MG TAB PO PRN ×3 (08:06→23:12)
[2017-01-20] MEDS: DOCUSATE SODIUM 100 MG CAP PO SCH ×2 (08:06→21:38)
[2017-01-20] MEDS: LACTOBACILLUS ACIDOPHILUS TAB PO SCH ×2 (08:06→21:38)
[2017-01-20] MEDS: predniSONE 10 MG TAB PO SCH (08:07)
[2017-01-20] MEDS: POLYETHYLENE GLYCOL 17 GM PKG PO SCH (08:07)
[2017-01-20] MEDS ORDERED: CEFEPIME INJ 1,000 MG in SODIUM CHLORIDE 0.9% INJ 100 ML IV SCH (13:15)
[2017-01-20] MEDS: FERROUS SULFATE 325 MG (65 MG ELEMENTAL IRON) TAB PO SCH ×2 (13:26→18:30)
[2017-01-20] MEDS: ASCORBIC ACID 500 MG TAB PO SCH ×2 (13:29→18:33)
--- NOTE | 2017-01-20 16:52 | HHI.PR ---
Subjective Remarks Patient c/o sob. denies cp/cob denies fevers or chills states was out of bed earlier, ambulating Objective Vitals Vital Signs Date Time Temp Pulse Resp B/P (MAP) Pulse Ox O2 Delivery O2 Flow Rate FiO2 01/20/17 11:45 94 Nasal Cannula 3.00 01/20/17 11:45 97.8 9 18 109/75 (86) 94 01/20/17 11:45 109 01/20/17 07:45 95 Nasal Cannula 3.00 01/20/17 07:30 94 Nasal Cannula 3.00 01/20/17 07:30 98 01/20/17 07:30 98.0 98 18 118/77 (91) 94 01/20/17 06:05 91 01/20/17 05:34 92 01/20/17 04:09 96 01/20/17 03:25 98.0 95 16 110/74 (86) 95 01/20/17 03:25 95 Nasal Cannula 3.00 01/20/17 03:02 92 01/20/17 02:04 102 01/20/17 01:42 100 01/20/17 00:13 104 01/19/17 23:25 96 Nasal Cannula 3.00 01/19/17 23:25 98.1 108 18 122/78 (93) 96 01/19/17 23:23 104 01/19/17 22:00 106 01/19/17 21:15 96 01/19/17 20:20 101 01/19/17 20:15 98 Nasal Cannula 4.00 01/19/17 19:45 99 Nasal Cannula 3.00 01/19/17 19:45 98.4 97 16 122/78 (93) 99 01/19/17 19:25 120 01/19/17 18:16 101 01/19/17 18:15 18 01/19/17 17:06 108 I/O 01/19/17 01/19/17 01/19/17 01/20/17 01/20/17 01/20/17 07:00 15:00 23:00 07:00 15:00 23:00 Intake Total 240 ml 480 ml 240 ml Output Total 480 ml 1360 ml 310 ml Balance -240 ml -880 ml -70 ml Intake Oral 240 ml 480 ml 240 ml Output Urine Total 400 ml 350 ml 200 ml Chest Tube Drainage Total 80 ml 110 ml 110 ml Hemodialysis 900 ml # Bowel Movements 0 Result Diagram: 01/19/1734601/19/17346 Objective Remarks GENERAL: cachectic appearing middle-aged male, lying in bed, resting. on nonrebreather facemask SKIN: No rashes, ecchymoses or lesions. Cool and dry. HEAD: Atraumatic. Normocephalic. No temporal or scalp tenderness. EYES: Pupils equal round and reactive. Pallor present. No scleral icterus. No injection or drainage. ENT: Nose without bleeding, purulent drainage or septal hematoma. Airway patent. NECK: Trachea midline. No JVD CARDIOVASCULAR: Regular rate and rhythm. Well-healed sternotomy incision. Dressing over right thoracotomy site, chest tube in place with 1+ air leak RESPIRATORY: Decreased BS on right. Subcutaneous emphysema over chest wall. Rhonchi over right lung field, left lung field appears clear with no wheezing or crackles. Right sided chest tube in place with positive air leak - Chest tube id C/D/I. GASTROINTESTINAL: Abdomen soft, non-tender, nondistended. No guarding. MUSCULOSKELETAL: Extremities without clubbing, cyanosis, or edema. There is tenderness to palpation over the right trapezius muscle. NEUROLOGICAL: Awake alert and oriented 3. Muscle strength 5/5 in all extremities. Speech normal. Procedures 11/28/2016 Right Internal Jugular Hemodialysis Catheter Tunneled Placement dual lumen 12/02/2016 Successful right renal biopsy for function. Gelfoam and thrombin utilized. No bleeding on post CT Lung Biopsy 12/23/16. Dialysis 12/24/16. Urinary Catheter: No Vascular Central Line Catheter: No A/P Problem List: (1) Sepsis ICD Code: A41.9 - Sepsis, unspecified organism Status: Resolved (2) Acute renal failure ICD Code: N17.9 - Acute kidney failure, unspecified Status: Resolved (3) Pneumonia ICD Code: J18.9 - Pneumonia, unspecified organism Status: Resolved (4) Coronary artery disease ICD Code: I25.10 - Coronary artery disease Status: Chronic (5) Anemia ICD Code: D64.9 - Anemia Status: Chronic (6) Hematochezia ICD Code: K92.1 - Melena Status: Resolved (7) Hypokalemia ICD Code: E87.6 - Hypokalemia Status: Resolved (8) Chronic kidney disease, stage 5 ICD Code: N18.5 - Chronic kidney disease, stage 5 Status: Chronic (9) AVF (arteriovenous fistula) ICD Code: I77.0 - Arteriovenous fistula, acquired Status: Chronic (10) Right thoracotomy with VATS assist, lysis of adhesions, decortication, pleural biopsies Status: Acute (11) Neck pain on right side ICD Code: M54.2 - Cervicalgia Assessment and Plan Mr. Fonseca is a 55-year-old male patient with a known medical history of CAD s/ p CABG and CKD who presented to the ED with complaints of increasing dyspnea, generalized weakness, fevers and frequent diaphoresis x 2 weeks. Sepsis on admission suspect secondary to right multilobular pneumonia-resolved Dense cavitary pneumonia of the right lung - Pulmonary consulted and following. - Completed cefepime 1 g every 12 hours on 12/06/16 - Cardiothoracic Surgery and ID consulted. - Negative Aspergillus titers. - fu ID recommendations. Chronic obstructive pulmonary disease Acute Respiratory failure Extensive right lung pneumonia with cavitation - CT chest 11/26 dense consolidative right upper lobe pneumonia with severe emphysema with cavitary foci within the consolidated areas, patchy right middle and lower lobe pneumonia - Pulmonary following - RUL BAL 12/05 negative for malignant cells - CT guided bx 12/23 negative for fungus, AFB or malignancy. Substantial fibrosis noted. - Sputum culture negative. Bronchial cultures negative. Negative Aspergillus titers. - Continue scheduled and PRN duonebs. - Continue Robitussin Ac prn cough - Supplemental O2 to keep sats >88%. - Patient sp right thoracotomy, lysis of adhesions, decortication, pleural biopsy on 12/30. -Patient on high flow nasal cannula at 45%. Patient was transitioned from February with a mask. 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 Pulmonary following. Awaiting transfer to [facility] for evaluation by interventional pulmonary for management of persistent air leak. 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 - 01/20 CXR shows diffuse right sided pneumonia. No significant change to prior. There is no evidence of pneumothorax. CT chest showed right chest tube in place terminating in the upper lobe region posteriorly in the pleural space where there is a pneumothorax associated with consolidation in the right upper lobe and right lung and there is lobular pleural thickening. The right upper lobe consolidation with air bronchograms and cystic spaces persists. Emphysematous changes are noted on the left lung. Blood pulmonology and cardiology thoracic surgery recommendations. Patient still presents air leak. Awaiting transfer to tertiary center. ESRD on Hemodyalisis - Per nephrology will need exterminator dialysis (MWF). - Patient underwent AV fistula surgery on 12/10/2016. However, patient may need AV graft. - US kidney/renal/bladder ordered and reviewed showing mild pelvocaliectasis right kidney. 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 Continue to monitor BUN/ creatinine, strict I's and O's and avoid nephrotoxins. Normochromic, normocytic anemia suspect secondary to acute blood loss/ hematochezia - Transfused total of 6 PRBCs since admission, and transfuse for HgB<7.0 - Continue Protonix 40 mg twice a day - EGD/Colonoscopy on 12/18/2016 - No major findings, no bleeding source. May need capsule endoscopy as outpt. GI has signed off. - Hgb 7.0 on 12/24, repeat H&H. Transfuse is 7.0 or less. - Epogen per Nephrology - 01/15 Hemoglobin stable at 8.1. Continue to monitor CBC - 01/16 11 dropped down to 7.2. No obvious signs of bleeding. Transfuse 1 unit of packed blood cells. Continue to monitor CBC. The case was discussed with the cardiothoracic PA. - 01/17 sp transfusion of 1 unit PRBC on 01/16 with appropriate response of the hemoglobin. Continue to monitor CBC. - Hemoglobin stable. Continue to monitor cbc. Hyperkalemia - 12/31 sp IV insulin + D50 and Kayexalate. Repeat BMP. - Resolved. COPD Exacerbation - Sp treatment with IV steroids an po Levaquin, now on prednisone taper as per pulmonology. Cellulitis - Chest tube entrance site is erythematous and there is purulent discharge observed. as per RN CT surgeon states looks better. Continue wound care. Will reconsult ID for advice on further management. I will also obtain a wound culture. Monitor for fevers or any other signs of infection. - ID reconsulted - Discussed case with Dr Fontanez - monitor off antibiotics for now. Full code. DVT Prophylaxis: SCDs/TEDs., Ambulation. discussed with RN. Discharge Planning Patient awaiting transfer to [facility]. Problem Qualifiers (1) Sepsis: (2) Acute renal failure: Qualified Codes: N17.8 - Other acute kidney failure (3) Pneumonia: Qualified Codes: J18.1 - Lobar pneumonia, unspecified organism (4) Coronary artery disease: Qualified Codes: I25.119 - Atherosclerotic heart disease of [place] coronary artery with unspecified angina pectoris (5) Anemia: Qualified Codes: N18.5 - Chronic kidney disease, stage 5; D63.1 - Anemia in chronic kidney disease Juanjo Rush MD Jan 20, 2017 16:52
--- NOTE | 2017-01-20 17:25 | PD.CAR.PN ---
CVT Progress Note Subjective/Hospital Course: ct guided lung bx / no fungal elements Dr Claire Lott requesting re-eval for possible thoractomy discussed with pt right thoracotomy for pulmonary resection Dr Roth will discuss further with pt on Thursday tentatively scheduled for case 12/29 Dr Roth discussed surgery / risks / procedure with pt / he ia agreeable to proceed for surgery in am 12/30 Right thoracotomy with VATS assist, lysis of adhesions, decortication, pleural biopsies and cultures, right upper lobe biopsies and cultures Right upper lobe resection was considered, but not technically feasible due to the dense consolidation, inflammation, and frozen hilum associated. 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, [employer] dosing increase with breakthrough fentanly IV will need PT/ OOB ambulate pulm toileting path cultures pending 12/31 path and cultures pending 01/01 path pending no growth in cultures to date pain control improved, has ONQ pump and morphine [employer] on GI motility meds ambulate/ OOB + 1 air leak in chest tube 01/02 now with +4 air leak + subq emphysema to right chest ONQ pump dc dressing removed / right chest tube site eval, no air air out of skin, reinforced with vaseline gauze no change in air leak remains on 01/03/17 Continues with impressive air leak and SQ emphysema. Denies dyspnea and comfortable 01/04/17 Persistent large air leak. No complaints otherwise 01/05/17 c/o pain related to chest tube site and pleuritic irritation. air leak a little better this morning. PATH still pending from biopsies submitted at the time of surgery last week. 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 MS, prn norco for pain / breakthrough fentanly 10/ persistent air leak +4 subq emphysema improving to chest still get very SOB with any exertion receiving dialysis at this time pain controlled 10/5 pt remains in CVICU was on high flow last pm 25liters no further air leak noted in chest tube chamber, less subq emphysema noted pt encouraged to ask for pain meds to improve pulm toileting chest xray, no PTX path pending , will get pt OOB to chair appreciate CCM 10/6 pt now with recurrent air leak + 4-5, remains at 30cm suction cxr noted, + subq emphysema , some consolidation right perihilar region wean high flow 02 slowly , now at 20 liters / 60% fi02 OOB to chair as tolerated pain control, s/p dialysis today 01/11 Persistent air-leak Vitals stable Continue CT. Dr. Roth to determine further therapy 01/12 was still on 45% F102, 30 liters high flow [address] Roth and Dr Mackay recommend transferring pt to tertiary center for broncho fistula closure Pulm accepting Dr Cody Lopez, Hospitalist Dr Palmer await accepting bed at this time will try to wean to 100% NRB to see if pt tolerates OOB today after dialysis 01/13 discharge summary done , see dictation 01/14 still waiting on bed at [facility] still has + 5 air leak now on 4 liter nasal cannula dialysis today 01/15 still waiting on bed at [facility] + 5 air leak, some chest soreness tolerating 02 at 5 liters 01/16 now on 4.5liters, still with + 5 air leak c/o of right sided chest discomfort still waiting on bed at [facility] in [place] sub q emphysema improved 01/19 +1 air leak in chest tube / drained 110cc/ 12 hrs still waiting on transfer be at [facility] GNR to right chest tube site, ID following 01/[address] Hogan , will obtain new chest tube culture from chest tube send for C&S , ID following ? colonization continue pulm toileting will rediscuss with CM concerning length of timing for transfer to [facility] and any hold up Objective: GENERAL: SKIN: Warm and dry. chest tube site with erythema, dry yellow drainage HEAD: Normocephalic. EYES: No scleral icterus. No injection or drainage. NECK: Supple, trachea midline. No JVD or lymphadenopathy. CARDIOVASCULAR: Regular rate and rhythm without murmurs, gallops, or rubs. RESPIRATORY: Breath sounds equal bilaterally. No accessory muscle use. diminished right lower lobe + 5 air leak GASTROINTESTINAL: Abdomen soft, non-tender, nondistended. MUSCULOSKELETAL: No cyanosis, or edema. BACK: Nontender without obvious deformity. No CVA tenderness. Vital Signs Date Time Temp Pulse Resp B/P (MAP) Pulse Ox O2 Delivery O2 Flow Rate FiO2 01/20/17 17:00 109 01/20/17 16:00 108 01/20/17 15:45 111 01/20/17 15:45 93 Nasal Cannula 3.00 01/20/17 15:45 98.4 111 6 138/84 (102) 93 01/20/17 15:00 102 01/20/17 14:00 98 01/20/17 13:00 100 01/20/17 12:00 106 01/20/17 11:45 94 Nasal Cannula 3.00 01/20/17 11:45 97.8 9 18 109/75 (86) 94 01/20/17 11:45 109 01/20/17 11:00 100 01/20/17 10:00 108 01/20/17 09:00 102 01/20/17 08:00 102 01/20/17 07:45 95 Nasal Cannula 3.00 01/20/17 07:30 94 Nasal Cannula 3.00 01/20/17 07:30 98 01/20/17 07:30 98.0 98 18 118/77 (91) 94 01/20/17 06:05 91 01/20/17 05:34 92 01/20/17 04:09 96 01/20/17 03:25 98.0 95 16 110/74 (86) 95 01/20/17 03:25 95 Nasal Cannula 3.00 01/20/17 03:02 92 01/20/17 02:04 102 01/20/17 01:42 100 01/20/17 00:13 104 01/19/17 23:25 96 Nasal Cannula 3.00 01/19/17 23:25 98.1 108 18 122/78 (93) 96 01/19/17 23:23 104 01/19/17 22:00 106 01/19/17 21:15 96 01/19/17 20:20 101 01/19/17 20:15 98 Nasal Cannula 4.00 01/19/17 19:45 99 Nasal Cannula 3.00 01/19/17 19:45 98.4 97 16 122/78 (93) 99 01/19/17 19:25 120 01/19/17 18:16 101 01/19/17 18:15 18 Result Diagram: 01/19/17 0347 01/19/17 034 (1) Pulmonary infiltrate in right lung on chest x-ray Plan: pulm toileting nebs, ezpap OOB ambulate consult PT keep chest tube to 20cm suction now on 3 liters 02 transfer to [facility] Dr Lopez, pulmonary medicine , when bed available (2) Pneumonia Plan: ID following chest tube site HEAVY GROWTH PSEUDOMONAS AERUGINOSA MULTI-DRUG RESISTANT ORGANISM (3) Right thoracotomy with VATS assist, lysis of adhesions, decortication, pleural biopsies Plan: path organizing PNA, BOOP bronchiolitis obliterans organizing pneumonia , parenchymal fibrosis low dose steroids Problem Qualifiers (1) Pneumonia: Qualified Codes: J18.1 - Lobar pneumonia, unspecified organism Marly Heart Jan 20, 2017 17:25
[2017-01-20] MEDS: SODIUM CHLORIDE 0.9% FLUSH 5 ML FLUSH IV FLUSH SCH (21:00)
[2017-01-20] MEDS: PANTOPRAZOLE SOD 40 MG DELAYED RELEASE TAB PO SCH (21:38)
[2017-01-21] VITALS (24 sets, daily range): BP systolic 111–136; BP diastolic 71–82; PULSE 90–116; RESP 16–20; TEMP 97.8–98.9; O2SAT 93–97
[2017-01-21 05:38] LABS: BICARBONATE 29.7 MEQ/L (21.0-32.0); POTASSIUM 4.1 MEQ/L (3.5-5.1)
[2017-01-21] MEDS: CYCLOBENZAPRINE HCL 10 MG TAB PO PRN (06:43)
[2017-01-21] MEDS: RESP: ALBUTEROL 2.5 MG/IPRATROPIUM 0.5 MG NEB (PRN) NEB (07:54)
[2017-01-21] MEDS: RESP: BUDESONIDE 0.5 MG/2 ML NEB NEB SCH ×2 (07:54→20:13)
[2017-01-21] MEDS: CHOLECALCIFEROL (VIT D3) 1000 UNIT TAB PO SCH (10:51)
[2017-01-21] MEDS: DOCUSATE SODIUM 100 MG CAP PO SCH ×2 (10:51→20:48)
[2017-01-21] MEDS: SEVELAMER CARBONATE 800 MG TAB PO SCH ×2 (10:51→18:41)
[2017-01-21] MEDS: FERROUS SULFATE 325 MG (65 MG ELEMENTAL IRON) TAB PO SCH ×2 (10:51→18:41)
[2017-01-21] MEDS: LACTOBACILLUS ACIDOPHILUS TAB PO SCH ×2 (10:52→20:48)
[2017-01-21] MEDS: ACETAMINOPHEN/HYDROcodone 325 MG/5 MG TAB PO PRN ×3 (10:52→23:01)
[2017-01-21] MEDS: predniSONE 10 MG TAB PO SCH (10:52)
--- NOTE | 2017-01-21 11:16 | HHI.IDPN ---
Subjective Subjective Remarks remains afebrile co R chest pain persistent air leak clx growing PSAE, MDRO a sample of pleural fluid taken from the CT noted that drainage around CT is less Antibiotics cefepime Allergies: Coded Allergies: No Known Allergies (Unverified , 09/26/13) Objective . Vital Signs Date Time Temp Pulse Resp B/P (MAP) Pulse Ox O2 Delivery O2 Flow Rate FiO2 01/21/17 08:17 111 01/21/17 07:58 93 Nasal Cannula 3.00 01/21/17 07:25 93 Nasal Cannula 3.00 01/21/17 07:25 98.9 110 18 133/82 (99) 93 01/21/17 07:25 110 01/21/17 06:00 104 01/21/17 05:00 100 01/21/17 04:00 95 01/21/17 03:45 93 Nasal Cannula 2.00 01/21/17 03:45 98.0 95 18 136/81 (99) 93 01/21/17 03:00 90 01/21/17 02:00 100 01/21/17 01:00 93 01/21/17 00:00 98 01/20/17 23:00 98.0 96 18 128/76 (93) 96 01/20/17 23:00 96 01/20/17 23:00 96 Nasal Cannula 2.00 01/20/17 22:00 100 01/20/17 21:00 98 01/20/17 20:30 98.3 101 18 136/84 (101) 95 01/20/17 20:30 96 Nasal Cannula 2.00 01/20/17 20:00 98 01/20/17 19:56 94 Nasal Cannula 3.00 01/20/17 19:00 101 01/20/17 18:00 108 01/20/17 17:00 109 01/20/17 16:00 108 01/20/17 15:45 111 01/20/17 15:45 93 Nasal Cannula 3.00 01/20/17 15:45 98.4 111 6 138/84 (102) 93 01/20/17 15:00 102 01/20/17 14:00 98 01/20/17 13:00 100 01/20/17 12:00 106 01/20/17 11:45 94 Nasal Cannula 3.00 01/20/17 11:45 97.8 9 18 109/75 (86) 94 01/20/17 11:45 109 . Laboratory Tests Test 01/21/17 04:27 Blood Urea Nitrogen 56 MG/DL Creatinine 5.25 MG/DL Random Glucose 81 MG/DL Calcium Level 8.9 MG/DL Sodium Level 137 MEQ/L Potassium Level 4.1 MEQ/L Chloride Level 99 MEQ/L Carbon Dioxide Level 29.7 MEQ/L Anion Gap 8 MEQ/L Estimat Glomerular Filtration Rate 11 ML/MIN Phosphorus Level 5.6 MG/DL Microbiology Date/Time Source Procedure Growth Status 01/20/17 19:20 Fluid Pleural Fluid Fungal Smear - Final NO FUNGAL ELEMENTS SEEN. Resulted 01/20/17 19:20 Fluid Pleural Fluid Fungal Culture Pending Resulted 01/20/17 19:20 Fluid Pleural Fluid Gram Stain - Final Resulted 01/20/17 19:20 Fluid Pleural Fluid Body Fluid Culture Pending Resulted Imaging Last Impressions Chest X-Ray 01/19/17 0600 Signed Impressions: Service Date/Time: Thursday, January 19, 2017 05:25 - CONCLUSION: 1. Diffuse right-sided pneumonia. There has been no significant change when compared to the prior exam. There is no evidence of pneumothorax. Rikki Austin MD Chest CT 01/19/17 0000 Signed Impressions: Service Date/Time: Thursday, January 19, 2017 22:21 - CONCLUSION: Right chest tube in place terminating in the upper lobe region posteriorly in the pleural space where there is a pneumothorax associated with consolidation in the right upper lobe and right lung and there is lobular pleural thickening. The right upper lobe consolidation with air bronchograms and cystic spaces persists. Emphysematous changes are noted of the left lung. Ranjan Neville MD Lung Biopsy CT 12/23/16 0000 Signed Impressions: Service Date/Time: Friday, December 23, 2016 09:37 - CONCLUSION: Uncomplicated CT guided biopsy/aspiration. Broderick Ndiaye MD Upper Extremity Ultrasound 12/04/16 0000 Signed Impressions: Service Date/Time: November 18:26 - CONCLUSION: Venous mapping as delineated above. The cephalic veins are abnormal bilaterally. Caio Villalpando MD Renal Biopsy CT 12/02/16 1350 Signed Impressions: Service Date/Time: Friday, December 02, 2016 08:33 - CONCLUSION: Uncomplicated CT guided biopsy of the right kidney for function. Mustapha Vela Jr., MD Catheter Placement X-Ray 11/28/16 0000 Signed Impressions: Service Date/Time: Monday, November 28, 2016 15:57 - CONCLUSION: Uncomplicated PermaCath placement as above. Mustapha Vela Jr., MD Renal Ultrasound 11/22/16 0000 Signed Impressions: Service Date/Time: Tuesday, November 22, 2016 17:14 - CONCLUSION: Mild pelvocaliectasis right kidney not present previously. Obdulia Garcia MD Physical Exam CONSTITUTIONAL/GENERAL: This is an adequately nourished patient, in no apparent distress. SKIN: No jaundice, rashes, or lesions. Skin temperature appropriate. Not diaphoretic. EYES: Pupils equal and round and reactive. No scleral icterus. No injection or drainage. Fundi not examined. ENT: Hearing grossly normal. Nose without bleeding or purulent drainage. Throat without visible erythema, exudates, masses, or lesions. NECK: Trachea midline. Supple, nontender. CARDIOVASCULAR: Regular rate and rhythm without murmurs, gallops, or rubs. No JVD. Peripheral pulses symmetric. RESPIRATORY/CHEST: Symmetric, unlabored respirations. Clear to auscultation L. Extensive rhonchi/ amphoric BS on TH R R CT in place with serosang d/c the entry site with a thin rim of white necrotic tissue surrounded by < 5 mm area of erythema, no edema, no purulence dressing enforced with multiple layers of 4x4 strained with odorless serous fluid + faint greenish discoloration GASTROINTESTINAL: Abdomen soft, non-tender, nondistended. No hepato-splenomegaly , or palpable masses. No guarding. Bowel sounds present. GENITOURINARY: Without palpable bladder distension MUSCULOSKELETAL: Extremities without clubbing, cyanosis, or edema. . No mottling or clubbing. NEUROLOGICAL: Awake and alert. Motor and sensory grossly within normal limits. Follows commands. Clear speech Moves all extremities. PSYCHIATRIC: calm, cooperative Assessment & Plan Remarks BP fistula CT site - maceration with PSAE colonisation 2/2 persistent moisture in the area - MANY GRAM POSITIVE COCCI IN PAIRS AND CLUSTERS, no WBC - clx with HEAVY nl skin valeria and MDRO PSAE - sensitivities to avicaz, zerbaxa and colistine noted - completely asymptomatic as far as infection(no fever, no leukocytosis) - there is another clx P - that was obrtained from the CT Clinical picture is not c/w empyema Culture negative cavitary PNA, RUL with no e/o fungal infx on path sp lung bx ESRD, on HD HEp C Pt is clincially asymptomatic afebrile Rec's: dc cefepime maintain dryness of the area if feasible monitor for signs of infx awaiting transfer to [facility] for his BPF surgery will follow clx from the CT mounika Fontanez,Paz Hansen MD Jan 21, 2017 11:16
--- NOTE | 2017-01-21 11:55 | HHI.NPPN ---
Subjective General Problems: Anemia Renal Failure: Acute Interval History Still with some shortness of breath. Hypoxic today, also tachycardic. Seen during dialysis. (Milla Pack) Review of Systems General Constitutional: Fatigue (Milla Pack) Respiratory Lungs: SOB, Cough, Sputum (Milla Pack) Musculoskeletal MS: Pain/Stiffness (Milla Pack) Objective Data Data Vital Signs Date Time Temp Pulse Resp B/P (MAP) Pulse Ox O2 Delivery O2 Flow Rate FiO2 01/21/17 08:17 111 01/21/17 07:58 93 Nasal Cannula 3.00 01/21/17 07:25 93 Nasal Cannula 3.00 01/21/17 07:25 98.9 110 18 133/82 (99) 93 01/21/17 07:25 110 01/21/17 06:00 104 01/21/17 05:00 100 01/21/17 04:00 95 01/21/17 03:45 93 Nasal Cannula 2.00 01/21/17 03:45 98.0 95 18 136/81 (99) 93 01/21/17 03:00 90 01/21/17 02:00 100 01/21/17 01:00 93 01/21/17 00:00 98 01/20/17 23:00 98.0 96 18 128/76 (93) 96 01/20/17 23:00 96 01/20/17 23:00 96 Nasal Cannula 2.00 01/20/17 22:00 100 01/20/17 21:00 98 01/20/17 20:30 98.3 101 18 136/84 (101) 95 01/20/17 20:30 96 Nasal Cannula 2.00 01/20/17 20:00 98 01/20/17 19:56 94 Nasal Cannula 3.00 01/20/17 19:00 101 01/20/17 18:00 108 01/20/17 17:00 109 01/20/17 16:00 108 01/20/17 15:45 111 01/20/17 15:45 93 Nasal Cannula 3.00 01/20/17 15:45 98.4 111 6 138/84 (102) 93 01/20/17 15:00 102 01/20/17 14:00 98 01/20/17 13:00 100 01/20/17 12:00 106 (Milla Pack) -: 01/19/17 0347 01/21/17 0427 Microbiology 01/20/17 Fungal Smear - Final, Resulted NO FUNGAL ELEMENTS SEEN. 01/20/17 Fungal Culture, Resulted Pending 01/20/17 Gram Stain - Final, Resulted 01/20/17 Body Fluid Culture, Resulted Pending Imaging Last 72 hours Impressions Chest X-Ray 01/19/17 0600 Signed Impressions: Service Date/Time: Thursday, January 19, 2017 05:25 - CONCLUSION: 1. Diffuse right-sided pneumonia. There has been no significant change when compared to the prior exam. There is no evidence of pneumothorax. Rikki Austin MD Chest CT 01/19/17 0000 Signed Impressions: Service Date/Time: Thursday, January 19, 2017 22:21 - CONCLUSION: Right chest tube in place terminating in the upper lobe region posteriorly in the pleural space where there is a pneumothorax associated with consolidation in the right upper lobe and right lung and there is lobular pleural thickening. The right upper lobe consolidation with air bronchograms and cystic spaces persists. Emphysematous changes are noted of the left lung. Ranjan Neville MD Tubes & Lines: Perma-Cath Tubes & Lines Comment chest tube right. (Milla Pack) Physical Exam General Appearance: No Acute Distress, Comfortable, Pale, Malnourished (Milla Pack) Eyes Eye Exam: Pupils Equal, Pupils Reactive (Milla Pack) Throat Throat Exam: Oral Mucosa [place] & Moist (Milla Pack) Neck Neck Exam: Neck Supple (Milla Pack) Pulmonary Resp Exam: No Distress, Crackles, Rhonchi, Decreased Bases Resp Remarks course right side lung sounds; chest tube right subcutaneous air mostly resolved (Milla Pack) Cardiology CV Exam: Regular, Normal Sinus Rhythm, Good Perfusion (Milla Pack) Gastrointestinal/Abdomen GI Exam: Soft, Non-Tender, Bowel Sounds Present, Positive Bowel Movement (Milla Pack) Musculoskeletal MS Exam: Joints Intact, Normal Gait, Normal Tone, Atrophy (Milla Pack) Integumentary Skin Exam: Clear, Warm, Dry, Intact (Milla Pack) Extremeties Extremities Exam: No Edema, Pedal Pulses Palpable (Milla Pack) Neurologic Neuro Exam: Alert, Awake, Oriented, Speech Clear, Moving All Extremities (Milla aPck) Psychiatric Psych Exam: Appropriate Responses (Milla Pack) Assessment/Plan Discussed Condition With: Patient Assessment Summary: SEJAL/Acute Renal Failure, Anemia of CKD Electrolyte Assessment: Metabolic Acidosis Problem List: (1) Chronic kidney disease, stage 5 ICD Codes: N18.5 - Chronic kidney disease, stage 5 Status: Chronic Plan: Patient likely has reached ESRD. s/p renal biopsy this admission. Continue dialysis support MWF. Seen during dialysis today on a 3K, 350 BFR, goal 600 ml He is non oliguric, makes quite a bit of urine at baseline; adjust UF as needed Intermittently obtain metabolic profile Continue nutritional support with meals; on high protein diet AVF creation failed. He will need permanent HD access placed but too unstable currently. To be addressed at a later date once respiratory issues are resolved. Awaiting medicare enrollment for transitional HD program at [facility] [place] (2) Pneumonia ICD Codes: J18.9 - Pneumonia, unspecified organism Status: Resolved Plan: Pulmonary and CTS surgery are following, s/p bronchoscopy and thoracotomy with decortication Biopsy negative for pulmonary aspergillus fungal ball in right lung s/p right thoracotomy 12/30 with chest tube placement; had air leak that CTS is managing with pulmonary Concerns for bronchopleural fistula, needs surgical correction; To be transferred to [facility]. Awaiting bed placement Chest xray report reviewed ID following, to be monitored off antibiotics (3) Hypokalemia ICD Codes: E87.6 - Hypokalemia Status: Resolved Plan: previously thought to have a proximal renal tubular disorder off daily replacement Adjust dialysate as needed Follow BMP (4) Hypocalcemia ICD Codes: E83.51 - Hypocalcemia Plan: Continue to treat hyperphosphatemia, on Sevelamer with meals. (5) Anemia ICD Codes: D64.9 - Anemia Status: Chronic Plan: Transfuse as needed, one unit ordered for transfusion 01/16 Continue high dose of Epogen with dialysis. Check CBC intermittently; goal Hb > 7 (6) Acidosis ICD Codes: E87.2 - Acidosis Status: Acute Plan: corrected with dialysis , monitor (7) GI bleed ICD Codes: K92.2 - Gastrointestinal hemorrhage, unspecified Status: Acute Plan: GI has signed off; s/p EGD/colonoscopy may need capsule endoscopy outpatient (Milla Pack) Plan patient was seen and examined. Dialysis MWF. He may be transferred to [facility] for repair of bronchopleural fistula. (Jim Zuluaga MD) Problem Qualifiers (1) Pneumonia: Qualified Codes: J18.1 - Lobar pneumonia, unspecified organism (2) Anemia: Qualified Codes: N18.5 - Chronic kidney disease, stage 5; D63.1 - Anemia in chronic kidney disease (3) GI bleed: Milla Pack Jan 21, 2017 11:55 Jim Zuluaga MD Jan 21, 2017 21:59
--- NOTE | 2017-01-21 14:18 | HHI.PR ---
Subjective Remarks Patient states he had some sob on exertion and oxygen saturation dropped to the 80's earlier while he was ambulating denies fevers/chills states has some pain in right chest. sating 93% on 3 liters of high flow nasal canula Objective Vitals Vital Signs Date Time Temp Pulse Resp B/P (MAP) Pulse Ox O2 Delivery O2 Flow Rate FiO2 01/21/17 11:30 97.8 110 20 116/76 (89) 93 01/21/17 11:30 93 Nasal Cannula 3.00 01/21/17 08:17 111 01/21/17 07:58 93 Nasal Cannula 3.00 01/21/17 07:25 93 Nasal Cannula 3.00 01/21/17 07:25 98.9 110 18 133/82 (99) 93 01/21/17 07:25 110 01/21/17 06:00 104 01/21/17 05:00 100 01/21/17 04:00 95 01/21/17 03:45 93 Nasal Cannula 2.00 01/21/17 03:45 98.0 95 18 136/81 (99) 93 01/21/17 03:00 90 01/21/17 02:00 100 01/21/17 01:00 93 01/21/17 00:00 98 01/20/17 23:00 98.0 96 18 128/76 (93) 96 01/20/17 23:00 96 01/20/17 23:00 96 Nasal Cannula 2.00 01/20/17 22:00 100 01/20/17 21:00 98 01/20/17 20:30 98.3 101 18 136/84 (101) 95 01/20/17 20:30 96 Nasal Cannula 2.00 01/20/17 20:00 98 01/20/17 19:56 94 Nasal Cannula 3.00 01/20/17 19:00 101 01/20/17 18:00 108 01/20/17 17:00 109 01/20/17 16:00 108 01/20/17 15:45 111 01/20/17 15:45 93 Nasal Cannula 3.00 01/20/17 15:45 98.4 111 6 138/84 (102) 93 01/20/17 15:00 102 I/O 01/20/17 01/20/17 01/20/17 01/21/1701/21/17 10/18/17 06:59 14:59 22:59 06:59 14:59 22:59 Intake Total 240 ml 540 ml 360 ml Output Total 310 ml 730 ml 585 ml Balance -70 ml -190 ml -225 ml Intake Oral 240 ml 540 ml 360 ml Output Urine Total 200 ml 550 ml 425 ml Chest Tube Drainage Total 110 ml 180 ml 160 ml # Bowel Movements 1 0 Result Diagram: 01/19/17 0347 01/21/17 0427 Imaging Last Impressions Chest X-Ray 01/19/17 0600 Signed Impressions: Service Date/Time: Thursday, January 19, 2017 05:25 - CONCLUSION: 1. Diffuse right-sided pneumonia. There has been no significant change when compared to the prior exam. There is no evidence of pneumothorax. Rikki Austin MD Chest CT 01/19/17 0000 Signed Impressions: Service Date/Time: Thursday, January 19, 2017 22:21 - CONCLUSION: Right chest tube in place terminating in the upper lobe region posteriorly in the pleural space where there is a pneumothorax associated with consolidation in the right upper lobe and right lung and there is lobular pleural thickening. The right upper lobe consolidation with air bronchograms and cystic spaces persists. Emphysematous changes are noted of the left lung. Ranjan Neville MD Lung Biopsy CT 12/23/16 0000 Signed Impressions: Service Date/Time: Friday, December 23, 2016 09:37 - CONCLUSION: Uncomplicated CT guided biopsy/aspiration. Broderick Ndiaye MD Upper Extremity Ultrasound 12/04/16 0000 Signed Impressions: Service Date/Time: November 18:26 - CONCLUSION: Venous mapping as delineated above. The cephalic veins are abnormal bilaterally. Caio Villalpando MD Renal Biopsy CT 12/02/16 1350 Signed Impressions: Service Date/Time: Friday, December 02, 2016 08:33 - CONCLUSION: Uncomplicated CT guided biopsy of the right kidney for function. Mustapha Vela Jr., MD Catheter Placement X-Ray 11/28/16 0000 Signed Impressions: Service Date/Time: Monday, November 28, 2016 15:57 - CONCLUSION: Uncomplicated PermaCath placement as above. Mustapha Vela Jr., MD Renal Ultrasound 11/22/16 0000 Signed Impressions: Service Date/Time: Tuesday, November 22, 2016 17:14 - CONCLUSION: Mild pelvocaliectasis right kidney not present previously. Obdulia Garcia MD Objective Remarks GENERAL: cachectic appearing middle-aged male, lying in bed, resting. on nonrebreather facemask SKIN: No rashes, ecchymoses or lesions. Cool and dry. HEAD: Atraumatic. Normocephalic. No temporal or scalp tenderness. EYES: Pupils equal round and reactive. Pallor present. No scleral icterus. No injection or drainage. ENT: Nose without bleeding, purulent drainage or septal hematoma. Airway patent. NECK: Trachea midline. No JVD CARDIOVASCULAR: Regular rate and rhythm. Well-healed sternotomy incision. Dressing over right thoracotomy site, chest tube in place with 1+ air leak RESPIRATORY: Decreased BS on right. Subcutaneous emphysema over chest wall. Rhonchi over right lung field, left lung field appears clear with no wheezing or crackles. Right sided chest tube in place with positive air leak - Chest tube id C/D/I. GASTROINTESTINAL: Abdomen soft, non-tender, nondistended. No guarding. MUSCULOSKELETAL: Extremities without clubbing, cyanosis, or edema. There is tenderness to palpation over the right trapezius muscle. NEUROLOGICAL: Awake alert and oriented 3. Muscle strength 5/5 in all extremities. Speech normal. Procedures 11/28/2016 Right Internal Jugular Hemodialysis Catheter Tunneled Placement dual lumen 12/02/2016 Successful right renal biopsy for function. Gelfoam and thrombin utilized. No bleeding on post CT Lung Biopsy 12/23/16. Dialysis 12/24/16. Medications and IVs Current Medications Medications (Trade) Dose Ordered Sig/Edwin Route Start Time Stop Time Status Last Admin (Mag-Al Plus Susp Liq) 30 ml Q6H PRN PO 11/24/16 13:15 (Restoril) 15 mg HS PRN PO 11/24/16 13:15 12/31/16 23:22 (Vitamin D3) 2,000 units DAILY PO 11/25/16 09:15 01/21/17 10:51 (Lactinex) 1 tab Q12HR PO 11/26/16 21:00 01/21/17 10:52 Sodium Chloride 1,000 ml @ 0 mls/hr Q0M PRN OTHER 11/28/16 15:28 12/29/16 16:10 (Heparin Inj) 8,000 units UNSCH PRN IVF 11/28/16 15:30 Future Hold 01/12/17 08:39 Sodium Chloride 1,000 ml @ 200 mls/hr Q5H PRN IV 11/28/16 15:28 Sodium Chloride 1,000 ml @ 0 mls/hr Q0M PRN OTHER 11/28/16 15:28 11/30/16 12:02 (Mannitol Inj) 12.5 gm UNSCH PRN IV 11/28/16 15:30 (Albumin 25% Inj) 25 gm UNSCH PRN IV 11/28/16 15:30 01/16/17 08:38 (NS Flush) 5 ml UNSCH PRN IV FLUSH 11/28/16 15:30 01/19/17 08:29 (Heparin Inj) UNSCH PRN .XX 11/28/16 15:30 01/19/17 15:26 (Gentamicin (Dialysis) Inj) 20 mg UNSCH PRN IV 11/28/16 15:30 01/19/17 15:27 (Zofran Inj) 4 mg UNSCH PRN IV 11/28/16 15:30 (Tylenol) 650 mg UNSCH PRN PO 11/28/16 15:30 12/19/16 13:06 (Benadryl) 25 mg UNSCH PRN PO 11/28/16 15:30 12/19/16 13:06 (Nitrostat Sl) 0.4 mg UNSCH PRN SL 11/28/16 15:30 (Gelfoam 12 Mm/7 Mm Top) 1 foam UNSCH PRN TOP 11/28/16 15:30 (NS Flush) UNSCH PRN IVF 11/28/16 18:15 01/21/17 10:52 (Heparin Inj) UNSCH PRN IV FLUSH 11/28/16 18:15 Future Hold (Duoneb Neb) 1 ampule Q4HR NEB PRN NEB 11/29/16 12:30 01/21/17 07:54 (Benadryl) 25 mg Q8H PRN PO 11/30/16 10:00 12/31/16 23:23 (Renvela) 1,600 mg TIDAC PO 12/03/16 17:00 01/21/17 10:51 (Robitussin Ac 200-20 Mg/10 ml Liq) 10 ml Q6H PRN PO 12/15/16 14:00 01/05/17 02:24 (Epogen Inj) 10,000 units UNSCH PRN IV 12/17/16 09:30 01/19/17 15:25 (Epogen Inj) 4,000 units UNSCH PRN IV 12/17/16 09:45 01/19/17 15:26 (Cepacol Extra Elenita (Sugar Free)) 1 lozenge Q2HR PRN BUCCAL 12/23/16 09:00 ([place] 5-325 Mg) 1 tab Q4H PRN PO 12/25/16 09:15 01/15/17 23:15 (Ferrous Sulfate) 325 mg BID@12,17 PO 12/29/16 12:00 01/21/17 10:51 (Vitamin C) 500 mg BID@1200,1700 PO 12/29/16 12:00 01/20/17 18:33 (Symbicort 160-4.5 Inh) 1 puff Q12HR INH 12/30/16 21:00 Future Hold (Albuterol Neb) 2.5 mg Q2HR NEB PRN NEB 12/30/16 16:45 01/07/17 23:47 (Pulmicort Respule Neb) 0.5 mg BID NEB NEB 12/30/16 20:00 01/21/17 07:54 (NS Flush) 2 ml BID IV FLUSH 12/30/16 21:00 01/20/17 21:00 (NS Flush) 2 ml UNSCH PRN IV FLUSH 12/30/16 16:45 (Protonix) 40 mg HS PO 12/30/16 21:00 01/20/17 21:38 (Zofran Inj) 4 mg Q6H PRN IV PUSH 12/30/16 16:45 (Milk Of Magnesia Liq) 30 ml DAILY PRN PO 12/30/16 16:45 (Tylenol) 650 mg Q4H PRN PO 12/30/16 16:45 (Colace) 100 mg BID PO 12/31/16 10:00 01/21/17 10:51 (Miralax) 17 gm DAILY PO 12/31/16 10:00 01/17/17 09:03 (Lovenox Inj) 30 mg EVERY OTHER DAY SQ 01/05/17 15:00 01/19/17 09:43 (fentaNYL INJ) 25 mcg Q4H PRN IV PUSH 01/06/17 14:45 01/07/17 13:00 ([place] 5-325 Mg) 2 tab Q4H PRN PO 01/06/17 14:45 01/21/17 10:52 (Pill Splitter) 1 ea UNSCH PRN OTHER 01/08/17 19:15 (Deltasone) 10 mg DAILY PO 01/13/17 09:00 01/21/17 10:52 (Flexeril) 5 mg Q8H PRN PO 01/18/17 13:15 01/21/17 06:43 A/P Problem List: (1) Sepsis ICD Code: A41.9 - Sepsis, unspecified organism Status: Resolved (2) Acute renal failure ICD Code: N17.9 - Acute kidney failure, unspecified Status: Resolved (3) Pneumonia ICD Code: J18.9 - Pneumonia, unspecified organism Status: Resolved (4) Coronary artery disease ICD Code: I25.10 - Coronary artery disease Status: Chronic (5) Anemia ICD Code: D64.9 - Anemia Status: Chronic (6) Hematochezia ICD Code: K92.1 - Melena Status: Resolved (7) Hypokalemia ICD Code: E87.6 - Hypokalemia Status: Resolved (8) Chronic kidney disease, stage 5 ICD Code: N18.5 - Chronic kidney disease, stage 5 Status: Chronic (9) AVF (arteriovenous fistula) ICD Code: I77.0 - Arteriovenous fistula, acquired Status: Chronic (10) Right thoracotomy with VATS assist, lysis of adhesions, decortication, pleural biopsies Status: Acute (11) Neck pain on right side ICD Code: M54.2 - Cervicalgia Assessment and Plan Mr. Fonseca is a 55-year-old male patient with a known medical history of CAD s/ p CABG and CKD who presented to the ED with complaints of increasing dyspnea, generalized weakness, fevers and frequent diaphoresis x 2 weeks. Sepsis on admission suspect secondary to right multilobular pneumonia-resolved Dense cavitary pneumonia of the right lung - Pulmonary consulted and following. - Completed cefepime 1 g every 12 hours on 12/06/16 - Cardiothoracic Surgery and ID consulted. - Negative Aspergillus titers. - fu ID recommendations. Chronic obstructive pulmonary disease Acute Respiratory failure Extensive right lung pneumonia with cavitation - CT chest 11/26 dense consolidative right upper lobe pneumonia with severe emphysema with cavitary foci within the consolidated areas, patchy right middle and lower lobe pneumonia - Pulmonary following - RUL BAL 12/05 negative for malignant cells - CT guided bx 12/23 negative for fungus, AFB or malignancy. Substantial fibrosis noted. - Sputum culture negative. Bronchial cultures negative. Negative Aspergillus titers. - Continue scheduled and PRN duonebs. - Continue Robitussin Ac prn cough - Supplemental O2 to keep sats >88%. - Patient sp right thoracotomy, lysis of adhesions, decortication, pleural biopsy on 12/30. -Patient on high flow nasal cannula at 45%. Patient was transitioned from February with a mask. 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 Pulmonary following. Awaiting transfer to [facility] for evaluation by interventional pulmonary for management of persistent air leak. 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 - 01/20 CXR shows diffuse right sided pneumonia. No significant change to prior. There is no evidence of pneumothorax. CT chest showed right chest tube in place terminating in the upper lobe region posteriorly in the pleural space where there is a pneumothorax associated with consolidation in the right upper lobe and right lung and there is lobular pleural thickening. The right upper lobe consolidation with air bronchograms and cystic spaces persists. Emphysematous changes are noted on the left lung. Blood pulmonology and cardiology thoracic surgery recommendations. Patient still presents air leak. Awaiting transfer to tertiary center. ESRD on Hemodyalisis - Per nephrology will need retirement dialysis (MWF). - Patient underwent AV fistula surgery on 12/10/2016. However, patient may need AV graft. - US kidney/renal/bladder ordered and reviewed showing mild pelvocaliectasis right kidney. 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 Continue to monitor BUN/ creatinine, strict I's and O's and avoid nephrotoxins. - AVF creation failed. He will need permanent HD access placed but too unstable currently. To be addressed at a later date once respiratory issues are resolved. - Awaiting medicare enrollment for transitional HD program at [facility] Normochromic, normocytic anemia suspect secondary to acute blood loss/ hematochezia - Transfused total of 6 PRBCs since admission, and transfuse for HgB<7.0 - Continue Protonix 40 mg twice a day - EGD/Colonoscopy on 12/18/2016 - No major findings, no bleeding source. May need capsule endoscopy as outpt. GI has signed off. - Hgb 7.0 on 12/24, repeat H&H. Transfuse is 7.0 or less. - Epogen per Nephrology - 01/15 Hemoglobin stable at 8.1. Continue to monitor CBC - 01/16 11 dropped down to 7.2. No obvious signs of bleeding. Transfuse 1 unit of packed blood cells. Continue to monitor CBC. The case was discussed with the cardiothoracic PA. - 01/17 sp transfusion of 1 unit PRBC on 01/16 with appropriate response of the hemoglobin. Continue to monitor CBC. - Hemoglobin stable. Continue to monitor cbc. Hyperkalemia - 12/31 sp IV insulin + D50 and Kayexalate. Repeat BMP. - Resolved. COPD Exacerbation - Sp treatment with IV steroids an po Levaquin, now on prednisone taper as per pulmonology. Cellulitis - Chest tube entrance site is erythematous and there is purulent discharge observed. as per RN CT surgeon states looks better. Continue wound care. Will reconsult ID for advice on further management. I will also obtain a wound culture. Monitor for fevers or any other signs of infection. - ID reconsulted - Discussed case with Dr Fontanez - monitor off antibiotics for now. Full code. DVT Prophylaxis: SCDs/TEDs., Ambulation. discussed with RN. Discharge Planning Patient awaiting transfer to [facility]. Problem Qualifiers (1) Sepsis: (2) Acute renal failure: Qualified Codes: N17.8 - Other acute kidney failure (3) Pneumonia: Qualified Codes: J18.1 - Lobar pneumonia, unspecified organism (4) Coronary artery disease: Qualified Codes: I25.119 - Atherosclerotic heart disease of [place] coronary artery with unspecified angina pectoris (5) Anemia: Qualified Codes: N18.5 - Chronic kidney disease, stage 5; D63.1 - Anemia in chronic kidney disease Juanjo Rush MD Jan 21, 2017 14:18
--- NOTE | 2017-01-21 15:32 | PD.CAR.PN ---
CVT Progress Note Subjective/Hospital Course: ct guided lung bx / no fungal elements Dr Claire Lott requesting re-eval for possible thoractomy discussed with pt right thoracotomy for pulmonary resection Dr Roth will discuss further with pt on Thursday tentatively scheduled for case 12/29 Dr Roth discussed surgery / risks / procedure with pt / he ia agreeable to proceed for surgery in am 12/30 Right thoracotomy with VATS assist, lysis of adhesions, decortication, pleural biopsies and cultures, right upper lobe biopsies and cultures Right upper lobe resection was considered, but not technically feasible due to the dense consolidation, inflammation, and frozen hilum associated. 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, [employer] dosing increase with breakthrough fentanly IV will need PT/ OOB ambulate pulm toileting path cultures pending 12/31 path and cultures pending 01/01 path pending no growth in cultures to date pain control improved, has ONQ pump and morphine [employer] on GI motility meds ambulate/ OOB + 1 air leak in chest tube 01/02 now with +4 air leak + subq emphysema to right chest ONQ pump dc dressing removed / right chest tube site eval, no air air out of skin, reinforced with vaseline gauze no change in air leak remains on 01/03/17 Continues with impressive air leak and SQ emphysema. Denies dyspnea and comfortable 01/04/17 Persistent large air leak. No complaints otherwise 01/05/17 c/o pain related to chest tube site and pleuritic irritation. air leak a little better this morning. PATH still pending from biopsies submitted at the time of surgery last week. 01/06/17 still has extensive air leak ct to 20cm suction + sub q emphysema bilateral anterior chest wall and shoulders path pending will dc rn homecare [place], prn norco for pain / breakthrough fentanly 10/ persistent air leak +4 subq emphysema improving to chest still get very SOB with any exertion receiving dialysis at this time pain controlled 10/5 pt remains in CVICU was on high flow last pm 25liters no further air leak noted in chest tube chamber, less subq emphysema noted pt encouraged to ask for pain meds to improve pulm toileting chest xray, no PTX path pending , will get pt OOB to chair appreciate CCM 10/6 pt now with recurrent air leak + 4-5, remains at 30cm suction cxr noted, + subq emphysema , some consolidation right perihilar region wean high flow 02 slowly , now at 20 liters / 60% fi02 OOB to chair as tolerated pain control, s/p dialysis today 01/11 Persistent air-leak Vitals stable Continue CT. Dr. Roth to determine further therapy 01/12 was still on 45% F102, 30 liters high flow [address] Roth and Dr Mackay recommend transferring pt to tertiary center for broncho fistula closure Pulm accepting Dr Cody Lopez, Hospitalist Dr Palmer await accepting bed at this time will try to wean to 100% NRB to see if pt tolerates OOB today after dialysis 01/13 discharge summary done , see dictation 01/14 still waiting on bed at [facility] still has + 5 air leak now on 4 liter nasal cannula dialysis today 01/15 still waiting on bed at [facility] + 5 air leak, some chest soreness tolerating 02 at 5 liters 01/16 now on 4.5liters, still with + 5 air leak c/o of right sided chest discomfort still waiting on bed at [facility] in [place] sub q emphysema improved 01/19 +1 air leak in chest tube / drained 110cc/ 12 hrs still waiting on transfer be at [facility] GNR to right chest tube site, ID following 01/[address] Hogan , will obtain new chest tube culture from chest tube send for C&S , ID following ? colonization continue pulm toileting will rediscuss with CM concerning length of timing for transfer to [facility] and any hold up 01/21 for dialysis today still has air leak Objective: GENERAL: SKIN: Warm and dry. HEAD: Normocephalic. EYES: No scleral icterus. No injection or drainage. NECK: Supple, trachea midline. No JVD or lymphadenopathy. CARDIOVASCULAR: Regular rate and rhythm without murmurs, gallops, or rubs. RESPIRATORY: Breath sounds equal bilaterally. No accessory muscle use. chest tube site incision right chest tube site the entry site with a thin rim of white necrotic tissue surrounded by < 5 mm area of erythema, no edema, no purulence dressing enforced with multiple layers of 4x4 strained with odorless serous fluid + faint greenish discoloration GASTROINTESTINAL: Abdomen soft, non-tender, nondistended. MUSCULOSKELETAL: No cyanosis, or edema. BACK: Nontender without obvious deformity. No CVA tenderness. Vital Signs Date Time Temp Pulse Resp B/P (MAP) Pulse Ox O2 Delivery O2 Flow Rate FiO2 01/21/17 11:30 97.8 110 20 116/76 (89) 93 01/21/17 11:30 93 Nasal Cannula 3.00 01/21/17 08:17 111 01/21/17 07:58 93 Nasal Cannula 3.00 01/21/17 07:25 93 Nasal Cannula 3.00 01/21/17 07:25 98.9 110 18 133/82 (99) 93 01/21/17 07:25 110 01/21/17 06:00 104 01/21/17 05:00 100 01/21/17 04:00 95 01/21/17 03:45 93 Nasal Cannula 2.00 01/21/17 03:45 98.0 95 18 136/81 (99) 93 01/21/17 03:00 90 01/21/17 02:00 100 01/21/17 01:00 93 01/21/17 00:00 98 01/20/17 23:00 98.0 96 18 128/76 (93) 96 01/20/17 23:00 96 01/20/17 23:00 96 Nasal Cannula 2.00 01/20/17 22:00 100 01/20/17 21:00 98 01/20/17 20:30 98.3 101 18 136/84 (101) 95 01/20/17 20:30 96 Nasal Cannula 2.00 01/20/17 20:00 98 01/20/17 19:56 94 Nasal Cannula 3.00 01/20/17 19:00 101 01/20/17 18:00 108 01/20/17 17:00 109 01/20/17 16:00 108 01/20/17 15:45 111 01/20/17 15:45 93 Nasal Cannula 3.00 01/20/17 15:45 98.4 111 6 138/84 (102) 93 Labs: Laboratory Tests Test 01/21/17 04:27 Blood Urea Nitrogen 56 MG/DL (7-18) Creatinine 5.25 MG/DL (0.60-1.30) Random Glucose 81 MG/DL (74-106) Calcium Level 8.9 MG/DL (8.5-10.1) Sodium Level 137 MEQ/L (136-145) Potassium Level 4.1 MEQ/L (3.5-5.1) Chloride Level 99 MEQ/L (98-107) Carbon Dioxide Level 29.7 MEQ/L (21.0-32.0) Anion Gap 8 MEQ/L (5-15) Estimat Glomerular Filtration Rate 11 ML/MIN (>89) Phosphorus Level 5.6 MG/DL (2.5-4.9) Result Diagram: 01/19/17 0347 01/21/17 0427 (1) Pulmonary infiltrate in right lung on chest x-ray Plan: pulm toileting nebs, ezpap OOB ambulate consult PT keep chest tube to 20cm suction now on 3 liters 02 transfer to [facility] Dr Lopez, pulmonary medicine , when bed available (2) Pneumonia Plan: ID following chest tube site HEAVY GROWTH PSEUDOMONAS AERUGINOSA M[employer]IST[employer]ISM pleural fluid from chest tube tubing pending off all antibiotics per ID (3) Right thoracotomy with VATS assist, lysis of adhesions, decortication, pleural biopsies Plan: path organizing PNA, BOOP bronchiolitis obliterans organizing pneumonia , parenchymal fibrosis low dose steroids Problem Qualifiers (1) Pneumonia: Qualified Codes: J18.1 - Lobar pneumonia, unspecified organism Marly Heart Jan 21, 2017 15:32
[2017-01-21] MEDS: EPOETIN ALFA 10,000 UNITS/ML VIAL IV PRN (17:42)
[2017-01-21] MEDS: EPOETIN ALFA 4,000 UNITS/ML VIAL IV PRN (17:42)
[2017-01-21] MEDS: GENTAMICIN SULFATE (DIALYSIS USE ONLY) 20 MG/2 ML VIAL IV PRN (17:42)
--- NOTE | 2017-01-21 18:05 | HHI.PR ---
Subjective Remarks S/P Right Thoracotomy and right Upper lobe biopsies and Decortication. Still Has a leak from chest tube. Has SOB at Rest . On o2 at 4 L N/C. C/O Chest pain and CXR shows a Right infiltrate Dialysis today. Will go to [facility] for Endo Bronchial valve placement Objective Vital Signs Date Time Temp Pulse Resp B/P (MAP) Pulse Ox O2 Delivery O2 Flow Rate FiO2 01/21/17 14:00 100 01/21/17 13:00 114 01/21/17 12:00 116 01/21/17 11:30 97.8 110 20 116/76 (89) 93 01/21/17 11:30 93 Nasal Cannula 3.00 01/21/17 10:00 106 01/21/17 09:00 108 01/21/17 08:17 111 01/21/17 07:58 93 Nasal Cannula 3.00 01/21/17 07:25 93 Nasal Cannula 3.00 01/21/17 07:25 98.9 110 18 133/82 (99) 93 01/21/17 07:25 110 01/21/17 06:00 104 01/21/17 05:00 100 01/21/17 04:00 95 01/21/17 03:45 93 Nasal Cannula 2.00 01/21/17 03:45 98.0 95 18 136/81 (99) 93 01/21/17 03:00 90 01/21/17 02:00 100 01/21/17 01:00 93 01/21/17 00:00 98 01/20/17 23:00 98.0 96 18 128/76 (93) 96 01/20/17 23:00 96 01/20/17 23:00 96 Nasal Cannula 2.00 01/20/17 22:00 100 01/20/17 21:00 98 01/20/17 20:30 98.3 101 18 136/84 (101) 95 01/20/17 20:30 96 Nasal Cannula 2.00 01/20/17 20:00 98 01/20/17 19:56 94 Nasal Cannula 3.00 01/20/17 19:00 101 I/O 01/20/17 01/20/17 01/20/17 01/21/17 01/21/17 01/21/17 07:00 15:00 23:00 07:00 15:00 23:00 Intake Total 240 ml 540 ml 360 ml 480 ml Output Total 310 ml 730 ml 585 ml 1000 ml Balance -70 ml -190 ml -225 ml -520 ml Intake Oral 240 ml 540 ml 360 ml 480 ml Output Urine Total 200 ml 550 ml 425 ml 400 ml Chest Tube Drainage Total 110 ml 180 ml 160 ml Hemodialysis 600 ml # Bowel Movements 1 0 0 Result Diagram: 01/19/17 0347 01/21/17 0427 Procedures Right thoracotomy with VATS assist, lysis of adhesions, decortication, pleural biopsies and cultures, right upper lobe biopsies and cultures 12/30 Objective Remarks GENERAL: This is a middle-aged averagely built white male who is alert and in mild distress . HEAD, EYES, EARS, NOSE, THROAT: Head normocephalic. The pupils are reactive. Throat is clear. NECK: The neck is supple. No bruits. No thyroid enlargement. No lymphadenopathy. CHEST: Equal movements. wheeze heard over Right chest and occ Crackles. HEART: Heart sounds are regular. S1 and S2. No murmur. ABDOMEN: Abdomen is soft and nontender. No masses EXTREMITIES:No edema. No calf tenderness. NEUROLOGIC: Reflexes are normal. No focal deficits. SKIN: Warm. Assessment and Plan Assessment and Plan IMPRESSION: 1. Extensive right lung pneumonia with hypoxemia. 2. Chronic kidney disease with acute renal failure. 3. COPD with emphysema and chronic bronchitis. 4. History of coronary artery bypass grafting. 5. pulmonary fibrosis Plan : 1. Chest tube to drain. 2. O2 4 L. N/C 3. Nebs qid , duoneb 4. IS at bedside qid. 5. CBC,CXR in am 6. Prednisone 5 mg daily. 7. Antibiotics per ID ,cefipime 2 G IV daily Alison Wilson MD Jan 21, 2017 18:05
[2017-01-21] MEDS: ENOXAPARIN SODIUM 30 MG/0.3 ML SYRINGE SQ SCH (18:44)
[2017-01-21] MEDS: SODIUM CHLORIDE 0.9% FLUSH 5 ML FLUSH IV FLUSH SCH (20:47)
[2017-01-21] MEDS: PANTOPRAZOLE SOD 40 MG DELAYED RELEASE TAB PO SCH (20:48)
[2017-01-22] VITALS (7 sets, daily range): BP systolic 115–117; BP diastolic 61–78; PULSE 54–118; RESP 16–20; TEMP 98.4–98.7; O2SAT 90–96
[2017-01-22] MEDS: CYCLOBENZAPRINE HCL 10 MG TAB PO PRN (04:04)
[2017-01-22] MEDS: ACETAMINOPHEN/HYDROcodone 325 MG/5 MG TAB PO PRN (06:52)
[2017-01-22] MEDS ORDERED: predniSONE 5 MG TAB PO SCH (09:00)
== END 2017-01-22 07:02 | disposition short-term general hospital (02) | DRG 853 ==
LOC: NEPC 14:15 → NEDA 17:05 → N04B 21:46 → N04A 12-03 21:46 → HCPC 12-30 17:33 → HCVI 01-07 13:25 → HCPC 01-13 10:50
PROVIDERS: ADMIT Hospitalist; ATTEND Hospitalist
PROC: 30233N1 Transfusion of Nonautologous Red Blood Cells into Peripheral Vein, Percutaneous Approach (ICD-10-PCS; 2016-11-22)
PROC: 05HM33Z Insertion of Infusion Device into Right Internal Jugular Vein, Percutaneous Approach (ICD-10-PCS; 2016-11-28)
PROC: B543ZZA Ultrasonography of Right Jugular Veins, Guidance (ICD-10-PCS; 2016-11-28)
PROC: 5A1D70Z Performance of Urinary Filtration, Intermittent, Less than 6 Hours Per Day (ICD-10-PCS; 2016-11-29)
PROC: 5A1D70Z Performance of Urinary Filtration, Intermittent, Less than 6 Hours Per Day (ICD-10-PCS; 2016-11-29)
PROC: 0TB03ZX Excision of Right Kidney, Percutaneous Approach, Diagnostic (ICD-10-PCS; 2016-12-02)
PROC: 0BDB8ZX Extraction of Left Lower Lobe Bronchus, Via Natural or Artificial Opening Endoscopic, Diagnostic (ICD-10-PCS; 2016-12-05)
PROC: 0BD58ZX Extraction of Right Middle Lobe Bronchus, Via Natural or Artificial Opening Endoscopic, Diagnostic (ICD-10-PCS; 2016-12-05)
PROC: 0BD68ZX Extraction of Right Lower Lobe Bronchus, Via Natural or Artificial Opening Endoscopic, Diagnostic (ICD-10-PCS; 2016-12-05)
PROC: 0BD38ZX Extraction of Right Main Bronchus, Via Natural or Artificial Opening Endoscopic, Diagnostic (ICD-10-PCS; 2016-12-05)
PROC: 0BD48ZX Extraction of Right Upper Lobe Bronchus, Via Natural or Artificial Opening Endoscopic, Diagnostic (ICD-10-PCS; 2016-12-05)
PROC: 03180ZD Bypass Left Brachial Artery to Upper Arm Vein, Open Approach (ICD-10-PCS; principal; 2016-12-10 13:20)
PROC: 0DB98ZX Excision of Duodenum, Via Natural or Artificial Opening Endoscopic, Diagnostic (ICD-10-PCS; 2016-12-18)
PROC: 0DB68ZX Excision of Stomach, Via Natural or Artificial Opening Endoscopic, Diagnostic (ICD-10-PCS; 2016-12-18)
PROC: 0DB38ZX Excision of Lower Esophagus, Via Natural or Artificial Opening Endoscopic, Diagnostic (ICD-10-PCS; 2016-12-18)
PROC: 0DBK8ZX Excision of Ascending Colon, Via Natural or Artificial Opening Endoscopic, Diagnostic (ICD-10-PCS; 2016-12-18)
PROC: 0BDK4ZX Extraction of Right Lung, Percutaneous Endoscopic Approach, Diagnostic (ICD-10-PCS; 2016-12-23)
PROC: 0BNK4ZZ Release Right Lung, Percutaneous Endoscopic Approach (ICD-10-PCS; 2016-12-30)
PROC: 0BBN4ZX Excision of Right Pleura, Percutaneous Endoscopic Approach, Diagnostic (ICD-10-PCS; 2016-12-30)
PROC: 0BBC4ZX Excision of Right Upper Lung Lobe, Percutaneous Endoscopic Approach, Diagnostic (ICD-10-PCS; 2016-12-30)
DX: A41.9 Sepsis, unspecified organism (principal); J86.0 Pyothorax with fistula; J96.01 Acute respiratory failure with hypoxia; I47.2 Ventricular tachycardia; N17.9 Acute kidney failure, unspecified; R64 Cachexia; E87.2 Acidosis; D89.9 Disorder involving the immune mechanism, unspecified; N18.5 Chronic kidney disease, stage 5; J94.8 Other specified pleural conditions; K92.1 Melena; R04.2 Hemoptysis; D62 Acute posthemorrhagic anemia; J44.1 Chronic obstructive pulmonary disease with (acute) exacerbation; L03.313 Cellulitis of chest wall; N25.81 Secondary hyperparathyroidism of renal origin; J84.89 Other specified interstitial pulmonary diseases; J84.10 Pulmonary fibrosis, unspecified; B19.20 Unspecified viral hepatitis C without hepatic coma; I25.119 Atherosclerotic heart disease of native coronary artery with unspecified angina pectoris; E86.0 Dehydration; F41.9 Anxiety disorder, unspecified; D12.2 Benign neoplasm of ascending colon; E87.6 Hypokalemia; E88.09 Other disorders of plasma-protein metabolism, not elsewhere classified; K57.30 Diverticulosis of large intestine without perforation or abscess without bleeding; K64.4 Residual hemorrhoidal skin tags; K64.8 Other hemorrhoids; K44.9 Diaphragmatic hernia without obstruction or gangrene; K29.70 Gastritis, unspecified, without bleeding; K20.9 Esophagitis, unspecified; E83.39 Other disorders of phosphorus metabolism; E83.51 Hypocalcemia; D63.1 Anemia in chronic kidney disease; R81 Glycosuria; G47.00 Insomnia, unspecified; Z16.24 Resistance to multiple antibiotics; E87.5 Hyperkalemia; R21 Rash and other nonspecific skin eruption; T81.82XA Emphysema (subcutaneous) resulting from a procedure, initial encounter; I25.2 Old myocardial infarction; Z95.1 Presence of aortocoronary bypass graft; Z87.891 Personal history of nicotine dependence; Z86.74 Personal history of sudden cardiac arrest
CPT/HCPCS: 32405; 36430; 36558; 36600; 50200; 71010; 71020; 71250; 76775; 76937; 77001; 77012; 80048; 80053; 80069; 80074; 80202; 81001; 82164; 82306; 82378; 82550; 82552; 82565; 82570; 82785; 82805; 82948; 83036; 83540; 83550; 83605; 83735; 83880; 83970; 84100; 84133; 84145; 84153; 84155; 84156; 84157; 84165; 84300; 84439; 84443; 84484; 85007; 85014; 85018; 85025; 85027; 85610; 85652; 85730; 86021; 86038; 86140; 86160; 86317; 86403; 86606; 86703; 86803; 86850; 86900; 86901; 86920; 87015; 87040; 87070; 87071; 87077; 87086; 87102; 87116; 87176; 87186; 87205; 87206; 87328; 87329; 87340; 87493; 87506; 88305; 88307; 88309; 88312; 88313; 88341; 88342; 90935; 93005; 93306; 93970; 93998; 94150; 94640; 94664; 96374; 96375; 99152; 99153; 99291; C1750; C1769; C9113; J0171; J0456; J0610; J0690; J0692; J0696; J1100; J1170; J1580; J1644; J1650; J1815; J2250; J2270; J2370; J2405; J2543; J2920; J2930; J3010; J3370; J3480; J7030; J7040; J7050; J7070; J7512; J7613; J7626; P9016; P9040; P9047; Q4081

== ENCOUNTER 2017-02-19 15:10 | Inpatient (IN) | payer SELFPAY ==
[~2017-02-19] VITALS: Ht 182.9 cm; Wt 61.0 kg
[~2017-02-19 15:10] MED LIST changes: +ALBU12.5P IV; -ALBU8I INH; +BENA25CA4 PO; +BUDE.5I NEB; -CEPH500C3 PO; +DOCU1CAP39 PO; +ENOX30P SQ; +EPOG4000 IV; +FERR325T20 PO; +FOLI400T PO; +GENT20P IV; +HEPAR10KP; +HYDR-3516 PO; +IPRASOL NEB; -LORTA5 PO; -METO50 PO; +PANT40TA3 PO; +POLY17S PO; +PRED10 PO; +SEVEL800 PO; -ST J81CH PO; +VITA1000 PO; +VITA500T2 PO; +VITACAP7 PO
[2017-02-19 22:55] VITALS: BP 122/71; PULSE 75; RESP 16; TEMP 97.8; O2SAT 92
[2017-02-19 23:00] VITALS: BP 117/69; PULSE 77; RESP 16; TEMP 98.2; O2SAT 91
[2017-02-19] MEDS ORDERED: BISACODYL 10 MG SUPP RECTAL PRN (23:15)
[2017-02-19] MEDS ORDERED: SENNOSIDES 8.6 MG TAB PO PRN (23:15)
[2017-02-19] MEDS ORDERED: ACETAMINOPHEN 325 MG TAB PO PRN (23:15)
[2017-02-19] MEDS ORDERED: LACTULOSE SYRUP 20 GM/30 ML CUP PO PRN (23:15)
[2017-02-19] MEDS ORDERED: NALOXONE HCL 0.4 MG/ML AMP IV PUSH PRN (23:15)
[2017-02-19] MEDS ORDERED: SODIUM CHLORIDE 0.9% FLUSH 10 ML FLUSH IV FLUSH PRN (23:15)
[2017-02-20] MEDS ORDERED: CORE25TA PO (01:24)
[2017-02-20] MEDS ORDERED: CYCL5TAB PO (01:26)
[2017-02-20] MEDS ORDERED: MERO1INJ IV ×2 (01:27→01:31)
[2017-02-20] MEDS ORDERED: VIBR100C PO (01:29)
[2017-02-20] MEDS ORDERED: SPIRCAP INH (01:30)
[2017-02-20] MEDS ORDERED: [UNRECOGNIZED DRUG - CODE] SQ (01:33)
[2017-02-20] MEDS: TIOTROPIUM BROMIDE 18 MCG INH INH SCH ×3 (03:27→21:00)
[2017-02-20] MEDS: CARVEDILOL 12.5 MG TAB PO SCH ×3 (03:27→21:00)
[2017-02-20] MEDS: DOXYCYCLINE HYCLATE 100 MG CAP PO SCH ×3 (03:27→21:52)
[2017-02-20] MEDS ORDERED: MEROPENEM 1000 MG VIAL IV SCH (04:00)
[2017-02-20 04:15] VITALS: BP 96/58; PULSE 85; RESP 16; TEMP 97.7; O2SAT 91
[2017-02-20] MEDS ORDERED: CYCLOBENZAPRINE HCL 10 MG TAB PO PRN (05:00)
--- NOTE | 2017-02-20 05:43 | HHI.HP ---
[facility] Service [place] [facility] . Primary Care Physician No Primary Care Physician . Admission Diagnosis Bronchopleural fistula . Diagnoses: (1) Bronchopleural fistula (2) Right thoracotomy with VATS assist, lysis of adhesions, decortication, pleural biopsies (3) ESRD (end stage renal disease) on dialysis (4) Empyema lung (5) MRSA infection Chief Complaint: shortness of breath and pain Travel History International Travel<30 Days: No Contact w/Intl Traveler <30 Da: No Traveled to Known Affected Are: No History of Present Illness Mr. Fonseca is a 56 year old male who has had a very long and complicated history of present illness. He has a known medical history of coronary artery disease status post CABG and chronic kidney disease who initially presented to the hospital on November 22, 2016 with sepsis, anemia, acute renal failure, and extensive right lung pneumonia with cavitation and underwent a right thoracotomy with VATS, lysis of adhesions, and decortication for pulmonary infiltrate in right lung and COPD on 12/30 but developed right chest tube related bronchopleural fistula. He was transferred to [facility] in [place] for further management of persistent leak/bronchopleural fistula. He was discharged on 01/22/2017. Extensive records reviewed from [facility] and are summarized as follows: The patient was treated at [facility] with bronchoscopy on 01/30/2017 with endobronchial valves and gluing. Bronchoscopy had to be repeated on 02/03/2017 for persistent air leak with endobronchial valves and gluing. He was taken for a third bronchoscopy on 02/10/2017 for the persistent air leak but they were unable to see the air leak during the procedure and therefore no new valves are gluing were performed. He also had a CT-guided chest tube placed on 01/24/[address] Lopez and interventional radiologist at [facility] for a right basilar fluid pocket and cultures were taken of the fluid. The cultures were positive for MRSA, pseudomonas, strep viridans, and bacteroides fragilis. He was started on meropenem on 01/26/2017, and according to records reviewed from [facility], he will need 4-6 weeks of meropenem IV antibiotic therapy. The patient has a follow-up with Dr. Lopez at [facility] on 03/05/[address] imaging. The patient is seen in his hospital room. He reports persistent severe chest pain related to his chest tubes and pneumonia. He states this is not increased or worsened or changed. The pain is relieved with the when necessary medications he has been receiving. He also reports shortness of breath that is worsened with exertion. He reports extremely poor appetite with weight loss of 26 pounds in the past 3 months which is unintentional. He reports that he will not eat a restricted diet and wants to be able to continue to have options for foods. He does not have any desire to order fatty fried foods or cheesy foods but would like the expanded menu of her regular diet. We discussed the risks with his heart disease and kidney disease and he expresses some knowledge of how to select foods and avoid excess salt and potassium. At this point, it seems more prudent to support adequate nutrition by allowing him a regular diet given his severe cachexia noted during examination. 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 He was then placed on linezolid but this was discontinued because of low platelets. He was then placed on doxycycline. . Review of Systems Except as stated in HPI: all other systems reviewed are Neg Past Family Social History Past Medical History ESRD on hemodialysis Sepsis Anemia Acute renal failure Right lung pneumonia with cavitation Coronary artery disease status post CABG 3 Neck pain Myocardial infarction COPD Hypertension Asthma Gastric ulcers Osteoporosis Anxiety . Past Surgical History Right thoracotomy with VATS, lysis of adhesions, and decortication for pulmonary infiltrate in right lung and COPD on 12/30 - Dr. Walton Multiple bronchoscopies CABG 3 Left arm AV shunt . Reported Medications Reported Meds & Active Scripts Active D 1000 (Cholecalciferol) 1,000 Unit Tab 2,000 Units PO DAILY C 500/Justine Hips (Ascorbic Acid) 500 Mg Tab 500 Mg PO BID@1200,1700 Prednisone 10 Mg Tab 10 Mg PO DAILY Pantoprazole (Pantoprazole Sodium) 40 Mg Tab 40 Mg PO HS Polyethylene Glycol 3350 Powder (Polyethylene Glycol) 17 Gram Pow 17 Gm PO DAILY Dok (Docusate Sodium) 100 Mg Cap 100 Mg PO BID Pulmicort Respules (Budesonide) 0.5 Mg/2 Ml Neb 0.5 Mg NEB BID NEB Renvela (Sevelamer Carbonate) 800 Mg Tab 1,600 Mg PO TIDAC Hydrocodone-Acetaminophen 5-325 mg Tab 1 Tab PO Q4H PRN Epogen Inj (Epoetin Joe) 4,000 Unit/Ml Inj 4,000 Units IV UNSCH PRN Heparin Inj (Heparin Sodium (Porcine)) 10,000 Units/10 Ml Inj 0 Units .XX UNSCH PRN Lovenox Inj (Enoxaparin Sodium) 30 Mg/0.3 Ml Syr 30 Mg SQ EVERY OTHER DAY Ferosul (Ferrous Sulfate) 325 Mg (65 Mg Iron) Tablet 325 Mg PO BID@17 Flexbumin Inj (Albumin Human) 0.25 Gm/Ml Soln 25 Gm IV UNSCH PRN Duoneb (Ipratropium-Albuterol Neb) 0.5-2.5 Mg/3 Ml Neb 1 Ampule NEB Q4HR NEB PRN Gentamicin Inj (Gentamicin Sulfate) 20 Mg/2 Ml Inj 20 Mg IV UNSCH PRN Benadryl Allergy (Diphenhydramine HCl) 25 Mg Cap 25 Mg PO Q8H PRN dialysis Reported Aranesp (Albumin Free) Inj (Darbepoetin Joe Inj) 150 Mcg/0.3 Ml Inj Unknown Dose SQ Q7D Merrem Inj (Meropenem) 1 Gram Inj 1,000 Mg IV Q24H Infuse over 30 minutes Spiriva Handihaler (Tiotropium Inh) 18 Mcg Cap 18 Mcg INH BID 1 capsule = 18 mcg Vibramycin (Doxycycline Hyclate) 100 Mg Cap 100 Mg PO BID Merrem Inj (Meropenem) 1 Gram Inj 1,000 Mg IV Q24H Infuse over 30 minutes Flexeril (Cyclobenzaprine HCl) 5 Mg Tab 5 Mg PO TID Coreg (Carvedilol) 25 Mg Tab 25 Mg PO BID B Complex (B-Complex Vitamins) 1 Cap 1 Cap PO DAILY Folic Acid 400 Mcg Tab 400 Mcg PO DAILY . Allergies: Coded Allergies: No Known Allergies (Unverified , 09/26/13) Active Ordered Medications Current Medications Sodium Chloride (NS Flush) 2 ml UNSCH PRN IV FLUSH FLUSH AFTER USING IV ACCESS ; Start 02/19/17 at 23:15 Sodium Chloride (NS Flush) 2 ml BID IV FLUSH ; Start 02/20/17 at 09:00 Acetaminophen (Tylenol) 650 mg Q4H PRN PO TEMP > 100.4; Start 02/19/17 at 23: 15 Naloxone HCl (Narcan Inj) 0.4 mg UNSCH PRN IV PUSH SEE LABEL COMMENTS; Start 02/19/17 at 23:15 Sennosides (Senokot) 17.2 mg Q12H PRN PO Moderate constipation; Start at 23:15 Bisacodyl (Dulcolax Supp) 10 mg DAILY PRN RECTAL SEVERE CONSITIPATION; Start 02/19/17 at 23:15 Lactulose (Lactulose Liq) 30 ml DAILY PRN PO SEVERE CONSITIPATION; Start 02/19 at 23:15 Carvedilol (Coreg) 25 mg BID PO Last administered on 02/20/17 03:27; Start 02/20/17 at 03:00 Cyclobenzaprine HCl (Flexeril) 5 mg TID PO ; Start 02/20/17 at 09:00; Stop at 09:00; Status DC Doxycycline Hyclate (Vibramycin) 100 mg BID PO Last administered on 02/20/17 03:27; Start 02/20/17 at 03:00 Folic Acid (Folate) 1 mg DAILY PO ; Start 02/20/17 at 09:00 Meropenem (Merrem Inj) 1,000 mg Q24H IV ; Start 02/20/17 at 04:00; Status Cancel Pantoprazole Sodium (Protonix) 40 mg HS PO ; Start 02/20/17 at 21:00 Sevelamer Carbonate (Renvela) 1,600 mg TIDAC PO ; Start 02/20/17 at 08:00 Tiotropium [place] (Spiriva Inh) 18 mcg BID INH Last administered on 03:27; Start 02/20/17 at 03:00 Meropenem 1000 mg/ Sodium Chloride 100 ml @ 200 mls/hr DAILY@0500 IV Last administered on 02/20/17 05:56; Start 02/20/17 at 05:00 Darbepoetin Joe (Aranesp Inj) 40 mcg Q7D SQ ; Start 02/20/17 at 09:00 Cholecalciferol (Vitamin D3) 2,000 units DAILY PO ; Start 02/20/17 at 09:00 Vitamin B Complex/ Vitamin C (Allbee C) 1 tab DAILY PO ; Start 02/20/17 at 09: 00; Stop 02/20/17 at 09:00; Status DC Ascorbic Acid (Vitamin C) 500 mg BID@1200,1700 PO ; Start 02/20/17 at 12:00 Non-Formulary Medication 1 cap DAILY PO ; Start 02/20/17 at 09:00; Status UNV Ferrous Sulfate (Ferrous Sulfate) 325 mg BID PO ; Start 02/20/17 at 09:00; Stop 02/20/17 at 09:00; Status DC Multivitamins (Theragran) 1 tab DAILY PO ; Start 02/20/17 at 09:00 Diphenhydramine HCl (Benadryl) 25 mg Q6H PRN PO pruritis; Start 02/20/17 at 05 :00 Albuterol Sulfate (Albuterol Neb) 2.5 mg Q2HR NEB PRN INH sob/wheezing; Start 02/20/17 at 05:00 Cyclobenzaprine HCl (Flexeril) 5 mg Q8H PRN PO muscle spasm; Start 02/20/17 at 05:00 Oxycodone/ Acetaminophen (Percocet 5-325 Mg) 1 tab Q4H PRN PO pain > 5; Start 02/20/17 at 05:00 Family History Cardiovascular disease on father's side . Social History Tobacco: Quit smoking in 2013 Alcohol: None Illicit Drugs: None . Physical Exam Vital Signs Vital Signs Date Time Temp Pulse Resp B/P (MAP) Pulse Ox O2 Delivery O2 Flow Rate FiO2 02/20/17 04:15 97.7 85 16 96/58 (71) 91 02/20/17 00:00 94 Room Air 02/19/17 23:00 98.2 77 16 117/69 (85) 91 02/19/17 22:55 97.8 75 16 122/71 (88) 92 Physical Exam GENERAL: This is a cachectic male patient, in no apparent distress with a BMI of 18.1. SKIN: No rashes. Cool and dry. Right lateral chest wall with well healed thoracotomy scar. Chest tubes secured to bilateral upper chest wall. No signs of infection are noted. HEAD: Atraumatic. Normocephalic. EYES: No scleral icterus. No injection or drainage. ENT: Nose without bleeding, purulent drainage. NECK: Trachea midline. No JVD or lymphadenopathy. CARDIOVASCULAR: Regular rate and rhythm without murmurs, gallops, or rubs. RESPIRATORY: Clear to auscultation. Breath sounds equal bilaterally. No wheezes , rales, or rhonchi. GASTROINTESTINAL: Abdomen soft, non-tender, nondistended. No guarding. MUSCULOSKELETAL: Extremities without clubbing, cyanosis, or edema. No calf tenderness. NEUROLOGICAL: Awake and alert. Motor and sensory grossly within normal limits. Normal speech. . Caprini VTE Risk Assessment Caprini VTE Risk Assessment: Mod/High Risk (score >= 2) Caprini Risk Assessment Model Point Value = 1 Point Value = 2 Point Value = 3 Point Value = 5 Age 41-60 Minor surgery BMI > 25 kg/m2 Swollen legs Varicose veins or History of unexplained or recurrent spontaneous Oral contraceptives or hormone replacement Sepsis (< 1 month) Serious lung disease, including pneumonia (< 1 month) Abnormal pulmonary function Acute myocardial infarction Congestive heart failure (< 1 month) History of inflammatory bowel disease Medical patient at bed rest Age 61-74 Arthroscopic surgery Major open surgery (> 45 min) Laparoscopic surgery (> 45 min) Malignancy Confined to bed (> 72 hours) Immobilizing plaster cast Central venous access Age >= 75 History of VTE Family history of VTE Factor V Leiden Prothrombin [id number] Lupus anticoagulant Anticardiolipin antibodies Elevated serum homocysteine Heparin-induced thrombocytopenia Other congenital or acquired thrombophilia Stroke (< 1 month) Elective arthroplasty Hip, pelvis, or leg fracture Acute spinal cord injury (< 1 month) Prophylaxis Regimen Total Risk Factor Score Risk Level Prophylaxis Regimen 0-1 Low Early ambulation 2 Moderate Order ONE of the following: *Sequential Compression Device (SCD) *Heparin 5000 units SQ BID 3-4 Higher Order ONE of the following medications: *Heparin 5000 units SQ TID *Enoxaparin/Lovenox 40 mg SQ daily (WT < 150 kg, CrCl > 30 mL/min) *Enoxaparin/Lovenox 30 mg SQ daily (WT < 150 kg, CrCl > 10-29 mL/min) *Enoxaparin/Lovenox 30 mg SQ BID (WT < 150 kg, CrCl > 30 mL/min) AND/OR *Sequential Compression Device (SCD) 5 or more Highest Order ONE of the following medications: *Heparin 5000 units SQ TID (Preferred with Epidurals) *Enoxaparin/Lovenox 40 mg SQ daily (WT < 150 kg, CrCl > 30 mL/min) *Enoxaparin/Lovenox 30 mg SQ daily (WT < 150 kg, CrCl > 10-29 mL/min) *Enoxaparin/Lovenox 30 mg SQ BID (WT < 150 kg, CrCl > 30 mL/min) AND *Sequential Compression Device (SCD) Assessment and Plan Problem List: (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 Fonseca is a 56 year old male who has had a very long and complicated history of present illness. He has a known medical history of coronary artery disease status post CABG and chronic kidney disease who initially presented to the hospital on November 22, 2016 with sepsis, anemia, acute renal failure, and extensive right lung pneumonia with cavitation and underwent a right thoracotomy with VATS, lysis of adhesions, and decortication for pulmonary infiltrate in right lung and COPD on 12/30 but developed right chest tube related bronchopleural fistula. He was transferred to [facility] in [place] for further management of persistent leak/bronchopleural fistula. He was discharged on 01/22/2017. He returned following treatment at [facility] on 02/19. Bronchopleural fistula History of Right thoracotomy with VATS Empyema lung with MRSA - status post multiple bronchoscopies with endotracheal valves and gluing performed at [facility] - Keep f/u appointment with IR physician Dr. Lopez 03/05 - continue Meropenem for 4 - 6 weeks (started 01/26) unless otherwise advised by ID - ID consulted, Pulmonology consulted End-stage renal disease on hemodialysis - Consult nephrology - Avoid nephrotoxins - Monitor electrolytes Anemia, iron deficiency vs CKD or combination - Check CBC - Start ferrous sulfate 300 mg liquid twice a day with vitamin C 500 mg twice a day administered at the same time. Avoid dosing with doxycycline due to impaired absorption. - continue Aranesp COPD - Albuterol nebulizer every 2 hours as needed for shortness of breath or wheezing - Continue Spiriva inhaler Malnutrition - Regular diet - Nepro one can 3 times a day between meals - Dietitian consulted to assist with nutritional support and nutritional recommendations DVT prophylaxis - Patient reports being ambulatory - Recommend SCDs teds while in bed Discussed Condition With Patient, Dr. Johnson, and RN . Physician Certification 2 Midnight Certification Type: Admission for Inpatient Services Order for Inpatient Services The services are ordered in accordance with Medicare regulations or non- Medicare payer requirements, as applicable. In the case of services not specified as inpatient-only, they are appropriately provided as inpatient services in accordance with the 2-midnight benchmark. Estimated LOS (days): 3 days is the estimated time the patient will need to remain in the hospital, assuming treatment plan goals are met and no additional complications. Post-Hospital Plan: Home Shikha Navarro Feb 20, 2017 05:43
[2017-02-20] MEDS: MEROPENEM 1000 MG/NS 100 ML IV SCH ×2 (05:56)
[2017-02-20 07:22] LABS: ANION GAP 7 MEQ/L (5-15); AST (GOT) 14 U/L (15-37); BICARBONATE 29.3 MEQ/L (21.0-32.0); BLOOD UREA NITROGEN 32 MG/DL (7-18); CHLORIDE 100 MEQ/L (98-107); GLOMERULAR FILTRATION RATE 10 ML/MIN (>89); POTASSIUM 4.1 MEQ/L (3.5-5.1); SODIUM (NA) 136 MEQ/L (136-145)
[2017-02-20 07:23] LABS: ALT (GPT) 12 U/L (12-78)
[2017-02-20 07:25] LABS: ALKALINE PHOSPHATASE 83 U/L (45-117); TOTAL BILIRUBIN ADULT 0.3 MG/DL (0.2-1.0)
[2017-02-20 07:27] LABS: AUTOMATED NEUTROPHIL # 3.3 TH/MM3 (1.8-7.7); BASOPHIL % 0.8 % (0.0-2.0); EOSINOPHIL # 0.8 TH/MM3 (0-0.4); EOSINOPHIL % 12.5 % (0.0-4.0); HEMATOCRIT 21.9 % (39.0-51.0); HEMO FLAGS DIFF FINAL; LYMPH % 27.9 % (9.0-44.0); LYMPHOCYTE # 1.8 TH/MM3 (1.0-4.8); MEAN CELL VOLUME 91.9 FL (80.0-100.0); MEAN CORPUSCULAR HEMOGLOBIN 30.7 PG (27.0-34.0); MEAN CORPUSCULAR HGB CONC 33.4 % (32.0-36.0); NEUT % 49.8 % (16.0-70.0); PLATELET COUNT 202 TH/MM3 (150-450); RED BLOOD COUNT 2.39 MIL/MM3 (4.50-5.90); RED CELL DISTRIBUTION WIDTH 18.9 % (11.6-17.2); WHITE BLOOD COUNT 6.5 TH/MM3 (4.0-11.0)
[2017-02-20 08:00] VITALS: BP 106/68; PULSE 80; RESP 18; TEMP 98; O2SAT 92
[2017-02-20] MEDS ORDERED: DARBEPOETIN ALFA/POLYSORBATE 40 MCG/ML VIAL SQ SCH (09:00)
[2017-02-20] MEDS ORDERED: NON-FORMULARY DRUG (B-Complex Vitamins (B Complex) 1 CAP) PO SCH (09:00)
[2017-02-20] MEDS ORDERED: VITAMIN B COMPLEX/VIT C TAB PO SCH (09:00)
[2017-02-20] MEDS ORDERED: CYCLOBENZAPRINE HCL 10 MG TAB PO SCH (09:00)
[2017-02-20] MEDS ORDERED: FERROUS SULFATE 325 MG (65 MG ELEMENTAL IRON) TAB PO SCH (09:00)
[2017-02-20] MEDS ORDERED: SODIUM CHLOR 0.9% 1000 ML INJ 1,000 ML OTHER PRN (09:11)
[2017-02-20] MEDS ORDERED: SODIUM CHLOR 0.9% 1000 ML INJ 1,000 ML IV PRN (09:11)
[2017-02-20] MEDS ORDERED: ACETAMINOPHEN 325 MG TAB PO PRN (09:15)
[2017-02-20] MEDS ORDERED: cloNIDine HCL 0.1 MG TAB PO PRN (09:15)
[2017-02-20] MEDS ORDERED: diphenhydrAMINE HCL 25 MG CAP PO PRN (09:15)
[2017-02-20] MEDS ORDERED: GELATIN 12 MM/7 MM FOAM TOP PRN (09:15)
[2017-02-20] MEDS ORDERED: MANNITOL 12.5 GM/50 ML VIAL IV PRN (09:15)
[2017-02-20] MEDS ORDERED: ALBUMIN 25% INJ 100 ML IV PRN (09:15)
[2017-02-20] MEDS ORDERED: SODIUM CHLORIDE 0.9% FLUSH 10 ML FLUSH IV FLUSH PRN (09:15)
[2017-02-20] MEDS ORDERED: HEPARIN SODIUM - IV 10,000 UNITS/10 ML VIAL IV FLUSH PRN (09:15)
[2017-02-20] MEDS ORDERED: ONDANSETRON HCL 4 MG/2 ML VIAL IV PUSH PRN (09:15)
[2017-02-20] MEDS ORDERED: NITROGLYCERIN 0.4 MG SL 25 TABS/BTL SL PRN (09:15)
[2017-02-20] MEDS: CHOLECALCIFEROL (VIT D3) 1000 UNIT TAB PO SCH (09:48)
[2017-02-20] MEDS: MULTIVITAMIN TAB PO SCH (09:48)
[2017-02-20] MEDS: SODIUM CHLORIDE 0.9% FLUSH 10 ML FLUSH IV FLUSH SCH ×2 (09:53→21:52)
[2017-02-20] MEDS: FOLIC ACID 1 MG TAB PO SCH (09:53)
[2017-02-20] MEDS: SEVELAMER CARBONATE 800 MG TAB PO SCH ×3 (09:53→17:00)
--- NOTE | 2017-02-20 10:41 | PD.CONS ---
[facility] Service Nephrology Consult Requested By Reason for Consult ESRD on HD Primary Care Physician No Primary Care Physician History of Present Illness This is a 56 y/o male known to our service. He was admitted in November with renal failure, was started on hemodialysis around that time. He had complicated medical issues including recurrent hypokalemia, anemia, and pneumonia with development of bronchopleural fistula that required a chest tube and eventual transfer to [facility]. The following was pulled from admission note: The patient was treated at [facility] with bronchoscopy on 01/30/2017 with endobronchial valves and gluing. Bronchoscopy had to be repeated on 02/03/2017 for persistent air leak with endobronchial valves and gluing. He was taken for a third bronchoscopy on 02/10/2017 for the persistent air leak but they were unable to see the air leak during the procedure and therefore no new valves are gluing were performed. He also had a CT-guided chest tube placed on 01/24/[address] Lopez and interventional radiologist at [facility] for a right basilar fluid pocket and cultures were taken of the fluid. The cultures were positive for MRSA, pseudomonas, strep viridans, and bacteroides fragilis. He was started on meropenem on 01/26/2017, and according to records reviewed from [facility], he will need 4-6 weeks of meropenem IV antibiotic therapy. The patient has a follow-up with Dr. Lopez at [facility] on 03/05/[address] imaging. He has been on MWF HD since his transfer. He has PermCath that has not been exchanged since it was placed here. He had AVF sugery that failed prior to transfer. We were consulted to manage his HD. He is being treated for empyema. (Milla Pack) Review of Systems Constitutional: COMPLAINS OF: Fatigue, Weight loss, DENIES: Change in appetite Respiratory: COMPLAINS OF: Shortness of breath Cardiovascular: COMPLAINS OF: Dyspnea on Exertion, DENIES: Chest pain, Lower Extremity Edema Gastrointestinal: DENIES: Abdominal pain (Milla Pack) Past Family Social History Allergies: Coded Allergies: No Known Allergies (Unverified Allergy, Unknown, 02/20/17) linezolid (Verified Adverse Reaction, Severe, 02/20/17) thrombocytopenia vancomycin (Verified Adverse Reaction, Intermediate, 02/20/17) red man's syndrome Past Medical History ESRD on hemodialysis Sepsis Anemia Acute renal failure Right lung pneumonia with cavitation Coronary artery disease status post CABG 3 Neck pain Myocardial infarction COPD Hypertension Asthma Gastric ulcers Osteoporosis Anxiety Past Surgical History Right thoracotomy with VATS, lysis of adhesions, and decortication for pulmonary infiltrate in right lung and COPD on 12/30 - Dr. Walton Multiple bronchoscopies CABG 3 Left arm AV shunt Reported Medications Aranesp (Albumin Free) Inj (Darbepoetin Joe Inj) 150 Mcg/0.3 Ml Inj Unknown Dose SQ Q7D Merrem Inj (Meropenem) 1 Gram Inj 1,000 Mg IV Q24H Infuse over 30 minutes Spiriva Handihaler (Tiotropium Inh) 18 Mcg Cap 18 Mcg INH BID 1 capsule = 18 mcg Vibramycin (Doxycycline Hyclate) 100 Mg Cap 100 Mg PO BID Merrem Inj (Meropenem) 1 Gram Inj 1,000 Mg IV Q24H Infuse over 30 minutes Flexeril (Cyclobenzaprine HCl) 5 Mg Tab 5 Mg PO TID Coreg (Carvedilol) 25 Mg Tab 25 Mg PO BID B Complex (B-Complex Vitamins) 1 Cap 1 Cap PO DAILY Folic Acid 400 Mcg Tab 400 Mcg PO DAILY Active Ordered Medications Current Medications Medications (Trade) Dose Ordered Sig/Edwin Route Start Time Stop Time Status Last Admin (NS Flush) 2 ml UNSCH PRN IV FLUSH 02/19/17 23:15 (NS Flush) 2 ml BID IV FLUSH 02/20/17 09:00 02/20/17 09:53 (Tylenol) 650 mg Q4H PRN PO 02/19/17 23:15 (Narcan Inj) 0.4 mg UNSCH PRN IV PUSH 02/19/17 23:15 (Senokot) 17.2 mg Q12H PRN PO 02/19/17 23:15 (Dulcolax Supp) 10 mg DAILY PRN RECTAL 02/19/17 23:15 (Lactulose Liq) 30 ml DAILY PRN PO 02/19/17 23:15 (Coreg) 25 mg BID PO 02/20/17 03:00 02/20/17 03:27 (Vibramycin) 100 mg BID PO 02/20/17 03:00 02/20/17 09:47 (Folate) 1 mg DAILY PO 02/20/17 09:00 02/20/17 09:53 (Protonix) 40 mg HS PO 02/20/17 21:00 (Renvela) 1,600 mg TIDAC PO 02/20/17 08:00 02/20/17 09:53 (Spiriva Inh) 18 mcg BID INH 02/20/17 03:00 02/20/17 09:48 Meropenem 1000 mg/ Sodium Chloride 100 ml @ 200 mls/hr DAILY@0500 IV 02/20/17 05:00 02/20/17 05:56 (Aranesp Inj) 40 mcg Q7D SQ 02/20/17 09:00 Future Hold (Vitamin D3) 2,000 units DAILY PO 02/20/17 09:00 02/20/17 09:48 (Vitamin C) 500 mg BID@1200,1700 PO 02/20/17 12:00 (Theragran) 1 tab DAILY PO 02/20/17 09:00 02/20/17 09:48 (Benadryl) 25 mg Q6H PRN PO 02/20/17 05:00 (Albuterol Neb) 2.5 mg Q2HR NEB PRN INH 02/20/17 05:00 (Flexeril) 5 mg Q8H PRN PO 02/20/17 05:00 (Percocet 5-325 Mg) 1 tab Q4H PRN PO 02/20/17 05:00 (Ferrous Sulfate Liq) 300 mg DAILY@1200,1700 PO 02/20/17 12:00 Sodium Chloride 1,000 ml @ 0 mls/hr Q0M PRN OTHER 02/20/17 09:11 (Heparin Inj) 8,000 units UNSCH PRN IV FLUSH 02/20/17 09:15 Sodium Chloride 1,000 ml @ 200 mls/hr Q5H PRN IV 02/20/17 09:11 Sodium Chloride 1,000 ml @ 0 mls/hr Q0M PRN OTHER 02/20/17 09:11 (Mannitol Inj) 12.5 gm UNSCH PRN IV 02/20/17 09:15 Albumin Human 100 ml @ 60 mls/hr UNSCH PRN IV 02/20/17 09:15 (NS Flush) 5 ml UNSCH PRN IV FLUSH 02/20/17 09:15 (Heparin Inj) UNSCH PRN .XX 02/20/17 09:15 (Gentamicin (Dialysis) Inj) 20 mg UNSCH PRN OTHER 02/20/17 09:15 (Zofran Inj) 4 mg UNSCH PRN IV PUSH 02/20/17 09:15 (Tylenol) 650 mg UNSCH PRN PO 02/20/17 09:15 (Benadryl) 25 mg UNSCH PRN PO 02/20/17 09:15 (Nitrostat Sl) 0.4 mg UNSCH PRN SL 02/20/17 09:15 (Catapres) 0.1 mg UNSCH PRN PO 02/20/17 09:15 (Epogen Inj) 10,000 units UNSCH PRN IV PUSH 02/20/17 09:15 (Gelfoam 12 Mm/7 Mm Top) 1 foam UNSCH PRN TOP 02/20/17 09:15 Family History No hx of renal disorders Social History Former smoker Unemployed Has brother that lives in the area full code (Milla Pack) Physical Exam Vital Signs Vital Signs Date Time Temp Pulse Resp B/P (MAP) Pulse Ox O2 Delivery O2 Flow Rate FiO2 02/20/17 08:00 92 Room Air 02/20/17 08:00 98.0 80 18 106/68 (81) 92 02/20/17 06:33 93 Room Air 02/20/17 04:15 97.7 85 16 96/58 (71) 91 02/20/17 00:00 94 Room Air 02/19/17 23:00 98.2 77 16 117/69 (85) 91 02/19/17 22:55 97.8 75 16 122/71 (88) 92 Physical Exam Cachectic male Awake, A&Ox3 Lungs clear, no wheezing; has bandage right lower lung S1/S2, RRR NO edema abdomen flat, non tender AVF left arm without thrill/bruit Laboratory Laboratory Tests Test 02/20/17 06:40 White Blood Count 6.5 Red Blood Count 2.39 Hemoglobin 7.3 Hematocrit 21.9 Mean Corpuscular Volume 91.9 Mean Corpuscular Hemoglobin 30.7 Mean Corpuscular Hemoglobin Concent 33.4 Red Cell Distribution Width 18.9 Platelet Count 202 Mean Platelet Volume 8.0 Neutrophils (%) (Auto) 49.8 Lymphocytes (%) (Auto) 27.9 Monocytes (%) (Auto) 9.0 Eosinophils (%) (Auto) 12.5 Basophils (%) (Auto) 0.8 Neutrophils # (Auto) 3.3 Lymphocytes # (Auto) 1.8 Monocytes # (Auto) 0.6 Eosinophils # (Auto) 0.8 Basophils # (Auto) 0.0 CBC Comment DIFF FINAL Differential Comment Blood Urea Nitrogen 32 Creatinine 5.84 Random Glucose 108 Total Protein 6.9 Albumin 2.7 Calcium Level 8.8 Alkaline Phosphatase 83 Aspartate Amino Transf (AST/SGOT) 14 Alanine Aminotransferase (ALT/SGPT) 12 Total Bilirubin 0.3 Sodium Level 136 Potassium Level 4.1 Chloride Level 100 Carbon Dioxide Level 29.3 Anion Gap 7 Estimat Glomerular Filtration Rate 10 (Milla Pack) Result Diagram: 02/20/1763902/20/17639 Assessment and Plan Problem List: (1) ESRD (end stage renal disease) on dialysis ICD Codes: N18.6 - End stage renal disease; Z99.2 - Dependence on renal dialysis Plan: Continue HD MWF Seen during HD today on a 2K, 350 BFR, minimal fluid removal He still makes urine, becomes symptomatic including hypotension with fluid removal Monitor electrolytes Avoid excess IVF On Renvela for metabolic bone disorder Will need AVF revision, will consult Dr. Pyle to evaluate next week. (2) Malnutrition ICD Codes: E46 - Malnutrition Status: Acute Plan: High protein diet, add supplements (3) Empyema lung ICD Codes: J86.9 - Pyothorax without fistula Plan: On meropenem Monitor the patient clinically (4) Anemia ICD Codes: D64.9 - Anemia Status: Chronic Plan: On Epogen with HD Also on Aranesp weekly May need venofer, on oral iron (Milla Pack) Assessment and Plan patient was seen and examined. Agree with above assessment and plan. Dialysis will be continued MWF. On Meropenem. Needs nutritional support. (Jim Zuluaga MD) Milla Pack Feb 20, 2017 10:41 Jim Zuluaga MD Feb 20, 2017 15:05
[2017-02-20] MEDS: ASCORBIC ACID 500 MG TAB PO SCH ×2 (12:00→17:00)
[2017-02-20] MEDS: FERROUS SULFATE 300 MG /5ML UDC PO SCH ×2 (12:00→17:00)
[2017-02-20] MEDS: HEPARIN SODIUM - IV 10,000 UNITS/10 ML VIAL PRN (13:20)
[2017-02-20] MEDS: SODIUM CHLOR 0.9% 1000 ML INJ 1,000 ML OTHER PRN (13:20)
[2017-02-20] MEDS: EPOETIN ALFA 10,000 UNITS/ML VIAL IV PUSH PRN (13:20)
[2017-02-20] MEDS: GENTAMICIN SULFATE (DIALYSIS USE ONLY) 20 MG/2 ML VIAL OTHER PRN (13:20)
[2017-02-20] MEDS: diphenhydrAMINE HCL 25 MG CAP PO PRN (14:36)
--- NOTE | 2017-02-20 15:11 | HHI.PR ---
Subjective Remarks Follow-up for multiple medical conditions assessment and plan Patient stated that he was treated as she has hospital for about 4 weeks and he was transfer from [facility] back to here since he was stable. He has no complaints. He denies any shortness of breathing or cough. Patient remains afebrile. discussed case with patient's nurse and she had no issues. Patient stated just came back from dialysis. Objective Vitals Vital Signs Date Time Temp Pulse Resp B/P (MAP) Pulse Ox O2 Delivery O2 Flow Rate FiO2 02/20/17 08:00 92 Room Air 02/20/17 08:00 98.0 80 18 106/68 (81) 92 02/20/17 06:33 93 Room Air 02/20/17 04:15 97.7 85 16 96/58 (71) 91 02/20/17 00:00 94 Room Air 02/19/17 23:00 98.2 77 16 117/69 (85) 91 02/19/17 22:55 97.8 75 16 122/71 (88) 92 I/O 02/19/17 02/19/17 02/19/17 02/20/17 02/20/17 02/20/17 07:00 15:00 23:00 07:00 15:00 23:00 Intake Total 240 ml Output Total 0 ml 500 ml Balance 240 ml -500 ml Intake Oral 240 ml Output Urine Total 0 ml Hemodialysis 500 ml # Bowel Movements 0 Result Diagram: 02/20/1740 02/20/17 0640 Objective Remarks GENERAL: in NAD CARDIOVASCULAR: Regular rate and rhythm without murmurs, gallops, or rubs. RESPIRATORY: Breath sounds equal bilaterally. No accessory muscle use. GASTROINTESTINAL: Abdomen soft, non-tender, nondistended. Medications and IVs Current Medications Sodium Chloride (NS Flush) 2 ml UNSCH PRN IV FLUSH FLUSH AFTER USING IV ACCESS ; Start 02/19/17 at 23:15 Sodium Chloride (NS Flush) 2 ml BID IV FLUSH Last administered on 02/20/17t 09 :53; Start 02/20/17 at 09:00 Acetaminophen (Tylenol) 650 mg Q4H PRN PO TEMP > 100.4; Start 02/19/17 at 23: 15 Naloxone HCl (Narcan Inj) 0.4 mg UNSCH PRN IV PUSH SEE LABEL COMMENTS; Start 02/19/17 at 23:15 Sennosides (Senokot) 17.2 mg Q12H PRN PO Moderate constipation; Start at 23:15 Bisacodyl (Dulcolax Supp) 10 mg DAILY PRN RECTAL SEVERE CONSITIPATION; Start 02/19/17 at 23:15 Lactulose (Lactulose Liq) 30 ml DAILY PRN PO SEVERE CONSITIPATION; Start 02/19 at 23:15 Carvedilol (Coreg) 25 mg BID PO Last administered on 02/20/17 03:27; Start 02/20/17 at 03:00 Cyclobenzaprine HCl (Flexeril) 5 mg TID PO ; Start 02/20/17 at 09:00; Stop at 09:00; Status DC Doxycycline Hyclate (Vibramycin) 100 mg BID PO Last administered on 02/20/17 09:47; Start 02/20/17 at 03:00 Folic Acid (Folate) 1 mg DAILY PO Last administered on 02/20/17 09:53; Start 02/20/17 at 09:00 Meropenem (Merrem Inj) 1,000 mg Q24H IV ; Start 02/20/17 at 04:00; Status Cancel Pantoprazole Sodium (Protonix) 40 mg HS PO ; Start 02/20/17 at 21:00 Sevelamer Carbonate (Renvela) 1,600 mg TIDAC PO Last administered on 14:35; Start 02/20/17 at 08:00 Tiotropium [place] (Spiriva Inh) 18 mcg BID INH Last administered on 09:48; Start 02/20/17 at 03:00 Meropenem 1000 mg/ Sodium Chloride 100 ml @ 200 mls/hr DAILY@0500 IV Last administered on 02/20/17 05:56; Start 02/20/17 at 05:00 Darbepoetin Joe (Aranesp Inj) 40 mcg Q7D SQ ; Start 02/20/17 at 09:00; Status Future hold Cholecalciferol (Vitamin D3) 2,000 units DAILY PO Last administered on 09:48; Start 02/20/17 at 09:00 Vitamin B Complex/ Vitamin C (Allbee C) 1 tab DAILY PO ; Start 02/20/17 at 09: 00; Stop 02/20/17 at 09:00; Status DC Ascorbic Acid (Vitamin C) 500 mg BID@1200,1700 PO ; Start 02/20/17 at 12:00 Non-Formulary Medication 1 cap DAILY PO ; Start 02/20/17 at 09:00; Status UNV Ferrous Sulfate (Ferrous Sulfate) 325 mg BID PO ; Start 02/20/17 at 09:00; Stop 02/20/17 at 09:00; Status DC Multivitamins (Theragran) 1 tab DAILY PO Last administered on 02/20/17 09:48 ; Start 02/20/17 at 09:00 Diphenhydramine HCl (Benadryl) 25 mg Q6H PRN PO pruritis Last administered on 02/20/17 14:36; Start 02/20/17 at 05:00 Albuterol Sulfate (Albuterol Neb) 2.5 mg Q2HR NEB PRN INH sob/wheezing; Start 02/20/17 at 05:00 Cyclobenzaprine HCl (Flexeril) 5 mg Q8H PRN PO muscle spasm; Start 02/20/17 at 05:00 Oxycodone/ Acetaminophen (Percocet 5-325 Mg) 1 tab Q4H PRN PO pain > 5; Start 02/20/17 at 05:00 Ferrous Sulfate (Ferrous Sulfate Liq) 300 mg DAILY@1200,1700 PO ; Start at 12:00 Sodium Chloride 1,000 ml @ 0 mls/hr Q0M PRN OTHER For Prime & Rinse Back Last administered on 02/20/17t 13:20; Start 02/20/17 at 09:11 Heparin Sodium (Porcine) (Heparin Inj) 8,000 units UNSCH PRN IV FLUSH WITH DIALYSIS; Start 02/20/17 at 09:15 Sodium Chloride 1,000 ml @ 200 mls/hr Q5H PRN IV WITH DIALYSIS; Start at 09:11 Sodium Chloride 1,000 ml @ 0 mls/hr Q0M PRN OTHER WITH DIALYSIS; Start at 09:11 Mannitol (Mannitol Inj) 12.5 gm UNSCH PRN IV WITH DIALYSIS; Start 02/20/17 at 09:15 Albumin Human 100 ml @ 60 mls/hr UNSCH PRN IV WITH DIALYSIS; Start 02/20/17 at 09:15 Sodium Chloride (NS Flush) 5 ml UNSCH PRN IV FLUSH WITH DIALYSIS; Start at 09:15 Heparin Sodium (Porcine) (Heparin Inj) UNSCH PRN .XX WITH DIALYSIS Last administered on 02/20/17 13:20; Start 02/20/17 at 09:15 Gentamicin Sulfate (Gentamicin (Dialysis) Inj) 20 mg UNSCH PRN OTHER WITH DIALYSIS Last administered on 02/20/17 13:20; Start 02/20/17 at 09:15 Ondansetron HCl (Zofran Inj) 4 mg UNSCH PRN IV PUSH WITH DIALYSIS; Start 02/20 at 09:15 Acetaminophen (Tylenol) 650 mg UNSCH PRN PO for headach, pain, temp > 101F; Start 02/20/17 at 09:15 Diphenhydramine HCl (Benadryl) 25 mg UNSCH PRN PO for hives/itching/anaphylaxis ; Start 02/20/17 at 09:15 Nitroglycerin (Nitrostat Sl) 0.4 mg UNSCH PRN SL CHEST PAIN; Start 02/20/17 at 09:15 Clonidine (Catapres) 0.1 mg UNSCH PRN PO for BP > 180/100 X 2 readings; Start 02/20/17 at 09:15 Epoetin Joe (Epogen Inj) 10,000 units UNSCH PRN IV PUSH WITH DIALYSIS Last administered on 02/20/17 13:20; Start 02/20/17 at 09:15 Gelatin (Gelfoam 12 Mm/7 Mm Top) 1 foam UNSCH PRN TOP SEE LABEL COMMENTS; Start 02/20/17 at 09:15 A/P Problem List: (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 Fonseca is a 56 year old male who has had a very long and complicated history of present illness. He has a known medical history of coronary artery disease status post CABG and chronic kidney disease who initially presented to the hospital on November 22, 2016 with sepsis, anemia, acute renal failure, and extensive right lung pneumonia with cavitation and underwent a right thoracotomy with VATS, lysis of adhesions, and decortication for pulmonary infiltrate in right lung and COPD on 12/30 but developed right chest tube related bronchopleural fistula. He was transferred to [facility] in [place] for further management of persistent leak/bronchopleural fistula. He was discharged on 01/22/2017. He returned following treatment at [facility] on 02/19. Bronchopleural fistula History of Right thoracotomy with VATS Empyema lung with MRSA - status post multiple bronchoscopies with endotracheal valves and gluing performed at [facility] - Keep f/u appointment with IR physician Dr. Lopez 03/05 - continue Meropenem for 4 - 6 weeks (started 01/26) unless otherwise advised by ID. patient also on doxycycline continue with doxycycline. - ID consulted, Pulmonology consulted -Will need to try to set up outpatient home health with IV infusion. Will consult case management. End-stage renal disease on hemodialysis - [employer] following. Patient had dialysis today. - Avoid nephrotoxins - Monitor electrolytes Anemia, iron deficiency vs CKD or combination -Continue with ferrous sulfate 300 mg liquid twice a day with vitamin C 500 mg twice a day administered at the same time. - continue Aranesp COPD - Albuterol nebulizer every 2 hours as needed for shortness of breath or wheezing - Continue Spiriva inhaler Malnutrition - Regular diet - Nepro one can 3 times a day between meals - Dietitian consulted to assist with nutritional support and nutritional recommendations DVT prophylaxis - Patient reports being ambulatory - Recommend SCDs teds while in bed Discharge Planning patient will need alf IV antibiotics. will need to consult case management. Kami Duckworth MD Feb 20, 2017 15:11
[2017-02-20 16:00] VITALS: BP 166/76; PULSE 92; RESP 18; TEMP 99.4; O2SAT 90
--- NOTE | 2017-02-20 16:37 | PD.ID.CON ---
History of Present Illness Service ID Consult Requested By DR Duckworth Reason for Consult MRSA empyema Primary Care Physician No Primary Care Physician Diagnoses: History of Present Illness pt is known to me from preious admission 56 yo male with ESRD/HD and BP fistula developped after VATS for bipsy of unresolving culture negaive PNA/pneumonitois of R lung He was transferred for treatment to [facility] and is sp bronchoscopy on 2016 with endobronchial valves and gluing. Bronchoscopy had to be repeated on 02/03/2017 for persistent air leak with endobronchial valves and gluing. A third bronchoscopy on 02/10/2017 for the persistent air leak but they were unable to see the air leak during the procedure and therefore no new valves are gluing were performed. He also had a CT-guided chest tube placed on 01/24/2017 for a right basilar fluid pocket and cultures were taken of the fluid. The cultures were positive for MRSA, MDRO pseudomonas, strep viridans, and bacteroides fragilis. He was started on meropenem and doxycyline on 01/26/2017, and according to records from [facility], he will need 4-6 weeks of meropenem IV antibiotic therapy. The patient has a follow-up with Dr. Lopez at [facility] on 03/05/[address] imaging. He still drains from his chest tubes, but drainage dramatically improved Review of Systems Constitutional: COMPLAINS OF: Fatigue, Weight loss Except as stated in HPI: all other systems reviewed are Neg Past Family Social History Allergies: Coded Allergies: No Known Allergies (Unverified Allergy, Unknown, 02/20/17) linezolid (Verified Adverse Reaction, Severe, 02/20/17) thrombocytopenia vancomycin (Verified Adverse Reaction, Intermediate, 02/20/17) red man's syndrome Past Medical History ESRD on hemodialysis Sepsis Anemia Acute renal failure Right lung pneumonia with cavitation Coronary artery disease status post CABG 3 Neck pain Myocardial infarction COPD Hypertension Asthma Gastric ulcers Osteoporosis Anxiety Past Surgical History Right thoracotomy with VATS, lysis of adhesions, and decortication for pulmonary infiltrate in right lung and COPD on 12/30 - Dr. Walton Multiple bronchoscopies CABG 3 Left arm AV shunt - failed Active Ordered Medications Medications where reviewed in EMR Antibiotics Include: doxycycline meropenem Family History reviewed; non contributory Social History Former smoker Unemployed Has brother that lives in the area full code Physical Exam Vital Signs Vital Signs Date Time Temp Pulse Resp B/P (MAP) Pulse Ox O2 Delivery O2 Flow Rate FiO2 02/20/17 08:00 92 Room Air 02/20/17 08:00 98.0 80 18 106/68 (81) 92 02/20/17 06:33 93 Room Air 02/20/17 04:15 97.7 85 16 96/58 (71) 91 02/20/17 00:00 94 Room Air 02/19/17 23:00 98.2 77 16 117/69 (85) 91 02/19/17 22:55 97.8 75 16 122/71 (88) 92 Physical Exam CONSTITUTIONAL/GENERAL: This is a thinm emaciated chroniclly ill appearing patient, in no apparent distress. TUBES/LINES/DRAINS: Permacath in place R chest SKIN: No jaundice, rashes, or lesions. . Skin temperature appropriate. Not diaphoretic. HEAD: Atraumatic. Normocephalic. EYES: Pupils equal and round and reactive. Extraocular motions intact. No scleral icterus. No injection or drainage. Fundi not examined. ENT: Hearing grossly normal. Nose without bleeding or purulent drainage. Throat without visible erythema, exudates, masses, or lesions. NECK: Trachea midline. Supple, nontender. CARDIOVASCULAR: Regular rate and rhythm without murmurs, gallops, or rubs. No JVD. Peripheral pulses symmetric. RESPIRATORY/CHEST: Symmetric, unlabored respirations. few R side rhonchi to auscultation. Decreased BS on R Breath sounds equal bilaterally. CT x2 R side with moderate drainage of odorles greenish pusi. GASTROINTESTINAL: Abdomen soft, non-tender, nondistended. No hepato-splenomegaly , or palpable masses. No guarding. Bowel sounds present. GENITOURINARY: Without palpable bladder distension. MUSCULOSKELETAL: Extremities without clubbing, cyanosis, or edema. No joint tenderness or effusion noted. No calf tenderness. No mottling or clubbing. LYMPHATICS: No palpable cervical or supraclavicular adenopathy. NEUROLOGICAL: Awake and alert. Motor and sensory grossly within normal limits. Follows commands. Clear speecj. Moves all extremities. PSYCHIATRIC: flat affect; irritable Laboratory Laboratory Tests Test 02/20/17 06:40 White Blood Count 6.5 Red Blood Count 2.39 Hemoglobin 7.3 Hematocrit 21.9 Mean Corpuscular Volume 91.9 Mean Corpuscular Hemoglobin 30.7 Mean Corpuscular Hemoglobin Concent 33.4 Red Cell Distribution Width 18.9 Platelet Count 202 Mean Platelet Volume 8.0 Neutrophils (%) (Auto) 49.8 Lymphocytes (%) (Auto) 27.9 Monocytes (%) (Auto) 9.0 Eosinophils (%) (Auto) 12.5 Basophils (%) (Auto) 0.8 Neutrophils # (Auto) 3.3 Lymphocytes # (Auto) 1.8 Monocytes # (Auto) 0.6 Eosinophils # (Auto) 0.8 Basophils # (Auto) 0.0 CBC Comment DIFF FINAL Differential Comment Blood Urea Nitrogen 32 Creatinine 5.84 Random Glucose 108 Total Protein 6.9 Albumin 2.7 Calcium Level 8.8 Alkaline Phosphatase 83 Aspartate Amino Transf (AST/SGOT) 14 Alanine Aminotransferase (ALT/SGPT) 12 Total Bilirubin 0.3 Sodium Level 136 Potassium Level 4.1 Chloride Level 100 Carbon Dioxide Level 29.3 Anion Gap 7 Estimat Glomerular Filtration Rate 10 Result Diagram: 02/20/17 0640 02/20/1740 Assessment and Plan Assessment and Plan BP fistula and polimicrobial empyema : PSAE , MRSA, strep and Sean frag sp CT drainage and endobronchial valve placement ESRD/HD Allergic to vancomycin cont meropenem and doxycyline monitor clinically and radeiologically Discussed Condition With Dr Katie AHMADI brother @ b/s Paz Fontanez MD Feb 20, 2017 16:37
[2017-02-20 17:30] VITALS: O2SAT 92
[2017-02-20 20:00] VITALS: BP 107/68; PULSE 90; RESP 20; TEMP 99.4; O2SAT 87
[2017-02-20] MEDS: RESP: ALBUTEROL 2.5 MG/IPRATROPIUM 0.5 MG NEB (SCH) NEB (21:46)
[2017-02-20] MEDS: PANTOPRAZOLE SOD 40 MG DELAYED RELEASE TAB PO SCH (21:52)
[2017-02-21] VITALS (8 sets, daily range): BP systolic 109–138; BP diastolic 58–83; PULSE 84–96; RESP 16–20; TEMP 97.6–99.2; O2SAT 92–98
[2017-02-21] MEDS: MEROPENEM 1000 MG/NS 100 ML IV SCH ×2 (05:53)
--- NOTE | 2017-02-21 06:18 | RADRPT ---
EXAM DATE/TIME: 02/21/2017 04:13 [place] COMPARISON: CT THORAX W/O CONTRAST, January 19, 2017, 22:21. CHEST SINGLE AP, January 19, 2017, 5:25. INDICATIONS : Infiltrate. MEDICAL HISTORY : Chronic obstructive pulmonary disease. Cardiovascular disease. Hypertension. SURGICAL HISTORY : CABG. ENCOUNTER: Subsequent ACUITY: 2 weeks PAIN SCORE: Non-responsive. LOCATION: Bilateral chest FINDINGS: Stable consolidation in the right upper lung with associated pleural thickening and cystic areas. Ch est drainage tube is projected at the right lung base. No evidence of pneumothorax. Double-lumen ce ntral line stable in position. Left PICC line catheter tip projects over the distal superior vena ca va. Left lung is clear. The heart is normal in size. CONCLUSION: Stable right upper lung consolidation. No pneumothorax seen. Mustapha Wright MD on February 21, 2017 at 6:13 Board Certified Radiologist. This report was verified electronically.
[2017-02-21] MEDS: SEVELAMER CARBONATE 800 MG TAB PO SCH ×4 (08:00→18:01)
[2017-02-21] MEDS: RESP: ALBUTEROL 2.5 MG/IPRATROPIUM 0.5 MG NEB (SCH) NEB ×4 (08:33→19:32)
[2017-02-21] MEDS: MULTIVITAMIN TAB PO SCH (09:00)
[2017-02-21] MEDS ORDERED: DARBEPOETIN ALFA/POLYSORBATE 40 MCG/ML VIAL SQ SCH (09:00)
[2017-02-21] MEDS: CARVEDILOL 12.5 MG TAB PO SCH ×2 (09:00→20:34)
[2017-02-21] MEDS: DOXYCYCLINE HYCLATE 100 MG CAP PO SCH ×2 (09:00→20:34)
[2017-02-21] MEDS: TIOTROPIUM BROMIDE 18 MCG INH INH SCH ×2 (09:01→20:36)
[2017-02-21] MEDS: SODIUM CHLORIDE 0.9% FLUSH 10 ML FLUSH IV FLUSH SCH ×2 (09:01→20:34)
[2017-02-21] MEDS: FOLIC ACID 1 MG TAB PO SCH (09:01)
[2017-02-21] MEDS: CHOLECALCIFEROL (VIT D3) 1000 UNIT TAB PO SCH (09:01)
[2017-02-21] MEDS: ASCORBIC ACID 500 MG TAB PO SCH ×2 (13:28→18:01)
[2017-02-21] MEDS: FERROUS SULFATE 300 MG /5ML UDC PO SCH ×2 (13:28→18:01)
--- NOTE | 2017-02-21 14:23 | MB ---
cc: MAE BECKER DATE OF CONSULTATION: 04/13/2016 REASON FOR CONSULTATION: Chronic obstructive pulmonary disease Bronchopleural fissula. HISTORY OF PRESENT ILLNESS This is 56 year old white male with history of chronic obstructive pulmonary disease, coronary artery disease, and status post coronary artery bypass graft and end stage renal disease on dialysis. Patient had undergone right thoracotomy and VATs biopsy of right upper lobe infiltrate on 12/30. The patient had extensive fibrotic lung with bronchiectasis of the right upper lobe and postoperatively developed a persistent air leak with a bronchopleural fistula. He was then transferred to [facility] in [place] for the bronchopleural fistula and placement of endobronchial valves. He had a bronchoscopy and endobronchial valve placement on 01/30 and this was repeated on 02/03 with placement of new endobronchial VATS with lowering. Subsequently the patient had to be taken in and again on 02/10 for persistent air leak, but after that the patients air leak had improved and the patient also has had CT guided chest tube inserted at [facility] for basilar effusions. He then was transferred back to [facility] for further management. His cultures from the chest tubes were positive for Methicillin-resistant Staphylococcus aureus, Pseudomonas and staph viridans. He has been on meropenem and to doxycycline and presently receiving dialysis every other day. He is on oxygen at 3.5 liters, complains of pain along the right chest wall and some shortness of breath with no fevers or chills. PAST MEDICAL HISTORY: The past history includes history of with sepsis and pneumonia history of chronic kidney disease and history of coronary artery bypass grafting. He has had previous myocardial infarct hypertension, history of asthma and osteoporosis and peptic ulcers. He has a left AV shunt for dialysis. MEDICATIONS: Med list was reviewed from the chart. HABITS The patient has a history of smoking for about 25 years. No significant alcohol. FAMILY HISTORY: NONCONTRIBUTORY. ALLERGIES NONE. REVIEW OF SYSTEMS The patient has lost weight. He has weakness, dizziness, epigastric distress, nausea. She has joint pains and leg swelling and denies skin lesions or blackout spells. PHYSICAL EXAMINATION IN GENERAL: This is a middle-aged thinly built white male who is pale and mildly dyspneic at rest. VITAL SIGNS: Blood pressure 110/60, pulse is 80, respirations 24, temperature 97.5. HEAD, EYES, EARS, NOSE, AND THROAT: Head normocephalic. Pupils reactive. Tongue is moist. Throat was clear. Nasal mucosa injected. NECK: Supple. No bruits or thyroid enlargement. CHEST: Decreased breath sounds over the right chest with occasional wheezes in the right upper lung june. HEART: The heart sounds are regular S1-S2. No murmur. ABDOMEN: The abdomen is soft, protuberant without masses or organomegaly or tenderness. Bowel sounds are active. EXTREMITIES: Mild varicosities and no edema. Peripheral pulses are diminished. NEUROLOGIC: Reflexes are 1+ with no gross motor deficits. Cranial nerves grossly intact. SKIN: No lesions noted. IMPRESSION 1. Right bronchopleural fistula. 2. Empyema right chest. 3. Persistent air leak with history of pneumothorax. 4. COPD, chronic bronchitis or bronchiectasis. 5. End-stage renal disease on dialysis. PLAN The patient will be continued on antibiotic therapy per infectious disease service. Nebulized DuoNeb solution added q.i.d. and we will place him on O2 at 3 liters nasal cannula. Incentive spirometry at the bedside every 2 hours was suggested we will also get a follow up chest x-ray in a.m. culture from the chest tube drainage to be done today and if the leak resolves the chest tube will be discontinued. Hopefully over the next 1 week. Thank you for this consultation. MD MARJORIE Estrada/ilya /12:48 PM /2:15 PM
--- NOTE | 2017-02-21 14:37 | HHI.PR ---
Subjective Remarks Follow-up for bronchial fistula/empyema Patient is a last night ED status so he was put on oxygen. He denies any shortness of breathing or cough. He has no other complaints. He remains afebrile. Patient stated that he has been off of oxygen for 3 days while he was at [facility]. At the moment he stated he does not feel short of breath at all. He remains afebrile. Objective Vitals Vital Signs Date Time Temp Pulse Resp B/P (MAP) Pulse Ox O2 Delivery O2 Flow Rate FiO2 02/21/17 12:00 98.1 95 18 117/70 (86) 94 02/21/17 09:00 97.9 84 16 131/83 (99) 95 02/21/17 08:35 98 Nasal Cannula 2.00 02/21/17 04:00 99.2 96 18 132/58 (82) 96 02/21/17 00:00 98.4 94 20 119/73 (88) 94 02/20/17 20:00 Nasal Cannula 2.00 02/20/17 20:00 99.4 90 20 107/68 (81) 87 02/20/17 18:07 92 Room Air 02/20/17 17:30 92 Nasal Cannula 2.00 02/20/17 16:00 99.4 92 18 166/76 (106) 90 I/O 02/20/17 02/20/17 02/20/17 02/21/17 02/21/17 02/21/17 07:00 15:00 23:00 07:00 15:00 23:00 Intake Total 240 ml 480 ml 220 ml Output Total 0 ml 500 ml 300 ml Balance 240 ml -500 ml 480 ml -80 ml Intake Oral 240 ml 480 ml 120 ml IV Total 100 ml Output Urine Total 0 ml 300 ml Hemodialysis 500 ml # Bowel Movements 0 1 Result Diagram: 02/20/17 0640 02/20/17 0640 Objective Remarks GENERAL: in NAD CARDIOVASCULAR: Regular rate and rhythm without murmurs, gallops, or rubs. RESPIRATORY: Breath sounds equal bilaterally. No accessory muscle use. GASTROINTESTINAL: Abdomen soft, non-tender, nondistended. Medications and IVs Current Medications Sodium Chloride (NS Flush) 2 ml UNSCH PRN IV FLUSH FLUSH AFTER USING IV ACCESS ; Start 02/19/17 at 23:15 Sodium Chloride (NS Flush) 2 ml BID IV FLUSH Last administered on 02/21/17 09 :01; Start 02/20/17 at 09:00 Acetaminophen (Tylenol) 650 mg Q4H PRN PO TEMP > 100.4; Start 02/19/17 at 23: 15 Naloxone HCl (Narcan Inj) 0.4 mg UNSCH PRN IV PUSH SEE LABEL COMMENTS; Start 02/19/17 at 23:15 Sennosides (Senokot) 17.2 mg Q12H PRN PO Moderate constipation; Start at 23:15 Bisacodyl (Dulcolax Supp) 10 mg DAILY PRN RECTAL SEVERE CONSITIPATION; Start 02/19/17 at 23:15 Lactulose (Lactulose Liq) 30 ml DAILY PRN PO SEVERE CONSITIPATION; Start 02/19 at 23:15 Carvedilol (Coreg) 25 mg BID PO Last administered on 02/21/17 09:00; Start 02/20/17 at 03:00 Cyclobenzaprine HCl (Flexeril) 5 mg TID PO ; Start 02/20/17 at 09:00; Stop at 09:00; Status DC Doxycycline Hyclate (Vibramycin) 100 mg BID PO Last administered on 02/21/17 09:00; Start 02/20/17 at 03:00 Folic Acid (Folate) 1 mg DAILY PO Last administered on 02/21/17 09:01; Start 02/20/17 at 09:00 Meropenem (Merrem Inj) 1,000 mg Q24H IV ; Start 02/20/17 at 04:00; Status Cancel Pantoprazole Sodium (Protonix) 40 mg HS PO Last administered on 02/20/17 21: 52; Start 02/20/17 at 21:00 Sevelamer Carbonate (Renvela) 1,600 mg TIDAC PO Last administered on 13:28; Start 02/20/17 at 08:00 Tiotropium [place] (Spiriva Inh) 18 mcg BID INH Last administered on 09:01; Start 02/20/17 at 03:00 Meropenem 1000 mg/ Sodium Chloride 100 ml @ 200 mls/hr DAILY@0500 IV Last administered on 02/21/17 05:53; Start 02/20/17 at 05:00 Darbepoetin Joe (Aranesp Inj) 40 mcg Q7D SQ ; Start 02/20/17 at 09:00; Stop 02/20/17 at 21:09; Status DC Cholecalciferol (Vitamin D3) 2,000 units DAILY PO Last administered on 09:01; Start 02/20/17 at 09:00 Vitamin B Complex/ Vitamin C (Allbee C) 1 tab DAILY PO ; Start 02/20/17 at 09: 00; Stop 02/20/17 at 09:00; Status DC Ascorbic Acid (Vitamin C) 500 mg BID@1200,1700 PO Last administered on 13:28; Start 02/20/17 at 12:00 Non-Formulary Medication 1 cap DAILY PO ; Start 02/20/17 at 09:00; Status UNV Ferrous Sulfate (Ferrous Sulfate) 325 mg BID PO ; Start 02/20/17 at 09:00; Stop 02/20/17 at 09:00; Status DC Multivitamins (Theragran) 1 tab DAILY PO Last administered on 02/21/17 09:00 ; Start 02/20/17 at 09:00 Diphenhydramine HCl (Benadryl) 25 mg Q6H PRN PO pruritis Last administered on 02/20/17 14:36; Start 02/20/17 at 05:00 Albuterol Sulfate (Albuterol Neb) 2.5 mg Q2HR NEB PRN INH sob/wheezing; Start 02/20/17 at 05:00 Cyclobenzaprine HCl (Flexeril) 5 mg Q8H PRN PO muscle spasm; Start 02/20/17 at 05:00 Oxycodone/ Acetaminophen (Percocet 5-325 Mg) 1 tab Q4H PRN PO pain > 5; Start 02/20/17 at 05:00 Ferrous Sulfate (Ferrous Sulfate Liq) 300 mg DAILY@1200,1700 PO Last administered on 02/21/17 13:28; Start 02/20/17 at 12:00 Sodium Chloride 1,000 ml @ 0 mls/hr Q0M PRN OTHER For Prime & Rinse Back Last administered on 02/20/17 13:20; Start 02/20/17 at 09:11 Heparin Sodium (Porcine) (Heparin Inj) 8,000 units UNSCH PRN IV FLUSH WITH DIALYSIS; Start 02/20/17 at 09:15 Sodium Chloride 1,000 ml @ 200 mls/hr Q5H PRN IV WITH DIALYSIS; Start at 09:11 Sodium Chloride 1,000 ml @ 0 mls/hr Q0M PRN OTHER WITH DIALYSIS; Start at 09:11 Mannitol (Mannitol Inj) 12.5 gm UNSCH PRN IV WITH DIALYSIS; Start 02/20/17 at 09:15 Albumin Human 100 ml @ 60 mls/hr UNSCH PRN IV WITH DIALYSIS; Start 02/20/17 at 09:15 Sodium Chloride (NS Flush) 5 ml UNSCH PRN IV FLUSH WITH DIALYSIS; Start at 09:15 Heparin Sodium (Porcine) (Heparin Inj) UNSCH PRN .XX WITH DIALYSIS Last administered on 02/20/17 13:20; Start 02/20/17 at 09:15 Gentamicin Sulfate (Gentamicin (Dialysis) Inj) 20 mg UNSCH PRN OTHER WITH DIALYSIS Last administered on 02/20/17 13:20; Start 02/20/17 at 09:15 Ondansetron HCl (Zofran Inj) 4 mg UNSCH PRN IV PUSH WITH DIALYSIS; Start 02/20 at 09:15 Acetaminophen (Tylenol) 650 mg UNSCH PRN PO for headach, pain, temp > 101F; Start 02/20/17 at 09:15 Diphenhydramine HCl (Benadryl) 25 mg UNSCH PRN PO for hives/itching/anaphylaxis ; Start 02/20/17 at 09:15 Nitroglycerin (Nitrostat Sl) 0.4 mg UNSCH PRN SL CHEST PAIN; Start 02/20/17 at 09:15 Clonidine (Catapres) 0.1 mg UNSCH PRN PO for BP > 180/100 X 2 readings; Start 02/20/17 at 09:15 Epoetin Joe (Epogen Inj) 10,000 units UNSCH PRN IV PUSH WITH DIALYSIS Last administered on 02/20/17t 13:20; Start 02/20/17 at 09:15 Gelatin (Gelfoam 12 Mm/7 Mm Top) 1 foam UNSCH PRN TOP SEE LABEL COMMENTS; Start 02/20/17 at 09:15 Albuterol/ Ipratropium (Duoneb Neb) 1 ampule QID NEB NEB Last administered on 02/21/17t 11:36; Start 02/20/17 at 20:00 Darbepoetin Joe (Aranesp Inj) 40 mcg Q7D SQ ; Start 02/21/17 at 09:00; Stop 02/21/17 at 09:00; Status DC A/P Problem List: (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 Fonseca is a 56 year old male who has had a very long and complicated history of present illness. He has a known medical history of coronary artery disease status post CABG and chronic kidney disease who initially presented to the hospital on November 22, 2016 with sepsis, anemia, acute renal failure, and extensive right lung pneumonia with cavitation and underwent a right thoracotomy with VATS, lysis of adhesions, and decortication for pulmonary infiltrate in right lung and COPD on 12/30 but developed right chest tube related bronchopleural fistula. He was transferred to [facility] in [place] for further management of persistent leak/bronchopleural fistula. He was discharged on 01/22/2017. He returned following treatment at [facility] on 02/19. Bronchopleural fistula History of Right thoracotomy with VATS Empyema lung with MRSA - status post multiple bronchoscopies with endotracheal valves and gluing performed at [facility] - Keep f/u appointment with IR physician Dr. Lopez 03/05 - continue Meropenem for 4 - 6 weeks (started 01/26) unless otherwise advised by ID. patient also on doxycycline continue with doxycycline. - ID consulted, Pulmonology consulted -Will need to try to set up outpatient home health with IV infusion. Will consult case management. Chronic hypoxia -Most likely secondary to bronchial pleural fistula and pneumonia. -Clinically patient is doing well. His chest x-ray is stable. He seems to require oxygen intermittently. -Continue to monitor and supplement oxygen as needed. End-stage renal disease on hemodialysis - Centrifugal Drier Operator following. He is getting hemodialysis. - Avoid nephrotoxins - Monitor electrolytes Anemia, iron deficiency vs CKD or combination -Continue with ferrous sulfate 300 mg liquid twice a day with vitamin C 500 mg twice a day administered at the same time. - continue Aranesp COPD - Albuterol nebulizer every 2 hours as needed for shortness of breath or wheezing - Continue Spiriva inhaler Malnutrition - Regular diet - Nepro one can 3 times a day between meals DVT prophylaxis - Patient reports being ambulatory - Recommend SCDs teds while in bed Discharge Planning patient will need adjunct faculty for medical terminology IV antibiotics. He is self paid. Case management aware already consulted. Kami Duckworth MD Feb 21, 2017 14:37
--- NOTE | 2017-02-21 15:32 | HHI.NPPN ---
Subjective Additional Remarks No acute complaints, resting in bed. Objective Data Data Vital Signs Date Time Temp Pulse Resp B/P (MAP) Pulse Ox O2 Delivery O2 Flow Rate FiO2 02/21/17 12:00 98.1 95 18 117/70 (86) 94 02/21/17 09:00 97.9 84 16 131/83 (99) 95 02/21/17 08:35 98 Nasal Cannula 2.00 02/21/17 04:00 99.2 96 18 132/58 (82) 96 02/21/17 00:00 98.4 94 20 119/73 (88) 94 02/20/17 20:00 Nasal Cannula 2.00 02/20/17 20:00 99.4 90 20 107/68 (81) 87 02/20/17 18:07 92 Room Air 02/20/17 17:30 92 Nasal Cannula 2.00 02/20/17 16:00 99.4 92 18 166/76 (106) 90 -: 02/20/17 0640 02/20/17 0640 Physical Exam General Appearance: Well Developed, Well Nourished, No Acute Distress Eyes Eye Exam: Pupils Equal Throat Throat Exam: Oral Mucosa [place] & Moist Neck Neck Exam: Neck Supple Pulmonary Resp Exam: Decreased Bases Cardiology CV Exam: Regular Gastrointestinal/Abdomen GI Exam: Soft, Non-Tender, Bowel Sounds Present Integumentary Skin Exam: Dry, Intact Extremeties Extremities Exam: No Edema Neurologic Neuro Exam: Alert, Awake, Oriented, Speech Clear Assessment/Plan Problem List: (1) ESRD (end stage renal disease) on dialysis ICD Codes: N18.6 - End stage renal disease; Z99.2 - Dependence on renal dialysis Plan: Continue HD MWF Tolerated HD yesterday. He still makes urine, becomes symptomatic including hypotension with fluid removal Monitor electrolytes Avoid excess IVF On Renvela for metabolic bone disorder Will need AVF revision, will consult Dr. Pyle to evaluate next week. On holiday schedule this week with dialysis - HD tomorrow, then Thursday and Thursday. (2) Malnutrition ICD Codes: E46 - Malnutrition Status: Acute Plan: High protein diet, add supplements (3) Empyema lung ICD Codes: J86.9 - Pyothorax without fistula Plan: On meropenem Monitor the patient clinically (4) Anemia ICD Codes: D64.9 - Anemia Status: Chronic Plan: On Epogen with HD Also on Aranesp weekly May need venofer, on oral iron Will check iron panel Andrea Dallas MD Feb 21, 2017 15:32
[2017-02-21] MEDS: PANTOPRAZOLE SOD 40 MG DELAYED RELEASE TAB PO SCH (20:34)
[2017-02-22] VITALS (8 sets, daily range): BP systolic 122–177; BP diastolic 80–90; PULSE 85–91; RESP 18–20; TEMP 97.8–99.1; O2SAT 92–99
[2017-02-22] MEDS: MEROPENEM 1000 MG/NS 100 ML IV SCH ×2 (04:56)
[2017-02-22 05:02] LABS: AUTOMATED NEUTROPHIL # 3.4 TH/MM3 (1.8-7.7); BASOPHIL % 0.7 % (0.0-2.0); EOSINOPHIL # 0.7 TH/MM3 (0-0.4); EOSINOPHIL % 12.1 % (0.0-4.0); LYMPH % 22.4 % (9.0-44.0); LYMPHOCYTE # 1.4 TH/MM3 (1.0-4.8); MEAN CELL VOLUME 92.4 FL (80.0-100.0); MEAN CORPUSCULAR HEMOGLOBIN 30.7 PG (27.0-34.0); MEAN CORPUSCULAR HGB CONC 33.2 % (32.0-36.0); MONO % 8.8 % (0.0-8.0); PLATELET COUNT 204 TH/MM3 (150-450); RED BLOOD COUNT 2.16 MIL/MM3 (4.50-5.90); RED CELL DISTRIBUTION WIDTH 19.8 % (11.6-17.2); WHITE BLOOD COUNT 6.1 TH/MM3 (4.0-11.0)
[2017-02-22 05:19] LABS: ANION GAP 8 MEQ/L (5-15); BICARBONATE 30.4 MEQ/L (21.0-32.0); BLOOD UREA NITROGEN 42 MG/DL (7-18); CHLORIDE 101 MEQ/L (98-107); GLOMERULAR FILTRATION RATE 9 ML/MIN (>89); POTASSIUM 4.2 MEQ/L (3.5-5.1); SODIUM (NA) 139 MEQ/L (136-145)
[2017-02-22 05:20] LABS: TRANSFERRIN IRON PROFILE 109 MG/DL (200-360)
[2017-02-22 05:38] LABS: HEMO FLAGS DIFF FINAL
[2017-02-22] MEDS ORDERED: FUROSEMIDE 20 MG/2 ML VIAL IV PUSH ONE (06:00)
[2017-02-22] MEDS ORDERED: SODIUM CHLOR 0.9% 250 ML INJ 250 ML IV ONE (06:00)
[2017-02-22] MEDS: RESP: ALBUTEROL 2.5 MG/IPRATROPIUM 0.5 MG NEB (SCH) NEB ×4 (08:35→21:13)
[2017-02-22] MEDS: FOLIC ACID 1 MG TAB PO SCH (09:32)
[2017-02-22] MEDS: MULTIVITAMIN TAB PO SCH (09:32)
[2017-02-22] MEDS: SEVELAMER CARBONATE 800 MG TAB PO SCH ×3 (09:32→17:00)
[2017-02-22] MEDS: DOXYCYCLINE HYCLATE 100 MG CAP PO SCH ×2 (09:33→20:11)
[2017-02-22] MEDS: SODIUM CHLORIDE 0.9% FLUSH 10 ML FLUSH IV FLUSH SCH ×2 (09:34→20:12)
[2017-02-22] MEDS: CHOLECALCIFEROL (VIT D3) 1000 UNIT TAB PO SCH (09:38)
[2017-02-22] MEDS: CARVEDILOL 12.5 MG TAB PO SCH ×2 (09:38→20:11)
[2017-02-22] MEDS: TIOTROPIUM BROMIDE 18 MCG INH INH SCH ×2 (09:39→20:13)
--- NOTE | 2017-02-22 11:13 | HHI.NPPN ---
Subjective Additional Remarks No acute complaints, seen on HD today Objective Data Data 02/22/17 02/23/17 19:00 07:00 Output Total 250 ml Balance -250 ml Output Urine Total 250 ml Vital Signs Date Time Temp Pulse Resp B/P (MAP) Pulse Ox O2 Delivery O2 Flow Rate FiO2 02/22/17 08:35 94 Nasal Cannula 2.00 02/22/17 08:00 98.7 90 18 158/88 (111) 96 02/22/17 05:00 97.8 86 20 122/81 (95) 92 02/22/17 04:00 Nasal Cannula 2.00 02/21/17 20:00 97.6 89 18 138/80 (99) 95 02/21/17 20:00 Nasal Cannula 2.00 02/21/17 19:32 97 Nasal Cannula 2.00 02/21/17 16:00 98.6 85 18 109/65 (80) 92 02/21/17 12:00 98.1 95 18 117/70 (86) 94 -: 02/22/17 0430 02/22/17 0430 Physical Exam General Appearance: Well Developed, Well Nourished, No Acute Distress Eyes Eye Exam: Pupils Equal Throat Throat Exam: Oral Mucosa [place] & Moist Neck Neck Exam: Neck Supple Pulmonary Resp Exam: Decreased Bases Cardiology CV Exam: Regular Gastrointestinal/Abdomen GI Exam: Soft, Non-Tender, Bowel Sounds Present Integumentary Skin Exam: Dry, Intact Extremeties Extremities Exam: No Edema Neurologic Neuro Exam: Alert, Awake, Oriented, Speech Clear Assessment/Plan Problem List: (1) ESRD (end stage renal disease) on dialysis ICD Codes: N18.6 - End stage renal disease; Z99.2 - Dependence on renal dialysis Plan: Continue HD MWF He still makes urine, becomes symptomatic including hypotension with fluid removal Monitor electrolytes Avoid excess IVF On Renvela for metabolic bone disorder Will need AVF revision, will consult Dr. Pyle to evaluate next week. On holiday schedule this week with dialysis - Seen on HD today and tolerating HD well. Plan next HD Thursday, then Thursday. (2) Malnutrition ICD Codes: E46 - Malnutrition Status: Acute Plan: High protein diet, add supplements (3) Empyema lung ICD Codes: J86.9 - Pyothorax without fistula Plan: On meropenem Monitor the patient clinically (4) Anemia ICD Codes: D64.9 - Anemia Status: Chronic Plan: On Epogen with HD Also on Aranesp weekly Hgb dropped to 6.6 today - 2U PRBCs with HD today. Andrea Dallas MD Feb 22, 2017 11:13
[2017-02-22] MEDS: SODIUM CHLOR 0.9% 1000 ML INJ 1,000 ML OTHER PRN (13:00)
[2017-02-22] MEDS: EPOETIN ALFA 10,000 UNITS/ML VIAL IV PUSH PRN (13:00)
[2017-02-22] MEDS: GENTAMICIN SULFATE (DIALYSIS USE ONLY) 20 MG/2 ML VIAL OTHER PRN (13:00)
[2017-02-22] MEDS: HEPARIN SODIUM - IV 10,000 UNITS/10 ML VIAL PRN (13:00)
--- NOTE | 2017-02-22 14:08 | HHI.PR ---
Subjective Remarks Follow-up for bronchial fistular/infection Patient complaining of shortness of breathing with exertion. He stated that he knows that he does not look like he is out of breath but with exertion he is out of breath. Denies any cough or congestion. Denies any chest pain, palpitation, lightheadedness or dizziness. Oxygen saturation and liters of oxygen needed has been stable. Patient seen in dialysis at the bedside. Dialysis nurse present. Objective Vitals Vital Signs Date Time Temp Pulse Resp B/P (MAP) Pulse Ox O2 Delivery O2 Flow Rate FiO2 02/22/17 12:28 97.9 20 155/84 02/22/17 12:21 98.0 89 18 177/80 02/22/17 08:35 94 Nasal Cannula 2.00 02/22/17 08:00 98.7 90 18 158/88 (111) 96 02/22/17 05:00 97.8 86 20 122/81 (95) 92 02/22/17 04:00 Nasal Cannula 2.00 02/21/17 20:00 97.6 89 18 138/80 (99) 95 02/21/17 20:00 Nasal Cannula 2.00 02/21/17 19:32 97 Nasal Cannula 2.00 02/21/17 16:00 98.6 85 18 109/65 (80) 92 I/O 02/21/17 02/21/17 02/21/17 02/22/17 02/22/17 02/22/17 07:00 15:00 23:00 07:00 15:00 23:00 Intake Total 220 ml 720 ml 662 ml 800 ml Output Total 300 ml 250 ml 825 ml 750 ml Balance -80 ml -250 ml 720 ml -163 ml 50 ml Intake Oral 120 ml 720 ml 662 ml IV Total 100 ml Packed Cells 800 ml Output Urine Total 300 ml 250 ml 825 ml 250 ml Hemodialysis 500 ml # Voids 0 # Bowel Movements 1 0 Result Diagram: 02/22/1742902/22/17429 Objective Remarks GENERAL: in NAD CARDIOVASCULAR: Regular rate and rhythm without murmurs, gallops, or rubs. RESPIRATORY: Breath sounds equal bilaterally. No accessory muscle use. GASTROINTESTINAL: Abdomen soft, non-tender, nondistended. EXT: neg edema Medications and IVs Current Medications Sodium Chloride (NS Flush) 2 ml UNSCH PRN IV FLUSH FLUSH AFTER USING IV ACCESS ; Start 02/19/17 at 23:15 Sodium Chloride (NS Flush) 2 ml BID IV FLUSH Last administered on 02/22/17 09 :34; Start 02/20/17 at 09:00 Acetaminophen (Tylenol) 650 mg Q4H PRN PO TEMP > 100.4; Start 02/19/17 at 23: 15 Naloxone HCl (Narcan Inj) 0.4 mg UNSCH PRN IV PUSH SEE LABEL COMMENTS; Start 02/19/17 at 23:15 Sennosides (Senokot) 17.2 mg Q12H PRN PO Moderate constipation; Start at 23:15 Bisacodyl (Dulcolax Supp) 10 mg DAILY PRN RECTAL SEVERE CONSITIPATION; Start 02/19/17 at 23:15 Lactulose (Lactulose Liq) 30 ml DAILY PRN PO SEVERE CONSITIPATION; Start 02/19 at 23:15 Carvedilol (Coreg) 25 mg BID PO Last administered on 02/22/17 09:38; Start 02/20/17 at 03:00 Cyclobenzaprine HCl (Flexeril) 5 mg TID PO ; Start 02/20/17 at 09:00; Stop at 09:00; Status DC Doxycycline Hyclate (Vibramycin) 100 mg BID PO Last administered on 02/22/17 09:33; Start 02/20/17 at 03:00 Folic Acid (Folate) 1 mg DAILY PO Last administered on 02/22/17 09:32; Start 02/20/17 at 09:00 Meropenem (Merrem Inj) 1,000 mg Q24H IV ; Start 02/20/17 at 04:00; Status Cancel Pantoprazole Sodium (Protonix) 40 mg HS PO Last administered on 02/21/17 20: 34; Start 02/20/17 at 21:00 Sevelamer Carbonate (Renvela) 1,600 mg TIDAC PO Last administered on 09:32; Start 02/20/17 at 08:00 Tiotropium [place] (Spiriva Inh) 18 mcg BID INH Last administered on 09:39; Start 02/20/17 at 03:00 Meropenem 1000 mg/ Sodium Chloride 100 ml @ 200 mls/hr DAILY@0500 IV Last administered on 02/22/17 04:56; Start 02/20/17 at 05:00 Darbepoetin Joe (Aranesp Inj) 40 mcg Q7D SQ ; Start 02/20/17 at 09:00; Stop 02/20/17 at 21:09; Status DC Cholecalciferol (Vitamin D3) 2,000 units DAILY PO Last administered on 09:38; Start 02/20/17 at 09:00 Vitamin B Complex/ Vitamin C (Allbee C) 1 tab DAILY PO ; Start 02/20/17 at 09: 00; Stop 02/20/17 at 09:00; Status DC Ascorbic Acid (Vitamin C) 500 mg BID@1200,1700 PO Last administered on 18:01; Start 02/20/17 at 12:00 Non-Formulary Medication 1 cap DAILY PO ; Start 02/20/17 at 09:00; Status UNV Ferrous Sulfate (Ferrous Sulfate) 325 mg BID PO ; Start 02/20/17 at 09:00; Stop 02/20/17 at 09:00; Status DC Multivitamins (Theragran) 1 tab DAILY PO Last administered on 02/22/17 09:32 ; Start 02/20/17 at 09:00 Diphenhydramine HCl (Benadryl) 25 mg Q6H PRN PO pruritis Last administered on 02/20/17 14:36; Start 02/20/17 at 05:00 Albuterol Sulfate (Albuterol Neb) 2.5 mg Q2HR NEB PRN INH sob/wheezing; Start 02/20/17 at 05:00 Cyclobenzaprine HCl (Flexeril) 5 mg Q8H PRN PO muscle spasm; Start 02/20/17 at 05:00 Oxycodone/ Acetaminophen (Percocet 5-325 Mg) 1 tab Q4H PRN PO pain > 5; Start 02/20/17 at 05:00 Ferrous Sulfate (Ferrous Sulfate Liq) 300 mg DAILY@1200,1700 PO Last administered on 02/21/17 18:01; Start 02/20/17 at 12:00 Sodium Chloride 1,000 ml @ 0 mls/hr Q0M PRN OTHER For Prime & Rinse Back Last administered on 02/22/17 13:00; Start 02/20/17 at 09:11 Heparin Sodium (Porcine) (Heparin Inj) 8,000 units UNSCH PRN IV FLUSH WITH DIALYSIS; Start 02/20/17 at 09:15 Sodium Chloride 1,000 ml @ 200 mls/hr Q5H PRN IV WITH DIALYSIS; Start at 09:11 Sodium Chloride 1,000 ml @ 0 mls/hr Q0M PRN OTHER WITH DIALYSIS; Start at 09:11 Mannitol (Mannitol Inj) 12.5 gm UNSCH PRN IV WITH DIALYSIS; Start 02/20/17 at 09:15 Albumin Human 100 ml @ 60 mls/hr UNSCH PRN IV WITH DIALYSIS; Start 02/20/17 at 09:15 Sodium Chloride (NS Flush) 5 ml UNSCH PRN IV FLUSH WITH DIALYSIS; Start at 09:15 Heparin Sodium (Porcine) (Heparin Inj) UNSCH PRN .XX WITH DIALYSIS Last administered on 02/22/17 13:00; Start 02/20/17 at 09:15 Gentamicin Sulfate (Gentamicin (Dialysis) Inj) 20 mg UNSCH PRN OTHER WITH DIALYSIS Last administered on 02/22/17 13:00; Start 02/20/17 at 09:15 Ondansetron HCl (Zofran Inj) 4 mg UNSCH PRN IV PUSH WITH DIALYSIS; Start 02/20 at 09:15 Acetaminophen (Tylenol) 650 mg UNSCH PRN PO for headach, pain, temp > 101F; Start 02/20/17 at 09:15 Diphenhydramine HCl (Benadryl) 25 mg UNSCH PRN PO for hives/itching/anaphylaxis ; Start 02/20/17 at 09:15 Nitroglycerin (Nitrostat Sl) 0.4 mg UNSCH PRN SL CHEST PAIN; Start 02/20/17 at 09:15 Clonidine (Catapres) 0.1 mg UNSCH PRN PO for BP > 180/100 X 2 readings; Start 02/20/17 at 09:15 Epoetin Joe (Epogen Inj) 10,000 units UNSCH PRN IV PUSH WITH DIALYSIS Last administered on 02/22/17 13:00; Start 02/20/17 at 09:15 Gelatin (Gelfoam 12 Mm/7 Mm Top) 1 foam UNSCH PRN TOP SEE LABEL COMMENTS; Start 02/20/17 at 09:15 Albuterol/ Ipratropium (Duoneb Neb) 1 ampule QID NEB NEB Last administered on 02/22/17t 08:35; Start 02/20/17 at 20:00 Darbepoetin Joe (Aranesp Inj) 40 mcg Q7D SQ ; Start 02/21/17 at 09:00; Stop 02/21/17 at 09:00; Status DC Sodium Chloride 250 ml @ 15 mls/hr ONCE ONCE IV ; Start 02/22/17 at 06:00; Stop 02/22/17 at 22:39 Furosemide (Lasix Inj) 20 mg ONCE ONCE IV PUSH ; Start 02/22/17 at 06:00; Stop 02/22/17 at 06:01; Status DC A/P Problem List: (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 Fonseca is a 56 year old male who has had a very long and complicated history of present illness. He has a known medical history of coronary artery disease status post CABG and chronic kidney disease who initially presented to the hospital on November 22, 2016 with sepsis, anemia, acute renal failure, and extensive right lung pneumonia with cavitation and underwent a right thoracotomy with VATS, lysis of adhesions, and decortication for pulmonary infiltrate in right lung and COPD on 12/30 but developed right chest tube related bronchopleural fistula. He was transferred to [facility] in [place] for further management of persistent leak/bronchopleural fistula. He was discharged on 01/22/2017. He returned following treatment at [facility] on 02/19. Bronchopleural fistula History of Right thoracotomy with VATS Empyema lung with MRSA - status post multiple bronchoscopies with endotracheal valves and gluing performed at [facility] - Keep f/u appointment with IR physician Dr. Lopez 03/05 - continue Meropenem for 4 - 6 weeks (started 01/26) unless otherwise advised by ID. patient also on doxycycline continue with doxycycline. - ID consulted, Pulmonology consulted -Will need to try to set up outpatient home health with IV infusion but very difficult since patient is self paid. Dyspnea -Most likely secondary to severe anemia. Clinical exam his lungs are clear. This occurs with exertion. -Patient transfuse and dialysis with 2 units of packed red blood cells. Will monitor closely. -Follow up with posttransfusion H&H and will transfuse again if needed. Acute on chronic hypoxia -Most likely secondary to anemia. Treat as above. Wean oxygen as tolerated. End-stage renal disease on hemodialysis - Digital Media Strategist following. He is getting hemodialysis. - Avoid nephrotoxins - Monitor electrolytes Anemia, iron deficiency vs CKD or combination -Continue with ferrous sulfate 300 mg liquid twice a day with vitamin C 500 mg twice a day administered at the same time. - continue Aranesp -Today patient is symptomatic he is being transfused with 2 units of packed red blood cells. See treatment as above. COPD - Albuterol nebulizer every 2 hours as needed for shortness of breath or wheezing - Continue Spiriva inhaler Malnutrition - Regular diet - Nepro one can 3 times a day between meals DVT prophylaxis - Patient reports being ambulatory - Recommend SCDs teds while in bed Discharge Planning patient will need terminal gauger IV antibiotics. He is self paid. Case management aware already consulted. Kami Duckworth MD Feb 22, 2017 14:08
[2017-02-22] MEDS: oxyCODONE/ACETAMINOPHEN 5 MG/325 MG TAB PO PRN ×2 (14:29→20:59)
[2017-02-22] MEDS: ASCORBIC ACID 500 MG TAB PO SCH ×2 (15:53→20:11)
[2017-02-22] MEDS: FERROUS SULFATE 300 MG /5ML UDC PO SCH ×2 (15:53→20:11)
--- NOTE | 2017-02-22 19:24 | RADRPT ---
EXAM DATE/TIME: 02/22/2017 18:23 [place] COMPARISON: No previous studies available for comparison. INDICATIONS : Short of Breath MEDICAL HISTORY : Chronic obstructive pulmonary disease. Cardiovascular disease, hypertension SURGICAL HISTORY : CABG. ENCOUNTER: Subsequent ACUITY: 2 weeks PAIN SCORE: 0/10 LOCATION: Bilateral chest FINDINGS: There is hyperinflation of the left lung. Left subclavian catheter tip overlies the SVC. Dialysis cat heter noted from a right subclavian approach. Sternotomy wires and cardiomegaly noted. Mediastinal cl ips are noted. There is persistent consolidative opacity with cavitary changes in the right upper floyd g field. There is perhaps a increased consolidation seen today. There are 2 chest tubes at the right lung base identified. CONCLUSION: Increasing consolidative opacity right upper lobe with cavitary changes again noted. 2 chest tubes ar e noted at the right lung base. Vasu Barrientos MD on February 22, 2017 at 19:22 Board Certified Radiologist. This report was verified electronically.
--- NOTE | 2017-02-22 19:30 | RADRPT ---
EXAM DATE/TIME: 02/22/2017 18:56 [place] COMPARISON: CT THORAX W/O CONTRAST, January 19, 2017, 22:21. CHEST PA & LAT, February 22, 2017, 18:23. INDICATIONS : Shortness of breath for one day. DOSE: 8.7 mCi Tc99m MAA IV 0.80 mCi Tc99m DTPA aerosol MEDICAL HISTORY : Renal disease, end stage. Cardiovascular disease Hypertension. SURGICAL HISTORY : CABG Thoracotomy. ENCOUNTER: Initial ACUITY: 1 day PAIN SCALE: 0/10 LOCATION: chest TECHNIQUE: Following five minutes of tidal breathing of DTPA aerosol, planar images of the lungs were performed in eight projections. The patient was then injected with MAA, and eight-view perfusion scan was perf ormed. FINDINGS: There is an inhomogeneous pattern of aerosol delivery to the periphery of both lungs. There is absenc e of significant ventilation radiotracer accumulation to the right lung, and there is homogeneous per fusion to the lower half of the right lung. This is consistent with a VQ mismatch to the right lower lung. On the left there is poor ventilation to the left lung base and decreased perfusion to the uppe r lobe. There is severe emphysema to the left upper lobe, and abnormal consolidation and cavitary ankit nges on the right. CONCLUSION: Intermediate probability for pulmonary embolism. Vasu Barrientos MD on February 22, 2017 at 19:23 Board Certified Radiologist. This report was verified electronically.
[2017-02-22] MEDS: PANTOPRAZOLE SOD 40 MG DELAYED RELEASE TAB PO SCH (20:11)
[2017-02-23] VITALS (7 sets, daily range): BP systolic 121–135; BP diastolic 71–81; PULSE 80–88; RESP 18–20; TEMP 98.3–98.9; O2SAT 92–97
[2017-02-23] MEDS: MEROPENEM 1000 MG/NS 100 ML IV SCH ×2 (05:44)
[2017-02-23 06:11] LABS: AUTOMATED NEUTROPHIL # 3.9 TH/MM3 (1.8-7.7); BASOPHIL # 0.1 TH/MM3 (0-0.2); BASOPHIL % 0.8 % (0.0-2.0); EOSINOPHIL # 0.7 TH/MM3 (0-0.4); EOSINOPHIL % 9.9 % (0.0-4.0); HEMO FLAGS DIFF FINAL; LYMPH % 24.7 % (9.0-44.0); LYMPHOCYTE # 1.8 TH/MM3 (1.0-4.8); MEAN CORPUSCULAR HEMOGLOBIN 30.4 PG (27.0-34.0); MEAN CORPUSCULAR HGB CONC 33.8 % (32.0-36.0); MONO % 9.9 % (0.0-8.0); NEUT % 54.7 % (16.0-70.0); PLATELET COUNT 200 TH/MM3 (150-450); RED BLOOD COUNT 2.78 MIL/MM3 (4.50-5.90); WHITE BLOOD COUNT 7.2 TH/MM3 (4.0-11.0)
[2017-02-23 06:30] LABS: BICARBONATE 31.3 MEQ/L (21.0-32.0); POTASSIUM 4.2 MEQ/L (3.5-5.1)
[2017-02-23] MEDS: FOLIC ACID 1 MG TAB PO SCH (08:23)
[2017-02-23] MEDS: MULTIVITAMIN TAB PO SCH (08:23)
[2017-02-23] MEDS: DOXYCYCLINE HYCLATE 100 MG CAP PO SCH ×2 (08:23→22:35)
[2017-02-23] MEDS: CARVEDILOL 12.5 MG TAB PO SCH ×2 (08:23→22:35)
[2017-02-23] MEDS: CHOLECALCIFEROL (VIT D3) 1000 UNIT TAB PO SCH (08:23)
[2017-02-23] MEDS: SODIUM CHLORIDE 0.9% FLUSH 10 ML FLUSH IV FLUSH SCH ×2 (08:23→22:35)
[2017-02-23] MEDS: SEVELAMER CARBONATE 800 MG TAB PO SCH ×4 (08:23→17:00)
[2017-02-23] MEDS: TIOTROPIUM BROMIDE 18 MCG INH INH SCH (09:00)
[2017-02-23] MEDS: RESP: ALBUTEROL 2.5 MG/IPRATROPIUM 0.5 MG NEB (SCH) NEB ×4 (10:10→20:11)
--- NOTE | 2017-02-23 10:47 | HHI.NPPN ---
Subjective General Problems: Anemia Renal Failure: Chronic, End Stage Renal Disease Interval History He is awake, alert. Some shortness of breath earlier. (Milla Pack) Objective Data Data Vital Signs Date Time Temp Pulse Resp B/P (MAP) Pulse Ox O2 Delivery O2 Flow Rate FiO2 02/23/17 10:11 96 Nasal Cannula 2.00 02/23/17 08:00 98.4 80 20 121/74 (90) 96 02/23/17 04:00 Nasal Cannula 3.00 02/23/17 04:00 98.5 86 18 133/81 (98) 92 02/23/17 00:00 98.6 82 18 134/73 (93) 97 02/23/17 00:00 Nasal Cannula 3.00 02/22/17 21:14 99 Nasal Cannula 3.00 02/22/17 20:00 Nasal Cannula 3.00 02/22/17 20:00 98.1 91 20 145/90 (108) 99 02/22/17 16:00 99.1 85 18 135/82 (99) 98 02/22/17 15:00 Nasal Cannula 3.00 02/22/17 12:28 97.9 20 155/84 02/22/17 12:21 98.0 89 18 177/80 (Milla Pack) -: 02/23/17 0547 02/23/17 0547 Imaging Last 72 hours Impressions Lung Scan- Nuclear Medicine 02/22/17 0000 Signed Impressions: Service Date/Time: Wednesday, February 22, 2017 18:56 - CONCLUSION: Intermediate probability for pulmonary embolism. Vasu Barrientos MD Chest X-Ray 02/22/17 0000 Signed Impressions: Service Date/Time: Wednesday, February 22, 2017 18:23 - CONCLUSION: Increasing consolidative opacity right upper lobe with cavitary changes again noted. 2 chest tubes are noted at the right lung base. Vasu Barrientos MD Chest X-Ray 02/21/17 0600 Signed Impressions: Service Date/Time: Tuesday, February 21, 2017 04:13 - CONCLUSION: Stable right upper lung consolidation. No pneumothorax seen. Mustapha Wright MD (Milla Pack) Physical Exam General Appearance: Well Developed, Well Nourished, No Acute Distress (Milla Pack) Eyes Eye Exam: Pupils Equal (Milla Pack) Throat Throat Exam: Oral Mucosa [place] & Moist (Milla Pack) Neck Neck Exam: Neck Supple (Milla Pack) Pulmonary Resp Exam: Decreased Bases (Milla Pack) Cardiology CV Exam: Regular (Milla Pack) Gastrointestinal/Abdomen GI Exam: Soft, Non-Tender, Bowel Sounds Present (Milla Pack) Integumentary Skin Exam: Dry, Intact (Milla Pack) Extremeties Extremities Exam: No Edema (Milla Pack) Neurologic Neuro Exam: Alert, Awake, Oriented, Speech Clear (Milla Pack) Assessment/Plan Discussed Condition With: Patient Assessment Summary: Anemia of CKD, Hypertension, End Stage Renal Disease Problem List: (1) ESRD (end stage renal disease) on dialysis ICD Codes: N18.6 - End stage renal disease; Z99.2 - Dependence on renal dialysis Plan: Continue HD support He was dialyzed yesterday (holiday schedule), 1.3L UF He still makes urine, minimal fluid removal with HD Monitor electrolytes Avoid excess IVF On Renvela for metabolic bone disorder Will need AVF revision, will consult Dr. Pyle to evaluate after the holiday (2) Malnutrition ICD Codes: E46 - Malnutrition Status: Acute Plan: High protein diet, add supplements (3) Empyema lung ICD Codes: J86.9 - Pyothorax without fistula Plan: On meropenem Monitor the patient clinically (4) Anemia ICD Codes: D64.9 - Anemia Status: Chronic Plan: On Epogen with HD, high dose Off Aranesp Transfused Start Venofer IV (Milla Pack) Plan patient was seen and examined. Agree with above assessment and plan. Needs nutritional support. (Jim Zuluaga MD) Milla Pack Feb 23, 2017 10:47 Jim Zuluaga MD Feb 24, 2017 10:18
--- NOTE | 2017-02-23 11:34 | HHI.IDPN ---
Subjective Subjective Remarks pt developped resp distress last night , required Venti mask Now back on NC O2 CXR is worse VQ negative pt is afebrile Antibiotics meropenem doxycyline Allergies: Coded Allergies: No Known Allergies (Unverified Allergy, Unknown, 02/20/17) linezolid (Verified Adverse Reaction, Severe, 02/20/17) thrombocytopenia vancomycin (Verified Adverse Reaction, Intermediate, 02/20/17) red man's syndrome Objective . Vital Signs Date Time Temp Pulse Resp B/P (MAP) Pulse Ox O2 Delivery O2 Flow Rate FiO2 02/23/17 10:11 96 Nasal Cannula 2.00 02/23/17 08:00 98.4 80 20 121/74 (90) 96 02/23/17 04:00 Nasal Cannula 3.00 02/23/17 04:00 98.5 86 18 133/81 (98) 92 02/23/17 00:00 98.6 82 18 134/73 (93) 97 02/23/17 00:00 Nasal Cannula 3.00 02/22/17 21:14 99 Nasal Cannula 3.00 02/22/17 20:00 Nasal Cannula 3.00 02/22/17 20:00 98.1 91 20 145/90 (108) 99 02/22/17 16:00 99.1 85 18 135/82 (99) 98 02/22/17 15:00 Nasal Cannula 3.00 02/22/17 12:28 97.9 20 155/84 02/22/17 12:21 98.0 89 18 177/80 . Laboratory Tests Test 02/22/17 04:30 02/22/17 19:30 02/23/17 05:47 White Blood Count 6.1 TH/MM3 7.2 TH/MM3 Red Blood Count 2.16 MIL/MM3 2.78 MIL/MM3 Hemoglobin 6.6 GM/DL 8.7 GM/DL 8.5 GM/DL Hematocrit 20.0 % 26.0 % 25.0 % Mean Corpuscular Volume 92.4 FL 90.0 FL Mean Corpuscular Hemoglobin 30.7 PG 30.4 PG Mean Corpuscular Hemoglobin Concent 33.2 % 33.8 % Red Cell Distribution Width 19.8 % 18.0 % Platelet Count 204 TH/MM3 200 TH/MM3 Mean Platelet Volume 7.8 FL 7.7 FL Neutrophils (%) (Auto) 56.0 % 54.7 % Lymphocytes (%) (Auto) 22.4 % 24.7 % Monocytes (%) (Auto) 8.8 % 9.9 % Eosinophils (%) (Auto) 12.1 % 9.9 % Basophils (%) (Auto) 0.7 % 0.8 % Neutrophils # (Auto) 3.4 TH/MM3 3.9 TH/MM3 Lymphocytes # (Auto) 1.4 TH/MM3 1.8 TH/MM3 Monocytes # (Auto) 0.5 TH/MM3 0.7 TH/MM3 Eosinophils # (Auto) 0.7 TH/MM3 0.7 TH/MM3 Basophils # (Auto) 0.0 TH/MM3 0.1 TH/MM3 CBC Comment DIFF FINAL DIFF FINAL Differential Comment Laboratory Tests Test 02/22/17 04:30 02/23/17 05:47 Blood Urea Nitrogen 42 MG/DL 34 MG/DL Creatinine 6.38 MG/DL 5.08 MG/DL Random Glucose 95 MG/DL 90 MG/DL Calcium Level 8.6 MG/DL 8.4 MG/DL Sodium Level 139 MEQ/L 140 MEQ/L Potassium Level 4.2 MEQ/L 4.2 MEQ/L Chloride Level 101 MEQ/L 102 MEQ/L Carbon Dioxide Level 30.4 MEQ/L 31.3 MEQ/L Anion Gap 8 MEQ/L 7 MEQ/L Estimat Glomerular Filtration Rate 9 ML/MIN 12 ML/MIN Iron Level 23 MCG/DL Total Iron Binding Capacity 153 MCG/DL Percent Iron Saturation 15.1 % B-Type Natriuretic Peptide 1324 PG/ML Imaging Last Impressions Lung Scan- Nuclear Medicine 02/22/17 0000 Signed Impressions: Service Date/Time: Wednesday, February 22, 2017 18:56 - CONCLUSION: Intermediate probability for pulmonary embolism. Vasu Barrientos MD Chest X-Ray 02/22/17 0000 Signed Impressions: Service Date/Time: Wednesday, February 22, 2017 18:23 - CONCLUSION: Increasing consolidative opacity right upper lobe with cavitary changes again noted. 2 chest tubes are noted at the right lung base. Vasu Barrientos MD Physical Exam CONSTITUTIONAL/GENERAL: This is a thinm emaciated chroniclly ill appearing patient, in no apparent distress. TUBES/LINES/DRAINS: Permacath in place R chest SKIN: No jaundice, rashes, or lesions. . Skin temperature appropriate. Not diaphoretic. CARDIOVASCULAR: Regular rate and rhythm without murmurs, gallops, or rubs. No JVD. Peripheral pulses symmetric. RESPIRATORY/CHEST: Symmetric, unlabored respirations. R side with prominent rhonchi to auscultation. Decreased BS on R Breath sounds equal bilaterally. CT side with moderate drainage of odorles seropurulent drainage GASTROINTESTINAL: Abdomen soft, non-tender, nondistended. No hepato-splenomegaly , or palpable masses. No guarding. Bowel sounds present. GENITOURINARY: Without palpable bladder distension. MUSCULOSKELETAL: Extremities without clubbing, cyanosis, or edema. No joint tenderness or effusion noted. No calf tenderness. No mottling or clubbing. NEUROLOGICAL: Awake and alert. Non focal PSYCHIATRIC:calm, normal affect Assessment & Plan Remarks BP fistula and polimicrobial empyema : PSAE (MDRO) , MRSA, strep viridans and Sean frag sp CT drainage and endobronchial valve placement ESRD/HD Allergic to vancomycin, developped thrombocytopenia to zyvox cont meropenem and doxycyline x 6 weeks total (start day was 01/26) If clinical response is not adequate will need to recheck his culture dw Paz Melo MD Feb 23, 2017 11:33
[2017-02-23] MEDS: FERROUS SULFATE 300 MG /5ML UDC PO SCH ×2 (12:30→17:00)
[2017-02-23] MEDS: ASCORBIC ACID 500 MG TAB PO SCH ×2 (12:30→17:00)
[2017-02-23] MEDS: IRON SUCROSE INJ 100 MG in SODIUM CHLORIDE 0.9% INJ 100 ML IV SCH (12:31)
--- NOTE | 2017-02-23 14:00 | HHI.PR ---
Subjective Remarks Follow-up for dyspnea, broncho-fistula and empyema Patient has shortness of breathing yesterday in which she went on a venti mask last night. A stat chest x-ray and VQ scan was done which showed increased right consolidation and VQ was moderate probability but defect was at the consolidation site. Per patient and his nurse he had a lot of purulent drainage from his chest tube in which reading improved drastically. Today patient stated that shortness of breathing is mild with drastic improvement from yesterday. Positive for cough. Remains afebrile. Objective Vitals Vital Signs Date Time Temp Pulse Resp B/P (MAP) Pulse Ox O2 Delivery O2 Flow Rate FiO2 02/23/17 12:00 98.5 82 20 131/75 (93) 94 02/23/17 10:11 96 Nasal Cannula 2.00 02/23/17 08:00 98.4 80 20 121/74 (90) 96 02/23/17 04:00 Nasal Cannula 3.00 02/23/17 04:00 98.5 86 18 133/81 (98) 92 02/23/17 00:00 98.6 82 18 134/73 (93) 97 02/23/17 00:00 Nasal Cannula 3.00 02/22/17 21:14 99 Nasal Cannula 3.00 02/22/17 20:00 Nasal Cannula 3.00 02/22/17 20:00 98.1 91 20 145/90 (108) 99 02/22/17 16:00 99.1 85 18 135/82 (99) 98 02/22/17 15:00 Nasal Cannula 3.00 I/O 02/22/17 02/22/17 02/22/17 02/23/17 02/23/17 02/23/17 06:59 14:59 22:59 06:59 14:59 22:59 Intake Total 662 ml 800 ml 720 ml 360 ml Output Total 825 ml 750 ml 300 ml 800 ml 250 ml Balance -163 ml 50 ml 420 ml -440 ml -250 ml Intake Oral 662 ml 720 ml 360 ml Packed Cells 800 ml Output Urine Total 825 ml 250 ml 300 ml 800 ml 250 ml Hemodialysis 500 ml # Bowel Movements 0 1 Result Diagram: 02/23/1747 02/23/1747 Objective Remarks GENERAL: in NAD CARDIOVASCULAR: Regular rate and rhythm without murmurs, gallops, or rubs. RESPIRATORY: Breath sounds equal bilaterally. No accessory muscle use. GASTROINTESTINAL: Abdomen soft, non-tender, nondistended. EXT: neg edema Medications and IVs Current Medications Sodium Chloride (NS Flush) 2 ml UNSCH PRN IV FLUSH FLUSH AFTER USING IV ACCESS ; Start 02/19/17 at 23:15 Sodium Chloride (NS Flush) 2 ml BID IV FLUSH Last administered on 02/22/17 20 :12; Start 02/20/17 at 09:00 Acetaminophen (Tylenol) 650 mg Q4H PRN PO TEMP > 100.4; Start 02/19/17 at 23: 15 Naloxone HCl (Narcan Inj) 0.4 mg UNSCH PRN IV PUSH SEE LABEL COMMENTS; Start 02/19/17 at 23:15 Sennosides (Senokot) 17.2 mg Q12H PRN PO Moderate constipation; Start at 23:15 Bisacodyl (Dulcolax Supp) 10 mg DAILY PRN RECTAL SEVERE CONSITIPATION; Start 02/19/17 at 23:15 Lactulose (Lactulose Liq) 30 ml DAILY PRN PO SEVERE CONSITIPATION; Start 02/19 at 23:15 Carvedilol (Coreg) 25 mg BID PO Last administered on 02/23/17 08:23; Start 02/20/17 at 03:00 Cyclobenzaprine HCl (Flexeril) 5 mg TID PO ; Start 02/20/17 at 09:00; Stop at 09:00; Status DC Doxycycline Hyclate (Vibramycin) 100 mg BID PO Last administered on 02/23/17 08:23; Start 02/20/17 at 03:00 Folic Acid (Folate) 1 mg DAILY PO Last administered on 02/23/17 08:23; Start 02/20/17 at 09:00 Meropenem (Merrem Inj) 1,000 mg Q24H IV ; Start 02/20/17 at 04:00; Status Cancel Pantoprazole Sodium (Protonix) 40 mg HS PO Last administered on 02/22/17 20: 11; Start 02/20/17 at 21:00 Sevelamer Carbonate (Renvela) 1,600 mg TIDAC PO Last administered on 12:30; Start 02/20/17 at 08:00 Tiotropium [place] (Spiriva Inh) 18 mcg BID INH Last administered on 20:13; Start 02/20/17 at 03:00 Meropenem 1000 mg/ Sodium Chloride 100 ml @ 200 mls/hr DAILY@0500 IV Last administered on 02/23/17 05:44; Start 02/20/17 at 05:00 Darbepoetin Joe (Aranesp Inj) 40 mcg Q7D SQ ; Start 02/20/17 at 09:00; Stop 02/20/17 at 21:09; Status DC Cholecalciferol (Vitamin D3) 2,000 units DAILY PO Last administered on 08:23; Start 02/20/17 at 09:00 Vitamin B Complex/ Vitamin C ([place] C) 1 tab DAILY PO ; Start 02/20/17 at 09: 00; Stop 02/20/17 at 09:00; Status DC Ascorbic Acid (Vitamin C) 500 mg BID@1200,1700 PO Last administered on 12:30; Start 02/20/17 at 12:00 Non-Formulary Medication 1 cap DAILY PO ; Start 02/20/17 at 09:00; Status UNV Ferrous Sulfate (Ferrous Sulfate) 325 mg BID PO ; Start 02/20/17 at 09:00; Stop 02/20/17 at 09:00; Status DC Multivitamins (Theragran) 1 tab DAILY PO Last administered on 02/23/17 08:23 ; Start 02/20/17 at 09:00 Diphenhydramine HCl (Benadryl) 25 mg Q6H PRN PO pruritis Last administered on 02/20/17 14:36; Start 02/20/17 at 05:00 Albuterol Sulfate (Albuterol Neb) 2.5 mg Q2HR NEB PRN INH sob/wheezing; Start 02/20/17 at 05:00 Cyclobenzaprine HCl (Flexeril) 5 mg Q8H PRN PO muscle spasm; Start 02/20/17 at 05:00 Oxycodone/ Acetaminophen (Percocet 5-325 Mg) 1 tab Q4H PRN PO pain > 5 Last administered on 02/22/17 20:59; Start 02/20/17 at 05:00 Ferrous Sulfate (Ferrous Sulfate Liq) 300 mg DAILY@1200,1700 PO Last administered on 02/23/17 12:30; Start 02/20/17 at 12:00 Sodium Chloride 1,000 ml @ 0 mls/hr Q0M PRN OTHER For Prime & Rinse Back Last administered on 02/22/17 13:00; Start 02/20/17 at 09:11 Heparin Sodium (Porcine) (Heparin Inj) 8,000 units UNSCH PRN IV FLUSH WITH DIALYSIS; Start 02/20/17 at 09:15 Sodium Chloride 1,000 ml @ 200 mls/hr Q5H PRN IV WITH DIALYSIS; Start at 09:11 Sodium Chloride 1,000 ml @ 0 mls/hr Q0M PRN OTHER WITH DIALYSIS; Start at 09:11 Mannitol (Mannitol Inj) 12.5 gm UNSCH PRN IV WITH DIALYSIS; Start 02/20/17 at 09:15 Albumin Human 100 ml @ 60 mls/hr UNSCH PRN IV WITH DIALYSIS; Start 02/20/17 at 09:15 Sodium Chloride (NS Flush) 5 ml UNSCH PRN IV FLUSH WITH DIALYSIS; Start at 09:15 Heparin Sodium (Porcine) (Heparin Inj) UNSCH PRN .XX WITH DIALYSIS Last administered on 02/22/17 13:00; Start 02/20/17 at 09:15 Gentamicin Sulfate (Gentamicin (Dialysis) Inj) 20 mg UNSCH PRN OTHER WITH DIALYSIS Last administered on 02/22/17 13:00; Start 02/20/17 at 09:15 Ondansetron HCl (Zofran Inj) 4 mg UNSCH PRN IV PUSH WITH DIALYSIS; Start 02/20 at 09:15 Acetaminophen (Tylenol) 650 mg UNSCH PRN PO for headach, pain, temp > 101F; Start 02/20/17 at 09:15 Diphenhydramine HCl (Benadryl) 25 mg UNSCH PRN PO for hives/itching/anaphylaxis ; Start 02/20/17 at 09:15 Nitroglycerin (Nitrostat Sl) 0.4 mg UNSCH PRN SL CHEST PAIN; Start 02/20/17 at 09:15 Clonidine (Catapres) 0.1 mg UNSCH PRN PO for BP > 180/100 X 2 readings; Start 02/20/17 at 09:15 Epoetin Joe (Epogen Inj) 10,000 units UNSCH PRN IV PUSH WITH DIALYSIS Last administered on 02/22/17 13:00; Start 02/20/17 at 09:15; Stop 02/23/17 at 10 :51; Status DC Gelatin (Gelfoam 12 Mm/7 Mm Top) 1 foam UNSCH PRN TOP SEE LABEL COMMENTS; Start 02/20/17 at 09:15 Albuterol/ Ipratropium (Duoneb Neb) 1 ampule QID NEB NEB Last administered on 02/23/17 10:10; Start 02/20/17 at 20:00 Darbepoetin Joe (Aranesp Inj) 40 mcg Q7D SQ ; Start 02/21/17 at 09:00; Stop 02/21/17 at 09:00; Status DC Sodium Chloride 250 ml @ 15 mls/hr ONCE ONCE IV ; Start 02/22/17 at 06:00; Stop 02/22/17 at 22:39; Status DC Furosemide (Lasix Inj) 20 mg ONCE ONCE IV PUSH ; Start 02/22/17 at 06:00; Stop 02/22/17 at 06:01; Status DC Iron Sucrose 100 mg/Sodium Chloride 105 ml @ 105 mls/hr DAILY IV Last administered on 02/23/17 12:31; Start 02/23/17 at 11:00; Stop 02/25/17 at 09 :59 Epoetin Joe (Epogen Inj) 14,000 units UNSCH PRN IV PUSH WITH DIALYSIS; Start 02/23/17 at 11:00 A/P Problem List: (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 Fonseca is a 56 year old male who has had a very long and complicated history of present illness. He has a known medical history of coronary artery disease status post CABG and chronic kidney disease who initially presented to the hospital on November 22, 2016 with sepsis, anemia, acute renal failure, and extensive right lung pneumonia with cavitation and underwent a right thoracotomy with VATS, lysis of adhesions, and decortication for pulmonary infiltrate in right lung and COPD on 12/30 but developed right chest tube related bronchopleural fistula. He was transferred to [facility] in [place] for further management of persistent leak/bronchopleural fistula. He was discharged on 01/22/2017. He returned following treatment at [facility] on 02/19. Bronchopleural fistula History of Right thoracotomy with VATS Empyema lung with MRSA - status post multiple bronchoscopies with endotracheal valves and gluing performed at [facility] - Keep f/u appointment with IR physician Dr. Lopez 03/05 - continue Meropenem for 4 - 6 weeks (started 01/26) unless otherwise advised by ID. patient also on doxycycline continue with doxycycline. - ID consulted, Pulmonology consulted -Will need to try to set up outpatient home health with IV infusion but very difficult since patient is self paid. Acute on chronic hypoxia. -Most likely secondary to worsening of the empyema. Chest x-ray yesterday showed increase right consolidation and patient also had increase purulent output and the chest tube. VQ scan suggests moderate probability but that is due to the consolidation. No suspicion for any PE. -Clinically patient is improving drastically. I spoke to Dr. Sam in regards to results and clinical status recommends consult to CT surgeon. Will place consult to CT surgery. End-stage renal disease on hemodialysis - Pyridine Recovery Operator following. He is getting hemodialysis. - Avoid nephrotoxins - Monitor electrolytes Anemia, iron deficiency vs CKD or combination -Continue with ferrous sulfate 300 mg liquid twice a day with vitamin C 500 mg twice a day administered at the same time. - continue Aranesp -Status post transfused 2 packs red blood cells on 02/22/2017 and responded appropriately. COPD - Albuterol nebulizer every 2 hours as needed for shortness of breath or wheezing - Continue Spiriva inhaler Malnutrition - Regular diet - Nepro one can 3 times a day between meals DVT prophylaxis - Patient reports being ambulatory - Recommend SCDs teds while in bed Discharge Planning patient will need shelter IV antibiotics. He is self paid. Case management aware already consulted. Clinical status worsen overnight will work hard CT surgeon consult. Kami Duckwotrh MD Feb 23, 2017 14:00
--- NOTE | 2017-02-23 18:50 | HHI.PR ---
Subjective Remarks Has some Green drainage from chest tubes on Right. No Fever. Was Dialyzed. Objective Vital Signs Date Time Temp Pulse Resp B/P (MAP) Pulse Ox O2 Delivery O2 Flow Rate FiO2 02/23/17 16:00 98.9 87 20 122/71 (88) 95 02/23/17 12:00 98.5 82 20 131/75 (93) 94 02/23/17 10:11 96 Nasal Cannula 2.00 02/23/17 08:00 98.4 80 20 121/74 (90) 96 02/23/17 04:00 Nasal Cannula 3.00 02/23/17 04:00 98.5 86 18 133/81 (98) 92 02/23/17 00:00 98.6 82 18 134/73 (93) 97 02/23/17 00:00 Nasal Cannula 3.00 02/22/17 21:14 99 Nasal Cannula 3.00 02/22/17 20:00 Nasal Cannula 3.00 02/22/17 20:00 98.1 91 20 145/90 (108) 99 I/O 02/22/17 02/22/17 02/22/17 02/23/17 02/23/17 02/23/17 07:00 15:00 23:00 07:00 15:00 23:00 Intake Total 662 ml 800 ml 720 ml 360 ml 925 ml Output Total 825 ml 750 ml 300 ml 800 ml 250 ml Balance -163 ml 50 ml 420 ml -440 ml 675 ml Intake Oral 662 ml 720 ml 360 ml 820 ml IV Total 105 ml Packed Cells 800 ml Output Urine Total 825 ml 250 ml 300 ml 800 ml 250 ml Hemodialysis 500 ml # Voids 3 # Bowel Movements 0 1 Result Diagram: 02/23/1747 02/23/17 0547 Objective Remarks IN GENERAL: This is a middle-aged thinly built white male who is pale and mildly dyspneic at rest. VITAL SIGNS: Blood pressure 110/60, pulse is 80, respirations 24, temperature 97.5. HEAD, EYES, EARS, NOSE, AND THROAT: Head normocephalic. Pupils reactive. Tongue is moist. Throat was clear. Nasal mucosa injected. NECK: Supple. No bruits or thyroid enlargement. CHEST: Decreased breath sounds over the right chest with occasional wheezes in the right upper lung june.Chest Tubes in place in Right chest. HEART: The heart sounds are regular S1-S2. No murmur. ABDOMEN: The abdomen is soft, protuberant without masses or organomegaly or tenderness. Bowel sounds are active. EXTREMITIES: no edema. Peripheral pulses are diminished. NEUROLOGIC: Reflexes are 1+ with no gross motor deficits. Cranial nerves grossly intact. SKIN: No lesions noted. Assessment and Plan Assessment and Plan IMPRESSION 1. Right bronchopleural fistula. 2. Empyema right chest. 3. Persistent air leak with history of pneumothorax. 4. COPD, chronic bronchitis or bronchiectasis. 5. End-stage renal disease on dialysis. Plan : 1. Will continue O2 at 2 L. 2. Nebs qid Duoneb. 3. Continue antibiotics per ID. 4. IS at bedside q2h. 5. Consult Thoracic surgery. 6. Chest X Ray in Alison Wilson MD Feb 23, 2017 18:50
[2017-02-23] MEDS: PANTOPRAZOLE SOD 40 MG DELAYED RELEASE TAB PO SCH (22:35)
[2017-02-23] MEDS: diphenhydrAMINE HCL 25 MG CAP PO PRN (23:43)
[2017-02-24] VITALS (7 sets, daily range): BP systolic 138–147; BP diastolic 71–87; PULSE 79–87; RESP 16–20; TEMP 98.1–98.7; O2SAT 92–95
[2017-02-24] MEDS: MEROPENEM 1000 MG/NS 100 ML IV SCH ×2 (05:40)
[2017-02-24] MEDS: RESP: ALBUTEROL 2.5 MG/IPRATROPIUM 0.5 MG NEB (SCH) NEB ×4 (07:48→20:36)
[2017-02-24] MEDS: SEVELAMER CARBONATE 800 MG TAB PO SCH ×3 (08:00→17:26)
[2017-02-24] MEDS ORDERED: TIOTROPIUM BROMIDE 18 MCG INH INH SCH (09:00)
[2017-02-24] MEDS: DOXYCYCLINE HYCLATE 100 MG CAP PO SCH ×2 (09:00→22:34)
--- NOTE | 2017-02-24 09:44 | HHI.NPPN ---
Subjective General Problems: Anemia Renal Failure: Chronic, End Stage Renal Disease Interval History Seen during dialysis. No new complaints. (Milla Pack) Review of Systems General Constitutional: Fatigue (Milla Pack) Objective Data Data Vital Signs Date Time Temp Pulse Resp B/P (MAP) Pulse Ox O2 Delivery O2 Flow Rate FiO2 02/24/17 04:00 98.1 79 16 139/71 (93) 92 02/24/17 00:00 98.7 79 20 142/71 (94) 95 02/23/17 20:00 Nasal Cannula 2.00 02/23/17 20:00 98.4 85 20 135/80 (98) 93 02/23/17 16:00 98.9 87 20 122/71 (88) 95 02/23/17 12:00 98.5 82 20 131/75 (93) 94 02/23/17 10:11 96 Nasal Cannula 2.00 (Milla Pack) -: 02/23/17 0547 02/23/17 0547 Imaging Last Impressions Lung Scan-VQ Nuclear Medicine 02/22/17 0000 Signed Impressions: Service Date/Time: Wednesday, February 22, 2017 18:56 - CONCLUSION: Intermediate probability for pulmonary embolism. Vasu Barrientos MD Chest X-Ray 02/22/17 0000 Signed Impressions: Service Date/Time: Wednesday, February 22, 2017 18:23 - CONCLUSION: Increasing consolidative opacity right upper lobe with cavitary changes again noted. 2 chest tubes are noted at the right lung base. Vasu Barrientos MD Tubes & Lines: Perma-Cath (Milla Pack) Physical Exam General Appearance: Well Developed, Well Nourished, No Acute Distress, Pale (Milla Pack) Eyes Eye Exam: Pupils Equal (Milla Pack) Throat Throat Exam: Oral Mucosa [place] & Moist (Milla Pack) Neck Neck Exam: Neck Supple (Milla Pack) Pulmonary Resp Exam: Breath Sounds Equal, Crackles, Decreased Bases (Milla Pack) Cardiology CV Exam: Regular, Normal Sinus Rhythm (Milla Pack) Gastrointestinal/Abdomen GI Exam: Soft, Non-Tender, Bowel Sounds Present (Milla Pack) Musculoskeletal MS Exam: Joints Intact, Good Strength (Milla Pack) Integumentary Skin Exam: Clear, Warm, Dry, Intact (Milla Pack) Extremeties Extremities Exam: No Edema, Pedal Pulses Palpable (Milla Pack) Neurologic Neuro Exam: Alert, Awake, Oriented, Speech Clear (Milla Pack) Assessment/Plan Discussed Condition With: Patient Assessment Summary: Anemia of CKD, Hypertension, End Stage Renal Disease Problem List: (1) ESRD (end stage renal disease) on dialysis ICD Codes: N18.6 - End stage renal disease; Z99.2 - Dependence on renal dialysis Plan: Continue HD support MWF (this week will be Thursday/Thursday) Seen during dialysis today on a 3K, 350 BFR, minimal fluid removal He still makes urine Monitor electrolytes Avoid excess IVF On Renvela for metabolic bone disorder Will need AVF revision, will consult Dr. Pyle to evaluate after the holiday (2) Malnutrition ICD Codes: E46 - Malnutrition Status: Acute Plan: High protein diet, add supplements (3) Empyema lung ICD Codes: J86.9 - Pyothorax without fistula Plan: On meropenem and doxycycline Monitor the patient clinically (4) Anemia ICD Codes: D64.9 - Anemia Status: Chronic Plan: On Epogen with HD, high dose Off Aranesp Transfused since admission Start Venofer IV (Milla Pack) Plan patient was seen and examined. Seen during dialysis. Agree with above assessment and plan. Needs high protein diet. Continue supplements. Check phosphorus and PTH. (Jim Zuluaga MD) Milla Pack Feb 24, 2017 09:44 Jim Zuluaga MD Feb 24, 2017 10:39
[2017-02-24] MEDS: GENTAMICIN SULFATE (DIALYSIS USE ONLY) 20 MG/2 ML VIAL OTHER PRN (10:57)
[2017-02-24] MEDS: EPOETIN ALFA 10,000 UNITS/ML VIAL IV PUSH PRN (10:58)
[2017-02-24] MEDS: HEPARIN SODIUM - IV 10,000 UNITS/10 ML VIAL PRN (10:58)
--- NOTE | 2017-02-24 11:46 | MB ---
cc: DOROTHY BANEGAS MD DATE OF CONSULTATION 02/24/2017 HISTORY OF PRESENT ILLNESS This is a 56-year-old patient well known to our service who had undergone right thoracotomy and video-assisted thoracoscopy, biopsy right upper lobe infiltrate, pleurodesis on 12/30. Apparently the patient had extensive fibrotic lung with bronchiectasis of the right upper lobe. 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 He was then transferred to [facility] in [place] due to bronchopleural fistula, persistent air leak with partially loculated hydropneumothorax. He was transferred for placement of endobronchial valves. He underwent bronchoscopy, endobronchial valve placement 01/26/2017, repeat bronch on the , then he had further endobronchial valves place with gluing that had no air leak for a couple of days, then the air leak recurred. Then he returned on the with repeat new endobronchial VATS. Subsequently they ended up having a second chest tube that was placed. On the he had #24-Amharic Thal-Quick chest tube on the right lower lateral chest wall. These were converted to empyema tubes and left open and resutured and resutured in with safety clips for protection and dry dressing for drainage. They continued to drain. The patient does have a follow-up visit with Dr. Cody Magallanes on 03/05/2017 at [facility]. They were recommended for doxycycline for 4-6 weeks and also meropenem 4-6 weeks. The patient was also sent back to get established for hemodialysis in a local center. He is receiving dialysis today. The cultures grew MRSA, Pseudomonas, Streptococcus viridans. PAST MEDICAL HISTORY 1. Fibrotic lung with bronchiectasis. 2. Chronic COPD. 3. Tobacco abuse. 4. Coronary artery disease. 5. Acute renal failure on dialysis Thursday, Thursday, Thursday. 6. History of GI bleed. 7. History of recent pneumonia, pulmonary infiltrates. 8. Recent sepsis. 9. Hypertension. PAST SURGICAL HISTORY 1. Coronary artery bypass grafting in 2013. 2. Placement of a right VasCath. The VasCath was placed on the 22 of January. 3. He has a left central line Power-Quick was placed at [facility]. 4. He has a left AV shunt for dialysis which has not matured. ALLERGIES LINEZOLID. VANCOMYCIN. He has had history of recent red man syndrome. CURRENT MEDICATIONS 1. Spiriva. 2. IV Iron. 3. Protonix. 4. Vitamin C. 5. Ferrous sulfate. 6. Renvela. 7. Vitamin D. 8. Folic acid. 9. Currently he is on meropenem. 10. Coreg. 11. Doxycycline. FAMILY HISTORY Noncontributory. SOCIAL HISTORY Noncontributory. Apparently lives with his brother. REVIEW OF SYSTEMS As above in HPI, otherwise 12 systems unremarkable. PHYSICAL EXAMINATION VITAL SIGNS: Blood pressure 110/60, heart rate 80, respiratory rate 24. GENERAL: The patient is awake, alert in no acute distress. HEENT: Head is normocephalic, atraumatic. Pupils equal and reactive. Oral mucosa pink. CHEST: He has a PermCath in the right upper chest. He has a left single-lumen Power-Quick central line on the left upper chest. He has a non-matured AV fistula left forearm. He has a large dressing over to his right chest. He has a proximal right lateral chest tube in place that is sutured in and open and secured with a clip. Then he has a right lower lateral chest wall #24 chest tube that is open and draining and secured with a safety pin also and sutured in. They are both draining yellowish, foul odor drainage. ABDOMEN: Soft, flat, nontender. No masses or organomegaly. EXTREMITIES: No cyanosis, clubbing or edema. IMPRESSION AND PLAN 1. Status post right thoracotomy VATS procedure, biopsy right upper lobe infiltrate on 12/30 with post-bronchopleural fistula, placement of endobronchial valve at [facility] in [place]. He has had multiple valves placed and multiple bronchoscopies. The two chest tubes have been converted to empyema tubes which are to drain and he has daily dressing changes. Again, his last culture did show MRSA, Pseudomonas, Streptococcus viridans currently on meropenem and doxycycline. Infectious Disease has been reconsulted. 2. End-stage renal disease. He is to be worked up to be evaluated for outpatient hemodialysis. He does have an appointment with Dr. Cody Magallanes back at [facility] on 03/05/2017. 3. Continue with daily dressing changes with IV antibiotics as recommended. 4. There is no surgery on our part. 5. We will have the patient continue with PT and OT. 6. There will be no manipulation of the tubes at this time. Dictated by: ABBY Martinez Dorothy GARCIA/AUGUSTO /9:57 AM /11:48 AM
[2017-02-24] MEDS: FERROUS SULFATE 300 MG /5ML UDC PO SCH ×2 (13:07→17:26)
[2017-02-24] MEDS: IRON SUCROSE INJ 100 MG in SODIUM CHLORIDE 0.9% INJ 100 ML IV SCH (13:07)
[2017-02-24] MEDS: FOLIC ACID 1 MG TAB PO SCH (13:08)
[2017-02-24] MEDS: MULTIVITAMIN TAB PO SCH (13:08)
[2017-02-24] MEDS: CHOLECALCIFEROL (VIT D3) 1000 UNIT TAB PO SCH (13:08)
[2017-02-24] MEDS: CARVEDILOL 12.5 MG TAB PO SCH ×2 (13:08→22:34)
[2017-02-24] MEDS: ASCORBIC ACID 500 MG TAB PO SCH ×2 (13:08→17:26)
[2017-02-24] MEDS: SODIUM CHLORIDE 0.9% FLUSH 10 ML FLUSH IV FLUSH SCH ×2 (13:09→22:35)
[2017-02-24] MEDS: oxyCODONE/ACETAMINOPHEN 5 MG/325 MG TAB PO PRN (13:26)
--- NOTE | 2017-02-24 13:50 | HHI.PR ---
Subjective Remarks Follow-up for bronchial fistula, empyema, respiratory failure Patient just came back from dialysis in complaining of shortness of breathing. He said he feels more short of breath today. Denies any increased cough. Remains afebrile. He stated that he has not gotten a nebulizer treatment today. His nurse at the bedside during the interview. Objective Vitals Vital Signs Date Time Temp Pulse Resp B/P (MAP) Pulse Ox O2 Delivery O2 Flow Rate FiO2 02/24/17 13:34 Room Air 2.00 Humidified 02/24/17 08:00 98.3 83 20 147/87 (107) 95 02/24/17 07:48 94 Nasal Cannula 2.00 02/24/17 04:00 98.1 79 16 139/71 (93) 92 02/24/17 00:00 98.7 79 20 142/71 (94) 95 02/23/17 20:00 Nasal Cannula 2.00 02/23/17 20:00 98.4 85 20 135/80 (98) 93 02/23/17 16:00 98.9 87 20 122/71 (88) 95 I/O 02/23/17 02/23/17 02/23/17 02/24/17 02/24/17 02/24/17 07:00 15:00 23:00 07:00 15:00 23:00 Intake Total 360 ml 925 ml 460 ml 613.4 ml Output Total 800 ml 250 ml 900 ml Balance -440 ml 675 ml -440 ml 613.4 ml Intake Oral 360 ml 820 ml 360 ml 500 ml IV Total 105 ml 100 ml 113.4 ml Output Urine Total 800 ml 250 ml 900 ml # Voids 3 # Bowel Movements 1 1 Result Diagram: 02/23/1747 02/23/1747 Objective Remarks GENERAL: in NAD CARDIOVASCULAR: Regular rate and rhythm without murmurs, gallops, or rubs. RESPIRATORY: Diffuse expiratory wheezing. No accessory muscle use. GASTROINTESTINAL: Abdomen soft, non-tender, nondistended. EXT: neg edema Medications and IVs Current Medications Sodium Chloride (NS Flush) 2 ml UNSCH PRN IV FLUSH FLUSH AFTER USING IV ACCESS ; Start 02/19/17 at 23:15 Sodium Chloride (NS Flush) 2 ml BID IV FLUSH Last administered on 02/24/17t 13 :09; Start 02/20/17 at 09:00 Acetaminophen (Tylenol) 650 mg Q4H PRN PO TEMP > 100.4; Start 02/19/17 at 23: 15 Naloxone HCl (Narcan Inj) 0.4 mg UNSCH PRN IV PUSH SEE LABEL COMMENTS; Start 02/19/17 at 23:15 Sennosides (Senokot) 17.2 mg Q12H PRN PO Moderate constipation; Start at 23:15 Bisacodyl (Dulcolax Supp) 10 mg DAILY PRN RECTAL SEVERE CONSITIPATION; Start 02/19/17 at 23:15 Lactulose (Lactulose Liq) 30 ml DAILY PRN PO SEVERE CONSITIPATION; Start 02/19 at 23:15 Carvedilol (Coreg) 25 mg BID PO Last administered on 02/24/17 13:08; Start 02/20/17 at 03:00 Cyclobenzaprine HCl (Flexeril) 5 mg TID PO ; Start 02/20/17 at 09:00; Stop at 09:00; Status DC Doxycycline Hyclate (Vibramycin) 100 mg BID PO Last administered on 02/23/17 22:35; Start 02/20/17 at 03:00 Folic Acid (Folate) 1 mg DAILY PO Last administered on 02/24/17 13:08; Start 02/20/17 at 09:00 Meropenem (Merrem Inj) 1,000 mg Q24H IV ; Start 02/20/17 at 04:00; Status Cancel Pantoprazole Sodium (Protonix) 40 mg HS PO Last administered on 02/23/17 22: 35; Start 02/20/17 at 21:00 Sevelamer Carbonate (Renvela) 1,600 mg TIDAC PO Last administered on 13:08; Start 02/20/17 at 08:00 Tiotropium [place] (Spiriva Inh) 18 mcg BID INH Last administered on 20:13; Start 02/20/17 at 03:00; Stop 02/23/17 at 19:58; Status DC Meropenem 1000 mg/ Sodium Chloride 100 ml @ 200 mls/hr DAILY@0500 IV Last administered on 02/24/17 05:40; Start 02/20/17 at 05:00 Darbepoetin Joe (Aranesp Inj) 40 mcg Q7D SQ ; Start 02/20/17 at 09:00; Stop 02/20/17 at 21:09; Status DC Cholecalciferol (Vitamin D3) 2,000 units DAILY PO Last administered on 13:08; Start 02/20/17 at 09:00 Vitamin B Complex/ Vitamin C (Allbee C) 1 tab DAILY PO ; Start 02/20/17 at 09: 00; Stop 02/20/17 at 09:00; Status DC Ascorbic Acid (Vitamin C) 500 mg BID@1200,1700 PO Last administered on 13:08; Start 02/20/17 at 12:00 Non-Formulary Medication 1 cap DAILY PO ; Start 02/20/17 at 09:00; Status UNV Ferrous Sulfate (Ferrous Sulfate) 325 mg BID PO ; Start 02/20/17 at 09:00; Stop 02/20/17 at 09:00; Status DC Multivitamins (Theragran) 1 tab DAILY PO Last administered on 02/24/17 13:08 ; Start 02/20/17 at 09:00 Diphenhydramine HCl (Benadryl) 25 mg Q6H PRN PO pruritis Last administered on 02/23/17 23:43; Start 02/20/17 at 05:00 Albuterol Sulfate (Albuterol Neb) 2.5 mg Q2HR NEB PRN INH sob/wheezing; Start 02/20/17 at 05:00 Cyclobenzaprine HCl (Flexeril) 5 mg Q8H PRN PO muscle spasm; Start 02/20/17 at 05:00 Oxycodone/ Acetaminophen (Percocet 5-325 Mg) 1 tab Q4H PRN PO pain > 5 Last administered on 02/24/17 13:26; Start 02/20/17 at 05:00 Ferrous Sulfate (Ferrous Sulfate Liq) 300 mg DAILY@1200,1700 PO Last administered on 02/24/17 13:07; Start 02/20/17 at 12:00 Sodium Chloride 1,000 ml @ 0 mls/hr Q0M PRN OTHER For Prime & Rinse Back Last administered on 02/22/17 13:00; Start 02/20/17 at 09:11 Heparin Sodium (Porcine) (Heparin Inj) 8,000 units UNSCH PRN IV FLUSH WITH DIALYSIS; Start 02/20/17 at 09:15 Sodium Chloride 1,000 ml @ 200 mls/hr Q5H PRN IV WITH DIALYSIS; Start at 09:11 Sodium Chloride 1,000 ml @ 0 mls/hr Q0M PRN OTHER WITH DIALYSIS; Start at 09:11 Mannitol (Mannitol Inj) 12.5 gm UNSCH PRN IV WITH DIALYSIS; Start 02/20/17 at 09:15 Albumin Human 100 ml @ 60 mls/hr UNSCH PRN IV WITH DIALYSIS; Start 02/20/17 at 09:15 Sodium Chloride (NS Flush) 5 ml UNSCH PRN IV FLUSH WITH DIALYSIS; Start at 09:15 Heparin Sodium (Porcine) (Heparin Inj) UNSCH PRN .XX WITH DIALYSIS Last administered on 02/24/17t 10:58; Start 02/20/17 at 09:15 Gentamicin Sulfate (Gentamicin (Dialysis) Inj) 20 mg UNSCH PRN OTHER WITH DIALYSIS Last administered on 02/24/17t 10:57; Start 02/20/17 at 09:15 Ondansetron HCl (Zofran Inj) 4 mg UNSCH PRN IV PUSH WITH DIALYSIS; Start 02/20 at 09:15 Acetaminophen (Tylenol) 650 mg UNSCH PRN PO for headach, pain, temp > 101F; Start 02/20/17 at 09:15 Diphenhydramine HCl (Benadryl) 25 mg UNSCH PRN PO for hives/itching/anaphylaxis ; Start 02/20/17 at 09:15 Nitroglycerin (Nitrostat Sl) 0.4 mg UNSCH PRN SL CHEST PAIN; Start 02/20/17 at 09:15 Clonidine (Catapres) 0.1 mg UNSCH PRN PO for BP > 180/100 X 2 readings; Start 02/20/17 at 09:15 Epoetin Joe (Epogen Inj) 10,000 units UNSCH PRN IV PUSH WITH DIALYSIS Last administered on 02/22/17t 13:00; Start 02/20/17 at 09:15; Stop 02/23/17 at 10 :51; Status DC Gelatin (Gelfoam 12 Mm/7 Mm Top) 1 foam UNSCH PRN TOP SEE LABEL COMMENTS; Start 02/20/17 at 09:15 Albuterol/ Ipratropium (Duoneb Neb) 1 ampule QID NEB NEB Last administered on 02/24/17 07:48; Start 02/20/17 at 20:00 Darbepoetin Joe (Aranesp Inj) 40 mcg Q7D SQ ; Start 02/21/17 at 09:00; Stop 02/21/17 at 09:00; Status DC Sodium Chloride 250 ml @ 15 mls/hr ONCE ONCE IV ; Start 02/22/17 at 06:00; Stop 02/22/17 at 22:39; Status DC Furosemide (Lasix Inj) 20 mg ONCE ONCE IV PUSH ; Start 02/22/17 at 06:00; Stop 02/22/17 at 06:01; Status DC Iron Sucrose 100 mg/Sodium Chloride 105 ml @ 105 mls/hr DAILY IV Last administered on 02/24/17 13:07; Start 02/23/17 at 11:00; Stop 02/25/17 at 09 :59 Epoetin Joe (Epogen Inj) 14,000 units UNSCH PRN IV PUSH WITH DIALYSIS Last administered on 02/24/17 10:58; Start 02/23/17 at 11:00 Tiotropium [place] (Spiriva Inh) 18 mcg DAILY INH ; Start 02/24/17 at 09:00 A/P Problem List: (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 Fonseca is a 56 year old male who has had a very long and complicated history of present illness. He has a known medical history of coronary artery disease status post CABG and chronic kidney disease who initially presented to the hospital on November 22, 2016 with sepsis, anemia, acute renal failure, and extensive right lung pneumonia with cavitation and underwent a right thoracotomy with VATS, lysis of adhesions, and decortication for pulmonary infiltrate in right lung and COPD on 12/30 but developed right chest tube related bronchopleural fistula. He was transferred to [facility] in [place] for further management of persistent leak/bronchopleural fistula. He was discharged on 01/22/2017. He returned following treatment at [facility] on 02/19. Bronchopleural fistula History of Right thoracotomy with VATS Empyema lung with MRSA - status post multiple bronchoscopies with endotracheal valves and gluing performed at [facility] - Keep f/u appointment with IR physician Dr. Lopez 03/05 - continue Meropenem for 4 - 6 weeks (started 01/26) unless otherwise advised by ID. patient also on doxycycline continue with doxycycline. - ID consulted, Pulmonology consulted -Will need to try to set up outpatient home health with IV infusion but very difficult since patient is self paid. Acute on chronic hypoxia. -Most likely secondary to worsening of the empyema. Chest x-ray 02/22 showed right consolidation and patient also had increase purulent output and the chest tube. VQ scan suggests moderate probability but that is due to the consolidation. No suspicion for any PE. -CT surgery consulted stated at the moment no indication for any surgery. -At the moment increase dyspnea secondary to wheezing. Patient does have a history of COPD. Nurse told to call respiratory therapist to give nebulizer treatment now since he was not given any treatment today. will start Solu- Medrol. Continue continue to monitor clinically. Still waiting for chest x- ray. End-stage renal disease on hemodialysis - [facility] following. He is getting hemodialysis. -Per neuropsychology medical consultant patient will need a revision of the AV fistula next week. - Avoid nephrotoxins - Monitor electrolytes Anemia, iron deficiency vs CKD or combination -Continue with ferrous sulfate 300 mg liquid twice a day with vitamin C 500 mg twice a day administered at the same time. - continue Aranesp -Status post transfused 2 packs red blood cells on 02/22/2017 and responded appropriately. COPD, exacerbation on 02/24 - See treatment as above. - Continue Spiriva inhaler Malnutrition - Regular diet - Nepro one can 3 times a day between meals DVT prophylaxis - Patient reports being ambulatory - Recommend SCDs teds while in bed Discharge Planning patient will need senior care IV antibiotics and revision of AV fistula next week. Kami Duckworth MD Feb 24, 2017 13:50
[2017-02-24] MEDS: methylPREDNISolone SOD SUCC 40 MG/1 ML VIAL IV PUSH SCH ×2 (14:33→22:34)
--- NOTE | 2017-02-24 15:08 | RADRPT ---
EXAM DATE/TIME: 02/24/2017 14:46 [facility] COMPARISON: CHEST PA & LAT, February 22, 2017, 18:23. INDICATIONS : Shortness of breath. MEDICAL HISTORY : Chronic obstructive pulmonary disease. Cardiovascular disease. Hypertension. SURGICAL HISTORY : CABG. ENCOUNTER: Subsequent ACUITY: 2 weeks PAIN SCORE: 0/10 LOCATION: Bilateral chest FINDINGS: PA and lateral views of the chest demonstrate persistent dense infiltrate in the right upper lobe wit h a cavity laterally. Right-sided double lumen catheter in good position. Diffuse interstitial lung d isease on the left. Numerous sternal wires and clips suggest median sternotomy. Left-sided central li ne in good position. The cardiomediastinal contours are unremarkable. Osseous structures are intact . 2 right-sided chest tubes are in good position CONCLUSION: Dense infiltrate and with a cavity in the right upper lobe. Diffuse interstitial lung disease is unch anged. Central catheters in good position. Andre Montemayor MD on February 24, 2017 at 15:04 Board Certified Radiologist. This report was verified electronically.
--- NOTE | 2017-02-24 18:18 | HHI.PR ---
Subjective Remarks Has some Green drainage from chest tubes on Right. No Fever. Was Dialyzed. today . On O2 3 L. Objective Vital Signs Date Time Temp Pulse Resp B/P (MAP) Pulse Ox O2 Delivery O2 Flow Rate FiO2 02/24/17 16:00 98.6 87 20 138/76 (96) 92 02/24/17 13:34 Room Air 2.00 Humidified 02/24/17 08:00 98.3 83 20 147/87 (107) 95 02/24/17 07:48 94 Nasal Cannula 2.00 02/24/17 04:00 98.1 79 16 139/71 (93) 92 02/24/17 00:00 98.7 79 20 142/71 (94) 95 02/23/17 20:00 Nasal Cannula 2.00 02/23/17 20:00 98.4 85 20 135/80 (98) 93 I/O 02/23/17 02/23/17 02/23/17 02/24/17 02/24/17 02/24/17 07:00 15:00 23:00 07:00 15:00 23:00 Intake Total 360 ml 925 ml 460 ml 613.4 ml 100 ml Output Total 800 ml 250 ml 900 ml 1100 ml Balance -440 ml 675 ml -440 ml 613.4 ml -1000 ml Intake Oral 360 ml 820 ml 360 ml 500 ml IV Total 105 ml 100 ml 113.4 ml 100 ml Output Urine Total 800 ml 250 ml 900 ml 600 ml Hemodialysis 500 ml # Voids 3 # Bowel Movements 1 1 1 Result Diagram: 02/23/1754602/23/17 0547 Objective Remarks IN GENERAL: This is a middle-aged thinly built white male who is pale and not dyspneic at rest. VITAL SIGNS: Blood pressure 110/60, pulse is 80, respirations 24, temperature 97.5. HEAD, EYES, EARS, NOSE, AND THROAT: Head normocephalic. Pupils reactive. Tongue is moist. Throat was clear. Nasal mucosa injected. NECK: Supple. No bruits or thyroid enlargement. CHEST: Decreased breath sounds over the right chest with occasional wheezes in the right upper lung june.Chest Tubes in place in Right chest.Draining. HEART: The heart sounds are regular S1-S2. No murmur. ABDOMEN: The abdomen is soft, protuberant without masses or organomegaly or tenderness. Bowel sounds are active. EXTREMITIES: no edema. Peripheral pulses are diminished. NEUROLOGIC: Reflexes are 1+ with no gross motor deficits. SKIN: No lesions noted. Assessment and Plan Assessment and Plan IMPRESSION 1. Right bronchopleural fistula. 2. Empyema right chest. 3. Persistent air leak with history of pneumothorax. 4. COPD, chronic bronchitis or bronchiectasis. 5. End-stage renal disease on dialysis. Plan : 1. Will continue O2 at 2 L. 2. Nebs qid Duoneb. 3. Continue antibiotics per ID. 4. IS at bedside q2h. 5. Change chest wall dressings tid 6. Labs in am in am 7. To [facility] on 03/05. Alison Wilson MD Feb 24, 2017 18:18
--- NOTE | 2017-02-24 20:08 | HHI.PR ---
Subjective Remarks NOT SEEN Objective Vitals Vital Signs Date Time Temp Pulse Resp B/P (MAP) Pulse Ox O2 Delivery O2 Flow Rate FiO2 02/24/17 16:00 98.6 87 20 138/76 (96) 92 02/24/17 13:34 Room Air 2.00 Humidified 02/24/17 08:00 98.3 83 20 147/87 (107) 95 02/24/17 07:48 94 Nasal Cannula 2.00 02/24/17 04:00 98.1 79 16 139/71 (93) 92 02/24/17 00:00 98.7 79 20 142/71 (94) 95 I/O 02/23/17 02/23/17 02/23/17 02/24/17 02/24/17 02/24/17 06:59 14:59 22:59 06:59 14:59 22:59 Intake Total 360 ml 925 ml 460 ml 613.4 ml 100 ml Output Total 800 ml 250 ml 900 ml 1100 ml Balance -440 ml 675 ml -440 ml 613.4 ml -1000 ml Intake Oral 360 ml 820 ml 360 ml 500 ml IV Total 105 ml 100 ml 113.4 ml 100 ml Output Urine Total 800 ml 250 ml 900 ml 600 ml Hemodialysis 500 ml # Voids 3 # Bowel Movements 1 1 1 Result Diagram: 02/23/17 0547 02/23/17 0547 Imaging Last Impressions Chest X-Ray 02/24/17 0000 Signed Impressions: Service Date/Time: Friday, February 24, 2017 14:46 - CONCLUSION: Dense infiltrate and with a cavity in the right upper lobe. Diffuse interstitial lung disease is unchanged. Central catheters in good position. Andre Montemayor MD Lung Scan-V Nuclear Medicine 02/22/17 0000 Signed Impressions: Service Date/Time: Wednesday, February 22, 2017 18:56 - CONCLUSION: Intermediate probability for pulmonary embolism. 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 Fonseca is a 56 year old male who has had a very long and complicated history of present illness. He has a known medical history of coronary artery disease status post CABG and chronic kidney disease who initially presented to the hospital on November 22, 2016 with sepsis, anemia, acute renal failure, and extensive right lung pneumonia with cavitation and underwent a right thoracotomy with VATS, lysis of adhesions, and decortication for pulmonary infiltrate in right lung and COPD on 12/30 but developed right chest tube related bronchopleural fistula. He was transferred to [facility] in [place] for further management of persistent leak/bronchopleural fistula. He was discharged on 01/22/2017. He returned following treatment at [facility] on 02/19. Bronchopleural fistula History of Right thoracotomy with VATS Empyema lung with MRSA - status post multiple bronchoscopies with endotracheal valves and gluing performed at [facility] - Keep f/u appointment with IR physician Dr. Lopez 03/05 - continue Meropenem for 4 - 6 weeks (started 01/26) unless otherwise advised by ID. patient also on doxycycline continue with doxycycline. - ID consulted, Pulmonology consulted - Will need to try to set up outpatient home health with IV infusion but very difficult since patient is self pay Acute on chronic hypoxia. -Most likely secondary to worsening of the empyema. Chest x-ray 02/22 showed right consolidation and patient also had increase purulent output in the chest tube. VQ scan suggests moderate probability but that is due to the consolidation. No suspicion for any PE. -CT surgery consulted stated at the moment no indication for any surgery. -At the moment increase dyspnea secondary to wheezing. Patient does have a history of COPD. Nurse told to call respiratory therapist to give nebulizer treatment now since he was not given any treatment today. will start Solu- Medrol. Continue continue to monitor clinically. Repeat chest x-ray unchanged. End-stage renal disease on hemodialysis - Psych Nurse following. He is getting hemodialysis. -Per x ray control equipment repairer patient will need a revision of the AV fistula next week. - Avoid nephrotoxins - Monitor electrolytes Anemia, iron deficiency vs CKD or combination -Continue with ferrous sulfate 300 mg liquid twice a day with vitamin C 500 mg twice a day administered at the same time. - continue Aranesp -Status post transfused 2 packs red blood cells on 02/22/2017 and responded appropriately. COPD, exacerbation on 02/24 - See treatment as above. - Continue Spiriva inhaler Malnutrition - Regular diet - Nepro one can 3 times a day between meals DVT prophylaxis - Patient reports being ambulatory - Recommend SCDs teds while in bed Discharge Planning patient will need retirement IV antibiotics and revision of AV fistula next week. Raúl Palafox MD Feb 24, 2017 20:08
[2017-02-24] MEDS: PANTOPRAZOLE SOD 40 MG DELAYED RELEASE TAB PO SCH (22:34)
[2017-02-25] VITALS (8 sets, daily range): BP systolic 140–153; BP diastolic 77–95; PULSE 79–96; RESP 18–20; TEMP 97.2–98.3; O2SAT 90–98
[2017-02-25] MEDS: MEROPENEM 1000 MG/NS 100 ML IV SCH ×2 (04:29)
[2017-02-25 06:34] LABS: BICARBONATE 30.6 MEQ/L (21.0-32.0); POTASSIUM 4.5 MEQ/L (3.5-5.1)
[2017-02-25] MEDS: RESP: ALBUTEROL 2.5 MG/IPRATROPIUM 0.5 MG NEB (SCH) NEB ×4 (08:12→20:34)
[2017-02-25] MEDS: SEVELAMER CARBONATE 800 MG TAB PO SCH ×3 (08:54→18:10)
[2017-02-25] MEDS: methylPREDNISolone SOD SUCC 40 MG/1 ML VIAL IV PUSH SCH (08:56)
[2017-02-25] MEDS: FOLIC ACID 1 MG TAB PO SCH (08:57)
[2017-02-25] MEDS: CHOLECALCIFEROL (VIT D3) 1000 UNIT TAB PO SCH (08:57)
[2017-02-25] MEDS: MULTIVITAMIN TAB PO SCH (08:57)
[2017-02-25] MEDS: DOXYCYCLINE HYCLATE 100 MG CAP PO SCH ×2 (08:57→20:17)
[2017-02-25] MEDS: CARVEDILOL 12.5 MG TAB PO SCH ×2 (08:57→20:21)
[2017-02-25] MEDS: SODIUM CHLORIDE 0.9% FLUSH 10 ML FLUSH IV FLUSH SCH ×2 (08:58→20:16)
[2017-02-25] MEDS: IRON SUCROSE INJ 100 MG in SODIUM CHLORIDE 0.9% INJ 100 ML IV SCH (11:06)
--- NOTE | 2017-02-25 11:54 | HHI.PR ---
Subjective Remarks Follow-up COPD exacerbation. Improved shortness of breath and plating in the hallway. Complaining of fullness on the left side of his neck for several days. Denies swallowing difficulty. Discussed with RN and pulmonary. Objective Vitals Vital Signs Date Time Temp Pulse Resp B/P (MAP) Pulse Ox O2 Delivery O2 Flow Rate FiO2 02/25/17 08:14 96 Nasal Cannula 2.00 02/25/17 08:00 97.2 83 18 140/77 (98) 90 02/25/17 04:00 98.1 84 18 152/85 (107) 97 02/25/17 00:00 98.0 83 18 153/91 (111) 94 02/25/17 00:00 Nasal Cannula 2.00 Humidified 02/24/17 20:36 95 Nasal Cannula 2.00 02/24/17 20:00 98.4 87 20 139/87 (104) 95 02/24/17 20:00 Nasal Cannula 2.00 Humidified 02/24/17 16:00 98.6 87 20 138/76 (96) 92 02/24/17 13:34 Room Air 2.00 Humidified I/O 02/24/17 02/24/17 02/24/17 02/25/17 02/25/17 02/25/17 07:00 15:00 23:00 07:00 15:00 23:00 Intake Total 460 ml 613.4 ml 100 ml 340 ml Output Total 900 ml 1100 ml 500 ml Balance -440 ml 613.4 ml -1000 ml -160 ml Intake Oral 360 ml 500 ml 240 ml IV Total 100 ml 113.4 ml 100 ml 100 ml Output Urine Total 900 ml 600 ml 500 ml Hemodialysis 500 ml # Bowel Movements 1 1 4 Result Diagram: 02/23/17 0547 02/25/17 0544 Imaging Last Impressions Thyroid Ultrasound 02/25/17 0000 Signed Impressions: Service Date/Time: Saturday, February 25, 2017 13:26 - CONCLUSION: 1. Normal ultrasound examination of the thyroid gland. 2. Abnormal appearance of the left jugular vein with apparent flow adjacent to the jugular vein wall containing small amount of debris. Consider CTA/CTV examination for better characterization and to exclude possible AV fistula. Edenilson Villarreal MD Chest X-Ray 02/24/17 0000 Signed Impressions: Service Date/Time: Friday, February 24, 2017 14:46 - CONCLUSION: Dense infiltrate and with a cavity in the right upper lobe. Diffuse interstitial lung disease is unchanged. Central catheters in good position. Andre Montemayor MD Lung Scan-VQ Nuclear Medicine 02/22/17 0000 Signed Impressions: Service Date/Time: Wednesday, February 22, 2017 18:56 - CONCLUSION: Intermediate probability for pulmonary embolism. Vasu Barrientos MD Objective Remarks GENERAL: Well-developed, well-nourished in no distress SKIN: Warm and dry. Hemodialysis catheter right subclavian, central line left subclavian and 2 chest tubes right lung CARDIOVASCULAR: Regular rate and rhythm. RESPIRATORY: No accessory muscle use. Clear to auscultation. Breath sounds equal bilaterally. GASTROINTESTINAL: Abdomen soft, non-tender, nondistended. MUSCULOSKELETAL: Extremities without clubbing, cyanosis, or edema. No obvious deformities. NEUROLOGICAL: Awake and alert. No obvious cranial nerve deficits. Motor grossly within normal limits. Five out of 5 muscle strength in the arms and legs. Normal speech. PSYCHIATRIC: Appropriate mood and affect; insight and judgment normal. 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 Fonseca is a 56 year old male who has had a very long and complicated history of present illness. He has a known medical history of coronary artery disease status post CABG and chronic kidney disease who initially presented to the hospital on November 22, 2016 with sepsis, anemia, acute renal failure, and extensive right lung pneumonia with cavitation and underwent a right thoracotomy with VATS, lysis of adhesions, and decortication for pulmonary infiltrate in right lung and COPD on 12/30 but developed right chest tube related bronchopleural fistula. He was transferred to [facility] in [place] for further management of persistent leak/bronchopleural fistula. He was discharged on 01/22/2017. He returned following treatment at [facility] on 02/19. Bronchopleural fistula History of Right thoracotomy with VATS Empyema lung with MRSA - status post multiple bronchoscopies with endotracheal valves and gluing performed at [facility] - Keep f/u appointment with IR physician Dr. Lopez 03/05 - continue Meropenem for 4 - 6 weeks (started 01/26) unless otherwise advised by ID. patient also on doxycycline - ID consulted, Pulmonology consulted - Will need to try to set up outpatient home health with IV infusion but very difficult since patient is self pay - Left neck fullness. TSH unremarkable. Thyroid sonogram with normal examination of the thyroid gland but abnormal appearance of the left jugular vein with apparent flow adjacent to the jugular vein wall containing small amount of debris. Radiology recommends CTA/CTV to exclude possible AV fistula. We will alert cardiothoracic surgery Acute on chronic hypoxia. -Most likely secondary to worsening of the empyema. Chest x-ray 02/22 showed right consolidation and patient also had increase purulent output in the chest tube. VQ scan suggests moderate probability but that is due to the consolidation. No suspicion for any PE. -CT surgery consulted stated at the moment no indication for any surgery. -At the moment dyspnea secondary to wheezing improved. Patient does have a history of COPD. switch to by mouth prednisone. Continue continue to monitor clinically. Repeat chest x-ray unchanged. 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 He is getting hemodialysis. -Per hopper operator patient will need a revision of the AV fistula next week. - Avoid nephrotoxins - Monitor electrolytes Anemia, iron deficiency vs CKD or combination -Continue with ferrous sulfate 300 mg liquid twice a day with vitamin C 500 mg twice a day administered at the same time. - continue Aranesp -Status post transfused 2 packs red blood cells on 02/22/2017 and responded appropriately. Malnutrition - Regular diet - Nepro one can 3 times a day between meals DVT prophylaxis - Patient reports being ambulatory - Recommend SCDs teds while in bed Discharge Planning patient will need director long term care IV antibiotics and revision of AV fistula next week. Raúl Palafox MD Feb 25, 2017 11:54
[2017-02-25] MEDS: FERROUS SULFATE 300 MG /5ML UDC PO SCH ×2 (12:00→18:10)
[2017-02-25] MEDS: ASCORBIC ACID 500 MG TAB PO SCH ×2 (12:00→18:11)
--- NOTE | 2017-02-25 12:48 | HHI.PR ---
Subjective Remarks Has some drainage from chest tubes on Right. No Fever. Was Dialyzed. last am . On O2 3 L. Objective Vital Signs Date Time Temp Pulse Resp B/P (MAP) Pulse Ox O2 Delivery O2 Flow Rate FiO2 02/25/17 08:14 96 Nasal Cannula 2.00 02/25/17 08:00 97.2 83 18 140/77 (98) 90 02/25/17 04:00 98.1 84 18 152/85 (107) 97 02/25/17 00:00 98.0 83 18 153/91 (111) 94 02/25/17 00:00 Nasal Cannula 2.00 Humidified 02/24/17 20:36 95 Nasal Cannula 2.00 02/24/17 20:00 98.4 87 20 139/87 (104) 95 02/24/17 20:00 Nasal Cannula 2.00 Humidified 02/24/17 16:00 98.6 87 20 138/76 (96) 92 02/24/17 13:34 Room Air 2.00 Humidified I/O 02/24/17 02/24/17 02/24/17 02/25/17 02/25/17 02/25/17 07:00 15:00 23:00 07:00 15:00 23:00 Intake Total 460 ml 613.4 ml 100 ml 340 ml Output Total 900 ml 1100 ml 500 ml Balance -440 ml 613.4 ml -1000 ml -160 ml Intake Oral 360 ml 500 ml 240 ml IV Total 100 ml 113.4 ml 100 ml 100 ml Output Urine Total 900 ml 600 ml 500 ml Hemodialysis 500 ml # Bowel Movements 1 1 4 Result Diagram: 02/23/17 0547 02/25/17 0544 Objective Remarks IN GENERAL: This is a middle-aged thinly built white male who is pale and not dyspneic at rest. HEAD, EYES, EARS, NOSE, AND THROAT: Head normocephalic. Pupils reactive. Tongue is moist. Throat was clear. Nasal mucosa injected. NECK: Supple. No bruits or thyroid enlargement. CHEST: Decreased breath sounds over the right chest with occasional wheezes in the right upper lung june.Chest Tubes in place in Right chest. HEART: The heart sounds are regular S1-S2. No murmur. ABDOMEN: The abdomen is soft, protuberant without masses or organomegaly or tenderness. Bowel sounds are active. EXTREMITIES: no edema. Peripheral pulses are diminished. NEUROLOGIC: Reflexes are 1+ with no gross motor deficits. SKIN: No lesions noted. Assessment and Plan Assessment and Plan IMPRESSION 1. Right bronchopleural fistula. 2. Empyema right chest. 3. Persistent air leak with history of pneumothorax. 4. COPD, chronic bronchitis or bronchiectasis. 5. End-stage renal disease on dialysis. Plan : 1. Will continue O2 at 2 L. 2. Nebs qid Duoneb. 3. Continue antibiotics per ID. 4. IS at bedside q2h. 5. Change chest wall dressings tid 6. Labs in am. 7.To [facility] on 03/05.For Revision of Bronchial valve Alison Wilson MD Feb 25, 2017 12:48
--- NOTE | 2017-02-25 13:18 | HHI.NPPN ---
Subjective General Problems: Anemia Renal Failure: Chronic, End Stage Renal Disease Interval History No acute changes. Dialyzed yesterday. (Milla Pack) Review of Systems General Constitutional: Fatigue (Milla Pack) Objective Data Data Vital Signs Date Time Temp Pulse Resp B/P (MAP) Pulse Ox O2 Delivery O2 Flow Rate FiO2 02/25/17 08:14 96 Nasal Cannula 2.00 02/25/17 08:00 97.2 83 18 140/77 (98) 90 02/25/17 04:00 98.1 84 18 152/85 (107) 97 02/25/17 00:00 98.0 83 18 153/91 (111) 94 02/25/17 00:00 Nasal Cannula 2.00 Humidified 02/24/17 20:36 95 Nasal Cannula 2.00 02/24/17 20:00 98.4 87 20 139/87 (104) 95 02/24/17 20:00 Nasal Cannula 2.00 Humidified 02/24/17 16:00 98.6 87 20 138/76 (96) 92 02/24/17 13:34 Room Air 2.00 Humidified (Milla Pack) -: 02/23/17 0547 02/25/17 0544 Imaging Last 72 hours Impressions Chest X-Ray 02/24/17 0000 Signed Impressions: Service Date/Time: Friday, February 24, 2017 14:46 - CONCLUSION: Dense infiltrate and with a cavity in the right upper lobe. Diffuse interstitial lung disease is unchanged. Central catheters in good position. Andre Montemayor MD Tubes & Lines: Perma-Cath (Milla Pack) Physical Exam General Appearance: Well Developed, No Acute Distress, Comfortable, Pale, Malnourished (Milla Pack) Eyes Eye Exam: Pupils Equal (Milla Pack) Throat Throat Exam: Oral Mucosa [place] & Moist (Milla Pack) Neck Neck Exam: Neck Supple (Milla Pack) Pulmonary Resp Exam: Breath Sounds Equal, Crackles, Decreased Bases (Milla Pack) Cardiology CV Exam: Regular, Normal Sinus Rhythm (Milal Pack) Gastrointestinal/Abdomen GI Exam: Soft, Non-Tender, Bowel Sounds Present (Milla Pack) Musculoskeletal MS Exam: Joints Intact, Good Strength (Milla Pack) Integumentary Skin Exam: Clear, Warm, Dry, Intact (Milla Pack) Extremeties Extremities Exam: No Edema, Pedal Pulses Palpable (Milla Pack) Neurologic Neuro Exam: Alert, Awake, Oriented, Speech Clear (Milla Pack) Assessment/Plan Discussed Condition With: Patient Assessment Summary: Anemia of CKD, Hypertension, End Stage Renal Disease Problem List: (1) ESRD (end stage renal disease) on dialysis ICD Codes: N18.6 - End stage renal disease; Z99.2 - Dependence on renal dialysis Plan: Continue HD support, yesterday tolerated well Minimal fluid removal with treatment. Next HD Thursday He still makes urine Monitor electrolytes Avoid excess IVF On Renvela for metabolic bone disorder; dosage reduced PTH is not elevated Will need AVF revision, will consult Dr. Pyle to evaluate after the holiday (2) Malnutrition ICD Codes: E46 - Malnutrition Status: Acute Plan: High protein diet, add supplements (3) Empyema lung ICD Codes: J86.9 - Pyothorax without fistula Plan: On meropenem and doxycycline Monitor the patient clinically (4) Anemia ICD Codes: D64.9 - Anemia Status: Chronic Plan: On Epogen with HD, high dose Off Aranesp Transfused since admission Start Venofer IV Plan (Milla Pack) Plan patient was seen and examined. Agree with above assessment and plan. (Jim Zuluaga MD) Milla Pack Feb 25, 2017 13:18 Jim Zuluaga MD Feb 26, 2017 07:25
--- NOTE | 2017-02-25 14:08 | RADRPT ---
EXAM DATE/TIME: 02/25/2017 13:26 [facility] COMPARISON: CHEST SINGLE AP, January 02, 2017, 12:15. INDICATIONS : Left neck fullness. MEDICAL HISTORY : Myocardial infarction. Hypertension. Chronic obstructive pulmonary disease. Ulcer. Renal failure. MRS A. SURGICAL HISTORY : A-V shunt, left arm. Bone marrow harvest. ENCOUNTER: Initial ACUITY: 2 days PAIN SCORE: 3/10 LOCATION: Bilateral neck MEASUREMENTS: RIGHT LOBE: 1.1 x 2.1 x 5.5 cm LEFT LOBE: 1.4 x 2.1 x 4.7 cm FINDINGS: RIGHT LOBE: Homogeneous echotexture without nodules or cysts. Vascularity is within normal limits. LEFT LOBE: Homogeneous echotexture without nodules or cysts. Vascularity is within normal limits. ISTHMUS: Normal in size without focal abnormality. Left jugular vein is abnormal in contour and size. There is flow demonstrated adjacent to the jugular vein wall containing small amount of debris. CONCLUSION: 1. Normal ultrasound examination of the thyroid gland. 2. Abnormal appearance of the left jugular vein with apparent flow adjacent to the jugular vein wall containing small amount of debris. Consider CTA/CTV examination for better characterization and to ex clude possible AV fistula. Edenilson Villarreal MD on February 25, 2017 at 14:01 Board Certified Radiologist. This report was verified electronically.
--- NOTE | 2017-02-25 14:20 | PD.CAR.PN ---
CVT Progress Note Subjective/Hospital Course: 56-year-old patient well known to our service who had undergone right thoracotomy and video-assisted thoracoscopy, biopsy right upper lobe infiltrate , pleurodesis on 12/30. Apparently the patient had extensive fibrotic lung with bronchiectasis of the right upper lobe. 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 He was then transferred to [facility] in [place] due to bronchopleural fistula, persistent air leak with partially loculated hydropneumothorax. He was transferred for placement of endobronchial valves. He underwent bronchoscopy, endobronchial valve placement 01/26/2017, repeat bronch on the , then he had further endobronchial valves place with gluing that had no air leak for a couple of days, then the air leak recurred. Subsequently they ended up having a second chest tube that was placed. On the he had #24-Nepali Thal-Quick chest tube on the right lower lateral chest wall. These were converted to empyema tubes and left open and resutured and resutured in with safety clips for protection and dry dressing for drainage. They continued to drain. The patient does have a follow-up visit with Dr. Cody Magallanes on 03/05/2017 at [facility]. They were recommended for doxycycline for 4-6 weeks and also meropenem 4-6 weeks. The patient was also sent back to get established for hemodialysis in a local center. He is receiving dialysis today. The cultures grew MRSA, Pseudomonas, Streptococcus viridans. 02/25 pt continues on IV antibiotics, chest tubes x 2 draining as above, daily dressing changes no surgical intervention or change in therapy at this time, pt has appointment with Dr Lopez in [place] 03/05 for re-eval of empyema tubes will see prn Objective: Vital Signs Date Time Temp Pulse Resp B/P (MAP) Pulse Ox O2 Delivery O2 Flow Rate FiO2 02/25/17 08:14 96 Nasal Cannula 2.00 02/25/17 08:00 97.2 83 18 140/77 (98) 90 02/25/17 04:00 98.1 84 18 152/85 (107) 97 02/25/17 00:00 98.0 83 18 153/91 (111) 94 02/25/17 00:00 Nasal Cannula 2.00 Humidified 02/24/17 20:36 95 Nasal Cannula 2.00 02/24/17 20:00 98.4 87 20 139/87 (104) 95 02/24/17 20:00 Nasal Cannula 2.00 Humidified 02/24/17 16:00 98.6 87 20 138/76 (96) 92 Labs: Laboratory Tests Test 02/25/17 05:44 Blood Urea Nitrogen 38 MG/DL (7-18) Creatinine 4.59 MG/DL (0.60-1.30) Random Glucose 133 MG/DL (74-106) Albumin 2.4 GM/DL (3.4-5.0) Calcium Level 8.8 MG/DL (8.5-10.1) Phosphorus Level 3.1 MG/DL (2.5-4.9) Sodium Level 142 MEQ/L (136-145) Potassium Level 4.5 MEQ/L (3.5-5.1) Chloride Level 103 MEQ/L (98-107) Carbon Dioxide Level 30.6 MEQ/L (21.0-32.0) Anion Gap 8 MEQ/L (5-15) Estimat Glomerular Filtration Rate 13 ML/MIN (>89) Thyroid Stimulating Hormone 3rd Gen 0.556 uIU/ML (0.358-3.740) Result Diagram: 02/23/17 0547 02/25/17 0544 [facility] Feb 25, 2017 14:20
--- NOTE | 2017-02-25 16:11 | HHI.IDPN ---
Subjective Subjective Remarks Doing much better states solumedrol is really helpful no fever on NC O2 Antibiotics meropenem doxycyline Allergies: Coded Allergies: No Known Allergies (Unverified Allergy, Unknown, 02/20/17) linezolid (Verified Adverse Reaction, Severe, 02/20/17) thrombocytopenia vancomycin (Verified Adverse Reaction, Intermediate, 02/20/17) red man's syndrome Objective . Vital Signs Date Time Temp Pulse Resp B/P (MAP) Pulse Ox O2 Delivery O2 Flow Rate FiO2 02/25/17 08:14 96 Nasal Cannula 2.00 02/25/17 08:00 97.2 83 18 140/77 (98) 90 02/25/17 04:00 98.1 84 18 152/85 (107) 97 02/25/17 00:00 98.0 83 18 153/91 (111) 94 02/25/17 00:00 Nasal Cannula 2.00 Humidified 02/24/17 20:36 95 Nasal Cannula 2.00 02/24/17 20:00 98.4 87 20 139/87 (104) 95 02/24/17 20:00 Nasal Cannula 2.00 Humidified . Laboratory Tests Test 02/24/17 20:40 02/25/17 05:44 Parathyroid Hormone (Intact) 27.0 PG/ML Blood Urea Nitrogen 38 MG/DL Creatinine 4.59 MG/DL Random Glucose 133 MG/DL Albumin 2.4 GM/DL Calcium Level 8.8 MG/DL Phosphorus Level 3.1 MG/DL Sodium Level 142 MEQ/L Potassium Level 4.5 MEQ/L Chloride Level 103 MEQ/L Carbon Dioxide Level 30.6 MEQ/L Anion Gap 8 MEQ/L Estimat Glomerular Filtration Rate 13 ML/MIN Thyroid Stimulating Hormone 3rd Gen 0.556 uIU/ML Imaging Last Impressions Thyroid Ultrasound 02/25/17 0000 Signed Impressions: Service Date/Time: Saturday, February 25, 2017 13:26 - CONCLUSION: 1. Normal ultrasound examination of the thyroid gland. 2. Abnormal appearance of the left jugular vein with apparent flow adjacent to the jugular vein wall containing small amount of debris. Consider CTA/CTV examination for better characterization and to exclude possible AV fistula. Edenilson Villarreal MD Chest X-Ray 02/24/17 0000 Signed Impressions: Service Date/Time: Friday, February 24, 2017 14:46 - CONCLUSION: Dense infiltrate and with a cavity in the right upper lobe. Diffuse interstitial lung disease is unchanged. Central catheters in good position. Andre Montemayor MD Lung Scan-V Nuclear Medicine 02/22/17 0000 Signed Impressions: Service Date/Time: Wednesday, February 22, 2017 18:56 - CONCLUSION: Intermediate probability for pulmonary embolism. Vasu Barrientos MD Physical Exam CONSTITUTIONAL/GENERAL: This is a thinm emaciated chroniclly ill appearing patient, in no apparent distress. TUBES/LINES/DRAINS: Permacath in place R chest SKIN: No jaundice, rashes, or lesions. . Skin temperature appropriate. Not diaphoretic. CARDIOVASCULAR: Regular rate and rhythm without murmurs, gallops, or rubs. No JVD. Peripheral pulses symmetric. RESPIRATORY/CHEST: Symmetric, unlabored respirations. R side with prominent rhonchi to auscultation. Decreased BS on R Breath sounds equal bilaterally. Dressing in place GASTROINTESTINAL: Abdomen soft, non-tender, nondistended. No hepato-splenomegaly , or palpable masses. No guarding. Bowel sounds present. GENITOURINARY: Without palpable bladder distension. MUSCULOSKELETAL: Extremities without clubbing, cyanosis, or edema. No joint tenderness or effusion noted. No calf tenderness. No mottling or clubbing. NEUROLOGICAL: Awake and alert. Non focal PSYCHIATRIC:calm, normal affect Assessment & Plan Remarks BP fistula and polimicrobial empyema : PSAE (MDRO) , MRSA, strep viridans and Sean frag sp CT drainage and endobronchial valve placement ESRD/HD Allergic to vancomycin, developped thrombocytopenia to zyvox cont meropenem and doxycyline x 6 weeks total (start day was 01/26) If clinical response is not adequate will need to recheck his culture will dw Dr Cheung re further tx plan Paz Fontanez MD Feb 25, 2017 16:11
[2017-02-25] MEDS: predniSONE 20 MG TAB PO SCH (18:10)
[2017-02-25] MEDS: PANTOPRAZOLE SOD 40 MG DELAYED RELEASE TAB PO SCH (20:16)
[2017-02-26] VITALS (8 sets, daily range): BP systolic 129–158; BP diastolic 74–95; PULSE 72–85; RESP 18–20; TEMP 97.1–98.2; O2SAT 94–98
[2017-02-26] MEDS: MEROPENEM 1000 MG/NS 100 ML IV SCH ×2 (05:00)
[2017-02-26] MEDS: RESP: ALBUTEROL 2.5 MG/IPRATROPIUM 0.5 MG NEB (SCH) NEB ×4 (08:00→19:38)
[2017-02-26] MEDS: FOLIC ACID 1 MG TAB PO SCH (08:22)
[2017-02-26] MEDS: MULTIVITAMIN TAB PO SCH (08:22)
[2017-02-26] MEDS: CARVEDILOL 12.5 MG TAB PO SCH ×2 (08:22→21:08)
[2017-02-26] MEDS: SEVELAMER CARBONATE 800 MG TAB PO SCH ×3 (08:22→16:32)
[2017-02-26] MEDS: CHOLECALCIFEROL (VIT D3) 1000 UNIT TAB PO SCH (08:23)
[2017-02-26] MEDS: DOXYCYCLINE HYCLATE 100 MG CAP PO SCH ×2 (08:23→21:00)
[2017-02-26] MEDS: SODIUM CHLORIDE 0.9% FLUSH 10 ML FLUSH IV FLUSH SCH ×2 (08:23→21:07)
[2017-02-26] MEDS: FERROUS SULFATE 300 MG /5ML UDC PO SCH ×2 (11:49→16:32)
[2017-02-26] MEDS: ASCORBIC ACID 500 MG TAB PO SCH ×2 (11:49→16:31)
--- NOTE | 2017-02-26 14:29 | HHI.PR ---
Subjective Remarks Follow-up COPD exacerbation. Denies shortness of breath, swallowing difficulty. Discussed with radiology, thyroid sonogram reviewed possible carotid jugular fistula Objective Vitals Vital Signs Date Time Temp Pulse Resp B/P (MAP) Pulse Ox O2 Delivery O2 Flow Rate FiO2 02/26/17 12:00 97.9 72 18 129/74 (92) 98 02/26/17 08:57 Nasal Cannula 2.00 02/26/17 08:02 98 Nasal Cannula 2.00 02/26/17 08:00 97.4 79 18 158/95 (116) 96 02/26/17 04:00 98.1 76 18 136/80 (98) 98 02/26/17 00:00 Nasal Cannula 2.00 02/26/17 00:00 97.9 79 20 142/87 (105) 97 02/25/17 20:37 98 Nasal Cannula 2.00 02/25/17 20:00 97.4 79 20 148/91 (110) 93 02/25/17 20:00 Nasal Cannula 2.00 02/25/17 16:00 98.3 87 18 152/95 (114) 94 I/O 02/25/17 02/25/17 02/25/17 02/26/17 02/26/17 02/26/17 07:00 15:00 23:00 07:00 15:00 23:00 Intake Total 340 ml 720 ml 240 ml Output Total 500 ml 900 ml 300 ml Balance -160 ml -180 ml -60 ml Intake Oral 240 ml 720 ml 240 ml IV Total 100 ml Output Urine Total 500 ml 900 ml 300 ml # Bowel Movements 4 1 0 Result Diagram: 02/23/17 0547 02/25/17 0544 Imaging Last Impressions Thyroid Ultrasound 02/25/17 0000 Signed Impressions: Service Date/Time: Saturday, February 25, 2017 13:26 - CONCLUSION: 1. Normal ultrasound examination of the thyroid gland. 2. Abnormal appearance of the left jugular vein with apparent flow adjacent to the jugular vein wall containing small amount of debris. Consider CTA/CTV examination for better characterization and to exclude possible AV fistula. Edenilson Villarreal MD Chest X-Ray 02/24/17 0000 Signed Impressions: Service Date/Time: Friday, February 24, 2017 14:46 - CONCLUSION: Dense infiltrate and with a cavity in the right upper lobe. Diffuse interstitial lung disease is unchanged. Central catheters in good position. Andre Montemayor MD Lung Scan-VQ Nuclear Medicine 02/22/17 0000 Signed Impressions: Service Date/Time: Wednesday, February 22, 2017 18:56 - CONCLUSION: Intermediate probability for pulmonary embolism. Vasu Barrientos MD Objective Remarks GENERAL: Well-developed, well-nourished in no distress SKIN: Warm and dry. Hemodialysis catheter right subclavian, central line left subclavian and 2 chest tubes right lung Neck: Fullness left neck CARDIOVASCULAR: Regular rate and rhythm. RESPIRATORY: No accessory muscle use. Clear to auscultation. Breath sounds equal bilaterally. GASTROINTESTINAL: Abdomen soft, non-tender, nondistended. MUSCULOSKELETAL: Extremities without clubbing, cyanosis, or edema. No obvious deformities. NEUROLOGICAL: Awake and alert. No obvious cranial nerve deficits. Motor grossly within normal limits. Five out of 5 muscle strength in the arms and legs. Normal speech. PSYCHIATRIC: Appropriate mood and affect; insight and judgment normal. 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 Fonseca is a 56 year old male who has had a very long and complicated history of present illness. He has a known medical history of coronary artery disease status post CABG and chronic kidney disease who initially presented to the hospital on November 22, 2016 with sepsis, anemia, acute renal failure, and extensive right lung pneumonia with cavitation and underwent a right thoracotomy with VATS, lysis of adhesions, and decortication for pulmonary infiltrate in right lung and COPD on 12/30 but developed right chest tube related bronchopleural fistula. He was transferred to [facility] in [place] for further management of persistent leak/bronchopleural fistula. He was discharged on 01/22/2017. He returned following treatment at [facility] on 02/19. Bronchopleural fistula History of Right thoracotomy with VATS Empyema lung with MRSA - status post multiple bronchoscopies with endotracheal valves and gluing performed at [facility] - Keep f/u appointment with IR physician Dr. Lopez 03/05 - continue Meropenem for 4 - 6 weeks (started 01/26) unless otherwise advised by ID. patient also on doxycycline - ID consulted, Pulmonology consulted - Will need to try to set up outpatient home health with IV infusion but very difficult since patient is self pay Left neck fullness. TSH unremarkable. Thyroid sonogram with normal examination of the thyroid gland but abnormal appearance of the left jugular vein with apparent flow adjacent to the jugular vein wall containing small amount of debris. Radiology recommends CTA/CTV to exclude possible AV fistula. Discussed with radiology, possible carotid jugular fistula. Consult vascular surgery Acute on chronic hypoxia. -Most likely secondary to worsening of the empyema. Chest x-ray 02/22 showed right consolidation and patient also had increase purulent output in the chest tube. VQ scan suggests moderate probability but that is due to the consolidation. No suspicion for any PE. -CT surgery consulted stated at the moment no indication for any surgery. -COPD Exacerbation continue prednisone End-stage renal disease on hemodialysis - [facility] following. He is getting hemodialysis. -Per tow mate patient will need a revision of the AV fistula next week. - Avoid nephrotoxins - Monitor electrolytes Anemia, iron deficiency vs CKD or combination -Continue with ferrous sulfate 300 mg liquid twice a day with vitamin C 500 mg twice a day administered at the same time. - continue Aranesp -Status post transfused 2 packs red blood cells on 02/22/2017 and responded appropriately. Malnutrition - Regular diet - Nepro one can 3 times a day between meals DVT prophylaxis - Patient reports being ambulatory - Recommend SCDs teds while in bed Discharge Planning patient will need fdc IV antibiotics and revision of AV fistula next week. Raúl Palafox MD Feb 26, 2017 14:29
[2017-02-26] MEDS: predniSONE 20 MG TAB PO SCH (16:31)
[2017-02-26] MEDS: PANTOPRAZOLE SOD 40 MG DELAYED RELEASE TAB PO SCH (21:06)
[2017-02-27] VITALS (8 sets, daily range): BP systolic 125–187; BP diastolic 72–105; PULSE 77–88; RESP 18–22; TEMP 97.6–99; O2SAT 94–99
[2017-02-27] MEDS: MEROPENEM 1000 MG/NS 100 ML IV SCH ×2 (05:28)
[2017-02-27] MEDS: SEVELAMER CARBONATE 800 MG TAB PO SCH ×3 (08:00→18:40)
--- NOTE | 2017-02-27 09:43 | PD.VS.CON ---
History of Present Illness Chief Complaint: possible carotid-jugular AVF Consult Requested by: medical service History of Present Illness 56 yo male with multiple comorbidities admitted with SOB likely related to bronchopleural fistula. Had a thyroid ultrasound that showed a possible AVF between then jugular and carotid artery. The patient notes that he was adm with SOB but that has improved with steroid administration. No headaches, neck pain or neurological symptoms. Was noticed to have mild L neck fullness on exam but pt denies at present Past/Family/Social History Past Medical History HTN ESRD CAD empyema COPD gastric ulcer bronchopleural fistula Past Surgical History CABG L UE AVF (Sept by in) - 1st stage BB AVF R thoracotomy and decortication Family History NC Home Medications Active Scripts Cholecalciferol (D 1000) 1,000 Unit Tab, 2000 UNITS PO DAILY for vitamin, #30 TAB Prov:Marly Heart 01/13/17 Ascorbic Acid (C 500/Justine Hips) 500 Mg Tab, 500 MG PO BID@1200,1700 for vitamin , #30 TAB Prov:Marly Heart 01/13/17 Prednisone (Prednisone) 10 Mg Tab, 10 MG PO DAILY for steroid, #10 TAB Prov:Marly Heart 01/13/17 Pantoprazole (Pantoprazole) 40 Mg Tab, 40 MG PO HS for GERD, #30 TAB Prov:Marly Heart 01/13/17 Polyethylene Glycol 3350 Powder (Polyethylene Glycol 3350 Powder) 17 Gram Pow, 17 GM PO DAILY for Constipation, #30 PACK Prov:Marly Heart 01/13/17 Docusate Sodium (Dok) 100 Mg Cap, 100 MG PO BID for Constipation, #60 CAP Prov:Marly Heart 01/13/17 Budesonide Neb (Pulmicort Respules) 0.5 Mg/2 Ml Neb, 0.5 MG NEB BID NEB for COPD , #30 NEBULE 0 Refills Prov:Marly Heart 01/13/17 Sevelamer Carbonate (Renvela) 800 Mg Tab, 1600 MG PO TIDAC for renal pt , #30 TAB Prov:Marly Heart 01/13/17 Hydrocodone-Acetaminophen (Hydrocodone-Acetaminophen) 5-325 mg Tab, 1 TAB PO Q4H Y for PAIN SCALE 1 TO 5, #10 TAB 0 Refills Prov:Marly Heart 01/13/17 Epoetin Inj (Epogen Inj) 4,000 Unit/Ml Inj, 4000 UNITS IV UNSCH Y for WITH DIALYSIS, #1 INJECTION Prov:Marly Heart 01/13/17 Heparin Inj (Heparin Inj) 10,000 Units/10 Ml Inj, 0 UNITS .XX UNSCH Y for WITH DIALYSIS, #1 INJECTION Prov:Marly Heart 01/13/17 Enoxaparin Inj (Lovenox Inj) 30 Mg/0.3 Ml Syr, 30 MG SQ EVERY OTHER DAY for Blood Clot Prevention, #1 INJECTION Prov:Marly Heart 01/13/17 Ferrous Sulfate (Ferosul) 325 Mg (65 Mg Iron) Tablet, 325 MG PO BID@,17 for anemia, #60 TAB Prov:Marly Heart 01/13/17 Albumin Human Inj (Flexbumin Inj) 0.25 Gm/Ml Soln, 25 GM IV UNSCH Y for WITH DIALYSIS, #1 INJECTION Prov:Marly Heart 01/13/17 Ipratropium-Albuterol Neb (Duoneb) 0.5-2.5 Mg/3 Ml Neb, 1 AMPULE NEB Q4HR NEB Y for SHORTNESS OF BREATH, #1 ML Prov:Marly Heart 01/13/17 Gentamicin Inj (Gentamicin Inj) 20 Mg/2 Ml Inj, 20 MG IV UNSCH Y for WITH DIALYSIS, #1 INJECTION Prov:Marly Heart 01/13/17 Diphenhydramine HCl (Benadryl Allergy) 25 Mg Cap, 25 MG PO Q8H Y for itching, # 30 CAP dialysis Prov:Marly Heart 01/13/17 Reported Medications Darbepoetin Joe Inj (Aranesp (Albumin Free) Inj) 150 Mcg/0.3 Ml Inj, SQ Q7D for Anemia, INJECTION 0 Refills 02/20/17 Meropenem Inj (Merrem Inj) 1 Gram Inj, 1000 MG IV Q24H, VIAL Infuse over 30 minutes 02/20/17 Tiotropium Inh (Spiriva Handihaler) 18 Mcg Cap, 18 MCG INH BID for COPD, #30 CAP 0 Refills 1 capsule = 18 mcg 02/20/17 Doxycycline Hyclate (Vibramycin) 100 Mg Cap, 100 MG PO BID for Infection, CAP 0 Refills 02/20/17 Meropenem Inj (Merrem Inj) 1 Gram Inj, 1000 MG IV Q24H, VIAL Infuse over 30 minutes 02/20/17 Cyclobenzaprine (Flexeril) 5 Mg Tab, 5 MG PO TID for Muscle Spasm, #90 TAB 0 Refills 02/20/17 Carvedilol (Coreg) 25 Mg Tab, 25 MG PO BID, #60 TAB 0 Refills 02/20/17 B-Complex Vitamins (B Complex) 1 Cap, 1 CAP PO DAILY for Nutritional Supplement , #30 CAP 0 Refills 11/22/16 Folic Acid (Folic Acid) 400 Mcg Tab, 400 MCG PO DAILY for Nutritional Supplement , TAB 0 Refills 11/22/16 Coded Allergies: No Known Allergies (Unverified Allergy, Unknown, 02/20/17) linezolid (Verified Adverse Reaction, Severe, 02/20/17) thrombocytopenia vancomycin (Verified Adverse Reaction, Intermediate, 02/20/17) red man's syndrome Review of Systems Constitutional: COMPLAINS OF: Fatigue, Chills Respiratory: COMPLAINS OF: Shortness of breath Cardiovascular: DENIES: Chest pain Neurologic: COMPLAINS OF: Poor Balance, DENIES: Headache Psychiatric: COMPLAINS OF: Anxiety Physical Exam Vitals/I&O Date Time Temp Pulse Resp B/P (MAP) Pulse Ox O2 Delivery O2 Flow Rate FiO2 02/27/17 08:23 99 Nasal Cannula 2.00 02/27/17 08:00 97.9 77 18 187/105 (132) 97 02/27/17 04:57 97.6 88 22 138/78 (98) 99 02/27/17 00:36 97.8 78 20 125/72 (89) 96 02/26/17 21:22 98.2 85 20 155/89 (111) 94 02/26/17 21:00 Nasal Cannula 2.00 02/26/17 16:00 97.1 79 18 150/90 (110) 96 02/26/17 15:14 98 Nasal Cannula 2.00 02/26/17 12:00 97.9 72 18 129/74 (92) 98 02/27/17 02/27/17 02/27/17 07:00 15:00 23:00 Intake Total 240 ml Output Total 1200 ml Balance -960 ml Neuro: Thin male, no distress moving all extremities HEENT: NC/AT; anicteric sclera Neck: L neck slightly full; no bruit appreciated Heart: reg rate Lungs: diminished R Extremities: L UE without thrill Assessment and Plan Plan 1. Probably asymptomatic or non-existent carotid-jugular AVF. Pt doesnt have significant puncture buchanan (prior CVL etc) on L neck but given extensive medical /surgical history I am sure he has had L IJ Access. Nevertheless, he appears to be asymptomatic. If SOB, L neck fullness, L sided [place], etc then would get CTA neck. Would not offer therapy at present given asymptomatic 2. L UE AVF likely occluded. Will need new access as outpatient. Will follow. Clarence Pyle MD FACS RPVI toe stripper [facility] at [facility] [phone] Clarence Pyle MD Feb 27, 2017 09:43
[2017-02-27] MEDS: HEPARIN SODIUM - IV 10,000 UNITS/10 ML VIAL PRN (09:47)
[2017-02-27] MEDS: EPOETIN ALFA 10,000 UNITS/ML VIAL IV PUSH PRN (09:48)
[2017-02-27] MEDS: GENTAMICIN SULFATE (DIALYSIS USE ONLY) 20 MG/2 ML VIAL OTHER PRN (09:48)
--- NOTE | 2017-02-27 11:46 | HHI.NPPN ---
Subjective General Problems: Anemia Renal Failure: Chronic, End Stage Renal Disease Interval History patient was seen and examined. Seen during dialysis. On 3K, UF about 1 liter. Review of Systems General Constitutional: Fatigue Objective Data Data Vital Signs Date Time Temp Pulse Resp B/P (MAP) Pulse Ox O2 Delivery O2 Flow Rate FiO2 02/27/17 08:23 99 Nasal Cannula 2.00 02/27/17 08:00 97.9 77 18 187/105 (132) 97 02/27/17 04:57 97.6 88 22 138/78 (98) 99 02/27/17 00:36 97.8 78 20 125/72 (89) 96 02/26/17 21:22 98.2 85 20 155/89 (111) 94 02/26/17 21:00 Nasal Cannula 2.00 02/26/17 16:00 97.1 79 18 150/90 (110) 96 02/26/17 15:14 98 Nasal Cannula 2.00 02/26/17 12:00 97.9 72 18 129/74 (92) 98 -: 02/23/17 0547 02/25/17 0544 Tubes & Lines: Perma-Cath Physical Exam General Appearance: Well Developed, No Acute Distress, Comfortable, Pale, Malnourished Eyes Eye Exam: Pupils Equal Throat Throat Exam: Oral Mucosa [place] & Moist Neck Neck Exam: Neck Supple Pulmonary Resp Exam: Breath Sounds Equal, Crackles, Decreased Bases Cardiology CV Exam: Regular, Normal Sinus Rhythm Gastrointestinal/Abdomen GI Exam: Soft, Non-Tender, Bowel Sounds Present Musculoskeletal MS Exam: Joints Intact, Good Strength Integumentary Skin Exam: Clear, Warm, Dry, Intact Extremeties Extremities Exam: No Edema, Pedal Pulses Palpable Neurologic Neuro Exam: Alert, Awake, Oriented, Speech Clear Assessment/Plan Discussed Condition With: Patient Assessment Summary: Anemia of CKD, Hypertension, End Stage Renal Disease Problem List: (1) ESRD (end stage renal disease) on dialysis ICD Codes: N18.6 - End stage renal disease; Z99.2 - Dependence on renal dialysis Plan: Continue HD support, dialysis will be continued 3 times/week. Minimal fluid removal with treatment. He still makes urine Monitor electrolytes Avoid excess IVF On Renvela for metabolic bone disorder; dosage reduced PTH is not elevated Will need AVF revision, will consult Dr. Pyle to evaluate after the holiday (2) Malnutrition ICD Codes: E46 - Malnutrition Status: Acute Plan: High protein diet, add supplements (3) Empyema lung ICD Codes: J86.9 - Pyothorax without fistula Plan: On meropenem and doxycycline Monitor the patient clinically (4) Anemia ICD Codes: D64.9 - Anemia Status: Chronic Plan: On Epogen with HD, high dose Off Aranesp Transfused since admission Start Venofer IV Plan Vascular surgery has been consulted for abnormal ultrasound, concern for AV fistula. Jim Zuluaga MD Feb 27, 2017 11:45
[2017-02-27] MEDS: CHOLECALCIFEROL (VIT D3) 1000 UNIT TAB PO SCH (13:04)
[2017-02-27] MEDS: DOXYCYCLINE HYCLATE 100 MG CAP PO SCH ×2 (13:05→21:12)
[2017-02-27] MEDS: SODIUM CHLORIDE 0.9% FLUSH 10 ML FLUSH IV FLUSH SCH ×2 (13:05→21:13)
[2017-02-27] MEDS: CARVEDILOL 12.5 MG TAB PO SCH ×2 (13:05→21:12)
[2017-02-27] MEDS: FOLIC ACID 1 MG TAB PO SCH (13:05)
[2017-02-27] MEDS: MULTIVITAMIN TAB PO SCH (13:05)
[2017-02-27] MEDS: ASCORBIC ACID 500 MG TAB PO SCH ×2 (13:16→18:41)
[2017-02-27] MEDS: FERROUS SULFATE 300 MG /5ML UDC PO SCH ×2 (13:16→18:40)
--- NOTE | 2017-02-27 14:25 | HHI.PR ---
Subjective Remarks Follow-up COPD and hypertension. Improved shortness of breath. BP slightly elevated denies headache or dizziness. Discussed with RN, nephrology and CVT Objective Vitals Vital Signs Date Time Temp Pulse Resp B/P (MAP) Pulse Ox O2 Delivery O2 Flow Rate FiO2 02/27/17 13:45 99.0 82 18 164/91 (115) 97 02/27/17 08:23 99 Nasal Cannula 2.00 02/27/17 08:00 97.9 77 18 187/105 (132) 97 02/27/17 04:57 97.6 88 22 138/78 (98) 99 02/27/17 00:36 97.8 78 20 125/72 (89) 96 02/26/17 21:22 98.2 85 20 155/89 (111) 94 02/26/17 21:00 Nasal Cannula 2.00 02/26/17 16:00 97.1 79 18 150/90 (110) 96 02/26/17 15:14 98 Nasal Cannula 2.00 I/O 02/26/17 02/26/17 02/26/17 02/27/17 02/27/17 02/27/17 07:00 15:00 23:00 07:00 15:00 23:00 Intake Total 240 ml 1200 ml 240 ml Output Total 300 ml 725 ml 1200 ml 900 ml Balance -60 ml 475 ml -960 ml -900 ml Intake Oral 240 ml 1200 ml 240 ml Output Urine Total 300 ml 725 ml 1200 ml Hemodialysis 900 ml # Voids 2 # Bowel Movements 0 1 Result Diagram: 02/23/17 0547 02/25/17 0544 Imaging Last Impressions Thyroid Ultrasound 02/25/17 0000 Signed Impressions: Service Date/Time: Saturday, February 25, 2017 13:26 - CONCLUSION: 1. Normal ultrasound examination of the thyroid gland. 2. Abnormal appearance of the left jugular vein with apparent flow adjacent to the jugular vein wall containing small amount of debris. Consider CTA/CTV examination for better characterization and to exclude possible AV fistula. Edenilson Villarreal MD Chest X-Ray 02/24/17 0000 Signed Impressions: Service Date/Time: Friday, February 24, 2017 14:46 - CONCLUSION: Dense infiltrate and with a cavity in the right upper lobe. Diffuse interstitial lung disease is unchanged. Central catheters in good position. Andre Montemayor MD Lung Scan-VQ Nuclear Medicine 02/22/17 0000 Signed Impressions: Service Date/Time: Wednesday, February 22, 2017 18:56 - CONCLUSION: Intermediate probability for pulmonary embolism. Vasu Barrientos MD Objective Remarks GENERAL: Well-developed, well-nourished in no distress SKIN: Warm and dry. Hemodialysis catheter right subclavian, central line left subclavian and 2 chest tubes right lung Neck: Fullness left neck CARDIOVASCULAR: Regular rate and rhythm. RESPIRATORY: No accessory muscle use. Clear to auscultation. Breath sounds equal bilaterally. GASTROINTESTINAL: Abdomen soft, non-tender, nondistended. MUSCULOSKELETAL: Extremities without clubbing, cyanosis, or edema. No obvious deformities. NEUROLOGICAL: Awake and alert. No obvious cranial nerve deficits. Motor grossly within normal limits. Five out of 5 muscle strength in the arms and legs. Normal speech. 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 Fonseca is a 56 year old male who has had a very long and complicated history of present illness. He has a known medical history of coronary artery disease status post CABG and chronic kidney disease who initially presented to the hospital on November 22, 2016 with sepsis, anemia, acute renal failure, and extensive right lung pneumonia with cavitation and underwent a right thoracotomy with VATS, lysis of adhesions, and decortication for pulmonary infiltrate in right lung and COPD on 12/30 but developed right chest tube related bronchopleural fistula. He was transferred to [facility] in [place] for further management of persistent leak/bronchopleural fistula. He was discharged on 01/22/2017. He returned following treatment at [facility] on 02/19. Bronchopleural fistula History of Right thoracotomy with VATS Empyema lung with MRSA - status post multiple bronchoscopies with endotracheal valves and gluing performed at [facility] - Keep f/u appointment with IR physician Dr. Lopez 03/05 - continue Meropenem for 4 - 6 weeks (started 01/26) unless otherwise advised by ID. patient also on doxycycline - ID consulted, Pulmonology consulted - Will need to try to set up outpatient home health with IV infusion but very difficult since patient is self pay Left neck fullness. TSH unremarkable. Thyroid sonogram with normal examination of the thyroid gland but abnormal appearance of the left jugular vein with apparent flow adjacent to the jugular vein wall containing small amount of debris. Radiology recommends CTA/CTV to exclude possible AV fistula. Discussed with radiology, possible carotid jugular fistula. Consult vascular surgery. Has left subclavian central line Acute on chronic hypoxia. -Most likely secondary to worsening of the empyema. Chest x-ray 02/22 showed right consolidation and patient also had increase purulent output in the chest tube. VQ scan suggests moderate probability but that is due to the consolidation. No suspicion for any PE. -CT surgery consulted stated at the moment no indication for any surgery. -COPD Exacerbation . Improving continue prednisone End-stage renal disease on hemodialysis - Erp Engineer following. He is getting hemodialysis. -Per hydrography teacher patient will need a revision of the AV fistula next week. - Avoid nephrotoxins - Monitor electrolytes Anemia, iron deficiency vs CKD or combination -Continue with ferrous sulfate 300 mg liquid twice a day with vitamin C 500 mg twice a day administered at the same time. - continue Aranesp -Status post transfused 2 packs red blood cells on 02/22/2017 and responded appropriately. Malnutrition - Regular diet - Nepro one can 3 times a day between meals Hypertension. Suboptimal control on full dose Coreg. 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 Raúl Palafox MD Feb 27, 2017 14:25
[2017-02-27] MEDS: RESP: ALBUTEROL 2.5 MG/IPRATROPIUM 0.5 MG NEB (SCH) NEB ×2 (16:54→20:00)
[2017-02-27] MEDS: predniSONE 20 MG TAB PO SCH (18:41)
[2017-02-27] MEDS: PANTOPRAZOLE SOD 40 MG DELAYED RELEASE TAB PO SCH (21:12)
[2017-02-28] VITALS (8 sets, daily range): BP systolic 140–168; BP diastolic 75–99; PULSE 72–88; RESP 17–18; TEMP 97.4–98.5; O2SAT 92–96
[2017-02-28] MEDS: MEROPENEM 1000 MG/NS 100 ML IV SCH ×2 (04:49)
[2017-02-28] MEDS: RESP: ALBUTEROL 2.5 MG/IPRATROPIUM 0.5 MG NEB (SCH) NEB ×3 (07:55→15:33)
[2017-02-28] MEDS: SEVELAMER CARBONATE 800 MG TAB PO SCH ×3 (10:12→17:34)
[2017-02-28] MEDS: CARVEDILOL 12.5 MG TAB PO SCH ×2 (10:13→21:33)
[2017-02-28] MEDS: DOXYCYCLINE HYCLATE 100 MG CAP PO SCH ×2 (10:13→21:33)
[2017-02-28] MEDS: CHOLECALCIFEROL (VIT D3) 1000 UNIT TAB PO SCH (10:13)
[2017-02-28] MEDS: FOLIC ACID 1 MG TAB PO SCH (10:13)
[2017-02-28] MEDS: SODIUM CHLORIDE 0.9% FLUSH 10 ML FLUSH IV FLUSH SCH ×2 (10:13→21:34)
[2017-02-28] MEDS: amLODIPine BESYLATE 5 MG TAB PO SCH (10:14)
[2017-02-28] MEDS: MULTIVITAMIN TAB PO SCH (10:14)
--- NOTE | 2017-02-28 11:02 | HHI.IDPN ---
Subjective Subjective Remarks co worsening drainage from posterior tube no fever off NC O2 Antibiotics meropenem doxycyline Allergies: Coded Allergies: No Known Allergies (Unverified Allergy, Unknown, 02/20/17) linezolid (Verified Adverse Reaction, Severe, 02/20/17) thrombocytopenia vancomycin (Verified Adverse Reaction, Intermediate, 02/20/17) red man's syndrome Objective . Vital Signs Date Time Temp Pulse Resp B/P (MAP) Pulse Ox O2 Delivery O2 Flow Rate FiO2 02/28/17 08:27 98.4 75 17 157/94 (115) 93 02/28/17 04:00 97.6 79 18 168/99 (122) 96 02/28/17 04:00 Nasal Cannula 2.00 02/28/17 00:00 98.2 72 18 140/77 (98) 93 02/28/17 00:00 Room Air 02/27/17 20:00 98.1 79 18 153/91 (111) 94 02/27/17 20:00 Nasal Cannula 2.00 02/27/17 19:01 97 Nasal Cannula 2.00 02/27/17 16:00 98.4 81 19 139/88 (105) 95 02/27/17 14:28 97 Nasal Cannula 2.00 02/27/17 13:45 99.0 82 18 164/91 (115) 97 Imaging Last Impressions Thyroid Ultrasound 02/25/17 0000 Signed Impressions: Service Date/Time: Saturday, February 25, 2017 13:26 - CONCLUSION: 1. Normal ultrasound examination of the thyroid gland. 2. Abnormal appearance of the left jugular vein with apparent flow adjacent to the jugular vein wall containing small amount of debris. Consider CTA/CTV examination for better characterization and to exclude possible AV fistula. Edenilson Villarreal MD Chest X-Ray 02/24/17 0000 Signed Impressions: Service Date/Time: Friday, February 24, 2017 14:46 - CONCLUSION: Dense infiltrate and with a cavity in the right upper lobe. Diffuse interstitial lung disease is unchanged. Central catheters in good position. Andre Montemayor MD Lung Scan-VQ Nuclear Medicine 02/22/17 0000 Signed Impressions: Service Date/Time: Wednesday, February 22, 2017 18:56 - CONCLUSION: Intermediate probability for pulmonary embolism. Vasu Barrientos MD Physical Exam CONSTITUTIONAL/GENERAL: This is a thin emaciated chroniclly ill appearing patient, in no apparent distress. TUBES/LINES/DRAINS: Permacath in place R chest - site looks OK L SCV central line - site OK NECK: mild soft not tender ill denined lump on L side of the neck SKIN: No jaundice, rashes, or lesions. . Skin temperature appropriate. Not diaphoretic. CARDIOVASCULAR: Regular rate and rhythm without murmurs, gallops, or rubs. No JVD. Peripheral pulses symmetric. RESPIRATORY/CHEST: Symmetric, unlabored respirations. R side with prominent rhonchi to auscultation. Decreased BS on R Breath sounds equal bilaterally. Dressing in place with moderate amount of greenish/yellowish drainage GASTROINTESTINAL: Abdomen soft, non-tender, nondistended. No hepato-splenomegaly , or palpable masses. No guarding. Bowel sounds present. MUSCULOSKELETAL: Extremities without clubbing, cyanosis, or edema. No joint tenderness or effusion noted. No calf tenderness. No mottling or clubbing. NEUROLOGICAL: Awake and alert. Non focal PSYCHIATRIC:calm, normal affect Assessment & Plan Remarks BP fistula and polimicrobial empyema : PSAE (MDRO) , MRSA, strep viridans and Sean frag sp CT drainage and endobronchial valve placement ESRD/HD Allergic to vancomycin, developped thrombocytopenia to zyvox reportedly worsening of drianage, but clinically well: afebrile, nl WBC suspected L carotid AV fistula - vasc ff cont meropenem and doxycyline x 6 weeks total (start day was 01/26) will rechk clx if fever, WBC will dw Dr Cheung re further tx plan Paz Fontanez MD Feb 28, 2017 11:02
--- NOTE | 2017-02-28 11:13 | HHI.FF ---
Infusion Therapy Location of Infusion Therapy: Home Health Care IV Infusion Order Patient Information Patient Weight 62.8 kg Diagnosis: Coded Allergies: No Known Allergies (Unverified Allergy, Unknown, 02/20/17) linezolid (Verified Adverse Reaction, Severe, 02/20/17) thrombocytopenia vancomycin (Verified Adverse Reaction, Intermediate, 02/20/17) red man's syndrome Administer Medication 1 gram IV q 24 hours Meropenem Start Treatment: Mar 02, 2017 Stop Treatment: Mar 09, 2017 Additional Information Venous access: PICC Line Additional Instructions [x] Peripheral flush and dressing changes per protocol [x] Implanted port and central line construction superintendent: * Implanted port: 10 ml Normal Saline followed by 5 ml Heparin 100 units/ml Heparin flush after each use and monthly to maintain. [] May leave port accessed during therapy. [] May leave peripheral site accessed for duration of therapy. [x] If patient has SOB or respiratory distress, check oxygen saturation. If less than 90% or clinical signs of respiratory distress, administer oxygen at 2 L/min. via nasal cannula and notify physician. [x] Anaphylaxis/Reaction orders: * Stop infusion. * Keep IV line open with saline flush. * Notify physician. * Monitor vital signs every 15 minutes until symptoms resolve. * Check Oxygen saturation; Oxygen at 2 L/min. via nasal cannula if less than 90% or clinical signs of respiratory distress. * Administer diphenhydramine (Benadryl) 25 mg IV STAT, (unless patient has received as pre-med). May repeat once, if necessary. * Solu-Cortef 250 mg IVP over 30-60 seconds, use 100 mg vials for each dissolution. * Epinephrine (1mg/1 ml) 0.3 mg subcutaneously or IVP now with any signs of respiratory distress. * Check with physician for new additional pre-med orders if patient is re- challenged or re-treated. [x] May remove PICC line when treatment complete, after confirming with Physician. [x] If the patient is admitted to the hospital, the ED, or transferred via [facility] , complete transfer form including medication reconciliation order sheet. Laboratory Tests Weekly Labs: CBC w/diff, LFT's (Hepatic function test) Paz Fontanez MD Feb 28, 2017 11:13
[2017-02-28] MEDS: FERROUS SULFATE 300 MG /5ML UDC PO SCH ×2 (12:00→15:29)
[2017-02-28] MEDS: ASCORBIC ACID 500 MG TAB PO SCH ×2 (12:00→17:34)
--- NOTE | 2017-02-28 14:33 | HHI.PR ---
Subjective Remarks Follow-up GI bleed. Complains of intermittent slight hematochezia. Denies dizziness, abdominal pain and nausea. Discussed with RN, vascular surgery and infectious disease Objective Vitals Vital Signs Date Time Temp Pulse Resp B/P (MAP) Pulse Ox O2 Delivery O2 Flow Rate FiO2 02/28/17 13:47 Room Air 02/28/17 12:10 97.4 84 18 156/97 (116) 94 02/28/17 11:44 92 21 02/28/17 08:27 98.4 75 17 157/94 (115) 93 02/28/17 04:00 97.6 79 18 168/99 (122) 96 02/28/17 04:00 Nasal Cannula 2.00 02/28/17 00:00 98.2 72 18 140/77 (98) 93 02/28/17 00:00 Room Air 02/27/17 20:00 98.1 79 18 153/91 (111) 94 02/27/17 20:00 Nasal Cannula 2.00 02/27/17 19:01 97 Nasal Cannula 2.00 02/27/17 16:00 98.4 81 19 139/88 (105) 95 I/O 02/27/17 02/27/17 02/27/17 02/28/17 02/28/17 02/28/17 07:00 15:00 23:00 07:00 15:00 23:00 Intake Total 240 ml Output Total 1200 ml 900 ml 900 ml Balance -960 ml -900 ml -900 ml Intake Oral 240 ml Output Urine Total 1200 ml 900 ml Hemodialysis 900 ml Result Diagram: 02/25/17 0544 Objective Remarks GENERAL: Well-developed, well-nourished in no distress SKIN: Warm and dry. Hemodialysis catheter right subclavian, central line left subclavian and 2 chest tubes right lung Neck: Fullness left neck CARDIOVASCULAR: Regular rate and rhythm. RESPIRATORY: No accessory muscle use. Clear to auscultation. Breath sounds equal bilaterally. GASTROINTESTINAL: Abdomen soft, non-tender, nondistended. External hemorrhoids noted MUSCULOSKELETAL: Extremities without clubbing, cyanosis, or edema. No obvious deformities. NEUROLOGICAL: Awake and alert. No obvious cranial nerve deficits. Motor grossly within normal limits. Five out of 5 muscle strength in the arms and legs. Normal speech. 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 Fonseca is a 56 year old male who has had a very long and complicated history of present illness. He has a known medical history of coronary artery disease status post CABG and chronic kidney disease who initially presented to the hospital on November 22, 2016 with sepsis, anemia, acute renal failure, and extensive right lung pneumonia with cavitation and underwent a right thoracotomy with VATS, lysis of adhesions, and decortication for pulmonary infiltrate in right lung and COPD on 12/30 but developed right chest tube related bronchopleural fistula. He was transferred to [facility] in [place] for further management of persistent leak/bronchopleural fistula. He was discharged on 01/22/2017. He returned following treatment at [facility] on 02/19. Bronchopleural fistula History of Right thoracotomy with VATS Empyema lung with MRSA - status post multiple bronchoscopies with endotracheal valves and gluing performed at [facility] - Keep f/u appointment with IR physician Dr. Lopez 03/05 - continue Meropenem for 4 - 6 weeks (started 01/26) unless otherwise advised by ID. patient also on doxycycline - ID consulted, Pulmonology consulted - Will need to try to set up outpatient home health with IV infusion but very difficult since patient is self pay Left neck fullness. TSH unremarkable. Thyroid sonogram with normal examination of the thyroid gland but abnormal appearance of the left jugular vein with apparent flow adjacent to the jugular vein wall containing small amount of debris. Radiology recommends CTA/CTV to exclude possible AV fistula. Discussed with radiology, possible carotid jugular fistula. Discussed with vascular surgery, we'll continue to observe Acute on chronic hypoxia. -Most likely secondary to worsening of the empyema. Chest x-ray 02/22 showed right consolidation and patient also had increase purulent output in the chest tube. VQ scan suggests moderate probability but that is due to the consolidation. No suspicion for any PE. -CT surgery consulted stated at the moment no indication for any surgery. -COPD Exacerbation . 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 He is getting hemodialysis. -Per methods and procedures analyst patient will need a revision of the AV fistula next week. - Avoid nephrotoxins - Monitor electrolytes Anemia, iron deficiency vs CKD or combination -Continue with ferrous sulfate 300 mg liquid twice a day with vitamin C 500 mg twice a day administered at the same time. - continue Aranesp -Status post transfused 2 packs red blood cells on 02/22/2017 and responded appropriately. Malnutrition - Regular diet - Nepro one can 3 times a day between meals Hypertension. Suboptimal control on full dose Coreg. Add Norvasc and monitor Hematochezia with history of hemorrhoids and diverticulosis status post colonoscopy in December 2016. Also underwent EGD with gastritis and esophagitis on PPI. Denies heartburn and abdominal pain. Repeat CBC and coags in the morning. Continue to monitor . 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 Follow-up with [facility] next week for removal of endotracheal valves Raúl Palafox MD Feb 28, 2017 14:33
[2017-02-28] MEDS: predniSONE 20 MG TAB PO SCH (17:34)
[2017-02-28] MEDS: PANTOPRAZOLE SOD 40 MG DELAYED RELEASE TAB PO SCH (21:33)
[2017-03-01] VITALS: BP 126/84; PULSE 50; RESP 16; TEMP 97.2; O2SAT 95
[2017-03-01 04:00] VITALS: BP 152/96; PULSE 75; RESP 14; TEMP 97.3; O2SAT 94
[2017-03-01] MEDS: MEROPENEM 1000 MG/NS 100 ML IV SCH ×2 (04:40)
[2017-03-01 04:57] LABS: AUTOMATED NEUTROPHIL # 5.2 TH/MM3 (1.8-7.7); BASOPHIL % 0.2 % (0.0-2.0); EOSINOPHIL % 0.1 % (0.0-4.0); HEMATOCRIT 30.6 % (39.0-51.0); HEMO FLAGS DIFF FINAL; LYMPH % 14.9 % (9.0-44.0); MEAN CELL VOLUME 92.9 FL (80.0-100.0); MEAN CORPUSCULAR HEMOGLOBIN 30.2 PG (27.0-34.0); MEAN CORPUSCULAR HGB CONC 32.5 % (32.0-36.0); MONO % 3.3 % (0.0-8.0); NEUT % 81.5 % (16.0-70.0); PLATELET COUNT 179 TH/MM3 (150-450); RED BLOOD COUNT 3.29 MIL/MM3 (4.50-5.90); RED CELL DISTRIBUTION WIDTH 17.5 % (11.6-17.2); WHITE BLOOD COUNT 6.4 TH/MM3 (4.0-11.0)
[2017-03-01 05:12] LABS: APTT (PATIENT) 27.7 SEC (24.3-30.1)
[2017-03-01 05:22] LABS: BICARBONATE 28.2 MEQ/L (21.0-32.0); MAGNESIUM 1.6 MG/DL (1.5-2.5); POTASSIUM 4.7 MEQ/L (3.5-5.1)
[2017-03-01 05:26] LABS: INDIRECT BILIRUBIN 0.3 MG/DL (0.0-0.8); TOTAL BILIRUBIN ADULT 0.4 MG/DL (0.2-1.0)
[2017-03-01 08:15] VITALS: BP 170/103; PULSE 83; RESP 17; TEMP 97.8; O2SAT 94
[2017-03-01] MEDS: DOXYCYCLINE HYCLATE 100 MG CAP PO SCH ×2 (09:21→21:48)
[2017-03-01] MEDS: SEVELAMER CARBONATE 800 MG TAB PO SCH ×3 (09:21→18:33)
[2017-03-01] MEDS: MULTIVITAMIN TAB PO SCH (09:21)
[2017-03-01] MEDS: CHOLECALCIFEROL (VIT D3) 1000 UNIT TAB PO SCH (09:22)
[2017-03-01] MEDS: HYDROCORTISONE ACETATE 25 MG SUPP RECTAL SCH ×2 (09:22→21:00)
[2017-03-01] MEDS: CARVEDILOL 12.5 MG TAB PO SCH ×2 (09:22→21:49)
[2017-03-01] MEDS: amLODIPine BESYLATE 5 MG TAB PO SCH (09:22)
[2017-03-01] MEDS: FOLIC ACID 1 MG TAB PO SCH (09:22)
[2017-03-01] MEDS: SODIUM CHLORIDE 0.9% FLUSH 10 ML FLUSH IV FLUSH SCH ×2 (09:22→21:50)
[2017-03-01 12:18] VITALS: BP 154/90; PULSE 81; RESP 18; TEMP 97.7; O2SAT 97
--- NOTE | 2017-03-01 12:24 | HHI.PR ---
Subjective Remarks Follow-up GI bleed. Reports of normal bowel movement doubt bleeding. Refused hemorrhoidal suppository. Discussed with RN and case management Objective Vitals Vital Signs Date Time Temp Pulse Resp B/P (MAP) Pulse Ox O2 Delivery O2 Flow Rate FiO2 03/01/17 12:18 97.7 81 18 154/90 (111) 97 03/01/17 09:29 Room Air 03/01/17 08:15 97.8 83 17 170/103 (125) 94 03/01/17 04:00 97.3 75 14 152/96 (114) 94 03/01/17 00:00 97.2 50 16 126/84 (98) 95 02/28/17 20:30 Room Air 02/28/17 20:00 98.5 84 18 141/75 (97) 95 02/28/17 16:03 98.0 88 18 150/93 (112) 95 02/28/17 15:33 94 21 02/28/17 13:47 Room Air I/O 02/28/17 02/28/17 02/28/17 03/01/17 03/01/17 03/01/17 07:00 15:00 23:00 07:00 15:00 23:00 Intake Total 840 ml 120 ml Output Total 900 ml 1200 ml 500 ml Balance -900 ml -360 ml -380 ml Intake Oral 840 ml IV Total 120 ml Output Urine Total 900 ml 1200 ml 500 ml # Bowel Movements 1 Result Diagram: 03/01/1743903/01/17 0440 Objective Remarks GENERAL: Well-developed, well-nourished in no distress SKIN: Warm and dry. Hemodialysis catheter right subclavian, central line left subclavian and 2 chest tubes right lung Neck: Improved Fullness left neck CARDIOVASCULAR: Regular rate and rhythm. RESPIRATORY: No accessory muscle use. Clear to auscultation. Breath sounds equal bilaterally. GASTROINTESTINAL: Abdomen soft, non-tender, nondistended. External hemorrhoids noted MUSCULOSKELETAL: Extremities without clubbing, cyanosis, or edema. No obvious deformities. NEUROLOGICAL: Awake and alert. No obvious cranial nerve deficits. Motor grossly within normal limits. Five out of 5 muscle strength in the arms and legs. Normal speech. 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 Fonseca is a 56 year old male who has had a very long and complicated history of present illness. He has a known medical history of coronary artery disease status post CABG and chronic kidney disease who initially presented to the hospital on November 22, 2016 with sepsis, anemia, acute renal failure, and extensive right lung pneumonia with cavitation and underwent a right thoracotomy with VATS, lysis of adhesions, and decortication for pulmonary infiltrate in right lung and COPD on 12/30 but developed right chest tube related bronchopleural fistula. He was transferred to [facility] in [place] for further management of persistent leak/bronchopleural fistula. He was discharged on 01/22/2017. He returned following treatment at [facility] on 02/19. Bronchopleural fistula History of Right thoracotomy with VATS Empyema lung with MRSA - status post multiple bronchoscopies with endobronchial valves and gluing performed at [facility] - Keep f/u appointment with IR physician Dr. Lopez 03/05 - continue Meropenem for 4 - 6 weeks (started 01/26) unless otherwise advised by ID. patient also on doxycycline - ID consulted, Pulmonology consulted - Will need to try to set up outpatient home health with IV infusion but very difficult since patient is self pay Left neck fullness. TSH unremarkable. Thyroid sonogram with normal examination of the thyroid gland but abnormal appearance of the left jugular vein with apparent flow adjacent to the jugular vein wall containing small amount of debris. Radiology recommends CTA/CTV to exclude possible AV fistula. Discussed with radiology, possible carotid jugular fistula. Discussed with vascular surgery, we'll continue to observe Acute on chronic hypoxia. -Most likely secondary to worsening of the empyema. Chest x-ray 02/22 showed right consolidation and patient also had increase purulent output in the chest tube. VQ scan suggests moderate probability but that is due to the consolidation. No suspicion for any PE. -CT surgery consulted stated at the moment no indication for any surgery. -COPD Exacerbation . 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 He is getting hemodialysis. -Per master ocean patient will need a revision of the AV fistula - Avoid nephrotoxins - Monitor electrolytes Anemia, iron deficiency vs CKD or combination -Continue with ferrous sulfate 300 mg liquid twice a day with vitamin C 500 mg twice a day administered at the same time. - continue Aranesp -Status post transfused 2 packs red blood cells on 02/22/2017 and responded appropriately. Malnutrition - Regular diet - Nepro one can 3 times a day between meals Hypertension. Suboptimal control on full dose Coreg. Add Norvasc and monitor Hemorrhoidal bleed. Improved also has diverticulosis status post colonoscopy in December 2016. EGD with gastritis and esophagitis on PPI. Denies heartburn and abdominal pain. Repeat CBC and coags unremarkable. Continue to monitor . Avoid constipation DVT prophylaxis - Patient reports being ambulatory - Recommend SCDs teds while in bed Discharge Planning patient will need snf IV antibiotics. Follow-up with [facility] next week for removal of endobronchial valves Raúl Palafox MD Mar 01, 2017 12:24
[2017-03-01] MEDS: ASCORBIC ACID 500 MG TAB PO SCH ×2 (12:34→18:33)
[2017-03-01] MEDS: FERROUS SULFATE 300 MG /5ML UDC PO SCH ×2 (12:34→18:33)
[2017-03-01 16:04] VITALS: BP 108/96; PULSE 86; RESP 18; TEMP 98.2; O2SAT 96
[2017-03-01 20:00] VITALS: BP 165/94; PULSE 91; RESP 20; TEMP 97.8; O2SAT 93
[2017-03-01] MEDS: RESP: ALBUTEROL 2.5 MG/3 ML NEB (PRN) INH (21:39)
[2017-03-01] MEDS: PANTOPRAZOLE SOD 40 MG DELAYED RELEASE TAB PO SCH (21:48)
[2017-03-02] VITALS: BP 134/70; PULSE 98; RESP 18; TEMP 98.1; O2SAT 93
[2017-03-02 04:00] VITALS: BP 152/90; PULSE 84; RESP 20; TEMP 98.3; O2SAT 99
[2017-03-02] MEDS: MEROPENEM 1000 MG/NS 100 ML IV SCH ×2 (04:23)
[2017-03-02] MEDS: diphenhydrAMINE HCL 25 MG CAP PO PRN (04:30)
[2017-03-02 08:00] VITALS: BP 157/96; PULSE 86; RESP 18; TEMP 98; O2SAT 96
[2017-03-02] MEDS: SEVELAMER CARBONATE 800 MG TAB PO SCH ×3 (08:00→17:42)
[2017-03-02] MEDS: SODIUM CHLORIDE 0.9% FLUSH 10 ML FLUSH IV FLUSH SCH ×2 (09:00→21:00)
--- NOTE | 2017-03-02 09:28 | HHI.NPPN ---
Subjective General Problems: Anemia Renal Failure: Chronic, End Stage Renal Disease Interval History Seen during dialysis, no acute concerns. He has appointment at [facility] this week on the . (Milla Pack) Review of Systems General Constitutional: Fatigue (Milla Pack) Respiratory Lungs: SOB (Milla Pack) Cardiovascular Cardiac Remarks minor pain right lateral ribs secondary to tubes (Milla Pack) Objective Data Data Vital Signs Date Time Temp Pulse Resp B/P (MAP) Pulse Ox O2 Delivery O2 Flow Rate FiO2 03/02/17 04:00 98.3 84 20 152/90 (110) 99 03/02/17 00:00 98.1 98 18 134/70 (91) 93 03/01/17 20:30 Room Air 03/01/17 20:00 97.8 91 20 165/94 (117) 93 03/01/17 16:04 98.2 86 18 108/96 (100) 96 03/01/17 12:18 97.7 81 18 154/90 (111) 97 03/01/17 09:29 Room Air (Milla Pack) -: 03/01/17 0440 03/01/17 0440 Imaging Last Impressions Thyroid Ultrasound 02/25/17 0000 Signed Impressions: Service Date/Time: Saturday, February 25, 2017 13:26 - CONCLUSION: 1. Normal ultrasound examination of the thyroid gland. 2. Abnormal appearance of the left jugular vein with apparent flow adjacent to the jugular vein wall containing small amount of debris. Consider CTA/CTV examination for better characterization and to exclude possible AV fistula. Edenilson Villarreal MD Chest X-Ray 02/24/17 0000 Signed Impressions: Service Date/Time: Friday, February 24, 2017 14:46 - CONCLUSION: Dense infiltrate and with a cavity in the right upper lobe. Diffuse interstitial lung disease is unchanged. Central catheters in good position. Andre Montemayor MD Lung Scan-V Nuclear Medicine 02/22/17 0000 Signed Impressions: Service Date/Time: Wednesday, February 22, 2017 18:56 - CONCLUSION: Intermediate probability for pulmonary embolism. Vasu Barrientos MD Tubes & Lines: Perma-Cath (Milla Pack) Physical Exam General Appearance: Well Developed, No Acute Distress, Comfortable, Pale, Malnourished (Milla Pack) Eyes Eye Exam: Pupils Equal (Milla Pack) Throat Throat Exam: Oral Mucosa [place] & Moist (Milla Pack) Neck Neck Exam: Neck Supple (Milla Pack) Pulmonary Resp Exam: Breath Sounds Equal, Crackles, Decreased Bases (Milla Pack) Cardiology CV Exam: Regular, Normal Sinus Rhythm (Milla Pack) Gastrointestinal/Abdomen GI Exam: Soft, Non-Tender, Bowel Sounds Present (Milla Pack) Musculoskeletal MS Exam: Joints Intact, Good Strength (Milla Pack) Integumentary Skin Exam: Clear, Warm, Dry, Intact (Milla Pack) Extremeties Extremities Exam: No Edema, Pedal Pulses Palpable (Milla Pack) Neurologic Neuro Exam: Alert, Awake, Oriented, Speech Clear, Moving All Extremities (Milla Pack) Psychiatric Psych Exam: Appropriate Responses (Milla Pack) Assessment/Plan Discussed Condition With: Patient Assessment Summary: Anemia of CKD, Hypertension, End Stage Renal Disease Problem List: (1) ESRD (end stage renal disease) on dialysis ICD Codes: N18.6 - End stage renal disease; Z99.2 - Dependence on renal dialysis Plan: Seen during dialysis today on a 3K, 350 BFR. Continue HD support, dialysis will be continued 3 times/week. Minimal fluid removal with treatment. 500 ml UF today He still makes urine Monitor electrolytes Avoid excess IVF On Renvela for metabolic bone disorder, intermittently evaluate phosphorus level PTH is not elevated Will need AVF revision, Dr. Pyle to follow up outpatient (2) Malnutrition ICD Codes: E46 - Malnutrition Status: Acute Plan: High protein diet, add supplements (3) Empyema lung ICD Codes: J86.9 - Pyothorax without fistula Plan: On meropenem and doxycycline Monitor the patient clinically He will need antibiotic therapy until 03/09. (4) Anemia ICD Codes: D64.9 - Anemia Status: Chronic Plan: On Epogen with HD, high dose Off Aranesp Transfused since admission Start Venofer IV Plan Vascular surgery has been consulted for abnormal ultrasound, concern for AV fistula. No treatment indicated at this time. (Milla Pack) Plan patient was seen and examined. Agree with above assessment and plan. (Jim Zuluaga MD) Milla Pack Mar 02, 2017 09:28 Jim Zuluaga MD Mar 02, 2017 10:13
[2017-03-02 12:00] VITALS: BP 159/100; PULSE 84; RESP 18; TEMP 97.6; O2SAT 93
[2017-03-02] MEDS: EPOETIN ALFA 10,000 UNITS/ML VIAL IV PUSH PRN (12:20)
[2017-03-02] MEDS: GENTAMICIN SULFATE (DIALYSIS USE ONLY) 20 MG/2 ML VIAL OTHER PRN (12:21)
[2017-03-02] MEDS: HEPARIN SODIUM - IV 10,000 UNITS/10 ML VIAL PRN (12:21)
[2017-03-02] MEDS: HYDROCORTISONE ACETATE 25 MG SUPP RECTAL SCH ×2 (12:54→20:59)
[2017-03-02] MEDS: CHOLECALCIFEROL (VIT D3) 1000 UNIT TAB PO SCH (12:54)
[2017-03-02] MEDS: DOXYCYCLINE HYCLATE 100 MG CAP PO SCH ×2 (12:55→20:59)
[2017-03-02] MEDS: FOLIC ACID 1 MG TAB PO SCH (12:55)
[2017-03-02] MEDS: CARVEDILOL 12.5 MG TAB PO SCH ×2 (12:55→20:59)
[2017-03-02] MEDS: amLODIPine BESYLATE 5 MG TAB PO SCH (12:55)
[2017-03-02] MEDS: MULTIVITAMIN TAB PO SCH (12:55)
[2017-03-02] MEDS: FERROUS SULFATE 300 MG /5ML UDC PO SCH ×2 (12:56→17:42)
--- NOTE | 2017-03-02 15:28 | HHI.PR ---
Subjective Remarks Follow-up COPD and GI bleeding. Denies shortness of breath and hematochezia. No new complaints. Discussed with RN and case mgr Objective Vitals Vital Signs Date Time Temp Pulse Resp B/P (MAP) Pulse Ox O2 Delivery O2 Flow Rate FiO2 03/02/17 12:00 97.6 84 18 159/100 (119) 93 03/02/17 08:00 98.0 86 18 157/96 (116) 96 03/02/17 04:00 98.3 84 20 152/90 (110) 99 03/02/17 00:00 98.1 98 18 134/70 (91) 93 03/01/17 20:30 Room Air 03/01/17 20:00 97.8 91 20 165/94 (117) 93 03/01/17 16:04 98.2 86 18 108/96 (100) 96 I/O 03/01/17 03/01/17 03/01/17 03/02/17 03/02/17 03/02/17 07:00 15:00 23:00 07:00 15:00 23:00 Intake Total 120 ml 960 ml 105 ml Output Total 500 ml 900 ml 3500 ml Balance -380 ml 60 ml 105 ml -3500 ml Intake Oral 960 ml IV Total 120 ml 105 ml Output Urine Total 500 ml 900 ml 3000 ml Hemodialysis 500 ml # Voids 1 # Bowel Movements 2 Result Diagram: 03/01/1743903/01/17 0440 Objective Remarks GENERAL: Well-developed, well-nourished in no distress SKIN: Warm and dry. Hemodialysis catheter right subclavian, central line left subclavian and 2 chest tubes right lung Neck: Improved Fullness left neck CARDIOVASCULAR: Regular rate and rhythm. RESPIRATORY: No accessory muscle use. Clear to auscultation. Breath sounds equal bilaterally. GASTROINTESTINAL: Abdomen soft, non-tender, nondistended. External hemorrhoids noted MUSCULOSKELETAL: Extremities without clubbing, cyanosis, or edema. No obvious deformities. NEUROLOGICAL: Awake and alert. No obvious cranial nerve deficits. Motor grossly within normal limits. Five out of 5 muscle strength in the arms and legs. Normal speech. 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 Fonseca is a 56 year old male who has had a very long and complicated history of present illness. He has a known medical history of coronary artery disease status post CABG and chronic kidney disease who initially presented to the hospital on November 22, 2016 with sepsis, anemia, acute renal failure, and extensive right lung pneumonia with cavitation and underwent a right thoracotomy with VATS, lysis of adhesions, and decortication for pulmonary infiltrate in right lung and COPD on 12/30 but developed right chest tube related bronchopleural fistula. He was transferred to [facility] in [place] for further management of persistent leak/bronchopleural fistula. He was discharged on 01/22/2017. He returned following treatment at [facility] on 02/19. Bronchopleural fistula History of Right thoracotomy with VATS Empyema lung with MRSA - status post multiple bronchoscopies with endobronchial valves and gluing performed at [facility] - Keep f/u appointment with IR physician Dr. Lopez 03/05 - continue Meropenem for 4 - 6 weeks (started 01/26) unless otherwise advised by ID. patient also on doxycycline - ID consulted, Pulmonology consulted - Will need to try to set up outpatient home health with IV infusion but very difficult since patient is self pay Left neck fullness. TSH unremarkable. Thyroid sonogram with normal examination of the thyroid gland but abnormal appearance of the left jugular vein with apparent flow adjacent to the jugular vein wall containing small amount of debris. Radiology recommends CTA/CTV to exclude possible AV fistula. Discussed with radiology, possible carotid jugular fistula. Discussed with vascular surgery, we'll continue to observe Acute on chronic hypoxia. -Most likely secondary to worsening of the empyema. Chest x-ray 02/22 showed right consolidation and patient also had increase purulent output in the chest tube. VQ scan suggests moderate probability but that is due to the consolidation. No suspicion for any PE. -CT surgery consulted stated at the moment no indication for any surgery. -COPD Exacerbation . Improving status post prednisone End-stage renal disease on hemodialysis - Waterproofer following. He is getting hemodialysis. -Per cellar worker patient will need a revision of the AV fistula - Avoid nephrotoxins - Monitor electrolytes Anemia, iron deficiency vs CKD or combination -Continue with ferrous sulfate 300 mg liquid twice a day with vitamin C 500 mg twice a day administered at the same time. - continue Aranesp -Status post transfused 2 packs red blood cells on 02/22/2017 and responded appropriately. Malnutrition - Regular diet - Nepro one can 3 times a day between meals Hypertension. Suboptimal control on full dose Coreg. Add Norvasc and monitor Hemorrhoidal bleed. Improved also has diverticulosis status post colonoscopy in December 2016. EGD with gastritis and esophagitis on PPI. Denies heartburn and abdominal pain. Repeat CBC and coags unremarkable. Continue to monitor . Avoid constipation DVT prophylaxis - Patient reports being ambulatory - Recommend SCDs teds while in bed Discharge Planning patient will need long term care phlebotomist IV antibiotics. Follow-up with [facility] next week for removal of endobronchial valves Raúl Palafox MD Mar 02, 2017 15:28
[2017-03-02] MEDS: ASCORBIC ACID 500 MG TAB PO SCH (17:44)
--- NOTE | 2017-03-02 18:50 | HHI.PR ---
Subjective Remarks Has some green drainage from chest tubes on Right. No Fever. Was Dialyzed. today . On O2 3 L.No Pain. Objective Vital Signs Date Time Temp Pulse Resp B/P (MAP) Pulse Ox O2 Delivery O2 Flow Rate FiO2 03/02/17 12:00 97.6 84 18 159/100 (119) 93 03/02/17 08:00 98.0 86 18 157/96 (116) 96 03/02/17 08:00 Room Air 03/02/17 04:00 98.3 84 20 152/90 (110) 99 03/02/17 00:00 98.1 98 18 134/70 (91) 93 03/01/17 20:30 Room Air 03/01/17 20:00 97.8 91 20 165/94 (117) 93 I/O 03/01/17 03/01/17 03/01/17 03/02/17 03/02/17 03/02/17 07:00 15:00 23:00 07:00 15:00 23:00 Intake Total 120 ml 960 ml 105 ml Output Total 500 ml 900 ml 3500 ml Balance -380 ml 60 ml 105 ml -3500 ml Intake Oral 960 ml IV Total 120 ml 105 ml Output Urine Total 500 ml 900 ml 3000 ml Hemodialysis 500 ml # Voids 1 # Bowel Movements 2 Result Diagram: 03/01/1743903/01/17439 Objective Remarks IN GENERAL: This is a middle-aged thinly built white male who is pale and not dyspneic at rest. HEAD, EYES, EARS, NOSE, AND THROAT: Head normocephalic. Pupils reactive. Tongue is moist. Throat was clear. Nasal mucosa clear. NECK: Supple. No bruits or thyroid enlargement. CHEST: Decreased breath sounds over the right chest with occasional wheezes in the right upper lung june.Chest Tubes in place in Right chest. HEART: The heart sounds are regular S1-S2. No murmur. ABDOMEN: The abdomen is soft, protuberant without masses or organomegaly or tenderness. Bowel sounds are active. EXTREMITIES: no edema. Peripheral pulses are diminished. NEUROLOGIC: Reflexes are 1+ with no gross motor deficits. SKIN: No lesions noted. Assessment and Plan Assessment and Plan IMPRESSION 1. Right bronchopleural fistula. 2. Empyema right chest. 3. Persistent air leak with history of pneumothorax. 4. COPD, chronic bronchitis or bronchiectasis. 5. End-stage renal disease on dialysis. Plan : 1. Will continue O2 at 2 L. 2. Nebs qid Duoneb. 3. Continue antibiotics per ID. 4. IS at bedside q2h. 5. Chest X ray in am. 6. Labs in am. 7.To [facility] on 03/05.For Revision of Bronchial valve Alison Wilson MD Mar 02, 2017 18:50
[2017-03-02 20:00] VITALS: BP 150/92; PULSE 95; RESP 20; TEMP 97.9; O2SAT 92
[2017-03-02] MEDS: PANTOPRAZOLE SOD 40 MG DELAYED RELEASE TAB PO SCH (20:59)
[2017-03-03] VITALS: BP 131/84; PULSE 80; RESP 18; TEMP 98; O2SAT 95
[2017-03-03 04:00] VITALS: BP 135/84; PULSE 79; RESP 18; TEMP 98.2; O2SAT 94
[2017-03-03] MEDS: MEROPENEM 1000 MG/NS 100 ML IV SCH ×2 (05:16)
--- NOTE | 2017-03-03 06:37 | RADRPT ---
EXAM DATE/TIME: 03/03/2017 06:01 [place] COMPARISON: CHEST PA & LAT, February 24, 2017, 14:46. CHEST SINGLE AP, January 19, 2017, 5:25. CHEST PA & LAT, February 22, 2017, 18:23. CT THORAX W/O CONTRAST, January 19, 2017, 22:21. CHEST SINGLE AP, Novembe r 2016, 4:13. INDICATIONS : Short of breath, evaluate infiltrate MEDICAL HISTORY : Chronic obstructive pulmonary disease. Renal failure, chronic. SURGICAL HISTORY : CABG. dialysis catheter ENCOUNTER: Subsequent ACUITY: 1 week PAIN SCORE: 0/10 LOCATION: Bilateral chest FINDINGS: There is persistent pleural and parenchymal changes throughout the right upper lung including loculat ed areas of pleural air. There appear to be 2 chest x-rays at the inferior right chest. There is volu me loss with shift of the heart and mediastinal structures towards the right. There are multiple smal l metallic densities seen in the right hilar region likely related to occlusion devices. The patient is status post sternotomy. There is a right internal jugular sheath double-lumen central line in plac e with tips overlying the right atrium. There is a smaller left internal jugular central line in plac e with tip overlying the SVC. CONCLUSION: Persistent pleural and parenchymal changes seen in the right upper lobe. 2 right-sided chest tubes ar e seen at the base of the right chest. Caio Villalpando MD on March 03, 2017 at 6:31 Board Certified Radiologist. This report was verified electronically.
[2017-03-03 08:00] VITALS: BP 140/93; PULSE 82; RESP 18; TEMP 98; O2SAT 92
[2017-03-03] MEDS: FOLIC ACID 1 MG TAB PO SCH (09:43)
[2017-03-03] MEDS: CHOLECALCIFEROL (VIT D3) 1000 UNIT TAB PO SCH (09:43)
[2017-03-03] MEDS: CARVEDILOL 12.5 MG TAB PO SCH ×2 (09:43→21:11)
[2017-03-03] MEDS: SEVELAMER CARBONATE 800 MG TAB PO SCH ×3 (09:43→18:31)
[2017-03-03] MEDS: MULTIVITAMIN TAB PO SCH (09:43)
[2017-03-03] MEDS: DOXYCYCLINE HYCLATE 100 MG CAP PO SCH ×2 (09:43→21:11)
[2017-03-03] MEDS: SODIUM CHLORIDE 0.9% FLUSH 10 ML FLUSH IV FLUSH SCH ×2 (09:44→21:12)
[2017-03-03] MEDS: amLODIPine BESYLATE 5 MG TAB PO SCH (09:44)
[2017-03-03 12:00] VITALS: BP 122/77; PULSE 88; RESP 18; TEMP 98.3; O2SAT 95
--- NOTE | 2017-03-03 12:06 | HHI.PR ---
Subjective Remarks F/u COPD and empyema. Denies shortness of breath and tolerating room air. Complains of thick greenish discharge from the empyema tubes. Discussed with RN , CVT and pulmonary Objective Vitals Vital Signs Date Time Temp Pulse Resp B/P (MAP) Pulse Ox O2 Delivery O2 Flow Rate FiO2 03/03/17 08:00 98.0 82 18 140/93 (109) 92 03/03/17 04:00 98.2 79 18 135/84 (101) 94 03/03/17 00:00 98.0 80 18 131/84 (100) 95 03/02/17 21:18 Room Air 03/02/17 20:00 97.9 95 20 150/92 (111) 92 I/O 03/02/17 03/02/17 03/02/17 03/03/17 03/03/17 03/03/17 07:00 15:00 23:00 07:00 15:00 23:00 Intake Total 105 ml 240 ml 100 ml Output Total 3500 ml Balance 105 ml -3500 ml 240 ml 100 ml Intake Oral 240 ml IV Total 105 ml 100 ml Output Urine Total 3000 ml Hemodialysis 500 ml # Voids 1 6 # Bowel Movements 1 Result Diagram: 03/01/17 0440 03/01/17 0440 Imaging Last Impressions Chest X-Ray 03/03/17 0600 Signed Impressions: Service Date/Time: Friday, March 03, 2017 06:01 - CONCLUSION: Persistent pleural and parenchymal changes seen in the right upper lobe. 2 right-sided chest tubes are seen at the base of the right chest. Caio Villalpando MD Thyroid Ultrasound 02/25/17 0000 Signed Impressions: Service Date/Time: Saturday, February 25, 2017 13:26 - CONCLUSION: 1. Normal ultrasound examination of the thyroid gland. 2. Abnormal appearance of the left jugular vein with apparent flow adjacent to the jugular vein wall containing small amount of debris. Consider CTA/CTV examination for better characterization and to exclude possible AV fistula. Edenilson Villarreal MD Lung Scan-V Nuclear Medicine 02/22/17 0000 Signed Impressions: Service Date/Time: Wednesday, February 22, 2017 18:56 - CONCLUSION: Intermediate probability for pulmonary embolism. Vasu Barrientos MD Objective Remarks GENERAL: Well-developed, well-nourished in no distress SKIN: Warm and dry. Hemodialysis catheter right subclavian, central line left subclavian and 2 chest tubes right lung Neck: Improved Fullness left neck CARDIOVASCULAR: Regular rate and rhythm. RESPIRATORY: No accessory muscle use. Clear to auscultation. Breath sounds equal bilaterally. GASTROINTESTINAL: Abdomen soft, non-tender, nondistended. MUSCULOSKELETAL: Extremities without clubbing, cyanosis, or edema. No obvious deformities. NEUROLOGICAL: Awake and alert. No obvious cranial nerve deficits. Motor grossly within normal limits. Five out of 5 muscle strength in the arms and legs. Normal speech. 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 Fonseca is a 56 year old male who has had a very long and complicated history of present illness. He has a known medical history of coronary artery disease status post CABG and chronic kidney disease who initially presented to the hospital on November 22, 2016 with sepsis, anemia, acute renal failure, and extensive right lung pneumonia with cavitation and underwent a right thoracotomy with VATS, lysis of adhesions, and decortication for pulmonary infiltrate in right lung and COPD on 12/30 but developed right chest tube related bronchopleural fistula. He was transferred to [facility] in [place] for further management of persistent leak/bronchopleural fistula. He was discharged on 01/22/2017. He returned following treatment at [facility] on 02/19. Bronchopleural fistula History of Right thoracotomy with VATS Persistent air leak with history of pneumothorax Empyema lung culture polymicrobial with MRSA, pseudomonas aeruginosa as (MDRO), viridans and Bacillus fragilis - status post multiple bronchoscopies with endobronchial valves and gluing performed at [facility] - Keep f/u appointment with IR physician Dr. Lopez 03/05 - continue Meropenem and doxycycline for 6 weeks (started 01/26) unless otherwise advised by ID. - ID consulted, Pulmonology consulted - Will need to try to set up outpatient home health with IV infusion but very difficult since patient is self pay Left neck fullness. TSH unremarkable. Thyroid sonogram with normal examination of the thyroid gland but abnormal appearance of the left jugular vein with apparent flow adjacent to the jugular vein wall containing small amount of debris. Radiology recommends CTA/CTV to exclude possible AV fistula. Discussed with radiology, possible carotid jugular fistula. Discussed with vascular surgery, we'll continue to observe Hypoxia. Improved -Most likely secondary to worsening of the empyema. Chest x-ray showed right consolidation and patient also had increased purulent output in the chest tube. VQ scan suggests moderate probability but that is due to the consolidation. No suspicion for any PE. -CT surgery consulted stated at the moment no indication for any surgery. -COPD Exacerbation . Improved status post prednisone End-stage renal disease on hemodialysis - Applications Architect following. He is getting hemodialysis which needs to be set up outpatient. - Per plumbing assembler patient will need a revision of the AV fistula - Avoid nephrotoxins - Monitor electrolytes Anemia, iron deficiency vs CKD or combination -Continue with ferrous sulfate 300 mg liquid twice a day with vitamin C 500 mg twice a day administered at the same time. - continue Aranesp - Status post transfused 2 packs red blood cells on 02/22/2017 and responded appropriately. Malnutrition - Regular diet - Nepro one can 3 times a day between meals Hypertension. Improving continue Coreg and Norvasc and monitor Hemorrhoidal bleed. Improved also has diverticulosis status post colonoscopy in December 2016. EGD with gastritis and esophagitis on PPI. Denies heartburn and abdominal pain. Repeat CBC and coags unremarkable. Continue to monitor . Avoid constipation DVT prophylaxis - Patient reports being ambulatory - Recommend SCDs teds while in bed Discharge Planning patient will need middle or intermediate school principal IV antibiotics and Outpatient HD set up. Follow-up with [facility] next week for removal of endobronchial valves Raúl Palafox MD Mar 03, 2017 12:06
[2017-03-03] MEDS: FERROUS SULFATE 300 MG /5ML UDC PO SCH ×2 (14:50→18:31)
[2017-03-03] MEDS: ASCORBIC ACID 500 MG TAB PO SCH ×2 (14:50→18:31)
[2017-03-03 16:00] VITALS: BP 136/87; PULSE 94; RESP 18; TEMP 97.7; O2SAT 97
[2017-03-03 20:00] VITALS: BP 139/92; PULSE 94; RESP 18; TEMP 98.9; O2SAT 95
[2017-03-03] MEDS: PANTOPRAZOLE SOD 40 MG DELAYED RELEASE TAB PO SCH (21:12)
[2017-03-04] VITALS: BP 146/91; PULSE 89; RESP 18; TEMP 98.3; O2SAT 95
[2017-03-04] MEDS: diphenhydrAMINE HCL 25 MG CAP PO PRN (03:50)
[2017-03-04 04:00] VITALS: BP 135/83; PULSE 82; RESP 18; TEMP 98.4; O2SAT 94
[2017-03-04] MEDS: MEROPENEM 1000 MG/NS 100 ML IV SCH ×2 (06:05)
[2017-03-04 08:00] VITALS: BP 134/76; PULSE 96; RESP 18; TEMP 98.7; O2SAT 96
[2017-03-04] MEDS: SEVELAMER CARBONATE 800 MG TAB PO SCH ×3 (08:00→17:00)
[2017-03-04] MEDS: CARVEDILOL 12.5 MG TAB PO SCH ×2 (08:08→22:18)
[2017-03-04] MEDS: amLODIPine BESYLATE 5 MG TAB PO SCH (08:09)
[2017-03-04] MEDS: DOXYCYCLINE HYCLATE 100 MG CAP PO SCH ×2 (08:11→22:18)
[2017-03-04] MEDS: SODIUM CHLORIDE 0.9% FLUSH 10 ML FLUSH IV FLUSH SCH ×2 (08:13→21:00)
[2017-03-04] MEDS: MULTIVITAMIN TAB PO SCH (09:00)
[2017-03-04] MEDS: FOLIC ACID 1 MG TAB PO SCH (09:00)
[2017-03-04] MEDS: CHOLECALCIFEROL (VIT D3) 1000 UNIT TAB PO SCH (09:00)
[2017-03-04] MEDS: FERROUS SULFATE 300 MG /5ML UDC PO SCH ×2 (11:50→17:00)
[2017-03-04] MEDS: ASCORBIC ACID 500 MG TAB PO SCH ×2 (11:50→17:00)
--- NOTE | 2017-03-04 11:58 | HHI.NPPN ---
Subjective General Problems: Anemia Renal Failure: Chronic, End Stage Renal Disease Interval History Ambulating to restroom. Due for dialysis. (Milla Pack) Review of Systems General Constitutional: Fatigue (Milla Pack) Respiratory Lungs: SOB (Milla Pack) Cardiovascular Cardiac Remarks minor pain right lateral ribs secondary to tubes (Milla Pack) Objective Data Data Vital Signs Date Time Temp Pulse Resp B/P (MAP) Pulse Ox O2 Delivery O2 Flow Rate FiO2 03/04/17 08:15 Room Air 03/04/17 08:00 98.7 96 18 134/76 (95) 96 03/04/17 04:00 98.4 82 18 135/83 (100) 94 03/04/17 00:00 98.3 89 18 146/91 (109) 95 03/03/17 20:00 Room Air 03/03/17 20:00 98.9 94 18 139/92 (108) 95 03/03/17 16:00 97.7 94 18 136/87 (103) 97 03/03/17 12:00 98.3 88 18 122/77 (92) 95 (Milla Pack) -: 03/01/17 0440 03/01/17 0440 Imaging Last 72 hours Impressions Chest X-Ray 03/03/17 0600 Signed Impressions: Service Date/Time: Friday, March 03, 2017 06:01 - CONCLUSION: Persistent pleural and parenchymal changes seen in the right upper lobe. 2 right-sided chest tubes are seen at the base of the right chest. Caio Villalpando MD Tubes & Lines: Perma-Cath (Milla Pack) Physical Exam General Appearance: Well Developed, No Acute Distress, Comfortable, Pale, Malnourished (Milla Pack) Eyes Eye Exam: Pupils Equal (Milla Pack) Throat Throat Exam: Oral Mucosa [place] & Moist (Milla Pack) Neck Neck Exam: Neck Supple (Milla Pack) Pulmonary Resp Exam: Breath Sounds Equal, Crackles, Decreased Bases (Milla Pack) Cardiology CV Exam: Regular, Normal Sinus Rhythm (Milla Pack) Gastrointestinal/Abdomen GI Exam: Soft, Non-Tender, Bowel Sounds Present (Milla Pack) Musculoskeletal MS Exam: Joints Intact, Good Strength (Milla Pack) Integumentary Skin Exam: Clear, Warm, Dry, Intact (Milla Pack) Extremeties Extremities Exam: No Edema, Pedal Pulses Palpable (Milla Pack) Neurologic Neuro Exam: Alert, Awake, Oriented, Speech Clear, Moving All Extremities (Milla Pack) Psychiatric Psych Exam: Appropriate Responses (Milla Pack) Assessment/Plan Discussed Condition With: Patient Assessment Summary: Anemia of CKD, Hypertension, End Stage Renal Disease Problem List: (1) ESRD (end stage renal disease) on dialysis ICD Codes: N18.6 - End stage renal disease; Z99.2 - Dependence on renal dialysis Plan: HD support continues MWF Permcath in place for HD; will need AVF revision; hopefully will happen prior to discharge Minimal fluid removal with treatment. 500 ml UF today He still makes urine Monitor electrolytes Avoid excess IVF On Renvela for metabolic bone disorder, intermittently evaluate phosphorus level PTH is not elevated (2) Malnutrition ICD Codes: E46 - Malnutrition Status: Acute Plan: High protein diet, add supplements (3) Empyema lung ICD Codes: J86.9 - Pyothorax without fistula Plan: On meropenem and doxycycline Monitor the patient clinically He will need antibiotic therapy until 03/09. To go for follow up at [facility] tomorrow. (4) Anemia ICD Codes: D64.9 - Anemia Status: Chronic Plan: On Epogen with HD, high dose Off Aranesp Transfused since admission Given Venofer IV Plan (Milla Pack) Plan patient was seen and examined. Agree with above assessment and plan. (iJm Zuluaga MD) Milla Pack Mar 04, 2017 11:58 Jim Zuluaga MD Mar 05, 2017 14:21
[2017-03-04 12:00] VITALS: BP 144/88; PULSE 86; RESP 19; TEMP 97.3; O2SAT 95
[2017-03-04 14:02] LABS: BICARBONATE 26.2 MEQ/L (21.0-32.0); POTASSIUM 3.7 MEQ/L (3.5-5.1)
--- NOTE | 2017-03-04 14:52 | HHI.PR ---
Subjective Remarks seen earlier today F/U COPD and empyema. In bed he appears in not acute distress at this time. He is worried about appointment tomorrow at [facility]. We discussed at [facility] and patient will have another appointment at a later date, [facility] will call patient. The patient says he is improving as she is able to ambulate fairly well with physical therapy. She has no chest pain or shortness of breath at this time however she gets short of breath and he has chest pain and feeling lightheaded with exercise and walking. No fever or chills. Objective Vitals Vital Signs Date Time Temp Pulse Resp B/P (MAP) Pulse Ox O2 Delivery O2 Flow Rate FiO2 03/04/17 13:14 Room Air 03/04/17 12:00 97.3 86 19 144/88 (106) 95 03/04/17 08:15 Room Air 03/04/17 08:00 98.7 96 18 134/76 (95) 96 03/04/17 04:00 98.4 82 18 135/83 (100) 94 03/04/17 00:00 98.3 89 18 146/91 (109) 95 03/03/17 20:00 Room Air 03/03/17 20:00 98.9 94 18 139/92 (108) 95 03/03/17 16:00 97.7 94 18 136/87 (103) 97 I/O 03/03/17 03/03/17 03/03/17 03/04/17 03/04/17 03/04/17 07:00 15:00 23:00 07:00 15:00 23:00 Intake Total 100 ml 940 ml 320 ml Output Total 400 ml 300 ml Balance 100 ml 540 ml 20 ml Intake Oral 940 ml 220 ml IV Total 100 ml 100 ml Output Urine Total 400 ml 300 ml # Voids 4 # Bowel Movements 2 0 Result Diagram: 03/01/17 0440 03/04/17 1300 Imaging Last Impressions Chest X-Ray 03/03/17 0600 Signed Impressions: Service Date/Time: Friday, March 03, 2017 06:01 - CONCLUSION: Persistent pleural and parenchymal changes seen in the right upper lobe. 2 right-sided chest tubes are seen at the base of the right chest. Caio Villalpando MD Thyroid Ultrasound 02/25/17 0000 Signed Impressions: Service Date/Time: Saturday, February 25, 2017 13:26 - CONCLUSION: 1. Normal ultrasound examination of the thyroid gland. 2. Abnormal appearance of the left jugular vein with apparent flow adjacent to the jugular vein wall containing small amount of debris. Consider CTA/CTV examination for better characterization and to exclude possible AV fistula. Edenilson Villarreal MD Lung Scan-VQ Nuclear Medicine 02/22/17 0000 Signed Impressions: Service Date/Time: Wednesday, February 22, 2017 18:56 - CONCLUSION: Intermediate probability for pulmonary embolism. Vasu Barrientos MD Objective Remarks GENERAL: Well-developed, well-nourished in no distress SKIN: Warm and dry. Hemodialysis catheter right subclavian, central line left subclavian and 2 chest tubes right lung Neck: Improved Fullness left neck CARDIOVASCULAR: Regular rate and rhythm. RESPIRATORY: No accessory muscle use. Clear to auscultation. Breath sounds equal bilaterally. GASTROINTESTINAL: Abdomen soft, non-tender, nondistended. MUSCULOSKELETAL: Extremities without clubbing, cyanosis, or edema. No obvious deformities. NEUROLOGICAL: Awake and alert. No obvious cranial nerve deficits. Motor grossly within normal limits. Five out of 5 muscle strength in the arms and legs. Normal speech. 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 Fonseca is a 56 year old male who has had a very long and complicated history of present illness. He has a known medical history of coronary artery disease status post CABG and chronic kidney disease who initially presented to the hospital on November 22, 2016 with sepsis, anemia, acute renal failure, and extensive right lung pneumonia with cavitation and underwent a right thoracotomy with VATS, lysis of adhesions, and decortication for pulmonary infiltrate in right lung and COPD on 12/30 but developed right chest tube related bronchopleural fistula. He was transferred to [facility] in [place] for further management of persistent leak/bronchopleural fistula. He was discharged on 01/22/2017. He returned following treatment at [facility] on 02/19. Bronchopleural fistula History of Right thoracotomy with VATS Persistent air leak with history of pneumothorax Empyema lung culture polymicrobial with MRSA, pseudomonas aeruginosa as (MDRO), viridans and Bacillus fragilis - status post multiple bronchoscopies with endobronchial valves and gluing performed at [facility] - Keep f/u appointment with IR physician Dr. Lopez 03/05 - continue Meropenem and doxycycline for 6 weeks (started 01/26) unless otherwise advised by ID. - ID consulted, Pulmonology consulted - Will need to try to set up outpatient home health with IV infusion but very difficult since patient is self pay Left neck fullness. TSH unremarkable. Thyroid sonogram with normal examination of the thyroid gland but abnormal appearance of the left jugular vein with apparent flow adjacent to the jugular vein wall containing small amount of debris. Radiology recommends CTA/CTV to exclude possible AV fistula. Discussed with radiology, possible carotid jugular fistula. Discussed with vascular surgery, we'll continue to observe Hypoxia. Improved -Most likely secondary to worsening of the empyema. Chest x-ray showed right consolidation and patient also had increased purulent output in the chest tube. VQ scan suggests moderate probability but that is due to the consolidation. No suspicion for any PE. -CT surgery consulted stated at the moment no indication for any surgery. -COPD Exacerbation . Improved status post prednisone End-stage renal disease on hemodialysis - Fleet [employer] following. He is getting hemodialysis which needs to be set up outpatient. - Per home specialist patient will need a revision of the AV fistula - Avoid nephrotoxins - Monitor electrolytes Anemia, iron deficiency vs CKD or combination -Continue with ferrous sulfate 300 mg liquid twice a day with vitamin C 500 mg twice a day administered at the same time. - continue Aranesp - Status post transfused 2 packs red blood cells on 02/22/2017 and responded appropriately. Malnutrition - Regular diet - Nepro one can 3 times a day between meals Hypertension. Improving continue Coreg and Norvasc and monitor Hemorrhoidal bleed. Improved also has diverticulosis status post colonoscopy in December 2016. EGD with gastritis and esophagitis on PPI. Denies heartburn and abdominal pain. Repeat CBC and coags unremarkable. Continue to monitor . Avoid constipation DVT prophylaxis - Patient reports being ambulatory - Recommend SCDs teds while in bed Discharge Planning patient will need fdc IV antibiotics and Outpatient HD set up. Follow-up with [facility] next week for removal of endobronchial valves We discussed at [facility] and patient will have another appointment at a later date , [facility] will call patient. Suni Garcia MD Mar 04, 2017 14:52
[2017-03-04] MEDS: EPOETIN ALFA 10,000 UNITS/ML VIAL IV PUSH PRN (15:58)
[2017-03-04] MEDS: HEPARIN SODIUM - IV 10,000 UNITS/10 ML VIAL PRN (15:58)
[2017-03-04] MEDS: GENTAMICIN SULFATE (DIALYSIS USE ONLY) 20 MG/2 ML VIAL OTHER PRN (15:59)
--- NOTE | 2017-03-04 17:42 | HHI.PR ---
Subjective Remarks Has some drainage from chest tubes on Right. No Fever. Still weak. Poor appetite. On O2 3 L. No Pain. Objective Vital Signs Date Time Temp Pulse Resp B/P (MAP) Pulse Ox O2 Delivery O2 Flow Rate FiO2 03/04/17 13:14 Room Air 03/04/17 12:00 97.3 86 19 144/88 (106) 95 03/04/17 08:15 Room Air 03/04/17 08:00 98.7 96 18 134/76 (95) 96 03/04/17 04:00 98.4 82 18 135/83 (100) 94 03/04/17 00:00 98.3 89 18 146/91 (109) 95 03/03/17 20:00 Room Air 03/03/17 20:00 98.9 94 18 139/92 (108) 95 I/O 03/03/17 03/03/17 03/03/17 03/04/17 03/04/17 03/04/17 07:00 15:00 23:00 07:00 15:00 23:00 Intake Total 100 ml 940 ml 320 ml Output Total 400 ml 300 ml 500 ml Balance 100 ml 540 ml 20 ml -500 ml Intake Oral 940 ml 220 ml IV Total 100 ml 100 ml Output Urine Total 400 ml 300 ml Hemodialysis 500 ml # Voids 4 # Bowel Movements 2 0 Result Diagram: 03/01/17 0440 03/04/17 1300 Objective Remarks IN GENERAL: This is a middle-aged thinly built white male who is pale and dyspneic at rest. HEAD, EYES, EARS, NOSE, AND THROAT: Head normocephalic. Pupils reactive. Tongue is moist. Throat was clear. Nasal mucosa clear. NECK: Supple. No bruits or thyroid enlargement. CHEST: Decreased breath sounds over the right chest and Chest Tubes in place in Right chest. HEART: The heart sounds are regular S1-S2. No murmur. ABDOMEN: The abdomen is soft, protuberant without masses or organomegaly or tenderness. Bowel sounds are active. EXTREMITIES: no edema. Peripheral pulses are diminished. NEUROLOGIC: Reflexes are 1+ with no gross motor deficits. SKIN: No lesions noted. Assessment and Plan Assessment and Plan IMPRESSION 1. Right bronchopleural fistula. 2. Empyema right chest. 3. Persistent air leak with history of pneumothorax. 4. COPD, chronic bronchitis or bronchiectasis. 5. End-stage renal disease on dialysis. Plan : 1. Will continue O2 at 2 L. 2. Nebs qid Duoneb. 3. Continue antibiotics per ID. 4. IS at bedside q2h. 5. Dialysis in am. 6. Labs in am. [facility] Rev[facility] Bronchial valve Alison Wilson MD Mar 04, 2017 17:42
[2017-03-04 20:00] VITALS: BP 148/88; PULSE 114; RESP 18; TEMP 98.2; O2SAT 92
[2017-03-04] MEDS: PANTOPRAZOLE SOD 40 MG DELAYED RELEASE TAB PO SCH (22:18)
[2017-03-05] VITALS: BP 113/65; PULSE 80; RESP 18; O2SAT 95
[2017-03-05 04:00] VITALS: BP 146/89; PULSE 78; RESP 20; TEMP 97.8; O2SAT 96
[2017-03-05] MEDS: MEROPENEM 1000 MG/NS 100 ML IV SCH ×2 (05:31)
[2017-03-05 08:00] VITALS: BP 145/89; PULSE 83; RESP 16; TEMP 98.2; O2SAT 95
[2017-03-05] MEDS: CHOLECALCIFEROL (VIT D3) 1000 UNIT TAB PO SCH (08:15)
[2017-03-05] MEDS: SEVELAMER CARBONATE 800 MG TAB PO SCH ×3 (08:15→17:02)
[2017-03-05] MEDS: MULTIVITAMIN TAB PO SCH (08:15)
[2017-03-05] MEDS: DOXYCYCLINE HYCLATE 100 MG CAP PO SCH (08:15)
[2017-03-05] MEDS: FOLIC ACID 1 MG TAB PO SCH (08:15)
[2017-03-05] MEDS: CARVEDILOL 12.5 MG TAB PO SCH ×2 (08:16→21:50)
[2017-03-05] MEDS: amLODIPine BESYLATE 5 MG TAB PO SCH (08:18)
[2017-03-05] MEDS: SODIUM CHLORIDE 0.9% FLUSH 10 ML FLUSH IV FLUSH SCH ×2 (08:23→21:50)
[2017-03-05 12:00] VITALS: BP 120/78; PULSE 86; RESP 16; TEMP 98.7; O2SAT 93
[2017-03-05] MEDS: FERROUS SULFATE 300 MG /5ML UDC PO SCH ×2 (12:40→17:02)
[2017-03-05] MEDS: ASCORBIC ACID 500 MG TAB PO SCH ×2 (12:40→17:02)
--- NOTE | 2017-03-05 15:52 | HHI.PR ---
Subjective Remarks Patient in nad. Says he feels fairly well today. Has sob with ambulation and lightheadedness.No fever or chills. No n/v/d/c. Objective Vitals Vital Signs Date Time Temp Pulse Resp B/P (MAP) Pulse Ox O2 Delivery O2 Flow Rate FiO2 03/05/17 07:40 Room Air 03/05/17 04:00 97.8 78 20 146/89 (108) 96 03/05/17 00:00 80 18 113/65 (81) 95 03/04/17 20:00 98.2 114 18 148/88 (108) 92 03/04/17 20:00 Room Air I/O 03/04/17 03/04/17 03/04/17 03/05/17 03/05/17 03/05/17 07:00 15:00 23:00 07:00 15:00 23:00 Intake Total 320 ml 600 ml 480 ml Output Total 300 ml 1300 ml 0 ml Balance 20 ml -700 ml 480 ml Intake Oral 220 ml 600 ml 480 ml IV Total 100 ml Output Urine Total 300 ml 800 ml 0 ml Hemodialysis 500 ml # Bowel Movements 0 0 Result Diagram: 03/01/17 0440 03/04/17 1300 Imaging Last Impressions Chest X-Ray 03/03/17 0600 Signed Impressions: Service Date/Time: Friday, March 03, 2017 06:01 - CONCLUSION: Persistent pleural and parenchymal changes seen in the right upper lobe. 2 right-sided chest tubes are seen at the base of the right chest. Caio Villalpando MD Thyroid Ultrasound 02/25/17 0000 Signed Impressions: Service Date/Time: Saturday, February 25, 2017 13:26 - CONCLUSION: 1. Normal ultrasound examination of the thyroid gland. 2. Abnormal appearance of the left jugular vein with apparent flow adjacent to the jugular vein wall containing small amount of debris. Consider CTA/CTV examination for better characterization and to exclude possible AV fistula. Edenilson Villarreal MD Lung Scan-V Nuclear Medicine 02/22/17 0000 Signed Impressions: Service Date/Time: Wednesday, February 22, 2017 18:56 - CONCLUSION: Intermediate probability for pulmonary embolism. Vasu Barrientos MD Objective Remarks GENERAL: Well-developed, well-nourished in no distress SKIN: Warm and dry. Hemodialysis catheter right subclavian, central line left subclavian and 2 chest tubes right lung Neck: Improved Fullness left neck CARDIOVASCULAR: Regular rate and rhythm. RESPIRATORY: No accessory muscle use. Clear to auscultation. Breath sounds equal bilaterally. GASTROINTESTINAL: Abdomen soft, non-tender, nondistended. MUSCULOSKELETAL: Extremities without clubbing, cyanosis, or edema. No obvious deformities. NEUROLOGICAL: Awake and alert. No obvious cranial nerve deficits. Motor grossly within normal limits. Five out of 5 muscle strength in the arms and legs. Normal speech. 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 Fonseca is a 56 year old male who has had a very long and complicated history of present illness. He has a known medical history of coronary artery disease status post CABG and chronic kidney disease who initially presented to the hospital on November 22, 2016 with sepsis, anemia, acute renal failure, and extensive right lung pneumonia with cavitation and underwent a right thoracotomy with VATS, lysis of adhesions, and decortication for pulmonary infiltrate in right lung and COPD on 12/30 but developed right chest tube related bronchopleural fistula. He was transferred to [facility] in [place] for further management of persistent leak/bronchopleural fistula. He was discharged on 01/22/2017. He returned following treatment at [facility] on 02/19. Bronchopleural fistula History of Right thoracotomy with VATS Persistent air leak with history of pneumothorax Empyema lung culture polymicrobial with MRSA, pseudomonas aeruginosa as (MDRO), viridans and Bacillus fragilis - status post multiple bronchoscopies with endobronchial valves and gluing performed at [facility] - Keep f/u appointment with IR physician Dr. Lopez 03/05 - continue Meropenem and doxycycline for 6 weeks (started 01/26) unless otherwise advised by ID. - ID consulted, Pulmonology consulted - Will need to try to set up outpatient home health with IV infusion but very difficult since patient is self pay Left neck fullness. TSH unremarkable. Thyroid sonogram with normal examination of the thyroid gland but abnormal appearance of the left jugular vein with apparent flow adjacent to the jugular vein wall containing small amount of debris. Radiology recommends CTA/CTV to exclude possible AV fistula. Discussed with radiology, possible carotid jugular fistula. Discussed with vascular surgery, we'll continue to observe Hypoxia. Improved -Most likely secondary to worsening of the empyema. Chest x-ray showed right consolidation and patient also had increased purulent output in the chest tube. VQ scan suggests moderate probability but that is due to the consolidation. No suspicion for any PE. -CT surgery consulted stated at the moment no indication for any surgery. -COPD Exacerbation . Improved status post prednisone End-stage renal disease on hemodialysis - Lines T[employer] following. He is getting hemodialysis which needs to be set up outpatient. 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 - continue Aranesp - Status post transfused 2 packs red blood cells on 02/22/2017 and responded appropriately. Malnutrition - Regular diet - Nepro one can 3 times a day between meals Hypertension. Improving continue Coreg and Norvasc and monitor Hemorrhoidal bleed. Improved also has diverticulosis status post colonoscopy in December 2016. EGD with gastritis and esophagitis on PPI. Denies heartburn and abdominal pain. Repeat CBC and coags unremarkable. Continue to monitor . Avoid constipation DVT prophylaxis - Patient reports being ambulatory - Recommend SCDs teds while in bed Discharge Planning patient will need shelter IV antibiotics and Outpatient HD set up. Follow-up with [facility] next week for removal of endobronchial valves We discussed at [facility] and patient will have another appointment at a later date , [facility] will call patient. Suni Garcia MD Mar 05, 2017 15:52
[2017-03-05 16:00] VITALS: BP 142/91; PULSE 92; RESP 18; TEMP 98.9; O2SAT 95
[2017-03-05 20:00] VITALS: BP 142/95; PULSE 88; RESP 18; TEMP 98.4; O2SAT 94
--- NOTE | 2017-03-05 20:05 | HHI.PR ---
Subjective Remarks Still Has some drainage from chest tubes on Right. No Fever. Still weak.Better appetite. Will go to [facility] on the . On O2 3 L. No Pain. Objective Vital Signs Date Time Temp Pulse Resp B/P (MAP) Pulse Ox O2 Delivery O2 Flow Rate FiO2 03/05/17 16:00 98.9 92 18 142/91 (108) 95 03/05/17 12:00 98.7 86 16 120/78 (92) 93 03/05/17 08:00 98.2 83 16 145/89 (107) 95 03/05/17 07:40 Room Air 03/05/17 04:00 97.8 78 20 146/89 (108) 96 03/05/17 00:00 80 18 113/65 (81) 95 I/O 03/04/17 03/04/17 03/04/17 03/05/17 03/05/17 03/05/17 07:00 15:00 23:00 07:00 15:00 23:00 Intake Total 320 ml 600 ml 480 ml 600 ml Output Total 300 ml 1300 ml 0 ml 250 ml Balance 20 ml -700 ml 480 ml 350 ml Intake Oral 220 ml 600 ml 480 ml 600 ml IV Total 100 ml Output Urine Total 300 ml 800 ml 0 ml 250 ml Hemodialysis 500 ml # Bowel Movements 0 0 1 Result Diagram: 03/01/17 0440 03/04/17 1300 Objective Remarks IN GENERAL: This is a middle-aged thinly built white male who is pale and dyspneic at rest. HEAD, EYES, EARS, NOSE, AND THROAT: Head normocephalic. Pupils reactive. Tongue is moist. Throat was clear. Nasal mucosa clear. NECK: Supple. No bruits or thyroid enlargement. CHEST: Decreased breath sounds over the right chest and Chest Tubes in place in Right chest. HEART: The heart sounds are regular S1-S2. No murmur. ABDOMEN: The abdomen is soft, protuberant without masses or organomegaly or tenderness. Bowel sounds are active. EXTREMITIES: no edema. Peripheral pulses are diminished. NEUROLOGIC: Reflexes are 1+ with no gross motor deficits. SKIN: No lesions noted. Assessment and Plan Assessment and Plan IMPRESSION 1. Right bronchopleural fistula. 2. Empyema right chest. 3. Persistent air leak with history of pneumothorax. 4. COPD, chronic bronchitis or bronchiectasis. 5. End-stage renal disease on dialysis. Plan : 1. Will continue O2 at 2 L. 2. Nebs qid Duoneb. 3. Continue antibiotics per ID. 4. IS at bedside q2h. 5. Dialysis in am. 6. Labs in am. 7.To [facility] on 03/19 ,For Revision of Bronchial valve Alison Wilson MD Mar 05, 2017 20:05
[2017-03-05] MEDS: PANTOPRAZOLE SOD 40 MG DELAYED RELEASE TAB PO SCH (21:50)
[2017-03-06 00:07] VITALS: BP 125/75; PULSE 89; RESP 18; TEMP 98.2; O2SAT 94
[2017-03-06] MEDS: DOXYCYCLINE HYCLATE 50 MG CAP PO SCH ×3 (00:11→20:50)
[2017-03-06 04:00] VITALS: BP 135/88; PULSE 81; RESP 20; TEMP 97.7; O2SAT 96
[2017-03-06] MEDS: MEROPENEM 1000 MG/NS 100 ML IV SCH ×2 (04:35)
[2017-03-06 04:59] LABS: AUTOMATED NEUTROPHIL # 5.3 TH/MM3 (1.8-7.7); BASOPHIL # 0.1 TH/MM3 (0-0.2); BASOPHIL % 0.9 % (0.0-2.0); EOSINOPHIL # 0.8 TH/MM3 (0-0.4); EOSINOPHIL % 8.9 % (0.0-4.0); HEMATOCRIT 30.8 % (39.0-51.0); HEMO FLAGS DIFF FINAL; LYMPH % 20.3 % (9.0-44.0); LYMPHOCYTE # 1.7 TH/MM3 (1.0-4.8); MEAN CELL VOLUME 93.3 FL (80.0-100.0); MEAN CORPUSCULAR HEMOGLOBIN 30.4 PG (27.0-34.0); MEAN CORPUSCULAR HGB CONC 32.6 % (32.0-36.0); MONO % 7.8 % (0.0-8.0); NEUT % 62.1 % (16.0-70.0); PLATELET COUNT 155 TH/MM3 (150-450); RED CELL DISTRIBUTION WIDTH 19.2 % (11.6-17.2); WHITE BLOOD COUNT 8.4 TH/MM3 (4.0-11.0)
[2017-03-06 05:09] LABS: BICARBONATE 29.4 MEQ/L (21.0-32.0); MAGNESIUM 1.7 MG/DL (1.5-2.5); POTASSIUM 3.7 MEQ/L (3.5-5.1)
[2017-03-06 08:01] VITALS: BP 141/89; PULSE 82; RESP 17; TEMP 98.2; O2SAT 94
[2017-03-06] MEDS: SEVELAMER CARBONATE 800 MG TAB PO SCH ×3 (09:04→19:18)
[2017-03-06] MEDS: EPOETIN ALFA 10,000 UNITS/ML VIAL IV PUSH PRN (10:01)
[2017-03-06] MEDS: GENTAMICIN SULFATE (DIALYSIS USE ONLY) 20 MG/2 ML VIAL OTHER PRN (10:01)
[2017-03-06] MEDS: HEPARIN SODIUM - IV 10,000 UNITS/10 ML VIAL PRN (10:01)
--- NOTE | 2017-03-06 10:28 | HHI.NPPN ---
Subjective General Problems: Anemia Renal Failure: Chronic, End Stage Renal Disease Interval History Seen during dialysis. No new events. (Milla Pack) Review of Systems General Constitutional: Fatigue (Milla Pack) Respiratory Lungs: SOB (Milla Pack) Cardiovascular Cardiac Remarks minor pain right lateral ribs secondary to tubes (Milla Pack) Objective Data Data Vital Signs Date Time Temp Pulse Resp B/P (MAP) Pulse Ox O2 Delivery O2 Flow Rate FiO2 03/06/17 08:01 98.2 82 17 141/89 (106) 94 03/06/17 04:00 97.7 81 20 135/88 (104) 96 03/06/17 00:07 98.2 89 18 125/75 (92) 94 03/05/17 23:11 Room Air 03/05/17 20:00 98.4 88 18 142/95 (111) 94 03/05/17 16:00 98.9 92 18 142/91 (108) 95 03/05/17 12:00 98.7 86 16 120/78 (92) 93 (Milla Pack) -: 03/06/17 0440 03/06/17 0440 Tubes & Lines: Perma-Cath (Milla Pack) Physical Exam General Appearance: Well Developed, No Acute Distress, Comfortable, Pale, Malnourished (Milla Pack) Eyes Eye Exam: Pupils Equal (Milla Pack) Throat Throat Exam: Oral Mucosa [place] & Moist (Milla Pack) Neck Neck Exam: Neck Supple (Milla Pack) Pulmonary Resp Exam: Breath Sounds Equal, Crackles, Decreased Bases (Milla Pack) Cardiology CV Exam: Regular, Normal Sinus Rhythm (Milla Pack) Gastrointestinal/Abdomen GI Exam: Soft, Non-Tender, Bowel Sounds Present (Milla Pack) Musculoskeletal MS Exam: Joints Intact, Good Strength (Milla Pack) Integumentary Skin Exam: Clear, Warm, Dry, Intact (Milla Pack) Extremeties Extremities Exam: No Edema, Pedal Pulses Palpable (Milla Pack) Neurologic Neuro Exam: Alert, Awake, Oriented, Speech Clear, Moving All Extremities (Milla Pack) Psychiatric Psych Exam: Appropriate Responses (Milla Pack) Assessment/Plan Discussed Condition With: Patient Assessment Summary: Anemia of CKD, Hypertension, End Stage Renal Disease Problem List: (1) ESRD (end stage renal disease) on dialysis ICD Codes: N18.6 - End stage renal disease; Z99.2 - Dependence on renal dialysis Plan: HD support continues MWF Dialyzed today on a 3K, 350 BFR, goal [address] for HD; will need AVF revision; hopefully will happen prior to discharge Minimal fluid removal with treatment. He still makes urine Monitor electrolytes Avoid excess IVF On Renvela for metabolic bone disorder, intermittently evaluate phosphorus level PTH is not elevated (2) Malnutrition ICD Codes: E46 - Malnutrition Status: Acute Plan: High protein diet, add supplements (3) Empyema lung ICD Codes: J86.9 - Pyothorax without fistula Plan: On meropenem and doxycycline Monitor the patient clinically He will need antibiotic therapy until 03/09. To go for follow up at [facility] next week possibly. (4) Anemia ICD Codes: D64.9 - Anemia Status: Chronic Plan: On Epogen with HD, high dose Off Aranesp Transfused since admission Given Venofer IV Plan . (Milla Pack) Plan patient was seen and examined. Agree with above assessment and plan. (Jim Zuluaga MD) Milla Pack Mar 06, 2017 10:28 Jim Zuluaga MD Mar 06, 2017 12:37
--- NOTE | 2017-03-06 11:33 | HHI.PR ---
Subjective Remarks The patient was seen in dialysis today. He appears in not acute distress. He is sedated with hemodialysis since plan and the fact that he needs to pay for dialysis. Otherwise he has no complaints says he is getting short of breath with ambulation. Says he is feeling improving. No shortness of breath at this time. No fever or chills. No chest pain. Objective Vitals Vital Signs Date Time Temp Pulse Resp B/P (MAP) Pulse Ox O2 Delivery O2 Flow Rate FiO2 03/06/17 08:01 98.2 82 17 141/89 (106) 94 03/06/17 04:00 97.7 81 20 135/88 (104) 96 03/06/17 00:07 98.2 89 18 125/75 (92) 94 03/05/17 23:11 Room Air 03/05/17 20:00 98.4 88 18 142/95 (111) 94 03/05/17 16:00 98.9 92 18 142/91 (108) 95 03/05/17 12:00 98.7 86 16 120/78 (92) 93 I/O 03/05/17 03/05/17 03/05/17 03/06/17 03/06/17 03/06/17 07:00 15:00 23:00 07:00 15:00 23:00 Intake Total 480 ml 600 ml Output Total 0 ml 250 ml Balance 480 ml 350 ml Intake Oral 480 ml 600 ml Output Urine Total 0 ml 250 ml # Voids 2 # Bowel Movements 0 1 0 Result Diagram: 03/06/17 0440 03/06/17 0440 Imaging Last Impressions Chest X-Ray 03/03/17 0600 Signed Impressions: Service Date/Time: Friday, March 03, 2017 06:01 - CONCLUSION: Persistent pleural and parenchymal changes seen in the right upper lobe. 2 right-sided chest tubes are seen at the base of the right chest. Caio Villalpando MD Thyroid Ultrasound 02/25/17 0000 Signed Impressions: Service Date/Time: Saturday, February 25, 2017 13:26 - CONCLUSION: 1. Normal ultrasound examination of the thyroid gland. 2. Abnormal appearance of the left jugular vein with apparent flow adjacent to the jugular vein wall containing small amount of debris. Consider CTA/CTV examination for better characterization and to exclude possible AV fistula. Edenilson Villarreal MD Lung Scan-VQ Nuclear Medicine 02/22/17 0000 Signed Impressions: Service Date/Time: Wednesday, February 22, 2017 18:56 - CONCLUSION: Intermediate probability for pulmonary embolism. Vasu Barrientos MD Objective Remarks GENERAL: Well-developed, well-nourished in no distress SKIN: Warm and dry. Hemodialysis catheter right subclavian, central line left subclavian and 2 chest tubes right lung Neck: Improved Fullness left neck CARDIOVASCULAR: Regular rate and rhythm. RESPIRATORY: No accessory muscle use. Clear to auscultation. Breath sounds equal bilaterally. GASTROINTESTINAL: Abdomen soft, non-tender, nondistended. MUSCULOSKELETAL: Extremities without clubbing, cyanosis, or edema. No obvious deformities. NEUROLOGICAL: Awake and alert. No obvious cranial nerve deficits. Motor grossly within normal limits. Five out of 5 muscle strength in the arms and legs. Normal speech. 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 Fonseca is a 56 year old male who has had a very long and complicated history of present illness. He has a known medical history of coronary artery disease status post CABG and chronic kidney disease who initially presented to the hospital on November 22, 2016 with sepsis, anemia, acute renal failure, and extensive right lung pneumonia with cavitation and underwent a right thoracotomy with VATS, lysis of adhesions, and decortication for pulmonary infiltrate in right lung and COPD on 12/30 but developed right chest tube related bronchopleural fistula. He was transferred to [facility] in [place] for further management of persistent leak/bronchopleural fistula. He was discharged on 01/22/2017. He returned following treatment at [facility] on 02/19. Bronchopleural fistula History of Right thoracotomy with VATS Persistent air leak with history of pneumothorax Empyema lung culture polymicrobial with MRSA, pseudomonas aeruginosa as (MDRO), viridans and Bacillus fragilis - status post multiple bronchoscopies with endobronchial valves and gluing performed at [facility] - Keep f/u appointment with IR physician Dr. Lopez 03/05 - continue Meropenem and doxycycline for 6 weeks (started 01/26) unless otherwise advised by ID. - ID consulted, Pulmonology consulted - Will need to try to set up outpatient home health with IV infusion but very difficult since patient is self pay Left neck fullness. TSH unremarkable. Thyroid sonogram with normal examination of the thyroid gland but abnormal appearance of the left jugular vein with apparent flow adjacent to the jugular vein wall containing small amount of debris. Radiology recommends CTA/CTV to exclude possible AV fistula. Discussed with radiology, possible carotid jugular fistula. Discussed with vascular surgery, we'll continue to observe Hypoxia. Improved -Most likely secondary to worsening of the empyema. Chest x-ray showed right consolidation and patient also had increased purulent output in the chest tube. VQ scan suggests moderate probability but that is due to the consolidation. No suspicion for any PE. -CT surgery consulted stated at the moment no indication for any surgery. -COPD Exacerbation . Improved status post prednisone End-stage renal disease on hemodialysis - Filler Machine Operator following. He is getting hemodialysis which needs to be set up outpatient. - Per reclamation engineer patient will need a revision of the AV fistula - Avoid nephrotoxins - Monitor electrolytes Anemia, iron deficiency vs CKD or combination -Continue with ferrous sulfate 300 mg liquid twice a day with vitamin C 500 mg twice a day administered at the same time. - continue Aranesp - Status post transfused 2 packs red blood cells on 02/22/2017 and responded appropriately. Malnutrition - Regular diet - Nepro one can 3 times a day between meals Hypertension. Improving continue Coreg and Norvasc and monitor Hemorrhoidal bleed. Improved also has diverticulosis status post colonoscopy in December 2016. EGD with gastritis and esophagitis on PPI. Denies heartburn and abdominal pain. Repeat CBC and coags unremarkable. Continue to monitor . Avoid constipation DVT prophylaxis - Patient reports being ambulatory - Recommend SCDs teds while in bed Discharge Planning patient will need fci IV antibiotics and Outpatient HD set up. CM is ff for DC plan. Follow-up with [facility] for removal of endobronchial valves, has appointment rescheduled for 03/19/17. Suni Garcia MD Mar 06, 2017 11:33
[2017-03-06] MEDS: CARVEDILOL 12.5 MG TAB PO SCH ×2 (13:52→20:49)
[2017-03-06] MEDS: amLODIPine BESYLATE 5 MG TAB PO SCH (13:52)
[2017-03-06] MEDS: CHOLECALCIFEROL (VIT D3) 1000 UNIT TAB PO SCH (13:52)
[2017-03-06] MEDS: ASCORBIC ACID 500 MG TAB PO SCH ×2 (13:52→17:46)
[2017-03-06] MEDS: FOLIC ACID 1 MG TAB PO SCH (13:53)
[2017-03-06] MEDS: MULTIVITAMIN TAB PO SCH (13:53)
[2017-03-06] MEDS: FERROUS SULFATE 300 MG /5ML UDC PO SCH ×2 (13:53→19:17)
[2017-03-06] MEDS: SODIUM CHLORIDE 0.9% FLUSH 10 ML FLUSH IV FLUSH SCH ×2 (13:54→20:50)
[2017-03-06 16:01] VITALS: BP 112/68; PULSE 83; RESP 18; TEMP 98.3; O2SAT 94
--- NOTE | 2017-03-06 18:34 | HHI.PR ---
Subjective Remarks Still Has drainage from chest tubes on Right. No Fever. Remains weak.Better appetite. Will go to [facility] on the . On O2 2 L. No Pain. Objective Vital Signs Date Time Temp Pulse Resp B/P (MAP) Pulse Ox O2 Delivery O2 Flow Rate FiO2 03/06/17 16:01 98.3 83 18 112/68 (83) 94 03/06/17 08:45 Room Air 03/06/17 08:01 98.2 82 17 141/89 (106) 94 03/06/17 04:00 97.7 81 20 135/88 (104) 96 03/06/17 00:07 98.2 89 18 125/75 (92) 94 03/05/17 23:11 Room Air 03/05/17 20:00 98.4 88 18 142/95 (111) 94 I/O 03/05/17 03/05/17 03/05/17 03/06/17 03/06/17 03/06/17 07:00 15:00 23:00 07:00 15:00 23:00 Intake Total 480 ml 600 ml Output Total 0 ml 250 ml 500 ml Balance 480 ml 350 ml -500 ml Intake Oral 480 ml 600 ml Output Urine Total 0 ml 250 ml Hemodialysis 500 ml # Voids 2 # Bowel Movements 0 1 0 Result Diagram: 03/06/1743903/06/17 0440 Objective Remarks IN GENERAL: This is a middle-aged thinly built white male who is pale and not dyspneic at rest. HEAD, EYES, EARS, NOSE, AND THROAT: Head normocephalic. Pupils reactive. Tongue is moist. Throat was clear. Nasal mucosa clear. NECK: Supple. No bruits or thyroid enlargement. CHEST: Decreased breath sounds over the right chest and Chest Tubes in place in Right chest. HEART: The heart sounds are regular S1-S2. No murmur. ABDOMEN: The abdomen is soft, protuberant without masses or organomegaly or tenderness. Bowel sounds are active. EXTREMITIES: no edema. Peripheral pulses are diminished. NEUROLOGIC: Reflexes are 1+ with no gross motor deficits. SKIN: No lesions noted. Assessment and Plan Assessment and Plan IMPRESSION 1. Right bronchopleural fistula. 2. Empyema right chest. 3. Persistent air leak with history of pneumothorax. 4. COPD, chronic bronchitis or bronchiectasis. 5. End-stage renal disease on dialysis. Plan : 1. Will use O2 PRN at 2 L 2. Nebs BID Duoneb. 3. Continue antibiotics per ID. 4. IS at bedside q2h. 5. Dialysis thursday 6. Labs in am. 7.To [facility] on 03/19 ,For Revision of Bronchial valve Ailson Wilson MD Mar 06, 2017 18:34
[2017-03-06 20:00] VITALS: BP 128/88; PULSE 90; RESP 20; TEMP 98.5; O2SAT 93
[2017-03-06] MEDS: PANTOPRAZOLE SOD 40 MG DELAYED RELEASE TAB PO SCH (20:49)
[2017-03-07] VITALS: BP 110/60; PULSE 84; RESP 20; TEMP 98.3; O2SAT 94
[2017-03-07 04:00] VITALS: BP 131/73; PULSE 82; RESP 20; TEMP 98.4; O2SAT 95
[2017-03-07] MEDS: MEROPENEM 1000 MG/NS 100 ML IV SCH ×2 (05:10)
[2017-03-07 08:00] VITALS: BP 134/80; PULSE 78; RESP 20; TEMP 98.6; O2SAT 95
[2017-03-07] MEDS: DOXYCYCLINE HYCLATE 50 MG CAP PO SCH ×2 (09:00→19:49)
[2017-03-07] MEDS: amLODIPine BESYLATE 5 MG TAB PO SCH (09:44)
[2017-03-07] MEDS: FOLIC ACID 1 MG TAB PO SCH (09:44)
[2017-03-07] MEDS: CHOLECALCIFEROL (VIT D3) 1000 UNIT TAB PO SCH (09:45)
[2017-03-07] MEDS: SODIUM CHLORIDE 0.9% FLUSH 10 ML FLUSH IV FLUSH SCH ×2 (09:45→19:49)
[2017-03-07] MEDS: SEVELAMER CARBONATE 800 MG TAB PO SCH ×3 (09:45→18:17)
[2017-03-07] MEDS: CARVEDILOL 12.5 MG TAB PO SCH ×2 (09:45→19:50)
[2017-03-07] MEDS: MULTIVITAMIN TAB PO SCH (09:49)
[2017-03-07 12:00] VITALS: BP 138/92; PULSE 90; RESP 20; TEMP 98; O2SAT 97
--- NOTE | 2017-03-07 12:10 | HHI.PR ---
Subjective Remarks With multiple questions, all questions answered to the best of my ability. No fever or chills. No chest pain or sob. he is sob and with lightheadedness if he is walking with PT for a long period. [place] tired after HD, feels better today. Objective Vitals Vital Signs Date Time Temp Pulse Resp B/P (MAP) Pulse Ox O2 Delivery O2 Flow Rate FiO2 03/07/17 08:00 98.6 78 20 134/80 (98) 95 03/07/17 04:00 98.4 82 20 131/73 (92) 95 03/07/17 00:00 98.3 84 20 110/60 (77) 94 03/06/17 20:00 98.5 90 20 128/88 (101) 93 03/06/17 19:00 94 Room Air 03/06/17 16:01 98.3 83 18 112/68 (83) 94 I/O 03/06/17 03/06/17 03/06/17 03/07/17 03/07/17 03/07/17 07:00 15:00 23:00 07:00 15:00 23:00 Intake Total 600 ml 480 ml Output Total 500 ml 400 ml Balance -500 ml 200 ml 480 ml Intake Oral 600 ml 480 ml Output Urine Total 400 ml Hemodialysis 500 ml # Voids 2 3 # Bowel Movements 0 0 0 Result Diagram: 03/06/1743903/06/17439 Objective Remarks GENERAL: Well-developed, well-nourished in no distress SKIN: Warm and dry. Hemodialysis catheter right subclavian, central line left subclavian and 2 chest tubes right lung Neck: Improved Fullness left neck CARDIOVASCULAR: Regular rate and rhythm. RESPIRATORY: No accessory muscle use. Clear to auscultation. Breath sounds equal bilaterally. GASTROINTESTINAL: Abdomen soft, non-tender, nondistended. MUSCULOSKELETAL: Extremities without clubbing, cyanosis, or edema. No obvious deformities. NEUROLOGICAL: Awake and alert. No obvious cranial nerve deficits. Motor grossly within normal limits. Five out of 5 muscle strength in the arms and legs. Normal speech. 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 Fonseca is a 56 year old male who has had a very long and complicated history of present illness. He has a known medical history of coronary artery disease status post CABG and chronic kidney disease who initially presented to the hospital on November 22, 2016 with sepsis, anemia, acute renal failure, and extensive right lung pneumonia with cavitation and underwent a right thoracotomy with VATS, lysis of adhesions, and decortication for pulmonary infiltrate in right lung and COPD on 12/30 but developed right chest tube related bronchopleural fistula. He was transferred to [facility] in [place] for further management of persistent leak/bronchopleural fistula. He was discharged on 01/22/2017. He returned following treatment at [facility] on 02/19. Bronchopleural fistula History of Right thoracotomy with VATS Persistent air leak with history of pneumothorax Empyema lung culture polymicrobial with MRSA, pseudomonas aeruginosa as (MDRO), viridans and Bacillus fragilis - status post multiple bronchoscopies with endobronchial valves and gluing performed at [facility] - Keep f/u appointment with IR physician Dr. Lopez 03/05 - continue Meropenem and doxycycline for 6 weeks (started 01/26) unless otherwise advised by ID. - ID consulted, Pulmonology consulted - Will need to try to set up outpatient home health with IV infusion but very difficult since patient is self pay Left neck fullness. TSH unremarkable. Thyroid sonogram with normal examination of the thyroid gland but abnormal appearance of the left jugular vein with apparent flow adjacent to the jugular vein wall containing small amount of debris. Radiology recommends CTA/CTV to exclude possible AV fistula. Discussed with radiology, possible carotid jugular fistula. Discussed with vascular surgery, we'll continue to observe Hypoxia. Improved -Most likely secondary to worsening of the empyema. Chest x-ray showed right consolidation and patient also had increased purulent output in the chest tube. VQ scan suggests moderate probability but that is due to the consolidation. No suspicion for any PE. -CT surgery consulted stated at the moment no indication for any surgery. -COPD Exacerbation . Improved status post prednisone End-stage renal disease on hemodialysis - Manager Helpdesk following. He is getting hemodialysis which needs to be set up outpatient. - Per truck driver helper patient will need a revision of the AV fistula - Avoid nephrotoxins - Monitor electrolytes Anemia, iron deficiency vs CKD or combination -Continue with ferrous sulfate 300 mg liquid twice a day with vitamin C 500 mg twice a day administered at the same time. - continue Aranesp - Status post transfused 2 packs red blood cells on 02/22/2017 and responded appropriately. Malnutrition - Regular diet - Nepro one can 3 times a day between meals Hypertension. Improving continue Coreg and Norvasc and monitor Hemorrhoidal bleed. Improved also has diverticulosis status post colonoscopy in December 2016. EGD with gastritis and esophagitis on PPI. Denies heartburn and abdominal pain. Repeat CBC and coags unremarkable. Continue to monitor . Avoid constipation DVT prophylaxis - Patient reports being ambulatory - Recommend SCDs teds while in bed Discharge Planning patient will need strapping machine tender IV antibiotics and Outpatient HD set up. CM is ff for DC plan. Follow-up with [facility] for removal of endobronchial valves, has appointment rescheduled for 03/19/17. Suni Garcia MD Mar 07, 2017 12:10
[2017-03-07] MEDS: FERROUS SULFATE 300 MG /5ML UDC PO SCH ×2 (13:12→18:17)
[2017-03-07] MEDS: ASCORBIC ACID 500 MG TAB PO SCH ×2 (13:12→18:17)
[2017-03-07 16:00] VITALS: BP 134/90; PULSE 85; RESP 20; TEMP 98.3; O2SAT 95
[2017-03-07] MEDS: PANTOPRAZOLE SOD 40 MG DELAYED RELEASE TAB PO SCH (19:49)
[2017-03-07 20:00] VITALS: BP 137/86; PULSE 89; RESP 20; TEMP 98.4; O2SAT 94
[2017-03-08] VITALS: BP 147/90; PULSE 85; RESP 20; TEMP 97.4; O2SAT 96; O2SAT 97
[2017-03-08] MEDS: diphenhydrAMINE HCL 25 MG CAP PO PRN (02:13)
[2017-03-08] MEDS: MEROPENEM 1000 MG/NS 100 ML IV SCH ×2 (03:56)
[2017-03-08 05:00] VITALS: BP 104/55; PULSE 73; RESP 18; TEMP 97.4; O2SAT 95
[2017-03-08 08:00] VITALS: BP 153/85; PULSE 84; RESP 20; TEMP 97.5; O2SAT 97
[2017-03-08] MEDS: DOXYCYCLINE HYCLATE 50 MG CAP PO SCH ×2 (09:00→22:22)
[2017-03-08] MEDS: SODIUM CHLORIDE 0.9% FLUSH 10 ML FLUSH IV FLUSH SCH ×2 (09:00→22:24)
[2017-03-08] MEDS: CHOLECALCIFEROL (VIT D3) 1000 UNIT TAB PO SCH (09:03)
[2017-03-08] MEDS: CARVEDILOL 12.5 MG TAB PO SCH ×2 (09:03→22:22)
[2017-03-08] MEDS: SEVELAMER CARBONATE 800 MG TAB PO SCH ×3 (09:03→16:47)
[2017-03-08] MEDS: MULTIVITAMIN TAB PO SCH (09:03)
[2017-03-08] MEDS: FOLIC ACID 1 MG TAB PO SCH (09:03)
[2017-03-08] MEDS: amLODIPine BESYLATE 5 MG TAB PO SCH (09:03)
--- NOTE | 2017-03-08 09:20 | HHI.PR ---
Subjective Remarks In bed, appears tired. Denies chest pain or sob. + cough at times . N o fever or chills. No n/v/d/c. Objective Vitals Vital Signs Date Time Temp Pulse Resp B/P (MAP) Pulse Ox O2 Delivery O2 Flow Rate FiO2 03/08/17 05:00 97.4 73 18 104/55 (71) 95 03/08/17 04:00 Room Air 03/08/17 00:00 97.4 85 20 147/90 (109) 96 03/08/17 00:00 Room Air 03/08/17 00:00 97.4 85 20 147/90 (109) 97 03/07/17 20:00 Room Air 03/07/17 20:00 98.4 89 20 137/86 (103) 94 03/07/17 16:00 98.3 85 20 134/90 (105) 95 03/07/17 12:00 98.0 90 20 138/92 (107) 97 I/O 03/07/17 03/07/17 03/07/17 03/08/17 03/08/17 03/08/17 07:00 15:00 23:00 07:00 15:00 23:00 Intake Total 480 ml 720 ml 340 ml Balance 480 ml 720 ml 340 ml Intake Oral 480 ml 720 ml 240 ml IV Total 100 ml # Voids 3 4 3 # Bowel Movements 0 2 0 Result Diagram: 03/06/17 0440 03/06/17 0440 Imaging Last Impressions Chest X-Ray 03/03/17 0600 Signed Impressions: Service Date/Time: Friday, March 03, 2017 06:01 - CONCLUSION: Persistent pleural and parenchymal changes seen in the right upper lobe. 2 right-sided chest tubes are seen at the base of the right chest. Caio Villalpando MD Thyroid Ultrasound 02/25/17 0000 Signed Impressions: Service Date/Time: Saturday, February 25, 2017 13:26 - CONCLUSION: 1. Normal ultrasound examination of the thyroid gland. 2. Abnormal appearance of the left jugular vein with apparent flow adjacent to the jugular vein wall containing small amount of debris. Consider CTA/CTV examination for better characterization and to exclude possible AV fistula. Edenilson Villarreal MD Lung Scan- Nuclear Medicine 02/22/17 0000 Signed Impressions: Service Date/Time: Wednesday, February 22, 2017 18:56 - CONCLUSION: Intermediate probability for pulmonary embolism. Vasu Barrientos MD Objective Remarks GENERAL: Well-developed, well-nourished in no distress SKIN: Warm and dry. Hemodialysis catheter right subclavian, central line left subclavian and 2 chest tubes right lung Neck: Improved Fullness left neck CARDIOVASCULAR: Regular rate and rhythm. RESPIRATORY: No accessory muscle use. Clear to auscultation. Breath sounds equal bilaterally. GASTROINTESTINAL: Abdomen soft, non-tender, nondistended. MUSCULOSKELETAL: Extremities without clubbing, cyanosis, or edema. No obvious deformities. NEUROLOGICAL: Awake and alert. No obvious cranial nerve deficits. Motor grossly within normal limits. Five out of 5 muscle strength in the arms and legs. Normal speech. 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 Fonseca is a 56 year old male who has had a very long and complicated history of present illness. He has a known medical history of coronary artery disease status post CABG and chronic kidney disease who initially presented to the hospital on November 22, 2016 with sepsis, anemia, acute renal failure, and extensive right lung pneumonia with cavitation and underwent a right thoracotomy with VATS, lysis of adhesions, and decortication for pulmonary infiltrate in right lung and COPD on 12/30 but developed right chest tube related bronchopleural fistula. He was transferred to [facility] in [place] for further management of persistent leak/bronchopleural fistula. He was discharged on 01/22/2017. He returned following treatment at [facility] on 02/19. Bronchopleural fistula History of Right thoracotomy with VATS Persistent air leak with history of pneumothorax Empyema lung culture polymicrobial with MRSA, pseudomonas aeruginosa as (MDRO), viridans and Bacillus fragilis - status post multiple bronchoscopies with endobronchial valves and gluing performed at [facility] - Keep f/u appointment with IR physician Dr. Lopez 03/05 - continue Meropenem and doxycycline for 6 weeks (started 01/26) unless otherwise advised by ID. - ID consulted, Pulmonology consulted - Will need to try to set up outpatient home health with IV infusion but very difficult since patient is self pay Left neck fullness. TSH unremarkable. Thyroid sonogram with normal examination of the thyroid gland but abnormal appearance of the left jugular vein with apparent flow adjacent to the jugular vein wall containing small amount of debris. Radiology recommends CTA/CTV to exclude possible AV fistula. Discussed with radiology, possible carotid jugular fistula. Discussed with vascular surgery, we'll continue to observe Hypoxia. Resolved now sattign well on room air -Most likely secondary to worsening of the empyema. Chest x-ray showed right consolidation and patient also had increased purulent output in the chest tube. VQ scan suggests moderate probability but that is due to the consolidation. No suspicion for any PE. -CT surgery consulted stated at the moment no indication for any surgery. -COPD Exacerbation . Improved status post prednisone End-stage renal disease on hemodialysis - International Operations Manager following. He is getting hemodialysis which needs to be set up outpatient. - Per social media project manager patient will need a revision of the AV fistula - Avoid nephrotoxins - Monitor electrolytes Anemia, iron deficiency vs CKD or combination -Continue with ferrous sulfate 300 mg liquid twice a day with vitamin C 500 mg twice a day administered at the same time. - continue Aranesp - Status post transfused 2 packs red blood cells on 02/22/2017 and responded appropriately. Malnutrition - Regular diet - Nepro one can 3 times a day between meals Hypertension. Improving continue Coreg and Norvasc and monitor Hemorrhoidal bleed. Improved also has diverticulosis status post colonoscopy in December 2016. EGD with gastritis and esophagitis on PPI. Denies heartburn and abdominal pain. Repeat CBC and coags unremarkable. Continue to monitor . Avoid constipation DVT prophylaxis - Patient reports being ambulatory - Recommend SCDs teds while in bed Discharge Planning patient will need emt intermediate IV antibiotics and Outpatient HD set up. CM is ff for DC plan. Follow-up with [facility] for removal of endobronchial valves, has appointment rescheduled for 03/19/17. Suni Garcia MD Mar 08, 2017 09:20
[2017-03-08 12:00] VITALS: BP 157/92; PULSE 84; RESP 20; TEMP 97.5; O2SAT 96
[2017-03-08] MEDS: ASCORBIC ACID 500 MG TAB PO SCH ×2 (12:44→16:48)
[2017-03-08] MEDS: FERROUS SULFATE 300 MG /5ML UDC PO SCH ×2 (12:45→16:48)
[2017-03-08 16:00] VITALS: BP 164/105; PULSE 89; RESP 20; TEMP 98.3; O2SAT 97
[2017-03-08 20:00] VITALS: BP 140/85; PULSE 91; RESP 16; TEMP 98.3; O2SAT 96
[2017-03-08] MEDS: PANTOPRAZOLE SOD 40 MG DELAYED RELEASE TAB PO SCH (22:21)
[2017-03-09] VITALS: BP 147/92; PULSE 85; RESP 16; TEMP 98.5; O2SAT 93
[2017-03-09 04:00] VITALS: BP 140/89; PULSE 86; RESP 16; TEMP 98.2; O2SAT 94
[2017-03-09] MEDS: MEROPENEM 1000 MG/NS 100 ML IV SCH ×2 (04:17)
[2017-03-09 08:00] VITALS: BP 141/78; PULSE 79; RESP 18; TEMP 98.1; O2SAT 96
[2017-03-09] MEDS: amLODIPine BESYLATE 5 MG TAB PO SCH (09:28)
[2017-03-09] MEDS: MULTIVITAMIN TAB PO SCH (09:28)
[2017-03-09] MEDS: FOLIC ACID 1 MG TAB PO SCH (09:28)
[2017-03-09] MEDS: SEVELAMER CARBONATE 800 MG TAB PO SCH ×3 (09:28→18:45)
[2017-03-09] MEDS: CHOLECALCIFEROL (VIT D3) 1000 UNIT TAB PO SCH (09:28)
[2017-03-09] MEDS: CARVEDILOL 12.5 MG TAB PO SCH ×2 (09:28→21:08)
[2017-03-09] MEDS: SODIUM CHLORIDE 0.9% FLUSH 10 ML FLUSH IV FLUSH SCH ×2 (09:31→21:00)
[2017-03-09] MEDS: DOXYCYCLINE HYCLATE 50 MG CAP PO SCH ×2 (09:41→21:07)
--- NOTE | 2017-03-09 10:21 | HHI.PR ---
Subjective Remarks Paged by the nurse, as concern PICC not in place, will do CXR, reviewed lines in good position continue HD, abx. Patient denies any chest pain or sob. He feel sleepy today. No n/v/d/c. Objective Vitals Vital Signs Date Time Temp Pulse Resp B/P (MAP) Pulse Ox O2 Delivery O2 Flow Rate FiO2 03/09/17 08:00 98.1 79 18 141/78 (99) 96 03/09/17 08:00 Room Air 03/09/17 04:00 98.2 86 16 140/89 (106) 94 03/09/17 02:26 Room Air 03/09/17 00:00 98.5 85 16 147/92 (110) 93 03/08/17 20:00 98.3 91 16 140/85 (103) 96 03/08/17 16:00 98.3 89 20 164/105 (124) 97 03/08/17 12:00 97.5 84 20 157/92 (113) 96 I/O 03/08/17 03/08/17 03/08/17 03/09/17 03/09/17 03/09/17 07:00 15:00 23:00 07:00 15:00 23:00 Intake Total 340 ml 1440 ml 940 ml Balance 340 ml 1440 ml 940 ml Intake Oral 240 ml 1440 ml 840 ml IV Total 100 ml 100 ml # Voids 3 4 3 # Bowel Movements 0 1 Result Diagram: 03/06/17 0440 03/06/17 0440 Imaging Last Impressions Chest X-Ray 03/09/17 0000 Signed Impressions: Service Date/Time: Thursday, March 09, 2017 10:46 - CONCLUSION: 1. Left PICC distal tip is in appropriate position within the SVC. 2. Stable changes in the right lung with consolidation and cavitation in the upper lobe. No pneumothorax is present. Caio Unger MD Thyroid Ultrasound 02/25/17 0000 Signed Impressions: Service Date/Time: Saturday, February 25, 2017 13:26 - CONCLUSION: 1. Normal ultrasound examination of the thyroid gland. 2. Abnormal appearance of the left jugular vein with apparent flow adjacent to the jugular vein wall containing small amount of debris. Consider CTA/CTV examination for better characterization and to exclude possible AV fistula. Edenilson Villarreal MD Lung Scan-VQ Nuclear Medicine 02/22/17 0000 Signed Impressions: Service Date/Time: Wednesday, February 22, 2017 18:56 - CONCLUSION: Intermediate probability for pulmonary embolism. Vasu Barrientos MD Objective Remarks GENERAL: Well-developed, well-nourished in no distress SKIN: Warm and dry. Hemodialysis catheter right subclavian, central line left subclavian and 2 chest tubes right lung Neck: Improved Fullness left neck CARDIOVASCULAR: Regular rate and rhythm. RESPIRATORY: No accessory muscle use. Clear to auscultation. Breath sounds equal bilaterally. GASTROINTESTINAL: Abdomen soft, non-tender, nondistended. MUSCULOSKELETAL: Extremities without clubbing, cyanosis, or edema. No obvious deformities. NEUROLOGICAL: Awake and alert. No obvious cranial nerve deficits. Motor grossly within normal limits. Five out of 5 muscle strength in the arms and legs. Normal speech. 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 Fonseca is a 56 year old male who has had a very long and complicated history of present illness. He has a known medical history of coronary artery disease status post CABG and chronic kidney disease who initially presented to the hospital on November 22, 2016 with sepsis, anemia, acute renal failure, and extensive right lung pneumonia with cavitation and underwent a right thoracotomy with VATS, lysis of adhesions, and decortication for pulmonary infiltrate in right lung and COPD on 12/30 but developed right chest tube related bronchopleural fistula. He was transferred to [facility] in [place] for further management of persistent leak/bronchopleural fistula. He was discharged on 01/22/2017. He returned following treatment at [facility] on 02/19. Bronchopleural fistula History of Right thoracotomy with VATS Persistent air leak with history of pneumothorax Empyema lung culture polymicrobial with MRSA, pseudomonas aeruginosa as (MDRO), viridans and Bacillus fragilis - status post multiple bronchoscopies with endobronchial valves and gluing performed at [facility] - Keep f/u appointment with IR physician Dr. Lopez 03/05 - continue Meropenem and doxycycline for 6 weeks (started 01/26) unless otherwise advised by ID. - ID consulted, Pulmonology consulted - Will need to try to set up outpatient home health with IV infusion but very difficult since patient is self pay Left neck fullness. TSH unremarkable. Thyroid sonogram with normal examination of the thyroid gland but abnormal appearance of the left jugular vein with apparent flow adjacent to the jugular vein wall containing small amount of debris. Radiology recommends CTA/CTV to exclude possible AV fistula. Discussed with radiology, possible carotid jugular fistula. Discussed with vascular surgery, we'll continue to observe Hypoxia. Resolved now sattign well on room air -Most likely secondary to worsening of the empyema. Chest x-ray showed right consolidation and patient also had increased purulent output in the chest tube. VQ scan suggests moderate probability but that is due to the consolidation. No suspicion for any PE. -CT surgery consulted stated at the moment no indication for any surgery. -COPD Exacerbation . Improved status post prednisone End-stage renal disease on hemodialysis - Asbestos Remover following. He is getting hemodialysis which needs to be set up outpatient. - Per general foreman patient will need a revision of the AV fistula - Avoid nephrotoxins - Monitor electrolytes Anemia, iron deficiency vs CKD or combination -Continue with ferrous sulfate 300 mg liquid twice a day with vitamin C 500 mg twice a day administered at the same time. - continue Aranesp - Status post transfused 2 packs red blood cells on 02/22/2017 and responded appropriately. Malnutrition - Regular diet - Nepro one can 3 times a day between meals Hypertension. Improving continue Coreg and Norvasc and monitor Hemorrhoidal bleed. Improved also has diverticulosis status post colonoscopy in December 2016. EGD with gastritis and esophagitis on PPI. Denies heartburn and abdominal pain. Repeat CBC and coags unremarkable. Continue to monitor . Avoid constipation DVT prophylaxis - Patient reports being ambulatory - Recommend SCDs teds while in bed Discharge Planning patient will need fdc IV antibiotics and Outpatient HD set up. CM is ff for DC plan. Follow-up with [facility] for removal of endobronchial valves, has appointment rescheduled for 03/19/17. Suni Garcia MD Mar 09, 2017 10:21
--- NOTE | 2017-03-09 11:27 | RADRPT ---
EXAM DATE/TIME: 03/09/2017 10:46 [place] COMPARISON: CHEST SINGLE AP, March 03, 2017, 6:01. INDICATIONS : Check line placement. MEDICAL HISTORY : Renal disease, end stage. Cardiovascular disease. Hypertension. SURGICAL HISTORY : CABG. thoracotomy ENCOUNTER: Initial ACUITY: 4 - 6 days PAIN SCORE: 2/10 LOCATION: Right chest FINDINGS: Portable AP view of the chest demonstrates a normal-sized cardiac silhouette in this patient post med vicente sternotomy and CABG. Right IJ tunneled dialysis catheter distal tips are at the cavoatrial juncti on, stable from the prior study. Left upper extremity PICC is present with distal tip in the superior vena cava. There is a right lung volume loss with right upper lobe parenchymal opacity with areas of cavitation. Some type of metallic stent type devices overlie the right upper lung zone and right hil ar region. There are 2 chest tubes in the inferior right hemithorax. No pneumothorax is seen. CONCLUSION: 1. Left PICC distal tip is in appropriate position within the SVC. 2. Stable changes in the right lung with consolidation and cavitation in the upper lobe. No pneumotho rax is present. Caio Unger MD on March 09, 2017 at 11:22 Board Certified Radiologist. This report was verified electronically.
[2017-03-09 12:00] VITALS: BP 143/89; PULSE 85; RESP 20; TEMP 98.3; O2SAT 94
[2017-03-09] MEDS: ASCORBIC ACID 500 MG TAB PO SCH ×2 (12:00→18:44)
[2017-03-09] MEDS: FERROUS SULFATE 300 MG /5ML UDC PO SCH ×2 (12:00→18:44)
--- NOTE | 2017-03-09 13:18 | HHI.NPPN ---
Subjective General Problems: Anemia Renal Failure: Chronic, End Stage Renal Disease Interval History He is ambulatory. To have HD today Review of Systems General Constitutional: Fatigue Respiratory Lungs: SOB Cardiovascular Cardiac Remarks minor pain right lateral ribs secondary to tubes Objective Data Data Vital Signs Date Time Temp Pulse Resp B/P (MAP) Pulse Ox O2 Delivery O2 Flow Rate FiO2 03/09/17 08:00 98.1 79 18 141/78 (99) 96 03/09/17 08:00 Room Air 03/09/17 04:00 98.2 86 16 140/89 (106) 94 03/09/17 02:26 Room Air 03/09/17 00:00 98.5 85 16 147/92 (110) 93 03/08/17 20:00 98.3 91 16 140/85 (103) 96 03/08/17 16:00 98.3 89 20 164/105 (124) 97 -: 03/06/17 0440 03/06/17 0440 Tubes & Lines: Perma-Cath Physical Exam General Appearance: Well Developed, No Acute Distress, Comfortable, Pale, Malnourished Eyes Eye Exam: Pupils Equal Throat Throat Exam: Oral Mucosa Naches & Moist Neck Neck Exam: Neck Supple Pulmonary Resp Exam: Breath Sounds Equal, Crackles, Decreased Bases Cardiology CV Exam: Regular, Normal Sinus Rhythm Gastrointestinal/Abdomen GI Exam: Soft, Non-Tender, Bowel Sounds Present Musculoskeletal MS Exam: Joints Intact, Good Strength Integumentary Skin Exam: Clear, Warm, Dry, Intact Extremeties Extremities Exam: No Edema, Pedal Pulses Palpable Neurologic Neuro Exam: Alert, Awake, Oriented, Speech Clear, Moving All Extremities Psychiatric Psych Exam: Appropriate Responses Assessment/Plan Discussed Condition With: Patient Assessment Summary: Anemia of CKD, Hypertension, End Stage Renal Disease Problem List: (1) ESRD (end stage renal disease) on dialysis ICD Codes: N18.6 - End stage renal disease; Z99.2 - Dependence on renal dialysis Plan: HD support continues MWF Permcath in place for HD; will need AVF revision; hopefully will happen prior to discharge Minimal fluid removal with treatment. He still makes urine Monitor electrolytes Avoid excess IVF On Renvela for metabolic bone disorder, intermittently evaluate phosphorus level PTH is not elevated (2) Malnutrition ICD Codes: E46 - Malnutrition Status: Acute Plan: High protein diet, add supplements (3) Empyema lung ICD Codes: J86.9 - Pyothorax without fistula Plan: On meropenem and doxycycline Monitor the patient clinically He will need antibiotic therapy until 03/09. To stop today. Followup at [facility] this week? (4) Anemia ICD Codes: D64.9 - Anemia Status: Chronic Plan: On Epogen with HD, high dose Off Aranesp Transfused since admission Given Venofer IV Jim Zuluaga MD Mar 09, 2017 13:17
[2017-03-09 16:00] VITALS: BP 148/84; PULSE 91; RESP 20; TEMP 98.2; O2SAT 93
[2017-03-09] MEDS: GENTAMICIN SULFATE (DIALYSIS USE ONLY) 20 MG/2 ML VIAL OTHER PRN (16:17)
[2017-03-09] MEDS: HEPARIN SODIUM - IV 10,000 UNITS/10 ML VIAL PRN (16:17)
[2017-03-09] MEDS: EPOETIN ALFA 10,000 UNITS/ML VIAL IV PUSH PRN (16:20)
--- NOTE | 2017-03-09 18:45 | HHI.PR ---
Subjective Remarks Has drainage from chest tubes on Right. No Fever. Seems better this week. Will go to [facility] on the 14 th. Off o2.. No Pain. Objective Vital Signs Date Time Temp Pulse Resp B/P (MAP) Pulse Ox O2 Delivery O2 Flow Rate FiO2 03/09/17 16:00 98.2 91 20 148/84 (105) 93 03/09/17 12:00 98.3 85 20 143/89 (107) 94 03/09/17 08:00 98.1 79 18 141/78 (99) 96 03/09/17 08:00 Room Air 03/09/17 04:00 98.2 86 16 140/89 (106) 94 03/09/17 02:26 Room Air 03/09/17 00:00 98.5 85 16 147/92 (110) 93 03/08/17 20:00 98.3 91 16 140/85 (103) 96 I/O 03/08/17 03/08/17 03/08/17 03/09/17 03/09/17 03/09/17 07:00 15:00 23:00 07:00 15:00 23:00 Intake Total 340 ml 1440 ml 940 ml Output Total 500 ml Balance 340 ml 1440 ml 940 ml -500 ml Intake Oral 240 ml 1440 ml 840 ml IV Total 100 ml 100 ml Hemodialysis 500 ml # Voids 3 4 3 # Bowel Movements 0 1 Result Diagram: 03/06/1743903/06/17439 Objective Remarks IN GENERAL: This is a middle-aged thinly built white male who is pale and not dyspneic at rest. HEAD, EYES, EARS, NOSE, AND THROAT: Head normocephalic. Pupils reactive. Tongue is moist. Throat was clear. Nasal mucosa clear. NECK: Supple. No bruits or thyroid enlargement. CHEST: Decreased breath sounds over the right chest and Chest Tubes in place in Right chest. HEART: The heart sounds are regular S1-S2. No murmur. ABDOMEN: The abdomen is soft, protuberant without masses or organomegaly or tenderness. Bowel sounds are active. EXTREMITIES: no edema. Peripheral pulses are diminished. NEUROLOGIC: Reflexes are 1+ with no gross motor deficits. SKIN: No lesions noted.No leg edema. Assessment and Plan Assessment and Plan IMPRESSION 1. Right bronchopleural fistula. 2. Empyema right chest. 3. Persistent air leak with history of pneumothorax. 4. COPD, chronic bronchitis or bronchiectasis. 5. End-stage renal disease on dialysis. Plan : 1. Will use O2 PRN at 2 L 2. Nebs BID Duoneb. 3. Continue antibiotics per ID. 4. IS at bedside q2h. 5. Dressing change of right chest 6. Labs in am. 7.To [facility] on 03/19 ,For Revision of Bronchial valve Alison Wilson MD Mar 09, 2017 18:45
[2017-03-09 20:00] VITALS: BP 117/64; PULSE 95; RESP 21; TEMP 98.2; O2SAT 97
[2017-03-09] MEDS: PANTOPRAZOLE SOD 40 MG DELAYED RELEASE TAB PO SCH (21:08)
[2017-03-10] VITALS: BP 123/68; PULSE 98; RESP 20; TEMP 98.8; O2SAT 95
[2017-03-10 04:00] VITALS: BP 129/73; PULSE 85; RESP 18; TEMP 98.5; O2SAT 93
[2017-03-10] MEDS: diphenhydrAMINE HCL 25 MG CAP PO PRN ×2 (05:43→23:47)
[2017-03-10 08:00] VITALS: BP 151/92; PULSE 80; RESP 18; TEMP 98.1; O2SAT 94
[2017-03-10] MEDS: amLODIPine BESYLATE 5 MG TAB PO SCH (08:54)
[2017-03-10] MEDS: CHOLECALCIFEROL (VIT D3) 1000 UNIT TAB PO SCH (08:54)
[2017-03-10] MEDS: CARVEDILOL 12.5 MG TAB PO SCH ×2 (08:54→20:14)
[2017-03-10] MEDS: SEVELAMER CARBONATE 800 MG TAB PO SCH ×3 (08:54→17:31)
[2017-03-10] MEDS: FOLIC ACID 1 MG TAB PO SCH (08:54)
[2017-03-10] MEDS: MULTIVITAMIN TAB PO SCH (08:54)
[2017-03-10] MEDS: SODIUM CHLORIDE 0.9% FLUSH 10 ML FLUSH IV FLUSH SCH ×2 (08:54→20:15)
[2017-03-10 12:00] VITALS: BP 127/81; PULSE 83; RESP 20; TEMP 97.9; O2SAT 95
[2017-03-10] MEDS: ASCORBIC ACID 500 MG TAB PO SCH ×2 (14:13→17:31)
[2017-03-10] MEDS: FERROUS SULFATE 300 MG /5ML UDC PO SCH ×2 (14:13→17:31)
--- NOTE | 2017-03-10 14:54 | HHI.PR ---
Subjective Remarks up and ambulating good po no complains Objective Vitals Vital Signs Date Time Temp Pulse Resp B/P (MAP) Pulse Ox O2 Delivery O2 Flow Rate FiO2 03/10/17 12:00 97.9 83 20 127/81 (96) 95 03/10/17 08:56 Room Air 03/10/17 08:00 98.1 80 18 151/92 (111) 94 03/10/17 04:00 98.5 85 18 129/73 (91) 93 03/10/17 00:00 98.8 98 20 123/68 (86) 95 03/09/17 20:00 98.2 95 21 117/64 (81) 97 03/09/17 19:40 Room Air 03/09/17 16:00 98.2 91 20 148/84 (105) 93 I/O 03/09/17 03/09/17 03/09/17 03/10/17 03/10/17 03/10/17 07:00 15:00 23:00 07:00 15:00 23:00 Intake Total 940 ml 680 ml Output Total 500 ml Balance 940 ml -500 ml 680 ml Intake Oral 840 ml 680 ml IV Total 100 ml Hemodialysis 500 ml # Voids 3 3 Result Diagram: 03/06/17 0440 03/06/17 0440 Imaging Last Impressions Chest X-Ray 03/09/17 0000 Signed Impressions: Service Date/Time: Thursday, March 09, 2017 10:46 - CONCLUSION: 1. Left PICC distal tip is in appropriate position within the SVC. 2. Stable changes in the right lung with consolidation and cavitation in the upper lobe. No pneumothorax is present. Caio Unger MD Thyroid Ultrasound 02/25/17 0000 Signed Impressions: Service Date/Time: Saturday, February 25, 2017 13:26 - CONCLUSION: 1. Normal ultrasound examination of the thyroid gland. 2. Abnormal appearance of the left jugular vein with apparent flow adjacent to the jugular vein wall containing small amount of debris. Consider CTA/CTV examination for better characterization and to exclude possible AV fistula. Edenilson Villarreal MD Lung Scan-V Nuclear Medicine 02/22/17 0000 Signed Impressions: Service Date/Time: Wednesday, February 22, 2017 18:56 - CONCLUSION: Intermediate probability for pulmonary embolism. 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 Fonesca is a 56 year old male who has had a very long and complicated history of present illness. He has a known medical history of coronary artery disease status post CABG and chronic kidney disease who initially presented to the hospital on November 22, 2016 with sepsis, anemia, acute renal failure, and extensive right lung pneumonia with cavitation and underwent a right thoracotomy with VATS, lysis of adhesions, and decortication for pulmonary infiltrate in right lung and COPD on 12/30 but developed right chest tube related bronchopleural fistula. He was transferred to [facility] in [place] for further management of persistent leak/bronchopleural fistula. He was discharged on 01/22/2017. He returned following treatment at [facility] on 02/19. Bronchopleural fistula History of Right thoracotomy with VATS Persistent air leak with history of pneumothorax Empyema lung culture polymicrobial with MRSA, pseudomonas aeruginosa as (MDRO), viridans and Bacillus fragilis - status post multiple bronchoscopies with endobronchial valves and gluing performed at [facility] - S/P Meropenem and doxycycline per ID- last dose 03/09 - ID Pulmonology ff Left neck fullness. TSH unremarkable. Thyroid sonogram with normal examination of the thyroid gland but abnormal appearance of the left jugular vein with apparent flow adjacent to the jugular vein wall containing small amount of debris. Radiology recommends CTA/CTV to exclude possible AV fistula. Discussed with radiology, possible carotid jugular fistula. Discussed with vascular surgery, we'll continue to observe Hypoxia. Resolved. now sattign well on room air -Most likely secondary to worsening of the empyema. Chest x-ray showed right consolidation and patient also had increased purulent output in the chest tube. VQ scan suggests moderate probability but that is due to the consolidation. No suspicion for any PE. -CT surgery consulted stated at the moment no indication for any surgery. -COPD Exacerbation . Improved status post prednisone End-stage renal disease on hemodialysis - Financial Planning Consultant following. He is getting hemodialysis which needs to be set up outpatient.- CM assisting - Per geospatial applications developer patient will need a revision of the AV fistula - Avoid nephrotoxins - Monitor electrolytes - - - Anemia, iron deficiency vs CKD or combination -Continue with ferrous sulfate 300 mg liquid twice a day with vitamin C 500 mg twice a day administered at the same time. - continue Aranesp - Status post transfused 2 packs red blood cells on 02/22/2017 and responded appropriately. Malnutrition - Regular diet - Nepro one can 3 times a day between meals Hypertension. Improving continue Coreg and Norvasc and monitor Hemorrhoidal bleed. Improved also has diverticulosis status post colonoscopy in December 2016. EGD with gastritis and esophagitis on PPI. Denies heartburn and abdominal pain. Repeat CBC and coags unremarkable. Continue to monitor . Avoid constipation DVT prophylaxis - Patient ambulatory - Recommend SCDs teds while in bed Discharge Planning patient needs to report all asset - home he refused to pay for anything Follow-up with [facility] for removal of endobronchial valves, has appointment rescheduled for 03/19/17. Nadja Peres MD Mar 10, 2017 14:54
[2017-03-10 16:00] VITALS: BP 119/59; PULSE 89; RESP 20; TEMP 98.4; O2SAT 95
--- NOTE | 2017-03-10 18:35 | HHI.PR ---
Subjective Remarks Less drainage from chest tubes on Right. No Fever. Seems better this week. Will go to [facility] on the th. Off o2.. Was Dialyzed. Objective Vital Signs Date Time Temp Pulse Resp B/P (MAP) Pulse Ox O2 Delivery O2 Flow Rate FiO2 03/10/17 16:00 98.4 89 20 119/59 (79) 95 03/10/17 12:00 97.9 83 20 127/81 (96) 95 03/10/17 08:56 Room Air 03/10/17 08:00 98.1 80 18 151/92 (111) 94 03/10/17 04:00 98.5 85 18 129/73 (91) 93 03/10/17 00:00 98.8 98 20 123/68 (86) 95 03/09/17 20:00 98.2 95 21 117/64 (81) 97 03/09/17 19:40 Room Air I/O 03/09/17 03/09/17 03/09/17 03/10/17 03/10/17 03/10/17 07:00 15:00 23:00 07:00 15:00 23:00 Intake Total 940 ml 680 ml 720 ml Output Total 500 ml Balance 940 ml -500 ml 680 ml 720 ml Intake Oral 840 ml 680 ml 720 ml IV Total 100 ml Hemodialysis 500 ml # Voids 3 3 6 # Bowel Movements 1 Result Diagram: 03/06/170 03/06/17 0440 Objective Remarks IN GENERAL: This is a middle-aged thinly built white male who is pale and alert. HEAD, EYES, EARS, NOSE, AND THROAT: Head normocephalic. Pupils reactive. Tongue is moist. Throat was clear. Nasal mucosa clear. NECK: Supple. No bruits or thyroid enlargement. CHEST: Decreased breath sounds over the right chest and Chest Tubes in place in Right chest. HEART: The heart sounds are regular S1-S2. No murmur. ABDOMEN: The abdomen is soft, protuberant without masses or organomegaly or tenderness. Bowel sounds are active. EXTREMITIES: no edema. Peripheral pulses are diminished. NEUROLOGIC: Reflexes are 1+ with no gross motor deficits. SKIN: No lesions noted.No leg edema. Assessment and Plan Assessment and Plan IMPRESSION 1. Right bronchopleural fistula. 2. Empyema right chest. 3. Persistent air leak with history of pneumothorax. 4. COPD, chronic bronchitis or bronchiectasis. 5. End-stage renal disease on dialysis. Plan : 1. Will use O2 PRN at 2 L 2. Nebs BID Duoneb. 3. D/C antibiotics per ID. 4. IS at bedside q2h. 5. Dressing change of right chest 6. Rehab placement 7.To [facility] on 03/19 ,For Revision of Bronchial valve Alison Wilson MD Mar 10, 2017 18:35
[2017-03-10 20:00] VITALS: BP 128/70; PULSE 86; RESP 20; TEMP 98.5; O2SAT 96
[2017-03-10] MEDS: PANTOPRAZOLE SOD 40 MG DELAYED RELEASE TAB PO SCH (20:14)
[2017-03-11] VITALS: BP 136/82; PULSE 82; RESP 19; TEMP 97.4; O2SAT 95
[2017-03-11 04:00] VITALS: BP 128/79; PULSE 88; RESP 18; TEMP 97.7; O2SAT 98
[2017-03-11] MEDS: diphenhydrAMINE HCL 25 MG CAP PO PRN (06:23)
[2017-03-11 08:00] VITALS: BP 148/85; PULSE 84; RESP 20; TEMP 97.7; O2SAT 94
--- NOTE | 2017-03-11 08:07 | HHI.PR ---
Subjective Remarks no shortness of breath no chest pains afebrile Objective Vitals Vital Signs Date Time Temp Pulse Resp B/P (MAP) Pulse Ox O2 Delivery O2 Flow Rate FiO2 03/11/17 04:00 97.7 88 18 128/79 (95) 98 03/11/17 04:00 Room Air 03/11/17 00:00 Room Air 03/11/17 00:00 97.4 82 19 136/82 (100) 95 03/10/17 20:15 Room Air 03/10/17 20:00 98.5 86 20 128/70 (89) 96 03/10/17 16:00 98.4 89 20 119/59 (79) 95 03/10/17 12:00 97.9 83 20 127/81 (96) 95 03/10/17 08:56 Room Air I/O 03/10/17 03/10/17 03/10/17 03/11/17 03/11/17 03/11/17 07:00 15:00 23:00 07:00 15:00 23:00 Intake Total 680 ml 720 ml 600 ml Balance 680 ml 720 ml 600 ml Intake Oral 680 ml 720 ml 600 ml # Voids 3 6 4 # Bowel Movements 1 Imaging Last Impressions Chest X-Ray 03/09/17 0000 Signed Impressions: Service Date/Time: Thursday, March 09, 2017 10:46 - CONCLUSION: 1. Left PICC distal tip is in appropriate position within the SVC. 2. Stable changes in the right lung with consolidation and cavitation in the upper lobe. No pneumothorax is present. Caio Unger MD Thyroid Ultrasound 02/25/17 0000 Signed Impressions: Service Date/Time: Saturday, February 25, 2017 13:26 - CONCLUSION: 1. Normal ultrasound examination of the thyroid gland. 2. Abnormal appearance of the left jugular vein with apparent flow adjacent to the jugular vein wall containing small amount of debris. Consider CTA/CTV examination for better characterization and to exclude possible AV fistula. Edenilson Villarreal MD Lung Scan-V Nuclear Medicine 02/22/17 0000 Signed Impressions: Service Date/Time: Wednesday, February 22, 2017 18:56 - CONCLUSION: Intermediate probability for pulmonary embolism. 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 Fonseca is a 56 year old male who has had a very long and complicated history of present illness. He has a known medical history of coronary artery disease status post CABG and chronic kidney disease who initially presented to the hospital on November 22, 2016 with sepsis, anemia, acute renal failure, and extensive right lung pneumonia with cavitation and underwent a right thoracotomy with VATS, lysis of adhesions, and decortication for pulmonary infiltrate in right lung and COPD on 12/30 but developed right chest tube related bronchopleural fistula. He was transferred to [facility] in [place] for further management of persistent leak/bronchopleural fistula. He was discharged on 01/22/2017. He returned following treatment at [facility] on 02/19. Bronchopleural fistula History of Right thoracotomy with VATS Persistent air leak with history of pneumothorax Empyema lung culture polymicrobial with MRSA, pseudomonas aeruginosa as (MDRO), viridans and Bacillus fragilis - status post multiple bronchoscopies with endobronchial valves and gluing performed at [facility] - S/P Meropenem and doxycycline per ID- last dose 03/09 - ID Pulmonology ff Left neck fullness. TSH unremarkable. Thyroid sonogram with normal examination of the thyroid gland but abnormal appearance of the left jugular vein with apparent flow adjacent to the jugular vein wall containing small amount of debris. Discussed with radiology, possible carotid jugular fistula. Discussed with vascular surgery, we'll continue to observe Hypoxia. Resolved. now sattign well on room air -Most likely secondary to worsening of the empyema. Chest x-ray showed right consolidation and patient also had increased purulent output in the chest tube. VQ scan suggests moderate probability but that is due to the consolidation. No suspicion for any PE. -CT surgery consulted stated at the moment no indication for any surgery. -COPD Exacerbation . Improved status post prednisone End-stage renal disease on hemodialysis - Electrical Subcontractor following. He is getting hemodialysis which needs to be set up outpatient.- CM assisting - Per dip guider stoves patient will need a revision of the AV fistula - Avoid nephrotoxins - Monitor electrolytes - M- W- F Anemia, iron deficiency vs CKD or combination -Continue with ferrous sulfate 300 mg liquid twice a day with vitamin C 500 mg twice a day administered at the same time. - continue Aranesp - Status post transfused 2 packs red blood cells on 02/22/2017 and responded appropriately. Malnutrition - Regular diet- po improved per patient - Nepro one can 3 times a day between meals Hypertension. Improving continue Coreg and Norvasc and monitor Hemorrhoidal bleed. Improved also has diverticulosis status post colonoscopy in December 2016. EGD with gastritis and esophagitis on PPI. Denies heartburn and abdominal pain. Repeat CBC and coags unremarkable. Continue to monitor . Avoid constipation DVT prophylaxis - Patient ambulatory - Recommend SCDs teds while in bed Discharge Planning per CM- 03/10 patient needs to report all asset - home he refused to pay for anything Follow-up with [facility] for removal of endobronchial valves, has appointment rescheduled for 03/19/17. Nadja Peres MD Mar 11, 2017 08:07
--- NOTE | 2017-03-11 08:52 | HHI.NPPN ---
Subjective General Problems: Anemia Renal Failure: Chronic, End Stage Renal Disease Interval History patient was seen and examined. To have HD later today. Apparently he will be going back to [facility] on the Review of Systems General Constitutional: Fatigue Respiratory Lungs: SOB Cardiovascular Cardiac Remarks minor pain right lateral ribs secondary to tubes Objective Data Data Vital Signs Date Time Temp Pulse Resp B/P (MAP) Pulse Ox O2 Delivery O2 Flow Rate FiO2 03/11/17 04:00 97.7 88 18 128/79 (95) 98 03/11/17 04:00 Room Air 03/11/17 00:00 Room Air 03/11/17 00:00 97.4 82 19 136/82 (100) 95 03/10/17 20:15 Room Air 03/10/17 20:00 98.5 86 20 128/70 (89) 96 03/10/17 16:00 98.4 89 20 119/59 (79) 95 03/10/17 12:00 97.9 83 20 127/81 (96) 95 03/10/17 08:56 Room Air Tubes & Lines: Perma-Cath Physical Exam General Appearance: Well Developed, No Acute Distress, Comfortable, Pale, Malnourished Eyes Eye Exam: Pupils Equal Throat Throat Exam: Oral Mucosa [place] & Moist Neck Neck Exam: Neck Supple Pulmonary Resp Exam: Breath Sounds Equal, Crackles, Decreased Bases Cardiology CV Exam: Regular, Normal Sinus Rhythm Gastrointestinal/Abdomen GI Exam: Soft, Non-Tender, Bowel Sounds Present Musculoskeletal MS Exam: Joints Intact, Good Strength Integumentary Skin Exam: Clear, Warm, Dry, Intact Extremeties Extremities Exam: No Edema, Pedal Pulses Palpable Neurologic Neuro Exam: Alert, Awake, Oriented, Speech Clear, Moving All Extremities Psychiatric Psych Exam: Appropriate Responses Assessment/Plan Discussed Condition With: Patient Assessment Summary: Anemia of CKD, Hypertension, End Stage Renal Disease Problem List: (1) ESRD (end stage renal disease) on dialysis ICD Codes: N18.6 - End stage renal disease; Z99.2 - Dependence on renal dialysis Plan: HD support continues MWF Permcath in place for HD; will need AVF revision; hopefully will happen prior to discharge He has good urine output. Monitor electrolytes On Renvela for metabolic bone disorder, intermittently evaluate phosphorus level PTH is not elevated (2) Malnutrition ICD Codes: E46 - Malnutrition Status: Acute Plan: High protein diet, add supplements (3) Empyema lung ICD Codes: J86.9 - Pyothorax without fistula Plan: Off antibiotics. Monitor the patient clinically Followup at [facility] on the . (4) Anemia ICD Codes: D64.9 - Anemia Status: Chronic Plan: On Epogen with HD, high dose Off Aranesp Transfused since admission Given Venofer IV Jim Zuluaga MD Mar 11, 2017 08:52
[2017-03-11] MEDS: CHOLECALCIFEROL (VIT D3) 1000 UNIT TAB PO SCH (09:07)
[2017-03-11] MEDS: FOLIC ACID 1 MG TAB PO SCH (09:07)
[2017-03-11] MEDS: MULTIVITAMIN TAB PO SCH (09:07)
[2017-03-11] MEDS: amLODIPine BESYLATE 5 MG TAB PO SCH (09:07)
[2017-03-11] MEDS: SEVELAMER CARBONATE 800 MG TAB PO SCH ×3 (09:07→17:59)
[2017-03-11] MEDS: CARVEDILOL 12.5 MG TAB PO SCH ×2 (09:08→21:56)
[2017-03-11] MEDS: SODIUM CHLORIDE 0.9% FLUSH 10 ML FLUSH IV FLUSH SCH ×2 (09:10→21:56)
[2017-03-11 12:00] VITALS: BP 135/81; PULSE 84; RESP 20; TEMP 98.3; O2SAT 94
[2017-03-11] MEDS: FERROUS SULFATE 300 MG /5ML UDC PO SCH ×2 (12:00→17:00)
[2017-03-11] MEDS: ASCORBIC ACID 500 MG TAB PO SCH ×2 (12:00→17:00)
[2017-03-11 16:00] VITALS: BP 146/85; PULSE 91; RESP 20; TEMP 99.2; O2SAT 94
[2017-03-11] MEDS: EPOETIN ALFA 10,000 UNITS/ML VIAL IV PUSH PRN (16:17)
[2017-03-11] MEDS: HEPARIN SODIUM - IV 10,000 UNITS/10 ML VIAL PRN (16:18)
[2017-03-11] MEDS: GENTAMICIN SULFATE (DIALYSIS USE ONLY) 20 MG/2 ML VIAL OTHER PRN (16:18)
--- NOTE | 2017-03-11 18:58 | HHI.PR ---
Subjective Remarks Green drainage from chest tubes on Right. Has some Fever. Will go to [facility] on the . Off o2.. Was Dialyzed. Objective Vital Signs Date Time Temp Pulse Resp B/P (MAP) Pulse Ox O2 Delivery O2 Flow Rate FiO2 03/11/17 16:00 99.2 91 20 146/85 (105) 94 03/11/17 12:00 98.3 84 20 135/81 (99) 94 03/11/17 08:00 97.7 84 20 148/85 (106) 94 03/11/17 04:00 97.7 88 18 128/79 (95) 98 03/11/17 04:00 Room Air 03/11/17 00:00 Room Air 03/11/17 00:00 97.4 82 19 136/82 (100) 95 03/10/17 20:15 Room Air 03/10/17 20:00 98.5 86 20 128/70 (89) 96 I/O 03/10/17 03/10/17 03/10/17 03/11/17 03/11/17 03/11/17 07:00 15:00 23:00 07:00 15:00 23:00 Intake Total 680 ml 720 ml 600 ml 840 ml Output Total 600 ml Balance 680 ml 720 ml 600 ml 240 ml Intake Oral 680 ml 720 ml 600 ml 840 ml Hemodialysis 600 ml # Voids 3 6 4 8 # Bowel Movements 1 2 Objective Remarks IN GENERAL: This is a middle-aged thinly built white male who is pale and alert. HEAD, EYES, EARS, NOSE, AND THROAT: Head normocephalic. Pupils reactive. Tongue is moist. Throat was clear. Nasal mucosa clear. NECK: Supple. No bruits or thyroid enlargement. CHEST: Decreased breath sounds over the right chest and Chest Tubes in place in Right chest. HEART: The heart sounds are regular S1-S2. No murmur. ABDOMEN: The abdomen is soft, protuberant without masses or organomegaly or tenderness. Bowel sounds are active. EXTREMITIES: no edema. Peripheral pulses are diminished. NEUROLOGIC: Reflexes are 1+ with no gross motor deficits. SKIN: No lesions noted.No leg edema. Assessment and Plan Assessment and Plan IMPRESSION 1. Right bronchopleural fistula. 2. Empyema right chest. 3. Persistent air leak with history of pneumothorax. 4. COPD, chronic bronchitis or bronchiectasis. 5. End-stage renal disease on dialysis. Plan : 1. Will use O2 PRN at 2 L 2. Nebs BID Duoneb. 3. Stop antibiotics per ID. 4. IS at bedside q2h. 5. Dressing change of right chest daily. 6. Reculture Blood and chest drainage 7. CXR in Alison Lizama MD Mar 11, 2017 18:58
[2017-03-11 20:00] VITALS: BP 126/78; PULSE 96; RESP 24; TEMP 98.3; O2SAT 94
[2017-03-11] MEDS: PANTOPRAZOLE SOD 40 MG DELAYED RELEASE TAB PO SCH (21:55)
[2017-03-12] VITALS: BP 117/75; PULSE 89; RESP 22; TEMP 97.9; O2SAT 96
[2017-03-12 04:00] VITALS: BP 144/92; PULSE 82; RESP 22; TEMP 98.5; O2SAT 94
[2017-03-12] MEDS: diphenhydrAMINE HCL 25 MG CAP PO PRN (06:09)
[2017-03-12 07:22] LABS: AUTOMATED NEUTROPHIL # 4.9 TH/MM3 (1.8-7.7); BASOPHIL # 0.1 TH/MM3 (0-0.2); EOSINOPHIL # 0.4 TH/MM3 (0-0.4); EOSINOPHIL % 5.2 % (0.0-4.0); HEMATOCRIT 30.2 % (39.0-51.0); HEMO FLAGS DIFF FINAL; LYMPH % 22.3 % (9.0-44.0); LYMPHOCYTE # 1.7 TH/MM3 (1.0-4.8); MEAN CELL VOLUME 91.8 FL (80.0-100.0); MEAN CORPUSCULAR HEMOGLOBIN 31.2 PG (27.0-34.0); MEAN CORPUSCULAR HGB CONC 33.9 % (32.0-36.0); MONO % 7.5 % (0.0-8.0); PLATELET COUNT 136 TH/MM3 (150-450); RED BLOOD COUNT 3.29 MIL/MM3 (4.50-5.90); RED CELL DISTRIBUTION WIDTH 18.6 % (11.6-17.2); WHITE BLOOD COUNT 7.7 TH/MM3 (4.0-11.0)
[2017-03-12 07:25] LABS: BICARBONATE 28.9 MEQ/L (21.0-32.0); POTASSIUM 3.2 MEQ/L (3.5-5.1)
[2017-03-12 08:00] VITALS: BP_SYST 123; BP_SYST 141; BP_DIAS 76; BP_DIAS 85; PULSE 77; PULSE 86; RESP 18; RESP 20; TEMP 98.3; TEMP 98.4; O2SAT 94
[2017-03-12] MEDS: amLODIPine BESYLATE 5 MG TAB PO SCH (08:41)
[2017-03-12] MEDS: FOLIC ACID 1 MG TAB PO SCH (08:41)
[2017-03-12] MEDS: CHOLECALCIFEROL (VIT D3) 1000 UNIT TAB PO SCH (08:41)
[2017-03-12] MEDS: CARVEDILOL 12.5 MG TAB PO SCH ×2 (08:41→21:23)
[2017-03-12] MEDS: MULTIVITAMIN TAB PO SCH (08:41)
[2017-03-12] MEDS: SEVELAMER CARBONATE 800 MG TAB PO SCH ×3 (08:41→17:00)
[2017-03-12] MEDS: SODIUM CHLORIDE 0.9% FLUSH 10 ML FLUSH IV FLUSH SCH ×2 (08:43→21:23)
--- NOTE | 2017-03-12 08:56 | HHI.PR ---
Subjective Remarks no pain complains' good po no diarrhea Objective Vitals Vital Signs Date Time Temp Pulse Resp B/P (MAP) Pulse Ox O2 Delivery O2 Flow Rate FiO2 03/12/17 04:00 98.5 82 22 144/92 (109) 94 03/12/17 00:00 97.9 89 22 117/75 (89) 96 03/12/17 00:00 Room Air 03/11/17 20:00 Room Air 03/11/17 20:00 98.3 96 24 126/78 (94) 94 03/11/17 16:00 99.2 91 20 146/85 (105) 94 03/11/17 12:00 98.3 84 20 135/81 (99) 94 I/O 03/11/17 03/11/17 03/11/17 03/12/17 03/12/17 03/12/17 07:00 15:00 23:00 07:00 15:00 23:00 Intake Total 600 ml 840 ml 720 ml Output Total 600 ml Balance 600 ml 240 ml 720 ml Intake Oral 600 ml 840 ml 720 ml Hemodialysis 600 ml # Voids 4 8 # Bowel Movements 2 Result Diagram: 03/12/17 0608 03/12/17 0608 Imaging Last Impressions Chest X-Ray 03/09/17 0000 Signed Impressions: Service Date/Time: Thursday, March 09, 2017 10:46 - CONCLUSION: 1. Left PICC distal tip is in appropriate position within the SVC. 2. Stable changes in the right lung with consolidation and cavitation in the upper lobe. No pneumothorax is present. Caio Unger MD Thyroid Ultrasound 02/25/17 0000 Signed Impressions: Service Date/Time: Saturday, February 25, 2017 13:26 - CONCLUSION: 1. Normal ultrasound examination of the thyroid gland. 2. Abnormal appearance of the left jugular vein with apparent flow adjacent to the jugular vein wall containing small amount of debris. Consider CTA/CTV examination for better characterization and to exclude possible AV fistula. Edenilson Villarreal MD Lung Scan- Nuclear Medicine 02/22/17 0000 Signed Impressions: Service Date/Time: Wednesday, February 22, 2017 18:56 - CONCLUSION: Intermediate probability for pulmonary embolism. 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 Fonseca is a 56 year old male who has had a very long and complicated history of present illness. He has a known medical history of coronary artery disease status post CABG and chronic kidney disease who initially presented to the hospital on November 22, 2016 with sepsis, anemia, acute renal failure, and extensive right lung pneumonia with cavitation and underwent a right thoracotomy with VATS, lysis of adhesions, and decortication for pulmonary infiltrate in right lung and COPD on 12/30 but developed right chest tube related bronchopleural fistula. He was transferred to [facility] in [place] for further management of persistent leak/bronchopleural fistula. He was discharged on 01/22/2017. He returned following treatment at [facility] on 02/19. Bronchopleural fistula History of Right thoracotomy with VATS Persistent air leak with history of pneumothorax Empyema lung culture polymicrobial with MRSA, pseudomonas aeruginosa as (MDRO), viridans and Bacillus fragilis - status post multiple bronchoscopies with endobronchial valves and gluing performed at [facility] - S/P Meropenem and doxycycline per ID- last dose 03/09 - Pulmonology ff- Dr. Jj ff Left neck fullness. asymptomatic TSH unremarkable. Thyroid sonogram with normal examination of the thyroid gland but abnormal appearance of the left jugular vein with apparent flow adjacent to the jugular vein wall containing small amount of debris. Discussed with radiology, possible carotid jugular fistula. Discussed with vascular surgery, we'll continue to observe Hypoxia. Resolved. good sats at room air -Chest x-ray showed right consolidation and patient also had increased purulent output in the chest tube. VQ scan suggests moderate probability but that is due to the consolidation. No suspicion for any PE. -CT surgery ff. no indication for any surgery. -COPD Exacerbation . Improved status post prednisone End-stage renal disease on hemodialysis Hypokalemia- 03/12 - give 30 meq po KCL x 1 03/12. - recheck in am - Wagon Washer following. He is getting hemodialysis which needs to be set up outpatient.- CM assisting - Per rn unit manager patient will need a revision of the AV fistula - Avoid nephrotoxins - Monitor electrolytes - - - Anemia, iron deficiency vs CKD or combination -Continue with ferrous sulfate 300 mg liquid twice a day with vitamin C 500 mg twice a day administered at the same time. - continue Aranesp - Status post transfused 2 packs red blood cells on 02/22/2017 and responded appropriately. Malnutrition - Regular diet- po improved per patient - Nepro one can 3 times a day between meals Hypertension. - continue Coreg and Norvasc and monitor Hemorrhoidal bleed. Improved also has diverticulosis status post colonoscopy in December 2016. EGD with gastritis and esophagitis on PPI. Denies heartburn and abdominal pain. Repeat CBC and coags unremarkable. Continue to monitor . Avoid constipation DVT prophylaxis - Patient ambulatory - Recommend SCDs teds while in bed Discharge Planning per CM- 03/11- [place] patient needs to report all asset - home he refused to pay for anything- administration involved Follow-up with [facility] for removal of endobronchial valves, has appointment rescheduled for 03/19/17. Nadja Peres MD Mar 12, 2017 08:56
[2017-03-12] MEDS ORDERED: POTASSIUM CHLORIDE 20 MEQ CONTROLLED RELEASE TAB PO ONE (09:00)
[2017-03-12 12:00] VITALS: BP 123/76; PULSE 86; RESP 20; TEMP 98.4; O2SAT 94
[2017-03-12] MEDS: ASCORBIC ACID 500 MG TAB PO SCH ×2 (12:10→17:34)
[2017-03-12] MEDS: FERROUS SULFATE 300 MG /5ML UDC PO SCH ×2 (12:10→17:38)
[2017-03-12 16:00] VITALS: BP 136/78; PULSE 94; RESP 20; TEMP 98.4; O2SAT 95
--- NOTE | 2017-03-12 18:03 | HHI.PR ---
Subjective Remarks Green drainage from chest tubes on Right. No Fever. Will go to [facility] on the . Rpt cultures pending from Sputum and Chest drain Off o2.. Was Dialyzed. Objective Vital Signs Date Time Temp Pulse Resp B/P (MAP) Pulse Ox O2 Delivery O2 Flow Rate FiO2 03/12/17 16:00 Room Air 03/12/17 16:00 98.4 94 20 136/78 (97) 95 03/12/17 12:00 98.4 86 20 123/76 (92) 94 03/12/17 12:00 Room Air 03/12/17 08:15 Room Air 03/12/17 08:00 98.3 77 18 141/85 (103) 94 03/12/17 04:00 98.5 82 22 144/92 (109) 94 03/12/17 00:00 97.9 89 22 117/75 (89) 96 03/12/17 00:00 Room Air 03/11/17 20:00 Room Air 03/11/17 20:00 98.3 96 24 126/78 (94) 94 I/O 03/11/17 03/11/17 03/11/17 03/12/17 03/12/17 03/12/17 07:00 15:00 23:00 07:00 15:00 23:00 Intake Total 600 ml 840 ml 720 ml 1680 ml Output Total 600 ml Balance 600 ml 240 ml 720 ml 1680 ml Intake Oral 600 ml 840 ml 720 ml 1680 ml Hemodialysis 600 ml # Voids 4 8 6 # Bowel Movements 2 0 Result Diagram: 03/12/17 0608 03/12/17 0608 Objective Remarks IN GENERAL: This is a middle-aged thinly built white male who is pale and alert. HEAD, EYES, EARS, NOSE, AND THROAT: Head normocephalic. Pupils reactive. Tongue is moist. Throat was clear. Nasal mucosa clear. NECK: Supple. No bruits or thyroid enlargement. CHEST: Decreased breath sounds over the right chest and Chest Tubes in place in Right chest. HEART: The heart sounds are regular S1-S2. No murmur. ABDOMEN: The abdomen is soft, protuberant without masses or organomegaly or tenderness. Bowel sounds are active. EXTREMITIES: no edema. Peripheral pulses are diminished. NEUROLOGIC: Reflexes are 1+ with no gross motor deficits. SKIN: No lesions noted.No leg edema. Assessment and Plan Assessment and Plan IMPRESSION 1. Right bronchopleural fistula. 2. Empyema right chest. 3. Persistent air leak with history of pneumothorax. 4. COPD, chronic bronchitis or bronchiectasis. 5. End-stage renal disease on dialysis. Plan : 1. Will use O2 PRN at 2 L 2. Nebs BID Duoneb. 3. Stop antibiotics per ID. 4. IS at bedside q2h. 5. Dressing change of right chest daily. 6. Reculture Blood and chest drainage 7. Sputum culture Alison Wilson MD Mar 12, 2017 18:03
[2017-03-12 20:00] VITALS: BP_SYST 144; BP_SYST 147; BP_DIAS 67; BP_DIAS 91; PULSE 84; PULSE 88; RESP 22; TEMP 98.7; TEMP 99.6; O2SAT 95; O2SAT 97
[2017-03-12] MEDS: PANTOPRAZOLE SOD 40 MG DELAYED RELEASE TAB PO SCH (21:23)
[2017-03-13] VITALS: BP 137/80; PULSE 92; RESP 24; TEMP 98.2; O2SAT 95
[2017-03-13 04:00] VITALS: BP 131/83; PULSE 88; RESP 22; TEMP 97.7; O2SAT 94
[2017-03-13 08:00] VITALS: BP 140/78; PULSE 84; RESP 18; TEMP 98.9; O2SAT 93
[2017-03-13] MEDS ORDERED: ALTEPLASE RECOMBINANT 2 MG VIAL INTRACATH ONE ×2 (08:15→17:00)
[2017-03-13] MEDS: CARVEDILOL 12.5 MG TAB PO SCH ×2 (09:02→22:41)
[2017-03-13] MEDS: CHOLECALCIFEROL (VIT D3) 1000 UNIT TAB PO SCH (09:02)
[2017-03-13] MEDS: FOLIC ACID 1 MG TAB PO SCH (09:02)
[2017-03-13] MEDS: amLODIPine BESYLATE 5 MG TAB PO SCH (09:02)
[2017-03-13] MEDS: SEVELAMER CARBONATE 800 MG TAB PO SCH ×3 (09:02→18:26)
[2017-03-13] MEDS: SODIUM CHLORIDE 0.9% FLUSH 10 ML FLUSH IV FLUSH SCH ×2 (09:02→21:00)
[2017-03-13] MEDS: MULTIVITAMIN TAB PO SCH (09:02)
[2017-03-13] MEDS: ASCORBIC ACID 500 MG TAB PO SCH ×2 (11:53→18:26)
[2017-03-13] MEDS: FERROUS SULFATE 300 MG /5ML UDC PO SCH ×2 (11:53→18:26)
[2017-03-13 12:00] VITALS: BP 99/53; PULSE 73; RESP 18; TEMP 98.1; O2SAT 95
--- NOTE | 2017-03-13 12:06 | HHI.NPPN ---
Subjective General Problems: Anemia Renal Failure: Chronic, End Stage Renal Disease Review of Systems General Constitutional: Fatigue Respiratory Lungs: SOB Cardiovascular Cardiac Remarks minor pain right lateral ribs secondary to tubes Objective Data Data Vital Signs Date Time Temp Pulse Resp B/P (MAP) Pulse Ox O2 Delivery O2 Flow Rate FiO2 03/13/17 08:00 98.9 84 18 140/78 (98) 93 03/13/17 04:00 97.7 88 22 131/83 (99) 94 03/13/17 04:00 Room Air 03/13/17 00:00 Room Air 03/13/17 00:00 98.2 92 24 137/80 (99) 95 03/12/17 20:00 Room Air 03/12/17 20:00 98.7 88 22 144/91 (108) 97 03/12/17 16:00 Room Air 03/12/17 16:00 98.4 94 20 136/78 (97) 95 -: 03/12/17 0608 03/12/17 0608 Tubes & Lines: Perma-Cath Physical Exam General Appearance: Well Developed, No Acute Distress, Comfortable, Pale, Malnourished Eyes Eye Exam: Pupils Equal Throat Throat Exam: Oral Mucosa [place] & Moist Neck Neck Exam: Neck Supple Pulmonary Resp Exam: Breath Sounds Equal, Crackles, Decreased Bases Cardiology CV Exam: Regular, Normal Sinus Rhythm Gastrointestinal/Abdomen GI Exam: Soft, Non-Tender, Bowel Sounds Present Musculoskeletal MS Exam: Joints Intact, Good Strength Integumentary Skin Exam: Clear, Warm, Dry, Intact Extremeties Extremities Exam: No Edema, Pedal Pulses Palpable Neurologic Neuro Exam: Alert, Awake, Oriented, Speech Clear, Moving All Extremities Psychiatric Psych Exam: Appropriate Responses Assessment/Plan Discussed Condition With: Patient Assessment Summary: Anemia of CKD, Hypertension, End Stage Renal Disease Problem List: (1) ESRD (end stage renal disease) on dialysis ICD Codes: N18.6 - End stage renal disease; Z99.2 - Dependence on renal dialysis Plan: HD support continues MWF PermCath in place for HD; will need AVF revision; hopefully will happen prior to discharge He has good urine output. Monitor electrolytes HD this afternoon 1610 seen at dialysis QB low Activase ordered UF 1-2 l as tolerates check P/C flows tomorrow (2) Malnutrition ICD Codes: E46 - Malnutrition Status: Acute Plan: High protein diet, add supplements (3) Empyema lung ICD Codes: J86.9 - Pyothorax without fistula Plan: Off antibiotics. Monitor the patient clinically Followup at [facility] on the . (4) Anemia ICD Codes: D64.9 - Anemia Status: Chronic Plan: On Epogen with HD, high dose Off Aranesp Transfused since admission Given Venofer IV Cecilio Driver MD Mar 13, 2017 12:06
--- NOTE | 2017-03-13 13:20 | HHI.PR ---
Subjective Remarks no complains Objective Vitals Vital Signs Date Time Temp Pulse Resp B/P (MAP) Pulse Ox O2 Delivery O2 Flow Rate FiO2 03/13/17 12:00 98.1 73 18 99/53 (68) 95 03/13/17 08:00 98.9 84 18 140/78 (98) 93 03/13/17 04:00 97.7 88 22 131/83 (99) 94 03/13/17 04:00 Room Air 03/13/17 00:00 Room Air 03/13/17 00:00 98.2 92 24 137/80 (99) 95 03/12/17 20:00 Room Air 03/12/17 20:00 98.7 88 22 144/91 (108) 97 03/12/17 16:00 Room Air 03/12/17 16:00 98.4 94 20 136/78 (97) 95 I/O 03/12/17 03/12/17 03/12/17 03/13/17 03/13/17 03/13/17 07:00 15:00 23:00 07:00 15:00 23:00 Intake Total 720 ml 1680 ml 1680 ml Balance 720 ml 1680 ml 1680 ml Intake Oral 720 ml 1680 ml 1680 ml # Voids 6 2 # Bowel Movements 0 1 Result Diagram: 03/12/17 0608 03/12/17 0608 Imaging Last Impressions Chest X-Ray 03/09/17 0000 Signed Impressions: Service Date/Time: Thursday, March 09, 2017 10:46 - CONCLUSION: 1. Left PICC distal tip is in appropriate position within the SVC. 2. Stable changes in the right lung with consolidation and cavitation in the upper lobe. No pneumothorax is present. Caio Unger MD Thyroid Ultrasound 02/25/17 0000 Signed Impressions: Service Date/Time: Saturday, February 25, 2017 13:26 - CONCLUSION: 1. Normal ultrasound examination of the thyroid gland. 2. Abnormal appearance of the left jugular vein with apparent flow adjacent to the jugular vein wall containing small amount of debris. Consider CTA/CTV examination for better characterization and to exclude possible AV fistula. Edenilson Villarreal MD Lung Scan- Nuclear Medicine 02/22/17 0000 Signed Impressions: Service Date/Time: Wednesday, February 22, 2017 18:56 - CONCLUSION: Intermediate probability for pulmonary embolism. 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 Fonseca is a 56 year old male who has had a very long and complicated history of present illness. He has a known medical history of coronary artery disease status post CABG and chronic kidney disease who initially presented to the hospital on November 22, 2016 with sepsis, anemia, acute renal failure, and extensive right lung pneumonia with cavitation and underwent a right thoracotomy with VATS, lysis of adhesions, and decortication for pulmonary infiltrate in right lung and COPD on 12/30 but developed right chest tube related bronchopleural fistula. He was transferred to [facility] in [place] for further management of persistent leak/bronchopleural fistula. He was discharged on 01/22/2017. He returned following treatment at [facility] on 02/19. Bronchopleural fistula History of Right thoracotomy with VATS Persistent air leak with history of pneumothorax Empyema lung culture polymicrobial with MRSA, pseudomonas aeruginosa as (MDRO), viridans and Bacillus fragilis - status post multiple bronchoscopies with endobronchial valves and gluing performed at [facility] - S/P Meropenem and doxycycline per ID- last dose 03/09 - Pulmonology ff- Dr. Parviz stewart Left neck fullness. asymptomatic TSH unremarkable. Thyroid sonogram with normal examination of the thyroid gland but abnormal appearance of the left jugular vein with apparent flow adjacent to the jugular vein wall containing small amount of debris. Discussed with radiology, possible carotid jugular fistula. Discussed with vascular surgery, we'll continue to observe Hypoxia. Resolved. good sats at room air -Chest x-ray showed right consolidation and patient also had increased purulent output in the chest tube. VQ scan suggests moderate probability but that is due to the consolidation. No suspicion for any PE. -CT surgery ff. no indication for any surgery. -COPD Exacerbation . Improved status post prednisone End-stage renal disease on hemodialysis Hypokalemia- 03/12 - give 30 meq po KCL x 1 03/12. - recheck in am - [employer] Worker following. He is getting hemodialysis which needs to be set up outpatient.- CM assisting - Per mobility engineer patient will need a revision of the AV fistula - Avoid nephrotoxins - Monitor electrolytes - - - - fro HD this pm - BMP in am Anemia, iron deficiency vs CKD or combination -Continue with ferrous sulfate 300 mg liquid twice a day with vitamin C 500 mg twice a day administered at the same time. - continue Aranesp - Status post transfused 2 packs red blood cells on 02/22/2017 and responded appropriately. Malnutrition - Regular diet- po improved per patient - Nepro one can 3 times a day between meals Hypertension. - continue Coreg and Norvasc and monitor Hemorrhoidal bleed. Improved also has diverticulosis status post colonoscopy in December 2016. EGD with gastritis and esophagitis on PPI. Denies heartburn and abdominal pain. Repeat CBC and coags unremarkable. Continue to monitor . Avoid constipation DVT prophylaxis - Patient ambulatory - Recommend SCDs teds while in bed Discharge Planning per CM- 03/11- [place] patient needs to report all asset - home he refused to pay for anything- administration involved Follow-up with [facility] for removal of endobronchial valves, has appointment rescheduled for 03/19/17. Nadja Peres MD Mar 13, 2017 13:20
[2017-03-13] MEDS: GENTAMICIN SULFATE (DIALYSIS USE ONLY) 20 MG/2 ML VIAL OTHER PRN (17:10)
[2017-03-13] MEDS: HEPARIN SODIUM - IV 10,000 UNITS/10 ML VIAL PRN (17:10)
[2017-03-13] MEDS: EPOETIN ALFA 10,000 UNITS/ML VIAL IV PUSH PRN (17:10)
[2017-03-13 20:00] VITALS: BP 145/85; PULSE 99; RESP 18; TEMP 97.9; O2SAT 93
[2017-03-13] MEDS: PANTOPRAZOLE SOD 40 MG DELAYED RELEASE TAB PO SCH (22:41)
[2017-03-14] VITALS: BP 116/74; PULSE 87; RESP 18; TEMP 97.8; O2SAT 92
[2017-03-14] MEDS: oxyCODONE/ACETAMINOPHEN 5 MG/325 MG TAB PO PRN (00:23)
[2017-03-14] MEDS: diphenhydrAMINE HCL 25 MG CAP PO PRN (02:11)
[2017-03-14 04:00] VITALS: BP 119/69; PULSE 80; RESP 16; TEMP 98.5; O2SAT 94
[2017-03-14 08:00] VITALS: BP 123/85; PULSE 96; RESP 18; TEMP 97.6; O2SAT 95
--- NOTE | 2017-03-14 08:40 | HHI.PR ---
Subjective Remarks afebrile no complains of fever or chills no diarrhea no pain complains micro called - growing Psudomonas Objective Vitals Vital Signs Date Time Temp Pulse Resp B/P (MAP) Pulse Ox O2 Delivery O2 Flow Rate FiO2 03/14/17 04:00 98.5 80 16 119/69 (86) 94 03/14/17 00:00 97.8 87 18 116/74 (88) 92 03/13/17 20:00 Room Air 03/13/17 20:00 97.9 99 18 145/85 (105) 93 03/13/17 16:00 03/13/17 12:00 98.1 73 18 99/53 (68) 95 03/13/17 09:00 Room Air I/O 03/13/17 03/13/17 03/13/17 03/14/17 03/14/17 03/14/17 07:00 15:00 23:00 07:00 15:00 23:00 Intake Total 1680 ml 480 ml Output Total 200 ml 500 ml Balance 1680 ml 280 ml -500 ml Intake Oral 1680 ml 480 ml Output Urine Total 200 ml Hemodialysis 500 ml # Voids 2 # Bowel Movements 1 0 Result Diagram: 03/12/17 0608 03/12/17 0608 Imaging Last Impressions Chest X-Ray 03/09/17 0000 Signed Impressions: Service Date/Time: Thursday, March 09, 2017 10:46 - CONCLUSION: 1. Left PICC distal tip is in appropriate position within the SVC. 2. Stable changes in the right lung with consolidation and cavitation in the upper lobe. No pneumothorax is present. Caio Unger MD Thyroid Ultrasound 02/25/17 0000 Signed Impressions: Service Date/Time: Saturday, February 25, 2017 13:26 - CONCLUSION: 1. Normal ultrasound examination of the thyroid gland. 2. Abnormal appearance of the left jugular vein with apparent flow adjacent to the jugular vein wall containing small amount of debris. Consider CTA/CTV examination for better characterization and to exclude possible AV fistula. Edenilson Villarreal MD Lung Scan-V Nuclear Medicine 02/22/17 0000 Signed Impressions: Service Date/Time: Wednesday, February 22, 2017 18:56 - CONCLUSION: Intermediate probability for pulmonary embolism. 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 Fonseca is a 56 year old male who has had a very long and complicated history of present illness. He has a known medical history of coronary artery disease status post CABG and chronic kidney disease who initially presented to the hospital on November 22, 2016 with sepsis, anemia, acute renal failure, and extensive right lung pneumonia with cavitation and underwent a right thoracotomy with VATS, lysis of adhesions, and decortication for pulmonary infiltrate in right lung and COPD on 12/30 but developed right chest tube related bronchopleural fistula. He was transferred to [facility] in [place] for further management of persistent leak/bronchopleural fistula. He was discharged on 01/22/2017. He returned following treatment at [facility] on 02/19. Bronchopleural fistula History of Right thoracotomy with VATS Persistent air leak with history of pneumothorax Empyema lung culture polymicrobial with MRSA, pseudomonas aeruginosa as (MDRO), viridans and Bacillus fragilis - status post multiple bronchoscopies with endobronchial valves and gluing performed at [facility] - Pulmonary ff - S/P Meropenem and doxycycline per ID- last dose 03/09 - micro called- + Pseudomonas on fluidculutre sent from 03/11 reviewed previous cultures does have greenish drainage on the dressing from both tubes no fever no leukocytosis will d/w ID- will not start any antibitoics Left neck fullness. asymptomatic TSH unremarkable. Thyroid sonogram with normal examination of the thyroid gland but abnormal appearance of the left jugular vein with apparent flow adjacent to the jugular vein wall containing small amount of debris. Discussed with radiology, possible carotid jugular fistula. Discussed with vascular surgery, we'll continue to observe Hypoxia. Resolved. good sats at room air -Chest x-ray showed right consolidation and patient also had increased purulent output in the chest tube. VQ scan suggests moderate probability but that is due to the consolidation. No suspicion for any PE. -CT surgery ff. no indication for any surgery. -COPD Exacerbation . Improved status post prednisone End-stage renal disease on hemodialysis Hypokalemia- 03/12 - got 30 meq po KCL - recheck this am - Assistant Golf Course Superintendent following. He is getting hemodialysis which needs to be set up outpatient.- CM assisting - Per motor bike mechanic patient will need a revision of the AV fistula - Avoid nephrotoxins - Monitor electrolytes - - fro HD this pm Anemia, iron deficiency vs CKD or combination -Continue with ferrous sulfate 300 mg liquid twice a day with vitamin C 500 mg twice a day administered at the same time. - continue Aranesp - Status post transfused 2 packs red blood cells on 02/22/2017 and responded appropriately. Malnutrition - Regular diet- po improved per patient - Nepro one can 3 times a day between meals Hypertension. - continue Coreg and Norvasc and monitor Hemorrhoidal bleed. Improved also has diverticulosis status post colonoscopy in December 2016. EGD with gastritis and esophagitis on PPI. Denies heartburn and abdominal pain. Repeat CBC and coags unremarkable. Continue to monitor . Avoid constipation DVT prophylaxis - Patient ambulatory - Recommend SCDs teds while in bed Discharge Planning per CM- 03/11- [place] patient needs to report all asset - home he refused to pay for anything- administration involved Follow-up with [facility] for removal of endobronchial valves, has appointment rescheduled for 03/19/17. Nadja Peres MD Mar 14, 2017 08:40
[2017-03-14] MEDS: SEVELAMER CARBONATE 800 MG TAB PO SCH ×4 (08:59→17:00)
[2017-03-14] MEDS: FOLIC ACID 1 MG TAB PO SCH ×2 (08:59→09:00)
[2017-03-14] MEDS: CARVEDILOL 12.5 MG TAB PO SCH ×3 (08:59→21:58)
[2017-03-14] MEDS: MULTIVITAMIN TAB PO SCH ×2 (08:59→09:00)
[2017-03-14] MEDS: amLODIPine BESYLATE 5 MG TAB PO SCH ×2 (08:59→09:00)
[2017-03-14] MEDS: CHOLECALCIFEROL (VIT D3) 1000 UNIT TAB PO SCH ×2 (08:59→09:00)
[2017-03-14] MEDS: LACTIC ACID (AMMONIUM LACTATE) 12% LOTION 225 GM BTL TOPICAL SCH ×2 (09:00→22:54)
[2017-03-14] MEDS: SODIUM CHLORIDE 0.9% FLUSH 10 ML FLUSH IV FLUSH SCH ×2 (09:00→21:00)
[2017-03-14 12:00] VITALS: BP 123/84; PULSE 92; RESP 18; TEMP 97.2; O2SAT 96
[2017-03-14] MEDS: FERROUS SULFATE 300 MG /5ML UDC PO SCH ×3 (12:00→17:00)
[2017-03-14] MEDS: ASCORBIC ACID 500 MG TAB PO SCH ×2 (12:33→17:00)
--- NOTE | 2017-03-14 13:38 | HHI.PR ---
Addendum to Inpatient Note Additional Information culture results noted will add zerbaxa/avicaz/colistine test dw micro Paz Fontanez MD Mar 14, 2017 13:38
[2017-03-14] MEDS: HEPARIN SODIUM - IV 10,000 UNITS/10 ML VIAL PRN (15:30)
[2017-03-14 16:00] VITALS: BP 132/76; PULSE 86; RESP 18; TEMP 97.6; O2SAT 97
--- NOTE | 2017-03-14 16:36 | HHI.NPPN ---
Subjective General Problems: Anemia Renal Failure: Chronic, End Stage Renal Disease Review of Systems General Constitutional: Fatigue Respiratory Lungs: SOB Cardiovascular Cardiac Remarks minor pain right lateral ribs secondary to tubes Objective Data Data Vital Signs Date Time Temp Pulse Resp B/P (MAP) Pulse Ox O2 Delivery O2 Flow Rate FiO2 03/14/17 16:00 Room Air 03/14/17 12:34 Room Air 03/14/17 12:00 97.2 92 18 123/84 (97) 96 03/14/17 09:00 Room Air 03/14/17 08:00 97.6 96 18 123/85 (98) 95 03/14/17 04:00 98.5 80 16 119/69 (86) 94 03/14/17 00:00 97.8 87 18 116/74 (88) 92 03/13/17 20:00 Room Air 03/13/17 20:00 97.9 99 18 145/85 (105) 93 -: 03/12/17 0608 03/14/17 1055 Microbiology 03/14/17 Gram Stain, Received Pending 03/14/17 Sputum Culture, Received Pending Tubes & Lines: Perma-Cath Physical Exam General Appearance: Well Developed, No Acute Distress, Comfortable, Pale, Malnourished Eyes Eye Exam: Pupils Equal Throat Throat Exam: Oral Mucosa [place] & Moist Neck Neck Exam: Neck Supple Pulmonary Resp Exam: Breath Sounds Equal, Crackles, Decreased Bases Cardiology CV Exam: Regular, Normal Sinus Rhythm Gastrointestinal/Abdomen GI Exam: Soft, Non-Tender, Bowel Sounds Present Musculoskeletal MS Exam: Joints Intact, Good Strength Integumentary Skin Exam: Clear, Warm, Dry, Intact Extremeties Extremities Exam: No Edema, Pedal Pulses Palpable Neurologic Neuro Exam: Alert, Awake, Oriented, Speech Clear, Moving All Extremities Psychiatric Psych Exam: Appropriate Responses Assessment/Plan Discussed Condition With: Patient Assessment Summary: Anemia of CKD, Hypertension, End Stage Renal Disease Problem List: (1) ESRD (end stage renal disease) on dialysis ICD Codes: N18.6 - End stage renal disease; Z99.2 - Dependence on renal dialysis Plan: HD support continues MWF PermCath in place for HD; will need AVF revision; hopefully will happen prior to discharge He has good urine output. Monitor electrolytes check P/C flow improved post cathflo (2) Malnutrition ICD Codes: E46 - Malnutrition Status: Acute Plan: High protein diet, add supplements (3) Empyema lung ICD Codes: J86.9 - Pyothorax without fistula Plan: Off antibiotics. Monitor the patient clinically Followup at [facility] on the . (4) Anemia ICD Codes: D64.9 - Anemia Status: Chronic Plan: On Epogen with HD, high dose Off Aranesp Transfused since admission Given Venofer IV Cecilio Driver MD Mar 14, 2017 16:36
[2017-03-14 20:00] VITALS: BP 124/78; PULSE 91; RESP 18; TEMP 98.6; O2SAT 94
[2017-03-14] MEDS: PANTOPRAZOLE SOD 40 MG DELAYED RELEASE TAB PO SCH (21:56)
[2017-03-15] VITALS: BP 115/64; PULSE 86; RESP 18; TEMP 97.5; O2SAT 96
[2017-03-15] MEDS: RESP: ALBUTEROL 2.5 MG/3 ML NEB (PRN) INH (01:05)
[2017-03-15 04:00] VITALS: BP 112/68; PULSE 87; RESP 16; TEMP 97.4; O2SAT 93
[2017-03-15 08:00] VITALS: BP 100/72; PULSE 84; RESP 18; TEMP 97.7; O2SAT 96
[2017-03-15] MEDS: CHOLECALCIFEROL (VIT D3) 1000 UNIT TAB PO SCH (08:50)
[2017-03-15] MEDS: FOLIC ACID 1 MG TAB PO SCH (08:50)
[2017-03-15] MEDS: amLODIPine BESYLATE 5 MG TAB PO SCH (08:50)
[2017-03-15] MEDS: MULTIVITAMIN TAB PO SCH (08:50)
[2017-03-15] MEDS: CARVEDILOL 12.5 MG TAB PO SCH ×2 (08:50→20:58)
[2017-03-15] MEDS: SEVELAMER CARBONATE 800 MG TAB PO SCH ×3 (08:51→17:00)
[2017-03-15] MEDS: SODIUM CHLORIDE 0.9% FLUSH 10 ML FLUSH IV FLUSH SCH ×2 (09:00→20:58)
[2017-03-15] MEDS: LACTIC ACID (AMMONIUM LACTATE) 12% LOTION 225 GM BTL TOPICAL SCH ×2 (09:10→20:58)
[2017-03-15 10:20] LABS: BICARBONATE 27.2 MEQ/L (21.0-32.0); POTASSIUM 3.7 MEQ/L (3.5-5.1)
[2017-03-15 12:00] VITALS: BP 123/76; PULSE 81; RESP 18; TEMP 97.8; O2SAT 96
--- NOTE | 2017-03-15 13:34 | HHI.PR ---
Subjective Remarks Follow up empyema, renal failure. Patient states that he feels okay today. Denies cough or dyspnea. He does report sharp pains in the right side of his chest with twisting movements. Objective Vitals Vital Signs Date Time Temp Pulse Resp B/P (MAP) Pulse Ox O2 Delivery O2 Flow Rate FiO2 03/15/17 09:15 Room Air 03/15/17 08:00 97.7 84 18 100/72 (81) 96 03/15/17 04:00 97.4 87 16 112/68 (83) 93 03/15/17 00:00 97.5 86 18 115/64 (81) 96 03/14/17 20:00 98.6 91 18 124/78 (93) 94 03/14/17 20:00 Room Air 03/14/17 16:00 97.6 86 18 132/76 (94) 97 03/14/17 16:00 Room Air I/O 03/14/17 03/14/17 03/14/17 03/15/17 03/15/17 03/15/17 07:00 15:00 23:00 07:00 15:00 23:00 Intake Total 1500 ml Output Total 300 ml Balance 1500 ml -300 ml Intake Oral 1500 ml Output Urine Total 300 ml # Voids 5 # Bowel Movements 1 Result Diagram: 03/12/17 0608 03/15/17 0855 Imaging Last Impressions Chest X-Ray 03/09/17 0000 Signed Impressions: Service Date/Time: Thursday, March 09, 2017 10:46 - CONCLUSION: 1. Left PICC distal tip is in appropriate position within the SVC. 2. Stable changes in the right lung with consolidation and cavitation in the upper lobe. No pneumothorax is present. Caio Unger MD Thyroid Ultrasound 02/25/17 0000 Signed Impressions: Service Date/Time: Saturday, February 25, 2017 13:26 - CONCLUSION: 1. Normal ultrasound examination of the thyroid gland. 2. Abnormal appearance of the left jugular vein with apparent flow adjacent to the jugular vein wall containing small amount of debris. Consider CTA/CTV examination for better characterization and to exclude possible AV fistula. Edenilson Villarreal MD Lung Scan- Nuclear Medicine 02/22/17 0000 Signed Impressions: Service Date/Time: Wednesday, February 22, 2017 18:56 - CONCLUSION: Intermediate probability for pulmonary embolism. Vasu Barrientos MD Objective Remarks General: Thin male in no acute distress. Heart: Regular rate and rhythm. No murmur. Lungs: Clear to auscultation bilaterally. No wheezes, rales, or rhonchi. Breathing is nonlabored. Right chest wall bandaged. Abdomen: Soft, nontender, nondistended. Extremities: No lower extremity edema. Psych: Alert and oriented. 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 Empyema, history of pneumothorax, bronchopleural fistula: Status post right thoracotomy with VATS. Appreciate pulmonology recommendations. Culture growing multidrug-resistant Pseudomonas. Appreciate infectious disease recommendations. Patient is status post multiple bronchoscopies with endobronchial valves performed at [facility]. Due to follow-up on 03/19/17. 2. Hypoxia: Resolved. 3. End-stage renal disease on hemodialysis Thursday/Thursday/Thursday: Management per nephrology. He will need a revision of his AV fistula. 4. Anemia, iron deficiency versus chronic kidney disease: Continue iron sulfate. Received transfusion of 2 units PRBCs on 02/22/17. 5. Malnutrition: Oral intake improving. Nepro 3 times a day. 6. Hypertension: Continue Norvasc, Coreg. 7. Hemorrhoidal bleeding: Avoid constipation. 8. DVT prophylaxis: SCDs. Discharge Planning Case management assisting with discharge planning. Patient states that he will need to return to [facility] on 03/19/17. Davide Sifuentes MD Mar 15, 2017 13:34
[2017-03-15] MEDS: FERROUS SULFATE 300 MG /5ML UDC PO SCH ×2 (13:52→17:00)
[2017-03-15] MEDS: ASCORBIC ACID 500 MG TAB PO SCH ×2 (13:52→17:00)
[2017-03-15 16:00] VITALS: BP 130/71; PULSE 85; RESP 16; TEMP 98.2; O2SAT 95
[2017-03-15 20:00] VITALS: BP 154/92; PULSE 91; RESP 20; TEMP 97.5; O2SAT 97
[2017-03-15] MEDS: PANTOPRAZOLE SOD 40 MG DELAYED RELEASE TAB PO SCH (20:58)
[2017-03-16] VITALS: BP 127/75; PULSE 92; RESP 20; TEMP 97.9; O2SAT 97
[2017-03-16] MEDS: oxyCODONE/ACETAMINOPHEN 5 MG/325 MG TAB PO PRN (00:41)
[2017-03-16 04:00] VITALS: BP 139/80; PULSE 87; RESP 20; TEMP 98; O2SAT 94
[2017-03-16] MEDS: SEVELAMER CARBONATE 800 MG TAB PO SCH ×3 (08:00→19:00)
[2017-03-16] MEDS: SODIUM CHLORIDE 0.9% FLUSH 10 ML FLUSH IV FLUSH SCH ×2 (09:00→21:19)
[2017-03-16 09:12] LABS: AUTOMATED NEUTROPHIL # 4.2 TH/MM3 (1.8-7.7); BASOPHIL # 0.1 TH/MM3 (0-0.2); BASOPHIL % 0.7 % (0.0-2.0); EOSINOPHIL # 0.8 TH/MM3 (0-0.4); EOSINOPHIL % 10.2 % (0.0-4.0); HEMATOCRIT 27.5 % (39.0-51.0); HEMO FLAGS DIFF FINAL; LYMPH % 28.7 % (9.0-44.0); LYMPHOCYTE # 2.3 TH/MM3 (1.0-4.8); MEAN CELL VOLUME 92.9 FL (80.0-100.0); MEAN CORPUSCULAR HEMOGLOBIN 31.1 PG (27.0-34.0); MEAN CORPUSCULAR HGB CONC 33.5 % (32.0-36.0); MONO % 6.8 % (0.0-8.0); NEUT % 53.6 % (16.0-70.0); PLATELET COUNT 156 TH/MM3 (150-450); RED BLOOD COUNT 2.96 MIL/MM3 (4.50-5.90); RED CELL DISTRIBUTION WIDTH 19.3 % (11.6-17.2); WHITE BLOOD COUNT 7.9 TH/MM3 (4.0-11.0)
[2017-03-16 09:30] VITALS: BP 151/85; PULSE 96; RESP 18; TEMP 98.2; O2SAT 94
[2017-03-16 09:37] LABS: BICARBONATE 25.1 MEQ/L (21.0-32.0); MAGNESIUM 2.2 MG/DL (1.5-2.5); POTASSIUM 3.9 MEQ/L (3.5-5.1)
[2017-03-16] MEDS: amLODIPine BESYLATE 5 MG TAB PO SCH (10:57)
[2017-03-16] MEDS: CARVEDILOL 12.5 MG TAB PO SCH ×2 (10:57→21:18)
[2017-03-16] MEDS: CHOLECALCIFEROL (VIT D3) 1000 UNIT TAB PO SCH (10:57)
[2017-03-16] MEDS: MULTIVITAMIN TAB PO SCH (10:57)
[2017-03-16] MEDS: FOLIC ACID 1 MG TAB PO SCH (10:57)
[2017-03-16] MEDS: LACTIC ACID (AMMONIUM LACTATE) 12% LOTION 225 GM BTL TOPICAL SCH ×2 (11:08→21:18)
[2017-03-16 12:00] VITALS: BP 129/85; PULSE 87; RESP 20; TEMP 98.2; O2SAT 95
[2017-03-16] MEDS: ASCORBIC ACID 500 MG TAB PO SCH ×2 (12:43→19:00)
[2017-03-16] MEDS: FERROUS SULFATE 300 MG /5ML UDC PO SCH ×2 (12:43→19:01)
--- NOTE | 2017-03-16 13:44 | HHI.NPPN ---
Subjective General Problems: Anemia Renal Failure: Chronic, End Stage Renal Disease Review of Systems General Constitutional: Fatigue Respiratory Lungs: SOB Cardiovascular Cardiac Remarks minor pain right lateral ribs secondary to tubes Objective Data Data Vital Signs Date Time Temp Pulse Resp B/P (MAP) Pulse Ox O2 Delivery O2 Flow Rate FiO2 03/16/17 11:00 Room Air 03/16/17 09:30 98.2 96 18 151/85 (107) 94 03/16/17 04:00 98.0 87 20 139/80 (99) 94 03/16/17 00:00 97.9 92 20 127/75 (92) 97 03/15/17 20:00 97.5 91 20 154/92 (112) 97 03/15/17 20:00 Room Air 03/15/17 16:00 98.2 85 16 130/71 (90) 95 03/15/17 13:46 Room Air -: 03/16/17 0720 03/16/17 0720 Tubes & Lines: Perma-Cath Physical Exam General Appearance: Well Developed, No Acute Distress, Comfortable, Pale, Malnourished Eyes Eye Exam: Pupils Equal Throat Throat Exam: Oral Mucosa [place] & Moist Neck Neck Exam: Neck Supple Pulmonary Resp Exam: Breath Sounds Equal, Crackles, Decreased Bases Cardiology CV Exam: Regular, Normal Sinus Rhythm Gastrointestinal/Abdomen GI Exam: Soft, Non-Tender, Bowel Sounds Present Musculoskeletal MS Exam: Joints Intact, Good Strength Integumentary Skin Exam: Clear, Warm, Dry, Intact Extremeties Extremities Exam: No Edema, Pedal Pulses Palpable Neurologic Neuro Exam: Alert, Awake, Oriented, Speech Clear, Moving All Extremities Psychiatric Psych Exam: Appropriate Responses Assessment/Plan Discussed Condition With: Patient Assessment Summary: Anemia of CKD, Hypertension, End Stage Renal Disease Problem List: (1) ESRD (end stage renal disease) on dialysis ICD Codes: N18.6 - End stage renal disease; Z99.2 - Dependence on renal dialysis Plan: HD support continues MWF PermCath in place for HD; tolerating it well He has good urine output. Monitor electrolytes (2) Malnutrition ICD Codes: E46 - Malnutrition Status: Acute Plan: High protein diet, add supplements (3) Empyema lung ICD Codes: J86.9 - Pyothorax without fistula Plan: Off antibiotics. Monitor the patient clinically Followup at [facility] on the . (4) Anemia ICD Codes: D64.9 - Anemia Status: Chronic Plan: On Epogen with HD, high dose Off Aranesp Transfused since admission Given Venofer IV Cecilio Driver MD Mar 16, 2017 13:44
--- NOTE | 2017-03-16 15:01 | HHI.PR ---
Subjective Remarks Follow up empyema, renal failure. States that he feels better today. Intermittent dyspnea. Some pain in the right chest wall with movement. Objective Vitals Vital Signs Date Time Temp Pulse Resp B/P (MAP) Pulse Ox O2 Delivery O2 Flow Rate FiO2 03/16/17 12:00 98.2 87 20 129/85 (100) 95 03/16/17 11:00 Room Air 03/16/17 09:30 98.2 96 18 151/85 (107) 94 03/16/17 04:00 98.0 87 20 139/80 (99) 94 03/16/17 00:00 97.9 92 20 127/75 (92) 97 03/15/17 20:00 97.5 91 20 154/92 (112) 97 03/15/17 20:00 Room Air 03/15/17 16:00 98.2 85 16 130/71 (90) 95 I/O 03/15/17 03/15/17 03/15/17 03/16/17 03/16/17 03/16/17 06:59 14:59 22:59 06:59 14:59 22:59 Intake Total 1900 ml 400 ml Output Total 300 ml 550 ml Balance -300 ml 1900 ml -150 ml Intake Oral 1900 ml 400 ml Output Urine Total 300 ml 550 ml # Voids 4 # Bowel Movements 1 Result Diagram: 03/16/17 0720 03/16/17 0720 Imaging Last Impressions Chest X-Ray 03/09/17 0000 Signed Impressions: Service Date/Time: Thursday, March 09, 2017 10:46 - CONCLUSION: 1. Left PICC distal tip is in appropriate position within the SVC. 2. Stable changes in the right lung with consolidation and cavitation in the upper lobe. No pneumothorax is present. Caio Unger MD Thyroid Ultrasound 02/25/17 0000 Signed Impressions: Service Date/Time: Saturday, February 25, 2017 13:26 - CONCLUSION: 1. Normal ultrasound examination of the thyroid gland. 2. Abnormal appearance of the left jugular vein with apparent flow adjacent to the jugular vein wall containing small amount of debris. Consider CTA/CTV examination for better characterization and to exclude possible AV fistula. Edenilson Villarreal MD Lung Scan- Nuclear Medicine 02/22/17 0000 Signed Impressions: Service Date/Time: Wednesday, February 22, 2017 18:56 - CONCLUSION: Intermediate probability for pulmonary embolism. Vasu Barrientos MD Objective Remarks General: Thin male in no acute distress. Heart: Regular rate and rhythm. No murmur. Lungs: Clear to auscultation bilaterally. No wheezes, rales, or rhonchi. Breathing is nonlabored. Right chest wall bandaged. Abdomen: Soft, nontender, nondistended. Extremities: No lower extremity edema. Psych: Alert and oriented. 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 Empyema, history of pneumothorax, bronchopleural fistula: Status post right thoracotomy with VATS. Appreciate pulmonology recommendations. Culture growing multidrug-resistant Pseudomonas. Appreciate infectious disease recommendations. Patient is status post multiple bronchoscopies with endobronchial valves performed at [facility]. Due to follow-up on 03/19/17. Discussed with Dr. Wilson. 2. Hypoxia: Resolved. 3. End-stage renal disease on hemodialysis Thursday/Thursday/Thursday: Management per nephrology. He will need a revision of his AV fistula. 4. Anemia, iron deficiency versus chronic kidney disease: Continue iron sulfate. Received transfusion of 2 units PRBCs on 02/22/17. 5. Malnutrition: Oral intake improving. Nepro 3 times a day. 6. Hypertension: Continue Norvasc, Coreg. 7. Hemorrhoidal bleeding: Avoid constipation. 8. DVT prophylaxis: SCDs. Discharge Planning Patient states that he will need to return to [facility] on 03/19/17. He needs outpatient dialysis to be arranged, but has no payor source at this time. Case management assisting. Davide Sifuentes MD Mar 16, 2017 15:01
[2017-03-16] MEDS: EPOETIN ALFA 10,000 UNITS/ML VIAL IV PUSH PRN (16:55)
[2017-03-16] MEDS: GENTAMICIN SULFATE (DIALYSIS USE ONLY) 20 MG/2 ML VIAL OTHER PRN (16:55)
[2017-03-16] MEDS: HEPARIN SODIUM - IV 10,000 UNITS/10 ML VIAL PRN (16:56)
--- NOTE | 2017-03-16 19:23 | HHI.PR ---
Subjective Remarks C/O Green drainage from chest tubes on Right. No Fever. Will go to [facility] on the 14 th. Off o2.. Will be Dialyzed. Objective Vital Signs Date Time Temp Pulse Resp B/P (MAP) Pulse Ox O2 Delivery O2 Flow Rate FiO2 03/16/17 12:00 98.2 87 20 129/85 (100) 95 03/16/17 11:00 Room Air 03/16/17 09:30 98.2 96 18 151/85 (107) 94 03/16/17 04:00 98.0 87 20 139/80 (99) 94 03/16/17 00:00 97.9 92 20 127/75 (92) 97 03/15/17 20:00 97.5 91 20 154/92 (112) 97 03/15/17 20:00 Room Air I/O 03/15/17 03/15/17 03/15/17 03/16/17 03/16/17 03/16/17 07:00 15:00 23:00 07:00 15:00 23:00 Intake Total 1900 ml 400 ml 480 ml Output Total 300 ml 550 ml 1050 ml Balance -300 ml 1900 ml -150 ml -570 ml Intake Oral 1900 ml 400 ml 480 ml Output Urine Total 300 ml 550 ml 400 ml Hemodialysis 650 ml # Voids 4 # Bowel Movements 1 Result Diagram: 03/16/1771903/16/17 0720 Objective Remarks IN GENERAL: This is a middle-aged thinly built white male who is pale and alert. HEAD, EYES, EARS, NOSE, AND THROAT: Head normocephalic. Pupils reactive. Tongue is moist. Throat was clear. Nasal mucosa clear. NECK: Supple. No bruits or thyroid enlargement. CHEST: Decreased breath sounds over the right chest and Chest Tubes in place in Right chest.Occ Crackles. HEART: The heart sounds are regular S1-S2. No murmur. ABDOMEN: The abdomen is soft, protuberant without masses or organomegaly or tenderness. Bowel sounds are active. EXTREMITIES: no edema. Peripheral pulses are diminished. NEUROLOGIC: Reflexes are 1+ with no gross motor deficits. SKIN: No lesions noted.No leg edema. Assessment and Plan Assessment and Plan IMPRESSION 1. Right bronchopleural fistula. 2. Empyema right chest. 3. Persistent air leak with history of pneumothorax. 4. COPD, chronic bronchitis or bronchiectasis. 5. End-stage renal disease on dialysis. Plan : 1. Will use O2 PRN at 2 L 2. Nebs BID Duoneb. 3. antibiotics per ID. 4. IS at bedside q2h. 5. Dressing change of right chest daily. 6. To [facility] on 03/19. 7. Chest Xray in am Alison Wilson MD Mar 16, 2017 19:23
[2017-03-16 20:00] VITALS: BP 119/87; PULSE 97; RESP 16; TEMP 97.8; O2SAT 95
[2017-03-16] MEDS: PANTOPRAZOLE SOD 40 MG DELAYED RELEASE TAB PO SCH (21:17)
[2017-03-17] VITALS (7 sets, daily range): BP systolic 104–137; BP diastolic 65–85; PULSE 85–97; RESP 16–20; TEMP 97.5–98.7; O2SAT 92–96
--- NOTE | 2017-03-17 06:21 | RADRPT ---
EXAM DATE/TIME: 03/17/2017 04:29 [place] COMPARISON: CHEST SINGLE AP, March 09, 2017, 10:46. INDICATIONS : Short of breath. MEDICAL HISTORY : Renal disease, end stage. Cardiovascular disease. Hypertension. SURGICAL HISTORY : CABG. dialysis catheter. ENCOUNTER: Subsequent ACUITY: 2 weeks PAIN SCORE: Non-responsive. LOCATION: Bilateral chest FINDINGS: Patchy infiltrates with cavitation in the right upper lung, stable. Double lumen central stable. Ri ght perihilar stents, median sternotomy, and evidence of prior CABG. Interval removal of left PICC l ine. There are 2 chest drainage tubes at the right base, stable in position with stable right lower lung infiltrates. Left lung is clear. The heart is normal size. CONCLUSION: Chest tube and central line stable. Stable right upper and lower lung infiltrates. Mustapha Wright MD on March 17, 2017 at 6:18 Board Certified Radiologist. This report was verified electronically.
[2017-03-17] MEDS: CHOLECALCIFEROL (VIT D3) 1000 UNIT TAB PO SCH (08:53)
[2017-03-17] MEDS: SEVELAMER CARBONATE 800 MG TAB PO SCH ×3 (08:53→17:59)
[2017-03-17] MEDS: CARVEDILOL 12.5 MG TAB PO SCH ×2 (08:53→22:09)
[2017-03-17] MEDS: FOLIC ACID 1 MG TAB PO SCH (08:53)
[2017-03-17] MEDS: MULTIVITAMIN TAB PO SCH (08:53)
[2017-03-17] MEDS: amLODIPine BESYLATE 5 MG TAB PO SCH (08:53)
[2017-03-17] MEDS: SODIUM CHLORIDE 0.9% FLUSH 10 ML FLUSH IV FLUSH SCH ×2 (08:54→22:10)
[2017-03-17] MEDS: LACTIC ACID (AMMONIUM LACTATE) 12% LOTION 225 GM BTL TOPICAL SCH ×2 (08:57→22:10)
[2017-03-17] MEDS: ASCORBIC ACID 500 MG TAB PO SCH ×2 (12:29→18:05)
[2017-03-17] MEDS: FERROUS SULFATE 300 MG /5ML UDC PO SCH ×2 (12:29→18:05)
--- NOTE | 2017-03-17 12:43 | HHI.PR ---
Subjective Remarks Follow-up renal failure, empyema. Patient reports shortness of breath with exertion. Denies chest pain. Does still have some pain at the drainage site. Objective Vitals Vital Signs Date Time Temp Pulse Resp B/P (MAP) Pulse Ox O2 Delivery O2 Flow Rate FiO2 03/17/17 08:00 97.5 88 20 131/75 (93) 92 03/17/17 04:00 97.6 85 16 127/74 (91) 93 03/17/17 00:00 98.0 89 18 123/76 (92) 95 03/17/17 00:00 Room Air 03/16/17 20:00 97.8 97 16 119/87 (98) 95 03/16/17 20:00 Room Air I/O 03/16/17 03/16/17 03/16/17 03/17/17 03/17/17 03/17/17 07:00 15:00 23:00 07:00 15:00 23:00 Intake Total 400 ml 480 ml 480 ml Output Total 550 ml 1050 ml Balance -150 ml -570 ml 480 ml Intake Oral 400 ml 480 ml 480 ml Output Urine Total 550 ml 400 ml Hemodialysis 650 ml # Voids 4 # Bowel Movements 1 0 Result Diagram: 03/16/17 0720 03/16/17 0720 Imaging Last Impressions Chest X-Ray 03/17/17 0600 Signed Impressions: Service Date/Time: Friday, March 17, 2017 04:29 - CONCLUSION: Chest tube and central line stable. Stable right upper and lower lung infiltrates. Mustapha Wright MD Thyroid Ultrasound 02/25/17 0000 Signed Impressions: Service Date/Time: Saturday, February 25, 2017 13:26 - CONCLUSION: 1. Normal ultrasound examination of the thyroid gland. 2. Abnormal appearance of the left jugular vein with apparent flow adjacent to the jugular vein wall containing small amount of debris. Consider CTA/CTV examination for better characterization and to exclude possible AV fistula. Edenilson Villarreal MD Lung Scan-V Nuclear Medicine 02/22/17 0000 Signed Impressions: Service Date/Time: Wednesday, February 22, 2017 18:56 - CONCLUSION: Intermediate probability for pulmonary embolism. Vasu Barrientos MD Objective Remarks General: Thin male in no acute distress. Heart: Regular rate and rhythm. No murmur. Lungs: Clear to auscultation bilaterally. No wheezes, rales, or rhonchi. Breathing is nonlabored. Right chest wall bandaged. Abdomen: Soft, nontender, nondistended. Extremities: No lower extremity edema. Psych: Alert and oriented. 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 Awaiting establishment of insurance coverage to arrange outpatient dialysis. 1. Empyema, history of pneumothorax, bronchopleural fistula: Status post right thoracotomy with VATS. Appreciate pulmonology recommendations. Culture growing multidrug-resistant Pseudomonas. Appreciate infectious disease recommendations. Patient is status post multiple bronchoscopies with endobronchial valves performed at [facility]. Due to follow-up on 03/19/17. Discussed with Dr. Wilson. From pulmonary perspective, patient can be discharged. 2. Hypoxia: Resolved. 3. End-stage renal disease on hemodialysis Thursday/Thursday/Thursday: Management per nephrology. 4. Anemia, iron deficiency versus chronic kidney disease: Continue iron sulfate. Received transfusion of 2 units PRBCs on 02/22/17. 5. Malnutrition: Oral intake improving. Nepro 3 times a day. 6. Hypertension: Continue Norvasc, Coreg. 7. Hemorrhoidal bleeding: Avoid constipation. 8. DVT prophylaxis: SCDs. Discharge Planning Patient states that he will need to return to [facility] on 03/19/17. He needs outpatient dialysis, but has no payor source arranged at this time. Case management assisting. Davide Sifuentes MD Mar 17, 2017 12:43
--- NOTE | 2017-03-17 18:03 | HHI.PR ---
Subjective Remarks C/O Green drainage from chest tubes on Right. Has MDRO on Culture of drainage. Will go to [facility] on the . ID will hold off antibiotics for now. Off o2.. Will be Dialyzed. Objective Vital Signs Date Time Temp Pulse Resp B/P (MAP) Pulse Ox O2 Delivery O2 Flow Rate FiO2 03/17/17 16:18 Room Air 03/17/17 12:00 98.3 88 20 104/65 (78) 93 03/17/17 08:00 97.5 88 20 131/75 (93) 92 03/17/17 04:00 97.6 85 16 127/74 (91) 93 03/17/17 00:00 98.0 89 18 123/76 (92) 95 03/17/17 00:00 Room Air 03/16/17 20:00 97.8 97 16 119/87 (98) 95 03/16/17 20:00 Room Air I/O 03/16/17 03/16/17 03/16/17 03/17/17 03/17/17 03/17/17 07:00 15:00 23:00 07:00 15:00 23:00 Intake Total 400 ml 480 ml 480 ml Output Total 550 ml 1050 ml Balance -150 ml -570 ml 480 ml Intake Oral 400 ml 480 ml 480 ml Output Urine Total 550 ml 400 ml Hemodialysis 650 ml # Voids 4 # Bowel Movements 1 0 Result Diagram: 03/16/1771903/16/17 0720 Objective Remarks IN GENERAL: This is a middle-aged thinly built white male who is pale and alert. HEAD, EYES, EARS, NOSE, AND THROAT: Head normocephalic. Pupils reactive. Tongue is moist. Throat was clear. NECK: Supple. No bruits or thyroid enlargement. CHEST: Decreased breath sounds over the right chest and Chest Tubes in place in Right chest.Occ Crackles. HEART: The heart sounds are regular S1-S2. No murmur. ABDOMEN: The abdomen is soft, without masses or organomegaly or tenderness. Bowel sounds are active. EXTREMITIES: no edema. Peripheral pulses are diminished. NEUROLOGIC: Reflexes are 1+ with no gross motor deficits. SKIN: No lesions noted.No leg edema. Assessment and Plan Assessment and Plan IMPRESSION 1. Right bronchopleural fistula. 2. Empyema right chest. 3. Persistent air leak with history of pneumothorax. 4. COPD, chronic bronchitis or bronchiectasis. 5. End-stage renal disease on dialysis. Plan : 1. Will use O2 PRN at 2 L 2. Nebs BID Duoneb. 3. Thoracic surgery to see again 4. IS at bedside q2h. 5. Dressing change of right chest daily. 6. To Loc[facility] on 03/19. Alison Wilson MD Mar 17, 2017 18:03
[2017-03-17] MEDS: PANTOPRAZOLE SOD 40 MG DELAYED RELEASE TAB PO SCH (22:09)
[2017-03-18 05:00] VITALS: BP 131/67; PULSE 80; RESP 16; TEMP 97.7; O2SAT 94
[2017-03-18] MEDS: MULTIVITAMIN TAB PO SCH (07:58)
[2017-03-18] MEDS: SEVELAMER CARBONATE 800 MG TAB PO SCH (07:59)
[2017-03-18] MEDS: FOLIC ACID 1 MG TAB PO SCH (07:59)
[2017-03-18] MEDS: CHOLECALCIFEROL (VIT D3) 1000 UNIT TAB PO SCH (07:59)
[2017-03-18] MEDS: amLODIPine BESYLATE 5 MG TAB PO SCH (08:01)
[2017-03-18] MEDS: CARVEDILOL 12.5 MG TAB PO SCH (08:01)
[2017-03-18 08:06] VITALS: BP 114/73; PULSE 81; RESP 18; TEMP 97.9; O2SAT 96
[2017-03-18] MEDS: LACTIC ACID (AMMONIUM LACTATE) 12% LOTION 225 GM BTL TOPICAL SCH (09:00)
[2017-03-18] MEDS: SODIUM CHLORIDE 0.9% FLUSH 10 ML FLUSH IV FLUSH SCH (09:00)
[2017-03-18] MEDS ORDERED: AMLO5 PO (13:29)
--- NOTE | 2017-03-18 13:36 | HHI.DCPOC ---
Discharge Care Plan Diagnosis: (1) ESRD (end stage renal disease) on dialysis (2) Right thoracotomy with VATS assist, lysis of adhesions, decortication, pleural biopsies (3) Bronchopleural fistula Goals to Promote Your Health * To prevent worsening of your condition and complications * To maintain your health at the optimal level Directions to Meet Your Goals Take your medications as prescribed Follow your dietary instruction Follow activity as directed Keep your appointments as scheduled Take your immunizations and boosters as scheduled If your symptoms worsen call your PCP, if no PCP go to Urgent Care Center or Emergency Room Smoking is Dangerous to Your Health. Avoid second hand smoke Call the 24-hour hour crisis hotline for domestic abuse at Davide Sifuentes MD Mar 18, 2017 13:36
[2017-03-18] MEDS: EPOETIN ALFA 10,000 UNITS/ML VIAL IV PUSH PRN (14:01)
[2017-03-18] MEDS: HEPARIN SODIUM - IV 10,000 UNITS/10 ML VIAL PRN (14:01)
[2017-03-18] MEDS: GENTAMICIN SULFATE (DIALYSIS USE ONLY) 20 MG/2 ML VIAL OTHER PRN (14:02)
--- NOTE | 2017-03-18 14:03 | HHI.NPPN ---
Subjective General Problems: Anemia Renal Failure: Chronic, End Stage Renal Disease Review of Systems General Constitutional: Fatigue Respiratory Lungs: SOB Cardiovascular Cardiac Remarks minor pain right lateral ribs secondary to tubes Objective Data Data Vital Signs Date Time Temp Pulse Resp B/P (MAP) Pulse Ox O2 Delivery O2 Flow Rate FiO2 03/18/17 08:06 97.9 81 18 114/73 (87) 96 03/18/17 08:00 Room Air 03/18/17 05:00 97.7 80 16 131/67 (88) 94 03/17/17 23:58 98.7 87 16 112/72 (85) 96 03/17/17 20:00 98.1 90 16 137/85 (102) 92 03/17/17 20:00 Room Air 03/17/17 16:18 Room Air 03/17/17 16:00 98.5 97 20 116/70 (85) 92 -: 03/16/17 0720 03/16/17 0720 Tubes & Lines: Perma-Cath Physical Exam General Appearance: Well Developed, No Acute Distress, Comfortable, Pale, Malnourished Eyes Eye Exam: Pupils Equal Throat Throat Exam: Oral Mucosa [place] & Moist Neck Neck Exam: Neck Supple Pulmonary Resp Exam: Breath Sounds Equal, Crackles, Decreased Bases Cardiology CV Exam: Regular, Normal Sinus Rhythm Gastrointestinal/Abdomen GI Exam: Soft, Non-Tender, Bowel Sounds Present Musculoskeletal MS Exam: Joints Intact, Good Strength Integumentary Skin Exam: Clear, Warm, Dry, Intact Extremeties Extremities Exam: No Edema, Pedal Pulses Palpable Neurologic Neuro Exam: Alert, Awake, Oriented, Speech Clear, Moving All Extremities Psychiatric Psych Exam: Appropriate Responses Assessment/Plan Discussed Condition With: Patient Assessment Summary: Anemia of CKD, Hypertension, End Stage Renal Disease Problem List: (1) ESRD (end stage renal disease) on dialysis ICD Codes: N18.6 - End stage renal disease; Z99.2 - Dependence on renal dialysis Plan: HD support continues MWF PermCath in place for HD; tolerating it well He has good urine output. Monitor electrolytes UF 600 CC he is upset as insurance issues he is been discharged (2) Malnutrition ICD Codes: E46 - Malnutrition Status: Acute Plan: High protein diet, add supplements (3) Empyema lung ICD Codes: J86.9 - Pyothorax without fistula Plan: Off antibiotics. Monitor the patient clinically [facility] . (4) Anemia ICD Codes: D64.9 - Anemia Status: Chronic Plan: On Epogen with HD, high dose Off Aranesp Transfused since admission Given Venofer IV Cecilio Driver MD Mar 18, 2017 14:03
--- NOTE | 2017-03-18 14:04 | HHI.PR ---
Subjective Remarks Patient seen in dialysis. Follow up renal failure, empyema. Patient has no complaints at this time. Objective Vitals Vital Signs Date Time Temp Pulse Resp B/P (MAP) Pulse Ox O2 Delivery O2 Flow Rate FiO2 03/18/17 08:06 97.9 81 18 114/73 (87) 96 03/18/17 08:00 Room Air 03/18/17 05:00 97.7 80 16 131/67 (88) 94 03/17/17 23:58 98.7 87 16 112/72 (85) 96 03/17/17 20:00 98.1 90 16 137/85 (102) 92 03/17/17 20:00 Room Air 03/17/17 16:18 Room Air 03/17/17 16:00 98.5 97 20 116/70 (85) 92 I/O 03/17/17 03/17/17 03/17/17 03/18/17 03/18/17 03/18/17 07:00 15:00 23:00 07:00 15:00 23:00 Intake Total 480 ml 720 ml 840 ml Output Total 800 ml Balance 480 ml -80 ml 840 ml Intake Oral 480 ml 720 ml 840 ml Output Urine Total 800 ml # Voids 4 4 # Bowel Movements 0 1 0 Result Diagram: 03/16/17 0720 03/16/17 0720 Imaging Last Impressions Chest X-Ray 03/17/17 0600 Signed Impressions: Service Date/Time: Friday, March 17, 2017 04:29 - CONCLUSION: Chest tube and central line stable. Stable right upper and lower lung infiltrates. Mustapha Wright MD Thyroid Ultrasound 02/25/17 0000 Signed Impressions: Service Date/Time: Saturday, February 25, 2017 13:26 - CONCLUSION: 1. Normal ultrasound examination of the thyroid gland. 2. Abnormal appearance of the left jugular vein with apparent flow adjacent to the jugular vein wall containing small amount of debris. Consider CTA/CTV examination for better characterization and to exclude possible AV fistula. Edenilson Villarreal MD Lung Scan-V Nuclear Medicine 02/22/17 0000 Signed Impressions: Service Date/Time: Wednesday, February 22, 2017 18:56 - CONCLUSION: Intermediate probability for pulmonary embolism. Vasu Barrientos MD Objective Remarks General: Thin male in no acute distress. Heart: Regular rate and rhythm. No murmur. Lungs: Clear to auscultation bilaterally. No wheezes, rales, or rhonchi. Breathing is nonlabored. Right chest wall bandaged. Abdomen: Soft, nontender, nondistended. Extremities: No lower extremity edema. Psych: Alert and oriented. 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 Wilson, who has cleared the patient for discharge from pulmonology standpoint so he can keep appointment tomorrow at [facility]. I spoke with Dr. Driver, who cleared the patient for discharge after dialysis today with instructions to return on Thursday for dialysis (if transitional dialysis cannot be arranged). I spoke with Dr. Fontanez, infectious disease, who recommends no antibiotics at this time and states that the patient can be discharged. 1. Empyema, history of pneumothorax, bronchopleural fistula: Status post right thoracotomy with VATS. Appreciate pulmonology recommendations. Culture growing multidrug-resistant Pseudomonas. Appreciate infectious disease recommendations. Patient is status post multiple bronchoscopies with endobronchial valves performed at [facility]. Due to follow-up on 03/19/17. Discussed with Dr. Wilson. From pulmonary perspective, patient can be discharged. 2. Hypoxia: Resolved. 3. End-stage renal disease on hemodialysis Thursday/Thursday/Thursday: Management per nephrology. 4. Anemia, iron deficiency versus chronic kidney disease: Continue iron sulfate. Received transfusion of 2 units PRBCs on 02/22/17. 5. Malnutrition: Oral intake improving. Nepro 3 times a day. 6. Hypertension: Continue Norvasc, Coreg. 7. Hemorrhoidal bleeding: Avoid constipation. 8. DVT prophylaxis: SCDs. Discharge Planning Discharge home today after dialysis. Patient has appointment at [facility] tomorrow for evaluation of the pleural drain. If transitional outpatient dialysis cannot be arranged, patient is instructed to return to the hospital on Thursday for his regularly scheduled dialysis treatment. Davide Sifuentes MD Mar 18, 2017 14:04
--- NOTE | 2017-03-18 16:13 | HHI.IDPN ---
Subjective Subjective Remarks co drainage from posterior tube no fever off NC O2 Clx from drainage woth MDRO PSAE R to everything except aminoglycosides, Zerbaxa, Avicaz, colistine Antibiotics none since 03/10 Allergies: Coded Allergies: linezolid (Verified Adverse Reaction, Severe, 02/20/17) thrombocytopenia vancomycin (Verified Adverse Reaction, Intermediate, 02/20/17) red man's syndrome Objective . Vital Signs Date Time Temp Pulse Resp B/P (MAP) Pulse Ox O2 Delivery O2 Flow Rate FiO2 03/18/17 08:06 97.9 81 18 114/73 (87) 96 03/18/17 08:00 Room Air 03/18/17 05:00 97.7 80 16 131/67 (88) 94 03/17/17 23:58 98.7 87 16 112/72 (85) 96 03/17/17 20:00 98.1 90 16 137/85 (102) 92 03/17/17 20:00 Room Air 03/17/17 16:18 Room Air 03/18/17 03/18/17 03/19/17 15:00 23:00 07:00 Output Total 1400 ml Balance -1400 ml Hemodialysis 1400 ml . GRAM STAIN Final 03/12/17-1235 RARE EPITHELIAL CELL RARE WBC MANY GRAM VARIABLE RODS FLUID CULTURE Final 03/15/17-0858 HEAVY GROWTH PSEUDOMONAS AERUGINOSA MULTI-DRUG RESISTANT ORGANISM INFECTIOUS DISEASE PHYSICIAN CONSULT RECOMMENDED CEFTAZIDIME/AVIBACTAM: <=2 g/mL Please be advised that the methodology used is for Investigational Use Only in the [place] and has not been approved by the FDA. COLISTIN: <=2 g/mL Please be advised that the methodology used is for Investigational Use Only in the [place] and has not been approved by the FDA. CEFTOLOZANE/TAZOBACTAM: <=2 g/mL Please be advised that the methodology used is for Investigational Use Only in the [place] and has not been approved by the FDA. CONTINUED ON NEXT PAGE RUN DATE: 03/15/17 [facility] LAB LIVE PAGE 2 RUN TIME: [id number];[place] [address] DOCTOR REPORT PATIENT Patient: JUSTICE SIMON #[id number] (Continued) Specimen: [id number] Collected: 03/11/17 Received: 03/11/17 (Continued) Procedure Result Verified Site FLUID CULTURE Final (continued) 03/15/17 Verbal orders received with read-back confirmation to DR HENSLEY by ROXANNA MONROY at [address] [facility] RX --------- --- PIPERCILLIN/TAZOBACTAM >64 R CEFTAZIDIME >16 R CEFEPIME >16 R AZTREONAM >16 R IMIPENEM >8 R GENTAMICIN <4 S TOBRAMYCIN <4 S LEVOFLOXACIN >4 R Imaging Last Impressions Thyroid Ultrasound 02/25/17 0000 Signed Impressions: Service Date/Time: Saturday, February 25, 2017 13:26 - CONCLUSION: 1. Normal ultrasound examination of the thyroid gland. 2. Abnormal appearance of the left jugular vein with apparent flow adjacent to the jugular vein wall containing small amount of debris. Consider CTA/CTV examination for better characterization and to exclude possible AV fistula. Edenilson Villarreal MD Chest X-Ray 02/24/17 0000 Signed Impressions: Service Date/Time: Friday, February 24, 2017 14:46 - CONCLUSION: Dense infiltrate and with a cavity in the right upper lobe. Diffuse interstitial lung disease is unchanged. Central catheters in good position. Andre Montemayor MD Lung Scan-V Nuclear Medicine 02/22/17 0000 Signed Impressions: Service Date/Time: Wednesday, February 22, 2017 18:56 - CONCLUSION: Intermediate probability for pulmonary embolism. Vasu Barrientos MD Physical Exam CONSTITUTIONAL/GENERAL: This is a thin emaciated chroniclly ill appearing patient, in no apparent distress. TUBES/LINES/DRAINS: Permacath in place R chest - site looks OK L SCV central line - site OK NECK: mild soft not tender ill denined lump on L side of the neck SKIN: No jaundice, rashes, or lesions. . Skin temperature appropriate. Not diaphoretic. CARDIOVASCULAR: Regular rate and rhythm without murmurs, gallops, or rubs. No JVD. Peripheral pulses symmetric. RESPIRATORY/CHEST: Symmetric, unlabored respirations. R side with prominent rhonchi to auscultation. Decreased BS on R Breath sounds equal bilaterally. Dressing in place with no drainage staining GASTROINTESTINAL: Abdomen soft, non-tender, nondistended. No hepato-splenomegaly , or palpable masses. No guarding. Bowel sounds present. MUSCULOSKELETAL: Extremities without clubbing, cyanosis, or edema. No joint tenderness or effusion noted. No calf tenderness. No mottling or clubbing. NEUROLOGICAL: Awake and alert. Non focal PSYCHIATRIC: upset Assessment & Plan Remarks BP fistula and polimicrobial empyema : PSAE (MDRO) , MRSA, strep viridans and Sean frag sp CT drainage and endobronchial valve placement ESRD/HD Allergic to vancomycin, developped thrombocytopenia to zyvox reportedly worsening of drianage, but clinically well: afebrile, nl WBC suspected L carotid AV fistula - vasc ff Persistetn PSAE colonisation, now extreme MDRO will avoid abx treatment unless clinical signs of infectio or periopeerative OK to dc from [address] [address], MD Mar 18, 2017 16:13
--- NOTE | 2017-03-18 17:35 | HHI.PR ---
Subjective Remarks Less drainage from chest tubes on Right. Has MDRO Pseudomonas on Culture of drainage. Will go to [facility] on the . ID will hold off antibiotics for now. Off o2.. Will be Dialyzed. today. Objective Vital Signs Date Time Temp Pulse Resp B/P (MAP) Pulse Ox O2 Delivery O2 Flow Rate FiO2 03/18/17 08:06 97.9 81 18 114/73 (87) 96 03/18/17 08:00 Room Air 03/18/17 05:00 97.7 80 16 131/67 (88) 94 03/17/17 23:58 98.7 87 16 112/72 (85) 96 03/17/17 20:00 98.1 90 16 137/85 (102) 92 03/17/17 20:00 Room Air I/O 03/17/17 03/17/17 03/17/17 03/18/17 03/18/17 03/18/17 07:00 15:00 23:00 07:00 15:00 23:00 Intake Total 480 ml 720 ml 840 ml Output Total 800 ml 1400 ml Balance 480 ml -80 ml 840 ml -1400 ml Intake Oral 480 ml 720 ml 840 ml Output Urine Total 800 ml Hemodialysis 1400 ml # Voids 4 4 # Bowel Movements 0 1 0 Result Diagram: 03/16/1771903/16/17719 Objective Remarks IN GENERAL: This is a middle-aged thinly built white male who is pale and alert. HEAD, EYES, EARS, NOSE, AND THROAT: Head normocephalic. Pupils reactive. Tongue is moist. Throat was clear. NECK: Supple. No bruits or thyroid enlargement. CHEST: Decreased breath sounds over the right chest and Chest Tubes in place in Right chest.Few Crackles. HEART: The heart sounds are regular S1-S2. No murmur. ABDOMEN: The abdomen is soft, without masses or organomegaly or tenderness. Bowel sounds are active. EXTREMITIES: no edema. Peripheral pulses are diminished. NEUROLOGIC: Reflexes are 1+ with no gross motor deficits. SKIN: No lesions noted. No leg edema. Assessment and Plan Assessment and Plan IMPRESSION 1. Right bronchopleural fistula. 2. Empyema right chest. 3. Persistent air leak with history of pneumothorax. 4. COPD, chronic bronchitis or bronchiectasis. 5. End-stage renal disease on dialysis. Plan : 1. Will use O2 PRN at 2 L 2. Nebs BID Duoneb. 3. Thoracic surgery to see again 4. IS at bedside q2h. 5. Dressing change of right chest daily. 6. To [facility] on 03/19. 7. Will F/U in 1 week. Alison Wilson MD Mar 18, 2017 17:35
== END 2017-03-18 17:44 | disposition home or self-care (01) | DRG 177 ==
LOC: OBSVTOIN 23:00 → N04A 23:00
PROVIDERS: ADMIT Family Medicine; ATTEND Family Medicine
PROC: 5A1D70Z Performance of Urinary Filtration, Intermittent, Less than 6 Hours Per Day (ICD-10-PCS; principal; 2017-02-21)
PROC: 30233N1 Transfusion of Nonautologous Red Blood Cells into Peripheral Vein, Percutaneous Approach (ICD-10-PCS; 2017-02-22)
DX: J86.0 Pyothorax with fistula (principal); N18.6 End stage renal disease; E88.89 Other specified metabolic disorders; E46 Unspecified protein-calorie malnutrition; I12.0 Hypertensive chronic kidney disease with stage 5 chronic kidney disease or end stage renal disease; J44.0 Chronic obstructive pulmonary disease with (acute) lower respiratory infection; Z68.1 Body mass index [BMI] 19.9 or less, adult; J44.1 Chronic obstructive pulmonary disease with (acute) exacerbation; J84.10 Pulmonary fibrosis, unspecified; Z99.2 Dependence on renal dialysis; I25.10 Atherosclerotic heart disease of native coronary artery without angina pectoris; I25.2 Old myocardial infarction; M81.0 Age-related osteoporosis without current pathological fracture; F41.9 Anxiety disorder, unspecified; D50.9 Iron deficiency anemia, unspecified; B95.62 Methicillin resistant Staphylococcus aureus infection as the cause of diseases classified elsewhere; D63.1 Anemia in chronic kidney disease; K64.4 Residual hemorrhoidal skin tags; K57.90 Diverticulosis of intestine, part unspecified, without perforation or abscess without bleeding; Z95.1 Presence of aortocoronary bypass graft; Z87.11 Personal history of peptic ulcer disease; Z88.1 Allergy status to other antibiotic agents; Z87.891 Personal history of nicotine dependence; E87.6 Hypokalemia
CPT/HCPCS: 36430; 71010; 71020; 76536; 78582; 80048; 80053; 80069; 80074; 80076; 83540; 83550; 83735; 83880; 83970; 84132; 84443; 85014; 85018; 85025; 85610; 85730; 86403; 86850; 86900; 86901; 86920; 87040; 87070; 87077; 87186; 87205; 90935; 94640; 94664; 96374; 96375; A9540; A9567; J1580; J1644; J1756; J2185; J2920; J2997; J7030; J7512; J7613; P9016; Q4081

== ENCOUNTER 2017-03-24 12:19 | Emergency (ER) | payer SELFPAY ==
[~2017-03-24 12:19] MED LIST changes: +AMLO5 PO; +CORE25TA PO; +CYCL5TAB PO; -ENOX30P SQ; -PRED10 PO; +SPIRCAP INH
[2017-03-24 12:20] VITALS: BP 171/115; PULSE 112; RESP 16; TEMP 97.5; O2SAT 100
--- NOTE | 2017-03-24 12:58 | PD ---
HPI Chief Complaint: General Weakness Time Seen by Provider: 12:29 Travel History International Travel<30 days: No Contact w/Intl Traveler<30days: No Traveled to known affect area: No History of Present Illness HPI 56-year-old male requesting hemodialysis. Patient has history of end-stage renal disease on dialysis. Patient was seen by Dr. Zuluaga in the past and had dialysis at local nephrology clinic. Patient was admitted to [facility] and discharge 6 days ago with advised to follow-up outpatient for hemodialysis. Patient however does not have any insurance and unable to get an appointment for hemodialysis. Patient returned back to ED for further treatment. Patient denies any headache. Patient denies any chest pain or short as of breath. Patient denies abdominal pain. Patient denies any focal weakness or numbness of extremity. Patient has history of end-stage renal disease on dialysis, hypertension , CAD. Patient has PermCath in place. Patient states that he has a fistula however nonfunctional. Patient is still making urine. PFSH Past Medical History Asthma: Yes Anxiety: Yes Depression: No Cancer: No Cardiovascular Problems: Yes (CAD; PREVIOUS ARREST) Chest Pain: Yes COPD: Yes Coronary Artery Disease: Yes Endocrine: No Gastrointestinal Disorders: Yes Genitourinary: No Hypertension: Yes Immune Disorder: No Implanted Vascular Access Dvce: No Medical other: Yes (pseudomonas, MRSA) Musculoskeletal: Yes (severe osteoporosis) Neurologic: No Psychiatric: No Reproductive: No Respiratory: Yes (empyema) Immunizations Current: No Renal Failure: Yes Ulcer: Yes Past Surgical History AICD: No Arteriovenous Shunt: Yes (Left arm fistula) Body Medical Devices: CHEST PLATE AND TITATINUM WIRES Cardiac Surgery: Yes (THREE VESSEL BYPASS, attempted thoracotomy) Insulin Pump: No Joint Replacement: No Pacemaker: No Other Surgery: Yes (4 valves inserted into lungs ) Social History Alcohol Use: No Tobacco Use: No (quit MAY 17, 2013) Substance Use: No Allergies-Medications (Allergen,Severity, Reaction): Coded Allergies: linezolid (Verified Adverse Reaction, Severe, 02/20/17) thrombocytopenia vancomycin (Verified Adverse Reaction, Intermediate, 02/20/17) red man's syndrome Reported Meds & Prescriptions Reported Meds & Active Scripts Active Norvasc (Amlodipine Besylate) 5 Mg Tab 2.5 Mg PO DAILY C 500/Justine Hips (Ascorbic Acid) 500 Mg Tab 500 Mg PO BID@1200,1700 Renvela (Sevelamer Carbonate) 800 Mg Tab 1,600 Mg PO TIDAC Hydrocodone-Acetaminophen 5-325 mg Tab 1 Tab PO Q4H PRN Epogen Inj (Epoetin Joe) 4,000 Unit/Ml Inj 4,000 Units IV UNSCH PRN Heparin Inj (Heparin Sodium (Porcine)) 10,000 Units/10 Ml Inj 0 Units .XX UNSCH PRN Flexbumin Inj (Albumin Human) 0.25 Gm/Ml Soln 25 Gm IV UNSCH PRN Gentamicin Inj (Gentamicin Sulfate) 20 Mg/2 Ml Inj 20 Mg IV UNSCH PRN Reported Coreg (Carvedilol) 25 Mg Tab 25 Mg PO BID B Complex (B-Complex Vitamins) 1 Cap 1 Cap PO DAILY Review of Systems General / Constitutional: No: Fever Eyes: No: Visual changes HENT: No: Headaches Cardiovascular: No: Chest Pain or Discomfort Respiratory: No: Shortness of Breath Gastrointestinal: No: Abdominal Pain Genitourinary: No: Dysuria Musculoskeletal: No: Pain Skin: No Rash Neurologic: No: Weakness Psychiatric: No: Depression Endocrine: No: Polydipsia Hematologic/Lymphatic: No: Easy Bruising Physical Exam Narrative GENERAL: Well-nourished, well-developed patient. SKIN: Focused skin assessment warm/dry. HEAD: Normocephalic. EYES: No scleral icterus. No injection or drainage. NECK: Supple, trachea midline. No JVD or lymphadenopathy. CARDIOVASCULAR: Regular rate and rhythm without murmurs, gallops, or rubs. RESPIRATORY: Breath sounds equal bilaterally. No accessory muscle use. GASTROINTESTINAL: Abdomen soft, non-tender, nondistended. MUSCULOSKELETAL: No cyanosis, or edema. BACK: Nontender without obvious deformity. No CVA tenderness. Neurologic exam normal. Data Data Last Documented VS Vital Signs Date Time Temp Pulse Resp B/P (MAP) Pulse Ox O2 Delivery O2 Flow Rate FiO2 03/24/17 13:01 97 Room Air 03/24/17 12:20 97.5 112 16 Orders Orders Complete Blood Count With Diff (03/24/17 12:49) Comprehensive Metabolic Panel (03/24/17 12:49) Prothrombin Time / Inr (Pt) (03/24/17 12:49) Act Partial Throm Time (Ptt) (03/24/17 12:49) Magnesium (Mg) (03/24/17 12:49) Phosphorus (Po4) (03/24/17 12:49) Iv Access Insert/Monitor (03/24/17 12:49) Ecg Monitoring (03/24/17 12:49) Oximetry (03/24/17 12:49) Consult Nephrology (03/24/17 ) (Hub Use Only)Inp Phy Cons/Ref (03/24/17 ) Labs Laboratory Tests Test 03/24/17 12:56 White Blood Count 6.9 TH/MM3 Red Blood Count 3.17 MIL/MM3 Hemoglobin 9.7 GM/DL Hematocrit 30.0 % Mean Corpuscular Volume 94.7 FL Mean Corpuscular Hemoglobin 30.7 PG Mean Corpuscular Hemoglobin Concent 32.4 % Red Cell Distribution Width 20.0 % Platelet Count 223 TH/MM3 Mean Platelet Volume 8.8 FL Neutrophils (%) (Auto) 64.4 % Lymphocytes (%) (Auto) 20.9 % Monocytes (%) (Auto) 8.3 % Eosinophils (%) (Auto) 5.7 % Basophils (%) (Auto) 0.7 % Neutrophils # (Auto) 4.4 TH/MM3 Lymphocytes # (Auto) 1.4 TH/MM3 Monocytes # (Auto) 0.6 TH/MM3 Eosinophils # (Auto) 0.4 TH/MM3 Basophils # (Auto) 0.0 TH/MM3 CBC Comment DIFF FINAL Differential Comment Prothrombin Time 9.9 SEC Prothromb Time International Ratio 1.0 RATIO Activated Partial Thromboplast Time 25.2 SEC Blood Urea Nitrogen 43 MG/DL Creatinine 7.02 MG/DL Random Glucose 82 MG/DL Total Protein 7.4 GM/DL Albumin 2.7 GM/DL Calcium Level 8.7 MG/DL Phosphorus Level 7.9 MG/DL Magnesium Level 2.1 MG/DL Alkaline Phosphatase 55 U/L Aspartate Amino Transf (AST/SGOT) 31 U/L Alanine Aminotransferase (ALT/SGPT) 11 U/L Total Bilirubin 0.5 MG/DL Sodium Level 140 MEQ/L Potassium Level 4.4 MEQ/L Chloride Level 110 MEQ/L Carbon Dioxide Level 19.7 MEQ/L Anion Gap 10 MEQ/L Estimat Glomerular Filtration Rate 8 ML/MIN MDM Medical Decision Making Medical Screen Exam Complete: Yes Emergency Medical Condition: Yes Medical Record Reviewed: Yes Interpretation(s) 1457 PM. Bicarbonate 19.7. BUN 43. Creatinine 7.02. Phosphorus 7.9. Differential Diagnosis Differential diagnosis including end-stage renal disease on dialysis, electrolyte abnormality. Narrative Course 56-year-old male is here for hemodialysis. Patient has history of end-stage renal disease on dialysis however unable to go to local clinic for dialysis because of the insurance problem. I spoke with Dr. Zuluaga, advised medical admission and nephrology will be consulted for dialysis. Patient refuses admission. Patient wants to go home and come back tomorrow for dialysis. Diagnosis Primary Impression: End stage renal disease on dialysis Patient Instructions: General Instructions Additional Instructions: Patient is return to the ED tomorrow for dialysis. Patient was advised to find a local registered nursing professor for routine dialysis and not to come back to emergency room for nonemergent dialysis. Disposition: 01 DISCHARGE HOME Condition: Stable Regino Lynn MD Mar 24, 2017 12:58
[2017-03-24 13:01] VITALS: O2SAT 97
[2017-03-24 13:32] LABS: ALKALINE PHOSPHATASE 55 U/L (45-117); TOTAL BILIRUBIN ADULT 0.5 MG/DL (0.2-1.0); TOTAL PROTEIN 7.4 GM/DL (6.4-8.2)
[2017-03-24 13:33] LABS: ALBUMIN 2.7 GM/DL (3.4-5.0); ALT (GPT) 11 U/L (12-78); AST (GOT) 31 U/L (15-37); BICARBONATE 19.7 MEQ/L (21.0-32.0); CALCIUM 8.7 MG/DL (8.5-10.1); CHLORIDE 110 MEQ/L (98-107); CREATININE 7.02 MG/DL (0.60-1.30); GLOMERULAR FILTRATION RATE 8 ML/MIN (>89); GLUCOSE,RANDOM 82 MG/DL (74-106); MAGNESIUM 2.1 MG/DL (1.5-2.5); PHOSPHORUS 7.9 MG/DL (2.5-4.9); SODIUM (NA) 140 MEQ/L (136-145)
[2017-03-24 13:34] LABS: BLOOD UREA NITROGEN 43 MG/DL (7-18)
[2017-03-24 14:58] LABS: AUTOMATED NEUTROPHIL # 4.4 TH/MM3 (1.8-7.7); BASOPHIL % 0.7 % (0.0-2.0); EOSINOPHIL # 0.4 TH/MM3 (0-0.4); EOSINOPHIL % 5.7 % (0.0-4.0); HEMOGLOBIN 9.7 GM/DL (13.0-17.0); LYMPH % 20.9 % (9.0-44.0); LYMPHOCYTE # 1.4 TH/MM3 (1.0-4.8); MEAN CELL VOLUME 94.7 FL (80.0-100.0); MEAN CORPUSCULAR HEMOGLOBIN 30.7 PG (27.0-34.0); MEAN CORPUSCULAR HGB CONC 32.4 % (32.0-36.0); MEAN PLATELET VOLUME 8.8 FL (7.0-11.0); MONO % 8.3 % (0.0-8.0); MONOCYTE # 0.6 TH/MM3 (0-0.9); NEUT % 64.4 % (16.0-70.0); PLATELET COUNT 223 TH/MM3 (150-450); RED BLOOD COUNT 3.17 MIL/MM3 (4.50-5.90); WHITE BLOOD COUNT 6.9 TH/MM3 (4.0-11.0)
[2017-03-24 15:24] LABS: PROTHROMBIN TIME - PATIENT 9.9 SEC (9.8-11.6)
== END 2017-03-24 17:09 | disposition home or self-care (01) ==
LOC: NEPE 12:19
DX: I12.0 Hypertensive chronic kidney disease with stage 5 chronic kidney disease or end stage renal disease (principal); N18.6 End stage renal disease; I25.10 Atherosclerotic heart disease of native coronary artery without angina pectoris; Z99.2 Dependence on renal dialysis; Z87.891 Personal history of nicotine dependence
CPT/HCPCS: 80053; 83735; 84100; 85025; 85610; 85730; 99284